=== PATIENT | male | born 1950 | race Caucasian/White ===

== ENCOUNTER 2020-09-10 14:19 | Inpatient (IN) | payer MEDICARE, MEDICAID ==
[~2020-09-10] VITALS: Ht 185.4 cm; Wt 67.1 kg
[2020-09-10] VITALS (7 sets, daily range): BP systolic 85–130; BP diastolic 51–66
[2020-09-10] MEDS ORDERED: RISPERDAL1 MG PO (14:44)
[2020-09-10] MEDS ORDERED: ZOFRAN4 M3 ORAL (14:44)
[2020-09-10] MEDS ORDERED: LIDODERM700 M1 TOPIC (14:44)
[2020-09-10] MEDS ORDERED: FUROSEMIDE40 MG ORAL (14:44)
[2020-09-10] MEDS ORDERED: ACETAMINOPHEN325 M1 ORAL (14:44)
[2020-09-10] MEDS ORDERED: ENOXAPARIN40 MG/0.4 SUBQ (14:44)
[2020-09-10] MEDS ORDERED: DEPAKOTE ER500 MG ORAL (14:44)
--- NOTE | 2020-09-10 15:07 | Emergency Room Report ---
History of Present Illness General Chief Complaint: Fever Source: Patient, Medical Record Present Illness HPI 70-year-old male sent in by nursing facility after increased fever. Was noted to have prior history of chronic dementia as well as debilitation. Patient is reportedly blind. Had been having increased temperature reportedly had been more weak than usual. Was seen by paramedics and noted to be hypotensive. 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 COVID-19 Screening: Negative COVID-19 COVID-19 Testing Source: 09/02/20 Patient History Reviewed Nursing Documentation: PMH: Agreed; PSxH: Agreed Nursing Documentation-PMH Past Medical History: No History, Except For Physical Exam Vital Signs Date Time Temp Pulse Resp B/P (MAP) Pulse Ox O2 Delivery O2 Flow Rate FiO2 09/10/20 14:15 100.0 92 24 91/55 (67) 98 Room Air General Appearance: Chronically Ill Eyes: bilateral eye other - Pupillary dilation ENT: dry mucus membranes Neck: limited range of motion Respiratory: normal inspection, lungs clear Cardiovascular #1: normal inspection, regular rate, rhythm Gastrointestinal: normal inspection, non tender Genitourinary: other - Nontender, Musculoskeletal: decreased range of motion, other - Fractures Neurologic: motor weakness, aphasia Psychiatric: depressed affect Skin: no rash, other - sAcral decubitus ulcer Procedures Critical Care Time Critical Care Time Patient had a critical medical condition of sepsis which untreated could potentially result in life or limb threatening injury. Total critical care time excluding procedures approximately 45 minutes. Medical Decision Making Diagnostic Impression: Primary Impression: Fever Additional Impression: Severe sepsis ER Course Patient presented for increased fever. Differential diagnosis include was not limited to pneumonia, bronchitis, coronavirus infection, urinary tract infection, infected decubitus ulcer among others. Because of complexity of patient's case laboratory tests and imaging studies were ordered. Patient was noted to have potential sources for fever which include UTI and pneumonia. He is noted to be markedly debilitated to baseline. Patient had been sent in from rehab center on . Was noted to have prior history of psychosis and is baseline nonverbal. Patient was given IV fluids as well as IV antibiotics. Patient had normal blood pressure after IV fluids but initial been hypotensive. Patient was started on IV fluids as well as IV antibiotics. Laboratory testing was noted for marked elevation of BUN and creatinine consistent with volume depletion. Patient had markedly elevated white blood count and presumably septic. Unclear source.Dr. Patel Villasenor was contacted for inpatient management. Patient be admitted to the hospital for further evaluation and treatment. This medical record is generated with [employer] user experience designer software. There may be some user experience designer discrepancies related to use of this software Labs Test 09/10/20 15:36 09/10/20 15:57 White Blood Count 20.8 K/UL (4.8-10.8) Red Blood Count 4.92 M/UL (4.70-6.10) Hemoglobin 14.1 G/DL (14.2-18.0) Hematocrit 42.3 % (42.0-52.0) Mean Corpuscular Volume 86 FL (80-99) Mean Corpuscular Hemoglobin 28.7 PG (27.0-31.0) Mean Corpuscular Hemoglobin Concent 33.4 G/DL (32.0-36.0) Red Cell Distribution Width 13.5 % (11.6-14.8) Platelet Count 215 K/UL (150-450) Mean Platelet Volume 8.2 FL (6.5-10.1) Neutrophils (%) (Auto) % (45.0-75.0) Lymphocytes (%) (Auto) % (20.0-45.0) Monocytes (%) (Auto) % (1.0-10.0) Eosinophils (%) (Auto) % (0.0-3.0) Basophils (%) (Auto) % (0.0-2.0) Prothrombin Time 12.1 SEC (9.30-11.50) Prothromb Time International Ratio 1.1 (0.9-1.1) Activated Partial Thromboplast Time 21 SEC (23-33) Sodium Level 148 MMOL/L (136-145) Potassium Level 4.7 MMOL/L (3.5-5.1) Chloride Level 112 MMOL/L (98-107) Carbon Dioxide Level 28 MMOL/L (21-32) Anion Gap 8 mmol/L (5-15) Blood Urea Nitrogen 93 mg/dL (7-18) Creatinine 1.9 MG/DL (0.55-1.30) Estimat Glomerular Filtration Rate 35.3 mL/min (>60) Glucose Level 119 MG/DL (74-106) Lactic Acid Level 2.10 mmol/L (0.4-2.0) Calcium Level 8.9 MG/DL (8.5-10.1) Troponin I 0.000 ng/mL (0.000-0.056) Arterial Blood pH 7.484 (7.350-7.450) Arterial Blood Partial Pressure CO2 30.5 mmHg (35.0-45.0) Arterial Blood Partial Pressure O2 61.8 mmHg (75.0-100.0) Arterial Blood HCO3 22.4 mmol/L (22.0-26.0) Arterial Blood Oxygen Saturation 92.0 % (95-100) Arterial Blood Base Excess 0 (-2-2) Freddy Test Positive EKG Diagnostic Results Rate: normal Rhythm: NSR ST Segments: no acute changes Last Vital Signs Date Time Temp Pulse Resp B/P (MAP) Pulse Ox O2 Delivery O2 Flow Rate FiO2 09/10/20 14:15 100.0 92 24 91/55 (67) 98 Room Air Status: unchanged Disposition: ADMITTED INPATIENT Condition: Serious Yon Jj MD Sep 10, 2020 15:07
[2020-09-10] MEDS ORDERED: Cefepime HCl 2 GM in NS 110 ML IV ONE (15:15)
[2020-09-10] MEDS ORDERED: Vancomycin 1 GM in NS 275 ML IV ONE (15:15)
--- NOTE | 2020-09-10 15:30 | NUR ---
ED Nurse Note: Pt brought in by ambulance from [facility] d/t hypotension and fever. EMS reports 80s/40s and 100.1 fever. Pt is diaphoretic and tahcy on the monitor @ 108. Rectal temp 100 upon arrival. BP 89/52. IV established by EMS and fluids running. Respirations even and unlabored on room air. All other vitals stable as documented. A+Ox0, reacts to painful stimuli, does not follow commands or open eyes. Pt placed on monitor.
[2020-09-10 16:35] LABS: CALCIUM 8.9 MG/DL (8.5-10.1); CREATININE 1.9 MG/DL (0.55-1.30); POTASSIUM 4.7 MMOL/L (3.5-5.1)
[2020-09-10 16:41] LABS: HEMATOCRIT 42.3 % (42.0-52.0); HEMOGLOBIN 14.1 G/DL (14.2-18.0); MEAN CORPUSCULAR VOLUME 86 FL (80-99); PLATELET COUNT 215 K/UL (150-450); RED BLOOD COUNT 4.92 M/UL (4.70-6.10); RED CELL DISTRIBUTION WIDTH 13.5 % (11.6-14.8); WHITE BLOOD COUNT 20.8 K/UL (4.8-10.8)
[2020-09-10 16:47] LABS: INR 1.1 (0.9-1.1)
[2020-09-10] MEDS ORDERED: Acetaminophen 650 MG SUPP RECTAL ONE (17:00)
--- NOTE | 2020-09-10 17:00 | NUR ---
ED Nurse Note: Pt has rectal temp 100.2. ED MD aware. Tylenol supp ordered.
[2020-09-10 17:06] LABS: ALBUMIN 2.8 G/DL (3.4-5.0); ALBUMIN/GLOBULIN RATIO 0.6 (1.0-2.7); BILIRUBIN,TOTAL 0.6 MG/DL (0.2-1.0); CKMB 3.8 NG/ML (0.0-3.6); PHOSPHORUS 5.4 MG/DL (2.5-4.9)
--- NOTE | 2020-09-10 17:16 | NUR ---
ED Nurse Note: reflex lactic sent to lab.
--- NOTE | 2020-09-10 17:16 | NUR ---
ED Nurse Note: unable to get urine specimen at this time. ED MD aware.
--- NOTE | 2020-09-10 17:56 | Diagnostic Imaging Report ---
Indication: Shortness of breath Technique: One view of the chest Comparison: none Findings: There is some atelectasis at the left lung base as well as some consolidation. The pleural spaces are clear. The right lung is clear. The heart size is normal. Impression: Left basilar atelectasis and possible infiltrate. Correlate with clinical findings
--- NOTE | 2020-09-10 19:08 | NUR ---
HAND-OFF: Report given to ARTEMIO Zarco. Pt in stable condition; plan of care endorsed.
--- NOTE | 2020-09-10 19:10 | NUR ---
ED Nurse Note: Report received from ARTEMIO Inman.
--- NOTE | 2020-09-10 19:15 | NUR ---
ED Nurse Note: Patient had BP readings of 73/51 at 1907 and 85/51 at 1912. ERMD notified. Patient connected to media monitor. NSR with stable HR.
--- NOTE | 2020-09-10 19:40 | NUR ---
ED Nurse Note: While ERMD attempting to place central line, patient oxygen saturation dropped to 91/92%. Patient placed on 2L oxygen via NC.
--- NOTE | 2020-09-10 20:10 | NUR ---
ED Nurse Note: JENNA Jj unsuccessful with central line placement at this time.
--- NOTE | 2020-09-10 20:11 | NUR ---
ED Nurse Note: JENNA Jj placed andrade cath without complication. Urine sample obtained and sent to lab.
--- NOTE | 2020-09-10 20:20 | NUR ---
ED Nurse Note: Current BP is 92/62. Will administer 1L NS bolus as verbal ordered by JENNA Jj.
[2020-09-10 20:47] LABS: APPEARANCE,URINE CLOUDY; BILIRUBIN, URINE NEGATIVE (NEGATIVE); GLUCOSE, URINE (UA) NEGATIVE (NEGATIVE); KETONES,URINE 1+ (NEGATIVE); LEUKOCYTE ESTERASE ,URINE 1+ (NEGATIVE); NITRITE,URINE NEGATIVE (NEGATIVE); PH,URINE 5 (4.5-8.0); PROTEIN,URINE 2+ (NEGATIVE); UROBILINOGEN,URINE NORMAL MG/DL (0.0-1.0)
--- NOTE | 2020-09-10 20:50 | NUR ---
ED Nurse Note: Report given to ARTEMIO Mcclain.
--- NOTE | 2020-09-10 20:55 | NUR ---
ED Nurse Note: Patient taken to ICU unit at this time. He is nonverbal, moving extremities. No change in mental status from reported baseline. Patient taken to unit via gurney while connected to laboratory monitor by RN and water pollution control technician. COVID-19 precuations taken. Patient has NS infusing approx 500cc left, transferred to receiving RN. He has no belongings. IVs are patent and intact. Patient is breathing normal and unlabored at this time with stable o2 saturation on 2L oxygen via NC. Vital signs are stable at time of transfer to ICU unit. JENNA Jj is aware of patient BP that remains in the 90's systolic as documented. Receiving RN made aware of patient BP fluctuation. No acute distress or signs of pain. Patient transferred to ICU bed without complication. Continunity of care transferred to ARTEMIO Mcclain.
--- NOTE | 2020-09-10 21:15 | NUR ---
NURSE NOTES: Patient admitted to ICU for Severe Sepsis and PNA. Patient hooked to media monitor and showed NSR, HR in the 70s with pulses present. SpO3 while on NC 3L ranging around 89-95%. Patient is non-verbal does not track, response with painful stimuli, speech pattern is garbled. Patient came in with Peripheral IV catheter right Ac 18g and left wrist 20g. Placed patient on TKO for now. skin alterations noted. Rae catheter noted draining yellow urine with slight sediment noted. Urine cx and blood cx collected in ER and pending, VRE, MRSA and CRE collected in ER and pending, PCR COVID swab collected in ER and pending. Patient placed in Isolation pending COVID swabs. Bed in lowest position, bed alarm engaged, and locked, safety measures checks performed, will continue to monitor
[2020-09-10 21:19] LABS: COLOR,URINE YELLOW
--- NOTE | 2020-09-10 21:45 | NUR ---
NURSE NOTES: patient desats into the 80s. placed patient on venturi mask at 10L/50% FiO2. SpO2 went up to 97-100%. Patients BP is 130/55, HR is 82, RR 14-16.
--- NOTE | 2020-09-10 22:00 | NUR ---
NURSE NOTES: Received admission order from Dr. Villasenor. Patient remains on venturi mask Spo2 above 92%. RR 14-20. Blood pressures have remained stable. Will continue to monitor
[2020-09-11] VITALS (27 sets, daily range): BP systolic 102–142; BP diastolic 48–88
--- NOTE | 2020-09-11 | NUR ---
NURSE NOTES: Repositioned and performed oral care. Vitals remains stable 99.1F rectal temp. NS at 100ml hung. Abx given.
[2020-09-11] MEDS: Piperacillin/Tazobactam 3.375 GM in NS 110 ML IVPB SCH ×3 (01:31→17:38)
--- NOTE | 2020-09-11 02:00 | NUR ---
NURSE NOTES: NGT inserted, verified placement by two RNS, LEXY ordered for further verification. Patient remains on venturi mask. Blood pressure within normal limits. NSR on the monitor. Pulses present. Patient remains venturi mask at 50% FiO2. Patient remains passive, non-verbal, garbled speech. AAOX0-1.
--- NOTE | 2020-09-11 02:00 | NUR ---
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
[2020-09-11] MEDS: Depakote 125mg Sprinkles NG SCH ×2 (03:00→21:00)
--- NOTE | 2020-09-11 04:00 | NUR ---
NURSE NOTES: Bed bath given, L FA 18g inserted, labs drawn, remains on venturi mask 50% FIo2. NAD at this time. Repositioned and given oral care. Vitals remains stable,. Will continue to monitor.
--- NOTE | 2020-09-11 04:45 | Consultation ---
DATE OF CONSULTATION: 09/10/2020 CARDIOLOGY CONSULTATION CONSULTING PHYSICIAN: Madi Rios MD. REQUESTING PHYSICIAN: Jason Layne MD. REASON FOR CONSULTATION: Shock. HISTORY OF PRESENT ILLNESS: This 70-year-old male was referred to the emergency room with fevers. He was noted to be hypotensive. Cardiology consultation has been requested. History is obtained from records. PAST MEDICAL HISTORY: Includes psychiatric disorder, dementia and blindness. ALLERGIES: None known. MEDICATIONS: Reviewed and reconciled. FAMILY HISTORY: None known. SOCIAL HISTORY: No record of smoking or alcohol. No substance abuse. Resides at a alf facility. PHYSICAL EXAMINATION: VITAL SIGNS: Blood pressure 91/55, heart rate 92, respiratory rate 24, temperature 100, oxygen saturation on room air 98%. HEENT: Conjunctivae pink. Oropharynx clear. Mucous membranes dry. NECK: Supple. No adenopathy. LUNGS: Rales on the right. CARDIAC: Regular rhythm and rate. Normal S1, S2 with no murmur. ABDOMEN: Soft and nontender. EXTREMITIES: No edema. There is report of a sacral decubitus from nursing staff. NEUROLOGIC: Reveals blunted affect. The patient is withdrawn. LABORATORY AND DIAGNOSTIC DATA: Chest x-ray reveals right-sided infiltrate. EKG with sinus rhythm and no acute pathology. Urinalysis with too numerous to count red cells. Troponin 0. Sodium 148, potassium 4.7, chloride 112, bicarb 28, BUN 93, creatinine 1.9, lactic acid 2.1. White count 20.8, hemoglobin 14.1. IMPRESSION: 1. Sepsis. 2. Shock. 3. Hypovolemia. 4. Dehydration. 5. Possible urinary tract infection. 6. Healthcare-associated pneumonia. 7. Hypernatremia. 8. Acute kidney injury. 9. Critical and guarded. PLAN: Cardiac monitoring. Volume resuscitation with saline. Once euvolemic, hypotonic, fluids will be given. Pancultured. Broad-spectrum antimicrobials. No diuretics for now. Hold psychiatric therapy to avoid over-sedation. DVT prophylaxis. Followup metabolic profile. Further recommendations will follow. Madi Rios M.D. : KILEY/NA JOB#: [id number] CC:
--- NOTE | 2020-09-11 04:45 | Diagnostic Imaging Report ---
EXAM: XR Abdomen, 2 Views CLINICAL HISTORY: NGT TECHNIQUE: Frontal view of the abdomen/pelvis with upright view of the abdomen. COMPARISON: No relevant prior studies available. FINDINGS/IMPRESSION: Enteric tube in place with the tip in the gastric lumen. .
[2020-09-11 05:47] LABS: HEMATOCRIT 37.1 % (42.0-52.0); MEAN CORPUSCULAR VOLUME 90 FL (80-99); PLATELET COUNT 171 K/UL (150-450); RED BLOOD COUNT 4.11 M/UL (4.70-6.10); RED CELL DISTRIBUTION WIDTH 13.6 % (11.6-14.8); WHITE BLOOD COUNT 20.1 K/UL (4.8-10.8)
--- NOTE | 2020-09-11 06:00 | NUR ---
NURSE NOTES: Patient repositioned and given oral care. Vitals remains stable and patient remains afebrile. SpO2 at 100% RR 16. PAtient slightly restless, non-labored breathing, normal breathing pattern
[2020-09-11 06:11] LABS: ALBUMIN 2.3 G/DL (3.4-5.0); ALBUMIN/GLOBULIN RATIO 0.6 (1.0-2.7); BILIRUBIN,TOTAL 0.5 MG/DL (0.2-1.0); CALCIUM 7.9 MG/DL (8.5-10.1); CREATININE 1.3 MG/DL (0.55-1.30); POTASSIUM 3.6 MMOL/L (3.5-5.1)
--- NOTE | 2020-09-11 07:25 | NUR ---
NURSE NOTES: Patient received from ARTEMIO Mcclain. Pt is awake, opening eyes spontaneously, speech is garbled and incomprehensible. SR on bus driver/monitor. Pt on a venturi mask 50% 10L. Pt has a Rt Nares NGT, currently NPO. Pt has a andrade catheter draining with gravity to urometer. PIV Rt FA #20g and Lt FA #18g running 1/2 NS @ 100mL/hr. 2point wrist restraints remain in place for safety. Side rails upx2, call light within reach, bed low and locked.
[2020-09-11] MEDS: Vancomycin 1gm in D5W 275ml IVPB SCH (08:25)
[2020-09-11] MEDS: Heparin 5000 units/ml inj SUBQ SCH ×2 (08:25→21:00)
[2020-09-11] MEDS: Pantoprazole Inj IVP SCH (08:25)
[2020-09-11] MEDS ORDERED: Varibar Honey 250ml MC PRN (08:30)
[2020-09-11] MEDS ORDERED: Varibar Pudding 230ml MC PRN (08:30)
[2020-09-11] MEDS ORDERED: Varibar Thin Liquid powder 148gm MC PRN (08:30)
[2020-09-11] MEDS ORDERED: Varibar Nectar 240ml MC PRN (08:30)
--- NOTE | 2020-09-11 09:00 | NUR ---
NURSE NOTES: Dr Villasenor at bedside assessing pt. Updated him on pt's current condition.
--- NOTE | 2020-09-11 09:01 | NUR ---
NURSE NOTES: Dr Villasenor made aware of high sodium level. No new orders given at this time.
--- NOTE | 2020-09-11 10:50 | NUR ---
NURSE NOTES: Dr Collins at bedside assessing pt. Updated her on pt's current condition.
--- NOTE | 2020-09-11 11:12 | NUR ---
NURSE NOTES:WOUND ASSESSMENT PATIENT RESPONSIVE WHEN REPOSITIONED BUT UNABLE TO ASSIST NOTED SCABS TO LEFT ARM. NO DRAINAGE. BILATERAL BRUISING NOTED ON ARMS AND HANDS. COCCYX-DTI MEASURES 4.3X2.5CM. DARK PURPLE IN COLOR. RECOMMEND-CLEAN WITH SALINE, PAT DRY AND APPLY CALAZINE. COVER WITH OPTIFOAM DRESSING. REPLACE EVERY 3 DAYS OR NEEDED LEFT ISCHIUM- STAGE I PRESSURE ULCER MEASURES 4.5X1.7CM. NON-BLANCHABLE ERYTHEMA. RECOMMEND- APPLY CALAZINE AND COVER WITH OPTIFOAM DRESSING. REPLACE EVERY 7 DAYS. ALSO RECOMMEND- REPOSITION AT LEAST EVERY 2 HOURS OR TOLERATED. ELEVATE HEELS WITH PILLOWS CONTINUE WOUND PREVENTION PROTOCOLS
--- NOTE | 2020-09-11 11:15 | NUR ---
NURSE NOTES: Pt seen by wound care nurse.
--- NOTE | 2020-09-11 12:28 | NUR ---
SALES REPRESENTATIVE SUPERVISOR NOTE This SW is unable to obtain psychosocial information from pt. PT is from [facility]. SW left a vm to pt's emergency contact, Lauren Gomez [phone] for call back.
--- NOTE | 2020-09-11 12:30 | NUR ---
NURSE NOTES: Pt turned and repositioned. No distress noted. Pt remains on a venturi mask 50%.
--- NOTE | 2020-09-11 14:15 | Consultation ---
DATE OF CONSULTATION: 09/11/2020 INFECTIOUS DISEASE CONSULTATION CONSULTING PHYSICIAN: Martha Collins MD. REFERRING PHYSICIAN: Patel Villasenor MD. REASON FOR CONSULTATION: Fever. HISTORY OF PRESENTING ILLNESS: This is a 70-year-old gentleman with history of dementia and blindness, who comes in with fevers and he was found to be hypotensive. An Infectious Diseases consultation has been obtained for possible sepsis and fever. PAST MEDICAL HISTORY: 1. Psychiatry disorder. 2. Dementia. 3. Blindness. SOCIAL HISTORY: No history of smoking, alcohol, or drug use. FAMILY HISTORY: Unknown. REVIEW OF SYSTEMS: Unable to obtain currently. MEDICATIONS: As an inpatient, he is on subcutaneous heparin, Protonix, IV vancomycin, Depakote, Zosyn, Mylanta, Zofran, and Tylenol. ALLERGIES: No known drug allergies. PHYSICAL EXAMINATION: VITAL SIGNS: Temperature 98.5, T-max of 100.1, pulse 64, respiratory rate 16, blood pressure 111/88. O2 saturation of 100% on a Venturi mask of 12 liters of oxygen. HEENT: Pupils are equally reactive to light and accommodation. Mouth appears clean without thrush. NECK: Supple. No adenopathy. No JVD. CARDIOVASCULAR: Regular rate and rhythm. No murmurs. LUNGS: Clear to auscultation bilaterally. No crackles. No wheezes. ABDOMEN: Soft, nontender. No organomegaly. EXTREMITIES: No cyanosis, no clubbing, no edema. LABORATORY DATA: White count 20.1, hemoglobin 12, hematocrit 37.1, MCV 90, platelet count of 171,000, with neutrophils of 83%. Sodium 152, potassium 3.6, chloride 119, bicarb 25, BUN 79, creatinine 1.3. Glucose 104. Calcium 7.9. Total bilirubin 0.5. AST 28, ALT 19, alkaline phosphatase 60. Beta-natriuretic peptide 211. Total protein 6.3, albumin 2.3. UA is showing 5 to 10 white cells. COVID-19 test is negative. Chest x-ray is showing left base atelectasis and possible infiltrate. ASSESSMENT: This is a 70-year-old gentleman with history of psychiatric disorder and dementia, who comes in and is found to have fevers and has, 1. Pneumonia. His COVID-19 test is negative. 2. Dementia. 3. Leukocytosis. 4. Urinary tract infection. PLAN: 1. Continue IV vancomycin and Zosyn for now. 2. We will follow up cultures and adjust antibiotics accordingly. I would like to thank Dr. Harris for this consultation. Martha Collins M.D. DR: WIN JOB#: [id number] CC:
--- NOTE | 2020-09-11 14:30 | NUR ---
NURSE NOTES: Left message for Dr Collins to inform her of blood culture results. 2 out of 4 bottles gram positive cocci.
--- NOTE | 2020-09-11 16:23 | Diagnostic Imaging Report ---
Indication: Shortness of breath Technique: One view of the chest Comparison: 4 hours earlier Findings: There is suggestion of some left infrahilar infiltrate. This may be slightly increased from the prior study. The lungs and pleural spaces are otherwise clear. Impression: Slightly increased left infrahilar infiltrate
--- NOTE | 2020-09-11 16:30 | NUR ---
NURSE NOTES: Pt turned and repositioned. No distress noted.
--- NOTE | 2020-09-11 16:45 | History and Physical Report ---
DATE OF ADMISSION: 09/10/2020 REASON FOR ADMISSION: Shock, hypotension, and possible sepsis. HISTORY OF PRESENT ILLNESS: The patient is a 70-year-old male brought into the emergency room with fever. The patient was noted to be initially hypotensive, but this has improved. The patient overnight had vital signs improved with IV hydration. The patient has dementia, poor ability to give any history at this time. The patient apparently is a intermediate patient and is now admitted, was seen by Cardiology. [facility] medications will be resumed. PAST MEDICAL HISTORY: Notable for possible congestive heart failure, psychiatric history, underlying dementia. MEDICATIONS: Reviewed. ALLERGIES: Reviewed. SOCIAL HISTORY: [facility] patient. Further history is difficult to obtain. PHYSICAL EXAMINATION: GENERAL: The patient is a well-developed male, somewhat confused, but appears to be stable and resting. VITAL SIGNS: Blood pressure 120/77, pulse 70, temperature 98.5, respirations 15, O2 sats 100%. HEENT: Negative. NECK: Supple. No adenopathy. LUNGS: Moderate breath sounds. No rhonchi or wheezes. CARDIAC: S1 and S2. Regular rate and rhythm without murmurs. ABDOMEN: Soft, nontender, nondistended. EXTREMITIES: No cyanosis, clubbing, or edema. NEUROLOGICAL: Confused. LABORATORY DATA: Reviewed. White count 20, hemoglobin 12, platelets normal. Chemistry noted sodium of 142, BUN 39, creatinine 1.3, albumin is 2.3. IMPRESSION: 1. Acute renal failure. 2. Hypernatremia. 3. Leukocytosis. 4. Possible sepsis. 5. Hypotension. 6. Dementia. 7. Acute on chronic encephalopathy. RECOMMENDATIONS: Supportive care. IV hydration, hypotonic fluids, IV antibiotics. ID evaluation. Cardiology evaluation. Renal evaluation. Monitor clinically for further change in interventions. Stabilize and discharge the patient back to the intermediate when improved. Patel Villasenor M.D. DR: Yusuf JOB#: [id number] CC:
--- NOTE | 2020-09-11 16:45 | Consultation ---
DATE OF CONSULTATION: 09/11/2020 NEPHROLOGY CONSULTATION CONSULTING PHYSICIAN: Tess Schrader MD ATTENDING PHYSICIAN: Patel Villasenor MD REASON FOR CONSULTATION: Elevated BUN and creatinine. HISTORY OF PRESENT ILLNESS: This is a 70-year-old man with dementia, [facility] and [facility]. The patient is in ICU. I am asked to see the patient for elevation of BUN and creatinine. PAST MEDICAL HISTORY: 1. Organic brain syndrome. 2. Blindness. MEDICATIONS: IV fluids half NS, cefepime, metronidazole IV, Zosyn IV, IV vancomycin, Tylenol p.r.n., Depakote, Lasix, subcutaneous heparin, Mylanta p.r.n., Zofran p.r.n., Protonix, Risperdal. ALLERGIES: No known drug allergies. FAMILY HISTORY: Unable to obtain due to mental status. SOCIAL HISTORY: Unable to obtain due to mental status. REVIEW OF SYSTEMS: Unable to obtain due to mental status. PHYSICAL EXAMINATION: GENERAL: This is an elderly cachectic male, who is in no acute distress. VITAL SIGNS: Blood pressure 136/84, pulse 72 regular, respirations 18, temperature 98. HEENT: The head is normocephalic and atraumatic. The patient is blind. NECK: Supple. Trachea midline. There was no lymphadenopathy or thyromegaly. LUNGS: Clear to auscultation and percussion. HEART: Regular rate and rhythm without rubs, murmurs, or gallops. ABDOMEN: Soft and nontender. Bowel sounds were active. EXTREMITIES: No clubbing, cyanosis, or edema. NEUROLOGICAL: He is confused. There were no gross focal findings. LABORATORY AND ANCILLARY DATA: CBC shows white count 20,100, otherwise within normal limits. Serum chemistry, sodium 152, potassium 3.6, BUN 79, creatinine 1.3. Urinalysis, many bacteria, too numerous to count red blood cells. Abdominal x-ray showing an NG tube in place. Chest x-ray, left basilar atelectasis, possible infiltrates. ASSESSMENT: 1. Hypernatremia. 2. Pneumonia. 3. Organic brain syndrome. 4. Blindness. PLAN: 1. Continue IV fluids, change to hypotonic fluids. 2. Continue current therapy. Thank you, Dr. Villasenor, for letting me to participate in the care of this patient. Tess Schrader M.D. DR: MAKSIM JOB#: [id number] CC:
--- NOTE | 2020-09-11 17:30 | NUR ---
NURSE NOTES: Bedside swallow eval attempted. Pt not able to follow commands. Pt to remain NPO
[2020-09-11] MEDS: D5W w/KCl 20mEq 1,000 ML IV SCH (17:36)
--- NOTE | 2020-09-11 17:51 | NUR ---
Speech Pathology Note (Bedside Dysphagia Evaluation) [facility] Original: 08/20/2020 Diet Pureed and thin liquid. Brief Note: Mr. Roman is a 70 year old male B[facility] to ED [facility] 09/10/2020 around 14:00 due to fever. He was found to be hypotensive 91/55 (67), Temp: 100.0, leukocytosis 20.8k and subsequently transferred to ICU for septic shock. The blood culture is reportedly positive for gram positive cocci. NG tube was placed, KUB confirmed the placement to day. Pt is clinically stable with leukocytosis 20.1, improved BUN and creatine, stable hemodynamic without vasopressor. Findings: Mr. Roman is disoriented. He does ot follow commands at this time. Oral cavity is noted to be dried blood concretion likely from NG trauma. No active bleeding site is seen. Due to his level f alertness, already NG tube is in placed, PO trial was not done at this time. Interpretation: 1. Aspiration risk due to low level of alertness with sepsis 2. Probable NG trauma Plan: 1. NPO for now 2. oral care SANDBLASTER STONE will follow routinely to return to PO readiness Romario Abraham
--- NOTE | 2020-09-11 18:00 | NUR ---
NURSE NOTES: Pt fully cleaned and linens changed. BM noted. Pt currently on 2L NC. O2sat 100%
--- NOTE | 2020-09-11 18:29 | Consultation ---
History of Present Illness General Date patient seen: Sep 11, 2020 Reason for Hospitalization: Fever Present Illness HPI 70M presented from care facility with fevers, leukocytosis, and hypotensive noted to have abnormal labs and multiple skin abrasions, scabs, and skin concerns. BMI 19, alb low. Patient presented from facility on admission with above and surgery called to evaluate and assist with care. patient currently in ICU on fluids, abx, and support. no n/v. fevers resolved Allergies: Coded Allergies: No Known Allergies (Unverified , 09/10/20) COVID-19 Screening Contact w/high risk pt: Yes Experienced COVID-19 symptoms?: Yes Coronavirus symptoms experienc: Fever (T>100.4F or >38C), Chills, Shortness of Breath, Muscle or Body Aches Medication History Scheduled Divalproex Sodium* (Depakote Er*), 1,000 MG ORAL BEDTIME, (Reported) Enoxaparin Sodium (Enoxaparin Sodium*), 40 MG SUBQ DAILY, (Reported) Furosemide* (Lasix*), 40 MG ORAL DAILY, (Reported) Lidocaine Patch* (Lidoderm Patch*), 1 PATCH TOPIC DAILY, (Reported) Risperidone* (Risperdal*), 1 MG PO DAILY, (Reported) Scheduled PRN Acetaminophen* (Acetaminophen 325MG Tablet*), 650 MG ORAL Q4H PRN for fever, (Reported) Ondansetron* (Zofran*), 4 MG ORAL Q6H PRN for Nausea & Vomiting, (Reported) Patient History Limited by: age, medical condition History Provided By: Medical Record, PMD Healthcare decision maker Resuscitation status Advanced Directive on File Past Medical/Surgical History Past Medical/Surgical History: (1) Decubitus skin ulcer (2) Malnutrition (3) Open upper arm wound (4) Fever (5) Severe sepsis Review of Systems Review of Symptoms General ROS: no weight loss or fever Psychological ROS: no depression or mood changes, no memory loss Ophthalmic ROS: no visual changes or eye irritation ENT ROS: no nasal congestion, hearing loss, dizziness Allergy and Immunology ROS: no allergic symptoms or urticaria Hematological and Lymphatic ROS: no swollen glands, unusual bleeding or bruising Endocrine ROS: no polyuria, polydipsia, weight changes, temperature intolerance Respiratory ROS: no cough, shortness of breath, or wheezing Cardiovascular ROS: no chest pain or dyspnea on exertion Gastrointestinal ROS: denies abdominal pain, bright red blood in stool. Musculoskeletal ROS: no myalgias or arthralgias Neurological ROS: no TIA or stroke symptoms Dermatological ROS: no new or changing skin lesions, rashes or pruritis Physical Exam Physical Exam General appearance: cooperative, no distress, appears stated age Head: Normocephalic, without obvious abnormality, atraumatic Eyes: conjunctivae/corneas clear. PERRL, EOM's intact. Fundi benign Throat: Lips, mucosa, and tongue normal. Teeth and gums normal Neck: supple, symmetrical, trachea midline, no adenopathy, thyroid: not enlarged, symmetric, no tenderness/mass/nodules, no carotid bruit and no JVD Lungs: clear to auscultation bilaterally Heart: regular rate and rhythm, S1, S2 normal, no murmur, click, rub or gallop Abdomen: soft, non-tender. Bowel sounds normal. No masses, no organomegaly Extremities: extremities see below Pulses: 2+ and symmetric Skin: Skin see below Neurologic: Grossly normal Last 24 Hour Vital Signs Date Time Temp Pulse Resp B/P (MAP) Pulse Ox O2 Delivery O2 Flow Rate FiO2 09/11/20 17:00 68 19 117/78 (91) 100 09/11/20 16:30 64 18 107/74 (85) 100 09/11/20 16:00 Venturi Mask 10.0 09/11/20 16:00 67 09/11/20 16:00 99.1 65 16 123/71 (88) 100 09/11/20 15:00 72 18 136/84 (101) 100 09/11/20 14:30 67 15 121/76 (91) 100 09/11/20 14:00 65 16 122/71 (88) 100 09/11/20 13:00 65 17 122/79 (93) 100 09/11/20 12:00 66 09/11/20 12:00 98.5 71 17 123/72 (89) 100 09/11/20 12:00 Venturi Mask 10.0 09/11/20 11:00 64 16 111/88 (96) 100 09/11/20 10:00 67 15 113/68 (83) 100 09/11/20 09:00 79 18 131/73 (92) 100 11/24/20 08:27 100 Venturi Mask 12.0 50 09/11/20 08:00 Venturi Mask 10.0 09/11/20 08:00 98.5 70 15 120/77 (91) 100 09/11/20 08:00 70 09/11/20 07:00 71 16 117/62 (80) 100 09/11/20 06:00 75 16 112/62 (79) 100 09/11/20 05:00 70 21 102/73 (83) 100 09/11/20 04:00 79 09/11/20 04:00 98.4 76 16 115/59 (77) 100 09/11/20 04:00 Venturi Mask 10.0 09/11/20 03:00 75 18 123/67 (85) 100 09/11/20 02:00 65 15 142/78 (99) 100 09/11/20 01:00 68 13 103/48 (66) 98 09/11/20 00:00 Venturi Mask 10.0 09/11/20 00:00 99.1 71 24 106/56 (73) 99 09/11/20 00:00 62 09/10/20 23:00 15 103/56 (72) 100 09/10/20 22:03 75 18 130/55 (80) 96 09/10/20 21:28 84 09/10/20 21:27 Venturi Mask 10.0 09/10/20 21:15 99.0 80 20 118/66 (83) 95 09/10/20 20:55 97.1 83 20 94/59 97 Nasal Cannula 2.0 09/10/20 20:20 97.2 80 17 92/62 98 Nasal Cannula 2.0 09/10/20 20:17 97 Nasal Cannula 2.0 28 09/10/20 19:15 85 20 85/51 97 Room Air Intake and Output 09/10/20 09/11/20 19:00 07:00 Intake Total 3060.0 ml Output Total 860 ml Balance 2200.0 ml Intake Oral 0 ml Free Water 50 ml IV Total 3010.0 ml Output Urine Total 860 ml Laboratory Tests Test 09/10/20 20:05 09/11/20 03:45 09/11/20 08:27 Urine Color Yellow Urine Appearance Cloudy Urine pH 5 (4.5-8.0) Urine Specific [place] 1.025 (1.005-1.035) Urine Protein 2+ (NEGATIVE) H Urine Glucose (UA) Negative (NEGATIVE) Urine Ketones 1+ (NEGATIVE) H Urine Blood 5+ (NEGATIVE) H Urine Nitrite Negative (NEGATIVE) Urine Bilirubin Negative (NEGATIVE) Urine Urobilinogen Normal MG/DL (0.0-1.0) Urine Leukocyte Esterase 1+ (NEGATIVE) H Urine RBC Tntc /HPF (0 - 0) H Urine WBC 5-10 /HPF (0 - 0) H Urine Squamous Epithelial Cells None /LPF (NONE/OCC) Urine Bacteria Many /HPF (NONE) H White Blood Count 20.1 K/UL (4.8-10.8) H Red Blood Count 4.11 M/UL (4.70-6.10) L Hemoglobin 12.0 G/DL (14.2-18.0) L Hematocrit 37.1 % (42.0-52.0) L Mean Corpuscular Volume 90 FL (80-99) Mean Corpuscular Hemoglobin 29.2 PG (27.0-31.0) Mean Corpuscular Hemoglobin Concent 32.4 G/DL (32.0-36.0) Red Cell Distribution Width 13.6 % (11.6-14.8) Platelet Count 171 K/UL (150-450) Mean Platelet Volume 9.2 FL (6.5-10.1) Neutrophils (%) (Auto) % (45.0-75.0) Lymphocytes (%) (Auto) % (20.0-45.0) Monocytes (%) (Auto) % (1.0-10.0) Eosinophils (%) (Auto) % (0.0-3.0) Basophils (%) (Auto) % (0.0-2.0) Differential Total Cells Counted 100 Neutrophils % (Manual) 83 % (45-75) H Lymphocytes % (Manual) 7 % (20-45) L Monocytes % (Manual) 6 % (1-10) Eosinophils % (Manual) 0 % (0-3) Basophils % (Manual) 0 % (0-2) Band Neutrophils 4 % (0-8) Platelet Estimate Adequate Platelet Morphology Normal Hypochromasia 1+ Sodium Level 152 MMOL/L (136-145) H Potassium Level 3.6 MMOL/L (3.5-5.1) Chloride Level 119 MMOL/L (98-107) H Carbon Dioxide Level 25 MMOL/L (21-32) Anion Gap 9 mmol/L (5-15) Blood Urea Nitrogen 79 mg/dL (7-18) H Creatinine 1.3 MG/DL (0.55-1.30) Estimat Glomerular Filtration Rate 54.7 mL/min (>60) Glucose Level 104 MG/DL (74-106) Lactic Acid Level 1.40 mmol/L (0.4-2.0) Calcium Level 7.9 MG/DL (8.5-10.1) L Total Bilirubin 0.5 MG/DL (0.2-1.0) Aspartate Amino Transf (AST/SGOT) 28 U/L (15-37) Alanine Aminotransferase (ALT/SGPT) 19 U/L (12-78) Alkaline Phosphatase 60 U/L (46-116) Troponin I 0.001 ng/mL (0.000-0.056) Pro-B-Type Natriuretic Peptide 211 pg/mL (0-125) H Total Protein 6.3 G/DL (6.4-8.2) L Albumin 2.3 G/DL (3.4-5.0) L Globulin 4.0 g/dL Albumin/Globulin Ratio 0.6 (1.0-2.7) L Thyroid Stimulating Hormone (TSH) 1.568 uiU/mL (0.358-3.740) Random Vancomycin Level 9.6 ug/mL Arterial Blood pH 7.482 (7.350-7.450) Arterial Blood Partial Pressure CO2 30.9 mmHg (35.0-45.0) L Arterial Blood Partial Pressure O2 123.5 mmHg (75.0-100.0) H Arterial Blood HCO3 22.6 mmol/L (22.0-26.0) Arterial Blood Oxygen Saturation 98.5 % (95-100) Arterial Blood Base Excess -0.1 (-2-2) Freddy Test Positive Height (Feet): 5 Height (Inches): 7.00 Weight (Pounds): 121 Medications Current Medications Medications (Trade) Dose Ordered Sig/Aleksander Route PRN Reason Start Time Stop Time Status Last Admin Dose Admin Acetaminophen (Tylenol) 650 mg Q4H PRN NG Temp >100.5 09/10/20 23:15 10/10/20 23:14 Al Hydroxide/Mg Hydroxide (Mylanta) 30 ml Q4H PRN NG Constipation 09/11/20 00:15 10/10/20 23:14 Barium Sulfate (Varibar Honey) 250 ml NOW PRN RAD 09/11/20 08:30 09/14/20 08:21 Barium Sulfate (Varibar [place]) 240 ml NOW PRN RAD 09/11/20 08:30 09/14/20 08:21 Barium Sulfate (Varibar Pudding) 230 ml NOW PRN RAD 09/11/20 08:30 09/14/20 08:21 Barium Sulfate (Varibar Thin Liquid powder) 148 gm NOW PRN RAD 09/11/20 08:30 09/14/20 08:21 Dextrose/ Electrolytes 1,000 ml @ 75 mls/hr [id number] IV 09/11/20 17:00 10/11/20 16:59 09/11/20 17:36 Divalproex Sodium (Depakote Sprinkles) 1,000 mg BEDTIME NG 09/11/20 03:00 10/11/20 02:59 09/11/20 03:00 Heparin Sodium (Porcine) (Heparin 5000 units/ml) 5,000 units EVERY 12 HOURS SUBQ 09/11/20 09:00 10/26/20 08:59 09/11/20 08:25 Ondansetron HCl (Zofran) 4 mg Q6H PRN IVP Nausea & Vomiting 09/10/20 23:15 10/10/20 23:14 Pantoprazole (Protonix) 40 mg DAILY IVP 09/11/20 09:00 10/11/20 08:59 09/11/20 08:25 Piperacillin Sod/ Tazobactam Sod 3.375 gm/Sodium Chloride 110 ml @ 27.5 mls/hr Q8H IVPB 09/11/20 02:00 09/18/20 01:59 09/11/20 17:38 Vancomycin HCl (Vanco pharmacy to dose) 1 ea DAILY PRN MISC Per rx protocol 09/10/20 23:15 10/10/20 23:14 Vancomycin HCl 1 gm/Dextrose 275 ml @ 183.708 mls/hr Q24H IVPB 09/11/20 08:00 09/16/20 07:59 09/11/20 08:25 Assessment/Plan Problem List: (1) Fever ICD Codes: R50.9 - Fever, unspecified SNOMED: 886654943 (2) Decubitus skin ulcer Assessment & Plan: Patient identified on admission to have multiple scabs on the left arm. mild open scabs with eschar. no drainage. no significant cellulitis. bruising no bilateral extremities noted. no signs of abuse. likely from agitation Sacral coccygeal noted to have a DTI 4.3X2.5CM. which is dark purple . RECOMMEND-CLEAN WITH SALINE, PAT DRY AND APPLY CALAZINE. COVER WITH OPTIFOAM DRESSING. REPLACE EVERY 3 DAYS OR NEEDED LEFT ISCHIUM- STAGE I PRESSURE ULCER MEASURES 4.5X1.7CM. NON-BLANCHABLE ERYTHEMA. RECOMMEND- APPLY CALAZINE AND COVER WITH OPTIFOAM DRESSING. REPLACE EVERY 7 DAYS. Turn q2h off load pressure with pillow off load heels nutritional optimization NEUROLOGY PROFESSOR eval will follow with recs thank you ICD Codes: L89.90 - Pressure ulcer of unspecified site, unspecified stage SNOMED: 605063315 (3) Malnutrition Assessment & Plan: Mr. Roman is a 70 year old male [place] [facility] [place] 14:00 due to fever. He was found to be hypotensive 91/55 (67), Temp: 100.0, leukocytosis 20.8k and subsequently transferred to ICU for septic shock. The blood culture is reportedly positive for gram positive cocci. NG tube was placed, KUB confirmed the placement to day. Pt is clinically stable with leukocytosis 20.1, improved BUN and creatine, stable hemodynamic without vasopressor. Findings: Mr. Roman is disoriented. He does ot follow commands at this time. Oral cavity is noted to be dried blood concretion likely from NG trauma. No active bleeding site is seen. Due to his level f alertness, already NG tube is in placed, PO trial was not done at this time. Interpretation: 1. Aspiration risk due to low level of alertness with sepsis 2. Probable NG trauma Plan: 1. NPO for now 2. oral care ICD Codes: E46 - Unspecified protein-calorie malnutrition SNOMED: 86580635 (4) Severe sepsis ICD Codes: A41.9 - Sepsis, unspecified organism; R65.20 - Severe sepsis without septic shock SNOMED: 22715404 (5) Open upper arm wound ICD Codes: S41.109A - Unspecified open wound of unspecified upper arm, initial encounter SNOMED: 194974685 Aubrey Gutierrez Sep 11, 2020 18:29
--- NOTE | 2020-09-11 19:00 | NUR ---
NURSE HAND-OFF REPORT: Latest Vital Signs: Temperature 99.1 , Pulse 59 , B/P 117 /61 , Respiratory Rate 20 , O2 SAT 100 , Nasal Cannula, O2 Flow Rate 2.0 . Vital Sign Comment: EKG Rhythm: Sinus Rhythm Rhythm change?: N MD Notified?: - MD Response: Latest Schultz Fall Score: 50 Fall Risk: High Risk Safety Measures: Call light Within Reach, Bed Alarm Zone 1, Side Rails Side Rails x3, Bed position Low and Locked. Fall Precautions: Yellow Socks Door Sign Patient Fall Education Report given to ARTEMIO Mcclain.
--- NOTE | 2020-09-11 22:00 | NUR ---
NURSE NOTES: Patient assessed and was provided with oral care. Patient was repositioned and remains NSR on hall monitor. With pulses present. Patient remains on nasal cannula and is saturating at 97%. No respiratory distress observed. Blood pressure is with in good ranges. Patient neuro status remains the same. Patient speech is garbled. Some is understandable and some is not. ROM offered. Safety measures in check and will continue to monitor.
--- NOTE | 2020-09-11 23:00 | NUR ---
NURSE NOTES: Patient glucoses noted to be 105, patient has not reached BS goal, will move up by one algorithm, patient now in Algorithm 4. Patient is at 1units/hr. Addendum: 09/11/20 at 2352 by CHUCK SANCHEZ RN disregard this note
--- NOTE | 2020-09-11 23:52 | NUR ---
TRANSFER TO FLOOR: Patient transferred to Telemetry room 203-1 per . Report given to Scarlet ULLOA Patient trnafered without an inicident, Vital signs stable before transfer.
--- NOTE | 2020-09-12 00:10 | Cardiology Progress Note ---
Subjective DATE OF SERVICE: Sep 11, 2020 Responded to fluid challenges last nite; did not require pressors. Labs remain grossly abnormal with elev WBC and Na+. No SOB. Objective Last 24 Hour Vital Signs Date Time Temp Pulse Resp B/P (MAP) Pulse Ox O2 Delivery O2 Flow Rate FiO2 09/11/20 23:00 66 15 105/67 (80) 99 09/11/20 22:00 78 16 118/73 (88) 99 09/11/20 21:00 68 20 117/67 (84) 100 09/11/20 20:00 61 09/11/20 20:00 98.7 62 19 112/69 (83) 100 09/11/20 20:00 Nasal Cannula 2.0 09/11/20 19:31 100 Nasal Cannula 2.0 28 09/11/20 19:00 59 16 106/67 (80) 100 09/11/20 19:00 59 16 106/67 (80) 100 09/11/20 18:30 59 20 117/61 (79) 100 09/11/20 18:00 66 18 124/85 (98) 100 09/11/20 17:00 68 19 117/78 (91) 100 09/11/20 16:30 64 18 107/74 (85) 100 09/11/20 16:00 Nasal Cannula 2.0 09/11/20 16:00 67 09/11/20 16:00 99.1 65 16 123/71 (88) 100 09/11/20 15:00 72 18 136/84 (101) 100 09/11/20 14:30 67 15 121/76 (91) 100 09/11/20 14:00 65 16 122/71 (88) 100 09/11/20 13:00 65 17 122/79 (93) 100 09/11/20 12:00 66 09/11/20 12:00 98.5 71 17 123/72 (89) 100 09/11/20 12:00 Venturi Mask 10.0 09/11/20 11:00 64 16 111/88 (96) 100 09/11/20 10:00 67 15 113/68 (83) 100 09/11/20 09:00 79 18 131/73 (92) 100 09/11/20 08:27 100 Venturi Mask 12.0 50 09/11/20 08:00 Venturi Mask 10.0 09/11/20 08:00 98.5 70 15 120/77 (91) 100 09/11/20 08:00 70 09/11/20 07:00 71 16 117/62 (80) 100 09/11/20 06:00 75 16 112/62 (79) 100 09/11/20 05:00 70 21 102/73 (83) 100 09/11/20 04:00 79 09/11/20 04:00 98.4 76 16 115/59 (77) 100 09/11/20 04:00 Venturi Mask 10.0 09/11/20 03:00 75 18 123/67 (85) 100 09/11/20 02:00 65 15 142/78 (99) 100 09/11/20 01:00 68 13 103/48 (66) 98 ROS: no change from my evaluation of 09/10/20. HEENT: normal ENT inspection RHYTHM: NSR, ST LUNGS: rales right CARDIAC: normal rate, regular rhythm, normal S1 and S2 ABDOMEN: normal bowel sounds, soft, other - sacral decub Laboratory Tests Test 09/11/20 03:45 09/11/20 08:27 White Blood Count 20.1 K/UL (4.8-10.8) H Red Blood Count 4.11 M/UL (4.70-6.10) L Hemoglobin 12.0 G/DL (14.2-18.0) L Hematocrit 37.1 % (42.0-52.0) L Mean Corpuscular Volume 90 FL (80-99) Mean Corpuscular Hemoglobin 29.2 PG (27.0-31.0) Mean Corpuscular Hemoglobin Concent 32.4 G/DL (32.0-36.0) Red Cell Distribution Width 13.6 % (11.6-14.8) Platelet Count 171 K/UL (150-450) Mean Platelet Volume 9.2 FL (6.5-10.1) Neutrophils (%) (Auto) % (45.0-75.0) Lymphocytes (%) (Auto) % (20.0-45.0) Monocytes (%) (Auto) % (1.0-10.0) Eosinophils (%) (Auto) % (0.0-3.0) Basophils (%) (Auto) % (0.0-2.0) Differential Total Cells Counted 100 Neutrophils % (Manual) 83 % (45-75) H Lymphocytes % (Manual) 7 % (20-45) L Monocytes % (Manual) 6 % (1-10) Eosinophils % (Manual) 0 % (0-3) Basophils % (Manual) 0 % (0-2) Band Neutrophils 4 % (0-8) Platelet Estimate Adequate Platelet Morphology Normal Hypochromasia 1+ Sodium Level 152 MMOL/L (136-145) H Potassium Level 3.6 MMOL/L (3.5-5.1) Chloride Level 119 MMOL/L (98-107) H Carbon Dioxide Level 25 MMOL/L (21-32) Anion Gap 9 mmol/L (5-15) Blood Urea Nitrogen 79 mg/dL (7-18) H Creatinine 1.3 MG/DL (0.55-1.30) Estimat Glomerular Filtration Rate 54.7 mL/min (>60) Glucose Level 104 MG/DL (74-106) Lactic Acid Level 1.40 mmol/L (0.4-2.0) Calcium Level 7.9 MG/DL (8.5-10.1) L Total Bilirubin 0.5 MG/DL (0.2-1.0) Aspartate Amino Transf (AST/SGOT) 28 U/L (15-37) Alanine Aminotransferase (ALT/SGPT) 19 U/L (12-78) Alkaline Phosphatase 60 U/L (46-116) Troponin I 0.001 ng/mL (0.000-0.056) Pro-B-Type Natriuretic Peptide 211 pg/mL (0-125) H Total Protein 6.3 G/DL (6.4-8.2) L Albumin 2.3 G/DL (3.4-5.0) L Globulin 4.0 g/dL Albumin/Globulin Ratio 0.6 (1.0-2.7) L Thyroid Stimulating Hormone (TSH) 1.568 uiU/mL (0.358-3.740) Random Vancomycin Level 9.6 ug/mL Arterial Blood pH 7.482 (7.350-7.450) Arterial Blood Partial Pressure CO2 30.9 mmHg (35.0-45.0) L Arterial Blood Partial Pressure O2 123.5 mmHg (75.0-100.0) H Arterial Blood HCO3 22.6 mmol/L (22.0-26.0) Arterial Blood Oxygen Saturation 98.5 % (95-100) Arterial Blood Base Excess -0.1 (-2-2) Freddy Test Positive Microbiology Date/Time Source Procedure Growth Status 09/10/20 17:15 Rectum Received 09/10/20 16:00 Nasopharynx Coronavirus COVID-19 PCR ([facility]) - Final Complete 09/10/20 15:51 Blood Blood Culture - Preliminary Resulted 09/10/20 15:41 Blood Blood Culture - Preliminary Resulted Assessment/Plan Assessment/Plan Sepsis Leukocytosis Recovering shock Hypovolemia Dehydration/hypernatremia Acute myocardial ischemia Acute renal failure HC assoc PNA UTI CVA/dementia Remains CRITICAL & GUARDED IVF Antimicrobials Replace lytes DVT prophyl Cardiac monitoring Hypotonic IVF hydration Follow up lab studies Madi Rios MD Sep 12, 2020 00:10
[2020-09-12] MEDS: Piperacillin/Tazobactam 3.375 GM in NS 110 ML IVPB SCH ×3 (02:00→18:27)
--- NOTE | 2020-09-12 03:19 | NUR ---
NURSE NOTES: Received transfer from Stanley ULLOA at ICU.The patient is alert to tactile stimuli but was verbally unresponsive and will at time garble when talk to him.The patient is on 2 liters of oxygen NC well tolerated. He does not seem to exhibits any sign or symptoms of pain. The patient came with a bilateral soft wrist restrain due to agitations and irritability. He has poor skin integrity with a capillary refills of >4 secs. The patient has an NGT in place and was also noted with dried blood on the nose due to irritation fron a small sore. The left arm has an open wounds and a sacral DTI was also noted. Cardiac vance the patient is Sinus Rhythms. He has a Left FA 18g and a RFA 20g IV line running D5 1/2 NS @ 75 ml/hr patent and asymptomatic. The bed in low level, call light within easy reach and bedside rails up x3, bed alarm is on. will continue to monitor as indicated
--- NOTE | 2020-09-12 03:45 | NUR ---
NURSE NOTES: The patient was transferred from ICU and was noted with Hematuria draining from his Rae catheter. He took a heparin shot from the ICU. The left arm was also noted with multiple open sores. will continue to monitor.
[2020-09-12] MEDS: D5W w/KCl 20mEq 1,000 ML IV SCH ×3 (03:49→21:01)
[2020-09-12 04:00] VITALS: BP 120/48
--- NOTE | 2020-09-12 06:36 | NUR ---
NURSE NOTES: Received a report from the laboratory the patient is positive for MRSA NARES. Blood culture is also positive for staphylococci x2. Will followup with MD as indicated
[2020-09-12 07:14] LABS: HEMATOCRIT 37.5 % (42.0-52.0); HEMOGLOBIN 12.4 G/DL (14.2-18.0); MEAN CORPUSCULAR VOLUME 88 FL (80-99); PLATELET COUNT 196 K/UL (150-450); RED BLOOD COUNT 4.25 M/UL (4.70-6.10); RED CELL DISTRIBUTION WIDTH 13.2 % (11.6-14.8); WHITE BLOOD COUNT 16.1 K/UL (4.8-10.8)
--- NOTE | 2020-09-12 07:20 | NUR ---
NURSE HAND-OFF REPORT: Important Events on Shift:Noted with Hematuria Patient Status: Diet: Pending Orders: Pending Results/Labs: Pending MD notification: Latest Vital Signs: Temperature 98.1 , Pulse 67 , B/P 120 /48 , Respiratory Rate 18 , O2 SAT 98 , Nasal Cannula, O2 Flow Rate 2.0 . Vital Sign Comment: EKG Rhythm: Sinus Rhythm Rhythm change?: N MD Notified?: - MD Response: Latest Schultz Fall Score: 50 Fall Risk: High Risk Safety Measures: Call light Within Reach, Bed Alarm Zone 1, Side Rails Side Rails x3, Bed position Low and Locked. Fall Precautions: Yellow Socks Door Sign Patient Fall Education Report given to .
--- NOTE | 2020-09-12 07:25 | NUR ---
NURSE NOTES: Received report from ARTEMIO Watson. Received pt in bed asleep. Pt is alert and responsive to tactile stimuli. Pt with NC @2L, tolerating well. No pain or discomfort noted at this time. Pt. on bilateral soft restrain due to agitations and previous episode of pulling out medical devices Pt with Left FA 18g and a RFA 20g IV line running D5 1/2 NS @ 75 ml/hr patent and intact. Bed in lowest position, locked with side rails x2 up. Call light within reach.
[2020-09-12 07:41] LABS: ALANINE AMINOTRANSFERASE 19 U/L (12-78); ALBUMIN 2.3 G/DL (3.4-5.0); ALBUMIN/GLOBULIN RATIO 0.5 (1.0-2.7); ALKALINE PHOSPHATASE 62 U/L (46-116); ANION GAP 7 mmol/L (5-15); ASPARTATE AMINO TRANSFERASE 37 U/L (15-37); BILIRUBIN,TOTAL 0.5 MG/DL (0.2-1.0); BLOOD UREA NITROGEN 54 mg/dL (7-18); CALCIUM 8.5 MG/DL (8.5-10.1); CARBON DIOXIDE 25 MMOL/L (21-32); CHLORIDE 118 MMOL/L (98-107); CREATININE 1.1 MG/DL (0.55-1.30); POTASSIUM 3.5 MMOL/L (3.5-5.1); SODIUM 150 MMOL/L (136-145)
[2020-09-12 08:00] VITALS: BP 122/78
[2020-09-12] MEDS: Heparin 5000 units/ml inj SUBQ SCH (09:00)
[2020-09-12] MEDS: Pantoprazole Inj IVP SCH (09:19)
--- NOTE | 2020-09-12 09:41 | NUR ---
Speech Note (Dysphagia service follow up from 09/11/2020) Transferred out ICU last night. He is non on tele. Issues: multiple wounds, s.p balaji/nasal/pharyngeal bleeding with blood culture Gram positive cocci leukocytosis trending down from 20k-20k-16k BUN/Creatine trending down from 93/1.9-79/1.3-54/1.1 Temp: 98.1~98.7, Pulse: 62~72, BP: 105/67~120/48, SPO2 98~100% on 2 liter S: Oral cavity is better condition comparison to yesterday. The mucosa is severely erythema without active bleeding. Limited level of alertness for direct therapy. NG in placed O: 1. Laryngeal palpation to trigger spontaneous cough and swallow: Pt triggered cough with laryngeal palpation. Approximately 5~10 seconds after coughing, he triggered swallow. based on this observation, he presents with copious secretion in pharynx and larynx. He continued to have poor secretion management at laryngeal level at this time. NO PO trial was given due to poor secretion at the level of air way with low level of alertness. A: 1. Probable aspiration of his own secretion with poor ability to cough and swallow 2. Dysphagia P: 1. NPO for now 2. Observe his secretion, and level of alertness for PO readiness. Romario Abraham
[2020-09-12] MEDS: Vancomycin 1gm in D5W 275ml IVPB SCH (09:45)
--- NOTE | 2020-09-12 11:15 | Infectious Diseases Prog Note ---
Assessment/Plan Assessment/Plan antibiotics : vancomycin iv, zosyn A 1. Pneumonia COVID-19 test is negative. 2. Dementia. 3. Leukocytosis improving 4. Urinary tract infection 5. + blood cultures with coag neg staph likely contaminated P 1. continue zosyn 2. d/c iv vancomycin 3. will follow up cultures Subjective ROS Limited/Unobtainable: Yes Allergies: Coded Allergies: No Known Allergies (Unverified , 09/10/20) Objective Last 24 Hour Vital Signs Date Time Temp Pulse Resp B/P (MAP) Pulse Ox O2 Delivery O2 Flow Rate FiO2 09/12/20 08:00 97.6 69 19 122/78 (93) 99 09/12/20 08:00 Nasal Cannula 2.0 09/12/20 04:00 98.1 72 18 120/48 (72) 98 09/12/20 04:00 Nasal Cannula 2.0 09/12/20 04:00 67 09/12/20 00:00 72 09/12/20 00:00 Nasal Cannula 2.0 09/11/20 23:00 66 15 105/67 (80) 99 09/11/20 22:00 78 16 118/73 (88) 99 09/11/20 21:00 68 20 117/67 (84) 100 09/11/20 20:00 61 09/11/20 20:00 98.7 62 19 112/69 (83) 100 09/11/20 20:00 Nasal Cannula 2.0 09/11/20 19:31 100 Nasal Cannula 2.0 28 09/11/20 19:00 59 16 106/67 (80) 100 09/11/20 19:00 59 16 106/67 (80) 100 09/11/20 18:30 59 20 117/61 (79) 100 09/11/20 18:00 66 18 124/85 (98) 100 09/11/20 17:00 68 19 117/78 (91) 100 09/11/20 16:30 64 18 107/74 (85) 100 09/11/20 16:00 Nasal Cannula 2.0 09/11/20 16:00 67 09/11/20 16:00 99.1 65 16 123/71 (88) 100 09/11/20 15:00 72 18 136/84 (101) 100 09/11/20 14:30 67 15 121/76 (91) 100 09/11/20 14:00 65 16 122/71 (88) 100 09/11/20 13:00 65 17 122/79 (93) 100 09/11/20 12:00 66 09/11/20 12:00 98.5 71 17 123/72 (89) 100 09/11/20 12:00 Venturi Mask 10.0 Height (Feet): 5 Height (Inches): 7.00 Weight (Pounds): 121 Respiratory/Chest: lungs clear Cardiovascular: normal rate, regular rhythm, no gallop/murmur Abdomen: soft, non tender Extremities: no edema Microbiology Date/Time Source Procedure Growth Status 09/10/20 20:05 Urine,Clean Catch Urine Culture - Preliminary NO GROWTH Resulted 09/10/20 17:15 Rectum - Final NO CARBAPENEM-RESISTANT ENTEROBACTERI... Complete 09/10/20 17:15 Nasal Nares MRSA Culture - Final Staphylococcus Aureus - Mrsa Complete 09/10/20 16:00 Nasopharynx Coronavirus COVID-19 PCR (CARLIE) - Final Complete 09/10/20 15:51 Blood Blood Culture - Preliminary Staphylococcus Sp Coag Neg Resulted 09/10/20 15:41 Blood Blood Culture - Preliminary Staphylococcus Sp Coag Neg Resulted Laboratory Tests Test 09/12/20 06:09 White Blood Count 16.1 K/UL (4.8-10.8) H Red Blood Count 4.25 M/UL (4.70-6.10) L Hemoglobin 12.4 G/DL (14.2-18.0) L Hematocrit 37.5 % (42.0-52.0) L Mean Corpuscular Volume 88 FL (80-99) Mean Corpuscular Hemoglobin 29.1 PG (27.0-31.0) Mean Corpuscular Hemoglobin Concent 33.0 G/DL (32.0-36.0) Red Cell Distribution Width 13.2 % (11.6-14.8) Platelet Count 196 K/UL (150-450) Mean Platelet Volume 8.8 FL (6.5-10.1) Neutrophils (%) (Auto) % (45.0-75.0) Lymphocytes (%) (Auto) % (20.0-45.0) Monocytes (%) (Auto) % (1.0-10.0) Eosinophils (%) (Auto) % (0.0-3.0) Basophils (%) (Auto) % (0.0-2.0) Differential Total Cells Counted 100 Neutrophils % (Manual) 83 % (45-75) H Lymphocytes % (Manual) 5 % (20-45) L Monocytes % (Manual) 8 % (1-10) Eosinophils % (Manual) 4 % (0-3) H Basophils % (Manual) 0 % (0-2) Band Neutrophils 0 % (0-8) Platelet Estimate Adequate Platelet Morphology Normal Hypochromasia 1+ Sodium Level 150 MMOL/L (136-145) H Potassium Level 3.5 MMOL/L (3.5-5.1) Chloride Level 118 MMOL/L (98-107) H Carbon Dioxide Level 25 MMOL/L (21-32) Anion Gap 7 mmol/L (5-15) Blood Urea Nitrogen 54 mg/dL (7-18) H Creatinine 1.1 MG/DL (0.55-1.30) Estimat Glomerular Filtration Rate > 60 mL/min (>60) Glucose Level 114 MG/DL (74-106) H Calcium Level 8.5 MG/DL (8.5-10.1) Magnesium Level 2.9 MG/DL (1.8-2.4) H Total Bilirubin 0.5 MG/DL (0.2-1.0) Aspartate Amino Transf (AST/SGOT) 37 U/L (15-37) Alanine Aminotransferase (ALT/SGPT) 19 U/L (12-78) Alkaline Phosphatase 62 U/L (46-116) Total Protein 6.5 G/DL (6.4-8.2) Albumin 2.3 G/DL (3.4-5.0) L Globulin 4.2 g/dL Albumin/Globulin Ratio 0.5 (1.0-2.7) L Current Medications Medications (Trade) Dose Ordered Sig/Aleksander Route PRN Reason Start Time Stop Time Status Last Admin Dose Admin Acetaminophen (Tylenol) 650 mg Q4H PRN NG Temp >100.5 09/10/20 23:15 10/10/20 23:14 Al Hydroxide/Mg Hydroxide (Mylanta) 30 ml Q4H PRN NG Constipation 09/11/20 00:15 10/10/20 23:14 Barium Sulfate (Varibar Honey) 250 ml NOW PRN MC RAD 11/24/20 08:30 09/14/20 08:21 Barium Sulfate (Varibar Harding) 240 ml NOW PRN RAD 09/11/20 08:30 09/14/20 08:21 Barium Sulfate (Varibar Pudding) 230 ml NOW PRN RAD 09/11/20 08:30 09/14/20 08:21 Barium Sulfate (Varibar Thin Liquid powder) 148 gm NOW PRN RAD 09/11/20 08:30 09/14/20 08:21 Dextrose/ Electrolytes 1,000 ml @ 125 mls/hr Q8H IV 09/11/20 17:00 10/11/20 16:59 09/12/20 09:19 Divalproex Sodium (Depakote Sprinkles) 1,000 mg BEDTIME NG 09/11/20 03:00 10/11/20 02:59 09/11/20 21:00 Heparin Sodium (Porcine) (Heparin 5000 units/ml) 5,000 units EVERY 12 HOURS SUBQ 09/11/20 09:00 10/26/20 08:59 09/11/20 21:00 Ondansetron HCl (Zofran) 4 mg Q6H PRN IVP Nausea & Vomiting 09/10/20 23:15 10/10/20 23:14 Pantoprazole (Protonix) 40 mg DAILY IVP 09/11/20 09:00 10/11/20 08:59 09/12/20 09:19 Piperacillin Sod/ Tazobactam Sod 3.375 gm/Sodium Chloride 110 ml @ 27.5 mls/hr Q8H IVPB 09/11/20 02:00 09/18/20 01:59 09/12/20 09:18 Vancomycin HCl (Vanco pharmacy to dose) 1 ea DAILY PRN MISC Per rx protocol 09/10/20 23:15 10/10/20 23:14 Vancomycin HCl 1 gm/Dextrose 275 ml @ 183.708 mls/hr Q24H IVPB 09/11/20 08:00 09/16/20 07:59 09/12/20 09:45 Martha Collins MD Sep 12, 2020 11:15
[2020-09-12 12:00] VITALS: BP 110/69
--- NOTE | 2020-09-12 12:05 | Nephrology Progress Note ---
Assessment/Plan Plan TYRELL + Hypernatremia - Hypotonic IVF. Na 150 Sepsis iv abx Subjective Subjective Confused Objective Objective Last 24 Hour Vital Signs Date Time Temp Pulse Resp B/P (MAP) Pulse Ox O2 Delivery O2 Flow Rate FiO2 09/12/20 08:00 97.6 69 19 122/78 (93) 99 09/12/20 08:00 Nasal Cannula 2.0 09/12/20 04:00 98.1 72 18 120/48 (72) 98 09/12/20 04:00 Nasal Cannula 2.0 09/12/20 04:00 67 09/12/20 00:00 72 09/12/20 00:00 Nasal Cannula 2.0 09/11/20 23:00 66 15 105/67 (80) 99 09/11/20 22:00 78 16 118/73 (88) 99 09/11/20 21:00 68 20 117/67 (84) 100 09/11/20 20:00 61 09/11/20 20:00 98.7 62 19 112/69 (83) 100 09/11/20 20:00 Nasal Cannula 2.0 09/11/20 19:31 100 Nasal Cannula 2.0 28 09/11/20 19:00 59 16 106/67 (80) 100 09/11/20 19:00 59 16 106/67 (80) 100 09/11/20 18:30 59 20 117/61 (79) 100 09/11/20 18:00 66 18 124/85 (98) 100 09/11/20 17:00 68 19 117/78 (91) 100 09/11/20 16:30 64 18 107/74 (85) 100 09/11/20 16:00 Nasal Cannula 2.0 09/11/20 16:00 67 09/11/20 16:00 99.1 65 16 123/71 (88) 100 09/11/20 15:00 72 18 136/84 (101) 100 09/11/20 14:30 67 15 121/76 (91) 100 09/11/20 14:00 65 16 122/71 (88) 100 09/11/20 13:00 65 17 122/79 (93) 100 Intake and Output 09/11/20 09/12/20 19:00 07:00 Intake Total 1432.58 ml 1072.45 ml Output Total 1110 ml 255 ml Balance 322.58 ml 817.45 ml Free Water 100 ml IV Total 1432.58 ml 972.45 ml Output Urine Total 1110 ml 255 ml Laboratory Tests 09/12/20 06:09: White Blood Count 16.1H, Red Blood Count 4.25L, Hemoglobin 12.4L, Hematocrit 37.5L, Mean Corpuscular Volume 88, Mean Corpuscular Hemoglobin 29.1, Mean Corpuscular Hemoglobin Concent 33.0, Red Cell Distribution Width 13.2, Platelet Count 196, Mean Platelet Volume 8.8, Neutrophils (%) (Auto) , Lymphocytes (%) (Auto) , Monocytes (%) (Auto) , Eosinophils (%) (Auto) , Basophils (%) (Auto) , Differential Total Cells Counted 100, Neutrophils % (Manual) 83H, Lymphocytes % (Manual) 5L, Monocytes % (Manual) 8, Eosinophils % (Manual) 4H, Basophils % (Manual) 0, Band Neutrophils 0, Platelet Estimate Adequate, Platelet Morphology Normal, Hypochromasia 1+, Sodium Level 150H, Potassium Level 3.5, Chloride Level 118H, Carbon Dioxide Level 25, Anion Gap 7, Blood Urea Nitrogen 54H, Creatinine 1.1, Estimat Glomerular Filtration Rate > 60, Glucose Level 114H, Calcium Level 8.5, Magnesium Level 2.9H, Total Bilirubin 0.5, Aspartate Amino Transf (AST/SGOT) 37, Alanine Aminotransferase (ALT/SGPT) 19, Alkaline Phosphatase 62, Total Protein 6.5, Albumin 2.3L, Globulin 4.2, Albumin/Globulin Ratio 0.5L Height (Feet): 5 Height (Inches): 7.00 Weight (Pounds): 121 Objective Bilnd CV RR Lungs B Ronchi Abd SNT. BS + E No CCE Tess Schrader MD Sep 12, 2020 12:05
--- NOTE | 2020-09-12 12:09 | NUR ---
CASE MANAGEMENT:REVIEW 09/12/20 SI:SEPSIS. PNA. TYRELL 97.6 69 19 122/78 99% ON 2L/NC WBC+16.1 NA+150 BUN+54 IS: IVF@125/HR IV VANCOMYCIN Q24 IV ZOSYN Q8HRS IV PROTONIX QD : TELEMETRY STATUS [facility]
--- NOTE | 2020-09-12 12:45 | General Progress Note ---
Subjective ROS Limited/Unobtainable: Yes Allergies: Coded Allergies: No Known Allergies (Unverified , 09/10/20) Objective Last 24 Hour Vital Signs Date Time Temp Pulse Resp B/P (MAP) Pulse Ox O2 Delivery O2 Flow Rate FiO2 09/12/20 08:00 68 09/12/20 08:00 97.6 69 19 122/78 (93) 99 09/12/20 08:00 Nasal Cannula 2.0 09/12/20 04:00 98.1 72 18 120/48 (72) 98 09/12/20 04:00 Nasal Cannula 2.0 09/12/20 04:00 67 09/12/20 00:00 72 09/12/20 00:00 Nasal Cannula 2.0 09/11/20 23:00 66 15 105/67 (80) 99 09/11/20 22:00 78 16 118/73 (88) 99 09/11/20 21:00 68 20 117/67 (84) 100 09/11/20 20:00 61 09/11/20 20:00 98.7 62 19 112/69 (83) 100 09/11/20 20:00 Nasal Cannula 2.0 09/11/20 19:31 100 Nasal Cannula 2.0 28 09/11/20 19:00 59 16 106/67 (80) 100 09/11/20 19:00 59 16 106/67 (80) 100 09/11/20 18:30 59 20 117/61 (79) 100 09/11/20 18:00 66 18 124/85 (98) 100 09/11/20 17:00 68 19 117/78 (91) 100 09/11/20 16:30 64 18 107/74 (85) 100 09/11/20 16:00 Nasal Cannula 2.0 09/11/20 16:00 67 09/11/20 16:00 99.1 65 16 123/71 (88) 100 09/11/20 15:00 72 18 136/84 (101) 100 09/11/20 14:30 67 15 121/76 (91) 100 09/11/20 14:00 65 16 122/71 (88) 100 09/11/20 13:00 65 17 122/79 (93) 100 Intake and Output 09/11/20 09/12/20 19:00 07:00 Intake Total 1432.58 ml 1072.45 ml Output Total 1110 ml 255 ml Balance 322.58 ml 817.45 ml Free Water 100 ml IV Total 1432.58 ml 972.45 ml Output Urine Total 1110 ml 255 ml Laboratory Tests 09/12/20 06:09: White Blood Count 16.1H, Red Blood Count 4.25L, Hemoglobin 12.4L, Hematocrit 37.5L, Mean Corpuscular Volume 88, Mean Corpuscular Hemoglobin 29.1, Mean Corpuscular Hemoglobin Concent 33.0, Red Cell Distribution Width 13.2, Platelet Count 196, Mean Platelet Volume 8.8, Neutrophils (%) (Auto) , Lymphocytes (%) (Auto) , Monocytes (%) (Auto) , Eosinophils (%) (Auto) , Basophils (%) (Auto) , Differential Total Cells Counted 100, Neutrophils % (Manual) 83H, Lymphocytes % (Manual) 5L, Monocytes % (Manual) 8, Eosinophils % (Manual) 4H, Basophils % (Manual) 0, Band Neutrophils 0, Platelet Estimate Adequate, Platelet Morphology Normal, Hypochromasia 1+, Sodium Level 150H, Potassium Level 3.5, Chloride Level 118H, Carbon Dioxide Level 25, Anion Gap 7, Blood Urea Nitrogen 54H, Creatinine 1.1, Estimat Glomerular Filtration Rate > 60, Glucose Level 114H, Calcium Level 8.5, Magnesium Level 2.9H, Total Bilirubin 0.5, Aspartate Amino Transf (AST/SGOT) 37, Alanine Aminotransferase (ALT/SGPT) 19, Alkaline Phosphatase 62, Total Protein 6.5, Albumin 2.3L, Globulin 4.2, Albumin/Globulin Ratio 0.5L Height (Feet): 5 Height (Inches): 7.00 Weight (Pounds): 121 Objective WDWN NAD reduced breath sounds bilaterally without rhonchi or wheeze [id number] without MRG NABS nontender no HSM no CCE nonfocal remains confused Assessment/Plan Assessment/Plan: IMPRESSION: 1. Acute renal failure. 2. Hypernatremia. 3. Leukocytosis. 4. Possible sepsis. 5. Hypotension. 6. Dementia. 7. Acute on chronic encephalopathy. PLAN hydrate PT ID follow up cultures renal to see impression, plan, and exam edited and reviewed in detail care discussed with Patel Tesfaye MD Sep 12, 2020 12:45
[2020-09-12 16:00] VITALS: BP 112/97
--- NOTE | 2020-09-12 17:43 | Surgery Progress Note ---
Surgery Progress Note Subjective Additional Comments downgraded labs noted Objective Last 24 Hour Vital Signs Date Time Temp Pulse Resp B/P (MAP) Pulse Ox O2 Delivery O2 Flow Rate FiO2 09/12/20 16:00 98.1 73 20 112/97 (102) 98 09/12/20 16:00 Nasal Cannula 2.0 09/12/20 12:00 56 09/12/20 12:00 96.8 63 21 110/69 (83) 99 09/12/20 12:00 Nasal Cannula 2.0 09/12/20 08:00 68 09/12/20 08:00 97.6 69 19 122/78 (93) 99 09/12/20 08:00 Nasal Cannula 2.0 09/12/20 04:00 98.1 72 18 120/48 (72) 98 09/12/20 04:00 Nasal Cannula 2.0 09/12/20 04:00 67 09/12/20 00:00 72 09/12/20 00:00 Nasal Cannula 2.0 09/11/20 23:00 66 15 105/67 (80) 99 09/11/20 22:00 78 16 118/73 (88) 99 09/11/20 21:00 68 20 117/67 (84) 100 09/11/20 20:00 61 09/11/20 20:00 98.7 62 19 112/69 (83) 100 09/11/20 20:00 Nasal Cannula 2.0 09/11/20 19:31 100 Nasal Cannula 2.0 28 09/11/20 19:00 59 16 106/67 (80) 100 09/11/20 19:00 59 16 106/67 (80) 100 09/11/20 18:30 59 20 117/61 (79) 100 09/11/20 18:00 66 18 124/85 (98) 100 I&O Intake and Output 09/11/20 09/12/20 19:00 07:00 Intake Total 1432.58 ml 1072.45 ml Output Total 1110 ml 255 ml Balance 322.58 ml 817.45 ml Free Water 100 ml IV Total 1432.58 ml 972.45 ml Output Urine Total 1110 ml 255 ml Dressing: dry Cardiovascular: RSR Respiratory: decreased breath sounds Abdomen: soft, non-tender, present bowel sounds, other Extremities: no tenderness, no cyanosis Laboratory Tests Test 09/12/20 06:09 White Blood Count 16.1 K/UL (4.8-10.8) H Red Blood Count 4.25 M/UL (4.70-6.10) L Hemoglobin 12.4 G/DL (14.2-18.0) L Hematocrit 37.5 % (42.0-52.0) L Mean Corpuscular Volume 88 FL (80-99) Mean Corpuscular Hemoglobin 29.1 PG (27.0-31.0) Mean Corpuscular Hemoglobin Concent 33.0 G/DL (32.0-36.0) Red Cell Distribution Width 13.2 % (11.6-14.8) Platelet Count 196 K/UL (150-450) Mean Platelet Volume 8.8 FL (6.5-10.1) Neutrophils (%) (Auto) % (45.0-75.0) Lymphocytes (%) (Auto) % (20.0-45.0) Monocytes (%) (Auto) % (1.0-10.0) Eosinophils (%) (Auto) % (0.0-3.0) Basophils (%) (Auto) % (0.0-2.0) Differential Total Cells Counted 100 Neutrophils % (Manual) 83 % (45-75) H Lymphocytes % (Manual) 5 % (20-45) L Monocytes % (Manual) 8 % (1-10) Eosinophils % (Manual) 4 % (0-3) H Basophils % (Manual) 0 % (0-2) Band Neutrophils 0 % (0-8) Platelet Estimate Adequate Platelet Morphology Normal Hypochromasia 1+ Sodium Level 150 MMOL/L (136-145) H Potassium Level 3.5 MMOL/L (3.5-5.1) Chloride Level 118 MMOL/L (98-107) H Carbon Dioxide Level 25 MMOL/L (21-32) Anion Gap 7 mmol/L (5-15) Blood Urea Nitrogen 54 mg/dL (7-18) H Creatinine 1.1 MG/DL (0.55-1.30) Estimat Glomerular Filtration Rate > 60 mL/min (>60) Glucose Level 114 MG/DL (74-106) H Calcium Level 8.5 MG/DL (8.5-10.1) Magnesium Level 2.9 MG/DL (1.8-2.4) H Total Bilirubin 0.5 MG/DL (0.2-1.0) Aspartate Amino Transf (AST/SGOT) 37 U/L (15-37) Alanine Aminotransferase (ALT/SGPT) 19 U/L (12-78) Alkaline Phosphatase 62 U/L (46-116) Total Protein 6.5 G/DL (6.4-8.2) Albumin 2.3 G/DL (3.4-5.0) L Globulin 4.2 g/dL Albumin/Globulin Ratio 0.5 (1.0-2.7) L Plan Problems: (1) Fever (2) Decubitus skin ulcer Assessment & Plan: Patient identified on admission to have multiple scabs on the left arm. mild open scabs with eschar. no drainage. no significant cellulitis. bruising no bilateral extremities noted. no signs of abuse. likely from agitation Sacral coccygeal noted to have a DTI 4.3X2.5CM. which is dark purple . RECOMMEND-CLEAN WITH SALINE, PAT DRY AND APPLY CALAZINE. COVER WITH OPTIFOAM DRESSING. REPLACE EVERY 3 DAYS OR NEEDED LEFT ISCHIUM- STAGE I PRESSURE ULCER MEASURES 4.5X1.7CM. NON-BLANCHABLE ERYTHEMA. RECOMMEND- APPLY CALAZINE AND COVER WITH OPTIFOAM DRESSING. REPLACE EVERY 7 DAYS. Turn q2h off load pressure with pillow off load heels nutritional optimization PAD TUFTER eval will follow with recs thank you (3) Malnutrition Assessment & Plan: Mr. Roman is a 70 year old male BIBA to ED of [facility] [place] on 11/10/2019 around 14:00 due to fever. He was found to be hypotensive 91/55 (67), Temp: 100.0, leukocytosis 20.8k and subsequently transferred to ICU for septic shock. The blood culture is reportedly positive for gram positive cocci. NG tube was placed, KUB confirmed the placement to day. Pt is clinically stable with leukocytosis 20.1, improved BUN and creatine, stable hemodynamic without vasopressor. Findings: Mr. Roman is disoriented. He does ot follow commands at this time. Oral cavity is noted to be dried blood concretion likely from NG trauma. No active bleeding site is seen. Due to his level f alertness, already NG tube is in placed, PO trial was not done at this time. Transferred out ICU last night. He is non on tele. Issues: multiple wounds, s.p balaji/nasal/pharyngeal bleeding with blood culture Gram positive cocci leukocytosis trending down from 20k-20k-16k BUN/Creatine trending down from 93/1.9-79/1.3-54/1.1 Temp: 98.1~98.7, Pulse: 62~72, BP: 105/67~120/48, SPO2 98~100% on 2 liter S: Oral cavity is better condition comparison to yesterday. The mucosa is severely erythema without active bleeding. Limited level of alertness for direct therapy. NG in placed O: 1. Laryngeal palpation to trigger spontaneous cough and swallow: Pt tr iggered cough with laryngeal palpation. Approximately 5~10 seconds after coughing, he triggered swallow. based on this observation, he presents with copious secretion in pharynx and larynx. He continued to have poor secretion management at laryngeal level at this time. NO PO trial was given due to poor secretion at the level of air way with low level of alertness. A: 1. Probable aspiration of his own secretion with poor ability to cough and swallow 2. Dysphagia P: 1. NPO for now 2. Observe his secretion, and level of alertness for PO readiness. (4) Severe sepsis (5) Open upper arm wound Aubrey Gutierrez Sep 12, 2020 17:43
--- NOTE | 2020-09-12 19:15 | NUR ---
NURSE HAND-OFF REPORT: Important Events on Shift:Pt has hematuria, irrigate as needed per Dr. Brunson Patient Status: stable Diet: NPO Pending Orders: NA Pending Results/Labs:NA Pending MD notification:NA Latest Vital Signs: Temperature 98.1 , Pulse 60 , B/P 112 /97 , Respiratory Rate 20 , O2 SAT 98 , Nasal Cannula, O2 Flow Rate 2.0 . Vital Sign Comment: Stable EKG Rhythm: Sinus Rhythm Rhythm change?: N MD Notified?: - MD Response: Latest Shcultz Fall Score: 50 Fall Risk: High Risk Safety Measures: Call light Within Reach, Bed Alarm Zone 1, Side Rails Side Rails x3, Bed position Low and Locked. Fall Precautions: Yellow Socks Door Sign Patient Fall Education Report given to ARTEMIO Disla.
--- NOTE | 2020-09-12 19:20 | NUR ---
NURSE NOTES: Received report from ARTEMIO Constantino/ ARTEMIO Malloy. Pt asleep in bed, afebrile, arousable with tactile stimuli nad has no respiratory distress noted. ON Nasal cannula at 2lpm saturating at 98-100%. With right nares NGT intact and patent. with right adn left Forearms 20g IV line intact, patent and asymptomatic. With FC to urine bag draining hematuria. is aware already. With both soft wrist restraints. Skin is intact,. pulses are palpable. no paresthesia noted. Needs were attended. Call light within reach. bed rails are up and wheels are locked.Continue plan of care. Addendum: 09/13/20 at 035 by ROBERT Fine RN Pt was noted with dried blood from right nares NGT. No active bleeding ntoed. Pt VS is within normal limits. HGB and hct are WNL. Continue to monitor the patient. Addendum: 09/13/20 at 0358 by ROBERT Fine RN 2029- Charge nurse was made aware. Continue to monitor the patient.
[2020-09-12 20:00] VITALS: BP 101/64
--- NOTE | 2020-09-12 20:14 | Consultation ---
DATE OF CONSULTATION: 09/12/2020 CONSULTING PHYSICIAN: Levi Brunson MD REFERRING PHYSICIAN: Patel Villasenor MD REASON FOR CONSULTATION: For evaluation of gross hematuria. HISTORY OF PRESENT ILLNESS: This is a 70-year-old male. He is a [facility] a [place]it[place]. He was brought in because of hypotension, shock, and possible sepsis. He has dementia. Most of the history was obtained from the chart. Apparently at the time of admission, the Rae catheter was placed and there was gross hematuria noted. Urology evaluation is requested. PAST MEDICAL HISTORY: Significant for above. Also history of CHF, psychiatric disorder, dementia. PAST SURGICAL HISTORY: Unknown. MEDICATIONS: Current medication list in the hospital was reviewed. Patient is on Protonix, vancomycin, Zosyn, and Tylenol. ALLERGIES: No known drug allergies. SOCIAL HISTORY: Resident of a penitentiary. Smoking history is unknown. REVIEW OF SYSTEMS: Unable to obtain. FAMILY HISTORY: Unable to obtain. PHYSICAL EXAMINATION: GENERAL: Elderly male. VITAL SIGNS: Temperature is 98.1, blood pressure 112/97, pulse 73, respirations 60. GENITOURINARY: Rae catheter is in place. Urine is grossly dark bloody with some clots. LABORATORY DATA: UA on admission showed 2+ protein, too numerous to count rbc's, 5 wbc's, many bacteria. White count is 16.1, hemoglobin 12.4, platelets of 196. BUN is 54, creatinine 1.1, potassium 3.5. INR is 1.1. DIAGNOSTIC IMAGING STUDIES: The patient had an abdominal x-ray, which showed enteric tube in place. There was no renal imaging. IMPRESSION: 1. Gross hematuria. 2. Pyuria and possible UTI. 3. Proteinuria. 4. BPH. 5. Urinary retention. 6. Probable neurogenic bladder. 7. Possible sepsis. PLAN AND DISCUSSION: Again, the patient has a Rae catheter in place. He has gross hematuria, which may be secondary to UTI and Rae trauma. Rae catheter was irrigated and will be irrigated on a p.r.n. basis. His renal function is stable and will be monitored as his hemoglobin and hematocrit. We will follow up on any culture results. The urine culture is negative so far and his blood does show some coag-negative staph. We will consider renal imaging study and cystoscopy can be done electively once other medical issues are resolved. Again, the Rae was irrigated p.r.n. I will also add Flomax and Proscar and possible voiding trial in the near future. Thank you for this consultation. Levi Brunson M.D. DR: DONYA JOB#: [id number] CC:
[2020-09-12] MEDS: Depakote 125mg Sprinkles NG SCH (21:01)
[2020-09-12] MEDS: Tamsulosin 0.4mg cap ORAL SCH (21:01)
--- NOTE | 2020-09-12 22:41 | Cardiology Progress Note ---
Subjective DATE OF SERVICE: Sep 12, 2020 BP responded to fluid challenges on admit; did not require pressors. Labs remain grossly abnormal with elev WBC and Na+; patient remains on hypotonic IVF. No SOB. Objective Last 24 Hour Vital Signs Date Time Temp Pulse Resp B/P (MAP) Pulse Ox O2 Delivery O2 Flow Rate FiO2 09/12/20 20:00 Nasal Cannula 2.0 09/12/20 20:00 65 09/12/20 20:00 99.0 55 20 101/64 (76) 98 09/12/20 16:00 60 09/12/20 16:00 98.1 73 20 112/97 (102) 98 09/12/20 16:00 Nasal Cannula 2.0 09/12/20 12:00 56 09/12/20 12:00 96.8 63 21 110/69 (83) 99 09/12/20 12:00 Nasal Cannula 2.0 09/12/20 08:00 68 09/12/20 08:00 97.6 69 19 122/78 (93) 99 09/12/20 08:00 Nasal Cannula 2.0 09/12/20 04:00 98.1 72 18 120/48 (72) 98 09/12/20 04:00 Nasal Cannula 2.0 09/12/20 04:00 67 09/12/20 00:00 72 09/12/20 00:00 Nasal Cannula 2.0 09/11/20 23:00 66 15 105/67 (80) 99 ROS: no change from my evaluation of 09/10/20. HEENT: normal ENT inspection RHYTHM: NSR, ST LUNGS: rales right CARDIAC: normal rate, regular rhythm, normal S1 and S2 ABDOMEN: normal bowel sounds, soft, other - sacral decub Laboratory Tests Test 09/12/20 06:09 White Blood Count 16.1 K/UL (4.8-10.8) H Red Blood Count 4.25 M/UL (4.70-6.10) L Hemoglobin 12.4 G/DL (14.2-18.0) L Hematocrit 37.5 % (42.0-52.0) L Mean Corpuscular Volume 88 FL (80-99) Mean Corpuscular Hemoglobin 29.1 PG (27.0-31.0) Mean Corpuscular Hemoglobin Concent 33.0 G/DL (32.0-36.0) Red Cell Distribution Width 13.2 % (11.6-14.8) Platelet Count 196 K/UL (150-450) Mean Platelet Volume 8.8 FL (6.5-10.1) Neutrophils (%) (Auto) % (45.0-75.0) Lymphocytes (%) (Auto) % (20.0-45.0) Monocytes (%) (Auto) % (1.0-10.0) Eosinophils (%) (Auto) % (0.0-3.0) Basophils (%) (Auto) % (0.0-2.0) Differential Total Cells Counted 100 Neutrophils % (Manual) 83 % (45-75) H Lymphocytes % (Manual) 5 % (20-45) L Monocytes % (Manual) 8 % (1-10) Eosinophils % (Manual) 4 % (0-3) H Basophils % (Manual) 0 % (0-2) Band Neutrophils 0 % (0-8) Platelet Estimate Adequate Platelet Morphology Normal Hypochromasia 1+ Sodium Level 150 MMOL/L (136-145) H Potassium Level 3.5 MMOL/L (3.5-5.1) Chloride Level 118 MMOL/L (98-107) H Carbon Dioxide Level 25 MMOL/L (21-32) Anion Gap 7 mmol/L (5-15) Blood Urea Nitrogen 54 mg/dL (7-18) H Creatinine 1.1 MG/DL (0.55-1.30) Estimat Glomerular Filtration Rate > 60 mL/min (>60) Glucose Level 114 MG/DL (74-106) H Calcium Level 8.5 MG/DL (8.5-10.1) Magnesium Level 2.9 MG/DL (1.8-2.4) H Total Bilirubin 0.5 MG/DL (0.2-1.0) Aspartate Amino Transf (AST/SGOT) 37 U/L (15-37) Alanine Aminotransferase (ALT/SGPT) 19 U/L (12-78) Alkaline Phosphatase 62 U/L (46-116) Total Protein 6.5 G/DL (6.4-8.2) Albumin 2.3 G/DL (3.4-5.0) L Globulin 4.2 g/dL Albumin/Globulin Ratio 0.5 (1.0-2.7) L Microbiology Date/Time Source Procedure Growth Status 09/10/20 20:05 Urine,Clean Catch Urine Culture - Preliminary NO GROWTH Resulted 09/10/20 17:15 Rectum - Final NO CARBAPENEM-RESISTANT ENTEROBACTERI... Complete 09/10/20 17:15 Nasal Nares MRSA Culture - Final Staphylococcus Aureus - Mrsa Complete 09/10/20 16:00 Nasopharynx Coronavirus COVID-19 PCR (CARLIE) - Final Complete 09/10/20 15:51 Blood Blood Culture - Preliminary Staphylococcus Sp Coag Neg Resulted 09/10/20 15:41 Blood Blood Culture - Preliminary Staphylococcus Sp Coag Neg Resulted Assessment/Plan Assessment/Plan Sepsis Leukocytosis Recovering shock Hypovolemia Dehydration/hypernatremia Acute myocardial ischemia Acute renal failure HC assoc PNA UTI CVA/dementia Remains CRITICAL & GUARDED Antimicrobials Replace lytes as needed DVT prophyl Cardiac monitoring Hypotonic IVF hydration Follow up lab studies Madi Rios MD Sep 12, 2020 22:41
[2020-09-13] VITALS: BP_SYST 101; BP_SYST 109; BP_DIAS 56; BP_DIAS 62
[2020-09-13] MEDS: Piperacillin/Tazobactam 3.375 GM in NS 110 ML IVPB SCH ×3 (01:05→17:34)
--- NOTE | 2020-09-13 01:30 | NUR ---
NURSE NOTES: Pt was given partial bed bath. gown and linen were changed. Pt tolerated well. Continue to monitor the patient
[2020-09-13] MEDS: D5W w/KCl 20mEq 1,000 ML IV SCH ×3 (03:39→17:34)
[2020-09-13 04:00] VITALS: BP 101/56
--- NOTE | 2020-09-13 05:50 | NUR ---
NURSE NOTES: Pt asleep in bed and no respiratory distress noted. Continue to monitor the patient.
[2020-09-13 07:23] LABS: BASOPHILS % (AUTO) 0.6 % (0.0-2.0); EOSINOPHILS % (AUTO) 1.4 % (0.0-3.0); HEMATOCRIT 30.7 % (42.0-52.0); HEMOGLOBIN 10.4 G/DL (14.2-18.0); LYMPHOCYTES % (AUTO) 11.1 % (20.0-45.0); MEAN CORPUSCULAR VOLUME 84 FL (80-99); NEUTROPHILS % (AUTO) 77.9 % (45.0-75.0); PLATELET COUNT 163 K/UL (150-450); RED BLOOD COUNT 3.64 M/UL (4.70-6.10); RED CELL DISTRIBUTION WIDTH 13.4 % (11.6-14.8); WHITE BLOOD COUNT 8.6 K/UL (4.8-10.8)
--- NOTE | 2020-09-13 07:30 | NUR ---
NURSE HAND-OFF REPORT: Important Events on Shift: dried blood on right nares Patient Status: stable Diet: npo Pending Orders: n Pending Results/Labs:n Pending MD notification:n Latest Vital Signs: Temperature 99.5 , Pulse 55 , B/P 101 /56 , Respiratory Rate 20 , O2 SAT 98 , Nasal Cannula, O2 Flow Rate 2.0 . Vital Sign Comment:n EKG Rhythm: Sinus Rhythm Rhythm change?: Y MD Notified?: N - MD Response: Latest Schultz Fall Score: 50 Fall Risk: High Risk Safety Measures: Call light Within Reach, Bed Alarm Zone 1, Side Rails Side Rails x3, Bed position Low and Locked. Fall Precautions: Yellow Socks Door Sign Patient Fall Education Report given to ARTEMIO Patino. Endorsed to ffup any feeding formula to start and right nares dried blood.
--- NOTE | 2020-09-13 07:31 | NUR ---
NURSE NOTES: Received patient in bed asleep. O2 via NC at 2LPM in place. Bialteral soft wrist restraints in place, peripheral pulses palpable, no skin issues noted on site. NG tube intact. FC intact, draining dark orange urine. HOB elevated. Bed locked in low position. Call light within reach. Will continue plan of care.
[2020-09-13 08:00] VITALS: BP 102/61
--- NOTE | 2020-09-13 08:31 | General Progress Note ---
Subjective Allergies: Coded Allergies: No Known Allergies (Unverified , 09/10/20) Subjective remains confused on oxygen Objective Last 24 Hour Vital Signs Date Time Temp Pulse Resp B/P (MAP) Pulse Ox O2 Delivery O2 Flow Rate FiO2 09/13/20 08:00 96.8 61 21 102/61 (75) 95 09/13/20 04:00 99.5 55 20 101/56 (71) 98 09/13/20 03:35 58 09/13/20 00:00 99.2 65 20 109/62 (78) 98 09/12/20 23:37 64 09/12/20 20:05 98 Nasal Cannula 2.0 28 09/12/20 20:00 Nasal Cannula 2.0 09/12/20 20:00 65 09/12/20 20:00 99.0 55 20 101/64 (76) 98 09/12/20 16:00 60 09/12/20 16:00 98.1 73 20 112/97 (102) 98 09/12/20 16:00 Nasal Cannula 2.0 09/12/20 12:00 56 09/12/20 12:00 96.8 63 21 110/69 (83) 99 09/12/20 12:00 Nasal Cannula 2.0 Intake and Output 09/12/20 09/13/20 19:00 07:00 Intake Total 1733.0 ml Output Total 50 ml 700 ml Balance -50 ml 1033.0 ml IV Total 1733.0 ml Output Urine Total 50 ml 700 ml Laboratory Tests 09/13/20 07:00: White Blood Count 8.6, Red Blood Count 3.64L, Hemoglobin 10.4L, Hematocrit 30.7L , Mean Corpuscular Volume 84, Mean Corpuscular Hemoglobin 28.7, Mean Corpuscular Hemoglobin Concent 34.0, Red Cell Distribution Width 13.4, Platelet Count 163, Mean Platelet Volume 9.5, Neutrophils (%) (Auto) 77.9H, Lymphocytes (%) (Auto) 11.1L, Monocytes (%) (Auto) 9.0, Eosinophils (%) (Auto) 1.4, Basophils (%) (Auto) 0.6, Sodium Level [Pending], Potassium Level [Pending], Chloride Level [Pending], Carbon Dioxide Level [Pending], Blood Urea Nitrogen [Pending], Creatinine [Pending], Estimat Glomerular Filtration Rate [Pending], Glucose Level [Pending], Calcium Level [Pending], Total Bilirubin [Pending], Aspartate Amino Transf (AST/SGOT) [Pending], Alanine Aminotransferase (ALT/SGPT) [Pending], Alkaline Phosphatase [Pending], Total Protein [Pending], Albumin [Pending], Globulin [Pending], Vancomycin Level Trough 8.0 Height (Feet): 5 Height (Inches): 7.00 Weight (Pounds): 121 Objective WDWN NAD reduced breath sounds bilaterally without rhonchi or wheeze [id number] without MRG NABS nontender no HSM no CCE nonfocal remains confused Assessment/Plan Assessment/Plan: IMPRESSION: 1. Acute renal failure. 2. Hypernatremia. 3. Leukocytosis. 4. Possible sepsis. 5. Hypotension. 6. Dementia. 7. Acute on chronic encephalopathy. 8. bcx staph Epi 9. MRSA colonized PLAN hydrate PT ID noted; on zosyn only follow up cultures renal follow up needs placement impression, plan, and exam edited and reviewed in detail care discussed with Patel Tesfaye MD Sep 13, 2020 08:31
[2020-09-13 08:35] LABS: ALANINE AMINOTRANSFERASE 25 U/L (12-78); ALBUMIN 2.1 G/DL (3.4-5.0); ALBUMIN/GLOBULIN RATIO 0.7 (1.0-2.7); ALKALINE PHOSPHATASE 48 U/L (46-116); ANION GAP 6 mmol/L (5-15); ASPARTATE AMINO TRANSFERASE 40 U/L (15-37); BILIRUBIN,TOTAL 0.4 MG/DL (0.2-1.0); BLOOD UREA NITROGEN 34 mg/dL (7-18); CALCIUM 7.8 MG/DL (8.5-10.1); CARBON DIOXIDE 25 MMOL/L (21-32); CHLORIDE 116 MMOL/L (98-107); SODIUM 147 MMOL/L (136-145)
[2020-09-13] MEDS: Vancomycin 1gm in D5W 275ml IVPB SCH (08:39)
[2020-09-13] MEDS: Pantoprazole Inj IVP SCH (08:39)
--- NOTE | 2020-09-13 09:18 | Urology Progress Note ---
Assessment/Plan Assessment/Plan: 1. Gross hematuria. 2. Pyuria and possible UTI. 3. Proteinuria. 4. BPH. 5. Urinary retention. 6. Probable neurogenic bladder. 7. Possible sepsis. monitor clinically maintain andrade hand irrigated and do PRN abx as ordered flomax and proscar added cysto electively voiding trial at some point? Subjective Allergies: Coded Allergies: No Known Allergies (Unverified , 09/10/20) Subjective non-verbal, nurses hand irrigated andrade Objective Last 24 Hour Vital Signs Date Time Temp Pulse Resp B/P (MAP) Pulse Ox O2 Delivery O2 Flow Rate FiO2 09/13/20 08:00 96.8 61 21 102/61 (75) 95 09/13/20 04:00 99.5 55 20 101/56 (71) 98 09/13/20 03:35 58 09/13/20 00:00 99.2 65 20 109/62 (78) 98 09/12/20 23:37 64 09/12/20 20:05 98 Nasal Cannula 2.0 28 09/12/20 20:00 Nasal Cannula 2.0 09/12/20 20:00 65 09/12/20 20:00 99.0 55 20 101/64 (76) 98 09/12/20 16:00 60 09/12/20 16:00 98.1 73 20 112/97 (102) 98 09/12/20 16:00 Nasal Cannula 2.0 09/12/20 12:00 56 09/12/20 12:00 96.8 63 21 110/69 (83) 99 09/12/20 12:00 Nasal Cannula 2.0 Intake and Output 09/12/20 09/13/20 19:00 07:00 Intake Total 1733.0 ml Output Total 50 ml 700 ml Balance -50 ml 1033.0 ml IV Total 1733.0 ml Output Urine Total 50 ml 700 ml Microbiology Date/Time Source Procedure Growth Status 09/10/20 20:05 Urine,Clean Catch Urine Culture - Final NO GROWTH AFTER 48 HOURS Complete 09/10/20 17:15 Rectum - Final NO CARBAPENEM-RESISTANT ENTEROBACTERI... Complete 09/10/20 17:15 Nasal Nares MRSA Culture - Final Staphylococcus Aureus - Mrsa Complete 09/10/20 15:51 Blood Blood Culture - Final Staphylococcus Epidermidis Complete Current Medications Medications (Trade) Dose Ordered Sig/Aleksander Route PRN Reason Start Time Stop Time Status Last Admin Dose Admin Acetaminophen (Tylenol) 650 mg Q4H PRN NG Temp >100.5 09/10/20 23:15 10/10/20 23:14 Al Hydroxide/Mg Hydroxide (Mylanta) 30 ml Q4H PRN NG Constipation 09/11/20 00:15 10/10/20 23:14 Barium Sulfate (Varibar Honey) 250 ml NOW PRN RAD 09/11/20 08:30 09/14/20 08:21 Barium Sulfate (Varibar [place]) 240 ml NOW PRN RAD 09/11/20 08:30 09/14/20 08:21 Barium Sulfate (Varibar Pudding) 230 ml NOW PRN RAD 09/11/20 08:30 09/14/20 08:21 Barium Sulfate (Varibar Thin Liquid powder) 148 gm NOW PRN RAD 09/11/20 08:30 09/14/20 08:21 Dextrose/ Electrolytes 1,000 ml @ 125 mls/hr Q8H IV 09/11/20 17:00 10/11/20 16:59 09/13/20 03:39 Divalproex Sodium (Depakote Sprinkles) 1,000 mg BEDTIME NG 09/11/20 03:00 10/11/20 02:59 09/12/20 21:01 Finasteride (Proscar) 5 mg DAILY ORAL 09/13/20 09:00 12/12/20 08:59 09/13/20 08:39 Ondansetron HCl (Zofran) 4 mg Q6H PRN IVP Nausea & Vomiting 09/10/20 23:15 10/10/20 23:14 Pantoprazole (Protonix) 40 mg DAILY IVP 09/11/20 09:00 10/11/20 08:59 09/13/20 08:39 Piperacillin Sod/ Tazobactam Sod 3.375 gm/Sodium Chloride 110 ml @ 27.5 mls/hr Q8H IVPB 09/11/20 02:00 09/18/20 01:59 09/13/20 01:05 Tamsulosin HCl (Flomax) 0.4 mg BEDTIME ORAL 09/12/20 21:00 10/12/20 20:59 09/12/20 21:01 Vancomycin HCl (Vanco pharmacy to dose) 1 ea DAILY PRN MISC Per rx protocol 09/10/20 23:15 10/10/20 23:14 Vancomycin HCl 1 gm/Dextrose 275 ml @ 183.708 mls/hr Q24H IVPB 09/11/20 08:00 09/16/20 07:59 09/13/20 08:39 Laboratory Tests 09/13/20 07:00: White Blood Count 8.6, Red Blood Count 3.64L, Hemoglobin 10.4L, Hematocrit 30.7L , Mean Corpuscular Volume 84, Mean Corpuscular Hemoglobin 28.7, Mean Corpuscular Hemoglobin Concent 34.0, Red Cell Distribution Width 13.4, Platelet Count 163, Mean Platelet Volume 9.5, Neutrophils (%) (Auto) 77.9H, Lymphocytes (%) (Auto) 11.1L, Monocytes (%) (Auto) 9.0, Eosinophils (%) (Auto) 1.4, Basophils (%) (Auto) 0.6, Sodium Level 147H, Potassium Level 4.0, Chloride Level 116H, Carbon Dioxide Level 25, Anion Gap 6, Blood Urea Nitrogen 34H, Creatinine 1.0, Estimat Glomerular Filtration Rate > 60, Glucose Level 121H, Calcium Level 7.8L, Total Bilirubin 0.4, Aspartate Amino Transf (AST/SGOT) 40H, Alanine Aminotransferase (ALT/SGPT) 25, Alkaline Phosphatase 48, Total Protein 5.3L, Albumin 2.1L, Globulin 3.2, Albumin/Globulin Ratio 0.7L, Vancomycin Level Trough 8.0 Height (Feet): 5 Height (Inches): 7.00 Weight (Pounds): 121 Objective exam stable urine clearing Levi Brunson MD Sep 13, 2020 09:18
--- NOTE | 2020-09-13 11:25 | Surgery Progress Note ---
Surgery Progress Note Subjective Additional Comments no acute events comfortable stable no n/v Objective Last 24 Hour Vital Signs Date Time Temp Pulse Resp B/P (MAP) Pulse Ox O2 Delivery O2 Flow Rate FiO2 09/13/20 09:00 Nasal Cannula 2.0 09/13/20 08:00 96.8 61 21 102/61 (75) 95 09/13/20 08:00 49 09/13/20 04:00 99.5 55 20 101/56 (71) 98 09/13/20 03:35 58 09/13/20 00:00 99.2 65 20 109/62 (78) 98 09/12/20 23:37 64 09/12/20 20:05 98 Nasal Cannula 2.0 28 09/12/20 20:00 Nasal Cannula 2.0 09/12/20 20:00 65 09/12/20 20:00 99.0 55 20 101/64 (76) 98 09/12/20 16:00 60 09/12/20 16:00 98.1 73 20 112/97 (102) 98 09/12/20 16:00 Nasal Cannula 2.0 09/12/20 12:00 56 09/12/20 12:00 96.8 63 21 110/69 (83) 99 09/12/20 12:00 Nasal Cannula 2.0 I&O Intake and Output 09/12/20 09/13/20 19:00 07:00 Intake Total 1733.0 ml Output Total 50 ml 700 ml Balance -50 ml 1033.0 ml IV Total 1733.0 ml Output Urine Total 50 ml 700 ml Dressing: other Wound: other Cardiovascular: RSR Respiratory: decreased breath sounds Abdomen: soft, non-tender, present bowel sounds Extremities: no cyanosis Laboratory Tests Test 09/13/20 07:00 White Blood Count 8.6 K/UL (4.8-10.8) Red Blood Count 3.64 M/UL (4.70-6.10) L Hemoglobin 10.4 G/DL (14.2-18.0) L Hematocrit 30.7 % (42.0-52.0) L Mean Corpuscular Volume 84 FL (80-99) Mean Corpuscular Hemoglobin 28.7 PG (27.0-31.0) Mean Corpuscular Hemoglobin Concent 34.0 G/DL (32.0-36.0) Red Cell Distribution Width 13.4 % (11.6-14.8) Platelet Count 163 K/UL (150-450) Mean Platelet Volume 9.5 FL (6.5-10.1) Neutrophils (%) (Auto) 77.9 % (45.0-75.0) H Lymphocytes (%) (Auto) 11.1 % (20.0-45.0) L Monocytes (%) (Auto) 9.0 % (1.0-10.0) Eosinophils (%) (Auto) 1.4 % (0.0-3.0) Basophils (%) (Auto) 0.6 % (0.0-2.0) Sodium Level 147 MMOL/L (136-145) H Potassium Level 4.0 MMOL/L (3.5-5.1) Chloride Level 116 MMOL/L (98-107) H Carbon Dioxide Level 25 MMOL/L (21-32) Anion Gap 6 mmol/L (5-15) Blood Urea Nitrogen 34 mg/dL (7-18) H Creatinine 1.0 MG/DL (0.55-1.30) Estimat Glomerular Filtration Rate > 60 mL/min (>60) Glucose Level 121 MG/DL (74-106) H Calcium Level 7.8 MG/DL (8.5-10.1) L Total Bilirubin 0.4 MG/DL (0.2-1.0) Aspartate Amino Transf (AST/SGOT) 40 U/L (15-37) H Alanine Aminotransferase (ALT/SGPT) 25 U/L (12-78) Alkaline Phosphatase 48 U/L (46-116) Total Protein 5.3 G/DL (6.4-8.2) L Albumin 2.1 G/DL (3.4-5.0) L Globulin 3.2 g/dL Albumin/Globulin Ratio 0.7 (1.0-2.7) L Vancomycin Level Trough 8.0 ug/mL (5.0-12.0) Plan Problems: (1) Fever (2) Decubitus skin ulcer Assessment & Plan: Patient identified on admission to have multiple scabs on the left arm. mild open scabs with eschar. no drainage. no significant cellulitis. bruising no bilateral extremities noted. no signs of abuse. likely from agitation Sacral coccygeal noted to have a DTI 4.3X2.5CM. which is dark purple . RECOMMEND-CLEAN WITH SALINE, PAT DRY AND APPLY CALAZINE. COVER WITH OPTIFOAM DRESSING. REPLACE EVERY 3 DAYS OR NEEDED LEFT ISCHIUM- STAGE I PRESSURE ULCER MEASURES 4.5X1.7CM. NON-BLANCHABLE ERYTHEMA. RECOMMEND- APPLY CALAZINE AND COVER WITH OPTIFOAM DRESSING. REPLACE EVERY 7 DAYS. 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 Roman is a 70 year old [place] [facility] [place]. He was found to be hypotensive 91/55 (67), Temp: 100.0, leukocytosis 20.8k and subsequently transferred to ICU for septic shock. The blood culture is reportedly positive for gram positive cocci. NG tube was placed, KUB confirmed the placement to day. Pt is clinically stable with leukocytosis 20.1, improved BUN and creatine, stable hemodynamic without vasopressor. Findings: Mr. Roman is disoriented. He does ot follow commands at this time. Oral cavity is noted to be dried blood concretion likely from NG trauma. No active bleeding site is seen. Due to his level f alertness, already NG tube is in placed, PO trial was not done at this time. Transferred out ICU last night. He is non on tele. Issues: multiple wounds, s.p balaji/nasal/pharyngeal bleeding with blood culture Gram positive cocci leukocytosis trending down from 20k-20k-16k BUN/Creatine trending down from 93/1.9-79/1.3-54/1.1 Temp: 98.1~98.7, Pulse: 62~72, BP: 105/67~120/48, SPO2 98~100% on 2 liter S: Oral cavity is better condition comparison to yesterday. The mucosa is severely erythema without active bleeding. Limited level of alertness for direct therapy. NG in placed O: 1. Laryngeal palpation to trigger spontaneous cough and swallow: Pt tri ggered cough with laryngeal palpation. Approximately 5~10 seconds after coughing, he triggered swallow. based on this observation, he presents with copious secretion in pharynx and larynx. He continued to have poor secretion management at laryngeal level at this time. NO PO trial was given due to poor secretion at the level of air way with low level of alertness. A: 1. Probable aspiration of his own secretion with poor ability to cough and swallow 2. Dysphagia P: 1. NPO for now 2. Observe his secretion, and level of alertness for PO readiness. (4) Severe sepsis (5) Open upper arm wound Aubrey Gutierrez Sep 13, 2020 11:25
--- NOTE | 2020-09-13 11:30 | NUR ---
NURSE NOTES: Seen by Dr Villasenor today, orders noted and carried out; made aware of dried blood in patient's right nare and oral cavity, no orders given. Feeding with Jevity 1.2 x 30cc/hr started via NG tube. Seen by Dr Brunson.
--- NOTE | 2020-09-13 11:35 | Nephrology Progress Note ---
Assessment/Plan Plan TYRELL + Hypernatremia - Hypotonic IVF. Na 150-->147 Sepsis iv abx Subjective Subjective Confused Objective Objective Last 24 Hour Vital Signs Date Time Temp Pulse Resp B/P (MAP) Pulse Ox O2 Delivery O2 Flow Rate FiO2 09/13/20 09:00 Nasal Cannula 2.0 09/13/20 08:00 96.8 61 21 102/61 (75) 95 09/13/20 08:00 49 09/13/20 04:00 99.5 55 20 101/56 (71) 98 09/13/20 03:35 58 09/13/20 00:00 99.2 65 20 109/62 (78) 98 09/12/20 23:37 64 09/12/20 20:05 98 Nasal Cannula 2.0 28 09/12/20 20:00 Nasal Cannula 2.0 09/12/20 20:00 65 09/12/20 20:00 99.0 55 20 101/64 (76) 98 09/12/20 16:00 60 09/12/20 16:00 98.1 73 20 112/97 (102) 98 09/12/20 16:00 Nasal Cannula 2.0 09/12/20 12:00 56 09/12/20 12:00 96.8 63 21 110/69 (83) 99 09/12/20 12:00 Nasal Cannula 2.0 Intake and Output 09/12/20 09/13/20 19:00 07:00 Intake Total 1733.0 ml Output Total 50 ml 700 ml Balance -50 ml 1033.0 ml IV Total 1733.0 ml Output Urine Total 50 ml 700 ml Laboratory Tests 09/13/20 07:00: White Blood Count 8.6, Red Blood Count 3.64L, Hemoglobin 10.4L, Hematocrit 30.7L , Mean Corpuscular Volume 84, Mean Corpuscular Hemoglobin 28.7, Mean Corpuscular Hemoglobin Concent 34.0, Red Cell Distribution Width 13.4, Platelet Count 163, Mean Platelet Volume 9.5, Neutrophils (%) (Auto) 77.9H, Lymphocytes (%) (Auto) 11.1L, Monocytes (%) (Auto) 9.0, Eosinophils (%) (Auto) 1.4, Basophils (%) (Auto) 0.6, Sodium Level 147H, Potassium Level 4.0, Chloride Level 116H, Carbon Dioxide Level 25, Anion Gap 6, Blood Urea Nitrogen 34H, Creatinine 1.0, Estimat Glomerular Filtration Rate > 60, Glucose Level 121H, Calcium Level 7.8L, Total Bilirubin 0.4, Aspartate Amino Transf (AST/SGOT) 40H, Alanine Aminotransferase (ALT/SGPT) 25, Alkaline Phosphatase 48, Total Protein 5.3L, Albumin 2.1L, Globulin 3.2, Albumin/Globulin Ratio 0.7L, Vancomycin Level Trough 8.0 Height (Feet): 5 Height (Inches): 7.00 Weight (Pounds): 121 Objective Bilnd CV RR Lungs B Millie Joseph SNT. BS + E No CCE Tess Schrader MD Sep 13, 2020 11:35
[2020-09-13 12:00] VITALS: BP 109/54
--- NOTE | 2020-09-13 13:14 | Infectious Diseases Prog Note ---
Assessment/Plan Assessment/Plan A 1. Pneumonia COVID19 test is negative. 2. Dementia. 3. Leukocytosis resolved 4. Urinary tract infection 5. 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 BPH P 1. continue Zosyn 2. will follow up cultures Subjective ROS Limited/Unobtainable: Yes Constitutional: Denies: fever Neurologic: Reports: confusion, other - on restraint Allergies: Coded Allergies: No Known Allergies (Unverified , 09/10/20) Objective Last 24 Hour Vital Signs Date Time Temp Pulse Resp B/P (MAP) Pulse Ox O2 Delivery O2 Flow Rate FiO2 09/13/20 12:00 97.2 87 22 109/54 (72) 96 09/13/20 09:00 Nasal Cannula 2.0 09/13/20 08:50 97 Nasal Cannula 2.0 28 09/13/20 08:00 96.8 61 21 102/61 (75) 95 09/13/20 08:00 49 09/13/20 04:00 99.5 55 20 101/56 (71) 98 09/13/20 03:35 58 09/13/20 00:00 99.2 65 20 109/62 (78) 98 09/12/20 23:37 64 09/12/20 20:05 98 Nasal Cannula 2.0 28 09/12/20 20:00 Nasal Cannula 2.0 09/12/20 20:00 65 09/12/20 20:00 99.0 55 20 101/64 (76) 98 09/12/20 16:00 60 09/12/20 16:00 98.1 73 20 112/97 (102) 98 09/12/20 16:00 Nasal Cannula 2.0 Height (Feet): 5 Height (Inches): 7.00 Weight (Pounds): 121 HEENT: mucous membranes moist Respiratory/Chest: normal breath sounds Cardiovascular: normal rate Abdomen: soft, non tender, other - NG tube Genitourinary: other - Rae catheter, hematuria Neurologic/Psychiatric: other - sleeping Microbiology Date/Time Source Procedure Growth Status 09/10/20 20:05 Urine,Clean Catch Urine Culture - Final NO GROWTH AFTER 48 HOURS Complete 09/10/20 17:15 Rectum VRE Culture - Final Enterococcus Faecalis - Vre Complete 09/10/20 17:15 Rectum - Final NO CARBAPENEM-RESISTANT ENTEROBACTERI... Complete 09/10/20 17:15 Nasal Nares MRSA Culture - Final Staphylococcus Aureus - Mrsa Complete 09/10/20 16:00 Nasopharynx Coronavirus COVID-19 PCR (CARLIE) - Final Complete 09/10/20 15:51 Blood Blood Culture - Final Staphylococcus Epidermidis Complete 09/10/20 15:41 Blood Blood Culture - Final Staphylococcus Epidermidis Complete Laboratory Tests Test 09/13/20 07:00 White Blood Count 8.6 K/UL (4.8-10.8) Red Blood Count 3.64 M/UL (4.70-6.10) L Hemoglobin 10.4 G/DL (14.2-18.0) L Hematocrit 30.7 % (42.0-52.0) L Mean Corpuscular Volume 84 FL (80-99) Mean Corpuscular Hemoglobin 28.7 PG (27.0-31.0) Mean Corpuscular Hemoglobin Concent 34.0 G/DL (32.0-36.0) Red Cell Distribution Width 13.4 % (11.6-14.8) Platelet Count 163 K/UL (150-450) Mean Platelet Volume 9.5 FL (6.5-10.1) Neutrophils (%) (Auto) 77.9 % (45.0-75.0) H Lymphocytes (%) (Auto) 11.1 % (20.0-45.0) L Monocytes (%) (Auto) 9.0 % (1.0-10.0) Eosinophils (%) (Auto) 1.4 % (0.0-3.0) Basophils (%) (Auto) 0.6 % (0.0-2.0) Sodium Level 147 MMOL/L (136-145) H Potassium Level 4.0 MMOL/L (3.5-5.1) Chloride Level 116 MMOL/L (98-107) H Carbon Dioxide Level 25 MMOL/L (21-32) Anion Gap 6 mmol/L (5-15) Blood Urea Nitrogen 34 mg/dL (7-18) H Creatinine 1.0 MG/DL (0.55-1.30) Estimat Glomerular Filtration Rate > 60 mL/min (>60) Glucose Level 121 MG/DL (74-106) H Calcium Level 7.8 MG/DL (8.5-10.1) L Total Bilirubin 0.4 MG/DL (0.2-1.0) Aspartate Amino Transf (AST/SGOT) 40 U/L (15-37) H Alanine Aminotransferase (ALT/SGPT) 25 U/L (12-78) Alkaline Phosphatase 48 U/L (46-116) Total Protein 5.3 G/DL (6.4-8.2) L Albumin 2.1 G/DL (3.4-5.0) L Globulin 3.2 g/dL Albumin/Globulin Ratio 0.7 (1.0-2.7) L Vancomycin Level Trough 8.0 ug/mL (5.0-12.0) Current Medications Medications (Trade) Dose Ordered Sig/Aleksander Route PRN Reason Start Time Stop Time Status Last Admin Dose Admin Acetaminophen (Tylenol) 650 mg Q4H PRN NG Temp >100.5 09/10/20 23:15 10/10/20 23:14 Al Hydroxide/Mg Hydroxide (Mylanta) 30 ml Q4H PRN NG Constipation 09/11/20 00:15 10/10/20 23:14 Barium Sulfate (Varibar Honey) 250 ml NOW PRN MC RAD 09/11/20 08:30 09/14/20 08:21 Barium Sulfate (Varibar [place]) 240 ml NOW PRN MC RAD 09/11/20 08:30 09/14/20 08:21 Barium Sulfate (Varibar Pudding) 230 ml NOW PRN RAD 09/11/20 08:30 09/14/20 08:21 Barium Sulfate (Varibar Thin Liquid powder) 148 gm NOW PRN RAD 09/11/20 08:30 09/14/20 08:21 Dextrose/ Electrolytes 1,000 ml @ 125 mls/hr Q8H IV 09/11/20 17:00 10/11/20 16:59 09/13/20 12:40 Divalproex Sodium (Depakote Sprinkles) 1,000 mg BEDTIME NG 09/11/20 03:00 10/11/20 02:59 09/12/20 21:01 Finasteride (Proscar) 5 mg DAILY ORAL 09/13/20 09:00 12/12/20 08:59 09/13/20 08:39 Ondansetron HCl (Zofran) 4 mg Q6H PRN IVP Nausea & Vomiting 09/10/20 23:15 10/10/20 23:14 Pantoprazole (Protonix) 40 mg DAILY IVP 09/11/20 09:00 10/11/20 08:59 09/13/20 08:39 Piperacillin Sod/ Tazobactam Sod 3.375 gm/Sodium Chloride 110 ml @ 27.5 mls/hr Q8H IVPB 09/11/20 02:00 09/18/20 01:59 09/13/20 10:38 Tamsulosin HCl (Flomax) 0.4 mg BEDTIME ORAL 09/12/20 21:00 10/12/20 20:59 09/12/20 21:01 Bradley Gil MD Sep 13, 2020 13:14
[2020-09-13] MEDS ORDERED: 1/2 NS 1000ml IV ONE (14:20)
[2020-09-13 16:00] VITALS: BP 118/81
--- NOTE | 2020-09-13 18:32 | NUR ---
NURSE HAND-OFF REPORT: Important Events on Shift:feeding started. urine dark orange, seen by dr lloyd Patient Status: lethargic, but turns around to the left side in bed. Diet: Jevity 1.2 x 30cc/hr via NGT Pending Orders: Pending Results/Labs: Pending MD notification: Latest Vital Signs: Temperature 98.7 , Pulse 65 , B/P 118 /81 , Respiratory Rate 21 , O2 SAT 96 , Nasal Cannula, O2 Flow Rate 2.0 . Vital Sign Comment: EKG Rhythm: Sinus Rhythm Rhythm change?: N MD Notified?: Y -dr charmaine BENITEZ Response: Latest Schultz Fall Score: 50 Fall Risk: High Risk Safety Measures: Call light Within Reach, Bed Alarm Zone 1, Side Rails Side Rails x3, Bed position Low and Locked. Fall Precautions: Yellow Socks Door Sign Patient Fall Education . Addendum: 09/13/20 at 1927 by Hillary Salmeron RN HAND-OFF: Report given to Malia LANCASTER
[2020-09-13 20:00] VITALS: BP 101/61
[2020-09-13] MEDS: Tamsulosin 0.4mg cap ORAL SCH (20:59)
[2020-09-13] MEDS: Depakote 125mg Sprinkles NG SCH (20:59)
--- NOTE | 2020-09-13 23:16 | Cardiology Progress Note ---
Subjective DATE OF SERVICE: Sep 13, 2020 BP responded to fluid challenges on admit; did not require pressors. Labs remain abnormal with elev WBC and Na+; patient remains on hypotonic IVF. No SOB. Monitor: sinus bradycardia during sleep (high 40's) Objective Last 24 Hour Vital Signs Date Time Temp Pulse Resp B/P (MAP) Pulse Ox O2 Delivery O2 Flow Rate FiO2 09/13/20 21:00 Nasal Cannula 2.0 09/13/20 20:00 59 09/13/20 20:00 99.0 62 24 101/61 (74) 100 09/13/20 16:00 65 09/13/20 16:00 98.7 79 21 118/81 (93) 96 09/13/20 12:00 97.2 87 22 109/54 (72) 96 09/13/20 12:00 62 09/13/20 09:00 Nasal Cannula 2.0 09/13/20 08:50 97 Nasal Cannula 2.0 28 09/13/20 08:00 96.8 61 21 102/61 (75) 95 09/13/20 08:00 49 09/13/20 04:00 99.5 55 20 101/56 (71) 98 09/13/20 03:35 58 09/13/20 00:00 99.2 65 20 109/62 (78) 98 09/12/20 23:37 64 ROS: no change from my evaluation of 09/10/20. HEENT: normal ENT inspection RHYTHM: NSR, ST LUNGS: rales right CARDIAC: normal rate, regular rhythm, normal S1 and S2 ABDOMEN: normal bowel sounds, soft, other - sacral decub Laboratory Tests Test 09/13/20 07:00 White Blood Count 8.6 K/UL (4.8-10.8) Red Blood Count 3.64 M/UL (4.70-6.10) L Hemoglobin 10.4 G/DL (14.2-18.0) L Hematocrit 30.7 % (42.0-52.0) L Mean Corpuscular Volume 84 FL (80-99) Mean Corpuscular Hemoglobin 28.7 PG (27.0-31.0) Mean Corpuscular Hemoglobin Concent 34.0 G/DL (32.0-36.0) Red Cell Distribution Width 13.4 % (11.6-14.8) Platelet Count 163 K/UL (150-450) Mean Platelet Volume 9.5 FL (6.5-10.1) Neutrophils (%) (Auto) 77.9 % (45.0-75.0) H Lymphocytes (%) (Auto) 11.1 % (20.0-45.0) L Monocytes (%) (Auto) 9.0 % (1.0-10.0) Eosinophils (%) (Auto) 1.4 % (0.0-3.0) Basophils (%) (Auto) 0.6 % (0.0-2.0) Sodium Level 147 MMOL/L (136-145) H Potassium Level 4.0 MMOL/L (3.5-5.1) Chloride Level 116 MMOL/L (98-107) H Carbon Dioxide Level 25 MMOL/L (21-32) Anion Gap 6 mmol/L (5-15) Blood Urea Nitrogen 34 mg/dL (7-18) H Creatinine 1.0 MG/DL (0.55-1.30) Estimat Glomerular Filtration Rate > 60 mL/min (>60) Glucose Level 121 MG/DL (74-106) H Calcium Level 7.8 MG/DL (8.5-10.1) L Total Bilirubin 0.4 MG/DL (0.2-1.0) Aspartate Amino Transf (AST/SGOT) 40 U/L (15-37) H Alanine Aminotransferase (ALT/SGPT) 25 U/L (12-78) Alkaline Phosphatase 48 U/L (46-116) Total Protein 5.3 G/DL (6.4-8.2) L Albumin 2.1 G/DL (3.4-5.0) L Globulin 3.2 g/dL Albumin/Globulin Ratio 0.7 (1.0-2.7) L Vancomycin Level Trough 8.0 ug/mL (5.0-12.0) Assessment/Plan Assessment/Plan Sepsis Leukocytosis Recovering shock Hypovolemia Dehydration/hypernatremia Acute myocardial ischemia Acute renal failure HC assoc PNA UTI CVA/dementia Sinus bradycardia Remains CRITICAL & GUARDED IVF Antimicrobials Replace lytes DVT prophyl Cardiac monitoring Hypotonic IVF hydration No indication for pacemaker at present. Madi Rios MD Sep 13, 2020 23:16
[2020-09-14] VITALS: BP 107/65
[2020-09-14] MEDS: Piperacillin/Tazobactam 3.375 GM in NS 110 ML IVPB SCH ×3 (01:54→17:44)
[2020-09-14] MEDS: D5W w/KCl 20mEq 1,000 ML IV SCH ×3 (02:10→21:20)
[2020-09-14 04:00] VITALS: BP 112/74
--- NOTE | 2020-09-14 07:21 | NUR ---
NURSE HAND-OFF REPORT: Important Events on Shift:[] Patient Status: [] Diet: [Jevity 1.2 @ 30cc/hr] Pending Orders: [] Pending Results/Labs:[] Pending MD notification:[] Latest Vital Signs: Temperature 97.5 , Pulse 64 , B/P 112 /74 , Respiratory Rate 24 , O2 SAT 100 , Nasal Cannula, O2 Flow Rate 2.0 . Vital Sign Comment: [] EKG Rhythm: Sinus Rhythm Rhythm change?: N MD Notified?: Y -dr charmaine BENITEZ Response: Latest Schultz Fall Score: 50 Fall Risk: High Risk Safety Measures: Call light Within Reach, Bed Alarm Zone 1, Side Rails Side Rails x3, Bed position Low and Locked. Fall Precautions: Yellow Socks Door Sign Patient Fall Education Report given to [Nichole RN].
--- NOTE | 2020-09-14 07:23 | NUR ---
NURSE NOTES: Patient was seen in bed with no signs of acute distress and receiving gevity 1.2 via NGT at 30 cc/hour. The bed was placed in the lowest position and locked, bed alarm was set to zone 1, call light within reach and bed rails were placed x3.
--- NOTE | 2020-09-14 07:51 | NUR ---
CASE MANAGEMENT:REVIEW 09/14/20 SI:SEPSIS. PNA. TYRELL SINUS KENROY DURING SLEEP 97.5 61 24 112/74 100% ON 2L/NC IS: IV ZOSYN Q8HRS IVF@125/HR : TELEMETRY STATUS [facility]
[2020-09-14 08:00] VITALS: BP 118/74
--- NOTE | 2020-09-14 09:37 | General Progress Note ---
Subjective Allergies: Coded Allergies: No Known Allergies (Unverified , 09/10/20) Subjective remains confused on oxygen Objective Last 24 Hour Vital Signs Date Time Temp Pulse Resp B/P (MAP) Pulse Ox O2 Delivery O2 Flow Rate FiO2 09/14/20 04:00 61 09/14/20 04:00 97.5 64 24 112/74 (87) 100 09/14/20 00:00 64 09/14/20 00:00 98.2 62 24 107/65 (79) 100 09/13/20 21:00 Nasal Cannula 2.0 09/13/20 20:00 59 09/13/20 20:00 99.0 62 24 101/61 (74) 100 09/13/20 16:00 65 09/13/20 16:00 98.7 79 21 118/81 (93) 96 09/13/20 12:00 97.2 87 22 109/54 (72) 96 09/13/20 12:00 62 Intake and Output 09/13/20 09/14/20 19:00 07:00 Intake Total 30 ml Output Total 900 ml Balance -870 ml Tube Feeding 30 ml Output Urine Total 900 ml Height (Feet): 5 Height (Inches): 7.00 Weight (Pounds): 121 Objective WDWN NAD reduced breath sounds bilaterally without rhonchi or wheeze [id number] without MRG NABS nontender no HSM no CCE nonfocal remains confused Assessment/Plan Assessment/Plan: IMPRESSION: 1. Acute renal failure. 2. Hypernatremia. 3. Leukocytosis. 4. Possible sepsis. 5. Hypotension. 6. Dementia. 7. Acute on chronic encephalopathy. 8. bcx staph Epi 9. MRSA colonized PLAN hydrate- hypotonic fluids PT ID noted; on zosyn only follow up cultures renal follow up needs placement impression, plan, and exam edited and reviewed in detail care discussed with Paetl Tesfaye MD Sep 14, 2020 09:37
[2020-09-14] MEDS: Pantoprazole Inj IVP SCH (09:38)
--- NOTE | 2020-09-14 09:56 | Urology Progress Note ---
Assessment/Plan Assessment/Plan: 1. Gross hematuria. 2. Pyuria and possible UTI. 3. Proteinuria. 4. BPH. 5. Urinary retention. 6. Probable neurogenic bladder. 7. Possible sepsis. monitor clinically maintain andrade hand irrigated and do PRN abx as ordered flomax and proscar added cysto electively voiding trial at some point? Subjective Allergies: Coded Allergies: No Known Allergies (Unverified , 09/10/20) Subjective non-verbal Objective Last 24 Hour Vital Signs Date Time Temp Pulse Resp B/P (MAP) Pulse Ox O2 Delivery O2 Flow Rate FiO2 09/14/20 04:00 61 09/14/20 04:00 97.5 64 24 112/74 (87) 100 09/14/20 00:00 64 09/14/20 00:00 98.2 62 24 107/65 (79) 100 09/13/20 21:00 Nasal Cannula 2.0 09/13/20 20:00 59 09/13/20 20:00 99.0 62 24 101/61 (74) 100 09/13/20 16:00 65 09/13/20 16:00 98.7 79 21 118/81 (93) 96 09/13/20 12:00 97.2 87 22 109/54 (72) 96 09/13/20 12:00 62 Intake and Output 09/13/20 09/14/20 19:00 07:00 Intake Total 30 ml Output Total 900 ml Balance -870 ml Tube Feeding 30 ml Output Urine Total 900 ml Microbiology Date/Time Source Procedure Growth Status 09/10/20 20:05 Urine,Clean Catch Urine Culture - Final NO GROWTH AFTER 48 HOURS Complete 09/10/20 17:15 Rectum VRE Culture - Final Enterococcus Faecalis - Vre Complete 09/10/20 17:15 Nasal Nares MRSA Culture - Final Staphylococcus Aureus - Mrsa Complete 09/10/20 15:51 Blood Blood Culture - Final Staphylococcus Epidermidis Complete Current Medications Medications (Trade) Dose Ordered Sig/Aleksander Route PRN Reason Start Time Stop Time Status Last Admin Dose Admin Acetaminophen (Tylenol) 650 mg Q4H PRN NG Temp >100.5 09/10/20 23:15 10/10/20 23:14 Al Hydroxide/Mg Hydroxide (Mylanta) 30 ml Q4H PRN NG Constipation 09/11/20 00:15 10/10/20 23:14 Dextrose/ Electrolytes 1,000 ml @ 125 mls/hr Q8H IV 09/11/20 17:00 10/11/20 16:59 09/14/20 02:10 Divalproex Sodium (Depakote Sprinkles) 1,000 mg BEDTIME NG 09/11/20 03:00 10/11/20 02:59 09/13/20 20:59 Finasteride (Proscar) 5 mg DAILY ORAL 09/13/20 09:00 12/12/20 08:59 09/14/20 09:38 Ondansetron HCl (Zofran) 4 mg Q6H PRN IVP Nausea & Vomiting 09/10/20 23:15 10/10/20 23:14 Pantoprazole (Protonix) 40 mg DAILY IVP 09/11/20 09:00 10/11/20 08:59 09/14/20 09:38 Piperacillin Sod/ Tazobactam Sod 3.375 gm/Sodium Chloride 110 ml @ 27.5 mls/hr Q8H IVPB 09/11/20 02:00 09/18/20 01:59 09/14/20 09:40 Tamsulosin HCl (Flomax) 0.4 mg BEDTIME ORAL 09/12/20 21:00 10/12/20 20:59 09/13/20 20:59 Height (Feet): 5 Height (Inches): 7.00 Weight (Pounds): 121 Objective exam stable urine clearing Levi Brunson MD Sep 14, 2020 09:55
--- NOTE | 2020-09-14 10:13 | NUR ---
*-*DISCHARGE PLANNING*-* PATIENT HAS BEEN REFERRED TO: MATTHEW VELARDE P: [phone] & LEE VALENTINE P: [phone]
--- NOTE | 2020-09-14 10:58 | Infectious Diseases Prog Note ---
Assessment/Plan Assessment/Plan antibiotics : zosyn A 1. Pneumonia COVID-19 test is negative. 2. Dementia. 3. Leukocytosis improving 4. Urinary tract infection 5. + blood cultures with coag neg staph likely contaminated P 1. continue zosyn 3 more days 2. will follow up cultures Subjective ROS Limited/Unobtainable: Yes Allergies: Coded Allergies: No Known Allergies (Unverified , 09/10/20) Objective Last 24 Hour Vital Signs Date Time Temp Pulse Resp B/P (MAP) Pulse Ox O2 Delivery O2 Flow Rate FiO2 09/14/20 04:00 61 09/14/20 04:00 97.5 64 24 112/74 (87) 100 09/14/20 00:00 64 09/14/20 00:00 98.2 62 24 107/65 (79) 100 09/13/20 21:00 Nasal Cannula 2.0 09/13/20 20:00 59 09/13/20 20:00 99.0 62 24 101/61 (74) 100 09/13/20 16:00 65 09/13/20 16:00 98.7 79 21 118/81 (93) 96 09/13/20 12:00 97.2 87 22 109/54 (72) 96 09/13/20 12:00 62 Height (Feet): 5 Height (Inches): 7.00 Weight (Pounds): 121 Respiratory/Chest: lungs clear Cardiovascular: normal rate, regular rhythm, no gallop/murmur Abdomen: soft, non tender Extremities: no edema Current Medications Medications (Trade) Dose Ordered Sig/Aleksander Route PRN Reason Start Time Stop Time Status Last Admin Dose Admin Acetaminophen (Tylenol) 650 mg Q4H PRN NG Temp >100.5 09/10/20 23:15 10/10/20 23:14 Al Hydroxide/Mg Hydroxide (Mylanta) 30 ml Q4H PRN NG Constipation 09/11/20 00:15 10/10/20 23:14 Dextrose/ Electrolytes 1,000 ml @ 125 mls/hr Q8H IV 09/11/20 17:00 10/11/20 16:59 09/14/20 02:10 Divalproex Sodium (Depakote Sprinkles) 1,000 mg BEDTIME NG 09/11/20 03:00 10/11/20 02:59 09/13/20 20:59 Finasteride (Proscar) 5 mg DAILY ORAL 09/13/20 09:00 12/12/20 08:59 09/14/20 09:38 Ondansetron HCl (Zofran) 4 mg Q6H PRN IVP Nausea & Vomiting 09/10/20 23:15 10/10/20 23:14 Pantoprazole (Protonix) 40 mg DAILY IVP 09/11/20 09:00 10/11/20 08:59 09/14/20 09:38 Piperacillin Sod/ Tazobactam Sod 3.375 gm/Sodium Chloride 110 ml @ 27.5 mls/hr Q8H IVPB 09/11/20 02:00 09/18/20 01:59 09/14/20 09:40 Tamsulosin HCl (Flomax) 0.4 mg BEDTIME ORAL 09/12/20 21:00 10/12/20 20:59 09/13/20 20:59 Martha Collins MD Sep 14, 2020 10:58
[2020-09-14 12:00] VITALS: BP 128/74
--- NOTE | 2020-09-14 12:14 | NUR ---
RD ASSESSMENT & RECOMMENDATIONS SEE CARE ACTIVITY FOR COMPLETE ASSESSMENT DAILY ESTIMATED NEEDS: Needs based on Wound, underweight/ 55kg 30-35 kcals/kg 8395-7820 total kcals 1.25-2 g protein/kg 69-110 g total protein 25-30 mL/kg 8226-1753 total fluid mLs NUTRITION DIAGNOSIS: Increased kcal/prot needs R/T wound healing and underweight status a sevidenced by pt admitted w/ wounds including DTI 2 coccyx and stage 1 @ lt ischium, pt @ 73% IBW w/ low BMI per guidelines, s/p NGT insertion, on NGT feeds. CURRENT TF:Jevity 1.2 @ 30ml/hr x 24 hrs ENTERAL NUTRITION RECOMMENDATIONS: Jevity 1.2 @ 60ml/hr x 24 hrs to provide 1440ml, 1728kcal, 80g prot, 1160ml free water * Increase goal rate to 60ml/hr x 24 hrs to meet 100% est kcal/prot needs * Advance 10ml q 4-6 hrs as tolerated to goal rate * HOB over 30 degrees/ without IVF, H2O flush of 120ml q 6hrs ADDITIONAL RECOMMENDATIONS: * Calibrated daily bedscale wt Per SNF: HT=70" * Wound healing: TF rec @ goal will provide 100% RDI add Vit C 250mg QD, ZnSO4 220mg QD x 10days, Davidson BID via NGT * Monitor BGs, need for NISS w/ TF * Monitor lytes, replete as needed- high risk for refeeding syndrome
--- NOTE | 2020-09-14 12:50 | Nephrology Progress Note ---
Assessment/Plan Plan TYRELL + Hypernatremia - Hypotonic IVF. Na 150-->147 Sepsis iv abx Subjective Subjective Confused Objective Objective Last 24 Hour Vital Signs Date Time Temp Pulse Resp B/P (MAP) Pulse Ox O2 Delivery O2 Flow Rate FiO2 09/14/20 12:00 97.8 66 18 128/74 (92) 96 09/14/20 09:00 Nasal Cannula 2.0 09/14/20 08:00 65 09/14/20 08:00 98.3 68 17 118/74 (89) 100 09/14/20 04:00 61 09/14/20 04:00 97.5 64 24 112/74 (87) 100 09/14/20 00:00 64 09/14/20 00:00 98.2 62 24 107/65 (79) 100 09/13/20 21:00 Nasal Cannula 2.0 09/13/20 20:00 59 09/13/20 20:00 99.0 62 24 101/61 (74) 100 09/13/20 16:00 65 09/13/20 16:00 98.7 79 21 118/81 (93) 96 Intake and Output 09/13/20 09/14/20 19:00 07:00 Intake Total 30 ml Output Total 900 ml Balance -870 ml Tube Feeding 30 ml Output Urine Total 900 ml Height (Feet): 5 Height (Inches): 7.00 Weight (Pounds): 121 Objective Bilnd CV RR Lungs B Ronchi Abd SNT. BS + E No CCE Tess Schrader MD Sep 14, 2020 12:50
--- NOTE | 2020-09-14 13:36 | Surgery Progress Note ---
Surgery Progress Note Subjective Symptoms: improved Additional Comments leukocytosis resolved labs improved no n/v/f/c comfortable appearing Objective Last 24 Hour Vital Signs Date Time Temp Pulse Resp B/P (MAP) Pulse Ox O2 Delivery O2 Flow Rate FiO2 09/14/20 12:00 97.8 66 18 128/74 (92) 96 09/14/20 12:00 59 09/14/20 09:00 Nasal Cannula 2.0 09/14/20 08:00 65 09/14/20 08:00 98.3 68 17 118/74 (89) 100 09/14/20 04:00 61 09/14/20 04:00 97.5 64 24 112/74 (87) 100 09/14/20 00:00 64 09/14/20 00:00 98.2 62 24 107/65 (79) 100 09/13/20 21:00 Nasal Cannula 2.0 09/13/20 20:00 59 09/13/20 20:00 99.0 62 24 101/61 (74) 100 09/13/20 16:00 65 09/13/20 16:00 98.7 79 21 118/81 (93) 96 I&O Intake and Output 09/13/20 09/14/20 19:00 07:00 Intake Total 30 ml Output Total 900 ml Balance -870 ml Tube Feeding 30 ml Output Urine Total 900 ml Dressing: saturated Cardiovascular: RSR Respiratory: decreased breath sounds Abdomen: soft, non-tender, present bowel sounds Extremities: no tenderness, no cyanosis Plan Problems: (1) Fever (2) Decubitus skin ulcer Assessment & Plan: Patient identified on admission to have multiple scabs on the left arm. mild open scabs with eschar. no drainage. no significant cell ulitis. bruising no bilateral extremities noted. no signs of abuse. likely from agitation Sacral coccygeal noted to have a DTI 4.3X2.5CM. which is dark purple . RECOMMEND-CLEAN WITH SALINE, PAT DRY AND APPLY CALAZINE. COVER WITH OPTIFOAM DRESSING. REPLACE EVERY 3 DAYS OR NEEDED LEFT ISCHIUM- STAGE I PRESSURE ULCER MEASURES 4.5X1.7CM. NON-BLANCHABLE ERYTHEMA. RECOMMEND- APPLY CALAZINE AND COVER WITH OPTIFOAM DRESSING. REPLACE EVERY 7 DAYS. Turn q2h off load pressure with pillow off load heels nutritional optimization SECURITY RISK ANALYST eval will follow with recs thank you (3) Malnutrition Assessment & Plan: Mr. Roman is a 70 year old male BIBA to ED of [facility] on 09/10/2020 around 14:00 due to fever. He was found to be hypotensive 91/55 (67), Temp: 100.0, leukocytosis 20.8k and subsequently transferred to ICU for septic shock. The blood culture is reportedly positive for gram positive cocci. NG tube was placed, KUB confirmed the placement to day. Pt is clinically stable with leukocytosis 20.1, improved BUN and creatine, stable hemodynamic without vasopressor. Findings: Mr. Roman is disoriented. He does ot follow commands at this time. Oral cavity is noted to be dried blood concretion likely from NG trauma. No active bleeding site is seen. Due to his level f alertness, already NG tube is in placed, PO trial was not done at this time. Transferred out ICU last night. He is non on tele. Issues: multiple wounds, s.p balaji/nasal/pharyngeal bleeding with blood culture Gram positive cocci leukocytosis trending down from 20k-20k-16k BUN/Creatine trending down from 93/1.9-79/1.3-54/1.1 Temp: 98.1~98.7, Pulse: 62~72, BP: 105/67~120/48, SPO2 98~100% on 2 liter S: Oral cavity is better condition comparison to yesterday. The mucosa is severely erythema without active bleeding. Limited level of alertness for direct therapy. NG in placed O: 1. Laryngeal palpation to trigger spontaneous cough and swallow: Pt triggered cough with laryngeal palpation. Approximately 5~10 seconds after coughing, he triggered swallow. based on this observation, he presents with copious secretion in pharynx and la rynx. He continued to have poor secretion management at laryngeal level at this time. NO PO trial was given due to poor secretion at the level of air way with low level of alertness. A: 1. Probable aspiration of his own secretion with poor ability to cough and swallow 2. Dysphagia P: 1. NPO for now 2. Observe his secretion, and level of alertness for PO readiness. (4) Severe sepsis (5) Open upper arm wound (6) Hematuria Assessment & Plan: as per urology Aubrey Gutierrez Sep 14, 2020 13:36
[2020-09-14 16:00] VITALS: BP 142/72
--- NOTE | 2020-09-14 16:48 | NUR ---
Speech Pathology Note (Dysphagia Rx) Leukocytosis resolved. S: Pt is more awake. Talking randomly. His speech is a bit clearer and voice is stronger comparison to 09/12/2020 PM O: 1. PO trial: 2cc 10/22 size teaspoonful sorbet was given x 2. Pt exhibited inetrmittent cough during and after PO trial with concerning for laryngeal penetration at bedside. Pt continue d Addendum: 09/14/20 at 1655 by TUSHAR CORRAL REELING AND TUBING MACHINE OPERATOR continued to be high risk of aspiration. A: 1. Aspiration risk P: 1. NPO continue with NG
--- NOTE | 2020-09-14 19:37 | NUR ---
NURSE HAND-OFF REPORT: Important Events on Shift:[] Patient Status: [FULL CODE, stable] Diet: [jevity 1.2 at 30 cc] Pending Orders: [] Pending Results/Labs:[] Pending MD notification:[] Latest Vital Signs: Temperature 98.0 , Pulse 55 , B/P 142 /72 , Respiratory Rate 16 , O2 SAT 96 , Nasal Cannula, O2 Flow Rate 2.0 . Vital Sign Comment: [] EKG Rhythm: Sinus Bradycardia Rhythm change?: N MD Notified?: Bienvenido Rios MD Response: Latest Schultz Fall Score: 50 Fall Risk: High Risk Safety Measures: Call light Within Reach, Bed Alarm Zone 1, Side Rails Side Rails x3, Bed position Low and Locked. Fall Precautions: Yellow Socks Door Sign Patient Fall Education Report given to [Rosa Maria ULLOA].
--- NOTE | 2020-09-14 19:40 | NUR ---
NURSE NOTES: Patient received from ARTEMIO Bashir under the care of Dr. Villasenor for the admitting dx of Sepsis and PNA. Noted NKA and Full code status. Patient is non-alert but responsive to touch. Tolerating 2lpm via NC with no sign of acute distress noted at this time. Will continue to monitor.
[2020-09-14 20:00] VITALS: BP 117/71
[2020-09-14] MEDS: Depakote 125mg Sprinkles NG SCH (21:23)
[2020-09-14] MEDS: Tamsulosin 0.4mg cap ORAL SCH (21:23)
[2020-09-15] VITALS: BP 130/75
--- NOTE | 2020-09-15 | NUR ---
NURSE NOTES: Patient noted with dried blood around nares. Cleansed as much as possible. No active bleeding noted. Noted FLACC score of 0/10 at this time. Tolerating O2 vi NC well. Will continue to monitor.
[2020-09-15] MEDS: Piperacillin/Tazobactam 3.375 GM in NS 110 ML IVPB SCH ×3 (01:13→17:15)
--- NOTE | 2020-09-15 01:43 | Cardiology Progress Note ---
Subjective DATE OF SERVICE: Sep 14, 2020 BP responded to fluid challenges on admit; did not require pressors. BP remains stable. No SOB. Monitor: sinus bradycardia during sleep (high 40's) Objective Last 24 Hour Vital Signs Date Time Temp Pulse Resp B/P (MAP) Pulse Ox O2 Delivery O2 Flow Rate FiO2 09/15/20 00:00 98.1 70 21 130/75 (93) 95 09/14/20 21:00 Nasal Cannula 2.0 09/14/20 20:17 95 Nasal Cannula 2.0 28 09/14/20 20:00 97.9 67 19 117/71 (86) 95 09/14/20 20:00 66 09/14/20 16:00 55 09/14/20 16:00 98.0 73 16 142/72 (95) 96 09/14/20 12:00 97.8 66 18 128/74 (92) 96 09/14/20 12:00 59 09/14/20 09:00 Nasal Cannula 2.0 09/14/20 08:00 65 09/14/20 08:00 98.3 68 17 118/74 (89) 100 09/14/20 04:00 61 09/14/20 04:00 97.5 64 24 112/74 (87) 100 ROS: no change from my evaluation of 09/10/20. HEENT: normal ENT inspection RHYTHM: NSR, ST LUNGS: rales right CARDIAC: normal rate, regular rhythm, normal S1 and S2 ABDOMEN: normal bowel sounds, soft, other - sacral decub Assessment/Plan Assessment/Plan Sepsis Leukocytosis Recovering shock Hypovolemia Dehydration/hypernatremia Acute myocardial ischemia Acute renal failure HC assoc PNA UTI CVA/dementia Sinus bradycardia Remains CRITICAL & GUARDED IVF Antimicrobials Replace lytes as needed DVT prophyl Cardiac monitoring Hypotonic IVF hydration No indication for pacemaker at present. Madi Rios MD Sep 15, 2020 01:43
[2020-09-15] MEDS: D5W w/KCl 20mEq 1,000 ML IV SCH ×2 (03:48→10:53)
[2020-09-15 04:00] VITALS: BP 126/72
--- NOTE | 2020-09-15 04:00 | NUR ---
NURSE NOTES: Patient asleep and no acute distress noted at this time. NGT continues to be patent, and flushing well. Gastric contents noted when aspirating NGT. Will continue to monitor.
[2020-09-15 06:24] LABS: ANION GAP 8 mmol/L (5-15); BLOOD UREA NITROGEN 28 mg/dL (7-18); CALCIUM 8.1 MG/DL (8.5-10.1); CARBON DIOXIDE 23 MMOL/L (21-32); CHLORIDE 111 MMOL/L (98-107); CREATININE 1.2 MG/DL (0.55-1.30); POTASSIUM 4.3 MMOL/L (3.5-5.1); SODIUM 142 MMOL/L (136-145)
--- NOTE | 2020-09-15 07:30 | NUR ---
NURSE HAND-OFF REPORT: Important Events on Shift: *- Patient Status: Stable Diet: NGT Pending Orders: Pending Results/Labs: Pending MD notification: Latest Vital Signs: Temperature 98.3 , Pulse 73 , B/P 126 /72 , Respiratory Rate 20 , O2 SAT 97 , Nasal Cannula, O2 Flow Rate 2.0 . Vital Sign Comment: EKG Rhythm: Sinus Rhythm Rhythm change?: N MD Notified?: Y -Dr. Gabriel BENITEZ Response: Latest Schultz Fall Score: 50 Fall Risk: High Risk Safety Measures: Call light Within Reach, Bed Alarm Zone 1, Side Rails Side Rails x3, Bed position Low and Locked. Fall Precautions: Yellow Socks Door Sign Patient Fall Education Report given to ARTEMIO Phillip.
--- NOTE | 2020-09-15 07:36 | NUR ---
NURSE NOTES: Pt received from Rosa Maria ULLOA. Pt in bed sleeping, NG tube in place and running at 30cc. d5 20 K running at 125cc in left forearm. no sign of pain or distress at this time. bed low and locked. call light within reach.
[2020-09-15 08:00] VITALS: BP 113/72
[2020-09-15] MEDS: Pantoprazole Inj IVP SCH (08:06)
--- NOTE | 2020-09-15 08:30 | NUR ---
NURSE NOTES: 100ml residual noted. feeding turned off.
--- NOTE | 2020-09-15 09:06 | Urology Progress Note ---
Assessment/Plan Assessment/Plan: 1. Gross hematuria. 2. Pyuria and possible UTI. 3. Proteinuria. 4. BPH. 5. Urinary retention. 6. Probable neurogenic bladder. 7. Possible sepsis. monitor clinically maintain andrade hand irrigated and do PRN abx as ordered flomax and proscar added cysto electively voiding trial at some point? Subjective Allergies: Coded Allergies: No Known Allergies (Unverified , 09/10/20) Subjective non-verbal NGT in place Objective Last 24 Hour Vital Signs Date Time Temp Pulse Resp B/P (MAP) Pulse Ox O2 Delivery O2 Flow Rate FiO2 09/15/20 08:00 98.3 73 22 113/72 (86) 93 09/15/20 04:00 73 09/15/20 04:00 98.3 74 20 126/72 (90) 97 09/15/20 00:00 98.1 70 21 130/75 (93) 95 09/14/20 21:00 Nasal Cannula 2.0 09/14/20 20:17 95 Nasal Cannula 2.0 28 09/14/20 20:00 97.9 67 19 117/71 (86) 95 09/14/20 20:00 66 09/14/20 16:00 55 09/14/20 16:00 98.0 73 16 142/72 (95) 96 09/14/20 12:00 97.8 66 18 128/74 (92) 96 09/14/20 12:00 59 Intake and Output 09/14/20 09/15/20 19:00 07:00 Intake Total 1685 ml 580 ml Output Total 1700 ml Balance 1685 ml -1120 ml Free Water 250 ml IV Total 1625 ml Tube Feeding 60 ml 330 ml Output Urine Total 1700 ml # Voids 2 # Bowel Movements 2 Laboratory Tests 09/15/20 04:40: Sodium Level 142, Potassium Level 4.3, Chloride Level 111H, Carbon Dioxide Level 23, Anion Gap 8, Blood Urea Nitrogen 28H, Creatinine 1.2, Estimat Glomerular Filtration Rate > 60, Glucose Level 97, Calcium Level 8.1L Microbiology Date/Time Source Procedure Growth Status 09/10/20 20:05 Urine,Clean Catch Urine Culture - Final NO GROWTH AFTER 48 HOURS Complete 09/10/20 17:15 Rectum VRE Culture - Final Enterococcus Faecalis - Vre Complete 09/10/20 17:15 Nasal Nares MRSA Culture - Final Staphylococcus Aureus - Mrsa Complete 09/10/20 15:51 Blood Blood Culture - Final Staphylococcus Epidermidis Complete Current Medications Medications (Trade) Dose Ordered Sig/Aleksander Route PRN Reason Start Time Stop Time Status Last Admin Dose Admin Acetaminophen (Tylenol) 650 mg Q4H PRN NG Temp >100.5 09/10/20 23:15 10/10/20 23:14 Al Hydroxide/Mg Hydroxide (Mylanta) 30 ml Q4H PRN NG Constipation 09/11/20 00:15 10/10/20 23:14 Dextrose/ Electrolytes 1,000 ml @ 125 mls/hr Q8H IV 09/11/20 17:00 10/11/20 16:59 09/15/20 03:48 Divalproex Sodium (Depakote Sprinkles) 1,000 mg BEDTIME NG 09/11/20 03:00 10/11/20 02:59 09/14/20 21:23 Finasteride (Proscar) 5 mg DAILY ORAL 09/13/20 09:00 12/12/20 08:59 09/15/20 08:06 Ondansetron HCl (Zofran) 4 mg Q6H PRN IVP Nausea & Vomiting 09/10/20 23:15 10/10/20 23:14 Pantoprazole (Protonix) 40 mg DAILY IVP 09/11/20 09:00 10/11/20 08:59 09/15/20 08:06 Piperacillin Sod/ Tazobactam Sod 3.375 gm/Sodium Chloride 110 ml @ 27.5 mls/hr Q8H IVPB 09/11/20 02:00 09/18/20 01:59 09/15/20 01:13 Tamsulosin HCl (Flomax) 0.4 mg BEDTIME ORAL 09/12/20 21:00 10/12/20 20:59 09/14/20 21:23 Height (Feet): 5 Height (Inches): 7.00 Weight (Pounds): 121 Objective exam stable urine clearing Levi Brunson MD Sep 15, 2020 09:06
--- NOTE | 2020-09-15 09:30 | NUR ---
NURSE NOTES: Called Dr Elliott to notify him of patient condition, desaturation, crackles, and decreased level of consciousness. no response yet
--- NOTE | 2020-09-15 10:00 | NUR ---
NURSE NOTES: Contacted RT and changed 02 source to simple mask, also did deep suction with bright red blood noted.
--- NOTE | 2020-09-15 11:00 | NUR ---
NURSE NOTES: Additional 80ml in gtube even though it has been off since morning. WIll tell Dr. Elliott when he calls back.
--- NOTE | 2020-09-15 11:15 | Diagnostic Imaging Report ---
EXAM: XR Chest, 1 View CLINICAL HISTORY: ABN LABS TECHNIQUE: Frontal view of the chest. COMPARISON: Chest radiograph on 09/10/2020 FINDINGS: Hardware: Enteric tube terminates in the region of the stomach. Lungs/pleura: Retrocardiac consolidation. Possible small left pleural effusion. Heart/mediastinum: Normal. No cardiomegaly. Soft tissues: Unremarkable. Bones: No acute fracture. Upper abdomen: Normal. IMPRESSION: 1. Increased retrocardiac consolidation may represent atelectasis versus pneumonia. Possible small left pleural effusion. 2. Enteric tube terminates in the region of the stomach.
--- NOTE | 2020-09-15 11:19 | Pulmonology Progress Note ---
Subjective ROS Limited/Unobtainable: Yes Constitutional: Denies: fever Allergies: Coded Allergies: No Known Allergies (Unverified , 09/10/20) Objective Last 24 Hour Vital Signs Date Time Temp Pulse Resp B/P (MAP) Pulse Ox O2 Delivery O2 Flow Rate FiO2 09/15/20 09:00 Nasal Cannula 6.0 09/15/20 08:00 98.3 73 22 113/72 (86) 93 09/15/20 04:00 73 09/15/20 04:00 98.3 74 20 126/72 (90) 97 09/15/20 00:00 98.1 70 21 130/75 (93) 95 09/14/20 21:00 Nasal Cannula 2.0 09/14/20 20:17 95 Nasal Cannula 2.0 28 09/14/20 20:00 97.9 67 19 117/71 (86) 95 09/14/20 20:00 66 09/14/20 16:00 55 09/14/20 16:00 98.0 73 16 142/72 (95) 96 09/14/20 12:00 97.8 66 18 128/74 (92) 96 09/14/20 12:00 59 Intake and Output 09/14/20 09/15/20 19:00 07:00 Intake Total 1685 ml 580 ml Output Total 1700 ml Balance 1685 ml -1120 ml Free Water 250 ml IV Total 1625 ml Tube Feeding 60 ml 330 ml Output Urine Total 1700 ml # Voids 2 # Bowel Movements 2 Laboratory Tests 09/15/20 04:40: Sodium Level 142, Potassium Level 4.3, Chloride Level 111H, Carbon Dioxide Level 23, Anion Gap 8, Blood Urea Nitrogen 28H, Creatinine 1.2, Estimat Glomerular Filtration Rate > 60, Glucose Level 97, Calcium Level 8.1L Current Medications Medications (Trade) Dose Ordered Sig/Aleksander Route PRN Reason Start Time Stop Time Status Last Admin Dose Admin Acetaminophen (Tylenol) 650 mg Q4H PRN NG Temp >100.5 09/10/20 23:15 10/10/20 23:14 Al Hydroxide/Mg Hydroxide (Mylanta) 30 ml Q4H PRN NG Constipation 09/11/20 00:15 10/10/20 23:14 Dextrose/ Electrolytes 1,000 ml @ 125 mls/hr Q8H IV 09/11/20 17:00 12/24/20 16:59 09/15/20 10:53 Divalproex Sodium (Depakote Sprinkles) 1,000 mg BEDTIME NG 09/11/20 03:00 10/11/20 02:59 09/14/20 21:23 Finasteride (Proscar) 5 mg DAILY ORAL 09/13/20 09:00 12/12/20 08:59 09/15/20 08:06 Ondansetron HCl (Zofran) 4 mg Q6H PRN IVP Nausea & Vomiting 09/10/20 23:15 10/10/20 23:14 Pantoprazole (Protonix) 40 mg DAILY IVP 09/11/20 09:00 10/11/20 08:59 09/15/20 08:06 Piperacillin Sod/ Tazobactam Sod 3.375 gm/Sodium Chloride 110 ml @ 27.5 mls/hr Q8H IVPB 09/11/20 02:00 09/18/20 01:59 09/15/20 09:38 Tamsulosin HCl (Flomax) 0.4 mg BEDTIME ORAL 09/12/20 21:00 10/12/20 20:59 09/14/20 21:23 Assessment/Plan Assessment/Plan Pulmonary Progress Note Subjective Allergies: Coded Allergies: No Known Allergies (Unverified , 09/10/20) Subjective remains confused on oxygen Objective Vital Signs noted Height (Feet): 5 Height (Inches): 7.00 Weight (Pounds): 121 Objective WDWN NAD reduced breath sounds bilaterally without rhonchi or wheeze [id number] without MRG NABS nontender no HSM no CCE nonfocal remains confused Assessment/Plan Assessment/Plan: IMPRESSION: 1. Acute renal failure. 2. Hypernatremia improving 3. Leukocytosis. 4. Possible sepsis. 5. Hypotension. 6. Dementia. 7. Acute on chronic encephalopathy. 8. bcx staph Epi 9. MRSA colonized PLAN hydrate PRN ID noted; on zosyn another 3 days follow up cultures renal follow up DC planning SNF impression, plan, and exam edited and reviewed in detail care discussed with Madi Richard MD Sep 15, 2020 11:19
[2020-09-15 12:00] VITALS: BP 117/64
--- NOTE | 2020-09-15 13:33 | NUR ---
NURSE NOTES: note proscar not given because pt has large amounts of residual, will inform Dr. sierra when he calls back.
--- NOTE | 2020-09-15 14:33 | Surgery Progress Note ---
Surgery Progress Note Subjective Additional Comments no acute events labs ordered exam stable no n/v desaturated cxr noted abg ordered Objective Last 24 Hour Vital Signs Date Time Temp Pulse Resp B/P (MAP) Pulse Ox O2 Delivery O2 Flow Rate FiO2 09/15/20 12:00 97.9 89 25 117/64 (81) 95 09/15/20 12:00 82 09/15/20 09:00 Simple Mask 10.0 09/15/20 08:00 98.3 73 22 113/72 (86) 93 09/15/20 08:00 75 09/15/20 04:00 73 09/15/20 04:00 98.3 74 20 126/72 (90) 97 09/15/20 00:00 98.1 70 21 130/75 (93) 95 09/14/20 21:00 Nasal Cannula 2.0 09/14/20 20:17 95 Nasal Cannula 2.0 28 09/14/20 20:00 97.9 67 19 117/71 (86) 95 09/14/20 20:00 66 09/14/20 16:00 55 09/14/20 16:00 98.0 73 16 142/72 (95) 96 I&O Intake and Output 09/14/20 09/15/20 19:00 07:00 Intake Total 1685 ml 580 ml Output Total 1700 ml Balance 1685 ml -1120 ml Free Water 250 ml IV Total 1625 ml Tube Feeding 60 ml 330 ml Output Urine Total 1700 ml # Voids 2 # Bowel Movements 2 Cardiovascular: RSR Respiratory: decreased breath sounds Abdomen: soft, non-tender, present bowel sounds Extremities: no tenderness, no cyanosis Laboratory Tests Test 09/15/20 04:40 09/15/20 11:39 Sodium Level 142 MMOL/L (136-145) Potassium Level 4.3 MMOL/L (3.5-5.1) Chloride Level 111 MMOL/L (98-107) H Carbon Dioxide Level 23 MMOL/L (21-32) Anion Gap 8 mmol/L (5-15) Blood Urea Nitrogen 28 mg/dL (7-18) H Creatinine 1.2 MG/DL (0.55-1.30) Estimat Glomerular Filtration Rate > 60 mL/min (>60) Glucose Level 97 MG/DL (74-106) Calcium Level 8.1 MG/DL (8.5-10.1) L Arterial Blood pH 7.455 (7.350-7.450) Arterial Blood Partial Pressure CO2 33.6 mmHg (35.0-45.0) L Arterial Blood Partial Pressure O2 60.2 mmHg (75.0-100.0) L Arterial Blood HCO3 23.1 mmol/L (22.0-26.0) Arterial Blood Oxygen Saturation 92.0 % (95-100) L Arterial Blood Base Excess -0.3 (-2-2) Freddy Test Positive Plan Problems: (1) Fever (2) Decubitus skin ulcer Assessment & Plan: Patient identified on admission to have multiple scabs on the left arm. mild open scabs with eschar. no drainage. no significant cellulitis. bruising no bilateral extremities noted. no signs of abuse. likely from agitation Sacral coccygeal noted to have a DTI 4.3X2.5CM. which is dark purple . RECOMMEND-CLEAN WITH SALINE, PAT DRY AND APPLY CALAZINE. COVER WITH OPTIFOAM DRESSING. REPLACE EVERY 3 DAYS OR NEEDED LEFT ISCHIUM- STAGE I PRESSURE ULCER MEASURES 4.5X1.7CM. NON-BLANCHABLE ERYTHEMA. RECOMMEND- APPLY CALAZINE AND COVER WITH OPTIFOAM DRESSING. REPLACE EVERY 7 DAYS. Turn q2h off load pressure with pillow off load heels nutritional optimization MEAT PUMPER eval will follow with recryan thank you (3) Malnutrition Assessment & Plan: Mr. Roman is a 70 year old male B[place] [facility] [place] around 14:00 due to fever. He was found to be hypotensive 91/55 (67), Temp: 100.0, leukocytosis 20.8k and subsequently transferred to ICU for septic shock. The blood culture is reportedly positive for gram positive cocci. NG tube was placed, KUB confirmed the placement to day. Pt is clinically stable with leukocytosis 20.1, improved BUN and creatine, stable hemodynamic without vasopressor. Findings: Mr. Roman is disoriented. He does ot follow commands at this time. Oral cavity is noted to be dried blood concretion likely from NG trauma. No active bleeding site is seen. Due to his level f alertness, already NG tube is in placed, PO trial was not done at this time. Transferred out ICU last night. He is non on tele. Issues: multiple wounds, s.p balaji/nasal/pharyngeal bleeding with blood culture Gram positive cocci leukocytosis trending down from 20k-20k-16k BUN/Creatine trending down from 93/1.9-79/1.3-54/1.1 Temp: 98.1~98.7, Pulse: 62~72, BP: 105/67~120/48, SPO2 98~100% on 2 liter S: Oral cavity is better condition comparison to yesterday. The mucosa is severely erythema without active bleeding. Limited level of alertness for direct therapy. NG in placed O: 1. Laryngeal palpation to trigger spontaneous cough and swallow: Pt triggered cough with laryngeal palpation. Approximately 5~10 seconds after coughing, he triggered swallow. based on this observation, he presents with copious secretion in pharynx and larynx. He continued to have poor secretion management at laryngeal level at this time. NO PO trial was given due to poor secretion at the level of air way with low level of alertness. A: 1. Probable aspiration of his own secretion with poor ability to cough and swallow 2. Dysphagia P: 1. NPO for now 2. Observe his secretion, and level of alertness for PO readiness. (4) Severe sepsis (5) Open upper arm wound (6) Hematuria Assessment & Plan: as per urology Aubrey Gutierrez Sep 15, 2020 14:33
--- NOTE | 2020-09-15 15:32 | NUR ---
*-*DISCHARGE PLANNING*-* [facility]: [phone] ROOM# 46.C S/W NURSE [place], STATED DISCHARGE IS HELD, DUE TO PATIENT IN UNSTABLE CONDITION.
[2020-09-15 16:00] VITALS: BP 107/64
[2020-09-15] MEDS: Albuterol/Ipratropium 3ml neb HHN PRN (16:28)
--- NOTE | 2020-09-15 17:08 | Infectious Diseases Prog Note ---
Assessment/Plan Assessment/Plan A 1. Pneumonia COVID19 test is negative. 2. Dementia. 3. Leukocytosis resolved 4. Urinary tract infection 5. 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 BPH P 1. continue Zosyn 2 days 2. Frequent suctioning Subjective ROS Limited/Unobtainable: Yes Constitutional: Denies: fever Respiratory: Reports: other - lots of respiratory secretions Neurologic: Reports: confusion, other - on restraint Allergies: Coded Allergies: No Known Allergies (Unverified , 09/10/20) Objective Last 24 Hour Vital Signs Date Time Temp Pulse Resp B/P (MAP) Pulse Ox O2 Delivery O2 Flow Rate FiO2 09/15/20 16:32 78 20 89 Venturi Mask 10.0 50 09/15/20 16:32 74 22 92 Venturi Mask 10.0 50 79 20 89 09/15/20 16:00 93 09/15/20 16:00 98.8 76 26 107/64 (78) 93 09/15/20 12:00 97.9 89 25 117/64 (81) 95 09/15/20 12:00 82 09/15/20 09:00 Simple Mask 10.0 09/15/20 08:00 98.3 73 22 113/72 (86) 93 09/15/20 08:00 75 09/15/20 04:00 73 09/15/20 04:00 98.3 74 20 126/72 (90) 97 09/15/20 00:00 98.1 70 21 130/75 (93) 95 09/14/20 21:00 Nasal Cannula 2.0 09/14/20 20:17 95 Nasal Cannula 2.0 28 09/14/20 20:00 97.9 67 19 117/71 (86) 95 09/14/20 20:00 66 Height (Feet): 5 Height (Inches): 7.00 Weight (Pounds): 121 HEENT: mucous membranes moist Respiratory/Chest: rhonchi - bilaterally, other - oxygen by mask Cardiovascular: normal rate Abdomen: soft, non tender, other - NGtube Genitourinary: other - Rae catheter Extremities: no edema Neurologic/Psychiatric: disoriented Laboratory Tests Test 09/15/20 04:40 09/15/20 11:39 Sodium Level 142 MMOL/L (136-145) Potassium Level 4.3 MMOL/L (3.5-5.1) Chloride Level 111 MMOL/L (98-107) H Carbon Dioxide Level 23 MMOL/L (21-32) Anion Gap 8 mmol/L (5-15) Blood Urea Nitrogen 28 mg/dL (7-18) H Creatinine 1.2 MG/DL (0.55-1.30) Estimat Glomerular Filtration Rate > 60 mL/min (>60) Glucose Level 97 MG/DL (74-106) Calcium Level 8.1 MG/DL (8.5-10.1) L Arterial Blood pH 7.455 (7.350-7.450) Arterial Blood Partial Pressure CO2 33.6 mmHg (35.0-45.0) L Arterial Blood Partial Pressure O2 60.2 mmHg (75.0-100.0) L Arterial Blood HCO3 23.1 mmol/L (22.0-26.0) Arterial Blood Oxygen Saturation 92.0 % (95-100) L Arterial Blood Base Excess -0.3 (-2-2) Freddy Test Positive Current Medications Medications (Trade) Dose Ordered Sig/Aleksander Route PRN Reason Start Time Stop Time Status Last Admin Dose Admin Acetaminophen (Tylenol) 650 mg Q4H PRN NG Temp >100.5 09/10/20 23:15 10/10/20 23:14 Al Hydroxide/Mg Hydroxide (Mylanta) 30 ml Q4H PRN NG Constipation 09/11/20 00:15 10/10/20 23:14 Albuterol/ Ipratropium (Albuterol/ Ipratropium) 3 ml Q4H PRN HHN Shortness of Breath 09/15/20 16:15 09/20/20 16:14 09/15/20 16:28 Dextrose/ Electrolytes 1,000 ml @ 40 mls/hr Q24H IV 09/11/20 17:00 10/11/20 16:59 09/15/20 10:53 Divalproex Sodium (Depakote Sprinkles) 1,000 mg BEDTIME NG 09/11/20 03:00 10/11/20 02:59 09/14/20 21:23 Finasteride (Proscar) 5 mg DAILY ORAL 09/13/20 09:00 12/12/20 08:59 09/14/20 09:38 Furosemide (Lasix) 20 mg ONCE IV 09/15/20 16:15 09/15/20 18:15 09/15/20 16:38 Ondansetron HCl (Zofran) 4 mg Q6H PRN IVP Nausea & Vomiting 09/10/20 23:15 10/10/20 23:14 Pantoprazole (Protonix) 40 mg DAILY IVP 09/11/20 09:00 10/11/20 08:59 09/15/20 08:06 Piperacillin Sod/ Tazobactam Sod 3.375 gm/Sodium Chloride 110 ml @ 27.5 mls/hr Q8H IVPB 09/11/20 02:00 09/18/20 01:59 09/15/20 09:38 Tamsulosin HCl (Flomax) 0.4 mg BEDTIME ORAL 09/12/20 21:00 10/12/20 20:59 09/14/20 21:23 Bradley Gil MD Sep 15, 2020 17:08
--- NOTE | 2020-09-15 17:30 | NUR ---
NURSE NOTES: Dr. Rios informed of BBB from this morning
--- NOTE | 2020-09-15 18:21 | NUR ---
NURSE HAND-OFF REPORT: Important Events on Shift:[pt was supposed to be d/cris today however breathing not stable, began to desat, deep suction done several times with bright red excretions. Now on venturi mask at 10 L 50 % fiO2. ] Patient Status: [In bed, eyes open but not tracking] Diet: [Per Dr. Elliott, NG tube kept off] Pending Orders: [] Pending Results/Labs:[] Pending MD notification:[] Latest Vital Signs: Temperature 98.8 , Pulse 78 , B/P 107 /64 , Respiratory Rate 20 , O2 SAT 89 , Simple Mask, O2 Flow Rate 10.0 . Vital Sign Comment: [] EKG Rhythm: Sinus Rhythm Rhythm change?: N MD Notified?: Bienvenido Rios MD Response: Latest Schultz Fall Score: 50 Fall Risk: High Risk Safety Measures: Call light Within Reach, Bed Alarm Zone 1, Side Rails Side Rails x3, Bed position Low and Locked. Fall Precautions: Yellow Socks Door Sign Patient Fall Education Report given to [Pending Rn assignment ]. Addendum: 09/15/20 at 1930 by Marjan Farnsworth RN Report given to ARTEMIO Martinez
--- NOTE | 2020-09-15 19:31 | NUR ---
NURSE NOTES: The patient is alert to tactile stimuli but was verbally unresponsive..The patient is on a venturi mask well tolerated. He does not seem to exhibits any sign or symptoms of pain. The patient has a bilateral soft wrist restrain due to agitations and irritability. He has poor skin integrity with a capillary refills of >4 secs. The patient has an NGT in place. The left arm has an open wounds and a sacral DTI was also noted. Cardiac vance the patient is Sinus Rhythms. He has a RFA 20g IV line which is patent and asymptomatic. The bed in low level, call light within easy reach and bedside rails up x3, bed alarm is on. will continue to monitor as indicated
--- NOTE | 2020-09-15 19:57 | Cardiology Progress Note ---
Subjective DATE OF SERVICE: Sep 15, 2020 Increasingly congested today, with SOB. Feedings held, and furosemide given x 1. Monitor: sinus bradycardia during sleep - asymptomatic. Objective Last 24 Hour Vital Signs Date Time Temp Pulse Resp B/P (MAP) Pulse Ox O2 Delivery O2 Flow Rate FiO2 09/15/20 19:09 92 Venturi Mask 10.0 50 09/15/20 16:32 78 20 89 Venturi Mask 10.0 50 09/15/20 16:32 74 22 92 Venturi Mask 10.0 50 79 20 89 09/15/20 16:00 93 09/15/20 16:00 98.8 76 26 107/64 (78) 93 09/15/20 12:00 97.9 89 25 117/64 (81) 95 09/15/20 12:00 82 09/15/20 09:00 Simple Mask 10.0 09/15/20 08:00 98.3 73 22 113/72 (86) 93 09/15/20 08:00 75 09/15/20 04:00 73 09/15/20 04:00 98.3 74 20 126/72 (90) 97 09/15/20 00:00 98.1 70 21 130/75 (93) 95 09/14/20 21:00 Nasal Cannula 2.0 09/14/20 20:17 95 Nasal Cannula 2.0 28 09/14/20 20:00 97.9 67 19 117/71 (86) 95 09/14/20 20:00 66 ROS: no change from my evaluation of 09/10/20. HEENT: normal ENT inspection RHYTHM: NSR, ST LUNGS: rales right CARDIAC: normal rate, regular rhythm, normal S1 and S2 ABDOMEN: normal bowel sounds, soft, other - sacral decub Laboratory Tests Test 09/15/20 04:40 09/15/20 11:39 Sodium Level 142 MMOL/L (136-145) Potassium Level 4.3 MMOL/L (3.5-5.1) Chloride Level 111 MMOL/L (98-107) H Carbon Dioxide Level 23 MMOL/L (21-32) Anion Gap 8 mmol/L (5-15) Blood Urea Nitrogen 28 mg/dL (7-18) H Creatinine 1.2 MG/DL (0.55-1.30) Estimat Glomerular Filtration Rate > 60 mL/min (>60) Glucose Level 97 MG/DL (74-106) Calcium Level 8.1 MG/DL (8.5-10.1) L Arterial Blood pH 7.455 (7.350-7.450) Arterial Blood Partial Pressure CO2 33.6 mmHg (35.0-45.0) L Arterial Blood Partial Pressure O2 60.2 mmHg (75.0-100.0) L Arterial Blood HCO3 23.1 mmol/L (22.0-26.0) Arterial Blood Oxygen Saturation 92.0 % (95-100) L Arterial Blood Base Excess -0.3 (-2-2) Freddy Test Positive Assessment/Plan Assessment/Plan Sepsis Leukocytosis Recovering shock Hypovolemia Dehydration/hypernatremia corrected. Likely congestion due to aspiration Acute myocardial ischemia Acute renal failure HC assoc PNA UTI CVA/dementia Sinus bradycardia Remains CRITICAL & GUARDED IVF until feeds restarted. Antimicrobials Replace lytes as needed DVT prophyl Cardiac monitoring Hypotonic IVF hydration No indication for pacemaker at present. Madi Rios MD Sep 15, 2020 19:57
[2020-09-15 20:00] VITALS: BP 114/64
[2020-09-15] MEDS: Depakote 125mg Sprinkles NG SCH (20:36)
[2020-09-15] MEDS: Tamsulosin 0.4mg cap ORAL SCH (20:36)
--- NOTE | 2020-09-15 21:00 | NUR ---
NURSE NOTES: The patient was noted with swelling in the BILATERAL arms and lower extremity. THE ARMS SUPPORTED WITH A PILLOW AND THE lEGS ALSO RAISED AND SUPPORTED WITH A PILLOW.
[2020-09-15] MEDS: Potassium Chloride 10 MEQ in D5 1/2NS 1,000 ML IV SCH (21:33)
--- NOTE | 2020-09-15 22:00 | NUR ---
NURSE NOTES: Resumed feeding of Jevity 1.2 continuos feeding via NGT @ 50 ml/hr, flush tube with 100ml of water Q4 hrs as indicated. .
[2020-09-15] MEDS ORDERED: NS 275ml ONE (22:23)
[2020-09-16] VITALS: BP 117/60
[2020-09-16] MEDS: Piperacillin/Tazobactam 3.375 GM in NS 110 ML IVPB SCH ×3 (02:44→21:15)
[2020-09-16 04:00] VITALS: BP 114/65
--- NOTE | 2020-09-16 06:41 | NUR ---
NURSE HAND-OFF REPORT: Important Events on Shift:Resumed feeding of Jevity 1.2 continuos feeding via NGT @ 50 ml/hr, flush tube with 100ml of water Q4 hrs as indicated. Patient Status: Diet: Pending Orders: Pending Results/Labs: Pending MD notification: Latest Vital Signs: Temperature 98.0 , Pulse 77 , B/P 114 /65 , Respiratory Rate 20 , O2 SAT 94 , Simple Mask, O2 Flow Rate 10.0 . Vital Sign Comment: EKG Rhythm: Sinus Rhythm Rhythm change?: N Notified?: Y -Dr. Gabriel BENITEZ Response: Latest Schultz Fall Score: 50 Fall Risk: High Risk Safety Measures: Call light Within Reach, Bed Alarm Zone 1, Side Rails Side Rails x3, Bed position Low and Locked. Fall Precautions: Yellow Socks Door Sign Patient Fall Education Report given to .
--- NOTE | 2020-09-16 07:10 | NUR ---
NURSE NOTES: Pt received from Walter RN. Pt in bed sleeping, Jevity 1.2 running at 50cc/hr, will check residual shortly. D5 1/2ns 10K running in left forearm at 50cc. bed low and locked bed light in reach, no distress noted. non rebreather mask in place at 10 liters 50% Fio2
[2020-09-16 08:00] VITALS: BP 117/63
[2020-09-16 08:09] LABS: HEMATOCRIT 31.2 % (42.0-52.0); HEMOGLOBIN 11.1 G/DL (14.2-18.0); MEAN CORPUSCULAR VOLUME 80 FL (80-99); PLATELET COUNT 203 K/UL (150-450); RED BLOOD COUNT 3.88 M/UL (4.70-6.10); RED CELL DISTRIBUTION WIDTH 14.8 % (11.6-14.8)
[2020-09-16 08:13] LABS: WHITE BLOOD COUNT 23.9 K/UL (4.8-10.8)
--- NOTE | 2020-09-16 08:20 | NUR ---
NURSE NOTES: Call from lab, WBC critical. Called Dr Collins emergency number. Left VM, awaiting orders.
[2020-09-16 08:23] LABS: ALANINE AMINOTRANSFERASE 33 U/L (12-78); ALBUMIN 1.9 G/DL (3.4-5.0); ALBUMIN/GLOBULIN RATIO 0.4 (1.0-2.7); ALKALINE PHOSPHATASE 55 U/L (46-116); ANION GAP 9 mmol/L (5-15); ASPARTATE AMINO TRANSFERASE 29 U/L (15-37); BILIRUBIN,TOTAL 0.6 MG/DL (0.2-1.0); BLOOD UREA NITROGEN 16 mg/dL (7-18); CALCIUM 7.8 MG/DL (8.5-10.1); CARBON DIOXIDE 24 MMOL/L (21-32); CHLORIDE 107 MMOL/L (98-107); CREATININE 1.1 MG/DL (0.55-1.30); POTASSIUM 3.8 MMOL/L (3.5-5.1); SODIUM 140 MMOL/L (136-145)
[2020-09-16] MEDS: Pantoprazole Inj IVP SCH (08:23)
--- NOTE | 2020-09-16 09:01 | Urology Progress Note ---
Assessment/Plan Assessment/Plan: 1. Gross hematuria. 2. Pyuria and possible UTI. 3. Proteinuria. 4. BPH. 5. Urinary retention. 6. Probable neurogenic bladder. 7. Possible sepsis. monitor clinically maintain andrade hand irrigated and do PRN abx as ordered flomax and proscar added cysto electively voiding trial at some point? Subjective Allergies: Coded Allergies: No Known Allergies (Unverified , 09/10/20) Subjective non-verbal NGT in place Objective Last 24 Hour Vital Signs Date Time Temp Pulse Resp B/P (MAP) Pulse Ox O2 Delivery O2 Flow Rate FiO2 09/16/20 08:46 98 Venturi Mask 10.0 50 09/16/20 08:00 98.1 92 28 117/63 (81) 98 09/16/20 04:00 98.0 77 20 114/65 (81) 94 09/16/20 04:00 91 09/16/20 00:00 98.6 76 25 117/60 (79) 94 09/16/20 00:00 96 09/15/20 21:00 Simple Mask 10.0 09/15/20 20:00 76 09/15/20 20:00 98.1 76 24 114/64 (81) 94 09/15/20 19:09 92 Venturi Mask 10.0 50 09/15/20 16:32 78 20 89 Venturi Mask 10.0 50 09/15/20 16:32 74 22 92 Venturi Mask 10.0 50 79 20 89 09/15/20 16:00 93 09/15/20 16:00 98.8 76 26 107/64 (78) 93 09/15/20 12:00 97.9 89 25 117/64 (81) 95 09/15/20 12:00 82 Intake and Output 09/15/20 09/16/20 19:00 07:00 Intake Total 650 ml Output Total 700 ml Balance -700 ml 650 ml Free Water 200 ml IV Total 150 ml Tube Feeding 300 ml Output Urine Total 700 ml Microbiology Date/Time Source Procedure Growth Status 09/10/20 20:05 Urine,Clean Catch Urine Culture - Final NO GROWTH AFTER 48 HOURS Complete 09/10/20 17:15 Rectum VRE Culture - Final Enterococcus Faecalis - Vre Complete 09/10/20 17:15 Nasal Nares MRSA Culture - Final Staphylococcus Aureus - Mrsa Complete 09/10/20 15:51 Blood Blood Culture - Final Staphylococcus Epidermidis Complete Current Medications Medications (Trade) Dose Ordered Sig/Aleksander Route PRN Reason Start Time Stop Time Status Last Admin Dose Admin Acetaminophen (Tylenol) 650 mg Q4H PRN NG Temp >100.5 09/10/20 23:15 10/10/20 23:14 Al Hydroxide/Mg Hydroxide (Mylanta) 30 ml Q4H PRN NG Constipation 09/11/20 00:15 10/10/20 23:14 Albuterol/ Ipratropium (Albuterol/ Ipratropium) 3 ml Q4H PRN HHN Shortness of Breath 09/15/20 16:15 09/20/20 16:14 09/15/20 16:28 Divalproex Sodium (Depakote Sprinkles) 1,000 mg BEDTIME NG 09/11/20 03:00 10/11/20 02:59 09/15/20 20:36 Finasteride (Proscar) 5 mg DAILY ORAL 09/13/20 09:00 12/12/20 08:59 09/16/20 08:24 Ondansetron HCl (Zofran) 4 mg Q6H PRN IVP Nausea & Vomiting 09/10/20 23:15 10/10/20 23:14 Pantoprazole (Protonix) 40 mg DAILY IVP 09/11/20 09:00 10/11/20 08:59 09/16/20 08:23 Piperacillin Sod/ Tazobactam Sod 3.375 gm/Sodium Chloride 110 ml @ 27.5 mls/hr Q8H IVPB 09/11/20 02:00 09/18/20 01:59 09/16/20 02:44 Potassium Chloride 10 meq/ Dextrose/Sodium Chloride 1,005 ml @ 50 mls/hr Q20H6M IV 09/15/20 21:00 10/15/20 20:59 09/15/20 21:33 Tamsulosin HCl (Flomax) 0.4 mg BEDTIME ORAL 09/12/20 21:00 10/12/20 20:59 09/15/20 20:36 Vancomycin HCl (Vanco pharmacy to dose) 1 ea DAILY PRN MISC Per rx protocol 09/16/20 08:45 10/16/20 08:44 UNV Laboratory Tests 09/15/20 11:39: Arterial Blood pH 7.455H, Arterial Blood Partial Pressure CO2 33.6L, Arterial Blood Partial Pressure O2 60.2L, Arterial Blood HCO3 23.1, Arterial Blood Oxygen Saturation 92.0L, Arterial Blood Base Excess -0.3, Freddy Test Positive 09/16/20 06:10: White Blood Count 23.9*H, Red Blood Count 3.88L, Hemoglobin 11.1L, Hematocrit 31.2L, Mean Corpuscular Volume 80, Mean Corpuscular Hemoglobin 28.7, Mean Corpuscular Hemoglobin Concent 35.6, Red Cell Distribution Width 14.8, Platelet Count 203, Mean Platelet Volume 9.7, Neutrophils (%) (Auto) , Lymphocytes (%) (Auto) , Monocytes (%) (Auto) , Eosinophils (%) (Auto) , Basophils (%) (Auto) , Neutrophils % (Manual) [Pending], Lymphocytes % (Manual) [Pending], Platelet Estimate [Pending], Platelet Morphology [Pending], Sodium Level 140, Potassium Level 3.8, Chloride Level 107, Carbon Dioxide Level 24, Anion Gap 9, Blood Urea Nitrogen 16, Creatinine 1.1, Estimat Glomerular Filtration Rate > 60, Glucose Level 114H, Calcium Level 7.8L, Total Bilirubin 0.6, Aspartate Amino Transf (AST/SGOT) 29, Alanine Aminotransferase (ALT/SGPT) 33, Alkaline Phosphatase 55, Total Protein 6.2L, Albumin 1.9L, Globulin 4.3, Albumin/Globulin Ratio 0.4L Height (Feet): 5 Height (Inches): 7.00 Weight (Pounds): 121 Objective exam stable urine clearing Levi Brunson MD Sep 16, 2020 09:01
--- NOTE | 2020-09-16 09:49 | NUR ---
RADIOLOGY NOTE: PORTABLE CHEST AND ABDOMEN X-RAY COMPLETED AT 0841 HRS.
--- NOTE | 2020-09-16 10:06 | Diagnostic Imaging Report ---
EXAM: XR Abdomen, 1 View CLINICAL HISTORY: F/U TECHNIQUE: Frontal supine view of the abdomen/pelvis. COMPARISON: September 11, 2020. FINDINGS: The distal tip of the enteric tube and a first side-port are within the stomach. Gaseous distention of bowel loops, similar to prior exam. Suboptimal evaluation for free air on this supine radiograph. Likely phleboliths in the right hemipelvis. Degenerative changes in lumbar spine. IMPRESSION: Distal tip of enteric tube within stomach. Gaseous distention of bowel loops, similar to prior exam. If there is increasing abdominal pain and distention, CT may further evaluate.
--- NOTE | 2020-09-16 10:08 | Diagnostic Imaging Report ---
EXAM: XR Chest, 1 View CLINICAL HISTORY: F/U TECHNIQUE: Frontal view of the chest. COMPARISON: September 15, 2020. FINDINGS: Interval worsening of left lower lobe infiltrate. Small left pleural effusion, slightly increased. Right lung is clear. Stable cardiomediastinal silhouette. No evidence of javi edema or failure. IMPRESSION: Interval worsening of left lower lobe infiltrate. Small left pleural effusion, slightly increased.
[2020-09-16] MEDS ORDERED: Vancomycin 1gm/D5W 275ml IVPB ONE ×2 (11:00)
[2020-09-16 12:00] VITALS: BP 101/56
[2020-09-16] MEDS: Albuterol/Ipratropium 3ml neb HHN PRN (13:16)
[2020-09-16] MEDS ORDERED: Tubing IV Secondary IV ONE (13:59)
--- NOTE | 2020-09-16 14:35 | Surgery Progress Note ---
Surgery Progress Note Subjective Additional Comments on facemask cxr noted leukocytosis awake, responsive Objective Last 24 Hour Vital Signs Date Time Temp Pulse Resp B/P (MAP) Pulse Ox O2 Delivery O2 Flow Rate FiO2 09/16/20 13:16 92 22 92 Non-Rebreather 15.0 100 89 20 93 09/16/20 12:00 98.2 91 25 101/56 (71) 95 09/16/20 12:00 84 09/16/20 09:00 Non-Rebreather 15.0 09/16/20 08:46 98 Venturi Mask 10.0 50 09/16/20 08:00 98.1 92 28 117/63 (81) 98 09/16/20 08:00 81 09/16/20 04:00 98.0 77 20 114/65 (81) 94 09/16/20 04:00 91 09/16/20 00:00 98.6 76 25 117/60 (79) 94 09/16/20 00:00 96 09/15/20 21:00 Simple Mask 10.0 09/15/20 20:00 76 09/15/20 20:00 98.1 76 24 114/64 (81) 94 09/15/20 19:09 92 Venturi Mask 10.0 50 09/15/20 16:32 78 20 89 Venturi Mask 10.0 50 09/15/20 16:32 74 22 92 Venturi Mask 10.0 50 79 20 89 09/15/20 16:00 93 09/15/20 16:00 98.8 76 26 107/64 (78) 93 I&O Intake and Output 09/15/20 09/16/20 19:00 07:00 Intake Total 650 ml Output Total 700 ml Balance -700 ml 650 ml Free Water 200 ml IV Total 150 ml Tube Feeding 300 ml Output Urine Total 700 ml Cardiovascular: RSR Respiratory: decreased breath sounds Abdomen: soft, non-tender, present bowel sounds Extremities: no tenderness, no cyanosis Laboratory Tests Test 09/16/20 06:10 White Blood Count 23.9 K/UL (4.8-10.8) *H Red Blood Count 3.88 M/UL (4.70-6.10) L Hemoglobin 11.1 G/DL (14.2-18.0) L Hematocrit 31.2 % (42.0-52.0) L Mean Corpuscular Volume 80 FL (80-99) Mean Corpuscular Hemoglobin 28.7 PG (27.0-31.0) Mean Corpuscular Hemoglobin Concent 35.6 G/DL (32.0-36.0) Red Cell Distribution Width 14.8 % (11.6-14.8) Platelet Count 203 K/UL (150-450) Mean Platelet Volume 9.7 FL (6.5-10.1) Neutrophils (%) (Auto) % (45.0-75.0) Lymphocytes (%) (Auto) % (20.0-45.0) Monocytes (%) (Auto) % (1.0-10.0) Eosinophils (%) (Auto) % (0.0-3.0) Basophils (%) (Auto) % (0.0-2.0) Differential Total Cells Counted 100 Neutrophils % (Manual) 81 % (45-75) H Lymphocytes % (Manual) 5 % (20-45) L Monocytes % (Manual) 4 % (1-10) Eosinophils % (Manual) 0 % (0-3) Basophils % (Manual) 0 % (0-2) Band Neutrophils 10 % (0-8) H Platelet Estimate Adequate Platelet Morphology Normal Hypochromasia 1+ Anisocytosis 1+ Microcytosis 1+ Sodium Level 140 MMOL/L (136-145) Potassium Level 3.8 MMOL/L (3.5-5.1) Chloride Level 107 MMOL/L (98-107) Carbon Dioxide Level 24 MMOL/L (21-32) Anion Gap 9 mmol/L (5-15) Blood Urea Nitrogen 16 mg/dL (7-18) Creatinine 1.1 MG/DL (0.55-1.30) Estimat Glomerular Filtration Rate > 60 mL/min (>60) Glucose Level 114 MG/DL (74-106) H Calcium Level 7.8 MG/DL (8.5-10.1) L Total Bilirubin 0.6 MG/DL (0.2-1.0) Aspartate Amino Transf (AST/SGOT) 29 U/L (15-37) Alanine Aminotransferase (ALT/SGPT) 33 U/L (12-78) Alkaline Phosphatase 55 U/L (46-116) Total Protein 6.2 G/DL (6.4-8.2) L Albumin 1.9 G/DL (3.4-5.0) L Globulin 4.3 g/dL Albumin/Globulin Ratio 0.4 (1.0-2.7) L Plan Problems: (1) Fever Assessment & Plan: maybe developing pneumonia cont abx pulm input thank you (2) Decubitus skin ulcer Assessment & Plan: Patient identified on admission to have multiple scabs on the left arm. mild open scabs with eschar. no drainage. no significant cellulitis. bruising no bilateral extremities noted. no signs of abuse. likely from agitation Sacral coccygeal noted to have a DTI 4.3X2.5CM. which is dark purple . RECOMMEND-CLEAN WITH SALINE, PAT DRY AND APPLY CALAZINE. COVER WITH OPTIFOAM DRESSING. REPLACE EVERY 3 DAYS OR NEEDED LEFT ISCHIUM- STAGE I PRESSURE ULCER MEASURES 4.5X1.7CM. NON-BLANCHABLE ERYTHEMA. RECOMMEND- APPLY CALAZINE AND COVER WITH OPTIFOAM DRESSING. REPLACE EVERY 7 DAYS. 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 Roman is a 70 year old male BIBA to ED of [facility] on 09/10/2020 around 14:00 due to fever. He was found to be hypotensive 91/55 (67), Temp: 100.0, leukocytosis 20.8k and subsequently transferred to ICU for septic shock. The blood culture is reportedly positive for gram positive cocci. NG tube was placed, KUB confirmed the placement to day. Pt is clinically stable with leukocytosis 20.1, improved BUN and creatine, stable hemodynamic without vasopressor. Findings: Mr. Roman is disoriented. He does ot follow commands at this time. Oral cavity is noted to be dried blood concretion likely from NG trauma. No active bleeding site is seen. Due to his level f alertness, already NG tube is in placed, PO trial was not done at this time. Transferred out ICU last night. He is non on tele. Issues: multiple wounds, s.p balaji/nasal/pharyngeal bleeding with blood culture Gram positive cocci leukocytosis trending down from 20k-20k-16k BUN/Creatine trending down from 93/1.9-79/1.3-54/1.1 Temp: 98.1~98.7, Pulse: 62~72, BP: 105/67~120/48, SPO2 98~100% on 2 liter S: Oral cavity is better condition comparison to yesterday. The mucosa is severely erythema without active bleeding. Limited level of alertness for direct therapy. NG in placed O: 1. Laryngeal palpation to trigger spontaneous cough and swallow: Pt triggered cough with laryngeal palpation. Approximately 5~10 seconds after coughing, he triggered swallow. based on this observation, he presents with copious secretion in pharynx and larynx. He continued to have poor secretion management at laryngeal level at this time. NO PO trial was given due to poor secretion at the level of air way with low level of alertness. A: 1. Probable aspiration of his own secretion with poor ability to cough and swallow 2. Dysphagia P: 1. NPO for now 2. Observe his secretion, and level of alertness for PO readiness. (4) Severe sepsis (5) Open upper arm wound (6) Hematuria Assessment & Plan: as per urology Aubrey Gutierrez Sep 16, 2020 14:35
--- NOTE | 2020-09-16 15:20 | Pulmonology Progress Note ---
Subjective ROS Limited/Unobtainable: Yes Constitutional: Denies: fever Allergies: Coded Allergies: No Known Allergies (Unverified , 09/10/20) Objective Last 24 Hour Vital Signs Date Time Temp Pulse Resp B/P (MAP) Pulse Ox O2 Delivery O2 Flow Rate FiO2 09/16/20 13:16 92 22 92 Non-Rebreather 15.0 100 89 20 93 09/16/20 12:00 98.2 91 25 101/56 (71) 95 09/16/20 12:00 84 09/16/20 09:00 Non-Rebreather 15.0 09/16/20 08:46 98 Venturi Mask 10.0 50 09/16/20 08:00 98.1 92 28 117/63 (81) 98 09/16/20 08:00 81 09/16/20 04:00 98.0 77 20 114/65 (81) 94 09/16/20 04:00 91 09/16/20 00:00 98.6 76 25 117/60 (79) 94 09/16/20 00:00 96 09/15/20 21:00 Simple Mask 10.0 09/15/20 20:00 76 09/15/20 20:00 98.1 76 24 114/64 (81) 94 09/15/20 19:09 92 Venturi Mask 10.0 50 09/15/20 16:32 78 20 89 Venturi Mask 10.0 50 09/15/20 16:32 74 22 92 Venturi Mask 10.0 50 79 20 89 09/15/20 16:00 93 09/15/20 16:00 98.8 76 26 107/64 (78) 93 Intake and Output 09/15/20 09/16/20 19:00 07:00 Intake Total 650 ml Output Total 700 ml Balance -700 ml 650 ml Free Water 200 ml IV Total 150 ml Tube Feeding 300 ml Output Urine Total 700 ml Laboratory Tests 09/16/20 06:10: White Blood Count 23.9*H, Red Blood Count 3.88L, Hemoglobin 11.1L, Hematocrit 31.2L, Mean Corpuscular Volume 80, Mean Corpuscular Hemoglobin 28.7, Mean Corpuscular Hemoglobin Concent 35.6, Red Cell Distribution Width 14.8, Platelet Count 203, Mean Platelet Volume 9.7, Neutrophils (%) (Auto) , Lymphocytes (%) (Auto) , Monocytes (%) (Auto) , Eosinophils (%) (Auto) , Basophils (%) (Auto) , Differential Total Cells Counted 100, Neutrophils % (Manual) 81H, Lymphocytes % (Manual) 5L, Monocytes % (Manual) 4, Eosinophils % (Manual) 0, Basophils % (Manual) 0, Band Neutrophils 10H, Platelet Estimate Adequate, Platelet Morphology Normal, Hypochromasia 1+, Anisocytosis 1+, Microcytosis 1+, Sodium Level 140, Potassium Level 3.8, Chloride Level 107, Carbon Dioxide Level 24, Anion Gap 9, Blood Urea Nitrogen 16, Creatinine 1.1, Estimat Glomerular Filtration Rate > 60, Glucose Level 114H, Calcium Level 7.8L, Total Bilirubin 0.6, Aspartate Amino Transf (AST/SGOT) 29, Alanine Aminotransferase (ALT/SGPT) 33, Alkaline Phosphatase 55, Total Protein 6.2L, Albumin 1.9L, Globulin 4.3, Albumin/Globulin Ratio 0.4L Current Medications Medications (Trade) Dose Ordered Sig/Aleksander Route PRN Reason Start Time Stop Time Status Last Admin Dose Admin Acetaminophen (Tylenol) 650 mg Q4H PRN NG Temp >100.5 09/10/20 23:15 10/10/20 23:14 Al Hydroxide/Mg Hydroxide (Mylanta) 30 ml Q4H PRN NG Constipation 09/11/20 00:15 10/10/20 23:14 Albuterol/ Ipratropium (Albuterol/ Ipratropium) 3 ml Q4H PRN HHN Shortness of Breath 09/15/20 16:15 09/20/20 16:14 09/16/20 13:16 Divalproex Sodium (Depakote Sprinkles) 1,000 mg BEDTIME NG 09/11/20 03:00 10/11/20 02:59 09/15/20 20:36 Finasteride (Proscar) 5 mg DAILY ORAL 09/13/20 09:00 12/12/20 08:59 09/16/20 08:24 Ondansetron HCl (Zofran) 4 mg Q6H PRN IVP Nausea & Vomiting 09/10/20 23:15 10/10/20 23:14 Pantoprazole (Protonix) 40 mg DAILY IVP 09/11/20 09:00 10/11/20 08:59 09/16/20 08:23 Piperacillin Sod/ Tazobactam Sod 3.375 gm/Sodium Chloride 110 ml @ 27.5 mls/hr Q8H IVPB 09/16/20 14:00 09/23/20 13:59 09/16/20 14:13 Potassium Chloride 10 meq/ Dextrose/Sodium Chloride 1,005 ml @ 50 mls/hr Q20H6M IV 09/15/20 21:00 10/15/20 20:59 09/15/20 21:33 Tamsulosin HCl (Flomax) 0.4 mg BEDTIME ORAL 09/12/20 21:00 10/12/20 20:59 09/15/20 20:36 Vancomycin HCl (Vanco pharmacy to dose) 1 ea DAILY PRN MISC Per rx protocol 09/16/20 08:45 10/16/20 08:44 Vancomycin HCl 750 mg/Sodium Chloride 275 ml @ 183.333 mls/hr Q12H IVPB 09/16/20 23:00 09/21/20 22:59 Assessment/Plan Assessment/Plan Pulmonary Progress Note Subjective Allergies: Coded Allergies: No Known Allergies (Unverified , 09/10/20) Subjective remains confused increased oxygen requirements Worsening infiltrates AB per ID TF to SNF held Objective Vital Signs noted Height (Feet): 5 Height (Inches): 7.00 Weight (Pounds): 121 Objective WDWN NAD reduced breath sounds bilaterally without rhonchi or wheeze [id number] without MRG NABS nontender no HSM no CCE nonfocal remains confused Assessment/Plan Assessment/Plan: IMPRESSION: 1. Acute renal failure. 2. Hypernatremia improving 3. Leukocytosis. 4. Pneumonia/ sepsis. 5. Hypotension. 6. Dementia. 7. Acute on chronic encephalopathy. 8. bcx staph Epi 9. MRSA colonized PLAN hydrate PRN ID noted; on zosyn another 2 days follow up cultures renal follow up DC planning SNF impression, plan, and exam edited and reviewed in detail care discussed with Madi Richard MD Sep 16, 2020 15:20
[2020-09-16 16:00] VITALS: BP 106/60
[2020-09-16] MEDS: Potassium Chloride 10 MEQ in D5 1/2NS 1,000 ML IV SCH (16:38)
--- NOTE | 2020-09-16 18:10 | Cardiology Progress Note ---
Subjective DATE OF SERVICE: Sep 16, 2020 Remains congested today, with SOB. Feedings held, and furosemide given yesterday; WBC up to 24K today. Monitor: sinus rhythm; no significant bradycardia. Objective Last 24 Hour Vital Signs Date Time Temp Pulse Resp B/P (MAP) Pulse Ox O2 Delivery O2 Flow Rate FiO2 09/16/20 16:00 83 09/16/20 16:00 98.4 91 25 106/60 (75) 93 09/16/20 13:16 92 22 92 Non-Rebreather 15.0 100 89 20 93 09/16/20 12:00 98.2 91 25 101/56 (71) 95 09/16/20 12:00 84 09/16/20 09:00 Non-Rebreather 15.0 09/16/20 08:46 98 Venturi Mask 10.0 50 09/16/20 08:00 98.1 92 28 117/63 (81) 98 09/16/20 08:00 81 09/16/20 04:00 98.0 77 20 114/65 (81) 94 09/16/20 04:00 91 09/16/20 00:00 98.6 76 25 117/60 (79) 94 09/16/20 00:00 96 09/15/20 21:00 Simple Mask 10.0 09/15/20 20:00 76 09/15/20 20:00 98.1 76 24 114/64 (81) 94 09/15/20 19:09 92 Venturi Mask 10.0 50 ROS: no change from my evaluation of 09/10/20. HEENT: normal ENT inspection RHYTHM: NSR, ST LUNGS: bilat. rhonchi and rales CARDIAC: normal rate, regular rhythm, normal S1 and S2 ABDOMEN: normal bowel sounds, soft, other - sacral decub EXTREMITIES: No edema Laboratory Tests Test 09/16/20 06:10 White Blood Count 23.9 K/UL (4.8-10.8) *H Red Blood Count 3.88 M/UL (4.70-6.10) L Hemoglobin 11.1 G/DL (14.2-18.0) L Hematocrit 31.2 % (42.0-52.0) L Mean Corpuscular Volume 80 FL (80-99) Mean Corpuscular Hemoglobin 28.7 PG (27.0-31.0) Mean Corpuscular Hemoglobin Concent 35.6 G/DL (32.0-36.0) Red Cell Distribution Width 14.8 % (11.6-14.8) Platelet Count 203 K/UL (150-450) Mean Platelet Volume 9.7 FL (6.5-10.1) Neutrophils (%) (Auto) % (45.0-75.0) Lymphocytes (%) (Auto) % (20.0-45.0) Monocytes (%) (Auto) % (1.0-10.0) Eosinophils (%) (Auto) % (0.0-3.0) Basophils (%) (Auto) % (0.0-2.0) Differential Total Cells Counted 100 Neutrophils % (Manual) 81 % (45-75) H Lymphocytes % (Manual) 5 % (20-45) L Monocytes % (Manual) 4 % (1-10) Eosinophils % (Manual) 0 % (0-3) Basophils % (Manual) 0 % (0-2) Band Neutrophils 10 % (0-8) H Platelet Estimate Adequate Platelet Morphology Normal Hypochromasia 1+ Anisocytosis 1+ Microcytosis 1+ Sodium Level 140 MMOL/L (136-145) Potassium Level 3.8 MMOL/L (3.5-5.1) Chloride Level 107 MMOL/L (98-107) Carbon Dioxide Level 24 MMOL/L (21-32) Anion Gap 9 mmol/L (5-15) Blood Urea Nitrogen 16 mg/dL (7-18) Creatinine 1.1 MG/DL (0.55-1.30) Estimat Glomerular Filtration Rate > 60 mL/min (>60) Glucose Level 114 MG/DL (74-106) H Calcium Level 7.8 MG/DL (8.5-10.1) L Total Bilirubin 0.6 MG/DL (0.2-1.0) Aspartate Amino Transf (AST/SGOT) 29 U/L (15-37) Alanine Aminotransferase (ALT/SGPT) 33 U/L (12-78) Alkaline Phosphatase 55 U/L (46-116) Total Protein 6.2 G/DL (6.4-8.2) L Albumin 1.9 G/DL (3.4-5.0) L Globulin 4.3 g/dL Albumin/Globulin Ratio 0.4 (1.0-2.7) L Assessment/Plan Assessment/Plan Sepsis Leukocytosis worse Recovering shock Hypovolemia Dehydration/hypernatremia corrected. Likely congestion due to aspiration Acute myocardial ischemia Acute renal failure HC assoc PNA UTI CVA/dementia Sinus bradycardia, asymptomatic Remains CRITICAL & GUARDED IVF until feeds restarted. Antimicrobials per ID; Vanco now added. Replace lytes as needed; follow up WBC. DVT prophyl Cardiac monitoring Hypotonic IVF hydration Madi Rios MD Sep 16, 2020 18:10
--- NOTE | 2020-09-16 18:46 | NUR ---
NURSE HAND-OFF REPORT: Important Events on Shift:[Pt WBC spiked this morning, now on vanco. Breathing also steadily declining, now requires non rebreather at 15 liters for 02 sat to be low to mid 90's. Tape on ng tube keeps becoming moist and needs to be reinforced, please monitor. Dr. sierra ordered ABG in am. ] Patient Status: [in bed stable, non rebreather in place] Diet: [jevity 1.2 at 50] Pending Orders: [] Pending Results/Labs:[] Pending MD notification:[] Latest Vital Signs: Temperature 98.4 , Pulse 83 , B/P 106 /60 , Respiratory Rate 25 , O2 SAT 93 , Non-Rebreather, O2 Flow Rate 15.0 . Vital Sign Comment: [] EKG Rhythm: Sinus Rhythm Rhythm change?: N MD Notified?: Y -Dr. Gabriel BENITEZ Response: Latest Schultz Fall Score: 50 Fall Risk: High Risk Safety Measures: Call light Within Reach, Bed Alarm Zone 1, Side Rails Side Rails x3, Bed position Low and Locked. Fall Precautions: Yellow Socks Door Sign Patient Fall Education Report given to [pending RN assignment]. Addendum: 09/16/20 at 1940 by Marjan Farnsworth RN Report given to Debo Main RN
--- NOTE | 2020-09-16 19:30 | NUR ---
NURSE NOTES: Report received from ARTEMIO Phillip. Patient is awake on bed, alert and oriented x 0. 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 On oxygen via non-rebreather @ 15 Lpm, sating 95 %. With NGT on right nares @ Jevity 1.2 @ 50 cc/hour, flushing of 100 cc every 4 hours. IV site is on left forearm g-22, running D5 1/2 NS + 20 meqs KCL @ 50 cc/hour that is patent and intact. On fall and aspiration precaution. With bilateral soft restraints, assessment will be done every 2 hours. Safety measures are in place, bed in lowest and locked position, side rails up x 2, call light button and bedside table within reach, instructed to call for any assistance needed. Will continue plan of care.
[2020-09-16 20:00] VITALS: BP 98/59
[2020-09-16] MEDS: Valproic Acid 250mg/5ml Liquid NG SCH (20:49)
[2020-09-16] MEDS: Tamsulosin 0.4mg cap ORAL SCH (20:49)
[2020-09-16] MEDS: Vancomycin 750mg/NS 275ml IVPB SCH ×2 (23:01)
[2020-09-17] VITALS (13 sets, daily range): BP systolic 93–133; BP diastolic 56–75
[2020-09-17] MEDS: Piperacillin/Tazobactam 3.375 GM in NS 110 ML IVPB SCH ×3 (05:21→22:22)
--- NOTE | 2020-09-17 07:01 | NUR ---
NURSE HAND-OFF REPORT: Important Events on Shift: Patient has been resting well the whole shift. No SOB nor desaturation noted the whole shift Patient Status: Patient is awake on bed, in stable condition. Plan of care endorsed. Diet: Jevity 1.2 @ 50 cc/hour, flushing of 100 cc every 4 hours. Pending Orders: none Pending Results/Labs: Result of AM labs Pending MD notification:none Latest Vital Signs: Temperature 98.6 , Pulse 86 , B/P 103 /56 , Respiratory Rate 26 , O2 SAT 98 , Non-Rebreather, O2 Flow Rate 15.0 . Vital Sign Comment: stable EKG Rhythm: Sinus Rhythm Rhythm change?: N MD Notified?: Bienvenido Rios MD Response: Latest Schultz Fall Score: 70 Fall Risk: High Risk Safety Measures: Call light Within Reach, Bed Alarm Zone 1, Side Rails Side Rails x3, Bed position Low and Locked. Fall Precautions: Yellow Socks Door Sign Patient Fall Education Report given to A.M Nurse.
--- NOTE | 2020-09-17 08:00 | NUR ---
NURSE NOTES: Received patient from ARTEMIO Mars. Patient is AO x0 but aroused when moved. He is on Non rebreather mask 15L and saturating at 96%. IV is intact and patent. Running D5 1/2 NS 10mEq @50 CC/hr. There are no signs of erythema, infiltration or bleeding. Patient has Rae Catheter draining and patent. NG Tube in place and patent and flushed. Running Jevety 1.2 @50cc, no residual noted. Bed is in the lowest position, call light is within reach, side rails up x3, soft wrist restraints on bilaterally. Will continue to monitor.
--- NOTE | 2020-09-17 08:01 | Urology Progress Note ---
Assessment/Plan Assessment/Plan: 1. Gross hematuria. 2. Pyuria and possible UTI. 3. Proteinuria. 4. BPH. 5. Urinary retention. 6. Probable neurogenic bladder. 7. Possible sepsis. monitor clinically maintain andrade hand irrigated and do PRN abx as ordered flomax and proscar added cysto electively voiding trial at some point? Subjective Allergies: Coded Allergies: No Known Allergies (Unverified , 09/10/20) Subjective non-verbal Objective Last 24 Hour Vital Signs Date Time Temp Pulse Resp B/P (MAP) Pulse Ox O2 Delivery O2 Flow Rate FiO2 09/17/20 04:00 98.6 78 26 103/56 (72) 98 09/17/20 04:00 86 09/17/20 00:00 98.5 79 32 98/60 (73) 98 09/16/20 21:00 Non-Rebreather 15.0 09/16/20 20:00 96 09/16/20 20:00 97.6 89 24 98/59 (72) 95 09/16/20 19:53 95 Non-Rebreather 15.0 100 09/16/20 16:00 83 09/16/20 16:00 98.4 91 25 106/60 (75) 93 09/16/20 13:16 92 22 92 Non-Rebreather 15.0 100 89 20 93 09/16/20 12:00 98.2 91 25 101/56 (71) 95 09/16/20 12:00 84 09/16/20 09:00 Non-Rebreather 15.0 09/16/20 08:46 98 Venturi Mask 10.0 50 Intake and Output 09/16/20 09/17/20 19:00 07:00 Output Total 300 ml Balance -300 ml Output Urine Total 300 ml # Bowel Movements 1 Microbiology Date/Time Source Procedure Growth Status 09/10/20 20:05 Urine,Clean Catch Urine Culture - Final NO GROWTH AFTER 48 HOURS Complete 09/10/20 17:15 Rectum VRE Culture - Final Enterococcus Faecalis - Vre Complete 09/10/20 17:15 Nasal Nares MRSA Culture - Final Staphylococcus Aureus - Mrsa Complete 09/10/20 15:51 Blood Blood Culture - Final Staphylococcus Epidermidis Complete Current Medications Medications (Trade) Dose Ordered Sig/Aleksander Route PRN Reason Start Time Stop Time Status Last Admin Dose Admin Acetaminophen (Tylenol) 650 mg Q4H PRN NG Temp >100.5 09/10/20 23:15 10/10/20 23:14 Al Hydroxide/Mg Hydroxide (Mylanta) 30 ml Q4H PRN NG Constipation 09/11/20 00:15 10/10/20 23:14 Albuterol/ Ipratropium (Albuterol/ Ipratropium) 3 ml Q4H PRN HHN Shortness of Breath 09/15/20 16:15 09/20/20 16:14 09/16/20 13:16 Finasteride (Proscar) 5 mg DAILY ORAL 09/13/20 09:00 12/12/20 08:59 09/16/20 08:24 Ondansetron HCl (Zofran) 4 mg Q6H PRN IVP Nausea & Vomiting 09/10/20 23:15 10/10/20 23:14 Pantoprazole (Protonix) 40 mg DAILY IVP 09/11/20 09:00 10/11/20 08:59 09/16/20 08:23 Piperacillin Sod/ Tazobactam Sod 3.375 gm/Sodium Chloride 110 ml @ 27.5 mls/hr Q8H IVPB 09/16/20 14:00 09/23/20 13:59 09/17/20 05:21 Potassium Chloride 10 meq/ Dextrose/Sodium Chloride 1,005 ml @ 50 mls/hr Q20H6M IV 09/15/20 21:00 10/15/20 20:59 09/16/20 16:38 Tamsulosin HCl (Flomax) 0.4 mg BEDTIME ORAL 09/12/20 21:00 10/12/20 20:59 09/16/20 20:49 Valproic Acid (Depakene) 1,000 mg BEDTIME NG 09/16/20 21:00 10/31/20 20:59 09/16/20 20:49 Vancomycin HCl (Vanco pharmacy to dose) 1 ea DAILY PRN MISC Per rx protocol 09/16/20 08:45 10/16/20 08:44 Vancomycin HCl 750 mg/Sodium Chloride 275 ml @ 183.333 mls/hr Q12H IVPB 09/16/20 23:00 09/21/20 22:59 09/16/20 23:01 Laboratory Tests 11/30/20 07:38: Arterial Blood pH 7.476H, Arterial Blood Partial Pressure CO2 30.6L, Arterial Blood Partial Pressure O2 65.8L, Arterial Blood HCO3 22.1, Arterial Blood Oxygen Saturation 93.0L, Arterial Blood Base Excess -0.8, Freddy Test Positive Height (Feet): 5 Height (Inches): 7.00 Weight (Pounds): 121 Objective exam stable urine clearing Levi Brunson MD Sep 17, 2020 08:01
--- NOTE | 2020-09-17 08:33 | General Progress Note ---
Subjective ROS Limited/Unobtainable: Yes Allergies: Coded Allergies: No Known Allergies (Unverified , 09/10/20) Subjective doing poorly on 100% lethargic and reduced LOC congested Objective Last 24 Hour Vital Signs Date Time Temp Pulse Resp B/P (MAP) Pulse Ox O2 Delivery O2 Flow Rate FiO2 09/17/20 04:00 98.6 78 26 103/56 (72) 98 09/17/20 04:00 86 09/17/20 00:00 98.5 79 32 98/60 (73) 98 09/16/20 21:00 Non-Rebreather 15.0 09/16/20 20:00 96 09/16/20 20:00 97.6 89 24 98/59 (72) 95 09/16/20 19:53 95 Non-Rebreather 15.0 100 09/16/20 16:00 83 09/16/20 16:00 98.4 91 25 106/60 (75) 93 09/16/20 13:16 92 22 92 Non-Rebreather 15.0 100 89 20 93 09/16/20 12:00 98.2 91 25 101/56 (71) 95 09/16/20 12:00 84 09/16/20 09:00 Non-Rebreather 15.0 09/16/20 08:46 98 Venturi Mask 10.0 50 Intake and Output 09/16/20 09/17/20 18:59 06:59 Output Total 300 ml Balance -300 ml Output Urine Total 300 ml # Bowel Movements 1 Laboratory Tests 09/17/20 07:38: Arterial Blood pH 7.476H, Arterial Blood Partial Pressure CO2 30.6L, Arterial Blood Partial Pressure O2 65.8L, Arterial Blood HCO3 22.1, Arterial Blood Oxygen Saturation 93.0L, Arterial Blood Base Excess -0.8, Freddy Test Positive Height (Feet): 5 Height (Inches): 7.00 Weight (Pounds): 121 Objective WDWN NAD reduced breath sounds bilaterally with diffuse rhonchi [id number] without MRG NABS nontender no HSM no CCE nonfocal obtunded Assessment/Plan Assessment/Plan: IMPRESSION: 1. Acute renal failure. 2. Hypernatremia. 3. Leukocytosis. 4. Possible sepsis. 5. Hypotension. 6. Dementia. 7. Acute on chronic encephalopathy. 8. bcx staph Epi 9. MRSA colonized 10. acute hypoxemic respiratory failure PLAN hydrate- hypotonic fluids noted PT ID noted; on zosyn only follow up cultures renal follow up significant worsening with severe hypoxemia transfer to ICU may need intubation obtain venous US ? aspiration even will discuss with consultants critical impression, plan, and exam edited and reviewed in detail care discussed with Patel Tesfaye MD Sep 17, 2020 08:33
--- NOTE | 2020-09-17 08:33 | NUR ---
CASE MANAGEMENT:REVIEW 09/17/20 SI: SEPSIS. PNA. ACUTE RENAL FAILURE *CHANGE IN CONDITION ON 09/15/20 98.5 79 32 98/60 98% ON NRB 15L/100% FIO2 WBC+23.9 P7.47 PCO2-30.6 PO2-65.8 IS: IV VANCOMYCIN Q12 IV ZOSYN Q8HRS IVF+KCL@50/HR IV PROTONIX QD : TELEMETRY STATUS DCP: BED HAS BEEN SECURED AT [facility]: TRANSFER TO ICU VENOUS DUPLEX CXR
[2020-09-17 08:46] LABS: HEMATOCRIT 29.6 % (42.0-52.0); HEMOGLOBIN 10.4 G/DL (14.2-18.0); MEAN CORPUSCULAR VOLUME 82 FL (80-99); PLATELET COUNT 177 K/UL (150-450); RED BLOOD COUNT 3.62 M/UL (4.70-6.10); RED CELL DISTRIBUTION WIDTH 14.7 % (11.6-14.8); WHITE BLOOD COUNT 20.6 K/UL (4.8-10.8)
[2020-09-17 09:26] LABS: ALANINE AMINOTRANSFERASE 30 U/L (12-78); ALBUMIN 1.8 G/DL (3.4-5.0); ALBUMIN/GLOBULIN RATIO 0.4 (1.0-2.7); ALKALINE PHOSPHATASE 57 U/L (46-116); ANION GAP 7 mmol/L (5-15); ASPARTATE AMINO TRANSFERASE 34 U/L (15-37); BILIRUBIN,TOTAL 0.5 MG/DL (0.2-1.0); BLOOD UREA NITROGEN 20 mg/dL (7-18); CARBON DIOXIDE 26 MMOL/L (21-32); CHLORIDE 109 MMOL/L (98-107); SODIUM 142 MMOL/L (136-145)
[2020-09-17] MEDS: Acetaminophen 650mg/20.3ml NG PRN (09:48)
[2020-09-17] MEDS: Pantoprazole Inj IVP SCH (09:48)
--- NOTE | 2020-09-17 11:11 | NUR ---
RD ASSESSMENT & RECOMMENDATIONS SEE CARE ACTIVITY FOR COMPLETE ASSESSMENT DAILY ESTIMATED NEEDS: Needs based on Wound, underweight/ 55kg 30-35 kcals/kg 6510-0322 total kcals 1.25-2 g protein/kg 69-110 g total protein 25-30 mL/kg 5089-5399 total fluid mLs NUTRITION DIAGNOSIS: Increased kcal/prot needs R/T wound healing and underweight status as evidenced by pt admitted w/ wounds including DTI 2 coccyx and stage 1 @ lt ischium, pt @ 73% IBW w/ low BMI per guidelines, s/p NGT insertion, on NGT feeds. CURRENT TF:Jevity 1.2 @ 50ml/hr x 24 hrs ENTERAL NUTRITION RECOMMENDATIONS: Jevity 1.2 @ 60ml/hr x 24 hrs to provide 1440ml, 1728kcal, 80g prot, 1160ml free water * As medically appropriate, increase goal rate to 60ml/hr x 24 hrs to meet 100% est kcal/prot needs * HOB over 30 degrees/ without IVF, H2O flush of 100ml q 8hrs ADDITIONAL RECOMMENDATIONS: * Calibrated daily bedscale wt Per SNF: HT=70" * Wound healing: TF rec @ goal will provide 100% RDI add Vit C 250mg QD, ZnSO4 220mg QD x 10days, Davidson BID via NGT * Monitor BGs, need for NISS w/ TF * Monitor lytes, replete as needed- high risk for refeeding syndrome -> check f/up phos and mag
--- NOTE | 2020-09-17 11:13 | Infectious Diseases Prog Note ---
Assessment/Plan Assessment/Plan antibiotics : zosyn A 1. Pneumonia COVID-19 test is negative. 2. Dementia. 3. Leukocytosis improving 4. Urinary tract infection 5. + blood cultures with coag neg staph likely contaminated P 1. continue zosyn 2. iv vancomycin started 3. sputum culture 4. will follow up cultures Subjective ROS Limited/Unobtainable: Yes Allergies: Coded Allergies: No Known Allergies (Unverified , 09/10/20) Objective Last 24 Hour Vital Signs Date Time Temp Pulse Resp B/P (MAP) Pulse Ox O2 Delivery O2 Flow Rate FiO2 09/17/20 10:18 99.3 09/17/20 04:00 98.6 78 26 103/56 (72) 98 09/17/20 04:00 86 09/17/20 00:00 98.5 79 32 98/60 (73) 98 09/16/20 21:00 Non-Rebreather 15.0 09/16/20 20:00 96 09/16/20 20:00 97.6 89 24 98/59 (72) 95 09/16/20 19:53 95 Non-Rebreather 15.0 100 09/16/20 16:00 83 09/16/20 16:00 98.4 91 25 106/60 (75) 93 09/16/20 13:16 92 22 92 Non-Rebreather 15.0 100 89 20 93 09/16/20 12:00 98.2 91 25 101/56 (71) 95 09/16/20 12:00 84 Height (Feet): 5 Height (Inches): 7.00 Weight (Pounds): 121 Respiratory/Chest: lungs clear Cardiovascular: normal rate, regular rhythm, no gallop/murmur Abdomen: soft, non tender Extremities: no edema Laboratory Tests Test 09/17/20 06:25 09/17/20 07:38 White Blood Count 20.6 K/UL (4.8-10.8) H Red Blood Count 3.62 M/UL (4.70-6.10) L Hemoglobin 10.4 G/DL (14.2-18.0) L Hematocrit 29.6 % (42.0-52.0) L Mean Corpuscular Volume 82 FL (80-99) Mean Corpuscular Hemoglobin 28.8 PG (27.0-31.0) Mean Corpuscular Hemoglobin Concent 35.2 G/DL (32.0-36.0) Red Cell Distribution Width 14.7 % (11.6-14.8) Platelet Count 177 K/UL (150-450) Mean Platelet Volume 8.5 FL (6.5-10.1) Neutrophils (%) (Auto) % (45.0-75.0) Lymphocytes (%) (Auto) % (20.0-45.0) Monocytes (%) (Auto) % (1.0-10.0) Eosinophils (%) (Auto) % (0.0-3.0) Basophils (%) (Auto) % (0.0-2.0) Neutrophils % (Manual) Pending Lymphocytes % (Manual) Pending Platelet Estimate Pending Platelet Morphology Pending Sodium Level 142 MMOL/L (136-145) Potassium Level 4.0 MMOL/L (3.5-5.1) Chloride Level 109 MMOL/L (98-107) H Carbon Dioxide Level 26 MMOL/L (21-32) Anion Gap 7 mmol/L (5-15) Blood Urea Nitrogen 20 mg/dL (7-18) H Creatinine 1.0 MG/DL (0.55-1.30) Estimat Glomerular Filtration Rate > 60 mL/min (>60) Glucose Level 88 MG/DL (74-106) Calcium Level 8.0 MG/DL (8.5-10.1) L Total Bilirubin 0.5 MG/DL (0.2-1.0) Aspartate Amino Transf (AST/SGOT) 34 U/L (15-37) Alanine Aminotransferase (ALT/SGPT) 30 U/L (12-78) Alkaline Phosphatase 57 U/L (46-116) Pro-B-Type Natriuretic Peptide 755 pg/mL (0-125) H Total Protein 6.0 G/DL (6.4-8.2) L Albumin 1.8 G/DL (3.4-5.0) L Globulin 4.2 g/dL Albumin/Globulin Ratio 0.4 (1.0-2.7) L Arterial Blood pH 7.476 (7.350-7.450) Arterial Blood Partial Pressure CO2 30.6 mmHg (35.0-45.0) L Arterial Blood Partial Pressure O2 65.8 mmHg (75.0-100.0) L Arterial Blood HCO3 22.1 mmol/L (22.0-26.0) Arterial Blood Oxygen Saturation 93.0 % (95-100) L Arterial Blood Base Excess -0.8 (-2-2) Freddy Test Positive Current Medications Medications (Trade) Dose Ordered Sig/Aleksander Route PRN Reason Start Time Stop Time Status Last Admin Dose Admin Acetaminophen (Tylenol) 650 mg Q4H PRN NG Temp >100.5 09/10/20 23:15 10/10/20 23:14 09/17/20 09:48 Al Hydroxide/Mg Hydroxide (Mylanta) 30 ml Q4H PRN NG Constipation 09/11/20 00:15 10/10/20 23:14 Albuterol/ Ipratropium (Albuterol/ Ipratropium) 3 ml Q4H PRN HHN Shortness of Breath 09/15/20 16:15 09/20/20 16:14 09/16/20 13:16 Finasteride (Proscar) 5 mg DAILY ORAL 09/13/20 09:00 12/12/20 08:59 09/17/20 09:48 Ondansetron HCl (Zofran) 4 mg Q6H PRN IVP Nausea & Vomiting 09/10/20 23:15 10/10/20 23:14 Pantoprazole (Protonix) 40 mg DAILY IVP 09/11/20 09:00 10/11/20 08:59 09/17/20 09:48 Piperacillin Sod/ Tazobactam Sod 3.375 gm/Sodium Chloride 110 ml @ 27.5 mls/hr Q8H IVPB 09/16/20 14:00 09/23/20 13:59 09/17/20 05:21 Potassium Chloride 10 meq/ Dextrose/Sodium Chloride 1,005 ml @ 50 mls/hr Q20H6M IV 09/15/20 21:00 10/15/20 20:59 09/16/20 16:38 Tamsulosin HCl (Flomax) 0.4 mg BEDTIME ORAL 09/12/20 21:00 10/12/20 20:59 09/16/20 20:49 Valproic Acid (Depakene) 1,000 mg BEDTIME NG 09/16/20 21:00 10/31/20 20:59 09/16/20 20:49 Vancomycin HCl (Vanco pharmacy to dose) 1 ea DAILY PRN MISC Per rx protocol 09/16/20 08:45 10/16/20 08:44 Vancomycin HCl 750 mg/Sodium Chloride 275 ml @ 183.333 mls/hr Q12H IVPB 09/16/20 23:00 09/21/20 22:59 09/16/20 23:01 Martha Collins MD Sep 17, 2020 11:13
[2020-09-17] MEDS: Vancomycin 750mg/NS 275ml IVPB SCH ×2 (11:18)
--- NOTE | 2020-09-17 12:41 | NUR ---
NURSE NOTES: Dr. Villasenor placed order for patient to be transferred to ICU. Nursing Environmental Protection Geologist informed and ICU charge nurse informed too. Awaiting for bed to be available.
--- NOTE | 2020-09-17 12:53 | Surgery Progress Note ---
Surgery Progress Note Subjective Additional Comments ill appearing on o2 lethargic declined wbc noted no n/v Objective Last 24 Hour Vital Signs Date Time Temp Pulse Resp B/P (MAP) Pulse Ox O2 Delivery O2 Flow Rate FiO2 09/17/20 10:18 99.3 09/17/20 04:00 98.6 78 26 103/56 (72) 98 09/17/20 04:00 86 09/17/20 00:00 98.5 79 32 98/60 (73) 98 09/16/20 21:00 Non-Rebreather 15.0 09/16/20 20:00 96 09/16/20 20:00 97.6 89 24 98/59 (72) 95 09/16/20 19:53 95 Non-Rebreather 15.0 100 09/16/20 16:00 83 09/16/20 16:00 98.4 91 25 106/60 (75) 93 09/16/20 13:16 92 22 92 Non-Rebreather 15.0 100 89 20 93 I&O Intake and Output 09/16/20 09/17/20 19:00 07:00 Output Total 300 ml Balance -300 ml Output Urine Total 300 ml # Bowel Movements 1 Dressing: other Wound: other Drains: other Cardiovascular: RSR Respiratory: decreased breath sounds, other Abdomen: soft, non-tender Extremities: no edema, no tenderness, no cyanosis Laboratory Tests Test 09/17/20 06:25 09/17/20 07:38 White Blood Count 20.6 K/UL (4.8-10.8) H Red Blood Count 3.62 M/UL (4.70-6.10) L Hemoglobin 10.4 G/DL (14.2-18.0) L Hematocrit 29.6 % (42.0-52.0) L Mean Corpuscular Volume 82 FL (80-99) Mean Corpuscular Hemoglobin 28.8 PG (27.0-31.0) Mean Corpuscular Hemoglobin Concent 35.2 G/DL (32.0-36.0) Red Cell Distribution Width 14.7 % (11.6-14.8) Platelet Count 177 K/UL (150-450) Mean Platelet Volume 8.5 FL (6.5-10.1) Neutrophils (%) (Auto) % (45.0-75.0) Lymphocytes (%) (Auto) % (20.0-45.0) Monocytes (%) (Auto) % (1.0-10.0) Eosinophils (%) (Auto) % (0.0-3.0) Basophils (%) (Auto) % (0.0-2.0) Differential Total Cells Counted 100 Neutrophils % (Manual) 84 % (45-75) H Lymphocytes % (Manual) 1 % (20-45) L Monocytes % (Manual) 5 % (1-10) Eosinophils % (Manual) 0 % (0-3) Basophils % (Manual) 0 % (0-2) Band Neutrophils 10 % (0-8) H Platelet Estimate Adequate Platelet Morphology Normal Anisocytosis 1+ Microcytosis 1+ Sodium Level 142 MMOL/L (136-145) Potassium Level 4.0 MMOL/L (3.5-5.1) Chloride Level 109 MMOL/L (98-107) H Carbon Dioxide Level 26 MMOL/L (21-32) Anion Gap 7 mmol/L (5-15) Blood Urea Nitrogen 20 mg/dL (7-18) H Creatinine 1.0 MG/DL (0.55-1.30) Estimat Glomerular Filtration Rate > 60 mL/min (>60) Glucose Level 88 MG/DL (74-106) Calcium Level 8.0 MG/DL (8.5-10.1) L Total Bilirubin 0.5 MG/DL (0.2-1.0) Aspartate Amino Transf (AST/SGOT) 34 U/L (15-37) Alanine Aminotransferase (ALT/SGPT) 30 U/L (12-78) Alkaline Phosphatase 57 U/L (46-116) Pro-B-Type Natriuretic Peptide 755 pg/mL (0-125) H Total Protein 6.0 G/DL (6.4-8.2) L Albumin 1.8 G/DL (3.4-5.0) L Globulin 4.2 g/dL Albumin/Globulin Ratio 0.4 (1.0-2.7) L Arterial Blood pH 7.476 (7.350-7.450) Arterial Blood Partial Pressure CO2 30.6 mmHg (35.0-45.0) L Arterial Blood Partial Pressure O2 65.8 mmHg (75.0-100.0) L Arterial Blood HCO3 22.1 mmol/L (22.0-26.0) Arterial Blood Oxygen Saturation 93.0 % (95-100) L Arterial Blood Base Excess -0.8 (-2-2) Freddy Test Positive Plan Problems: (1) Fever Assessment & Plan: maybe developing pneumonia cont abx pulm input thank you (2) Decubitus skin ulcer Assessment & Plan: Patient identified on admission to have multiple scabs on the left arm. mild open scabs with eschar. no drainage. no significant cellulitis. bruising no bilateral extremities noted. no signs of abuse. likely from agitation Sacral coccygeal noted to have a DTI 4.3X2.5CM. which is dark purple . RECOMMEND-CLEAN WITH SALINE, PAT DRY AND APPLY CALAZINE. COVER WITH OPTIFOAM DRESSING. REPLACE EVERY 3 DAYS OR NEEDED LEFT ISCHIUM- STAGE I PRESSURE ULCER MEASURES 4.5X1.7CM. NON-BLANCHABLE ERYTHEMA . RECOMMEND- APPLY CALAZINE AND COVER WITH OPTIFOAM DRESSING. REPLACE EVERY 7 DAYS. Turn q2h off load pressure with pillow off load heels nutritional optimization SKEIN SPOOLER eval will follow with recs thank you (3) Malnutrition Assessment & Plan: Mr. Roman is a 70 year old male BIBA to ED of [facility] on 09/10/2020 around 14:00 due to fever. He was found to be hypotensive 91/55 (67), Temp: 100.0, leukocytosis 20.8k and subsequently transferred to ICU for septic shock. The blood culture is reportedly positive for gram positive cocci. NG tube was placed, KUB confirmed the placement to day. Pt is clinically stable with leukocytosis 20.1, improved BUN and creatine, stable hemodynamic without vasopressor. Findings: Mr. Roman is disoriented. He does ot follow commands at this time. Oral cavity is noted to be dried blood concretion likely from NG trauma. No active bleeding site is seen. Due to his level f alertness, already NG tube is in placed, PO trial was not done at this time. Transferred out ICU last night. He is non on tele. Issues: multiple wounds, s.p balaji/nasal/pharyngeal bleeding with blood culture Gram positive cocci leukocytosis trending down from 20k-20k-16k BUN/Creatine trending down from 93/1.9-79/1.3-54/1.1 Temp: 98.1~98.7, Pulse: 62~72, BP: 105/67~120/48, SPO2 98~100% on 2 liter S: Oral cavity is better condition comparison to yesterday. The mucosa is severely erythema without active bleeding. Limited level of alertness for direct therapy. NG in placed O: 1. Laryngeal palpation to trigger spontaneous cough and swallow: Pt triggered cough with laryngeal palpation. Approximately 5~10 seconds after coughing, he triggered swallow. based on this observation, he presents with copious secretion in pharynx and larynx. He continued to have poor secretion management at laryngeal level at this time. NO PO trial was given due to poor secretion at the level of air way with low level of alertness. A: 1. Probable aspiration of his own secretion with poor ability to cough and swallow 2. Dysphagia P: 1. NPO for now 2. Observe his secretion, and level of alertness for PO readiness. DAILY ESTIMATED NEEDS: Needs based on Wound, underweight/ 55kg 30-35 kcals/kg 9687-8352 total kcals 1.25-2 g protein/kg 69-110 g total protein 25-30 mL/kg 0537-4622 total fluid mLs NUTRITION DIAGNOSIS: Increased kcal/prot needs R/T wound healing and underweight status as evidenced by pt admitted w/ wounds including DTI 2 coccyx and stage 1 @ lt ischium, pt @ 73% IBW w/ low BMI per guidelines, s/p NGT insertion, on NGT feeds. CURRENT TF:Jevity 1.2 @ 50ml/hr x 24 hrs ENTERAL NUTRITION RECOMMENDATIONS: Jevity 1.2 @ 60ml/hr x 24 hrs to provide 1440ml, 1728kcal, 80g prot, 1160ml free water * As medically appropriate, increase goal rate to 60ml/hr x 24 hrs to meet 100% est kcal/prot needs * HOB over 30 degrees/ without IVF, H2O flush of 100ml q 8hrs ADDITIONAL RECOMMENDATIONS: * Calibrated daily bedscale wt Per SNF: HT=70" * Wound healing: TF rec @ goal will provide 100% RDI add Vit C 250mg QD, ZnSO4 220mg QD x 10days, Davidson BID via NGT * Monitor BGs, need for NISS w/ TF * Monitor lytes, replete as needed- high risk for refeeding syndrome -> check f/up phos and mag (4) Severe sepsis (5) Open upper arm wound (6) Hematuria Assessment & Plan: as per urology Aubrey Gutierrez Sep 17, 2020 12:53
--- NOTE | 2020-09-17 13:41 | Diagnostic Imaging Report ---
Indication: Shortness of breath Technique: One view of the chest Comparison: 09/16/2020 Findings: Interim development of triangular right basilar opacity, likely atelectasis of the right lower lobe. There is subsegmental atelectasis at the left lung base. There may also be a significant component of retrocardiac infiltrate and atelectasis involving the left lower lobe. There is minimal interstitial congestion, probably unchanged allowing for differences in exposure technique and lower lung volumes. Nasogastric tube is again demonstrated Impression: interval development of probable right lower lobe atelectasis. Dr. Villasenor notified at the time of interpretation Unchanged retrocardiac consolidation/atelectasis and left basilar subsegmental atelectasis Persistent bilateral interstitial congestion
[2020-09-17] MEDS: Potassium Chloride 10 MEQ in D5 1/2NS 1,000 ML IV SCH (13:44)
--- NOTE | 2020-09-17 15:05 | Diagnostic Imaging Report ---
Indication: Shortness of breath, hypoxia Technique: Grayscale and duplex images of the bilateral lower extremity veins Comparison: None Findings: Bilaterally, grayscale and duplex images demonstrate no evidence of intraluminal thrombus. Normal phasic Doppler waveforms, demonstrating normal augmentation response and no evidence of valvular insufficiency. Greater saphenous vein(s) and tibial veins are patent. Normal compressibility. Impression: Negative for evidence of lower extremity deep venous thrombosis bilaterally
--- NOTE | 2020-09-17 16:34 | NUR ---
NURSE NOTES: Received bedside report from ARTEMIO Levin. Pt transfer from [facility]. On arrival, VSS, no signs of distress noted. Pt is awake, A&Ox0, opens eyes spontaneously but does not follow commands, non-verbal. Pt's HR 70-80s, NSR on the international logistics manager. Pt's respirations even and unlabored, on a non-rebreather at 15L/min, O2 sat 95-100%. Pt has NGT through right nare with Jevity 1.2 running at 50 mL/hr, no residual noted. Pt has andrade catheter, draining well, clear yellow urine noted. Skin alterations noted and covered with optifoam. Pt has Left FA 22g IV with D5 1/2 NS with 10 mEq KCL running at 50 mL/hr. Pt has soft restraints on bilateral wrists, no injuries noted from extremities. HOB at 30 degrees. Bed locked and in lowest position. Bed rails up. Safety precautions maintained. Will continue to monitor.
--- NOTE | 2020-09-17 17:14 | NUR ---
NURSE HAND-OFF REPORT: Important Events on Shift:[Dr. Villasenor put in transfer order to ICU.] Patient Status: [Full COde] Diet: [Jevety 1.2 at 50 cc/hr] Pending Orders: [] Pending Results/Labs:[] Pending MD notification:[] Latest Vital Signs: Temperature 97.7 , Pulse 74 , B/P 97 /58 , Respiratory Rate 20 , O2 SAT 98 , Non-Rebreather, O2 Flow Rate 15.0 . Vital Sign Comment: [Temp 100.8 at 0800, Dr. Villasenor informed] EKG Rhythm: Sinus Rhythm Rhythm change?: N MD Notified?: Y -Dr. Gabriel BENITEZ Response: Latest Schultz Fall Score: 70 Fall Risk: High Risk Safety Measures: Call light Within Reach, Bed Alarm Zone 1, Side Rails Side Rails x3, Bed position Low and Locked. Fall Precautions: Yellow Socks Door Sign Patient Fall Education Report given to [ARTEMIO Gagnon ICU].
--- NOTE | 2020-09-17 18:00 | NUR ---
NURSE NOTES: Wound pictures taken, documented, and uploaded in pt's chart. Pt's VSS, no signs of distress noted. Safety precautions maintained. Will continue to monitor.
--- NOTE | 2020-09-17 19:25 | NUR ---
NURSE HAND-OFF REPORT: Latest Vital Signs: Temperature 97.8 , Pulse 82 , B/P 112 /69 , Respiratory Rate 25 , O2 SAT 100 , Non-Rebreather, O2 Flow Rate 15.0 . Vital Sign Comment: EKG Rhythm: Sinus Rhythm Rhythm change?: N MD Notified?: MD Response: Latest Schultz Fall Score: 70 Fall Risk: High Risk Safety Measures: Call light Within Reach, Bed Alarm Zone 1, Side Rails Side Rails x3, Bed position Low and Locked. Fall Precautions: Yellow Socks Door Sign Patient Fall Education Report given to JOJO Nash for continuity of care. Pt stable.
--- NOTE | 2020-09-17 20:00 | NUR ---
NURSE NOTES: received in no acute distress, slightly tachpneic with rr 25-30/min with o2 sat 100% on non rebreather mask at 100%os, coughimg productively and unable to clear secretion, orally suctioned with thick white secretion, surveillance monitor shows nsr wit hr on the 80's/min bp 122/75,afebrile, ngt intact and patent with jevity 1.2 at 50 ml/hr, with minimal residual,incontinent of black stool, andrade cath intact and patent with dark sky urine, repositioned and skin care done, very restless at this time, soft wrist restraints on to right and left wrists to prevent from pulling out iv,ngt,f/c
[2020-09-17] MEDS: Tamsulosin 0.4mg cap ORAL SCH (20:29)
[2020-09-17] MEDS: Valproic Acid 250mg/5ml Liquid NG SCH (20:38)
--- NOTE | 2020-09-17 22:00 | NUR ---
NURSE NOTES: repositioned, had another black stool, mod amount, cleansed, o2 sat remains 100%, in no acute resp distress, no noted bleeding from the andrade cath
--- NOTE | 2020-09-17 23:00 | NUR ---
HAND-OFF: Report given to Tiffany moreno.
--- NOTE | 2020-09-17 23:15 | NUR ---
NURSE NOTES: Received patient and report from ARTEMIO Nash. Patient is observed resting in bed and noted to be alert and calm but remains disoriented and unable to follow commands at this time. Pt speech noted to be inappropriate and garbled but able to understand speech with some difficulty. No pain noted upon assessment. Pt is currently on nonrebreather at 15L/min with an O2 saturation of 100% noted. Pt noted to be SOB intermittently and have difficulty clearing secretions but remains free from s/sx of acute respiratory distress at this time. Bilateral lower lobe breath sounds noted to be diminished upon auscultation with rhonchi noted in bilateral upper lobes. Pt noted to be SR on tele monitor with a HR of 84. L FA 22g IV catheter noted which remains asymptomatic, intact and patent. D5 1/2 NS+10kcl currently infusing at 50mL/hr as ordered and Zosyn. Will attempt to place additional IV catheter for scheduled Vancomycin administration. VS obtained and noted to be stable. Hyperactive bowel sounds noted in all four quadrants; abdomen remains round and soft. L nare NG Tube noted which remains intact and secured. Jevity 1.2 continues to infuse at 50mL/hr with no residual noted. Rae catheter noted draining dark sky urine to gravity. Diagnostics reviewed at bedside. Skin alterations noted. Edema and ecchymosis noted on bilateral upper extremities. Fall, Aspiration and Skin precautions observed. Pt repositioned for comfort and safety. Pt remains resting in bed; Bed remains in the lowest position with the safety wheels engaged, call light within reach, side rails up x3 and bed alarm activated. Will continue plan of care. Will continue to monitor.
--- NOTE | 2020-09-17 23:40 | NUR ---
NURSE NOTES: Pt assessed for restraint removal criteria. Pt provided with education and diversional activities including television and noted to be calm. Bilateral soft wrist restraints discontinued per order. ROM exercises performed per pt tolerance and CMS remains intact. Will continue to monitor patient closely.
[2020-09-18] VITALS (24 sets, daily range): BP systolic 95–127; BP diastolic 53–85
[2020-09-18] MEDS: Vancomycin 1 GM in NS 275 ML IVPB SCH ×3 (00:01→22:09)
--- NOTE | 2020-09-18 01:00 | NUR ---
NURSE NOTES: Pt provided with a bed bath, oral care and linen change. Large, liquid, brown BM noted. Wound care performed per orders without incident, no change from most recent wound care photos. R FA 20g IV catheter placed on first attempt without incident. Scheduled Vancomycin administered as ordered. Pt remains free from s/sx of adverse effects from medication administration. Bedside assessment performed, assessed pt for pain with a FLACC score of 0 noted. Pt remains free from s/sx of acute cardiopulmonary distress at this time. Diversional activities in place and remain successful at this time. ROM exercises performed per pt tolerance. Pt repositioned for safety and comfort. Fall, Aspiration and Skin precautions observed. Pt remains resting in bed; Bed remains in the lowest position with the safety wheels engaged, call light within reach, side rails up x3 and bed alarm activated. Will continue plan of care. Will continue to monitor.
--- NOTE | 2020-09-18 01:14 | Cardiology Progress Note ---
Subjective DATE OF SERVICE: Sep 17, 2020 Remains congested today, with less SOB. WBC remains above 20K today. Monitor: sinus rhythm; no significant bradycardia. CXR (09/17) persisting left consolidation with new right atelectasis/infiltr Objective Last 24 Hour Vital Signs Date Time Temp Pulse Resp B/P (MAP) Pulse Ox O2 Delivery O2 Flow Rate FiO2 09/18/20 01:00 83 25 114/69 (84) 100 09/18/20 00:00 98.4 82 30 107/59 (75) 100 09/18/20 00:00 15.0 09/18/20 00:00 Non-Rebreather 15.0 Non-Rebreather 15.0 Non-Rebreather 15.0 09/17/20 23:00 82 29 124/67 (86) 100 09/17/20 22:00 88 28 108/63 (78) 100 09/17/20 21:59 100 Non-Rebreather 15.0 100 09/17/20 21:00 89 25 133/69 (90) 100 09/17/20 20:00 Non-Rebreather 15.0 09/17/20 20:00 85 09/17/20 20:00 98.2 85 27 122/75 (91) 100 09/17/20 19:00 82 25 112/69 (83) 100 09/17/20 18:00 74 24 106/61 (76) 100 09/17/20 17:00 Non-Rebreather 15.0 09/17/20 17:00 72 22 104/65 (78) 99 09/17/20 16:34 15.0 09/17/20 16:34 97.8 92 14 93/57 (69) 97 09/17/20 16:34 71 09/17/20 16:00 97.7 74 20 97/58 (71) 98 09/17/20 12:00 82 09/17/20 12:00 97.0 78 22 99/59 (72) 98 09/17/20 10:18 99.3 09/17/20 08:00 89 09/17/20 08:00 100.8 84 20 103/58 (73) 97 09/17/20 08:00 Non-Rebreather 15.0 09/17/20 04:00 98.6 78 26 103/56 (72) 98 09/17/20 04:00 86 ROS: no change from my evaluation of 09/10/20. HEENT: normal ENT inspection RHYTHM: NSR, ST LUNGS: bilat. rhonchi and rales CARDIAC: normal rate, regular rhythm, normal S1 and S2 ABDOMEN: normal bowel sounds, soft, other - sacral decub EXTREMITIES: No edema Laboratory Tests Test 09/17/20 06:25 09/17/20 07:38 09/17/20 21:30 White Blood Count 20.6 K/UL (4.8-10.8) H Red Blood Count 3.62 M/UL (4.70-6.10) L Hemoglobin 10.4 G/DL (14.2-18.0) L Hematocrit 29.6 % (42.0-52.0) L Mean Corpuscular Volume 82 FL (80-99) Mean Corpuscular Hemoglobin 28.8 PG (27.0-31.0) Mean Corpuscular Hemoglobin Concent 35.2 G/DL (32.0-36.0) Red Cell Distribution Width 14.7 % (11.6-14.8) Platelet Count 177 K/UL (150-450) Mean Platelet Volume 8.5 FL (6.5-10.1) Neutrophils (%) (Auto) % (45.0-75.0) Lymphocytes (%) (Auto) % (20.0-45.0) Monocytes (%) (Auto) % (1.0-10.0) Eosinophils (%) (Auto) % (0.0-3.0) Basophils (%) (Auto) % (0.0-2.0) Differential Total Cells Counted 100 Neutrophils % (Manual) 84 % (45-75) H Lymphocytes % (Manual) 1 % (20-45) L Monocytes % (Manual) 5 % (1-10) Eosinophils % (Manual) 0 % (0-3) Basophils % (Manual) 0 % (0-2) Band Neutrophils 10 % (0-8) H Platelet Estimate Adequate Platelet Morphology Normal Anisocytosis 1+ Microcytosis 1+ Sodium Level 142 MMOL/L (136-145) Potassium Level 4.0 MMOL/L (3.5-5.1) Chloride Level 109 MMOL/L (98-107) H Carbon Dioxide Level 26 MMOL/L (21-32) Anion Gap 7 mmol/L (5-15) Blood Urea Nitrogen 20 mg/dL (7-18) H Creatinine 1.0 MG/DL (0.55-1.30) Estimat Glomerular Filtration Rate > 60 mL/min (>60) Glucose Level 88 MG/DL (74-106) Calcium Level 8.0 MG/DL (8.5-10.1) L Total Bilirubin 0.5 MG/DL (0.2-1.0) Aspartate Amino Transf (AST/SGOT) 34 U/L (15-37) Alanine Aminotransferase (ALT/SGPT) 30 U/L (12-78) Alkaline Phosphatase 57 U/L (46-116) Pro-B-Type Natriuretic Peptide 755 pg/mL (0-125) H Total Protein 6.0 G/DL (6.4-8.2) L Albumin 1.8 G/DL (3.4-5.0) L Globulin 4.2 g/dL Albumin/Globulin Ratio 0.4 (1.0-2.7) L Arterial Blood pH 7.476 (7.350-7.450) Arterial Blood Partial Pressure CO2 30.6 mmHg (35.0-45.0) L Arterial Blood Partial Pressure O2 65.8 mmHg (75.0-100.0) L Arterial Blood HCO3 22.1 mmol/L (22.0-26.0) Arterial Blood Oxygen Saturation 93.0 % (95-100) L Arterial Blood Base Excess -0.8 (-2-2) Freddy Test Positive Vancomycin Level Trough 11.4 ug/mL (5.0-12.0) Assessment/Plan Assessment/Plan Sepsis Leukocytosis Probable new aspiration PNA Recovering shock Hypovolemia Dehydration/hypernatremia corrected. Likely congestion due to aspiration Acute myocardial ischemia Acute renal failure HC assoc PNA UTI CVA/dementia Sinus bradycardia, asymptomatic Remains CRITICAL & GUARDED IVF until feeds advanced. Antimicrobials per ID; Vanco was added. Replace lytes as needed; follow up WBC. DVT prophyl Cardiac monitoring Hypotonic IVF hydration Madi Rios MD Sep 18, 2020 01:14
--- NOTE | 2020-09-18 03:00 | NUR ---
NURSE NOTES: Large, liquid, brown BM noted; Pt provided with a bed bath, oral care and linen change. Wound care performed per orders due to soiling, no change from most recent wound care photos. Bedside assessment performed, assessed pt for pain with a FLACC score of 0 noted. Pt remains free from s/sx of acute cardiopulmonary distress at this time. Pt noted to attempt to pull andrade catheter and other medical devices, pt provided with education and diversional activities. Will continue to monitor patient and consult with physician if indicated. ROM exercises performed per pt tolerance. Pt repositioned for safety and comfort. Fall, Aspiration and Skin precautions observed. Pt remains resting in bed; Bed remains in the lowest position with the safety wheels engaged, call light within reach, side rails up x3 and bed alarm activated. Will continue plan of care. Will continue to monitor.
[2020-09-18 04:47] LABS: HEMATOCRIT 28.2 % (42.0-52.0); HEMOGLOBIN 9.9 G/DL (14.2-18.0); MEAN CORPUSCULAR VOLUME 82 FL (80-99); PLATELET COUNT 188 K/UL (150-450); RED BLOOD COUNT 3.46 M/UL (4.70-6.10); RED CELL DISTRIBUTION WIDTH 14.9 % (11.6-14.8); WHITE BLOOD COUNT 16.7 K/UL (4.8-10.8)
--- NOTE | 2020-09-18 05:00 | NUR ---
NURSE NOTES: Bedside assessment performed, assessed pt for pain with a FLACC score of 0 noted. Pt remains free from s/sx of acute cardiopulmonary distress at this time. Pt noted to be pulling at medical devices including Rae catheter posing safety risk to self; bilateral soft wrist restraints in place for pt safety. CMS remains intact and ROM exercises performed per pt tolerance. AM lab orders noted and sample collected for analysis; collected sputum for culture as ordered and sent to laboratory. Will await results. Pt repositioned for safety and comfort. Fall, Aspiration and Skin precautions observed. Pt remains resting in bed; Bed remains in the lowest position with the safety wheels engaged, call light within reach, side rails up x3 and bed alarm activated. Will continue plan of care. Will continue to monitor.
[2020-09-18 05:06] LABS: ALANINE AMINOTRANSFERASE 27 U/L (12-78); ALBUMIN 1.6 G/DL (3.4-5.0); ALBUMIN/GLOBULIN RATIO 0.4 (1.0-2.7); ALKALINE PHOSPHATASE 59 U/L (46-116); ASPARTATE AMINO TRANSFERASE 33 U/L (15-37); BILIRUBIN,TOTAL 0.4 MG/DL (0.2-1.0); BLOOD UREA NITROGEN 22 mg/dL (7-18); CALCIUM 7.7 MG/DL (8.5-10.1); CARBON DIOXIDE 25 MMOL/L (21-32); CHLORIDE 110 MMOL/L (98-107); POTASSIUM 3.7 MMOL/L (3.5-5.1); SODIUM 143 MMOL/L (136-145)
[2020-09-18] MEDS: Piperacillin/Tazobactam 3.375 GM in NS 110 ML IVPB SCH ×3 (05:58→21:32)
--- NOTE | 2020-09-18 06:11 | General Progress Note ---
Subjective ROS Limited/Unobtainable: No Constitutional: Reports: malaise, weakness HEENT: Reports: no symptoms Cardiovascular: Reports: no symptoms Respiratory: Reports: shortness of breath, sputum Gastrointestinal/Abdominal: Reports: diarrhea, difficulty swallowing Genitourinary: Reports: no symptoms Neurologic/Psychiatric: Reports: pre-existing deficit Endocrine: Reports: no symptoms Hematologic/Lymphatic: Reports: anemia Allergies: Coded Allergies: No Known Allergies (Unverified , 09/10/20) All Systems: reviewed and negative except above Subjective no events. remains on nrbm. tolerating feeds. +watery diarrhea. confused. on iv abx Objective Last 24 Hour Vital Signs Date Time Temp Pulse Resp B/P (MAP) Pulse Ox O2 Delivery O2 Flow Rate FiO2 09/18/20 04:00 15.0 09/18/20 04:00 98.4 85 23 111/66 (81) 99 09/18/20 04:00 Non-Rebreather 15.0 Non-Rebreather 15.0 Non-Rebreather 15.0 09/18/20 03:12 85 09/18/20 03:00 84 24 109/64 (79) 98 09/18/20 02:00 85 29 107/57 (74) 99 09/18/20 01:00 83 25 114/69 (84) 100 09/18/20 00:00 98.4 82 30 107/59 (75) 100 09/18/20 00:00 15.0 09/18/20 00:00 Non-Rebreather 15.0 Non-Rebreather 15.0 Non-Rebreather 15.0 09/17/20 23:00 82 29 124/67 (86) 100 09/17/20 22:00 88 28 108/63 (78) 100 09/17/20 21:59 100 Non-Rebreather 15.0 100 09/17/20 21:00 89 25 133/69 (90) 100 09/17/20 20:00 Non-Rebreather 15.0 09/17/20 20:00 85 09/17/20 20:00 98.2 85 27 122/75 (91) 100 09/17/20 19:00 82 25 112/69 (83) 100 09/17/20 18:00 74 24 106/61 (76) 100 11/30/20 17:00 Non-Rebreather 15.0 09/17/20 17:00 72 22 104/65 (78) 99 09/17/20 16:34 15.0 09/17/20 16:34 97.8 92 14 93/57 (69) 97 09/17/20 16:34 71 09/17/20 16:00 97.7 74 20 97/58 (71) 98 09/17/20 12:00 82 09/17/20 12:00 97.0 78 22 99/59 (72) 98 09/17/20 10:18 99.3 09/17/20 08:00 89 09/17/20 08:00 100.8 84 20 103/58 (73) 97 09/17/20 08:00 Non-Rebreather 15.0 Intake and Output 09/17/20 09/18/20 19:00 07:00 Intake Total 700 ml 1385.0 ml Output Total 575 ml 290 ml Balance 125 ml 1095.0 ml Free Water 100 ml IV Total 150 ml 835.0 ml Tube Feeding 550 ml 450 ml Output Urine Total 575 ml 290 ml # Bowel Movements 1 2 Laboratory Tests 09/17/20 06:25: White Blood Count 20.6H, Red Blood Count 3.62L, Hemoglobin 10.4L, Hematocrit 29.6L, Mean Corpuscular Volume 82, Mean Corpuscular Hemoglobin 28.8, Mean Corpuscular Hemoglobin Concent 35.2, Red Cell Distribution Width 14.7, Platelet Count 177, Mean Platelet Volume 8.5, Neutrophils (%) (Auto) , Lymphocytes (%) (Auto) , Monocytes (%) (Auto) , Eosinophils (%) (Auto) , Basophils (%) (Auto) , Differential Total Cells Counted 100, Neutrophils % (Manual) 84H, Lymphocytes % (Manual) 1L, Monocytes % (Manual) 5, Eosinophils % (Manual) 0, Basophils % (Manual) 0, Band Neutrophils 10H, Platelet Estimate Adequate, Platelet Morphology Normal, Anisocytosis 1+, Microcytosis 1+, Sodium Level 142, Potassium Level 4.0, Chloride Level 109H, Carbon Dioxide Level 26, Anion Gap 7, Blood Urea Nitrogen 20H, Creatinine 1.0, Estimat Glomerular Filtration Rate > 60, Glucose Level 88, Calcium Level 8.0L, Total Bilirubin 0.5, Aspartate Amino Transf (AST/SGOT) 34, Alanine Aminotransferase (ALT/SGPT) 30, Alkaline Phosphatase 57, Pro-B-Type Natriuretic Peptide 755H, Total Protein 6.0L, Albumin 1.8L, Globulin 4.2, Albumin/Globulin Ratio 0.4L 09/17/20 07:38: Arterial Blood pH 7.476H, Arterial Blood Partial Pressure CO2 30.6L, Arterial Blood Partial Pressure O2 65.8L, Arterial Blood HCO3 22.1, Arterial Blood Oxygen Saturation 93.0L, Arterial Blood Base Excess -0.8, Freddy Test Positive 09/17/20 21:30: Vancomycin Level Trough 11.4 09/18/20 03:45: White Blood Count 16.7H, Red Blood Count 3.46L, Hemoglobin 9.9L, Hematocrit 28.2L, Mean Corpuscular Volume 82, Mean Corpuscular Hemoglobin 28.6, Mean Corpuscular Hemoglobin Concent 35.1, Red Cell Distribution Width 14.9H, Platelet Count 188, Mean Platelet Volume 8.7, Neutrophils (%) (Auto) , Lymphocytes (%) (Auto) , Monocytes (%) (Auto) , Eosinophils (%) (Auto) , Basophils (%) (Auto) , Neutrophils % (Manual) [Pending], Lymphocytes % (Manual) [Pending], Platelet Estimate [Pending], Platelet Morphology [Pending], Sodium Level 143, Potassium Level 3.7, Chloride Level 110H, Carbon Dioxide Level 25, Blood Urea Nitrogen 22H , Creatinine 1.0, Estimat Glomerular Filtration Rate > 60, Glucose Level 89, Calcium Level 7.7L, Total Bilirubin 0.4, Aspartate Amino Transf (AST/SGOT) 33, Alanine Aminotransferase (ALT/SGPT) 27, Alkaline Phosphatase 59, Total Protein 5.6L, Albumin 1.6L, Globulin 4.0, Albumin/Globulin Ratio 0.4L Height (Feet): 5 Height (Inches): 7.00 Weight (Pounds): 121 General Appearance: WD/WN, cachetic, thin EENT: PERRL/EOMI Neck: non-tender, normal alignment, supple Cardiovascular: normal rate, regular rhythm Respiratory/Chest: rhonchi - bilaterally Abdomen: normal bowel sounds, non tender, soft, no organomegaly Extremities: normal range of motion Edema: no edema noted Arm (L), no edema noted Arm (R) Neurologic: armature winder 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 II-XII grossly normal, disoriented Skin: normal pigmentation Assessment/Plan Problem List: (1) PNA (pneumonia) ICD Codes: J18.9 - Pneumonia, unspecified organism SNOMED: 631358787 (2) UTI (urinary tract infection) ICD Codes: N39.0 - Urinary tract infection, site not specified SNOMED: 75926616 (3) Fever ICD Codes: R50.9 - Fever, unspecified SNOMED: 426906961 (4) Decubitus skin ulcer ICD Codes: L89.90 - Pressure ulcer of unspecified site, unspecified stage SNOMED: 187050824 (5) Malnutrition ICD Codes: E46 - Unspecified protein-calorie malnutrition SNOMED: 19090572 (6) Severe sepsis ICD Codes: A41.9 - Sepsis, unspecified organism; R65.20 - Severe sepsis without septic shock SNOMED: 56773513 (7) Hematuria ICD Codes: R31.9 - Hematuria, unspecified SNOMED: 21715719 Status: stable Assessment/Plan: iv abx per id follow up cultures scd check stool cdiff resp care wean nrb monitor labs swallow eval when more alert. remains serious and guarded Jason Layne MD Sep 18, 2020 06:11
--- NOTE | 2020-09-18 07:10 | NUR ---
NURSE HAND-OFF REPORT: Latest Vital Signs: Temperature 98.4 , Pulse 77 , B/P 110 /67 , Respiratory Rate 21 , O2 SAT 100 , Non-Rebreather, O2 Flow Rate 15.0 . Vital Sign Comment: VS remain stable at this time. EKG Rhythm: Sinus Rhythm Rhythm change?: N MD Notified?: N Response: N/A Latest Schultz Fall Score: 70 Fall Risk: High Risk Safety Measures: Call light Within Reach, Bed Alarm Zone 2, Side Rails Side Rails x3, Bed position Low and Locked. Fall Precautions: Yellow Socks Door Sign Patient Fall Education Report given to ARTEMIO Tsang. Endorsed plan of care.
--- NOTE | 2020-09-18 07:20 | NUR ---
NURSE NOTES: Patient received from Chrsi ULLOA. Patient stable AOx0-1. Occasionally responding to name. Pupils sluggish but still react to light. Speech garbled. SR on panel monitor with cardiac sounds benign. RR even and unlabored with NRB at 15L saturating 96%. Bowel sounds present with 5mL residual. Feeding infusing. Rae in place draining yellow urine well to gravity. Radial pulses bounding. Pedal pulses present. Fluids infusing through peripheral IVs. Restraints on due to pulling on medical devices. On with good ROM, sensation and circulation. Side rails upx2, call light within reach. bed low and locked.
--- NOTE | 2020-09-18 07:47 | General Progress Note ---
Subjective ROS Limited/Unobtainable: Yes Allergies: Coded Allergies: No Known Allergies (Unverified , 09/10/20) Subjective doing poorly on 100% lethargic and reduced LOC congested transferred to ICU Objective Last 24 Hour Vital Signs Date Time Temp Pulse Resp B/P (MAP) Pulse Ox O2 Delivery O2 Flow Rate FiO2 09/18/20 07:00 77 21 110/67 (81) 100 09/18/20 06:00 79 23 108/58 (75) 100 09/18/20 05:00 84 27 106/68 (81) 100 09/18/20 04:00 15.0 09/18/20 04:00 98.4 85 23 111/66 (81) 99 09/18/20 04:00 Non-Rebreather 15.0 Non-Rebreather 15.0 Non-Rebreather 15.0 09/18/20 03:12 85 09/18/20 03:00 84 24 109/64 (79) 98 09/18/20 02:00 85 29 107/57 (74) 99 09/18/20 01:00 83 25 114/69 (84) 100 09/18/20 00:00 98.4 82 30 107/59 (75) 100 09/18/20 00:00 15.0 09/18/20 00:00 Non-Rebreather 15.0 Non-Rebreather 15.0 Non-Rebreather 15.0 09/17/20 23:00 82 29 124/67 (86) 100 09/17/20 22:00 88 28 108/63 (78) 100 09/17/20 21:59 100 Non-Rebreather 15.0 100 09/17/20 21:00 89 25 133/69 (90) 100 09/17/20 20:00 Non-Rebreather 15.0 09/17/20 20:00 85 09/17/20 20:00 98.2 85 27 122/75 (91) 100 09/17/20 19:00 82 25 112/69 (83) 100 09/17/20 18:00 74 24 106/61 (76) 100 09/17/20 17:00 Non-Rebreather 15.0 09/17/20 17:00 72 22 104/65 (78) 99 09/17/20 16:34 15.0 09/17/20 16:34 97.8 92 14 93/57 (69) 97 09/17/20 16:34 71 09/17/20 16:00 97.7 74 20 97/58 (71) 98 09/17/20 12:00 82 09/17/20 12:00 97.0 78 22 99/59 (72) 98 09/17/20 10:18 99.3 09/17/20 08:00 89 09/17/20 08:00 100.8 84 20 103/58 (73) 97 09/17/20 08:00 Non-Rebreather 15.0 Intake and Output 09/17/20 09/18/20 19:00 07:00 Intake Total 700 ml 1742.5 ml Output Total 575 ml 425 ml Balance 125 ml 1317.5 ml Free Water 130 ml IV Total 150 ml 1012.5 ml Tube Feeding 550 ml 600 ml Output Urine Total 575 ml 425 ml # Bowel Movements 1 2 Laboratory Tests 09/17/20 21:30: Vancomycin Level Trough 11.4 09/18/20 03:45: White Blood Count 16.7H, Red Blood Count 3.46L, Hemoglobin 9.9L, Hematocrit 28.2L, Mean Corpuscular Volume 82, Mean Corpuscular Hemoglobin 28.6, Mean Corpuscular Hemoglobin Concent 35.1, Red Cell Distribution Width 14.9H, Platelet Count 188, Mean Platelet Volume 8.7, Neutrophils (%) (Auto) , Lymphocytes (%) (Auto) , Monocytes (%) (Auto) , Eosinophils (%) (Auto) , Basophils (%) (Auto) , Neutrophils % (Manual) [Pending], Lymphocytes % (Manual) [Pending], Platelet Estimate [Pending], Platelet Morphology [Pending], Sodium Level 143, Potassium Level 3.7, Chloride Level 110H, Carbon Dioxide Level 25, Blood Urea Nitrogen 22H , Creatinine 1.0, Estimat Glomerular Filtration Rate > 60, Glucose Level 89, Calcium Level 7.7L, Total Bilirubin 0.4, Aspartate Amino Transf (AST/SGOT) 33, Alanine Aminotransferase (ALT/SGPT) 27, Alkaline Phosphatase 59, Total Protein 5.6L, Albumin 1.6L, Globulin 4.0, Albumin/Globulin Ratio 0.4L Height (Feet): 5 Height (Inches): 7.00 Weight (Pounds): 121 Objective WDWN NAD reduced breath sounds bilaterally with noted rhonchi [id number] without MRG NABS nontender no HSM no CCE nonfocal reduced LOC Assessment/Plan Status: stable Assessment/Plan: IMPRESSION: 1. Acute renal failure. 2. Hypernatremia. 3. Leukocytosis. 4. Possible sepsis. 5. Hypotension. 6. Dementia. 7. Acute on chronic encephalopathy. 8. bcx staph Epi 9. MRSA colonized 10. acute hypoxemic respiratory failure 11. atelectasis/collapse PLAN hydrate- hypotonic fluids noted PT ID noted; on zosyn only follow up cultures renal follow up significant worsening with severe hypoxemia; try to taper continue with ICU may need intubation negative venous US will likely need GT may need airway medications/laboratory data/nursing notes/ICU care reviewed in detail note reviewed and edited care discussed with RN and RT ICU time spent >40 minutes Patel Villasenor MD Sep 18, 2020 07:47
--- NOTE | 2020-09-18 08:23 | Urology Progress Note ---
Assessment/Plan Status: stable Assessment/Plan: 1. Gross hematuria. 2. Pyuria and possible UTI. 3. Proteinuria. 4. BPH. 5. Urinary retention. 6. Probable neurogenic bladder. 7. Possible sepsis. monitor clinically maintain andrade hand irrigated and do PRN abx as ordered flomax and proscar added cysto electively voiding trial at some point? Subjective Allergies: Coded Allergies: No Known Allergies (Unverified , 09/10/20) Subjective non-verbal Objective Last 24 Hour Vital Signs Date Time Temp Pulse Resp B/P (MAP) Pulse Ox O2 Delivery O2 Flow Rate FiO2 09/18/20 07:00 77 21 110/67 (81) 100 09/18/20 06:00 79 23 108/58 (75) 100 09/18/20 05:00 84 27 106/68 (81) 100 09/18/20 04:00 15.0 09/18/20 04:00 98.4 85 23 111/66 (81) 99 09/18/20 04:00 Non-Rebreather 15.0 Non-Rebreather 15.0 Non-Rebreather 15.0 09/18/20 03:12 85 09/18/20 03:00 84 24 109/64 (79) 98 09/18/20 02:00 85 29 107/57 (74) 99 09/18/20 01:00 83 25 114/69 (84) 100 09/18/20 00:00 98.4 82 30 107/59 (75) 100 09/18/20 00:00 15.0 09/18/20 00:00 Non-Rebreather 15.0 Non-Rebreather 15.0 Non-Rebreather 15.0 09/17/20 23:00 82 29 124/67 (86) 100 09/17/20 22:00 88 28 108/63 (78) 100 09/17/20 21:59 100 Non-Rebreather 15.0 100 09/17/20 21:00 89 25 133/69 (90) 100 09/17/20 20:00 Non-Rebreather 15.0 09/17/20 20:00 85 09/17/20 20:00 98.2 85 27 122/75 (91) 100 09/17/20 19:00 82 25 112/69 (83) 100 09/17/20 18:00 74 24 106/61 (76) 100 09/17/20 17:00 Non-Rebreather 15.0 09/17/20 17:00 72 22 104/65 (78) 99 09/17/20 16:34 15.0 09/17/20 16:34 97.8 92 14 93/57 (69) 97 09/17/20 16:34 71 09/17/20 16:00 97.7 74 20 97/58 (71) 98 09/17/20 12:00 82 09/17/20 12:00 97.0 78 22 99/59 (72) 98 09/17/20 10:18 99.3 Intake and Output 09/17/20 09/18/20 19:00 07:00 Intake Total 700 ml 1742.5 ml Output Total 575 ml 425 ml Balance 125 ml 1317.5 ml Free Water 130 ml IV Total 150 ml 1012.5 ml Tube Feeding 550 ml 600 ml Output Urine Total 575 ml 425 ml # Bowel Movements 1 2 Microbiology Date/Time Source Procedure Growth Status 09/10/20 20:05 Urine,Clean Catch Urine Culture - Final NO GROWTH AFTER 48 HOURS Complete 09/10/20 17:15 Rectum VRE Culture - Final Enterococcus Faecalis - Vre Complete 09/10/20 17:15 Nasal Nares MRSA Culture - Final Staphylococcus Aureus - Mrsa Complete 09/10/20 15:51 Blood Blood Culture - Final Staphylococcus Epidermidis Complete Current Medications Medications (Trade) Dose Ordered Sig/Aleksander Route PRN Reason Start Time Stop Time Status Last Admin Dose Admin Acetaminophen (Tylenol) 650 mg Q4H PRN NG Temp >100.5 09/10/20 23:15 10/10/20 23:14 09/17/20 09:48 Al Hydroxide/Mg Hydroxide (Mylanta) 30 ml Q4H PRN NG Constipation 09/11/20 00:15 10/10/20 23:14 Albuterol/ Ipratropium (Albuterol/ Ipratropium) 3 ml Q4H PRN HHN Shortness of Breath 09/15/20 16:15 09/20/20 16:14 09/16/20 13:16 Ascorbic Acid (Vitamin C) 250 mg DAILY ORAL 09/18/20 09:00 10/18/20 08:59 Finasteride (Proscar) 5 mg DAILY ORAL 09/13/20 09:00 12/12/20 08:59 09/17/20 09:48 Multivitamins (Multivitamins) 1 tab DAILY ORAL 09/18/20 09:00 10/18/20 08:59 Ondansetron HCl (Zofran) 4 mg Q6H PRN IVP Nausea & Vomiting 09/10/20 23:15 10/10/20 23:14 Pantoprazole (Protonix) 40 mg DAILY IVP 09/11/20 09:00 10/11/20 08:59 09/17/20 09:48 Piperacillin Sod/ Tazobactam Sod 3.375 gm/Sodium Chloride 110 ml @ 27.5 mls/hr Q8H IVPB 09/16/20 14:00 09/23/20 13:59 09/18/20 05:58 Potassium Chloride 10 meq/ Dextrose/Sodium Chloride 1,005 ml @ 50 mls/hr Q20H6M IV 09/15/20 21:00 10/15/20 20:59 09/17/20 13:44 Tamsulosin HCl (Flomax) 0.4 mg BEDTIME ORAL 09/12/20 21:00 10/12/20 20:59 09/17/20 20:29 Valproic Acid (Depakene) 1,000 mg BEDTIME NG 09/16/20 21:00 10/31/20 20:59 09/17/20 20:38 Vancomycin HCl (Vanco pharmacy to dose) 1 ea DAILY PRN MISC Per rx protocol 09/16/20 08:45 10/16/20 08:44 Vancomycin HCl 1 gm/Sodium Chloride 275 ml @ 184 mls/hr Q12H IVPB 09/17/20 23:00 09/22/20 22:59 09/18/20 00:01 Zinc Sulfate (Zinc Sulfate) 220 mg DAILY ORAL 09/18/20 09:00 09/28/20 08:59 Laboratory Tests 09/17/20 21:30: Vancomycin Level Trough 11.4 09/18/20 03:45: White Blood Count 16.7H, Red Blood Count 3.46L, Hemoglobin 9.9L, Hematocrit 28.2L, Mean Corpuscular Volume 82, Mean Corpuscular Hemoglobin 28.6, Mean Cor puscular Hemoglobin Concent 35.1, Red Cell Distribution Width 14.9H, Platelet Count 188, Mean Platelet Volume 8.7, Neutrophils (%) (Auto) , Lymphocytes (%) (Auto) , Monocytes (%) (Auto) , Eosinophils (%) (Auto) , Basophils (%) (Auto) , Neutrophils % (Manual) [Pending], Lymphocytes % (Manual) [Pending], Platelet Estimate [Pending], Platelet Morphology [Pending], Sodium Level 143, Potassium Level 3.7, Chloride Level 110H, Carbon Dioxide Level 25, Blood Urea Nitrogen 22H , Creatinine 1.0, Estimat Glomerular Filtration Rate > 60, Glucose Level 89, Calcium Level 7.7L, Total Bilirubin 0.4, Aspartate Amino Transf (AST/SGOT) 33, Alanine Aminotransferase (ALT/SGPT) 27, Alkaline Phosphatase 59, Total Protein 5.6L, Albumin 1.6L, Globulin 4.0, Albumin/Globulin Ratio 0.4L Height (Feet): 5 Height (Inches): 7.00 Weight (Pounds): 121 Objective exam stable urine clearing Levi Brunson MD Sep 18, 2020 08:23
[2020-09-18] MEDS: Ascorbic Acid 500mg tab ORAL SCH (08:32)
[2020-09-18] MEDS: Pantoprazole Inj IVP SCH (08:32)
[2020-09-18] MEDS: Zinc Sulfate 220mg ORAL SCH (08:33)
[2020-09-18] MEDS: Potassium Chloride 10 MEQ in D5 1/2NS 1,000 ML IV SCH (08:36)
--- NOTE | 2020-09-18 10:04 | NUR ---
NURSE NOTES: VSS at this time. No change in neuro status. RR appear to be labored but saturating well.
--- NOTE | 2020-09-18 10:07 | NUR ---
RADIOLOGY: PCXR COMPLETED 1000 HRS. NF
--- NOTE | 2020-09-18 10:40 | NUR ---
MORNING NANNY NOTE This SW did not receive a return call from the emergency contact, Lauren Gomez [phone]. SW left another vm to [facility] for call back. Pt is disoriented, thus unable to obtain information from pt at this time.
--- NOTE | 2020-09-18 12:09 | Infectious Diseases Prog Note ---
Assessment/Plan Assessment/Plan antibiotics : vancomycin iv, zosyn A 1. Pneumonia COVID-19 test is negative. 2. Dementia. 3. Leukocytosis improving 4. Urinary tract infection 5. + blood cultures with coag neg staph likely contaminated P 1. continue vancomycin iv, zosyn 2. will follow up cultures Subjective ROS Limited/Unobtainable: Yes Allergies: Coded Allergies: No Known Allergies (Unverified , 09/10/20) Objective Last 24 Hour Vital Signs Date Time Temp Pulse Resp B/P (MAP) Pulse Ox O2 Delivery O2 Flow Rate FiO2 09/18/20 11:00 80 27 107/62 (77) 100 09/18/20 10:00 75 21 108/85 (93) 100 09/18/20 09:00 78 27 109/64 (79) 100 09/18/20 08:00 Non-Rebreather 15.0 Non-Rebreather 15.0 Non-Rebreather 15.0 09/18/20 08:00 79 09/18/20 08:00 73 21 105/58 (74) 100 09/18/20 08:00 15.0 09/18/20 07:00 77 21 110/67 (81) 100 09/18/20 06:55 100 Non-Rebreather 15.0 100 09/18/20 06:00 79 23 108/58 (75) 100 09/18/20 05:00 84 27 106/68 (81) 100 09/18/20 04:00 15.0 09/18/20 04:00 98.4 85 23 111/66 (81) 99 09/18/20 04:00 Non-Rebreather 15.0 Non-Rebreather 15.0 Non-Rebreather 15.0 09/18/20 03:12 85 09/18/20 03:00 84 24 109/64 (79) 98 09/18/20 02:00 85 29 107/57 (74) 99 09/18/20 01:00 83 25 114/69 (84) 100 09/18/20 00:00 98.4 82 30 107/59 (75) 100 09/18/20 00:00 15.0 09/18/20 00:00 Non-Rebreather 15.0 Non-Rebreather 15.0 Non-Rebreather 15.0 09/17/20 23:00 82 29 124/67 (86) 100 09/17/20 22:00 88 28 108/63 (78) 100 09/17/20 21:59 100 Non-Rebreather 15.0 100 09/17/20 21:00 89 25 133/69 (90) 100 09/17/20 20:00 Non-Rebreather 15.0 09/17/20 20:00 85 09/17/20 20:00 98.2 85 27 122/75 (91) 100 09/17/20 19:00 82 25 112/69 (83) 100 09/17/20 18:00 74 24 106/61 (76) 100 09/17/20 17:00 Non-Rebreather 15.0 09/17/20 17:00 72 22 104/65 (78) 99 09/17/20 16:34 15.0 09/17/20 16:34 97.8 92 14 93/57 (69) 97 09/17/20 16:34 71 09/17/20 16:00 97.7 74 20 97/58 (71) 98 Height (Feet): 5 Height (Inches): 7.00 Weight (Pounds): 121 Respiratory/Chest: lungs clear Cardiovascular: normal rate, regular rhythm, no gallop/murmur Abdomen: soft, non tender Extremities: no edema Laboratory Tests Test 09/17/20 21:30 09/18/20 03:45 09/18/20 08:25 Vancomycin Level Trough 11.4 ug/mL (5.0-12.0) White Blood Count 16.7 K/UL (4.8-10.8) H Red Blood Count 3.46 M/UL (4.70-6.10) L Hemoglobin 9.9 G/DL (14.2-18.0) L Hematocrit 28.2 % (42.0-52.0) L Mean Corpuscular Volume 82 FL (80-99) Mean Corpuscular Hemoglobin 28.6 PG (27.0-31.0) Mean Corpuscular Hemoglobin Concent 35.1 G/DL (32.0-36.0) Red Cell Distribution Width 14.9 % (11.6-14.8) H Platelet Count 188 K/UL (150-450) Mean Platelet Volume 8.7 FL (6.5-10.1) Neutrophils (%) (Auto) % (45.0-75.0) Lymphocytes (%) (Auto) % (20.0-45.0) Monocytes (%) (Auto) % (1.0-10.0) Eosinophils (%) (Auto) % (0.0-3.0) Basophils (%) (Auto) % (0.0-2.0) Differential Total Cells Counted 100 Neutrophils % (Manual) 86 % (45-75) H Lymphocytes % (Manual) 5 % (20-45) L Monocytes % (Manual) 8 % (1-10) Eosinophils % (Manual) 0 % (0-3) Basophils % (Manual) 0 % (0-2) Band Neutrophils 1 % (0-8) Platelet Estimate Adequate Platelet Morphology Normal Hypochromasia 1+ Anisocytosis 1+ Sodium Level 143 MMOL/L (136-145) Potassium Level 3.7 MMOL/L (3.5-5.1) Chloride Level 110 MMOL/L (98-107) H Carbon Dioxide Level 25 MMOL/L (21-32) Blood Urea Nitrogen 22 mg/dL (7-18) H Creatinine 1.0 MG/DL (0.55-1.30) Estimat Glomerular Filtration Rate > 60 mL/min (>60) Glucose Level 89 MG/DL (74-106) Calcium Level 7.7 MG/DL (8.5-10.1) L Total Bilirubin 0.4 MG/DL (0.2-1.0) Aspartate Amino Transf (AST/SGOT) 33 U/L (15-37) Alanine Aminotransferase (ALT/SGPT) 27 U/L (12-78) Alkaline Phosphatase 59 U/L (46-116) Total Protein 5.6 G/DL (6.4-8.2) L Albumin 1.6 G/DL (3.4-5.0) L Globulin 4.0 g/dL Albumin/Globulin Ratio 0.4 (1.0-2.7) L Arterial Blood pH 7.476 (7.350-7.450) Arterial Blood Partial Pressure CO2 31.7 mmHg (35.0-45.0) L Arterial Blood Partial Pressure O2 96.7 mmHg (75.0-100.0) Arterial Blood HCO3 22.9 mmol/L (22.0-26.0) Arterial Blood Oxygen Saturation 96.7 % (95-100) Arterial Blood Base Excess -0.2 (-2-2) Freddy Test Positive Current Medications Medications (Trade) Dose Ordered Sig/Aleksander Route PRN Reason Start Time Stop Time Status Last Admin Dose Admin Acetaminophen (Tylenol) 650 mg Q4H PRN NG Temp >100.5 09/10/20 23:15 10/10/20 23:14 09/17/20 09:48 Al Hydroxide/Mg Hydroxide (Mylanta) 30 ml Q4H PRN NG Constipation 09/11/20 00:15 10/10/20 23:14 Albuterol/ Ipratropium (Albuterol/ Ipratropium) 3 ml Q4H PRN HHN Shortness of Breath 09/15/20 16:15 09/20/20 16:14 09/16/20 13:16 Ascorbic Acid (Vitamin C) 250 mg DAILY ORAL 09/18/20 09:00 10/18/20 08:59 09/18/20 08:32 Finasteride (Proscar) 5 mg DAILY ORAL 09/13/20 09:00 12/12/20 08:59 09/18/20 08:32 Multivitamins (Multivitamins) 1 tab DAILY ORAL 09/18/20 09:00 10/18/20 08:59 09/18/20 08:32 Ondansetron HCl (Zofran) 4 mg Q6H PRN IVP Nausea & Vomiting 09/10/20 23:15 10/10/20 23:14 Pantoprazole (Protonix) 40 mg DAILY IVP 09/11/20 09:00 10/11/20 08:59 09/18/20 08:32 Piperacillin Sod/ Tazobactam Sod 3.375 gm/Sodium Chloride 110 ml @ 27.5 mls/hr Q8H IVPB 09/16/20 14:00 09/23/20 13:59 09/18/20 05:58 Potassium Chloride 10 meq/ Dextrose/Sodium Chloride 1,005 ml @ 50 mls/hr Q20H6M IV 09/15/20 21:00 10/15/20 20:59 09/18/20 08:36 Tamsulosin HCl (Flomax) 0.4 mg BEDTIME ORAL 09/12/20 21:00 10/12/20 20:59 09/17/20 20:29 Valproic Acid (Depakene) 1,000 mg BEDTIME NG 09/16/20 21:00 10/31/20 20:59 09/17/20 20:38 Vancomycin HCl (Vanco pharmacy to dose) 1 ea DAILY PRN MISC Per rx protocol 09/16/20 08:45 10/16/20 08:44 Vancomycin HCl 1 gm/Sodium Chloride 275 ml @ 184 mls/hr Q12H IVPB 09/17/20 23:00 09/22/20 22:59 09/18/20 00:01 Zinc Sulfate (Zinc Sulfate) 220 mg DAILY ORAL 09/18/20 09:00 09/28/20 08:59 09/18/20 08:33 Martha Collins MD Sep 18, 2020 12:09
--- NOTE | 2020-09-18 13:00 | NUR ---
NURSE NOTES: Patient stable at this time. No s/sx of pain or distress. BM at this time. Placed on mattress.
--- NOTE | 2020-09-18 14:25 | Diagnostic Imaging Report ---
Indication: Shortness of breath Technique: One view of the chest Comparison: 09/17/2020 Findings: There appears to been interval reexpansion of the right lower lobe. There is considerable infiltrate or edema within both lower lobes. There is more generalized interstitial congestion again noted. The heart is enlarged. There is a nasogastric tube. Impression: Interval improvement of previously demonstrated right lower lobe atelectasis Bilateral basilar infiltrates versus edema, generalized mild interstitial congestion again noted
--- NOTE | 2020-09-18 16:08 | NUR ---
CASE MANAGEMENT:REVIEW SI;SEPSIS. ENCEPHALOPATHY. AC RESPIRATORY FAILURE. 98.6 85 31 105/58 98% VENTURI MASK FIO2 100% WBC 16.7 H/H 9.9/28.2 BUN 22 CA 7.7 ALB 1.6 IS;VANCOMYCIN IV Q12 ZOSYN IV Q8 KCL/D5/NS @ 50 ML/HR PROTONIX IV QD DEPAKENE NG QD ICU STATUS [facility]
--- NOTE | 2020-09-18 16:25 | Surgery Progress Note ---
Surgery Progress Note Subjective Additional Comments no acute events comfortable lab noted urine clearing Objective Last 24 Hour Vital Signs Date Time Temp Pulse Resp B/P (MAP) Pulse Ox O2 Delivery O2 Flow Rate FiO2 09/18/20 16:00 Venturi Mask 15.0 Venturi Mask 15.0 Venturi Mask 15.0 09/18/20 16:00 15.0 09/18/20 15:00 73 25 108/68 (81) 99 09/18/20 14:00 71 25 110/66 (81) 99 09/18/20 13:00 98.6 78 31 107/59 (75) 98 09/18/20 12:00 15.0 09/18/20 12:00 Venturi Mask 15.0 Venturi Mask 15.0 Venturi Mask 15.0 09/18/20 12:00 68 31 107/59 (75) 100 09/18/20 12:00 76 09/18/20 11:00 80 27 107/62 (77) 100 09/18/20 10:00 75 21 108/85 (93) 100 09/18/20 09:00 78 27 109/64 (79) 100 09/18/20 08:00 Non-Rebreather 15.0 Non-Rebreather 15.0 Non-Rebreather 15.0 09/18/20 08:00 98.2 09/18/20 08:00 79 09/18/20 08:00 73 21 105/58 (74) 100 09/18/20 08:00 15.0 09/18/20 07:00 77 21 110/67 (81) 100 09/18/20 06:55 100 Non-Rebreather 15.0 100 09/18/20 06:00 79 23 108/58 (75) 100 09/18/20 05:00 84 27 106/68 (81) 100 09/18/20 04:00 15.0 09/18/20 04:00 98.4 85 23 111/66 (81) 99 09/18/20 04:00 Non-Rebreather 15.0 Non-Rebreather 15.0 Non-Rebreather 15.0 09/18/20 03:12 85 09/18/20 03:00 84 24 109/64 (79) 98 09/18/20 02:00 85 29 107/57 (74) 99 09/18/20 01:00 83 25 114/69 (84) 100 09/18/20 00:00 98.4 82 30 107/59 (75) 100 09/18/20 00:00 15.0 09/18/20 00:00 Non-Rebreather 15.0 Non-Rebreather 15.0 Non-Rebreather 15.0 09/17/20 23:00 82 29 124/67 (86) 100 09/17/20 22:00 88 28 108/63 (78) 100 09/17/20 21:59 100 Non-Rebreather 15.0 100 09/17/20 21:00 89 25 133/69 (90) 100 09/17/20 20:00 Non-Rebreather 15.0 09/17/20 20:00 85 09/17/20 20:00 98.2 85 27 122/75 (91) 100 09/17/20 19:00 82 25 112/69 (83) 100 09/17/20 18:00 74 24 106/61 (76) 100 09/17/20 17:00 Non-Rebreather 15.0 09/17/20 17:00 72 22 104/65 (78) 99 09/17/20 16:34 15.0 09/17/20 16:34 97.8 92 14 93/57 (69) 97 09/17/20 16:34 71 I&O Intake and Output 09/17/20 09/18/20 19:00 07:00 Intake Total 700 ml 1742.5 ml Output Total 575 ml 425 ml Balance 125 ml 1317.5 ml Free Water 130 ml IV Total 150 ml 1012.5 ml Tube Feeding 550 ml 600 ml Output Urine Total 575 ml 425 ml # Bowel Movements 1 2 Dressing: saturated Cardiovascular: RSR Respiratory: decreased breath sounds Abdomen: non-tender, present bowel sounds Extremities: edema, no cyanosis Laboratory Tests Test 09/17/20 21:30 09/18/20 03:45 09/18/20 08:25 Vancomycin Level Trough 11.4 ug/mL (5.0-12.0) White Blood Count 16.7 K/UL (4.8-10.8) H Red Blood Count 3.46 M/UL (4.70-6.10) L Hemoglobin 9.9 G/DL (14.2-18.0) L Hematocrit 28.2 % (42.0-52.0) L Mean Corpuscular Volume 82 FL (80-99) Mean Corpuscular Hemoglobin 28.6 PG (27.0-31.0) Mean Corpuscular Hemoglobin Concent 35.1 G/DL (32.0-36.0) Red Cell Distribution Width 14.9 % (11.6-14.8) H Platelet Count 188 K/UL (150-450) Mean Platelet Volume 8.7 FL (6.5-10.1) Neutrophils (%) (Auto) % (45.0-75.0) Lymphocytes (%) (Auto) % (20.0-45.0) Monocytes (%) (Auto) % (1.0-10.0) Eosinophils (%) (Auto) % (0.0-3.0) Basophils (%) (Auto) % (0.0-2.0) Differential Total Cells Counted 100 Neutrophils % (Manual) 86 % (45-75) H Lymphocytes % (Manual) 5 % (20-45) L Monocytes % (Manual) 8 % (1-10) Eosinophils % (Manual) 0 % (0-3) Basophils % (Manual) 0 % (0-2) Band Neutrophils 1 % (0-8) Platelet Estimate Adequate Platelet Morphology Normal Hypochromasia 1+ Anisocytosis 1+ Sodium Level 143 MMOL/L (136-145) Potassium Level 3.7 MMOL/L (3.5-5.1) Chloride Level 110 MMOL/L (98-107) H Carbon Dioxide Level 25 MMOL/L (21-32) Blood Urea Nitrogen 22 mg/dL (7-18) H Creatinine 1.0 MG/DL (0.55-1.30) Estimat Glomerular Filtration Rate > 60 mL/min (>60) Glucose Level 89 MG/DL (74-106) Calcium Level 7.7 MG/DL (8.5-10.1) L Total Bilirubin 0.4 MG/DL (0.2-1.0) Aspartate Amino Transf (AST/SGOT) 33 U/L (15-37) Alanine Aminotransferase (ALT/SGPT) 27 U/L (12-78) Alkaline Phosphatase 59 U/L (46-116) Total Protein 5.6 G/DL (6.4-8.2) L Albumin 1.6 G/DL (3.4-5.0) L Globulin 4.0 g/dL Albumin/Globulin Ratio 0.4 (1.0-2.7) L Arterial Blood pH 7.476 (7.350-7.450) Arterial Blood Partial Pressure CO2 31.7 mmHg (35.0-45.0) L Arterial Blood Partial Pressure O2 96.7 mmHg (75.0-100.0) Arterial Blood HCO3 22.9 mmol/L (22.0-26.0) Arterial Blood Oxygen Saturation 96.7 % (95-100) Arterial Blood Base Excess -0.2 (-2-2) Freddy Test Positive Plan Problems: (1) Fever Assessment & Plan: maybe developing pneumonia cont abx pulm input thank you (2) Decubitus skin ulcer Assessment & Plan: Patient identified on admission to have multiple scabs on the left arm. mild open scabs with eschar. no drainage. no significant cellulitis. bruising no bilateral extremities noted. no signs of abuse. likely from agitation Sacral coccygeal noted to have a DTI 4.3X2.5CM. which is dark purple . RECOMMEND-CLEAN WITH SALINE, PAT DRY AND APPLY CALAZINE. COVER WITH OPTIFOAM DRESSING. REPLACE EVERY 3 DAYS OR NEEDED LEFT ISCHIUM- STAGE I PRESSURE ULCER MEASURES 4.5X1.7CM. NON-BLANCHABLE ERYTHEMA. RECOMMEND- APPLY CALAZINE AND COVER WITH OPTIFOAM DRESSING. REPLACE EVERY 7 DAYS. Turn q2h off load pressure with pillow off load heels nutritional optimization [employer] eval will follow with recs thank you (3) Malnutrition Assessment & Plan: Mr. Roman is a 70 year old male BIBA to ED of [facility] on 09/10/2020 around 14:00 due to fever. He was found to be hypotensive 91/55 (67), Temp: 100.0, leukocytosis 20.8k and subsequently transferred to ICU for septic shock. The blood culture is reportedly positive for gram positive cocci. NG tube was placed, KUB confirmed the placement to day. Pt is clinically stable with leukocytosis 20.1, improved BUN and creatine, stable hemodynamic without vasopressor. Findings: Mr. Roman is disoriented. He does ot follow commands at this time. Oral cavity is noted to be dried blood concretion likely from NG trauma. No active bleeding site is seen. Due to his level f alertness, already NG tube is in placed, PO trial was not done at this time. Transferred out ICU last night. He is non on tele. Issues: multiple wounds, s.p balaji/nasal/pharyngeal bleeding with blood culture Gram positive cocci leukocytosis trending down from 20k-20k-16k BUN/Creatine trending down from 93/1.9-79/1.3-54/1.1 Temp: 98.1~98.7, Pulse: 62~72, BP: 105/67~120/48, SPO2 98~100% on 2 liter S: Oral cavity is better condition comparison to yesterday. The mucosa is severely erythema without active bleeding. Limited level of alertness for direct therapy. NG in placed O: 1. Laryngeal palpation to trigger spontaneous cough and swallow: Pt triggered cough with laryngeal palpation. Approximately 5~10 seconds after coughing, he triggered swallow. based on this observation, he presents with copious secretion in pharynx and larynx. He continued to have poor secretion management at laryngeal level at this time. NO PO trial was given due to poor secretion at the level of air way with low level of alertness. A: 1. Probable aspiration of his own secretion with poor ability to cough and swallow 2. Dysphagia P: 1. NPO for now 2. Observe his secretion, and level of alertness for PO readiness. DAILY ESTIMATED NEEDS: Needs based on Wound, underweight/ 55kg 30-35 kcals/kg 2911-8921 total kcals 1.25-2 g protein/kg 69-110 g total protein 25-30 mL/kg 8940-3717 total fluid mLs NUTRITION DIAGNOSIS: Increased kcal/prot needs R/T wound healing and underweight status as evidenced by pt admitted w/ wounds including DTI 2 coccyx and stage 1 @ lt ischium, pt @ 73% IBW w/ low BMI per guidelines, s/p NGT insertion, on NGT feeds. CURRENT TF:Jevity 1.2 @ 50ml/hr x 24 hrs ENTERAL NUTRITION RECOMMENDATIONS: Jevity 1.2 @ 60ml/hr x 24 hrs to provide 1440ml, 1728kcal, 80g prot, 1160ml free water * As medically appropriate, increase goal rate to 60ml/hr x 24 hrs to meet 100% est kcal/prot needs * HOB over 30 degrees/ without IVF, H2O flush of 100ml q 8hrs ADDITIONAL RECOMMENDATIONS: * Calibrated daily bedscale wt Per SNF: HT=70" * Wound healing: TF rec @ goal will provide 100% RDI add Vit C 250mg QD, ZnSO4 220mg QD x 10days, Davidson BID via NGT * Monitor BGs, need for NISS w/ TF * Monitor lytes, replete as needed- high risk for refeeding syndrome -> check f/up phos and mag (4) Severe sepsis (5) Open upper arm wound (6) Hematuria Assessment & Plan: as per urology Aubrey Gutierrez Sep 18, 2020 16:25
--- NOTE | 2020-09-18 17:00 | NUR ---
NURSE NOTES: Patient stable at this time. No s/sx of pain or distress. Patient very restless and moves around a lot. Pulled off blanket, pillows and gowns. Restraints still medically necessary at this time.
--- NOTE | 2020-09-18 19:00 | NUR ---
NURSE NOTES: Received patient and report from ARTEMIO Tsang. Patient is observed resting in bed and noted to be alert, disoriented and unable to follow commands at this time. Pt speech noted to be inappropriate and garbled but able to understand speech with some difficulty. No pain noted upon assessment. Pt is currently on Venturi [id number]% with an O2 saturation of 100% noted. Pt noted to be SOB intermittently and have difficulty clearing secretions but remains free from s/sx of acute respiratory distress at this time. Bilateral lower lobe breath sounds noted to be diminished upon auscultation with rhonchi noted in bilateral upper lobes. Pt noted to be SR on tele monitor with a HR of 67. L FA 22g, R FA 20g IV catheters noted which remains asymptomatic, intact and patent. D5 1/2 NS+10kcl currently infusing at 50mL/hr as ordered. VS obtained and noted to be stable. Hyperactive bowel sounds noted in all four quadrants; abdomen remains round and soft. L nare NG Tube noted which remains intact and secured. Jevity 1.2 continues to infuse at 50mL/hr with no residual noted. Rae catheter noted, draining dark sky urine to gravity. Diagnostics reviewed at bedside. Skin alterations noted. Pressure injuries noted under elastic band from oxygen mask at start of shift. Wound care provided and foam tape acquired from RT in order to prevent further breakdown. Edema and ecchymosis noted on bilateral upper extremities. Fall, Aspiration and Skin precautions observed. Pt repositioned for comfort and safety. Pt remains resting in bed; Bed remains in the lowest position with the safety wheels engaged, call light within reach, side rails up x3 and bed alarm activated. Will continue plan of care. Will continue to monitor.
--- NOTE | 2020-09-18 19:21 | NUR ---
NURSE HAND-OFF REPORT: Latest Vital Signs: Temperature 99.6 , Pulse 69 , B/P 97 /58 , Respiratory Rate 24 , O2 SAT 98 , Venturi Mask, O2 Flow Rate 15.0 . Vital Sign Comment: STABLE EKG Rhythm: Sinus Rhythm Rhythm change?: N MD Notified?: MD Response: Latest Schultz Fall Score: 70 Fall Risk: High Risk Safety Measures: Call light Within Reach, Bed Alarm Zone 1, Side Rails Side Rails x3, Bed position Low and Locked. Fall Precautions: Yellow Socks Door Sign Patient Fall Education Report given to Chris ULLOA. Plan of care endorsed.
[2020-09-18] MEDS: Tamsulosin 0.4mg cap ORAL SCH (20:27)
[2020-09-18] MEDS: Valproic Acid 250mg/5ml Liquid NG SCH (20:28)
--- NOTE | 2020-09-18 21:00 | NUR ---
NURSE NOTES: Pt provided with a bed bath, oral care and linen change. Bedside assessment performed, assessed pt for pain with a FLACC score of 0 noted. Pt remains free from s/sx of acute cardiopulmonary distress at this time. Assessed pt for restraint removal criteria, pt continue to attempt to pull medical devices and diversional activities remain unsuccessful. ROM exercises performed per pt tolerance and CMS remains intact. Pt repositioned for safety and comfort. Fall, Aspiration and Skin precautions observed. Pt remains resting in bed; Bed remains in the lowest position with the safety wheels engaged, call light within reach, side rails up x3 and bed alarm activated. Will continue plan of care. Will continue to monitor.
[2020-09-18] MEDS: Acetaminophen 650mg/20.3ml NG PRN (21:33)
--- NOTE | 2020-09-18 23:00 | NUR ---
NURSE NOTES: Pt provided with a partial bed bath, oral care and suctioning for excess secretions. Bedside assessment performed, assessed pt for pain with a FLACC score of 0 noted. Pt remains free from s/sx of acute cardiopulmonary distress at this time. Diversional activities remain unsuccessful and pt remains disoriented. Prior PRN Tylenol administered per order without incident for FLACC scale 2. No adverse effects noted from previous administration. Pt repositioned for safety and comfort. Fall, Aspiration and Skin precautions observed. Pt remains resting in bed; Bed remains in the lowest position with the safety wheels engaged, call light within reach, side rails up x3 and bed alarm activated. Will continue plan of care. Will continue to monitor.
[2020-09-19] VITALS (13 sets, daily range): BP systolic 91–117; BP diastolic 48–71
--- NOTE | 2020-09-19 00:53 | Cardiology Progress Note ---
Subjective DATE OF SERVICE: Sep 18, 2020 Remains congested today, with SOB on high flow mask. Monitor: sinus rhythm; no significant bradycardia. CXR (09/17) persisting left consolidation with new right atelectasis/infiltr ABG: (09/18/20) 7.48/32/97 Objective Last 24 Hour Vital Signs Date Time Temp Pulse Resp B/P (MAP) Pulse Ox O2 Delivery O2 Flow Rate FiO2 09/19/20 00:00 15.0 09/19/20 00:00 Venturi Mask 15.0 Venturi Mask 15.0 Venturi Mask 15.0 09/19/20 00:00 98.6 72 23 107/61 (76) 98 09/18/20 23:21 71 09/18/20 23:00 72 22 95/58 (70) 98 09/18/20 22:00 70 21 102/60 (74) 100 09/18/20 21:00 68 24 99/53 (68) 100 09/18/20 20:00 100.4 69 26 97/66 (76) 98 09/18/20 20:00 Venturi Mask 15.0 Venturi Mask 15.0 Venturi Mask 15.0 09/18/20 20:00 15.0 09/18/20 19:27 98 Venturi Mask 15.0 55 09/18/20 19:20 72 09/18/20 19:00 69 24 97/58 (71) 98 09/18/20 18:00 70 21 127/79 (95) 95 09/18/20 17:00 71 29 103/65 (78) 94 09/18/20 16:00 72 09/18/20 16:00 99.6 72 21 114/70 (85) 99 09/18/20 16:00 Venturi Mask 15.0 Venturi Mask 15.0 Venturi Mask 15.0 09/18/20 16:00 15.0 09/18/20 15:00 73 25 108/68 (81) 99 09/18/20 14:00 71 25 110/66 (81) 99 09/18/20 13:00 98.6 78 31 107/59 (75) 98 09/18/20 12:00 15.0 09/18/20 12:00 Venturi Mask 15.0 Venturi Mask 15.0 Venturi Mask 15.0 09/18/20 12:00 68 31 107/59 (75) 100 09/18/20 12:00 76 09/18/20 11:00 80 27 107/62 (77) 100 09/18/20 10:00 75 21 108/85 (93) 100 09/18/20 09:00 78 27 109/64 (79) 100 09/18/20 08:00 Non-Rebreather 15.0 Non-Rebreather 15.0 Non-Rebreather 15.0 09/18/20 08:00 98.2 09/18/20 08:00 79 09/18/20 08:00 73 21 105/58 (74) 100 09/18/20 08:00 15.0 09/18/20 07:00 77 21 110/67 (81) 100 09/18/20 06:55 100 Non-Rebreather 15.0 100 09/18/20 06:00 79 23 108/58 (75) 100 09/18/20 05:00 84 27 106/68 (81) 100 09/18/20 04:00 15.0 09/18/20 04:00 98.4 85 23 111/66 (81) 99 09/18/20 04:00 Non-Rebreather 15.0 Non-Rebreather 15.0 Non-Rebreather 15.0 09/18/20 03:12 85 09/18/20 03:00 84 24 109/64 (79) 98 09/18/20 02:00 85 29 107/57 (74) 99 09/18/20 01:00 83 25 114/69 (84) 100 ROS: no change from my evaluation of 09/10/20. HEENT: normal ENT inspection RHYTHM: NSR, ST LUNGS: bilat. rhonchi and rales CARDIAC: normal rate, regular rhythm, normal S1 and S2 ABDOMEN: normal bowel sounds, soft, other - sacral decub EXTREMITIES: No edema Laboratory Tests Test 09/18/20 03:45 09/18/20 08:25 White Blood Count 16.7 K/UL (4.8-10.8) H Red Blood Count 3.46 M/UL (4.70-6.10) L Hemoglobin 9.9 G/DL (14.2-18.0) L Hematocrit 28.2 % (42.0-52.0) L Mean Corpuscular Volume 82 FL (80-99) Mean Corpuscular Hemoglobin 28.6 PG (27.0-31.0) Mean Corpuscular Hemoglobin Concent 35.1 G/DL (32.0-36.0) Red Cell Distribution Width 14.9 % (11.6-14.8) H Platelet Count 188 K/UL (150-450) Mean Platelet Volume 8.7 FL (6.5-10.1) Neutrophils (%) (Auto) % (45.0-75.0) Lymphocytes (%) (Auto) % (20.0-45.0) Monocytes (%) (Auto) % (1.0-10.0) Eosinophils (%) (Auto) % (0.0-3.0) Basophils (%) (Auto) % (0.0-2.0) Differential Total Cells Counted 100 Neutrophils % (Manual) 86 % (45-75) H Lymphocytes % (Manual) 5 % (20-45) L Monocytes % (Manual) 8 % (1-10) Eosinophils % (Manual) 0 % (0-3) Basophils % (Manual) 0 % (0-2) Band Neutrophils 1 % (0-8) Platelet Estimate Adequate Platelet Morphology Normal Hypochromasia 1+ Anisocytosis 1+ Sodium Level 143 MMOL/L (136-145) Potassium Level 3.7 MMOL/L (3.5-5.1) Chloride Level 110 MMOL/L (98-107) H Carbon Dioxide Level 25 MMOL/L (21-32) Blood Urea Nitrogen 22 mg/dL (7-18) H Creatinine 1.0 MG/DL (0.55-1.30) Estimat Glomerular Filtration Rate > 60 mL/min (>60) Glucose Level 89 MG/DL (74-106) Calcium Level 7.7 MG/DL (8.5-10.1) L Total Bilirubin 0.4 MG/DL (0.2-1.0) Aspartate Amino Transf (AST/SGOT) 33 U/L (15-37) Alanine Aminotransferase (ALT/SGPT) 27 U/L (12-78) Alkaline Phosphatase 59 U/L (46-116) Total Protein 5.6 G/DL (6.4-8.2) L Albumin 1.6 G/DL (3.4-5.0) L Globulin 4.0 g/dL Albumin/Globulin Ratio 0.4 (1.0-2.7) L Arterial Blood pH 7.476 (7.350-7.450) Arterial Blood Partial Pressure CO2 31.7 mmHg (35.0-45.0) L Arterial Blood Partial Pressure O2 96.7 mmHg (75.0-100.0) Arterial Blood HCO3 22.9 mmol/L (22.0-26.0) Arterial Blood Oxygen Saturation 96.7 % (95-100) Arterial Blood Base Excess -0.2 (-2-2) Freddy Test Positive Assessment/Plan Assessment/Plan Sepsis Leukocytosis Probable new aspiration PNA Recovering shock Hypovolemia Dehydration/hypernatremia corrected. Likely congestion due to aspiration Acute myocardial ischemia Acute renal failure HC assoc PNA UTI CVA/dementia Sinus bradycardia, asymptomatic Acute diastolic CHF Remains CRITICAL & GUARDED DC IVF; diuresis trial. Antimicrobials per ID; Vanco was added. Replace lytes as needed; follow up WBC. DVT prophyl Cardiac monitoring Hypotonic IVF hydration Madi Rios MD Sep 19, 2020 00:53
--- NOTE | 2020-09-19 01:00 | NUR ---
NURSE NOTES: Bedside assessment performed, assessed pt for pain with a FLACC score of 0 noted. Pt remains free from s/sx of acute cardiopulmonary distress at this time. Respiratory status remains stable at this time and physical status remains consistent with previous physical assessment. Diversional activities remain unsuccessful and pt remains disoriented. Bilateral soft wrist restraints remain in place for pt safety. Pt repositioned for safety and comfort. Fall, Aspiration and Skin precautions observed. Pt remains resting in bed; Bed remains in the lowest position with the safety wheels engaged, call light within reach, side rails up x3 and bed alarm activated. Will continue plan of care. Will continue to monitor.
--- NOTE | 2020-09-19 03:00 | NUR ---
NURSE NOTES: Bedside assessment performed, assessed pt for pain with a FLACC score of 0 noted. Physicial status remains consistent with most recent physical assessment. Pt repositioned for safety and comfort. Fall, Aspiration and Skin precautions observed. Pt remains resting in bed; Bed remains in the lowest position with the safety wheels engaged, call light within reach, side rails up x3 and bed alarm activated. Will continue plan of care. Will continue to monitor.
--- NOTE | 2020-09-19 05:00 | NUR ---
NURSE NOTES: Pt provided with a bed bath, oral care and linen change. Profuse, brown, liquid diarrhea . CDIff remains pending, isolation precautions observed. Bedside assessment performed, assessed pt for pain with a FLACC score of 0 noted. Pt remains free from s/sx of acute cardiopulmonary distress at this time. ROM exercises performed per pt tolerance. Scheduled labs noted and drawn without incident, samples sent to laboratory for analysis. Will await results. Pt tolerated care well. Pt noted to be pulling at medical devices including Rae catheter posing safety risk to self; bilateral soft wrist restraints in place for pt safety. CMS remains intact and ROM exercises performed per pt tolerance. Pt repositioned for safety and comfort. Fall, Aspiration and Skin precautions observed. Pt remains resting in bed; Bed remains in the lowest position with the safety wheels engaged, call light within reach, side rails up x3 and bed alarm activated. Will continue plan of care. Will continue to monitor.
[2020-09-19] MEDS: Piperacillin/Tazobactam 3.375 GM in NS 110 ML IVPB SCH (05:37)
[2020-09-19 05:54] LABS: BASOPHILS % (AUTO) 0.3 % (0.0-2.0); EOSINOPHILS % (AUTO) 1.2 % (0.0-3.0); HEMATOCRIT 25.4 % (42.0-52.0); LYMPHOCYTES % (AUTO) 6.8 % (20.0-45.0); MEAN CORPUSCULAR VOLUME 82 FL (80-99); NEUTROPHILS % (AUTO) 84.7 % (45.0-75.0); PLATELET COUNT 180 K/UL (150-450); RED BLOOD COUNT 3.12 M/UL (4.70-6.10); RED CELL DISTRIBUTION WIDTH 15.6 % (11.6-14.8); WHITE BLOOD COUNT 11.3 K/UL (4.8-10.8)
[2020-09-19 06:59] LABS: ALANINE AMINOTRANSFERASE 38 U/L (12-78); ALBUMIN 1.6 G/DL (3.4-5.0); ALBUMIN/GLOBULIN RATIO 0.4 (1.0-2.7); ALKALINE PHOSPHATASE 59 U/L (46-116); ANION GAP 7 mmol/L (5-15); ASPARTATE AMINO TRANSFERASE 42 U/L (15-37); BILIRUBIN,TOTAL 0.4 MG/DL (0.2-1.0); BLOOD UREA NITROGEN 23 mg/dL (7-18); CALCIUM 7.4 MG/DL (8.5-10.1); CARBON DIOXIDE 27 MMOL/L (21-32); CHLORIDE 111 MMOL/L (98-107); CREATININE 1.1 MG/DL (0.55-1.30); POTASSIUM 3.6 MMOL/L (3.5-5.1); SODIUM 145 MMOL/L (136-145)
--- NOTE | 2020-09-19 07:10 | NUR ---
NURSE HAND-OFF REPORT: Latest Vital Signs: Temperature 98.8 , Pulse 69 , B/P 91 /48 , Respiratory Rate 25 , O2 SAT 97 , Venturi Mask, O2 Flow Rate 15.0 . Vital Sign Comment: VS remained stable for duration of shift EKG Rhythm: Sinus Rhythm Rhythm change?: N MD Notified?: N Response: N/A Latest Schultz Fall Score: 70 Fall Risk: High Risk Safety Measures: Call light Within Reach, Bed Alarm Zone 2, Side Rails Side Rails x3, Bed position Low and Locked. Fall Precautions: Yellow Socks Door Sign Patient Fall Education Report given to Ofe Leong RN. Endorsed plan of care.
--- NOTE | 2020-09-19 07:53 | General Progress Note ---
Subjective ROS Limited/Unobtainable: Yes Constitutional: Reports: malaise, weakness HEENT: Reports: no symptoms Cardiovascular: Reports: no symptoms Respiratory: Reports: cough, shortness of breath, sputum Gastrointestinal/Abdominal: Reports: difficulty swallowing Genitourinary: Reports: no symptoms Neurologic/Psychiatric: Reports: pre-existing deficit Endocrine: Reports: no symptoms Hematologic/Lymphatic: Reports: anemia Allergies: Coded Allergies: No Known Allergies (Unverified , 09/10/20) All Systems: reviewed and negative except above Subjective no events. of bipap/nrb. on venti mask. tolerating feeds. no fevers or chills. no sob. confused. pulling at andrade Objective Last 24 Hour Vital Signs Date Time Temp Pulse Resp B/P (MAP) Pulse Ox O2 Delivery O2 Flow Rate FiO2 09/19/20 07:00 69 25 91/48 (62) 97 09/19/20 06:00 70 23 98/57 (71) 95 09/19/20 05:00 69 23 110/51 (70) 98 09/19/20 04:00 Venturi Mask 15.0 Venturi Mask 15.0 Venturi Mask 15.0 09/19/20 04:00 98.8 66 25 103/62 (76) 98 09/19/20 04:00 15.0 09/19/20 03:44 67 09/19/20 03:00 78 29 100/58 (72) 97 09/19/20 02:00 67 21 95/71 (79) 97 09/19/20 01:00 75 24 96/57 (70) 97 09/19/20 00:00 15.0 09/19/20 00:00 Venturi Mask 15.0 Venturi Mask 15.0 Venturi Mask 15.0 09/19/20 00:00 98.6 72 23 107/61 (76) 98 09/18/20 23:21 71 09/18/20 23:00 72 22 95/58 (70) 98 09/18/20 22:00 70 21 102/60 (74) 100 09/18/20 21:00 68 24 99/53 (68) 100 09/18/20 20:00 100.4 69 26 97/66 (76) 98 09/18/20 20:00 Venturi Mask 15.0 Venturi Mask 15.0 Venturi Mask 15.0 09/18/20 20:00 15.0 09/18/20 19:27 98 Venturi Mask 15.0 55 09/18/20 19:20 72 09/18/20 19:00 69 24 97/58 (71) 98 09/18/20 18:00 70 21 127/79 (95) 95 09/18/20 17:00 71 29 103/65 (78) 94 09/18/20 16:00 72 09/18/20 16:00 99.6 72 21 114/70 (85) 99 09/18/20 16:00 Venturi Mask 15.0 Venturi Mask 15.0 Venturi Mask 15.0 09/18/20 16:00 15.0 09/18/20 15:00 73 25 108/68 (81) 99 09/18/20 14:00 71 25 110/66 (81) 99 09/18/20 13:00 98.6 78 31 107/59 (75) 98 09/18/20 12:00 15.0 09/18/20 12:00 Venturi Mask 15.0 Venturi Mask 15.0 Venturi Mask 15.0 09/18/20 12:00 68 31 107/59 (75) 100 09/18/20 12:00 76 09/18/20 11:00 80 27 107/62 (77) 100 09/18/20 10:00 75 21 108/85 (93) 100 09/18/20 09:00 78 27 109/64 (79) 100 09/18/20 08:00 Non-Rebreather 15.0 Non-Rebreather 15.0 Non-Rebreather 15.0 09/18/20 08:00 98.2 09/18/20 08:00 79 09/18/20 08:00 73 21 105/58 (74) 100 09/18/20 08:00 15.0 Intake and Output 09/18/20 09/19/20 19:00 07:00 Intake Total 1685.0 ml 1630.0 ml Output Total 570 ml 1025 ml Balance 1115.0 ml 605.0 ml Free Water 100 ml 330 ml IV Total 985.0 ml 700.0 ml Tube Feeding 600 ml 600 ml Output Urine Total 570 ml 1025 ml # Bowel Movements 1 3 Laboratory Tests 09/18/20 08:25: Arterial Blood pH 7.476H, Arterial Blood Partial Pressure CO2 31.7L, Arterial Blood Partial Pressure O2 96.7, Arterial Blood HCO3 22.9, Arterial Blood Oxygen Saturation 96.7, Arterial Blood Base Excess -0.2, Freddy Test Positive 09/19/20 04:00: White Blood Count 11.3H, Red Blood Count 3.12L, Hemoglobin 9.0L, Hematocrit 25.4L, Mean Corpuscular Volume 82, Mean Corpuscular Hemoglobin 28.8, Mean Corpuscular Hemoglobin Concent 35.3, Red Cell Distribution Width 15.6H, Platelet Count 180, Mean Platelet Volume 8.6, Neutrophils (%) (Auto) 84.7H, Lymphocytes (%) (Auto) 6.8L, Monocytes (%) (Auto) 7.0, Eosinophils (%) (Auto) 1.2, Basophils (%) (Auto) 0.3, Sodium Level 145, Potassium Level 3.6, Chloride Level 111H, Carbon Dioxide Level 27, Anion Gap 7, Blood Urea Nitrogen 23H, Creatinine 1.1, Estimat Glomerular Filtration Rate > 60, Glucose Level 90, Calcium Level 7.4L, Total Bilirubin 0.4, Aspartate Amino Transf (AST/SGOT) 42H, Alanine Aminot ransferase (ALT/SGPT) 38, Alkaline Phosphatase 59, Pro-B-Type Natriuretic Peptide 1526H, Total Protein 5.3L, Albumin 1.6L, Globulin 3.7, Albumin/Globulin Ratio 0.4L Height (Feet): 5 Height (Inches): 7.00 Weight (Pounds): 121 General Appearance: WD/WN, confused EENT: normal ENT inspection Neck: normal alignment, supple Cardiovascular: normal rate, regular rhythm Respiratory/Chest: rhonchi - bilaterally Abdomen: normal bowel sounds, non tender, soft, no organomegaly Edema: no edema noted Leg (L), no edema noted Leg (R) 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 grossly normal, responsive, disoriented Lymphatic: normal anterior cervical (L), normal anterior cervical (R), normal posterior cervical (L), normal posterior cervical (R) Assessment/Plan Problem List: (1) PNA (pneumonia) ICD Codes: J18.9 - Pneumonia, unspecified organism SNOMED: 680970583 (2) UTI (urinary tract infection) ICD Codes: N39.0 - Urinary tract infection, site not specified SNOMED: 56613901 (3) Fever ICD Codes: R50.9 - Fever, unspecified SNOMED: 644593391 (4) Decubitus skin ulcer ICD Codes: L89.90 - Pressure ulcer of unspecified site, unspecified stage SNOMED: 300870468 (5) Malnutrition ICD Codes: E46 - Unspecified protein-calorie malnutrition SNOMED: 50000227 (6) Severe sepsis ICD Codes: A41.9 - Sepsis, unspecified organism; R65.20 - Severe sepsis without septic shock SNOMED: 63944242 (7) Hematuria ICD Codes: R31.9 - Hematuria, unspecified SNOMED: 38938183 Status: stable Assessment/Plan: iv abx per id follow up cultures scd cdiff neg resp care wean o2 monitor labs swallow eval when more alert. improving Jason Layne MD Sep 19, 2020 07:53
--- NOTE | 2020-09-19 08:15 | NUR ---
AWAKE/DEOSE NOT FOLLOWING SIMPLE COMANDS ENCOURAGED TAKE DEEP BREATH/COUGH NOT FOLLOWING WELL ON 55% V/MASK HOB UP SAT 97-99% PT SEEN BY BOGDAN ESPINOZA TX,ORDERS 0845 CONDITION /VS STABLE TX,D 241-2 BEDSIDE REPORT GIVEN TO MINO KRAMER
--- NOTE | 2020-09-19 08:17 | Urology Progress Note ---
Assessment/Plan Status: stable Assessment/Plan: 1. Gross hematuria. 2. Pyuria and possible UTI. 3. Proteinuria. 4. BPH. 5. Urinary retention. 6. Probable neurogenic bladder. 7. Possible sepsis. monitor clinically maintain andrade hand irrigated and do PRN abx as ordered flomax and proscar added cysto electively voiding trial at some point? f/u on last blood cx Subjective Allergies: Coded Allergies: No Known Allergies (Unverified , 09/10/20) Subjective non-verbal Objective Last 24 Hour Vital Signs Date Time Temp Pulse Resp B/P (MAP) Pulse Ox O2 Delivery O2 Flow Rate FiO2 09/19/20 08:01 98 Venturi Mask 15.0 55 09/19/20 07:00 69 25 91/48 (62) 97 09/19/20 06:00 70 23 98/57 (71) 95 09/19/20 05:00 69 23 110/51 (70) 98 09/19/20 04:00 Venturi Mask 15.0 Venturi Mask 15.0 Venturi Mask 15.0 09/19/20 04:00 98.8 66 25 103/62 (76) 98 09/19/20 04:00 15.0 09/19/20 03:44 67 09/19/20 03:00 78 29 100/58 (72) 97 09/19/20 02:00 67 21 95/71 (79) 97 09/19/20 01:00 75 24 96/57 (70) 97 09/19/20 00:00 15.0 09/19/20 00:00 Venturi Mask 15.0 Venturi Mask 15.0 Venturi Mask 15.0 09/19/20 00:00 98.6 72 23 107/61 (76) 98 09/18/20 23:21 71 09/18/20 23:00 72 22 95/58 (70) 98 09/18/20 22:00 70 21 102/60 (74) 100 09/18/20 21:00 68 24 99/53 (68) 100 09/18/20 20:00 100.4 69 26 97/66 (76) 98 09/18/20 20:00 Venturi Mask 15.0 Venturi Mask 15.0 Venturi Mask 15.0 09/18/20 20:00 15.0 09/18/20 19:27 98 Venturi Mask 15.0 55 09/18/20 19:20 72 09/18/20 19:00 69 24 97/58 (71) 98 09/18/20 18:00 70 21 127/79 (95) 95 09/18/20 17:00 71 29 103/65 (78) 94 09/18/20 16:00 72 09/18/20 16:00 99.6 72 21 114/70 (85) 99 09/18/20 16:00 Venturi Mask 15.0 Venturi Mask 15.0 Venturi Mask 15.0 09/18/20 16:00 15.0 09/18/20 15:00 73 25 108/68 (81) 99 09/18/20 14:00 71 25 110/66 (81) 99 09/18/20 13:00 98.6 78 31 107/59 (75) 98 09/18/20 12:00 15.0 09/18/20 12:00 Venturi Mask 15.0 Venturi Mask 15.0 Venturi Mask 15.0 09/18/20 12:00 68 31 107/59 (75) 100 09/18/20 12:00 76 09/18/20 11:00 80 27 107/62 (77) 100 09/18/20 10:00 75 21 108/85 (93) 100 09/18/20 09:00 78 27 109/64 (79) 100 Intake and Output 09/18/20 09/19/20 19:00 07:00 Intake Total 1685.0 ml 1630.0 ml Output Total 570 ml 1025 ml Balance 1115.0 ml 605.0 ml Free Water 100 ml 330 ml IV Total 985.0 ml 700.0 ml Tube Feeding 600 ml 600 ml Output Urine Total 570 ml 1025 ml # Bowel Movements 1 3 Microbiology Date/Time Source Procedure Growth Status 09/18/20 18:30 Stool Clostridium difficile Toxin Assay - Final Complete 09/18/20 03:50 Sputum Gram Stain - Final Resulted 09/18/20 03:50 Sputum Sputum Culture Pending Resulted 09/17/20 12:58 Blood Blood Culture - Preliminary NO GROWTH AFTER 24 HOURS Resulted 09/10/20 20:05 Urine,Clean Catch Urine Culture - Final NO GROWTH AFTER 48 HOURS Complete 09/10/20 17:15 Rectum VRE Culture - Final Enterococcus Faecalis - Vre Complete Current Medications Medications (Trade) Dose Ordered Sig/Aleksander Route PRN Reason Start Time Stop Time Status Last Admin Dose Admin Acetaminophen (Tylenol) 650 mg Q4H PRN NG Temp >100.5 09/10/20 23:15 10/10/20 23:14 09/18/20 21:33 Al Hydroxide/Mg Hydroxide (Mylanta) 30 ml Q4H PRN NG Constipation 09/11/20 00:15 10/10/20 23:14 Albuterol/ Ipratropium (Albuterol/ Ipratropium) 3 ml Q4H PRN HHN Shortness of Breath 09/15/20 16:15 09/20/20 16:14 09/16/20 13:16 Ascorbic Acid (Vitamin C) 250 mg DAILY ORAL 09/18/20 09:00 10/18/20 08:59 09/18/20 08:32 Finasteride (Proscar) 5 mg DAILY ORAL 09/13/20 09:00 12/12/20 08:59 09/18/20 08:32 Multivitamins (Multivitamins) 1 tab DAILY ORAL 09/18/20 09:00 10/18/20 08:59 09/18/20 08:32 Ondansetron HCl (Zofran) 4 mg Q6H PRN IVP Nausea & Vomiting 09/10/20 23:15 10/10/20 23:14 Pantoprazole (Protonix) 40 mg DAILY IVP 09/11/20 09:00 10/11/20 08:59 09/18/20 08:32 Piperacillin Sod/ Tazobactam Sod 3.375 gm/Sodium Chloride 110 ml @ 27.5 mls/hr Q8H IVPB 09/16/20 14:00 09/23/20 13:59 09/19/20 05:37 Tamsulosin HCl (Flomax) 0.4 mg BEDTIME ORAL 09/12/20 21:00 10/12/20 20:59 09/18/20 20:27 Valproic Acid (Depakene) 1,000 mg BEDTIME NG 09/16/20 21:00 10/31/20 20:59 09/18/20 20:28 Vancomycin HCl (Vanco pharmacy to dose) 1 ea DAILY PRN MISC Per rx protocol 09/16/20 08:45 10/16/20 08:44 Vancomycin HCl 1 gm/Sodium Chloride 275 ml @ 184 mls/hr Q12H IVPB 09/17/20 23:00 09/22/20 22:59 09/18/20 22:09 Zinc Sulfate (Zinc Sulfate) 220 mg DAILY ORAL 09/18/20 09:00 09/28/20 08:59 09/18/20 08:33 Laboratory Tests 09/18/20 08:25: Arterial Blood pH 7.476H, Arterial Blood Partial Pressure CO2 31.7L, Arterial Blood Partial Pressure O2 96.7, Arterial Blood HCO3 22.9, Arterial Blood Oxygen Saturation 96.7, Arterial Blood Base Excess -0.2, Freddy Test Positive 09/19/20 04:00: White Blood Count 11.3H, Red Blood Count 3.12L, Hemoglobin 9.0L, Hematocrit 25.4L, Mean Corpuscular Volume 82, Mean Corpuscular Hemoglobin 28.8, Mean Corpuscular Hemoglobin Concent 35.3, Red Cell Distribution Width 15.6H, Platelet Count 180, Mean Platelet Volume 8.6, Neutrophils (%) (Auto) 84.7H, Lymphocytes (%) (Auto) 6.8L, Monocytes (%) (Auto) 7.0, Eosinophils (%) (Auto) 1.2, Basophils (%) (Auto) 0.3, Sodium Level 145, Potassium Level 3.6, Chloride Level 111H, Carbon Dioxide Level 27, Anion Gap 7, Blood Urea Nitrogen 23H, Creatinine 1.1, Estimat Glomerular Filtration Rate > 60, Glucose Level 90, Calcium Level 7.4L, Total Bilirubin 0.4, Aspartate Amino Transf (AST/SGOT) 42H, Alanine Aminotransferase (ALT/SGPT) 38, Alkaline Phosphatase 59, Pro-B-Type Natriuretic Peptide 1526H, Total Protein 5.3L, Albumin 1.6L, Globulin 3.7, Albumin/Globulin Ratio 0.4L 09/19/20 08:01: Arterial Blood pH 7.488H, Arterial Blood Partial Pressure CO2 31.0L, Arterial Blood Partial Pressure O2 73.6L, Arterial Blood HCO3 23.0, Arterial Blood Oxygen Saturation 94.6L, Arterial Blood Base Excess 0.1, Freddy Test Positive Height (Feet): 5 Height (Inches): 7.00 Weight (Pounds): 121 Objective exam stable urine clearing Bamshad,Levi Pantera MD Sep 19, 2020 08:17
--- NOTE | 2020-09-19 09:32 | General Progress Note ---
Subjective ROS Limited/Unobtainable: Yes Allergies: Coded Allergies: No Known Allergies (Unverified , 09/10/20) Subjective doing poorly back to [facility] lethargic and reduced LOC same congested transferred to ICU Objective Last 24 Hour Vital Signs Date Time Temp Pulse Resp B/P (MAP) Pulse Ox O2 Delivery O2 Flow Rate FiO2 09/19/20 08:01 98 Venturi Mask 15.0 55 09/19/20 08:00 Venturi Mask 15.0 Venturi Mask 15.0 Venturi Mask 15.0 09/19/20 08:00 68 09/19/20 08:00 15.0 09/19/20 08:00 69 25 95/52 (66) 97 09/19/20 07:00 69 25 91/48 (62) 97 09/19/20 06:00 70 23 98/57 (71) 95 09/19/20 05:00 69 23 110/51 (70) 98 09/19/20 04:00 Venturi Mask 15.0 Venturi Mask 15.0 Venturi Mask 15.0 09/19/20 04:00 98.8 66 25 103/62 (76) 98 09/19/20 04:00 15.0 09/19/20 03:44 67 09/19/20 03:00 78 29 100/58 (72) 97 09/19/20 02:00 67 21 95/71 (79) 97 09/19/20 01:00 75 24 96/57 (70) 97 09/19/20 00:08 68 09/19/20 00:00 15.0 09/19/20 00:00 Venturi Mask 15.0 Venturi Mask 15.0 Venturi Mask 15.0 09/19/20 00:00 98.6 72 23 107/61 (76) 98 09/18/20 23:21 71 09/18/20 23:00 72 22 95/58 (70) 98 09/18/20 22:00 70 21 102/60 (74) 100 09/18/20 21:00 68 24 99/53 (68) 100 09/18/20 20:00 100.4 69 26 97/66 (76) 98 09/18/20 20:00 Venturi Mask 15.0 Venturi Mask 15.0 Venturi Mask 15.0 09/18/20 20:00 15.0 09/18/20 19:27 98 Venturi Mask 15.0 55 09/18/20 19:20 72 09/18/20 19:00 69 24 97/58 (71) 98 09/18/20 18:00 70 21 127/79 (95) 95 09/18/20 17:00 71 29 103/65 (78) 94 09/18/20 16:00 72 09/18/20 16:00 99.6 72 21 114/70 (85) 99 09/18/20 16:00 Venturi Mask 15.0 Venturi Mask 15.0 Venturi Mask 15.0 09/18/20 16:00 15.0 09/18/20 15:00 73 25 108/68 (81) 99 09/18/20 14:00 71 25 110/66 (81) 99 09/18/20 13:00 98.6 78 31 107/59 (75) 98 09/18/20 12:00 15.0 09/18/20 12:00 Venturi Mask 15.0 Venturi Mask 15.0 Venturi Mask 15.0 09/18/20 12:00 68 31 107/59 (75) 100 09/18/20 12:00 76 09/18/20 11:00 80 27 107/62 (77) 100 09/18/20 10:00 75 21 108/85 (93) 100 Intake and Output 09/18/20 09/19/20 19:00 07:00 Intake Total 1685.0 ml 1630.0 ml Output Total 570 ml 1025 ml Balance 1115.0 ml 605.0 ml Free Water 100 ml 330 ml IV Total 985.0 ml 700.0 ml Tube Feeding 600 ml 600 ml Output Urine Total 570 ml 1025 ml # Bowel Movements 1 3 Laboratory Tests 09/19/20 04:00: White Blood Count 11.3H, Red Blood Count 3.12L, Hemoglobin 9.0L, Hematocrit 25.4L, Mean Corpuscular Volume 82, Mean Corpuscular Hemoglobin 28.8, Mean Corpuscular Hemoglobin Concent 35.3, Red Cell Distribution Width 15.6H, Platelet Count 180, Mean Platelet Volume 8.6, Neutrophils (%) (Auto) 84.7H, Lymphocytes (%) (Auto) 6.8L, Monocytes (%) (Auto) 7.0, Eosinophils (%) (Auto) 1.2, Basophils (%) (Auto) 0.3, Sodium Level 145, Potassium Level 3.6, Chloride Level 111H, Carbon Dioxide Level 27, Anion Gap 7, Blood Urea Nitrogen 23H, Creatinine 1.1, Estimat Glomerular Filtration Rate > 60, Glucose Level 90, Calcium Level 7.4L, Total Bilirubin 0.4, Aspartate Amino Transf (AST/SGOT) 42H, Alanine Aminotransferase (ALT/SGPT) 38, Alkaline Phosphatase 59, Pro-B-Type Natriuretic Peptide 1526H, Total Protein 5.3L, Albumin 1.6L, Globulin 3.7, Albumin/Globulin Ratio 0.4L 09/19/20 08:01: Arterial Blood pH 7.488H, Arterial Blood Partial Pressure CO2 31.0L, Arterial Blood Partial Pressure O2 73.6L, Arterial Blood HCO3 23.0, Arterial Blood Oxygen Saturation 94.6L, Arterial Blood Base Excess 0.1, Freddy Test Positive Height (Feet): 5 Height (Inches): 7.00 Weight (Pounds): 121 Objective WDWN NAD reduced breath sounds bilaterally with noted rhonchi [id number] without MRG NABS nontender no HSM no CCE nonfocal reduced LOC Assessment/Plan Status: stable Assessment/Plan: IMPRESSION: 1. Acute renal failure. 2. Hypernatremia. 3. Leukocytosis. 4. Possible sepsis. 5. Hypotension. 6. Dementia. 7. Acute on chronic encephalopathy. 8. bcx staph Epi 9. MRSA colonized 10. acute hypoxemic respiratory failure 11. atelectasis/collapse PLAN hydrate- hypotonic fluids noted PT ID noted; care noted follow up on antibiotics renal follow up significant worsening with severe hypoxemia; try to taper continue with ICU may need intubation if worsens negative venous US will likely need GT may need airway medications/laboratory data/nursing notes/ICU care reviewed in detail note reviewed and edited care discussed with RN and RT ICU time spent >40 minutes Patel Villasenor MD Sep 19, 2020 09:32
[2020-09-19] MEDS: Zinc Sulfate 220mg ORAL SCH (09:48)
[2020-09-19] MEDS: Pantoprazole Inj IVP SCH (09:49)
[2020-09-19] MEDS: Ascorbic Acid 500mg tab ORAL SCH (10:08)
[2020-09-19] MEDS: Vancomycin 1 GM in NS 275 ML IVPB SCH ×2 (10:32→23:03)
--- NOTE | 2020-09-19 11:54 | Infectious Diseases Prog Note ---
Assessment/Plan Assessment/Plan antibiotics : vancomycin iv, zosyn A 1. staph aureus Pneumonia COVID-19 test is negative. 2. Dementia. 3. Leukocytosis improving 4. Urinary tract infection 5. + blood cultures with coag neg staph likely contaminated P 1. continue vancomycin iv 2. d/c zosyn 3. will follow up cultures Subjective ROS Limited/Unobtainable: Yes Allergies: Coded Allergies: No Known Allergies (Unverified , 09/10/20) Objective Last 24 Hour Vital Signs Date Time Temp Pulse Resp B/P (MAP) Pulse Ox O2 Delivery O2 Flow Rate FiO2 09/19/20 09:00 98.2 69 24 110/71 (84) 97 09/19/20 09:00 Venturi Mask 15.0 Venturi Mask 15.0 Venturi Mask 15.0 09/19/20 08:01 98 Venturi Mask 15.0 55 09/19/20 08:00 Venturi Mask 15.0 Venturi Mask 15.0 Venturi Mask 15.0 09/19/20 08:00 68 09/19/20 08:00 15.0 09/19/20 08:00 69 25 95/52 (66) 97 09/19/20 07:00 69 25 91/48 (62) 97 09/19/20 06:00 70 23 98/57 (71) 95 09/19/20 05:00 69 23 110/51 (70) 98 09/19/20 04:00 Venturi Mask 15.0 Venturi Mask 15.0 Venturi Mask 15.0 09/19/20 04:00 98.8 66 25 103/62 (76) 98 09/19/20 04:00 15.0 09/19/20 03:44 67 09/19/20 03:00 78 29 100/58 (72) 97 09/19/20 02:00 67 21 95/71 (79) 97 09/19/20 01:00 75 24 96/57 (70) 97 09/19/20 00:08 68 09/19/20 00:00 15.0 09/19/20 00:00 Venturi Mask 15.0 Venturi Mask 15.0 Venturi Mask 15.0 09/19/20 00:00 98.6 72 23 107/61 (76) 98 09/18/20 23:21 71 09/18/20 23:00 72 22 95/58 (70) 98 09/18/20 22:00 70 21 102/60 (74) 100 09/18/20 21:00 68 24 99/53 (68) 100 09/18/20 20:00 100.4 69 26 97/66 (76) 98 09/18/20 20:00 Venturi Mask 15.0 Venturi Mask 15.0 Venturi Mask 15.0 09/18/20 20:00 15.0 09/18/20 19:27 98 Venturi Mask 15.0 55 09/18/20 19:20 72 09/18/20 19:00 69 24 97/58 (71) 98 09/18/20 18:00 70 21 127/79 (95) 95 09/18/20 17:00 71 29 103/65 (78) 94 09/18/20 16:00 72 09/18/20 16:00 99.6 72 21 114/70 (85) 99 09/18/20 16:00 Venturi Mask 15.0 Venturi Mask 15.0 Venturi Mask 15.0 09/18/20 16:00 15.0 09/18/20 15:00 73 25 108/68 (81) 99 09/18/20 14:00 71 25 110/66 (81) 99 09/18/20 13:00 98.6 78 31 107/59 (75) 98 09/18/20 12:00 15.0 09/18/20 12:00 Venturi Mask 15.0 Venturi Mask 15.0 Venturi Mask 15.0 09/18/20 12:00 68 31 107/59 (75) 100 09/18/20 12:00 76 Height (Feet): 5 Height (Inches): 7.00 Weight (Pounds): 121 Respiratory/Chest: lungs clear Cardiovascular: normal rate, regular rhythm, no gallop/murmur Abdomen: soft, non tender Extremities: no edema Microbiology Date/Time Source Procedure Growth Status 09/18/20 18:30 Stool Clostridium difficile Toxin Assay - Final Complete 09/18/20 03:50 Sputum Gram Stain - Final Resulted 09/18/20 03:50 Sputum Culture - Preliminary Staphylococcus Aureus Resulted 09/17/20 12:58 Blood Blood Culture - Preliminary NO GROWTH AFTER 24 HOURS Resulted 09/17/20 12:50 Blood Blood Culture - Preliminary NO GROWTH AFTER 24 HOURS Resulted Laboratory Tests Test 09/19/20 04:00 09/19/20 08:01 09/19/20 10:00 White Blood Count 11.3 K/UL (4.8-10.8) H Red Blood Count 3.12 M/UL (4.70-6.10) L Hemoglobin 9.0 G/DL (14.2-18.0) L Hematocrit 25.4 % (42.0-52.0) L Mean Corpuscular Volume 82 FL (80-99) Mean Corpuscular Hemoglobin 28.8 PG (27.0-31.0) Mean Corpuscular Hemoglobin Concent 35.3 G/DL (32.0-36.0) Red Cell Distribution Width 15.6 % (11.6-14.8) H Platelet Count 180 K/UL (150-450) Mean Platelet Volume 8.6 FL (6.5-10.1) Neutrophils (%) (Auto) 84.7 % (45.0-75.0) H Lymphocytes (%) (Auto) 6.8 % (20.0-45.0) L Monocytes (%) (Auto) 7.0 % (1.0-10.0) Eosinophils (%) (Auto) 1.2 % (0.0-3.0) Basophils (%) (Auto) 0.3 % (0.0-2.0) Sodium Level 145 MMOL/L (136-145) Potassium Level 3.6 MMOL/L (3.5-5.1) Chloride Level 111 MMOL/L (98-107) H Carbon Dioxide Level 27 MMOL/L (21-32) Anion Gap 7 mmol/L (5-15) Blood Urea Nitrogen 23 mg/dL (7-18) H Creatinine 1.1 MG/DL (0.55-1.30) Estimat Glomerular Filtration Rate > 60 mL/min (>60) Glucose Level 90 MG/DL (74-106) Calcium Level 7.4 MG/DL (8.5-10.1) L Total Bilirubin 0.4 MG/DL (0.2-1.0) Aspartate Amino Transf (AST/SGOT) 42 U/L (15-37) H Alanine Aminotransferase (ALT/SGPT) 38 U/L (12-78) Alkaline Phosphatase 59 U/L (46-116) Pro-B-Type Natriuretic Peptide 1526 pg/mL (0-125) H Total Protein 5.3 G/DL (6.4-8.2) L Albumin 1.6 G/DL (3.4-5.0) L Globulin 3.7 g/dL Albumin/Globulin Ratio 0.4 (1.0-2.7) L Arterial Blood pH 7.488 (7.350-7.450) Arterial Blood Partial Pressure CO2 31.0 mmHg (35.0-45.0) L Arterial Blood Partial Pressure O2 73.6 mmHg (75.0-100.0) L Arterial Blood HCO3 23.0 mmol/L (22.0-26.0) Arterial Blood Oxygen Saturation 94.6 % (95-100) L Arterial Blood Base Excess 0.1 (-2-2) Freddy Test Positive Vancomycin Level Trough 16.3 ug/mL (5.0-12.0) H Current Medications Medications (Trade) Dose Ordered Sig/Aleksander Route PRN Reason Start Time Stop Time Status Last Admin Dose Admin Acetaminophen (Tylenol) 650 mg Q4H PRN NG Temp >100.5 09/10/20 23:15 10/10/20 23:14 09/18/20 21:33 Al Hydroxide/Mg Hydroxide (Mylanta) 30 ml Q4H PRN NG Constipation 09/11/20 00:15 10/10/20 23:14 Albuterol/ Ipratropium (Albuterol/ Ipratropium) 3 ml Q4H PRN HHN Shortness of Breath 09/15/20 16:15 09/20/20 16:14 09/16/20 13:16 Ascorbic Acid (Vitamin C) 250 mg DAILY ORAL 09/18/20 09:00 10/18/20 08:59 09/19/20 10:08 Finasteride (Proscar) 5 mg DAILY ORAL 09/13/20 09:00 12/12/20 08:59 09/19/20 09:49 Multivitamins (Multivitamins) 1 tab DAILY ORAL 09/18/20 09:00 10/18/20 08:59 09/19/20 09:49 Ondansetron HCl (Zofran) 4 mg Q6H PRN IVP Nausea & Vomiting 09/10/20 23:15 10/10/20 23:14 Pantoprazole (Protonix) 40 mg DAILY IVP 09/11/20 09:00 10/11/20 08:59 09/19/20 09:49 Piperacillin Sod/ Tazobactam Sod 3.375 gm/Sodium Chloride 110 ml @ 27.5 mls/hr Q8H IVPB 09/16/20 14:00 09/23/20 13:59 09/19/20 05:37 Tamsulosin HCl (Flomax) 0.4 mg BEDTIME ORAL 09/12/20 21:00 10/12/20 20:59 09/18/20 20:27 Valproic Acid (Depakene) 1,000 mg BEDTIME NG 09/16/20 21:00 10/31/20 20:59 09/18/20 20:28 Vancomycin HCl (Vanco pharmacy to dose) 1 ea DAILY PRN MISC Per rx protocol 09/16/20 08:45 10/16/20 08:44 Vancomycin HCl 1 gm/Sodium Chloride 275 ml @ 184 mls/hr Q12H IVPB 09/17/20 23:00 09/22/20 22:59 09/19/20 10:32 Zinc Sulfate (Zinc Sulfate) 220 mg DAILY ORAL 09/18/20 09:00 09/28/20 08:59 09/19/20 09:48 Martha Collins MD Sep 19, 2020 11:54
--- NOTE | 2020-09-19 15:20 | Diagnostic Imaging Report ---
Indication: Shortness of breath Technique: One view of the chest Comparison: 09/18/2020 Findings: Bilateral infiltrates versus edema, borderline cardiomegaly, left pleural effusion are unchanged. Nasogastric tube is again demonstrated. Impression: Unchanged, over one day, findings as above.
--- NOTE | 2020-09-19 17:11 | NUR ---
CASE MANAGEMENT:REVIEW SI;SEVERE SEPSIS. PNEUMONIA. ENCEPHALOPATHY. 98.6 69 25 91/48 97% 15L VENTURI MASK FIO2 55% WBC 11.3 H/H 9.0/25.4 BUN 23 CA 7.4 AST 42 ALB 1.6 IS;K-DUR NG ONCE LASIX IV ONCE VANCOMYCIN IV Q12 ZOSYN IV Q8 DUO NEB HHN Q4 PRN TRANSFERRED FROM ICU TO [facility]
--- NOTE | 2020-09-19 18:54 | Surgery Progress Note ---
Surgery Progress Note Subjective Additional Comments leukocytosis improved labs improved no n/v/f/c comfortable cxr noted stable Objective Last 24 Hour Vital Signs Date Time Temp Pulse Resp B/P (MAP) Pulse Ox O2 Delivery O2 Flow Rate FiO2 09/19/20 16:00 98.1 65 24 99/62 (74) 99 09/19/20 16:00 15.0 55 09/19/20 15:14 57 09/19/20 12:00 68 09/19/20 12:00 98.2 63 23 117/67 (84) 99 09/19/20 12:00 15.0 55 09/19/20 09:00 98.2 69 24 110/71 (84) 97 09/19/20 09:00 Venturi Mask 15.0 Venturi Mask 15.0 Venturi Mask 15.0 09/19/20 08:01 98 Venturi Mask 15.0 55 09/19/20 08:00 Venturi Mask 15.0 Venturi Mask 15.0 Venturi Mask 15.0 09/19/20 08:00 68 09/19/20 08:00 15.0 09/19/20 08:00 69 25 95/52 (66) 97 09/19/20 07:00 69 25 91/48 (62) 97 09/19/20 06:00 70 23 98/57 (71) 95 09/19/20 05:00 69 23 110/51 (70) 98 09/19/20 04:00 Venturi Mask 15.0 Venturi Mask 15.0 Venturi Mask 15.0 09/19/20 04:00 98.8 66 25 103/62 (76) 98 09/19/20 04:00 15.0 09/19/20 03:44 67 09/19/20 03:00 78 29 100/58 (72) 97 09/19/20 02:00 67 21 95/71 (79) 97 09/19/20 01:00 75 24 96/57 (70) 97 09/19/20 00:08 68 09/19/20 00:00 15.0 09/19/20 00:00 Venturi Mask 15.0 Venturi Mask 15.0 Venturi Mask 15.0 09/19/20 00:00 98.6 72 23 107/61 (76) 98 09/18/20 23:21 71 09/18/20 23:00 72 22 95/58 (70) 98 09/18/20 22:00 70 21 102/60 (74) 100 09/18/20 21:00 68 24 99/53 (68) 100 09/18/20 20:00 100.4 69 26 97/66 (76) 98 09/18/20 20:00 Venturi Mask 15.0 Venturi Mask 15.0 Venturi Mask 15.0 09/18/20 20:00 15.0 09/18/20 19:27 98 Venturi Mask 15.0 55 09/18/20 19:20 72 09/18/20 19:00 69 24 97/58 (71) 98 I&O Intake and Output 09/18/20 09/19/20 19:00 07:00 Intake Total 1685.0 ml 1630.0 ml Output Total 570 ml 1025 ml Balance 1115.0 ml 605.0 ml Free Water 100 ml 330 ml IV Total 985.0 ml 700.0 ml Tube Feeding 600 ml 600 ml Output Urine Total 570 ml 1025 ml # Bowel Movements 1 3 Dressing: saturated Cardiovascular: RSR Respiratory: decreased breath sounds Abdomen: non-tender, present bowel sounds Extremities: no edema, no tenderness, no cyanosis Laboratory Tests Test 09/19/20 04:00 09/19/20 08:01 09/19/20 10:00 White Blood Count 11.3 K/UL (4.8-10.8) H Red Blood Count 3.12 M/UL (4.70-6.10) L Hemoglobin 9.0 G/DL (14.2-18.0) L Hematocrit 25.4 % (42.0-52.0) L Mean Corpuscular Volume 82 FL (80-99) Mean Corpuscular Hemoglobin 28.8 PG (27.0-31.0) Mean Corpuscular Hemoglobin Concent 35.3 G/DL (32.0-36.0) Red Cell Distribution Width 15.6 % (11.6-14.8) H Platelet Count 180 K/UL (150-450) Mean Platelet Volume 8.6 FL (6.5-10.1) Neutrophils (%) (Auto) 84.7 % (45.0-75.0) H Lymphocytes (%) (Auto) 6.8 % (20.0-45.0) L Monocytes (%) (Auto) 7.0 % (1.0-10.0) Eosinophils (%) (Auto) 1.2 % (0.0-3.0) Basophils (%) (Auto) 0.3 % (0.0-2.0) Sodium Level 145 MMOL/L (136-145) Potassium Level 3.6 MMOL/L (3.5-5.1) Chloride Level 111 MMOL/L (98-107) H Carbon Dioxide Level 27 MMOL/L (21-32) Anion Gap 7 mmol/L (5-15) Blood Urea Nitrogen 23 mg/dL (7-18) H Creatinine 1.1 MG/DL (0.55-1.30) Estimat Glomerular Filtration Rate > 60 mL/min (>60) Glucose Level 90 MG/DL (74-106) Calcium Level 7.4 MG/DL (8.5-10.1) L Total Bilirubin 0.4 MG/DL (0.2-1.0) Aspartate Amino Transf (AST/SGOT) 42 U/L (15-37) H Alanine Aminotransferase (ALT/SGPT) 38 U/L (12-78) Alkaline Phosphatase 59 U/L (46-116) Pro-B-Type Natriuretic Peptide 1526 pg/mL (0-125) H Total Protein 5.3 G/DL (6.4-8.2) L Albumin 1.6 G/DL (3.4-5.0) L Globulin 3.7 g/dL Albumin/Globulin Ratio 0.4 (1.0-2.7) L Arterial Blood pH 7.488 (7.350-7.450) Arterial Blood Partial Pressure CO2 31.0 mmHg (35.0-45.0) L Arterial Blood Partial Pressure O2 73.6 mmHg (75.0-100.0) L Arterial Blood HCO3 23.0 mmol/L (22.0-26.0) Arterial Blood Oxygen Saturation 94.6 % (95-100) L Arterial Blood Base Excess 0.1 (-2-2) Freddy Test Positive Vancomycin Level Trough 16.3 ug/mL (5.0-12.0) H Plan Problems: (1) Fever Assessment & Plan: maybe developing pneumonia cont abx pulm input thank you (2) Decubitus skin ulcer Assessment & Plan: Patient identified on admission to have multiple scabs on the left arm. mild open scabs with eschar. no drainage. no significant cellulitis. bruising no bilateral extremities noted. no signs of abuse. likely from agitation Sacral coccygeal noted to have a DTI 4.3X2.5CM. which is dark purple . RECOMMEND-CLEAN WITH SALINE, PAT DRY AND APPLY CALAZINE. COVER WITH OPTIFOAM DRESSING. REPLACE EVERY 3 DAYS OR NEEDED LEFT ISCHIUM- STAGE I PRESSURE ULCER MEASURES 4.5X1.7CM. NON-BLANCHABLE ERYTHEMA. RECOMMEND- APPLY CALAZINE AND COVER WITH OPTIFOAM DRESSING. REPLACE EVERY 7 DAYS. Turn q2h off load pressure with pillow off load heels nutritional optimization [employer] eval will follow with recs thank you (3) Malnutrition Assessment & Plan: Mr. Roman is a 70 year old male BIBA to ED of [facility] on 08/20 around 14:00 due to fever. He was found to be hypotensive 91/55 (67), Temp: 100.0, leukocytosis 20.8k and subsequently transferred to ICU for septic shock. The blood culture is reportedly positive for gram positive cocci. NG tube was placed, KUB confirmed the placement to day. Pt is clinically stable with leukocytosis 20.1, improved BUN and creatine, stable hemodynamic without vasopressor. Findings: Mr. Roman is disoriented. He does ot follow commands at this time. Oral cavity is noted to be dried blood concretion likely from NG trauma. No active bleeding site is seen. Due to his level f alertness, already NG tube is in placed, PO trial was not done at this time. Transferred out ICU last night. He is non on tele. Issues: multiple wounds, s.p balaji/nasal/pharyngeal bleeding with blood culture Gram positive cocci leukocytosis trending down from 20k-20k-16k BUN/Creatine trending down from 93/1.9-79/1.3-54/1.1 Temp: 98.1~98.7, Pulse: 62~72, BP: 105/67~120/48, SPO2 98~100% on 2 liter S: Oral cavity is better condition comparison to yesterday. The mucosa is severely erythema without active bleeding. Limited level of alertness for direct therapy. NG in placed O: 1. Laryngeal palpation to trigger spontaneous cough and swallow: Pt burt ered cough with laryngeal palpation. Approximately 5~10 seconds after coughing, he triggered swallow. based on this observation, he presents with copious secretion in pharynx and larynx. He continued to have poor secretion management at laryngeal level at this time. NO PO trial was given due to poor secretion at the level of air way with low level of alertness. A: 1. Probable aspiration of his own secretion with poor ability to cough and swallow 2. Dysphagia P: 1. NPO for now 2. Observe his secretion, and level of alertness for PO readiness. DAILY ESTIMATED NEEDS: Needs based on Wound, underweight/ 55kg 30-35 kcals/kg 9274-4935 total kcals 1.25-2 g protein/kg 69-110 g total protein 25-30 mL/kg 1741-6439 total fluid mLs NUTRITION DIAGNOSIS: Increased kcal/prot needs R/T wound healing and underweight status as evidenced by pt admitted w/ wounds including DTI 2 coccyx and stage 1 @ lt ischium, pt @ 73% IBW w/ low BMI per guidelines, s/p NGT insertion, on NGT feeds. CURRENT TF:Jevity 1.2 @ 50ml/hr x 24 hrs ENTERAL NUTRITION RECOMMENDATIONS: Jevity 1.2 @ 60ml/hr x 24 hrs to provide 1440ml, 1728kcal, 80g prot, 1160ml free water * As medically appropriate, increase goal rate to 60ml/hr x 24 hrs to meet 100% est kcal/prot needs * HOB over 30 degrees/ without IVF, H2O flush of 100ml q 8hrs ADDITIONAL RECOMMENDATIONS: * Calibrated daily bedscale wt Per SNF: HT=70" * Wound healing: TF rec @ goal will provide 100% RDI add Vit C 250mg QD, ZnSO4 220mg QD x 10days, Davidson BID via NGT * Monitor BGs, need for NISS w/ TF * Monitor lytes, replete as needed- high risk for refeeding syndrome -> check f/up phos and mag (4) Severe sepsis (5) Open upper arm wound (6) Hematuria Assessment & Plan: as per urology Aubrey Gutierrez Sep 19, 2020 18:54
--- NOTE | 2020-09-19 19:10 | NUR ---
NURSE HAND-OFF REPORT: Important Events on Shift: On NC 4L with cool mist Patient Status: FULL CODE Diet: Jevity 1.2 50ml/hr Pending Orders: Pending Results/Labs:[] Pending MD notification:[] Latest Vital Signs: Temperature 98.1 , Pulse 65 , B/P 99 /62 , Respiratory Rate 24 , O2 SAT 96 , Venturi Mask, O2 Flow Rate 4.0 . Vital Sign Comment: stable EKG Rhythm: Sinus Rhythm Rhythm change?: N MD Notified?: Bienvenido Rios MD Response: Latest Schultz Fall Score: 70 Fall Risk: High Risk Safety Measures: Call light Within Reach, Bed Alarm Zone 2, Side Rails Side Rails x3, Bed position Low and Locked. Fall Precautions: Yellow Socks Door Sign Patient Fall Education Report given to ARTEMIO Pfeiffer.
--- NOTE | 2020-09-19 19:10 | NUR ---
NURSE NOTES: Report received from ARTEMIO Fagan. Pt appears to be sleeping, disoriented, non-reactive to verbal stimuli. Reactive to tactile stimuli. PERRLA. Pt saturating 95% on 4L N/C cool-mist with no respiratory distress noted. Breathing appears to be symmetrical with a RR of 18. Ronchi heard upon auscultation of breath sounds. 5-lead EKG shows SR at 66 BPM. No cardiac distress noted. Peripheral pulses auscultated. Left edema on upper and lower extremities. <3 cap refill. BP WNL. Febrile at 100.4 at start of shift. Cooling measures initiated. NGT noted on the right nare running Jevity 1.2 at 50mL. Auscultated for placement with 0 residual noted. Rae catheter draining well to gravity. Urine appears to be light sky with no sediments noted. Bilateral soft wrist restraints noted for attempting to pull medical devices. Will determine if pt is able to discontinue restraints. SCD's noted on bilateral extremities. Bed kept in lowest and locked position. Bed alarm on. Will continue to monitor.
[2020-09-19] MEDS: Valproic Acid 250mg/5ml Liquid NG SCH (21:13)
[2020-09-19] MEDS: Tamsulosin 0.4mg cap ORAL SCH (21:13)
[2020-09-19] MEDS: Acetaminophen 650mg/20.3ml NG PRN (21:18)
--- NOTE | 2020-09-19 22:00 | NUR ---
NURSE NOTES: Temperature decreased from 100.4 to 98.1. No S/S of distress noted. will monitor
[2020-09-20] VITALS: BP 91/58
--- NOTE | 2020-09-20 | NUR ---
NURSE NOTES: Pt observed attempting to pull medical devices. Pt is non compliant and very confused despite all needs met. Will monitor.
--- NOTE | 2020-09-20 02:38 | Cardiology Progress Note ---
Subjective DATE OF SERVICE: Sep 19, 2020 Remains congested today, with SOB on high flow mask. Episodically pulls off mask Monitor: sinus rhythm; no significant bradycardia. CXR (09/17) persisting left consolidation with new right atelectasis/infiltr ABG: (09/19/20) 7.49//74 Objective Last 24 Hour Vital Signs Date Time Temp Pulse Resp B/P (MAP) Pulse Ox O2 Delivery O2 Flow Rate FiO2 09/20/20 00:00 62 09/20/20 00:00 98.6 68 22 91/58 (69) 94 09/20/20 00:00 4.0 09/19/20 22:00 98.1 09/19/20 21:00 Venturi Mask 15.0 Venturi Mask 15.0 Venturi Mask 15.0 09/19/20 20:00 56 09/19/20 20:00 99.3 66 22 104/61 (75) 95 09/19/20 20:00 4.0 09/19/20 19:03 96 Nasal Cannula 4.0 36 09/19/20 16:00 98.1 65 24 99/62 (74) 99 09/19/20 16:00 15.0 55 09/19/20 15:14 57 09/19/20 12:00 68 09/19/20 12:00 98.2 63 23 117/67 (84) 99 09/19/20 12:00 15.0 55 09/19/20 09:00 98.2 69 24 110/71 (84) 97 09/19/20 09:00 Venturi Mask 15.0 Venturi Mask 15.0 Venturi Mask 15.0 09/19/20 08:01 98 Venturi Mask 15.0 55 09/19/20 08:00 Venturi Mask 15.0 Venturi Mask 15.0 Venturi Mask 15.0 09/19/20 08:00 68 09/19/20 08:00 15.0 09/19/20 08:00 69 25 95/52 (66) 97 09/19/20 07:00 69 25 91/48 (62) 97 09/19/20 06:00 70 23 98/57 (71) 95 09/19/20 05:00 69 23 110/51 (70) 98 09/19/20 04:00 Venturi Mask 15.0 Venturi Mask 15.0 Venturi Mask 15.0 09/19/20 04:00 98.8 66 25 103/62 (76) 98 09/19/20 04:00 15.0 09/19/20 03:44 67 09/19/20 03:00 78 29 100/58 (72) 97 ROS: no change from my evaluation of 09/10/20. HEENT: normal ENT inspection RHYTHM: NSR, ST LUNGS: bilat. rhonchi and rales CARDIAC: normal rate, regular rhythm, normal S1 and S2 ABDOMEN: normal bowel sounds, soft, other - sacral decub EXTREMITIES: No edema Laboratory Tests Test 09/19/20 04:00 09/19/20 08:01 09/19/20 10:00 White Blood Count 11.3 K/UL (4.8-10.8) H Red Blood Count 3.12 M/UL (4.70-6.10) L Hemoglobin 9.0 G/DL (14.2-18.0) L Hematocrit 25.4 % (42.0-52.0) L Mean Corpuscular Volume 82 FL (80-99) Mean Corpuscular Hemoglobin 28.8 PG (27.0-31.0) Mean Corpuscular Hemoglobin Concent 35.3 G/DL (32.0-36.0) Red Cell Distribution Width 15.6 % (11.6-14.8) H Platelet Count 180 K/UL (150-450) Mean Platelet Volume 8.6 FL (6.5-10.1) Neutrophils (%) (Auto) 84.7 % (45.0-75.0) H Lymphocytes (%) (Auto) 6.8 % (20.0-45.0) L Monocytes (%) (Auto) 7.0 % (1.0-10.0) Eosinophils (%) (Auto) 1.2 % (0.0-3.0) Basophils (%) (Auto) 0.3 % (0.0-2.0) Sodium Level 145 MMOL/L (136-145) Potassium Level 3.6 MMOL/L (3.5-5.1) Chloride Level 111 MMOL/L (98-107) H Carbon Dioxide Level 27 MMOL/L (21-32) Anion Gap 7 mmol/L (5-15) Blood Urea Nitrogen 23 mg/dL (7-18) H Creatinine 1.1 MG/DL (0.55-1.30) Estimat Glomerular Filtration Rate > 60 mL/min (>60) Glucose Level 90 MG/DL (74-106) Calcium Level 7.4 MG/DL (8.5-10.1) L Total Bilirubin 0.4 MG/DL (0.2-1.0) Aspartate Amino Transf (AST/SGOT) 42 U/L (15-37) H Alanine Aminotransferase (ALT/SGPT) 38 U/L (12-78) Alkaline Phosphatase 59 U/L (46-116) Pro-B-Type Natriuretic Peptide 1526 pg/mL (0-125) H Total Protein 5.3 G/DL (6.4-8.2) L Albumin 1.6 G/DL (3.4-5.0) L Globulin 3.7 g/dL Albumin/Globulin Ratio 0.4 (1.0-2.7) L Arterial Blood pH 7.488 (7.350-7.450) Arterial Blood Partial Pressure CO2 31.0 mmHg (35.0-45.0) L Arterial Blood Partial Pressure O2 73.6 mmHg (75.0-100.0) L Arterial Blood HCO3 23.0 mmol/L (22.0-26.0) Arterial Blood Oxygen Saturation 94.6 % (95-100) L Arterial Blood Base Excess 0.1 (-2-2) Freddy Test Positive Vancomycin Level Trough 16.3 ug/mL (5.0-12.0) H Microbiology Date/Time Source Procedure Growth Status 09/18/20 18:30 Stool Clostridium difficile Toxin Assay - Final Complete 09/18/20 03:50 Sputum Gram Stain - Final Resulted 09/18/20 03:50 Sputum Culture - Preliminary Staphylococcus Aureus Resulted 09/17/20 12:58 Blood Blood Culture - Preliminary NO GROWTH AFTER 24 HOURS Resulted 09/17/20 12:50 Blood Blood Culture - Preliminary NO GROWTH AFTER 24 HOURS Resulted Assessment/Plan Assessment/Plan Sepsis Leukocytosis Probable new aspiration PNA Recovering shock Hypovolemia Dehydration/hypernatremia corrected. Likely congestion due to aspiration Acute myocardial ischemia Acute renal failure HC assoc PNA UTI CVA/dementia Sinus bradycardia, asymptomatic Acute diastolic CHF Remains CRITICAL & GUARDED Diuresisadded, based on clinical parameters. Antimicrobials per ID. Replace lytes as needed. DVT prophyl Cardiac monitoring Madi Rios MD Sep 20, 2020 02:38
[2020-09-20 04:00] VITALS: BP 130/89
[2020-09-20 05:51] LABS: ANION GAP 5 mmol/L (5-15); BLOOD UREA NITROGEN 24 mg/dL (7-18); CALCIUM 7.6 MG/DL (8.5-10.1); CARBON DIOXIDE 27 MMOL/L (21-32); CHLORIDE 113 MMOL/L (98-107); CREATININE 1.1 MG/DL (0.55-1.30); POTASSIUM 3.7 MMOL/L (3.5-5.1); SODIUM 145 MMOL/L (136-145)
[2020-09-20 05:58] LABS: BASOPHILS % (AUTO) 0.5 % (0.0-2.0); EOSINOPHILS % (AUTO) 1.7 % (0.0-3.0); HEMATOCRIT 26.1 % (42.0-52.0); HEMOGLOBIN 9.1 G/DL (14.2-18.0); LYMPHOCYTES % (AUTO) 7.3 % (20.0-45.0); MEAN CORPUSCULAR VOLUME 83 FL (80-99); MONOCYTES % (AUTO) 9.3 % (1.0-10.0); NEUTROPHILS % (AUTO) 81.2 % (45.0-75.0); PLATELET COUNT 190 K/UL (150-450); RED BLOOD COUNT 3.15 M/UL (4.70-6.10); RED CELL DISTRIBUTION WIDTH 14.3 % (11.6-14.8); WHITE BLOOD COUNT 10.8 K/UL (4.8-10.8)
--- NOTE | 2020-09-20 07:42 | NUR ---
NURSE HAND-OFF REPORT: Important Events on Shift: No changes Patient Status: Stable Diet: Jevity Pending Orders: Pending Results/Labs: Pending MD notification: YES - for labs, CT for AMS, and repeat ammonia level Latest Vital Signs: Temperature 98.6 , Pulse 71 , B/P 130 /89 , Respiratory Rate 18 , O2 SAT 94 , Venturi Mask, O2 Flow Rate 4.0 . Vital Sign Comment: WNL EKG Rhythm: Sinus Rhythm Rhythm change?: N MD Notified?: Y -Dr. Gabriel BENITEZ Response: Latest Schultz Fall Score: 70 Fall Risk: High Risk Safety Measures: Call light Within Reach, Bed Alarm Zone 1, Side Rails Side Rails x3, Bed position Low and Locked. Fall Precautions: Yellow Socks Door Sign Patient Fall Education Report given to .
[2020-09-20 08:00] VITALS: BP 91/53
--- NOTE | 2020-09-20 08:02 | NUR ---
NURSE NOTES: pt. was in bed asleep, on school bus monitor. No signs of cardiac or respiratory distress. right forearm IV is patent. pt. is on wrist restraints, skin is intact with no skin breakdown. rectal tube is place. notified that pt has diarrhea. andrade catheter is in place. bed is locked and in lowest position with call light within reach.
--- NOTE | 2020-09-20 08:06 | Urology Progress Note ---
Assessment/Plan Status: stable Assessment/Plan: 1. Gross hematuria. 2. Pyuria and possible UTI. 3. Proteinuria. 4. BPH. 5. Urinary retention. 6. Probable neurogenic bladder. 7. Possible sepsis. monitor clinically maintain andrade hand irrigated and do PRN abx as ordered flomax and proscar added cysto electively voiding trial at some point? f/u on last blood cx Subjective Allergies: Coded Allergies: No Known Allergies (Unverified , 09/10/20) Subjective non-verbal out of ICU Objective Last 24 Hour Vital Signs Date Time Temp Pulse Resp B/P (MAP) Pulse Ox O2 Delivery O2 Flow Rate FiO2 09/20/20 04:00 98.6 64 18 130/89 (103) 94 09/20/20 04:00 71 09/20/20 04:00 4.0 09/20/20 00:00 62 09/20/20 00:00 98.6 68 22 91/58 (69) 94 09/20/20 00:00 4.0 09/19/20 22:00 98.1 09/19/20 21:00 Venturi Mask 15.0 Venturi Mask 15.0 Venturi Mask 15.0 09/19/20 20:00 56 09/19/20 20:00 99.3 66 22 104/61 (75) 95 09/19/20 20:00 4.0 09/19/20 19:03 96 Nasal Cannula 4.0 36 09/19/20 16:00 98.1 65 24 99/62 (74) 99 09/19/20 16:00 15.0 55 09/19/20 15:14 57 09/19/20 12:00 68 09/19/20 12:00 98.2 63 23 117/67 (84) 99 09/19/20 12:00 15.0 55 09/19/20 09:00 98.2 69 24 110/71 (84) 97 09/19/20 09:00 Venturi Mask 15.0 Venturi Mask 15.0 Venturi Mask 15.0 Intake and Output 09/19/20 09/20/20 19:00 07:00 Intake Total 1098 ml 1108 ml Output Total 670 ml 600 ml Balance 428 ml 508 ml Free Water 130 ml 200 ml IV Total 368 ml 358 ml Tube Feeding 600 ml 550 ml Output Urine Total 670 ml 600 ml # Bowel Movements 1 1 Microbiology Date/Time Source Procedure Growth Status 09/18/20 18:30 Stool Clostridium difficile Toxin Assay - Final Complete 09/18/20 03:50 Sputum Gram Stain - Final Resulted 09/18/20 03:50 Sputum Culture - Preliminary Staphylococcus Aureus Resulted 09/17/20 12:58 Blood Blood Culture - Preliminary NO GROWTH AFTER 24 HOURS Resulted 09/10/20 20:05 Urine,Clean Catch Urine Culture - Final NO GROWTH AFTER 48 HOURS Complete 09/10/20 17:15 Rectum VRE Culture - Final Enterococcus Faecalis - Vre Complete Current Medications Medications (Trade) Dose Ordered Sig/Aleksander Route PRN Reason Start Time Stop Time Status Last Admin Dose Admin Acetaminophen (Tylenol) 650 mg Q4H PRN NG Temp >100.5 09/10/20 23:15 10/10/20 23:14 09/19/20 21:18 Al Hydroxide/Mg Hydroxide (Mylanta) 30 ml Q4H PRN NG Constipation 09/11/20 00:15 10/10/20 23:14 Albuterol/ Ipratropium (Albuterol/ Ipratropium) 3 ml Q4H PRN HHN Shortness of Breath 09/15/20 16:15 09/20/20 16:14 09/16/20 13:16 Ascorbic Acid (Vitamin C) 250 mg DAILY ORAL 09/18/20 09:00 10/18/20 08:59 09/19/20 10:08 Finasteride (Proscar) 5 mg DAILY ORAL 09/13/20 09:00 12/12/20 08:59 09/19/20 09:49 Furosemide (Lasix) 20 mg DAILY IV 09/20/20 09:00 10/20/20 08:59 Multivitamins (Multivitamins) 1 tab DAILY ORAL 09/18/20 09:00 10/18/20 08:59 09/19/20 09:49 Ondansetron HCl (Zofran) 4 mg Q6H PRN IVP Nausea & Vomiting 09/10/20 23:15 10/10/20 23:14 Pantoprazole (Protonix) 40 mg DAILY IVP 09/11/20 09:00 10/11/20 08:59 09/19/20 09:49 Potassium Chloride (K-Dur) 20 meq DAILY NG 09/20/20 09:00 12/19/20 08:59 Tamsulosin HCl (Flomax) 0.4 mg BEDTIME ORAL 09/12/20 21:00 10/12/20 20:59 09/19/20 21:13 Valproic Acid (Depakene) 1,000 mg BEDTIME NG 09/16/20 21:00 10/31/20 20:59 09/19/20 21:13 Vancomycin HCl (Vanco pharmacy to dose) 1 ea DAILY PRN MISC Per rx protocol 09/16/20 08:45 10/16/20 08:44 Vancomycin HCl 1 gm/Sodium Chloride 275 ml @ 184 mls/hr Q12H IVPB 09/17/20 23:00 09/22/20 22:59 09/19/20 23:03 Zinc Sulfate (Zinc Sulfate) 220 mg DAILY ORAL 09/18/20 09:00 09/28/20 08:59 09/19/20 09:48 Laboratory Tests 09/19/20 10:00: Vancomycin Level Trough 16.3H 09/20/20 02:50: White Blood Count 10.8, Red Blood Count 3.15L, Hemoglobin 9.1L, Hematocrit 26.1L , Mean Corpuscular Volume 83, Mean Corpuscular Hemoglobin 28.9, Mean Corpuscular Hemoglobin Concent 34.9, Red Cell Distribution Width 14.3, Platelet Count 190, Mean Platelet Volume 7.9, Neutrophils (%) (Auto) 81.2H, Lymphocytes (%) (Auto) 7.3L, Monocytes (%) (Auto) 9.3, Eosinophils (%) (Auto) 1.7, Basophils (%) (Auto) 0.5, Sodium Level 145, Potassium Level 3.7, Chloride Level 113H, Carbon Dioxide Level 27, Anion Gap 5, Blood Urea Nitrogen 24H, Creatinine 1.1, Estimat Glomerular Filtration Rate > 60, Glucose Level 97, Calcium Level 7.6L Height (Feet): 5 Height (Inches): 7.00 Weight (Pounds): 121 Objective exam stable urine clearing Levi Brunson MD Sep 20, 2020 08:06
[2020-09-20] MEDS ORDERED: Lomotil 2.5mg tab ORAL PRN (08:15)
--- NOTE | 2020-09-20 08:15 | General Progress Note ---
Subjective ROS Limited/Unobtainable: Yes Constitutional: Reports: malaise, weakness HEENT: Reports: no symptoms Cardiovascular: Reports: no symptoms Respiratory: Reports: cough Gastrointestinal/Abdominal: Reports: diarrhea, difficulty swallowing Genitourinary: Reports: no symptoms Neurologic/Psychiatric: Reports: anxiety, emotional problems, pre-existing deficit Endocrine: Reports: no symptoms Hematologic/Lymphatic: Reports: anemia Allergies: Coded Allergies: No Known Allergies (Unverified , 09/10/20) All Systems: reviewed and negative except above Subjective lethargic and confused. no venti mask. +diarrhea. on abx, no fever or chills. Objective Last 24 Hour Vital Signs Date Time Temp Pulse Resp B/P (MAP) Pulse Ox O2 Delivery O2 Flow Rate FiO2 09/20/20 04:00 98.6 64 18 130/89 (103) 94 09/20/20 04:00 71 09/20/20 04:00 4.0 09/20/20 00:00 62 09/20/20 00:00 98.6 68 22 91/58 (69) 94 09/20/20 00:00 4.0 09/19/20 22:00 98.1 09/19/20 21:00 Venturi Mask 15.0 Venturi Mask 15.0 Venturi Mask 15.0 09/19/20 20:00 56 09/19/20 20:00 99.3 66 22 104/61 (75) 95 09/19/20 20:00 4.0 09/19/20 19:03 96 Nasal Cannula 4.0 36 09/19/20 16:00 98.1 65 24 99/62 (74) 99 09/19/20 16:00 15.0 55 09/19/20 15:14 57 09/19/20 12:00 68 09/19/20 12:00 98.2 63 23 117/67 (84) 99 09/19/20 12:00 15.0 55 09/19/20 09:00 98.2 69 24 110/71 (84) 97 09/19/20 09:00 Venturi Mask 15.0 Venturi Mask 15.0 Venturi Mask 15.0 Intake and Output 09/19/20 09/20/20 18:59 06:59 Intake Total 998 ml 1258 ml Output Total 745 ml 600 ml Balance 253 ml 658 ml Free Water 30 ml 300 ml IV Total 368 ml 358 ml Tube Feeding 600 ml 600 ml Output Urine Total 745 ml 600 ml # Bowel Movements 1 1 Laboratory Tests 09/19/20 10:00: Vancomycin Level Trough 16.3H 09/20/20 02:50: White Blood Count 10.8, Red Blood Count 3.15L, Hemoglobin 9.1L, Hematocrit 26.1L , Mean Corpuscular Volume 83, Mean Corpuscular Hemoglobin 28.9, Mean Corpuscular Hemoglobin Concent 34.9, Red Cell Distribution Width 14.3, Platelet Count 190, Mean Platelet Volume 7.9, Neutrophils (%) (Auto) 81.2H, Lymphocytes (%) (Auto) 7.3L, Monocytes (%) (Auto) 9.3, Eosinophils (%) (Auto) 1.7, Basophils (%) (Auto) 0.5, Sodium Level 145, Potassium Level 3.7, Chloride Level 113H, Carbon Dioxide Level 27, Anion Gap 5, Blood Urea Nitrogen 24H, Creatinine 1.1, Estimat Glomerular Filtration Rate > 60, Glucose Level 97, Calcium Level 7.6L Height (Feet): 5 Height (Inches): 7.00 Weight (Pounds): 121 Objective General Appearance: WD/WN, confused EENT: normal ENT inspection Neck: normal alignment, supple Cardiovascular: normal rate, regular rhythm Respiratory/Chest: rhonchi - bilaterally Abdomen: normal bowel sounds, non tender, soft, no organomegaly Edema: no edema noted Leg (L), no edema noted Leg (R) Neurologic: fountain dispenser II-XII grossly normal, responsive, disoriented Lymphatic: normal anterior cervical (L), normal anterior cervical (R), normal posterior cervical (L), normal posterior cervical (R) Assessment/Plan Problem List: (1) PNA (pneumonia) ICD Codes: J18.9 - Pneumonia, unspecified organism SNOMED: 800752664 (2) UTI (urinary tract infection) ICD Codes: N39.0 - Urinary tract infection, site not specified SNOMED: 04435791 (3) Fever ICD Codes: R50.9 - Fever, unspecified SNOMED: 773888875 (4) Decubitus skin ulcer ICD Codes: L89.90 - Pressure ulcer of unspecified site, unspecified stage SNOMED: 754291085 (5) Malnutrition ICD Codes: E46 - Unspecified protein-calorie malnutrition SNOMED: 74731436 (6) Severe sepsis ICD Codes: A41.9 - Sepsis, unspecified organism; R65.20 - Severe sepsis without septic shock SNOMED: 93238042 (7) Hematuria ICD Codes: R31.9 - Hematuria, unspecified SNOMED: 32321298 Status: stable Assessment/Plan: iv abx per id follow up cultures scd cdiff neg lomotil for diarrhea resp care wean o2 monitor labs swallow eval when more alert. tube feeds stable Jason Layne MD Sep 20, 2020 08:15
[2020-09-20 09:30] VITALS: BP 111/62
[2020-09-20] MEDS: Zinc Sulfate 220mg ORAL SCH (09:35)
[2020-09-20] MEDS: Pantoprazole Inj IVP SCH (09:35)
[2020-09-20] MEDS: Ascorbic Acid 500mg tab ORAL SCH (09:35)
--- NOTE | 2020-09-20 09:38 | Infectious Diseases Prog Note ---
Assessment/Plan Assessment/Plan A 1. Pneumonia with MRSA COVID19 test is negative. 2. Dementia. 3. Leukocytosis resolved 4. Urinary tract infection 5. 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 BPH P 1. continue IV Vancomycin Subjective ROS Limited/Unobtainable: Yes Neurologic: Reports: confusion, other - on restraint Allergies: Coded Allergies: No Known Allergies (Unverified , 09/10/20) Objective Last 24 Hour Vital Signs Date Time Temp Pulse Resp B/P (MAP) Pulse Ox O2 Delivery O2 Flow Rate FiO2 09/20/20 09:30 111/62 (78) 09/20/20 08:00 99.3 58 24 91/53 (66) 93 09/20/20 07:25 95 Nasal Cannula 4.0 36 09/20/20 04:00 98.6 64 18 130/89 (103) 94 09/20/20 04:00 71 09/20/20 04:00 4.0 09/20/20 00:00 62 09/20/20 00:00 98.6 68 22 91/58 (69) 94 09/20/20 00:00 4.0 09/19/20 22:00 98.1 09/19/20 21:00 Venturi Mask 15.0 Venturi Mask 15.0 Venturi Mask 15.0 09/19/20 20:00 56 09/19/20 20:00 99.3 66 22 104/61 (75) 95 09/19/20 20:00 4.0 09/19/20 19:03 96 Nasal Cannula 4.0 36 09/19/20 16:00 98.1 65 24 99/62 (74) 99 09/19/20 16:00 15.0 55 09/19/20 15:14 57 09/19/20 12:00 68 09/19/20 12:00 98.2 63 23 117/67 (84) 99 09/19/20 12:00 15.0 55 Height (Feet): 5 Height (Inches): 7.00 Weight (Pounds): 121 General Appearance: no acute distress - dry mouth Respiratory/Chest: lungs clear Cardiovascular: normal rate Abdomen: soft, non tender, other - NG tube Extremities: no edema Neurologic/Psychiatric: other - sleeping Microbiology Date/Time Source Procedure Growth Status 09/18/20 18:30 Stool Clostridium difficile Toxin Assay - Final Complete 09/18/20 03:50 Sputum Gram Stain - Final Complete 09/18/20 03:50 Sputum Culture - Final Staphylococcus Aureus - Mrsa Complete 09/17/20 12:58 Blood Blood Culture - Preliminary NO GROWTH AFTER 48 HOURS Resulted 09/17/20 12:50 Blood Blood Culture - Preliminary NO GROWTH AFTER 48 HOURS Resulted Laboratory Tests Test 09/19/20 10:00 09/20/20 02:50 Vancomycin Level Trough 16.3 ug/mL (5.0-12.0) H White Blood Count 10.8 K/UL (4.8-10.8) Red Blood Count 3.15 M/UL (4.70-6.10) L Hemoglobin 9.1 G/DL (14.2-18.0) L Hematocrit 26.1 % (42.0-52.0) L Mean Corpuscular Volume 83 FL (80-99) Mean Corpuscular Hemoglobin 28.9 PG (27.0-31.0) Mean Corpuscular Hemoglobin Concent 34.9 G/DL (32.0-36.0) Red Cell Distribution Width 14.3 % (11.6-14.8) Platelet Count 190 K/UL (150-450) Mean Platelet Volume 7.9 FL (6.5-10.1) Neutrophils (%) (Auto) 81.2 % (45.0-75.0) H Lymphocytes (%) (Auto) 7.3 % (20.0-45.0) L Monocytes (%) (Auto) 9.3 % (1.0-10.0) Eosinophils (%) (Auto) 1.7 % (0.0-3.0) Basophils (%) (Auto) 0.5 % (0.0-2.0) Sodium Level 145 MMOL/L (136-145) Potassium Level 3.7 MMOL/L (3.5-5.1) Chloride Level 113 MMOL/L (98-107) H Carbon Dioxide Level 27 MMOL/L (21-32) Anion Gap 5 mmol/L (5-15) Blood Urea Nitrogen 24 mg/dL (7-18) H Creatinine 1.1 MG/DL (0.55-1.30) Estimat Glomerular Filtration Rate > 60 mL/min (>60) Glucose Level 97 MG/DL (74-106) Calcium Level 7.6 MG/DL (8.5-10.1) L Current Medications Medications (Trade) Dose Ordered Sig/Aleksander Route PRN Reason Start Time Stop Time Status Last Admin Dose Admin Acetaminophen (Tylenol) 650 mg Q4H PRN NG Temp >100.5 09/10/20 23:15 10/10/20 23:14 09/19/20 21:18 Al Hydroxide/Mg Hydroxide (Mylanta) 30 ml Q4H PRN NG Constipation 09/11/20 00:15 10/10/20 23:14 Albuterol/ Ipratropium (Albuterol/ Ipratropium) 3 ml Q4H PRN HHN Shortness of Breath 09/15/20 16:15 09/20/20 16:14 09/16/20 13:16 Ascorbic Acid (Vitamin C) 250 mg DAILY ORAL 09/18/20 09:00 10/18/20 08:59 09/19/20 10:08 Diphenoxylate HCl/ Atropine (Lomotil) 2.5 mg Q4H PRN ORAL Diarrhea 09/20/20 08:15 10/20/20 08:14 Finasteride (Proscar) 5 mg DAILY ORAL 09/13/20 09:00 12/12/20 08:59 09/19/20 09:49 Furosemide (Lasix) 20 mg DAILY IV 09/20/20 09:00 10/20/20 08:59 Multivitamins (Multivitamins) 1 tab DAILY ORAL 09/18/20 09:00 10/18/20 08:59 09/19/20 09:49 Ondansetron HCl (Zofran) 4 mg Q6H PRN IVP Nausea & Vomiting 09/10/20 23:15 10/10/20 23:14 Pantoprazole (Protonix) 40 mg DAILY IVP 09/11/20 09:00 10/11/20 08:59 09/19/20 09:49 Potassium Chloride (K-Dur) 20 meq DAILY NG 09/20/20 09:00 12/19/20 08:59 Tamsulosin HCl (Flomax) 0.4 mg BEDTIME ORAL 09/12/20 21:00 10/12/20 20:59 09/19/20 21:13 Valproic Acid (Depakene) 1,000 mg BEDTIME NG 09/16/20 21:00 10/31/20 20:59 09/19/20 21:13 Vancomycin HCl (Vanco pharmacy to dose) 1 ea DAILY PRN MISC Per rx protocol 09/16/20 08:45 10/16/20 08:44 Vancomycin HCl 1 gm/Sodium Chloride 275 ml @ 184 mls/hr Q12H IVPB 09/17/20 23:00 09/22/20 22:59 09/19/20 23:03 Zinc Sulfate (Zinc Sulfate) 220 mg DAILY ORAL 09/18/20 09:00 09/28/20 08:59 09/19/20 09:48 Bradley Gil MD Sep 20, 2020 09:38
--- NOTE | 2020-09-20 09:54 | General Progress Note ---
Subjective ROS Limited/Unobtainable: Yes Allergies: Coded Allergies: No Known Allergies (Unverified , 09/10/20) Subjective same back to [facility] lethargic and reduced LOC same congested transferred to ICU Objective Last 24 Hour Vital Signs Date Time Temp Pulse Resp B/P (MAP) Pulse Ox O2 Delivery O2 Flow Rate FiO2 09/20/20 09:30 111/62 (78) 09/20/20 08:00 99.3 58 24 91/53 (66) 93 09/20/20 07:25 95 Nasal Cannula 4.0 36 09/20/20 04:00 98.6 64 18 130/89 (103) 94 09/20/20 04:00 71 09/20/20 04:00 4.0 09/20/20 00:00 62 09/20/20 00:00 98.6 68 22 91/58 (69) 94 09/20/20 00:00 4.0 09/19/20 22:00 98.1 09/19/20 21:00 Venturi Mask 15.0 Venturi Mask 15.0 Venturi Mask 15.0 09/19/20 20:00 56 09/19/20 20:00 99.3 66 22 104/61 (75) 95 09/19/20 20:00 4.0 09/19/20 19:03 96 Nasal Cannula 4.0 36 09/19/20 16:00 98.1 65 24 99/62 (74) 99 09/19/20 16:00 15.0 55 09/19/20 15:14 57 09/19/20 12:00 68 09/19/20 12:00 98.2 63 23 117/67 (84) 99 09/19/20 12:00 15.0 55 Intake and Output 09/19/20 09/20/20 19:00 07:00 Intake Total 1098 ml 1108 ml Output Total 670 ml 600 ml Balance 428 ml 508 ml Free Water 130 ml 200 ml IV Total 368 ml 358 ml Tube Feeding 600 ml 550 ml Output Urine Total 670 ml 600 ml # Bowel Movements 1 1 Laboratory Tests 09/19/20 10:00: Vancomycin Level Trough 16.3H 09/20/20 02:50: White Blood Count 10.8, Red Blood Count 3.15L, Hemoglobin 9.1L, Hematocrit 26.1L , Mean Corpuscular Volume 83, Mean Corpuscular Hemoglobin 28.9, Mean Corpuscular Hemoglobin Concent 34.9, Red Cell Distribution Width 14.3, Platelet Count 190, Mean Platelet Volume 7.9, Neutrophils (%) (Auto) 81.2H, Lymphocytes (%) (Auto) 7.3L, Monocytes (%) (Auto) 9.3, Eosinophils (%) (Auto) 1.7, Basophils (%) (Auto) 0.5, Sodium Level 145, Potassium Level 3.7, Chloride Level 113H, Carbon Dioxide Level 27, Anion Gap 5, Blood Urea Nitrogen 24H, Creatinine 1.1, Estimat Glomerular Filtration Rate > 60, Glucose Level 97, Calcium Level 7.6L Height (Feet): 5 Height (Inches): 7.00 Weight (Pounds): 121 Objective WDWN NAD reduced breath sounds bilaterally with noted rhonchi [id number] without MRG NABS nontender no HSM no CCE nonfocal reduced LOC Assessment/Plan Status: stable Assessment/Plan: IMPRESSION: 1. Acute renal failure. 2. Hypernatremia. 3. Leukocytosis. 4. Possible sepsis. 5. Hypotension. 6. Dementia. 7. Acute on chronic encephalopathy. 8. bcx staph Epi 9. MRSA colonized 10. acute hypoxemic respiratory failure 11. atelectasis/collapse PLAN hydrate- as able PT ID noted; care noted follow up on antibiotics renal follow up monitor oxygen needs monitor need for intubation negative venous US will likely need GT- call gi CANNOT OPTIMIZE, NEEDS TRACH/AIRWAY/GT for chronic care management discussed with consultants and CM impression, plan, and exam edited and reviewed in detail care discussed with Patel Tesfaye MD Sep 20, 2020 09:54
--- NOTE | 2020-09-20 10:33 | NUR ---
FOOD AIDE NOTE SW attempted to call the emergency contact, Lauren Gomez, , not answered and left a vm. This SW left a vm to Lauren and did not receive a call back. TAYLOR spoke w/ Ricardo from [facility] [phone] that pt does not have any family member/next of kin. TAYLOR spoke w/ Detective Sommers from [facility] [phone] that pt is not reported as missing person. TAYLOR spoke w/ Nai from [facility] office [phone] that pt is not conserved.
--- NOTE | 2020-09-20 11:03 | Surgery Progress Note ---
Surgery Progress Note Subjective Symptoms: improved, tolerating diet, passing flatus, BM Objective Last 24 Hour Vital Signs Date Time Temp Pulse Resp B/P (MAP) Pulse Ox O2 Delivery O2 Flow Rate FiO2 09/20/20 09:30 111/62 (78) 09/20/20 08:00 99.3 58 24 91/53 (66) 93 09/20/20 07:25 95 Nasal Cannula 4.0 36 09/20/20 04:00 98.6 64 18 130/89 (103) 94 09/20/20 04:00 71 09/20/20 04:00 4.0 09/20/20 00:00 62 09/20/20 00:00 98.6 68 22 91/58 (69) 94 09/20/20 00:00 4.0 09/19/20 22:00 98.1 09/19/20 21:00 Venturi Mask 15.0 Venturi Mask 15.0 Venturi Mask 15.0 09/19/20 20:00 56 09/19/20 20:00 99.3 66 22 104/61 (75) 95 09/19/20 20:00 4.0 09/19/20 19:03 96 Nasal Cannula 4.0 36 09/19/20 16:00 98.1 65 24 99/62 (74) 99 09/19/20 16:00 15.0 55 09/19/20 15:14 57 09/19/20 12:00 68 09/19/20 12:00 98.2 63 23 117/67 (84) 99 09/19/20 12:00 15.0 55 I&O Intake and Output 09/19/20 09/20/20 19:00 07:00 Intake Total 1098 ml 1108 ml Output Total 670 ml 600 ml Balance 428 ml 508 ml Free Water 130 ml 200 ml IV Total 368 ml 358 ml Tube Feeding 600 ml 550 ml Output Urine Total 670 ml 600 ml # Bowel Movements 1 1 Dressing: dry Wound: clean Cardiovascular: RSR Respiratory: decreased breath sounds Abdomen: non-tender, present bowel sounds Extremities: no edema, no tenderness, no cyanosis Laboratory Tests Test 09/20/20 02:50 White Blood Count 10.8 K/UL (4.8-10.8) Red Blood Count 3.15 M/UL (4.70-6.10) L Hemoglobin 9.1 G/DL (14.2-18.0) L Hematocrit 26.1 % (42.0-52.0) L Mean Corpuscular Volume 83 FL (80-99) Mean Corpuscular Hemoglobin 28.9 PG (27.0-31.0) Mean Corpuscular Hemoglobin Concent 34.9 G/DL (32.0-36.0) Red Cell Distribution Width 14.3 % (11.6-14.8) Platelet Count 190 K/UL (150-450) Mean Platelet Volume 7.9 FL (6.5-10.1) Neutrophils (%) (Auto) 81.2 % (45.0-75.0) H Lymphocytes (%) (Auto) 7.3 % (20.0-45.0) L Monocytes (%) (Auto) 9.3 % (1.0-10.0) Eosinophils (%) (Auto) 1.7 % (0.0-3.0) Basophils (%) (Auto) 0.5 % (0.0-2.0) Sodium Level 145 MMOL/L (136-145) Potassium Level 3.7 MMOL/L (3.5-5.1) Chloride Level 113 MMOL/L (98-107) H Carbon Dioxide Level 27 MMOL/L (21-32) Anion Gap 5 mmol/L (5-15) Blood Urea Nitrogen 24 mg/dL (7-18) H Creatinine 1.1 MG/DL (0.55-1.30) Estimat Glomerular Filtration Rate > 60 mL/min (>60) Glucose Level 97 MG/DL (74-106) Calcium Level 7.6 MG/DL (8.5-10.1) L Plan Problems: (1) Fever Assessment & Plan: maybe developing pneumonia cont abx pulm input thank you (2) Decubitus skin ulcer Assessment & Plan: Patient identified on admission to have multiple scabs on the left arm. mild open scabs with eschar. no drainage. no significant cellulitis. bruising no bilateral extremities noted. no signs of abuse. likely from agitation Sacral coccygeal noted to have a DTI 4.3X2.5CM. which is dark purple . RECOMMEND-CLEAN WITH SALINE, PAT DRY AND APPLY CALAZINE. COVER WITH OPTIFOAM DRESSING. REPLACE EVERY 3 DAYS OR NEEDED LEFT ISCHIUM- STAGE I PRESSURE ULCER MEASURES 4.5X1.7CM. NON-BLANCHABLE ERYTHEMA. RECOMMEND- APPLY CALAZINE AND COVER WITH OPTIFOAM DRESSING. REPLACE EVERY 7 DAYS. 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 Roman is a 70 year old male BIBA to ED of [facility] on 09/10/2020 around 14:00 due to fever. He was found to be hypotensive 91/55 (67), Temp: 100.0, leukocytosis 20.8k and subsequently transferred to ICU for septic shock. The blood culture is reportedly positive for gram positive cocci. NG tube was placed, KUB confirmed the placement to day. Pt is clinically stable with leukocytosis 20.1, improved BUN and creatine, stable hemodynamic without vasopressor. Findings: Mr. Roman is disoriented. He does ot follow commands at this time. Oral cavity is noted to be dried blood concretion likely from NG trauma. No active bleeding site is seen. Due to his level f alertness, already NG tube is in placed, PO trial was not done at this time. Transferred out ICU last night. He is non on tele. Issues: multiple wounds, s.p balaji/nasal/pharyngeal bleeding with blood culture Gram positive cocci leukocytosis trending down from 20k-20k-16k BUN/Creatine trending down from 93/1.9-79/1.3-54/1.1 Temp: 98.1~98.7, Pulse: 62~72, BP: 105/67~120/48, SPO2 98~100% on 2 liter S: Oral cavity is better condition comparison to yesterday. The mucosa is severely erythema without active bleeding. Limited level of alertness for direct therapy. NG in placed O: 1. Laryngeal palpation to trigger spontaneous cough and swallow: Pt triggered cough with laryngeal palpation. Approximately 5~10 seconds after coughing, he triggered swallow. based on this observation, he presents with copious secretion in pharynx and larynx. He continued to have poor secretion management at laryngeal level at this time. NO PO trial was given due to poor secretion at the level of air way with low level of alertness. A: 1. Probable aspiration of his own secretion with poor ability to cough and swallow 2. Dysphagia P: 1. NPO for now 2. Observe his secretion, and level of alertness for PO readiness. DAILY ESTIMATED NEEDS: Needs based on Wound, underweight/ 55kg 30-35 kcals/kg 7718-2984 total kcals 1.25-2 g protein/kg 69-110 g total protein 25-30 mL/kg 0424-2129 total fluid mLs NUTRITION DIAGNOSIS: Increased kcal/prot needs R/T wound healing and underweight status as evidenced by pt admitted w/ wounds including DTI 2 coccyx and stage 1 @ lt ischium, pt @ 73% IBW w/ low BMI per guidelines, s/p NGT insertion, on NGT feeds. CURRENT TF:Jevity 1.2 @ 50ml/hr x 24 hrs ENTERAL NUTRITION RECOMMENDATIONS: Jevity 1.2 @ 60ml/hr x 24 hrs to provide 1440ml, 1728kcal, 80g prot, 1160ml f ree water * As medically appropriate, increase goal rate to 60ml/hr x 24 hrs to meet 100% est kcal/prot needs * HOB over 30 degrees/ without IVF, H2O flush of 100ml q 8hrs ADDITIONAL RECOMMENDATIONS: * Calibrated daily bedscale wt Per SNF: HT=70" * Wound healing: TF rec @ goal will provide 100% RDI add Vit C 250mg QD, ZnSO4 220mg QD x 10days, Davidson BID via NGT * Monitor BGs, need for NISS w/ TF * Monitor lytes, replete as needed- high risk for refeeding syndrome -> check f/up phos and mag (4) Severe sepsis (5) Open upper arm wound (6) Hematuria Assessment & Plan: as per urology Aubrey Gutierrez Sep 20, 2020 11:03
[2020-09-20] MEDS: Vancomycin 1 GM in NS 275 ML IVPB SCH ×2 (11:30→22:58)
[2020-09-20 12:00] VITALS: BP 120/76
--- NOTE | 2020-09-20 12:17 | NUR ---
*-*DISCHARGE PLANNED*-* PATIENT HAS BEEN ACCEPTED AND WILL BE DISCHARGED TO: [facility] P: [phone] FOR NURSE TO NURSE REPORT ROOM# 40.A [facility] TRANSP[facility]ATION SET FOR 1:30PM S/W RONALDO [id number]. Addendum: 09/20/20 at 1505 by MICHAELA SHERIDAN CM DISREGARD ABOVE NOTE
[2020-09-20] MEDS ORDERED: Tubing IV Secondary IV ONE (14:17)
[2020-09-20] MEDS ORDERED: NS Irrig 1000ml ONE (14:17)
[2020-09-20 16:00] VITALS: BP 90/58
--- NOTE | 2020-09-20 16:24 | NUR ---
*-*DISCHARGE PLANNED*-* PATIENT HAS BEEN ACCEPTED TO: [facility] P: [phone] ROOM# 40.A
[2020-09-20] MEDS: Acetaminophen 650mg/20.3ml NG PRN (18:53)
--- NOTE | 2020-09-20 19:18 | NUR ---
NURSE HAND-OFF REPORT: Important Events on Shift: pt. was desating with nasal cannula, changed to venturi mask 14L Fio2 55%. o2 saturation improved to 96%. notified nurse wounds on bilateral ears. pt had a fever see vital signs. controlled with acetaminophen, temperature reassessed improved to WNL. Patient Status: [full code] Diet: [gtube] Pending Orders: [] Pending Results/Labs:[] Pending MD notification:[] Latest Vital Signs: Temperature 101.5 , Pulse 75 , B/P 90 /58 , Respiratory Rate 33 , O2 SAT 93 , Venturi Mask, O2 Flow Rate 14.0 . Vital Sign Comment: [] EKG Rhythm: Sinus Rhythm Rhythm change?: N MD Notified?: Y Maria R Rios MD Response: Latest Schultz Fall Score: 70 Fall Risk: High Risk Safety Measures: Call light Within Reach, Bed Alarm Zone 1, Side Rails Side Rails x3, Bed position Low and Locked. Fall Precautions: Y Yellow Socks Y Door Sign Patient Fall Education Report given to [Jason/ RN].
--- NOTE | 2020-09-20 19:29 | NUR ---
NURSE NOTES: Report received from ARTEMIO Phillips. Observed pt lying in the bed, obtunded, no sings of pain noted. 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 On Venturi mask 14, 55%. Fever noted from previous shift, now 99 noted. NGT on R N, intact, running Jevity 1.2 at 50cc/hr. Rectal tube intact, brown liquid stool noted. F/C intact, yellow urine noted. IV on R FA 20G, SL, asymptomatic. L FA 20G, SL, asymptomatic. Bed in the lowest position. Side rails up x3, and padded. Will continue to monitor.
[2020-09-20] MEDS: Valproic Acid 250mg/5ml Liquid NG SCH (21:10)
[2020-09-20] MEDS: Tamsulosin 0.4mg cap ORAL SCH (21:10)
--- NOTE | 2020-09-20 22:10 | NUR ---
NURSE NOTES: Received report from ARTEMIO Chavez. Pt is seen lying in bed on venturi mask o2 sat- 92-94%. Pt not in respiratory distress. No pain noted at this time. Pt on NGT on Right nares intact flushing and patent. Bed in lowest position. Restraints on- with no skin breakdown. Continue to plan of care.
--- NOTE | 2020-09-20 22:25 | NUR ---
HAND-OFF: Report given to ARTEMIO Dougherty. No aucte distress at this time. VS WNL. On venturi 14L, no sob noted. SR on monitor. Endorsed plan of care.
--- NOTE | 2020-09-20 23:10 | NUR ---
NURSE NOTES: Suctioned Secretions per RT.
--- NOTE | 2020-09-20 23:56 | Cardiology Progress Note ---
Subjective DATE OF SERVICE: Sep 20, 1930 Remains congested, with SOB on high flow mask. Episodically pulls off mask. Diarrhea noted; CDiff negative. BP tenuous and low at times. Monitor: sinus rhythm; no significant bradycardia. CXR (09/17) persisting left consolidation with new right atelectasis/infiltr ABG: (09/19/20) 7.49/31/74 Objective Last 24 Hour Vital Signs Date Time Temp Pulse Resp B/P (MAP) Pulse Ox O2 Delivery O2 Flow Rate FiO2 09/20/20 20:00 Venturi Mask 14.0 Venturi Mask 14.0 Venturi Mask 14.0 09/20/20 19:36 94 Venturi Mask 14.0 55 09/20/20 19:25 76 09/20/20 19:23 98.1 09/20/20 19: 98.1 09/20/20 16:00 75 09/20/20 16:00 Venturi Mask 14.0 Venturi Mask 14.0 Venturi Mask 14.0 09/20/20 16:00 101.5 72 33 90/58 (69) 09/20/20 13:47 93 Venturi Mask 14.0 55 09/20/20 12:00 75 09/20/20 12:00 Venturi Mask 14.0 Venturi Mask 14.0 Venturi Mask 14.0 09/20/20 12:00 96.3 24 120/76 (91) 94 09/20/20 09:30 111/62 (78) 09/20/20 09:00 Venturi Mask 14.0 Venturi Mask 14.0 Venturi Mask 14.0 09/20/20 08:00 66 09/20/20 08:00 99.3 58 24 91/53 (66) 93 09/20/20 07:25 95 Nasal Cannula 4.0 36 09/20/20 04:00 98.6 64 18 130/89 (103) 94 09/20/20 04:00 71 09/20/20 04:00 4.0 09/20/20 00:00 62 09/20/20 00:00 98.6 68 22 91/58 (69) 94 09/20/20 00:00 4.0 ROS: no change from my evaluation of 09/10/20. HEENT: normal ENT inspection RHYTHM: NSR, ST LUNGS: bilat. rhonchi and rales CARDIAC: normal rate, regular rhythm, normal S1 and S2 ABDOMEN: normal bowel sounds, soft, other - sacral decub EXTREMITIES: No edema Laboratory Tests Test 09/20/20 02:50 White Blood Count 10.8 K/UL (4.8-10.8) Red Blood Count 3.15 M/UL (4.70-6.10) L Hemoglobin 9.1 G/DL (14.2-18.0) L Hematocrit 26.1 % (42.0-52.0) L Mean Corpuscular Volume 83 FL (80-99) Mean Corpuscular Hemoglobin 28.9 PG (27.0-31.0) Mean Corpuscular Hemoglobin Concent 34.9 G/DL (32.0-36.0) Red Cell Distribution Width 14.3 % (11.6-14.8) Platelet Count 190 K/UL (150-450) Mean Platelet Volume 7.9 FL (6.5-10.1) Neutrophils (%) (Auto) 81.2 % (45.0-75.0) H Lymphocytes (%) (Auto) 7.3 % (20.0-45.0) L Monocytes (%) (Auto) 9.3 % (1.0-10.0) Eosinophils (%) (Auto) 1.7 % (0.0-3.0) Basophils (%) (Auto) 0.5 % (0.0-2.0) Sodium Level 145 MMOL/L (136-145) Potassium Level 3.7 MMOL/L (3.5-5.1) Chloride Level 113 MMOL/L (98-107) H Carbon Dioxide Level 27 MMOL/L (21-32) Anion Gap 5 mmol/L (5-15) Blood Urea Nitrogen 24 mg/dL (7-18) H Creatinine 1.1 MG/DL (0.55-1.30) Estimat Glomerular Filtration Rate > 60 mL/min (>60) Glucose Level 97 MG/DL (74-106) Calcium Level 7.6 MG/DL (8.5-10.1) L Microbiology Date/Time Source Procedure Growth Status 09/18/20 18:30 Stool Clostridium difficile Toxin Assay - Final Complete 09/18/20 03:50 Sputum Gram Stain - Final Complete 09/18/20 03:50 Sputum Culture - Final Staphylococcus Aureus - Mrsa Complete Assessment/Plan Assessment/Plan Sepsis Leukocytosis Probable new aspiration PNA Recovering shock Diarrhea Dehydration/hypernatremia corrected. Likely congestion due to aspiration Acute myocardial ischemia Acute renal failure HC assoc PNA UTI CVA/dementia Sinus bradycardia, asymptomatic Acute diastolic CHF Remains CRITICAL & GUARDED Diuresis held, in view of diarrheal fluid losses and episodic low BP. Antimicrobials per ID. Replace lytes as needed. DVT prophyl Cardiac monitoring Madi Rios MD Sep 20, 2020 23:56
[2020-09-21] VITALS (17 sets, daily range): BP systolic 91–120; BP diastolic 58–86
--- NOTE | 2020-09-21 | NUR ---
NURSE NOTES: Sponge bath given, cleaned pt. Noted brown stool. No hematuria noted in urinary cath. No pain noted. O2 sat- 98%.
[2020-09-21] MEDS: Acetaminophen 650mg/20.3ml NG PRN ×2 (00:20→19:20)
--- NOTE | 2020-09-21 04:00 | NUR ---
NURSE NOTES: Pt is seen in lying in bed, repositioned pt. Pt is restless and keep dangling in bed on restraints on with no skin breakdown, o2 sat- 93-94%. Bed in lowest position. Call light within reach. Continue to plan of care.
[2020-09-21 05:24] LABS: HEMATOCRIT 28.8 % (42.0-52.0); MEAN CORPUSCULAR VOLUME 84 FL (80-99); PLATELET COUNT 203 K/UL (150-450); RED BLOOD COUNT 3.43 M/UL (4.70-6.10); RED CELL DISTRIBUTION WIDTH 14.2 % (11.6-14.8); WHITE BLOOD COUNT 18.5 K/UL (4.8-10.8)
[2020-09-21 06:04] LABS: ANION GAP 5 mmol/L (5-15); BLOOD UREA NITROGEN 27 mg/dL (7-18); CALCIUM 7.5 MG/DL (8.5-10.1); CARBON DIOXIDE 28 MMOL/L (21-32); CHLORIDE 112 MMOL/L (98-107); SODIUM 145 MMOL/L (136-145)
--- NOTE | 2020-09-21 06:30 | NUR ---
NURSE NOTES: Spoke to Dr. Layne that pt not tolerating venturi mask o2 sat low 90's to 89. Ordered Stat ABG and Applied Non rebreather at 15L. Continue to plan of care. repositioned pt.
--- NOTE | 2020-09-21 06:31 | NUR ---
NURSE NOTES: Dr. Layne made aware WBC is trending up to 18.5. NNO at this time.
--- NOTE | 2020-09-21 07:17 | NUR ---
NURSE HAND-OFF REPORT: Important Events on Shift: Venturi mask not tolerating well, upgraded to NRB UO -300ml But cant give diuretic per Dr. Espinosa episodic low BP - Dr. Layne aware. Patient Status: Guarding Diet: GTF Pending Orders: None Pending Results/Labs: ABG Pending MD notification: None Latest Vital Signs: Temperature 98.4 , Pulse 83 , B/P 106 /61 , Respiratory Rate 23 , O2 SAT 93 , Venturi Mask, O2 Flow Rate 14.0 . Vital Sign Comment: WNL EKG Rhythm: SR with PAC Rhythm change?: N MD Notified?: Y -Dr. Gabriel BENITEZ Response: Latest Schultz Fall Score: 70 Fall Risk: High Risk Safety Measures: Call light Within Reach, Bed Alarm Zone 1, Side Rails Side Rails x3, Bed position Low and Locked. Fall Precautions: Yellow Socks Door Sign Patient Fall Education Report given to [ARTEMIO Sotomayor].
--- NOTE | 2020-09-21 07:30 | NUR ---
NURSE NOTES: Received p from ARTEMIO Dougherty, pt is sleeping and confused, pt has nonrebreather mask with 15lit O2 RR 40, RT is aware and Dr Villasenor is aware with NNO. Pt is on continues heart monitoring. pt has intact ic access RFA 20G and LFA 22G SL. Pt has Rae cath in place is working well. pt has rectal tube in place is working well. pt has NGT in place is working well. all needs attended, bed is locked and is in the lowest position, call light within easy reach. will continue to monitor.
--- NOTE | 2020-09-21 07:36 | General Progress Note ---
Subjective ROS Limited/Unobtainable: No Constitutional: Reports: malaise, weakness HEENT: Reports: no symptoms Cardiovascular: Reports: edema Respiratory: Reports: shortness of breath, sputum Gastrointestinal/Abdominal: Reports: difficulty swallowing Genitourinary: Reports: no symptoms Neurologic/Psychiatric: Reports: pre-existing deficit Endocrine: Reports: no symptoms Hematologic/Lymphatic: Reports: anemia Allergies: Coded Allergies: No Known Allergies (Unverified , 09/10/20) All Systems: reviewed and negative except above Subjective increased sob and congestion. poor uop. +diarrhea. now on nrb. low grade temps. on iv abx. Bp on the low side Objective Last 24 Hour Vital Signs Date Time Temp Pulse Resp B/P (MAP) Pulse Ox O2 Delivery O2 Flow Rate FiO2 09/21/20 06:35 Venturi Mask 14.0 Non-Rebreather 15.0 Venturi Mask 14.0 09/21/20 06:29 15.0 09/21/20 04:00 98.4 71 23 106/61 (76) 93 71 09/21/20 04:00 83 09/21/20 04:00 Venturi Mask 14.0 Venturi Mask 14.0 Venturi Mask 14.0 09/21/20 00:00 86 09/21/20 00:00 100.0 90 24 119/86 (97) 98 97 09/21/20 00:00 Venturi Mask 14.0 Venturi Mask 14.0 Venturi Mask 14.0 09/20/20 20:00 Venturi Mask 14.0 Venturi Mask 14.0 Venturi Mask 14.0 09/20/20 19:36 94 Venturi Mask 14.0 55 09/20/20 19:25 76 09/20/20 19:23 98.1 09/20/20 19:23 98.1 09/20/20 16:00 75 09/20/20 16:00 Venturi Mask 14.0 Venturi Mask 14.0 Venturi Mask 14.0 09/20/20 16:00 101.5 72 33 90/58 (69) 09/20/20 13:47 93 Venturi Mask 14.0 55 09/20/20 12:00 75 09/20/20 12:00 Venturi Mask 14.0 Venturi Mask 14.0 Venturi Mask 14.0 09/20/20 12:00 96.3 24 120/76 (91) 94 09/20/20 09:30 111/62 (78) 09/20/20 09:00 Venturi Mask 14.0 Venturi Mask 14.0 Venturi Mask 14.0 09/20/20 08:00 66 09/20/20 08:00 99.3 58 24 91/53 (66) 93 Intake and Output 09/20/20 09/21/20 19:00 07:00 Intake Total 150 ml 1018 ml Output Total 825 ml 310 ml Balance -675 ml 708 ml Free Water 50 ml 100 ml IV Total 368 ml Tube Feeding 100 ml 550 ml Output Urine Total 825 ml 310 ml # Bowel Movements 3 4 Laboratory Tests 09/21/20 02:45: White Blood Count 18.5#H, Red Blood Count 3.43L, Hemoglobin 10.0L, Hematocrit 28.8L, Mean Corpuscular Volume 84, Mean Corpuscular Hemoglobin 29.1, Mean Corpuscular Hemoglobin Concent 34.7, Red Cell Distribution Width 14.2, Platelet Count 203, Mean Platelet Volume 7.4, Neutrophils (%) (Auto) , Lymphocytes (%) (Auto) , Monocytes (%) (Auto) , Eosinophils (%) (Auto) , Basophils (%) (Auto) , Neutrophils % (Manual) [Pending], Lymphocytes % (Manual) [Pending], Platelet Estimate [Pending], Platelet Morphology [Pending], Sodium Level 145, Potassium Level 4.0, Chloride Level 112H, Carbon Dioxide Level 28, Anion Gap 5, Blood Urea Nitrogen 27H, Creatinine 1.0, Estimat Glomerular Filtration Rate > 60, Glucose Level 99, Calcium Level 7.5L, Magnesium Level 2.2, Pro-B-Type Natriuretic Peptide 3092H Height (Feet): 5 Height (Inches): 7.00 Weight (Pounds): 121 Objective General Appearance: WD/WN, confused EENT: normal ENT inspection Neck: normal alignment, supple Cardiovascular: normal rate, regular rhythm Respiratory/Chest: rhonchi - bilaterally Abdomen: normal bowel sounds, non tender, soft, no organomegaly Edema: no edema noted Leg (L), no edema noted Leg (R) 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, responsive, disoriented Lymphatic: normal anterior cervical (L), normal anterior cervical (R), normal posterior cervical (L), normal posterior cervical (R) Assessment/Plan Problem List: (1) PNA (pneumonia) ICD Codes: J18.9 - Pneumonia, unspecified organism SNOMED: 480888302 (2) UTI (urinary tract infection) ICD Codes: N39.0 - Urinary tract infection, site not specified SNOMED: 00474943 (3) Fever ICD Codes: R50.9 - Fever, unspecified SNOMED: 443978818 (4) Decubitus skin ulcer ICD Codes: L89.90 - Pressure ulcer of unspecified site, unspecified stage SNOMED: 222790246 (5) Malnutrition ICD Codes: E46 - Unspecified protein-calorie malnutrition SNOMED: 31905281 (6) Severe sepsis ICD Codes: A41.9 - Sepsis, unspecified organism; R65.20 - Severe sepsis without septic shock SNOMED: 31412772 (7) Hematuria ICD Codes: R31.9 - Hematuria, unspecified SNOMED: 23641710 Status: stable Assessment/Plan: iv abx per id follow up cultures scd lomotil for diarrhea resp care wean o2 suctioning as needed lasix x 1 check abg monitor cxr guarded Jason Layne MD Sep 21, 2020 07:36
[2020-09-21] MEDS: Zinc Sulfate 220mg ORAL SCH (08:08)
[2020-09-21] MEDS: Ascorbic Acid 500mg tab ORAL SCH (08:09)
[2020-09-21] MEDS: Pantoprazole Inj IVP SCH (08:09)
--- NOTE | 2020-09-21 08:17 | Urology Progress Note ---
Assessment/Plan Status: stable Assessment/Plan: 1. Gross hematuria. 2. Pyuria and possible UTI. 3. Proteinuria. 4. BPH. 5. Urinary retention. 6. Probable neurogenic bladder. 7. Possible sepsis. monitor clinically maintain andrade hand irrigated and do PRN abx as ordered flomax and proscar added cysto electively voiding trial at some point? f/u on last blood cx Subjective Allergies: Coded Allergies: No Known Allergies (Unverified , 09/10/20) Subjective non-verbal Objective Last 24 Hour Vital Signs Date Time Temp Pulse Resp B/P (MAP) Pulse Ox O2 Delivery O2 Flow Rate FiO2 09/21/20 06:35 Venturi Mask 14.0 Non-Rebreather 15.0 Venturi Mask 14.0 09/21/20 06:29 15.0 09/21/20 04:00 98.4 71 23 106/61 (76) 93 71 09/21/20 04:00 83 09/21/20 04:00 Venturi Mask 14.0 Venturi Mask 14.0 Venturi Mask 14.0 09/21/20 00:00 86 09/21/20 00:00 100.0 90 24 119/86 (97) 98 97 09/21/20 00:00 Venturi Mask 14.0 Venturi Mask 14.0 Venturi Mask 14.0 09/20/20 20:00 Venturi Mask 14.0 Venturi Mask 14.0 Venturi Mask 14.0 09/20/20 19:36 94 Venturi Mask 14.0 55 09/20/20 19:25 76 09/20/20 19:23 98.1 09/20/20 19:23 98.1 09/20/20 16:00 75 09/20/20 16:00 Venturi Mask 14.0 Venturi Mask 14.0 Venturi Mask 14.0 09/20/20 16:00 101.5 72 33 90/58 (69) 09/20/20 13:47 93 Venturi Mask 14.0 55 09/20/20 12:00 75 09/20/20 12:00 Venturi Mask 14.0 Venturi Mask 14.0 Venturi Mask 14.0 09/20/20 12:00 96.3 24 120/76 (91) 94 09/20/20 09:30 111/62 (78) 09/20/20 09:00 Venturi Mask 14.0 Venturi Mask 14.0 Venturi Mask 14.0 Intake and Output 09/20/20 09/21/20 19:00 07:00 Intake Total 150 ml 1018 ml Output Total 825 ml 310 ml Balance -675 ml 708 ml Free Water 50 ml 100 ml IV Total 368 ml Tube Feeding 100 ml 550 ml Output Urine Total 825 ml 310 ml # Bowel Movements 3 4 Microbiology Date/Time Source Procedure Growth Status 09/18/20 18:30 Stool Clostridium difficile Toxin Assay - Final Complete 09/18/20 03:50 Sputum Gram Stain - Final Complete 09/18/20 03:50 Sputum Culture - Final Staphylococcus Aureus - Mrsa Complete 09/17/20 12:58 Blood Blood Culture - Preliminary NO GROWTH AFTER 72 HOURS Resulted 09/10/20 20:05 Urine,Clean Catch Urine Culture - Final NO GROWTH AFTER 48 HOURS Complete 09/10/20 17:15 Rectum VRE Culture - Final Enterococcus Faecalis - Vre Complete Current Medications Medications (Trade) Dose Ordered Sig/Aleksander Route PRN Reason Start Time Stop Time Status Last Admin Dose Admin Acetaminophen (Tylenol) 650 mg Q4H PRN NG Temp >100.5 09/10/20 23:15 10/10/20 23:14 09/21/20 00:20 Al Hydroxide/Mg Hydroxide (Mylanta) 30 ml Q4H PRN NG Constipation 09/11/20 00:15 10/10/20 23:14 Ascorbic Acid (Vitamin C) 250 mg DAILY ORAL 09/18/20 09:00 10/18/20 08:59 09/21/20 08:09 Diphenoxylate HCl/ Atropine (Lomotil) 2.5 mg Q4H PRN ORAL Diarrhea 09/20/20 08:15 10/20/20 08:14 Finasteride (Proscar) 5 mg DAILY ORAL 09/13/20 09:00 12/12/20 08:59 09/21/20 08:09 Furosemide (Lasix) 20 mg ONCE IV 09/21/20 07:45 09/21/20 08:45 09/21/20 08:08 Multivitamins (Multivitamins) 1 tab DAILY ORAL 09/18/20 09:00 10/18/20 08:59 09/21/20 08:08 Ondansetron HCl (Zofran) 4 mg Q6H PRN IVP Nausea & Vomiting 09/10/20 23:15 10/10/20 23:14 Pantoprazole (Protonix) 40 mg DAILY IVP 09/11/20 09:00 10/11/20 08:59 09/21/20 08:09 Tamsulosin HCl (Flomax) 0.4 mg BEDTIME ORAL 09/12/20 21:00 10/12/20 20:59 09/20/20 21:10 Valproic Acid (Depakene) 1,000 mg BEDTIME NG 09/16/20 21:00 10/31/20 20:59 09/20/20 21:10 Vancomycin HCl (Vanco pharmacy to dose) 1 ea DAILY PRN MISC Per rx protocol 09/16/20 08:45 10/16/20 08:44 Vancomycin HCl 1 gm/Sodium Chloride 275 ml @ 184 mls/hr Q12H IVPB 09/17/20 23:00 09/22/20 22:59 09/20/20 22:58 Zinc Sulfate (Zinc Sulfate) 220 mg DAILY ORAL 09/18/20 09:00 09/28/20 08:59 09/21/20 08:08 Laboratory Tests 09/21/20 02:45: White Blood Count 18.5#H, Red Blood Count 3.43L, Hemoglobin 10.0L, Hematocrit 28.8L, Mean Corpuscular Volume 84, Mean Corpuscular Hemoglobin 29.1, Mean Corpuscular Hemoglobin Concent 34.7, Red Cell Distribution Width 14.2, Platelet Count 203, Mean Platelet Volume 7.4, Neutrophils (%) (Auto) , Lymphocytes (%) (Auto) , Monocytes (%) (Auto) , Eosinophils (%) (Auto) , Basophils (%) (Auto) , Neutrophils % (Manual) [Pending], Lymphocytes % (Manual) [Pending], Platelet Estimate [Pending], Platelet Morphology [Pending], Sodium Level 145, Potassium Level 4.0, Chloride Level 112H, Carbon Dioxide Level 28, Anion Gap 5, Blood Urea Nitrogen 27H, Creatinine 1.0, Estimat Glomerular Filtration Rate > 60, Glucose Level 99, Calcium Level 7.5L, Magnesium Level 2.2, Pro-B-Type Natriuretic Peptide 3092H Height (Feet): 5 Height (Inches): 7.00 Weight (Pounds): 121 Objective exam stable urine clearing Levi Brunson MD Sep 21, 2020 08:17
--- NOTE | 2020-09-21 08:59 | NUR ---
NURSE NOTES: Dr Villasenor visited pt and saw pt condition is deteriorating, ordered stat ABG, noted and carried out, RT is aware. will continue to monitor.
--- NOTE | 2020-09-21 09:08 | NUR ---
NURSE NOTES: ABG done and the results sent to Dr Villasenor, ordered transfer pt to ICU, TAYLOR Brennan is aware. will continue to monitor.
--- NOTE | 2020-09-21 09:46 | NUR ---
RD ASSESSMENT & RECOMMENDATIONS SEE CARE ACTIVITY FOR COMPLETE ASSESSMENT DAILY ESTIMATED NEEDS: Needs based on Wound, underweight/ 55kg 30-35 kcals/kg 9521-9224 total kcals 1.25-2 g protein/kg 69-110 g total protein 25-30 mL/kg 1279-6088 total fluid mLs NUTRITION DIAGNOSIS: Increased kcal/prot needs R/T wound healing and underweight status a as evidenced by pt admitted w/ wounds including DTI 2 coccyx and stage 1 @ lt ischium, pt @ 73% IBW w/ low BMI per guidelines, s/p NGT insertion, on NGT feeds. CURRENT TF:Jevity 1.2 @ 50ml/hr x 24 hrs ENTERAL NUTRITION RECOMMENDATIONS: Jevity 1.2 @ 60ml/hr x 24 hrs to provide 1440ml, 1728kcal, 80g prot, 1160ml free water * As medically appropriate, increase goal rate to 60ml/hr x 24 hrs to meet 100% est kcal/prot needs * HOB over 30 degrees/ water flush per MD ADDITIONAL RECOMMENDATIONS: * Calibrated daily bedscale wt Per SNF: HT=70" * Wound healing: TF rec @ goal will provide 100% RDI Continue Vit C and ZnSO4, add Davidson BID via NGT * Monitor lytes, replete as needed (check f/up phos) * Monitor hydration status: BUN trending up, rec increasing H2O flushes .
--- NOTE | 2020-09-21 10:05 | NUR ---
RESPIRATORY NOTE: Pt intubated at 0949 with a 7.5 ETT secured with an anchor fast 23cm at the lip line. Ventilator settings AC 18, 500, +5, 100% fio2. Spo2 90% on current settings. Bilateral b/s are clear/diminished with equal chest rise. SXN small amounts of white/yellow secretions. No s/s of distress noted at this time. Vent is plugged into red outlet. Alarms are on and audible. Ambu bag at bedside. Will continue to monitor and follow plan of care.
--- NOTE | 2020-09-21 10:31 | NUR ---
NURSE NOTES: pt is intubated by Dr Zazueta, the first attempt the ETT wasn't is place and SPO2 dropped to 0, CODE BLUE called but pt had pulse, no resuscitation done, with second attempt SPO2 increased to 90% with BP 116/61 HR 112, pt transferred to ICU bed K.
--- NOTE | 2020-09-21 10:40 | NUR ---
NURSE NOTES: Report given to ARTEMIO Arnold, endorsed plan of care, SPO2 93 HR 100.
--- NOTE | 2020-09-21 10:41 | NUR ---
NURSE NOTES: Pt received from ARTEMIO Syed. Pt transferred from [facility] s/p intubation d/t respiratory failure (pt observed with labored breathing on non-rebreather prior to arrival to ICU - spO2 in the 70-80s - RR in the 40s). Pt received comtaose/ non-responsive - unable to follow commands - bilat pupils equal and round - 4mm with brisk rxn to light - gag reflex is intact. Pt take off restraints at this time. Pt placed on telemetry monitor - noted tachycardic with HR in the 120s - normotensive - axillary temp 99.5 F. Radial and dorsalis pedis pulses 2+ - 3+ pitting edema noted to left hand and 1+ pitting edema to right hand and feet. Cap refill is less than 2 sec. Pt is warm to touch. Pt is orally intubated with a 7.5 ETT noted 23cm at the lip with the following settings per Dr Villasenor: AC 18 TV 500 FiO2 100% Peep 10 - pt breathing over vent at a rate of 30s at this time - endotracheally suctioned per RT. Bilat upper lung sounds noted with rhonchi and lower lobes noted diminished upon auscultation. STAT CXR order obtained for ETT placement confirmation. Pt has a right naris NGT clamped at this time - feeding held pending clearance to resume from Dr Villasenor. Bowel sounds active to all quadrants. Abdomen is round and soft. Rectal tube ntoed draining dark brown, [id number] stool. F/C noted draining yellow, clear urine. Skin alterations noted. Pt has a RFA and LFA 20g IVs saline-locked. Pt has no belongings. Bed in lowest position, alarm on, side rails up x 2, call light within reach. Will continue to monitor.
--- NOTE | 2020-09-21 10:45 | NUR ---
NURSE NOTES: SCDs on BLE.
--- NOTE | 2020-09-21 11:45 | NUR ---
RESPIRATORY NOTE: PEEP increased to +10 per MD order. Catalina ULLOA Bedside. Will continue to monitor and follow plan of care.
[2020-09-21] MEDS: Vancomycin 1 GM in NS 275 ML IVPB SCH ×2 (11:52→23:01)
--- NOTE | 2020-09-21 11:54 | Infectious Diseases Prog Note ---
Assessment/Plan Assessment/Plan antibiotics : vancomycin iv A 1. MRSA Pneumonia COVID-19 test is negative. 2. Dementia. 3. Leukocytosis increased 4. Urinary tract infection 5. + blood cultures with coag neg staph likely contaminated 6. respiratory failure P 1. continue vancomycin iv 2. start zosyn 3. will follow up cultures Subjective ROS Limited/Unobtainable: Yes Allergies: Coded Allergies: No Known Allergies (Unverified , 09/10/20) Objective Last 24 Hour Vital Signs Date Time Temp Pulse Resp B/P (MAP) Pulse Ox O2 Delivery O2 Flow Rate FiO2 09/21/20 08:00 96.4 88 40 118/71 (87) 93 09/21/20 08:00 Non-Rebreather 15.0 Non-Rebreather 15.0 Non-Rebreather 15.0 09/21/20 07:59 80 09/21/20 07:58 94 Venturi Mask 14.0 55 09/21/20 06:35 Venturi Mask 14.0 Non-Rebreather 15.0 Venturi Mask 14.0 09/21/20 06:29 15.0 09/21/20 04:00 98.4 71 23 106/61 (76) 93 71 09/21/20 04:00 83 09/21/20 04:00 Venturi Mask 14.0 Venturi Mask 14.0 Venturi Mask 14.0 09/21/20 00:00 86 09/21/20 00:00 100.0 90 24 119/86 (97) 98 97 09/21/20 00:00 Venturi Mask 14.0 Venturi Mask 14.0 Venturi Mask 14.0 09/20/20 20:00 Venturi Mask 14.0 Venturi Mask 14.0 Venturi Mask 14.0 09/20/20 19:36 94 Venturi Mask 14.0 55 09/20/20 19:25 76 09/20/20 19:23 98.1 09/20/20 19:23 98.1 09/20/20 16:00 75 09/20/20 16:00 Venturi Mask 14.0 Venturi Mask 14.0 Venturi Mask 14.0 09/20/20 16:00 101.5 72 33 90/58 (69) 09/20/20 13:47 93 Venturi Mask 14.0 55 09/20/20 12:00 75 09/20/20 12:00 Venturi Mask 14.0 Venturi Mask 14.0 Venturi Mask 14.0 09/20/20 12:00 96.3 24 120/76 (91) 94 Height (Feet): 5 Height (Inches): 7.00 Weight (Pounds): 121 HEENT: other - intubated Respiratory/Chest: lungs clear Cardiovascular: normal rate, regular rhythm, no gallop/murmur Abdomen: soft, non tender Extremities: other - + edema bilaterally Microbiology Date/Time Source Procedure Growth Status 09/18/20 18:30 Stool Clostridium difficile Toxin Assay - Final Complete Laboratory Tests Test 09/21/20 02:45 09/21/20 08:48 White Blood Count 18.5 K/UL (4.8-10.8) #H Red Blood Count 3.43 M/UL (4.70-6.10) L Hemoglobin 10.0 G/DL (14.2-18.0) L Hematocrit 28.8 % (42.0-52.0) L Mean Corpuscular Volume 84 FL (80-99) Mean Corpuscular Hemoglobin 29.1 PG (27.0-31.0) Mean Corpuscular Hemoglobin Concent 34.7 G/DL (32.0-36.0) Red Cell Distribution Width 14.2 % (11.6-14.8) Platelet Count 203 K/UL (150-450) Mean Platelet Volume 7.4 FL (6.5-10.1) Neutrophils (%) (Auto) % (45.0-75.0) Lymphocytes (%) (Auto) % (20.0-45.0) Monocytes (%) (Auto) % (1.0-10.0) Eosinophils (%) (Auto) % (0.0-3.0) Basophils (%) (Auto) % (0.0-2.0) Differential Total Cells Counted 100 Neutrophils % (Manual) 90 % (45-75) H Lymphocytes % (Manual) 5 % (20-45) L Monocytes % (Manual) 5 % (1-10) Eosinophils % (Manual) 0 % (0-3) Basophils % (Manual) 0 % (0-2) Band Neutrophils 0 % (0-8) Platelet Estimate Adequate Platelet Morphology Normal Hypochromasia 1+ Sodium Level 145 MMOL/L (136-145) Potassium Level 4.0 MMOL/L (3.5-5.1) Chloride Level 112 MMOL/L (98-107) H Carbon Dioxide Level 28 MMOL/L (21-32) Anion Gap 5 mmol/L (5-15) Blood Urea Nitrogen 27 mg/dL (7-18) H Creatinine 1.0 MG/DL (0.55-1.30) Estimat Glomerular Filtration Rate > 60 mL/min (>60) Glucose Level 99 MG/DL (74-106) Calcium Level 7.5 MG/DL (8.5-10.1) L Magnesium Level 2.2 MG/DL (1.8-2.4) Pro-B-Type Natriuretic Peptide 3092 pg/mL (0-125) H Arterial Blood pH 7.489 (7.350-7.450) Arterial Blood Partial Pressure CO2 34.5 mmHg (35.0-45.0) L Arterial Blood Partial Pressure O2 52.0 mmHg (75.0-100.0) L Arterial Blood HCO3 25.6 mmol/L (22.0-26.0) Arterial Blood Oxygen Saturation 88.5 % (95-100) *L Arterial Blood Base Excess 2.5 (-2-2) H Freddy Test Positive Current Medications Medications (Trade) Dose Ordered Sig/Aleksander Route PRN Reason Start Time Stop Time Status Last Admin Dose Admin Acetaminophen (Tylenol) 650 mg Q4H PRN NG Temp >100.5 09/10/20 23:15 10/10/20 23:14 09/21/20 00:20 Al Hydroxide/Mg Hydroxide (Mylanta) 30 ml Q4H PRN NG Constipation 09/11/20 00:15 10/10/20 23:14 Ascorbic Acid (Vitamin C) 250 mg DAILY ORAL 09/18/20 09:00 10/18/20 08:59 09/21/20 08:09 Diphenoxylate HCl/ Atropine (Lomotil) 2.5 mg Q4H PRN ORAL Diarrhea 09/20/20 08:15 10/20/20 08:14 Finasteride (Proscar) 5 mg DAILY ORAL 09/13/20 09:00 12/12/20 08:59 09/21/20 08:09 Multivitamins (Multivitamins) 1 tab DAILY ORAL 09/18/20 09:00 10/18/20 08:59 09/21/20 08:08 Ondansetron HCl (Zofran) 4 mg Q6H PRN IVP Nausea & Vomiting 09/10/20 23:15 10/10/20 23:14 Pantoprazole (Protonix) 40 mg DAILY IVP 09/11/20 09:00 10/11/20 08:59 09/21/20 08:09 Tamsulosin HCl (Flomax) 0.4 mg BEDTIME ORAL 09/12/20 21:00 10/12/20 20:59 09/20/20 21:10 Valproic Acid (Depakene) 1,000 mg BEDTIME NG 09/16/20 21:00 10/31/20 20:59 09/20/20 21:10 Vancomycin HCl (Vanco pharmacy to dose) 1 ea DAILY PRN MISC Per rx protocol 09/16/20 08:45 10/16/20 08:44 Vancomycin HCl 1 gm/Sodium Chloride 275 ml @ 184 mls/hr Q12H IVPB 09/21/20 11:00 09/26/20 10:59 Zinc Sulfate (Zinc Sulfate) 220 mg DAILY ORAL 09/18/20 09:00 09/28/20 08:59 09/21/20 08:08 Martha Collins MD Sep 21, 2020 11:54
--- NOTE | 2020-09-21 12:00 | NUR ---
NURSE NOTES: Pt repositioned. Wound care photos taken. No pressure injuries noted to left trochanter or left ear (possible resolved since admission). Axillary Temp 99.1 F. Tube feeding resumed at 20 cc/hr per Dr Villasenor - will advance as tolerated. Still tachypneic with RR in the 30s-40s - will contact Dr Villasenor for further orders.
--- NOTE | 2020-09-21 12:30 | NUR ---
NURSE NOTES: Received telephone order for 1mg IV Ativan PRN agitation/anxiety (including pt-vent desynchrony) q 3hrs. Order read back and verified. Will administer shortly.
--- NOTE | 2020-09-21 12:35 | General Progress Note ---
Subjective ROS Limited/Unobtainable: Yes Allergies: Coded Allergies: No Known Allergies (Unverified , 09/10/20) Subjective tachypneic and hypoxemic in [facility] lethargic and reduced LOC same congested transferred to ICU for intubation Objective Last 24 Hour Vital Signs Date Time Temp Pulse Resp B/P (MAP) Pulse Ox O2 Delivery O2 Flow Rate FiO2 09/21/20 12:00 125 09/21/20 12:00 99.1 112 25 107/85 (92) 91 09/21/20 12:00 100 09/21/20 11:40 100 09/21/20 11:00 124 30 118/77 (91) 91 09/21/20 10:40 124 09/21/20 10:40 99.6 107 21 105/75 (85) 90 09/21/20 08:00 96.4 88 40 118/71 (87) 93 09/21/20 08:00 Non-Rebreather 15.0 Non-Rebreather 15.0 Non-Rebreather 15.0 09/21/20 07:59 80 09/21/20 07:58 94 Venturi Mask 14.0 55 09/21/20 06:35 Venturi Mask 14.0 Non-Rebreather 15.0 Venturi Mask 14.0 09/21/20 06:29 15.0 09/21/20 04:00 98.4 71 23 106/61 (76) 93 71 09/21/20 04:00 83 09/21/20 04:00 Venturi Mask 14.0 Venturi Mask 14.0 Venturi Mask 14.0 09/21/20 00:00 86 09/21/20 00:00 100.0 90 24 119/86 (97) 98 97 09/21/20 00:00 Venturi Mask 14.0 Venturi Mask 14.0 Venturi Mask 14.0 09/20/20 20:00 Venturi Mask 14.0 Venturi Mask 14.0 Venturi Mask 14.0 09/20/20 19:36 94 Venturi Mask 14.0 55 09/20/20 19:25 76 09/20/20 19:23 98.1 09/20/20 19:23 98.1 09/20/20 16:00 75 09/20/20 16:00 Venturi Mask 14.0 Venturi Mask 14.0 Venturi Mask 14.0 09/20/20 16:00 101.5 72 33 90/58 (69) 09/20/20 13:47 93 Venturi Mask 14.0 55 Intake and Output 09/20/20 09/21/20 19:00 07:00 Intake Total 150 ml 1018 ml Output Total 825 ml 310 ml Balance -675 ml 708 ml Free Water 50 ml 100 ml IV Total 368 ml Tube Feeding 100 ml 550 ml Output Urine Total 825 ml 310 ml # Bowel Movements 3 4 Laboratory Tests 09/21/20 02:45: White Blood Count 18.5#H, Red Blood Count 3.43L, Hemoglobin 10.0L, Hematocrit 28.8L, Mean Corpuscular Volume 84, Mean Corpuscular Hemoglobin 29.1, Mean Corpuscular Hemoglobin Concent 34.7, Red Cell Distribution Width 14.2, Platelet Count 203, Mean Platelet Volume 7.4, Neutrophils (%) (Auto) , Lymphocytes (%) (Auto) , Monocytes (%) (Auto) , Eosinophils (%) (Auto) , Basophils (%) (Auto) , Differential Total Cells Counted 100, Neutrophils % (Manual) 90H, Lymphocytes % (Manual) 5L, Monocytes % (Manual) 5, Eosinophils % (Manual) 0, Basophils % (Manual) 0, Band Neutrophils 0, Platelet Estimate Adequate, Platelet Morphology Normal, Hypochromasia 1+, Sodium Level 145, Potassium Level 4.0, Chloride Level 112H, Carbon Dioxide Level 28, Anion Gap 5, Blood Urea Nitrogen 27H, Creatinine 1.0, Estimat Glomerular Filtration Rate > 60, Glucose Level 99, Calcium Level 7.5L, Magnesium Level 2.2, Pro-B-Type Natriuretic Peptide 3092H 09/21/20 08:48: Arterial Blood pH 7.489H, Arterial Blood Partial Pressure CO2 34.5L, Arterial Blood Partial Pressure O2 52.0L, Arterial Blood HCO3 25.6, Arterial Blood Oxygen Saturation 88.5*L, Arterial Blood Base Excess 2.5H, Freddy Test Positive Height (Feet): 5 Height (Inches): 7.00 Weight (Pounds): 121 Objective WDWN chronically ill congested and tachypneic when seen reduced breath sounds bilaterally with noted rhonchi [id number] tachy without MRG NABS nontender feeding tube no CCE nonfocal poor LOC Assessment/Plan Status: stable Assessment/Plan: IMPRESSION: 1. Acute renal failure. 2. Hypernatremia. 3. Leukocytosis. 4. Possible sepsis. 5. Hypotension. 6. Dementia. 7. Acute on chronic encephalopathy. 8. bcx staph Epi 9. MRSA colonized 10. acute hypoxemic respiratory failure 11. atelectasis/collapse PLAN hydrate- as able PT ID noted; care noted follow up on antibiotics renal follow up monitor oxygen needs vent support negative venous US CANNOT OPTIMIZE, NEEDS TRACH/AIRWAY/GT for chronic care management discussed with consultants and CM medications/laboratory data/nursing notes/ICU care reviewed in detail note reviewed and edited care discussed with RN and RT ICU time spent >40 minutes Patel Villasenor MD Sep 21, 2020 12:35
[2020-09-21] MEDS: LORazepam Inj 2mg/ml 1ml IV PRN ×2 (12:37→17:53)
--- NOTE | 2020-09-21 13:00 | Cardiology Progress Note ---
Subjective DATE OF SERVICE: Sep 21, 2020 Condition has deteriorated further; now intubated and on mechanical ventilation. Diarrhea noted; CDiff negative. BP tenuous and low at times. Monitor: sinus rhythm; no significant bradycardia. ABG: (09/21/20) 7.49/34/52 Condition critical and prognosis guarded Objective Last 24 Hour Vital Signs Date Time Temp Pulse Resp B/P (MAP) Pulse Ox O2 Delivery O2 Flow Rate FiO2 09/21/20 12:37 126 43 107/65 92 09/21/20 12:00 125 09/21/20 12:00 99.1 112 25 107/85 (92) 91 09/21/20 12:00 100 09/21/20 11:40 100 09/21/20 11:00 124 30 118/77 (91) 91 09/21/20 10:40 124 09/21/20 10:40 99.6 107 21 105/75 (85) 90 09/21/20 08:00 96.4 88 40 118/71 (87) 93 09/21/20 08:00 Non-Rebreather 15.0 Non-Rebreather 15.0 Non-Rebreather 15.0 09/21/20 07:59 80 09/21/20 07:58 94 Venturi Mask 14.0 55 09/21/20 06:35 Venturi Mask 14.0 Non-Rebreather 15.0 Venturi Mask 14.0 09/21/20 06:29 15.0 09/21/20 04:00 98.4 71 23 106/61 (76) 93 71 09/21/20 04:00 83 09/21/20 04:00 Venturi Mask 14.0 Venturi Mask 14.0 Venturi Mask 14.0 09/21/20 00:00 86 09/21/20 00:00 100.0 90 24 119/86 (97) 98 97 09/21/20 00:00 Venturi Mask 14.0 Venturi Mask 14.0 Venturi Mask 14.0 09/20/20 20:00 Venturi Mask 14.0 Venturi Mask 14.0 Venturi Mask 14.0 09/20/20 19:36 94 Venturi Mask 14.0 55 09/20/20 19:25 76 09/20/20 19:23 98.1 09/20/20 19:23 98.1 09/20/20 16:00 75 09/20/20 16:00 Venturi Mask 14.0 Venturi Mask 14.0 Venturi Mask 14.0 09/20/20 16:00 101.5 72 33 90/58 (69) 09/20/20 13:47 93 Venturi Mask 14.0 55 ROS: no change from my evaluation of 09/10/20. HEENT: Orally intubated, Mechanically Ventilated, Thin secretions ET Tube RHYTHM: NSR, ST LUNGS: bilat. rhonchi and rales CARDIAC: normal rate, regular rhythm, normal S1 and S2 ABDOMEN: normal bowel sounds, soft, other - sacral decub EXTREMITIES: No edema Laboratory Tests Test 09/21/20 02:45 09/21/20 08:48 White Blood Count 18.5 K/UL (4.8-10.8) #H Red Blood Count 3.43 M/UL (4.70-6.10) L Hemoglobin 10.0 G/DL (14.2-18.0) L Hematocrit 28.8 % (42.0-52.0) L Mean Corpuscular Volume 84 FL (80-99) Mean Corpuscular Hemoglobin 29.1 PG (27.0-31.0) Mean Corpuscular Hemoglobin Concent 34.7 G/DL (32.0-36.0) Red Cell Distribution Width 14.2 % (11.6-14.8) Platelet Count 203 K/UL (150-450) Mean Platelet Volume 7.4 FL (6.5-10.1) Neutrophils (%) (Auto) % (45.0-75.0) Lymphocytes (%) (Auto) % (20.0-45.0) Monocytes (%) (Auto) % (1.0-10.0) Eosinophils (%) (Auto) % (0.0-3.0) Basophils (%) (Auto) % (0.0-2.0) Differential Total Cells Counted 100 Neutrophils % (Manual) 90 % (45-75) H Lymphocytes % (Manual) 5 % (20-45) L Monocytes % (Manual) 5 % (1-10) Eosinophils % (Manual) 0 % (0-3) Basophils % (Manual) 0 % (0-2) Band Neutrophils 0 % (0-8) Platelet Estimate Adequate Platelet Morphology Normal Hypochromasia 1+ Sodium Level 145 MMOL/L (136-145) Potassium Level 4.0 MMOL/L (3.5-5.1) Chloride Level 112 MMOL/L (98-107) H Carbon Dioxide Level 28 MMOL/L (21-32) Anion Gap 5 mmol/L (5-15) Blood Urea Nitrogen 27 mg/dL (7-18) H Creatinine 1.0 MG/DL (0.55-1.30) Estimat Glomerular Filtration Rate > 60 mL/min (>60) Glucose Level 99 MG/DL (74-106) Calcium Level 7.5 MG/DL (8.5-10.1) L Magnesium Level 2.2 MG/DL (1.8-2.4) Pro-B-Type Natriuretic Peptide 3092 pg/mL (0-125) H Arterial Blood pH 7.489 (7.350-7.450) Arterial Blood Partial Pressure CO2 34.5 mmHg (35.0-45.0) L Arterial Blood Partial Pressure O2 52.0 mmHg (75.0-100.0) L Arterial Blood HCO3 25.6 mmol/L (22.0-26.0) Arterial Blood Oxygen Saturation 88.5 % (95-100) *L Arterial Blood Base Excess 2.5 (-2-2) H Freddy Test Positive Microbiology Date/Time Source Procedure Growth Status 09/18/20 18:30 Stool Clostridium difficile Toxin Assay - Final Complete Assessment/Plan Assessment/Plan Respiratory failure with hypoxia Sepsis Leukocytosis Probable new aspiration PNA Recovering shock Diarrhea Dehydration/hypernatremia corrected. Likely congestion due to aspiration Acute myocardial ischemia Acute renal failure HC assoc PNA UTI CVA/dementia Sinus bradycardia, asymptomatic Acute diastolic CHF Remains CRITICAL & GUARDED Vent support; may need trach ultimately Diuresis based on daily clinical parameters Antimicrobials per ID. Replace lytes as needed. DVT prophyl Cardiac monitoring Maintenance hydration Madi Rios MD Sep 21, 2020 13:00
--- NOTE | 2020-09-21 13:13 | NUR ---
CASE MANAGEMENT:REVIEW SI;RESPIRATORY FAILURE~S/P INTUBATION. SEPSIS. ARF. 101.5 126 43 90/58 91% ETT/VENT AC 18 TV 500 PEEP 10 FIO2 100% WBC 18.5 H/H 10.0/28.8 BUN 27 BNP 3092 IS;ZOSYN IB Q8 ATIVAN IV Q3 VANCOMYCIN IV Q12 LASIX IV ONCE DEPAKENE NG QD PROTONIX IV QD TRANSFERRED FROM [facility] >>>>>>>>ICU ICU STATUS
--- NOTE | 2020-09-21 13:35 | Diagnostic Imaging Report ---
Indication: Post intubation Technique: One view of the chest Comparison: 09/19/2020 Findings: Interim endotracheal intubation, endotracheal tube tip in good position approximately 4 cm above the maverick. Interim marked worsening of bilateral dense consolidation. Pleural spaces are grossly clear. The heart size is normal. Impression: Satisfactory endotracheal intubation Marked worsening of bilateral infiltrates over 2 days
--- NOTE | 2020-09-21 13:36 | Cardiology Report ---
APPROVED REPORT EKG Measurement Heart [id number] <Conclusion> Normal sinus rhythm Nonspecific T wave abnormality Abnormal ECG
--- NOTE | 2020-09-21 14:00 | NUR ---
NURSE NOTES: Pt remains comatose; however, now synchronizing with the ventilator. No distress noted. Hemodynamically stable. Repositioned.
[2020-09-21] MEDS: Piperacillin/Tazobactam 4.5 GM in NS 110 ML IVPB SCH ×2 (14:04→21:44)
--- NOTE | 2020-09-21 14:43 | Emergency Room Report ---
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 I feel this is a highly complex case requiring extensive working including EKG/Rhythm strip, Xray/CT/US, Blood/urine lab work, repeat exams while in ED, and administration of strong opiates/narcotics for pain control, admission to hospital or close patient follow up. Total time: 30 min bedside evaluation and treatment excludes procedures (EKG). Reason for critical care: Respiratory distress, hypoxia. Possible complications: hypotension, hypertension, CT, shock, arrhythmias, metabolic acidosis, end organ damage, respiratory failure. Interventions: Intubation, ventilation, reassessment of vitals Course: Patient evaluated for hypoxia, multilobar pneumonia. Using RSI meds I intubated patient. Patient initially became hypoxic but then with continued ventilation regained O2 sats. Patient placed on ventilator Consultations: nursing staff, EMS, family Performed by: Dr Zazueta Tolerated well condition = critical j. because of unstable vital signs this patient had a condition that could potentially threaten life or limb. I feel this is a critical patient who required my full attention while patient was considered critical. Total Critical Care Time excluding procedures was greater than 35 minutes Intubation Intubation : Consent: Emergent Intubation Method: orotracheal Tube Size (cm): 7.5 Medications: Etomidate, Rocuronium Breath Sounds after Intubation: equal Intubation Complications: no complications Post Intubation Xray: Yes Attempts: One Patient Tolerated: Well Complications: None Medical Decision Making Diagnostic Impression: Primary Impression: Fever Qualified Codes: R50.9 - Fever, unspecified Additional Impression: Severe sepsis ER Course I was called to the SDU to evaluate this patient. Patient hypoxic on oxygen. Appears in distress. I evaluated patient and intubated. ET tube confirmed. Improved breath sounds. O2 saturation improved. Placed on ventilator. Care resumed by admitting team Last Vital Signs Date Time Temp Pulse Resp B/P (MAP) Pulse Ox O2 Delivery O2 Flow Rate FiO2 09/21/20 13:07 105 28 91/58 94 09/21/20 12:00 Mechanical Ventilator Mechanical Ventilator 09/21/20 12:00 99.1 09/21/20 12:00 100 09/21/20 08:00 15.0 15.0 15.0 Status: improved Disposition: ADMITTED INPATIENT Condition: Critical Referrals: NON PHYSICIAN (PCP) Tesfaye Zazueta MD Sep 21, 2020 14:43
--- NOTE | 2020-09-21 15:00 | NUR ---
NURSE NOTES: LFA 20g IV noted leaking and discontinued. An additional LFA 20g IV just inserted - intact and patent.
--- NOTE | 2020-09-21 16:00 | NUR ---
NURSE NOTES: Pt repositioned. Oral care provided. Axillary temp 100 F. No distress noted. Addendum: 09/21/20 at 1833 by Catalina Spangler RN Late entry: ice packs placed to axilla.
--- NOTE | 2020-09-21 16:27 | Surgery Progress Note ---
Surgery Progress Note Subjective Additional Comments will likely need trach and peg. patient needs protected airway and nutrition full code no family and unable to consent medically necessary. will plan soon Objective Last 24 Hour Vital Signs Date Time Temp Pulse Resp B/P (MAP) Pulse Ox O2 Delivery O2 Flow Rate FiO2 09/21/20 16:00 106 09/21/20 16:00 100.0 112 24 109/66 (80) 96 09/21/20 16:00 100 09/21/20 16:00 Mechanical Ventilator Mechanical Ventilator 09/21/20 15:00 105 20 97/61 (73) 96 09/21/20 14:48 103 18 100 09/21/20 14:00 101 32 101/62 (75) 95 09/21/20 13:07 105 28 91/58 94 09/21/20 13:00 105 28 91/58 (69) 94 09/21/20 12:37 126 43 107/65 92 09/21/20 12:00 Mechanical Ventilator Mechanical Ventilator 09/21/20 12:00 125 09/21/20 12:00 99.1 112 25 107/85 (92) 91 09/21/20 12:00 100 09/21/20 11:40 100 09/21/20 11:00 124 30 118/77 (91) 91 09/21/20 10:40 124 09/21/20 10:40 99.5 107 21 105/75 (85) 90 09/21/20 10:40 Mechanical Ventilator Mechanical Ventilator 09/21/20 10:00 100 18 100 09/21/20 08:00 96.4 88 40 118/71 (87) 93 09/21/20 08:00 Non-Rebreather 15.0 Non-Rebreather 15.0 Non-Rebreather 15.0 09/21/20 07:59 80 09/21/20 07:58 94 Venturi Mask 14.0 55 09/21/20 06:35 Venturi Mask 14.0 Non-Rebreather 15.0 Venturi Mask 14.0 09/21/20 06:29 15.0 09/21/20 04:00 98.4 71 23 106/61 (76) 93 71 09/21/20 04:00 83 09/21/20 04:00 Venturi Mask 14.0 Venturi Mask 14.0 Venturi Mask 14.0 09/21/20 00:00 86 09/21/20 00:00 100.0 90 24 119/86 (97) 98 97 09/21/20 00:00 Venturi Mask 14.0 Venturi Mask 14.0 Venturi Mask 14.0 09/20/20 20:00 Venturi Mask 14.0 Venturi Mask 14.0 Venturi Mask 14.0 09/20/20 19:36 94 Venturi Mask 14.0 55 09/20/20 19:25 76 09/20/20 19:23 98.1 09/20/20 19:23 98.1 I&O Intake and Output 09/20/20 09/21/20 19:00 07:00 Intake Total 150 ml 1018 ml Output Total 825 ml 310 ml Balance -675 ml 708 ml Free Water 50 ml 100 ml IV Total 368 ml Tube Feeding 100 ml 550 ml Output Urine Total 825 ml 310 ml # Bowel Movements 3 4 Cardiovascular: RSR Respiratory: decreased breath sounds Abdomen: non-tender, present bowel sounds Extremities: no cyanosis, other Laboratory Tests Test 09/21/20 02:45 09/21/20 08:48 White Blood Count 18.5 K/UL (4.8-10.8) #H Red Blood Count 3.43 M/UL (4.70-6.10) L Hemoglobin 10.0 G/DL (14.2-18.0) L Hematocrit 28.8 % (42.0-52.0) L Mean Corpuscular Volume 84 FL (80-99) Mean Corpuscular Hemoglobin 29.1 PG (27.0-31.0) Mean Corpuscular Hemoglobin Concent 34.7 G/DL (32.0-36.0) Red Cell Distribution Width 14.2 % (11.6-14.8) Platelet Count 203 K/UL (150-450) Mean Platelet Volume 7.4 FL (6.5-10.1) Neutrophils (%) (Auto) % (45.0-75.0) Lymphocytes (%) (Auto) % (20.0-45.0) Monocytes (%) (Auto) % (1.0-10.0) Eosinophils (%) (Auto) % (0.0-3.0) Basophils (%) (Auto) % (0.0-2.0) Differential Total Cells Counted 100 Neutrophils % (Manual) 90 % (45-75) H Lymphocytes % (Manual) 5 % (20-45) L Monocytes % (Manual) 5 % (1-10) Eosinophils % (Manual) 0 % (0-3) Basophils % (Manual) 0 % (0-2) Band Neutrophils 0 % (0-8) Platelet Estimate Adequate Platelet Morphology Normal Hypochromasia 1+ Sodium Level 145 MMOL/L (136-145) Potassium Level 4.0 MMOL/L (3.5-5.1) Chloride Level 112 MMOL/L (98-107) H Carbon Dioxide Level 28 MMOL/L (21-32) Anion Gap 5 mmol/L (5-15) Blood Urea Nitrogen 27 mg/dL (7-18) H Creatinine 1.0 MG/DL (0.55-1.30) Estimat Glomerular Filtration Rate > 60 mL/min (>60) Glucose Level 99 MG/DL (74-106) Calcium Level 7.5 MG/DL (8.5-10.1) L Magnesium Level 2.2 MG/DL (1.8-2.4) Pro-B-Type Natriuretic Peptide 3092 pg/mL (0-125) H Arterial Blood pH 7.489 (7.350-7.450) Arterial Blood Partial Pressure CO2 34.5 mmHg (35.0-45.0) L Arterial Blood Partial Pressure O2 52.0 mmHg (75.0-100.0) L Arterial Blood HCO3 25.6 mmol/L (22.0-26.0) Arterial Blood Oxygen Saturation 88.5 % (95-100) *L Arterial Blood Base Excess 2.5 (-2-2) H Freddy Test Positive Plan Problems: (1) Fever Assessment & Plan: maybe developing pneumonia cont abx pulm input thank you (2) Decubitus skin ulcer Assessment & Plan: Patient identified on admission to have multiple scabs on the left arm. mild open scabs with eschar. no drainage. no significant cellulitis. bruising no bilateral extremities noted. no signs of abuse. likely from agitation Sacral coccygeal noted to have a DTI 4.3X2.5CM. which is dark purple . RECOMMEND-CLEAN WITH SALINE, PAT DRY AND APPLY CALAZINE. COVER WITH OPTIFOAM DRESSING. REPLACE EVERY 3 DAYS OR NEEDED LEFT ISCHIUM- STAGE I PRESSURE ULCER MEASURES 4.5X1.7CM. NON-BLANCHABLE ERYTHEMA. RECOMMEND- APPLY CALAZINE AND COVER WITH OPTIFOAM DRESSING. REPLACE EVERY 7 DAYS. Turn q2h off load pressure with pillow off load heels nutritional optimization OTA eval will follow with recs thank you (3) Malnutrition Assessment & Plan: Mr. Roman is a 70 year old male BIBA to ED of [facility] – [place] on 09/10/2020 around 14:00 due to fever. He was found to be hypotensive 91/55 (67), Temp: 100.0, leukocytosis 20.8k and subsequently transferred to ICU for septic shock. The blood culture is reportedly positive for gram positive cocci. NG tube was placed, KUB confirmed the placement to day. Pt is clinically stable with leukocytosis 20.1, improved BUN and creatine, stable hemodynamic without vasopressor. Findings: Mr. Roman is disoriented. He does ot follow commands at this time. Oral cavity is noted to be dried blood concretion likely from NG trauma. No active bleeding site is seen. Due to his level f alertness, already NG tube is in placed, PO trial was not done at this time. Transferred out ICU last night. He is non on tele. Issues: multiple wounds, s.p balaji/nasal/pharyngeal bleeding with blood culture Gram positive cocci leukocytosis trending down from 20k-20k-16k BUN/Creatine trending down from 93/1.9-79/1.3-54/1.1 Temp: 98.1~98.7, Pulse: 62~72, BP: 105/67~120/48, SPO2 98~100% on 2 liter S: Oral cavity is better condition comparison to yesterday. The mucosa is severely erythema without active bleeding. Limited level of alertness for direct therapy. NG in placed O: 1. Laryngeal palpation to trigger spontaneous cough and swallow: Pt triggered cough with laryngeal palpation. Approximately 5~10 seconds after coughing, he triggered swallow. based on this observation, he presents with copious secretion in pharynx and larynx. He continued to have poor secretion management at laryngeal level at this time. NO PO trial was given due to poor secretion at the level of air way with low level of alertness. A: 1. Probable aspiration of his own secretion with poor ability to cough and swallow 2. Dysphagia P: 1. NPO for now 2. Observe his secretion, and level of alertness for PO readiness. DAILY ESTIMATED NEEDS: Needs based on Wound, underweight/ 55kg 30-35 kcals/kg 9620-3701 total kcals 1.25-2 g protein/kg 69-110 g total protein 25-30 mL/kg 2682-4680 total fluid mLs NUTRITION DIAGNOSIS: Increased kcal/prot needs R/T wound healing and underweight status as evidenced by pt admitted w/ wounds including DTI 2 coccyx and stage 1 @ lt ischium, pt @ 73% IBW w/ low BMI per guidelines, s/p NGT insertion, on NGT feeds. CURRENT TF:Jevity 1.2 @ 50ml/hr x 24 hrs ENTERAL NUTRITION RECOMMENDATIONS: Jevity 1.2 @ 60ml/hr x 24 hrs to provide 1440ml, 1728kcal, 80g prot, 1160ml free water * As medically appropriate, increase goal rate to 60ml/hr x 24 hrs to meet 100% est kcal/prot needs * HOB over 30 degrees/ without IVF, H2O flush of 100ml q 8hrs ADDITIONAL RECOMMENDATIONS: * Calibrated daily bedscale wt Per SNF: HT=70" * Wound healing: TF rec @ goal will provide 100% RDI add Vit C 250mg QD, ZnSO4 220mg QD x 10days, Davidson BID via NGT * Monitor BGs, need for NISS w/ TF * Monitor lytes, replete as needed- high risk for refeeding syndrome -> check f/up phos and mag (4) Severe sepsis Assessment & Plan: will likely need trach and peg. patient needs protected airway and nutrition full code no family and unable to consent medically necessary. will plan soon (5) Open upper arm wound (6) Hematuria Assessment & Plan: as per urology Aubrey Gutierrez Sep 21, 2020 16:27
--- NOTE | 2020-09-21 18:00 | NUR ---
NURSE NOTES: Axillary temp now 99 F. Pt is fighting the vent. Bite block placed and 1 mg ativan IVP given. Repositioned.
--- NOTE | 2020-09-21 19:30 | NUR ---
NURSE NOTES: received pt in bed, obtunded to comatose, on vent via ETT, not showing any signs of distress at present settings. NGT on the right patent with Jevity running at 40cc/hr. Lt and Rt HL intact. Flexiseal in place. FC intact draining yellow to orange urine. VSS and pt is sinus tach on the monitor.
--- NOTE | 2020-09-21 19:48 | NUR ---
NURSE HAND-OFF REPORT: Latest Vital Signs: Temperature 100.6 , Pulse 112 , B/P 104 /65 , Respiratory Rate 27 , O2 SAT 95 , Mechanical Ventilator, FiO2 100% . EKG Rhythm: Sinus Tachycardia Rhythm change?: Y Notified?: Y -Dr Villasenor and Dr Gabriel BENITEZ Response: No New Orders Received Latest Schultz Fall Score: 70 Fall Risk: High Risk Safety Measures: Call light Within Reach, Bed Alarm Zone 1, Side Rails Side Rails x3, Bed position Low and Locked. Fall Precautions: Yellow Socks Door Sign Patient Fall Education Report given to ARTEMIO Domingo. Endorsed that last temp 100.6 F tylenol given - need to reassess temp.
[2020-09-21] MEDS: Valproic Acid 250mg/5ml Liquid NG SCH (21:43)
[2020-09-21] MEDS: Tamsulosin 0.4mg cap ORAL SCH (21:43)
--- NOTE | 2020-09-21 23:51 | General Progress Note ---
Subjective Allergies: Coded Allergies: No Known Allergies (Unverified , 09/10/20) Objective Last 24 Hour Vital Signs Date Time Temp Pulse Resp B/P (MAP) Pulse Ox O2 Delivery O2 Flow Rate FiO2 09/21/20 23:02 108 28 100 09/21/20 20:00 100 09/21/20 20:00 112 09/21/20 20:00 Mechanical Ventilator Mechanical Ventilator 09/21/20 19:13 112 27 100 09/21/20 19:00 112 25 104/65 (78) 95 09/21/20 18:23 119 18 91/69 94 09/21/20 18:00 99.0 120 22 106/66 (79) 96 09/21/20 17:53 122 26 120/75 97 09/21/20 17:00 121 38 120/75 (90) 96 09/21/20 16:00 106 09/21/20 16:00 100.0 112 24 109/66 (80) 96 09/21/20 16:00 100 09/21/20 16:00 Mechanical Ventilator Mechanical Ventilator 09/21/20 15:00 105 20 97/61 (73) 96 09/21/20 14:48 103 18 100 09/21/20 14:00 101 32 101/62 (75) 95 09/21/20 13:07 105 28 91/58 94 09/21/20 13:00 105 28 91/58 (69) 94 09/21/20 12:37 126 43 107/65 92 09/21/20 12:00 Mechanical Ventilator Mechanical Ventilator 09/21/20 12:00 125 09/21/20 12:00 99.1 112 25 107/85 (92) 91 09/21/20 12:00 100 09/21/20 11:40 100 09/21/20 11:00 124 30 118/77 (91) 91 09/21/20 10:40 124 09/21/20 10:40 99.5 107 21 105/75 (85) 90 09/21/20 10:40 Mechanical Ventilator Mechanical Ventilator 09/21/20 10:00 100 18 100 09/21/20 10:00 94 19 90 Mechanical Ventilator 100 09/21/20 08:00 96.4 88 40 118/71 (87) 93 09/21/20 08:00 Non-Rebreather 15.0 Non-Rebreather 15.0 Non-Rebreather 15.0 09/21/20 07:59 80 09/21/20 07:58 94 Venturi Mask 14.0 55 09/21/20 06:35 Venturi Mask 14.0 Non-Rebreather 15.0 Venturi Mask 14.0 09/21/20 06:29 15.0 09/21/20 04:00 98.4 71 23 106/61 (76) 93 71 09/21/20 04:00 83 09/21/20 04:00 Venturi Mask 14.0 Venturi Mask 14.0 Venturi Mask 14.0 09/21/20 00:00 86 09/21/20 00:00 100.0 90 24 119/86 (97) 98 97 09/21/20 00:00 Venturi Mask 14.0 Venturi Mask 14.0 Venturi Mask 14.0 Intake and Output 09/20/20 09/21/20 19:00 07:00 Intake Total 150 ml 1018 ml Output Total 825 ml 310 ml Balance -675 ml 708 ml Free Water 50 ml 100 ml IV Total 368 ml Tube Feeding 100 ml 550 ml Output Urine Total 825 ml 310 ml # Bowel Movements 3 4 Laboratory Tests 09/21/20 02:45: White Blood Count 18.5#H, Red Blood Count 3.43L, Hemoglobin 10.0L, Hematocrit 28.8L, Mean Corpuscular Volume 84, Mean Corpuscular Hemoglobin 29.1, Mean Corpuscular Hemoglobin Concent 34.7, Red Cell Distribution Width 14.2, Platelet Count 203, Mean Platelet Volume 7.4, Neutrophils (%) (Auto) , Lymphocytes (%) (Auto) , Monocytes (%) (Auto) , Eosinophils (%) (Auto) , Basophils (%) (Auto) , Differential Total Cells Counted 100, Neutrophils % (Manual) 90H, Lymphocytes % (Manual) 5L, Monocytes % (Manual) 5, Eosinophils % (Manual) 0, Basophils % (Manual) 0, Band Neutrophils 0, Platelet Estimate Adequate, Platelet Morphology Normal, Hypochromasia 1+, Sodium Level 145, Potassium Level 4.0, Chloride Level 112H, Carbon Dioxide Level 28, Anion Gap 5, Blood Urea Nitrogen 27H, Creatinine 1.0, Estimat Glomerular Filtration Rate > 60, Glucose Level 99, Calcium Level 7.5L, Magnesium Level 2.2, Pro-B-Type Natriuretic Peptide 3092H 09/21/20 08:48: Arterial Blood pH 7.489H, Arterial Blood Partial Pressure CO2 34.5L, Arterial Blood Partial Pressure O2 52.0L, Arterial Blood HCO3 25.6, Arterial Blood Oxygen Saturation 88.5*L, Arterial Blood Base Excess 2.5H, Freddy Test Positive Height (Feet): 5 Height (Inches): 7.00 Weight (Pounds): 121 Assessment/Plan Status: stable Assessment/Plan: Assessment - resp failure - NGT dependent - OBS/Dementia - sepsis - diarrhea, C Diff (-) - Azotemia, resolved - CHF - malnutrition , low albumin Recommendations -Vent care / support - abx - supportive care - resume TF - will arrange for PEG placement next week Thank you MD Rick Lopez Payman MD Sep 21, 2020 23:51
[2020-09-22] VITALS (25 sets, daily range): BP systolic 89–131; BP diastolic 50–98
[2020-09-22 05:56] LABS: HEMATOCRIT 29.2 % (42.0-52.0); HEMOGLOBIN 10.2 G/DL (14.2-18.0); MEAN CORPUSCULAR VOLUME 82 FL (80-99); PLATELET COUNT 226 K/UL (150-450); RED BLOOD COUNT 3.54 M/UL (4.70-6.10); RED CELL DISTRIBUTION WIDTH 15.9 % (11.6-14.8); WHITE BLOOD COUNT 21.7 K/UL (4.8-10.8)
[2020-09-22] MEDS: Piperacillin/Tazobactam 4.5 GM in NS 110 ML IVPB SCH ×3 (06:00→21:03)
[2020-09-22 06:26] LABS: ALANINE AMINOTRANSFERASE 37 U/L (12-78); ALBUMIN 1.4 G/DL (3.4-5.0); ALBUMIN/GLOBULIN RATIO 0.3 (1.0-2.7); ALKALINE PHOSPHATASE 60 U/L (46-116); ASPARTATE AMINO TRANSFERASE 34 U/L (15-37); BILIRUBIN,TOTAL 0.4 MG/DL (0.2-1.0); BLOOD UREA NITROGEN 40 mg/dL (7-18); CALCIUM 7.9 MG/DL (8.5-10.1); CHLORIDE 110 MMOL/L (98-107); CREATININE 1.2 MG/DL (0.55-1.30); SODIUM 146 MMOL/L (136-145)
[2020-09-22 06:31] LABS: CARBON DIOXIDE 28 MMOL/L (21-32)
--- NOTE | 2020-09-22 07:05 | General Progress Note ---
Subjective ROS Limited/Unobtainable: No Allergies: Coded Allergies: No Known Allergies (Unverified , 09/10/20) Objective Last 24 Hour Vital Signs Date Time Temp Pulse Resp B/P (MAP) Pulse Ox O2 Delivery O2 Flow Rate FiO2 09/22/20 06:00 103 34 100/98 (99) 96 09/22/20 05:00 109 23 111/66 (81) 97 09/22/20 04:00 103 09/22/20 04:00 Mechanical Ventilator Mechanical Ventilator 09/22/20 04:00 98.5 103 25 107/67 (80) 100 09/22/20 04:00 100 09/22/20 03:41 102 27 100 09/22/20 03:00 102 16 93/61 (72) 100 09/22/20 02:02 103 24 90/60 (70) 100 09/22/20 02:00 103 25 89/61 (70) 100 09/22/20 01:00 105 26 109/55 (73) 100 09/22/20 00:00 Mechanical Ventilator Mechanical Ventilator 09/22/20 00:00 106 09/22/20 00:00 100 09/22/20 00:00 98.7 104 29 92/58 (69) 99 09/21/20 23:02 108 28 100 09/21/20 23:00 108 24 104/69 (81) 99 09/21/20 22:00 110 25 99/61 (74) 98 09/21/20 21:00 98.9 112 27 93/67 (76) 97 09/21/20 20:00 100 09/21/20 20:00 112 09/21/20 20:00 112 15 106/61 (76) 96 09/21/20 20:00 Mechanical Ventilator Mechanical Ventilator 09/21/20 19:13 112 27 100 09/21/20 19:00 112 25 104/65 (78) 95 09/21/20 18:23 119 18 91/69 94 09/21/20 18:00 99.0 120 22 106/66 (79) 96 09/21/20 17:53 122 26 120/75 97 09/21/20 17:00 121 38 120/75 (90) 96 09/21/20 16:00 106 09/21/20 16:00 100.0 112 24 109/66 (80) 96 09/21/20 16:00 100 09/21/20 16:00 Mechanical Ventilator Mechanical Ventilator 09/21/20 15:00 105 20 97/61 (73) 96 09/21/20 14:48 103 18 100 09/21/20 14:00 101 32 101/62 (75) 95 09/21/20 13:07 105 28 91/58 94 09/21/20 13:00 105 28 91/58 (69) 94 09/21/20 12:37 126 43 107/65 92 09/21/20 12:00 Mechanical Ventilator Mechanical Ventilator 09/21/20 12:00 125 09/21/20 12:00 99.1 112 25 107/85 (92) 91 09/21/20 12:00 100 09/21/20 11:40 100 09/21/20 11:00 124 30 118/77 (91) 91 09/21/20 10:40 124 09/21/20 10:40 99.5 107 21 105/75 (85) 90 09/21/20 10:40 Mechanical Ventilator Mechanical Ventilator 09/21/20 10:00 100 18 100 09/21/20 10:00 94 19 90 Mechanical Ventilator 100 09/21/20 08:00 96.4 88 40 118/71 (87) 93 09/21/20 08:00 Non-Rebreather 15.0 Non-Rebreather 15.0 Non-Rebreather 15.0 09/21/20 07:59 80 09/21/20 07:58 94 Venturi Mask 14.0 55 Intake and Output 09/21/20 09/22/20 19:00 07:00 Intake Total 635.0 ml 712.5 ml Output Total 555 ml 385 ml Balance 80.0 ml 327.5 ml Free Water 40 ml 100 ml IV Total 385.0 ml 82.5 ml Tube Feeding 210 ml 530 ml Output Urine Total 505 ml 385 ml Stool Total 50 ml # Bowel Movements 1 1 Laboratory Tests 09/21/20 08:48: Arterial Blood pH 7.489H, Arterial Blood Partial Pressure CO2 34.5L, Arterial Blood Partial Pressure O2 52.0L, Arterial Blood HCO3 25.6, Arterial Blood Oxygen Saturation 88.5*L, Arterial Blood Base Excess 2.5H, Freddy Test Positive 09/22/20 05:05: White Blood Count 21.7H, Red Blood Count 3.54L, Hemoglobin 10.2L, Hematocrit 29.2L, Mean Corpuscular Volume 82, Mean Corpuscular Hemoglobin 28.7, Mean Corpuscular Hemoglobin Concent 34.9, Red Cell Distribution Width 15.9H, Platelet Count 226, Mean Platelet Volume 7.6, Neutrophils (%) (Auto) , Lymphocytes (%) (Auto) , Monocytes (%) (Auto) , Eosinophils (%) (Auto) , Basophils (%) (Auto) , Neutrophils % (Manual) [Pending], Lymphocytes % (Manual) [Pending], Platelet Estimate [Pending], Platelet Morphology [Pending], Sodium Level 146H, Potassium Level 4.0, Chloride Level 110H, Carbon Dioxide Level 28, Blood Urea Nitrogen 40H , Creatinine 1.2, Estimat Glomerular Filtration Rate > 60, Glucose Level 128H, Calcium Level 7.9L, Total Bilirubin 0.4, Aspartate Amino Transf (AST/SGOT) 34, Alanine Aminotransferase (ALT/SGPT) 37, Alkaline Phosphatase 60, Total Protein 6.0L, Albumin 1.4L, Globulin 4.6, Albumin/Globulin Ratio 0.3L Height (Feet): 5 Height (Inches): 7.00 Weight (Pounds): 121 General Appearance: no apparent distress EENT: normal ENT inspection Neck: supple Cardiovascular: normal peripheral pulses Respiratory/Chest: decreased breath sounds Abdomen: hypoactive bowel sounds Extremities: non-tender Assessment/Plan Status: stable Assessment/Plan: Assessment/Plan Status: stable Assessment/Plan: Assessment - resp failure - NGT dependent - OBS/Dementia - sepsis - diarrhea, C Diff (-) - Azotemia, resolved - CHF - malnutrition , low albumin Recommendations -Vent care / support - abx - supportive care - NGTF - will arrange for PEG placement this week Hima Escalante MD Sep 22, 2020 07:05
--- NOTE | 2020-09-22 07:22 | NUR ---
HAND-OFF: Report given to ARTEMIO Garcia.
--- NOTE | 2020-09-22 07:28 | NUR ---
HAND-OFF: Report given to ARTEMIO Danielle.
--- NOTE | 2020-09-22 08:05 | NUR ---
RD ASSESSMENT & RECOMMENDATIONS SEE CARE ACTIVITY FOR COMPLETE ASSESSMENT DAILY ESTIMATED NEEDS: Needs based on Wound, underweight, critical care/ 55kg 25-33 kcals/kg 0211-8702 total kcals 1.25-2 g protein/kg 69-110 g total protein 25-30 mL/kg 1421-9912 total fluid mLs NUTRITION DIAGNOSIS: * Increased kcal/prot needs R/T wound healing and underweight status as evidenced by pt admitted w/ wounds including DTI 2 coccyx and stage 1 @ lt ischium, pt @ 73% IBW w/ low BMI per guidelines. * Swallowing difficulty R/T respiratory status as evidenced by s/p code blue (09/22), orally intubated, on NGT feeds. CURRENT TF:Jevity 1.2 @ 60ml/hr x 24 hrs ENTERAL NUTRITION RECOMMENDATIONS: Jevity 1.2 @ 60ml/hr x 24 hrs to provide 1440ml, 1728kcal, 80g prot, 1160ml free water * Maintain current TF: meets 100% est kcal/prot needs * HOB over 30 degrees/ water flush per MD ADDITIONAL RECOMMENDATIONS: * Calibrated daily bedscale wt Per SNF: HT=70" * Wound healing: TF rec @ goal will provide 100% RDI Continue Vit C and ZnSO4, add Davidson BID via NGT * Monitor lytes, replete as needed (check f/up phos) * Monitor hydration status: Na and BUN trending up consider increasing water flushes
[2020-09-22] MEDS: Zinc Sulfate 220mg ORAL SCH (09:00)
[2020-09-22] MEDS ORDERED: NS 275ml ONE ×2 (09:10→11:52)
--- NOTE | 2020-09-22 09:30 | NUR ---
NURSE NOTES: Received report from Lolis ULLOA. Patient is on bed sleeping, no signs of grimacing or distress noted. Patient is intubated ET size 7.5, Lip 23, with settings of AC 18, FiO2 60%, Vt 500, PEEP 10, patient is tolerating well. Patient is on NGT patent, intact, with feeding Jevity running 60 mL/hr, tolerating well. Patient has a andrade catheter intact, patent, and draining light sky urine. Patient has L FA 20 g and R FA 20 g, patent, intact, and saline locked. HOB is elevated at all times, bed at lowest position, locked, call light within reached, side rails up. Patient will continue to be monitored.
--- NOTE | 2020-09-22 09:39 | General Progress Note ---
Subjective ROS Limited/Unobtainable: Yes Allergies: Coded Allergies: No Known Allergies (Unverified , 09/10/20) Subjective on vent congested but better ICU care reviewed Objective Last 24 Hour Vital Signs Date Time Temp Pulse Resp B/P (MAP) Pulse Ox O2 Delivery O2 Flow Rate FiO2 09/22/20 07:00 103 34 98/60 (73) 99 09/22/20 06:00 103 34 100/98 (99) 96 09/22/20 05:00 109 23 111/66 (81) 97 09/22/20 04:00 103 09/22/20 04:00 Mechanical Ventilator Mechanical Ventilator 09/22/20 04:00 98.5 103 25 107/67 (80) 100 09/22/20 04:00 100 09/22/20 03:41 102 27 100 09/22/20 03:00 102 16 93/61 (72) 100 09/22/20 02:02 103 24 90/60 (70) 100 09/22/20 02:00 103 25 89/61 (70) 100 09/22/20 01:00 105 26 109/55 (73) 100 09/22/20 00:00 Mechanical Ventilator Mechanical Ventilator 09/22/20 00:00 106 09/22/20 00:00 100 09/22/20 00:00 98.7 104 29 92/58 (69) 99 09/21/20 23:02 108 28 100 09/21/20 23:00 108 24 104/69 (81) 99 09/21/20 22:00 110 25 99/61 (74) 98 09/21/20 21:00 98.9 112 27 93/67 (76) 97 09/21/20 20:00 100 09/21/20 20:00 112 09/21/20 20:00 112 15 106/61 (76) 96 09/21/20 20:00 Mechanical Ventilator Mechanical Ventilator 09/21/20 19:13 112 27 100 09/21/20 19:00 112 25 104/65 (78) 95 09/21/20 18:23 119 18 91/69 94 09/21/20 18:00 99.0 120 22 106/66 (79) 96 09/21/20 17:53 122 26 120/75 97 09/21/20 17:00 121 38 120/75 (90) 96 09/21/20 16:00 106 12/4/20 16:00 100.0 112 24 109/66 (80) 96 09/21/20 16:00 100 09/21/20 16:00 Mechanical Ventilator Mechanical Ventilator 09/21/20 15:00 105 20 97/61 (73) 96 09/21/20 14:48 103 18 100 09/21/20 14:00 101 32 101/62 (75) 95 09/21/20 13:07 105 28 91/58 94 09/21/20 13:00 105 28 91/58 (69) 94 09/21/20 12:37 126 43 107/65 92 09/21/20 12:00 Mechanical Ventilator Mechanical Ventilator 09/21/20 12:00 125 09/21/20 12:00 99.1 112 25 107/85 (92) 91 09/21/20 12:00 100 09/21/20 11:40 100 09/21/20 11:00 124 30 118/77 (91) 91 09/21/20 10:40 124 09/21/20 10:40 99.5 107 21 105/75 (85) 90 09/21/20 10:40 Mechanical Ventilator Mechanical Ventilator 09/21/20 10:00 100 18 100 09/21/20 10:00 94 19 90 Mechanical Ventilator 100 Intake and Output 09/21/20 09/22/20 19:00 07:00 Intake Total 635.0 ml 772.5 ml Output Total 555 ml 420 ml Balance 80.0 ml 352.5 ml Free Water 40 ml 100 ml IV Total 385.0 ml 82.5 ml Tube Feeding 210 ml 590 ml Output Urine Total 505 ml 420 ml Stool Total 50 ml # Bowel Movements 1 1 Laboratory Tests 09/22/20 05:05: White Blood Count 21.7H, Red Blood Count 3.54L, Hemoglobin 10.2L, Hematocrit 29.2L, Mean Corpuscular Volume 82, Mean Corpuscular Hemoglobin 28.7, Mean Corpuscular Hemoglobin Concent 34.9, Red Cell Distribution Width 15.9H, Platelet Count 226, Mean Platelet Volume 7.6, Neutrophils (%) (Auto) , Lymphocytes (%) (Auto) , Monocytes (%) (Auto) , Eosinophils (%) (Auto) , Basophils (%) (Auto) , Neutrophils % (Manual) [Pending], Lymphocytes % (Manual) [Pending], Platelet Estimate [Pending], Platelet Morphology [Pending], Sodium Level 146H, Potassium Level 4.0, Chloride Level 110H, Carbon Dioxide Level 28, Blood Urea Nitrogen 40H , Creatinine 1.2, Estimat Glomerular Filtration Rate > 60, Glucose Level 128H, Calcium Level 7.9L, Total Bilirubin 0.4, Aspartate Amino Transf (AST/SGOT) 34, Alanine Aminotransferase (ALT/SGPT) 37, Alkaline Phosphatase 60, Total Protein 6.0L, Albumin 1.4L, Globulin 4.6, Albumin/Globulin Ratio 0.3L 09/22/20 08:38: Arterial Blood pH 7.368, Arterial Blood Partial Pressure CO2 48.0H, Arterial Blood Partial Pressure O2 206.6H, Arterial Blood HCO3 27.0H, Arterial Blood Oxygen Saturation 99.1, Arterial Blood Base Excess 1.3, Freddy Test Positive Height (Feet): 5 Height (Inches): 7.00 Weight (Pounds): 121 Objective WDWN chronically ill ETT in place feeding tube in place reduced breath sounds bilaterally with some rhonchi [id number] tachy without MRG NABS nontender no CCE nonfocal poor LOC Assessment/Plan Status: stable Assessment/Plan: IMPRESSION: 1. Acute renal failure. 2. Hypernatremia. 3. Leukocytosis. 4. Possible sepsis. 5. Hypotension. 6. Dementia. 7. Acute on chronic encephalopathy. 8. bcx staph Epi 9. MRSA colonized 10. acute hypoxemic respiratory failure 11. atelectasis/collapse PLAN taper fio2 with improved oxygenation ID noted; care noted follow up on antibiotics renal follow up and monitor renal function monitor oxygen needs vent support as is off load position change monitor imaging d/w consultants CANNOT OPTIMIZE, NEEDS TRACH/AIRWAY/GT for chronic care management discussed with consultants and CM no family found medications/laboratory data/nursing notes/ICU care reviewed in detail note reviewed and edited care discussed with RN and RT ICU time spent >40 minutes Patel Villasenor MD Sep 22, 2020 09:39
[2020-09-22] MEDS: Ascorbic Acid 500mg tab ORAL SCH (09:40)
[2020-09-22] MEDS: Pantoprazole Inj IVP SCH (09:40)
--- NOTE | 2020-09-22 10:05 | Urology Progress Note ---
Assessment/Plan Status: stable Assessment/Plan: 1. Gross hematuria. 2. Pyuria and possible UTI. 3. Proteinuria. 4. BPH. 5. Urinary retention. 6. Probable neurogenic bladder. 7. Possible sepsis. monitor clinically maintain andrade hand irrigated and do PRN abx as ordered flomax and proscar added cysto electively voiding trial at some point? f/u on last blood cx Subjective Allergies: Coded Allergies: No Known Allergies (Unverified , 09/10/20) Subjective non-verbal Objective Last 24 Hour Vital Signs Date Time Temp Pulse Resp B/P (MAP) Pulse Ox O2 Delivery O2 Flow Rate FiO2 09/22/20 07:30 105 27 100 09/22/20 07:00 103 34 98/60 (73) 99 09/22/20 06:00 103 34 100/98 (99) 96 09/22/20 05:00 109 23 111/66 (81) 97 09/22/20 04:00 103 09/22/20 04:00 Mechanical Ventilator Mechanical Ventilator 09/22/20 04:00 98.5 103 25 107/67 (80) 100 09/22/20 04:00 100 09/22/20 03:41 102 27 100 09/22/20 03:00 102 16 93/61 (72) 100 09/22/20 02:02 103 24 90/60 (70) 100 09/22/20 02:00 103 25 89/61 (70) 100 09/22/20 01:00 105 26 109/55 (73) 100 09/22/20 00:00 Mechanical Ventilator Mechanical Ventilator 09/22/20 00:00 106 09/22/20 00:00 100 09/22/20 00:00 98.7 104 29 92/58 (69) 99 09/21/20 23:02 108 28 100 09/21/20 23:00 108 24 104/69 (81) 99 09/21/20 22:00 110 25 99/61 (74) 98 09/21/20 21:00 98.9 112 27 93/67 (76) 97 09/21/20 20:00 100 09/21/20 20:00 112 09/21/20 20:00 112 15 106/61 (76) 96 09/21/20 20:00 Mechanical Ventilator Mechanical Ventilator 09/21/20 19:13 112 27 100 09/21/20 19:00 112 25 104/65 (78) 95 09/21/20 18:23 119 18 91/69 94 09/21/20 18:00 99.0 120 22 106/66 (79) 96 09/21/20 17:53 122 26 120/75 97 09/21/20 17:00 121 38 120/75 (90) 96 09/21/20 16:00 106 09/21/20 16:00 100.0 112 24 109/66 (80) 96 09/21/20 16:00 100 09/21/20 16:00 Mechanical Ventilator Mechanical Ventilator 09/21/20 15:00 105 20 97/61 (73) 96 09/21/20 14:48 103 18 100 09/21/20 14:00 101 32 101/62 (75) 95 09/21/20 13:07 105 28 91/58 94 09/21/20 13:00 105 28 91/58 (69) 94 09/21/20 12:37 126 43 107/65 92 09/21/20 12:00 Mechanical Ventilator Mechanical Ventilator 09/21/20 12:00 125 09/21/20 12:00 99.1 112 25 107/85 (92) 91 09/21/20 12:00 100 09/21/20 11:40 100 09/21/20 11:00 124 30 118/77 (91) 91 09/21/20 10:40 124 09/21/20 10:40 99.5 107 21 105/75 (85) 90 09/21/20 10:40 Mechanical Ventilator Mechanical Ventilator Intake and Output 09/21/20 09/22/20 19:00 07:00 Intake Total 635.0 ml 772.5 ml Output Total 555 ml 420 ml Balance 80.0 ml 352.5 ml Free Water 40 ml 100 ml IV Total 385.0 ml 82.5 ml Tube Feeding 210 ml 590 ml Output Urine Total 505 ml 420 ml Stool Total 50 ml # Bowel Movements 1 1 Microbiology Date/Time Source Procedure Growth Status 09/18/20 18:30 Stool Clostridium difficile Toxin Assay - Final Complete 09/18/20 03:50 Sputum Gram Stain - Final Complete 09/18/20 03:50 Sputum Culture - Final Staphylococcus Aureus - Mrsa Complete 09/17/20 12:58 Blood Blood Culture - Preliminary NO GROWTH AFTER 4 DAYS Resulted 09/10/20 20:05 Urine,Clean Catch Urine Culture - Final NO GROWTH AFTER 48 HOURS Complete 09/10/20 17:15 Rectum VRE Culture - Final Enterococcus Faecalis - Vre Complete Current Medications Medications (Trade) Dose Ordered Sig/Aleksander Route PRN Reason Start Time Stop Time Status Last Admin Dose Admin Acetaminophen (Tylenol) 650 mg Q4H PRN NG Temp >100.5 09/10/20 23:15 10/10/20 23:14 09/21/20 19:20 Al Hydroxide/Mg Hydroxide (Mylanta) 30 ml Q4H PRN NG Constipation 09/11/20 00:15 10/10/20 23:14 Ascorbic Acid (Vitamin C) 250 mg DAILY ORAL 09/18/20 09:00 10/18/20 08:59 09/22/20 09:40 Diphenoxylate HCl/ Atropine (Lomotil) 2.5 mg Q4H PRN ORAL Diarrhea 09/20/20 08:15 10/20/20 08:14 Finasteride (Proscar) 5 mg DAILY ORAL 09/13/20 09:00 12/12/20 08:59 09/22/20 09:40 Lorazepam (Ativan 2mg/ml 1ml) 1 mg Q3H PRN IV For Anxiety/Agitation 09/21/20 12:30 09/28/20 12:29 09/21/20 17:53 Multivitamins (Multivitamins) 1 tab DAILY ORAL 09/18/20 09:00 10/18/20 08:59 09/22/20 09:40 Ondansetron HCl (Zofran) 4 mg Q6H PRN IVP Nausea & Vomiting 09/10/20 23:15 10/10/20 23:14 Pantoprazole (Protonix) 40 mg DAILY IVP 09/11/20 09:00 10/11/20 08:59 09/22/20 09:40 Piperacillin Sod/ Tazobactam Sod 4.5 gm/Sodium Chloride 110 ml @ 27.5 mls/hr EVERY 8 HOURS IVPB 09/21/20 14:00 09/26/20 13:59 09/22/20 06:00 Tamsulosin HCl (Flomax) 0.4 mg BEDTIME ORAL 09/12/20 21:00 10/12/20 20:59 09/21/20 21:43 Valproic Acid (Depakene) 1,000 mg BEDTIME NG 09/16/20 21:00 10/31/20 20:59 09/21/20 21:43 Vancomycin HCl (Vanco pharmacy to dose) 1 ea DAILY PRN MISC Per rx protocol 09/16/20 08:45 10/16/20 08:44 Vancomycin HCl 1 gm/Sodium Chloride 275 ml @ 184 mls/hr Q12H IVPB 09/21/20 11:00 09/26/20 10:59 09/21/20 23:01 Zinc Sulfate (Zinc Sulfate) 220 mg DAILY ORAL 09/18/20 09:00 09/28/20 08:59 09/22/20 09:00 Laboratory Tests 09/22/20 05:05: White Blood Count 21.7H, Red Blood Count 3.54L, Hemoglobin 10.2L, Hematocrit 29.2L, Mean Corpuscular Volume 82, Mean Corpuscular Hemoglobin 28.7, Mean Corpuscular Hemoglobin Concent 34.9, Red Cell Distribution Width 15.9H, Platelet Count 226, Mean Platelet Volume 7.6, Neutrophils (%) (Auto) , Lymphocytes (%) (Auto) , Monocytes (%) (Auto) , Eosinophils (%) (Auto) , Basophils (%) (Auto) , Differential Total Cells Counted 100, Neutrophils % (Manual) 86H, Lymphocytes % (Manual) 1L, Monocytes % (Manual) 3, Eosinophils % (Manual) 0, Basophils % (Manual) 0, Band Neutrophils 10H, Platelet Estimate Adequate, Platelet Morphology Normal, Hypochromasia 1+, Anisocytosis 1+, Sodium Level 146H, Potassium Level 4.0, Chloride Level 110H, Carbon Dioxide Level 28, Blood Urea Nitrogen 40H, Creatinine 1.2, Estimat Glomerular Filtration Rate > 60, Glucose Level 128H, Calcium Level 7.9L, Total Bilirubin 0.4, Aspartate Amino Transf (AST/SGOT) 34, Alanine Aminotransferase (ALT/SGPT) 37, Alkaline Phosphatase 60, Total Protein 6.0L, Albumin 1.4L, Globulin 4.6, Albumin/Globulin Ratio 0.3L 09/22/20 08:38: Arterial Blood pH 7.368, Arterial Blood Partial Pressure CO2 48.0H, Arterial Blood Partial Pressure O2 206.6H, Arterial Blood HCO3 27.0H, Arterial Blood Oxygen Saturation 99.1, Arterial Blood Base Excess 1.3, Freddy Test Positive Height (Feet): 5 Height (Inches): 7.00 Weight (Pounds): 121 Objective exam stable urine clearing Levi Brunson MD Sep 22, 2020 10:05
[2020-09-22] MEDS: Vancomycin 1 GM in NS 275 ML IVPB SCH ×2 (11:06→22:35)
--- NOTE | 2020-09-22 11:39 | Infectious Diseases Prog Note ---
Assessment/Plan Assessment/Plan antibiotics : vancomycin iv, zosyn A 1. MRSA Pneumonia COVID-19 test is negative. 2. Dementia. 3. Leukocytosis increased 4. Urinary tract infection 5. + blood cultures with coag neg staph likely contaminated 6. respiratory failure P 1. continue vancomycin iv 2. continue zosyn 3. will follow up cultures Subjective ROS Limited/Unobtainable: Yes Allergies: Coded Allergies: No Known Allergies (Unverified , 09/10/20) Objective Last 24 Hour Vital Signs Date Time Temp Pulse Resp B/P (MAP) Pulse Ox O2 Delivery O2 Flow Rate FiO2 09/22/20 10:00 104 33 96/63 (74) 97 09/22/20 09:00 101 28 98/63 (75) 97 09/22/20 08:00 98.6 103 34 95/50 (65) 98 09/22/20 08:00 104 09/22/20 07:30 105 27 100 09/22/20 07:00 103 34 98/60 (73) 99 09/22/20 06:00 103 34 100/98 (99) 96 09/22/20 05:00 109 23 111/66 (81) 97 09/22/20 04:00 103 09/22/20 04:00 Mechanical Ventilator Mechanical Ventilator 09/22/20 04:00 98.5 103 25 107/67 (80) 100 09/22/20 04:00 100 09/22/20 03:41 102 27 100 09/22/20 03:00 102 16 93/61 (72) 100 09/22/20 02:02 103 24 90/60 (70) 100 09/22/20 02:00 103 25 89/61 (70) 100 09/22/20 01:00 105 26 109/55 (73) 100 09/22/20 00:00 Mechanical Ventilator Mechanical Ventilator 09/22/20 00:00 106 09/22/20 00:00 100 09/22/20 00:00 98.7 104 29 92/58 (69) 99 09/21/20 23:02 108 28 100 09/21/20 23:00 108 24 104/69 (81) 99 09/21/20 22:00 110 25 99/61 (74) 98 09/21/20 21:00 98.9 112 27 93/67 (76) 97 09/21/20 20:00 100 09/21/20 20:00 112 09/21/20 20:00 112 15 106/61 (76) 96 09/21/20 20:00 Mechanical Ventilator Mechanical Ventilator 09/21/20 19:13 112 27 100 09/21/20 19:00 112 25 104/65 (78) 95 09/21/20 18:23 119 18 91/69 94 09/21/20 18:00 99.0 120 22 106/66 (79) 96 09/21/20 17:53 122 26 120/75 97 09/21/20 17:00 121 38 120/75 (90) 96 09/21/20 16:00 106 09/21/20 16:00 100.0 112 24 109/66 (80) 96 09/21/20 16:00 100 09/21/20 16:00 Mechanical Ventilator Mechanical Ventilator 09/21/20 15:00 105 20 97/61 (73) 96 09/21/20 14:48 103 18 100 09/21/20 14:00 101 32 101/62 (75) 95 09/21/20 13:07 105 28 91/58 94 09/21/20 13:00 105 28 91/58 (69) 94 09/21/20 12:37 126 43 107/65 92 09/21/20 12:00 Mechanical Ventilator Mechanical Ventilator 09/21/20 12:00 125 09/21/20 12:00 99.1 112 25 107/85 (92) 91 09/21/20 12:00 100 09/21/20 11:40 100 Height (Feet): 5 Height (Inches): 7.00 Weight (Pounds): 121 HEENT: other - intubated Respiratory/Chest: lungs clear Cardiovascular: normal rate, regular rhythm, no gallop/murmur Abdomen: soft, non tender Extremities: other - edema Laboratory Tests Test 09/22/20 05:05 09/22/20 08:38 White Blood Count 21.7 K/UL (4.8-10.8) H Red Blood Count 3.54 M/UL (4.70-6.10) L Hemoglobin 10.2 G/DL (14.2-18.0) L Hematocrit 29.2 % (42.0-52.0) L Mean Corpuscular Volume 82 FL (80-99) Mean Corpuscular Hemoglobin 28.7 PG (27.0-31.0) Mean Corpuscular Hemoglobin Concent 34.9 G/DL (32.0-36.0) Red Cell Distribution Width 15.9 % (11.6-14.8) H Platelet Count 226 K/UL (150-450) Mean Platelet Volume 7.6 FL (6.5-10.1) Neutrophils (%) (Auto) % (45.0-75.0) Lymphocytes (%) (Auto) % (20.0-45.0) Monocytes (%) (Auto) % (1.0-10.0) Eosinophils (%) (Auto) % (0.0-3.0) Basophils (%) (Auto) % (0.0-2.0) Differential Total Cells Counted 100 Neutrophils % (Manual) 86 % (45-75) H Lymphocytes % (Manual) 1 % (20-45) L Monocytes % (Manual) 3 % (1-10) Eosinophils % (Manual) 0 % (0-3) Basophils % (Manual) 0 % (0-2) Band Neutrophils 10 % (0-8) H Platelet Estimate Adequate Platelet Morphology Normal Hypochromasia 1+ Anisocytosis 1+ Sodium Level 146 MMOL/L (136-145) H Potassium Level 4.0 MMOL/L (3.5-5.1) Chloride Level 110 MMOL/L (98-107) H Carbon Dioxide Level 28 MMOL/L (21-32) Blood Urea Nitrogen 40 mg/dL (7-18) H Creatinine 1.2 MG/DL (0.55-1.30) Estimat Glomerular Filtration Rate > 60 mL/min (>60) Glucose Level 128 MG/DL (74-106) H Calcium Level 7.9 MG/DL (8.5-10.1) L Total Bilirubin 0.4 MG/DL (0.2-1.0) Aspartate Amino Transf (AST/SGOT) 34 U/L (15-37) Alanine Aminotransferase (ALT/SGPT) 37 U/L (12-78) Alkaline Phosphatase 60 U/L (46-116) Total Protein 6.0 G/DL (6.4-8.2) L Albumin 1.4 G/DL (3.4-5.0) L Globulin 4.6 g/dL Albumin/Globulin Ratio 0.3 (1.0-2.7) L Arterial Blood pH 7.368 (7.350-7.450) Arterial Blood Partial Pressure CO2 48.0 mmHg (35.0-45.0) H Arterial Blood Partial Pressure O2 206.6 mmHg (75.0-100.0) H Arterial Blood HCO3 27.0 mmol/L (22.0-26.0) H Arterial Blood Oxygen Saturation 99.1 % (95-100) Arterial Blood Base Excess 1.3 (-2-2) Freddy Test Positive Current Medications Medications (Trade) Dose Ordered Sig/Aleksander Route PRN Reason Start Time Stop Time Status Last Admin Dose Admin Acetaminophen (Tylenol) 650 mg Q4H PRN NG Temp >100.5 09/10/20 23:15 10/10/20 23:14 09/21/20 19:20 Al Hydroxide/Mg Hydroxide (Mylanta) 30 ml Q4H PRN NG Constipation 09/11/20 00:15 10/10/20 23:14 Ascorbic Acid (Vitamin C) 250 mg DAILY ORAL 09/18/20 09:00 10/18/20 08:59 09/22/20 09:40 Diphenoxylate HCl/ Atropine (Lomotil) 2.5 mg Q4H PRN ORAL Diarrhea 09/20/20 08:15 10/20/20 08:14 Finasteride (Proscar) 5 mg DAILY ORAL 09/13/20 09:00 12/12/20 08:59 09/22/20 09:40 Lorazepam (Ativan 2mg/ml 1ml) 1 mg Q3H PRN IV For Anxiety/Agitation 09/21/20 12:30 09/28/20 12:29 09/21/20 17:53 Multivitamins (Multivitamins) 1 tab DAILY ORAL 09/18/20 09:00 10/18/20 08:59 09/22/20 09:40 Ondansetron HCl (Zofran) 4 mg Q6H PRN IVP Nausea & Vomiting 09/10/20 23:15 10/10/20 23:14 Pantoprazole (Protonix) 40 mg DAILY IVP 09/11/20 09:00 10/11/20 08:59 09/22/20 09:40 Piperacillin Sod/ Tazobactam Sod 4.5 gm/Sodium Chloride 110 ml @ 27.5 mls/hr EVERY 8 HOURS IVPB 09/21/20 14:00 09/26/20 13:59 09/22/20 06:00 Tamsulosin HCl (Flomax) 0.4 mg BEDTIME ORAL 09/12/20 21:00 10/12/20 20:59 09/21/20 21:43 Valproic Acid (Depakene) 1,000 mg BEDTIME NG 09/16/20 21:00 10/31/20 20:59 09/21/20 21:43 Vancomycin HCl (Vanco pharmacy to dose) 1 ea DAILY PRN MISC Per rx protocol 09/16/20 08:45 10/16/20 08:44 Vancomycin HCl 1 gm/Sodium Chloride 275 ml @ 184 mls/hr Q12H IVPB 09/21/20 11:00 09/26/20 10:59 09/22/20 11:06 Zinc Sulfate (Zinc Sulfate) 220 mg DAILY ORAL 09/18/20 09:00 09/28/20 08:59 09/22/20 09:00 Martha Collins MD Sep 22, 2020 11:39
[2020-09-22] MEDS ORDERED: 1/2 NS 1000ml IV ONE (11:52)
[2020-09-22] MEDS ORDERED: Sterile Water Irrig 1000ml IRRIG ONE (11:52)
[2020-09-22] MEDS ORDERED: Tubing IV Secondary IV ONE (11:52)
--- NOTE | 2020-09-22 12:52 | General Progress Note ---
Subjective ROS Limited/Unobtainable: Yes Constitutional: Reports: malaise, weakness HEENT: Reports: no symptoms Cardiovascular: Reports: edema Respiratory: Reports: SOB with excertion, sputum Gastrointestinal/Abdominal: Reports: difficulty swallowing Genitourinary: Reports: no symptoms Neurologic/Psychiatric: Reports: anxiety, depressed, pre-existing deficit Endocrine: Reports: no symptoms Hematologic/Lymphatic: Reports: anemia Allergies: Coded Allergies: No Known Allergies (Unverified , 09/10/20) All Systems: reviewed and negative except above Subjective Reintubated for respiratory distress and hypoxemia. Stable on the ventilator. No fevers. Labs reviewed. On multiple IV antibiotics. Chest x-ray with worsening infiltrate. Objective Last 24 Hour Vital Signs Date Time Temp Pulse Resp B/P (MAP) Pulse Ox O2 Delivery O2 Flow Rate FiO2 09/22/20 10:00 104 33 96/63 (74) 97 09/22/20 09:00 101 28 98/63 (75) 97 09/22/20 08:00 98.6 103 34 95/50 (65) 98 09/22/20 08:00 104 09/22/20 08:00 Mechanical Ventilator Mechanical Ventilator 09/22/20 07:30 105 27 100 09/22/20 07:00 103 34 98/60 (73) 99 09/22/20 06:00 103 34 100/98 (99) 96 09/22/20 05:00 109 23 111/66 (81) 97 09/22/20 04:00 103 09/22/20 04:00 Mechanical Ventilator Mechanical Ventilator 09/22/20 04:00 98.5 103 25 107/67 (80) 100 09/22/20 04:00 100 09/22/20 03:41 102 27 100 09/22/20 03:00 102 16 93/61 (72) 100 09/22/20 02:02 103 24 90/60 (70) 100 09/22/20 02:00 103 25 89/61 (70) 100 09/22/20 01:00 105 26 109/55 (73) 100 09/22/20 00:00 Mechanical Ventilator Mechanical Ventilator 09/22/20 00:00 106 09/22/20 00:00 100 09/22/20 00:00 98.7 104 29 92/58 (69) 99 09/21/20 23:02 108 28 100 09/21/20 23:00 108 24 104/69 (81) 99 09/21/20 22:00 110 25 99/61 (74) 98 09/21/20 21:00 98.9 112 27 93/67 (76) 97 09/21/20 20:00 100 09/21/20 20:00 112 09/21/20 20:00 112 15 106/61 (76) 96 09/21/20 20:00 Mechanical Ventilator Mechanical Ventilator 09/21/20 19:13 112 27 100 09/21/20 19:00 112 25 104/65 (78) 95 09/21/20 18:23 119 18 91/69 94 09/21/20 18:00 99.0 120 22 106/66 (79) 96 09/21/20 17:53 122 26 120/75 97 09/21/20 17:00 121 38 120/75 (90) 96 09/21/20 16:00 106 09/21/20 16:00 100.0 112 24 109/66 (80) 96 09/21/20 16:00 100 09/21/20 16:00 Mechanical Ventilator Mechanical Ventilator 09/21/20 15:00 105 20 97/61 (73) 96 09/21/20 14:48 103 18 100 09/21/20 14:00 101 32 101/62 (75) 95 09/21/20 13:07 105 28 91/58 94 09/21/20 13:00 105 28 91/58 (69) 94 Intake and Output 09/21/20 09/22/20 19:00 07:00 Intake Total 635.0 ml 772.5 ml Output Total 555 ml 420 ml Balance 80.0 ml 352.5 ml Free Water 40 ml 100 ml IV Total 385.0 ml 82.5 ml Tube Feeding 210 ml 590 ml Output Urine Total 505 ml 420 ml Stool Total 50 ml # Bowel Movements 1 1 Laboratory Tests 09/22/20 05:05: White Blood Count 21.7H, Red Blood Count 3.54L, Hemoglobin 10.2L, Hematocrit 29.2L, Mean Corpuscular Volume 82, Mean Corpuscular Hemoglobin 28.7, Mean Corpuscular Hemoglobin Concent 34.9, Red Cell Distribution Width 15.9H, Platelet Count 226, Mean Platelet Volume 7.6, Neutrophils (%) (Auto) , Lymphocytes (%) (Auto) , Monocytes (%) (Auto) , Eosinophils (%) (Auto) , Basophils (%) (Auto) , Differential Total Cells Counted 100, Neutrophils % (Manual) 86H, Lymphocytes % (Manual) 1L, Monocytes % (Manual) 3, Eosinophils % (Manual) 0, Basophils % (Manual) 0, Band Neutrophils 10H, Platelet Estimate Adequate, Platelet Morphology Normal, Hypochromasia 1+, Anisocytosis 1+, Sodium Level 146H, Potassium Level 4.0, Chloride Level 110H, Carbon Dioxide Level 28, Blood Urea Nitrogen 40H, Creatinine 1.2, Estimat Glomerular Filtration Rate > 60, Glucose Level 128H, Calcium Level 7.9L, Total Bilirubin 0.4, Aspartate Amino Transf ( AST/SGOT) 34, Alanine Aminotransferase (ALT/SGPT) 37, Alkaline Phosphatase 60, Total Protein 6.0L, Albumin 1.4L, Globulin 4.6, Albumin/Globulin Ratio 0.3L 09/22/20 08:38: Arterial Blood pH 7.368, Arterial Blood Partial Pressure CO2 48.0H, Arterial Blood Partial Pressure O2 206.6H, Arterial Blood HCO3 27.0H, Arterial Blood Oxygen Saturation 99.1, Arterial Blood Base Excess 1.3, Freddy Test Positive Height (Feet): 5 Height (Inches): 7.00 Weight (Pounds): 121 Objective General Appearance: WD/WN, confused EENT: normal ENT inspection Neck: normal alignment, supple Cardiovascular: normal rate, regular rhythm Respiratory/Chest: rhonchi - bilaterally Abdomen: normal bowel sounds, non tender, soft, no organomegaly Edema: no edema noted Leg (L), no edema noted Leg (R) Neurologic: java lead II-XII grossly normal, responsive, disoriented Lymphatic: normal anterior cervical (L), normal anterior cervical (R), normal posterior cervical (L), normal posterior cervical (R) Assessment/Plan Problem List: (1) PNA (pneumonia) ICD Codes: J18.9 - Pneumonia, unspecified organism SNOMED: 562681883 (2) UTI (urinary tract infection) ICD Codes: N39.0 - Urinary tract infection, site not specified SNOMED: 41814810 (3) Fever ICD Codes: R50.9 - Fever, unspecified SNOMED: 375454983 Qualifiers: Qualified Codes: R50.9 - Fever, unspecified (4) Decubitus skin ulcer ICD Codes: L89.90 - Pressure ulcer of unspecified site, unspecified stage SNOMED: 359462723 (5) Malnutrition ICD Codes: E46 - Unspecified protein-calorie malnutrition SNOMED: 00946886 (6) Severe sepsis ICD Codes: A41.9 - Sepsis, unspecified organism; R65.20 - Severe sepsis without septic shock SNOMED: 05177501 (7) Hematuria ICD Codes: R31.9 - Hematuria, unspecified SNOMED: 96183306 Status: stable Assessment/Plan: iv abx per id follow up cultures scd lomotil for diarrhea vent support suctioning as needed suctioning monitor abg monitor cxr critical guarded Jason Layne MD Sep 22, 2020 12:52
--- NOTE | 2020-09-22 19:10 | NUR ---
NURSE HAND-OFF REPORT: Latest Vital Signs: Temperature 98.6 , Pulse 108 , B/P 122 /74 , Respiratory Rate 28 , O2 SAT 99 , Mechanical Ventilator, O2 Flow Rate 15.0 . Vital Sign Comment: N/A EKG Rhythm: Sinus Tachycardia Rhythm change?: N Notified?: Y -Dr Jacklyn BENITEZ Response: No New Orders Received Latest Schultz Fall Score: 70 Fall Risk: High Risk Safety Measures: Call light Within Reach, Bed Alarm Zone 1, Side Rails Side Rails x3, Bed position Low and Locked. Fall Precautions: Yellow Socks Door Sign Patient Fall Education Report given to ARTEMIO Ellis.
--- NOTE | 2020-09-22 19:30 | NUR ---
NURSE NOTES: Received pt in bed, obtunded, on vent via ETT, not showing any signs of distress at present settings. NGT on the right patent with Jevity running at 60cc/hr with no residuals noted. Lt and Rt HL intact. FC in place draining yellow to orange urine. VSS and pt is sinus tach on the monitor.
[2020-09-22] MEDS: Valproic Acid 250mg/5ml Liquid NG SCH (20:19)
[2020-09-22] MEDS: Tamsulosin 0.4mg cap ORAL SCH (20:19)
--- NOTE | 2020-09-22 23:12 | Surgery Progress Note ---
Surgery Progress Note Subjective Additional Comments weaning vent will plan trach when stable Objective Last 24 Hour Vital Signs Date Time Temp Pulse Resp B/P (MAP) Pulse Ox O2 Delivery O2 Flow Rate FiO2 09/22/20 22:00 116 31 119/73 (88) 100 09/22/20 21:00 109 30 125/71 (89) 99 09/22/20 20:00 108 09/22/20 20:00 80 09/22/20 20:00 97.4 109 28 127/78 (94) 99 09/22/20 20:00 Mechanical Ventilator Mechanical Ventilator 09/22/20 19:34 108 28 80 09/22/20 19:00 109 30 122/74 (90) 99 09/22/20 18:00 109 30 112/75 (87) 99 09/22/20 17:00 103 28 113/77 (89) 99 09/22/20 16:00 103 09/22/20 16:00 Mechanical Ventilator Mechanical Ventilator 09/22/20 16:00 60 09/22/20 16:00 102 19 117/65 (82) 99 09/22/20 15:23 102 25 80 09/22/20 15:00 108 31 129/73 (91) 98 09/22/20 14:00 105 31 131/76 (94) 98 09/22/20 13:00 97 22 102/60 (74) 99 09/22/20 12:00 60 09/22/20 12:00 102 09/22/20 12:00 102 30 107/62 (77) 98 09/22/20 12:00 Mechanical Ventilator Mechanical Ventilator 09/22/20 11:14 103 26 100 09/22/20 11:00 107 32 111/75 (87) 98 09/22/20 10:00 104 33 96/63 (74) 97 09/22/20 09:00 101 28 98/63 (75) 97 09/22/20 08:50 60 09/22/20 08:00 98.6 103 34 95/50 (65) 98 09/22/20 08:00 100 09/22/20 08:00 104 09/22/20 08:00 Mechanical Ventilator Mechanical Ventilator 09/22/20 07:30 105 27 100 09/22/20 07:00 103 34 98/60 (73) 99 09/22/20 06:00 103 34 100/98 (99) 96 09/22/20 05:00 109 23 111/66 (81) 97 09/22/20 04:00 103 09/22/20 04:00 Mechanical Ventilator Mechanical Ventilator 09/22/20 04:00 98.5 103 25 107/67 (80) 100 09/22/20 04:00 100 09/22/20 03:41 102 27 100 09/22/20 03:00 102 16 93/61 (72) 100 09/22/20 02:02 103 24 90/60 (70) 100 09/22/20 02:00 103 25 89/61 (70) 100 09/22/20 01:00 105 26 109/55 (73) 100 09/22/20 00:00 Mechanical Ventilator Mechanical Ventilator 09/22/20 00:00 106 09/22/20 00:00 100 09/22/20 00:00 98.7 104 29 92/58 (69) 99 I&O Intake and Output 09/21/20 09/22/20 19:00 07:00 Intake Total 635.0 ml 772.5 ml Output Total 555 ml 420 ml Balance 80.0 ml 352.5 ml Free Water 40 ml 100 ml IV Total 385.0 ml 82.5 ml Tube Feeding 210 ml 590 ml Output Urine Total 505 ml 420 ml Stool Total 50 ml # Bowel Movements 1 1 Dressing: saturated Cardiovascular: RSR Respiratory: decreased breath sounds Abdomen: non-tender, present bowel sounds Extremities: no tenderness, no cyanosis Laboratory Tests Test 09/22/20 05:05 09/22/20 08:38 White Blood Count 21.7 K/UL (4.8-10.8) H Red Blood Count 3.54 M/UL (4.70-6.10) L Hemoglobin 10.2 G/DL (14.2-18.0) L Hematocrit 29.2 % (42.0-52.0) L Mean Corpuscular Volume 82 FL (80-99) Mean Corpuscular Hemoglobin 28.7 PG (27.0-31.0) Mean Corpuscular Hemoglobin Concent 34.9 G/DL (32.0-36.0) Red Cell Distribution Width 15.9 % (11.6-14.8) H Platelet Count 226 K/UL (150-450) Mean Platelet Volume 7.6 FL (6.5-10.1) Neutrophils (%) (Auto) % (45.0-75.0) Lymphocytes (%) (Auto) % (20.0-45.0) Monocytes (%) (Auto) % (1.0-10.0) Eosinophils (%) (Auto) % (0.0-3.0) Basophils (%) (Auto) % (0.0-2.0) Differential Total Cells Counted 100 Neutrophils % (Manual) 86 % (45-75) H Lymphocytes % (Manual) 1 % (20-45) L Monocytes % (Manual) 3 % (1-10) Eosinophils % (Manual) 0 % (0-3) Basophils % (Manual) 0 % (0-2) Band Neutrophils 10 % (0-8) H Platelet Estimate Adequate Platelet Morphology Normal Hypochromasia 1+ Anisocytosis 1+ Sodium Level 146 MMOL/L (136-145) H Potassium Level 4.0 MMOL/L (3.5-5.1) Chloride Level 110 MMOL/L (98-107) H Carbon Dioxide Level 28 MMOL/L (21-32) Blood Urea Nitrogen 40 mg/dL (7-18) H Creatinine 1.2 MG/DL (0.55-1.30) Estimat Glomerular Filtration Rate > 60 mL/min (>60) Glucose Level 128 MG/DL (74-106) H Calcium Level 7.9 MG/DL (8.5-10.1) L Total Bilirubin 0.4 MG/DL (0.2-1.0) Aspartate Amino Transf (AST/SGOT) 34 U/L (15-37) Alanine Aminotransferase (ALT/SGPT) 37 U/L (12-78) Alkaline Phosphatase 60 U/L (46-116) Total Protein 6.0 G/DL (6.4-8.2) L Albumin 1.4 G/DL (3.4-5.0) L Globulin 4.6 g/dL Albumin/Globulin Ratio 0.3 (1.0-2.7) L Arterial Blood pH 7.368 (7.350-7.450) Arterial Blood Partial Pressure CO2 48.0 mmHg (35.0-45.0) H Arterial Blood Partial Pressure O2 206.6 mmHg (75.0-100.0) H Arterial Blood HCO3 27.0 mmol/L (22.0-26.0) H Arterial Blood Oxygen Saturation 99.1 % (95-100) Arterial Blood Base Excess 1.3 (-2-2) Freddy Test Positive Plan Problems: (1) Fever Assessment & Plan: maybe developing pneumonia cont abx pulm input thank you (2) Decubitus skin ulcer Assessment & Plan: Patient identified on admission to have multiple scabs on the left arm. mild open scabs with eschar. no drainage. no significant cellulitis. bruising no bilateral extremities noted. no signs of abuse. likely from agitation Sacral coccygeal noted to have a DTI 4.3X2.5CM. which is dark purple . RECOMMEND-CLEAN WITH SALINE, PAT DRY AND APPLY CALAZINE. COVER WITH OPTIFOAM DRESSING. REPLACE EVERY 3 DAYS OR NEEDED LEFT ISCHIUM- STAGE I PRESSURE ULCER MEASURES 4.5X1.7CM. NON-BLANCHABLE ERYTHEMA. RECOMMEND- APPLY CALAZINE AND COVER WITH OPTIFOAM DRESSING. REPLACE EVERY 7 DAYS. 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 Roman is a 70 year old male BIBA to ED of [facility] on 09/10/2020 around 14:00 due to fever. He was found to be hypotensive 91/55 (67), Temp: 100.0, leukocytosis 20.8k and subsequently transferred to ICU for septic shock. The blood culture is reportedly positive for gram positive cocci. NG tube was placed, KUB confirmed the placement to day. Pt is clinically stable with leukocytosis 20.1, improved BUN and creatine, stable hemodynamic without vasopressor. Findings: Mr. Roman is disoriented. He does ot follow commands at this time. Oral cavity is noted to be dried blood concretion likely from NG trauma. No active bleeding site is seen. Due to his level f alertness, already NG tube is in placed, PO trial was not done at this time. Transferred out ICU last night. He is non on tele. Issues: multiple wounds, s.p balaji/nasal/pharyngeal bleeding with blood culture Gram positive cocci leukocytosis trending down from 20k-20k-16k BUN/Creatine trending down from 93/1.9-79/1.3-54/1.1 Temp: 98.1~98.7, Pulse: 62~72, BP: 105/67~120/48, SPO2 98~100% on 2 liter S: Oral cavity is better condition comparison to yesterday. The mucosa is severely erythema without active bleeding. Limited level of alertness for direct therapy. NG in placed O: 1. Laryngeal palpation to trigger spontaneous cough and swallow: Pt triggered cough with laryngeal palpation. Approximately 5~10 seconds after coughing, he triggered swallow. based on this observation, he presents with copious secretion in pharynx and larynx. He continued to have poor secretion management at laryngeal level at this time. NO PO trial was given due to poor secretion at the level of air way with low level of alertness. A: 1. Probable aspiration of his own secretion with poor ability to cough and swallow 2. Dysphagia P: 1. NPO for now 2. Observe his secretion, and level of alertness for PO readiness. DAILY ESTIMATED NEEDS: Needs based on Wound, underweight/ 55kg 30-35 kcals/kg 7984-8913 total kcals 1.25-2 g protein/kg 69-110 g total protein 25-30 mL/kg 5853-4502 total fluid mLs NUTRITION DIAGNOSIS: Increased kcal/prot needs R/T wound healing and underweight status as evidenced by pt admitted w/ wounds including DTI 2 coccyx and stage 1 @ lt ischium, pt @ 73% IBW w/ low BMI per guidelines, s/p NGT insertion, on NGT feeds. CURRENT TF:Jevity 1.2 @ 50ml/hr x 24 hrs ENTERAL NUTRITION RECOMMENDATIONS: Jevity 1.2 @ 60ml/hr x 24 hrs to provide 1440ml, 1728kcal, 80g prot, 1160ml free water * As medically appropriate, increase goal rate to 60ml/hr x 24 hrs to meet 100% est kcal/prot needs * HOB over 30 degrees/ without IVF, H2O flush of 100ml q 8hrs ADDITIONAL RECOMMENDATIONS: * Calibrated daily bedscale wt Per SNF: HT=70" * Wound healing: TF rec @ goal will provide 100% RDI add Vit C 250mg QD, ZnSO4 220mg QD x 10days, Davidson BID via NGT * Monitor BGs, need for NISS w/ TF * Monitor lytes, replete as needed- high risk for refeeding syndrome -> check f/up phos and mag (4) Severe sepsis Assessment & Plan: will likely need trach and peg. patient needs protected airway and nutrition full code no family and unable to consent medically necessary. will plan soon (5) Open upper arm wound (6) Hematuria Assessment & Plan: as per urology Aubrey Gutierrez Sep 22, 2020 23:11
[2020-09-23] VITALS (24 sets, daily range): BP systolic 98–131; BP diastolic 59–77
--- NOTE | 2020-09-23 | NUR ---
NURSE NOTES: Pt remains stable with stable VS. Temp now is 99.4. Cooling measures will be initiated. Pt remains SR on the monitor.
--- NOTE | 2020-09-23 05:00 | NUR ---
NURSE NOTES: Pt remains stable with stable VS. AM care given. Pt remains sinus tach on the monitor.
[2020-09-23] MEDS: Piperacillin/Tazobactam 4.5 GM in NS 110 ML IVPB SCH ×3 (05:59→21:28)
--- NOTE | 2020-09-23 07:17 | NUR ---
NURSE NOTES: Received report from Caleb ULLOA.
--- NOTE | 2020-09-23 07:25 | NUR ---
NURSE HAND-OFF REPORT: Latest Vital Signs: Temperature 98.4 , Pulse 115 , B/P 112 /67 , Respiratory Rate 27 , O2 SAT 99 , Mechanical Ventilator, O2 Flow Rate 15.0 . Vital Sign Comment: EKG Rhythm: Sinus Tachycardia Rhythm change?: N Notified?: Y -Dr Jacklyn BENITEZ Response: No New Orders Received Latest Schultz Fall Score: 70 Fall Risk: High Risk Safety Measures: Call light Within Reach, Bed Alarm Zone 1, Side Rails Side Rails x3, Bed position Low and Locked. Fall Precautions: Yellow Socks Door Sign Patient Fall Education Report given to .
--- NOTE | 2020-09-23 07:46 | General Progress Note ---
Subjective ROS Limited/Unobtainable: Yes Constitutional: Reports: malaise, weakness HEENT: Reports: no symptoms Cardiovascular: Reports: no symptoms Respiratory: Reports: cough, shortness of breath Gastrointestinal/Abdominal: Reports: difficulty swallowing Genitourinary: Reports: no symptoms Neurologic/Psychiatric: Reports: pre-existing deficit Endocrine: Reports: no symptoms Hematologic/Lymphatic: Reports: anemia Allergies: Coded Allergies: No Known Allergies (Unverified , 09/10/20) All Systems: reviewed and negative except above Subjective doing poorly. intubated. labile sats. on 80%. on ngt feeds. poorly responsive. on iv abx. am labs pending Objective Last 24 Hour Vital Signs Date Time Temp Pulse Resp B/P (MAP) Pulse Ox O2 Delivery O2 Flow Rate FiO2 09/23/20 07:00 115 27 112/67 (82) 99 09/23/20 06:00 109 17 117/77 (90) 98 09/23/20 05:00 103 20 110/68 (82) 99 09/23/20 04:00 111 09/23/20 04:00 80 09/23/20 04:00 Mechanical Ventilator Mechanical Ventilator 09/23/20 04:00 98.4 111 29 131/70 (90) 99 09/23/20 03:30 117 31 80 09/23/20 03:00 105 25 100/64 (76) 99 09/23/20 02:00 115 26 116/75 (89) 99 09/23/20 01:00 118 28 122/66 (84) 99 09/23/20 00:00 99.4 114 29 112/67 (82) 99 09/23/20 00:00 80 09/23/20 00:00 Mechanical Ventilator Mechanical Ventilator 09/23/20 00:00 114 09/22/20 23:30 121 25 80 09/22/20 23:00 114 17 99/64 (76) 99 09/22/20 22:00 116 31 119/73 (88) 100 09/22/20 21:00 109 30 125/71 (89) 99 09/22/20 20:00 108 09/22/20 20:00 80 09/22/20 20:00 97.4 109 28 127/78 (94) 99 09/22/20 20:00 Mechanical Ventilator Mechanical Ventilator 09/22/20 19:34 108 28 80 09/22/20 19:00 109 30 122/74 (90) 99 09/22/20 18:00 109 30 112/75 (87) 99 09/22/20 17:00 103 28 113/77 (89) 99 09/22/20 16:00 103 09/22/20 16:00 Mechanical Ventilator Mechanical Ventilator 09/22/20 16:00 60 09/22/20 16:00 102 19 117/65 (82) 99 09/22/20 15:23 102 25 80 09/22/20 15:00 108 31 129/73 (91) 98 09/22/20 14:00 105 31 131/76 (94) 98 09/22/20 13:00 97 22 102/60 (74) 99 09/22/20 12:00 60 09/22/20 12:00 102 09/22/20 12:00 102 30 107/62 (77) 98 09/22/20 12:00 Mechanical Ventilator Mechanical Ventilator 09/22/20 11:14 103 26 100 09/22/20 11:00 107 32 111/75 (87) 98 09/22/20 10:00 104 33 96/63 (74) 97 09/22/20 09:00 101 28 98/63 (75) 97 09/22/20 08:50 60 09/22/20 08:00 98.6 103 34 95/50 (65) 98 09/22/20 08:00 100 09/22/20 08:00 104 09/22/20 08:00 Mechanical Ventilator Mechanical Ventilator Intake and Output 09/22/20 09/23/20 19:00 07:00 Intake Total 820 ml 780 ml Output Total 390 ml 351 ml Balance 430 ml 429 ml Free Water 100 ml 60 ml Tube Feeding 720 ml 720 ml Output Urine Total 390 ml 351 ml # Bowel Movements 1 5 Laboratory Tests 09/22/20 08:38: Arterial Blood pH 7.368, Arterial Blood Partial Pressure CO2 48.0H, Arterial Blood Partial Pressure O2 206.6H, Arterial Blood HCO3 27.0H, Arterial Blood Oxygen Saturation 99.1, Arterial Blood Base Excess 1.3, Freddy Test Positive Height (Feet): 5 Height (Inches): 7.00 Weight (Pounds): 121 Objective General Appearance: WD/WN, confused. orally intubated EENT: normal ENT inspection Neck: normal alignment, supple Cardiovascular: normal rate, regular rhythm Respiratory/Chest: rhonchi - bilaterally. diminished BS Abdomen: normal bowel sounds, non tender, soft, no organomegaly Edema: no edema noted Leg (L), no edema noted Leg (R) Neurologic: assembly associate II-XII grossly normal, responsive, disoriented Lymphatic: normal anterior cervical (L), normal anterior cervical (R), normal posterior cervical (L), normal posterior cervical (R) Assessment/Plan Problem List: (1) PNA (pneumonia) ICD Codes: J18.9 - Pneumonia, unspecified organism SNOMED: 712515876 (2) UTI (urinary tract infection) ICD Codes: N39.0 - Urinary tract infection, site not specified SNOMED: 06117709 (3) Fever ICD Codes: R50.9 - Fever, unspecified SNOMED: 423627617 Qualifiers: Qualified Codes: R50.9 - Fever, unspecified (4) Decubitus skin ulcer ICD Codes: L89.90 - Pressure ulcer of unspecified site, unspecified stage SNOMED: 887287124 (5) Malnutrition ICD Codes: E46 - Unspecified protein-calorie malnutrition SNOMED: 86059398 (6) Severe sepsis ICD Codes: A41.9 - Sepsis, unspecified organism; R65.20 - Severe sepsis without septic shock SNOMED: 29071197 (7) Hematuria ICD Codes: R31.9 - Hematuria, unspecified SNOMED: 68620255 Status: stable Assessment/Plan: iv abx per id follow up cultures scd lomotil for diarrhea vent support suctioning as needed wean as able monitor abg monitor cxr critical guarded Jason Layne MD Sep 23, 2020 07:46
--- NOTE | 2020-09-23 08:00 | NUR ---
NURSE NOTES: Pt. in bed, obtunded. No sign of distress. Pt. with EET with setting AC18/VT500/Fi O2 at 80%/P10. No grimacing noted. NGT in placed at right nares paten/intact running Jevity 1.2 at 60cc/hr. HOB elevated at all times. F/C in placed patent/intact draining yellow colored urine. IV site at right FA #20g and left FA #20g. TKO. Bed in low position, locked. Call light within reach. Will cont. to monitor.
--- NOTE | 2020-09-23 08:15 | NUR ---
NURSE NOTES: Seen by Dr. Layne with new orders for labs in A.M
[2020-09-23] MEDS: Zinc Sulfate 220mg ORAL SCH (08:56)
[2020-09-23] MEDS: Pantoprazole Inj IVP SCH (08:56)
[2020-09-23] MEDS: Ascorbic Acid 500mg tab ORAL SCH (08:56)
--- NOTE | 2020-09-23 09:08 | Urology Progress Note ---
Assessment/Plan Status: stable Assessment/Plan: 1. Gross hematuria. 2. Pyuria and possible UTI. 3. Proteinuria. 4. BPH. 5. Urinary retention. 6. Probable neurogenic bladder. 7. Possible sepsis. monitor clinically maintain andrade hand irrigated and do PRN abx as ordered flomax and proscar cysto electively voiding trial at some point? Subjective Allergies: Coded Allergies: No Known Allergies (Unverified , 09/10/20) Subjective on vent Objective Last 24 Hour Vital Signs Date Time Temp Pulse Resp B/P (MAP) Pulse Ox O2 Delivery O2 Flow Rate FiO2 09/23/20 08:00 99.6 117 30 122/70 (87) 99 09/23/20 07:00 115 27 112/67 (82) 99 09/23/20 06:00 109 17 117/77 (90) 98 09/23/20 05:00 103 20 110/68 (82) 99 09/23/20 04:00 111 09/23/20 04:00 80 09/23/20 04:00 Mechanical Ventilator Mechanical Ventilator 09/23/20 04:00 98.4 111 29 131/70 (90) 99 09/23/20 03:30 117 31 80 09/23/20 03:00 105 25 100/64 (76) 99 09/23/20 02:00 115 26 116/75 (89) 99 09/23/20 01:00 118 28 122/66 (84) 99 09/23/20 00:00 99.4 114 29 112/67 (82) 99 09/23/20 00:00 80 09/23/20 00:00 Mechanical Ventilator Mechanical Ventilator 09/23/20 00:00 114 09/22/20 23:30 121 25 80 09/22/20 23:00 114 17 99/64 (76) 99 09/22/20 22:00 116 31 119/73 (88) 100 09/22/20 21:00 109 30 125/71 (89) 99 09/22/20 20:00 108 09/22/20 20:00 80 09/22/20 20:00 97.4 109 28 127/78 (94) 99 09/22/20 20:00 Mechanical Ventilator Mechanical Ventilator 09/22/20 19:34 108 28 80 09/22/20 19:00 109 30 122/74 (90) 99 09/22/20 18:00 109 30 112/75 (87) 99 09/22/20 17:00 103 28 113/77 (89) 99 09/22/20 16:00 103 09/22/20 16:00 Mechanical Ventilator Mechanical Ventilator 09/22/20 16:00 60 09/22/20 16:00 102 19 117/65 (82) 99 09/22/20 15:23 102 25 80 09/22/20 15:00 108 31 129/73 (91) 98 09/22/20 14:00 105 31 131/76 (94) 98 09/22/20 13:00 97 22 102/60 (74) 99 09/22/20 12:00 60 09/22/20 12:00 102 09/22/20 12:00 102 30 107/62 (77) 98 09/22/20 12:00 Mechanical Ventilator Mechanical Ventilator 09/22/20 11:14 103 26 100 09/22/20 11:00 107 32 111/75 (87) 98 09/22/20 10:00 104 33 96/63 (74) 97 Intake and Output 09/22/20 09/23/20 19:00 07:00 Intake Total 820 ml 780 ml Output Total 390 ml 351 ml Balance 430 ml 429 ml Free Water 100 ml 60 ml Tube Feeding 720 ml 720 ml Output Urine Total 390 ml 351 ml # Bowel Movements 1 5 Microbiology Date/Time Source Procedure Growth Status 09/18/20 18:30 Stool Clostridium difficile Toxin Assay - Final Complete 09/18/20 03:50 Sputum Gram Stain - Final Complete 09/18/20 03:50 Sputum Culture - Final Staphylococcus Aureus - Mrsa Complete 09/17/20 12:58 Blood Blood Culture - Final NO GROWTH AFTER 5 DAYS Complete 09/10/20 20:05 Urine,Clean Catch Urine Culture - Final NO GROWTH AFTER 48 HOURS Complete 09/10/20 17:15 Rectum VRE Culture - Final Enterococcus Faecalis - Vre Complete Current Medications Medications (Trade) Dose Ordered Sig/Aleksander Route PRN Reason Start Time Stop Time Status Last Admin Dose Admin Acetaminophen (Tylenol) 650 mg Q4H PRN NG Temp >100.5 09/10/20 23:15 10/10/20 23:14 09/21/20 19:20 Al Hydroxide/Mg Hydroxide (Mylanta) 30 ml Q4H PRN NG Constipation 09/11/20 00:15 10/10/20 23:14 Ascorbic Acid (Vitamin C) 250 mg DAILY ORAL 09/18/20 09:00 10/18/20 08:59 09/23/20 08:56 Diphenoxylate HCl/ Atropine (Lomotil) 2.5 mg Q4H PRN ORAL Diarrhea 09/20/20 08:15 10/20/20 08:14 Finasteride (Proscar) 5 mg DAILY ORAL 09/13/20 09:00 12/12/20 08:59 09/23/20 08:56 Lorazepam (Ativan 2mg/ml 1ml) 1 mg Q3H PRN IV For Anxiety/Agitation 09/21/20 12:30 09/28/20 12:29 09/21/20 17:53 Multivitamins (Multivitamins) 1 tab DAILY ORAL 09/18/20 09:00 10/18/20 08:59 09/23/20 08:56 Ondansetron HCl (Zofran) 4 mg Q6H PRN IVP Nausea & Vomiting 09/10/20 23:15 10/10/20 23:14 Pantoprazole (Protonix) 40 mg DAILY IVP 09/11/20 09:00 10/11/20 08:59 09/23/20 08:56 Piperacillin Sod/ Tazobactam Sod 4.5 gm/Sodium Chloride 110 ml @ 27.5 mls/hr EVERY 8 HOURS IVPB 09/21/20 14:00 09/26/20 13:59 09/23/20 05:59 Tamsulosin HCl (Flomax) 0.4 mg BEDTIME ORAL 09/12/20 21:00 10/12/20 20:59 09/22/20 20:19 Valproic Acid (Depakene) 1,000 mg BEDTIME NG 09/16/20 21:00 10/31/20 20:59 09/22/20 20:19 Vancomycin HCl (Vanco pharmacy to dose) 1 ea DAILY PRN MISC Per rx protocol 09/16/20 08:45 10/16/20 08:44 Vancomycin HCl 1 gm/Sodium Chloride 275 ml @ 184 mls/hr Q12H IVPB 09/21/20 11:00 09/26/20 10:59 09/22/20 22:35 Zinc Sulfate (Zinc Sulfate) 220 mg DAILY ORAL 09/18/20 09:00 09/28/20 08:59 09/23/20 08:56 Height (Feet): 5 Height (Inches): 7.00 Weight (Pounds): 121 Objective exam stable urine clearing Levi Brunson MD Sep 23, 2020 09:08
--- NOTE | 2020-09-23 09:21 | General Progress Note ---
Subjective ROS Limited/Unobtainable: No Allergies: Coded Allergies: No Known Allergies (Unverified , 09/10/20) Objective Last 24 Hour Vital Signs Date Time Temp Pulse Resp B/P (MAP) Pulse Ox O2 Delivery O2 Flow Rate FiO2 09/23/20 08:00 99.6 117 30 122/70 (87) 99 09/23/20 07:42 124 29 80 09/23/20 07:00 115 27 112/67 (82) 99 09/23/20 06:00 109 17 117/77 (90) 98 09/23/20 05:00 103 20 110/68 (82) 99 09/23/20 04:00 111 09/23/20 04:00 80 09/23/20 04:00 Mechanical Ventilator Mechanical Ventilator 09/23/20 04:00 98.4 111 29 131/70 (90) 99 09/23/20 03:30 117 31 80 09/23/20 03:00 105 25 100/64 (76) 99 09/23/20 02:00 115 26 116/75 (89) 99 09/23/20 01:00 118 28 122/66 (84) 99 09/23/20 00:00 99.4 114 29 112/67 (82) 99 09/23/20 00:00 80 09/23/20 00:00 Mechanical Ventilator Mechanical Ventilator 09/23/20 00:00 114 09/22/20 23:30 121 25 80 09/22/20 23:00 114 17 99/64 (76) 99 09/22/20 22:00 116 31 119/73 (88) 100 09/22/20 21:00 109 30 125/71 (89) 99 09/22/20 20:00 108 09/22/20 20:00 80 09/22/20 20:00 97.4 109 28 127/78 (94) 99 09/22/20 20:00 Mechanical Ventilator Mechanical Ventilator 09/22/20 19:34 108 28 80 09/22/20 19:00 109 30 122/74 (90) 99 09/22/20 18:00 109 30 112/75 (87) 99 09/22/20 17:00 103 28 113/77 (89) 99 09/22/20 16:00 103 09/22/20 16:00 Mechanical Ventilator Mechanical Ventilator 09/22/20 16:00 60 09/22/20 16:00 102 19 117/65 (82) 99 09/22/20 15:23 102 25 80 09/22/20 15:00 108 31 129/73 (91) 98 09/22/20 14:00 105 31 131/76 (94) 98 09/22/20 13:00 97 22 102/60 (74) 99 09/22/20 12:00 60 09/22/20 12:00 102 09/22/20 12:00 102 30 107/62 (77) 98 09/22/20 12:00 Mechanical Ventilator Mechanical Ventilator 09/22/20 11:14 103 26 100 09/22/20 11:00 107 32 111/75 (87) 98 09/22/20 10:00 104 33 96/63 (74) 97 Intake and Output 09/22/20 09/23/20 19:00 07:00 Intake Total 820 ml 780 ml Output Total 390 ml 351 ml Balance 430 ml 429 ml Free Water 100 ml 60 ml Tube Feeding 720 ml 720 ml Output Urine Total 390 ml 351 ml # Bowel Movements 1 5 Height (Feet): 5 Height (Inches): 7.00 Weight (Pounds): 121 General Appearance: no apparent distress EENT: normal ENT inspection Neck: supple Cardiovascular: normal rate Respiratory/Chest: decreased breath sounds Abdomen: normal bowel sounds, non tender, soft Extremities: non-tender Assessment/Plan Status: stable Assessment/Plan: Assessment/Plan Status: stable Assessment/Plan: Assessment - resp failure - NGT dependent - OBS/Dementia - sepsis - diarrhea, C Diff (-) - Azotemia, resolved - CHF - malnutrition , low albumin Recommendations -Vent care / support - abx - supportive care - NGTF - will arrange for PEG placement this week Hima Escalante MD Sep 23, 2020 09:21
--- NOTE | 2020-09-23 09:45 | NUR ---
NURSE NOTES: Seen by Dr. Villasenor with NNO at present.
[2020-09-23 10:41] LABS: HEMATOCRIT 27.6 % (42.0-52.0); HEMOGLOBIN 9.4 G/DL (14.2-18.0); MEAN CORPUSCULAR VOLUME 84 FL (80-99); PLATELET COUNT 226 K/UL (150-450); RED BLOOD COUNT 3.28 M/UL (4.70-6.10); RED CELL DISTRIBUTION WIDTH 15.7 % (11.6-14.8); WHITE BLOOD COUNT 20.7 K/UL (4.8-10.8)
[2020-09-23 10:47] LABS: ANION GAP 4 mmol/L (5-15); BLOOD UREA NITROGEN 53 mg/dL (7-18); CALCIUM 7.9 MG/DL (8.5-10.1); CARBON DIOXIDE 33 MMOL/L (21-32); CHLORIDE 113 MMOL/L (98-107); CREATININE 1.1 MG/DL (0.55-1.30); POTASSIUM 4.2 MMOL/L (3.5-5.1); SODIUM 149 MMOL/L (136-145)
--- NOTE | 2020-09-23 11:14 | NUR ---
NURSE NOTES: Hand over report given to Lolis ULLOA.
--- NOTE | 2020-09-23 11:30 | NUR ---
NURSE NOTES: Patient received from ARTEMIO Alonzo. Patient is very fatigued. Borderline obtunded however, patient does respond to stimulus, has a gag but does not readily open his eyes. When suctioned patient is very responsive. Patient does not appear in any acute distress, is free from grimacing. Patient is being monitored on the cardiac cath technologist with VS HR 122 BP 146/86 SPO2 100% RR 14. Patient is orally intubated with 7.5 ETT with vent settings AC18/VT500/Fi O2 at 80%/P10. Upon auscultation, patient with BL rhonchi heard. Oral care was performed. Patient with NGT in R nares running Jevity 1.2 at 60cc/hr with no residual, a 50 ml flush was given. Patient is with a Rae catheter in place that is patent and draining YL urine to gravity. Patient is with PIV sites - RFA 20G and LFA 20G TKO. Safety measures are in place with bed locked, in the lowest position, HOB elevated to >30 degrees, call light within reach with side rails up x 3. Will continue to monitor and carry out MD order.
--- NOTE | 2020-09-23 12:05 | General Progress Note ---
Subjective ROS Limited/Unobtainable: Yes Allergies: Coded Allergies: No Known Allergies (Unverified , 09/10/20) Subjective on vent very labile still on high fio2 ICU care reviewed Objective Last 24 Hour Vital Signs Date Time Temp Pulse Resp B/P (MAP) Pulse Ox O2 Delivery O2 Flow Rate FiO2 09/23/20 11:28 109 23 80 09/23/20 10:00 116 29 128/72 (90) 99 09/23/20 09:00 106 27 98/59 (72) 99 09/23/20 08:00 Mechanical Ventilator Mechanical Ventilator 09/23/20 08:00 80 09/23/20 08:00 99.6 117 30 122/70 (87) 99 09/23/20 07:42 124 29 80 09/23/20 07:00 115 27 112/67 (82) 99 09/23/20 06:00 109 17 117/77 (90) 98 09/23/20 05:00 103 20 110/68 (82) 99 09/23/20 04:00 111 09/23/20 04:00 80 09/23/20 04:00 Mechanical Ventilator Mechanical Ventilator 09/23/20 04:00 98.4 111 29 131/70 (90) 99 09/23/20 03:30 117 31 80 09/23/20 03:00 105 25 100/64 (76) 99 09/23/20 02:00 115 26 116/75 (89) 99 09/23/20 01:00 118 28 122/66 (84) 99 09/23/20 00:00 99.4 114 29 112/67 (82) 99 09/23/20 00:00 80 09/23/20 00:00 Mechanical Ventilator Mechanical Ventilator 09/23/20 00:00 114 09/22/20 23:30 121 25 80 09/22/20 23:00 114 17 99/64 (76) 99 09/22/20 22:00 116 31 119/73 (88) 100 09/22/20 21:00 109 30 125/71 (89) 99 09/22/20 20:00 108 09/22/20 20:00 80 09/22/20 20:00 97.4 109 28 127/78 (94) 99 09/22/20 20:00 Mechanical Ventilator Mechanical Ventilator 09/22/20 19:34 108 28 80 09/22/20 19:00 109 30 122/74 (90) 99 09/22/20 18:00 109 30 112/75 (87) 99 09/22/20 17:00 103 28 113/77 (89) 99 09/22/20 16:00 103 09/22/20 16:00 Mechanical Ventilator Mechanical Ventilator 09/22/20 16:00 60 09/22/20 16:00 102 19 117/65 (82) 99 09/22/20 15:23 102 25 80 09/22/20 15:00 108 31 129/73 (91) 98 09/22/20 14:00 105 31 131/76 (94) 98 09/22/20 13:00 97 22 102/60 (74) 99 Intake and Output 09/22/20 09/23/20 19:00 07:00 Intake Total 820 ml 780 ml Output Total 390 ml 351 ml Balance 430 ml 429 ml Free Water 100 ml 60 ml Tube Feeding 720 ml 720 ml Output Urine Total 390 ml 351 ml # Bowel Movements 1 5 Laboratory Tests 09/23/20 09:15: White Blood Count 20.7H, Red Blood Count 3.28L, Hemoglobin 9.4L, Hematocrit 27.6L, Mean Corpuscular Volume 84, Mean Corpuscular Hemoglobin 28.5, Mean Corpuscular Hemoglobin Concent 34.0, Red Cell Distribution Width 15.7H, Platelet Count 226, Mean Platelet Volume 7.3, Neutrophils (%) (Auto) , Lymphocytes (%) (Auto) , Monocytes (%) (Auto) , Eosinophils (%) (Auto) , Basophils (%) (Auto) , Differential Total Cells Counted 100, Neutrophils % (Manual) 82H, Lymphocytes % (Manual) 4L, Monocytes % (Manual) 10, Eosinophils % (Manual) 1, Basophils % (Manual) 0, Band Neutrophils 3, Platelet Estimate Adequate, Platelet Morphology Normal, Hypochromasia 1+, Anisocytosis 1+, Sodium Level 149H, Potassium Level 4.2, Chloride Level 113H, Carbon Dioxide Level 33H, Anion Gap 4L, Blood Urea Nitrogen 53H, Creatinine 1.1, Estimat Glomerular Filtration Rate > 60, Glucose Level 155H, Calcium Level 7.9L, Vancomycin Level Trough 20.9H Height (Feet): 5 Height (Inches): 7.00 Weight (Pounds): 121 Objective WDWN chronically ill ETT in place feeding tube in place reduced breath sounds bilaterally with some rhonchi [id number] tachy without MRG NABS nontender no CCE nonfocal poor LOC Assessment/Plan Status: stable Assessment/Plan: IMPRESSION: 1. Acute renal failure. 2. Hypernatremia. 3. Leukocytosis. 4. Possible sepsis. 5. Hypotension. 6. Dementia. 7. Acute on chronic encephalopathy. 8. bcx staph Epi 9. MRSA colonized 10. acute hypoxemic respiratory failure 11. atelectasis/collapse 12. leukocytosis PLAN taper fio2 as able ID noted; monitor wbc follow up on antibiotics renal follow up and monitor renal function and electrolytes monitor oxygen needs vent support as is off load position change monitor imaging d/w consultants and nursing remains critical at present CANNOT OPTIMIZE, NEEDS TRACH/AIRWAY/GT for chronic care management discussed with consultants and CM no family found medications/laboratory data/nursing notes/ICU care reviewed in detail note reviewed and edited care discussed with RN and RT ICU time spent >40 minutes Patel Villasenor MD Sep 23, 2020 12:05
--- NOTE | 2020-09-23 12:15 | NUR ---
NURSE NOTES: Dr Villasenor assessed patient bedside. Wants patient titrated down on FIO2. Patient is saturating at 100%. Will work with RT to ensure that patient stable to titrate down since patient did not tolerate yesterday.
--- NOTE | 2020-09-23 12:41 | Infectious Diseases Prog Note ---
Assessment/Plan Assessment/Plan A 1. Pneumonia with MRSA COVID19 test is negative. 2. Dementia. 3. Leukocytosis 4. Urinary tract infection 5. 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 BPH P 1. continue IV Vancomycin & Zosyn 2. Will f/u cultures Subjective ROS Limited/Unobtainable: Yes Constitutional: Denies: fever Allergies: Coded Allergies: No Known Allergies (Unverified , 09/10/20) Objective Last 24 Hour Vital Signs Date Time Temp Pulse Resp B/P (MAP) Pulse Ox O2 Delivery O2 Flow Rate FiO2 09/23/20 11:28 109 23 80 09/23/20 10:00 116 29 128/72 (90) 99 09/23/20 09:00 106 27 98/59 (72) 99 09/23/20 08:00 Mechanical Ventilator Mechanical Ventilator 09/23/20 08:00 80 09/23/20 08:00 99.6 117 30 122/70 (87) 99 09/23/20 07:42 124 29 80 09/23/20 07:00 115 27 112/67 (82) 99 09/23/20 06:00 109 17 117/77 (90) 98 09/23/20 05:00 103 20 110/68 (82) 99 09/23/20 04:00 111 09/23/20 04:00 80 09/23/20 04:00 Mechanical Ventilator Mechanical Ventilator 09/23/20 04:00 98.4 111 29 131/70 (90) 99 09/23/20 03:30 117 31 80 09/23/20 03:00 105 25 100/64 (76) 99 09/23/20 02:00 115 26 116/75 (89) 99 09/23/20 01:00 118 28 122/66 (84) 99 09/23/20 00:00 99.4 114 29 112/67 (82) 99 09/23/20 00:00 80 09/23/20 00:00 Mechanical Ventilator Mechanical Ventilator 09/23/20 00:00 114 09/22/20 23:30 121 25 80 09/22/20 23:00 114 17 99/64 (76) 99 09/22/20 22:00 116 31 119/73 (88) 100 09/22/20 21:00 109 30 125/71 (89) 99 09/22/20 20:00 108 09/22/20 20:00 80 09/22/20 20:00 97.4 109 28 127/78 (94) 99 09/22/20 20:00 Mechanical Ventilator Mechanical Ventilator 09/22/20 19:34 108 28 80 09/22/20 19:00 109 30 122/74 (90) 99 09/22/20 18:00 109 30 112/75 (87) 99 09/22/20 17:00 103 28 113/77 (89) 99 09/22/20 16:00 103 09/22/20 16:00 Mechanical Ventilator Mechanical Ventilator 09/22/20 16:00 60 09/22/20 16:00 102 19 117/65 (82) 99 09/22/20 15:23 102 25 80 09/22/20 15:00 108 31 129/73 (91) 98 09/22/20 14:00 105 31 131/76 (94) 98 09/22/20 13:00 97 22 102/60 (74) 99 Height (Feet): 5 Height (Inches): 7.00 Weight (Pounds): 121 HEENT: other - orally intubated Respiratory/Chest: lungs clear, other - on ventilator, FIO2=55% Cardiovascular: tachycardia Abdomen: soft, non tender, other - NG tube feeding Extremities: other - edema Neurologic/Psychiatric: unresponsiveness Laboratory Tests Test 09/23/20 09:15 White Blood Count 20.7 K/UL (4.8-10.8) H Red Blood Count 3.28 M/UL (4.70-6.10) L Hemoglobin 9.4 G/DL (14.2-18.0) L Hematocrit 27.6 % (42.0-52.0) L Mean Corpuscular Volume 84 FL (80-99) Mean Corpuscular Hemoglobin 28.5 PG (27.0-31.0) Mean Corpuscular Hemoglobin Concent 34.0 G/DL (32.0-36.0) Red Cell Distribution Width 15.7 % (11.6-14.8) H Platelet Count 226 K/UL (150-450) Mean Platelet Volume 7.3 FL (6.5-10.1) Neutrophils (%) (Auto) % (45.0-75.0) Lymphocytes (%) (Auto) % (20.0-45.0) Monocytes (%) (Auto) % (1.0-10.0) Eosinophils (%) (Auto) % (0.0-3.0) Basophils (%) (Auto) % (0.0-2.0) Differential Total Cells Counted 100 Neutrophils % (Manual) 82 % (45-75) H Lymphocytes % (Manual) 4 % (20-45) L Monocytes % (Manual) 10 % (1-10) Eosinophils % (Manual) 1 % (0-3) Basophils % (Manual) 0 % (0-2) Band Neutrophils 3 % (0-8) Platelet Estimate Adequate Platelet Morphology Normal Hypochromasia 1+ Anisocytosis 1+ Sodium Level 149 MMOL/L (136-145) H Potassium Level 4.2 MMOL/L (3.5-5.1) Chloride Level 113 MMOL/L (98-107) H Carbon Dioxide Level 33 MMOL/L (21-32) H Anion Gap 4 mmol/L (5-15) L Blood Urea Nitrogen 53 mg/dL (7-18) H Creatinine 1.1 MG/DL (0.55-1.30) Estimat Glomerular Filtration Rate > 60 mL/min (>60) Glucose Level 155 MG/DL (74-106) H Calcium Level 7.9 MG/DL (8.5-10.1) L Vancomycin Level Trough 20.9 ug/mL (5.0-12.0) H Current Medications Medications (Trade) Dose Ordered Sig/Aleksander Route PRN Reason Start Time Stop Time Status Last Admin Dose Admin Acetaminophen (Tylenol) 650 mg Q4H PRN NG Temp >100.5 09/10/20 23:15 10/10/20 23:14 09/21/20 19:20 Al Hydroxide/Mg Hydroxide (Mylanta) 30 ml Q4H PRN NG Constipation 09/11/20 00:15 10/10/20 23:14 Ascorbic Acid (Vitamin C) 250 mg DAILY ORAL 09/18/20 09:00 10/18/20 08:59 09/23/20 08:56 Diphenoxylate HCl/ Atropine (Lomotil) 2.5 mg Q4H PRN ORAL Diarrhea 09/20/20 08:15 10/20/20 08:14 Finasteride (Proscar) 5 mg DAILY ORAL 09/13/20 09:00 2/24/21 08:59 09/23/20 08:56 Lorazepam (Ativan 2mg/ml 1ml) 1 mg Q3H PRN IV For Anxiety/Agitation 09/21/20 12:30 09/28/20 12:29 09/21/20 17:53 Multivitamins (Multivitamins) 1 tab DAILY ORAL 09/18/20 09:00 10/18/20 08:59 09/23/20 08:56 Ondansetron HCl (Zofran) 4 mg Q6H PRN IVP Nausea & Vomiting 09/10/20 23:15 10/10/20 23:14 Pantoprazole (Protonix) 40 mg DAILY IVP 09/11/20 09:00 10/11/20 08:59 09/23/20 08:56 Piperacillin Sod/ Tazobactam Sod 4.5 gm/Sodium Chloride 110 ml @ 27.5 mls/hr EVERY 8 HOURS IVPB 09/21/20 14:00 09/26/20 13:59 09/23/20 05:59 Tamsulosin HCl (Flomax) 0.4 mg BEDTIME ORAL 09/12/20 21:00 10/12/20 20:59 09/22/20 20:19 Valproic Acid (Depakene) 1,000 mg BEDTIME NG 09/16/20 21:00 10/31/20 20:59 09/22/20 20:19 Vancomycin HCl (Vanco pharmacy to dose) 1 ea DAILY PRN MISC Per rx protocol 09/16/20 08:45 10/16/20 08:44 Vancomycin HCl 750 mg/Sodium Chloride 275 ml @ 183.333 mls/hr Q12H IVPB 09/23/20 18:00 09/28/20 17:59 Zinc Sulfate (Zinc Sulfate) 220 mg DAILY ORAL 09/18/20 09:00 09/28/20 08:59 09/23/20 08:56 Bradley Gil MD Sep 23, 2020 12:41
--- NOTE | 2020-09-23 16:00 | NUR ---
NURSE NOTES: Patient con't to be very fatigued. Suctioned with copious thick sticky secretions. Patient responds to all stimuli. Patient does not appear in any acute distress, is free from grimacing. Patient is being monitored on the personnel monitor with VSS Patient is orally intubated with vent settings AC18/VT500/Fi O2 at 55% +10. Oral care was performed. Patient with NGT in R nares running Jevity 1.2 at 60cc/hr. Patient is with a Rae catheter in place that is patent and draining YL urine to gravity. Patient is with PIV sites - RFA 20G and LFA 20G TKO. Safety measures are in place with bed locked, in the lowest position, HOB elevated to >30 degrees, call light within reach with side rails up x 3. Will continue to monitor and carry out MD order.
--- NOTE | 2020-09-23 16:30 | NUR ---
NURSE NOTES: Per Dr Gutierrez, if patient can be weaned on PEEP from 10 to 7, patient can have tracheostomy.
--- NOTE | 2020-09-23 18:13 | Surgery Progress Note ---
Surgery Progress Note Subjective Additional Comments cont weaning vent [id number] no n/v labs noted Objective Last 24 Hour Vital Signs Date Time Temp Pulse Resp B/P (MAP) Pulse Ox O2 Delivery O2 Flow Rate FiO2 09/23/20 17:00 94 26 102/62 (75) 98 09/23/20 16:00 96 28 108/61 (77) 98 09/23/20 16:00 55 09/23/20 16:00 Mechanical Ventilator Mechanical Ventilator 09/23/20 15:47 103 31 55 09/23/20 15:00 98 27 102/63 (76) 98 09/23/20 14:00 105 28 116/68 (84) 98 09/23/20 14:00 Mechanical Ventilator Mechanical Ventilator 09/23/20 13:00 107 28 123/72 (89) 98 09/23/20 12:05 55 09/23/20 12:00 Mechanical Ventilator Mechanical Ventilator 09/23/20 12:00 55 09/23/20 12:00 99.9 105 27 128/72 (90) 98 09/23/20 11:28 109 23 65 09/23/20 11:00 112 28 102/62 (75) 99 09/23/20 10:55 65 09/23/20 10:00 116 29 128/72 (90) 99 09/23/20 09:00 106 27 98/59 (72) 99 09/23/20 08:00 Mechanical Ventilator Mechanical Ventilator 09/23/20 08:00 80 09/23/20 08:00 99.6 117 30 122/70 (87) 99 09/23/20 07:42 124 29 80 09/23/20 07:00 115 27 112/67 (82) 99 09/23/20 06:00 109 17 117/77 (90) 98 09/23/20 05:00 103 20 110/68 (82) 99 09/23/20 04:00 111 09/23/20 04:00 80 09/23/20 04:00 Mechanical Ventilator Mechanical Ventilator 09/23/20 04:00 98.4 111 29 131/70 (90) 99 09/23/20 03:30 117 31 80 09/23/20 03:00 105 25 100/64 (76) 99 09/23/20 02:00 115 26 116/75 (89) 99 09/23/20 01:00 118 28 122/66 (84) 99 09/23/20 00:00 99.4 114 29 112/67 (82) 99 09/23/20 00:00 80 09/23/20 00:00 Mechanical Ventilator Mechanical Ventilator 09/23/20 00:00 114 09/22/20 23:30 121 25 80 09/22/20 23:00 114 17 99/64 (76) 99 09/22/20 22:00 116 31 119/73 (88) 100 09/22/20 21:00 109 30 125/71 (89) 99 09/22/20 20:00 108 09/22/20 20:00 80 09/22/20 20:00 97.4 109 28 127/78 (94) 99 09/22/20 20:00 Mechanical Ventilator Mechanical Ventilator 09/22/20 19:34 108 28 80 09/22/20 19:00 109 30 122/74 (90) 99 I&O Intake and Output 09/22/20 09/23/20 18:59 06:59 Intake Total 820 ml 780 ml Output Total 395 ml 348 ml Balance 425 ml 432 ml Free Water 100 ml 60 ml Tube Feeding 720 ml 720 ml Output Urine Total 395 ml 348 ml # Bowel Movements 1 5 Dressing: saturated Cardiovascular: RSR Respiratory: decreased breath sounds Abdomen: non-tender, decreased bowel sounds Extremities: no tenderness, no cyanosis Laboratory Tests Test 09/23/20 09:15 White Blood Count 20.7 K/UL (4.8-10.8) H Red Blood Count 3.28 M/UL (4.70-6.10) L Hemoglobin 9.4 G/DL (14.2-18.0) L Hematocrit 27.6 % (42.0-52.0) L Mean Corpuscular Volume 84 FL (80-99) Mean Corpuscular Hemoglobin 28.5 PG (27.0-31.0) Mean Corpuscular Hemoglobin Concent 34.0 G/DL (32.0-36.0) Red Cell Distribution Width 15.7 % (11.6-14.8) H Platelet Count 226 K/UL (150-450) Mean Platelet Volume 7.3 FL (6.5-10.1) Neutrophils (%) (Auto) % (45.0-75.0) Lymphocytes (%) (Auto) % (20.0-45.0) Monocytes (%) (Auto) % (1.0-10.0) Eosinophils (%) (Auto) % (0.0-3.0) Basophils (%) (Auto) % (0.0-2.0) Differential Total Cells Counted 100 Neutrophils % (Manual) 82 % (45-75) H Lymphocytes % (Manual) 4 % (20-45) L Monocytes % (Manual) 10 % (1-10) Eosinophils % (Manual) 1 % (0-3) Basophils % (Manual) 0 % (0-2) Band Neutrophils 3 % (0-8) Platelet Estimate Adequate Platelet Morphology Normal Hypochromasia 1+ Anisocytosis 1+ Sodium Level 149 MMOL/L (136-145) H Potassium Level 4.2 MMOL/L (3.5-5.1) Chloride Level 113 MMOL/L (98-107) H Carbon Dioxide Level 33 MMOL/L (21-32) H Anion Gap 4 mmol/L (5-15) L Blood Urea Nitrogen 53 mg/dL (7-18) H Creatinine 1.1 MG/DL (0.55-1.30) Estimat Glomerular Filtration Rate > 60 mL/min (>60) Glucose Level 155 MG/DL (74-106) H Calcium Level 7.9 MG/DL (8.5-10.1) L Vancomycin Level Trough 20.9 ug/mL (5.0-12.0) H Plan Problems: (1) Fever Assessment & Plan: maybe developing pneumonia cont abx pulm input thank you (2) Decubitus skin ulcer Assessment & Plan: Patient identified on admission to have multiple scabs on the left arm. mild open scabs with eschar. no drainage. no significant cellulitis. bruising no bilateral extremities noted. no signs of abuse. likely from agitation Sacral coccygeal noted to have a DTI 4.3X2.5CM. which is dark purple . RECOMMEND-CLEAN WITH SALINE, PAT DRY AND APPLY CALAZINE. COVER WITH OPTIFOAM DRESSING. REPLACE EVERY 3 DAYS OR NEEDED LEFT ISCHIUM- STAGE I PRESSURE ULCER MEASURES 4.5X1.7CM. NON-BLANCHABLE ERYTHEMA. RECOMMEND- APPLY CALAZINE AND COVER WITH OPTIFOAM DRESSING. REPLACE EVERY 7 DAYS. Turn q2h off load pressure with pillow off load heels nutritional optimization [employer] eval will follow with recs thank you (3) Malnutrition Assessment & Plan: Mr. Roman is a 70 year old male BIBA to ED of [facility] [place] 09/10/2020 around 14:00 due to fever. He was found to be hypotensive 91/55 (67), Temp: 100.0, leukocytosis 20.8k and subsequently transferred to ICU for septic shock. The blood culture is reportedly positive for gram positive cocci. NG tube was placed, KUB confirmed the placement to day. Pt is clinically stable with leukocytosis 20.1, improved BUN and creatine, stable hemodynamic without vasopressor. Findings: Mr. Roman is disoriented. He does ot follow commands at this time. Oral cavity is noted to be dried blood concretion likely from NG trauma. No active bleeding site is seen. Due to his level f alertness, already NG tube is in placed, PO trial was not done at this time. Transferred out ICU last night. He is non on tele. Issues: multiple wounds, s.p balaji/nasal/pharyngeal bleeding with blood culture Gram positive cocci leukocytosis trending down from 20k-20k-16k BUN/Creatine trending down from 93/1.9-79/1.3-54/1.1 Temp: 98.1~98.7, Pulse: 62~72, BP: 105/67~120/48, SPO2 98~100% on 2 liter S: Oral cavity is better condition comparison to yesterday. The mucosa is severely erythema without active bleeding. Limited level of alertness for direct therapy. NG in placed O: 1. Laryngeal palpation to trigger spontaneous cough and swallow: Pt triggered cough with laryngeal palpation. Approximately 5~10 seconds after coughing, he triggered swallow. based on this observation, he presents with copious secretion in pharynx and larynx. He continued to have poor secretion management at laryngeal level at this time. NO PO trial was given due to poor secretion at the level of air way with low level of alertness. A: 1. Probable aspiration of his own secretion with poor ability to cough and swallow 2. Dysphagia P: 1. NPO for now 2. Observe his secretion, and level of alertness for PO readiness. DAILY ESTIMATED NEEDS: Needs based on Wound, underweight/ 55kg 30-35 kcals/kg 8006-8808 total kcals 1.25-2 g protein/kg 69-110 g total protein 25-30 mL/kg 8858-8181 total fluid mLs NUTRITION DIAGNOSIS: Increased kcal/prot needs R/T wound healing and underweight status as evidenced by pt admitted w/ wounds including DTI 2 coccyx and stage 1 @ lt ischium, pt @ 73% IBW w/ low BMI per guidelines, s/p NGT insertion, on NGT feeds. CURRENT TF:Jevity 1.2 @ 50ml/hr x 24 hrs ENTERAL NUTRITION RECOMMENDATIONS: Jevity 1.2 @ 60ml/hr x 24 hrs to provide 1440ml, 1728kcal, 80g prot, 1160ml free water * As medically appropriate, increase goal rate to 60ml/hr x 24 hrs to meet 100% est kcal/prot needs * HOB over 30 degrees/ without IVF, H2O flush of 100ml q 8hrs ADDITIONAL RECOMMENDATIONS: * Calibrated daily bedscale wt Per SNF: HT=70" * Wound healing: TF rec @ goal will provide 100% RDI add Vit C 250mg QD, ZnSO4 220mg QD x 10days, Davidson BID via NGT * Monitor BGs, need for NISS w/ TF * Monitor lytes, replete as needed- high risk for refeeding syndrome -> check f/up phos and mag (4) Severe sepsis Assessment & Plan: will likely need trach and peg. patient needs protected airway and nutrition full code no family and unable to consent medically necessary. will plan soon (5) Open upper arm wound (6) Hematuria Assessment & Plan: as per urology Aubrey Gutierrez Sep 23, 2020 18:13
[2020-09-23] MEDS: Vancomycin 750mg/NS 275ml IVPB SCH ×2 (18:43)
--- NOTE | 2020-09-23 21:00 | NUR ---
NURSE NOTES: received patient from juanito vivar. patient resting in bed with no acute distress. vitals stable to baseline. opens eyes spontaneously; ao0. ett 7.5 23 cm at the lip. ac 18 tv 500 peep 10 fio2 55%. right nare ngt flushed and patent; feeding running as prescribed; hob > 30 degrees. andrade intact and patent; draining well to gravity. iv noted left fa 20 g and right fa 20 g; flushed and patent.
--- NOTE | 2020-09-23 21:07 | NUR ---
HAND-OFF: Report given to ARTEMIO Chapa. VSS and patient not in any acute distress.
[2020-09-23] MEDS: Tamsulosin 0.4mg cap ORAL SCH (21:27)
[2020-09-23] MEDS: Valproic Acid 250mg/5ml Liquid NG SCH (21:27)
[2020-09-24] VITALS (24 sets, daily range): BP systolic 106–133; BP diastolic 64–83
--- NOTE | 2020-09-24 | NUR ---
NURSE NOTES: repositioned patient for comfort. patient tolerating vent settings.
--- NOTE | 2020-09-24 01:11 | Cardiology Progress Note ---
Subjective DATE OF SERVICE: Sep 22, 2020 Condition remains critical; prognosis guarded. Remains intubated and on mechanical ventilation. Diarrhea noted; CDiff negative. BP tenuous and low frequently. Monitor: sinus tachycardia. ABG: (09/22/20) 7.37/48/206 Objective Last 24 Hour Vital Signs 95/50 103 34 Afebrile ROS: no change from my evaluation of 09/10/20. HEENT: Orally intubated, Mechanically Ventilated, Thin secretions ET Tube RHYTHM: NSR, ST LUNGS: bilat. rhonchi and rales CARDIAC: normal rate, regular rhythm, normal S1 and S2 ABDOMEN: normal bowel sounds, soft, other - sacral decub EXTREMITIES: No edema Assessment/Plan Assessment/Plan Respiratory failure with hypoxia Sepsis Leukocytosis Probable new aspiration PNA Recurring shock Diarrhea Dehydration/hypernatremia corrected. Likely congestion due to aspiration Acute myocardial ischemia Acute renal failure HC assoc PNA UTI CVA/dementia Sinus bradycardia in past; now with sinus tachycardia. Acute diastolic CHF Remains CRITICAL & GUARDED Vent support; may need trach ultimately Volume support; may need pressors Antimicrobials per ID. Replace lytes as needed. DVT prophyl Cardiac monitoring Madi Rios MD Sep 24, 2020 01:11
--- NOTE | 2020-09-24 01:12 | Cardiology Progress Note ---
Subjective DATE OF SERVICE: Sep 23, 2020 Condition remains critical; prognosis guarded. Remains intubated and on mechanical ventilation. Diarrhea noted; CDiff negative. BP tenuous and low frequently. Monitor: sinus tachycardia. ABG: (09/22/20) 7.37/48/206 Objective Last 24 Hour Vital Signs Date Time Temp Pulse Resp B/P (MAP) Pulse Ox O2 Delivery O2 Flow Rate FiO2 09/24/20 00:00 98.9 80 20 117/66 (83) 97 09/24/20 00:00 55 09/24/20 00:00 Mechanical Ventilator Mechanical Ventilator 09/23/20 23:30 86 30 55 09/23/20 23:00 85 29 109/73 (85) 98 09/23/20 22:00 82 25 103/64 (77) 98 09/23/20 21:00 88 30 112/74 (87) 98 09/23/20 20:00 99.0 86 29 116/67 (83) 98 09/23/20 20:00 55 09/23/20 20:00 Mechanical Ventilator Mechanical Ventilator 09/23/20 19:14 92 24 55 09/23/20 19:00 92 22 115/64 (81) 96 09/23/20 18:00 93 26 111/70 (84) 98 09/23/20 17:00 94 26 102/62 (75) 98 09/23/20 16:00 96 09/23/20 16:00 96 28 108/61 (77) 98 09/23/20 16:00 55 09/23/20 16:00 Mechanical Ventilator Mechanical Ventilator 09/23/20 15:47 103 31 55 09/23/20 15:00 98 27 102/63 (76) 98 09/23/20 14:00 105 28 116/68 (84) 98 09/23/20 14:00 Mechanical Ventilator Mechanical Ventilator 09/23/20 13:00 107 28 123/72 (89) 98 09/23/20 12:05 55 09/23/20 12:00 Mechanical Ventilator Mechanical Ventilator 09/23/20 12:00 55 09/23/20 12:00 99.9 105 27 128/72 (90) 98 09/23/20 12:00 118 09/23/20 11:28 109 23 65 09/23/20 11:00 112 28 102/62 (75) 99 09/23/20 10:55 65 09/23/20 10:00 116 29 128/72 (90) 99 09/23/20 09:00 106 27 98/59 (72) 99 09/23/20 08:00 Mechanical Ventilator Mechanical Ventilator 09/23/20 08:00 80 09/23/20 08:00 118 09/23/20 08:00 99.6 117 30 122/70 (87) 99 09/23/20 07:42 124 29 80 09/23/20 07:00 115 27 112/67 (82) 99 09/23/20 06:00 109 17 117/77 (90) 98 09/23/20 05:00 103 20 110/68 (82) 99 09/23/20 04:00 111 09/23/20 04:00 80 09/23/20 04:00 Mechanical Ventilator Mechanical Ventilator 09/23/20 04:00 98.4 111 29 131/70 (90) 99 09/23/20 03:30 117 31 80 09/23/20 03:00 105 25 100/64 (76) 99 09/23/20 02:00 115 26 116/75 (89) 99 ROS: no change from my evaluation of 09/10/20. HEENT: Orally intubated, Mechanically Ventilated, Thin secretions ET Tube RHYTHM: NSR, ST LUNGS: bilat. rhonchi and rales CARDIAC: normal rate, regular rhythm, normal S1 and S2 ABDOMEN: normal bowel sounds, soft, other - sacral decub EXTREMITIES: No edema Laboratory Tests Test 09/23/20 09:15 White Blood Count 20.7 K/UL (4.8-10.8) H Red Blood Count 3.28 M/UL (4.70-6.10) L Hemoglobin 9.4 G/DL (14.2-18.0) L Hematocrit 27.6 % (42.0-52.0) L Mean Corpuscular Volume 84 FL (80-99) Mean Corpuscular Hemoglobin 28.5 PG (27.0-31.0) Mean Corpuscular Hemoglobin Concent 34.0 G/DL (32.0-36.0) Red Cell Distribution Width 15.7 % (11.6-14.8) H Platelet Count 226 K/UL (150-450) Mean Platelet Volume 7.3 FL (6.5-10.1) Neutrophils (%) (Auto) % (45.0-75.0) Lymphocytes (%) (Auto) % (20.0-45.0) Monocytes (%) (Auto) % (1.0-10.0) Eosinophils (%) (Auto) % (0.0-3.0) Basophils (%) (Auto) % (0.0-2.0) Differential Total Cells Counted 100 Neutrophils % (Manual) 82 % (45-75) H Lymphocytes % (Manual) 4 % (20-45) L Monocytes % (Manual) 10 % (1-10) Eosinophils % (Manual) 1 % (0-3) Basophils % (Manual) 0 % (0-2) Band Neutrophils 3 % (0-8) Platelet Estimate Adequate Platelet Morphology Normal Hypochromasia 1+ Anisocytosis 1+ Sodium Level 149 MMOL/L (136-145) H Potassium Level 4.2 MMOL/L (3.5-5.1) Chloride Level 113 MMOL/L (98-107) H Carbon Dioxide Level 33 MMOL/L (21-32) H Anion Gap 4 mmol/L (5-15) L Blood Urea Nitrogen 53 mg/dL (7-18) H Creatinine 1.1 MG/DL (0.55-1.30) Estimat Glomerular Filtration Rate > 60 mL/min (>60) Glucose Level 155 MG/DL (74-106) H Calcium Level 7.9 MG/DL (8.5-10.1) L Vancomycin Level Trough 20.9 ug/mL (5.0-12.0) H Assessment/Plan Assessment/Plan Respiratory failure with hypoxia Sepsis Leukocytosis Probable new aspiration PNA Recurring shock Diarrhea Dehydration/hypernatremia corrected. Likely congestion due to aspiration Acute myocardial ischemia Acute renal failure HC assoc PNA UTI CVA/dementia Sinus bradycardia in past; now with sinus tachycardia. Acute diastolic CHF Remains CRITICAL & GUARDED Vent support; may need trach ultimately Volume support; may need pressors Antimicrobials per ID. Replace lytes as needed. DVT prophyl Cardiac monitoring Madi Rios MD Sep 24, 2020 01:12
--- NOTE | 2020-09-24 04:00 | NUR ---
NURSE NOTES: complete bath provided. pt presents with soft brown bm. am labs drawn; sent down to lab.
[2020-09-24] MEDS: Vancomycin 750mg/NS 275ml IVPB SCH ×4 (04:54→17:49)
[2020-09-24] MEDS: Piperacillin/Tazobactam 4.5 GM in NS 110 ML IVPB SCH ×3 (04:54→21:01)
--- NOTE | 2020-09-24 06:56 | General Progress Note ---
Subjective ROS Limited/Unobtainable: No Constitutional: Reports: malaise, weakness HEENT: Reports: no symptoms Cardiovascular: Reports: no symptoms Respiratory: Reports: shortness of breath, sputum Gastrointestinal/Abdominal: Reports: difficulty swallowing Genitourinary: Reports: no symptoms Neurologic/Psychiatric: Reports: pre-existing deficit Endocrine: Reports: no symptoms Hematologic/Lymphatic: Reports: anemia Allergies: Coded Allergies: No Known Allergies (Unverified , 09/10/20) All Systems: reviewed and negative except above Subjective no events. stable on the vent. decreased o2 requirements. now on 55%. peep still 10. +congestion with oral secretions. no fevers. poorly responsive and confused. Objective Last 24 Hour Vital Signs Date Time Temp Pulse Resp B/P (MAP) Pulse Ox O2 Delivery O2 Flow Rate FiO2 09/24/20 06:00 100 23 111/67 (82) 98 09/24/20 05:00 104 18 119/69 (86) 97 09/24/20 04:00 99.1 104 22 121/71 (88) 95 09/24/20 04:00 103 09/24/20 04:00 Mechanical Ventilator Mechanical Ventilator 09/24/20 03:35 104 21 55 09/24/20 03:00 103 27 120/72 (88) 97 09/24/20 02:00 102 30 133/82 (99) 97 09/24/20 01:00 99 30 127/76 (93) 98 09/24/20 00:00 78 09/24/20 00:00 98.9 80 20 117/66 (83) 97 09/24/20 00:00 55 09/24/20 00:00 Mechanical Ventilator Mechanical Ventilator 09/23/20 23:30 86 30 55 09/23/20 23:00 85 29 109/73 (85) 98 09/23/20 22:00 82 25 103/64 (77) 98 09/23/20 21:00 88 30 112/74 (87) 98 09/23/20 20:00 99.0 86 29 116/67 (83) 98 09/23/20 20:00 55 09/23/20 20:00 89 09/23/20 20:00 Mechanical Ventilator Mechanical Ventilator 09/23/20 19:14 92 24 55 09/23/20 19:00 92 22 115/64 (81) 96 09/23/20 18:00 93 26 111/70 (84) 98 09/23/20 17:00 94 26 102/62 (75) 98 09/23/20 16:00 96 09/23/20 16:00 96 28 108/61 (77) 98 09/23/20 16:00 55 09/23/20 16:00 Mechanical Ventilator Mechanical Ventilator 09/23/20 15:47 103 31 55 09/23/20 15:00 98 27 102/63 (76) 98 09/23/20 14:00 105 28 116/68 (84) 98 09/23/20 14:00 Mechanical Ventilator Mechanical Ventilator 09/23/20 13:00 107 28 123/72 (89) 98 09/23/20 12:05 55 09/23/20 12:00 Mechanical Ventilator Mechanical Ventilator 09/23/20 12:00 55 09/23/20 12:00 99.9 105 27 128/72 (90) 98 09/23/20 12:00 118 09/23/20 11:28 109 23 65 09/23/20 11:00 112 28 102/62 (75) 99 09/23/20 10:55 65 09/23/20 10:00 116 29 128/72 (90) 99 09/23/20 09:00 106 27 98/59 (72) 99 09/23/20 08:00 Mechanical Ventilator Mechanical Ventilator 09/23/20 08:00 80 09/23/20 08:00 118 09/23/20 08:00 99.6 117 30 122/70 (87) 99 09/23/20 07:42 124 29 80 09/23/20 07:00 115 27 112/67 (82) 99 Intake and Output 09/23/20 09/24/20 19:00 07:00 Intake Total 1091.0 ml 1345.533 ml Output Total 395 ml 340 ml Balance 696.0 ml 1005.533 ml Free Water 100 ml 120 ml IV Total 271.0 ml 565.533 ml Tube Feeding 720 ml 660 ml Output Urine Total 395 ml 340 ml # Bowel Movements 1 Laboratory Tests 09/23/20 09:15: White Blood Count 20.7H, Red Blood Count 3.28L, Hemoglobin 9.4L, Hematocrit 27.6L, Mean Corpuscular Volume 84, Mean Corpuscular Hemoglobin 28.5, Mean Corpuscular Hemoglobin Concent 34.0, Red Cell Distribution Width 15.7H, Platelet Count 226, Mean Platelet Volume 7.3, Neutrophils (%) (Auto) , Lymphocytes (%) (Auto) , Monocytes (%) (Auto) , Eosinophils (%) (Auto) , Basophils (%) (Auto) , Differential Total Cells Counted 100, Neutrophils % (Manual) 82H, Lymphocytes % (Manual) 4L, Monocytes % (Manual) 10, Eosinophils % (Manual) 1, Basophils % (Ma nual) 0, Band Neutrophils 3, Platelet Estimate Adequate, Platelet Morphology Normal, Hypochromasia 1+, Anisocytosis 1+, Sodium Level 149H, Potassium Level 4.2, Chloride Level 113H, Carbon Dioxide Level 33H, Anion Gap 4L, Blood Urea Nitrogen 53H, Creatinine 1.1, Estimat Glomerular Filtration Rate > 60, Glucose Level 155H, Calcium Level 7.9L, Vancomycin Level Trough 20.9H 09/24/20 04:00: White Blood Count [Pending], Red Blood Count [Pending], Hemoglobin [Pending], Hematocrit [Pending], Mean Corpuscular Volume [Pending], Mean Corpuscular Hemoglobin [Pending], Mean Corpuscular Hemoglobin Concent [Pending], Red Cell Distribution Width [Pending], Platelet Count [Pending], Mean Platelet Volume [Pending], Neutrophils (%) (Auto) [Pending], Lymphocytes (%) (Auto) [Pending], Monocytes (%) (Auto) [Pending], Eosinophils (%) (Auto) [Pending], Basophils (%) (Auto) [Pending], Sodium Level [Pending], Potassium Level [Pending], Chloride Level [Pending], Carbon Dioxide Level [Pending], Blood Urea Nitrogen [Pending], Creatinine [Pending], Estimat Glomerular Filtration Rate [Pending], Glucose Level [Pending], Calcium Level [Pending], Total Bilirubin [Pending], Aspartate Amino Transf (AST/SGOT) [Pending], Alanine Aminotransferase (ALT/SGPT) [ Pending], Alkaline Phosphatase [Pending], Total Protein [Pending], Albumin [Pending], Globulin [Pending] Height (Feet): 5 Height (Inches): 7.00 Weight (Pounds): 121 Objective General Appearance: WD/WN, confused. orally intubated EENT: normal ENT inspection Neck: normal alignment, supple Cardiovascular: normal rate, regular rhythm Respiratory/Chest: rhonchi - bilaterally. 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 grossly normal, responsive, disoriented Lymphatic: normal anterior cervical (L), normal anterior cervical (R), normal posterior cervical (L), normal posterior cervical (R) Assessment/Plan Problem List: (1) PNA (pneumonia) ICD Codes: J18.9 - Pneumonia, unspecified organism SNOMED: 355344926 (2) UTI (urinary tract infection) ICD Codes: N39.0 - Urinary tract infection, site not specified SNOMED: 28537336 (3) Fever ICD Codes: R50.9 - Fever, unspecified SNOMED: 898010465 Qualifiers: Qualified Codes: R50.9 - Fever, unspecified (4) Decubitus skin ulcer ICD Codes: L89.90 - Pressure ulcer of unspecified site, unspecified stage SNOMED: 309259903 (5) Malnutrition ICD Codes: E46 - Unspecified protein-calorie malnutrition SNOMED: 10965252 (6) Severe sepsis ICD Codes: A41.9 - Sepsis, unspecified organism; R65.20 - Severe sepsis without septic shock SNOMED: 81706086 (7) Hematuria ICD Codes: R31.9 - Hematuria, unspecified SNOMED: 22089565 Status: stable Assessment/Plan: cont iv abx resp rx and suctioning wean vent as able monitor cxr tube feeds monitor residuals hypotonic ivf added await am labs- pending skin care turn q2 critical and guarded poor prognosis Jason Layne MD Sep 24, 2020 06:55
[2020-09-24 07:08] LABS: HEMATOCRIT 28.7 % (42.0-52.0); HEMOGLOBIN 9.7 G/DL (14.2-18.0); MEAN CORPUSCULAR VOLUME 86 FL (80-99); PLATELET COUNT 263 K/UL (150-450); RED BLOOD COUNT 3.34 M/UL (4.70-6.10); RED CELL DISTRIBUTION WIDTH 14.4 % (11.6-14.8)
--- NOTE | 2020-09-24 07:18 | NUR ---
HAND-OFF: Report given to Bernadine vivar. endorsed continuity of care.
[2020-09-24 07:31] LABS: ALANINE AMINOTRANSFERASE 100 U/L (12-78); ALBUMIN 1.4 G/DL (3.4-5.0); ALBUMIN/GLOBULIN RATIO 0.3 (1.0-2.7); ALKALINE PHOSPHATASE 93 U/L (46-116); ASPARTATE AMINO TRANSFERASE 146 U/L (15-37); BILIRUBIN,TOTAL 0.3 MG/DL (0.2-1.0); BLOOD UREA NITROGEN 52 mg/dL (7-18); CALCIUM 8.1 MG/DL (8.5-10.1); CHLORIDE 114 MMOL/L (98-107); POTASSIUM 4.2 MMOL/L (3.5-5.1); SODIUM 150 MMOL/L (136-145)
[2020-09-24 07:43] LABS: CARBON DIOXIDE 31 MMOL/L (21-32)
--- NOTE | 2020-09-24 07:45 | Consultation ---
DATE OF CONSULTATION: 09/21/2020 GASTROENTEROLOGY CONSULTATION CONSULTING PHYSICIAN: Deborah Cabrera MD. CHIEF COMPLAINT: I was asked to see this patient by Dr. Patel Villasenor for evaluation of possible gastrostomy tube placement. HISTORY OF PRESENT ILLNESS: The patient is a debilitated 70-year-old white man, who has dementia, from a long term and who was eventually admitted for shock and sepsis. We have seen him this morning in the step-down unit and subsequently he had respiratory failure and was transferred to ICU where he was intubated. The patient himself was unable to provide any history due to dementia. At the time of the visit, he was on 100% face mask and nonresponsive. The patient was felt to have poor airway control and at the time of this evaluation, request both for gastrostomy tube and a tracheostomy tube has been made. Surgical consultation has been reviewed and the plan for tracheostomy was noted. PAST MEDICAL HISTORY: History of congestive heart failure, psychiatric history, underlying dementia, respiratory failure, malnutrition with declining albumin. FAMILY HISTORY: Unavailable and noncontributory. SOCIAL HISTORY: Resides at a long term. Otherwise, no social history is available. REVIEW OF SYSTEMS: Unobtainable. MEDICATIONS: See the chart list for details. PHYSICAL EXAMINATION: GENERAL: Thin white man, seen in his room. HEENT: Normocephalic and atraumatic. There is temporal wasting. NECK: Supple. CHEST: Revealed bilateral rhonchi. CARDIOVASCULAR: Revealed regular rate. ABDOMEN: Soft and scaphoid. EXTREMITIES: Revealed no edema. LABORATORY DATA: Noted. ASSESSMENT: This patient has respiratory failure and poor airway control and therefore has been felt to be a good candidate for tracheostomy and gastrostomy for long-term management. There is no family available and therefore this procedure has to be done on an urgent basis. In addition, the patient has liquid stools, but he has been negative for C Difficile. This may be due to tube feeding and change of tube feeding. In addition, the patient has declining albumin level and will require more nutritional supplementation. We will increase his tube feeding rate and also we will add protein supplementation to his feeding regimen. RECOMMENDATIONS: Per above discussion and per orders written in the chart. Thank you for asking me to participate in the care of this patient. Deborah Cabrera M.D. DR: MARILYNN JOB#: [id number] CC: SYLVIA
--- NOTE | 2020-09-24 07:56 | Urology Progress Note ---
Assessment/Plan Status: stable Assessment/Plan: 1. Gross hematuria. 2. Pyuria and possible UTI. 3. Proteinuria. 4. BPH. 5. Urinary retention. 6. Probable neurogenic bladder. 7. Possible sepsis. monitor clinically maintain andrade hand irrigated and do PRN abx as ordered flomax and proscar cysto electively voiding trial at some point? Subjective Allergies: Coded Allergies: No Known Allergies (Unverified , 09/10/20) Subjective on vent Objective Last 24 Hour Vital Signs Date Time Temp Pulse Resp B/P (MAP) Pulse Ox O2 Delivery O2 Flow Rate FiO2 09/24/20 06:00 100 23 111/67 (82) 98 09/24/20 05:00 104 18 119/69 (86) 97 09/24/20 04:00 99.1 104 22 121/71 (88) 95 09/24/20 04:00 103 09/24/20 04:00 Mechanical Ventilator Mechanical Ventilator 09/24/20 03:35 104 21 55 09/24/20 03:00 103 27 120/72 (88) 97 09/24/20 02:00 102 30 133/82 (99) 97 09/24/20 01:00 99 30 127/76 (93) 98 09/24/20 00:00 78 09/24/20 00:00 98.9 80 20 117/66 (83) 97 09/24/20 00:00 55 09/24/20 00:00 Mechanical Ventilator Mechanical Ventilator 09/23/20 23:30 86 30 55 09/23/20 23:00 85 29 109/73 (85) 98 09/23/20 22:00 82 25 103/64 (77) 98 09/23/20 21:00 88 30 112/74 (87) 98 09/23/20 20:00 99.0 86 29 116/67 (83) 98 09/23/20 20:00 55 09/23/20 20:00 89 09/23/20 20:00 Mechanical Ventilator Mechanical Ventilator 09/23/20 19:14 92 24 55 09/23/20 19:00 92 22 115/64 (81) 96 09/23/20 18:00 93 26 111/70 (84) 98 09/23/20 17:00 94 26 102/62 (75) 98 09/23/20 16:00 96 09/23/20 16:00 96 28 108/61 (77) 98 09/23/20 16:00 55 09/23/20 16:00 Mechanical Ventilator Mechanical Ventilator 09/23/20 15:47 103 31 55 09/23/20 15:00 98 27 102/63 (76) 98 09/23/20 14:00 105 28 116/68 (84) 98 09/23/20 14:00 Mechanical Ventilator Mechanical Ventilator 09/23/20 13:00 107 28 123/72 (89) 98 09/23/20 12:05 55 09/23/20 12:00 Mechanical Ventilator Mechanical Ventilator 09/23/20 12:00 55 09/23/20 12:00 99.9 105 27 128/72 (90) 98 09/23/20 12:00 118 09/23/20 11:28 109 23 65 09/23/20 11:00 112 28 102/62 (75) 99 09/23/20 10:55 65 09/23/20 10:00 116 29 128/72 (90) 99 09/23/20 09:00 106 27 98/59 (72) 99 09/23/20 08:00 Mechanical Ventilator Mechanical Ventilator 09/23/20 08:00 80 09/23/20 08:00 118 09/23/20 08:00 99.6 117 30 122/70 (87) 99 Intake and Output 09/23/20 09/24/20 19:00 07:00 Intake Total 1091.0 ml 1345.533 ml Output Total 395 ml 340 ml Balance 696.0 ml 1005.533 ml Free Water 100 ml 120 ml IV Total 271.0 ml 565.533 ml Tube Feeding 720 ml 660 ml Output Urine Total 395 ml 340 ml # Bowel Movements 1 Microbiology Date/Time Source Procedure Growth Status 09/18/20 18:30 Stool Clostridium difficile Toxin Assay - Final Complete 09/18/20 03:50 Sputum Gram Stain - Final Complete 09/18/20 03:50 Sputum Culture - Final Staphylococcus Aureus - Mrsa Complete 09/17/20 12:58 Blood Blood Culture - Final NO GROWTH AFTER 5 DAYS Complete 09/10/20 20:05 Urine,Clean Catch Urine Culture - Final NO GROWTH AFTER 48 HOURS Complete 09/10/20 17:15 Rectum VRE Culture - Final Enterococcus Faecalis - Vre Complete Current Medications Medications (Trade) Dose Ordered Sig/Aleksander Route PRN Reason Start Time Stop Time Status Last Admin Dose Admin Acetaminophen (Tylenol) 650 mg Q4H PRN NG Temp >100.5 09/10/20 23:15 10/10/20 23:14 09/21/20 19:20 Al Hydroxide/Mg Hydroxide (Mylanta) 30 ml Q4H PRN NG Constipation 09/11/20 00:15 10/10/20 23:14 Ascorbic Acid (Vitamin C) 250 mg DAILY ORAL 09/18/20 09:00 10/18/20 08:59 09/23/20 08:56 Dextrose 1,000 ml @ 75 mls/hr [id number] IV 09/24/20 07:30 10/24/20 07:29 Diphenoxylate HCl/ Atropine (Lomotil) 2.5 mg Q4H PRN ORAL Diarrhea 09/20/20 08:15 10/20/20 08:14 Finasteride (Proscar) 5 mg DAILY ORAL 09/13/20 09:00 12/12/20 08:59 09/23/20 08:56 Lorazepam (Ativan 2mg/ml 1ml) 1 mg Q3H PRN IV For Anxiety/Agitation 09/21/20 12:30 09/28/20 12:29 09/21/20 17:53 Multivitamins (Multivitamins) 1 tab DAILY ORAL 09/18/20 09:00 10/18/20 08:59 09/23/20 08:56 Ondansetron HCl (Zofran) 4 mg Q6H PRN IVP Nausea & Vomiting 09/10/20 23:15 10/10/20 23:14 Pantoprazole (Protonix) 40 mg DAILY IVP 09/11/20 09:00 10/11/20 08:59 09/23/20 08:56 Piperacillin Sod/ Tazobactam Sod 4.5 gm/Sodium Chloride 110 ml @ 27.5 mls/hr EVERY 8 HOURS IVPB 09/21/20 14:00 09/26/20 13:59 09/24/20 04:54 Tamsulosin HCl (Flomax) 0.4 mg BEDTIME ORAL 09/12/20 21:00 10/12/20 20:59 09/23/20 21:27 Valproic Acid (Depakene) 1,000 mg BEDTIME NG 09/16/20 21:00 10/31/20 20:59 09/23/20 21:27 Vancomycin HCl (Vanco pharmacy to dose) 1 ea DAILY PRN MISC Per rx protocol 09/16/20 08:45 10/16/20 08:44 Vancomycin HCl 750 mg/Sodium Chloride 275 ml @ 183.333 mls/hr Q12H IVPB 09/23/20 18:00 09/28/20 17:59 09/24/20 04:54 Zinc Sulfate (Zinc Sulfate) 220 mg DAILY ORAL 09/18/20 09:00 09/28/20 08:59 09/23/20 08:56 Laboratory Tests 09/23/20 09:15: White Blood Count 20.7H, Red Blood Count 3.28L, Hemoglobin 9.4L, Hematocrit 27.6L, Mean Corpuscular Volume 84, Mean Corpuscular Hemoglobin 28.5, Mean Corpuscular Hemoglobin Concent 34.0, Red Cell Distribution Width 15.7H, Platelet Count 226, Mean Platelet Volume 7.3, Neutrophils (%) (Auto) , Lymphocytes (%) (Auto) , Monocytes (%) (Auto) , Eosinophils (%) (Auto) , Basophils (%) (Auto) , Differential Total Cells Counted 100, Neutrophils % (Manual) 82H, Lymphocytes % (Manual) 4L, Monocytes % (Manual) 10, Eosinophils % (Manual) 1, Basophils % (Manual) 0, Band Neutrophils 3, Platelet Estimate Adequate, Platelet Morphology Normal, Hypochromasia 1+, Anisocytosis 1+, Sodium Level 149H, Potassium Level 4.2, Chloride Level 113H, Carbon Dioxide Level 33H, Anion Gap 4L, Blood Urea Nitrogen 53H, Creatinine 1.1, Estimat Glomerular Filtration Rate > 60, Glucose Level 155H, Calcium Level 7.9L, Vancomycin Level Trough 20.9H 09/24/20 04:00: White Blood Count 19.0H, Red Blood Count 3.34L, Hemoglobin 9.7L, Hematocrit 28.7L, Mean Corpuscular Volume 86, Mean Corpuscular Hemoglobin 28.9, Mean Corpuscular Hemoglobin Concent 33.6, Red Cell Distribution Width 14.4, Platelet Count 263, Mean Platelet Volume 6.7, Neutrophils (%) (Auto) , Lymphocytes (%) (Auto) , Monocytes (%) (Auto) , Eosinophils (%) (Auto) , Basophils (%) (Auto) , Neutrophils % (Manual) [Pending], Lymphocytes % (Manual) [Pending], Platelet Estimate [Pending], Platelet Morphology [Pending], Sodium Level 150H, Potassium Level 4.2, Chloride Level 114H, Carbon Dioxide Level 31, Blood Urea Nitrogen 52H , Creatinine 1.0, Estimat Glomerular Filtration Rate > 60, Glucose Level 116H, Calcium Level 8.1L, Total Bilirubin 0.3, Aspartate Amino Transf (AST/SGOT) 146H, Alanine Aminotransferase (ALT/SGPT) 100H, Alkaline Phosphatase 93, Total Protein 6.3L, Albumin 1.4L, Globulin 4.9, Albumin/Globulin Ratio 0.3L Height (Feet): 5 Height (Inches): 7.00 Weight (Pounds): 121 Objective exam stable urine clearing Levi Brunson MD Sep 24, 2020 07:56
--- NOTE | 2020-09-24 08:15 | General Progress Note ---
Subjective ROS Limited/Unobtainable: Yes Allergies: Coded Allergies: No Known Allergies (Unverified , 09/10/20) Subjective on vent very labile still on high fio2 and PEEP ICU care reviewed all consultants noted Objective Last 24 Hour Vital Signs Date Time Temp Pulse Resp B/P (MAP) Pulse Ox O2 Delivery O2 Flow Rate FiO2 09/24/20 06:00 100 23 111/67 (82) 98 09/24/20 05:00 104 18 119/69 (86) 97 09/24/20 04:00 99.1 104 22 121/71 (88) 95 09/24/20 04:00 103 09/24/20 04:00 Mechanical Ventilator Mechanical Ventilator 09/24/20 03:35 104 21 55 09/24/20 03:00 103 27 120/72 (88) 97 09/24/20 02:00 102 30 133/82 (99) 97 09/24/20 01:00 99 30 127/76 (93) 98 09/24/20 00:00 78 09/24/20 00:00 98.9 80 20 117/66 (83) 97 09/24/20 00:00 55 09/24/20 00:00 Mechanical Ventilator Mechanical Ventilator 09/23/20 23:30 86 30 55 09/23/20 23:00 85 29 109/73 (85) 98 09/23/20 22:00 82 25 103/64 (77) 98 09/23/20 21:00 88 30 112/74 (87) 98 09/23/20 20:00 99.0 86 29 116/67 (83) 98 09/23/20 20:00 55 09/23/20 20:00 89 09/23/20 20:00 Mechanical Ventilator Mechanical Ventilator 09/23/20 19:14 92 24 55 09/23/20 19:00 92 22 115/64 (81) 96 09/23/20 18:00 93 26 111/70 (84) 98 09/23/20 17:00 94 26 102/62 (75) 98 09/23/20 16:00 96 09/23/20 16:00 96 28 108/61 (77) 98 09/23/20 16:00 55 09/23/20 16:00 Mechanical Ventilator Mechanical Ventilator 09/23/20 15:47 103 31 55 09/23/20 15:00 98 27 102/63 (76) 98 12/6/20 14:00 105 28 116/68 (84) 98 09/23/20 14:00 Mechanical Ventilator Mechanical Ventilator 09/23/20 13:00 107 28 123/72 (89) 98 09/23/20 12:05 55 09/23/20 12:00 Mechanical Ventilator Mechanical Ventilator 09/23/20 12:00 55 09/23/20 12:00 99.9 105 27 128/72 (90) 98 09/23/20 12:00 118 09/23/20 11:28 109 23 65 09/23/20 11:00 112 28 102/62 (75) 99 09/23/20 10:55 65 09/23/20 10:00 116 29 128/72 (90) 99 09/23/20 09:00 106 27 98/59 (72) 99 Intake and Output 09/23/20 09/24/20 19:00 07:00 Intake Total 1091.0 ml 1345.533 ml Output Total 395 ml 340 ml Balance 696.0 ml 1005.533 ml Free Water 100 ml 120 ml IV Total 271.0 ml 565.533 ml Tube Feeding 720 ml 660 ml Output Urine Total 395 ml 340 ml # Bowel Movements 1 Laboratory Tests 09/23/20 09:15: White Blood Count 20.7H, Red Blood Count 3.28L, Hemoglobin 9.4L, Hematocrit 27.6L, Mean Corpuscular Volume 84, Mean Corpuscular Hemoglobin 28.5, Mean Corpuscular Hemoglobin Concent 34.0, Red Cell Distribution Width 15.7H, Platelet Count 226, Mean Platelet Volume 7.3, Neutrophils (%) (Auto) , Lymphocytes (%) (Auto) , Monocytes (%) (Auto) , Eosinophils (%) (Auto) , Basophils (%) (Auto) , Differential Total Cells Counted 100, Neutrophils % (Manual) 82H, Lymphocytes % (Manual) 4L, Monocytes % (Manual) 10, Eosinophils % (Manual) 1, Basophils % (Manual) 0, Band Neutrophils 3, Platelet Estimate Adequate, Platelet Morphology Normal, Hypochromasia 1+, Anisocytosis 1+, Sodium Level 149H, Potassium Level 4.2, Chloride Level 113H, Carbon Dioxide Level 33H, Anion Gap 4L, Blood Urea Nitrogen 53H, Creatinine 1.1, Estimat Glomerular Filtration Rate > 60, Glucose Level 155H, Calcium Level 7.9L, Vancomycin Level Trough 20.9H 09/24/20 04:00: White Blood Count 19.0H, Red Blood Count 3.34L, Hemoglobin 9.7L, Hematocrit 28.7L, Mean Corpuscular Volume 86, Mean Corpuscular Hemoglobin 28.9, Mean Corpuscular Hemoglobin Concent 33.6, Red Cell Distribution Width 14.4, Platelet Count 263, Mean Platelet Volume 6.7, Neutrophils (%) (Auto) , Lymphocytes (%) (Auto) , Monocytes (%) (Auto) , Eosinophils (%) (Auto) , Basophils (%) (Auto) , Neutrophils % (Manual) [Pending], Lymphocytes % (Manual) [Pending], Platelet Estimate [Pending], Platelet Morphology [Pending], Sodium Level 150H, Potassium Level 4.2, Chloride Level 114H, Carbon Dioxide Level 31, Blood Urea Nitrogen 52H , Creatinine 1.0, Estimat Glomerular Filtration Rate > 60, Glucose Level 116H, Calcium Level 8.1L, Total Bilirubin 0.3, Aspartate Amino Transf (AST/SGOT) 146H, Alanine Aminotransferase (ALT/SGPT) 100H, Alkaline Phosphatase 93, Total Protein 6.3L, Albumin 1.4L, Globulin 4.9, Albumin/Globulin Ratio 0.3L Height (Feet): 5 Height (Inches): 7.00 Weight (Pounds): 121 Objective WDWN chronically ill ETT in place feeding tube in place reduced breath sounds bilaterally with scattered rhonchi [id number] tachy without MRG NABS nontender no CCE nonfocal poor LOC Assessment/Plan Status: stable Assessment/Plan: IMPRESSION: 1. Acute renal failure. 2. Hypernatremia. 3. Leukocytosis. 4. Possible sepsis. 5. Hypotension. 6. Dementia. 7. Acute on chronic encephalopathy. 8. bcx staph Epi 9. MRSA colonized 10. acute hypoxemic respiratory failure 11. atelectasis/collapse 12. leukocytosis PLAN taper fio2 as able taper PEEP as able ID noted; monitor wbc- still elevated follow up on antibiotics monitor renal parameters monitor oxygen needs vent support as is off load position change monitor imaging d/w consultants and nursing remains critical at present CANNOT OPTIMIZE, NEEDS TRACH/AIRWAY/GT for chronic care management discussed with consultants and CM no family found await trach/peg and placement medications/laboratory data/nursing notes/ICU care reviewed in detail note reviewed and edited care discussed with RN and RT ICU time spent >40 minutes Patel Villasenor MD Sep 24, 2020 08:15
[2020-09-24] MEDS ORDERED: NS 275ml ONE (08:32)
[2020-09-24] MEDS ORDERED: Sterile Water Irrig 1000ml IRRIG ONE (08:32)
[2020-09-24] MEDS: Ascorbic Acid 500mg tab ORAL SCH (09:08)
[2020-09-24] MEDS: Zinc Sulfate 220mg ORAL SCH (09:08)
[2020-09-24] MEDS: Acetaminophen 650mg/20.3ml NG PRN ×2 (09:09→12:22)
[2020-09-24] MEDS: Pantoprazole Inj IVP SCH (09:11)
[2020-09-24] MEDS ORDERED: Rocuronium Bromide 50mg/5ml Inj IV ONE (09:20)
[2020-09-24] MEDS ORDERED: Etomidate 40mg/20ml Inj IV ONE (09:20)
--- NOTE | 2020-09-24 10:45 | NUR ---
0920 PT,SEEN BY JUAN ESPINOZA ORDERS /PEEP TO [address] [place] [address]
--- NOTE | 2020-09-24 11:00 | NUR ---
@1150 covid rapid reswap done
--- NOTE | 2020-09-24 11:29 | Infectious Diseases Prog Note ---
Assessment/Plan Assessment/Plan antibiotics : vancomycin iv, zosyn A 1. MRSA Pneumonia COVID-19 test is negative. 2. Dementia. 3. Leukocytosis improving 4. Urinary tract infection 5. + blood cultures with coag neg staph likely contaminated 6. respiratory failure P 1. continue vancomycin iv 2. continue zosyn 3. will follow up cultures Subjective ROS Limited/Unobtainable: Yes Allergies: Coded Allergies: No Known Allergies (Unverified , 09/10/20) Objective Last 24 Hour Vital Signs Date Time Temp Pulse Resp B/P (MAP) Pulse Ox O2 Delivery O2 Flow Rate FiO2 09/24/20 10:00 102 26 125/71 (89) 97 09/24/20 09:00 92 20 114/69 (84) 98 09/24/20 08:00 Mechanical Ventilator Mechanical Ventilator 09/24/20 08:00 106 09/24/20 08:00 99.2 105 28 128/79 (95) 96 09/24/20 08:00 55 09/24/20 07:30 72 24 55 09/24/20 07:00 104 26 124/73 (90) 98 09/24/20 06:00 100 23 111/67 (82) 98 09/24/20 05:00 104 18 119/69 (86) 97 09/24/20 04:00 99.1 104 22 121/71 (88) 95 09/24/20 04:00 103 09/24/20 04:00 Mechanical Ventilator Mechanical Ventilator 09/24/20 03:35 104 21 55 09/24/20 03:00 103 27 120/72 (88) 97 09/24/20 02:00 102 30 133/82 (99) 97 09/24/20 01:00 99 30 127/76 (93) 98 09/24/20 00:00 78 09/24/20 00:00 98.9 80 20 117/66 (83) 97 09/24/20 00:00 55 09/24/20 00:00 Mechanical Ventilator Mechanical Ventilator 09/23/20 23:30 86 30 55 09/23/20 23:00 85 29 109/73 (85) 98 09/23/20 22:00 82 25 103/64 (77) 98 09/23/20 21:00 88 30 112/74 (87) 98 09/23/20 20:00 99.0 86 29 116/67 (83) 98 09/23/20 20:00 55 09/23/20 20:00 89 09/23/20 20:00 Mechanical Ventilator Mechanical Ventilator 09/23/20 19:14 92 24 55 09/23/20 19:00 92 22 115/64 (81) 96 09/23/20 18:00 93 26 111/70 (84) 98 09/23/20 17:00 94 26 102/62 (75) 98 09/23/20 16:00 96 09/23/20 16:00 96 28 108/61 (77) 98 09/23/20 16:00 55 09/23/20 16:00 Mechanical Ventilator Mechanical Ventilator 09/23/20 15:47 103 31 55 09/23/20 15:00 98 27 102/63 (76) 98 09/23/20 14:00 105 28 116/68 (84) 98 09/23/20 14:00 Mechanical Ventilator Mechanical Ventilator 09/23/20 13:00 107 28 123/72 (89) 98 09/23/20 12:05 55 09/23/20 12:00 Mechanical Ventilator Mechanical Ventilator 09/23/20 12:00 55 09/23/20 12:00 99.9 105 27 128/72 (90) 98 09/23/20 12:00 118 Height (Feet): 5 Height (Inches): 7.00 Weight (Pounds): 121 HEENT: other - intubated Respiratory/Chest: lungs clear Cardiovascular: normal rate, regular rhythm, no gallop/murmur Abdomen: soft, non tender Extremities: other - + edema Laboratory Tests Test 09/24/20 04:00 White Blood Count 19.0 K/UL (4.8-10.8) H Red Blood Count 3.34 M/UL (4.70-6.10) L Hemoglobin 9.7 G/DL (14.2-18.0) L Hematocrit 28.7 % (42.0-52.0) L Mean Corpuscular Volume 86 FL (80-99) Mean Corpuscular Hemoglobin 28.9 PG (27.0-31.0) Mean Corpuscular Hemoglobin Concent 33.6 G/DL (32.0-36.0) Red Cell Distribution Width 14.4 % (11.6-14.8) Platelet Count 263 K/UL (150-450) Mean Platelet Volume 6.7 FL (6.5-10.1) Neutrophils (%) (Auto) % (45.0-75.0) Lymphocytes (%) (Auto) % (20.0-45.0) Monocytes (%) (Auto) % (1.0-10.0) Eosinophils (%) (Auto) % (0.0-3.0) Basophils (%) (Auto) % (0.0-2.0) Differential Total Cells Counted 100 Neutrophils % (Manual) 91 % (45-75) H Lymphocytes % (Manual) 4 % (20-45) L Monocytes % (Manual) 5 % (1-10) Eosinophils % (Manual) 0 % (0-3) Basophils % (Manual) 0 % (0-2) Band Neutrophils 0 % (0-8) Platelet Estimate Adequate Platelet Morphology Normal Anisocytosis 1+ Sodium Level 150 MMOL/L (136-145) H Potassium Level 4.2 MMOL/L (3.5-5.1) Chloride Level 114 MMOL/L (98-107) H Carbon Dioxide Level 31 MMOL/L (21-32) Blood Urea Nitrogen 52 mg/dL (7-18) H Creatinine 1.0 MG/DL (0.55-1.30) Estimat Glomerular Filtration Rate > 60 mL/min (>60) Glucose Level 116 MG/DL (74-106) H Calcium Level 8.1 MG/DL (8.5-10.1) L Total Bilirubin 0.3 MG/DL (0.2-1.0) Aspartate Amino Transf (AST/SGOT) 146 U/L (15-37) H Alanine Aminotransferase (ALT/SGPT) 100 U/L (12-78) H Alkaline Phosphatase 93 U/L (46-116) Total Protein 6.3 G/DL (6.4-8.2) L Albumin 1.4 G/DL (3.4-5.0) L Globulin 4.9 g/dL Albumin/Globulin Ratio 0.3 (1.0-2.7) L Current Medications Medications (Trade) Dose Ordered Sig/Aleksander Route PRN Reason Start Time Stop Time Status Last Admin Dose Admin Acetaminophen (Tylenol) 650 mg Q4H PRN NG Temp >100.5 09/10/20 23:15 10/10/20 23:14 09/24/20 09:09 Al Hydroxide/Mg Hydroxide (Mylanta) 30 ml Q4H PRN NG Constipation 09/11/20 00:15 10/10/20 23:14 Ascorbic Acid (Vitamin C) 250 mg DAILY ORAL 09/18/20 09:00 10/18/20 08:59 09/24/20 09:08 Dextrose 1,000 ml @ 75 mls/hr [id number] IV 09/24/20 07:30 10/24/20 07:29 09/24/20 09:00 Diphenoxylate HCl/ Atropine (Lomotil) 2.5 mg Q4H PRN ORAL Diarrhea 09/20/20 08:15 10/20/20 08:14 Finasteride (Proscar) 5 mg DAILY ORAL 09/13/20 09:00 12/12/20 08:59 09/24/20 09:11 Lorazepam (Ativan 2mg/ml 1ml) 1 mg Q3H PRN IV For Anxiety/Agitation 09/21/20 12:30 09/28/20 12:29 09/21/20 17:53 Multivitamins (Multivitamins) 1 tab DAILY ORAL 09/18/20 09:00 10/18/20 08:59 09/24/20 09:11 Ondansetron HCl (Zofran) 4 mg Q6H PRN IVP Nausea & Vomiting 09/10/20 23:15 10/10/20 23:14 Pantoprazole (Protonix) 40 mg DAILY IVP 09/11/20 09:00 10/11/20 08:59 09/24/20 09:11 Piperacillin Sod/ Tazobactam Sod 4.5 gm/Sodium Chloride 110 ml @ 27.5 mls/hr EVERY 8 HOURS IVPB 09/21/20 14:00 09/26/20 13:59 09/24/20 04:54 Tamsulosin HCl (Flomax) 0.4 mg BEDTIME ORAL 09/12/20 21:00 10/12/20 20:59 09/23/20 21:27 Valproic Acid (Depakene) 1,000 mg BEDTIME NG 09/16/20 21:00 10/31/20 20:59 09/23/20 21:27 Vancomycin HCl (Vanco pharmacy to dose) 1 ea DAILY PRN MISC Per rx protocol 09/16/20 08:45 10/16/20 08:44 Vancomycin HCl 750 mg/Sodium Chloride 275 ml @ 183.333 mls/hr Q12H IVPB 09/23/20 18:00 09/28/20 17:59 09/24/20 04:54 Zinc Sulfate (Zinc Sulfate) 220 mg DAILY ORAL 09/18/20 09:00 09/28/20 08:59 09/24/20 09:08 Martha Collins MD Sep 24, 2020 11:29
--- NOTE | 2020-09-24 13:15 | NUR ---
PT,SEEN BY SARKIS ESPINOZA EGD/PEG [place] NO FAMILY LISTED S,W NOTIFEID TO LOCATE HR MANAGER WILLFOLLOW
--- NOTE | 2020-09-24 16:30 | NUR ---
PT SEEN BY JOSELINE ESPINOZA BEDSIDE REPORT GIVEN V/S CONDITION STABLE OPENS EYES WHEN CALLINGNAME WITH OBTUNDED RESPOSE
--- NOTE | 2020-09-24 17:12 | Surgery Progress Note ---
Surgery Progress Note Subjective Additional Comments weaning vent plan trach Objective Last 24 Hour Vital Signs Date Time Temp Pulse Resp B/P (MAP) Pulse Ox O2 Delivery O2 Flow Rate FiO2 09/24/20 16:00 98.6 96 19 126/81 (96) 96 09/24/20 16:00 96 09/24/20 16:00 Mechanical Ventilator Mechanical Ventilator 09/24/20 16:00 40 09/24/20 15:25 94 28 40 09/24/20 15:00 94 20 131/83 (99) 95 09/24/20 14:00 89 20 119/75 (90) 97 09/24/20 13:00 100 23 128/75 (92) 96 09/24/20 12:00 Mechanical Ventilator Mechanical Ventilator 09/24/20 12:00 96 09/24/20 12:00 40 09/24/20 12:00 99.0 93 28 119/73 (88) 97 09/24/20 11:00 97 23 126/71 (89) 98 09/24/20 10:55 100 26 40 09/24/20 10:00 102 26 125/71 (89) 97 09/24/20 10:00 40 09/24/20 09:39 99.0 09/24/20 09:00 92 20 114/69 (84) 98 09/24/20 08:00 Mechanical Ventilator Mechanical Ventilator 09/24/20 08:00 106 09/24/20 08:00 99.2 105 28 128/79 (95) 96 09/24/20 08:00 55 09/24/20 07:30 72 24 55 09/24/20 07:00 104 26 124/73 (90) 98 09/24/20 06:00 100 23 111/67 (82) 98 09/24/20 05:00 104 18 119/69 (86) 97 09/24/20 04:00 99.1 104 22 121/71 (88) 95 09/24/20 04:00 103 09/24/20 04:00 Mechanical Ventilator Mechanical Ventilator 09/24/20 03:35 104 21 55 09/24/20 03:00 103 27 120/72 (88) 97 09/24/20 02:00 102 30 133/82 (99) 97 09/24/20 01:00 99 30 127/76 (93) 98 09/24/20 00:00 78 09/24/20 00:00 98.9 80 20 117/66 (83) 97 09/24/20 00:00 55 09/24/20 00:00 Mechanical Ventilator Mechanical Ventilator 09/23/20 23:30 86 30 55 09/23/20 23:00 85 29 109/73 (85) 98 09/23/20 22:00 82 25 103/64 (77) 98 09/23/20 21:00 88 30 112/74 (87) 98 09/23/20 20:00 99.0 86 29 116/67 (83) 98 09/23/20 20:00 55 09/23/20 20:00 89 09/23/20 20:00 Mechanical Ventilator Mechanical Ventilator 09/23/20 19:14 92 24 55 09/23/20 19:00 92 22 115/64 (81) 96 09/23/20 18:00 93 26 111/70 (84) 98 I&O Intake and Output 09/23/20 09/24/20 19:00 07:00 Intake Total 1091.0 ml 1616.366 ml Output Total 395 ml 395 ml Balance 696.0 ml 1221.366 ml Free Water 100 ml 120 ml IV Total 271.0 ml 776.366 ml Tube Feeding 720 ml 720 ml Output Urine Total 395 ml 395 ml # Bowel Movements 1 Dressing: other Wound: other Cardiovascular: RSR Respiratory: decreased breath sounds Abdomen: non-tender, present bowel sounds Extremities: no edema, no tenderness, no cyanosis Laboratory Tests Test 09/24/20 04:00 White Blood Count 19.0 K/UL (4.8-10.8) H Red Blood Count 3.34 M/UL (4.70-6.10) L Hemoglobin 9.7 G/DL (14.2-18.0) L Hematocrit 28.7 % (42.0-52.0) L Mean Corpuscular Volume 86 FL (80-99) Mean Corpuscular Hemoglobin 28.9 PG (27.0-31.0) Mean Corpuscular Hemoglobin Concent 33.6 G/DL (32.0-36.0) Red Cell Distribution Width 14.4 % (11.6-14.8) Platelet Count 263 K/UL (150-450) Mean Platelet Volume 6.7 FL (6.5-10.1) Neutrophils (%) (Auto) % (45.0-75.0) Lymphocytes (%) (Auto) % (20.0-45.0) Monocytes (%) (Auto) % (1.0-10.0) Eosinophils (%) (Auto) % (0.0-3.0) Basophils (%) (Auto) % (0.0-2.0) Differential Total Cells Counted 100 Neutrophils % (Manual) 91 % (45-75) H Lymphocytes % (Manual) 4 % (20-45) L Monocytes % (Manual) 5 % (1-10) Eosinophils % (Manual) 0 % (0-3) Basophils % (Manual) 0 % (0-2) Band Neutrophils 0 % (0-8) Platelet Estimate Adequate Platelet Morphology Normal Anisocytosis 1+ Sodium Level 150 MMOL/L (136-145) H Potassium Level 4.2 MMOL/L (3.5-5.1) Chloride Level 114 MMOL/L (98-107) H Carbon Dioxide Level 31 MMOL/L (21-32) Blood Urea Nitrogen 52 mg/dL (7-18) H Creatinine 1.0 MG/DL (0.55-1.30) Estimat Glomerular Filtration Rate > 60 mL/min (>60) Glucose Level 116 MG/DL (74-106) H Calcium Level 8.1 MG/DL (8.5-10.1) L Total Bilirubin 0.3 MG/DL (0.2-1.0) Aspartate Amino Transf (AST/SGOT) 146 U/L (15-37) H Alanine Aminotransferase (ALT/SGPT) 100 U/L (12-78) H Alkaline Phosphatase 93 U/L (46-116) Total Protein 6.3 G/DL (6.4-8.2) L Albumin 1.4 G/DL (3.4-5.0) L Globulin 4.9 g/dL Albumin/Globulin Ratio 0.3 (1.0-2.7) L Plan Problems: (1) Fever Assessment & Plan: maybe developing pneumonia cont abx pulm input thank you (2) Decubitus skin ulcer Assessment & Plan: Patient identified on admission to have multiple scabs on the left arm. mild open scabs with eschar. no drainage. no significant cellulitis. bruising no bilateral extremities noted. no signs of abuse. likely from agitation Sacral coccygeal noted to have a DTI 4.3X2.5CM. which is dark purple . RECOMMEND-CLEAN WITH SALINE, PAT DRY AND APPLY CALAZINE. COVER WITH OPTIFOAM DRESSING. REPLACE EVERY 3 DAYS OR NEEDED LEFT ISCHIUM- STAGE I PRESSURE ULCER MEASURES 4.5X1.7CM. NON-BLANCHABLE ERYTHEMA. RECOMMEND- APPLY CALAZINE AND COVER WITH OPTIFOAM DRESSING. REPLACE EVERY 7 DAYS . Turn q2h off load pressure with pillow off load heels nutritional optimization MECHANIC'S ASSISTANT eval will follow with recs thank you (3) Malnutrition Assessment & Plan: Mr. Roman is a 70 year old male BIBA to ED of [facility] on 09/10/2020 around 14:00 due to fever. He was found to be hypotensive 91/55 (67), Temp: 100.0, leukocytosis 20.8k and subsequently transferred to ICU for septic shock. The blood culture is reportedly positive for gram positive cocci. NG tube was placed, KUB confirmed the placement to day. Pt is clinically stable with leukocytosis 20.1, improved BUN and creatine, stable hemodynamic without vasopressor. Findings: Mr. Roman is disoriented. He does ot follow commands at this time. Oral cavity is noted to be dried blood concretion likely from NG trauma. No active bleeding site is seen. Due to his level f alertness, already NG tube is in placed, PO trial was not done at this time. Transferred out ICU last night. He is non on tele. Issues: multiple wounds, s.p balaji/nasal/pharyngeal bleeding with blood culture Gram positive cocci leukocytosis trending down from 20k-20k-16k BUN/Creatine trending down from 93/1.9-79/1.3-54/1.1 Temp: 98.1~98.7, Pulse: 62~72, BP: 105/67~120/48, SPO2 98~100% on 2 liter S: Oral cavity is better condition comparison to yesterday. The mucosa is severely erythema without active bleeding. Limited level of alertness for direct therapy. NG in placed O: 1. Laryngeal palpation to trigger spontaneous cough and swallow: Pt triggered cough with laryngeal palpation. Approximately 5~10 seconds after coughing, he triggered swallow. based on this observation, he presents with copious secretion in pharynx and larynx. He continued to have poor secretion management at laryngeal level at this time. NO PO trial was given due to poor secretion at the level of air way with low level of alertness. A: 1. Probable aspiration of his own secretion with poor ability to cough and swallow 2. Dysphagia P: 1. NPO for now 2. Observe his secretion, and level of alertness for PO readiness. DAILY ESTIMATED NEEDS: Needs based on Wound, underweight/ 55kg 30-35 kcals/kg 3982-6505 total kcals 1.25-2 g protein/kg 69-110 g total protein 25-30 mL/kg 0712-2522 total fluid mLs NUTRITION DIAGNOSIS: Increased kcal/prot needs R/T wound healing and underweight status as evidenced by pt admitted w/ wounds including DTI 2 coccyx and stage 1 @ lt ischium, pt @ 73% IBW w/ low BMI per guidelines, s/p NGT insertion, on NGT feeds. CURRENT TF:Jevity 1.2 @ 50ml/hr x 24 hrs ENTERAL NUTRITION RECOMMENDATIONS: Jevity 1.2 @ 60ml/hr x 24 hrs to provide 1440ml, 1728kcal, 80g prot, 1160ml free water * As medically appropriate, increase goal rate to 60ml/hr x 24 hrs to meet 100% est kcal/prot needs * HOB over 30 degrees/ without IVF, H2O flush of 100ml q 8hrs ADDITIONAL RECOMMENDATIONS: * Calibrated daily bedscale wt Per SNF: HT=70" * Wound healing: TF rec @ goal will provide 100% RDI add Vit C 250mg QD, ZnSO4 220mg QD x 10days, Davidson BID via NGT * Monitor BGs, need for NISS w/ TF * Monitor lytes, replete as needed- high risk for refeeding syndrome -> check f/up phos and mag (4) Severe sepsis Assessment & Plan: will likely need trach and peg. patient needs protected airway and nutrition full code no family and unable to consent medically necessary. will plan soon (5) Open upper arm wound (6) Hematuria Assessment & Plan: as per urology Aubrey Gutierrez Sep 24, 2020 17:12
--- NOTE | 2020-09-24 17:36 | NUR ---
CASE MANAGEMENT:REVIEW SI;RESPIRATORY FAILURE 99.2 105 28 128 95% ETT/VENT AC 18 TV 500 PEEP 8 FIO2 40% WBC 19.0 H/H 9.7/28.7 NA 150 BUN 52 AST 146 ALT 100 ALB 1.4 IS;VANCOMYCIN IV Q12 ZOSYN IV Q8 DEPAKENE NG QD ZINC NG QD VIT C NG QD ICU STATUS DCP;TO [facility]
--- NOTE | 2020-09-24 18:40 | NUR ---
1830 AGITATED WITHPMCARE NOT FOLLOWING SIMPLE COMANDS V/S CONDITION UNCHANGED
--- NOTE | 2020-09-24 19:10 | NUR ---
NURSE NOTES: pt report received from arun garcia RN. pt is non verbal at the moment, opens eyes to tactile stimuli, then quickly falls back asleep. pt is showing sinus rhythm on the secured entrance monitor, no acute symptoms of cardiac distress. pt is oral tube vented, sating 99% O2, no symptoms of resp distress noted. pt bed is low, locked, armed, call light within reach, bed rails up times 3. will follow plan of care.
--- NOTE | 2020-09-24 19:27 | NUR ---
RESPIRATORY NOTE: Received pt on AC VC 18, 500VT, 40%, PEEP +8. Pt intubated w/ an ETT 7.5 @ 23cm lipline, secured by anchorfast. Pt obtunded/disoriented. B/S nguyen. diminished, sxn small to moderate amounts of thick, glover-yellow secretions. Bite block in place as pt tends to bite down ETT. Vent plugged into red outlet, ambubag at bedside. Pt in no apparent distress at this time. Will continue to monitor pt.
[2020-09-24] MEDS: Tamsulosin 0.4mg cap ORAL SCH (20:30)
[2020-09-24] MEDS: Valproic Acid 250mg/5ml Liquid NG SCH (20:31)
--- NOTE | 2020-09-24 21:14 | General Progress Note ---
Subjective Allergies: Coded Allergies: No Known Allergies (Unverified , 09/10/20) Subjective above noted d/w RN no family or next of kin to discuss PEG d/w surgery re trach timing WBC and Na both higher Objective Last 24 Hour Vital Signs Date Time Temp Pulse Resp B/P (MAP) Pulse Ox O2 Delivery O2 Flow Rate FiO2 09/24/20 20:00 Mechanical Ventilator Mechanical Ventilator 09/24/20 20:00 40 09/24/20 20:00 98.4 88 15 106/64 (78) 99 09/24/20 19:24 105 30 40 09/24/20 18:59 98 20 125/79 (94) 97 09/24/20 18:00 99 27 121/71 (88) 97 09/24/20 17:00 95 18 127/81 (96) 97 09/24/20 16:00 98.6 96 19 126/81 (96) 96 09/24/20 16:00 96 09/24/20 16:00 Mechanical Ventilator Mechanical Ventilator 09/24/20 16:00 40 09/24/20 15:25 94 28 40 09/24/20 15:00 94 20 131/83 (99) 95 09/24/20 14:00 89 20 119/75 (90) 97 09/24/20 13:00 100 23 128/75 (92) 96 09/24/20 12:00 Mechanical Ventilator Mechanical Ventilator 09/24/20 12:00 96 09/24/20 12:00 40 09/24/20 12:00 99.0 93 28 119/73 (88) 97 09/24/20 11:00 97 23 126/71 (89) 98 09/24/20 10:55 100 26 40 09/24/20 10:00 102 26 125/71 (89) 97 09/24/20 10:00 40 09/24/20 09:39 99.0 09/24/20 09:00 92 20 114/69 (84) 98 09/24/20 08:00 Mechanical Ventilator Mechanical Ventilator 09/24/20 08:00 106 09/24/20 08:00 99.2 105 28 128/79 (95) 96 09/24/20 08:00 55 09/24/20 07:30 72 24 55 09/24/20 07:00 104 26 124/73 (90) 98 09/24/20 06:00 100 23 111/67 (82) 98 09/24/20 05:00 104 18 119/69 (86) 97 09/24/20 04:00 99.1 104 22 121/71 (88) 95 09/24/20 04:00 103 09/24/20 04:00 Mechanical Ventilator Mechanical Ventilator 09/24/20 03:35 104 21 55 09/24/20 03:00 103 27 120/72 (88) 97 09/24/20 02:00 102 30 133/82 (99) 97 09/24/20 01:00 99 30 127/76 (93) 98 09/24/20 00:00 78 09/24/20 00:00 98.9 80 20 117/66 (83) 97 09/24/20 00:00 55 09/24/20 00:00 Mechanical Ventilator Mechanical Ventilator 09/23/20 23:30 86 30 55 09/23/20 23:00 85 29 109/73 (85) 98 09/23/20 22:00 82 25 103/64 (77) 98 Intake and Output 09/23/20 09/24/20 19:00 07:00 Intake Total 1091.0 ml 1616.366 ml Output Total 395 ml 395 ml Balance 696.0 ml 1221.366 ml Free Water 100 ml 120 ml IV Total 271.0 ml 776.366 ml Tube Feeding 720 ml 720 ml Output Urine Total 395 ml 395 ml # Bowel Movements 1 Laboratory Tests 09/24/20 04:00: White Blood Count 19.0H, Red Blood Count 3.34L, Hemoglobin 9.7L, Hematocrit 28.7L, Mean Corpuscular Volume 86, Mean Corpuscular Hemoglobin 28.9, Mean Corpuscular Hemoglobin Concent 33.6, Red Cell Distribution Width 14.4, Platelet Count 263, Mean Platelet Volume 6.7, Neutrophils (%) (Auto) , Lymphocytes (%) (Auto) , Monocytes (%) (Auto) , Eosinophils (%) (Auto) , Basophils (%) (Auto) , Differential Total Cells Counted 100, Neutrophils % (Manual) 91H, Lymphocytes % (Manual) 4L, Monocytes % (Manual) 5, Eosinophils % (Manual) 0, Basophils % (Manual) 0, Band Neutrophils 0, Platelet Estimate Adequate, Platelet Morphology Normal, Anisocytosis 1+, Sodium Level 150H, Potassium Level 4.2, Chloride Level 114H, Carbon Dioxide Level 31, Blood Urea Nitrogen 52H, Creatinine 1.0, Estimat Glomerular Filtration Rate > 60, Glucose Level 116H, Calcium Level 8.1L, Total Bilirubin 0.3, Aspartate Amino Transf (AST/SGOT) 146H, Alanine Aminotransferase (ALT/SGPT) 100H, Alkaline Phosphatase 93, Total Protein 6.3L, Albumin 1.4L, Globulin 4.9, Albumin/Globulin Ratio 0.3L Height (Feet): 5 Height (Inches): 7.00 Weight (Pounds): 121 Objective Thin WM on vent HEENT NCAT supple coarse ronchi RR, slightly tachy abd soft flat ND no edema Assessment/Plan Status: stable Assessment/Plan: Assessment - resp failure - NGT dependent - OBS/Dementia - sepsis - diarrhea, C Diff (-) - Azotemia, resolved - CHF - malnutrition , low albumin - leukocytosis - hypernatremia Recommendations -Vent care / support - abx - supportive care - continue TF - increase free water - abx - will arrange for PEG placement once medically stable Deborah Cabrera MD Sep 24, 2020 21:14
--- NOTE | 2020-09-24 21:40 | NUR ---
NURSE NOTES: changed pts IV tubing. pts IV tubing up to date.
--- NOTE | 2020-09-24 23:05 | NUR ---
NURSE NOTES: RT traylor in pts room preforming respiratory care.
[2020-09-25] VITALS (26 sets, daily range): BP systolic 92–141; BP diastolic 58–89
--- NOTE | 2020-09-25 01:20 | NUR ---
NURSE NOTES: pt is asleep. vital signs stable. pillows placed under pts lower legs.
--- NOTE | 2020-09-25 02:51 | Cardiology Progress Note ---
Subjective DATE OF SERVICE: Sep 24, 2020 Condition remains critical; prognosis guarded. Remains intubated and on mechanical ventilation. Diarrhea noted; CDiff negative. BP less tenuous; now mostly controlled. Monitor: sinus tachycardia. ABG: (09/22/20) 7.37/48/206 Objective Last 24 Hour Vital Signs Date Time Temp Pulse Resp B/P (MAP) Pulse Ox O2 Delivery O2 Flow Rate FiO2 09/25/20 02:00 98 29 132/80 (97) 98 09/25/20 01:00 96 26 123/79 (94) 100 09/25/20 00:00 100 09/25/20 00:00 Mechanical Ventilator Mechanical Ventilator 09/25/20 00:00 40 09/25/20 00:00 98.2 93 22 118/75 (89) 99 09/24/20 23:07 96 31 40 09/24/20 23:00 95 25 130/77 (94) 100 09/24/20 22:00 95 21 132/77 (95) 99 09/24/20 21:00 92 19 128/72 (90) 99 09/24/20 20:00 Mechanical Ventilator Mechanical Ventilator 09/24/20 20:00 40 09/24/20 20:00 96 09/24/20 20:00 98.4 88 15 106/64 (78) 99 09/24/20 19:24 105 30 40 09/24/20 18:59 98 20 125/79 (94) 97 09/24/20 18:00 99 27 121/71 (88) 97 09/24/20 17:00 95 18 127/81 (96) 97 09/24/20 16:00 98.6 96 19 126/81 (96) 96 09/24/20 16:00 96 09/24/20 16:00 Mechanical Ventilator Mechanical Ventilator 09/24/20 16:00 40 09/24/20 15:25 94 28 40 09/24/20 15:00 94 20 131/83 (99) 95 09/24/20 14:00 89 20 119/75 (90) 97 09/24/20 13:00 100 23 128/75 (92) 96 09/24/20 12:00 Mechanical Ventilator Mechanical Ventilator 09/24/20 12:00 96 09/24/20 12:00 40 09/24/20 12:00 99.0 93 28 119/73 (88) 97 09/24/20 11:00 97 23 126/71 (89) 98 09/24/20 10:55 100 26 40 09/24/20 10:00 102 26 125/71 (89) 97 09/24/20 10:00 40 09/24/20 09:39 99.0 09/24/20 09:00 92 20 114/69 (84) 98 09/24/20 08:00 Mechanical Ventilator Mechanical Ventilator 09/24/20 08:00 106 09/24/20 08:00 99.2 105 28 128/79 (95) 96 09/24/20 08:00 55 09/24/20 07:30 72 24 55 09/24/20 07:00 104 26 124/73 (90) 98 09/24/20 06:00 100 23 111/67 (82) 98 09/24/20 05:00 104 18 119/69 (86) 97 09/24/20 04:00 99.1 104 22 121/71 (88) 95 09/24/20 04:00 103 09/24/20 04:00 Mechanical Ventilator Mechanical Ventilator 09/24/20 03:35 104 21 55 09/24/20 03:00 103 27 120/72 (88) 97 ROS: no change from my evaluation of 09/10/20. HEENT: Orally intubated, Mechanically Ventilated, Thin secretions ET Tube RHYTHM: NSR, ST LUNGS: bilat. rhonchi and rales CARDIAC: normal rate, regular rhythm, normal S1 and S2 ABDOMEN: normal bowel sounds, soft, other - sacral decub EXTREMITIES: No edema Laboratory Tests Test 09/24/20 04:00 White Blood Count 19.0 K/UL (4.8-10.8) H Red Blood Count 3.34 M/UL (4.70-6.10) L Hemoglobin 9.7 G/DL (14.2-18.0) L Hematocrit 28.7 % (42.0-52.0) L Mean Corpuscular Volume 86 FL (80-99) Mean Corpuscular Hemoglobin 28.9 PG (27.0-31.0) Mean Corpuscular Hemoglobin Concent 33.6 G/DL (32.0-36.0) Red Cell Distribution Width 14.4 % (11.6-14.8) Platelet Count 263 K/UL (150-450) Mean Platelet Volume 6.7 FL (6.5-10.1) Neutrophils (%) (Auto) % (45.0-75.0) Lymphocytes (%) (Auto) % (20.0-45.0) Monocytes (%) (Auto) % (1.0-10.0) Eosinophils (%) (Auto) % (0.0-3.0) Basophils (%) (Auto) % (0.0-2.0) Differential Total Cells Counted 100 Neutrophils % (Manual) 91 % (45-75) H Lymphocytes % (Manual) 4 % (20-45) L Monocytes % (Manual) 5 % (1-10) Eosinophils % (Manual) 0 % (0-3) Basophils % (Manual) 0 % (0-2) Band Neutrophils 0 % (0-8) Platelet Estimate Adequate Platelet Morphology Normal Anisocytosis 1+ Sodium Level 150 MMOL/L (136-145) H Potassium Level 4.2 MMOL/L (3.5-5.1) Chloride Level 114 MMOL/L (98-107) H Carbon Dioxide Level 31 MMOL/L (21-32) Blood Urea Nitrogen 52 mg/dL (7-18) H Creatinine 1.0 MG/DL (0.55-1.30) Estimat Glomerular Filtration Rate > 60 mL/min (>60) Glucose Level 116 MG/DL (74-106) H Calcium Level 8.1 MG/DL (8.5-10.1) L Total Bilirubin 0.3 MG/DL (0.2-1.0) Aspartate Amino Transf (AST/SGOT) 146 U/L (15-37) H Alanine Aminotransferase (ALT/SGPT) 100 U/L (12-78) H Alkaline Phosphatase 93 U/L (46-116) Total Protein 6.3 G/DL (6.4-8.2) L Albumin 1.4 G/DL (3.4-5.0) L Globulin 4.9 g/dL Albumin/Globulin Ratio 0.3 (1.0-2.7) L Microbiology Date/Time Source Procedure Growth Status 09/24/20 10:50 Nasopharynx SARS-CoV-2 RdRp Gene Assay - Final Complete Assessment/Plan Assessment/Plan Respiratory failure with hypoxia Sepsis Leukocytosis Probable new aspiration PNA Recurring shock Diarrhea Dehydration/hypernatremia Likely congestion due to aspiration Acute myocardial ischemia Acute renal failure HC assoc PNA UTI Transaminitis, acute CVA/dementia Sinus bradycardia in past; now with sinus tachycardia. Acute diastolic CHF Remains CRITICAL & GUARDED Vent support; may need trach ultimately Volume support with hypotonic IVfluids Antimicrobials per ID. Replace lytes as needed. F/U liver fxn DVT prophyl Cardiac monitoring Madi Rios MD Sep 25, 2020 02:51
--- NOTE | 2020-09-25 03:07 | NUR ---
NURSE NOTES: RT Jyothi in pts room. respiratory care preformed. reposited pt with RT.
--- NOTE | 2020-09-25 05:30 | NUR ---
NURSE NOTES: hung pts AM Zosyn. IV lines able to flush. vital signs stable.
[2020-09-25] MEDS: Piperacillin/Tazobactam 4.5 GM in NS 110 ML IVPB SCH (05:32)
--- NOTE | 2020-09-25 05:54 | NUR ---
NURSE NOTES: Dr Layne by pt bed side.
--- NOTE | 2020-09-25 06:02 | General Progress Note ---
Subjective ROS Limited/Unobtainable: Yes Constitutional: Reports: malaise, weakness HEENT: Reports: no symptoms Cardiovascular: Reports: no symptoms Respiratory: Reports: shortness of breath, sputum Gastrointestinal/Abdominal: Reports: difficulty swallowing Genitourinary: Reports: no symptoms Neurologic/Psychiatric: Reports: pre-existing deficit Endocrine: Reports: no symptoms Hematologic/Lymphatic: Reports: anemia Allergies: Coded Allergies: No Known Allergies (Unverified , 09/10/20) All Systems: reviewed and negative except above Subjective improved o2 sats. remains orally intubated. no fevers. confused. on ngt feeds. on iv abx. Objective Last 24 Hour Vital Signs Date Time Temp Pulse Resp B/P (MAP) Pulse Ox O2 Delivery O2 Flow Rate FiO2 09/25/20 04:00 40 09/25/20 04:00 Mechanical Ventilator Mechanical Ventilator 09/25/20 04:00 98.7 96 25 133/81 (98) 98 09/25/20 03:06 96 30 40 09/25/20 03:00 95 24 123/82 (96) 98 09/25/20 02:00 98 29 132/80 (97) 98 09/25/20 01:00 96 26 123/79 (94) 100 09/25/20 00:00 100 09/25/20 00:00 Mechanical Ventilator Mechanical Ventilator 09/25/20 00:00 40 09/25/20 00:00 98.2 93 22 118/75 (89) 99 09/24/20 23:07 96 31 40 09/24/20 23:00 95 25 130/77 (94) 100 09/24/20 22:00 95 21 132/77 (95) 99 09/24/20 21:00 92 19 128/72 (90) 99 09/24/20 20:00 Mechanical Ventilator Mechanical Ventilator 09/24/20 20:00 40 09/24/20 20:00 96 09/24/20 20:00 98.4 88 15 106/64 (78) 99 09/24/20 19:24 105 30 40 09/24/20 18:59 98 20 125/79 (94) 97 09/24/20 18:00 99 27 121/71 (88) 97 09/24/20 17:00 95 18 127/81 (96) 97 09/24/20 16:00 98.6 96 19 126/81 (96) 96 09/24/20 16:00 96 09/24/20 16:00 Mechanical Ventilator Mechanical Ventilator 09/24/20 16:00 40 09/24/20 15:25 94 28 40 09/24/20 15:00 94 20 131/83 (99) 95 09/24/20 14:00 89 20 119/75 (90) 97 09/24/20 13:00 100 23 128/75 (92) 96 09/24/20 12:00 Mechanical Ventilator Mechanical Ventilator 09/24/20 12:00 96 09/24/20 12:00 40 09/24/20 12:00 99.0 93 28 119/73 (88) 97 09/24/20 11:00 97 23 126/71 (89) 98 09/24/20 10:55 100 26 40 09/24/20 10:00 102 26 125/71 (89) 97 09/24/20 10:00 40 09/24/20 09:39 99.0 09/24/20 09:00 92 20 114/69 (84) 98 09/24/20 08:00 Mechanical Ventilator Mechanical Ventilator 09/24/20 08:00 106 09/24/20 08:00 99.2 105 28 128/79 (95) 96 09/24/20 08:00 55 09/24/20 07:30 72 24 55 09/24/20 07:00 104 26 124/73 (90) 98 Intake and Output 09/24/20 09/25/20 19:00 07:00 Intake Total 1858.333 ml 972.5 ml Output Total 495 ml 300 ml Balance 1363.333 ml 672.5 ml Free Water 100 ml IV Total 1098.333 ml 672.5 ml Tube Feeding 660 ml 300 ml Output Urine Total 495 ml 300 ml # Bowel Movements 3 1 Laboratory Tests 09/25/20 05:15: Sodium Level [Pending], Potassium Level [Pending], Chloride Level [Pending], Carbon Dioxide Level [Pending], Blood Urea Nitrogen [Pending], Creatinine [Pending], Estimat Glomerular Filtration Rate [Pending], Glucose Level [Pending], Calcium Level [Pending], Total Bilirubin [Pending], Aspartate Amino Transf (AST/SGOT) [Pending], Alanine Aminotransferase (ALT/SGPT) [Pending], Alkaline Phosphatase [Pending], Total Protein [Pending], Albumin [Pending], Globulin [Pending], Vancomycin Level Trough [Pending] Height (Feet): 5 Height (Inches): 7.00 Weight (Pounds): 121 Objective General Appearance: WD/WN, confused. orally intubated EENT: normal ENT inspection Neck: normal alignment, supple Cardiovascular: normal rate, regular rhythm Respiratory/Chest: rhonchi - bilaterally. diminished BS Abdomen: normal bowel sounds, non tender, soft, no organomegaly Edema: no edema noted Leg (L), no edema noted Leg (R) Neurologic: director of state II-XII grossly normal, responsive, disoriented Lymphatic: normal anterior cervical (L), normal anterior cervical (R), normal posterior cervical (L), normal posterior cervical (R) Assessment/Plan Problem List: (1) PNA (pneumonia) ICD Codes: J18.9 - Pneumonia, unspecified organism SNOMED: 481818018 (2) UTI (urinary tract infection) ICD Codes: N39.0 - Urinary tract infection, site not specified SNOMED: 75569425 (3) Fever ICD Codes: R50.9 - Fever, unspecified SNOMED: 050536795 Qualifiers: Qualified Codes: R50.9 - Fever, unspecified (4) Decubitus skin ulcer ICD Codes: L89.90 - Pressure ulcer of unspecified site, unspecified stage SNOMED: 226711081 (5) Malnutrition ICD Codes: E46 - Unspecified protein-calorie malnutrition SNOMED: 55942475 (6) Severe sepsis ICD Codes: A41.9 - Sepsis, unspecified organism; R65.20 - Severe sepsis without septic shock SNOMED: 95646756 (7) Hematuria ICD Codes: R31.9 - Hematuria, unspecified SNOMED: 61750415 Status: stable Assessment/Plan: cont iv abx per id resp rx and suctioning wean vent as able monitor cxr tube feeds monitor residuals possible gt and trach later this week prn ivf as needed monitor labs skin care turn q2 critical and guarded poor prognosis Jason Layne MD Sep 25, 2020 06:02
[2020-09-25 06:12] LABS: ALANINE AMINOTRANSFERASE 88 U/L (12-78); ALBUMIN 1.4 G/DL (3.4-5.0); ALBUMIN/GLOBULIN RATIO 0.3 (1.0-2.7); ALKALINE PHOSPHATASE 69 U/L (46-116); ANION GAP 1 mmol/L (5-15); ASPARTATE AMINO TRANSFERASE 85 U/L (15-37); BILIRUBIN,TOTAL 0.5 MG/DL (0.2-1.0); BLOOD UREA NITROGEN 44 mg/dL (7-18); CARBON DIOXIDE 33 MMOL/L (21-32); CHLORIDE 113 MMOL/L (98-107); CREATININE 0.9 MG/DL (0.55-1.30); POTASSIUM 4.4 MMOL/L (3.5-5.1); SODIUM 147 MMOL/L (136-145)
--- NOTE | 2020-09-25 07:10 | NUR ---
RESPIRATORY NOTE: Received pt on AC VC 18, 500, 40% fio2, PEEP +8. Pt intubated w/ an ETT 7.5 @ 23cm lipline, secured by anchorfast. Pt obtunded/disoriented. B/S nguyen. diminished, sxn small to moderate amounts of thick, glover-yellow secretions. Bite block in place as pt tends to bite down ETT. Vent plugged into red outlet, ambubag at bedside. Pt in no apparent distress at this time. Will continue to monitor pt.
--- NOTE | 2020-09-25 07:33 | NUR ---
NURSE HAND-OFF REPORT: Latest Vital Signs: Temperature 98.7 , Pulse 106 , B/P 130 /78 , Respiratory Rate 19 , O2 SAT 96 , Mechanical Ventilator, O2 Flow Rate 15.0 . Vital Sign Comment: [Stable] EKG Rhythm: Sinus Rhythm Rhythm change?: N Notified?: Y -Dr Jacklyn BENITEZ Response: No New Orders Received Latest Schultz Fall Score: 70 Fall Risk: High Risk Safety Measures: Call light Within Reach, Bed Alarm Zone 1, Side Rails Side Rails x3, Bed position Low and Locked. Fall Precautions: Yellow Socks Door Sign Patient Fall Education Report given to [David Thakur RN].
--- NOTE | 2020-09-25 07:35 | NUR ---
NURSE NOTES: LATE ENTRY: RECEIVED REPORT FROM RUSLAN. ARTEMIO. PT IN BED, OBTUNDED. RESPONSIVE TO PAIN. PUPILS 3MM SLUGGISH. SR-ST. ON MONITOR. PT INTUBATED ETTUBE 7.5, 23CM AT LIP. SETTINGS AC 18, 500, 40%, PEEP 8. LUNG SOUNDS RALES. PRODUCTIVE COUGH, PEREYRA , THICK. DIET HELD PENDING SURGERY TODAY. ABDOMEN SOFT, NON TENDER. NO BM AT THIS TIME. HERNANDEZ DRAINING DARK YULISSA URINE. SKIN- SEE ASSESSMENT. RT/ LT FA 20G . D5W AT 75ML/HR. AX TEMP 100.5. NO C/O PAIN. CAP REFILL <3SEC, SKIN TURGOR LOOSE. BILATERAL RADIAL AND PEDAL PULSES STRONG. NO JVD. PITTING EDEMA OF EXTREMITIES. PT IN CONTACT ISOLATION. BED ALARM ON, BED LOCKED IN LOW POSITION. SIDE RAILS X 3. WILL CONTINUE TO MONITOR
--- NOTE | 2020-09-25 07:42 | NUR ---
NURSE NOTES: MD. GARY HERE TO ASSESS PT HERNANDEZ. LIGHT YULISSA DRAINGING. REPORTED NEW RASH/ HIVES. NO NEW ORDERS.
--- NOTE | 2020-09-25 08:00 | NUR ---
NURSE NOTES: LATE ENTRY: MD. AGUAYO HERE TO SEE PT. WILL NOT DO PEG TODAY. RECOMMENDED RESTARTING TUBE FEEDING, OK TO RESTART TUBE FEEDING.
--- NOTE | 2020-09-25 08:04 | Urology Progress Note ---
Assessment/Plan Status: stable Assessment/Plan: 1. Gross hematuria. 2. Pyuria and possible UTI. 3. Proteinuria. 4. BPH. 5. Urinary retention. 6. Probable neurogenic bladder. 7. Possible sepsis. monitor clinically maintain andrade hand irrigated and do PRN abx as ordered flomax and proscar cysto electively voiding trial at some point? Subjective Allergies: Coded Allergies: No Known Allergies (Unverified , 09/10/20) Subjective remains on vent Objective Last 24 Hour Vital Signs Date Time Temp Pulse Resp B/P (MAP) Pulse Ox O2 Delivery O2 Flow Rate FiO2 09/25/20 07:29 106 24 40 09/25/20 06:00 106 19 130/78 (95) 96 09/25/20 05:00 104 19 141/81 (101) 95 09/25/20 04:00 40 09/25/20 04:00 96 09/25/20 04:00 Mechanical Ventilator Mechanical Ventilator 09/25/20 04:00 98.7 96 25 133/81 (98) 98 09/25/20 03:06 96 30 40 09/25/20 03:00 95 24 123/82 (96) 98 09/25/20 02:00 98 29 132/80 (97) 98 09/25/20 01:00 96 26 123/79 (94) 100 09/25/20 00:00 100 09/25/20 00:00 Mechanical Ventilator Mechanical Ventilator 09/25/20 00:00 40 09/25/20 00:00 98.2 93 22 118/75 (89) 99 09/24/20 23:07 96 31 40 09/24/20 23:00 95 25 130/77 (94) 100 09/24/20 22:00 95 21 132/77 (95) 99 09/24/20 21:00 92 19 128/72 (90) 99 09/24/20 20:00 Mechanical Ventilator Mechanical Ventilator 09/24/20 20:00 40 09/24/20 20:00 96 09/24/20 20:00 98.4 88 15 106/64 (78) 99 09/24/20 19:24 105 30 40 09/24/20 18:59 98 20 125/79 (94) 97 09/24/20 18:00 99 27 121/71 (88) 97 09/24/20 17:00 95 18 127/81 (96) 97 09/24/20 16:00 98.6 96 19 126/81 (96) 96 09/24/20 16:00 96 09/24/20 16:00 Mechanical Ventilator Mechanical Ventilator 09/24/20 16:00 40 09/24/20 15:25 94 28 40 09/24/20 15:00 94 20 131/83 (99) 95 09/24/20 14:00 89 20 119/75 (90) 97 09/24/20 13:00 100 23 128/75 (92) 96 09/24/20 12:00 Mechanical Ventilator Mechanical Ventilator 09/24/20 12:00 96 09/24/20 12:00 40 09/24/20 12:00 99.0 93 28 119/73 (88) 97 09/24/20 11:00 97 23 126/71 (89) 98 09/24/20 10:55 100 26 40 09/24/20 10:00 102 26 125/71 (89) 97 09/24/20 10:00 40 09/24/20 09:39 99.0 09/24/20 09:00 92 20 114/69 (84) 98 Intake and Output 09/24/20 09/25/20 19:00 07:00 Intake Total 1858.333 ml 1252.5 ml Output Total 495 ml 390 ml Balance 1363.333 ml 862.5 ml Free Water 100 ml IV Total 1098.333 ml 952.5 ml Tube Feeding 660 ml 300 ml Output Urine Total 495 ml 390 ml # Bowel Movements 3 1 Microbiology Date/Time Source Procedure Growth Status 09/24/20 10:50 Nasopharynx SARS-CoV-2 RdRp Gene Assay - Final Complete 09/18/20 18:30 Stool Clostridium difficile Toxin Assay - Final Complete 09/17/20 12:58 Blood Blood Culture - Final NO GROWTH AFTER 5 DAYS Complete 09/10/20 20:05 Urine,Clean Catch Urine Culture - Final NO GROWTH AFTER 48 HOURS Complete 09/10/20 17:15 Rectum VRE Culture - Final Enterococcus Faecalis - Vre Complete Current Medications Medications (Trade) Dose Ordered Sig/Aleksander Route PRN Reason Start Time Stop Time Status Last Admin Dose Admin Acetaminophen (Tylenol) 650 mg Q4H PRN NG Temp >100.5 09/10/20 23:15 10/10/20 23:14 09/24/20 12:22 Al Hydroxide/Mg Hydroxide (Mylanta) 30 ml Q4H PRN NG Constipation 09/11/20 00:15 10/10/20 23:14 Ascorbic Acid (Vitamin C) 250 mg DAILY ORAL 09/18/20 09:00 10/18/20 08:59 09/24/20 09:08 Dextrose 1,000 ml @ 75 mls/hr [id number] IV 09/24/20 07:30 10/24/20 07:29 09/24/20 20:31 Diphenoxylate HCl/ Atropine (Lomotil) 2.5 mg Q4H PRN ORAL Diarrhea 09/20/20 08:15 10/20/20 08:14 Finasteride (Proscar) 5 mg DAILY ORAL 09/13/20 09:00 12/12/20 08:59 09/24/20 09:11 Lorazepam (Ativan 2mg/ml 1ml) 1 mg Q3H PRN IV For Anxiety/Agitation 09/21/20 12:30 09/28/20 12:29 09/21/20 17:53 Multivitamins (Multivitamins) 1 tab DAILY ORAL 09/18/20 09:00 10/18/20 08:59 09/24/20 09:11 Ondansetron HCl (Zofran) 4 mg Q6H PRN IVP Nausea & Vomiting 09/10/20 23:15 10/10/20 23:14 Pantoprazole (Protonix) 40 mg DAILY IVP 09/11/20 09:00 10/11/20 08:59 09/24/20 09:11 Piperacillin Sod/ Tazobactam Sod 4.5 gm/Sodium Chloride 110 ml @ 27.5 mls/hr EVERY 8 HOURS IVPB 09/21/20 14:00 09/26/20 13:59 09/25/20 05:32 Tamsulosin HCl (Flomax) 0.4 mg BEDTIME ORAL 09/12/20 21:00 10/12/20 20:59 09/24/20 20:30 Valproic Acid (Depakene) 1,000 mg BEDTIME NG 09/16/20 21:00 10/31/20 20:59 09/24/20 20:31 Vancomycin HCl (Vanco pharmacy to dose) 1 ea DAILY PRN MISC Per rx protocol 09/16/20 08:45 10/16/20 08:44 Vancomycin HCl 750 mg/Sodium Chloride 275 ml @ 183.333 mls/hr Q12H IVPB 09/25/20 08:00 09/30/20 07:59 Zinc Sulfate (Zinc Sulfate) 220 mg DAILY ORAL 09/18/20 09:00 09/28/20 08:59 09/24/20 09:08 Laboratory Tests 09/25/20 05:15: Sodium Level 147H, Potassium Level 4.4, Chloride Level 113H, Carbon Dioxide Level 33H, Anion Gap 1L, Blood Urea Nitrogen 44H, Creatinine 0.9, Estimat Glomerular Filtration Rate > 60, Glucose Level 119H, Calcium Level 8.0L, Total Bilirubin 0.5, Aspartate Amino Transf (AST/SGOT) 85H, Alanine Aminotransferase (ALT/SGPT) 88H, Alkaline Phosphatase 69, Total Protein 6.2L, Albumin 1.4L, Globulin 4.8, Albumin/Globulin Ratio 0.3L, Vancomycin Level Trough 14.5H Height (Feet): 5 Height (Inches): 7.00 Weight (Pounds): 121 Objective exam stable urine clearing Levi Brunson MD Sep 25, 2020 08:04
--- NOTE | 2020-09-25 08:20 | General Progress Note ---
Subjective ROS Limited/Unobtainable: Yes Allergies: Coded Allergies: No Known Allergies (Unverified , 09/10/20) Subjective on vent very labile oxygenation better ICU care reviewed all consultants noted Objective Last 24 Hour Vital Signs Date Time Temp Pulse Resp B/P (MAP) Pulse Ox O2 Delivery O2 Flow Rate FiO2 09/25/20 07:29 106 24 40 09/25/20 06:00 106 19 130/78 (95) 96 09/25/20 05:00 104 19 141/81 (101) 95 09/25/20 04:00 40 09/25/20 04:00 96 09/25/20 04:00 Mechanical Ventilator Mechanical Ventilator 09/25/20 04:00 98.7 96 25 133/81 (98) 98 09/25/20 03:06 96 30 40 09/25/20 03:00 95 24 123/82 (96) 98 09/25/20 02:00 98 29 132/80 (97) 98 09/25/20 01:00 96 26 123/79 (94) 100 09/25/20 00:00 100 09/25/20 00:00 Mechanical Ventilator Mechanical Ventilator 09/25/20 00:00 40 09/25/20 00:00 98.2 93 22 118/75 (89) 99 09/24/20 23:07 96 31 40 09/24/20 23:00 95 25 130/77 (94) 100 09/24/20 22:00 95 21 132/77 (95) 99 09/24/20 21:00 92 19 128/72 (90) 99 09/24/20 20:00 Mechanical Ventilator Mechanical Ventilator 09/24/20 20:00 40 09/24/20 20:00 96 09/24/20 20:00 98.4 88 15 106/64 (78) 99 09/24/20 19:24 105 30 40 09/24/20 18:59 98 20 125/79 (94) 97 09/24/20 18:00 99 27 121/71 (88) 97 09/24/20 17:00 95 18 127/81 (96) 97 09/24/20 16:00 98.6 96 19 126/81 (96) 96 09/24/20 16:00 96 09/24/20 16:00 Mechanical Ventilator Mechanical Ventilator 09/24/20 16:00 40 09/24/20 15:25 94 28 40 09/24/20 15:00 94 20 131/83 (99) 95 09/24/20 14:00 89 20 119/75 (90) 97 09/24/20 13:00 100 23 128/75 (92) 96 09/24/20 12:00 Mechanical Ventilator Mechanical Ventilator 09/24/20 12:00 96 09/24/20 12:00 40 09/24/20 12:00 99.0 93 28 119/73 (88) 97 09/24/20 11:00 97 23 126/71 (89) 98 09/24/20 10:55 100 26 40 09/24/20 10:00 102 26 125/71 (89) 97 09/24/20 10:00 40 09/24/20 09:39 99.0 09/24/20 09:00 92 20 114/69 (84) 98 Intake and Output 09/24/20 09/25/20 19:00 07:00 Intake Total 1858.333 ml 1252.5 ml Output Total 495 ml 390 ml Balance 1363.333 ml 862.5 ml Free Water 100 ml IV Total 1098.333 ml 952.5 ml Tube Feeding 660 ml 300 ml Output Urine Total 495 ml 390 ml # Bowel Movements 3 1 Laboratory Tests 09/25/20 05:15: Sodium Level 147H, Potassium Level 4.4, Chloride Level 113H, Carbon Dioxide Level 33H, Anion Gap 1L, Blood Urea Nitrogen 44H, Creatinine 0.9, Estimat Glomerular Filtration Rate > 60, Glucose Level 119H, Calcium Level 8.0L, Total Bilirubin 0.5, Aspartate Amino Transf (AST/SGOT) 85H, Alanine Aminotransferase (ALT/SGPT) 88H, Alkaline Phosphatase 69, Total Protein 6.2L, Albumin 1.4L, Globulin 4.8, Albumin/Globulin Ratio 0.3L, Vancomycin Level Trough 14.5H Height (Feet): 5 Height (Inches): 7.00 Weight (Pounds): 121 Objective WDWN chronically ill ETT in place feeding tube in place reduced breath sounds bilaterally with scattered rhonchi [id number] tachy without MRG NABS nontender no CCE nonfocal poor LOC Assessment/Plan Assessment/Plan: IMPRESSION: 1. Acute renal failure. 2. Hypernatremia. 3. Leukocytosis. 4. Possible sepsis. 5. Hypotension. 6. Dementia. 7. Acute on chronic encephalopathy. 8. bcx staph Epi 9. MRSA colonized 10. acute hypoxemic respiratory failure 11. atelectasis/collapse 12. leukocytosis PLAN taper fio2 as able taper PEEP as able ID noted; monitor wbc- monitor follow up on antibiotics monitor renal parameters monitor oxygen needs vent support as is off load correct sodium position change monitor imaging d/w consultants and nursing remains critical at present CANNOT OPTIMIZE, NEEDS TRACH/AIRWAY/GT for chronic care management discussed with consultants and CM no family found await trach/peg and placement medications/laboratory data/nursing notes/ICU care reviewed in detail note reviewed and edited care discussed with RN and RT ICU time spent >40 minutes Patel Villasenor MD Sep 25, 2020 08:20
[2020-09-25] MEDS: Vancomycin 750mg/NS 275ml IVPB SCH ×4 (09:34→20:12)
[2020-09-25] MEDS: Pantoprazole Inj IVP SCH (09:34)
[2020-09-25] MEDS: Ascorbic Acid 500mg tab ORAL SCH (09:34)
[2020-09-25] MEDS: Zinc Sulfate 220mg ORAL SCH (09:35)
[2020-09-25] MEDS: Acetaminophen 650mg/20.3ml NG PRN ×2 (09:44→16:26)
--- NOTE | 2020-09-25 10:09 | NUR ---
NURSE NOTES: tyneol given ax temp 100.5. via ngt.
--- NOTE | 2020-09-25 10:27 | NUR ---
NURSE NOTES: LATE ENTRY: MD TREVIZO HERE TO SEE PT. WAS INFORMED OF AX TEMP 100.5, NEW RASHES/HIVES ON SKIN, PT TORSO AND LOWER EXTREMITIES. MD WILL ADJUST PT ANTIBIOTICS.
--- NOTE | 2020-09-25 10:40 | NUR ---
NURSE NOTES: LATE ENTRY: MD. BREWER HERE TO SEE PT. INFORMED NO PEG TODAY. . PLANS TRACH THURSDAY. INFORMED OF NO FAMILY, REGARDING CONSENT. AWARE.
--- NOTE | 2020-09-25 11:11 | Infectious Diseases Prog Note ---
Assessment/Plan Assessment/Plan antibiotics : vancomycin iv, zosyn A 1. MRSA Pneumonia COVID-19 test is negative. 2. Dementia. 3. Leukocytosis improving 4. Urinary tract infection 5. + blood cultures with coag neg staph likely contaminated 6. respiratory failure 7 ? allergic reaction to zosyn P 1. continue vancomycin iv 2. d/c zosyn 3. will follow up cultures Subjective ROS Limited/Unobtainable: Yes Allergies: Coded Allergies: No Known Allergies (Unverified , 09/10/20) Objective Last 24 Hour Vital Signs Date Time Temp Pulse Resp B/P (MAP) Pulse Ox O2 Delivery O2 Flow Rate FiO2 09/25/20 10:14 99.9 09/25/20 10:00 96 14 104/67 (79) 99 09/25/20 09:00 Mechanical Ventilator Mechanical Ventilator 09/25/20 09:00 109 22 130/71 (90) 94 09/25/20 08:00 99 09/25/20 08:00 40 09/25/20 08:00 108 17 121/76 (91) 96 09/25/20 08:00 40 09/25/20 07:29 106 24 40 09/25/20 07:00 100.5 104 20 138/78 (98) 97 09/25/20 06:00 106 19 130/78 (95) 96 09/25/20 05:00 104 19 141/81 (101) 95 09/25/20 04:00 40 09/25/20 04:00 96 09/25/20 04:00 Mechanical Ventilator Mechanical Ventilator 09/25/20 04:00 98.7 96 25 133/81 (98) 98 09/25/20 03:06 96 30 40 09/25/20 03:00 95 24 123/82 (96) 98 09/25/20 02:00 98 29 132/80 (97) 98 09/25/20 01:00 96 26 123/79 (94) 100 09/25/20 00:00 100 09/25/20 00:00 Mechanical Ventilator Mechanical Ventilator 09/25/20 00:00 40 09/25/20 00:00 98.2 93 22 118/75 (89) 99 09/24/20 23:07 96 31 40 09/24/20 23:00 95 25 130/77 (94) 100 09/24/20 22:00 95 21 132/77 (95) 99 09/24/20 21:00 92 19 128/72 (90) 99 09/24/20 20:00 Mechanical Ventilator Mechanical Ventilator 09/24/20 20:00 40 09/24/20 20:00 96 09/24/20 20:00 98.4 88 15 106/64 (78) 99 09/24/20 19:24 105 30 40 09/24/20 18:59 98 20 125/79 (94) 97 09/24/20 18:00 99 27 121/71 (88) 97 09/24/20 17:00 95 18 127/81 (96) 97 09/24/20 16:00 98.6 96 19 126/81 (96) 96 09/24/20 16:00 96 09/24/20 16:00 Mechanical Ventilator Mechanical Ventilator 09/24/20 16:00 40 09/24/20 15:25 94 28 40 09/24/20 15:00 94 20 131/83 (99) 95 09/24/20 14:00 89 20 119/75 (90) 97 09/24/20 13:00 100 23 128/75 (92) 96 09/24/20 12:00 Mechanical Ventilator Mechanical Ventilator 09/24/20 12:00 96 09/24/20 12:00 40 09/24/20 12:00 99.0 93 28 119/73 (88) 97 Height (Feet): 5 Height (Inches): 7.00 Weight (Pounds): 121 HEENT: other - intubated Respiratory/Chest: lungs clear Cardiovascular: normal rate, regular rhythm, no gallop/murmur Abdomen: soft, non tender Extremities: no clubbing, other - + edema Skin: rash - erythematous on chest, legs Microbiology Date/Time Source Procedure Growth Status 09/24/20 10:50 Nasopharynx SARS-CoV-2 RdRp Gene Assay - Final Complete Laboratory Tests Test 09/25/20 05:15 Sodium Level 147 MMOL/L (136-145) H Potassium Level 4.4 MMOL/L (3.5-5.1) Chloride Level 113 MMOL/L (98-107) H Carbon Dioxide Level 33 MMOL/L (21-32) H Anion Gap 1 mmol/L (5-15) L Blood Urea Nitrogen 44 mg/dL (7-18) H Creatinine 0.9 MG/DL (0.55-1.30) Estimat Glomerular Filtration Rate > 60 mL/min (>60) Glucose Level 119 MG/DL (74-106) H Calcium Level 8.0 MG/DL (8.5-10.1) L Total Bilirubin 0.5 MG/DL (0.2-1.0) Aspartate Amino Transf (AST/SGOT) 85 U/L (15-37) H Alanine Aminotransferase (ALT/SGPT) 88 U/L (12-78) H Alkaline Phosphatase 69 U/L (46-116) Total Protein 6.2 G/DL (6.4-8.2) L Albumin 1.4 G/DL (3.4-5.0) L Globulin 4.8 g/dL Albumin/Globulin Ratio 0.3 (1.0-2.7) L Vancomycin Level Trough 14.5 ug/mL (5.0-12.0) H Current Medications Medications (Trade) Dose Ordered Sig/Aleksander Route PRN Reason Start Time Stop Time Status Last Admin Dose Admin Acetaminophen (Tylenol) 650 mg Q4H PRN NG Temp >100.5 09/10/20 23:15 10/10/20 23:14 09/25/20 09:44 Al Hydroxide/Mg Hydroxide (Mylanta) 30 ml Q4H PRN NG Constipation 09/11/20 00:15 10/10/20 23:14 Ascorbic Acid (Vitamin C) 250 mg DAILY ORAL 09/18/20 09:00 10/18/20 08:59 09/25/20 09:34 Dextrose 1,000 ml @ 75 mls/hr [id number] IV 09/24/20 07:30 10/24/20 07:29 09/25/20 10:10 Diphenoxylate HCl/ Atropine (Lomotil) 2.5 mg Q4H PRN ORAL Diarrhea 09/20/20 08:15 10/20/20 08:14 Finasteride (Proscar) 5 mg DAILY ORAL 09/13/20 09:00 12/12/20 08:59 09/25/20 09:35 Lorazepam (Ativan 2mg/ml 1ml) 1 mg Q3H PRN IV For Anxiety/Agitation 09/21/20 12:30 09/28/20 12:29 09/21/20 17:53 Multivitamins (Multivitamins) 1 tab DAILY ORAL 09/18/20 09:00 10/18/20 08:59 09/25/20 09:34 Ondansetron HCl (Zofran) 4 mg Q6H PRN IVP Nausea & Vomiting 09/10/20 23:15 10/10/20 23:14 Pantoprazole (Protonix) 40 mg DAILY IVP 09/11/20 09:00 10/11/20 08:59 09/25/20 09:34 Piperacillin Sod/ Tazobactam Sod 4.5 gm/Sodium Chloride 110 ml @ 27.5 mls/hr EVERY 8 HOURS IVPB 09/21/20 14:00 09/26/20 13:59 09/25/20 05:32 Tamsulosin HCl (Flomax) 0.4 mg BEDTIME ORAL 09/12/20 21:00 10/12/20 20:59 09/24/20 20:30 Valproic Acid (Depakene) 1,000 mg BEDTIME NG 09/16/20 21:00 10/31/20 20:59 09/24/20 20:31 Vancomycin HCl (Vanco pharmacy to dose) 1 ea DAILY PRN MISC Per rx protocol 09/16/20 08:45 10/16/20 08:44 Vancomycin HCl 750 mg/Sodium Chloride 275 ml @ 183.333 mls/hr Q12H IVPB 09/25/20 08:00 09/30/20 07:59 09/25/20 09:34 Zinc Sulfate (Zinc Sulfate) 220 mg DAILY ORAL 09/18/20 09:00 09/28/20 08:59 09/25/20 09:35 Martha Collins MD Sep 25, 2020 11:11
--- NOTE | 2020-09-25 12:10 | NUR ---
NURSE NOTES: LATE ENTRY: PT IN BED, OBTUNDED. PUPILS 3MM SLUGGISH. SR ON MONITOR. PT INTUBATED ETTUBE 7.5, 23CM AT LIP. SETTINGS AC 18, 500, 40%, PEEP 8. LUNG SOUNDS RALES. JEVITY 1.2 at 60ml/hr. ABDOMEN SOFT, NON TENDER. NO BM AT THIS TIME. HERNANDEZ DRAINING DARK YULISSA URINE. PLACED LEFT WRIST 22G. D5W AT 75ML/HR. AX TEMP 100.5. BILATERAL RADIAL AND PEDAL PULSES STRONG. PITTING EDEMA OF EXTREMITIES. PT IN CONTACT ISOLATION. BED ALARM ON, BED LOCKED IN LOW POSITION. WILL CONTINUE TO IMPLEMENT PLAN OF CARE.
--- NOTE | 2020-09-25 15:06 | Surgery Progress Note ---
Surgery Progress Note Subjective Additional Comments no acute events weaning vent well but not safe for extubation Objective Last 24 Hour Vital Signs Date Time Temp Pulse Resp B/P (MAP) Pulse Ox O2 Delivery O2 Flow Rate FiO2 09/25/20 14:00 94 21 107/66 (80) 96 09/25/20 13:30 88 23 114/75 (88) 99 09/25/20 13:00 93 22 114/84 (94) 99 09/25/20 12:30 103 34 119/75 (90) 97 09/25/20 12:00 99.0 98 25 128/77 (94) 98 09/25/20 12:00 Mechanical Ventilator Mechanical Ventilator 09/25/20 12:00 40 09/25/20 11:32 103 27 40 09/25/20 11:00 99 24 122/68 (86) 100 09/25/20 10:14 99.9 09/25/20 10:00 96 14 104/67 (79) 99 09/25/20 09:00 Mechanical Ventilator Mechanical Ventilator 09/25/20 09:00 109 22 130/71 (90) 94 09/25/20 08:00 99 09/25/20 08:00 40 09/25/20 08:00 108 17 121/76 (91) 96 09/25/20 08:00 40 09/25/20 07:29 106 24 40 09/25/20 07:00 100.5 104 20 138/78 (98) 97 09/25/20 06:00 106 19 130/78 (95) 96 09/25/20 05:00 104 19 141/81 (101) 95 09/25/20 04:00 40 09/25/20 04:00 96 09/25/20 04:00 Mechanical Ventilator Mechanical Ventilator 09/25/20 04:00 98.7 96 25 133/81 (98) 98 09/25/20 03:06 96 30 40 09/25/20 03:00 95 24 123/82 (96) 98 09/25/20 02:00 98 29 132/80 (97) 98 09/25/20 01:00 96 26 123/79 (94) 100 09/25/20 00:00 100 09/25/20 00:00 Mechanical Ventilator Mechanical Ventilator 09/25/20 00:00 40 09/25/20 00:00 98.2 93 22 118/75 (89) 99 09/24/20 23:07 96 31 40 09/24/20 23:00 95 25 130/77 (94) 100 09/24/20 22:00 95 21 132/77 (95) 99 09/24/20 21:00 92 19 128/72 (90) 99 09/24/20 20:00 Mechanical Ventilator Mechanical Ventilator 09/24/20 20:00 40 09/24/20 20:00 96 09/24/20 20:00 98.4 88 15 106/64 (78) 99 09/24/20 19:24 105 30 40 09/24/20 18:59 98 20 125/79 (94) 97 09/24/20 18:00 99 27 121/71 (88) 97 09/24/20 17:00 95 18 127/81 (96) 97 09/24/20 16:00 98.6 96 19 126/81 (96) 96 09/24/20 16:00 96 09/24/20 16:00 Mechanical Ventilator Mechanical Ventilator 09/24/20 16:00 40 09/24/20 15:25 94 28 40 I&O Intake and Output 09/24/20 09/25/20 19:00 07:00 Intake Total 1858.333 ml 1252.5 ml Output Total 495 ml 390 ml Balance 1363.333 ml 862.5 ml Free Water 100 ml IV Total 1098.333 ml 952.5 ml Tube Feeding 660 ml 300 ml Output Urine Total 495 ml 390 ml # Bowel Movements 3 1 Dressing: saturated Cardiovascular: RSR Respiratory: decreased breath sounds Abdomen: non-tender, present bowel sounds Extremities: no edema, no tenderness, no cyanosis Laboratory Tests Test 09/25/20 05:15 Sodium Level 147 MMOL/L (136-145) H Potassium Level 4.4 MMOL/L (3.5-5.1) Chloride Level 113 MMOL/L (98-107) H Carbon Dioxide Level 33 MMOL/L (21-32) H Anion Gap 1 mmol/L (5-15) L Blood Urea Nitrogen 44 mg/dL (7-18) H Creatinine 0.9 MG/DL (0.55-1.30) Estimat Glomerular Filtration Rate > 60 mL/min (>60) Glucose Level 119 MG/DL (74-106) H Calcium Level 8.0 MG/DL (8.5-10.1) L Total Bilirubin 0.5 MG/DL (0.2-1.0) Aspartate Amino Transf (AST/SGOT) 85 U/L (15-37) H Alanine Aminotransferase (ALT/SGPT) 88 U/L (12-78) H Alkaline Phosphatase 69 U/L (46-116) Total Protein 6.2 G/DL (6.4-8.2) L Albumin 1.4 G/DL (3.4-5.0) L Globulin 4.8 g/dL Albumin/Globulin Ratio 0.3 (1.0-2.7) L Vancomycin Level Trough 14.5 ug/mL (5.0-12.0) H Plan Problems: (1) Fever Assessment & Plan: maybe developing pneumonia cont abx pulm input thank you (2) Decubitus skin ulcer Assessment & Plan: Patient identified on admission to have multiple scabs on the left arm. mild open scabs with eschar. no drainage. no significant c ellulitis. bruising no bilateral extremities noted. no signs of abuse. likely from agitation Sacral coccygeal noted to have a DTI 4.3X2.5CM. which is dark purple . RECOMMEND-CLEAN WITH SALINE, PAT DRY AND APPLY CALAZINE. COVER WITH OPTIFOAM DRESSING. REPLACE EVERY 3 DAYS OR NEEDED LEFT ISCHIUM- STAGE I PRESSURE ULCER MEASURES 4.5X1.7CM. NON-BLANCHABLE ERYTHEMA. RECOMMEND- APPLY CALAZINE AND COVER WITH OPTIFOAM DRESSING. REPLACE EVERY 7 DAYS. 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 Roman is a 70 year old male BIBA to ED of [facility] [place] on 09/10/2020 around 14:00 due to fever. He was found to be hypotensive 91/55 (67), Temp: 100.0, leukocytosis 20.8k and subsequently transferred to ICU for septic shock. The blood culture is reportedly positive for gram positive cocci. NG tube was placed, KUB confirmed the placement to day. Pt is clinically stable with leukocytosis 20.1, improved BUN and creatine, stable hemodynamic without vasopressor. Findings: Mr. Roman is disoriented. He does ot follow commands at this time. Oral cavity is noted to be dried blood concretion likely from NG trauma. No a ctive bleeding site is seen. Due to his level f alertness, already NG tube is in placed, PO trial was not done at this time. Transferred out ICU last night. He is non on tele. Issues: multiple wounds, s.p balaji/nasal/pharyngeal bleeding with blood culture Gram positive cocci leukocytosis trending down from 20k-20k-16k BUN/Creatine trending down from 93/1.9-79/1.3-54/1.1 Temp: 98.1~98.7, Pulse: 62~72, BP: 105/67~120/48, SPO2 98~100% on 2 liter S: Oral cavity is better condition comparison to yesterday. The mucosa is severely erythema without active bleeding. Limited level of alertness for direct therapy. NG in placed O: 1. Laryngeal palpation to trigger spontaneous cough and swallow: Pt triggered cough with laryngeal palpation. Approximately 5~10 seconds after coughing, he triggered swallow. based on this observation, he presents with copious secretion in pharynx and larynx. He continued to have poor secretion management at laryngeal level at this time. NO PO trial was given due to poor secretion at the level of air way with low level of alertness. A: 1. Probable aspiration of his own secretion with poor ability to cough and swallow 2. Dysphagia P: 1. NPO for now 2. Observe his secretion, and level of alertness for PO readiness. DAILY ESTIMATED NEEDS: Needs based on Wound, underweight/ 55kg 30-35 kcals/kg 3542-8953 total kcals 1.25-2 g protein/kg 69-110 g total protein 25-30 mL/kg 3809-3264 total fluid mLs NUTRITION DIAGNOSIS: Increased kcal/prot needs R/T wound healing and underweight status as evidenced by pt admitted w/ wounds including DTI 2 coccyx and stage 1 @ lt ischium, pt @ 73% IBW w/ low BMI per guidelines, s/p NGT insertion, on NGT feeds. CURRENT TF:Jevity 1.2 @ 50ml/hr x 24 hrs ENTERAL NUTRITION RECOMMENDATIONS: Jevity 1.2 @ 60ml/hr x 24 hrs to provide 1440ml, 1728kcal, 80g prot, 1160ml free water * As medically appropriate, increase goal rate to 60ml/hr x 24 hrs to meet 100% est kcal/prot needs * HOB over 30 degrees/ without IVF, H2O flush of 100ml q 8hrs ADDITIONAL RECOMMENDATIONS: * Calibrated daily bedscale wt Per SNF: HT=70" * Wound healing: TF rec @ goal will provide 100% RDI add Vit C 250mg QD, ZnSO4 220mg QD x 10days, Davidson BID via NGT * Monitor BGs, need for NISS w/ TF * Monitor lytes, replete as needed- high risk for refeeding syndrome -> check f/up phos and mag (4) Severe sepsis Assessment & Plan: will likely need trach and peg. patient needs protected air way and nutrition full code no family and unable to consent medically necessary. will plan soon (5) Open upper arm wound (6) Hematuria Assessment & Plan: as per urology Aubrey Gutierrez Sep 25, 2020 15:06
--- NOTE | 2020-09-25 15:07 | Pre-Procedure Note/Attestation ---
Pre-Procedure Note/Attestation Complete Prior to Procedure Procedure Narrative: tracheostomy Indications for Procedure Pre-Operative Diagnosis: respiratory insufficiency requiring prolonged ventilatory support Attestation I attest that I discussed the nature of the procedure; its benefits; risks and complications; and alternatives (and the risks and benefits of such alternatives), prior to the procedure, with the patient (or the patient's legal petroleum products sales representative). I attest that, if there was a reasonable possibility of needing a blood tr ansfusion, the patient (or the patient's legal petroleum products sales representative) was given the [facility] standardized written summary, pursuant to the [place] Blood Safety Act ([place] Health and Safety Code # 1645, as amended). I attest that I re-evaluated the patient just prior to the surgery and that there has been no change in the patient's H&P, except as documented below: patient unable to consent. no next of kin. no power of civil rights attorney. not safe for extubation. weaning vent given care plan trach indicated and medically necessary. Aubrey Gutierrez Sep 25, 2020 15:07
[2020-09-25] MEDS: LORazepam Inj 2mg/ml 1ml IV PRN (16:27)
--- NOTE | 2020-09-25 16:27 | NUR ---
NURSE NOTES: LATE ENTRY: PT VERY AGITATED AND KICKING LEGS AND FIGHTING VENT. DIFFICULT TO COMFORT. ATIVAN 0.5ML IVP GIVEN. WILL MONITOR PT.
--- NOTE | 2020-09-25 19:12 | NUR ---
NURSE HAND-OFF REPORT: Latest Vital Signs: Temperature 99.0 , Pulse 82 , B/P 92 /61 , Respiratory Rate 13 , O2 SAT 95 , Mechanical Ventilator, O2 Flow Rate 15.0 . Vital Sign Comment: EKG Rhythm: Sinus Rhythm Rhythm change?: N Notified?: Y -Dr Jacklyn BENITEZ Response: No New Orders Received Latest Schultz Fall Score: 70 Fall Risk: High Risk Safety Measures: Call light Within Reach, Bed Alarm Zone 1, Side Rails Side Rails x3, Bed position Low and Locked. Fall Precautions: Yellow Socks Door Sign Patient Fall Education Report given to .Vladimir laureano
--- NOTE | 2020-09-25 19:30 | NUR ---
NURSE NOTES: pt report received from doan. RN. pt is non verbal at the moment, opens eyes to tactile stimuli, then quickly falls back asleep. pt is showing sinus rhythm on the pvc monitor, no acute symptoms of cardiac distress. pt is oral tube vented, sating 99% O2, no symptoms of resp distress noted. pt bed is low, locked, armed, call light within reach, bed rails up times 3. will follow plan of care.
[2020-09-25] MEDS: Valproic Acid 250mg/5ml Liquid NG SCH (20:12)
[2020-09-25] MEDS: Tamsulosin 0.4mg cap ORAL SCH (20:12)
--- NOTE | 2020-09-25 21:40 | NUR ---
NURSE NOTES: reposition pt in bed. pillows under pressure points.
--- NOTE | 2020-09-25 22:59 | General Progress Note ---
Subjective Allergies: Coded Allergies: No Known Allergies (Unverified , 09/10/20) Subjective above noted d/w RN no family or next of kin to discuss PEG WBC and Na both high Objective Last 24 Hour Vital Signs Date Time Temp Pulse Resp B/P (MAP) Pulse Ox O2 Delivery O2 Flow Rate FiO2 09/25/20 22:30 103 31 40 09/25/20 22:00 95 28 109/71 (84) 95 09/25/20 21:00 93 26 106/70 (82) 94 09/25/20 20:00 Mechanical Ventilator Mechanical Ventilator 09/25/20 20:00 40 09/25/20 20:00 98.2 94 26 105/67 (80) 94 09/25/20 19:06 86 25 40 09/25/20 19:00 86 20 106/58 (74) 96 09/25/20 18:00 82 13 92/61 (71) 95 09/25/20 17:00 88 13 98/64 (75) 94 09/25/20 16:27 93 22 127/41 100 09/25/20 16:07 95 26 40 09/25/20 16:00 90 09/25/20 16:00 94 31 130/89 (103) 96 09/25/20 16:00 40 09/25/20 16:00 Mechanical Ventilator Mechanical Ventilator 09/25/20 16:00 Mechanical Ventilator Mechanical Ventilator 09/25/20 15:20 104 26 40 09/25/20 15:00 93 25 123/82 (96) 97 09/25/20 14:00 94 21 107/66 (80) 96 09/25/20 13:30 88 23 114/75 (88) 99 09/25/20 13:00 93 22 114/84 (94) 99 09/25/20 12:30 103 34 119/75 (90) 97 09/25/20 12:00 99.0 98 25 128/77 (94) 98 09/25/20 12:00 Mechanical Ventilator Mechanical Ventilator 09/25/20 12:00 89 09/25/20 12:00 40 09/25/20 11:32 103 27 40 09/25/20 11:00 99 24 122/68 (86) 100 09/25/20 10:14 99.9 09/25/20 10:00 96 14 104/67 (79) 99 09/25/20 09:00 Mechanical Ventilator Mechanical Ventilator 09/25/20 09:00 109 22 130/71 (90) 94 09/25/20 08:00 99 09/25/20 08:00 40 09/25/20 08:00 108 17 121/76 (91) 96 09/25/20 08:00 40 09/25/20 07:29 106 24 40 09/25/20 07:00 100.5 104 20 138/78 (98) 97 09/25/20 06:00 106 19 130/78 (95) 96 09/25/20 05:00 104 19 141/81 (101) 95 09/25/20 04:00 40 09/25/20 04:00 96 09/25/20 04:00 Mechanical Ventilator Mechanical Ventilator 09/25/20 04:00 98.7 96 25 133/81 (98) 98 09/25/20 03:06 96 30 40 09/25/20 03:00 95 24 123/82 (96) 98 09/25/20 02:00 98 29 132/80 (97) 98 09/25/20 01:00 96 26 123/79 (94) 100 09/25/20 00:00 100 09/25/20 00:00 Mechanical Ventilator Mechanical Ventilator 09/25/20 00:00 40 09/25/20 00:00 98.2 93 22 118/75 (89) 99 09/24/20 23:07 96 31 40 09/24/20 23:00 95 25 130/77 (94) 100 Intake and Output 09/24/20 09/25/20 19:00 07:00 Intake Total 1858.333 ml 1252.5 ml Output Total 495 ml 390 ml Balance 1363.333 ml 862.5 ml Free Water 100 ml IV Total 1098.333 ml 952.5 ml Tube Feeding 660 ml 300 ml Output Urine Total 495 ml 390 ml # Bowel Movements 3 1 Laboratory Tests 09/25/20 05:15: Sodium Level 147H, Potassium Level 4.4, Chloride Level 113H, Carbon Dioxide Level 33H, Anion Gap 1L, Blood Urea Nitrogen 44H, Creatinine 0.9, Estimat Glomerular Filtration Rate > 60, Glucose Level 119H, Calcium Level 8.0L, Total Bilirubin 0.5, Aspartate Amino Transf (AST/SGOT) 85H, Alanine Aminotransferase (ALT/SGPT) 88H, Alkaline Phosphatase 69, Total Protein 6.2L, Albumin 1.4L, Globulin 4.8, Albumin/Globulin Ratio 0.3L, Vancomycin Level Trough 14.5H Height (Feet): 5 Height (Inches): 7.00 Weight (Pounds): 121 Objective Thin WM on vent HEENT NCAT supple coarse ronchi RR, slightly tachy abd soft flat ND no edema Assessment/Plan Assessment/Plan: Assessment - resp failure - NGT dependent - OBS/Dementia - sepsis - diarrhea, C Diff (-) - Azotemia, resolved - CHF - malnutrition , low albumin - leukocytosis - hypernatremia Recommendations -Vent care / support - abx - supportive care - continue TF - increase free water - abx - will arrange for PEG placement once medically stable Deborah Cabrera MD Sep 25, 2020 22:59
--- NOTE | 2020-09-25 23:27 | NUR ---
NURSE NOTES: assessed pt and pts IV pump. pt appears to be resting in bed. IV pump running medications as per doctor order.
[2020-09-26] VITALS (24 sets, daily range): BP systolic 96–136; BP diastolic 59–85
--- NOTE | 2020-09-26 01:30 | NUR ---
NURSE NOTES: pt turned, repositioned and cleaned with career developer.
--- NOTE | 2020-09-26 02:09 | Cardiology Progress Note ---
Subjective DATE OF SERVICE: Sep 25, 2020 Condition remains critical; prognosis guarded. Remains intubated and on mechanical ventilation. BP less tenuous; now mostly controlled. Monitor: sinus tachycardia. ABG: (09/22/20) 7.37/48/206 Objective Last 24 Hour Vital Signs Date Time Temp Pulse Resp B/P (MAP) Pulse Ox O2 Delivery O2 Flow Rate FiO2 09/26/20 02:00 98 27 106/65 (79) 96 09/26/20 01:00 102 28 99/84 (89) 96 09/26/20 00:00 40 09/26/20 00:00 98.9 100 31 119/75 (90) 96 09/26/20 00:00 Mechanical Ventilator Mechanical Ventilator 09/25/20 23:00 103 33 116/78 (91) 95 09/25/20 22:30 103 31 40 09/25/20 22:00 95 28 109/71 (84) 95 09/25/20 21:00 93 26 106/70 (82) 94 09/25/20 20:00 Mechanical Ventilator Mechanical Ventilator 09/25/20 20:00 40 09/25/20 20:00 98.2 94 26 105/67 (80) 94 09/25/20 19:06 86 25 40 09/25/20 19:00 86 20 106/58 (74) 96 09/25/20 18:00 82 13 92/61 (71) 95 09/25/20 17:00 88 13 98/64 (75) 94 09/25/20 16:27 93 22 127/41 100 09/25/20 16:07 95 26 40 09/25/20 16:00 90 09/25/20 16:00 94 31 130/89 (103) 96 09/25/20 16:00 40 09/25/20 16:00 Mechanical Ventilator Mechanical Ventilator 09/25/20 16:00 Mechanical Ventilator Mechanical Ventilator 09/25/20 15:20 104 26 40 09/25/20 15:00 93 25 123/82 (96) 97 09/25/20 14:00 94 21 107/66 (80) 96 09/25/20 13:30 88 23 114/75 (88) 99 09/25/20 13:00 93 22 114/84 (94) 99 09/25/20 12:30 103 34 119/75 (90) 97 09/25/20 12:00 99.0 98 25 128/77 (94) 98 09/25/20 12:00 Mechanical Ventilator Mechanical Ventilator 09/25/20 12:00 89 09/25/20 12:00 40 09/25/20 11:32 103 27 40 09/25/20 11:00 99 24 122/68 (86) 100 09/25/20 10:14 99.9 09/25/20 10:00 96 14 104/67 (79) 99 09/25/20 09:00 Mechanical Ventilator Mechanical Ventilator 09/25/20 09:00 109 22 130/71 (90) 94 09/25/20 08:00 99 09/25/20 08:00 40 09/25/20 08:00 108 17 121/76 (91) 96 09/25/20 08:00 40 09/25/20 07:29 106 24 40 09/25/20 07:00 100.5 104 20 138/78 (98) 97 09/25/20 06:00 106 19 130/78 (95) 96 09/25/20 05:00 104 19 141/81 (101) 95 09/25/20 04:00 40 09/25/20 04:00 96 09/25/20 04:00 Mechanical Ventilator Mechanical Ventilator 09/25/20 04:00 98.7 96 25 133/81 (98) 98 09/25/20 03:06 96 30 40 09/25/20 03:00 95 24 123/82 (96) 98 ROS: no change from my evaluation of 09/10/20. HEENT: Orally intubated, Mechanically Ventilated, Thin secretions ET Tube RHYTHM: NSR, ST LUNGS: bilat. rhonchi and rales CARDIAC: normal rate, regular rhythm, normal S1 and S2 ABDOMEN: normal bowel sounds, soft, other - sacral decub EXTREMITIES: No edema Laboratory Tests Test 09/25/20 05:15 Sodium Level 147 MMOL/L (136-145) H Potassium Level 4.4 MMOL/L (3.5-5.1) Chloride Level 113 MMOL/L (98-107) H Carbon Dioxide Level 33 MMOL/L (21-32) H Anion Gap 1 mmol/L (5-15) L Blood Urea Nitrogen 44 mg/dL (7-18) H Creatinine 0.9 MG/DL (0.55-1.30) Estimat Glomerular Filtration Rate > 60 mL/min (>60) Glucose Level 119 MG/DL (74-106) H Calcium Level 8.0 MG/DL (8.5-10.1) L Total Bilirubin 0.5 MG/DL (0.2-1.0) Aspartate Amino Transf (AST/SGOT) 85 U/L (15-37) H Alanine Aminotransferase (ALT/SGPT) 88 U/L (12-78) H Alkaline Phosphatase 69 U/L (46-116) Total Protein 6.2 G/DL (6.4-8.2) L Albumin 1.4 G/DL (3.4-5.0) L Globulin 4.8 g/dL Albumin/Globulin Ratio 0.3 (1.0-2.7) L Vancomycin Level Trough 14.5 ug/mL (5.0-12.0) H Microbiology Date/Time Source Procedure Growth Status 09/24/20 10:50 Nasopharynx SARS-CoV-2 RdRp Gene Assay - Final Complete Assessment/Plan Assessment/Plan Respiratory failure with hypoxia Sepsis Leukocytosis Probable new aspiration PNA Recurring shock Diarrhea Dehydration/hypernatremia Likely congestion due to aspiration Acute myocardial ischemia Acute renal failure HC assoc PNA UTI Transaminitis, acute CVA/dementia Sinus bradycardia in past; now with sinus tachycardia. Acute diastolic CHF Remains CRITICAL & GUARDED Vent support; may need trach ultimately Volume support with hypotonic IVfluids until free water deficit corrected Antimicrobials per ID. Replace lytes as needed. F/U liver fxn DVT prophyl Cardiac monitoring Madi Rios MD Sep 26, 2020 02:09
--- NOTE | 2020-09-26 03:30 | NUR ---
NURSE NOTES: replaced pts G tube feeding. G tube able to flush patently.
--- NOTE | 2020-09-26 05:10 | NUR ---
NURSE NOTES: pts vital signs stable. pt resting in bed comfortably.
[2020-09-26 06:26] LABS: ANION GAP 2 mmol/L (5-15); BLOOD UREA NITROGEN 42 mg/dL (7-18); CALCIUM 7.5 MG/DL (8.5-10.1); CARBON DIOXIDE 31 MMOL/L (21-32); CHLORIDE 114 MMOL/L (98-107); CREATININE 0.9 MG/DL (0.55-1.30); POTASSIUM 4.4 MMOL/L (3.5-5.1); SODIUM 147 MMOL/L (136-145)
--- NOTE | 2020-09-26 07:21 | NUR ---
NURSE HAND-OFF REPORT: Latest Vital Signs: Temperature 98.8 , Pulse 113 , B/P 131 /80 , Respiratory Rate 23 , O2 SAT 96 , Mechanical Ventilator, O2 Flow Rate 15.0 . Vital Sign Comment: Stable EKG Rhythm: Sinus Rhythm Rhythm change?: N Notified?: Y -Dr Jacklyn BENITEZ Response: No New Orders Received Latest Schultz Fall Score: 70 Fall Risk: High Risk Safety Measures: Call light Within Reach, Bed Alarm Zone 1, Side Rails Side Rails x3, Bed position Low and Locked. Fall Precautions: Yellow Socks Door Sign Patient Fall Education Report given to denny Medley RN
--- NOTE | 2020-09-26 07:22 | NUR ---
NURSE NOTES: Patient received from ARTEMIO York. Patient is very fatigued. Borderline obtunded however, patient does respond to stimulus, has a gag but does not readily open his eyes. When suctioned patient is very responsive. Patient does not appear in any acute distress, is free from grimacing. Patient is being monitored on the hall monitor with VS HR 102 Patient is orally intubated with 7.5 ETT with vent settings AC 18, VT500, Fi O2 at 40%, PEEP of 8. Upon auscultation, patient with BL rhonchi heard. Oral care was performed. Patient with NGT in R nares running Jevity 1.2 at 60cc/hr with no residual. Patient is with a Rae catheter in place that is patent and draining sky urine to gravity. Safety measures are in place with bed locked, in the lowest position, HOB elevated to >30 degrees, call light within reach with side rails up x 3. Contact isolation observed. Will continue plan of care.
--- NOTE | 2020-09-26 07:31 | General Progress Note ---
Subjective ROS Limited/Unobtainable: No Allergies: Coded Allergies: No Known Allergies (Unverified , 09/10/20) Objective Last 24 Hour Vital Signs Date Time Temp Pulse Resp B/P (MAP) Pulse Ox O2 Delivery O2 Flow Rate FiO2 09/26/20 07:00 113 23 131/80 (97) 96 09/26/20 06:00 110 22 133/75 (94) 96 09/26/20 05:00 106 24 118/81 (93) 95 09/26/20 04:00 106 09/26/20 04:00 Mechanical Ventilator Mechanical Ventilator 09/26/20 04:00 98.8 110 27 121/82 (95) 96 09/26/20 04:00 40 09/26/20 03:02 103 24 40 09/26/20 03:00 105 30 122/81 (95) 96 09/26/20 02:00 98 27 106/65 (79) 96 09/26/20 01:00 102 28 99/84 (89) 96 09/26/20 00:00 40 09/26/20 00:00 98.9 100 31 119/75 (90) 96 09/26/20 00:00 104 09/26/20 00:00 Mechanical Ventilator Mechanical Ventilator 09/25/20 23:00 103 33 116/78 (91) 95 09/25/20 22:30 103 31 40 09/25/20 22:00 95 28 109/71 (84) 95 09/25/20 21:00 93 26 106/70 (82) 94 09/25/20 20:00 Mechanical Ventilator Mechanical Ventilator 09/25/20 20:00 40 09/25/20 20:00 87 09/25/20 20:00 98.2 94 26 105/67 (80) 94 09/25/20 19:06 86 25 40 09/25/20 19:00 86 20 106/58 (74) 96 09/25/20 18:00 82 13 92/61 (71) 95 09/25/20 17:00 88 13 98/64 (75) 94 09/25/20 16:27 93 22 127/41 100 09/25/20 16:07 95 26 40 09/25/20 16:00 90 09/25/20 16:00 94 31 130/89 (103) 96 09/25/20 16:00 40 09/25/20 16:00 Mechanical Ventilator Mechanical Ventilator 09/25/20 16:00 Mechanical Ventilator Mechanical Ventilator 09/25/20 15:20 104 26 40 09/25/20 15:00 93 25 123/82 (96) 97 09/25/20 14:00 94 21 107/66 (80) 96 09/25/20 13:30 88 23 114/75 (88) 99 09/25/20 13:00 93 22 114/84 (94) 99 09/25/20 12:30 103 34 119/75 (90) 97 09/25/20 12:00 99.0 98 25 128/77 (94) 98 09/25/20 12:00 Mechanical Ventilator Mechanical Ventilator 09/25/20 12:00 89 09/25/20 12:00 40 09/25/20 11:32 103 27 40 09/25/20 11:00 99 24 122/68 (86) 100 09/25/20 10:14 99.9 09/25/20 10:00 96 14 104/67 (79) 99 09/25/20 09:00 Mechanical Ventilator Mechanical Ventilator 09/25/20 09:00 109 22 130/71 (90) 94 09/25/20 08:00 99 09/25/20 08:00 40 09/25/20 08:00 108 17 121/76 (91) 96 09/25/20 08:00 40 Intake and Output 09/25/20 09/26/20 19:00 07:00 Intake Total 1651.666 ml 1670.000 ml Output Total 360 ml 360 ml Balance 1291.666 ml 1310.000 ml IV Total 1171.666 ml 950.000 ml Tube Feeding 420 ml 720 ml Other 60 ml Output Urine Total 360 ml 360 ml Laboratory Tests 09/26/20 04:50: Sodium Level 147H, Potassium Level 4.4, Chloride Level 114H, Carbon Dioxide Level 31, Anion Gap 2L, Blood Urea Nitrogen 42H, Creatinine 0.9, Estimat Glomerular Filtration Rate > 60, Glucose Level 124H, Calcium Level 7.5L Height (Feet): 5 Height (Inches): 7.00 Weight (Pounds): 121 General Appearance: no apparent distress EENT: normal ENT inspection Neck: supple Cardiovascular: normal rate Respiratory/Chest: decreased breath sounds Abdomen: normal bowel sounds, non tender, soft Extremities: non-tender Assessment/Plan Assessment/Plan: Assessment - resp failure - NGT dependent - OBS/Dementia - sepsis - diarrhea, C Diff (-) - Azotemia, resolved - CHF - malnutrition , low albumin - leukocytosis - hypernatremia Recommendations -Vent care / support - abx - supportive care - continue TF - increase free water - abx - will arrange for PEG placement once medically stable Hima Escalante MD Sep 26, 2020 07:31
--- NOTE | 2020-09-26 08:03 | Urology Progress Note ---
Assessment/Plan Assessment/Plan: 1. Gross hematuria. 2. Pyuria and possible UTI. 3. Proteinuria. 4. BPH. 5. Urinary retention. 6. Probable neurogenic bladder. 7. Possible sepsis. monitor clinically maintain andrade hand irrigated and do PRN abx as ordered flomax and proscar cysto electively voiding trial at some point? Subjective Allergies: Coded Allergies: No Known Allergies (Unverified , 09/10/20) Subjective remains on vent Objective Last 24 Hour Vital Signs Date Time Temp Pulse Resp B/P (MAP) Pulse Ox O2 Delivery O2 Flow Rate FiO2 09/26/20 07:00 113 23 131/80 (97) 96 09/26/20 06:00 110 22 133/75 (94) 96 09/26/20 05:00 106 24 118/81 (93) 95 09/26/20 04:00 106 09/26/20 04:00 Mechanical Ventilator Mechanical Ventilator 09/26/20 04:00 98.8 110 27 121/82 (95) 96 09/26/20 04:00 40 09/26/20 03:02 103 24 40 09/26/20 03:00 105 30 122/81 (95) 96 09/26/20 02:00 98 27 106/65 (79) 96 09/26/20 01:00 102 28 99/84 (89) 96 09/26/20 00:00 40 09/26/20 00:00 98.9 100 31 119/75 (90) 96 09/26/20 00:00 104 09/26/20 00:00 Mechanical Ventilator Mechanical Ventilator 09/25/20 23:00 103 33 116/78 (91) 95 09/25/20 22:30 103 31 40 09/25/20 22:00 95 28 109/71 (84) 95 09/25/20 21:00 93 26 106/70 (82) 94 09/25/20 20:00 Mechanical Ventilator Mechanical Ventilator 09/25/20 20:00 40 09/25/20 20:00 87 09/25/20 20:00 98.2 94 26 105/67 (80) 94 09/25/20 19:06 86 25 40 09/25/20 19:00 86 20 106/58 (74) 96 09/25/20 18:00 82 13 92/61 (71) 95 09/25/20 17:00 88 13 98/64 (75) 94 09/25/20 16:27 93 22 127/41 100 09/25/20 16:07 95 26 40 09/25/20 16:00 90 09/25/20 16:00 94 31 130/89 (103) 96 09/25/20 16:00 40 09/25/20 16:00 Mechanical Ventilator Mechanical Ventilator 09/25/20 16:00 Mechanical Ventilator Mechanical Ventilator 09/25/20 15:20 104 26 40 09/25/20 15:00 93 25 123/82 (96) 97 09/25/20 14:00 94 21 107/66 (80) 96 09/25/20 13:30 88 23 114/75 (88) 99 09/25/20 13:00 93 22 114/84 (94) 99 09/25/20 12:30 103 34 119/75 (90) 97 09/25/20 12:00 99.0 98 25 128/77 (94) 98 09/25/20 12:00 Mechanical Ventilator Mechanical Ventilator 09/25/20 12:00 89 09/25/20 12:00 40 09/25/20 11:32 103 27 40 09/25/20 11:00 99 24 122/68 (86) 100 09/25/20 10:14 99.9 09/25/20 10:00 96 14 104/67 (79) 99 09/25/20 09:00 Mechanical Ventilator Mechanical Ventilator 09/25/20 09:00 109 22 130/71 (90) 94 Intake and Output 09/25/20 09/26/20 18:59 06:59 Intake Total 1619.166 ml 1670.000 ml Output Total 360 ml 360 ml Balance 1259.166 ml 1310.000 ml IV Total 1199.166 ml 950.000 ml Tube Feeding 360 ml 720 ml Other 60 ml Output Urine Total 360 ml 360 ml Microbiology Date/Time Source Procedure Growth Status 09/24/20 10:50 Nasopharynx SARS-CoV-2 RdRp Gene Assay - Final Complete 09/18/20 18:30 Stool Clostridium difficile Toxin Assay - Final Complete 09/17/20 12:58 Blood Blood Culture - Final NO GROWTH AFTER 5 DAYS Complete 09/10/20 20:05 Urine,Clean Catch Urine Culture - Final NO GROWTH AFTER 48 HOURS Complete 09/10/20 17:15 Rectum VRE Culture - Final Enterococcus Faecalis - Vre Complete Current Medications Medications (Trade) Dose Ordered Sig/Aleksander Route PRN Reason Start Time Stop Time Status Last Admin Dose Admin Acetaminophen (Tylenol) 650 mg Q4H PRN NG Temp >100.5 09/10/20 23:15 10/10/20 23:14 09/25/20 16:26 Al Hydroxide/Mg Hydroxide (Mylanta) 30 ml Q4H PRN NG Constipation 09/11/20 00:15 10/10/20 23:14 Ascorbic Acid (Vitamin C) 250 mg DAILY NG 09/26/20 09:00 10/18/20 08:59 Dextrose 1,000 ml @ 75 mls/hr [id number] IV 09/24/20 07:30 10/24/20 07:29 09/25/20 22:53 Diphenoxylate HCl/ Atropine (Lomotil) 2.5 mg Q4H PRN ORAL Diarrhea 09/20/20 08:15 10/20/20 08:14 Finasteride (Proscar) 5 mg DAILY ORAL 09/13/20 09:00 12/12/20 08:59 09/25/20 09:35 Lorazepam (Ativan 2mg/ml 1ml) 1 mg Q3H PRN IV For Anxiety/Agitation 09/21/20 12:30 09/28/20 12:29 09/25/20 16:27 Multivitamins (Multivitamins W/ Minerals 15ml Liquid) 15 ml DAILY NG 09/26/20 09:00 10/26/20 08:59 Ondansetron HCl (Zofran) 4 mg Q6H PRN IVP Nausea & Vomiting 09/10/20 23:15 10/10/20 23:14 Pantoprazole (Protonix) 40 mg DAILY IVP 09/11/20 09:00 10/11/20 08:59 09/25/20 09:34 Tamsulosin HCl (Flomax) 0.4 mg BEDTIME ORAL 09/12/20 21:00 10/12/20 20:59 09/25/20 20:12 Valproic Acid (Depakene) 1,000 mg BEDTIME NG 09/16/20 21:00 10/31/20 20:59 09/25/20 20:12 Vancomycin HCl (Vanco pharmacy to dose) 1 ea DAILY PRN MISC Per rx protocol 09/16/20 08:45 10/16/20 08:44 Vancomycin HCl 750 mg/Sodium Chloride 275 ml @ 183.333 mls/hr Q12H IVPB 09/25/20 08:00 09/30/20 07:59 09/25/20 20:12 Zinc Sulfate (Zinc Sulfate) 220 mg DAILY NG 09/26/20 09:00 10/06/20 08:59 Laboratory Tests 09/26/20 04:50: Sodium Level 147H, Potassium Level 4.4, Chloride Level 114H, Carbon Dioxide Level 31, Anion Gap 2L, Blood Urea Nitrogen 42H, Creatinine 0.9, Estimat Glomerular Filtration Rate > 60, Glucose Level 124H, Calcium Level 7.5L Height (Feet): 5 Height (Inches): 7.00 Weight (Pounds): 121 Objective exam stable urine clearing Levi Brunson MD Sep 26, 2020 08:03
[2020-09-26] MEDS: Multivitamins W/Minerals 15 ML UDC NG SCH (08:29)
[2020-09-26] MEDS: Ascorbic Acid 500mg tab NG SCH (08:29)
[2020-09-26] MEDS: Pantoprazole Inj IVP SCH (08:29)
[2020-09-26] MEDS: Vancomycin 750mg/NS 275ml IVPB SCH ×4 (08:29→20:17)
[2020-09-26] MEDS: Zinc Sulfate 220mg NG SCH (08:29)
--- NOTE | 2020-09-26 09:00 | NUR ---
NURSE NOTES: Oral care provided.
--- NOTE | 2020-09-26 09:03 | NUR ---
RD ASSESSMENT & RECOMMENDATIONS SEE CARE ACTIVITY FOR COMPLETE ASSESSMENT DAILY ESTIMATED NEEDS: Needs based on Wound, underweight, critical care/ 55kg 25-33 kcals/kg 7114-9978 total kcals 1.25-2 g protein/kg 69-110 g total protein 25-30 mL/kg 6720-7157 total fluid mLs NUTRITION DIAGNOSIS: * Increased kcal/prot needs R/T wound healing and underweight status as evidenced by pt admitted w/ wounds including DTI 2 coccyx and stage 1 @ lt ischium, pt @ 73% IBW w/ low BMI per guidelines. * Swallowing difficulty R/T respiratory status as evidenced by s/p code blue (09/22), orally intubated, on NGT feeds. CURRENT TF:Jevity 1.2 @ 60ml/hr x 24 hrs ENTERAL NUTRITION RECOMMENDATIONS: Jevity 1.2 @ 60ml/hr x 24 hrs to provide 1440ml, 1728kcal, 80g prot, 1160ml free water * Maintain current TF: meets 100% est kcal/prot needs * HOB over 30 degrees/ water flush per MD ADDITIONAL RECOMMENDATIONS: * Calibrated daily bedscale wt Per SNF: HT=70" * Wound healing: TF rec @ goal will provide 100% RDI Continue Vit C and ZnSO4, add Davidson BID via NGT * Monitor lytes, replete as needed (check f/up phos) * Monitor hydration status: Na and BUN elevated now on added D5 IVF
--- NOTE | 2020-09-26 10:42 | NUR ---
NURSE NOTES:WOUND CARE NOTES:Pt presented with multiple Pressure Injuries. DTPI L ear (L)1cm x (W)0.6cm. Base of wound is10% purpuric,90% surrounding non-blanchable erythema. Unstageable Pressure Injury R ear(L)1.2cm x (W)0.5cm. Stable dry eschar with surrounding non-blanchable erythema. Non-Blanchable erythema without induration Sacrum,R and L Gluteal cheeks. Tx.Plan: Swab R and L Ears with Betadine daily . Apply Moisture Barrier Paste to Sacrum. Cover with Optifoam drsg. Change every 3 days and prn. Apply Cavilon Skin Barrier to both heels. Cover each heel with Optifoam drsg. Change every 7 days and prn. Reposition at least every 2hours or as tolerated. Off-load heels with pillow
--- NOTE | 2020-09-26 11:00 | NUR ---
NURSE NOTES: Tolerating current vent setting. No respiratory distress.
--- NOTE | 2020-09-26 11:00 | NUR ---
NURSE NOTES: Dr. Collins at bedside.
[2020-09-26 11:02] LABS: INR 1.3 (0.9-1.1)
--- NOTE | 2020-09-26 11:43 | Anethesia Preoperative Eval ---
Anesthesia Pre-op PMH/ROS General Date of Evaluation: Sep 26, 2020 Time of Evaluation: 11:41 Anesthesiologist: Kaia ASA Score: ASA 4 Mallampati Score Class I : Soft palate, uvula, fauces, pillars visible Class II: Soft palate, uvula, fauces visible Class III: Soft palate, base of uvula visible Class IV: Only hard plate visible Mallampati Classification: Class III Surgeon: Brenda Diagnosis: Resp Failure; failure to wean Surgical Procedure: Tracheostomy Anesthesia History: none Family History: no anesthesia problems Allergies: Coded Allergies: No Known Allergies (Unverified , 09/10/20) Medications: see eMAR Patient NPO?: Yes NPO Date: Sep 26, 2020 NPO Time: 23:59 Past Medical History Cardiovascular: Reports: HTN, CAD, other - CHF Pulmonary: Reports: other - Resp Failure; Mech ventilated; ; Denies: asthma, COPD, DANA Gastrointestinal/Genitourinary: Reports: CRI; Denies: GERD, ESRD, other Neurologic/Psychiatric: Reports: dementia, CVA; Denies: depression/anxiety, TIA, other Endocrine: Denies: DM, hypothyroidism, steroids, other HEENT: Denies: cataract (L), cataract (R), glaucoma, RESIGHINI (L), RESIGHINI (R), other Hematology/Immune: Reports: anemia Musculoskeletal/Integumentary: Reports: other - Sepsis; Denies: OA, RA, DJD, DDD, edema Other: other - Sepsis PMH Narrative: Respiratory failure with hypoxia Sepsis Leukocytosis Probable new aspiration PNA Recurring shock Diarrhea Dehydration/hypernatremia Likely congestion due to aspiration Acute myocardial ischemia Acute renal failure HC assoc PNA UTI Transaminitis, acute CVA/dementia Sinus bradycardia in past; now with sinus tachycardia. Acute diastolic CHF Remains CRITICAL & GUARDED PSxH Narrative: unknown Anesthesia Pre-op Phys. Exam Physician Exam Last Vital Signs Date Time Temp Pulse Resp B/P (MAP) Pulse Ox O2 Delivery O2 Flow Rate FiO2 09/26/20 11:00 99 35 111/78 (89) 97 09/26/20 10:18 Mechanical Ventilator 40 09/26/20 08:00 99.1 09/21/20 08:00 15.0 15.0 15.0 Constitutional: other - Weakness; Neurologic: other - Obtunded Cardiovascular: RRR Respiratory: CTA, other - Mech Ventilated Airway Exam Mallampati Classification 3 Mallampati Score: Class III MO: limited ROM: limited Dentures: no upper, no lower Anesthesia Pre-op A/P Labs Coagulation Test 09/26/20 10:30 Prothrombin Time 13.8 SEC (9.30-11.50) H Prothromb Time International Ratio 1.3 (0.9-1.1) H Activated Partial Thromboplast Time 29 SEC (23-33) Chemistry Test 09/26/20 04:50 Sodium Level 147 MMOL/L (136-145) H Potassium Level 4.4 MMOL/L (3.5-5.1) Chloride Level 114 MMOL/L (98-107) H Carbon Dioxide Level 31 MMOL/L (21-32) Anion Gap 2 mmol/L (5-15) L Blood Urea Nitrogen 42 mg/dL (7-18) H Creatinine 0.9 MG/DL (0.55-1.30) Estimat Glomerular Filtration Rate > 60 mL/min (>60) Glucose Level 124 MG/DL (74-106) H Calcium Level 7.5 MG/DL (8.5-10.1) L Studies Pre-op Studies: EKG - ST Risk Assessment & Plan Assessment: Covid neg; reassess in AM Plan: Evy Mg CRNA Sep 26, 2020 11:43
[2020-09-26 11:45] LABS: HEMATOCRIT 30.3 % (42.0-52.0); HEMOGLOBIN 9.9 G/DL (14.2-18.0); MEAN CORPUSCULAR VOLUME 87 FL (80-99); PLATELET COUNT 234 K/UL (150-450); RED BLOOD COUNT 3.47 M/UL (4.70-6.10); RED CELL DISTRIBUTION WIDTH 14.1 % (11.6-14.8); WHITE BLOOD COUNT 21.2 K/UL (4.8-10.8)
--- NOTE | 2020-09-26 11:58 | Infectious Diseases Prog Note ---
Assessment/Plan Assessment/Plan antibiotics : vancomycin iv A 1. MRSA Pneumonia COVID-19 test is negative. 2. Dementia. 3. Leukocytosis improving 4. Urinary tract infection 5. + blood cultures with coag neg staph likely contaminated 6. respiratory failure 7 ? allergic reaction to zosyn P 1. continue vancomycin iv 2. will follow up cultures 3. tracheostomy planned Subjective ROS Limited/Unobtainable: Yes Allergies: Coded Allergies: No Known Allergies (Unverified , 09/10/20) Objective Last 24 Hour Vital Signs Date Time Temp Pulse Resp B/P (MAP) Pulse Ox O2 Delivery O2 Flow Rate FiO2 09/26/20 11:00 99 35 111/78 (89) 97 09/26/20 10:18 108 26 96 Mechanical Ventilator 40 09/26/20 10:00 110 34 131/79 (96) 96 09/26/20 09:00 115 30 125/75 (92) 96 09/26/20 08:00 40 09/26/20 08:00 Mechanical Ventilator Mechanical Ventilator 09/26/20 08:00 99.1 101 17 121/85 (97) 97 09/26/20 07:57 102 09/26/20 07:37 109 26 40 09/26/20 07:00 113 23 131/80 (97) 96 09/26/20 06:00 110 22 133/75 (94) 96 09/26/20 05:00 106 24 118/81 (93) 95 09/26/20 04:00 106 09/26/20 04:00 Mechanical Ventilator Mechanical Ventilator 09/26/20 04:00 98.8 110 27 121/82 (95) 96 09/26/20 04:00 40 09/26/20 03:02 103 24 40 09/26/20 03:00 105 30 122/81 (95) 96 09/26/20 02:00 98 27 106/65 (79) 96 09/26/20 01:00 102 28 99/84 (89) 96 09/26/20 00:00 40 09/26/20 00:00 98.9 100 31 119/75 (90) 96 09/26/20 00:00 104 09/26/20 00:00 Mechanical Ventilator Mechanical Ventilator 09/25/20 23:00 103 33 116/78 (91) 95 09/25/20 22:30 103 31 40 09/25/20 22:00 95 28 109/71 (84) 95 09/25/20 21:00 93 26 106/70 (82) 94 09/25/20 20:00 Mechanical Ventilator Mechanical Ventilator 09/25/20 20:00 40 09/25/20 20:00 87 09/25/20 20:00 98.2 94 26 105/67 (80) 94 09/25/20 19:06 86 25 40 09/25/20 19:00 86 20 106/58 (74) 96 09/25/20 18:00 82 13 92/61 (71) 95 09/25/20 17:00 88 13 98/64 (75) 94 09/25/20 16:27 93 22 127/41 100 09/25/20 16:07 95 26 40 09/25/20 16:00 90 09/25/20 16:00 94 31 130/89 (103) 96 09/25/20 16:00 40 09/25/20 16:00 Mechanical Ventilator Mechanical Ventilator 09/25/20 16:00 Mechanical Ventilator Mechanical Ventilator 09/25/20 15:20 104 26 40 09/25/20 15:00 93 25 123/82 (96) 97 09/25/20 14:00 94 21 107/66 (80) 96 09/25/20 13:30 88 23 114/75 (88) 99 09/25/20 13:00 93 22 114/84 (94) 99 09/25/20 12:30 103 34 119/75 (90) 97 09/25/20 12:00 99.0 98 25 128/77 (94) 98 09/25/20 12:00 Mechanical Ventilator Mechanical Ventilator 09/25/20 12:00 89 09/25/20 12:00 40 Height (Feet): 5 Height (Inches): 7.00 Weight (Pounds): 121 HEENT: other - intubated Respiratory/Chest: lungs clear Cardiovascular: normal rate, regular rhythm, no gallop/murmur Abdomen: soft, non tender Extremities: other - + edema Skin: rash - erythematous rash on legs, chest Microbiology Date/Time Source Procedure Growth Status 09/24/20 10:50 Nasopharynx SARS-CoV-2 RdRp Gene Assay - Final Complete Laboratory Tests Test 09/26/20 04:50 09/26/20 08:20 09/26/20 10:30 White Blood Count 21.2 K/UL (4.8-10.8) H Red Blood Count 3.47 M/UL (4.70-6.10) L Hemoglobin 9.9 G/DL (14.2-18.0) L Hematocrit 30.3 % (42.0-52.0) L Mean Corpuscular Volume 87 FL (80-99) Mean Corpuscular Hemoglobin 28.5 PG (27.0-31.0) Mean Corpuscular Hemoglobin Concent 32.6 G/DL (32.0-36.0) Red Cell Distribution Width 14.1 % (11.6-14.8) Platelet Count 234 K/UL (150-450) Mean Platelet Volume 6.5 FL (6.5-10.1) Neutrophils (%) (Auto) % (45.0-75.0) Lymphocytes (%) (Auto) % (20.0-45.0) Monocytes (%) (Auto) % (1.0-10.0) Eosinophils (%) (Auto) % (0.0-3.0) Basophils (%) (Auto) % (0.0-2.0) Neutrophils % (Manual) Pending Lymphocytes % (Manual) Pending Platelet Estimate Pending Platelet Morphology Pending Sodium Level 147 MMOL/L (136-145) H Potassium Level 4.4 MMOL/L (3.5-5.1) Chloride Level 114 MMOL/L (98-107) H Carbon Dioxide Level 31 MMOL/L (21-32) Anion Gap 2 mmol/L (5-15) L Blood Urea Nitrogen 42 mg/dL (7-18) H Creatinine 0.9 MG/DL (0.55-1.30) Estimat Glomerular Filtration Rate > 60 mL/min (>60) Glucose Level 124 MG/DL (74-106) H Calcium Level 7.5 MG/DL (8.5-10.1) L Arterial Blood pH 7.399 (7.350-7.450) Arterial Blood Partial Pressure CO2 51.8 mmHg (35.0-45.0) H Arterial Blood Partial Pressure O2 77.8 mmHg (75.0-100.0) Arterial Blood HCO3 31.3 mmol/L (22.0-26.0) H Arterial Blood Oxygen Saturation 96.0 % (95-100) Arterial Blood Base Excess 5.5 (-2-2) H Freddy Test Positive Prothrombin Time 13.8 SEC (9.30-11.50) H Prothromb Time International Ratio 1.3 (0.9-1.1) H Activated Partial Thromboplast Time 29 SEC (23-33) Current Medications Medications (Trade) Dose Ordered Sig/Aleksander Route PRN Reason Start Time Stop Time Status Last Admin Dose Admin Acetaminophen (Tylenol) 650 mg Q4H PRN NG Temp >100.5 09/10/20 23:15 10/10/20 23:14 09/25/20 16:26 Al Hydroxide/Mg Hydroxide (Mylanta) 30 ml Q4H PRN NG Constipation 09/11/20 00:15 10/10/20 23:14 Ascorbic Acid (Vitamin C) 250 mg DAILY NG 09/26/20 09:00 10/18/20 08:59 09/26/20 08:29 Dextrose 1,000 ml @ 75 mls/hr [id number] IV 09/24/20 07:30 10/24/20 07:29 09/25/20 22:53 Diphenoxylate HCl/ Atropine (Lomotil) 2.5 mg Q4H PRN ORAL Diarrhea 09/20/20 08:15 10/20/20 08:14 Finasteride (Proscar) 5 mg DAILY ORAL 09/13/20 09:00 12/12/20 08:59 09/26/20 08:29 Lorazepam (Ativan 2mg/ml 1ml) 1 mg Q3H PRN IV For Anxiety/Agitation 09/21/20 12:30 09/28/20 12:29 09/25/20 16:27 Multivitamins (Multivitamins W/ Minerals 15ml Liquid) 15 ml DAILY NG 09/26/20 09:00 10/26/20 08:59 09/26/20 08:29 Ondansetron HCl (Zofran) 4 mg Q6H PRN IVP Nausea & Vomiting 09/10/20 23:15 10/10/20 23:14 Pantoprazole (Protonix) 40 mg DAILY IVP 09/11/20 09:00 10/11/20 08:59 09/26/20 08:29 Tamsulosin HCl (Flomax) 0.4 mg BEDTIME ORAL 09/12/20 21:00 10/12/20 20:59 09/25/20 20:12 Valproic Acid (Depakene) 1,000 mg BEDTIME NG 09/16/20 21:00 10/31/20 20:59 09/25/20 20:12 Vancomycin HCl (Vanco pharmacy to dose) 1 ea DAILY PRN MISC Per rx protocol 09/16/20 08:45 10/16/20 08:44 Vancomycin HCl 750 mg/Sodium Chloride 275 ml @ 183.333 mls/hr Q12H IVPB 09/25/20 08:00 09/30/20 07:59 09/26/20 08:29 Zinc Sulfate (Zinc Sulfate) 220 mg DAILY NG 09/26/20 09:00 10/06/20 08:59 09/26/20 08:29 Martha Collins MD Sep 26, 2020 11:58
--- NOTE | 2020-09-26 12:59 | General Progress Note ---
Subjective ROS Limited/Unobtainable: Yes Allergies: Coded Allergies: No Known Allergies (Unverified , 09/10/20) Subjective on vent very labile and obtunded oxygenation noted ICU care reviewed all consultants noted Objective Last 24 Hour Vital Signs Date Time Temp Pulse Resp B/P (MAP) Pulse Ox O2 Delivery O2 Flow Rate FiO2 09/26/20 11:00 99 35 111/78 (89) 97 09/26/20 10:18 108 26 96 Mechanical Ventilator 40 09/26/20 10:00 110 34 131/79 (96) 96 09/26/20 09:00 115 30 125/75 (92) 96 09/26/20 08:00 40 09/26/20 08:00 Mechanical Ventilator Mechanical Ventilator 09/26/20 08:00 99.1 101 17 121/85 (97) 97 09/26/20 07:57 102 09/26/20 07:37 109 26 40 09/26/20 07:00 113 23 131/80 (97) 96 09/26/20 06:00 110 22 133/75 (94) 96 09/26/20 05:00 106 24 118/81 (93) 95 09/26/20 04:00 106 09/26/20 04:00 Mechanical Ventilator Mechanical Ventilator 09/26/20 04:00 98.8 110 27 121/82 (95) 96 09/26/20 04:00 40 09/26/20 03:02 103 24 40 09/26/20 03:00 105 30 122/81 (95) 96 09/26/20 02:00 98 27 106/65 (79) 96 09/26/20 01:00 102 28 99/84 (89) 96 09/26/20 00:00 40 09/26/20 00:00 98.9 100 31 119/75 (90) 96 09/26/20 00:00 104 09/26/20 00:00 Mechanical Ventilator Mechanical Ventilator 09/25/20 23:00 103 33 116/78 (91) 95 09/25/20 22:30 103 31 40 09/25/20 22:00 95 28 109/71 (84) 95 09/25/20 21:00 93 26 106/70 (82) 94 09/25/20 20:00 Mechanical Ventilator Mechanical Ventilator 09/25/20 20:00 40 09/25/20 20:00 87 09/25/20 20:00 98.2 94 26 105/67 (80) 94 09/25/20 19:06 86 25 40 09/25/20 19:00 86 20 106/58 (74) 96 09/25/20 18:00 82 13 92/61 (71) 95 09/25/20 17:00 88 13 98/64 (75) 94 09/25/20 16:27 93 22 127/41 100 09/25/20 16:07 95 26 40 09/25/20 16:00 90 09/25/20 16:00 94 31 130/89 (103) 96 09/25/20 16:00 40 09/25/20 16:00 Mechanical Ventilator Mechanical Ventilator 09/25/20 16:00 Mechanical Ventilator Mechanical Ventilator 09/25/20 15:20 104 26 40 09/25/20 15:00 93 25 123/82 (96) 97 09/25/20 14:00 94 21 107/66 (80) 96 09/25/20 13:30 88 23 114/75 (88) 99 09/25/20 13:00 93 22 114/84 (94) 99 Intake and Output 09/25/20 09/26/20 19:00 07:00 Intake Total 1651.666 ml 1670.000 ml Output Total 360 ml 360 ml Balance 1291.666 ml 1310.000 ml IV Total 1171.666 ml 950.000 ml Tube Feeding 420 ml 720 ml Other 60 ml Output Urine Total 360 ml 360 ml Laboratory Tests 09/26/20 04:50: White Blood Count 21.2H, Red Blood Count 3.47L, Hemoglobin 9.9L, Hematocrit 30.3L, Mean Corpuscular Volume 87, Mean Corpuscular Hemoglobin 28.5, Mean Corpuscular Hemoglobin Concent 32.6, Red Cell Distribution Width 14.1, Platelet Count 234, Mean Platelet Volume 6.5, Neutrophils (%) (Auto) , Lymphocytes (%) (Auto) , Monocytes (%) (Auto) , Eosinophils (%) (Auto) , Basophils (%) (Auto) , Differential Total Cells Counted 100, Neutrophils % (Manual) 86H, Lymphocytes % (Manual) 7L, Monocytes % (Manual) 5, Eosinophils % (Manual) 0, Basophils % (Manual) 0, Myelocytes % 2H, Band Neutrophils 0, Platelet Estimate Adequate, Platelet Morphology Normal, Anisocytosis 1+, Sodium Level 147H, Potassium Level 4.4, Chloride Level 114H, Carbon Dioxide Level 31, Anion Gap 2L, Blood Urea Nitrogen 42H, Creatinine 0.9, Estimat Glomerular Filtration Rate > 60, Glucose Level 124H, Calcium Level 7.5L 09/26/20 08:20: Arterial Blood pH 7.399, Arterial Blood Partial Pressure CO2 51.8H, Arterial Blood Partial Pressure O2 77.8, Arterial Blood HCO3 31.3H, Arterial Blood Oxygen Saturation 96.0, Arterial Blood Base Excess 5.5H, Freddy Test Positive 09/26/20 10:30: Prothrombin Time 13.8H, Prothromb Time International Ratio 1.3H, Activated Partial Thromboplast Time 29 Height (Feet): 5 Height (Inches): 7.00 Weight (Pounds): 121 Objective WDWN chronically ill ETT in place feeding tube in place reduced breath sounds bilaterally with scattered rhonchi [id number] tachy without MRG NABS nontender no CCE nonfocal poor LOC Assessment/Plan Assessment/Plan: IMPRESSION: 1. Acute renal failure. 2. Hypernatremia. 3. Leukocytosis. 4. Possible sepsis. 5. Hypotension. 6. Dementia. 7. Acute on chronic encephalopathy. 8. bcx staph Epi 9. MRSA colonized 10. acute hypoxemic respiratory failure 11. atelectasis/collapse 12. leukocytosis PLAN taper fio2 as able taper PEEP as able ID noted; monitor wbc- monitor follow up on antibiotics monitor renal parameters monitor oxygen needs vent support full for now off load correct sodium position change monitor imaging d/w consultants and nursing remains critical CANNOT OPTIMIZE, NEEDS TRACH/AIRWAY/GT for chronic care management discussed with consultants and CM no family found await trach/peg and placement medications/laboratory data/nursing notes/ICU care reviewed in detail note reviewed and edited care discussed with RN and RT ICU time spent >40 minutes Patel Villasenor MD Sep 26, 2020 12:59
--- NOTE | 2020-09-26 14:00 | NUR ---
NURSE NOTES: Bed bath provided.
--- NOTE | 2020-09-26 15:00 | NUR ---
NURSE NOTES: 1 Soft large bowel movement noted. Kept clean and dry.
--- NOTE | 2020-09-26 17:01 | General Progress Note ---
Subjective ROS Limited/Unobtainable: No Constitutional: Reports: malaise, weakness HEENT: Reports: no symptoms Cardiovascular: Reports: no symptoms Respiratory: Reports: cough Gastrointestinal/Abdominal: Reports: no symptoms Genitourinary: Reports: no symptoms Neurologic/Psychiatric: Reports: no symptoms Endocrine: Reports: no symptoms Hematologic/Lymphatic: Reports: no symptoms Allergies: Coded Allergies: No Known Allergies (Unverified , 09/10/20) All Systems: reviewed and negative except above Subjective improved o2 sats. remains orally intubated. +thick green/yellow secretions. no fevers. confused. on ngt feeds. on iv abx. d/w night rn. no new concerns Objective Last 24 Hour Vital Signs Date Time Temp Pulse Resp B/P (MAP) Pulse Ox O2 Delivery O2 Flow Rate FiO2 09/26/20 16:00 40 09/26/20 16:00 106 09/26/20 16:00 98.0 102 23 136/84 (101) 96 09/26/20 16:00 Mechanical Ventilator Mechanical Ventilator 09/26/20 15:00 100 27 119/75 (90) 97 09/26/20 14:00 105 29 127/77 (94) 97 09/26/20 13:00 100 28 123/78 (93) 96 09/26/20 12:00 40 09/26/20 12:00 Mechanical Ventilator Mechanical Ventilator 09/26/20 12:00 98.9 104 36 121/77 (92) 96 09/26/20 11:49 106 09/26/20 11:00 99 35 111/78 (89) 97 09/26/20 10:18 108 26 96 Mechanical Ventilator 40 09/26/20 10:00 110 34 131/79 (96) 96 09/26/20 09:00 115 30 125/75 (92) 96 09/26/20 08:00 40 09/26/20 08:00 Mechanical Ventilator Mechanical Ventilator 09/26/20 08:00 99.1 101 17 121/85 (97) 97 09/26/20 07:57 102 09/26/20 07:37 109 26 40 09/26/20 07:00 113 23 131/80 (97) 96 09/26/20 06:00 110 22 133/75 (94) 96 09/26/20 05:00 106 24 118/81 (93) 95 09/26/20 04:00 106 09/26/20 04:00 Mechanical Ventilator Mechanical Ventilator 09/26/20 04:00 98.8 110 27 121/82 (95) 96 09/26/20 04:00 40 09/26/20 03:02 103 24 40 09/26/20 03:00 105 30 122/81 (95) 96 09/26/20 02:00 98 27 106/65 (79) 96 09/26/20 01:00 102 28 99/84 (89) 96 09/26/20 00:00 40 09/26/20 00:00 98.9 100 31 119/75 (90) 96 09/26/20 00:00 104 09/26/20 00:00 Mechanical Ventilator Mechanical Ventilator 09/25/20 23:00 103 33 116/78 (91) 95 09/25/20 22:30 103 31 40 09/25/20 22:00 95 28 109/71 (84) 95 09/25/20 21:00 93 26 106/70 (82) 94 09/25/20 20:00 Mechanical Ventilator Mechanical Ventilator 09/25/20 20:00 40 09/25/20 20:00 87 09/25/20 20:00 98.2 94 26 105/67 (80) 94 09/25/20 19:06 86 25 40 09/25/20 19:00 86 20 106/58 (74) 96 09/25/20 18:00 82 13 92/61 (71) 95 Intake and Output 09/25/20 09/26/20 19:00 07:00 Intake Total 1651.666 ml 1670.000 ml Output Total 360 ml 360 ml Balance 1291.666 ml 1310.000 ml IV Total 1171.666 ml 950.000 ml Tube Feeding 420 ml 720 ml Other 60 ml Output Urine Total 360 ml 360 ml Laboratory Tests 09/26/20 04:50: White Blood Count 21.2H, Red Blood Count 3.47L, Hemoglobin 9.9L, Hematocrit 30.3L, Mean Corpuscular Volume 87, Mean Corpuscular Hemoglobin 28.5, Mean Corpuscular Hemoglobin Concent 32.6, Red Cell Distribution Width 14.1, Platelet Count 234, Mean Platelet Volume 6.5, Neutrophils (%) (Auto) , Lymphocytes (%) (Auto) , Monocytes (%) (Auto) , Eosinophils (%) (Auto) , Basophils (%) (Auto) , Differential Total Cells Counted 100, Neutrophils % (Manual) 86H, Lymphocytes % (Manual) 7L, Monocytes % (Manual) 5, Eosinophils % (Manual) 0, Basophils % (Ma nual) 0, Myelocytes % 2H, Band Neutrophils 0, Platelet Estimate Adequate, Platelet Morphology Normal, Anisocytosis 1+, Sodium Level 147H, Potassium Level 4.4, Chloride Level 114H, Carbon Dioxide Level 31, Anion Gap 2L, Blood Urea Nitrogen 42H, Creatinine 0.9, Estimat Glomerular Filtration Rate > 60, Glucose Level 124H, Calcium Level 7.5L 09/26/20 08:20: Arterial Blood pH 7.399, Arterial Blood Partial Pressure CO2 51.8H, Arterial Blood Partial Pressure O2 77.8, Arterial Blood HCO3 31.3H, Arterial Blood Oxygen Saturation 96.0, Arterial Blood Base Excess 5.5H, Freddy Test Positive 09/26/20 10:30: Prothrombin Time 13.8H, Prothromb Time International Ratio 1.3H, Activated Partial Thromboplast Time 29 Height (Feet): 5 Height (Inches): 7.00 Weight (Pounds): 121 Objective General Appearance: WD/WN, confused. orally intubated EENT: normal ENT inspection Neck: normal alignment, supple Cardiovascular: normal rate, regular rhythm Respiratory/Chest: rhonchi - bilaterally. diminished BS Abdomen: normal bowel sounds, non tender, soft, no organomegaly Edema: no edema noted Leg (L), no edema noted Leg (R) Neurologic: frame bender II-XII grossly normal, responsive, disoriented Lymphatic: normal anterior cervical (L), normal anterior cervical (R), normal posterior cervical (L), normal posterior cervical (R) Assessment/Plan Problem List: (1) PNA (pneumonia) ICD Codes: J18.9 - Pneumonia, unspecified organism SNOMED: 315146835 (2) UTI (urinary tract infection) ICD Codes: N39.0 - Urinary tract infection, site not specified SNOMED: 62956542 (3) Fever ICD Codes: R50.9 - Fever, unspecified SNOMED: 530968786 Qualifiers: Qualified Codes: R50.9 - Fever, unspecified (4) Decubitus skin ulcer ICD Codes: L89.90 - Pressure ulcer of unspecified site, unspecified stage SNOMED: 655972096 (5) Malnutrition ICD Codes: E46 - Unspecified protein-calorie malnutrition SNOMED: 65418444 (6) Severe sepsis ICD Codes: A41.9 - Sepsis, unspecified organism; R65.20 - Severe sepsis without septic shock SNOMED: 10033426 (7) Hematuria ICD Codes: R31.9 - Hematuria, unspecified SNOMED: 00900136 Assessment/Plan: cont iv abx per id resp rx and suctioning wean vent as able monitor cxr tube feeds monitor residuals possible gt and trach later this week prn ivf as needed monitor labs skin care turn q2 critical and guarded poor prognosis Jason Layne MD Sep 26, 2020 17:01
--- NOTE | 2020-09-26 18:08 | Surgery Progress Note ---
Surgery Progress Note Subjective Additional Comments plan trach tomorrow discussed with team Objective Last 24 Hour Vital Signs Date Time Temp Pulse Resp B/P (MAP) Pulse Ox O2 Delivery O2 Flow Rate FiO2 09/26/20 17:00 111 27 112/67 (82) 99 09/26/20 16:00 40 09/26/20 16:00 106 09/26/20 16:00 98.0 102 23 136/84 (101) 96 09/26/20 16:00 Mechanical Ventilator Mechanical Ventilator 09/26/20 15:38 112 23 40 09/26/20 15:00 100 27 119/75 (90) 97 09/26/20 14:00 105 29 127/77 (94) 97 09/26/20 13:00 100 28 123/78 (93) 96 09/26/20 12:00 40 09/26/20 12:00 Mechanical Ventilator Mechanical Ventilator 09/26/20 12:00 98.9 104 36 121/77 (92) 96 09/26/20 11:49 106 09/26/20 11:35 106 25 40 09/26/20 11:00 99 35 111/78 (89) 97 09/26/20 10:18 108 26 96 Mechanical Ventilator 40 09/26/20 10:00 110 34 131/79 (96) 96 09/26/20 09:00 115 30 125/75 (92) 96 09/26/20 08:00 40 09/26/20 08:00 Mechanical Ventilator Mechanical Ventilator 09/26/20 08:00 99.1 101 17 121/85 (97) 97 09/26/20 07:57 102 09/26/20 07:37 109 26 40 09/26/20 07:00 113 23 131/80 (97) 96 09/26/20 06:00 110 22 133/75 (94) 96 09/26/20 05:00 106 24 118/81 (93) 95 09/26/20 04:00 106 09/26/20 04:00 Mechanical Ventilator Mechanical Ventilator 09/26/20 04:00 98.8 110 27 121/82 (95) 96 09/26/20 04:00 40 09/26/20 03:02 103 24 40 09/26/20 03:00 105 30 122/81 (95) 96 09/26/20 02:00 98 27 106/65 (79) 96 09/26/20 01:00 102 28 99/84 (89) 96 09/26/20 00:00 40 09/26/20 00:00 98.9 100 31 119/75 (90) 96 09/26/20 00:00 104 09/26/20 00:00 Mechanical Ventilator Mechanical Ventilator 09/25/20 23:00 103 33 116/78 (91) 95 09/25/20 22:30 103 31 40 09/25/20 22:00 95 28 109/71 (84) 95 09/25/20 21:00 93 26 106/70 (82) 94 09/25/20 20:00 Mechanical Ventilator Mechanical Ventilator 09/25/20 20:00 40 09/25/20 20:00 87 09/25/20 20:00 98.2 94 26 105/67 (80) 94 09/25/20 19:06 86 25 40 09/25/20 19:00 86 20 106/58 (74) 96 I&O Intake and Output 09/25/20 09/26/20 18:59 06:59 Intake Total 1619.166 ml 1670.000 ml Output Total 360 ml 360 ml Balance 1259.166 ml 1310.000 ml IV Total 1199.166 ml 950.000 ml Tube Feeding 360 ml 720 ml Other 60 ml Output Urine Total 360 ml 360 ml Dressing: other Wound: other Cardiovascular: RSR Respiratory: decreased breath sounds Abdomen: soft, present bowel sounds Extremities: no cyanosis Laboratory Tests Test 09/26/20 04:50 09/26/20 08:20 09/26/20 10:30 White Blood Count 21.2 K/UL (4.8-10.8) H Red Blood Count 3.47 M/UL (4.70-6.10) L Hemoglobin 9.9 G/DL (14.2-18.0) L Hematocrit 30.3 % (42.0-52.0) L Mean Corpuscular Volume 87 FL (80-99) Mean Corpuscular Hemoglobin 28.5 PG (27.0-31.0) Mean Corpuscular Hemoglobin Concent 32.6 G/DL (32.0-36.0) Red Cell Distribution Width 14.1 % (11.6-14.8) Platelet Count 234 K/UL (150-450) Mean Platelet Volume 6.5 FL (6.5-10.1) Neutrophils (%) (Auto) % (45.0-75.0) Lymphocytes (%) (Auto) % (20.0-45.0) Monocytes (%) (Auto) % (1.0-10.0) Eosinophils (%) (Auto) % (0.0-3.0) Basophils (%) (Auto) % (0.0-2.0) Differential Total Cells Counted 100 Neutrophils % (Manual) 86 % (45-75) H Lymphocytes % (Manual) 7 % (20-45) L Monocytes % (Manual) 5 % (1-10) Eosinophils % (Manual) 0 % (0-3) Basophils % (Manual) 0 % (0-2) Myelocytes % 2 % (0-0) H Band Neutrophils 0 % (0-8) Platelet Estimate Adequate Platelet Morphology Normal Anisocytosis 1+ Sodium Level 147 MMOL/L (136-145) H Potassium Level 4.4 MMOL/L (3.5-5.1) Chloride Level 114 MMOL/L (98-107) H Carbon Dioxide Level 31 MMOL/L (21-32) Anion Gap 2 mmol/L (5-15) L Blood Urea Nitrogen 42 mg/dL (7-18) H Creatinine 0.9 MG/DL (0.55-1.30) Estimat Glomerular Filtration Rate > 60 mL/min (>60) Glucose Level 124 MG/DL (74-106) H Calcium Level 7.5 MG/DL (8.5-10.1) L Arterial Blood pH 7.399 (7.350-7.450) Arterial Blood Partial Pressure CO2 51.8 mmHg (35.0-45.0) H Arterial Blood Partial Pressure O2 77.8 mmHg (75.0-100.0) Arterial Blood HCO3 31.3 mmol/L (22.0-26.0) H Arterial Blood Oxygen Saturation 96.0 % (95-100) Arterial Blood Base Excess 5.5 (-2-2) H Freddy Test Positive Prothrombin Time 13.8 SEC (9.30-11.50) H Prothromb Time International Ratio 1.3 (0.9-1.1) H Activated Partial Thromboplast Time 29 SEC (23-33) Plan Problems: (1) Fever Assessment & Plan: maybe developing pneumonia cont abx pulm input thank you (2) Decubitus skin ulcer Assessment & Plan: Patient identified on admission to have multiple scabs on the left arm. mild open scabs with eschar. no drainage. no significant cellulitis. bruising no bilateral extremities noted. no signs of abuse. likely from agitation Sacral coccygeal noted to have a DTI 4.3X2.5CM. which is dark purple . RECOMMEND-CLEAN WITH SALINE, PAT DRY AND APPLY CALAZINE. COVER WITH OPTIFOAM DRESSING. REPLACE EVERY 3 DAYS OR NEEDED LEFT ISCHIUM- STAGE I PRESSURE ULCER MEASURES 4.5X1.7CM. NON-BLANCHABLE ERYTHEMA. RECOMMEND- APPLY CALAZINE AND COVER WITH OPTIFOAM DRESSING. REPLACE EVERY 7 DA YS. 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 Roman is a 70 year old male BIBA to ED of [facility] on 09/10/2020 around 14:00 due to fever. He was found to be hypotensive 91/55 (67), Temp: 100.0, leukocytosis 20.8k and subsequently transferred to ICU for septic shock. The blood culture is reportedly positive for gram positive cocci. NG tube was placed, KUB confirmed the placement to day. Pt is clinically stable with leukocytosis 20.1, improved BUN and creatine, stable hemodynamic without vasopressor. Findings: Mr. Roman is disoriented. He does ot follow commands at this time. Oral cavity is noted to be dried blood concretion likely from NG trauma. No active bleeding site is seen. Due to his level f alertness, already NG tube is in placed, PO trial was not done at this time. Transferred out ICU last night. He is non on tele. Issues: multiple wounds, s.p balaji/nasal/pharyngeal bleeding with blood culture Gram positive cocci leukocytosis trending down from 20k-20k-16k BUN/Creatine trending down from 93/1.9-79/1.3-54/1.1 Temp: 98.1~98.7, Pulse: 62~72, BP: 105/67~120/48, SPO2 98~100% on 2 liter S: Oral cavity is better condition comparison to yesterday. The mucosa is severely erythema without active bleeding. Limited level of alertness for direct therapy. NG in placed O: 1. Laryngeal palpation to trigger spontaneous cough and swallow: Pt triggered cough with laryngeal palpation. Approximately 5~10 seconds after coughing, he triggered swallow. based on this observation, he presents with copious secretion in pharynx and larynx. He continued to have poor secretion management at laryngeal level at this time. NO PO trial was given due to poor secretion at the level of air way with low level of alertness. A: 1. Probable aspiration of his own secretion with poor ability to cough and swallow 2. Dysphagia P: 1. NPO for now 2. Observe his secretion, and level of alertness for PO readiness. DAILY ESTIMATED NEEDS: Needs based on Wound, underweight/ 55kg 30-35 kcals/kg 0897-7173 total kcals 1.25-2 g protein/kg 69-110 g total protein 25-30 mL/kg 4744-6937 total fluid mLs NUTRITION DIAGNOSIS: Increased kcal/prot needs R/T wound healing and underweight status as evidenced by pt admitted w/ wounds including DTI 2 coccyx and stage 1 @ lt ischium, pt @ 73% IBW w/ low BMI per guidelines, s/p NGT insertion, on NGT feeds. CURRENT TF:Jevity 1.2 @ 50ml/hr x 24 hrs ENTERAL NUTRITION RECOMMENDATIONS: Jevity 1.2 @ 60ml/hr x 24 hrs to provide 1440ml, 1728kcal, 80g prot, 1160ml free water * As medically appropriate, increase goal rate to 60ml/hr x 24 hrs to meet 100% est kcal/prot needs * HOB over 30 degrees/ without IVF, H2O flush of 100ml q 8hrs ADDITIONAL RECOMMENDATIONS: * Calibrated daily bedscale wt Per SNF: HT=70" * Wound healing: TF rec @ goal will provide 100% RDI add Vit C 250mg QD, ZnSO4 220mg QD x 10days, Davidson BID via NGT * Monitor BGs, need for NISS w/ TF * Monitor lytes, replete as needed- high risk for refeeding syndrome -> check f/up phos and mag (4) Severe sepsis Assessment & Plan: will likely need trach and peg. patient needs protected airway and nutrition full code no family and unable to consent medically necessary. will plan soon (5) Open upper arm wound (6) Hematuria Assessment & Plan: as per urology Aubrey Gutierrez Sep 26, 2020 18:08
--- NOTE | 2020-09-26 19:26 | NUR ---
NURSE HAND-OFF REPORT: Latest Vital Signs: Temperature 98.0 , Pulse 101 , B/P 105 /68 , Respiratory Rate 21 , O2 SAT 97 , Mechanical Ventilator, O2 Flow Rate 15.0 . Vital Sign Comment: EKG Rhythm: Sinus Tachycardia Rhythm change?: N Latest Schultz Fall Score: 70 Fall Risk: High Risk Safety Measures: Call light Within Reach, Bed Alarm Zone 1, Side Rails Side Rails x3, Bed position Low and Locked. Fall Precautions: Yellow Socks Door Sign Patient Fall Education Report given to Jaylen Joshi RN.
--- NOTE | 2020-09-26 19:27 | NUR ---
NURSE NOTES: pt report received from Tricia. ULLOA. pt is non verbal at the moment, opens eyes to tactile stimuli, then quickly falls back asleep. pt is showing sinus rhythm on the rn cardiac, no acute symptoms of cardiac distress. pt is oral tube vented, sating 99% O2, no symptoms of resp distress noted. pt bed is low, locked, armed, call light within reach, bed rails up times 3. will follow plan of care.
[2020-09-26] MEDS: Tamsulosin 0.4mg cap ORAL SCH (20:17)
[2020-09-26] MEDS: Valproic Acid 250mg/5ml Liquid NG SCH (20:17)
--- NOTE | 2020-09-26 21:30 | NUR ---
NURSE NOTES: pt repositioned in bed. vital signs stable.
--- NOTE | 2020-09-26 23:20 | NUR ---
NURSE NOTES: assessed pt. vital signs stable. pt repositioned.
[2020-09-27] VITALS (23 sets, daily range): BP systolic 91–129; BP diastolic 54–82
--- NOTE | 2020-09-27 01:02 | Cardiology Progress Note ---
Subjective DATE OF SERVICE: Sep 26, 2020 Condition remains critical; prognosis guarded. Remains intubated and on mechanical ventilation. BP less tenuous; now mostly controlled. Monitor: sinus/ sinus tachycardia. ABG: (09/26/20) 7.40/52/78 Objective Last 24 Hour Vital Signs Date Time Temp Pulse Resp B/P (MAP) Pulse Ox O2 Delivery O2 Flow Rate FiO2 09/27/20 00:00 Mechanical Ventilator Mechanical Ventilator 09/26/20 23:00 104 32 109/69 (82) 97 09/26/20 22:32 104 33 40 09/26/20 22:00 104 33 116/69 (85) 97 09/26/20 21:00 100 29 96/59 (71) 97 09/26/20 20:00 Mechanical Ventilator Mechanical Ventilator 09/26/20 20:00 40 09/26/20 20:00 98.7 105 25 107/70 (82) 97 09/26/20 19:00 101 21 105/68 (80) 97 09/26/20 18:57 112 31 40 09/26/20 18:00 97 14 111/74 (86) 97 09/26/20 17:00 111 27 112/67 (82) 99 09/26/20 16:00 40 09/26/20 16:00 106 09/26/20 16:00 98.0 102 23 136/84 (101) 96 09/26/20 16:00 Mechanical Ventilator Mechanical Ventilator 09/26/20 15:38 112 23 40 09/26/20 15:00 100 27 119/75 (90) 97 09/26/20 14:00 105 29 127/77 (94) 97 09/26/20 13:00 100 28 123/78 (93) 96 09/26/20 12:00 40 09/26/20 12:00 Mechanical Ventilator Mechanical Ventilator 09/26/20 12:00 98.9 104 36 121/77 (92) 96 09/26/20 11:49 106 09/26/20 11:35 106 25 40 09/26/20 11:00 99 35 111/78 (89) 97 09/26/20 10:18 108 26 96 Mechanical Ventilator 40 09/26/20 10:00 110 34 131/79 (96) 96 09/26/20 09:00 115 30 125/75 (92) 96 09/26/20 08:00 40 09/26/20 08:00 Mechanical Ventilator Mechanical Ventilator 09/26/20 08:00 99.1 101 17 121/85 (97) 97 09/26/20 07:57 102 09/26/20 07:37 109 26 40 09/26/20 07:00 113 23 131/80 (97) 96 09/26/20 06:00 110 22 133/75 (94) 96 09/26/20 05:00 106 24 118/81 (93) 95 09/26/20 04:00 106 09/26/20 04:00 Mechanical Ventilator Mechanical Ventilator 09/26/20 04:00 98.8 110 27 121/82 (95) 96 09/26/20 04:00 40 09/26/20 03:02 103 24 40 09/26/20 03:00 105 30 122/81 (95) 96 09/26/20 02:00 98 27 106/65 (79) 96 09/26/20 01:00 102 28 99/84 (89) 96 ROS: no change from my evaluation of 09/10/20. HEENT: Orally intubated, Mechanically Ventilated, Thin secretions ET Tube RHYTHM: NSR, ST LUNGS: bilat. rhonchi and rales CARDIAC: normal rate, regular rhythm, normal S1 and S2 ABDOMEN: normal bowel sounds, soft, other - sacral decub EXTREMITIES: No edema Laboratory Tests Test 09/26/20 04:50 09/26/20 08:20 09/26/20 10:30 White Blood Count 21.2 K/UL (4.8-10.8) H Red Blood Count 3.47 M/UL (4.70-6.10) L Hemoglobin 9.9 G/DL (14.2-18.0) L Hematocrit 30.3 % (42.0-52.0) L Mean Corpuscular Volume 87 FL (80-99) Mean Corpuscular Hemoglobin 28.5 PG (27.0-31.0) Mean Corpuscular Hemoglobin Concent 32.6 G/DL (32.0-36.0) Red Cell Distribution Width 14.1 % (11.6-14.8) Platelet Count 234 K/UL (150-450) Mean Platelet Volume 6.5 FL (6.5-10.1) Neutrophils (%) (Auto) % (45.0-75.0) Lymphocytes (%) (Auto) % (20.0-45.0) Monocytes (%) (Auto) % (1.0-10.0) Eosinophils (%) (Auto) % (0.0-3.0) Basophils (%) (Auto) % (0.0-2.0) Differential Total Cells Counted 100 Neutrophils % (Manual) 86 % (45-75) H Lymphocytes % (Manual) 7 % (20-45) L Monocytes % (Manual) 5 % (1-10) Eosinophils % (Manual) 0 % (0-3) Basophils % (Manual) 0 % (0-2) Myelocytes % 2 % (0-0) H Band Neutrophils 0 % (0-8) Platelet Estimate Adequate Platelet Morphology Normal Anisocytosis 1+ Sodium Level 147 MMOL/L (136-145) H Potassium Level 4.4 MMOL/L (3.5-5.1) Chloride Level 114 MMOL/L (98-107) H Carbon Dioxide Level 31 MMOL/L (21-32) Anion Gap 2 mmol/L (5-15) L Blood Urea Nitrogen 42 mg/dL (7-18) H Creatinine 0.9 MG/DL (0.55-1.30) Estimat Glomerular Filtration Rate > 60 mL/min (>60) Glucose Level 124 MG/DL (74-106) H Calcium Level 7.5 MG/DL (8.5-10.1) L Arterial Blood pH 7.399 (7.350-7.450) Arterial Blood Partial Pressure CO2 51.8 mmHg (35.0-45.0) H Arterial Blood Partial Pressure O2 77.8 mmHg (75.0-100.0) Arterial Blood HCO3 31.3 mmol/L (22.0-26.0) H Arterial Blood Oxygen Saturation 96.0 % (95-100) Arterial Blood Base Excess 5.5 (-2-2) H Freddy Test Positive Prothrombin Time 13.8 SEC (9.30-11.50) H Prothromb Time International Ratio 1.3 (0.9-1.1) H Activated Partial Thromboplast Time 29 SEC (23-33) Microbiology Date/Time Source Procedure Growth Status 09/24/20 10:50 Nasopharynx SARS-CoV-2 RdRp Gene Assay - Final Complete Assessment/Plan Assessment/Plan Respiratory failure with hypoxia Sepsis Leukocytosis Probable new aspiration PNA Recurring shock Diarrhea Dehydration/hypernatremia Likely congestion due to aspiration Acute myocardial ischemia Acute renal failure HC assoc PNA UTI Transaminitis, acute CVA/dementia Sinus bradycardia in past; now with sinus tachycardia. Acute diastolic CHF Remains CRITICAL & GUARDED Vent support; may need trach/PEG Continue volume support with hypotonic IVfluids until free water deficit corrected Antimicrobials per ID. Replace lytes as needed. F/U liver fxn DVT prophyl Cardiac monitoring Madi Rios MD Sep 27, 2020 01:02
--- NOTE | 2020-09-27 02:10 | NUR ---
NURSE NOTES: assessed pts NG tube. NG tube in place/ has not changed positions.
--- NOTE | 2020-09-27 04:33 | NUR ---
NURSE NOTES: embedded software programmer at pts bed side preforming blood lab draw.
[2020-09-27 05:56] LABS: HEMATOCRIT 27.3 % (42.0-52.0); HEMOGLOBIN 9.1 G/DL (14.2-18.0); MEAN CORPUSCULAR VOLUME 87 FL (80-99); PLATELET COUNT 214 K/UL (150-450); RED BLOOD COUNT 3.14 M/UL (4.70-6.10); RED CELL DISTRIBUTION WIDTH 13.7 % (11.6-14.8)
[2020-09-27 06:36] LABS: INR 1.3 (0.9-1.1)
[2020-09-27 06:58] LABS: WHITE BLOOD COUNT 25.3 K/UL (4.8-10.8)
--- NOTE | 2020-09-27 07:10 | NUR ---
NURSE HAND-OFF REPORT: Latest Vital Signs: Temperature 98.4 , Pulse 105 , B/P 116 /73 , Respiratory Rate 31 , O2 SAT 96 , Mechanical Ventilator, O2 Flow Rate 15.0 . Vital Sign Comment: [Stable] EKG Rhythm: Sinus Tachycardia Rhythm change?: Kaleb BENITEZ Notified?: Bienvenido Villasenor MD Response: No New Orders Received Latest Schultz Fall Score: 70 Fall Risk: High Risk Safety Measures: Call light Within Reach, Bed Alarm Zone 1, Side Rails Side Rails x3, Bed position Low and Locked. Fall Precautions: Yellow Socks Door Sign Patient Fall Education Report given to [Trinh Mccoy RN]. Addendum: 09/27/20 at 0711 by MARC PHELPS RN NURSE HAND-OFF REPORT: Latest Vital Signs: Temperature 98.4 , Pulse 105 , B/P 116 /73 , Respiratory Rate 31 , O2 SAT 96 , Mechanical Ventilator, O2 Flow Rate 15.0 . Vital Sign Comment: [Stable] EKG Rhythm: Sinus Tachycardia Rhythm change?: Kaleb BENITEZ Notified?: Bienvenido Villasenor MD Response: No New Orders Received Latest Schultz Fall Score: 70 Fall Risk: High Risk Safety Measures: Call light Within Reach, Bed Alarm Zone 1, Side Rails Side Rails x3, Bed position Low and Locked. Fall Precautions: Yellow Socks Door Sign Patient Fall Education Report given to [ David Thakur RN].
--- NOTE | 2020-09-27 07:15 | NUR ---
NURSE NOTES: LAE ENTRY: MD MCFADDEN HERE TO SEE PT. WAS INFORMED OF WBC TRENDING UP, PLAN FOR TRACH TODAY.
[2020-09-27 07:16] LABS: ALANINE AMINOTRANSFERASE 59 U/L (12-78); ALBUMIN 1.3 G/DL (3.4-5.0); ALBUMIN/GLOBULIN RATIO 0.3 (1.0-2.7); ALKALINE PHOSPHATASE 54 U/L (46-116); ANION GAP 1 mmol/L (5-15); ASPARTATE AMINO TRANSFERASE 42 U/L (15-37); BILIRUBIN,TOTAL 0.4 MG/DL (0.2-1.0); BLOOD UREA NITROGEN 32 mg/dL (7-18); CALCIUM 7.4 MG/DL (8.5-10.1); CARBON DIOXIDE 32 MMOL/L (21-32); CHLORIDE 111 MMOL/L (98-107); CREATININE 0.8 MG/DL (0.55-1.30); POTASSIUM 4.3 MMOL/L (3.5-5.1); SODIUM 144 MMOL/L (136-145)
--- NOTE | 2020-09-27 07:33 | NUR ---
NURSE NOTES: LATE ENTRY: RECEIVED REPORT FROM ARTEMIO MERCER. PT IN BED, OBTUNDED. RESPONSIVE TO PAIN. PUPILS 4MM SLUGGISH .VSS ON MONITOR. PT INTUBATED ETTUBE 7.5, 23CM AT LIP. SETTINGS AC 18, 500, 40%, PEEP 8. LUNG SOUNDS RALES. PRODUCTIVE COUGH, PEREYRA , THICK. DIET HELD, NPO PAST SURGERY TODAY. ABDOMEN SOFT, NON TENDER. BOWEL SOUNDS HYPOACTIVE. NO BM AT THIS TIME. HERNANDEZ DRAINING LIGHT YULISSA, STRAW COLOR URINE. SKIN- SEE ASSESSMENT. RT FA 20G . D5W AT 75ML/HR. AX TEMP 100.8. NO S/S OF PAIN. CAP REFILL <3SEC, SKIN TURGOR TIGHT. BILATERAL RADIAL AND PEDAL PULSES STRONG. NO JVD. PITTING EDEMA OF EXTREMITIES. PT IN CONTACT ISOLATION. BED ALARM ON, BED LOCKED IN LOW POSITION. SIDE RAILS X 3. WILL CONTINUE TO MONITOR.
--- NOTE | 2020-09-27 07:45 | NUR ---
NURSE NOTES: LATE ENTRY: MD. GARY HERE TO SEE PT. PT REPOSITIONED. HERNANDEZ ASSESSED. SECURED AND DRAINING WELL. NO ORDERS.
--- NOTE | 2020-09-27 07:59 | Urology Progress Note ---
Assessment/Plan Assessment/Plan: 1. Gross hematuria. 2. Pyuria and possible UTI. 3. Proteinuria. 4. BPH. 5. Urinary retention. 6. Probable neurogenic bladder. 7. Possible sepsis. monitor clinically maintain andrade, secured to pt's leg hand irrigated and do PRN abx as ordered flomax and proscar cysto electively voiding trial at some point? Subjective Allergies: Coded Allergies: No Known Allergies (Unverified , 09/10/20) Subjective remains on vent Objective Last 24 Hour Vital Signs Date Time Temp Pulse Resp B/P (MAP) Pulse Ox O2 Delivery O2 Flow Rate FiO2 09/27/20 07:00 105 31 116/73 (87) 96 09/27/20 06:00 105 27 123/75 (91) 96 09/27/20 05:00 103 24 119/66 (83) 98 09/27/20 04:00 103 09/27/20 04:00 40 09/27/20 04:00 Mechanical Ventilator Mechanical Ventilator 09/27/20 04:00 98.4 105 21 108/68 (81) 95 09/27/20 03:00 101 28 129/82 (98) 93 09/27/20 02:30 106 28 40 09/27/20 02:00 105 21 118/76 (90) 96 09/27/20 01:00 77 19 120/67 (84) 96 09/27/20 00:00 40 09/27/20 00:00 99 09/27/20 00:00 Mechanical Ventilator Mechanical Ventilator 09/27/20 00:00 98.6 105 24 113/72 (86) 96 09/26/20 23:00 104 32 109/69 (82) 97 09/26/20 22:32 104 33 40 09/26/20 22:00 104 33 116/69 (85) 97 09/26/20 21:00 100 29 96/59 (71) 97 09/26/20 20:00 Mechanical Ventilator Mechanical Ventilator 09/26/20 20:00 107 09/26/20 20:00 40 09/26/20 20:00 98.7 105 25 107/70 (82) 97 09/26/20 19:00 101 21 105/68 (80) 97 09/26/20 18:57 112 31 40 09/26/20 18:00 97 14 111/74 (86) 97 09/26/20 17:00 111 27 112/67 (82) 99 09/26/20 16:00 40 09/26/20 16:00 106 09/26/20 16:00 98.0 102 23 136/84 (101) 96 09/26/20 16:00 Mechanical Ventilator Mechanical Ventilator 09/26/20 15:38 112 23 40 09/26/20 15:00 100 27 119/75 (90) 97 09/26/20 14:00 105 29 127/77 (94) 97 09/26/20 13:00 100 28 123/78 (93) 96 09/26/20 12:00 40 09/26/20 12:00 Mechanical Ventilator Mechanical Ventilator 09/26/20 12:00 98.9 104 36 121/77 (92) 96 09/26/20 11:49 106 09/26/20 11:35 106 25 40 09/26/20 11:00 99 35 111/78 (89) 97 09/26/20 10:18 108 26 96 Mechanical Ventilator 40 09/26/20 10:00 110 34 131/79 (96) 96 09/26/20 09:00 115 30 125/75 (92) 96 09/26/20 08:00 40 09/26/20 08:00 Mechanical Ventilator Mechanical Ventilator 09/26/20 08:00 99.1 101 17 121/85 (97) 97 Intake and Output 09/26/20 09/27/20 19:00 07:00 Intake Total 2126.250 ml 825 ml Output Total 350 ml 350 ml Balance 1776.250 ml 475 ml Free Water 200 ml IV Total 1146.250 ml 825 ml Tube Feeding 720 ml Other 60 ml Output Urine Total 350 ml 350 ml # Bowel Movements 3 Microbiology Date/Time Source Procedure Growth Status 09/24/20 10:50 Nasopharynx SARS-CoV-2 RdRp Gene Assay - Final Complete 09/18/20 18:30 Stool Clostridium difficile Toxin Assay - Final Complete 09/17/20 12:58 Blood Blood Culture - Final NO GROWTH AFTER 5 DAYS Complete 09/10/20 20:05 Urine,Clean Catch Urine Culture - Final NO GROWTH AFTER 48 HOURS Complete 09/10/20 17:15 Rectum VRE Culture - Final Enterococcus Faecalis - Vre Complete Current Medications Medications (Trade) Dose Ordered Sig/Aleksander Route PRN Reason Start Time Stop Time Status Last Admin Dose Admin Acetaminophen (Tylenol) 650 mg Q4H PRN NG Temp >100.5 09/10/20 23:15 10/10/20 23:14 09/25/20 16:26 Al Hydroxide/Mg Hydroxide (Mylanta) 30 ml Q4H PRN NG Constipation 09/11/20 00:15 10/10/20 23:14 Ascorbic Acid (Vitamin C) 250 mg DAILY NG 09/26/20 09:00 10/18/20 08:59 09/26/20 08:29 Dextrose 1,000 ml @ 75 mls/hr [id number] IV 09/24/20 07:30 10/24/20 07:29 09/27/20 02:33 Diphenoxylate HCl/ Atropine (Lomotil) 2.5 mg Q4H PRN ORAL Diarrhea 09/20/20 08:15 10/20/20 08:14 Finasteride (Proscar) 5 mg DAILY ORAL 09/13/20 09:00 12/12/20 08:59 09/26/20 08:29 Lorazepam (Ativan 2mg/ml 1ml) 1 mg Q3H PRN IV For Anxiety/Agitation 09/21/20 12:30 09/28/20 12:29 09/25/20 16:27 Multivitamins (Multivitamins W/ Minerals 15ml Liquid) 15 ml DAILY NG 09/26/20 09:00 10/26/20 08:59 09/26/20 08:29 Ondansetron HCl (Zofran) 4 mg Q6H PRN IVP Nausea & Vomiting 09/10/20 23:15 10/10/20 23:14 Pantoprazole (Protonix) 40 mg DAILY IVP 09/11/20 09:00 10/11/20 08:59 09/26/20 08:29 Tamsulosin HCl (Flomax) 0.4 mg BEDTIME ORAL 09/12/20 21:00 10/12/20 20:59 09/26/20 20:17 Valproic Acid (Depakene) 1,000 mg BEDTIME NG 09/16/20 21:00 10/31/20 20:59 09/26/20 20:17 Vancomycin HCl (Vanco pharmacy to dose) 1 ea DAILY PRN MISC Per rx protocol 09/16/20 08:45 10/16/20 08:44 Vancomycin HCl 750 mg/Sodium Chloride 275 ml @ 183.333 mls/hr Q12H IVPB 09/25/20 08:00 09/30/20 07:59 09/26/20 20:17 Zinc Sulfate (Zinc Sulfate) 220 mg DAILY NG 09/26/20 09:00 10/06/20 08:59 09/26/20 08:29 Laboratory Tests 09/26/20 08:20: Arterial Blood pH 7.399, Arterial Blood Partial Pressure CO2 51.8H, Arterial Blood Partial Pressure O2 77.8, Arterial Blood HCO3 31.3H, Arterial Blood Oxygen Saturation 96.0, Arterial Blood Base Excess 5.5H, Freddy Test Positive 09/26/20 10:30: Prothrombin Time 13.8H, Prothromb Time International Ratio 1.3H, Activated Partial Thromboplast Time 29 09/27/20 04:25: Prothrombin Time 13.6H, Prothromb Time International Ratio 1.3H, Activated Partial Thromboplast Time 31, White Blood Count 25.3*H, Red Blood Count 3.14L, Hemoglobin 9.1L, Hematocrit 27.3L, Mean Corpuscular Volume 87, Mean Corpuscular Hemoglobin 28.9, Mean Corpuscular Hemoglobin Concent 33.3, Red Cell Distribution Width 13.7, Platelet Count 214, Mean Platelet Volume 7.2, Neutrophils (%) (Auto) , Lymphocytes (%) (Auto) , Monocytes (%) (Auto) , Eosinophils (%) (Auto) , Basophils (%) (Auto) , Neutrophils % (Manual) [Pending], Lymphocytes % (Manual) [Pending], Platelet Estimate [Pending], Platelet Morphology [Pending], Sodium Level 144, Potassium Level 4.3, Chloride Level 111H, Carbon Dioxide Level 32, Anion Gap 1L, Blood Urea Nitrogen 32H, Creatinine 0.8, Estimat Glomerular Filtration Rate > 60, Glucose Level 89, Calcium Level 7.4L, Magnesium Level 2.1, Total Bilirubin 0.4, Aspartate Amino Transf (AST/SGOT) 42H, Alanine Aminotransferase (ALT/SGPT) 59, Alkaline Phosphatase 54, Pro-B-Type Natriuretic Peptide 712H, Total Protein 5.6L, Albumin 1.3L, Globulin 4.3, Albumin/Globulin Ratio 0.3L Height (Feet): 5 Height (Inches): 6.00 Weight (Pounds): 118 Objective exam stable urine clearing Levi Brunson MD Sep 27, 2020 07:59
--- NOTE | 2020-09-27 08:35 | General Progress Note ---
Subjective ROS Limited/Unobtainable: Yes Allergies: Coded Allergies: No Known Allergies (Unverified , 09/10/20) Subjective on vent very labile and obtunded oxygenation noted and improved ICU care reviewed all consultants reviewed and discussed Objective Last 24 Hour Vital Signs Date Time Temp Pulse Resp B/P (MAP) Pulse Ox O2 Delivery O2 Flow Rate FiO2 09/27/20 07:00 105 31 116/73 (87) 96 09/27/20 06:00 105 27 123/75 (91) 96 09/27/20 05:00 103 24 119/66 (83) 98 09/27/20 04:00 103 09/27/20 04:00 40 09/27/20 04:00 Mechanical Ventilator Mechanical Ventilator 09/27/20 04:00 98.4 105 21 108/68 (81) 95 09/27/20 03:00 101 28 129/82 (98) 93 09/27/20 02:30 106 28 40 09/27/20 02:00 105 21 118/76 (90) 96 09/27/20 01:00 77 19 120/67 (84) 96 09/27/20 00:00 40 09/27/20 00:00 99 09/27/20 00:00 Mechanical Ventilator Mechanical Ventilator 09/27/20 00:00 98.6 105 24 113/72 (86) 96 09/26/20 23:00 104 32 109/69 (82) 97 09/26/20 22:32 104 33 40 09/26/20 22:00 104 33 116/69 (85) 97 09/26/20 21:00 100 29 96/59 (71) 97 09/26/20 20:00 Mechanical Ventilator Mechanical Ventilator 09/26/20 20:00 107 09/26/20 20:00 40 09/26/20 20:00 98.7 105 25 107/70 (82) 97 09/26/20 19:00 101 21 105/68 (80) 97 09/26/20 18:57 112 31 40 09/26/20 18:00 97 14 111/74 (86) 97 09/26/20 17:00 111 27 112/67 (82) 99 09/26/20 16:00 40 09/26/20 16:00 106 09/26/20 16:00 98.0 102 23 136/84 (101) 96 09/26/20 16:00 Mechanical Ventilator Mechanical Ventilator 09/26/20 15:38 112 23 40 09/26/20 15:00 100 27 119/75 (90) 97 09/26/20 14:00 105 29 127/77 (94) 97 09/26/20 13:00 100 28 123/78 (93) 96 09/26/20 12:00 40 09/26/20 12:00 Mechanical Ventilator Mechanical Ventilator 09/26/20 12:00 98.9 104 36 121/77 (92) 96 09/26/20 11:49 106 09/26/20 11:35 106 25 40 09/26/20 11:00 99 35 111/78 (89) 97 09/26/20 10:18 108 26 96 Mechanical Ventilator 40 09/26/20 10:00 110 34 131/79 (96) 96 09/26/20 09:00 115 30 125/75 (92) 96 Intake and Output 09/26/20 09/27/20 19:00 07:00 Intake Total 2126.250 ml 825 ml Output Total 350 ml 350 ml Balance 1776.250 ml 475 ml Free Water 200 ml IV Total 1146.250 ml 825 ml Tube Feeding 720 ml Other 60 ml Output Urine Total 350 ml 350 ml # Bowel Movements 3 Laboratory Tests 09/26/20 10:30: Prothrombin Time 13.8H, Prothromb Time International Ratio 1.3H, Activated Partial Thromboplast Time 29 09/27/20 04:25: Prothrombin Time 13.6H, Prothromb Time International Ratio 1.3H, Activated Partial Thromboplast Time 31, White Blood Count 25.3*H, Red Blood Count 3.14L, Hemoglobin 9.1L, Hematocrit 27.3L, Mean Corpuscular Volume 87, Mean Corpuscular Hemoglobin 28.9, Mean Corpuscular Hemoglobin Concent 33.3, Red Cell Distribution Width 13.7, Platelet Count 214, Mean Platelet Volume 7.2, Neutrophils (%) (Auto) , Lymphocytes (%) (Auto) , Monocytes (%) (Auto) , Eosinophils (%) (Auto) , Basophils (%) (Auto) , Neutrophils % (Manual) [Pending], Lymphocytes % (Manual) [Pending], Platelet Estimate [Pending], Platelet Morphology [Pending], Sodium Level 144, Potassium Level 4.3, Chloride Level 111H, Carbon Dioxide Level 32, Anion Gap 1L, Blood Urea Nitrogen 32H, Creatinine 0.8, Estimat Glomerular Fi ltration Rate > 60, Glucose Level 89, Calcium Level 7.4L, Magnesium Level 2.1, Total Bilirubin 0.4, Aspartate Amino Transf (AST/SGOT) 42H, Alanine Aminotransferase (ALT/SGPT) 59, Alkaline Phosphatase 54, Pro-B-Type Natriuretic Peptide 712H, Total Protein 5.6L, Albumin 1.3L, Globulin 4.3, Albumin/Globulin Ratio 0.3L Height (Feet): 6 Height (Inches): 1.00 Weight (Pounds): 148 Objective WDWN chronically ill ETT in place feeding tube in place reduced breath sounds bilaterally with scattered rhonchi [id number] tachy without MRG NABS nontender no CCE nonfocal poor LOC Assessment/Plan Assessment/Plan: IMPRESSION: 1. Acute renal failure. 2. Hypernatremia. 3. Leukocytosis. 4. Possible sepsis. 5. Hypotension. 6. Dementia. 7. Acute on chronic encephalopathy. 8. bcx staph Epi 9. MRSA colonized 10. acute hypoxemic respiratory failure 11. atelectasis/collapse 12. leukocytosis PLAN taper fio2 as able taper PEEP as able ID noted; monitor follow up on antibiotics monitor renal parameters monitor oxygen needs vent support full for now off load correct sodium position change monitor imaging d/w consultants and nursing remains critical CANNOT OPTIMIZE, NEEDS TRACH/AIRWAY/GT for chronic care management discussed with consultants and CM no family found await trach/peg and placement hope today medications/laboratory data/nursing notes/ICU care reviewed in detail note reviewed and edited care discussed with RN and RT ICU time spent >40 minutes Patel Villasenor MD Sep 27, 2020 08:35
[2020-09-27] MEDS: Multivitamins W/Minerals 15 ML UDC NG SCH (08:36)
[2020-09-27] MEDS: Ascorbic Acid 500mg tab NG SCH (08:36)
[2020-09-27] MEDS: Pantoprazole Inj IVP SCH (08:36)
[2020-09-27] MEDS: Zinc Sulfate 220mg NG SCH (08:36)
[2020-09-27] MEDS: Acetaminophen 650mg/20.3ml NG PRN ×2 (08:36→21:09)
[2020-09-27] MEDS: Vancomycin 750mg/NS 275ml IVPB SCH ×2 (08:36)
--- NOTE | 2020-09-27 08:50 | Infectious Diseases Prog Note ---
Assessment/Plan Assessment/Plan A 1. Pneumonia with MRSA COVID19 test is negative. 2. Dementia. 3. Leukocytosis 4. Urinary tract infection 5. 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 BPH P 1. continue IV Vancomycin 2. Will f/u cultures Subjective ROS Limited/Unobtainable: Yes Respiratory: Reports: other - will have tracheostomy today Allergies: Coded Allergies: No Known Allergies (Unverified , 09/10/20) Objective Last 24 Hour Vital Signs Date Time Temp Pulse Resp B/P (MAP) Pulse Ox O2 Delivery O2 Flow Rate FiO2 09/27/20 07:00 105 31 116/73 (87) 96 09/27/20 06:00 105 27 123/75 (91) 96 09/27/20 05:00 103 24 119/66 (83) 98 09/27/20 04:00 103 09/27/20 04:00 40 09/27/20 04:00 Mechanical Ventilator Mechanical Ventilator 09/27/20 04:00 98.4 105 21 108/68 (81) 95 09/27/20 03:00 101 28 129/82 (98) 93 09/27/20 02:30 106 28 40 09/27/20 02:00 105 21 118/76 (90) 96 09/27/20 01:00 77 19 120/67 (84) 96 09/27/20 00:00 40 09/27/20 00:00 99 09/27/20 00:00 Mechanical Ventilator Mechanical Ventilator 09/27/20 00:00 98.6 105 24 113/72 (86) 96 09/26/20 23:00 104 32 109/69 (82) 97 09/26/20 22:32 104 33 40 09/26/20 22:00 104 33 116/69 (85) 97 09/26/20 21:00 100 29 96/59 (71) 97 09/26/20 20:00 Mechanical Ventilator Mechanical Ventilator 09/26/20 20:00 107 09/26/20 20:00 40 09/26/20 20:00 98.7 105 25 107/70 (82) 97 09/26/20 19:00 101 21 105/68 (80) 97 09/26/20 18:57 112 31 40 09/26/20 18:00 97 14 111/74 (86) 97 09/26/20 17:00 111 27 112/67 (82) 99 09/26/20 16:00 40 09/26/20 16:00 106 09/26/20 16:00 98.0 102 23 136/84 (101) 96 09/26/20 16:00 Mechanical Ventilator Mechanical Ventilator 09/26/20 15:38 112 23 40 09/26/20 15:00 100 27 119/75 (90) 97 09/26/20 14:00 105 29 127/77 (94) 97 09/26/20 13:00 100 28 123/78 (93) 96 09/26/20 12:00 40 09/26/20 12:00 Mechanical Ventilator Mechanical Ventilator 09/26/20 12:00 98.9 104 36 121/77 (92) 96 09/26/20 11:49 106 09/26/20 11:35 106 25 40 09/26/20 11:00 99 35 111/78 (89) 97 09/26/20 10:18 108 26 96 Mechanical Ventilator 40 09/26/20 10:00 110 34 131/79 (96) 96 09/26/20 09:00 115 30 125/75 (92) 96 Height (Feet): 6 Height (Inches): 1.00 Weight (Pounds): 148 HEENT: other - orally intubated Respiratory/Chest: decreased breath sounds, other - on ventilator Cardiovascular: tachycardia Abdomen: soft, non tender, other - NG tube Extremities: other - mild pedal edema Neurologic/Psychiatric: unresponsiveness Microbiology Date/Time Source Procedure Growth Status 09/24/20 10:50 Nasopharynx SARS-CoV-2 RdRp Gene Assay - Final Complete Laboratory Tests Test 09/26/20 10:30 09/27/20 04:25 Prothrombin Time 13.8 SEC (9.30-11.50) H 13.6 SEC (9.30-11.50) H Prothromb Time International Ratio 1.3 (0.9-1.1) H 1.3 (0.9-1.1) H Activated Partial Thromboplast Time 29 SEC (23-33) 31 SEC (23-33) White Blood Count 25.3 K/UL (4.8-10.8) *H Red Blood Count 3.14 M/UL (4.70-6.10) L Hemoglobin 9.1 G/DL (14.2-18.0) L Hematocrit 27.3 % (42.0-52.0) L Mean Corpuscular Volume 87 FL (80-99) Mean Corpuscular Hemoglobin 28.9 PG (27.0-31.0) Mean Corpuscular Hemoglobin Concent 33.3 G/DL (32.0-36.0) Red Cell Distribution Width 13.7 % (11.6-14.8) Platelet Count 214 K/UL (150-450) Mean Platelet Volume 7.2 FL (6.5-10.1) Neutrophils (%) (Auto) % (45.0-75.0) Lymphocytes (%) (Auto) % (20.0-45.0) Monocytes (%) (Auto) % (1.0-10.0) Eosinophils (%) (Auto) % (0.0-3.0) Basophils (%) (Auto) % (0.0-2.0) Neutrophils % (Manual) Pending Lymphocytes % (Manual) Pending Platelet Estimate Pending Platelet Morphology Pending Sodium Level 144 MMOL/L (136-145) Potassium Level 4.3 MMOL/L (3.5-5.1) Chloride Level 111 MMOL/L (98-107) H Carbon Dioxide Level 32 MMOL/L (21-32) Anion Gap 1 mmol/L (5-15) L Blood Urea Nitrogen 32 mg/dL (7-18) H Creatinine 0.8 MG/DL (0.55-1.30) Estimat Glomerular Filtration Rate > 60 mL/min (>60) Glucose Level 89 MG/DL (74-106) Calcium Level 7.4 MG/DL (8.5-10.1) L Magnesium Level 2.1 MG/DL (1.8-2.4) Total Bilirubin 0.4 MG/DL (0.2-1.0) Aspartate Amino Transf (AST/SGOT) 42 U/L (15-37) H Alanine Aminotransferase (ALT/SGPT) 59 U/L (12-78) Alkaline Phosphatase 54 U/L (46-116) Pro-B-Type Natriuretic Peptide 712 pg/mL (0-125) H Total Protein 5.6 G/DL (6.4-8.2) L Albumin 1.3 G/DL (3.4-5.0) L Globulin 4.3 g/dL Albumin/Globulin Ratio 0.3 (1.0-2.7) L Current Medications Medications (Trade) Dose Ordered Sig/Aleksander Route PRN Reason Start Time Stop Time Status Last Admin Dose Admin Acetaminophen (Tylenol) 650 mg Q4H PRN NG Temp >100.5 09/10/20 23:15 10/10/20 23:14 09/27/20 08:36 Al Hydroxide/Mg Hydroxide (Mylanta) 30 ml Q4H PRN NG Constipation 09/11/20 00:15 10/10/20 23:14 Ascorbic Acid (Vitamin C) 250 mg DAILY NG 09/26/20 09:00 10/18/20 08:59 09/27/20 08:36 Dextrose 1,000 ml @ 75 mls/hr [id number] IV 09/24/20 07:30 10/24/20 07:29 09/27/20 02:33 Diphenoxylate HCl/ Atropine (Lomotil) 2.5 mg Q4H PRN ORAL Diarrhea 09/20/20 08:15 10/20/20 08:14 Finasteride (Proscar) 5 mg DAILY ORAL 09/13/20 09:00 12/12/20 08:59 09/27/20 08:36 Lorazepam (Ativan 2mg/ml 1ml) 1 mg Q3H PRN IV For Anxiety/Agitation 09/21/20 12:30 09/28/20 12:29 09/25/20 16:27 Multivitamins (Multivitamins W/ Minerals 15ml Liquid) 15 ml DAILY NG 09/26/20 09:00 10/26/20 08:59 09/27/20 08:36 Ondansetron HCl (Zofran) 4 mg Q6H PRN IVP Nausea & Vomiting 09/10/20 23:15 10/10/20 23:14 Pantoprazole (Protonix) 40 mg DAILY IVP 09/11/20 09:00 10/11/20 08:59 09/27/20 08:36 Tamsulosin HCl (Flomax) 0.4 mg BEDTIME ORAL 09/12/20 21:00 10/12/20 20:59 09/26/20 20:17 Valproic Acid (Depakene) 1,000 mg BEDTIME NG 09/16/20 21:00 10/31/20 20:59 09/26/20 20:17 Vancomycin HCl (Vanco pharmacy to dose) 1 ea DAILY PRN MISC Per rx protocol 09/16/20 08:45 10/16/20 08:44 Vancomycin HCl 750 mg/Sodium Chloride 275 ml @ 183.333 mls/hr Q12H IVPB 09/25/20 08:00 09/30/20 07:59 09/27/20 08:36 Zinc Sulfate (Zinc Sulfate) 220 mg DAILY NG 09/26/20 09:00 10/06/20 08:59 09/27/20 08:36 Bradley Gil MD Sep 27, 2020 08:50
[2020-09-27] MEDS ORDERED: Lidocaine 1%/ 10mg/ml/EPI 0.01mg/ml 20ml INJ ONE (09:02)
--- NOTE | 2020-09-27 09:59 | General Progress Note ---
Subjective ROS Limited/Unobtainable: No Allergies: Coded Allergies: No Known Allergies (Unverified , 09/10/20) Objective Last 24 Hour Vital Signs Date Time Temp Pulse Resp B/P (MAP) Pulse Ox O2 Delivery O2 Flow Rate FiO2 09/27/20 07:00 105 31 116/73 (87) 96 09/27/20 06:00 105 27 123/75 (91) 96 09/27/20 05:00 103 24 119/66 (83) 98 09/27/20 04:00 103 09/27/20 04:00 40 09/27/20 04:00 Mechanical Ventilator Mechanical Ventilator 09/27/20 04:00 98.4 105 21 108/68 (81) 95 09/27/20 03:00 101 28 129/82 (98) 93 09/27/20 02:30 106 28 40 09/27/20 02:00 105 21 118/76 (90) 96 09/27/20 01:00 77 19 120/67 (84) 96 09/27/20 00:00 40 09/27/20 00:00 99 09/27/20 00:00 Mechanical Ventilator Mechanical Ventilator 09/27/20 00:00 98.6 105 24 113/72 (86) 96 09/26/20 23:00 104 32 109/69 (82) 97 09/26/20 22:32 104 33 40 09/26/20 22:00 104 33 116/69 (85) 97 09/26/20 21:00 100 29 96/59 (71) 97 09/26/20 20:00 Mechanical Ventilator Mechanical Ventilator 09/26/20 20:00 107 09/26/20 20:00 40 09/26/20 20:00 98.7 105 25 107/70 (82) 97 09/26/20 19:00 101 21 105/68 (80) 97 09/26/20 18:57 112 31 40 09/26/20 18:00 97 14 111/74 (86) 97 09/26/20 17:00 111 27 112/67 (82) 99 09/26/20 16:00 40 09/26/20 16:00 106 09/26/20 16:00 98.0 102 23 136/84 (101) 96 09/26/20 16:00 Mechanical Ventilator Mechanical Ventilator 09/26/20 15:38 112 23 40 09/26/20 15:00 100 27 119/75 (90) 97 09/26/20 14:00 105 29 127/77 (94) 97 09/26/20 13:00 100 28 123/78 (93) 96 09/26/20 12:00 40 09/26/20 12:00 Mechanical Ventilator Mechanical Ventilator 09/26/20 12:00 98.9 104 36 121/77 (92) 96 09/26/20 11:49 106 09/26/20 11:35 106 25 40 09/26/20 11:00 99 35 111/78 (89) 97 09/26/20 10:18 108 26 96 Mechanical Ventilator 40 09/26/20 10:00 110 34 131/79 (96) 96 Intake and Output 09/26/20 09/27/20 19:00 07:00 Intake Total 2126.250 ml 825 ml Output Total 350 ml 350 ml Balance 1776.250 ml 475 ml Free Water 200 ml IV Total 1146.250 ml 825 ml Tube Feeding 720 ml Other 60 ml Output Urine Total 350 ml 350 ml # Bowel Movements 3 Laboratory Tests 09/26/20 10:30: Prothrombin Time 13.8H, Prothromb Time International Ratio 1.3H, Activated Partial Thromboplast Time 29 09/27/20 04:25: Prothrombin Time 13.6H, Prothromb Time International Ratio 1.3H, Activated Partial Thromboplast Time 31, White Blood Count 25.3*H, Red Blood Count 3.14L, Hemoglobin 9.1L, Hematocrit 27.3L, Mean Corpuscular Volume 87, Mean Corpuscular Hemoglobin 28.9, Mean Corpuscular Hemoglobin Concent 33.3, Red Cell Distribution Width 13.7, Platelet Count 214, Mean Platelet Volume 7.2, Neutrophils (%) (Auto) , Lymphocytes (%) (Auto) , Monocytes (%) (Auto) , Eosinophils (%) (Auto) , Basophils (%) (Auto) , Neutrophils % (Manual) [Pending], Lymphocytes % (Manual) [Pending], Platelet Estimate [Pending], Platelet Morphology [Pending], Sodium Level 144, Potassium Level 4.3, Chloride Level 111H, Carbon Dioxide Level 32, Anion Gap 1L, Blood Urea Nitrogen 32H, Creatinine 0.8, Estimat Glomerular Filtration Rate > 60, Glucose Level 89, Calcium Level 7.4L, Magnesium Level 2.1, Total Bilirubin 0.4, Aspartate Amino Transf (AST/SGOT) 42H, Alanine Aminotr ansferase (ALT/SGPT) 59, Alkaline Phosphatase 54, Pro-B-Type Natriuretic Peptide 712H, Total Protein 5.6L, Albumin 1.3L, Globulin 4.3, Albumin/Globulin Ratio 0.3L Height (Feet): 6 Height (Inches): 1.00 Weight (Pounds): 148 General Appearance: lethargic EENT: normal ENT inspection Neck: supple Cardiovascular: normal rate Respiratory/Chest: decreased breath sounds Abdomen: normal bowel sounds, non tender, soft Extremities: non-tender Assessment/Plan Assessment/Plan: Assessment - resp failure - NGT dependent - OBS/Dementia - sepsis - diarrhea, C Diff (-) - Azotemia, resolved - CHF - malnutrition , low albumin - leukocytosis - hypernatremia Recommendations -Vent care / support - abx - supportive care - continue TF - increase free water - abx - will arrange for PEG placement once medically stable and WBC is better -pending trach for today Hima Escalante MD Sep 27, 2020 09:59
--- NOTE | 2020-09-27 11:35 | NUR ---
NURSE NOTES: LATE ENTRY: CALLED MD. TREVIZO REGARDING REAPPEARANCE OF HIVES POST IV ADMINISTRATION OF VANCOMYCIN. RECEIVED ORDER TO D/C VANCOMYCIN, ADD ZYVOX 600MG NGT Q12HR, BENADRYL 25MG IVP Q6HR PRN.
[2020-09-27] MEDS ORDERED: Rocuronium Bromide 50mg/5ml Inj IV ONE (12:37)
--- NOTE | 2020-09-27 12:44 | Immediate Post-Op Evaluation ---
Immediate Post-Op Evalulation Immediate Post-Op Evalulation Procedure: Tracheostomy Date of Evaluation: Sep 27, 2020 Time of Evaluation: 13:47 IV Fluids: 10 NS Blood Products: 0 Estimated Blood Loss: 7 Urinary Output: 0 Blood Pressure Systolic: 95 Blood Pressure Diastolic: 54 Pulse Rate: 111 Respiratory Rate: 20 - Mech Vent O2 Sat by Pulse Oximetry: 100 Temperature (Fahrenheit): 98.3 Pain Score (1-10): 0 Nausea: No Vomiting: No Complications 0 Patient Status: no response, patent, ventilated, none Hydration Status: adequate Drug: on Murail Comer MD Sep 27, 2020 12:44
--- NOTE | 2020-09-27 12:45 | 48 Hour Post Anesthesia Eval ---
Post Anesthesia Evaluation Procedure: Tracheostomy Date of Evaluation: Sep 27, 2020 Time of Evaluation: 15:56 Blood Pressure Systolic: 112 0: 67 Pulse Rate: 98 Respiratory Rate: 20 - Mech Vent Temperature (Fahrenheit): 98.3 O2 Sat by Pulse Oximetry: 100 Airway: patent Nausea: No Vomiting: No Pain Intensity: 0 Hydration Status: adequate Cardiopulmonary Status: Stable Mental Status/LOC: patient returned to baseline Follow-up Care/Observations: 0 Post-Anesthesia Complications: 0 Follow-up care needed: N/A Murali Comer MD Sep 27, 2020 12:45
--- NOTE | 2020-09-27 12:53 | NUR ---
NURSE NOTES: LATE ENTRY: PT OFF UNIT, GOING FOR TRACH. TRANSPORTED WITH R.N AND R.T. NO DISTRESS NOTED. REPORT GIVEN TO BRIDGET R.N USING SBAR. AWAITING PT RETURN.
[2020-09-27] MEDS ORDERED: Sterile Water Irrig 1000ml IRRIG ONE (13:00)
[2020-09-27] MEDS ORDERED: NS Irrig 1000ml ONE (13:00)
--- NOTE | 2020-09-27 13:26 | Surgery Progress Note ---
Surgery Progress Note Subjective Procedure Performed tracheostomy Additional Comments trach today Objective Last 24 Hour Vital Signs Date Time Temp Pulse Resp B/P (MAP) Pulse Ox O2 Delivery O2 Flow Rate FiO2 09/27/20 07:00 105 31 116/73 (87) 96 09/27/20 06:00 105 27 123/75 (91) 96 09/27/20 05:00 103 24 119/66 (83) 98 09/27/20 04:00 103 09/27/20 04:00 40 09/27/20 04:00 Mechanical Ventilator Mechanical Ventilator 09/27/20 04:00 98.4 105 21 108/68 (81) 95 09/27/20 03:00 101 28 129/82 (98) 93 09/27/20 02:30 106 28 40 09/27/20 02:00 105 21 118/76 (90) 96 09/27/20 01:00 77 19 120/67 (84) 96 09/27/20 00:00 40 09/27/20 00:00 99 09/27/20 00:00 Mechanical Ventilator Mechanical Ventilator 09/27/20 00:00 98.6 105 24 113/72 (86) 96 09/26/20 23:00 104 32 109/69 (82) 97 09/26/20 22:32 104 33 40 09/26/20 22:00 104 33 116/69 (85) 97 09/26/20 21:00 100 29 96/59 (71) 97 09/26/20 20:00 Mechanical Ventilator Mechanical Ventilator 09/26/20 20:00 107 09/26/20 20:00 40 09/26/20 20:00 98.7 105 25 107/70 (82) 97 09/26/20 19:00 101 21 105/68 (80) 97 09/26/20 18:57 112 31 40 09/26/20 18:00 97 14 111/74 (86) 97 09/26/20 17:00 111 27 112/67 (82) 99 09/26/20 16:00 40 09/26/20 16:00 106 09/26/20 16:00 98.0 102 23 136/84 (101) 96 09/26/20 16:00 Mechanical Ventilator Mechanical Ventilator 09/26/20 15:38 112 23 40 09/26/20 15:00 100 27 119/75 (90) 97 09/26/20 14:00 105 29 127/77 (94) 97 I&O Intake and Output 09/26/20 09/27/20 18:59 06:59 Intake Total 2126.250 ml 885 ml Output Total 360 ml 340 ml Balance 1766.250 ml 545 ml Free Water 200 ml IV Total 1146.250 ml 825 ml Tube Feeding 720 ml 60 ml Other 60 ml Output Urine Total 360 ml 340 ml # Bowel Movements 3 Dressing: other Wound: other Cardiovascular: other Respiratory: other Abdomen: other Extremities: other Laboratory Tests Test 09/27/20 04:25 White Blood Count 25.3 K/UL (4.8-10.8) *H Red Blood Count 3.14 M/UL (4.70-6.10) L Hemoglobin 9.1 G/DL (14.2-18.0) L Hematocrit 27.3 % (42.0-52.0) L Mean Corpuscular Volume 87 FL (80-99) Mean Corpuscular Hemoglobin 28.9 PG (27.0-31.0) Mean Corpuscular Hemoglobin Concent 33.3 G/DL (32.0-36.0) Red Cell Distribution Width 13.7 % (11.6-14.8) Platelet Count 214 K/UL (150-450) Mean Platelet Volume 7.2 FL (6.5-10.1) Neutrophils (%) (Auto) % (45.0-75.0) Lymphocytes (%) (Auto) % (20.0-45.0) Monocytes (%) (Auto) % (1.0-10.0) Eosinophils (%) (Auto) % (0.0-3.0) Basophils (%) (Auto) % (0.0-2.0) Differential Total Cells Counted 100 Neutrophils % (Manual) 87 % (45-75) H Lymphocytes % (Manual) 6 % (20-45) L Monocytes % (Manual) 4 % (1-10) Eosinophils % (Manual) 0 % (0-3) Basophils % (Manual) 0 % (0-2) Metamyelocytes % 1 % (0-0) H Myelocytes % 2 % (0-0) H Band Neutrophils 0 % (0-8) Platelet Estimate Adequate Platelet Morphology Normal Hypochromasia 1+ Prothrombin Time 13.6 SEC (9.30-11.50) H Prothromb Time International Ratio 1.3 (0.9-1.1) H Activated Partial Thromboplast Time 31 SEC (23-33) Sodium Level 144 MMOL/L (136-145) Potassium Level 4.3 MMOL/L (3.5-5.1) Chloride Level 111 MMOL/L (98-107) H Carbon Dioxide Level 32 MMOL/L (21-32) Anion Gap 1 mmol/L (5-15) L Blood Urea Nitrogen 32 mg/dL (7-18) H Creatinine 0.8 MG/DL (0.55-1.30) Estimat Glomerular Filtration Rate > 60 mL/min (>60) Glucose Level 89 MG/DL (74-106) Calcium Level 7.4 MG/DL (8.5-10.1) L Magnesium Level 2.1 MG/DL (1.8-2.4) Total Bilirubin 0.4 MG/DL (0.2-1.0) Aspartate Amino Transf (AST/SGOT) 42 U/L (15-37) H Alanine Aminotransferase (ALT/SGPT) 59 U/L (12-78) Alkaline Phosphatase 54 U/L (46-116) Pro-B-Type Natriuretic Peptide 712 pg/mL (0-125) H Total Protein 5.6 G/DL (6.4-8.2) L Albumin 1.3 G/DL (3.4-5.0) L Globulin 4.3 g/dL Albumin/Globulin Ratio 0.3 (1.0-2.7) L Plan Problems: (1) Fever Assessment & Plan: maybe developing pneumonia cont abx pulm input thank you (2) Decubitus skin ulcer Assessment & Plan: Patient identified on admission to have multiple scabs on t he left arm. mild open scabs with eschar. no drainage. no significant cellulitis. bruising no bilateral extremities noted. no signs of abuse. likely from agitation Sacral coccygeal noted to have a DTI 4.3X2.5CM. which is dark purple . RECOMMEND-CLEAN WITH SALINE, PAT DRY AND APPLY CALAZINE. COVER WITH OPTIFOAM DRESSING. REPLACE EVERY 3 DAYS OR NEEDED LEFT ISCHIUM- STAGE I PRESSURE ULCER MEASURES 4.5X1.7CM. NON-BLANCHABLE ERYTHEMA. RECOMMEND- APPLY CALAZINE AND COVER WITH OPTIFOAM DRESSING. REPLACE EVERY 7 DAYS. Turn q2h off load pressure with pillow off load heels nutritional optimization CLINICAL CODER eval will follow with recs thank you (3) Malnutrition Assessment & Plan: Mr. Roman is a 70 year old male BIBA to ED of [facility] on 09/10/2020 around 14:00 due to fever. He was found to be hypotensive 91/55 (67), Temp: 100.0, leukocytosis 20.8k and subsequently transferred to ICU for septic shock. The blood culture is reportedly positive for gram positive cocci. NG tube was placed, KUB confirmed the placement to day. Pt is clinically stable with leukocytosis 20.1, improved BUN and creatine, stable hemodynamic without vasopressor. Findings: Mr. Roman is disoriented. He does ot follow commands at this time. Oral cavity is noted to be dried blood concretion likely from NG trauma. No active bleeding site is seen. Due to his level f alertness, already NG tube is in placed, PO trial was not done at this time. Transferred out ICU last night. He is non on tele. Issues: multiple wounds, s.p balaji/nasal/pharyngeal bleeding with blood culture Gram positive cocci leukocytosis trending down from 20k-20k-16k BUN/Creatine trending down from 93/1.9-79/1.3-54/1.1 Temp: 98.1~98.7, Pulse: 62~72, BP: 105/67~120/48, SPO2 98~100% on 2 liter S: Oral cavity is better condition comparison to yesterday. The mucosa is severely erythema without active bleeding. Limited level of alertness for direct therapy. NG in placed O: 1. Laryngeal palpation to trigger spontaneous cough and swallow: Pt triggered cough with laryngeal palpation. Approximately 5~10 seconds after coughing, he triggered swallow. based on this observation, he presents with copious secretion in pharynx and larynx. He continued to have poor secretion management at laryngeal level at this time. NO PO trial was given due to poor secretion at the level of air way with low level of alertness. A: 1. Probable aspiration of his own secretion with poor ability to cough and swallow 2. Dysphagia P: 1. NPO for now 2. Observe his secretion, and level of alertness for PO readiness. DAILY ESTIMATED NEEDS: Needs based on Wound, underweight/ 55kg 30-35 kcals/kg 7791-3181 total kcals 1.25-2 g protein/kg 69-110 g total protein 25-30 mL/kg 8331-9873 total fluid mLs NUTRITION DIAGNOSIS: Increased kcal/prot needs R/T wound healing and underweight status as evidenced by pt admitted w/ wounds including DTI 2 coccyx and stage 1 @ lt ischium, pt @ 73% IBW w/ low BMI per guidelines, s/p NGT insertion, on NGT feeds. CURRENT TF:Jevity 1.2 @ 50ml/hr x 24 hrs ENTERAL NUTRITION RECOMMENDATIONS: Jevity 1.2 @ 60ml/hr x 24 hrs to provide 1440ml, 1728kcal, 80g prot, 1160ml free water * As medically appropriate, increase goal rate to 60ml/hr x 24 hrs to meet 100% est kcal/prot needs * HOB over 30 degrees/ without IVF, H2O flush of 100ml q 8hrs ADDITIONAL RECOMMENDATIONS: * Calibrated daily bedscale wt Per SNF: HT=70" * Wound healing: TF rec @ goal will provide 100% RDI add Vit C 250mg QD, ZnSO4 220mg QD x 10days, Davidson BID via NGT * Monitor BGs, need for NISS w/ TF * Monitor lytes, replete as needed- high risk for refeeding syndrome -> check f/up phos and mag (4) Severe sepsis Assessment & Plan: will likely need trach and peg. patient needs protected airway and nutrition full code no family and unable to consent medically necessary. will plan soon (5) Open upper arm wound (6) Hematuria Assessment & Plan: as per urology Aubrey Gutierrez Sep 27, 2020 13:26
--- NOTE | 2020-09-27 13:26 | Brief Operative Note ---
Immediate Post Operative Note Operative Note Pre-op Diagnosis: respiratory insufficiency requiring prolonged ventilatory support Procedure: tracheostomy Post-op Diagnosis: same as pre-op Surgeon: satya Anesthesiologist: roxana Anesthesia: general, local Specimen: none Complications: none Condition: stable Fluids: see Estimated Blood Loss: minimal Drains: none Implant(s) used?: No Aubrey Gutierrez Sep 27, 2020 13:26
--- NOTE | 2020-09-27 13:53 | NUR ---
NURSE NOTES: PT BACK ON UNIT. CONNECTED TO MONITOR. TRACH DRESSING INTACT. PT RESTING. VSS.
--- NOTE | 2020-09-27 15:00 | Operative Note - Dictated ---
DATE OF OPERATION: 09/27/2020 PREOPERATIVE DIAGNOSIS: Respiratory insufficiency requiring prolonged ventilatory support. POSTOPERATIVE DIAGNOSIS: Respiratory insufficiency requiring prolonged ventilatory support. OPERATION PERFORMED: Tracheostomy. ATTENDING SURGEON: Aubrey Gutierrez MD. TELETYPESETTER OPERATOR: None. ANESTHESIOLOGIST: Murali Comer MD. ANESTHESIA: General SCREW MACHINE OPERATOR plus local. ESTIMATED BLOOD LOSS: Minimal. IV FLUIDS: Please see anesthesia records. COMPLICATIONS: None. DRAINS: None. COUNTS: Sponge and needle count correct x2. WOUND CLASSIFICATION: Class 3. IMPLANTS: An 8-Dutch Shiley. INDICATIONS FOR PROCEDURE: This is a 70-year-old male in intensive care unit at [facility] for prolonged period of time intubated on ventilatory support, unable to wean safely and extubate. Tracheostomy is indicated and recommended. The patient does not have next of kin, family or power of banking attorney, and is unrepresented, and therefore requires multidisciplinary team, which evaluated the patient and agreed for continuation of care given the patient's code status, which was and plan for tracheostomy and following through PEG. OPERATIVE NOTE: The patient was taken to the operating room and placed on the operating table in supine position with bilateral arms down. All bony prominences were well padded. SCDs placed. Preoperative time-out was taken identifying the patient, procedure, operative site, and surgical staff. A shoulder roll was placed and neck was hyperextended. Neck was prepped and draped in standard surgical fashion. Anatomical landmarks identified. Local anesthetic infiltrated. Incision was made two fingerbreadths above the sternal notch, carried down through the subcutaneous tissue to the platysma and to the median raphe. Median raphe identified, split and mobilized laterally. Trachea was identified. First and third tracheal rings were clearly identified and dissected clear. Window was made between the first and second tracheal rings and ET tube was identified. ET tube was slowly withdrawn by the anesthesiologist. An 8-Dutch tracheostomy was inserted without complication. Balloon was insufflated and was identified. Trach sutured in place for the patient's safety. Trach tie placed. Dressings placed. Deep suctioning performed. The patient tolerated the procedure well and was taken directly to the intensive care unit postoperatively. Aubrey Gutierrez M.D. DR: MARIAMA JOB#: [id number] CC:
--- NOTE | 2020-09-27 15:19 | General Progress Note ---
Subjective ROS Limited/Unobtainable: No Constitutional: Reports: malaise, weakness HEENT: Reports: no symptoms Cardiovascular: Reports: no symptoms Respiratory: Reports: cough, shortness of breath, sputum Gastrointestinal/Abdominal: Reports: no symptoms Genitourinary: Reports: no symptoms Neurologic/Psychiatric: Reports: pre-existing deficit Endocrine: Reports: no symptoms Hematologic/Lymphatic: Reports: no symptoms Allergies: Coded Allergies: No Known Allergies (Unverified , 09/10/20) All Systems: reviewed and negative except above Subjective no events. stable on the vent. no fevers. +congestion. confused and poorly responsive. npo for trach. Objective Last 24 Hour Vital Signs Date Time Temp Pulse Resp B/P (MAP) Pulse Ox O2 Delivery O2 Flow Rate FiO2 09/27/20 14:00 90 18 100/63 (75) 97 09/27/20 13:27 93 12 96/61 (73) 87 09/27/20 13:27 98 20 100 09/27/20 13:26 111 20 100 09/27/20 12:53 65 09/27/20 12:00 Mechanical Ventilator Mechanical Ventilator 09/27/20 12:00 40 09/27/20 12:00 102 22 09/27/20 11:00 107 29 121/69 (86) 96 09/27/20 10:00 100 23 110/65 (80) 97 09/27/20 09:00 100 25 105/54 (71) 97 09/27/20 08:00 100.8 102 27 107/71 (83) 96 09/27/20 08:00 Mechanical Ventilator Mechanical Ventilator 09/27/20 08:00 40 09/27/20 07:00 105 31 116/73 (87) 96 09/27/20 06:00 105 27 123/75 (91) 96 09/27/20 05:00 103 24 119/66 (83) 98 09/27/20 04:00 103 09/27/20 04:00 40 09/27/20 04:00 Mechanical Ventilator Mechanical Ventilator 09/27/20 04:00 98.4 105 21 108/68 (81) 95 09/27/20 03:00 101 28 129/82 (98) 93 09/27/20 02:30 106 28 40 09/27/20 02:00 105 21 118/76 (90) 96 09/27/20 01:00 77 19 120/67 (84) 96 09/27/20 00:00 40 09/27/20 00:00 99 09/27/20 00:00 Mechanical Ventilator Mechanical Ventilator 09/27/20 00:00 98.6 105 24 113/72 (86) 96 09/26/20 23:00 104 32 109/69 (82) 97 09/26/20 22:32 104 33 40 09/26/20 22:00 104 33 116/69 (85) 97 09/26/20 21:00 100 29 96/59 (71) 97 09/26/20 20:00 Mechanical Ventilator Mechanical Ventilator 09/26/20 20:00 107 09/26/20 20:00 40 09/26/20 20:00 98.7 105 25 107/70 (82) 97 09/26/20 19:00 101 21 105/68 (80) 97 09/26/20 18:57 112 31 40 09/26/20 18:00 97 14 111/74 (86) 97 09/26/20 17:00 111 27 112/67 (82) 99 09/26/20 16:00 40 09/26/20 16:00 106 09/26/20 16:00 98.0 102 23 136/84 (101) 96 09/26/20 16:00 Mechanical Ventilator Mechanical Ventilator 09/26/20 15:38 112 23 40 Intake and Output 09/26/20 09/27/20 19:00 07:00 Intake Total 2126.250 ml 825 ml Output Total 350 ml 350 ml Balance 1776.250 ml 475 ml Free Water 200 ml IV Total 1146.250 ml 825 ml Tube Feeding 720 ml Other 60 ml Output Urine Total 350 ml 350 ml # Bowel Movements 3 Laboratory Tests 09/27/20 04:25: White Blood Count 25.3*H, Red Blood Count 3.14L, Hemoglobin 9.1L, Hematocrit 27.3L, Mean Corpuscular Volume 87, Mean Corpuscular Hemoglobin 28.9, Mean C orpuscular Hemoglobin Concent 33.3, Red Cell Distribution Width 13.7, Platelet Count 214, Mean Platelet Volume 7.2, Neutrophils (%) (Auto) , Lymphocytes (%) (Auto) , Monocytes (%) (Auto) , Eosinophils (%) (Auto) , Basophils (%) (Auto) , Differential Total Cells Counted 100, Neutrophils % (Manual) 87H, Lymphocytes % (Manual) 6L, Monocytes % (Manual) 4, Eosinophils % (Manual) 0, Basophils % (Manual) 0, Metamyelocytes % 1H, Myelocytes % 2H, Band Neutrophils 0, Platelet Estimate Adequate, Platelet Morphology Normal, Hypochromasia 1+, Prothrombin Time 13.6H, Prothromb Time International Ratio 1.3H, Activated Partial Thromboplast Time 31, Sodium Level 144, Potassium Level 4.3, Chloride Level 111H , Carbon Dioxide Level 32, Anion Gap 1L, Blood Urea Nitrogen 32H, Creatinine 0.8, Estimat Glomerular Filtration Rate > 60, Glucose Level 89, Calcium Level 7.4L, Magnesium Level 2.1, Total Bilirubin 0.4, Aspartate Amino Transf (AST/S GOT) 42H, Alanine Aminotransferase (ALT/SGPT) 59, Alkaline Phosphatase 54, Pro-B-Type Natriuretic Peptide 712H, Total Protein 5.6L, Albumin 1.3L, Globulin 4.3, Albumin/Globulin Ratio 0.3L Height (Feet): 6 Height (Inches): 1.00 Weight (Pounds): 148 Objective General Appearance: WD/WN, confused. orally intubated EENT: normal ENT inspection Neck: normal alignment, supple Cardiovascular: normal rate, regular rhythm Respiratory/Chest: rhonchi - bilaterally. diminished BS Abdomen: normal bowel sounds, non tender, soft, no organomegaly Edema: no edema noted Leg (L), no edema noted Leg (R) Neurologic: reeling operator II-XII grossly normal, responsive, disoriented Lymphatic: normal anterior cervical (L), normal anterior cervical (R), normal posterior cervical (L), normal posterior cervical (R) Assessment/Plan Problem List: (1) PNA (pneumonia) ICD Codes: J18.9 - Pneumonia, unspecified organism SNOMED: 606267254 (2) UTI (urinary tract infection) ICD Codes: N39.0 - Urinary tract infection, site not specified SNOMED: 97293114 (3) Fever ICD Codes: R50.9 - Fever, unspecified SNOMED: 589836823 Qualifiers: Qualified Codes: R50.9 - Fever, unspecified (4) Decubitus skin ulcer ICD Codes: L89.90 - Pressure ulcer of unspecified site, unspecified stage SNOMED: 578997901 (5) Malnutrition ICD Codes: E46 - Unspecified protein-calorie malnutrition SNOMED: 37781221 (6) Severe sepsis ICD Codes: A41.9 - Sepsis, unspecified organism; R65.20 - Severe sepsis without septic shock SNOMED: 33231416 (7) Hematuria ICD Codes: R31.9 - Hematuria, unspecified SNOMED: 26703067 Status: stable Assessment/Plan: cont iv abx per id resp rx and suctioning trach today gt TBD monitor cxr tube feeds monitor residuals prn ivf as needed monitor labs skin care turn q2 critical and guarded poor prognosis Jason Layne MD Sep 27, 2020 15:19
--- NOTE | 2020-09-27 16:16 | NUR ---
NURSE NOTES: LATE ENTRY: PT OBTUNDED. FATIGUED. VSS ON MONITOR. PT TRACH TO VENT SHILEY, STOMA MINIMAL DRAINAGE. ORAL SECRETION PINK TINGED. ORAL PROVIDED. NGT PATENT. TUBE FEEDING JEVITY 1.2 AT 60ML/HR. NO RESIDUALS. ABDOMEN SOFT, NON TENDER. BOWEL SOUNDS HYPOACTIVE. NO BM AT THIS TIME. HERNANDEZ DRAINING LIGHT YULISSA, STRAW COLOR URINE. RT WRIST 22G . D5W AT 75ML/HR. AX TEMP 99. NO S/S OF PAIN. BILATERAL RADIAL AND PEDAL PULSES STRONG. NO JVD. PITTING EDEMA OF EXTREMITIES. PT IN CONTACT ISOLATION. BED ALARM ON, BED LOCKED IN LOW POSITION. SIDE RAILS X 3. WILL CONTINUE TO MONITOR.
--- NOTE | 2020-09-27 17:55 | NUR ---
NURSE NOTES: pt rubbing abdomen, hives are decreasing but some remain on abdomen. Benadryl ivp 25mg, 0.5ml. will continue to monitor pt.
[2020-09-27] MEDS: DiphenhydrAMINE 50mg/ml Inj IVP PRN (17:56)
--- NOTE | 2020-09-27 19:50 | NUR ---
NURSE NOTES: received pt from Radha ULLOA., pt is awake and resting on the bed at this time. pt opens eye without tracking.AOx0. trach S 8 AC 18 TV 500 Fio2 65% P8 O2sat is at 97% without SOB at this time. right NGT noted, feeding (Jevity 1.2 is running at 60ml/hr. no residual noted. andrade cath noted, straw color of urine noted. previous shift informed pt has hematuria. andrade cath is draining well with gravity. skin alternation noted, dressing sites are dry and clean. right Sher 22G IV site intact, clean, and patent. call light within reach. will continue to monitor pt with plan of care. bed at the lowest position, alarmed, and locked.
--- NOTE | 2020-09-27 20:10 | NUR ---
NURSE HAND-OFF REPORT: Latest Vital Signs: Temperature 98.9 , Pulse 94 , B/P 93 /56 , Respiratory Rate 26 , O2 SAT 99 , Mechanical Ventilator, O2 Flow Rate 15.0 . Vital Sign Comment: EKG Rhythm: Sinus Rhythm Rhythm change?: N Notified?: Y -Dr Jacklyn BENITEZ Response: No New Orders Received Latest Schultz Fall Score: 70 Fall Risk: High Risk Safety Measures: Call light Within Reach, Bed Alarm Zone 1, Side Rails Side Rails x3, Bed position Low and Locked. Fall Precautions: Yellow Socks Door Sign Patient Fall Education Report given to CONOR ULLOA
[2020-09-27] MEDS: Tamsulosin 0.4mg cap ORAL SCH (20:41)
[2020-09-27] MEDS: Valproic Acid 250mg/5ml Liquid NG SCH (20:47)
--- NOTE | 2020-09-27 21:09 | NUR ---
NURSE NOTES: pt has high fever. applied ice packs and cooling measure with tyenol. call light within reach .will continue to monitor pt.
--- NOTE | 2020-09-27 23:00 | NUR ---
NURSE NOTES: repositioned pt Q 2hrs. pt is moving alot. call light within reach. no SoB noted at this time.
[2020-09-28] VITALS (24 sets, daily range): BP systolic 98–125; BP diastolic 59–86
--- NOTE | 2020-09-28 00:42 | Cardiology Progress Note ---
Subjective DATE OF SERVICE: Sep 27, 2020 Condition remains critical; prognosis guarded. Remains intubated and on mechanical ventilation; he is s/p uncomplicated trach today. BP less tenuous; now mostly controlled. Monitor: sinus/ sinus tachycardia. ABG: (09/26/20) 7.40/52/78 Objective Last 24 Hour Vital Signs Date Time Temp Pulse Resp B/P (MAP) Pulse Ox O2 Delivery O2 Flow Rate FiO2 09/27/20 23:28 93 26 65 09/27/20 23:00 96 24 106/63 (77) 100 09/27/20 22:00 99 28 95/63 (74) 100 09/27/20 21:39 100.2 09/27/20 21:00 98 29 99/60 (73) 98 09/27/20 20:00 Mechanical Ventilator Mechanical Ventilator 09/27/20 20:00 102.0 94 23 92/56 (68) 99 09/27/20 20:00 65 09/27/20 19:23 92 09/27/20 19:15 89 26 65 09/27/20 19:00 94 26 93/56 (68) 99 09/27/20 18:00 95 24 93/56 (68) 99 09/27/20 17:00 94 23 91/58 (69) 99 09/27/20 16:00 Mechanical Ventilator Mechanical Ventilator 09/27/20 16:00 98.9 93 0 102/63 (76) 100 09/27/20 16:00 90 09/27/20 15:37 90 20 65 09/27/20 15:00 92 18 106/63 (77) 99 09/27/20 14:00 90 18 100/63 (75) 97 09/27/20 13:27 93 12 96/61 (73) 87 09/27/20 13:27 98 20 100 09/27/20 13:26 111 20 100 09/27/20 12:53 65 09/27/20 12:00 Mechanical Ventilator Mechanical Ventilator 09/27/20 12:00 90 09/27/20 12:00 40 09/27/20 12:00 102 22 09/27/20 11:36 100 32 40 09/27/20 11:00 107 29 121/69 (86) 96 09/27/20 10:00 100 23 110/65 (80) 97 09/27/20 09:06 97.0 12/10/20 09:00 100 25 105/54 (71) 97 09/27/20 08:00 100.8 102 27 107/71 (83) 96 09/27/20 08:00 Mechanical Ventilator Mechanical Ventilator 09/27/20 08:00 40 09/27/20 08:00 104 09/27/20 07:56 100 29 40 09/27/20 07:00 105 31 116/73 (87) 96 09/27/20 06:00 105 27 123/75 (91) 96 09/27/20 05:00 103 24 119/66 (83) 98 09/27/20 04:00 103 09/27/20 04:00 40 09/27/20 04:00 Mechanical Ventilator Mechanical Ventilator 09/27/20 04:00 98.4 105 21 108/68 (81) 95 09/27/20 03:00 101 28 129/82 (98) 93 09/27/20 02:30 106 28 40 09/27/20 02:00 105 21 118/76 (90) 96 09/27/20 01:00 77 19 120/67 (84) 96 ROS: no change from my evaluation of 09/10/20. HEENT: Mechanically Ventilated, Thin Trach secretions RHYTHM: NSR, ST LUNGS: bilat. rhonchi and rales CARDIAC: normal rate, regular rhythm, normal S1 and S2 ABDOMEN: normal bowel sounds, soft, other - sacral decub EXTREMITIES: No edema Laboratory Tests Test 09/27/20 04:25 White Blood Count 25.3 K/UL (4.8-10.8) *H Red Blood Count 3.14 M/UL (4.70-6.10) L Hemoglobin 9.1 G/DL (14.2-18.0) L Hematocrit 27.3 % (42.0-52.0) L Mean Corpuscular Volume 87 FL (80-99) Mean Corpuscular Hemoglobin 28.9 PG (27.0-31.0) Mean Corpuscular Hemoglobin Concent 33.3 G/DL (32.0-36.0) Red Cell Distribution Width 13.7 % (11.6-14.8) Platelet Count 214 K/UL (150-450) Mean Platelet Volume 7.2 FL (6.5-10.1) Neutrophils (%) (Auto) % (45.0-75.0) Lymphocytes (%) (Auto) % (20.0-45.0) Monocytes (%) (Auto) % (1.0-10.0) Eosinophils (%) (Auto) % (0.0-3.0) Basophils (%) (Auto) % (0.0-2.0) Differential Total Cells Counted 100 Neutrophils % (Manual) 87 % (45-75) H Lymphocytes % (Manual) 6 % (20-45) L Monocytes % (Manual) 4 % (1-10) Eosinophils % (Manual) 0 % (0-3) Basophils % (Manual) 0 % (0-2) Metamyelocytes % 1 % (0-0) H Myelocytes % 2 % (0-0) H Band Neutrophils 0 % (0-8) Platelet Estimate Adequate Platelet Morphology Normal Hypochromasia 1+ Prothrombin Time 13.6 SEC (9.30-11.50) H Prothromb Time International Ratio 1.3 (0.9-1.1) H Activated Partial Thromboplast Time 31 SEC (23-33) Sodium Level 144 MMOL/L (136-145) Potassium Level 4.3 MMOL/L (3.5-5.1) Chloride Level 111 MMOL/L (98-107) H Carbon Dioxide Level 32 MMOL/L (21-32) Anion Gap 1 mmol/L (5-15) L Blood Urea Nitrogen 32 mg/dL (7-18) H Creatinine 0.8 MG/DL (0.55-1.30) Estimat Glomerular Filtration Rate > 60 mL/min (>60) Glucose Level 89 MG/DL (74-106) Calcium Level 7.4 MG/DL (8.5-10.1) L Magnesium Level 2.1 MG/DL (1.8-2.4) Total Bilirubin 0.4 MG/DL (0.2-1.0) Aspartate Amino Transf (AST/SGOT) 42 U/L (15-37) H Alanine Aminotransferase (ALT/SGPT) 59 U/L (12-78) Alkaline Phosphatase 54 U/L (46-116) Pro-B-Type Natriuretic Peptide 712 pg/mL (0-125) H Total Protein 5.6 G/DL (6.4-8.2) L Albumin 1.3 G/DL (3.4-5.0) L Globulin 4.3 g/dL Albumin/Globulin Ratio 0.3 (1.0-2.7) L Assessment/Plan Assessment/Plan Respiratory failure with hypoxia - s/p tracheostomy Sepsis Leukocytosis Aspiration PNA Recurring shock Diarrhea Dehydration/hypernatremia Acute myocardial ischemia Acute renal failure HC assoc PNA UTI Transaminitis, acute CVA/dementia Paroxysmal sinus bradycardia and tachycardia Acute diastolic CHF Remains CRITICAL & GUARDED Vent support; will need PEG Continue volume support with hypotonic IVfluids until free water deficit corrected Antimicrobials per ID. Replace lytes as needed. F/U liver fxn DVT prophyl Cardiac monitoring Diuresis based on clinical parameters. Madi Rios MD Sep 28, 2020 00:42
--- NOTE | 2020-09-28 01:00 | NUR ---
NURSE NOTES: no SOB noted. pt is sleeping at this time. call light within reach.
--- NOTE | 2020-09-28 02:00 | NUR ---
NURSE NOTES: repositioned pt Q 2hrs, no SOB noted. pt is resting comfortably. call light within reach. will continue to monitor pt
[2020-09-28] MEDS: DiphenhydrAMINE 50mg/ml Inj IVP PRN ×2 (03:58→16:09)
--- NOTE | 2020-09-28 04:00 | NUR ---
NURSE NOTES: cleaned pt , oral care given, clean sheets provided. inserted new IV on eft hand 22G, IV site intact, clean, and patent. will continue to monitor pt.
--- NOTE | 2020-09-28 06:00 | NUR ---
NURSE NOTES: RT at the bedside.
--- NOTE | 2020-09-28 06:44 | General Progress Note ---
Subjective ROS Limited/Unobtainable: Yes Constitutional: Reports: malaise, weakness HEENT: Reports: no symptoms Cardiovascular: Reports: no symptoms Respiratory: Reports: cough, shortness of breath, SOB at rest Gastrointestinal/Abdominal: Reports: difficulty swallowing Genitourinary: Reports: no symptoms Neurologic/Psychiatric: Reports: pre-existing deficit Endocrine: Reports: no symptoms Hematologic/Lymphatic: Reports: anemia Allergies: Coded Allergies: No Known Allergies (Unverified , 09/10/20) All Systems: reviewed and negative except above Subjective no events. s/p trach. having some bleeding from trach.poorly responsive. no distress. am labs pending. Objective Last 24 Hour Vital Signs Date Time Temp Pulse Resp B/P (MAP) Pulse Ox O2 Delivery O2 Flow Rate FiO2 09/28/20 06:00 91 33 108/64 (79) 100 09/28/20 05:00 87 34 106/65 (79) 09/28/20 04:00 65 09/28/20 04:00 Mechanical Ventilator Mechanical Ventilator 09/28/20 04:00 98.7 92 27 108/69 (82) 100 09/28/20 03:10 109 27 65 09/28/20 03:01 93 09/28/20 03:01 93 09/28/20 03:00 93 29 114/74 (87) 99 09/28/20 02:00 86 32 104/65 (78) 100 09/28/20 01:00 88 31 100/60 (73) 100 09/28/20 00:00 65 09/28/20 00:00 Mechanical Ventilator Mechanical Ventilator 09/28/20 00:00 98.5 88 34 100/70 (80) 98 09/27/20 23:28 93 26 65 09/27/20 23:00 96 24 106/63 (77) 100 09/27/20 22:59 95 09/27/20 22:00 99 28 95/63 (74) 100 09/27/20 21:39 100.2 09/27/20 21:00 98 29 99/60 (73) 98 09/27/20 20:00 Mechanical Ventilator Mechanical Ventilator 09/27/20 20:00 102.0 94 23 92/56 (68) 99 09/27/20 20:00 65 09/27/20 19:23 92 09/27/20 19:15 89 26 65 09/27/20 19:00 94 26 93/56 (68) 99 09/27/20 18:00 95 24 93/56 (68) 99 09/27/20 17:00 94 23 91/58 (69) 99 09/27/20 16:00 Mechanical Ventilator Mechanical Ventilator 09/27/20 16:00 98.9 93 0 102/63 (76) 100 09/27/20 16:00 90 09/27/20 15:37 90 20 65 09/27/20 15:00 92 18 106/63 (77) 99 09/27/20 14:00 90 18 100/63 (75) 97 09/27/20 13:27 93 12 96/61 (73) 87 09/27/20 13:27 98 20 100 09/27/20 13:26 111 20 100 09/27/20 12:53 65 09/27/20 12:00 Mechanical Ventilator Mechanical Ventilator 09/27/20 12:00 90 09/27/20 12:00 40 09/27/20 12:00 102 22 09/27/20 11:36 100 32 40 09/27/20 11:00 107 29 121/69 (86) 96 09/27/20 10:00 100 23 110/65 (80) 97 09/27/20 09:06 97.0 09/27/20 09:00 100 25 105/54 (71) 97 09/27/20 08:00 100.8 102 27 107/71 (83) 96 09/27/20 08:00 Mechanical Ventilator Mechanical Ventilator 09/27/20 08:00 40 09/27/20 08:00 104 09/27/20 07:56 100 29 40 09/27/20 07:00 105 31 116/73 (87) 96 Intake and Output 09/27/20 09/28/20 19:00 07:00 Intake Total 1536.666 ml 1410 ml Output Total 420 ml 675 ml Balance 1116.666 ml 735 ml Free Water 300 ml 300 ml IV Total 966.666 ml 450 ml Tube Feeding 240 ml 660 ml Other 30 ml Output Urine Total 420 ml 675 ml Laboratory Tests 09/28/20 06:15: White Blood Count [Pending], Red Blood Count [Pending], Hemoglobin [Pending], Hematocrit [Pending], Mean Corpuscular Volume [Pending], Mean Corpuscular Hemoglobin [Pending], Mean Corpuscular Hemoglobin Concent [Pending], Red Cell Distribution Width [Pending], Platelet Count [Pending], Mean Platelet Volume [Pending], Neutrophils (%) (Auto) [Pending], Lymphocytes (%) (Auto) [Pending], Monocytes (%) (Auto) [Pending], Eosinophils (%) (Auto) [Pending], Basophils (%) (Auto) [Pending], Sodium Level [Pending], Potassium Level [Pending], Chloride Level [Pending], Carbon Dioxide Level [Pending], Blood Urea Nitrogen [Pending], Creatinine [Pending], Estimat Glomerular Filtration Rate [Pending], Glucose Level [Pending], Calcium Level [Pending], Magnesium Level [Pending], Total Bilirubin [Pending], Aspartate Amino Transf (AST/SGOT) [Pending], Alanine Aminotransferase (ALT/SGPT) [Pending], Alkaline Phosphatase [Pending], Pro-B-Type Natriuretic Peptide [Pending], Total Protein [Pending], Albumin [Pending], Globulin [Pending] Height (Feet): 6 Height (Inches): 1.00 Weight (Pounds): 148 Objective General Appearance: WD/WN, confused. EENT: normal ENT inspection. +trach, dressing clean Neck: normal alignment, supple Cardiovascular: normal rate, regular rhythm Respiratory/Chest: rhonchi - bilaterally. diminished BS Abdomen: normal bowel sounds, non tender, soft, no organomegaly Edema: no edema noted Leg (L), no edema noted Leg (R) Neurologic: rn assessment II-XII grossly normal, responsive, disoriented Lymphatic: normal anterior cervical (L), normal anterior cervical (R), normal posterior cervical (L), normal posterior cervical (R) Assessment/Plan Problem List: (1) PNA (pneumonia) ICD Codes: J18.9 - Pneumonia, unspecified organism SNOMED: 185588915 (2) UTI (urinary tract infection) ICD Codes: N39.0 - Urinary tract infection, site not specified SNOMED: 04443522 (3) Fever ICD Codes: R50.9 - Fever, unspecified SNOMED: 462868255 Qualifiers: Qualified Codes: R50.9 - Fever, unspecified (4) Decubitus skin ulcer ICD Codes: L89.90 - Pressure ulcer of unspecified site, unspecified stage SNOMED: 170418556 (5) Malnutrition ICD Codes: E46 - Unspecified protein-calorie malnutrition SNOMED: 11118515 (6) Severe sepsis ICD Codes: A41.9 - Sepsis, unspecified organism; R65.20 - Severe sepsis without septic shock SNOMED: 70486674 (7) Hematuria ICD Codes: R31.9 - Hematuria, unspecified SNOMED: 08916744 Status: stable Assessment/Plan: cont iv abx per id resp rx and suctioning trach care monitor for bleeding follow up pending labs gt TBD monitor cxr tube feeds monitor residuals prn ivf as needed skin care turn q2 critical and guarded poor prognosis Jason Layne MD Sep 28, 2020 06:44
[2020-09-28 06:49] LABS: HEMATOCRIT 23.9 % (42.0-52.0); HEMOGLOBIN 8.4 G/DL (14.2-18.0); MEAN CORPUSCULAR VOLUME 82 FL (80-99); PLATELET COUNT 184 K/UL (150-450); RED BLOOD COUNT 2.93 M/UL (4.70-6.10); RED CELL DISTRIBUTION WIDTH 15.6 % (11.6-14.8); WHITE BLOOD COUNT 18.7 K/UL (4.8-10.8)
--- NOTE | 2020-09-28 06:59 | NUR ---
NURSE NOTES: will wait for call back from Dr. Gutierrez
--- NOTE | 2020-09-28 06:59 | NUR ---
NURSE NOTES: spoke with Desirae Paz from Dr. Gutierrez office, and left message pt had active bleeding in trach site on and off. VS are stable at this time. call light within reach. will continue to monitor pt.
--- NOTE | 2020-09-28 07:08 | NUR ---
NURSE HAND-OFF REPORT: Important event: high fever and bleeding at the trach site. Latest Vital Signs: Temperature 98.7 , Pulse 91 , B/P 108 /64 , Respiratory Rate 33 , O2 SAT 100 , Mechanical Ventilator, O2 Flow Rate 15.0 . Vital Sign Comment: [stable] EKG Rhythm: Sinus Rhythm Rhythm change?: N Notified?: N Response: Latest Schultz Fall Score: 70 Fall Risk: High Risk Safety Measures: Call light Within Reach, Bed Alarm Zone 1, Side Rails Side Rails x3, Bed position Low and Locked. Fall Precautions: Yellow Socks Door Sign Patient Fall Education Report given to [Radha ULLOA].
--- NOTE | 2020-09-28 07:10 | NUR ---
RESPIRATORY NOTE: Received pt on AC 18, 500, +8, 65% fio2. Pt is newly trached with a Shiley 8 tracheostomy tube. Pt obtunded/disoriented. B/S nguyen. diminished, sxn small to moderate amounts of thick, glover-yellow secretions. Vent plugged into red outlet. Alarms are on and audible. [place]ag at bedside. Pt in no apparent distress at this time. Will continue to monitor and follow plan of care.
[2020-09-28 07:14] LABS: ALANINE AMINOTRANSFERASE 60 U/L (12-78); ALBUMIN 1.1 G/DL (3.4-5.0); ALBUMIN/GLOBULIN RATIO 0.3 (1.0-2.7); ALKALINE PHOSPHATASE 54 U/L (46-116); ANION GAP 2 mmol/L (5-15); ASPARTATE AMINO TRANSFERASE 65 U/L (15-37); BILIRUBIN,TOTAL 0.3 MG/DL (0.2-1.0); BLOOD UREA NITROGEN 26 mg/dL (7-18); CARBON DIOXIDE 29 MMOL/L (21-32); CHLORIDE 109 MMOL/L (98-107); CREATININE 0.8 MG/DL (0.55-1.30); POTASSIUM 4.1 MMOL/L (3.5-5.1); SODIUM 140 MMOL/L (136-145)
--- NOTE | 2020-09-28 07:40 | NUR ---
NURSE NOTES: LATE ENTRY: RECEIVED REPORT FROM ARTEMIO MCGILL. PT IN BED, RESTING. RESPONSIVE TO PAIN. PUPILS 4MM SLUGGISH .VSS ON MONITOR. PT TRACHED SHILEY 8. VENT SETTINGS AC 18, 500, 65%, PEEP 8. LUNG SOUNDS RALES. COUGH PRODUCES DRAINAGE FROM TRACH STOMA. MD AWARE. TUBE FEEDING JEVITY 1.2 AT 60ML/HR. ABDOMEN SOFT, NON TENDER. BOWEL SOUNDS HYPOACTIVE. NO BM AT THIS TIME. HERNANDEZ DRAINING LIGHT YULISSA, STRAW COLOR URINE. SKIN- SEE ASSESSMENT. RT FA 20G . D5W AT 75ML/HR. AX TEMP 100.8. NO S/S OF PAIN. BILATERAL RADIAL AND PEDAL PULSES STRONG. NO JVD. PT IN CONTACT ISOLATION. BED ALARM ON, BED LOCKED IN LOW POSITION. SIDE RAILS X 3. WILL CONTINUE TO MONITOR.
--- NOTE | 2020-09-28 08:19 | Urology Progress Note ---
Assessment/Plan Status: stable Assessment/Plan: 1. Gross hematuria. 2. Pyuria and possible UTI. 3. Proteinuria. 4. BPH. 5. Urinary retention. 6. Probable neurogenic bladder. 7. Possible sepsis. monitor clinically maintain andrade, secured to pt's leg hand irrigated and do PRN abx as ordered flomax and proscar cysto electively voiding trial at some point? Subjective Allergies: Coded Allergies: No Known Allergies (Unverified , 09/10/20) Subjective remains on vent, trach 09/27 Objective Last 24 Hour Vital Signs Date Time Temp Pulse Resp B/P (MAP) Pulse Ox O2 Delivery O2 Flow Rate FiO2 09/28/20 07:00 89 30 65 09/28/20 07:00 90 30 105/67 (80) 100 09/28/20 06:00 91 33 108/64 (79) 100 09/28/20 05:00 87 34 106/65 (79) 09/28/20 04:00 65 09/28/20 04:00 Mechanical Ventilator Mechanical Ventilator 09/28/20 04:00 98.7 92 27 108/69 (82) 100 09/28/20 03:10 109 27 65 09/28/20 03:01 93 09/28/20 03:01 93 09/28/20 03:00 93 29 114/74 (87) 99 09/28/20 02:00 86 32 104/65 (78) 100 09/28/20 01:00 88 31 100/60 (73) 100 09/28/20 00:00 65 09/28/20 00:00 Mechanical Ventilator Mechanical Ventilator 09/28/20 00:00 98.5 88 34 100/70 (80) 98 09/27/20 23:28 93 26 65 09/27/20 23:00 96 24 106/63 (77) 100 09/27/20 22:59 95 09/27/20 22:00 99 28 95/63 (74) 100 09/27/20 21:39 100.2 09/27/20 21:00 98 29 99/60 (73) 98 09/27/20 20:00 Mechanical Ventilator Mechanical Ventilator 09/27/20 20:00 102.0 94 23 92/56 (68) 99 09/27/20 20:00 65 09/27/20 19:23 92 09/27/20 19:15 89 26 65 09/27/20 19:00 94 26 93/56 (68) 99 09/27/20 18:00 95 24 93/56 (68) 99 09/27/20 17:00 94 23 91/58 (69) 99 09/27/20 16:00 Mechanical Ventilator Mechanical Ventilator 09/27/20 16:00 98.9 93 0 102/63 (76) 100 09/27/20 16:00 90 09/27/20 15:37 90 20 65 09/27/20 15:00 92 18 106/63 (77) 99 09/27/20 14:00 90 18 100/63 (75) 97 09/27/20 13:27 93 12 96/61 (73) 87 09/27/20 13:27 98 20 100 09/27/20 13:26 111 20 100 09/27/20 12:53 65 09/27/20 12:00 Mechanical Ventilator Mechanical Ventilator 09/27/20 12:00 90 09/27/20 12:00 40 09/27/20 12:00 102 22 09/27/20 11:36 100 32 40 09/27/20 11:00 107 29 121/69 (86) 96 09/27/20 10:00 100 23 110/65 (80) 97 09/27/20 09:06 97.0 09/27/20 09:00 100 25 105/54 (71) 97 Intake and Output 09/27/20 09/28/20 19:00 07:00 Intake Total 1536.666 ml 1827.5 ml Output Total 420 ml 820 ml Balance 1116.666 ml 1007.5 ml Free Water 300 ml 300 ml IV Total 966.666 ml 747.5 ml Tube Feeding 240 ml 780 ml Other 30 ml Output Urine Total 420 ml 820 ml Microbiology Date/Time Source Procedure Growth Status 09/24/20 10:50 Nasopharynx SARS-CoV-2 RdRp Gene Assay - Final Complete 09/18/20 18:30 Stool Clostridium difficile Toxin Assay - Final Complete 09/17/20 12:58 Blood Blood Culture - Final NO GROWTH AFTER 5 DAYS Complete 09/10/20 20:05 Urine,Clean Catch Urine Culture - Final NO GROWTH AFTER 48 HOURS Complete 09/10/20 17:15 Rectum VRE Culture - Final Enterococcus Faecalis - Vre Complete Current Medications Medications (Trade) Dose Ordered Sig/Aleksander Route PRN Reason Start Time Stop Time Status Last Admin Dose Admin Acetaminophen (Tylenol) 650 mg Q4H PRN NG Temp >100.5 09/10/20 23:15 10/10/20 23:14 09/27/20 21:09 Al Hydroxide/Mg Hydroxide (Mylanta) 30 ml Q4H PRN NG Constipation 09/11/20 00:15 10/10/20 23:14 Ascorbic Acid (Vitamin C) 250 mg DAILY NG 09/26/20 09:00 10/18/20 08:59 09/27/20 08:36 Dextrose 1,000 ml @ 75 mls/hr [id number] IV 09/24/20 07:30 10/24/20 07:29 09/28/20 03:58 Diphenhydramine HCl (Benadryl) 25 mg Q6H PRN IVP Itching 09/27/20 12:15 10/27/20 12:14 09/28/20 03:58 Diphenoxylate HCl/ Atropine (Lomotil) 2.5 mg Q4H PRN ORAL Diarrhea 09/20/20 08:15 10/20/20 08:14 Finasteride (Proscar) 5 mg DAILY ORAL 09/13/20 09:00 12/12/20 08:59 09/27/20 08:36 Linezolid (Zyvox) 600 mg EVERY 12 HOURS NG 09/27/20 14:00 10/02/20 13:59 09/27/20 20:41 Lorazepam (Ativan 2mg/ml 1ml) 1 mg Q3H PRN IV For Anxiety/Agitation 09/21/20 12:30 09/28/20 12:29 09/25/20 16:27 Multivitamins (Multivitamins W/ Minerals 15ml Liquid) 15 ml DAILY NG 09/26/20 09:00 10/26/20 08:59 09/27/20 08:36 Ondansetron HCl (Zofran) 4 mg Q6H PRN IVP Nausea & Vomiting 09/10/20 23:15 10/10/20 23:14 Pantoprazole (Protonix) 40 mg DAILY IVP 09/11/20 09:00 10/11/20 08:59 09/27/20 08:36 Tamsulosin HCl (Flomax) 0.4 mg BEDTIME ORAL 09/12/20 21:00 10/12/20 20:59 09/27/20 20:41 Valproic Acid (Depakene) 1,000 mg BEDTIME NG 09/16/20 21:00 10/31/20 20:59 09/27/20 20:47 Vancomycin HCl (Vanco pharmacy to dose) 1 ea DAILY PRN MISC Per rx protocol 09/16/20 08:45 10/16/20 08:44 Zinc Sulfate (Zinc Sulfate) 220 mg DAILY NG 09/26/20 09:00 10/06/20 08:59 09/27/20 08:36 Laboratory Tests 09/28/20 06:15: White Blood Count 18.7H, Red Blood Count 2.93L, Hemoglobin 8.4L, Hematocrit 23.9L, Mean Corpuscular Volume 82, Mean Corpuscular Hemoglobin 28.8, Mean Corpuscular Hemoglobin Concent 35.3, Red Cell Distribution Width 15.6H, Platelet Count 184, Mean Platelet Volume 7.2, Neutrophils (%) (Auto) , Lymphocytes (%) (Auto) , Monocytes (%) (Auto) , Eosinophils (%) (Auto) , Basophils (%) (Auto) , Neutrophils % (Manual) [Pending], Lymphocytes % (Manual) [Pending], Platelet Estimate [Pending], Platelet Morphology [Pending], Sodium Level 140, Potassium Level 4.1, Chloride Level 109H, Carbon Dioxide Level 29, Anion Gap 2L, Blood Urea Nitrogen 26H, Creatinine 0.8, Estimat Glomerular Filtration Rate > 60, Glucose Level 126H, Calcium Level 7.0L, Magnesium Level 2.0, Total Bilirubin 0.3, Aspartate Amino Transf (AST/SGOT) 65H, Alanine Aminotransferase (ALT/SGPT) 60, Alkaline Phosphatase 54, Pro-B-Type Natriuretic Peptide 551H, Total Protein 5.3L, Albumin 1.1L, Globulin 4.2, Albumin/Globulin Ratio 0.3L Height (Feet): 6 Height (Inches): 1.00 Weight (Pounds): 148 Objective exam stable urine clearing Levi Brunson MD Sep 28, 2020 08:19
--- NOTE | 2020-09-28 09:00 | NUR ---
NURSE NOTES: MD. BALLARD HERE TO SEE PT. WAS INFORMED OF TRACH PLACEMENT. FIO2 AT 65%. ODER TO DECREASE TO 50%. WILL CONTINUE TO MONITOR.
[2020-09-28] MEDS: Multivitamins W/Minerals 15 ML UDC NG SCH (09:57)
[2020-09-28] MEDS: Pantoprazole Inj IVP SCH (09:57)
[2020-09-28] MEDS: Ascorbic Acid 500mg tab NG SCH (09:58)
[2020-09-28] MEDS: Zinc Sulfate 220mg NG SCH (09:58)
--- NOTE | 2020-09-28 11:14 | NUR ---
NURSE NOTES: RECEIVED CALL FROM MD. CID REGARDING PLANS FOR PEG THURSDAY.
--- NOTE | 2020-09-28 11:41 | General Progress Note ---
Subjective ROS Limited/Unobtainable: No Allergies: Coded Allergies: No Known Allergies (Unverified , 09/10/20) Objective Last 24 Hour Vital Signs Date Time Temp Pulse Resp B/P (MAP) Pulse Ox O2 Delivery O2 Flow Rate FiO2 09/28/20 11:27 93 31 50 09/28/20 07:00 89 30 65 09/28/20 07:00 90 30 105/67 (80) 100 09/28/20 06:00 91 33 108/64 (79) 100 09/28/20 05:00 87 34 106/65 (79) 09/28/20 04:00 65 09/28/20 04:00 Mechanical Ventilator Mechanical Ventilator 09/28/20 04:00 98.7 92 27 108/69 (82) 100 09/28/20 03:10 109 27 65 09/28/20 03:01 93 09/28/20 03:01 93 09/28/20 03:00 93 29 114/74 (87) 99 09/28/20 02:00 86 32 104/65 (78) 100 09/28/20 01:00 88 31 100/60 (73) 100 09/28/20 00:00 65 09/28/20 00:00 Mechanical Ventilator Mechanical Ventilator 09/28/20 00:00 98.5 88 34 100/70 (80) 98 09/27/20 23:28 93 26 65 09/27/20 23:00 96 24 106/63 (77) 100 09/27/20 22:59 95 09/27/20 22:00 99 28 95/63 (74) 100 09/27/20 21:39 100.2 09/27/20 21:00 98 29 99/60 (73) 98 09/27/20 20:00 Mechanical Ventilator Mechanical Ventilator 09/27/20 20:00 102.0 94 23 92/56 (68) 99 09/27/20 20:00 65 09/27/20 19:23 92 09/27/20 19:15 89 26 65 09/27/20 19:00 94 26 93/56 (68) 99 09/27/20 18:00 95 24 93/56 (68) 99 09/27/20 17:00 94 23 91/58 (69) 99 09/27/20 16:00 Mechanical Ventilator Mechanical Ventilator 09/27/20 16:00 98.9 93 0 102/63 (76) 100 09/27/20 16:00 90 09/27/20 15:37 90 20 65 09/27/20 15:00 92 18 106/63 (77) 99 09/27/20 14:00 90 18 100/63 (75) 97 09/27/20 13:27 93 12 96/61 (73) 87 09/27/20 13:27 98 20 100 09/27/20 13:26 111 20 100 09/27/20 12:53 65 09/27/20 12:00 Mechanical Ventilator Mechanical Ventilator 09/27/20 12:00 90 09/27/20 12:00 40 09/27/20 12:00 102 22 Intake and Output 09/27/20 09/28/20 19:00 07:00 Intake Total 1536.666 ml 1827.5 ml Output Total 420 ml 820 ml Balance 1116.666 ml 1007.5 ml Free Water 300 ml 300 ml IV Total 966.666 ml 747.5 ml Tube Feeding 240 ml 780 ml Other 30 ml Output Urine Total 420 ml 820 ml Laboratory Tests 09/28/20 06:15: White Blood Count 18.7H, Red Blood Count 2.93L, Hemoglobin 8.4L, Hematocrit 23.9L, Mean Corpuscular Volume 82, Mean Corpuscular Hemoglobin 28.8, Mean Corpuscular Hemoglobin Concent 35.3, Red Cell Distribution Width 15.6H, Platelet Count 184, Mean Platelet Volume 7.2, Neutrophils (%) (Auto) , Lymphocytes (%) (Auto) , Monocytes (%) (Auto) , Eosinophils (%) (Auto) , Basophils (%) (Auto) , Differential Total Cells Counted 100, Neutrophils % (Manual) 87H, Lymphocytes % (Manual) 5L, Monocytes % (Manual) 8, Eosinophils % (Manual) 0, Basophils % (Man ual) 0, Band Neutrophils 0, Platelet Estimate Adequate, Platelet Morphology Normal, Hypochromasia 1+, Anisocytosis 1+, Sodium Level 140, Potassium Level 4.1, Chloride Level 109H, Carbon Dioxide Level 29, Anion Gap 2L, Blood Urea Nitrogen 26H, Creatinine 0.8, Estimat Glomerular Filtration Rate > 60, Glucose Level 126H, Calcium Level 7.0L, Magnesium Level 2.0, Total Bilirubin 0.3, Aspartate Amino Transf (AST/SGOT) 65H, Alanine Aminotransferase (ALT/SGPT) 60, Alkaline Phosphatase 54, Pro-B-Type Natriuretic Peptide 551H, Total Protein 5.3L , Albumin 1.1L, Globulin 4.2, Albumin/Globulin Ratio 0.3L Height (Feet): 6 Height (Inches): 1.00 Weight (Pounds): 148 General Appearance: lethargic EENT: normal ENT inspection Neck: supple Cardiovascular: normal rate Respiratory/Chest: decreased breath sounds Abdomen: normal bowel sounds, non tender, soft Extremities: non-tender Assessment/Plan Status: stable Assessment/Plan: Assessment - resp failure - NGT dependent - OBS/Dementia - sepsis - diarrhea, C Diff (-) - Azotemia, resolved - CHF - malnutrition , low albumin - leukocytosis - hypernatremia Recommendations -Vent care / support - abx - supportive care - continue TF - increase free water - abx - will arrange for PEG placement once medically stable and WBC is better -s/p trach -plan PEG next week Hima Escalante MD Sep 28, 2020 11:41
--- NOTE | 2020-09-28 11:49 | Infectious Diseases Prog Note ---
Assessment/Plan Assessment/Plan antibiotics : linezolid A 1. MRSA Pneumonia COVID-19 test is negative. 2. Dementia. 3. Leukocytosis improving 4. Urinary tract infection 5. + blood cultures with coag neg staph likely contaminated 6. respiratory failure s/p tracheostomy 7. allergic reaction to vancomycin P 1. vancomycin iv d/c 2. linezolid started 3. will follow up cultures Subjective ROS Limited/Unobtainable: Yes Allergies: Coded Allergies: No Known Allergies (Unverified , 09/10/20) Objective Last 24 Hour Vital Signs Date Time Temp Pulse Resp B/P (MAP) Pulse Ox O2 Delivery O2 Flow Rate FiO2 09/28/20 11:27 93 31 50 09/28/20 07:00 89 30 65 09/28/20 07:00 90 30 105/67 (80) 100 09/28/20 06:00 91 33 108/64 (79) 100 09/28/20 05:00 87 34 106/65 (79) 09/28/20 04:00 65 09/28/20 04:00 Mechanical Ventilator Mechanical Ventilator 09/28/20 04:00 98.7 92 27 108/69 (82) 100 09/28/20 03:10 109 27 65 09/28/20 03:01 93 09/28/20 03:01 93 09/28/20 03:00 93 29 114/74 (87) 99 09/28/20 02:00 86 32 104/65 (78) 100 09/28/20 01:00 88 31 100/60 (73) 100 09/28/20 00:00 65 09/28/20 00:00 Mechanical Ventilator Mechanical Ventilator 09/28/20 00:00 98.5 88 34 100/70 (80) 98 09/27/20 23:28 93 26 65 09/27/20 23:00 96 24 106/63 (77) 100 09/27/20 22:59 95 09/27/20 22:00 99 28 95/63 (74) 100 09/27/20 21:39 100.2 09/27/20 21:00 98 29 99/60 (73) 98 09/27/20 20:00 Mechanical Ventilator Mechanical Ventilator 09/27/20 20:00 102.0 94 23 92/56 (68) 99 09/27/20 20:00 65 09/27/20 19:23 92 09/27/20 19:15 89 26 65 09/27/20 19:00 94 26 93/56 (68) 99 09/27/20 18:00 95 24 93/56 (68) 99 09/27/20 17:00 94 23 91/58 (69) 99 09/27/20 16:00 Mechanical Ventilator Mechanical Ventilator 09/27/20 16:00 98.9 93 0 102/63 (76) 100 09/27/20 16:00 90 09/27/20 15:37 90 20 65 09/27/20 15:00 92 18 106/63 (77) 99 09/27/20 14:00 90 18 100/63 (75) 97 09/27/20 13:27 93 12 96/61 (73) 87 09/27/20 13:27 98 20 100 09/27/20 13:26 111 20 100 09/27/20 12:53 65 09/27/20 12:00 Mechanical Ventilator Mechanical Ventilator 09/27/20 12:00 90 09/27/20 12:00 40 09/27/20 12:00 102 22 Height (Feet): 6 Height (Inches): 1.00 Weight (Pounds): 148 HEENT: status post trach Respiratory/Chest: lungs clear Cardiovascular: normal rate, regular rhythm, no gallop/murmur Abdomen: soft, non tender Extremities: other - + edema Skin: rash - erythematous decreased Laboratory Tests Test 09/28/20 06:15 White Blood Count 18.7 K/UL (4.8-10.8) H Red Blood Count 2.93 M/UL (4.70-6.10) L Hemoglobin 8.4 G/DL (14.2-18.0) L Hematocrit 23.9 % (42.0-52.0) L Mean Corpuscular Volume 82 FL (80-99) Mean Corpuscular Hemoglobin 28.8 PG (27.0-31.0) Mean Corpuscular Hemoglobin Concent 35.3 G/DL (32.0-36.0) Red Cell Distribution Width 15.6 % (11.6-14.8) H Platelet Count 184 K/UL (150-450) Mean Platelet Volume 7.2 FL (6.5-10.1) Neutrophils (%) (Auto) % (45.0-75.0) Lymphocytes (%) (Auto) % (20.0-45.0) Monocytes (%) (Auto) % (1.0-10.0) Eosinophils (%) (Auto) % (0.0-3.0) Basophils (%) (Auto) % (0.0-2.0) Differential Total Cells Counted 100 Neutrophils % (Manual) 87 % (45-75) H Lymphocytes % (Manual) 5 % (20-45) L Monocytes % (Manual) 8 % (1-10) Eosinophils % (Manual) 0 % (0-3) Basophils % (Manual) 0 % (0-2) Band Neutrophils 0 % (0-8) Platelet Estimate Adequate Platelet Morphology Normal Hypochromasia 1+ Anisocytosis 1+ Sodium Level 140 MMOL/L (136-145) Potassium Level 4.1 MMOL/L (3.5-5.1) Chloride Level 109 MMOL/L (98-107) H Carbon Dioxide Level 29 MMOL/L (21-32) Anion Gap 2 mmol/L (5-15) L Blood Urea Nitrogen 26 mg/dL (7-18) H Creatinine 0.8 MG/DL (0.55-1.30) Estimat Glomerular Filtration Rate > 60 mL/min (>60) Glucose Level 126 MG/DL (74-106) H Calcium Level 7.0 MG/DL (8.5-10.1) L Magnesium Level 2.0 MG/DL (1.8-2.4) Total Bilirubin 0.3 MG/DL (0.2-1.0) Aspartate Amino Transf (AST/SGOT) 65 U/L (15-37) H Alanine Aminotransferase (ALT/SGPT) 60 U/L (12-78) Alkaline Phosphatase 54 U/L (46-116) Pro-B-Type Natriuretic Peptide 551 pg/mL (0-125) H Total Protein 5.3 G/DL (6.4-8.2) L Albumin 1.1 G/DL (3.4-5.0) L Globulin 4.2 g/dL Albumin/Globulin Ratio 0.3 (1.0-2.7) L Current Medications Medications (Trade) Dose Ordered Sig/Aleksander Route PRN Reason Start Time Stop Time Status Last Admin Dose Admin Acetaminophen (Tylenol) 650 mg Q4H PRN NG Temp >100.5 09/10/20 23:15 10/10/20 23:14 09/27/20 21:09 Al Hydroxide/Mg Hydroxide (Mylanta) 30 ml Q4H PRN NG Constipation 09/11/20 00:15 10/10/20 23:14 Ascorbic Acid (Vitamin C) 250 mg DAILY NG 09/26/20 09:00 10/18/20 08:59 09/28/20 09:58 Dextrose 1,000 ml @ 75 mls/hr [id number] IV 09/24/20 07:30 10/24/20 07:29 09/28/20 03:58 Diphenhydramine HCl (Benadryl) 25 mg Q6H PRN IVP Itching 09/27/20 12:15 10/27/20 12:14 09/28/20 03:58 Diphenoxylate HCl/ Atropine (Lomotil) 2.5 mg Q4H PRN ORAL Diarrhea 09/20/20 08:15 10/20/20 08:14 Finasteride (Proscar) 5 mg DAILY ORAL 09/13/20 09:00 12/12/20 08:59 09/28/20 09:58 Linezolid (Zyvox) 600 mg EVERY 12 HOURS NG 09/27/20 14:00 10/02/20 13:59 09/28/20 09:58 Lorazepam (Ativan 2mg/ml 1ml) 1 mg Q3H PRN IV For Anxiety/Agitation 09/21/20 12:30 09/28/20 12:29 09/25/20 16:27 Multivitamins (Multivitamins W/ Minerals 15ml Liquid) 15 ml DAILY NG 09/26/20 09:00 10/26/20 08:59 09/28/20 09:57 Ondansetron HCl (Zofran) 4 mg Q6H PRN IVP Nausea & Vomiting 09/10/20 23:15 10/10/20 23:14 Pantoprazole (Protonix) 40 mg DAILY IVP 09/11/20 09:00 10/11/20 08:59 09/28/20 09:57 Tamsulosin HCl (Flomax) 0.4 mg BEDTIME ORAL 09/12/20 21:00 10/12/20 20:59 09/27/20 20:41 Valproic Acid (Depakene) 1,000 mg BEDTIME NG 09/16/20 21:00 10/31/20 20:59 09/27/20 20:47 Zinc Sulfate (Zinc Sulfate) 220 mg DAILY NG 09/26/20 09:00 10/06/20 08:59 09/28/20 09:58 Martha Collins MD Sep 28, 2020 11:49
--- NOTE | 2020-09-28 12:20 | General Progress Note ---
Subjective ROS Limited/Unobtainable: Yes Allergies: Coded Allergies: No Known Allergies (Unverified , 09/10/20) Subjective on vent contracted trach placed oxygenation noted ICU care reviewed all consultants reviewed and discussed Objective Last 24 Hour Vital Signs Date Time Temp Pulse Resp B/P (MAP) Pulse Ox O2 Delivery O2 Flow Rate FiO2 09/28/20 11:27 93 31 50 09/28/20 07:00 89 30 65 09/28/20 07:00 90 30 105/67 (80) 100 09/28/20 06:00 91 33 108/64 (79) 100 09/28/20 05:00 87 34 106/65 (79) 09/28/20 04:00 65 09/28/20 04:00 Mechanical Ventilator Mechanical Ventilator 09/28/20 04:00 98.7 92 27 108/69 (82) 100 09/28/20 03:10 109 27 65 09/28/20 03:01 93 09/28/20 03:01 93 09/28/20 03:00 93 29 114/74 (87) 99 09/28/20 02:00 86 32 104/65 (78) 100 09/28/20 01:00 88 31 100/60 (73) 100 09/28/20 00:00 65 09/28/20 00:00 Mechanical Ventilator Mechanical Ventilator 09/28/20 00:00 98.5 88 34 100/70 (80) 98 09/27/20 23:28 93 26 65 09/27/20 23:00 96 24 106/63 (77) 100 09/27/20 22:59 95 09/27/20 22:00 99 28 95/63 (74) 100 09/27/20 21:39 100.2 09/27/20 21:00 98 29 99/60 (73) 98 09/27/20 20:00 Mechanical Ventilator Mechanical Ventilator 09/27/20 20:00 102.0 94 23 92/56 (68) 99 09/27/20 20:00 65 09/27/20 19:23 92 09/27/20 19:15 89 26 65 09/27/20 19:00 94 26 93/56 (68) 99 09/27/20 18:00 95 24 93/56 (68) 99 09/27/20 17:00 94 23 91/58 (69) 99 09/27/20 16:00 Mechanical Ventilator Mechanical Ventilator 09/27/20 16:00 98.9 93 0 102/63 (76) 100 09/27/20 16:00 90 09/27/20 15:37 90 20 65 09/27/20 15:00 92 18 106/63 (77) 99 09/27/20 14:00 90 18 100/63 (75) 97 09/27/20 13:27 93 12 96/61 (73) 87 09/27/20 13:27 98 20 100 09/27/20 13:26 111 20 100 09/27/20 12:53 65 Intake and Output 09/27/20 09/28/20 19:00 07:00 Intake Total 1536.666 ml 1827.5 ml Output Total 420 ml 820 ml Balance 1116.666 ml 1007.5 ml Free Water 300 ml 300 ml IV Total 966.666 ml 747.5 ml Tube Feeding 240 ml 780 ml Other 30 ml Output Urine Total 420 ml 820 ml Laboratory Tests 09/28/20 06:15: White Blood Count 18.7H, Red Blood Count 2.93L, Hemoglobin 8.4L, Hematocrit 23.9L, Mean Corpuscular Volume 82, Mean Corpuscular Hemoglobin 28.8, Mean Corpuscular Hemoglobin Concent 35.3, Red Cell Distribution Width 15.6H, Platelet Count 184, Mean Platelet Volume 7.2, Neutrophils (%) (Auto) , Lymphocytes (%) (Auto) , Monocytes (%) (Auto) , Eosinophils (%) (Auto) , Basophils (%) (Auto) , Differential Total Cells Counted 100, Neutrophils % (Manual) 87H, Lymphocytes % (Manual) 5L, Monocytes % (Manual) 8, Eosinophils % (Manual) 0, Basophils % (Manual) 0, Band Neutrophils 0, Platelet Estimate Adequate, Platelet Morphology Normal, Hypochromasia 1+, Anisocytosis 1+, Sodium Level 140, Potassium Level 4.1, Chloride Level 109H, Carbon Dioxide Level 29, Anion Gap 2L, Blood Urea Nitrogen 26H, Creatinine 0.8, Estimat Glomerular Filtration Rate > 60, Glucose Level 126H, Calcium Level 7.0L, Magnesium Level 2.0, Total Bilirubin 0.3, Aspartate Amino Transf (AST/SGOT) 65H, Alanine Aminotransferase (ALT/SGPT) 60, Alkaline Phosphatase 54, Pro-B-Type Natriuretic Peptide 551H, Total Protein 5.3L , Albumin 1.1L, Globulin 4.2, Albumin/Globulin Ratio 0.3L Height (Feet): 6 Height (Inches): 1.00 Weight (Pounds): 148 Objective WDWN chronically ill trach in place feeding tube in place reduced breath sounds bilaterally with scattered rhonchi [id number] without MRG NABS nontender no CCE nonfocal poor LOC Assessment/Plan Status: stable Assessment/Plan: IMPRESSION: 1. Acute renal failure. 2. Hypernatremia. 3. Leukocytosis. 4. Possible sepsis. 5. Hypotension. 6. Dementia. 7. Acute on chronic encephalopathy. 8. bcx staph Epi 9. MRSA colonized 10. acute hypoxemic respiratory failure 11. atelectasis/collapse 12. leukocytosis 13. trach PLAN taper fio2 as able taper PEEP as able ID noted; monitor follow up on antibiotics monitor renal parameters monitor oxygen needs vent support full for now off load correct sodium position change monitor imaging d/w consultants and nursing remains critical trach care GT pending subacute placement medications/laboratory data/nursing notes/ICU care reviewed in detail note reviewed and edited care discussed with RN and RT ICU time spent >40 minutes Patel Villasenor MD Sep 28, 2020 12:20
--- NOTE | 2020-09-28 13:37 | NUR ---
RD ASSESSMENT & RECOMMENDATIONS SEE CARE ACTIVITY FOR COMPLETE ASSESSMENT DAILY ESTIMATED NEEDS: Needs based on Wound, underweight, critical care/ 55kg 25-33 kcals/kg 3498-2332 total kcals 1.25-2 g protein/kg 69-110 g total protein 25-30 mL/kg 6769-7322 total fluid mLs NUTRITION DIAGNOSIS: * Increased kcal/prot needs R/T wound healing and underweight status as evidenced by pt admitted w/ wounds including DTI 2 coccyx and stage 1 @ lt ischium, pt @ 73% IBW w/ low BMI per guidelines. * Swallowing difficulty R/T respiratory status as evidenced by s/p code blue (09/22), orally intubated, s/p trach placement (09/27), on NGT feeds. CURRENT TF:Jevity 1.2 @ 60ml/hr x 24 hrs ENTERAL NUTRITION RECOMMENDATIONS: Jevity 1.2 @ 60ml/hr x 24 hrs to provide 1440ml, 1728kcal, 80g prot, 1160ml free water * Maintain current TF: meets 100% est kcal/prot needs * HOB over 30 degrees/ water flush per MD ADDITIONAL RECOMMENDATIONS: * Calibrated daily bedscale wt Per SNF: HT=70" * Wound healing: TF rec @ goal will provide 100% RDI Continue Vit C and ZnSO4, add Davidson BID via NGT * Monitor lytes, replete as needed (check f/up phos) * Monitor hydration status: Na now wnl, BUN trending down .
--- NOTE | 2020-09-28 15:07 | NUR ---
CARD CLOTHIERMEDICAL SALES CONSULTANT SI: RESP FAILURE S/P TRACH TRACH/VENT DEPENDENT,SEPSIS T. 99.3 HR 89 RR 31 B/P 99/61 AC 16 TV 500 FIO2 50% PEEP 8 WBC 18.7 BUN 26 IS: IVF D5@75ML/HR ZYVOX PROTONIX IV ICU STATUS
--- NOTE | 2020-09-28 16:00 | NUR ---
NURSE NOTES: MD. BREWER HERE TO SEE PT TRACH, BLEEDING IS MINIMAL AND PINK WITH MORE MUCUS THEN BLOOD. NO CONCERN. TRACH CARE NECESSARY. PT CLEANED. LARGE LOOSE BM, BROWN. REPOSITIONED. BENADRYL IVP FOR ITCHING AND HIVES. WILL CONTINUE MONITOR PT.
--- NOTE | 2020-09-28 17:11 | Surgery Progress Note ---
Surgery Progress Note Subjective Procedure Performed tracheostomy Additional Comments oozing around trach site no active bleeding mucus noted lots of secretions Objective Last 24 Hour Vital Signs Date Time Temp Pulse Resp B/P (MAP) Pulse Ox O2 Delivery O2 Flow Rate FiO2 09/28/20 14:00 86 33 101/63 (76) 96 09/28/20 13:00 89 31 99/61 (74) 98 09/28/20 12:00 86 09/28/20 12:00 Mechanical Ventilator Mechanical Ventilator 09/28/20 12:00 99.3 87 30 104/59 (74) 99 09/28/20 12:00 50 09/28/20 11:27 93 31 50 09/28/20 11:00 84 26 113/65 (81) 98 09/28/20 10:00 85 27 98/59 (72) 98 09/28/20 09:00 89 31 107/65 (79) 100 09/28/20 09:00 50 09/28/20 08:00 100.3 90 31 108/64 (79) 100 09/28/20 08:00 65 09/28/20 08:00 Mechanical Ventilator Mechanical Ventilator 09/28/20 08:00 88 09/28/20 07:00 89 30 65 09/28/20 07:00 90 30 105/67 (80) 100 09/28/20 06:00 91 33 108/64 (79) 100 09/28/20 05:00 87 34 106/65 (79) 09/28/20 04:00 65 09/28/20 04:00 Mechanical Ventilator Mechanical Ventilator 09/28/20 04:00 98.7 92 27 108/69 (82) 100 09/28/20 03:10 109 27 65 09/28/20 03:01 93 09/28/20 03:01 93 09/28/20 03:00 93 29 114/74 (87) 99 09/28/20 02:00 86 32 104/65 (78) 100 09/28/20 01:00 88 31 100/60 (73) 100 09/28/20 00:00 65 09/28/20 00:00 Mechanical Ventilator Mechanical Ventilator 09/28/20 00:00 98.5 88 34 100/70 (80) 98 09/27/20 23:28 93 26 65 09/27/20 23:00 96 24 106/63 (77) 100 09/27/20 22:59 95 09/27/20 22:00 99 28 95/63 (74) 100 09/27/20 21:39 100.2 09/27/20 21:00 98 29 99/60 (73) 98 09/27/20 20:00 Mechanical Ventilator Mechanical Ventilator 09/27/20 20:00 102.0 94 23 92/56 (68) 99 09/27/20 20:00 65 09/27/20 19:23 92 09/27/20 19:15 89 26 65 09/27/20 19:00 94 26 93/56 (68) 99 09/27/20 18:00 95 24 93/56 (68) 99 I&O Intake and Output 09/27/20 09/28/20 19:00 07:00 Intake Total 1536.666 ml 1827.5 ml Output Total 420 ml 820 ml Balance 1116.666 ml 1007.5 ml Free Water 300 ml 300 ml IV Total 966.666 ml 747.5 ml Tube Feeding 240 ml 780 ml Other 30 ml Output Urine Total 420 ml 820 ml Dressing: saturated Cardiovascular: RSR Respiratory: decreased breath sounds Abdomen: non-tender, present bowel sounds Extremities: no tenderness, no cyanosis Laboratory Tests Test 09/28/20 06:15 White Blood Count 18.7 K/UL (4.8-10.8) H Red Blood Count 2.93 M/UL (4.70-6.10) L Hemoglobin 8.4 G/DL (14.2-18.0) L Hematocrit 23.9 % (42.0-52.0) L Mean Corpuscular Volume 82 FL (80-99) Mean Corpuscular Hemoglobin 28.8 PG (27.0-31.0) Mean Corpuscular Hemoglobin Concent 35.3 G/DL (32.0-36.0) Red Cell Distribution Width 15.6 % (11.6-14.8) H Platelet Count 184 K/UL (150-450) Mean Platelet Volume 7.2 FL (6.5-10.1) Neutrophils (%) (Auto) % (45.0-75.0) Lymphocytes (%) (Auto) % (20.0-45.0) Monocytes (%) (Auto) % (1.0-10.0) Eosinophils (%) (Auto) % (0.0-3.0) Basophils (%) (Auto) % (0.0-2.0) Differential Total Cells Counted 100 Neutrophils % (Manual) 87 % (45-75) H Lymphocytes % (Manual) 5 % (20-45) L Monocytes % (Manual) 8 % (1-10) Eosinophils % (Manual) 0 % (0-3) Basophils % (Manual) 0 % (0-2) Band Neutrophils 0 % (0-8) Platelet Estimate Adequate Platelet Morphology Normal Hypochromasia 1+ Anisocytosis 1+ Sodium Level 140 MMOL/L (136-145) Potassium Level 4.1 MMOL/L (3.5-5.1) Chloride Level 109 MMOL/L (98-107) H Carbon Dioxide Level 29 MMOL/L (21-32) Anion Gap 2 mmol/L (5-15) L Blood Urea Nitrogen 26 mg/dL (7-18) H Creatinine 0.8 MG/DL (0.55-1.30) Estimat Glomerular Filtration Rate > 60 mL/min (>60) Glucose Level 126 MG/DL (74-106) H Calcium Level 7.0 MG/DL (8.5-10.1) L Magnesium Level 2.0 MG/DL (1.8-2.4) Total Bilirubin 0.3 MG/DL (0.2-1.0) Aspartate Amino Transf (AST/SGOT) 65 U/L (15-37) H Alanine Aminotransferase (ALT/SGPT) 60 U/L (12-78) Alkaline Phosphatase 54 U/L (46-116) Pro-B-Type Natriuretic Peptide 551 pg/mL (0-125) H Total Protein 5.3 G/DL (6.4-8.2) L Albumin 1.1 G/DL (3.4-5.0) L Globulin 4.2 g/dL Albumin/Globulin Ratio 0.3 (1.0-2.7) L Plan Problems: (1) Fever Assessment & Plan: maybe developing pneumonia cont abx pulm input thank you (2) Decubitus skin ulcer Assessment & Plan: Patient identified on admission to have multiple scabs on the left arm. mild open scabs with eschar. no drainage. no significant cellulitis. bruising no bilateral extremities noted. no signs of abuse. likely from agitation Sacral coccygeal noted to have a DTI 4.3X2.5CM. which is dark purple . RECOMMEND-CLEAN WITH SALINE, PAT DRY AND APPLY CALAZINE. COVER WITH OPTIFOAM DRESSING. REPLACE EVERY 3 DAYS OR NEEDED LEFT ISCHIUM- STAGE I PRESSURE ULCER MEASURES 4.5X1.7CM. NON-BLANCHABLE ERYTHEMA. RECOMMEND- APPLY CALAZINE AND COVER WITH OPTIFOAM DRESSING. REPLACE EVERY 7 DAYS. 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 Roman is a 70 year old male BIBA to ED of [facility] [place] on 09/10/2020 around 14:00 due to fever. He was found to be hypotensive 91/55 (67), Temp: 100.0, leukocytosis 20.8k and subsequently transferred to ICU for septic shock. The blood culture is reportedly positive for gram positive cocci. NG tube was placed, KUB confirmed the placement to day. Pt is clinically stable with leukocytosis 20.1, improved BUN and creatine, stable hemodynamic without vasopressor. Findings: Mr. Roman is disoriented. He does ot follow commands at this time. Oral cavity is noted to be dried blood concretion likely from NG trauma. No active bleeding site is seen. Due to his level f alertness, already NG tube is in placed, PO trial was not done at this time. Transferred out ICU last night. He is non on tele. Issues: multiple wounds, s.p balaji/nasal/pharyngeal bleeding with blood culture Gram positive cocci leukocytosis trending down from 20k-20k-16k BUN/Creatine trending down from 93/1.9-79/1.3-54/1.1 Temp: 98.1~98.7, Pulse: 62~72, BP: 105/67~120/48, SPO2 98~100% on 2 liter S: Oral cavity is better condition comparison to yesterday. The mucosa is severely erythema without active bleeding. Limited level of alertness for direct therapy. NG in placed O: 1. Laryngeal palpation to trigger spontaneous cough and swallow: Pt triggered cough with laryngeal palpation. Approximately 5~10 seconds after coughing, he triggered swallow. based on this observation, he presents with copious secretion in pharynx and larynx. He continued to have poor secretion management at laryngeal level at this time. NO PO trial was given due to poor secretion at the level of air way with low level of alertness. A: 1. Probable aspiration of his own secretion with poor ability to cough and swallow 2. Dysphagia P: 1. NPO for now 2. Observe his secretion, and level of alertness for PO readiness. DAILY ESTIMATED NEEDS: Needs based on Wound, underweight/ 55kg 30-35 kcals/kg 4490-6178 total kcals 1.25-2 g protein/kg 69-110 g total protein 25-30 mL/kg 4583-9786 total fluid mLs NUTRITION DIAGNOSIS: Increased kcal/prot needs R/T wound healing and underweight status as evidenced by pt admitted w/ wounds including DTI 2 coccyx and stage 1 @ lt ischium, pt @ 73% IBW w/ low BMI per guidelines, s/p NGT insertion, on NGT feeds. CURRENT TF:Jevity 1.2 @ 50ml/hr x 24 hrs ENTERAL NUTRITION RECOMMENDATIONS: Jevity 1.2 @ 60ml/hr x 24 hrs to provide 1440ml, 1728kcal, 80g prot, 1160ml free water * As medically appropriate, increase goal rate to 60ml/hr x 24 hrs to meet 100% est kcal/prot needs * HOB over 30 degrees/ without IVF, H2O flush of 100ml q 8hrs ADDITIONAL RECOMMENDATIONS: * Calibrated daily bedscale wt Per SNF: HT=70" * Wound healing: TF rec @ goal will provide 100% RDI add Vit C 250mg QD, ZnSO4 220mg QD x 10days, Davidson BID via NGT * Monitor BGs, need for NISS w/ TF * Monitor lytes, replete as needed- high risk for refeeding syndrome -> check f/up phos and mag (4) Severe sepsis Assessment & Plan: will likely need trach and peg. patient needs protected airway and nutrition full code no family and unable to consent medically necessary. will plan soon (5) Open upper arm wound (6) Hematuria Assessment & Plan: as per urology Aubrey Gutierrez Sep 28, 2020 17:11
[2020-09-28] MEDS ORDERED: Dyna-Hex 2% Top Sol 2oz TOPIC SCH (20:00)
--- NOTE | 2020-09-28 20:00 | NUR ---
NURSE NOTES: received pt from Radha ULLOA., pt is awake and resting on the bed at this time. AOx0, pt opens eye and no tracking. trach S 8 AC 18 TV 500 Fio2 65% P8 O2sat is at 96% without SOB at this time. right NGT noted, feeding: Jevity 1.2 is running at 60ml/hr. no residual noted. andrade cath noted, straw color of urine noted. andrade cath is draining well with gravity without bleeding noted. skin alternation noted, dressing sites are dry and clean. left hand 22G and right Sher 22G IV site intact, clean, and patent. call light within reach. will continue to monitor pt with plan of care. bed at the lowest position, alarmed, and locked.
--- NOTE | 2020-09-28 20:22 | NUR ---
NURSE HAND-OFF REPORT: Latest Vital Signs: Temperature 98.8 , Pulse 97 , B/P 116 /67 , Respiratory Rate 38 , O2 SAT 99 , Mechanical Ventilator, O2 Flow Rate 15.0 . Vital Sign Comment: EKG Rhythm: Sinus Rhythm Rhythm change?: N Notified?: Y -Dr Jacklyn BENITEZ Response: No New Orders Received Latest Schultz Fall Score: 70 Fall Risk: High Risk Safety Measures: Call light Within Reach, Bed Alarm Zone 1, Side Rails Side Rails x3, Bed position Low and Locked. Fall Precautions: Yellow Socks Door Sign Patient Fall Education Report given to CONOR Terrazas
[2020-09-28] MEDS: Tamsulosin 0.4mg cap ORAL SCH (21:31)
[2020-09-28] MEDS: Valproic Acid 250mg/5ml Liquid NG SCH (21:31)
--- NOTE | 2020-09-28 22:00 | NUR ---
NURSE NOTES: changed pt Q 2hrs, oral suctioned. no SOB noted. call light within reach. will continue to monitor pt.
[2020-09-29] VITALS (20 sets, daily range): BP systolic 102–135; BP diastolic 67–99
--- NOTE | 2020-09-29 | NUR ---
NURSE NOTES: provided oral care, repositioned Q 2hrs. no BM noted at this time. trach site intact, clean, and patent. no residual noted. elevated temp noted, will apply cooling measures with medicine. call light within reach.
--- NOTE | 2020-09-29 01:13 | Cardiology Progress Note ---
Subjective DATE OF SERVICE: Sep 28, 2020 Condition remains critical; prognosis guarded. Remains on vent via trach. BP less tenuous; now mostly controlled. Monitor: sinus/ sinus tachycardia. ABG: (09/26/20) 7.40/52/78 Objective Last 24 Hour Vital Signs Date Time Temp Pulse Resp B/P (MAP) Pulse Ox O2 Delivery O2 Flow Rate FiO2 09/29/20 00:00 50 09/29/20 00:00 Mechanical Ventilator Mechanical Ventilator 09/28/20 23:12 107 36 40 09/28/20 23:00 108 34 124/73 (90) 93 09/28/20 22:00 108 32 124/74 (91) 93 09/28/20 21:00 103 34 125/76 (92) 96 09/28/20 20:00 50 09/28/20 20:00 Mechanical Ventilator Mechanical Ventilator 09/28/20 20:00 99.5 91 32 112/67 (82) 100 09/28/20 19:28 92 09/28/20 19:00 97 38 116/67 (83) 99 09/28/20 18:51 106 31 40 09/28/20 18:00 91 32 110/68 (82) 100 09/28/20 17:00 85 34 105/66 (79) 98 09/28/20 16:00 50 09/28/20 16:00 97 09/28/20 16:00 98.8 101 35 123/86 (98) 95 09/28/20 16:00 Mechanical Ventilator Mechanical Ventilator 09/28/20 15:25 107 32 50 09/28/20 15:00 99 32 115/75 (88) 93 09/28/20 14:00 86 33 101/63 (76) 96 09/28/20 13:00 89 31 99/61 (74) 98 09/28/20 12:00 86 09/28/20 12:00 Mechanical Ventilator Mechanical Ventilator 09/28/20 12:00 99.3 87 30 104/59 (74) 99 09/28/20 12:00 50 09/28/20 11:27 93 31 50 09/28/20 11:00 84 26 113/65 (81) 98 09/28/20 10:00 85 27 98/59 (72) 98 09/28/20 09:00 89 31 107/65 (79) 100 09/28/20 09:00 50 09/28/20 08:00 100.3 90 31 108/64 (79) 100 09/28/20 08:00 65 09/28/20 08:00 Mechanical Ventilator Mechanical Ventilator 09/28/20 08:00 88 09/28/20 07:00 89 30 65 09/28/20 07:00 90 30 105/67 (80) 100 09/28/20 06:00 91 33 108/64 (79) 100 09/28/20 05:00 87 34 106/65 (79) 09/28/20 04:00 65 09/28/20 04:00 Mechanical Ventilator Mechanical Ventilator 09/28/20 04:00 98.7 92 27 108/69 (82) 100 09/28/20 03:10 109 27 65 09/28/20 03:01 93 09/28/20 03:01 93 09/28/20 03:00 93 29 114/74 (87) 99 09/28/20 02:00 86 32 104/65 (78) 100 ROS: no change from my evaluation of 09/10/20. HEENT: Mechanically Ventilated, Thin Trach secretions RHYTHM: NSR, ST LUNGS: bilat. rhonchi and rales CARDIAC: normal rate, regular rhythm, normal S1 and S2 ABDOMEN: normal bowel sounds, soft, other - sacral decub EXTREMITIES: No edema Laboratory Tests Test 09/28/20 06:15 White Blood Count 18.7 K/UL (4.8-10.8) H Red Blood Count 2.93 M/UL (4.70-6.10) L Hemoglobin 8.4 G/DL (14.2-18.0) L Hematocrit 23.9 % (42.0-52.0) L Mean Corpuscular Volume 82 FL (80-99) Mean Corpuscular Hemoglobin 28.8 PG (27.0-31.0) Mean Corpuscular Hemoglobin Concent 35.3 G/DL (32.0-36.0) Red Cell Distribution Width 15.6 % (11.6-14.8) H Platelet Count 184 K/UL (150-450) Mean Platelet Volume 7.2 FL (6.5-10.1) Neutrophils (%) (Auto) % (45.0-75.0) Lymphocytes (%) (Auto) % (20.0-45.0) Monocytes (%) (Auto) % (1.0-10.0) Eosinophils (%) (Auto) % (0.0-3.0) Basophils (%) (Auto) % (0.0-2.0) Differential Total Cells Counted 100 Neutrophils % (Manual) 87 % (45-75) H Lymphocytes % (Manual) 5 % (20-45) L Monocytes % (Manual) 8 % (1-10) Eosinophils % (Manual) 0 % (0-3) Basophils % (Manual) 0 % (0-2) Band Neutrophils 0 % (0-8) Platelet Estimate Adequate Platelet Morphology Normal Hypochromasia 1+ Anisocytosis 1+ Sodium Level 140 MMOL/L (136-145) Potassium Level 4.1 MMOL/L (3.5-5.1) Chloride Level 109 MMOL/L (98-107) H Carbon Dioxide Level 29 MMOL/L (21-32) Anion Gap 2 mmol/L (5-15) L Blood Urea Nitrogen 26 mg/dL (7-18) H Creatinine 0.8 MG/DL (0.55-1.30) Estimat Glomerular Filtration Rate > 60 mL/min (>60) Glucose Level 126 MG/DL (74-106) H Calcium Level 7.0 MG/DL (8.5-10.1) L Magnesium Level 2.0 MG/DL (1.8-2.4) Total Bilirubin 0.3 MG/DL (0.2-1.0) Aspartate Amino Transf (AST/SGOT) 65 U/L (15-37) H Alanine Aminotransferase (ALT/SGPT) 60 U/L (12-78) Alkaline Phosphatase 54 U/L (46-116) Pro-B-Type Natriuretic Peptide 551 pg/mL (0-125) H Total Protein 5.3 G/DL (6.4-8.2) L Albumin 1.1 G/DL (3.4-5.0) L Globulin 4.2 g/dL Albumin/Globulin Ratio 0.3 (1.0-2.7) L Assessment/Plan Assessment/Plan Respiratory failure with hypoxia - s/p tracheostomy Sepsis Leukocytosis Aspiration PNA Recurring shock Diarrhea Dehydration/hypernatremia corrected Acute myocardial ischemia Acute renal failure HC assoc PNA UTI Transaminitis, acute CVA/dementia Paroxysmal sinus bradycardia and tachycardia Acute diastolic CHF Remains CRITICAL & GUARDED Vent support with trach care. Maintenance IVF hydration while NPO Antimicrobials per ID. Replace lytes as needed. PEG planned DVT prophyl Cardiac monitoring Diuresis based on clinical parameters. Madi Rios MD Sep 29, 2020 01:13
[2020-09-29] MEDS: DiphenhydrAMINE 50mg/ml Inj IVP PRN ×2 (01:22→21:18)
--- NOTE | 2020-09-29 01:22 | NUR ---
NURSE NOTES: pt is itching and temp is 100.5 so administrated Benadryl, tyenol, and ice pack applied.
[2020-09-29] MEDS: Acetaminophen 650mg/20.3ml NG PRN ×2 (01:23→15:54)
[2020-09-29] MEDS: D5 1/2NS w/KCL 10meq 1,000 ML IV SCH ×2 (02:08→14:35)
--- NOTE | 2020-09-29 02:20 | NUR ---
NURSE NOTES: repositioned pt. no SOB noted. O2 sat is 99% at this time. call light within reach,
--- NOTE | 2020-09-29 04:10 | NUR ---
NURSE NOTES: cleaned pt, oral care provided. large liquid Brown BM noted call light within reach. will continue to monitor pt.
--- NOTE | 2020-09-29 06:05 | NUR ---
NURSE NOTES: emptied urine bag, repositioned pt Q 2 hrs. call ligtht within reach.. will continue to monitor pt.
[2020-09-29 07:11] LABS: HEMATOCRIT 25.1 % (42.0-52.0); HEMOGLOBIN 8.5 G/DL (14.2-18.0); MEAN CORPUSCULAR VOLUME 83 FL (80-99); PLATELET COUNT 174 K/UL (150-450); RED BLOOD COUNT 3.01 M/UL (4.70-6.10); WHITE BLOOD COUNT 12.9 K/UL (4.8-10.8)
--- NOTE | 2020-09-29 07:16 | NUR ---
NURSE HAND-OFF REPORT: Latest Vital Signs: Temperature 99.5 , Pulse 83 , B/P 106 /70 , Respiratory Rate 32 , O2 SAT 98 , Mechanical Ventilator, O2 Flow Rate 15.0 . Vital Sign Comment: [stable] EKG Rhythm: Sinus Rhythm Rhythm change?: N Notified?: N Response: Latest Schultz Fall Score: 70 Fall Risk: High Risk Safety Measures: Call light Within Reach, Bed Alarm Zone 1, Side Rails Side Rails x3, Bed position Low and Locked. Fall Precautions: Yellow Socks Door Sign Patient Fall Education Report given to [Bernadine RN].
[2020-09-29 08:07] LABS: ALANINE AMINOTRANSFERASE 54 U/L (12-78); ALBUMIN/GLOBULIN RATIO 0.2 (1.0-2.7); ALKALINE PHOSPHATASE 60 U/L (46-116); ANION GAP 4 mmol/L (5-15); ASPARTATE AMINO TRANSFERASE 55 U/L (15-37); BILIRUBIN,TOTAL 0.3 MG/DL (0.2-1.0); BLOOD UREA NITROGEN 21 mg/dL (7-18); CALCIUM 7.1 MG/DL (8.5-10.1); CARBON DIOXIDE 30 MMOL/L (21-32); CHLORIDE 107 MMOL/L (98-107); CREATININE 0.9 MG/DL (0.55-1.30); POTASSIUM 3.8 MMOL/L (3.5-5.1); SODIUM 141 MMOL/L (136-145)
--- NOTE | 2020-09-29 08:26 | General Progress Note ---
Subjective ROS Limited/Unobtainable: No Allergies: Coded Allergies: VANCOMYCIN (Verified Allergy, Severe, hive, 09/28/20) Objective Last 24 Hour Vital Signs Date Time Temp Pulse Resp B/P (MAP) Pulse Ox O2 Delivery O2 Flow Rate FiO2 09/29/20 07:00 83 32 106/70 (82) 98 09/29/20 06:00 78 25 105/68 (80) 96 09/29/20 05:00 80 27 104/69 (81) 99 09/29/20 04:00 Mechanical Ventilator Mechanical Ventilator 09/29/20 04:00 99.5 92 23 104/68 (80) 98 09/29/20 04:00 50 09/29/20 03:00 107 35 115/73 (87) 97 09/29/20 02:59 106 09/29/20 02:59 106 09/29/20 02:58 106 33 40 09/29/20 02:00 103 34 115/70 (85) 97 09/29/20 01:53 99.5 09/29/20 01:00 98 34 107/68 (81) 95 09/29/20 00:00 50 09/29/20 00:00 100.5 100 35 102/67 (79) 96 09/29/20 00:00 Mechanical Ventilator Mechanical Ventilator 09/28/20 23:19 107 09/28/20 23:12 107 36 40 09/28/20 23:00 108 34 124/73 (90) 93 09/28/20 22:00 108 32 124/74 (91) 93 09/28/20 21:00 103 34 125/76 (92) 96 09/28/20 20:00 50 09/28/20 20:00 Mechanical Ventilator Mechanical Ventilator 09/28/20 20:00 99.5 91 32 112/67 (82) 100 09/28/20 19:28 92 09/28/20 19:00 97 38 116/67 (83) 99 09/28/20 18:51 106 31 40 09/28/20 18:00 91 32 110/68 (82) 100 09/28/20 17:00 85 34 105/66 (79) 98 09/28/20 16:00 50 09/28/20 16:00 97 09/28/20 16:00 98.8 101 35 123/86 (98) 95 09/28/20 16:00 Mechanical Ventilator Mechanical Ventilator 09/28/20 15:25 107 32 50 09/28/20 15:00 99 32 115/75 (88) 93 09/28/20 14:00 86 33 101/63 (76) 96 09/28/20 13:00 89 31 99/61 (74) 98 09/28/20 12:00 86 09/28/20 12:00 Mechanical Ventilator Mechanical Ventilator 09/28/20 12:00 99.3 87 30 104/59 (74) 99 09/28/20 12:00 50 09/28/20 11:27 93 31 50 09/28/20 11:00 84 26 113/65 (81) 98 09/28/20 10:00 85 27 98/59 (72) 98 09/28/20 09:00 89 31 107/65 (79) 100 09/28/20 09:00 50 Intake and Output 09/28/20 09/29/20 19:00 07:00 Intake Total 1710 ml 1845 ml Output Total 790 ml 790 ml Balance 920 ml 1055 ml Free Water 300 ml 300 ml IV Total 750 ml 825 ml Tube Feeding 660 ml 720 ml Output Urine Total 790 ml 790 ml # Bowel Movements 2 4 Laboratory Tests 09/29/20 06:40: White Blood Count 12.9H, Red Blood Count 3.01L, Hemoglobin 8.5L, Hematocrit 25.1L, Mean Corpuscular Volume 83, Mean Corpuscular Hemoglobin 28.3, Mean Corpuscular Hemoglobin Concent 34.0, Red Cell Distribution Width 14.0, Platelet Count 174, Mean Platelet Volume 7.5, Neutrophils (%) (Auto) , Lymphocytes (%) (Auto) , Monocytes (%) (Auto) , Eosinophils (%) (Auto) , Basophils (%) (Auto) , Neutrophils % (Manual) [Pending], Lymphocytes % (Manual) [Pending], Platelet Estimate [Pending], Platelet Morphology [Pending], Sodium Level 141, Potassium Level 3.8, Chloride Level 107, Carbon Dioxide Level 30, Anion Gap 4L, Blood Urea Nitrogen 21H, Creatinine 0.9, Estimat Glomerular Filtration Rate > 60, Glucose Level 146H, Calcium Level 7.1L, Total Bilirubin 0.3, Aspartate Amino Transf (AST/SGOT) 55H, Alanine Aminotransferase (ALT/SGPT) 54, Alkaline Phosphatase 60, Total Protein 5.3L, Albumin 1.0L, Globulin 4.3, Albumin/Globulin Ratio 0.2L Height (Feet): 6 Height (Inches): 1.00 Weight (Pounds): 148 General Appearance: no apparent distress EENT: normal ENT inspection Neck: supple Cardiovascular: normal rate Respiratory/Chest: decreased breath sounds Abdomen: hypoactive bowel sounds Extremities: non-tender Assessment/Plan Status: stable Assessment/Plan: Assessment - resp failure - NGT dependent - OBS/Dementia - sepsis - diarrhea, C Diff (-) - Azotemia, resolved - CHF - malnutrition , low albumin - leukocytosis - hypernatremia Recommendations -Vent care / support - abx - supportive care - continue TF - increase free water - abx - will arrange for PEG placement once medically stable and WBC is better -s/p trach -plan PEG this week Hima Escalante MD Sep 29, 2020 08:26
[2020-09-29] MEDS: Zinc Sulfate 220mg NG SCH (08:45)
[2020-09-29] MEDS: Multivitamins W/Minerals 15 ML UDC NG SCH (08:45)
[2020-09-29] MEDS: Ascorbic Acid 500mg tab NG SCH (08:45)
[2020-09-29] MEDS: Pantoprazole Inj IVP SCH (08:45)
--- NOTE | 2020-09-29 09:30 | NUR ---
NURSE NOTES: Received pt from ARTEMIO Colindres. Pt VS stable at this time. Low sinus tachycardia on the potline monitor. pt restless and fidgeting with right hand but not pulling on medical devices. Pt opens eyes to voice. pt does not track or follow commands. Pupils sluggish and 4-5 in size. Pt head turned to the left. Pt trach to vent. Tolerating setting. FiO2 40%.Right nares NGT noted. NGT appears to have been pulled out slightly. NGT re-inserted to 70 at the nares. Verified with auscultation. Jevity 1.2 running at 60mL/hr with no residual noted. Rae in place. yellow output noted. Bilateral arms ecchymosis noted. Generalized edema +1. Bilateral arm edema +2-3. Foot edema +2. Pt repositioned and oral care done. Pt warm to touch. Temp WNL. Will continue to monitor.
--- NOTE | 2020-09-29 09:35 | Urology Progress Note ---
Assessment/Plan Status: stable Assessment/Plan: 1. Gross hematuria. 2. Pyuria and possible UTI. 3. Proteinuria. 4. BPH. 5. Urinary retention. 6. Probable neurogenic bladder. 7. Possible sepsis. monitor clinically maintain andrade, secured to pt's leg hand irrigated and do PRN abx as ordered flomax and proscar cysto electively voiding trial at some point? Subjective Allergies: Coded Allergies: VANCOMYCIN (Verified Allergy, Severe, hive, 09/28/20) Subjective remains on vent, trach 09/27 Objective Last 24 Hour Vital Signs Date Time Temp Pulse Resp B/P (MAP) Pulse Ox O2 Delivery O2 Flow Rate FiO2 09/29/20 07:00 83 32 106/70 (82) 98 09/29/20 06:00 78 25 105/68 (80) 96 09/29/20 05:00 80 27 104/69 (81) 99 09/29/20 04:00 Mechanical Ventilator Mechanical Ventilator 09/29/20 04:00 99.5 92 23 104/68 (80) 98 09/29/20 04:00 50 09/29/20 03:00 107 35 115/73 (87) 97 09/29/20 02:59 106 09/29/20 02:59 106 09/29/20 02:58 106 33 40 09/29/20 02:00 103 34 115/70 (85) 97 09/29/20 01:53 99.5 09/29/20 01:00 98 34 107/68 (81) 95 09/29/20 00:00 50 09/29/20 00:00 100.5 100 35 102/67 (79) 96 09/29/20 00:00 Mechanical Ventilator Mechanical Ventilator 09/28/20 23:19 107 09/28/20 23:12 107 36 40 09/28/20 23:00 108 34 124/73 (90) 93 09/28/20 22:00 108 32 124/74 (91) 93 09/28/20 21:00 103 34 125/76 (92) 96 09/28/20 20:00 50 09/28/20 20:00 Mechanical Ventilator Mechanical Ventilator 09/28/20 20:00 99.5 91 32 112/67 (82) 100 09/28/20 19:28 92 09/28/20 19:00 97 38 116/67 (83) 99 09/28/20 18:51 106 31 40 09/28/20 18:00 91 32 110/68 (82) 100 09/28/20 17:00 85 34 105/66 (79) 98 09/28/20 16:00 50 09/28/20 16:00 97 09/28/20 16:00 98.8 101 35 123/86 (98) 95 09/28/20 16:00 Mechanical Ventilator Mechanical Ventilator 09/28/20 15:25 107 32 50 09/28/20 15:00 99 32 115/75 (88) 93 09/28/20 14:00 86 33 101/63 (76) 96 09/28/20 13:00 89 31 99/61 (74) 98 09/28/20 12:00 86 09/28/20 12:00 Mechanical Ventilator Mechanical Ventilator 09/28/20 12:00 99.3 87 30 104/59 (74) 99 09/28/20 12:00 50 09/28/20 11:27 93 31 50 09/28/20 11:00 84 26 113/65 (81) 98 09/28/20 10:00 85 27 98/59 (72) 98 Intake and Output 09/28/20 09/29/20 19:00 07:00 Intake Total 1710 ml 1845 ml Output Total 790 ml 790 ml Balance 920 ml 1055 ml Free Water 300 ml 300 ml IV Total 750 ml 825 ml Tube Feeding 660 ml 720 ml Output Urine Total 790 ml 790 ml # Bowel Movements 2 4 Microbiology Date/Time Source Procedure Growth Status 09/24/20 10:50 Nasopharynx SARS-CoV-2 RdRp Gene Assay - Final Complete 09/18/20 18:30 Stool Clostridium difficile Toxin Assay - Final Complete 09/17/20 12:58 Blood Blood Culture - Final NO GROWTH AFTER 5 DAYS Complete 09/10/20 20:05 Urine,Clean Catch Urine Culture - Final NO GROWTH AFTER 48 HOURS Complete 09/10/20 17:15 Rectum VRE Culture - Final Enterococcus Faecalis - Vre Complete Current Medications Medications (Trade) Dose Ordered Sig/Aleksander Route PRN Reason Start Time Stop Time Status Last Admin Dose Admin Acetaminophen (Tylenol) 650 mg Q4H PRN NG Temp >100.5 09/10/20 23:15 10/10/20 23:14 09/29/20 01:23 Al Hydroxide/Mg Hydroxide (Mylanta) 30 ml Q4H PRN NG Constipation 09/11/20 00:15 10/10/20 23:14 Ascorbic Acid (Vitamin C) 250 mg DAILY NG 09/26/20 09:00 10/18/20 08:59 09/29/20 08:45 Dextrose/ Electrolytes 1,000 ml @ 75 mls/hr [id number] IV 09/29/20 01:30 10/29/20 01:29 09/29/20 02:08 Diphenhydramine HCl (Benadryl) 25 mg Q6H PRN IVP Itching 09/27/20 12:15 10/27/20 12:14 09/29/20 01:22 Diphenoxylate HCl/ Atropine (Lomotil) 2.5 mg Q4H PRN ORAL Diarrhea 09/20/20 08:15 10/20/20 08:14 Finasteride (Proscar) 5 mg DAILY ORAL 09/13/20 09:00 12/12/20 08:59 09/29/20 08:45 Linezolid (Zyvox) 600 mg EVERY 12 HOURS NG 09/27/20 14:00 10/02/20 13:59 09/29/20 08:45 Multivitamins (Multivitamins W/ Minerals 15ml Liquid) 15 ml DAILY NG 09/26/20 09:00 10/26/20 08:59 09/29/20 08:45 Ondansetron HCl (Zofran) 4 mg Q6H PRN IVP Nausea & Vomiting 09/10/20 23:15 10/10/20 23:14 Pantoprazole (Protonix) 40 mg DAILY IVP 09/11/20 09:00 10/11/20 08:59 09/29/20 08:45 Tamsulosin HCl (Flomax) 0.4 mg BEDTIME ORAL 09/12/20 21:00 10/12/20 20:59 09/28/20 21:31 Valproic Acid (Depakene) 1,000 mg BEDTIME NG 09/16/20 21:00 10/31/20 20:59 09/28/20 21:31 Zinc Sulfate (Zinc Sulfate) 220 mg DAILY NG 09/26/20 09:00 10/06/20 08:59 09/29/20 08:45 Laboratory Tests 09/29/20 06:40: White Blood Count 12.9H, Red Blood Count 3.01L, Hemoglobin 8.5L, Hematocrit 25.1L, Mean Corpuscular Volume 83, Mean Corpuscular Hemoglobin 28.3, Mean Corpuscular Hemoglobin Concent 34.0, Red Cell Distribution Width 14.0, Platelet Count 174, Mean Platelet Volume 7.5, Neutrophils (%) (Auto) , Lymphocytes (%) (Auto) , Monocytes (%) (Auto) , Eosinophils (%) (Auto) , Basophils (%) (Auto) , Neutrophils % (Manual) [Pending], Lymphocytes % (Manual) [Pending], Platelet Estimate [Pending], Platelet Morphology [Pending], Sodium Level 141, Potassium Level 3.8, Chloride Level 107, Carbon Dioxide Level 30, Anion Gap 4L, Blood Urea Nitrogen 21H, Creatinine 0.9, Estimat Glomerular Filtration Rate > 60, Glucose Level 146H, Calcium Level 7.1L, Total Bilirubin 0.3, Aspartate Amino Transf (AST/SGOT) 55H, Alanine Aminotransferase (ALT/SGPT) 54, Alkaline Phosphatase 60, Total Protein 5.3L, Albumin 1.0L, Globulin 4.3, Albumin/Globulin Ratio 0.2L Height (Feet): 6 Height (Inches): 1.00 Weight (Pounds): 148 Objective exam stable urine clearing Levi Brunson MD Sep 29, 2020 09:35
--- NOTE | 2020-09-29 10:45 | Infectious Diseases Prog Note ---
Assessment/Plan Assessment/Plan A 1. Pneumonia with MRSA COVID19 test is negative. 2. Dementia. 3. Leukocytosis 4. Urinary tract infection 5. 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 BPH P 1. continue Zyvox 2. Will f/u cultures Subjective ROS Limited/Unobtainable: Yes Gastrointestinal/Abdominal: Reports: diarrhea Neurologic: Reports: confusion, other - on restraint Allergies: Coded Allergies: VANCOMYCIN (Verified Allergy, Severe, hive, 09/28/20) Objective Last 24 Hour Vital Signs Date Time Temp Pulse Resp B/P (MAP) Pulse Ox O2 Delivery O2 Flow Rate FiO2 09/29/20 10:34 98.6 09/29/20 10:00 99.2 100 29 129/99 (109) 99 09/29/20 09:00 90 29 108/72 (84) 99 09/29/20 08:00 80 09/29/20 08:00 80 28 109/70 (83) 98 09/29/20 08:00 50 09/29/20 08:00 Mechanical Ventilator Mechanical Ventilator 09/29/20 07:40 83 31 40 09/29/20 07:00 83 32 106/70 (82) 98 09/29/20 06:00 78 25 105/68 (80) 96 09/29/20 05:00 80 27 104/69 (81) 99 09/29/20 04:00 Mechanical Ventilator Mechanical Ventilator 09/29/20 04:00 99.5 92 23 104/68 (80) 98 09/29/20 04:00 50 09/29/20 03:00 107 35 115/73 (87) 97 09/29/20 02:59 106 09/29/20 02:59 106 09/29/20 02:58 106 33 40 09/29/20 02:00 103 34 115/70 (85) 97 09/29/20 01:53 99.5 09/29/20 01:00 98 34 107/68 (81) 95 09/29/20 00:00 50 09/29/20 00:00 100.5 100 35 102/67 (79) 96 09/29/20 00:00 Mechanical Ventilator Mechanical Ventilator 09/28/20 23:19 107 09/28/20 23:12 107 36 40 09/28/20 23:00 108 34 124/73 (90) 93 09/28/20 22:00 108 32 124/74 (91) 93 09/28/20 21:00 103 34 125/76 (92) 96 09/28/20 20:00 50 09/28/20 20:00 Mechanical Ventilator Mechanical Ventilator 09/28/20 20:00 99.5 91 32 112/67 (82) 100 09/28/20 19:28 92 09/28/20 19:00 97 38 116/67 (83) 99 09/28/20 18:51 106 31 40 09/28/20 18:00 91 32 110/68 (82) 100 09/28/20 17:00 85 34 105/66 (79) 98 09/28/20 16:00 50 09/28/20 16:00 97 09/28/20 16:00 98.8 101 35 123/86 (98) 95 09/28/20 16:00 Mechanical Ventilator Mechanical Ventilator 09/28/20 15:25 107 32 50 09/28/20 15:00 99 32 115/75 (88) 93 09/28/20 14:00 86 33 101/63 (76) 96 09/28/20 13:00 89 31 99/61 (74) 98 09/28/20 12:00 86 09/28/20 12:00 Mechanical Ventilator Mechanical Ventilator 09/28/20 12:00 99.3 87 30 104/59 (74) 99 09/28/20 12:00 50 09/28/20 11:27 93 31 50 09/28/20 11:00 84 26 113/65 (81) 98 Height (Feet): 6 Height (Inches): 1.00 Weight (Pounds): 148 HEENT: status post trach Respiratory/Chest: lungs clear, other - on ventilator Cardiovascular: tachycardia Abdomen: soft, non tender, other - NG tube Extremities: other - edema of arms Neurologic/Psychiatric: alert, aphasia Laboratory Tests Test 09/29/20 06:40 White Blood Count 12.9 K/UL (4.8-10.8) H Red Blood Count 3.01 M/UL (4.70-6.10) L Hemoglobin 8.5 G/DL (14.2-18.0) L Hematocrit 25.1 % (42.0-52.0) L Mean Corpuscular Volume 83 FL (80-99) Mean Corpuscular Hemoglobin 28.3 PG (27.0-31.0) Mean Corpuscular Hemoglobin Concent 34.0 G/DL (32.0-36.0) Red Cell Distribution Width 14.0 % (11.6-14.8) Platelet Count 174 K/UL (150-450) Mean Platelet Volume 7.5 FL (6.5-10.1) Neutrophils (%) (Auto) % (45.0-75.0) Lymphocytes (%) (Auto) % (20.0-45.0) Monocytes (%) (Auto) % (1.0-10.0) Eosinophils (%) (Auto) % (0.0-3.0) Basophils (%) (Auto) % (0.0-2.0) Differential Total Cells Counted 100 Neutrophils % (Manual) 88 % (45-75) H Lymphocytes % (Manual) 8 % (20-45) L Monocytes % (Manual) 4 % (1-10) Eosinophils % (Manual) 0 % (0-3) Basophils % (Manual) 0 % (0-2) Band Neutrophils 0 % (0-8) Platelet Estimate Adequate Platelet Morphology Normal Polychromasia 1+ Hypochromasia 1+ Anisocytosis 1+ Sodium Level 141 MMOL/L (136-145) Potassium Level 3.8 MMOL/L (3.5-5.1) Chloride Level 107 MMOL/L (98-107) Carbon Dioxide Level 30 MMOL/L (21-32) Anion Gap 4 mmol/L (5-15) L Blood Urea Nitrogen 21 mg/dL (7-18) H Creatinine 0.9 MG/DL (0.55-1.30) Estimat Glomerular Filtration Rate > 60 mL/min (>60) Glucose Level 146 MG/DL (74-106) H Calcium Level 7.1 MG/DL (8.5-10.1) L Total Bilirubin 0.3 MG/DL (0.2-1.0) Aspartate Amino Transf (AST/SGOT) 55 U/L (15-37) H Alanine Aminotransferase (ALT/SGPT) 54 U/L (12-78) Alkaline Phosphatase 60 U/L (46-116) Total Protein 5.3 G/DL (6.4-8.2) L Albumin 1.0 G/DL (3.4-5.0) L Globulin 4.3 g/dL Albumin/Globulin Ratio 0.2 (1.0-2.7) L Current Medications Medications (Trade) Dose Ordered Sig/Aleksander Route PRN Reason Start Time Stop Time Status Last Admin Dose Admin Acetaminophen (Tylenol) 650 mg Q4H PRN NG Temp >100.5 09/10/20 23:15 10/10/20 23:14 09/29/20 01:23 Al Hydroxide/Mg Hydroxide (Mylanta) 30 ml Q4H PRN NG Constipation 09/11/20 00:15 10/10/20 23:14 Ascorbic Acid (Vitamin C) 250 mg DAILY NG 09/26/20 09:00 10/18/20 08:59 09/29/20 08:45 Dextrose/ Electrolytes 1,000 ml @ 75 mls/hr [id number] IV 09/29/20 01:30 10/29/20 01:29 09/29/20 02:08 Diphenhydramine HCl (Benadryl) 25 mg Q6H PRN IVP Itching 09/27/20 12:15 10/27/20 12:14 09/29/20 01:22 Diphenoxylate HCl/ Atropine (Lomotil) 2.5 mg Q4H PRN ORAL Diarrhea 09/20/20 08:15 10/20/20 08:14 Finasteride (Proscar) 5 mg DAILY ORAL 09/13/20 09:00 12/12/20 08:59 09/29/20 08:45 Linezolid (Zyvox) 600 mg EVERY 12 HOURS NG 09/27/20 14:00 10/02/20 13:59 09/29/20 08:45 Multivitamins (Multivitamins W/ Minerals 15ml Liquid) 15 ml DAILY NG 09/26/20 09:00 10/26/20 08:59 09/29/20 08:45 Ondansetron HCl (Zofran) 4 mg Q6H PRN IVP Nausea & Vomiting 09/10/20 23:15 10/10/20 23:14 Pantoprazole (Protonix) 40 mg DAILY IVP 09/11/20 09:00 10/11/20 08:59 09/29/20 08:45 Tamsulosin HCl (Flomax) 0.4 mg BEDTIME ORAL 09/12/20 21:00 10/12/20 20:59 09/28/20 21:31 Valproic Acid (Depakene) 1,000 mg BEDTIME NG 09/16/20 21:00 10/31/20 20:59 09/28/20 21:31 Zinc Sulfate (Zinc Sulfate) 220 mg DAILY NG 09/26/20 09:00 10/06/20 08:59 09/29/20 08:45 Bradley Gil MD Sep 29, 2020 10:44
--- NOTE | 2020-09-29 12:00 | NUR ---
NURSE NOTES: pt had large soft BM, light brown. Pt calm now. no sign of distress. VS stable. SR on the monitor. Pt repositioned and oral care done. pt remains warm to touch. Temp WNL.
--- NOTE | 2020-09-29 15:39 | Pulmonolgy Critical Care Note ---
Critical Care - Asmt/Plan Assessment/Plan: Pulmonary CCM Progress Note Subjective ROS Limited/Unobtainable: Yes Allergies: Coded Allergies: No Known Allergies (Unverified , 09/10/20) Subjective on vent contracted sp trach oxygenation noted ICU care reviewed all consultants reviewed and discussed Objective Vital Signs Noted Height (Feet): 6 Height (Inches): 1.00 Weight (Pounds): 148 Objective WDWN chronically ill trach in place feeding tube in place reduced breath sounds bilaterally with scattered rhonchi [id number] without MRG NABS nontender no CCE nonfocal poor LOC Laboratory Tests noted Imaging noted Assessment/Plan Assessment/Plan: IMPRESSION: 1. Acute renal failure. 2. Hypernatremia. 3. Leukocytosis. 4. Possible sepsis. 5. Hypotension. 6. Dementia. 7. Acute on chronic encephalopathy. 8. bcx staph Epi 9. MRSA colonized 10. acute hypoxemic respiratory failure 11. atelectasis/collapse 12. leukocytosis 13. trach PLAN taper fio2 as able taper PEEP as able ID noted; monitor follow up on antibiotics monitor renal parameters monitor oxygen needs vent support full for now off load correct sodium position change monitor imaging d/w consultants and nursing remains critical trach care GT pending subacute placement medications/laboratory data/nursing notes/ICU care reviewed in detail note reviewed and edited care discussed with RN and RT ICU time spent >40 minutes Critical Care - Objective Last 24 Hour Vital Signs Date Time Temp Pulse Resp B/P (MAP) Pulse Ox O2 Delivery O2 Flow Rate FiO2 09/29/20 15:00 97 29 119/73 (88) 97 09/29/20 14:00 99 28 126/78 (94) 97 09/29/20 13:00 101 32 124/83 (97) 94 09/29/20 12:00 98.8 100 32 122/78 (93) 94 09/29/20 12:00 50 09/29/20 12:00 89 09/29/20 12:00 Mechanical Ventilator Mechanical Ventilator 09/29/20 11:05 88 30 40 09/29/20 11:00 95 30 118/72 (87) 94 09/29/20 10:34 98.6 09/29/20 10:00 99.2 100 29 129/99 (109) 99 09/29/20 09:30 Mechanical Ventilator Mechanical Ventilator 09/29/20 09:00 90 29 108/72 (84) 99 09/29/20 08:00 80 09/29/20 08:00 80 28 109/70 (83) 98 09/29/20 08:00 50 09/29/20 08:00 Mechanical Ventilator Mechanical Ventilator 09/29/20 07:40 83 31 40 09/29/20 07:00 83 32 106/70 (82) 98 09/29/20 06:00 78 25 105/68 (80) 96 09/29/20 05:00 80 27 104/69 (81) 99 09/29/20 04:00 Mechanical Ventilator Mechanical Ventilator 09/29/20 04:00 99.5 92 23 104/68 (80) 98 09/29/20 04:00 50 09/29/20 03:00 107 35 115/73 (87) 97 09/29/20 02:59 106 09/29/20 02:59 106 09/29/20 02:58 106 33 40 09/29/20 02:00 103 34 115/70 (85) 97 09/29/20 01:53 99.5 09/29/20 01:00 98 34 107/68 (81) 95 09/29/20 00:00 50 09/29/20 00:00 100.5 100 35 102/67 (79) 96 09/29/20 00:00 Mechanical Ventilator Mechanical Ventilator 09/28/20 23:19 107 09/28/20 23:12 107 36 40 09/28/20 23:00 108 34 124/73 (90) 93 09/28/20 22:00 108 32 124/74 (91) 93 09/28/20 21:00 103 34 125/76 (92) 96 09/28/20 20:00 50 09/28/20 20:00 Mechanical Ventilator Mechanical Ventilator 09/28/20 20:00 99.5 91 32 112/67 (82) 100 09/28/20 19:28 92 09/28/20 19:00 97 38 116/67 (83) 99 09/28/20 18:51 106 31 40 09/28/20 18:00 91 32 110/68 (82) 100 09/28/20 17:00 85 34 105/66 (79) 98 09/28/20 16:00 50 09/28/20 16:00 97 09/28/20 16:00 98.8 101 35 123/86 (98) 95 09/28/20 16:00 Mechanical Ventilator Mechanical Ventilator Critical Care - Subjective ROS Limited/Unobtainable: No FI02: 50 Vent Support Breath Rate: 18 Vent Support Mode: AC Vent Tidal Volume: 500 Sputum Amount: Small PEEP: 8.0 PIP: 25 Tube Feeding Amount: 60 I&O: Intake and Output 09/28/20 09/29/20 19:00 07:00 Intake Total 1710 ml 1845 ml Output Total 790 ml 790 ml Balance 920 ml 1055 ml Free Water 300 ml 300 ml IV Total 750 ml 825 ml Tube Feeding 660 ml 720 ml Output Urine Total 790 ml 790 ml # Bowel Movements 2 4 ET-Tube: 7.5 ET Position: 23 Madi Elliott MD Sep 29, 2020 15:39
--- NOTE | 2020-09-29 16:00 | NUR ---
NURSE NOTES: Pt warm to touch. Fever 101.1. Cooling measures applied. Tylenol given. cold bath given. Pt had another moderate sized, loose, light brown BM. Pt continues to have creamy, thick, tenacious, pink secretions around trach. Moderate tracheal secretions. Pt tolerating vent setting. Pt repositioned and oral care done. Will continue to monitor.
--- NOTE | 2020-09-29 17:30 | NUR ---
NURSE NOTES: pt transferred from ICU, wound dressing was changed and pictures were taken. Pt has multiple wounds, however no bilateral heel st 1 was noted, still optifoam was applied to prevent redness. Pt took off optifam a few min. later. Pt has a rash, all over body. V/s are stable. Pt is on Vent. sating 94-96. Bed locked and in lowest position. Call light within reach. Both Iv's are working. Pt has andrade draining well. Pt on NJ tube no residual, and NJ was secured with tape.
--- NOTE | 2020-09-29 17:45 | NUR ---
TRANSFER TO FLOOR: Patient transferred to [facility], per Dr Layne. Report given to ARTEMIO Warner. Belongings and medications given to -- no belongings. Family and or S/O informed of transfer.
--- NOTE | 2020-09-29 17:55 | Surgery Progress Note ---
Surgery Progress Note Subjective Procedure Performed tracheostomy Symptoms: improved Objective Last 24 Hour Vital Signs Date Time Temp Pulse Resp B/P (MAP) Pulse Ox O2 Delivery O2 Flow Rate FiO2 09/29/20 17:00 101.5 110 33 124/82 (96) 95 09/29/20 16:00 60 09/29/20 16:00 101.1 103 25 123/82 (96) 95 09/29/20 16:00 Mechanical Ventilator Mechanical Ventilator 09/29/20 15:50 114 31 40 09/29/20 15:00 97 29 119/73 (88) 97 09/29/20 14:00 99 28 126/78 (94) 97 09/29/20 13:00 101 32 124/83 (97) 94 09/29/20 12:00 98.8 100 32 122/78 (93) 94 09/29/20 12:00 50 09/29/20 12:00 89 09/29/20 12:00 Mechanical Ventilator Mechanical Ventilator 09/29/20 11:05 88 30 40 09/29/20 11:00 95 30 118/72 (87) 94 09/29/20 10:34 98.6 09/29/20 10:00 99.2 100 29 129/99 (109) 99 09/29/20 09:30 Mechanical Ventilator Mechanical Ventilator 09/29/20 09:00 90 29 108/72 (84) 99 09/29/20 08:00 80 09/29/20 08:00 80 28 109/70 (83) 98 09/29/20 08:00 50 09/29/20 08:00 Mechanical Ventilator Mechanical Ventilator 09/29/20 07:40 83 31 40 09/29/20 07:00 83 32 106/70 (82) 98 09/29/20 06:00 78 25 105/68 (80) 96 09/29/20 05:00 80 27 104/69 (81) 99 09/29/20 04:00 Mechanical Ventilator Mechanical Ventilator 09/29/20 04:00 99.5 92 23 104/68 (80) 98 09/29/20 04:00 50 09/29/20 03:00 107 35 115/73 (87) 97 09/29/20 02:59 106 09/29/20 02:59 106 09/29/20 02:58 106 33 40 09/29/20 02:00 103 34 115/70 (85) 97 09/29/20 01:53 99.5 09/29/20 01:00 98 34 107/68 (81) 95 09/29/20 00:00 50 09/29/20 00:00 100.5 100 35 102/67 (79) 96 09/29/20 00:00 Mechanical Ventilator Mechanical Ventilator 09/28/20 23:19 107 09/28/20 23:12 107 36 40 09/28/20 23:00 108 34 124/73 (90) 93 09/28/20 22:00 108 32 124/74 (91) 93 09/28/20 21:00 103 34 125/76 (92) 96 09/28/20 20:00 50 09/28/20 20:00 Mechanical Ventilator Mechanical Ventilator 09/28/20 20:00 99.5 91 32 112/67 (82) 100 09/28/20 19:28 92 09/28/20 19:00 97 38 116/67 (83) 99 09/28/20 18:51 106 31 40 09/28/20 18:00 91 32 110/68 (82) 100 I&O Intake and Output 09/28/20 09/29/20 19:00 07:00 Intake Total 1710 ml 1845 ml Output Total 790 ml 790 ml Balance 920 ml 1055 ml Free Water 300 ml 300 ml IV Total 750 ml 825 ml Tube Feeding 660 ml 720 ml Output Urine Total 790 ml 790 ml # Bowel Movements 2 4 Dressing: saturated Cardiovascular: RSR Respiratory: decreased breath sounds Abdomen: soft, non-tender, present bowel sounds Extremities: no tenderness, no cyanosis Laboratory Tests Test 09/29/20 06:40 White Blood Count 12.9 K/UL (4.8-10.8) H Red Blood Count 3.01 M/UL (4.70-6.10) L Hemoglobin 8.5 G/DL (14.2-18.0) L Hematocrit 25.1 % (42.0-52.0) L Mean Corpuscular Volume 83 FL (80-99) Mean Corpuscular Hemoglobin 28.3 PG (27.0-31.0) Mean Corpuscular Hemoglobin Concent 34.0 G/DL (32.0-36.0) Red Cell Distribution Width 14.0 % (11.6-14.8) Platelet Count 174 K/UL (150-450) Mean Platelet Volume 7.5 FL (6.5-10.1) Neutrophils (%) (Auto) % (45.0-75.0) Lymphocytes (%) (Auto) % (20.0-45.0) Monocytes (%) (Auto) % (1.0-10.0) Eosinophils (%) (Auto) % (0.0-3.0) Basophils (%) (Auto) % (0.0-2.0) Differential Total Cells Counted 100 Neutrophils % (Manual) 88 % (45-75) H Lymphocytes % (Manual) 8 % (20-45) L Monocytes % (Manual) 4 % (1-10) Eosinophils % (Manual) 0 % (0-3) Basophils % (Manual) 0 % (0-2) Band Neutrophils 0 % (0-8) Platelet Estimate Adequate Platelet Morphology Normal Polychromasia 1+ Hypochromasia 1+ Anisocytosis 1+ Sodium Level 141 MMOL/L (136-145) Potassium Level 3.8 MMOL/L (3.5-5.1) Chloride Level 107 MMOL/L (98-107) Carbon Dioxide Level 30 MMOL/L (21-32) Anion Gap 4 mmol/L (5-15) L Blood Urea Nitrogen 21 mg/dL (7-18) H Creatinine 0.9 MG/DL (0.55-1.30) Estimat Glomerular Filtration Rate > 60 mL/min (>60) Glucose Level 146 MG/DL (74-106) H Calcium Level 7.1 MG/DL (8.5-10.1) L Total Bilirubin 0.3 MG/DL (0.2-1.0) Aspartate Amino Transf (AST/SGOT) 55 U/L (15-37) H Alanine Aminotransferase (ALT/SGPT) 54 U/L (12-78) Alkaline Phosphatase 60 U/L (46-116) Total Protein 5.3 G/DL (6.4-8.2) L Albumin 1.0 G/DL (3.4-5.0) L Globulin 4.3 g/dL Albumin/Globulin Ratio 0.2 (1.0-2.7) L Plan Problems: (1) Fever Assessment & Plan: maybe developing pneumonia cont abx pulm input thank you (2) Decubitus skin ulcer Assessment & Plan: Patient identified on admission to have multiple scabs on the left arm. mild open scabs with eschar. no drainage. no significant cellulitis. bruising no bilateral extremities noted. no signs of abuse. likely from agitation Sacral coccygeal noted to have a DTI 4.3X2.5CM. which is dark purple . RECOMMEND-CLEAN WITH SALINE, PAT DRY AND APPLY CALAZINE. COVER WITH OPTIFOAM DRESSING. REPLACE EVERY 3 DAYS OR NEEDED LEFT ISCHIUM- STAGE I PRESSURE ULCER MEASURES 4.5X1.7CM. NON-BLANCHABLE ERYTHEMA. RECOMMEND- APPLY CALAZINE AND COVER WITH OPTIFOAM DRESSING. REPLACE EVERY 7 DAYS. Turn q2h off load pressure with pillow off load heels nutritional optimization JACQUARD FIXER eval will follow with recs thank you (3) Malnutrition Assessment & Plan: Mr. Roman is a 70 year old male BIBA to ED of [facility] [place] 09[place]10/2020 around 14:00 due to fever. He was found to be hypotensive 91/55 (67), Temp: 100.0, leukocytosis 20.8k and subsequently transferred to ICU for septic shock. The blood culture is reportedly positive for gram positive cocci. NG tube was placed, KUB confirmed the placement to day. Pt is clinically stable with leukocytosis 20.1, improved BUN and creatine, stable hemodynamic without vasopressor. Findings: Mr. Roman is disoriented. He does ot follow commands at this time. Oral cavity is noted to be dried blood concretion likely from NG trauma. No active bleeding site is seen. Due to his level f alertness, already NG tube is i n placed, PO trial was not done at this time. Transferred out ICU last night. He is non on tele. Issues: multiple wounds, s.p balaji/nasal/pharyngeal bleeding with blood culture Gram positive cocci leukocytosis trending down from 20k-20k-16k BUN/Creatine trending down from 93/1.9-79/1.3-54/1.1 Temp: 98.1~98.7, Pulse: 62~72, BP: 105/67~120/48, SPO2 98~100% on 2 liter S: Oral cavity is better condition comparison to yesterday. The mucosa is severely erythema without active bleeding. Limited level of alertness for direct therapy. NG in placed O: 1. Laryngeal palpation to trigger spontaneous cough and swallow: Pt triggered cough with laryngeal palpation. Approximately 5~10 seconds after coughing, he triggered swallow. based on this observation, he presents with copious secretion in pharynx and larynx. He continued to have poor secretion management at laryngeal level at t his time. NO PO trial was given due to poor secretion at the level of air way with low level of alertness. A: 1. Probable aspiration of his own secretion with poor ability to cough and swallow 2. Dysphagia P: 1. NPO for now 2. Observe his secretion, and level of alertness for PO readiness. DAILY ESTIMATED NEEDS: Needs based on Wound, underweight/ 55kg 30-35 kcals/kg 6967-3459 total kcals 1.25-2 g protein/kg 69-110 g total protein 25-30 mL/kg 8630-5294 total fluid mLs NUTRITION DIAGNOSIS: Increased kcal/prot needs R/T wound healing and underweight status as evidenced by pt admitted w/ wounds including DTI 2 coccyx and stage 1 @ lt ischium, pt @ 73% IBW w/ low BMI per guidelines, s/p NGT insertion, on NGT feeds. CURRENT TF:Jevity 1.2 @ 50ml/hr x 24 hrs ENTERAL NUTRITION RECOMMENDATIONS: Jevity 1.2 @ 60ml/hr x 24 hrs to provide 1440ml, 1728kcal, 80g prot, 1160ml free water * As medically appropriate, increase goal rate to 60ml/hr x 24 hrs to meet 100% est kcal/prot needs * HOB over 30 degrees/ without IVF, H2O flush of 100ml q 8hrs ADDITIONAL RECOMMENDATIONS: * Calibrated daily bedscale wt Per SNF: HT=70" * Wound healing: TF rec @ goal will provide 100% RDI add Vit C 250mg QD, ZnSO4 220mg QD x 10days, Davidson BID via NGT * Monitor BGs, need for NISS w/ TF * Monitor lytes, replete as needed- high risk for refeeding syndrome -> check f/up phos and mag (4) Severe sepsis Assessment & Plan: will likely need trach and peg. patient needs protected airway and nutrition full code no family and unable to consent medically necessary. will plan soon (5) Open upper arm wound (6) Hematuria Assessment & Plan: as per urology Aubrey Gutierrez Sep 29, 2020 17:55
--- NOTE | 2020-09-29 19:30 | NUR ---
NURSE NOTES: Received pt in bed, agitated, uncooperative and keeps on shifting position in bed, on vent via trach, not showing any signs of distress at present settings. Tube feeding running @ 75 via NGT on right but will be put on hold to prevent pt from aspirating . D% 1?2 with 10meq KCL running @ 75cc/hr via right wrist #22. Rae cath in place draining light sky colored urine. VSS and pt is SR-ST on the monitor.
[2020-09-29] MEDS: Tamsulosin 0.4mg cap ORAL SCH (21:16)
[2020-09-29] MEDS: Valproic Acid 250mg/5ml Liquid NG SCH (21:16)
[2020-09-30] VITALS: BP 119/74
--- NOTE | 2020-09-30 | NUR ---
NURSE NOTES: Pt remains stable with stable VS. Pt repositioned for comfort. Pt remains SR on the monitor.
--- NOTE | 2020-09-30 01:52 | Cardiology Progress Note ---
Subjective DATE OF SERVICE: Sep 29, 2020 Condition remains critical; prognosis guarded. Remains on vent via trach. BP less tenuous; now mostly controlled. Monitor: sinus/ sinus tachycardia. ABG: (09/26/20) 7.40/52/78 Objective Last 24 Hour Vital Signs Date Time Temp Pulse Resp B/P (MAP) Pulse Ox O2 Delivery O2 Flow Rate FiO2 09/30/20 00:00 85 09/30/20 00:00 Mechanical Ventilator Mechanical Ventilator 09/30/20 00:00 99.9 85 29 119/74 (89) 95 09/29/20 23:34 88 31 40 09/29/20 21:39 98.2 107 33 135/80 (98) 95 09/29/20 20:00 105 09/29/20 20:00 60 09/29/20 20:00 Mechanical Ventilator Mechanical Ventilator 09/29/20 20:00 98.2 95 33 135/80 (98) 95 09/29/20 19:11 101 34 40 09/29/20 17:00 101.5 110 33 124/82 (96) 95 09/29/20 16:24 101.5 09/29/20 16:00 60 09/29/20 16:00 105 09/29/20 16:00 101.1 103 25 123/82 (96) 95 09/29/20 16:00 Mechanical Ventilator Mechanical Ventilator 09/29/20 15:50 114 31 40 09/29/20 15:00 97 29 119/73 (88) 97 09/29/20 14:00 99 28 126/78 (94) 97 09/29/20 13:00 101 32 124/83 (97) 94 09/29/20 12:00 98.8 100 32 122/78 (93) 94 09/29/20 12:00 50 09/29/20 12:00 89 09/29/20 12:00 Mechanical Ventilator Mechanical Ventilator 09/29/20 11:05 88 30 40 09/29/20 11:00 95 30 118/72 (87) 94 09/29/20 10:34 98.6 09/29/20 10:00 99.2 100 29 129/99 (109) 99 09/29/20 09:30 Mechanical Ventilator Mechanical Ventilator 09/29/20 09:00 90 29 108/72 (84) 99 12/12/20 08:00 80 09/29/20 08:00 80 28 109/70 (83) 98 09/29/20 08:00 50 09/29/20 08:00 Mechanical Ventilator Mechanical Ventilator 09/29/20 07:40 83 31 40 09/29/20 07:00 83 32 106/70 (82) 98 09/29/20 06:00 78 25 105/68 (80) 96 09/29/20 05:00 80 27 104/69 (81) 99 09/29/20 04:00 Mechanical Ventilator Mechanical Ventilator 09/29/20 04:00 99.5 92 23 104/68 (80) 98 09/29/20 04:00 50 09/29/20 03:00 107 35 115/73 (87) 97 09/29/20 02:59 106 09/29/20 02:59 106 09/29/20 02:58 106 33 40 09/29/20 02:00 103 34 115/70 (85) 97 09/29/20 01:53 99.5 ROS: no change from my evaluation of 09/10/20. HEENT: Mechanically Ventilated, Thin Trach secretions RHYTHM: NSR, ST LUNGS: bilat. rhonchi and rales, trach site clean CARDIAC: normal rate, regular rhythm, normal S1 and S2 ABDOMEN: normal bowel sounds, soft, other - sacral decub EXTREMITIES: No edema Laboratory Tests Test 09/29/20 06:40 White Blood Count 12.9 K/UL (4.8-10.8) H Red Blood Count 3.01 M/UL (4.70-6.10) L Hemoglobin 8.5 G/DL (14.2-18.0) L Hematocrit 25.1 % (42.0-52.0) L Mean Corpuscular Volume 83 FL (80-99) Mean Corpuscular Hemoglobin 28.3 PG (27.0-31.0) Mean Corpuscular Hemoglobin Concent 34.0 G/DL (32.0-36.0) Red Cell Distribution Width 14.0 % (11.6-14.8) Platelet Count 174 K/UL (150-450) Mean Platelet Volume 7.5 FL (6.5-10.1) Neutrophils (%) (Auto) % (45.0-75.0) Lymphocytes (%) (Auto) % (20.0-45.0) Monocytes (%) (Auto) % (1.0-10.0) Eosinophils (%) (Auto) % (0.0-3.0) Basophils (%) (Auto) % (0.0-2.0) Differential Total Cells Counted 100 Neutrophils % (Manual) 88 % (45-75) H Lymphocytes % (Manual) 8 % (20-45) L Monocytes % (Manual) 4 % (1-10) Eosinophils % (Manual) 0 % (0-3) Basophils % (Manual) 0 % (0-2) Band Neutrophils 0 % (0-8) Platelet Estimate Adequate Platelet Morphology Normal Polychromasia 1+ Hypochromasia 1+ Anisocytosis 1+ Sodium Level 141 MMOL/L (136-145) Potassium Level 3.8 MMOL/L (3.5-5.1) Chloride Level 107 MMOL/L (98-107) Carbon Dioxide Level 30 MMOL/L (21-32) Anion Gap 4 mmol/L (5-15) L Blood Urea Nitrogen 21 mg/dL (7-18) H Creatinine 0.9 MG/DL (0.55-1.30) Estimat Glomerular Filtration Rate > 60 mL/min (>60) Glucose Level 146 MG/DL (74-106) H Calcium Level 7.1 MG/DL (8.5-10.1) L Total Bilirubin 0.3 MG/DL (0.2-1.0) Aspartate Amino Transf (AST/SGOT) 55 U/L (15-37) H Alanine Aminotransferase (ALT/SGPT) 54 U/L (12-78) Alkaline Phosphatase 60 U/L (46-116) Total Protein 5.3 G/DL (6.4-8.2) L Albumin 1.0 G/DL (3.4-5.0) L Globulin 4.3 g/dL Albumin/Globulin Ratio 0.2 (1.0-2.7) L Assessment/Plan Assessment/Plan Respiratory failure with hypoxia - s/p tracheostomy Sepsis Leukocytosis Aspiration PNA Recurring shock Diarrhea Dehydration/hypernatremia corrected Acute myocardial ischemia Acute renal failure HC assoc PNA UTI Transaminitis, acute CVA/dementia Paroxysmal sinus bradycardia and tachycardia Acute diastolic CHF Severe protein/calorie malnutrition Remains CRITICAL & GUARDED Vent support with trach care. Maintenance IVF hydration while NPO Antimicrobials per ID. Replace lytes as needed. PEG planned DVT prophyl Cardiac monitoring Diuresis based on clinical parameters. Madi Rios MD Sep 30, 2020 01:52
[2020-09-30 04:00] VITALS: BP 106/66
--- NOTE | 2020-09-30 04:00 | NUR ---
NURSE NOTES: PT remains stable. VSS. AM care given and pt repositioned. Pt remains SR on the monitor.
[2020-09-30] MEDS: D5 1/2NS w/KCL 10meq 1,000 ML IV SCH ×2 (04:52→17:30)
--- NOTE | 2020-09-30 07:20 | NUR ---
RESPIRATORY NOTE: PT RECEIVED STABLE ON CMV WITH CURRENT SETTINGS: AC/VC 18, 500, 40%, +5. AIRWAY IS MIDLINE SECURE AND PATENT. ALARMS ARE ON AND AUDIBLE. VENT CIRCUIT IS SECURE AND OUT OF THE WAY. NO S/S OF RESPIRATORY DISTRESS NOTED AT THIS TIME. WILL CONTINUE TO MONITOR.
--- NOTE | 2020-09-30 07:27 | NUR ---
HAND-OFF: Report given to ARTEMIO Phillips.
[2020-09-30 08:00] VITALS: BP 96/55
--- NOTE | 2020-09-30 08:59 | NUR ---
NURSE NOTES: reported ABG results to doc. Queen, he ordered redo ABG's. Increase FIO2 to 60.
--- NOTE | 2020-09-30 09:00 | NUR ---
RESPIRATORY NOTE: AT THIS TIME POST ABG RESULT AND PER MD. FIO2 WAS INCREASED TO 60%. VS WNL WILL CONTINUE TO CLOSELY MONITOR.
--- NOTE | 2020-09-30 09:18 | Urology Progress Note ---
Assessment/Plan Status: stable Assessment/Plan: 1. Gross hematuria. 2. Pyuria and possible UTI. 3. Proteinuria. 4. BPH. 5. Urinary retention. 6. Probable neurogenic bladder. 7. Possible sepsis. monitor clinically maintain andrade, secured to pt's leg hand irrigated and do PRN abx as ordered flomax and proscar cysto electively voiding trial at some point? Subjective Allergies: Coded Allergies: VANCOMYCIN (Verified Allergy, Severe, hive, 09/28/20) Subjective remains on vent, trach 09/27 transferred out of ICU Objective Last 24 Hour Vital Signs Date Time Temp Pulse Resp B/P (MAP) Pulse Ox O2 Delivery O2 Flow Rate FiO2 09/30/20 08:00 98.2 71 27 96/55 (69) 100 09/30/20 04:00 60 09/30/20 04:00 Mechanical Ventilator Mechanical Ventilator 09/30/20 04:00 98.4 79 24 106/66 (79) 100 09/30/20 03:42 77 22 40 09/30/20 03:41 78 09/30/20 00:00 85 09/30/20 00:00 Mechanical Ventilator Mechanical Ventilator 09/30/20 00:00 99.9 85 29 119/74 (89) 95 09/29/20 23:34 88 31 40 09/29/20 21:39 98.2 107 33 135/80 (98) 95 09/29/20 20:00 105 09/29/20 20:00 60 09/29/20 20:00 Mechanical Ventilator Mechanical Ventilator 09/29/20 20:00 98.2 95 33 135/80 (98) 95 09/29/20 19:11 101 34 40 09/29/20 17:00 101.5 110 33 124/82 (96) 95 09/29/20 16:24 101.5 09/29/20 16:00 60 09/29/20 16:00 105 09/29/20 16:00 101.1 103 25 123/82 (96) 95 09/29/20 16:00 Mechanical Ventilator Mechanical Ventilator 09/29/20 15:50 114 31 40 09/29/20 15:00 97 29 119/73 (88) 97 09/29/20 14:00 99 28 126/78 (94) 97 09/29/20 13:00 101 32 124/83 (97) 94 09/29/20 12:00 98.8 100 32 122/78 (93) 94 09/29/20 12:00 50 09/29/20 12:00 89 09/29/20 12:00 Mechanical Ventilator Mechanical Ventilator 09/29/20 11:05 88 30 40 09/29/20 11:00 95 30 118/72 (87) 94 09/29/20 10:34 98.6 09/29/20 10:00 99.2 100 29 129/99 (109) 99 09/29/20 09:30 Mechanical Ventilator Mechanical Ventilator Intake and Output 09/29/20 09/30/20 19:00 07:00 Intake Total 1610.0 ml 1170 ml Output Total 595 ml 700 ml Balance 1015.0 ml 470 ml Free Water 50 ml IV Total 900.0 ml 750 ml Tube Feeding 660 ml 420 ml Output Urine Total 595 ml 700 ml Stool Total 0 ml # Bowel Movements 4 3 Microbiology Date/Time Source Procedure Growth Status 09/24/20 10:50 Nasopharynx SARS-CoV-2 RdRp Gene Assay - Final Complete 09/18/20 18:30 Stool Clostridium difficile Toxin Assay - Final Complete 09/17/20 12:58 Blood Blood Culture - Final NO GROWTH AFTER 5 DAYS Complete 09/10/20 20:05 Urine,Clean Catch Urine Culture - Final NO GROWTH AFTER 48 HOURS Complete 09/10/20 17:15 Rectum VRE Culture - Final Enterococcus Faecalis - Vre Complete Current Medications Medications (Trade) Dose Ordered Sig/Aleksander Route PRN Reason Start Time Stop Time Status Last Admin Dose Admin Acetaminophen (Tylenol) 650 mg Q4H PRN NG Temp >100.5 09/10/20 23:15 10/10/20 23:14 09/29/20 15:54 Al Hydroxide/Mg Hydroxide (Mylanta) 30 ml Q4H PRN NG Constipation 09/11/20 00:15 10/10/20 23:14 Ascorbic Acid (Vitamin C) 250 mg DAILY NG 09/26/20 09:00 10/18/20 08:59 09/29/20 08:45 Dextrose/ Electrolytes 1,000 ml @ 75 mls/hr [id number] IV 09/29/20 01:30 10/29/20 01:29 09/30/20 04:52 Diphenhydramine HCl (Benadryl) 25 mg Q6H PRN IVP Itching 09/27/20 12:15 10/27/20 12:14 09/29/20 21:18 Diphenoxylate HCl/ Atropine (Lomotil) 2.5 mg Q4H PRN ORAL Diarrhea 09/20/20 08:15 10/20/20 08:14 Finasteride (Proscar) 5 mg DAILY ORAL 09/13/20 09:00 12/12/20 08:59 09/29/20 08:45 Linezolid (Zyvox) 600 mg EVERY 12 HOURS NG 09/27/20 14:00 10/02/20 13:59 09/29/20 21:15 Multivitamins (Multivitamins W/ Minerals 15ml Liquid) 15 ml DAILY NG 09/26/20 09:00 10/26/20 08:59 09/29/20 08:45 Ondansetron HCl (Zofran) 4 mg Q6H PRN IVP Nausea & Vomiting 09/10/20 23:15 10/10/20 23:14 Pantoprazole (Protonix) 40 mg DAILY IVP 09/11/20 09:00 10/11/20 08:59 09/29/20 08:45 Tamsulosin HCl (Flomax) 0.4 mg BEDTIME ORAL 09/12/20 21:00 10/12/20 20:59 09/29/20 21:16 Valproic Acid (Depakene) 1,000 mg BEDTIME NG 09/16/20 21:00 10/31/20 20:59 09/29/20 21:16 Zinc Sulfate (Zinc Sulfate) 220 mg DAILY NG 09/26/20 09:00 10/06/20 08:59 09/29/20 08:45 Laboratory Tests 09/30/20 08:33: Arterial Blood pH 7.552*H, Arterial Blood Partial Pressure CO2 34.7L, Arterial Blood Partial Pressure O2 51.8L, Arterial Blood HCO3 27.8H, Arterial Blood Oxygen Saturation 87.6*L, Arterial Blood Base Excess 4.8H, Freddy Test Positive Height (Feet): 6 Height (Inches): 1.00 Weight (Pounds): 148 Objective exam stable urine clearing Levi Brunson MD Sep 30, 2020 09:18
[2020-09-30] MEDS: Pantoprazole Inj IVP SCH (10:07)
[2020-09-30] MEDS: Multivitamins W/Minerals 15 ML UDC NG SCH (10:08)
[2020-09-30] MEDS: Zinc Sulfate 220mg NG SCH (10:08)
[2020-09-30] MEDS: Ascorbic Acid 500mg tab NG SCH (10:09)
--- NOTE | 2020-09-30 10:24 | General Progress Note ---
Subjective ROS Limited/Unobtainable: No Constitutional: Reports: malaise, weakness HEENT: Reports: no symptoms Cardiovascular: Reports: no symptoms Respiratory: Reports: shortness of breath, sputum Gastrointestinal/Abdominal: Reports: difficulty swallowing Genitourinary: Reports: no symptoms Neurologic/Psychiatric: Reports: no symptoms Endocrine: Reports: no symptoms Hematologic/Lymphatic: Reports: anemia Allergies: Coded Allergies: VANCOMYCIN (Verified Allergy, Severe, hive, 09/28/20) All Systems: reviewed and negative except above Subjective no events. poorly responsive. sats low 90%. mild congestion. +edema Objective Last 24 Hour Vital Signs Date Time Temp Pulse Resp B/P (MAP) Pulse Ox O2 Delivery O2 Flow Rate FiO2 09/30/20 08:00 98.2 71 27 96/55 (69) 100 09/30/20 04:00 60 09/30/20 04:00 Mechanical Ventilator Mechanical Ventilator 09/30/20 04:00 98.4 79 24 106/66 (79) 100 09/30/20 03:42 77 22 40 09/30/20 03:41 78 09/30/20 00:00 85 09/30/20 00:00 Mechanical Ventilator Mechanical Ventilator 09/30/20 00:00 99.9 85 29 119/74 (89) 95 09/29/20 23:34 88 31 40 09/29/20 21:39 98.2 107 33 135/80 (98) 95 09/29/20 20:00 105 09/29/20 20:00 60 09/29/20 20:00 Mechanical Ventilator Mechanical Ventilator 09/29/20 20:00 98.2 95 33 135/80 (98) 95 09/29/20 19:11 101 34 40 09/29/20 17:00 101.5 110 33 124/82 (96) 95 09/29/20 16:24 101.5 09/29/20 16:00 60 09/29/20 16:00 105 09/29/20 16:00 101.1 103 25 123/82 (96) 95 09/29/20 16:00 Mechanical Ventilator Mechanical Ventilator 09/29/20 15:50 114 31 40 09/29/20 15:00 97 29 119/73 (88) 97 09/29/20 14:00 99 28 126/78 (94) 97 09/29/20 13:00 101 32 124/83 (97) 94 09/29/20 12:00 98.8 100 32 122/78 (93) 94 09/29/20 12:00 50 09/29/20 12:00 89 09/29/20 12:00 Mechanical Ventilator Mechanical Ventilator 09/29/20 11:05 88 30 40 09/29/20 11:00 95 30 118/72 (87) 94 09/29/20 10:34 98.6 Intake and Output 09/29/20 09/30/20 19:00 07:00 Intake Total 1610.0 ml 1170 ml Output Total 595 ml 700 ml Balance 1015.0 ml 470 ml Free Water 50 ml IV Total 900.0 ml 750 ml Tube Feeding 660 ml 420 ml Output Urine Total 595 ml 700 ml Stool Total 0 ml # Bowel Movements 4 3 Laboratory Tests 09/30/20 08:33: Arterial Blood pH 7.552*H, Arterial Blood Partial Pressure CO2 34.7L, Arterial Blood Partial Pressure O2 51.8L, Arterial Blood HCO3 27.8H, Arterial Blood Oxygen Saturation 87.6*L, Arterial Blood Base Excess 4.8H, Freddy Test Positive Height (Feet): 6 Height (Inches): 1.00 Weight (Pounds): 148 Objective General Appearance: WD/WN, confused. EENT: normal ENT inspection. +trach, dressing clean Neck: normal alignment, supple Cardiovascular: normal rate, regular rhythm Respiratory/Chest: rhonchi - bilaterally. 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, responsive, disoriented Lymphatic: normal anterior cervical (L), normal anterior cervical (R), normal posterior cervical (L), normal posterior cervical (R) Assessment/Plan Problem List: (1) PNA (pneumonia) ICD Codes: J18.9 - Pneumonia, unspecified organism SNOMED: 833903947 (2) UTI (urinary tract infection) ICD Codes: N39.0 - Urinary tract infection, site not specified SNOMED: 14524002 (3) Fever ICD Codes: R50.9 - Fever, unspecified SNOMED: 935126836 Qualifiers: Qualified Codes: R50.9 - Fever, unspecified (4) Decubitus skin ulcer ICD Codes: L89.90 - Pressure ulcer of unspecified site, unspecified stage SNOMED: 940590525 (5) Malnutrition ICD Codes: E46 - Unspecified protein-calorie malnutrition SNOMED: 81332162 (6) Severe sepsis ICD Codes: A41.9 - Sepsis, unspecified organism; R65.20 - Severe sepsis without septic shock SNOMED: 34236656 (7) Hematuria ICD Codes: R31.9 - Hematuria, unspecified SNOMED: 49358132 Status: stable Assessment/Plan: cont iv abx per id resp rx and suctioning trach care titrate fio2 monitor abg skin care gt placement monitor labs poor prognosis Jason Layne MD Sep 30, 2020 10:23
--- NOTE | 2020-09-30 10:51 | General Progress Note ---
Subjective ROS Limited/Unobtainable: No Allergies: Coded Allergies: VANCOMYCIN (Verified Allergy, Severe, hive, 09/28/20) Objective Last 24 Hour Vital Signs Date Time Temp Pulse Resp B/P (MAP) Pulse Ox O2 Delivery O2 Flow Rate FiO2 09/30/20 08:00 98.2 71 27 96/55 (69) 100 09/30/20 04:00 60 09/30/20 04:00 Mechanical Ventilator Mechanical Ventilator 09/30/20 04:00 98.4 79 24 106/66 (79) 100 09/30/20 03:42 77 22 40 09/30/20 03:41 78 09/30/20 00:00 85 09/30/20 00:00 Mechanical Ventilator Mechanical Ventilator 09/30/20 00:00 99.9 85 29 119/74 (89) 95 09/29/20 23:34 88 31 40 09/29/20 21:39 98.2 107 33 135/80 (98) 95 09/29/20 20:00 105 09/29/20 20:00 60 09/29/20 20:00 Mechanical Ventilator Mechanical Ventilator 09/29/20 20:00 98.2 95 33 135/80 (98) 95 09/29/20 19:11 101 34 40 09/29/20 17:00 101.5 110 33 124/82 (96) 95 09/29/20 16:24 101.5 09/29/20 16:00 60 09/29/20 16:00 105 09/29/20 16:00 101.1 103 25 123/82 (96) 95 09/29/20 16:00 Mechanical Ventilator Mechanical Ventilator 09/29/20 15:50 114 31 40 09/29/20 15:00 97 29 119/73 (88) 97 09/29/20 14:00 99 28 126/78 (94) 97 09/29/20 13:00 101 32 124/83 (97) 94 09/29/20 12:00 98.8 100 32 122/78 (93) 94 09/29/20 12:00 50 09/29/20 12:00 89 09/29/20 12:00 Mechanical Ventilator Mechanical Ventilator 09/29/20 11:05 88 30 40 09/29/20 11:00 95 30 118/72 (87) 94 Intake and Output 09/29/20 09/30/20 19:00 07:00 Intake Total 1610.0 ml 1170 ml Output Total 595 ml 700 ml Balance 1015.0 ml 470 ml Free Water 50 ml IV Total 900.0 ml 750 ml Tube Feeding 660 ml 420 ml Output Urine Total 595 ml 700 ml Stool Total 0 ml # Bowel Movements 4 3 Laboratory Tests 09/30/20 08:33: Arterial Blood pH 7.552*H, Arterial Blood Partial Pressure CO2 34.7L, Arterial Blood Partial Pressure O2 51.8L, Arterial Blood HCO3 27.8H, Arterial Blood Oxygen Saturation 87.6*L, Arterial Blood Base Excess 4.8H, Freddy Test Positive Height (Feet): 6 Height (Inches): 1.00 Weight (Pounds): 148 General Appearance: no apparent distress EENT: normal ENT inspection Neck: supple Cardiovascular: normal rate Respiratory/Chest: decreased breath sounds Abdomen: normal bowel sounds, non tender, soft Extremities: non-tender Assessment/Plan Status: stable Assessment/Plan: Assessment - resp failure - NGT dependent - OBS/Dementia - sepsis - diarrhea, C Diff (-) - Azotemia, resolved - CHF - malnutrition , low albumin - leukocytosis - hypernatremia Recommendations -Vent care / support - abx - supportive care - continue TF - increase free water - abx - will arrange for PEG placement once medically stable and WBC is better -s/p trach -plan PEG this week Hima Escalante MD Sep 30, 2020 10:51
--- NOTE | 2020-09-30 11:08 | Surgery Progress Note ---
Surgery Progress Note Subjective Procedure Performed tracheostomy Additional Comments labs noted micro reviewed exam stable no n/v/f/c Objective Last 24 Hour Vital Signs Date Time Temp Pulse Resp B/P (MAP) Pulse Ox O2 Delivery O2 Flow Rate FiO2 09/30/20 08:00 98.2 71 27 96/55 (69) 100 09/30/20 04:00 60 09/30/20 04:00 Mechanical Ventilator Mechanical Ventilator 09/30/20 04:00 98.4 79 24 106/66 (79) 100 09/30/20 03:42 77 22 40 09/30/20 03:41 78 09/30/20 00:00 85 09/30/20 00:00 Mechanical Ventilator Mechanical Ventilator 09/30/20 00:00 99.9 85 29 119/74 (89) 95 09/29/20 23:34 88 31 40 09/29/20 21:39 98.2 107 33 135/80 (98) 95 09/29/20 20:00 105 09/29/20 20:00 60 09/29/20 20:00 Mechanical Ventilator Mechanical Ventilator 09/29/20 20:00 98.2 95 33 135/80 (98) 95 09/29/20 19:11 101 34 40 09/29/20 17:00 101.5 110 33 124/82 (96) 95 09/29/20 16:24 101.5 09/29/20 16:00 60 09/29/20 16:00 105 09/29/20 16:00 101.1 103 25 123/82 (96) 95 09/29/20 16:00 Mechanical Ventilator Mechanical Ventilator 09/29/20 15:50 114 31 40 09/29/20 15:00 97 29 119/73 (88) 97 09/29/20 14:00 99 28 126/78 (94) 97 09/29/20 13:00 101 32 124/83 (97) 94 09/29/20 12:00 98.8 100 32 122/78 (93) 94 09/29/20 12:00 50 09/29/20 12:00 89 09/29/20 12:00 Mechanical Ventilator Mechanical Ventilator I&O Intake and Output 09/29/20 09/30/20 19:00 07:00 Intake Total 1610.0 ml 1170 ml Output Total 595 ml 700 ml Balance 1015.0 ml 470 ml Free Water 50 ml IV Total 900.0 ml 750 ml Tube Feeding 660 ml 420 ml Output Urine Total 595 ml 700 ml Stool Total 0 ml # Bowel Movements 4 3 Dressing: saturated Cardiovascular: RSR Respiratory: decreased breath sounds Abdomen: non-tender, present bowel sounds Extremities: no edema, no tenderness Laboratory Tests Test 09/30/20 08:33 09/30/20 10:53 Arterial Blood pH 7.552 (7.350-7.450) Pending Arterial Blood Partial Pressure CO2 34.7 mmHg (35.0-45.0) L Pending Arterial Blood Partial Pressure O2 51.8 mmHg (75.0-100.0) L Pending Arterial Blood HCO3 27.8 mmol/L (22.0-26.0) H Pending Arterial Blood Oxygen Saturation 87.6 % (95-100) *L Pending Arterial Blood Base Excess 4.8 (-2-2) H Pending Freddy Test Positive Pending Plan Problems: (1) Fever Assessment & Plan: maybe developing pneumonia cont abx pulm input thank you (2) Decubitus skin ulcer Assessment & Plan: Patient identified on admission to have multiple scabs on the left arm. mild open scabs with eschar. no drainage. no significant cellulitis. bruising no bilateral extremities noted. no signs of abuse. likely from agitation Sacral coccygeal noted to have a DTI 4.3X2.5CM. which is dark purple . RECOMMEND-CLEAN WITH SALINE, PAT DRY AND APPLY CALAZINE. COVER WITH OPTIFOAM DRESSING. REPLACE EVERY 3 DAYS OR NEEDED LEFT ISCHIUM- STAGE I PRESSURE ULCER MEASURES 4.5X1.7CM. NON-BLANCHABLE ERYTHEMA. RECOMMEND- APPLY CALAZINE AND COVER WITH OPTIFOAM DRESSING. REPLACE EVERY 7 DAYS. 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 Roman is a 70 year old male BIBA to ED of [facility] on 09/10/2020 around 14:00 due to fever. He was found to be hypotensive 91/55 (67), Temp: 100.0, leukocytosis 20.8k and subsequently transferred to ICU for septic shock. The blood culture is reportedly positive for gram positive cocci. NG tube was placed, KUB confirmed the placement to day. Pt is clinically stable with leukocytosis 20.1, improved BUN and creatine, stable hemodynamic without vasopressor. Findings: Mr. Roman is disoriented. He does ot follow commands at this time. Oral cavity is noted to be dried blood concretion likely from NG trauma. No active bleeding site is seen. Due to his level f alertness, already NG tube is in placed, PO trial was not done at this time. Transferred out ICU last night. He is non on tele. Issues: multiple wounds, s.p balaji/nasal/pharyngeal bleeding with blood culture Gram positive cocci leukocytosis trending down from 20k-20k-16k BUN/Creatine trending down from 93/1.9-79/1.3-54/1.1 Temp: 98.1~98.7, Pulse: 62~72, BP: 105/67~120/48, SPO2 98~100% on 2 liter S: Oral cavity is better condition comparison to yesterday. The mucosa is severely erythema without active bleeding. Limited level of alertness for direct therapy. NG in placed O: 1. Laryngeal palpation to trigger spontaneous cough and swallow: Pt triggered cough with laryngeal palpation. Approximately 5~10 seconds after coughing, he triggered swallow. based on this observation, he presents with copious secretion in pharynx and larynx. He continued to have poor secretion management at laryngeal level at this time. NO PO trial was given due to poor secretion at the level of air way with low level of alertness. A: 1. Probable aspiration of his own secretion with poor ability to cough and swallow 2. Dysphagia P: 1. NPO for now 2. Observe his secretion, and level of alertness for PO readiness. DAILY ESTIMATED NEEDS: Needs based on Wound, underweight/ 55kg 30-35 kcals/kg 0216-2148 total kcals 1.25-2 g protein/kg 69-110 g total protein 25-30 mL/kg 0612-1533 total fluid mLs NUTRITION DIAGNOSIS: Increased kcal/prot needs R/T wound healing and underweight status as evidenced by pt admitted w/ wounds including DTI 2 coccyx and stage 1 @ lt ischium, pt @ 73% IBW w/ low BMI per guidelines, s/p NGT insertion, on NGT feeds. CURRENT TF:Jevity 1.2 @ 50ml/hr x 24 hrs ENTERAL NUTRITION RECOMMENDATIONS: Jevity 1.2 @ 60ml/hr x 24 hrs to provide 1440ml, 1728kcal, 80g prot, 1160ml free water * As medically appropriate, increase goal rate to 60ml/hr x 24 hrs to meet 100% est kcal/prot needs * HOB over 30 degrees/ without IVF, H2O flush of 100ml q 8hrs ADDITIONAL RECOMMENDATIONS: * Calibrated daily bedscale wt Per SNF: HT=70" * Wound healing: TF rec @ goal will provide 100% RDI add Vit C 250mg QD, ZnSO4 220mg QD x 10days, Davidson BID via NGT * Monitor BGs, need for NISS w/ TF * Monitor lytes, replete as needed- high risk for refeeding syndrome -> check f/up phos and mag (4) Severe sepsis Assessment & Plan: will likely need trach and peg. patient needs protected airway and nutrition full code no family and unable to consent medically necessary. will plan soon (5) Open upper arm wound (6) Hematuria Assessment & Plan: as per urology Aubrey Gutierrez Sep 30, 2020 11:08
--- NOTE | 2020-09-30 11:20 | NUR ---
RESPIRATORY NOTE: POST ABG RESULTS FIO2 WAS TITRATED FROM 60% TO 50%. WAITING ON ORDERS FROM MD. PT TOLERATING WELL. WILL CONTINUE TO MONITOR.
[2020-09-30 12:00] VITALS: BP 115/68
--- NOTE | 2020-09-30 12:47 | NUR ---
NURSE NOTES: notified doctor Bret of latest pt's ABG's. settings were changed by [employer] now FIO2 is 50%
[2020-09-30] MEDS ORDERED: Sterile Water Irrig 1000ml IRRIG ONE (14:18)
[2020-09-30] MEDS ORDERED: D5W 275ml ONE (14:18)
[2020-09-30 16:00] VITALS: BP 117/69
--- NOTE | 2020-09-30 16:00 | NUR ---
RESPIRATORY NOTE: PER MD RR WAS DECREASED FROM 18 TO 14 AND VT WAS DECREASED FROM 500 TO 450. ALL VS WNL. ABG TO BE DRAWN IN TWO HOURS. RN AWARE.
--- NOTE | 2020-09-30 16:01 | Pulmonolgy Critical Care Note ---
Critical Care - Asmt/Plan Assessment/Plan: Pulmonary CCM Progress Note Subjective ROS Limited/Unobtainable: Yes Allergies: Coded Allergies: No Known Allergies (Unverified , 09/10/20) Subjective on vent contracted sp trach oxygenation noted SDU care reviewed all consultants reviewed and discussed Objective Vital Signs Noted Height (Feet): 6 Height (Inches): 1.00 Weight (Pounds): 148 Objective WDWN chronically ill trach in place feeding tube in place reduced breath sounds bilaterally with scattered rhonchi [id number] without MRG NABS nontender no CCE nonfocal poor LOC Laboratory Tests noted Imaging noted Assessment/Plan Assessment/Plan: IMPRESSION: 1. Acute renal failure. 2. Hypernatremia. 3. Leukocytosis. 4. Possible sepsis. 5. Hypotension. 6. Dementia. 7. Acute on chronic encephalopathy. 8. bcx staph Epi 9. MRSA colonized 10. acute hypoxemic respiratory failure 11. atelectasis/collapse 12. leukocytosis 13. trach PLAN taper fio2 as able taper PEEP as able Adjust RR/Vt ID noted; monitor follow up on antibiotics monitor renal parameters monitor oxygen needs vent support full for now off load correct sodium position change monitor imaging d/w consultants and nursing remains critical trach care GT pending subacute placement medications/laboratory data/nursing notes/ICU care reviewed in detail note reviewed and edited care discussed with RN and RT ICU time spent >40 minutes Critical Care - Objective Last 24 Hour Vital Signs Date Time Temp Pulse Resp B/P (MAP) Pulse Ox O2 Delivery O2 Flow Rate FiO2 09/30/20 12:00 50 09/30/20 12:00 97.9 75 25 115/68 (84) 100 09/30/20 12:00 Mechanical Ventilator Mechanical Ventilator 09/30/20 11:20 75 25 50 09/30/20 10:35 86 29 60 09/30/20 09:00 75 28 60 09/30/20 08:00 50 09/30/20 08:00 Mechanical Ventilator Mechanical Ventilator 09/30/20 08:00 98.2 71 27 96/55 (69) 100 09/30/20 07:20 75 29 40 09/30/20 04:00 60 09/30/20 04:00 Mechanical Ventilator Mechanical Ventilator 09/30/20 04:00 98.4 79 24 106/66 (79) 100 09/30/20 03:42 77 22 40 09/30/20 03:41 78 09/30/20 00:00 85 09/30/20 00:00 Mechanical Ventilator Mechanical Ventilator 09/30/20 00:00 99.9 85 29 119/74 (89) 95 09/29/20 23:34 88 31 40 09/29/20 21:39 98.2 107 33 135/80 (98) 95 09/29/20 20:00 105 09/29/20 20:00 60 09/29/20 20:00 Mechanical Ventilator Mechanical Ventilator 09/29/20 20:00 98.2 95 33 135/80 (98) 09/29/20 19:11 101 34 40 09/29/20 17:00 101.5 110 33 124/82 (96) 09/29/20 16:24 101.5 Critical Care - Subjective ROS Limited/Unobtainable: Yes Condition: stable FI02: 50 Vent Support Breath Rate: 18 Vent Support Mode: AC Vent Tidal Volume: 500 Sputum Amount: Small PEEP: 5.0 PIP: 18 Tube Feeding Amount: 60 I&O: Intake and Output 09/29/20 09/30/20 19:00 07:00 Intake Total 1610.0 ml 1170 ml Output Total 595 ml 700 ml Balance 1015.0 ml 470 ml Free Water 50 ml IV Total 900.0 ml 750 ml Tube Feeding 660 ml 420 ml Output Urine Total 595 ml 700 ml Stool Total 0 ml # Bowel Movements 4 3 ET-Tube: 7.5 ET Position: 23 Madi Elliott MD Sep 30, 2020 16:01
--- NOTE | 2020-09-30 16:06 | NUR ---
NURSE NOTES: per docChase Elliott change vent setting for TV to 450 and reduce rate to 14. draw ABG's in 2hrs.
[2020-09-30] MEDS: DiphenhydrAMINE 50mg/ml Inj IVP PRN ×2 (16:16→22:11)
--- NOTE | 2020-09-30 19:18 | NUR ---
NURSE HAND-OFF REPORT: Important Events on Shift:[] endorsed plan of care pt to remain NPO for procedure tomorrow. Feeding has been on hold because pt. is moving too much in bed so to avoid aspiration feeding was stopped. Pt was itchy so benadryl was given. Notified doc. Ellison feeding was held. Endorsed to Jose L ULLOA, new ABG's results, he will notify doctor Lexi about new results. Doctor Cabrera is aware there is no consent signs because there is no Family to consent. Patient Status: []full Diet: []NPO tonight for peg placement 10/02 Pending Orders: [] Pending Results/Labs:[] Pending MD notification:[] Latest Vital Signs: Temperature 98.2 , Pulse 90 , B/P 117 /69 , Respiratory Rate 31 , O2 SAT 97 , Mechanical Ventilator, O2 Flow Rate 15.0 . Vital Sign Comment: [] EKG Rhythm: Sinus Rhythm Rhythm change?: N MD Notified?: Y -Dr Jacklyn BENITEZ Response: No New Orders Received Latest Schultz Fall Score: 70 Fall Risk: High Risk Safety Measures: Call light Within Reach, Bed Alarm Zone 1, Side Rails Side Rails x3, Bed position Low and Locked. Fall Precautions: y Yellow Socks Door Sign Patient Fall Education talked to pt about staying in bed Report given to []Jose L/ARTEMIO.
--- NOTE | 2020-09-30 19:21 | NUR ---
NURSE NOTES: Received pt in bed, on vent not showing any signs of distress at present settings. Latest ABG result received from RT Andrea. Left a message for Dr. Elliott. Awaiting call back.
--- NOTE | 2020-09-30 19:25 | NUR ---
NURSE NOTES: Dr Cabrera calls. Made aware that there is no family who can give consent for pt.
[2020-09-30 20:00] VITALS: BP 105/71
[2020-09-30] MEDS: Tamsulosin 0.4mg cap ORAL SCH (20:36)
[2020-09-30] MEDS: Valproic Acid 250mg/5ml Liquid NG SCH (20:37)
[2020-10-01] VITALS: BP 118/75
--- NOTE | 2020-10-01 | NUR ---
NURSE NOTES: NURSE NOTES: Pt remains stable with stable VS. Saturations between 96-98. FiO2 decreased to 50%. Pt remains SR on the monitor.
--- NOTE | 2020-10-01 02:11 | Cardiology Progress Note ---
Subjective DATE OF SERVICE: Sep 30, 2020 Condition remains critical; prognosis guarded. Remains on vent via trach. BP remains mostly controlled. Monitor: sinus/ sinus tachycardia. ABG: (09/30/20) 7.51/34/48 Objective Last 24 Hour Vital Signs Date Time Temp Pulse Resp B/P (MAP) Pulse Ox O2 Delivery O2 Flow Rate FiO2 10/01/20 00:00 Mechanical Ventilator Mechanical Ventilator 10/01/20 00:00 99.5 68 35 118/75 (89) 97 10/01/20 00:00 86 09/30/20 23:15 86 34 50 09/30/20 21:00 60 09/30/20 20:00 60 09/30/20 20:00 98.8 76 35 105/71 (82) 98 09/30/20 20:00 Mechanical Ventilator Mechanical Ventilator 09/30/20 20:00 82 09/30/20 19:30 92 35 60 09/30/20 16:00 82 09/30/20 16:00 Mechanical Ventilator Mechanical Ventilator 09/30/20 16:00 50 09/30/20 16:00 98.2 90 31 117/69 (85) 97 09/30/20 15:05 88 24 50 09/30/20 12:00 50 09/30/20 12:00 97.9 75 25 115/68 (84) 100 09/30/20 12:00 Mechanical Ventilator Mechanical Ventilator 09/30/20 12:00 75 09/30/20 11:20 75 25 50 09/30/20 10:35 86 29 60 09/30/20 09:00 75 28 60 09/30/20 08:00 50 09/30/20 08:00 72 09/30/20 08:00 Mechanical Ventilator Mechanical Ventilator 09/30/20 08:00 98.2 71 27 96/55 (69) 100 09/30/20 07:20 75 29 40 09/30/20 04:00 60 09/30/20 04:00 Mechanical Ventilator Mechanical Ventilator 09/30/20 04:00 98.4 79 24 106/66 (79) 100 09/30/20 03:42 77 22 40 09/30/20 03:41 78 ROS: no change from my evaluation of 09/10/20. HEENT: Mechanically Ventilated, Thin Trach secretions RHYTHM: NSR, ST LUNGS: bilat. rhonchi and rales, trach site clean CARDIAC: normal rate, regular rhythm, normal S1 and S2 ABDOMEN: normal bowel sounds, soft, other - sacral decub EXTREMITIES: No edema Laboratory Tests Test 09/30/20 08:33 09/30/20 10:53 09/30/20 18:30 Arterial Blood pH 7.552 (7.350-7.450) 7.517 (7.350-7.450) 7.514 (7.350-7.450) Arterial Blood Partial Pressure CO2 34.7 mmHg (35.0-45.0) L 35.4 mmHg (35.0-45.0) 34.4 mmHg (35.0-45.0) L Arterial Blood Partial Pressure O2 51.8 mmHg (75.0-100.0) L 129.7 mmHg (75.0-100.0) H 47.7 mmHg (75.0-100.0) Arterial Blood HCO3 27.8 mmol/L (22.0-26.0) H 28.1 mmol/L (22.0-26.0) H 27.1 mmol/L (22.0-26.0) H Arterial Blood Oxygen Saturation 87.6 % (95-100) *L 97.8 % (95-100) 86.9 % (95-100) *L Arterial Blood Base Excess 4.8 (-2-2) H 4.9 (-2-2) H 4.0 (-2-2) H Freddy Test Positive Positive Positive Assessment/Plan Assessment/Plan Respiratory failure with hypoxia - s/p tracheostomy Sepsis Leukocytosis Aspiration PNA Recurring shock Diarrhea Dehydration/hypernatremia corrected Acute myocardial ischemia Acute renal failure HC assoc PNA UTI Transaminitis, acute CVA/dementia Paroxysmal sinus bradycardia and tachycardia Acute diastolic CHF Severe protein/calorie malnutrition Remains CRITICAL & GUARDED Vent support with trach care. Maintenance IVF hydration while NPO Antimicrobials per ID. Replace lytes as needed. PEG planned DVT prophyl Cardiac monitoring Diuresis based on clinical parameters. Madi Rios MD Oct 01, 2020 02:11
[2020-10-01 04:00] VITALS: BP 100/63
--- NOTE | 2020-10-01 04:00 | NUR ---
NURSE NOTES: Pt remains stable with stable VS. Pt though remained awake and very alert almost the whole night but does not show any signs of distress and saturating >92% all the time at 50% FiO2. Pt remains SR on the monitor.
[2020-10-01] MEDS: DiphenhydrAMINE 50mg/ml Inj IVP PRN ×2 (04:28→10:45)
--- NOTE | 2020-10-01 06:30 | NUR ---
NURSE NOTES: Message sent to Pharmacy for pt's IVF due at 0643.
[2020-10-01] MEDS: D5 1/2NS w/KCL 10meq 1,000 ML IV SCH ×2 (06:50→20:09)
[2020-10-01 07:00] LABS: HEMATOCRIT 20.1 % (42.0-52.0); MEAN CORPUSCULAR VOLUME 85 FL (80-99); PLATELET COUNT 149 K/UL (150-450); RED BLOOD COUNT 2.35 M/UL (4.70-6.10); RED CELL DISTRIBUTION WIDTH 13.7 % (11.6-14.8); WHITE BLOOD COUNT 11.2 K/UL (4.8-10.8)
--- NOTE | 2020-10-01 07:10 | NUR ---
NURSE NOTES: pt in bed eyes open spontaneously. Pt NPO for procedure today. pt on night monitor no signs of cardiac distress. Pt is on ventilator, o2 99. CBc was will be redrawn again H/H result to be double checked. Pt is restless and moving in bed at times. Consent for today's procedure will be signed by doctors electronically, spoke to doctor Bret. bed locked and in lowest position. call light within reach. will continuer to monitor .
[2020-10-01 07:11] LABS: HEMOGLOBIN 6.7 G/DL (14.2-18.0)
--- NOTE | 2020-10-01 07:13 | NUR ---
NURSE NOTES: Lab calls with a hemoglobin of 6.7 which was endorsed to ARTEMIO Phillips. Repeat CBC ordered stat.
--- NOTE | 2020-10-01 07:59 | Anethesia Preoperative Eval ---
Anesthesia Pre-op PMH/ROS General Date of Evaluation: Oct 01, 2020 Time of Evaluation: 07:48 Anesthesiologist: frederick ASA Score: ASA 4 Mallampati Score Class I : Soft palate, uvula, fauces, pillars visible Class II: Soft palate, uvula, fauces visible Class III: Soft palate, base of uvula visible Class IV: Only hard plate visible Mallampati Classification: Class II Surgeon: radha Diagnosis: malnutrition Surgical Procedure: egd/peg placement Anesthesia History: none Social History: smoking - nonsmoker Family History: no anesthesia problems Allergies: Coded Allergies: VANCOMYCIN (Verified Allergy, Severe, hive, 09/28/20) Medications: see eMAR Patient NPO?: Yes NPO Date: Sep 26, 2020 NPO Time: 23:59 Past Medical History Pulmonary: Reports: other - respiratory failure, ventilator dependent, pneumonia Gastrointestinal/Genitourinary: Reports: other - hematuria, uti Neurologic/Psychiatric: Reports: dementia, other - difficulty with mobility, unsteady gait HEENT: Reports: cataract (L), other - blind od Hematology/Immune: Reports: other - severe sepsis, covid-19 negative Musculoskeletal/Integumentary: Reports: other - decubitus ulcer Anesthesia Pre-op Phys. Exam Physician Exam Last Vital Signs Date Time Temp Pulse Resp B/P (MAP) Pulse Ox O2 Delivery O2 Flow Rate FiO2 10/01/20 04:00 70 10/01/20 04:00 Mechanical Ventilator Mechanical Ventilator 10/01/20 04:00 97.9 30 100/63 (75) 95 10/01/20 04:00 50 Respiratory: other - tracheostomy Airway Exam Mallampati Score: Class II MO: limited Neck: tracheostomy TMD: 2fb ROM: limited Anesthesia Pre-op A/P Labs Microbiology Date/Time Source Procedure Growth Status 09/24/20 10:50 Nasopharynx SARS-CoV-2 RdRp Gene Assay - Final Complete 09/18/20 18:30 Stool Clostridium difficile Toxin Assay - Final Complete 09/17/20 12:58 Blood Blood Culture - Final NO GROWTH AFTER 5 DAYS Complete 09/10/20 20:05 Urine,Clean Catch Urine Culture - Final NO GROWTH AFTER 48 HOURS Complete 09/10/20 17:15 Rectum VRE Culture - Final Enterococcus Faecalis - Vre Complete Hematology Test 10/01/20 04:20 White Blood Count 11.2 K/UL (4.8-10.8) H Red Blood Count 2.35 M/UL (4.70-6.10) L Hemoglobin 6.7 G/DL (14.2-18.0) *L Hematocrit 20.1 % (42.0-52.0) L Mean Corpuscular Volume 85 FL (80-99) Mean Corpuscular Hemoglobin 28.3 PG (27.0-31.0) Mean Corpuscular Hemoglobin Concent 33.1 G/DL (32.0-36.0) Red Cell Distribution Width 13.7 % (11.6-14.8) Platelet Count 149 K/UL (150-450) L Mean Platelet Volume 7.0 FL (6.5-10.1) Neutrophils (%) (Auto) % (45.0-75.0) Lymphocytes (%) (Auto) % (20.0-45.0) Monocytes (%) (Auto) % (1.0-10.0) Eosinophils (%) (Auto) % (0.0-3.0) Basophils (%) (Auto) % (0.0-2.0) Neutrophils % (Manual) Pending Lymphocytes % (Manual) Pending Platelet Estimate Pending Platelet Morphology Pending Chemistry Test 10/01/20 04:20 Sodium Level Pending Potassium Level Pending Chloride Level Pending Carbon Dioxide Level Pending Blood Urea Nitrogen Pending Creatinine Pending Estimat Glomerular Filtration Rate Pending Glucose Level Pending Calcium Level Pending Magnesium Level Pending Pro-B-Type Natriuretic Peptide Pending Risk Assessment & Plan Assessment: asa4 Plan: mac Status Change Before Surgery: No Pre-Antibiotics Drug: Rafaela Gray MD Oct 01, 2020 07:59
[2020-10-01 08:00] VITALS: BP 118/65
[2020-10-01] MEDS ORDERED: Midazolam 2mg/2ml Inj IVP PRN (08:00)
[2020-10-01] MEDS ORDERED: Atropine Inj 1mg/10ml Syr IVP PRN (08:00)
[2020-10-01] MEDS ORDERED: DiphenhydrAMINE 50mg/ml Inj IVP PRN (08:00)
[2020-10-01 08:10] LABS: ANION GAP 5 mmol/L (5-15); BLOOD UREA NITROGEN 16 mg/dL (7-18); CALCIUM 7.1 MG/DL (8.5-10.1); CARBON DIOXIDE 27 MMOL/L (21-32); CHLORIDE 108 MMOL/L (98-107); CREATININE 0.8 MG/DL (0.55-1.30); POTASSIUM 3.9 MMOL/L (3.5-5.1); SODIUM 140 MMOL/L (136-145)
--- NOTE | 2020-10-01 08:57 | Urology Progress Note ---
Assessment/Plan Status: stable Assessment/Plan: 1. Gross hematuria. 2. Pyuria and possible UTI. 3. Proteinuria. 4. BPH. 5. Urinary retention. 6. Probable neurogenic bladder. 7. Possible sepsis. monitor clinically maintain andrade, secured to pt's leg hand irrigated and do PRN abx as ordered flomax and proscar cysto electively voiding trial at some point? Subjective Allergies: Coded Allergies: VANCOMYCIN (Verified Allergy, Severe, hive, 09/28/20) Subjective remains on vent, trach 09/27 Objective Last 24 Hour Vital Signs Date Time Temp Pulse Resp B/P (MAP) Pulse Ox O2 Delivery O2 Flow Rate FiO2 10/01/20 04:00 70 10/01/20 04:00 Mechanical Ventilator Mechanical Ventilator 10/01/20 04:00 97.9 74 30 100/63 (75) 95 10/01/20 04:00 50 10/01/20 03:27 64 27 50 10/01/20 00:00 50 10/01/20 00:00 Mechanical Ventilator Mechanical Ventilator 10/01/20 00:00 99.5 68 35 118/75 (89) 97 10/01/20 00:00 86 09/30/20 23:15 86 34 50 09/30/20 21:00 60 09/30/20 20:00 60 09/30/20 20:00 98.8 76 35 105/71 (82) 98 09/30/20 20:00 Mechanical Ventilator Mechanical Ventilator 09/30/20 20:00 82 09/30/20 19:30 92 35 60 09/30/20 16:00 82 09/30/20 16:00 Mechanical Ventilator Mechanical Ventilator 09/30/20 16:00 50 09/30/20 16:00 98.2 90 31 117/69 (85) 97 09/30/20 15:05 88 24 50 09/30/20 12:00 50 09/30/20 12:00 97.9 75 25 115/68 (84) 100 09/30/20 12:00 Mechanical Ventilator Mechanical Ventilator 09/30/20 12:00 75 09/30/20 11:20 75 25 50 09/30/20 10:35 86 29 60 09/30/20 09:00 75 28 60 Intake and Output 09/30/20 10/01/20 19:02 07:02 Intake Total 525 ml 863 ml Output Total 600 ml Balance 525 ml 263 ml IV Total 525 ml 863 ml Tube Feeding 0 ml 0 ml Output Urine Total 600 ml Stool Total 0 ml # Bowel Movements 2 Microbiology Date/Time Source Procedure Growth Status 09/24/20 10:50 Nasopharynx SARS-CoV-2 RdRp Gene Assay - Final Complete 09/18/20 18:30 Stool Clostridium difficile Toxin Assay - Final Complete 09/17/20 12:58 Blood Blood Culture - Final NO GROWTH AFTER 5 DAYS Complete 09/10/20 20:05 Urine,Clean Catch Urine Culture - Final NO GROWTH AFTER 48 HOURS Complete 09/10/20 17:15 Rectum VRE Culture - Final Enterococcus Faecalis - Vre Complete Current Medications Medications (Trade) Dose Ordered Sig/Aleksander Route PRN Reason Start Time Stop Time Status Last Admin Dose Admin Acetaminophen (Tylenol) 650 mg Q4H PRN NG Temp >100.5 09/10/20 23:15 10/10/20 23:14 09/29/20 15:54 Acetaminophen (Tylenol) 650 mg Q4H PRN ORAL Mild Pain (Pain Scale 1-3) 10/01/20 08:00 10/01/20 18:00 Al Hydroxide/Mg Hydroxide (Mylanta) 15 ml Q1H PRN ORAL gi upset 10/01/20 08:00 10/01/20 18:00 Al Hydroxide/Mg Hydroxide (Mylanta) 30 ml Q4H PRN NG Constipation 09/11/20 00:15 10/10/20 23:14 Ascorbic Acid (Vitamin C) 250 mg DAILY NG 09/26/20 09:00 10/18/20 08:59 09/30/20 10:09 Atropine Sulfate (Atropine) 0.5 mg Q5M PRN IVP bpm less than 45 10/01/20 08:00 10/01/20 18:00 Cefazolin Sodium 1 gm/Dextrose 55 ml @ 110 mls/hr ONCE ONCE IVPB 10/01/20 09:30 10/01/20 09:59 Dextrose/ Electrolytes 1,000 ml @ 75 mls/hr [id number] IV 09/29/20 01:30 10/29/20 01:29 10/01/20 06:50 Diphenhydramine HCl (Benadryl) 25 mg Q15M PRN IVP Itching 10/01/20 08:00 10/01/20 18:00 Diphenhydramine HCl (Benadryl) 25 mg Q6H PRN IVP Itching 09/27/20 12:15 10/27/20 12:14 10/01/20 04:28 Diphenoxylate HCl/ Atropine (Lomotil) 2.5 mg Q4H PRN ORAL Diarrhea 09/20/20 08:15 10/20/20 08:14 Finasteride (Proscar) 5 mg DAILY ORAL 09/13/20 09:00 12/12/20 08:59 09/30/20 10:09 Hydralazine HCl (Apresoline) 5 mg Q30M PRN IV SBP>160 OR___/DBP>90 OR___ 10/01/20 08:00 10/01/20 18:00 Linezolid (Zyvox) 600 mg EVERY 12 HOURS NG 09/27/20 14:00 10/02/20 13:59 09/30/20 20:36 Midazolam HCl (Versed 2mg/2ml vial) 1 mg Q15M PRN IVP For Anxiety 10/01/20 08:00 10/01/20 18:00 Multivitamins (Multivitamins W/ Minerals 15ml Liquid) 15 ml DAILY NG 09/26/20 09:00 10/26/20 08:59 09/30/20 10:08 Ondansetron HCl (Zofran) 4 mg Q1H PRN IVP Nausea & Vomiting 10/01/20 08:00 10/01/20 18:00 Ondansetron HCl (Zofran) 4 mg Q6H PRN IVP Nausea & Vomiting 09/10/20 23:15 10/10/20 23:14 Pantoprazole (Protonix) 40 mg DAILY IVP 09/11/20 09:00 10/11/20 08:59 09/30/20 10:07 Sodium Chloride 1,000 ml @ 10 mls/hr Q24H IVLG 10/01/20 08:00 10/01/20 09:59 Tamsulosin HCl (Flomax) 0.4 mg BEDTIME ORAL 09/12/20 21:00 10/12/20 20:59 09/30/20 20:36 Valproic Acid (Depakene) 1,000 mg BEDTIME NG 09/16/20 21:00 10/31/20 20:59 09/30/20 20:37 Zinc Sulfate (Zinc Sulfate) 220 mg DAILY NG 09/26/20 09:00 10/06/20 08:59 09/30/20 10:08 Laboratory Tests 09/30/20 10:53: Arterial Blood pH 7.517H, Arterial Blood Partial Pressure CO2 35.4, Arterial Blood Partial Pressure O2 129.7H, Arterial Blood HCO3 28.1H, Arterial Blood Oxygen Saturation 97.8, Arterial Blood Base Excess 4.9H, Freddy Test Positive 09/30/20 18:30: Arterial Blood pH 7.514H, Arterial Blood Partial Pressure CO2 34.4L, Arterial Blood Partial Pressure O2 47.7*L, Arterial Blood HCO3 27.1H, Arterial Blood Oxygen Saturation 86.9*L, Arterial Blood Base Excess 4.0H, Freddy Test Positive 10/01/20 04:20: White Blood Count 11.2H, Red Blood Count 2.35L, Hemoglobin 6.7*L, Hematocrit 20.1L, Mean Corpuscular Volume 85, Mean Corpuscular Hemoglobin 28.3, Mean Corpuscular Hemoglobin Concent 33.1, Red Cell Distribution Width 13.7, Platelet Count 149L, Mean Platelet Volume 7.0, Neutrophils (%) (Auto) , Lymphocytes (%) (Auto) , Monocytes (%) (Auto) , Eosinophils (%) (Auto) , Basophils (%) (Auto) , Neutrophils % (Manual) [Pending], Lymphocytes % (Manual) [Pending], Platelet Estimate [Pending], Platelet Morphology [Pending], Sodium Level 140, Potassium Level 3.9, Chloride Level 108H, Carbon Dioxide Level 27, Anion Gap 5, Blood Urea Nitrogen 16, Creatinine 0.8, Estimat Glomerular Filtration Rate > 60, Glucose Level 72L, Calcium Level 7.1L, Magnesium Level 2.1, Pro-B-Type Natriuretic Peptide [Pending] 10/01/20 08:03: Arterial Blood pH 7.537H, Arterial Blood Partial Pressure CO2 29.1L, Arterial Blood Partial Pressure O2 131.0H, Arterial Blood HCO3 24.2, Arterial Blood Oxygen Saturation 97.7, Arterial Blood Base Excess 1.6, Freddy Test Positive Height (Feet): 6 Height (Inches): 1.00 Weight (Pounds): 148 Objective exam stable urine clearing Levi Brunson MD Oct 01, 2020 08:57
--- NOTE | 2020-10-01 09:01 | General Progress Note ---
Subjective ROS Limited/Unobtainable: Yes Allergies: Coded Allergies: VANCOMYCIN (Verified Allergy, Severe, hive, 09/28/20) Subjective on vent contracted trach placed oxygenation noted now in ASTER anemic Objective Last 24 Hour Vital Signs Date Time Temp Pulse Resp B/P (MAP) Pulse Ox O2 Delivery O2 Flow Rate FiO2 10/01/20 04:00 70 10/01/20 04:00 Mechanical Ventilator Mechanical Ventilator 10/01/20 04:00 97.9 74 30 100/63 (75) 95 10/01/20 04:00 50 10/01/20 03:27 64 27 50 10/01/20 00:00 50 10/01/20 00:00 Mechanical Ventilator Mechanical Ventilator 10/01/20 00:00 99.5 68 35 118/75 (89) 97 10/01/20 00:00 86 09/30/20 23:15 86 34 50 09/30/20 21:00 60 09/30/20 20:00 60 09/30/20 20:00 98.8 76 35 105/71 (82) 98 09/30/20 20:00 Mechanical Ventilator Mechanical Ventilator 09/30/20 20:00 82 09/30/20 19:30 92 35 60 09/30/20 16:00 82 09/30/20 16:00 Mechanical Ventilator Mechanical Ventilator 09/30/20 16:00 50 09/30/20 16:00 98.2 90 31 117/69 (85) 97 09/30/20 15:05 88 24 50 09/30/20 12:00 50 09/30/20 12:00 97.9 75 25 115/68 (84) 100 09/30/20 12:00 Mechanical Ventilator Mechanical Ventilator 09/30/20 12:00 75 09/30/20 11:20 75 25 50 09/30/20 10:35 86 29 60 09/30/20 09:00 75 28 60 Intake and Output 09/30/20 10/01/20 19:02 07:02 Intake Total 525 ml 863 ml Output Total 600 ml Balance 525 ml 263 ml IV Total 525 ml 863 ml Tube Feeding 0 ml 0 ml Output Urine Total 600 ml Stool Total 0 ml # Bowel Movements 2 Laboratory Tests 09/30/20 10:53: Arterial Blood pH 7.517H, Arterial Blood Partial Pressure CO2 35.4, Arterial Blood Partial Pressure O2 129.7H, Arterial Blood HCO3 28.1H, Arterial Blood Oxygen Saturation 97.8, Arterial Blood Base Excess 4.9H, Freddy Test Positive 09/30/20 18:30: Arterial Blood pH 7.514H, Arterial Blood Partial Pressure CO2 34.4L, Arterial Blood Partial Pressure O2 47.7*L, Arterial Blood HCO3 27.1H, Arterial Blood Oxygen Saturation 86.9*L, Arterial Blood Base Excess 4.0H, Freddy Test Positive 10/01/20 04:20: White Blood Count 11.2H, Red Blood Count 2.35L, Hemoglobin 6.7*L, Hematocrit 20.1L, Mean Corpuscular Volume 85, Mean Corpuscular Hemoglobin 28.3, Mean Corpuscular Hemoglobin Concent 33.1, Red Cell Distribution Width 13.7, Platelet Count 149L, Mean Platelet Volume 7.0, Neutrophils (%) (Auto) , Lymphocytes (%) (Auto) , Monocytes (%) (Auto) , Eosinophils (%) (Auto) , Basophils (%) (Auto) , Neutrophils % (Manual) [Pending], Lymphocytes % (Manual) [Pending], Platelet Estimate [Pending], Platelet Morphology [Pending], Sodium Level 140, Potassium Level 3.9, Chloride Level 108H, Carbon Dioxide Level 27, Anion Gap 5, Blood Urea Nitrogen 16, Creatinine 0.8, Estimat Glomerular Filtration Rate > 60, Glucose Level 72L, Calcium Level 7.1L, Magnesium Level 2.1, Pro-B-Type Natriuretic Peptide [Pending] 10/01/20 08:03: Arterial Blood pH 7.537H, Arterial Blood Partial Pressure CO2 29.1L, Arterial Blood Partial Pressure O2 131.0H, Arterial Blood HCO3 24.2, Arterial Blood Oxygen Saturation 97.7, Arterial Blood Base Excess 1.6, Freddy Test Positive Height (Feet): 6 Height (Inches): 1.00 Weight (Pounds): 148 Objective WDWN chronically ill trach in place feeding tube in place reduced breath sounds bilaterally with scattered rhonchi [id number] without MRG NABS nontender no CCE nonfocal poor LOC Assessment/Plan Status: stable Assessment/Plan: IMPRESSION: 1. Acute renal failure. 2. Hypernatremia. 3. Leukocytosis. 4. Possible sepsis. 5. Hypotension. 6. Dementia. 7. Acute on chronic encephalopathy. 8. bcx staph Epi 9. MRSA colonized 10. acute hypoxemic respiratory failure 11. atelectasis/collapse 12. leukocytosis 13. trach PLAN transfuse taper fio2 as able taper PEEP as able ID noted; monitor follow up on antibiotics monitor renal parameters monitor oxygen needs vent support full for now off load monitor lytes position change monitor imaging d/w consultants and nursing remains critical trach care GT NEEDED FOR ONGOING MANAGEMENT AND NUTRITION; NO FAMILY AVAILABLE subacute placement impression, plan, and exam edited and reviewed in detail care discussed with Patel Tesfaye MD Oct 01, 2020 09:01
--- NOTE | 2020-10-01 09:27 | NUR ---
NURSE NOTES: notified doctor Lexi about latest ABG results, Jacklyn is covering now, waiting for new orders.
[2020-10-01] MEDS ORDERED: ceFAZolin sod 1 GM in D5W 55 ML IVPB ONE (09:30)
[2020-10-01 09:35] LABS: HEMATOCRIT 20.6 % (42.0-52.0); MEAN CORPUSCULAR VOLUME 83 FL (80-99); PLATELET COUNT 161 K/UL (150-450); RED CELL DISTRIBUTION WIDTH 15.2 % (11.6-14.8); WHITE BLOOD COUNT 10.9 K/UL (4.8-10.8)
[2020-10-01] MEDS: Multivitamins W/Minerals 15 ML UDC NG SCH (10:41)
[2020-10-01] MEDS: Ascorbic Acid 500mg tab NG SCH (10:42)
[2020-10-01] MEDS: Zinc Sulfate 220mg NG SCH (10:43)
[2020-10-01] MEDS: Pantoprazole Inj IVP SCH (10:43)
--- NOTE | 2020-10-01 11:02 | General Progress Note ---
Subjective Allergies: Coded Allergies: VANCOMYCIN (Verified Allergy, Severe, hive, 09/28/20) Subjective above noted d/w RN no family or next of kin to discuss PEG, scheduled for this am H&H lower today, confirmed at hg 7.0 No melena, hematuria, or ecchymosis transfusion order noted - to receive soon d/w cardiology and pulmonary this am - patient still cleared for PEG PEG is felt to be urgently needed to provide enteral nutrition and to prevent complications of tiller man NGT since no family available, will proceed based on physician decision Objective Last 24 Hour Vital Signs Date Time Temp Pulse Resp B/P (MAP) Pulse Ox O2 Delivery O2 Flow Rate FiO2 10/01/20 07:18 69 29 50 10/01/20 04:00 70 10/01/20 04:00 Mechanical Ventilator Mechanical Ventilator 10/01/20 04:00 97.9 74 30 100/63 (75) 95 10/01/20 04:00 50 10/01/20 03:27 64 27 50 10/01/20 00:00 50 10/01/20 00:00 Mechanical Ventilator Mechanical Ventilator 10/01/20 00:00 99.5 68 35 118/75 (89) 97 10/01/20 00:00 86 09/30/20 23:15 86 34 50 09/30/20 21:00 60 09/30/20 20:00 60 09/30/20 20:00 98.8 76 35 105/71 (82) 98 09/30/20 20:00 Mechanical Ventilator Mechanical Ventilator 09/30/20 20:00 82 09/30/20 19:30 92 35 60 09/30/20 16:00 82 09/30/20 16:00 Mechanical Ventilator Mechanical Ventilator 09/30/20 16:00 50 09/30/20 16:00 98.2 90 31 117/69 (85) 97 09/30/20 15:05 88 24 50 09/30/20 12:00 50 09/30/20 12:00 97.9 75 25 115/68 (84) 100 09/30/20 12:00 Mechanical Ventilator Mechanical Ventilator 09/30/20 12:00 75 09/30/20 11:20 75 25 50 Intake and Output 09/30/20 10/01/20 19:00 07:00 Intake Total 525 ml 863 ml Output Total 600 ml Balance 525 ml 263 ml IV Total 525 ml 863 ml Tube Feeding 0 ml 0 ml Output Urine Total 600 ml Stool Total 0 ml # Bowel Movements 2 Laboratory Tests 09/30/20 18:30: Arterial Blood pH 7.514H, Arterial Blood Partial Pressure CO2 34.4L, Arterial Blood Partial Pressure O2 47.7*L, Arterial Blood HCO3 27.1H, Arterial Blood Oxygen Saturation 86.9*L, Arterial Blood Base Excess 4.0H, Freddy Test Positive 10/01/20 04:20: White Blood Count 11.2H, Red Blood Count 2.35L, Hemoglobin 6.7*L, Hematocrit 20.1L, Mean Corpuscular Volume 85, Mean Corpuscular Hemoglobin 28.3, Mean Corpuscular Hemoglobin Concent 33.1, Red Cell Distribution Width 13.7, Platelet Count 149L, Mean Platelet Volume 7.0, Neutrophils (%) (Auto) , Lymphocytes (%) (Auto) , Monocytes (%) (Auto) , Eosinophils (%) (Auto) , Basophils (%) (Auto) , Differential Total Cells Counted 100, Neutrophils % (Manual) 88H, Lymphocytes % (Manual) 5L, Monocytes % (Manual) 7, Eosinophils % (Manual) 0, Basophils % (Manual) 0, Band Neutrophils 0, Platelet Estimate Adequate, Platelet Morphology Normal, Hypochromasia 1+, Sodium Level 140, Potassium Level 3.9, Chloride Level 108H, Carbon Dioxide Level 27, Anion Gap 5, Blood Urea Nitrogen 16, Creatinine 0.8, Estimat Glomerular Filtration Rate > 60, Glucose Level 72L, Calcium Level 7.1L, Magnesium Level 2.1, Pro-B-Type Natriuretic Peptide [Pending] 10/01/20 08:03: Arterial Blood pH 7.537H, Arterial Blood Partial Pressure CO2 29.1L, Arterial Blood Partial Pressure O2 131.0H, Arterial Blood HCO3 24.2, Arterial Blood Oxygen Saturation 97.7, Arterial Blood Base Excess 1.6, Freddy Test Positive 10/01/20 09:15: White Blood Count 10.9H, Red Blood Count 2.50L, Hemoglobin 7.0L, Hematocrit 20.6L, Mean Corpuscular Volume 83, Mean Corpuscular Hemoglobin 28.2, Mean Corpuscular Hemoglobin Concent 34.2, Red Cell Distribution Width 15.2H, Platelet Count 161, Mean Platelet Volume 7.2, Neutrophils (%) (Auto) , Lymphocytes (%) (Auto) , Monocytes (%) (Auto) , Eosinophils (%) (Auto) , Basophils (%) (Auto) , Neutrophils % (Manual) [Pending], Lymphocytes % (Manual) [Pending], Platelet Estimate [Pending], Platelet Morphology [Pending] Height (Feet): 6 Height (Inches): 1.00 Weight (Pounds): 148 Objective Thin WM on vent/trach restness, awake but confused Skin: no hematoma or ecchymossis HEENT NCAT supple, (+) trach coarse ronchi RR, slightly tachy abd soft flat ND no edema Assessment/Plan Status: stable Assessment/Plan: Assessment - Lower H&H, - no clinical source of acute blood loss - possibly due to volume shifting/ redistribution - vitals stable, no pressing indication to postpone PEG - will get transfused and followed - resp failure - NGT dependent - OBS/Dementia - sepsis - diarrhea, C Diff (-) - Azotemia, resolved - CHF - malnutrition , low albumin - leukocytosis - hypernatremia Recommendations -Vent care / support - cards and pulm follow up - supportive care - abx - PPI - EGD with PEG this am as planned Deborah Cabrera MD Oct 01, 2020 11:02
--- NOTE | 2020-10-01 11:04 | Pre-Procedure Note/Attestation ---
Pre-Procedure Note/Attestation Complete Prior to Procedure Planned Procedure: not applicable Procedure Narrative: EGD, PEG Indications for Procedure Pre-Operative Diagnosis: Dysphagia Attestation I attest that I am unable to discuss the nature of the procedure; its benefits; risks and complications; and alternatives (and the risks and benefits of such alternatives), prior to the procedure, with the patient (or the patient's legal shared services representative) since the patient unable to give consent based on confused mental status, and since no next of kin or DPOA known I attest that I re-evaluated the patient just prior to the surgery and that there has been no change in the patient's H&P, except as documented in my pre op progress note Deborah Cabrera MD Oct 01, 2020 11:04
[2020-10-01] MEDS ORDERED: Atropine Sulfate 0.4mg/ml inj ONE (11:23)
[2020-10-01 12:00] VITALS: BP 107/62
[2020-10-01] MEDS ORDERED: Lidocaine 1% MPF 10mg/ml 5ml ONE (12:00)
[2020-10-01] MEDS ORDERED: fentaNYL 100 mcg/2 mL IV ONE (12:00)
--- NOTE | 2020-10-01 12:03 | Infectious Diseases Prog Note ---
Assessment/Plan Assessment/Plan antibiotics : linezolid A 1. MRSA Pneumonia s/p rx COVID-19 test is negative. 2. Dementia. 3. Leukocytosis improving 4. Urinary tract infection 5. + blood cultures with coag neg staph likely contaminated 6. respiratory failure s/p tracheostomy 7. allergic reaction to vancomycin P 1. d/c linezolid 2. observe off antibiotics Subjective ROS Limited/Unobtainable: Yes Allergies: Coded Allergies: VANCOMYCIN (Verified Allergy, Severe, hive, 09/28/20) Objective Last 24 Hour Vital Signs Date Time Temp Pulse Resp B/P (MAP) Pulse Ox O2 Delivery O2 Flow Rate FiO2 10/01/20 07:18 69 29 50 10/01/20 04:00 70 10/01/20 04:00 Mechanical Ventilator Mechanical Ventilator 10/01/20 04:00 97.9 74 30 100/63 (75) 95 10/01/20 04:00 50 10/01/20 03:27 64 27 50 10/01/20 00:00 50 10/01/20 00:00 Mechanical Ventilator Mechanical Ventilator 10/01/20 00:00 99.5 68 35 118/75 (89) 97 10/01/20 00:00 86 09/30/20 23:15 86 34 50 09/30/20 21:00 60 09/30/20 20:00 60 09/30/20 20:00 98.8 76 35 105/71 (82) 98 09/30/20 20:00 Mechanical Ventilator Mechanical Ventilator 09/30/20 20:00 82 09/30/20 19:30 92 35 60 09/30/20 16:00 82 09/30/20 16:00 Mechanical Ventilator Mechanical Ventilator 09/30/20 16:00 50 09/30/20 16:00 98.2 90 31 117/69 (85) 97 09/30/20 15:05 88 24 50 Height (Feet): 6 Height (Inches): 1.00 Weight (Pounds): 148 HEENT: status post trach Respiratory/Chest: lungs clear Cardiovascular: normal rate, regular rhythm, no gallop/murmur Abdomen: soft, non tender Extremities: no edema Laboratory Tests Test 09/30/20 18:30 10/01/20 04:20 10/01/20 08:03 10/01/20 09:15 Arterial Blood pH 7.514 (7.350-7.450) 7.537 (7.350-7.450) Arterial Blood Partial Pressure CO2 34.4 mmHg (35.0-45.0) L 29.1 mmHg (35.0-45.0) L Arterial Blood Partial Pressure O2 47.7 mmHg (75.0-100.0) 131.0 mmHg (75.0-100.0) H Arterial Blood HCO3 27.1 mmol/L (22.0-26.0) H 24.2 mmol/L (22.0-26.0) Arterial Blood Oxygen Saturation 86.9 % (95-100) *L 97.7 % (95-100) Arterial Blood Base Excess 4.0 (-2-2) H 1.6 (-2-2) Freddy Test Positive Positive White Blood Count 11.2 K/UL (4.8-10.8) H 10.9 K/UL (4.8-10.8) H Red Blood Count 2.35 M/UL (4.70-6.10) L 2.50 M/UL (4.70-6.10) L Hemoglobin 6.7 G/DL (14.2-18.0) *L 7.0 G/DL (14.2-18.0) L Hematocrit 20.1 % (42.0-52.0) L 20.6 % (42.0-52.0) L Mean Corpuscular Volume 85 FL (80-99) 83 FL (80-99) Mean Corpuscular Hemoglobin 28.3 PG (27.0-31.0) 28.2 PG (27.0-31.0) Mean Corpuscular Hemoglobin Concent 33.1 G/DL (32.0-36.0) 34.2 G/DL (32.0-36.0) Red Cell Distribution Width 13.7 % (11.6-14.8) 15.2 % (11.6-14.8) H Platelet Count 149 K/UL (150-450) L 161 K/UL (150-450) Mean Platelet Volume 7.0 FL (6.5-10.1) 7.2 FL (6.5-10.1) Neutrophils (%) (Auto) % (45.0-75.0) % (45.0-75.0) Lymphocytes (%) (Auto) % (20.0-45.0) % (20.0-45.0) Monocytes (%) (Auto) % (1.0-10.0) % (1.0-10.0) Eosinophils (%) (Auto) % (0.0-3.0) % (0.0-3.0) Basophils (%) (Auto) % (0.0-2.0) % (0.0-2.0) Differential Total Cells Counted 100 100 Neutrophils % (Manual) 88 % (45-75) H 79 % (45-75) H Lymphocytes % (Manual) 5 % (20-45) L 8 % (20-45) L Monocytes % (Manual) 7 % (1-10) 10 % (1-10) Eosinophils % (Manual) 0 % (0-3) 3 % (0-3) Basophils % (Manual) 0 % (0-2) 0 % (0-2) Band Neutrophils 0 % (0-8) 0 % (0-8) Platelet Estimate Adequate Adequate Platelet Morphology Normal Normal Hypochromasia 1+ 1+ Sodium Level 140 MMOL/L (136-145) Potassium Level 3.9 MMOL/L (3.5-5.1) Chloride Level 108 MMOL/L (98-107) H Carbon Dioxide Level 27 MMOL/L (21-32) Anion Gap 5 mmol/L (5-15) Blood Urea Nitrogen 16 mg/dL (7-18) Creatinine 0.8 MG/DL (0.55-1.30) Estimat Glomerular Filtration Rate > 60 mL/min (>60) Glucose Level 72 MG/DL (74-106) L Calcium Level 7.1 MG/DL (8.5-10.1) L Magnesium Level 2.1 MG/DL (1.8-2.4) Pro-B-Type Natriuretic Peptide Pending Anisocytosis 1+ Current Medications Medications (Trade) Dose Ordered Sig/Aleksander Route PRN Reason Start Time Stop Time Status Last Admin Dose Admin Acetaminophen (Tylenol) 650 mg Q4H PRN NG Temp >100.5 09/10/20 23:15 10/10/20 23:14 09/29/20 15:54 Acetaminophen (Tylenol) 650 mg Q4H PRN ORAL Mild Pain (Pain Scale 1-3) 10/01/20 08:00 10/01/20 18:00 Al Hydroxide/Mg Hydroxide (Mylanta) 15 ml Q1H PRN ORAL gi upset 10/01/20 08:00 10/01/20 18:00 Al Hydroxide/Mg Hydroxide (Mylanta) 30 ml Q4H PRN NG Constipation 09/11/20 00:15 10/10/20 23:14 Ascorbic Acid (Vitamin C) 250 mg DAILY NG 09/26/20 09:00 10/18/20 08:59 10/01/20 10:42 Atropine Sulfate (Atropine) 0.5 mg Q5M PRN IVP bpm less than 45 10/01/20 08:00 10/01/20 18:00 Dextrose/ Electrolytes 1,000 ml @ 75 mls/hr [id number] IV 09/29/20 01:30 10/29/20 01:29 10/01/20 06:50 Diphenhydramine HCl (Benadryl) 25 mg Q15M PRN IVP Itching 10/01/20 08:00 10/01/20 18:00 Diphenhydramine HCl (Benadryl) 25 mg Q6H PRN IVP Itching 09/27/20 12:15 10/27/20 12:14 10/01/20 10:45 Diphenoxylate HCl/ Atropine (Lomotil) 2.5 mg Q4H PRN ORAL Diarrhea 09/20/20 08:15 10/20/20 08:14 Finasteride (Proscar) 5 mg DAILY ORAL 09/13/20 09:00 12/12/20 08:59 10/01/20 10:43 Hydralazine HCl (Apresoline) 5 mg Q30M PRN IV SBP>160 OR___/DBP>90 OR___ 10/01/20 08:00 10/01/20 18:00 Linezolid (Zyvox) 600 mg EVERY 12 HOURS NG 09/27/20 14:00 10/02/20 13:59 10/01/20 10:42 Midazolam HCl (Versed 2mg/2ml vial) 1 mg Q15M PRN IVP For Anxiety 10/01/20 08:00 10/01/20 18:00 Multivitamins (Multivitamins W/ Minerals 15ml Liquid) 15 ml DAILY NG 09/26/20 09:00 10/26/20 08:59 10/01/20 10:41 Ondansetron HCl (Zofran) 4 mg Q1H PRN IVP Nausea & Vomiting 10/01/20 08:00 10/01/20 18:00 Ondansetron HCl (Zofran) 4 mg Q6H PRN IVP Nausea & Vomiting 09/10/20 23:15 10/10/20 23:14 Pantoprazole (Protonix) 40 mg DAILY IVP 09/11/20 09:00 10/11/20 08:59 10/01/20 10:43 Tamsulosin HCl (Flomax) 0.4 mg BEDTIME ORAL 09/12/20 21:00 10/12/20 20:59 09/30/20 20:36 Valproic Acid (Depakene) 1,000 mg BEDTIME NG 09/16/20 21:00 10/31/20 20:59 09/30/20 20:37 Zinc Sulfate (Zinc Sulfate) 220 mg DAILY NG 09/26/20 09:00 10/06/20 08:59 10/01/20 10:43 Martha Collins MD Oct 01, 2020 12:03
--- NOTE | 2020-10-01 12:38 | Immediate Post-Op Evaluation ---
Immediate Post-Op Evalulation Immediate Post-Op Evalulation Procedure: EGD PEG placement Date of Evaluation: Oct 01, 2020 Time of Evaluation: 12:37 IV Fluids: 150 Blood Products: none Estimated Blood Loss: min Urinary Output: none Blood Pressure Systolic: 102 Blood Pressure Diastolic: 56 Pulse Rate: 78 Respiratory Rate: 20 O2 Sat by Pulse Oximetry: 99 Temperature (Fahrenheit): 97.6 Pain Score (1-10): 1 Nausea: No Vomiting: No Complications none Patient Status: no response, ventilated, none Hydration Status: adequate Dewayne Eden MD Oct 01, 2020 12:38
--- NOTE | 2020-10-01 12:39 | 48 Hour Post Anesthesia Eval ---
Post Anesthesia Evaluation Procedure: EGD PEG placement Date of Evaluation: Oct 01, 2020 Time of Evaluation: 13:02 Blood Pressure Systolic: 107 0: 54 Pulse Rate: 78 Respiratory Rate: 22 Temperature (Fahrenheit): 97.6 O2 Sat by Pulse Oximetry: 98 Airway: patent, other - tracheostomy in place Nausea: No Vomiting: No Pain Intensity: 1 Hydration Status: adequate Cardiopulmonary Status: stable Mental Status/LOC: patient returned to baseline Follow-up Care/Observations: n/a Post-Anesthesia Complications: none Follow-up care needed: N/A Dewayne Eden MD Oct 01, 2020 12:39
--- NOTE | 2020-10-01 12:53 | NUR ---
CASE MANAGEMENT:REVIEW SI;RESP FAILURE S/P TRACH TRACH/VENT DEPENDENT,SEPSIS 99.5 86 35 100/63 95% TRACH/VENT FIO2 50% WBC 10.9 H/H 6.7/20.1 BG 72 CA 7.1 IS;IVF D5W @ 75 ML/HR BENADRYL IV Q6 PRN ZINC SULFATE NG QD VIT C NG QD PROTONIX IV QD DEPAKENE NG HS ASTER STATUS DCP;TO [facility]; EGD TODAY TRANSFUSE PRBC
[2020-10-01 16:00] VITALS: BP_SYST 114; BP_SYST 117; BP_DIAS 61; BP_DIAS 69
--- NOTE | 2020-10-01 16:11 | Surgery Progress Note ---
Surgery Progress Note Subjective Procedure Performed tracheostomy Additional Comments agitated labs improved slowly stable no n/v Objective Last 24 Hour Vital Signs Date Time Temp Pulse Resp B/P (MAP) Pulse Ox O2 Delivery O2 Flow Rate FiO2 10/01/20 16:00 45 10/01/20 12:39 78 22 98 10/01/20 12:38 78 20 99 10/01/20 12:00 45 10/01/20 08:00 50 10/01/20 08:00 99.0 67 30 118/65 (82) 100 10/01/20 07:18 69 29 50 10/01/20 04:00 70 10/01/20 04:00 Mechanical Ventilator Mechanical Ventilator 10/01/20 04:00 97.9 74 30 100/63 (75) 95 10/01/20 04:00 50 10/01/20 03:27 64 27 50 10/01/20 00:00 50 10/01/20 00:00 Mechanical Ventilator Mechanical Ventilator 10/01/20 00:00 99.5 68 35 118/75 (89) 97 10/01/20 00:00 86 09/30/20 23:15 86 34 50 09/30/20 21:00 60 09/30/20 20:00 60 09/30/20 20:00 98.8 76 35 105/71 (82) 98 09/30/20 20:00 Mechanical Ventilator Mechanical Ventilator 09/30/20 20:00 82 09/30/20 19:30 92 35 60 I&O Intake and Output 09/30/20 10/01/20 19:00 07:00 Intake Total 525 ml 863 ml Output Total 600 ml Balance 525 ml 263 ml IV Total 525 ml 863 ml Tube Feeding 0 ml 0 ml Output Urine Total 600 ml Stool Total 0 ml # Bowel Movements 2 Dressing: saturated Cardiovascular: RSR Respiratory: decreased breath sounds Abdomen: tenderness, present bowel sounds Extremities: no tenderness, no cyanosis Laboratory Tests Test 09/30/20 18:30 10/01/20 04:20 10/01/20 08:03 10/01/20 09:15 Arterial Blood pH 7.514 (7.350-7.450) 7.537 (7.350-7.450) Arterial Blood Partial Pressure CO2 34.4 mmHg (35.0-45.0) L 29.1 mmHg (35.0-45.0) L Arterial Blood Partial Pressure O2 47.7 mmHg (75.0-100.0) 131.0 mmHg (75.0-100.0) H Arterial Blood HCO3 27.1 mmol/L (22.0-26.0) H 24.2 mmol/L (22.0-26.0) Arterial Blood Oxygen Saturation 86.9 % (95-100) *L 97.7 % (95-100) Arterial Blood Base Excess 4.0 (-2-2) H 1.6 (-2-2) Freddy Test Positive Positive White Blood Count 11.2 K/UL (4.8-10.8) H 10.9 K/UL (4.8-10.8) H Red Blood Count 2.35 M/UL (4.70-6.10) L 2.50 M/UL (4.70-6.10) L Hemoglobin 6.7 G/DL (14.2-18.0) *L 7.0 G/DL (14.2-18.0) L Hematocrit 20.1 % (42.0-52.0) L 20.6 % (42.0-52.0) L Mean Corpuscular Volume 85 FL (80-99) 83 FL (80-99) Mean Corpuscular Hemoglobin 28.3 PG (27.0-31.0) 28.2 PG (27.0-31.0) Mean Corpuscular Hemoglobin Concent 33.1 G/DL (32.0-36.0) 34.2 G/DL (32.0-36.0) Red Cell Distribution Width 13.7 % (11.6-14.8) 15.2 % (11.6-14.8) H Platelet Count 149 K/UL (150-450) L 161 K/UL (150-450) Mean Platelet Volume 7.0 FL (6.5-10.1) 7.2 FL (6.5-10.1) Neutrophils (%) (Auto) % (45.0-75.0) % (45.0-75.0) Lymphocytes (%) (Auto) % (20.0-45.0) % (20.0-45.0) Monocytes (%) (Auto) % (1.0-10.0) % (1.0-10.0) Eosinophils (%) (Auto) % (0.0-3.0) % (0.0-3.0) Basophils (%) (Auto) % (0.0-2.0) % (0.0-2.0) Differential Total Cells Counted 100 100 Neutrophils % (Manual) 88 % (45-75) H 79 % (45-75) H Lymphocytes % (Manual) 5 % (20-45) L 8 % (20-45) L Monocytes % (Manual) 7 % (1-10) 10 % (1-10) Eosinophils % (Manual) 0 % (0-3) 3 % (0-3) Basophils % (Manual) 0 % (0-2) 0 % (0-2) Band Neutrophils 0 % (0-8) 0 % (0-8) Platelet Estimate Adequate Adequate Platelet Morphology Normal Normal Hypochromasia 1+ 1+ Sodium Level 140 MMOL/L (136-145) Potassium Level 3.9 MMOL/L (3.5-5.1) Chloride Level 108 MMOL/L (98-107) H Carbon Dioxide Level 27 MMOL/L (21-32) Anion Gap 5 mmol/L (5-15) Blood Urea Nitrogen 16 mg/dL (7-18) Creatinine 0.8 MG/DL (0.55-1.30) Estimat Glomerular Filtration Rate > 60 mL/min (>60) Glucose Level 72 MG/DL (74-106) L Calcium Level 7.1 MG/DL (8.5-10.1) L Magnesium Level 2.1 MG/DL (1.8-2.4) Pro-B-Type Natriuretic Peptide Pending Anisocytosis 1+ Plan Problems: (1) Fever Assessment & Plan: maybe developing pneumonia cont abx pulm input thank you (2) Decubitus skin ulcer Assessment & Plan: Patient identified on admission to have multiple scabs on the left arm. mild open scabs with eschar. no drainage. no significant cellulitis. bruising no bilateral extremities noted. no signs of abuse. likely from agitation Sacral coccygeal noted to have a DTI 4.3X2.5CM. which is dark purple . RECOMMEND-CLEAN WITH SALINE, PAT DRY AND APPLY CALAZINE. COVER WITH OPTIFOAM DRESSING. REPLACE EVERY 3 DAYS OR NEEDED LEFT ISCHIUM- STAGE I PRESSURE ULCER MEASURES 4.5X1.7CM. NON-BLANCHABLE ERYTHEMA. RECOMMEND- APPLY CALAZINE AND COVER WITH OPTIFOAM DRESSING. REPLACE EVERY 7 DAYS. Turn q2h off load pressure with pillow off load heels nutritional optimization CAUSE ANALYST eval will follow with recs thank you (3) Malnutrition Assessment & Plan: Mr. Roman is a 70 year old male BIBA to ED of [facility] on 09/10/2020 around 14:00 due to fever. He was found to be hypotensive 91/55 (67), Temp: 100.0, leukocytosis 20.8k and subsequently transferred to ICU for septic shock. The blood culture is reportedly positive for gram positive cocci. NG tube was placed, KUB confirmed the placement to day. Pt is clinically stable with leukocytosis 20.1, improved BUN and creatine, stable hemodynamic without vasopressor. Findings: Mr. Roman is disoriented. He does ot follow commands at this time. Oral cavity is noted to be dried blood concretion likely from NG trauma. No active bleeding site is seen. Due to his level f alertness, already NG tube is in placed, PO trial was not done at this time. Transferred out ICU last night. He is non on tele. Issues: multiple wounds, s.p balaji/nasal/pharyngeal bleeding with blood culture Gram positive cocci leukocytosis trending down from 20k-20k-16k BUN/Creatine trending down from 93/1.9-79/1.3-54/1.1 Temp: 98.1~98.7, Pulse: 62~72, BP: 105/67~120/48, SPO2 98~100% on 2 liter S: Oral cavity is better condition comparison to yesterday. The mucosa is severely erythema without active bleeding. Limited level of alertness for direct therapy. NG in placed O: 1. Laryngeal palpation to trigger spontaneous cough and swallow: Pt triggered cough with laryngeal palpation. Approximately 5~10 seconds after coughing, he triggered swallow. based on this observation, he presents with copious secretion in pharynx and larynx. He continued to have poor secretion management at laryngeal level at this time. NO PO trial was given due to poor secretion at the level of air way with low level of alertness. A: 1. Probable aspiration of his own secretion with poor ability to cough and swallow 2. Dysphagia P: 1. NPO for now 2. Observe his secretion, and level of alertness for PO readiness. DAILY ESTIMATED NEEDS: Needs based on Wound, underweight/ 55kg 30-35 kcals/kg 2213-8329 total kcals 1.25-2 g protein/kg 69-110 g total protein 25-30 mL/kg 1831-1492 total fluid mLs NUTRITION DIAGNOSIS: Increased kcal/prot needs R/T wound healing and underweight status as evidenced by pt admitted w/ wounds including DTI 2 coccyx and stage 1 @ lt ischium, pt @ 73% IBW w/ low BMI per guidelines, s/p NGT insertion, on NGT feeds. CURRENT TF:Jevity 1.2 @ 50ml/hr x 24 hrs ENTERAL NUTRITION RECOMMENDATIONS: Jevity 1.2 @ 60ml/hr x 24 hrs to provide 1440ml, 1728kcal, 80g prot, 1160ml free water * As medically appropriate, increase goal rate to 60ml/hr x 24 hrs to meet 100% est kcal/prot needs * HOB over 30 degrees/ without IVF, H2O flush of 100ml q 8hrs ADDITIONAL RECOMMENDATIONS: * Calibrated daily bedscale wt Per SNF: HT=70" * Wound healing: TF rec @ goal will provide 100% RDI add Vit C 250mg QD, ZnSO4 220mg QD x 10days, Davidson BID via NGT * Monitor BGs, need for NISS w/ TF * Monitor lytes, replete as needed- high risk for refeeding syndrome -> check f/up phos and mag (4) Severe sepsis Assessment & Plan: will likely need trach and peg. patient needs protected airway and nutrition full code no family and unable to consent medically necessary. will plan soon (5) Open upper arm wound (6) Hematuria Assessment & Plan: as per urology Aubrey Gutierrez Oct 01, 2020 16:10
--- NOTE | 2020-10-01 17:53 | General Progress Note ---
Subjective ROS Limited/Unobtainable: No Constitutional: Reports: malaise, weakness HEENT: Reports: no symptoms Cardiovascular: Reports: no symptoms Respiratory: Reports: cough, shortness of breath, sputum Gastrointestinal/Abdominal: Reports: difficulty swallowing Genitourinary: Reports: no symptoms Neurologic/Psychiatric: Reports: pre-existing deficit Endocrine: Reports: no symptoms Hematologic/Lymphatic: Reports: anemia Allergies: Coded Allergies: VANCOMYCIN (Verified Allergy, Severe, hive, 09/28/20) All Systems: reviewed and negative except above Subjective no events. poorly responsive. sats low 90%. mild congestion. +edema. opens eyes. does not follow commands. npo for gt placement. decreased h/h noted. no reports of bleeding Objective Last 24 Hour Vital Signs Date Time Temp Pulse Resp B/P (MAP) Pulse Ox O2 Delivery O2 Flow Rate FiO2 10/01/20 16:00 Mechanical Ventilator Mechanical Ventilator 10/01/20 16:00 45 10/01/20 16:00 98.2 75 33 114/61 (78) 98 10/01/20 15:12 74 33 50 10/01/20 12:39 78 22 98 10/01/20 12:38 78 20 99 10/01/20 12:00 Mechanical Ventilator Mechanical Ventilator 10/01/20 12:00 45 10/01/20 12:00 99.5 67 27 107/62 (77) 99 10/01/20 12:00 67 10/01/20 11:08 76 29 50 10/01/20 10:05 76 28 100 Mechanical Ventilator 50 10/01/20 08:00 73 10/01/20 08:00 Mechanical Ventilator Mechanical Ventilator 10/01/20 08:00 50 10/01/20 08:00 99.0 67 30 118/65 (82) 100 10/01/20 07:18 69 29 50 10/01/20 04:00 70 10/01/20 04:00 Mechanical Ventilator Mechanical Ventilator 10/01/20 04:00 97.9 74 30 100/63 (75) 95 10/01/20 04:00 50 10/01/20 03:27 64 27 50 10/01/20 00:00 50 10/01/20 00:00 Mechanical Ventilator Mechanical Ventilator 10/01/20 00:00 99.5 68 35 118/75 (89) 97 10/01/20 00:00 86 09/30/20 23:15 86 34 50 09/30/20 21:00 60 09/30/20 20:00 60 09/30/20 20:00 98.8 76 35 105/71 (82) 98 09/30/20 20:00 Mechanical Ventilator Mechanical Ventilator 09/30/20 20:00 82 09/30/20 19:30 92 35 60 Intake and Output 09/30/20 10/01/20 19:00 07:00 Intake Total 525 ml 863 ml Output Total 600 ml Balance 525 ml 263 ml IV Total 525 ml 863 ml Tube Feeding 0 ml 0 ml Output Urine Total 600 ml Stool Total 0 ml # Bowel Movements 2 Laboratory Tests 09/30/20 18:30: Arterial Blood pH 7.514H, Arterial Blood Partial Pressure CO2 34.4L, Arterial Blood Partial Pressure O2 47.7*L, Arterial Blood HCO3 27.1H, Arterial Blood Oxygen Saturation 86.9*L, Arterial Blood Base Excess 4.0H, Freddy Test Positive 10/01/20 04:20: White Blood Count 11.2H, Red Blood Count 2.35L, Hemoglobin 6.7*L, Hematocrit 20.1L, Mean Corpuscular Volume 85, Mean Corpuscular Hemoglobin 28.3, Mean Corpuscular Hemoglobin Concent 33.1, Red Cell Distribution Width 13.7, Platelet Count 149L, Mean Platelet Volume 7.0, Neutrophils (%) (Auto) , Lymphocytes (%) (Auto) , Monocytes (%) (Auto) , Eosinophils (%) (Auto) , Basophils (%) (Auto) , Differential Total Cells Counted 100, Neutrophils % (Manual) 88H, Lymphocytes % (Manual) 5L, Monocytes % (Manual) 7, Eosinophils % (Manual) 0, Basophils % (Manual) 0, Band Neutrophils 0, Platelet Estimate Adequate, Platelet Morphology Normal, Hypochromasia 1+, Sodium Level 140, Potassium Level 3.9, Chloride Level 108H, Carbon Dioxide Level 27, Anion Gap 5, Blood Urea Nitrogen 16, Creatinine 0.8, Estimat Glomerular Filtration Rate > 60, Glucose Level 72L, Calcium Level 7.1L, Magnesium Level 2.1, Pro-B-Type Natriuretic Peptide [Pending] 10/01/20 08:03: Arterial Blood pH 7.537H, Arterial Blood Partial Pressure CO2 29.1L, Arterial Blood Partial Pressure O2 131.0H, Arterial Blood HCO3 24.2, Arterial Blood Oxygen Saturation 97.7, Arterial Blood Base Excess 1.6, Freddy Test Positive 10/01/20 09:15: White Blood Count 10.9H, Red Blood Count 2.50L, Hemoglobin 7.0L, Hematocrit 20.6L, Mean Corpuscular Volume 83, Mean Corpuscular Hemoglobin 28.2, Mean Corpuscular Hemoglobin Concent 34.2, Red Cell Distribution Width 15.2H, Platelet Count 161, Mean Platelet Volume 7.2, Neutrophils (%) (Auto) , Lymphocytes (%) (Auto) , Monocytes (%) (Auto) , Eosinophils (%) (Auto) , Basophils (%) (Auto) , Differential Total Cells Counted 100, Neutrophils % (Manual) 79H, Lymphocytes % (Manual) 8L, Monocytes % (Manual) 10, Eosinophils % (Manual) 3, Basophils % (Manual) 0, Band Neutrophils 0, Platelet Estimate Adequate, Platelet Morphology Normal, Hypochromasia 1+, Anisocytosis 1+ Height (Feet): 6 Height (Inches): 1.00 Weight (Pounds): 148 Objective General Appearance: WD/WN, confused. EENT: normal ENT inspection. +trach, dressing clean Neck: normal alignment, supple Cardiovascular: normal rate, regular rhythm Respiratory/Chest: rhonchi - bilaterally. diminished BS Abdomen: normal bowel sounds, non tender, soft, no organomegaly Edema: no edema noted Leg (L), no edema noted Leg (R) Neurologic: engine turner II-XII grossly normal, responsive, disoriented Lymphatic: normal anterior cervical (L), normal anterior cervical (R), normal posterior cervical (L), normal posterior cervical (R) Assessment/Plan Problem List: (1) PNA (pneumonia) ICD Codes: J18.9 - Pneumonia, unspecified organism SNOMED: 936787104 (2) UTI (urinary tract infection) ICD Codes: N39.0 - Urinary tract infection, site not specified SNOMED: 24880710 (3) Fever ICD Codes: R50.9 - Fever, unspecified SNOMED: 490180982 Qualifiers: Qualified Codes: R50.9 - Fever, unspecified (4) Decubitus skin ulcer ICD Codes: L89.90 - Pressure ulcer of unspecified site, unspecified stage SNOMED: 016640945 (5) Malnutrition ICD Codes: E46 - Unspecified protein-calorie malnutrition SNOMED: 80516761 (6) Severe sepsis ICD Codes: A41.9 - Sepsis, unspecified organism; R65.20 - Severe sepsis without septic shock SNOMED: 87505990 (7) Hematuria ICD Codes: R31.9 - Hematuria, unspecified SNOMED: 75650088 Status: stable Assessment/Plan: cont iv abx per id resp rx and suctioning trach care titrate fio2 monitor abg skin care gt placement. pt needs emergent gt. unable to consent. at risk for complications from assisted ngt. monitor labs poor prognosis Jason Layne MD Oct 01, 2020 17:53
--- NOTE | 2020-10-01 19:05 | NUR ---
NURSE NOTES: Received report from Jacqueline RN, pt. in bed awake w/ eyes open- non-verbal, no signs or symptoms of acute cardiac or respiratory distress noted, bed alarm on, side rails up x's 3 and safety brakes engaged, call light within easy reach, pt. appears to be tolerating current vent settings AC 12, TV 450, Fio2 at 45% and peep 7- no distress noted, Rae intact and draining to gravity, RFA 18G IV intact and patent running D5 1/2NS w/10KCL at 75cc/hr, aspiration precautions observed- HOB elevated, skin precautions observed, safety measures continued, will continue with plan of care.
[2020-10-01 19:16] LABS: HEMATOCRIT 24.3 % (42.0-52.0); HEMOGLOBIN 8.4 G/DL (14.2-18.0); MEAN CORPUSCULAR VOLUME 84 FL (80-99); PLATELET COUNT 189 K/UL (150-450); RED CELL DISTRIBUTION WIDTH 14.6 % (11.6-14.8); WHITE BLOOD COUNT 18.3 K/UL (4.8-10.8)
[2020-10-01 20:00] VITALS: BP 114/63
--- NOTE | 2020-10-01 20:01 | NUR ---
NURSE HAND-OFF REPORT: Important Events on Shift:[] transfused 1unit PRBC's was given and (Gtube placement, only give meds today, no feeding order yet) Patient Status: [] full code Diet: [] NPO Pending Orders: [] Pending Results/Labs:[] Pending MD notification:[] Latest Vital Signs: Temperature 98.2 , Pulse 89 , B/P 114 /61 , Respiratory Rate 31 , O2 SAT 98 , Mechanical Ventilator, O2 Flow Rate 15.0 . Vital Sign Comment: [] EKG Rhythm: Sinus Rhythm Rhythm change?: N Notified?: Y -Dr Jacklyn BENITEZ Response: No New Orders Received Latest Schultz Fall Score: 70 Fall Risk: High Risk Safety Measures: Call light Within Reach, Bed Alarm Zone 1, Side Rails Side Rails x3, Bed position Low and Locked. Fall Precautions: y Yellow Socks y Door Sign Patient Fall Education y Report given to [].Rniku/ARTEMIO
[2020-10-01] MEDS: Valproic Acid 250mg/5ml Liquid NG SCH (20:09)
[2020-10-01] MEDS: Acetaminophen 650mg/20.3ml NG PRN (20:09)
[2020-10-01] MEDS: Tamsulosin 0.4mg cap ORAL SCH (20:09)
--- NOTE | 2020-10-01 20:31 | Operative Note - Dictated ---
DATE OF OPERATION: 10/01/2020 GASTROENTEROLOGY PROCEDURE REPORT PROCEDURE: Upper gastrointestinal endoscopy with gastrostomy tube placement. SURGEON: Deborah Cabrera MD ANESTHESIA: Please see the separate anesthesiologist notes for details. PRE-ENDOSCOPIC DIAGNOSIS: Dysphagia. POST-ENDOSCOPIC DIAGNOSES: 1. Status post gastrostomy tube placement. 2. Linear lower laryngeal erosion consistent with nasogastric tube erosion without evidence of bleeding. DESCRIPTION OF PROCEDURE: The patient was sedated in the supine position and a diagnostic upper endoscope was introduced through oropharynx and advanced to the duodenum. The endoscope was then gradually withdrawn and the mucosa examined carefully. Examination of the upper gastrointestinal mucosa revealed only 2 linear erosions in the lower pharynx suggestive of nasogastric tube irritation. The location for placement of the gastrostomy tube was identified by palpation and transillumination techniques. The outside skin was sterilely prepared, anesthetized, incised, and the trocar needle was placed using the standard pull technique. Location and placement were verified endoscopically. The endoscope was removed. The patient was sent to recovery in good condition. RECOMMENDATIONS: 1. Observe overnight. 2. Restart tube feedings tomorrow. Deborah Cabrera M.D. DR: ESTER JOB#: [id number] CC:
--- NOTE | 2020-10-01 23:00 | NUR ---
NURSE NOTES: bed bath given and linens changed- oral care provided, pt. appears to be sating well on current vent settings at 100%- no distress noted- aspiration precautions continued, will continue to monitor pt. and with plan of care.
[2020-10-02] VITALS: BP 103/68
--- NOTE | 2020-10-02 01:29 | Cardiology Progress Note ---
Subjective DATE OF SERVICE: Oct 01, 2020 Condition remains critical; prognosis guarded. Remains on vent via trach, requiring 50-6% oxygen delivery. S/P uncomplicated PEG placement today BP remains mostly controlled. Monitor: sinus/ sinus tachycardia. ABG: (09/30/20) 7.54/29/191 Objective Last 24 Hour Vital Signs Date Time Temp Pulse Resp B/P (MAP) Pulse Ox O2 Delivery O2 Flow Rate FiO2 10/02/20 00:00 Mechanical Ventilator Mechanical Ventilator 10/02/20 00:00 98.2 65 24 103/68 (80) 100 10/02/20 00:00 45 10/01/20 23:29 59 10/01/20 23:14 64 25 45 10/01/20 20:39 99.1 10/01/20 20:00 100.6 104 26 114/63 (80) 98 10/01/20 20:00 Mechanical Ventilator Mechanical Ventilator 10/01/20 20:00 45 10/01/20 19:07 89 31 45 10/01/20 19:01 88 10/01/20 16:00 Mechanical Ventilator Mechanical Ventilator 10/01/20 16:00 45 10/01/20 16:00 70 10/01/20 16:00 98.2 75 33 114/61 (78) 98 10/01/20 15:12 74 33 50 10/01/20 12:39 78 22 98 10/01/20 12:38 78 20 99 10/01/20 12:00 Mechanical Ventilator Mechanical Ventilator 10/01/20 12:00 45 10/01/20 12:00 99.5 67 27 107/62 (77) 99 10/01/20 12:00 67 10/01/20 11:08 76 29 50 10/01/20 10:05 76 28 100 Mechanical Ventilator 50 10/01/20 08:00 73 10/01/20 08:00 Mechanical Ventilator Mechanical Ventilator 10/01/20 08:00 50 10/01/20 08:00 99.0 67 30 118/65 (82) 100 10/01/20 07:18 69 29 50 10/01/20 04:00 70 10/01/20 04:00 Mechanical Ventilator Mechanical Ventilator 10/01/20 04:00 97.9 74 30 100/63 (75) 95 10/01/20 04:00 50 10/01/20 03:27 64 27 50 ROS: no change from my evaluation of 09/10/20. HEENT: Mechanically Ventilated, Thin Trach secretions RHYTHM: NSR, ST LUNGS: bilat. rhonchi and rales, trach site clean CARDIAC: normal rate, regular rhythm, normal S1 and S2 ABDOMEN: normal bowel sounds, soft, other - sacral decub EXTREMITIES: No edema Laboratory Tests Test 10/01/20 04:20 10/01/20 08:03 10/01/20 09:15 10/01/20 19:04 White Blood Count 11.2 K/UL (4.8-10.8) H 10.9 K/UL (4.8-10.8) H 18.3 K/UL (4.8-10.8) #H Red Blood Count 2.35 M/UL (4.70-6.10) L 2.50 M/UL (4.70-6.10) L 2.90 M/UL (4.70-6.10) L Hemoglobin 6.7 G/DL (14.2-18.0) *L 7.0 G/DL (14.2-18.0) L 8.4 G/DL (14.2-18.0) L Hematocrit 20.1 % (42.0-52.0) L 20.6 % (42.0-52.0) L 24.3 % (42.0-52.0) L Mean Corpuscular Volume 85 FL (80-99) 83 FL (80-99) 84 FL (80-99) Mean Corpuscular Hemoglobin 28.3 PG (27.0-31.0) 28.2 PG (27.0-31.0) 29.1 PG (27.0-31.0) Mean Corpuscular Hemoglobin Concent 33.1 G/DL (32.0-36.0) 34.2 G/DL (32.0-36.0) 34.6 G/DL (32.0-36.0) Red Cell Distribution Width 13.7 % (11.6-14.8) 15.2 % (11.6-14.8) H 14.6 % (11.6-14.8) Platelet Count 149 K/UL (150-450) L 161 K/UL (150-450) 189 K/UL (150-450) Mean Platelet Volume 7.0 FL (6.5-10.1) 7.2 FL (6.5-10.1) 6.6 FL (6.5-10.1) Neutrophils (%) (Auto) % (45.0-75.0) % (45.0-75.0) % (45.0-75.0) Lymphocytes (%) (Auto) % (20.0-45.0) % (20.0-45.0) % (20.0-45.0) Monocytes (%) (Auto) % (1.0-10.0) % (1.0-10.0) % (1.0-10.0) Eosinophils (%) (Auto) % (0.0-3.0) % (0.0-3.0) % (0.0-3.0) Basophils (%) (Auto) % (0.0-2.0) % (0.0-2.0) % (0.0-2.0) Differential Total Cells Counted 100 100 100 Neutrophils % (Manual) 88 % (45-75) H 79 % (45-75) H 89 % (45-75) H Lymphocytes % (Manual) 5 % (20-45) L 8 % (20-45) L 6 % (20-45) L Monocytes % (Manual) 7 % (1-10) 10 % (1-10) 2 % (1-10) Eosinophils % (Manual) 0 % (0-3) 3 % (0-3) 0 % (0-3) Basophils % (Manual) 0 % (0-2) 0 % (0-2) 0 % (0-2) Band Neutrophils 0 % (0-8) 0 % (0-8) 3 % (0-8) Platelet Estimate Adequate Adequate Adequate Platelet Morphology Normal Normal Normal Hypochromasia 1+ 1+ 1+ Sodium Level 140 MMOL/L (136-145) Potassium Level 3.9 MMOL/L (3.5-5.1) Chloride Level 108 MMOL/L (98-107) H Carbon Dioxide Level 27 MMOL/L (21-32) Anion Gap 5 mmol/L (5-15) Blood Urea Nitrogen 16 mg/dL (7-18) Creatinine 0.8 MG/DL (0.55-1.30) Estimat Glomerular Filtration Rate > 60 mL/min (>60) Glucose Level 72 MG/DL (74-106) L Calcium Level 7.1 MG/DL (8.5-10.1) L Magnesium Level 2.1 MG/DL (1.8-2.4) Pro-B-Type Natriuretic Peptide Pending Arterial Blood pH 7.537 (7.350-7.450) Arterial Blood Partial Pressure CO2 29.1 mmHg (35.0-45.0) L Arterial Blood Partial Pressure O2 131.0 mmHg (75.0-100.0) H Arterial Blood HCO3 24.2 mmol/L (22.0-26.0) Arterial Blood Oxygen Saturation 97.7 % (95-100) Arterial Blood Base Excess 1.6 (-2-2) Freddy Test Positive Anisocytosis 1+ 1+ Assessment/Plan Assessment/Plan Respiratory failure with hypoxia - s/p tracheostomy Sepsis Leukocytosis Aspiration PNA Recurring shock Diarrhea Dehydration/hypernatremia corrected Acute myocardial ischemia Acute renal failure HC assoc PNA UTI Transaminitis, acute CVA/dementia Paroxysmal sinus bradycardia and tachycardia Acute diastolic CHF Severe protein/calorie malnutrition with dysphagia; now s/p PEG Remains CRITICAL & GUARDED Vent support with trach care. Maintenance IVF hydration while NPO Antimicrobials per ID. Replace lytes as needed. DVT prophyl Cardiac monitoring Diuresis based on clinical parameters. Madi Rios MD Oct 02, 2020 01:29
[2020-10-02 04:00] VITALS: BP 108/69
[2020-10-02 04:58] LABS: HEMATOCRIT 23.3 % (42.0-52.0); HEMOGLOBIN 7.9 G/DL (14.2-18.0); MEAN CORPUSCULAR VOLUME 86 FL (80-99); PLATELET COUNT 164 K/UL (150-450); RED BLOOD COUNT 2.72 M/UL (4.70-6.10); RED CELL DISTRIBUTION WIDTH 14.2 % (11.6-14.8)
--- NOTE | 2020-10-02 06:54 | NUR ---
NURSE HAND-OFF REPORT: Important Events on Shift:fever- resolved Patient Status: fair Diet: NPO Pending Orders: Pending Results/Labs: Pending MD notification: Latest Vital Signs: Temperature 98.1 , Pulse 68 , B/P 108 /69 , Respiratory Rate 23 , O2 SAT 100 , Mechanical Ventilator, O2 Flow Rate 15.0 . Vital Sign Comment: EKG Rhythm: Sinus Rhythm Rhythm change?: Y MD Notified?: MD Response: Latest Schultz Fall Score: 70 Fall Risk: High Risk Safety Measures: Call light Within Reach, Bed Alarm Zone 1, Side Rails Side Rails x3, Bed position Low and Locked. Fall Precautions: Yellow Socks Door Sign Patient Fall Education Report given to ARTEMIO Jenkins, aware to f/u on any abnormal am labs- HGB trending down.
--- NOTE | 2020-10-02 07:40 | NUR ---
NURSE NOTES:Handoff received from ARTEMIO Wells. patient received awake and alert but non-verbal due to trach to vent with following settings: AC12, TV450, FI02 45% and PEEP 7 tolerating well with 02 sat of 100%, no acute signs of distress noted, playground monitor is on showing HR of 72 SR. Andrade is patent and draining to gravity. patient is placed on seizure precautions with side rails padded, aspiration and fall precautions with bed in the low and locked position and call light on the bed, next to the patient. patient has R FA 18G IV clean dry and intact running D51/2NS@75ML/HR, patient has mittens on as PM shift stated he pulls at andrade. Sacral skin issues noted, dressing is clean dry and intact. Will follow plan of care.
[2020-10-02 08:00] VITALS: BP 110/64
--- NOTE | 2020-10-02 09:04 | Urology Progress Note ---
Assessment/Plan Status: stable Assessment/Plan: 1. Gross hematuria. 2. Pyuria and possible UTI. 3. Proteinuria. 4. BPH. 5. Urinary retention. 6. Probable neurogenic bladder. 7. Possible sepsis. monitor clinically maintain andrade, secured to pt's leg hand irrigated and do PRN s/p abx flomax and proscar cysto electively voiding trial at some point? Subjective Allergies: Coded Allergies: VANCOMYCIN (Verified Allergy, Severe, hive, 09/28/20) Subjective remains on vent, trach 09/27 Objective Last 24 Hour Vital Signs Date Time Temp Pulse Resp B/P (MAP) Pulse Ox O2 Delivery O2 Flow Rate FiO2 10/02/20 07:20 81 35 45 10/02/20 04:00 98.1 68 23 108/69 (82) 100 10/02/20 04:00 Mechanical Ventilator Mechanical Ventilator 10/02/20 04:00 45 10/02/20 03:37 71 10/02/20 02:33 63 25 45 10/02/20 00:00 Mechanical Ventilator Mechanical Ventilator 10/02/20 00:00 98.2 65 24 103/68 (80) 100 10/02/20 00:00 45 10/01/20 23:29 59 10/01/20 23:14 64 25 45 10/01/20 20:39 99.1 10/01/20 20:00 100.6 104 26 114/63 (80) 98 10/01/20 20:00 Mechanical Ventilator Mechanical Ventilator 10/01/20 20:00 45 10/01/20 19:07 89 31 45 10/01/20 19:01 88 10/01/20 16:00 Mechanical Ventilator Mechanical Ventilator 10/01/20 16:00 45 10/01/20 16:00 70 10/01/20 16:00 98.2 75 33 114/61 (78) 98 10/01/20 15:12 74 33 50 10/01/20 12:39 78 22 98 10/01/20 12:38 78 20 99 10/01/20 12:00 Mechanical Ventilator Mechanical Ventilator 10/01/20 12:00 45 10/01/20 12:00 99.5 67 27 107/62 (77) 99 10/01/20 12:00 67 10/01/20 11:08 76 29 50 10/01/20 10:05 76 28 100 Mechanical Ventilator 50 Intake and Output 12/14/20 12/15/20 19:00 07:00 Intake Total 525 ml 922 ml Output Total 700 ml 250 ml Balance -175 ml 672 ml Free Water 30 ml IV Total 525 ml 892 ml Output Urine Total 700 ml 250 ml Microbiology Date/Time Source Procedure Growth Status 09/24/20 10:50 Nasopharynx SARS-CoV-2 RdRp Gene Assay - Final Complete 09/18/20 18:30 Stool Clostridium difficile Toxin Assay - Final Complete 09/17/20 12:58 Blood Blood Culture - Final NO GROWTH AFTER 5 DAYS Complete 09/10/20 20:05 Urine,Clean Catch Urine Culture - Final NO GROWTH AFTER 48 HOURS Complete 09/10/20 17:15 Rectum VRE Culture - Final Enterococcus Faecalis - Vre Complete Current Medications Medications (Trade) Dose Ordered Sig/Aleksander Route PRN Reason Start Time Stop Time Status Last Admin Dose Admin Acetaminophen (Tylenol) 650 mg Q4H PRN NG Temp >100.5 09/10/20 23:15 10/10/20 23:14 10/01/20 20:09 Al Hydroxide/Mg Hydroxide (Mylanta) 30 ml Q4H PRN NG Constipation 09/11/20 00:15 10/10/20 23:14 Ascorbic Acid (Vitamin C) 250 mg DAILY NG 09/26/20 09:00 10/18/20 08:59 10/01/20 10:42 Dextrose/ Electrolytes 1,000 ml @ 75 mls/hr [id number] IV 09/29/20 01:30 10/29/20 01:29 10/01/20 20:09 Diphenhydramine HCl (Benadryl) 25 mg Q6H PRN IVP Itching 09/27/20 12:15 10/27/20 12:14 10/01/20 10:45 Diphenoxylate HCl/ Atropine (Lomotil) 2.5 mg Q4H PRN ORAL Diarrhea 09/20/20 08:15 10/20/20 08:14 Finasteride (Proscar) 5 mg DAILY ORAL 09/13/20 09:00 12/12/20 08:59 10/01/20 10:43 Multivitamins (Multivitamins W/ Minerals 15ml Liquid) 15 ml DAILY NG 09/26/20 09:00 10/26/20 08:59 10/01/20 10:41 Ondansetron HCl (Zofran) 4 mg Q6H PRN IVP Nausea & Vomiting 09/10/20 23:15 10/10/20 23:14 Pantoprazole (Protonix) 40 mg DAILY IVP 09/11/20 09:00 10/11/20 08:59 10/01/20 10:43 Tamsulosin HCl (Flomax) 0.4 mg BEDTIME ORAL 09/12/20 21:00 10/12/20 20:59 10/01/20 20:09 Valproic Acid (Depakene) 1,000 mg BEDTIME NG 09/16/20 21:00 10/31/20 20:59 10/01/20 20:09 Zinc Sulfate (Zinc Sulfate) 220 mg DAILY NG 09/26/20 09:00 10/06/20 08:59 10/01/20 10:43 Laboratory Tests 10/01/20 09:15: White Blood Count 10.9H, Red Blood Count 2.50L, Hemoglobin 7.0L, Hematocrit 20.6L, Mean Corpuscular Volume 83, Mean Corpuscular Hemoglobin 28.2, Mean Corpuscular Hemoglobin Concent 34.2, Red Cell Distribution Width 15.2H, Platelet Count 161, Mean Platelet Volume 7.2, Neutrophils (%) (Auto) , Lymphocytes (%) (Auto) , Monocytes (%) (Auto) , Eosinophils (%) (Auto) , Basophils (%) (Auto) , Differential Total Cells Counted 100, Neutrophils % (Manual) 79H, Lymphocytes % (Manual) 8L, Monocytes % (Manual) 10, Eosinophils % (Manual) 3, Basophils % (Manual) 0, Band Neutrophils 0, Platelet Estimate Adequate, Platelet Morphology Normal, Hypochromasia 1+, Anisocytosis 1+ 10/01/20 19:04: White Blood Count 18.3#H, Red Blood Count 2.90L, Hemoglobin 8.4L, Hematocrit 24.3L, Mean Corpuscular Volume 84, Mean Corpuscular Hemoglobin 29.1, Mean Corpuscular Hemoglobin Concent 34.6, Red Cell Distribution Width 14.6, Platelet Count 189, Mean Platelet Volume 6.6, Neutrophils (%) (Auto) , Lymphocytes (%) (Auto) , Monocytes (%) (Auto) , Eosinophils (%) (Auto) , Basophils (%) (Auto) , Differential Total Cells Counted 100, Neutrophils % (Manual) 89H, Lymphocytes % (Manual) 6L, Monocytes % (Manual) 2, Eosinophils % (Manual) 0, Basophils % (Manual) 0, Band Neutrophils 3, Platelet Estimate Adequate, Platelet Morphology Normal, Hypochromasia 1+, Anisocytosis 1+ 10/02/20 03:57: White Blood Count 14.0H, Red Blood Count 2.72L, Hemoglobin 7.9L, Hematocrit 23.3L, Mean Corpuscular Volume 86, Mean Corpuscular Hemoglobin 28.9, Mean Corpuscular Hemoglobin Concent 33.7, Red Cell Distribution Width 14.2, Platelet Count 164, Mean Platelet Volume 7.4, Neutrophils (%) (Auto) , Lymphocytes (%) (Auto) , Monocytes (%) (Auto) , Eosinophils (%) (Auto) , Basophils (%) (Auto) Height (Feet): 6 Height (Inches): 1.00 Weight (Pounds): 148 Objective exam stable urine clearing Levi Brunson MD Oct 02, 2020 09:04
[2020-10-02] MEDS: Zinc Sulfate 220mg NG SCH (09:18)
[2020-10-02] MEDS: Multivitamins W/Minerals 15 ML UDC NG SCH (09:18)
[2020-10-02] MEDS: Ascorbic Acid 500mg tab NG SCH (09:18)
[2020-10-02] MEDS: Pantoprazole Inj IVP SCH (09:19)
[2020-10-02] MEDS: D5 1/2NS w/KCL 10meq 1,000 ML IV SCH (09:30)
--- NOTE | 2020-10-02 09:39 | Infectious Diseases Prog Note ---
Assessment/Plan Assessment/Plan A 1. Pneumonia with MRSA treated COVID19 test is negative. 2. Dementia. 3. Leukocytosis 4. Urinary tract infection treated 5. 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 BPH P 1. Observe off antibiotic Subjective ROS Limited/Unobtainable: Yes Neurologic: Reports: confusion, other - restraint by mittens Allergies: Coded Allergies: VANCOMYCIN (Verified Allergy, Severe, hive, 09/28/20) Objective Last 24 Hour Vital Signs Date Time Temp Pulse Resp B/P (MAP) Pulse Ox O2 Delivery O2 Flow Rate FiO2 10/02/20 08:00 45 10/02/20 08:00 98.2 77 33 110/64 (79) 100 10/02/20 08:00 Mechanical Ventilator Mechanical Ventilator 10/02/20 07:56 72 10/02/20 07:20 81 35 45 10/02/20 04:00 98.1 68 23 108/69 (82) 100 10/02/20 04:00 Mechanical Ventilator Mechanical Ventilator 10/02/20 04:00 45 10/02/20 03:37 71 10/02/20 02:33 63 25 45 10/02/20 00:00 Mechanical Ventilator Mechanical Ventilator 10/02/20 00:00 98.2 65 24 103/68 (80) 100 10/02/20 00:00 45 10/01/20 23:29 59 10/01/20 23:14 64 25 45 10/01/20 20:39 99.1 10/01/20 20:00 100.6 104 26 114/63 (80) 98 10/01/20 20:00 Mechanical Ventilator Mechanical Ventilator 10/01/20 20:00 45 10/01/20 19:07 89 31 45 10/01/20 19:01 88 10/01/20 16:00 Mechanical Ventilator Mechanical Ventilator 10/01/20 16:00 45 10/01/20 16:00 70 10/01/20 16:00 98.2 75 33 114/61 (78) 98 10/01/20 15:12 74 33 50 10/01/20 12:39 78 22 98 10/01/20 12:38 78 20 99 10/01/20 12:00 Mechanical Ventilator Mechanical Ventilator 10/01/20 12:00 45 10/01/20 12:00 99.5 67 27 107/62 (77) 99 12/14/20 12:00 67 10/01/20 11:08 76 29 50 10/01/20 10:05 76 28 100 Mechanical Ventilator 50 Height (Feet): 6 Height (Inches): 1.00 Weight (Pounds): 148 HEENT: status post trach Respiratory/Chest: lungs clear, other - on ventilator Cardiovascular: normal rate Abdomen: soft, non tender Extremities: no edema Neurologic/Psychiatric: aphasia, other - opens eyes Laboratory Tests Test 10/01/20 19:04 10/02/20 03:57 White Blood Count 18.3 K/UL (4.8-10.8) #H 14.0 K/UL (4.8-10.8) H Red Blood Count 2.90 M/UL (4.70-6.10) L 2.72 M/UL (4.70-6.10) L Hemoglobin 8.4 G/DL (14.2-18.0) L 7.9 G/DL (14.2-18.0) L Hematocrit 24.3 % (42.0-52.0) L 23.3 % (42.0-52.0) L Mean Corpuscular Volume 84 FL (80-99) 86 FL (80-99) Mean Corpuscular Hemoglobin 29.1 PG (27.0-31.0) 28.9 PG (27.0-31.0) Mean Corpuscular Hemoglobin Concent 34.6 G/DL (32.0-36.0) 33.7 G/DL (32.0-36.0) Red Cell Distribution Width 14.6 % (11.6-14.8) 14.2 % (11.6-14.8) Platelet Count 189 K/UL (150-450) 164 K/UL (150-450) Mean Platelet Volume 6.6 FL (6.5-10.1) 7.4 FL (6.5-10.1) Neutrophils (%) (Auto) % (45.0-75.0) % (45.0-75.0) Lymphocytes (%) (Auto) % (20.0-45.0) % (20.0-45.0) Monocytes (%) (Auto) % (1.0-10.0) % (1.0-10.0) Eosinophils (%) (Auto) % (0.0-3.0) % (0.0-3.0) Basophils (%) (Auto) % (0.0-2.0) % (0.0-2.0) Differential Total Cells Counted 100 Neutrophils % (Manual) 89 % (45-75) H Lymphocytes % (Manual) 6 % (20-45) L Monocytes % (Manual) 2 % (1-10) Eosinophils % (Manual) 0 % (0-3) Basophils % (Manual) 0 % (0-2) Band Neutrophils 3 % (0-8) Platelet Estimate Adequate Platelet Morphology Normal Hypochromasia 1+ Anisocytosis 1+ Current Medications Medications (Trade) Dose Ordered Sig/Aleksander Route PRN Reason Start Time Stop Time Status Last Admin Dose Admin Acetaminophen (Tylenol) 650 mg Q4H PRN NG Temp >100.5 09/10/20 23:15 10/10/20 23:14 10/01/20 20:09 Al Hydroxide/Mg Hydroxide (Mylanta) 30 ml Q4H PRN NG Constipation 09/11/20 00:15 10/10/20 23:14 Ascorbic Acid (Vitamin C) 250 mg DAILY NG 09/26/20 09:00 10/18/20 08:59 10/02/20 09:18 Dextrose/ Electrolytes 1,000 ml @ 75 mls/hr [id number] IV 09/29/20 01:30 10/29/20 01:29 10/01/20 20:09 Diphenhydramine HCl (Benadryl) 25 mg Q6H PRN IVP Itching 09/27/20 12:15 10/27/20 12:14 10/01/20 10:45 Diphenoxylate HCl/ Atropine (Lomotil) 2.5 mg Q4H PRN ORAL Diarrhea 09/20/20 08:15 10/20/20 08:14 Finasteride (Proscar) 5 mg DAILY ORAL 09/13/20 09:00 12/12/20 08:59 10/02/20 09:18 Multivitamins (Multivitamins W/ Minerals 15ml Liquid) 15 ml DAILY NG 09/26/20 09:00 10/26/20 08:59 10/02/20 09:18 Ondansetron HCl (Zofran) 4 mg Q6H PRN IVP Nausea & Vomiting 09/10/20 23:15 10/10/20 23:14 Pantoprazole (Protonix) 40 mg DAILY IVP 09/11/20 09:00 10/11/20 08:59 10/02/20 09:19 Tamsulosin HCl (Flomax) 0.4 mg BEDTIME ORAL 09/12/20 21:00 10/12/20 20:59 10/01/20 20:09 Valproic Acid (Depakene) 1,000 mg BEDTIME NG 09/16/20 21:00 10/31/20 20:59 10/01/20 20:09 Zinc Sulfate (Zinc Sulfate) 220 mg DAILY NG 09/26/20 09:00 10/06/20 08:59 10/02/20 09:18 Bradley Gil MD Oct 02, 2020 09:39
--- NOTE | 2020-10-02 11:50 | General Progress Note ---
Subjective ROS Limited/Unobtainable: Yes Allergies: Coded Allergies: VANCOMYCIN (Verified Allergy, Severe, hive, 09/28/20) Subjective on vent contracted trach placed oxygenation noted now in ASTER anemic Objective Last 24 Hour Vital Signs Date Time Temp Pulse Resp B/P (MAP) Pulse Ox O2 Delivery O2 Flow Rate FiO2 10/02/20 11:15 83 30 45 10/02/20 08:00 45 10/02/20 08:00 98.2 77 33 110/64 (79) 100 10/02/20 08:00 Mechanical Ventilator Mechanical Ventilator 10/02/20 07:56 72 10/02/20 07:20 81 35 45 10/02/20 04:00 98.1 68 23 108/69 (82) 100 10/02/20 04:00 Mechanical Ventilator Mechanical Ventilator 10/02/20 04:00 45 10/02/20 03:37 71 10/02/20 02:33 63 25 45 10/02/20 00:00 Mechanical Ventilator Mechanical Ventilator 10/02/20 00:00 98.2 65 24 103/68 (80) 100 10/02/20 00:00 45 10/01/20 23:29 59 10/01/20 23:14 64 25 45 10/01/20 20:39 99.1 10/01/20 20:00 100.6 104 26 114/63 (80) 98 10/01/20 20:00 Mechanical Ventilator Mechanical Ventilator 10/01/20 20:00 45 10/01/20 19:07 89 31 45 10/01/20 19:01 88 10/01/20 16:00 Mechanical Ventilator Mechanical Ventilator 10/01/20 16:00 45 10/01/20 16:00 70 10/01/20 16:00 98.2 75 33 114/61 (78) 98 10/01/20 15:12 74 33 50 10/01/20 12:39 78 22 98 10/01/20 12:38 78 20 99 10/01/20 12:00 Mechanical Ventilator Mechanical Ventilator 10/01/20 12:00 45 10/01/20 12:00 99.5 67 27 107/62 (77) 99 10/01/20 12:00 67 Intake and Output 10/01/20 10/02/20 19:00 07:00 Intake Total 525 ml 922 ml Output Total 700 ml 250 ml Balance -175 ml 672 ml Free Water 30 ml IV Total 525 ml 892 ml Output Urine Total 700 ml 250 ml Laboratory Tests 10/01/20 19:04: White Blood Count 18.3#H, Red Blood Count 2.90L, Hemoglobin 8.4L, Hematocrit 24.3L, Mean Corpuscular Volume 84, Mean Corpuscular Hemoglobin 29.1, Mean Corpuscular Hemoglobin Concent 34.6, Red Cell Distribution Width 14.6, Platelet Count 189, Mean Platelet Volume 6.6, Neutrophils (%) (Auto) , Lymphocytes (%) (Auto) , Monocytes (%) (Auto) , Eosinophils (%) (Auto) , Basophils (%) (Auto) , Differential Total Cells Counted 100, Neutrophils % (Manual) 89H, Lymphocytes % (Manual) 6L, Monocytes % (Manual) 2, Eosinophils % (Manual) 0, Basophils % (Manual) 0, Band Neutrophils 3, Platelet Estimate Adequate, Platelet Morphology Normal, Hypochromasia 1+, Anisocytosis 1+ 10/02/20 03:57: White Blood Count 14.0H, Red Blood Count 2.72L, Hemoglobin 7.9L, Hematocrit 23.3L, Mean Corpuscular Volume 86, Mean Corpuscular Hemoglobin 28.9, Mean Corpuscular Hemoglobin Concent 33.7, Red Cell Distribution Width 14.2, Platelet Count 164, Mean Platelet Volume 7.4, Neutrophils (%) (Auto) , Lymphocytes (%) (Auto) , Monocytes (%) (Auto) , Eosinophils (%) (Auto) , Basophils (%) (Auto) Height (Feet): 6 Height (Inches): 1.00 Weight (Pounds): 148 Objective WDWN chronically ill trach in place feeding tube in place reduced breath sounds bilaterally with scattered rhonchi [id number] without MRG NABS nontender no CCE nonfocal poor LOC Assessment/Plan Status: stable Assessment/Plan: IMPRESSION: 1. Acute renal failure. 2. Hypernatremia. 3. Leukocytosis. 4. Possible sepsis. 5. Hypotension. 6. Dementia. 7. Acute on chronic encephalopathy. 8. bcx staph Epi 9. MRSA colonized 10. acute hypoxemic respiratory failure 11. atelectasis/collapse 12. leukocytosis 13. trach PLAN follow up HH taper fio2 as able taper PEEP as able ID noted; monitor follow up on antibiotics monitor renal parameters monitor oxygen needs vent support full for now off load monitor lytes position change monitor imaging d/w consultants and nursing remains critical trach care dc plan to subacute impression, plan, and exam edited and reviewed in detail care discussed with Patel Tesfaye MD Oct 02, 2020 11:50
[2020-10-02 12:00] VITALS: BP 120/71
--- NOTE | 2020-10-02 12:03 | NUR ---
NURSE NOTES:IV D51/2NS stopped per MD order to discontinue fluids.
--- NOTE | 2020-10-02 13:36 | Surgery Progress Note ---
Surgery Progress Note Subjective Procedure Performed tracheostomy Additional Comments wbc trending down h/h stable no n/v Objective Last 24 Hour Vital Signs Date Time Temp Pulse Resp B/P (MAP) Pulse Ox O2 Delivery O2 Flow Rate FiO2 10/02/20 12:00 63 10/02/20 12:00 45 10/02/20 12:00 Mechanical Ventilator Mechanical Ventilator 10/02/20 12:00 98.2 67 24 120/71 (87) 97 10/02/20 11:15 83 30 45 10/02/20 08:00 45 10/02/20 08:00 98.2 77 33 110/64 (79) 100 10/02/20 08:00 Mechanical Ventilator Mechanical Ventilator 10/02/20 07:56 72 10/02/20 07:20 81 35 45 10/02/20 04:00 98.1 68 23 108/69 (82) 100 10/02/20 04:00 Mechanical Ventilator Mechanical Ventilator 10/02/20 04:00 45 10/02/20 03:37 71 10/02/20 02:33 63 25 45 10/02/20 00:00 Mechanical Ventilator Mechanical Ventilator 10/02/20 00:00 98.2 65 24 103/68 (80) 100 10/02/20 00:00 45 10/01/20 23:29 59 10/01/20 23:14 64 25 45 10/01/20 20:39 99.1 10/01/20 20:00 100.6 104 26 114/63 (80) 98 10/01/20 20:00 Mechanical Ventilator Mechanical Ventilator 10/01/20 20:00 45 10/01/20 19:07 89 31 45 10/01/20 19:01 88 10/01/20 16:00 Mechanical Ventilator Mechanical Ventilator 10/01/20 16:00 45 10/01/20 16:00 70 10/01/20 16:00 98.2 75 33 114/61 (78) 98 10/01/20 15:12 74 33 50 I&O Intake and Output 10/01/20 10/02/20 19:00 07:00 Intake Total 525 ml 922 ml Output Total 700 ml 250 ml Balance -175 ml 672 ml Free Water 30 ml IV Total 525 ml 892 ml Output Urine Total 700 ml 250 ml Dressing: saturated Cardiovascular: RSR Respiratory: decreased breath sounds Abdomen: non-tender, present bowel sounds, non-distended Extremities: no tenderness, no cyanosis Laboratory Tests Test 10/01/20 19:04 10/02/20 03:57 White Blood Count 18.3 K/UL (4.8-10.8) #H 14.0 K/UL (4.8-10.8) H Red Blood Count 2.90 M/UL (4.70-6.10) L 2.72 M/UL (4.70-6.10) L Hemoglobin 8.4 G/DL (14.2-18.0) L 7.9 G/DL (14.2-18.0) L Hematocrit 24.3 % (42.0-52.0) L 23.3 % (42.0-52.0) L Mean Corpuscular Volume 84 FL (80-99) 86 FL (80-99) Mean Corpuscular Hemoglobin 29.1 PG (27.0-31.0) 28.9 PG (27.0-31.0) Mean Corpuscular Hemoglobin Concent 34.6 G/DL (32.0-36.0) 33.7 G/DL (32.0-36.0) Red Cell Distribution Width 14.6 % (11.6-14.8) 14.2 % (11.6-14.8) Platelet Count 189 K/UL (150-450) 164 K/UL (150-450) Mean Platelet Volume 6.6 FL (6.5-10.1) 7.4 FL (6.5-10.1) Neutrophils (%) (Auto) % (45.0-75.0) % (45.0-75.0) Lymphocytes (%) (Auto) % (20.0-45.0) % (20.0-45.0) Monocytes (%) (Auto) % (1.0-10.0) % (1.0-10.0) Eosinophils (%) (Auto) % (0.0-3.0) % (0.0-3.0) Basophils (%) (Auto) % (0.0-2.0) % (0.0-2.0) Differential Total Cells Counted 100 Neutrophils % (Manual) 89 % (45-75) H Lymphocytes % (Manual) 6 % (20-45) L Monocytes % (Manual) 2 % (1-10) Eosinophils % (Manual) 0 % (0-3) Basophils % (Manual) 0 % (0-2) Band Neutrophils 3 % (0-8) Platelet Estimate Adequate Platelet Morphology Normal Hypochromasia 1+ Anisocytosis 1+ Plan Problems: (1) Fever Assessment & Plan: maybe developing pneumonia cont abx pulm input thank you (2) Decubitus skin ulcer Assessment & Plan: Patient identified on admission to have multiple scabs on the left arm. mild open scabs with eschar. no drainage. no significant cellul itis. bruising no bilateral extremities noted. no signs of abuse. likely from agitation Sacral coccygeal noted to have a DTI 4.3X2.5CM. which is dark purple . RECOMMEND-CLEAN WITH SALINE, PAT DRY AND APPLY CALAZINE. COVER WITH OPTIFOAM DRESSING. REPLACE EVERY 3 DAYS OR NEEDED LEFT ISCHIUM- STAGE I PRESSURE ULCER MEASURES 4.5X1.7CM. NON-BLANCHABLE ERYTHEMA. RECOMMEND- APPLY CALAZINE AND COVER WITH OPTIFOAM DRESSING. REPLACE EVERY 7 DAYS. 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 Roman is a 70 year old male BIBA to ED of [facility] [place] on 09/10/2020 around 14:00 due to fever. He was found to be hypotensive 91/55 (67), Temp: 100.0, leukocytosis 20.8k and subsequently transferred to ICU for septic shock. The blood culture is reportedly positive for gram positive cocci. NG tube was placed, KUB confirmed the placement to day. Pt is clinically stable with leukocytosis 20.1, improved BUN and creatine, stable hemodynamic without vasopressor. Findings: Mr. Roman is disoriented. He does ot follow commands at this time. Oral cavity is noted to be dried blood concretion likely from NG trauma. No active bleeding site is seen. Due to his level f alertness, already NG tube is in placed, PO trial was not done at this time. Transferred out ICU last night. He is non on tele. Issues: multiple wounds, s.p balaji/nasal/pharyngeal bleeding with blood culture Gram positive cocci leukocytosis trending down from 20k-20k-16k BUN/Creatine trending down from 93/1.9-79/1.3-54/1.1 Temp: 98.1~98.7, Pulse: 62~72, BP: 105/67~120/48, SPO2 98~100% on 2 liter S: Oral cavity is better condition comparison to yesterday. The mucosa is severely erythema without active bleeding. Limited level of alertness for direct therapy. NG in placed O: 1. Laryngeal palpation to trigger spontaneous cough and swallow: Pt triggered cough with laryngeal palpation. Approximately 5~10 seconds after coughing, he triggered swallow. based on this observation, he presents with copious secretion in pharynx and larynx. He continued to have poor secretion management at laryngeal level at this time. NO PO trial was given due to poor secretion at the level of air way with low level of alertness. A: 1. Probable aspiration of his own secretion with poor ability to cough and swallow 2. Dysphagia P: 1. NPO for now 2. Observe his secretion, and level of alertness for PO readiness. DAILY ESTIMATED NEEDS: Needs based on Wound, underweight/ 55kg 30-35 kcals/kg 4767-4083 total kcals 1.25-2 g protein/kg 69-110 g total protein 25-30 mL/kg 0789-7502 total fluid mLs NUTRITION DIAGNOSIS: Increased kcal/prot needs R/T wound healing and underweight status as evidenced by pt admitted w/ wounds including DTI 2 coccyx and stage 1 @ lt ischium, pt @ 73% IBW w/ low BMI per guidelines, s/p NGT insertion, on NGT feeds. CURRENT TF:Jevity 1.2 @ 50ml/hr x 24 hrs ENTERAL NUTRITION RECOMMENDATIONS: Jevity 1.2 @ 60ml/hr x 24 hrs to provide 1440ml, 1728kcal, 80g prot, 1160ml free water * As medically appropriate, increase goal rate to 60ml/hr x 24 hrs to meet 100% est kcal/prot needs * HOB over 30 degrees/ without IVF, H2O flush of 100ml q 8hrs ADDITIONAL RECOMMENDATIONS: * Calibrated daily bedscale wt Per SNF: HT=70" * Wound healing: TF rec @ goal will provide 100% RDI add Vit C 250mg QD, ZnSO4 220mg QD x 10days, Davidson BID via NGT * Monitor BGs, need for NISS w/ TF * Monitor lytes, replete as needed- high risk for refeeding syndrome -> check f/up phos and mag (4) Severe sepsis Assessment & Plan: will likely need trach and peg. patient needs protected airway and nutrition full code no family and unable to consent medically necessary. will plan soon (5) Open upper arm wound (6) Hematuria Assessment & Plan: as per urology Aubrey Gutierrez Oct 02, 2020 13:36
--- NOTE | 2020-10-02 13:37 | NUR ---
RD ASSESSMENT & RECOMMENDATIONS SEE CARE ACTIVITY FOR COMPLETE ASSESSMENT DAILY ESTIMATED NEEDS: Needs based on Wound, underweight, critical care/ 55kg 25-33 kcals/kg 5786-3592 total kcals 1.25-2 g protein/kg 69-110 g total protein 25-30 mL/kg 7630-9754 total fluid mLs NUTRITION DIAGNOSIS: * Increased kcal/prot needs R/T wound healing and underweight status as evidenced by pt admitted w/ wounds including DTI 2 coccyx and stage 1 @ lt ischium, pt @ 73% IBW w/ low BMI per guidelines. * Swallowing difficulty R/T respiratory status as evidenced by s/p code blue (09/22), orally intubated, s/p trach placement (09/27), s/p PEG placement (10/01), NPO. CURRENT TF:NPO ENTERAL NUTRITION RECOMMENDATIONS: Jevity 1.2 @ 60ml/hr x 24 hrs to provide 1440ml, 1728kcal, 80g prot, 1160ml free water * As medically appropriate, initiate Jevity 1.2 @ 20ml/hr x 6hrs * Advance 10ml q 4-6 hrs as tolerated to goal * HOB over 30 degrees/ water flush per MD ADDITIONAL RECOMMENDATIONS: * Calibrated daily bedscale wt Per SNF: HT=70" * Wound healing: TF rec @ goal will provide 100% RDI Continue Vit C and ZnSO4, add Davidson BID via TF * Monitor lytes, replete as needed * Monitor hydration status: Na and BUn now wnl * Monitor BGs for hypoglycemia: Rec added D5 while NPO
[2020-10-02 16:00] VITALS: BP 140/85
--- NOTE | 2020-10-02 16:13 | General Progress Note ---
Subjective ROS Limited/Unobtainable: Yes Constitutional: Reports: malaise, weakness HEENT: Reports: no symptoms Cardiovascular: Reports: edema Respiratory: Reports: shortness of breath, sputum Gastrointestinal/Abdominal: Reports: difficulty swallowing Genitourinary: Reports: no symptoms Neurologic/Psychiatric: Reports: anxiety, pre-existing deficit Endocrine: Reports: no symptoms Hematologic/Lymphatic: Reports: anemia Allergies: Coded Allergies: VANCOMYCIN (Verified Allergy, Severe, hive, 09/28/20) All Systems: reviewed and negative except above Subjective no events. o2 sats improving. more alert and anxious. mild congestion. +edema. opens eyes. does not follow commands. cxr worse. Objective Last 24 Hour Vital Signs Date Time Temp Pulse Resp B/P (MAP) Pulse Ox O2 Delivery O2 Flow Rate FiO2 10/02/20 15:19 87 31 45 10/02/20 12:00 63 10/02/20 12:00 45 10/02/20 12:00 Mechanical Ventilator Mechanical Ventilator 10/02/20 12:00 98.2 67 24 120/71 (87) 97 10/02/20 11:15 83 30 45 10/02/20 08:00 45 10/02/20 08:00 98.2 77 33 110/64 (79) 100 10/02/20 08:00 Mechanical Ventilator Mechanical Ventilator 10/02/20 07:56 72 10/02/20 07:20 81 35 45 10/02/20 04:00 98.1 68 23 108/69 (82) 100 10/02/20 04:00 Mechanical Ventilator Mechanical Ventilator 10/02/20 04:00 45 10/02/20 03:37 71 10/02/20 02:33 63 25 45 10/02/20 00:00 Mechanical Ventilator Mechanical Ventilator 10/02/20 00:00 98.2 65 24 103/68 (80) 100 10/02/20 00:00 45 10/01/20 23:29 59 10/01/20 23:14 64 25 45 10/01/20 20:39 99.1 10/01/20 20:00 100.6 104 26 114/63 (80) 98 10/01/20 20:00 Mechanical Ventilator Mechanical Ventilator 10/01/20 20:00 45 10/01/20 19:07 89 31 45 10/01/20 19:01 88 Intake and Output 10/01/20 10/02/20 19:00 07:00 Intake Total 525 ml 922 ml Output Total 700 ml 250 ml Balance -175 ml 672 ml Free Water 30 ml IV Total 525 ml 892 ml Output Urine Total 700 ml 250 ml Laboratory Tests 10/01/20 19:04: White Blood Count 18.3#H, Red Blood Count 2.90L, Hemoglobin 8.4L, Hematocrit 24.3L, Mean Corpuscular Volume 84, Mean Corpuscular Hemoglobin 29.1, Mean Corpuscular Hemoglobin Concent 34.6, Red Cell Distribution Width 14.6, Platelet Count 189, Mean Platelet Volume 6.6, Neutrophils (%) (Auto) , Lymphocytes (%) (Auto) , Monocytes (%) (Auto) , Eosinophils (%) (Auto) , Basophils (%) (Auto) , Differential Total Cells Counted 100, Neutrophils % (Manual) 89H, Lymphocytes % (Manual) 6L, Monocytes % (Manual) 2, Eosinophils % (Manual) 0, Basophils % (Manual) 0, Band Neutrophils 3, Platelet Estimate Adequate, Platelet Morphology Normal, Hypochromasia 1+, Anisocytosis 1+ 10/02/20 03:57: White Blood Count 14.0H, Red Blood Count 2.72L, Hemoglobin 7.9L, Hematocrit 23.3L, Mean Corpuscular Volume 86, Mean Corpuscular Hemoglobin 28.9, Mean Corpuscular Hemoglobin Concent 33.7, Red Cell Distribution Width 14.2, Platelet Count 164, Mean Platelet Volume 7.4, Neutrophils (%) (Auto) , Lymphocytes (%) (Auto) , Monocytes (%) (Auto) , Eosinophils (%) (Auto) , Basophils (%) (Auto) Height (Feet): 6 Height (Inches): 1.00 Weight (Pounds): 148 Objective General Appearance: WD/WN, confused. EENT: normal ENT inspection. +trach, dressing clean Neck: normal alignment, supple Cardiovascular: normal rate, regular rhythm Respiratory/Chest: rhonchi - bilaterally. 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 grossly normal, responsive, disoriented Lymphatic: normal anterior cervical (L), normal anterior cervical (R), normal posterior cervical (L), normal posterior cervical (R) Assessment/Plan Problem List: (1) PNA (pneumonia) ICD Codes: J18.9 - Pneumonia, unspecified organism SNOMED: 967166224 (2) UTI (urinary tract infection) ICD Codes: N39.0 - Urinary tract infection, site not specified SNOMED: 89620535 (3) Fever ICD Codes: R50.9 - Fever, unspecified SNOMED: 465466725 Qualifiers: Qualified Codes: R50.9 - Fever, unspecified (4) Decubitus skin ulcer ICD Codes: L89.90 - Pressure ulcer of unspecified site, unspecified stage SNOMED: 199104416 (5) Malnutrition ICD Codes: E46 - Unspecified protein-calorie malnutrition SNOMED: 19659540 (6) Severe sepsis ICD Codes: A41.9 - Sepsis, unspecified organism; R65.20 - Severe sepsis without septic shock SNOMED: 74313476 (7) Hematuria ICD Codes: R31.9 - Hematuria, unspecified SNOMED: 93588404 Status: stable Assessment/Plan: cont iv abx per id resp rx and suctioning trach care titrate fio2 monitor abg skin care tube feeds monitor labs poor prognosis Jason Layne MD Oct 02, 2020 16:13
--- NOTE | 2020-10-02 17:35 | NUR ---
*-*DISCHARGE PLANNING*-* PATIENT HAS BEEN REFERRED TO: ROBERTA ELLISON P: [phone] S/W YAW, WILL CALL INSURANCE TOMORROW
--- NOTE | 2020-10-02 17:49 | General Progress Note ---
Subjective Allergies: Coded Allergies: VANCOMYCIN (Verified Allergy, Severe, hive, 09/28/20) Subjective NAD more calm today s/p PEG yesterday TF orders given Objective Last 24 Hour Vital Signs Date Time Temp Pulse Resp B/P (MAP) Pulse Ox O2 Delivery O2 Flow Rate FiO2 10/02/20 16:00 81 10/02/20 16:00 45 10/02/20 16:00 98.1 89 34 140/85 (103) 99 10/02/20 16:00 Mechanical Ventilator Mechanical Ventilator 10/02/20 15:19 87 31 45 10/02/20 12:00 63 10/02/20 12:00 45 10/02/20 12:00 Mechanical Ventilator Mechanical Ventilator 10/02/20 12:00 98.2 67 24 120/71 (87) 97 10/02/20 11:15 83 30 45 10/02/20 08:00 45 10/02/20 08:00 98.2 77 33 110/64 (79) 100 10/02/20 08:00 Mechanical Ventilator Mechanical Ventilator 10/02/20 07:56 72 10/02/20 07:20 81 35 45 10/02/20 04:00 98.1 68 23 108/69 (82) 100 10/02/20 04:00 Mechanical Ventilator Mechanical Ventilator 10/02/20 04:00 45 10/02/20 03:37 71 10/02/20 02:33 63 25 45 10/02/20 00:00 Mechanical Ventilator Mechanical Ventilator 10/02/20 00:00 98.2 65 24 103/68 (80) 100 10/02/20 00:00 45 10/01/20 23:29 59 10/01/20 23:14 64 25 45 10/01/20 20:39 99.1 10/01/20 20:00 100.6 104 26 114/63 (80) 98 10/01/20 20:00 Mechanical Ventilator Mechanical Ventilator 10/01/20 20:00 45 10/01/20 19:07 89 31 45 10/01/20 19:01 88 Intake and Output 10/01/20 10/02/20 19:00 07:00 Intake Total 525 ml 922 ml Output Total 700 ml 250 ml Balance -175 ml 672 ml Free Water 30 ml IV Total 525 ml 892 ml Output Urine Total 700 ml 250 ml Laboratory Tests 10/01/20 19:04: White Blood Count 18.3#H, Red Blood Count 2.90L, Hemoglobin 8.4L, Hematocrit 24.3L, Mean Corpuscular Volume 84, Mean Corpuscular Hemoglobin 29.1, Mean Corpuscular Hemoglobin Concent 34.6, Red Cell Distribution Width 14.6, Platelet Count 189, Mean Platelet Volume 6.6, Neutrophils (%) (Auto) , Lymphocytes (%) (Auto) , Monocytes (%) (Auto) , Eosinophils (%) (Auto) , Basophils (%) (Auto) , Differential Total Cells Counted 100, Neutrophils % (Manual) 89H, Lymphocytes % (Manual) 6L, Monocytes % (Manual) 2, Eosinophils % (Manual) 0, Basophils % (Manual) 0, Band Neutrophils 3, Platelet Estimate Adequate, Platelet Morphology Normal, Hypochromasia 1+, Anisocytosis 1+ 10/02/20 03:57: White Blood Count 14.0H, Red Blood Count 2.72L, Hemoglobin 7.9L, Hematocrit 23.3L, Mean Corpuscular Volume 86, Mean Corpuscular Hemoglobin 28.9, Mean Corpuscular Hemoglobin Concent 33.7, Red Cell Distribution Width 14.2, Platelet Count 164, Mean Platelet Volume 7.4, Neutrophils (%) (Auto) , Lymphocytes (%) (Auto) , Monocytes (%) (Auto) , Eosinophils (%) (Auto) , Basophils (%) (Auto) Height (Feet): 6 Height (Inches): 1.00 Weight (Pounds): 148 Objective Thin WM on vent/trach calm, awake Skin: no hematoma or ecchymosis HEENT NCAT supple, (+) trach coarse ronchi RR, slightly tachy abd soft flat ND no edema Assessment/Plan Status: stable Assessment/Plan: Assessment - Lower H&H, - no clinical source of acute blood loss - possibly due to volume shifting/ redistribution - resp failure - s/p PEG - OBS/Dementia - sepsis - diarrhea, C Diff (-) - Azotemia, resolved - CHF - malnutrition , low albumin - leukocytosis - hypernatremia Recommendations -Vent care / support - cards and pulm follow up - supportive care - abx - PPI - Begin TF Deborah Cabrera MD Oct 02, 2020 17:49
--- NOTE | 2020-10-02 19:30 | NUR ---
NURSE NOTES: received pt from Joby ULLOA., pt is wake and opens eyes, AOx0. pt is kicking and keep moving in the bed. new Peg site noted, JEvity 1.2 is running at 30ml/hr, no residual noted. no active bleeding noted at this time. no SOB noted,. trach to vent Shiely 8 AC 12 TV 450 Fio2 45% P7. andrade cath noted, intact, and draining well with gravity, no bleeding noted. skin alternations noted, dressing sites are dry, clean, and intact. right FA 18G IV site intact, clean, and patent. seizure precaution applied, side rails are padded. call light within reach. will continue to monitor pt. bed at the lowest position, alarmed, and locked.
--- NOTE | 2020-10-02 19:49 | NUR ---
NURSE HAND-OFF REPORT: Important Events on Shift: Patient Status: stable on trach to vent Diet: Jevity 1.2 continuous at goal of 60ML/HR. Pending Orders: Pending Results/Labs: Pending MD notification: Latest Vital Signs: Temperature 98.1 , Pulse 69 , B/P 140 /85 , Respiratory Rate 31 , O2 SAT 99 , Mechanical Ventilator, O2 Flow Rate 15.0 . Vital Sign Comment: EKG Rhythm: Sinus Rhythm Rhythm change?: N Notified?: N -Dr Jacklyn BENITEZ Response: No New Orders Received Latest Schultz Fall Score: 70 Fall Risk: High Risk Safety Measures: Call light Within Reach, Bed Alarm Zone 1, Side Rails Side Rails x3, Bed position Low and Locked. Fall Precautions: Yellow Socks Door Sign Patient Fall Education Report given to ARTEMIO Miller.
[2020-10-02 20:00] VITALS: BP 119/77
[2020-10-02] MEDS: Tamsulosin 0.4mg cap ORAL SCH (21:28)
[2020-10-02] MEDS: Valproic Acid 250mg/5ml Liquid NG SCH (21:28)
--- NOTE | 2020-10-02 22:00 | NUR ---
NURSE NOTES: O2sat is at 98%. call light within reach.
[2020-10-02] MEDS ORDERED: NS 275ml ONE (22:49)
--- NOTE | 2020-10-02 23:29 | Cardiology Progress Note ---
Subjective DATE OF SERVICE: Oct 02, 2020 Condition remains critical; prognosis guarded. Remains on vent via trach, requiring 50-60% oxygen delivery. S/P uncomplicated PEG placement today BP remains mostly controlled. Monitor: sinus/ sinus tachycardia. ABG: (09/30/20) 7.54/29/191 Objective Last 24 Hour Vital Signs Date Time Temp Pulse Resp B/P (MAP) Pulse Ox O2 Delivery O2 Flow Rate FiO2 10/02/20 20:00 Mechanical Ventilator Mechanical Ventilator 10/02/20 20:00 45 10/02/20 20:00 98.1 68 25 119/77 (91) 100 10/02/20 19:21 70 10/02/20 18:30 69 31 45 10/02/20 16:00 81 10/02/20 16:00 45 10/02/20 16:00 98.1 89 34 140/85 (103) 99 10/02/20 16:00 Mechanical Ventilator Mechanical Ventilator 10/02/20 15:19 87 31 45 10/02/20 12:00 63 10/02/20 12:00 45 10/02/20 12:00 Mechanical Ventilator Mechanical Ventilator 10/02/20 12:00 98.2 67 24 120/71 (87) 97 10/02/20 11:15 83 30 45 10/02/20 08:00 45 10/02/20 08:00 98.2 77 33 110/64 (79) 100 10/02/20 08:00 Mechanical Ventilator Mechanical Ventilator 10/02/20 07:56 72 10/02/20 07:20 81 35 45 10/02/20 04:00 98.1 68 23 108/69 (82) 100 10/02/20 04:00 Mechanical Ventilator Mechanical Ventilator 10/02/20 04:00 45 10/02/20 03:37 71 10/02/20 02:33 63 25 45 10/02/20 00:00 Mechanical Ventilator Mechanical Ventilator 10/02/20 00:00 98.2 65 24 103/68 (80) 100 10/02/20 00:00 45 10/01/20 23:29 59 ROS: no change from my evaluation of 09/10/20. HEENT: Mechanically Ventilated, Thin Trach secretions RHYTHM: NSR, ST LUNGS: bilat. rhonchi and rales, trach site clean CARDIAC: normal rate, regular rhythm, normal S1 and S2 ABDOMEN: normal bowel sounds, soft, other - sacral decub EXTREMITIES: +1 edema Laboratory Tests Test 10/02/20 03:57 White Blood Count 14.0 K/UL (4.8-10.8) H Red Blood Count 2.72 M/UL (4.70-6.10) L Hemoglobin 7.9 G/DL (14.2-18.0) L Hematocrit 23.3 % (42.0-52.0) L Mean Corpuscular Volume 86 FL (80-99) Mean Corpuscular Hemoglobin 28.9 PG (27.0-31.0) Mean Corpuscular Hemoglobin Concent 33.7 G/DL (32.0-36.0) Red Cell Distribution Width 14.2 % (11.6-14.8) Platelet Count 164 K/UL (150-450) Mean Platelet Volume 7.4 FL (6.5-10.1) Neutrophils (%) (Auto) % (45.0-75.0) Lymphocytes (%) (Auto) % (20.0-45.0) Monocytes (%) (Auto) % (1.0-10.0) Eosinophils (%) (Auto) % (0.0-3.0) Basophils (%) (Auto) % (0.0-2.0) Assessment/Plan Assessment/Plan Respiratory failure with hypoxia - s/p tracheostomy Sepsis Leukocytosis Aspiration PNA Recurring shock Diarrhea Dehydration/hypernatremia corrected Acute myocardial ischemia Acute renal failure HC assoc PNA UTI Transaminitis, acute CVA/dementia Paroxysmal sinus bradycardia and tachycardia Acute diastolic CHF Severe protein/calorie malnutrition with dysphagia; now s/p PEG Remains CRITICAL & GUARDED Vent support with trach care. Maintenance IVF hydration while NPO Antimicrobials per ID. Replace lytes as needed. DVT prophyl Cardiac monitoring Diuresis trial based on clinical parameters. Madi Rios MD Oct 02, 2020 23:29
--- NOTE | 2020-10-02 23:45 | NUR ---
NURSE NOTES: pt is resting on the bed, stable. no active bleeding noted. call light within reach.
[2020-10-03] VITALS: BP 117/82
--- NOTE | 2020-10-03 02:00 | NUR ---
NURSE NOTES: cleaned pt, repositioned pt. no active bleeding noted. call light within reach. will continue to monitor pt. oral care given.
[2020-10-03 04:00] VITALS: BP 115/76
--- NOTE | 2020-10-03 07:21 | NUR ---
NURSE NOTES: Received report from ARTEMIO Harkins. Patient is on bed, sleeping, no signs of grimacing and distress noted. Patient is on trache-vent S8 with settings of AC 16, Vt 450, FiO2 45%, PEEP of 7, tolerating well. Patient has a GT, patent, intact, running Jevity 1.2 at 45 cc/hr, tolerating well. 2 IV sites R AC 20 g and R H 20 g, patent, intact, saline locked. HOB elevated, bed is on lowest position, locked, side rails up. Patient will continue to be monitored.
--- NOTE | 2020-10-03 07:21 | NUR ---
NURSE HAND-OFF REPORT: Important Events on Shift:[pt is keep moving to side to side] Patient Status: [stable] Diet: [jevity 1.2 @ 60ml/hr] Pending Orders: [n/a] Pending Results/Labs:[n/a] Pending MD notification:[n/a] Latest Vital Signs: Temperature 98.2 , Pulse 75 , B/P 115 /76 , Respiratory Rate 22 , O2 SAT 100 , Mechanical Ventilator, O2 Flow Rate 15.0 . Vital Sign Comment: [stable] EKG Rhythm: Sinus Rhythm Rhythm change?: N MD Notified?: N - MD Response: Latest Schultz Fall Score: 70 Fall Risk: High Risk Safety Measures: Call light Within Reach, Bed Alarm Zone 1, Side Rails Side Rails x3, Bed position Low and Locked. Fall Precautions: Yellow Socks Door Sign Patient Fall Education Report given to Saran ULLOA
[2020-10-03 08:00] VITALS: BP 115/69
--- NOTE | 2020-10-03 08:55 | Urology Progress Note ---
Assessment/Plan Status: stable Assessment/Plan: 1. Gross hematuria. 2. Pyuria and possible UTI. 3. Proteinuria. 4. BPH. 5. Urinary retention. 6. Probable neurogenic bladder. 7. Possible sepsis. monitor clinically maintain andrade, secured to pt's leg hand irrigated and do PRN s/p abx flomax and proscar cysto electively voiding trial at some point? Subjective Allergies: Coded Allergies: VANCOMYCIN (Verified Allergy, Severe, hive, 09/28/20) Subjective remains on vent, trach 09/27 Objective Last 24 Hour Vital Signs Date Time Temp Pulse Resp B/P (MAP) Pulse Ox O2 Delivery O2 Flow Rate FiO2 10/03/20 07:26 61 18 45 10/03/20 04:00 Mechanical Ventilator Mechanical Ventilator 10/03/20 04:00 98.2 75 22 115/76 (89) 100 10/03/20 04:00 45 10/03/20 03:07 74 39 45 10/03/20 03:02 72 10/03/20 00:00 98.1 85 30 117/82 (94) 100 10/03/20 00:00 Mechanical Ventilator Mechanical Ventilator 10/02/20 23:24 72 39 45 10/02/20 23:12 76 10/02/20 20:00 Mechanical Ventilator Mechanical Ventilator 10/02/20 20:00 45 10/02/20 20:00 98.1 68 25 119/77 (91) 100 10/02/20 19:21 70 10/02/20 18:30 69 31 45 10/02/20 16:00 81 10/02/20 16:00 45 10/02/20 16:00 98.1 89 34 140/85 (103) 99 10/02/20 16:00 Mechanical Ventilator Mechanical Ventilator 10/02/20 15:19 87 31 45 10/02/20 12:00 63 10/02/20 12:00 45 10/02/20 12:00 Mechanical Ventilator Mechanical Ventilator 10/02/20 12:00 98.2 67 24 120/71 (87) 97 10/02/20 11:15 83 30 45 Intake and Output 10/02/20 10/03/20 19:00 07:00 Intake Total 170 ml 375 ml Output Total 650 ml 450 ml Balance -480 ml -75 ml Free Water 120 ml 60 ml Tube Feeding 50 ml 315 ml Output Urine Total 650 ml 450 ml Microbiology Date/Time Source Procedure Growth Status 09/24/20 10:50 Nasopharynx SARS-CoV-2 RdRp Gene Assay - Final Complete 09/18/20 18:30 Stool Clostridium difficile Toxin Assay - Final Complete 09/17/20 12:58 Blood Blood Culture - Final NO GROWTH AFTER 5 DAYS Complete 09/10/20 20:05 Urine,Clean Catch Urine Culture - Final NO GROWTH AFTER 48 HOURS Complete 09/10/20 17:15 Rectum VRE Culture - Final Enterococcus Faecalis - Vre Complete Current Medications Medications (Trade) Dose Ordered Sig/Aleksander Route PRN Reason Start Time Stop Time Status Last Admin Dose Admin Acetaminophen (Tylenol) 650 mg Q4H PRN NG Temp >100.5 09/10/20 23:15 10/10/20 23:14 10/01/20 20:09 Al Hydroxide/Mg Hydroxide (Mylanta) 30 ml Q4H PRN NG Constipation 09/11/20 00:15 10/10/20 23:14 Ascorbic Acid (Vitamin C) 250 mg DAILY NG 09/26/20 09:00 10/18/20 08:59 10/02/20 09:18 Diphenhydramine HCl (Benadryl) 25 mg Q6H PRN IVP Itching 09/27/20 12:15 10/27/20 12:14 10/01/20 10:45 Diphenoxylate HCl/ Atropine (Lomotil) 2.5 mg Q4H PRN ORAL Diarrhea 09/20/20 08:15 10/20/20 08:14 Finasteride (Proscar) 5 mg DAILY ORAL 09/13/20 09:00 12/12/20 08:59 10/02/20 09:18 Furosemide (Lasix) 40 mg DAILY IV 10/03/20 09:00 11/02/20 08:59 Multivitamins (Multivitamins W/ Minerals 15ml Liquid) 15 ml DAILY NG 09/26/20 09:00 10/26/20 08:59 10/02/20 09:18 Ondansetron HCl (Zofran) 4 mg Q6H PRN IVP Nausea & Vomiting 09/10/20 23:15 10/10/20 23:14 Pantoprazole (Protonix) 40 mg DAILY IVP 09/11/20 09:00 10/11/20 08:59 10/02/20 09:19 Tamsulosin HCl (Flomax) 0.4 mg BEDTIME ORAL 09/12/20 21:00 10/12/20 20:59 10/02/20 21:28 Valproic Acid (Depakene) 1,000 mg BEDTIME NG 09/16/20 21:00 10/31/20 20:59 10/02/20 21:28 Zinc Sulfate (Zinc Sulfate) 220 mg DAILY NG 09/26/20 09:00 10/06/20 08:59 10/02/20 09:18 Height (Feet): 6 Height (Inches): 1.00 Weight (Pounds): 148 Objective exam stable urine clearing Levi Brunson MD Oct 03, 2020 08:54
[2020-10-03] MEDS: Multivitamins W/Minerals 15 ML UDC NG SCH (09:44)
[2020-10-03] MEDS: Pantoprazole Inj IVP SCH (09:44)
[2020-10-03] MEDS: Zinc Sulfate 220mg NG SCH (09:45)
[2020-10-03] MEDS: Ascorbic Acid 500mg tab NG SCH (09:45)
--- NOTE | 2020-10-03 11:19 | Infectious Diseases Prog Note ---
Assessment/Plan Assessment/Plan antibiotics : none A 1. MRSA Pneumonia s/p rx COVID-19 test is negative. 2. Dementia. 3. Leukocytosis improving 4. respiratory failure s/p tracheostomy 5. allergic reaction to vancomycin resolved P 1. observe off antibiotics Subjective ROS Limited/Unobtainable: Yes Allergies: Coded Allergies: VANCOMYCIN (Verified Allergy, Severe, hive, 09/28/20) Objective Last 24 Hour Vital Signs Date Time Temp Pulse Resp B/P (MAP) Pulse Ox O2 Delivery O2 Flow Rate FiO2 10/03/20 08:00 Mechanical Ventilator Mechanical Ventilator 10/03/20 08:00 98.1 85 30 115/69 (84) 97 10/03/20 08:00 68 10/03/20 08:00 45 10/03/20 07:26 61 18 45 10/03/20 04:00 Mechanical Ventilator Mechanical Ventilator 10/03/20 04:00 98.2 75 22 115/76 (89) 100 10/03/20 04:00 45 10/03/20 03:07 74 39 45 10/03/20 03:02 72 10/03/20 00:00 98.1 85 30 117/82 (94) 100 10/03/20 00:00 Mechanical Ventilator Mechanical Ventilator 10/02/20 23:24 72 39 45 10/02/20 23:12 76 10/02/20 20:00 Mechanical Ventilator Mechanical Ventilator 10/02/20 20:00 45 10/02/20 20:00 98.1 68 25 119/77 (91) 100 10/02/20 19:21 70 10/02/20 18:30 69 31 45 10/02/20 16:00 81 10/02/20 16:00 45 10/02/20 16:00 98.1 89 34 140/85 (103) 99 10/02/20 16:00 Mechanical Ventilator Mechanical Ventilator 10/02/20 15:19 87 31 45 10/02/20 12:00 63 10/02/20 12:00 45 10/02/20 12:00 Mechanical Ventilator Mechanical Ventilator 10/02/20 12:00 98.2 67 24 120/71 (87) 97 Height (Feet): 6 Height (Inches): 1.00 Weight (Pounds): 148 HEENT: status post trach Respiratory/Chest: lungs clear Cardiovascular: normal rate, regular rhythm, no gallop/murmur Abdomen: soft, non tender, other - GT Extremities: other - + edema Current Medications Medications (Trade) Dose Ordered Sig/Aleksander Route PRN Reason Start Time Stop Time Status Last Admin Dose Admin Acetaminophen (Tylenol) 650 mg Q4H PRN NG Temp >100.5 09/10/20 23:15 10/10/20 23:14 10/01/20 20:09 Al Hydroxide/Mg Hydroxide (Mylanta) 30 ml Q4H PRN NG Constipation 09/11/20 00:15 10/10/20 23:14 Ascorbic Acid (Vitamin C) 250 mg DAILY NG 09/26/20 09:00 10/18/20 08:59 10/03/20 09:45 Diphenhydramine HCl (Benadryl) 25 mg Q6H PRN IVP Itching 09/27/20 12:15 10/27/20 12:14 10/01/20 10:45 Diphenoxylate HCl/ Atropine (Lomotil) 2.5 mg Q4H PRN ORAL Diarrhea 09/20/20 08:15 10/20/20 08:14 Finasteride (Proscar) 5 mg DAILY ORAL 09/13/20 09:00 12/12/20 08:59 10/03/20 09:44 Furosemide (Lasix) 40 mg DAILY IV 10/03/20 09:00 11/02/20 08:59 10/03/20 09:44 Multivitamins (Multivitamins W/ Minerals 15ml Liquid) 15 ml DAILY NG 09/26/20 09:00 10/26/20 08:59 10/03/20 09:44 Ondansetron HCl (Zofran) 4 mg Q6H PRN IVP Nausea & Vomiting 09/10/20 23:15 10/10/20 23:14 Pantoprazole (Protonix) 40 mg DAILY IVP 09/11/20 09:00 10/11/20 08:59 10/03/20 09:44 Tamsulosin HCl (Flomax) 0.4 mg BEDTIME ORAL 09/12/20 21:00 10/12/20 20:59 10/02/20 21:28 Valproic Acid (Depakene) 1,000 mg BEDTIME NG 09/16/20 21:00 10/31/20 20:59 10/02/20 21:28 Zinc Sulfate (Zinc Sulfate) 220 mg DAILY NG 09/26/20 09:00 10/06/20 08:59 10/03/20 09:45 Martha Collins MD Oct 03, 2020 11:19
[2020-10-03 12:00] VITALS: BP 146/89
--- NOTE | 2020-10-03 12:33 | NUR ---
CASE MANAGEMENT:REVIEW SI;RESP FAILURE S/P TRACH TRACH/VENT DEPENDENT,SEPSIS. 98.2 85 39 117/82 97% TRACH/VENT AC 16 TV 450 PEEP 7 FIO2 45% IS;LASIX IV QD K-DUR GT ONCE PROTONIX IV QD FLOMAX GT HS PROSCAR GT QD DEPAKENE GT HS ASTER STATUS DCP;TO ROBERTA ELLISON
--- NOTE | 2020-10-03 13:30 | General Progress Note ---
Subjective Allergies: Coded Allergies: VANCOMYCIN (Verified Allergy, Severe, hive, 09/28/20) Subjective on vent contracted trach placed oxygenation noted in ASTER anemic Objective Last 24 Hour Vital Signs Date Time Temp Pulse Resp B/P (MAP) Pulse Ox O2 Delivery O2 Flow Rate FiO2 10/03/20 11:13 113 23 45 10/03/20 08:00 Mechanical Ventilator Mechanical Ventilator 10/03/20 08:00 98.1 85 30 115/69 (84) 97 10/03/20 08:00 68 10/03/20 08:00 45 10/03/20 07:26 61 18 45 10/03/20 04:00 Mechanical Ventilator Mechanical Ventilator 10/03/20 04:00 98.2 75 22 115/76 (89) 100 10/03/20 04:00 45 10/03/20 03:07 74 39 45 10/03/20 03:02 72 10/03/20 00:00 98.1 85 30 117/82 (94) 100 10/03/20 00:00 Mechanical Ventilator Mechanical Ventilator 10/02/20 23:24 72 39 45 10/02/20 23:12 76 10/02/20 20:00 Mechanical Ventilator Mechanical Ventilator 10/02/20 20:00 45 10/02/20 20:00 98.1 68 25 119/77 (91) 100 10/02/20 19:21 70 10/02/20 18:30 69 31 45 10/02/20 16:00 81 10/02/20 16:00 45 10/02/20 16:00 98.1 89 34 140/85 (103) 99 10/02/20 16:00 Mechanical Ventilator Mechanical Ventilator 10/02/20 15:19 87 31 45 Intake and Output 10/02/20 10/03/20 19:00 07:00 Intake Total 170 ml 375 ml Output Total 650 ml 450 ml Balance -480 ml -75 ml Free Water 120 ml 60 ml Tube Feeding 50 ml 315 ml Output Urine Total 650 ml 450 ml Height (Feet): 6 Height (Inches): 1.00 Weight (Pounds): 148 Objective WDWN chronically ill trach in place feeding tube in place reduced breath sounds bilaterally with scattered rhonchi [id number] without MRG NABS nontender no CCE nonfocal poor LOC Assessment/Plan Status: stable Assessment/Plan: IMPRESSION: 1. Acute renal failure. 2. Hypernatremia. 3. Leukocytosis. 4. Possible sepsis. 5. Hypotension. 6. Dementia. 7. Acute on chronic encephalopathy. 8. bcx staph Epi 9. MRSA colonized 10. acute hypoxemic respiratory failure 11. atelectasis/collapse 12. leukocytosis 13. trach PLAN follow up HH taper fio2 as able ID noted; monitor follow up on antibiotics monitor oxygen needs vent support full for now off load as able monitor lytes position change monitor imaging d/w consultants and nursing remains critical trach care dc plan to subacute if accepted impression, plan, and exam edited and reviewed in detail care discussed with Patel Tesfaye MD Oct 03, 2020 13:30
--- NOTE | 2020-10-03 15:17 | Surgery Progress Note ---
Surgery Progress Note Subjective Procedure Performed tracheostomy Symptoms: improved, tolerating diet, passing flatus Objective Last 24 Hour Vital Signs Date Time Temp Pulse Resp B/P (MAP) Pulse Ox O2 Delivery O2 Flow Rate FiO2 10/03/20 12:00 Mechanical Ventilator Mechanical Ventilator 10/03/20 12:00 98.1 114 27 146/89 (108) 96 10/03/20 11:41 121 10/03/20 11:13 113 23 45 10/03/20 08:00 Mechanical Ventilator Mechanical Ventilator 10/03/20 08:00 98.1 85 30 115/69 (84) 97 10/03/20 08:00 68 10/03/20 08:00 45 10/03/20 07:26 61 18 45 10/03/20 04:00 Mechanical Ventilator Mechanical Ventilator 10/03/20 04:00 98.2 75 22 115/76 (89) 100 10/03/20 04:00 45 10/03/20 03:07 74 39 45 10/03/20 03:02 72 10/03/20 00:00 98.1 85 30 117/82 (94) 100 10/03/20 00:00 Mechanical Ventilator Mechanical Ventilator 10/02/20 23:24 72 39 45 10/02/20 23:12 76 10/02/20 20:00 Mechanical Ventilator Mechanical Ventilator 10/02/20 20:00 45 10/02/20 20:00 98.1 68 25 119/77 (91) 100 10/02/20 19:21 70 10/02/20 18:30 69 31 45 10/02/20 16:00 81 10/02/20 16:00 45 10/02/20 16:00 98.1 89 34 140/85 (103) 99 10/02/20 16:00 Mechanical Ventilator Mechanical Ventilator 10/02/20 15:19 87 31 45 I&O Intake and Output 10/02/20 10/03/20 19:00 07:00 Intake Total 170 ml 375 ml Output Total 650 ml 450 ml Balance -480 ml -75 ml Free Water 120 ml 60 ml Tube Feeding 50 ml 315 ml Output Urine Total 650 ml 450 ml Dressing: saturated Cardiovascular: RSR Respiratory: decreased breath sounds Abdomen: non-tender, present bowel sounds Extremities: no edema, no tenderness, no cyanosis Plan Problems: (1) Fever Assessment & Plan: maybe developing pneumonia cont abx pulm input thank you (2) Decubitus skin ulcer Assessment & Plan: Patient identified on admission to have multiple scabs on the left arm. mild open scabs with eschar. no drainage. no significant cellulitis. bruising no bilateral extremities noted. no signs of abuse. likely from agitation Sacral coccygeal noted to have a DTI 4.3X2.5CM. which is dark purple . RECOMMEND-CLEAN WITH SALINE, PAT DRY AND APPLY CALAZINE. COVER WITH OPTIFOAM DRESSING. REPLACE EVERY 3 DAYS OR NEEDED LEFT ISCHIUM- STAGE I PRESSURE ULCER MEASURES 4.5X1.7CM. NON-BLANCHABLE ERYTHEMA. RECOMMEND- APPLY CALAZINE AND COVER WITH OPTIFOAM DRESSING. REPLACE EVERY 7 DAYS. 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 Roman is a 70 year old male BIBA to ED [place] [facility] [place]10/2020 around 14:00 due to fever. He was found to be hypotensive 91/55 (67), Temp: 100.0, leukocytosis 20.8k and subsequently transferred to ICU for septic shock. The blood culture is reportedly positive for gram positive cocci. NG tube was placed, KUB confirmed the placement to day. Pt is clinically stable with leukocytosis 20.1, improved BUN and creatine, stable hemodynamic without vasopressor. Findings: Mr. Roman is disoriented. He does ot follow commands at this time. Oral cavity is noted to be dried blood concretion likely from NG trauma. No active bleeding site is seen. Due to his level f alertness, already NG tube is in placed, PO trial was not done at this time. Transferred out ICU last night. He is non on tele. Issues: multiple wounds, s.p balaji/nasal/pharyngeal bleeding with blood culture Gram positive cocci leukocytosis trending down from 20k-20k-16k BUN/Creatine trending down from 93/1.9-79/1.3-54/1.1 Temp: 98.1~98.7, Pulse: 62~72, BP: 105/67~120/48, SPO2 98~100% on 2 liter S: Oral cavity is better condition comparison to yesterday. The mucosa is severely erythema without active bleeding. Limited level of alertness for direct therapy. NG in placed O: 1. Laryngeal palpation to trigger spontaneous cough and swallow: Pt triggered cough with laryngeal palpation. Approximately 5~10 seconds after coughing, he triggered swallow. based on this observation, he presents with copious secretion in pharynx and larynx. He continued to have poor secretion management at laryngeal level at this time. NO PO trial was given due to poor secretion at the level of air way with low level of alertness. A: 1. Probable aspiration of his own secretion with poor ability to cough and swallow 2. Dysphagia P: 1. NPO for now 2. Observe his secretion, and level of alertness for PO readiness. DAILY ESTIMATED NEEDS: Needs based on Wound, underweight/ 55kg 30-35 kcals/kg 6415-9938 total kcals 1.25-2 g protein/kg 69-110 g total protein 25-30 mL/kg 6089-7393 total fluid mLs NUTRITION DIAGNOSIS: Increased kcal/prot needs R/T wound healing and underweight status as evidenced by pt admitted w/ wounds including DTI 2 coccyx and stage 1 @ lt ischium, pt @ 73% IBW w/ low BMI per guidelines, s/p NGT insertion, on NGT feeds. CURRENT TF:Jevity 1.2 @ 50ml/hr x 24 hrs ENTERAL NUTRITION RECOMMENDATIONS: Jevity 1.2 @ 60ml/hr x 24 hrs to provide 1440ml, 1728kcal, 80g prot, 1160ml free water * As medically appropriate, increase goal rate to 60ml/hr x 24 hrs to meet 100% est kcal/prot needs * HOB over 30 degrees/ without IVF, H2O flush of 100ml q 8hrs ADDITIONAL RECOMMENDATIONS: * Calibrated daily bedscale wt Per SNF: HT=70" * Wound healing: TF rec @ goal will provide 100% RDI add Vit C 250mg QD, ZnSO4 220mg QD x 10days, Davidson BID via NGT * Monitor BGs, need for NISS w/ TF * Monitor lytes, replete as needed- high risk for refeeding syndrome -> check f/up phos and mag (4) Severe sepsis Assessment & Plan: will likely need trach and peg. patient needs protected airway and nutrition full code no family and unable to consent medically necessary. will plan soon (5) Open upper arm wound (6) Hematuria Assessment & Plan: as per urology Aubrey Gutierrez Oct 03, 2020 15:17
[2020-10-03 16:00] VITALS: BP 105/72
--- NOTE | 2020-10-03 17:13 | General Progress Note ---
Subjective ROS Limited/Unobtainable: No Constitutional: Reports: malaise, weakness HEENT: Reports: no symptoms Cardiovascular: Reports: no symptoms Respiratory: Reports: cough, shortness of breath, sputum Gastrointestinal/Abdominal: Reports: difficulty swallowing Genitourinary: Reports: no symptoms Neurologic/Psychiatric: Reports: pre-existing deficit Endocrine: Reports: no symptoms Hematologic/Lymphatic: Reports: no symptoms Allergies: Coded Allergies: VANCOMYCIN (Verified Allergy, Severe, hive, 09/28/20) All Systems: reviewed and negative except above Subjective no events. o2 sats improving. more alert and anxious. mild congestion. +edema. opens eyes. does not follow commands. cxr worse. Objective Last 24 Hour Vital Signs Date Time Temp Pulse Resp B/P (MAP) Pulse Ox O2 Delivery O2 Flow Rate FiO2 10/03/20 15:18 69 18 45 10/03/20 12:00 Mechanical Ventilator Mechanical Ventilator 10/03/20 12:00 45 10/03/20 12:00 98.1 114 27 146/89 (108) 96 10/03/20 11:41 121 10/03/20 11:13 113 23 45 10/03/20 08:00 Mechanical Ventilator Mechanical Ventilator 10/03/20 08:00 98.1 85 30 115/69 (84) 97 10/03/20 08:00 68 10/03/20 08:00 45 10/03/20 07:26 61 18 45 10/03/20 04:00 Mechanical Ventilator Mechanical Ventilator 10/03/20 04:00 98.2 75 22 115/76 (89) 100 10/03/20 04:00 45 10/03/20 03:07 74 39 45 10/03/20 03:02 72 10/03/20 00:00 98.1 85 30 117/82 (94) 100 10/03/20 00:00 Mechanical Ventilator Mechanical Ventilator 10/02/20 23:24 72 39 45 10/02/20 23:12 76 10/02/20 20:00 Mechanical Ventilator Mechanical Ventilator 10/02/20 20:00 45 10/02/20 20:00 98.1 68 25 119/77 (91) 100 10/02/20 19:21 70 10/02/20 18:30 69 31 45 Intake and Output 10/02/20 10/03/20 19:00 07:00 Intake Total 170 ml 375 ml Output Total 650 ml 450 ml Balance -480 ml -75 ml Free Water 120 ml 60 ml Tube Feeding 50 ml 315 ml Output Urine Total 650 ml 450 ml Height (Feet): 6 Height (Inches): 1.00 Weight (Pounds): 148 Objective General Appearance: WD/WN, confused. EENT: normal ENT inspection. +trach, dressing clean Neck: normal alignment, supple Cardiovascular: normal rate, regular rhythm Respiratory/Chest: rhonchi - bilaterally. 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, responsive, disoriented Lymphatic: normal anterior cervical (L), normal anterior cervical (R), normal posterior cervical (L), normal posterior cervical (R) Assessment/Plan Problem List: (1) PNA (pneumonia) ICD Codes: J18.9 - Pneumonia, unspecified organism SNOMED: 541509756 (2) UTI (urinary tract infection) ICD Codes: N39.0 - Urinary tract infection, site not specified SNOMED: 89095597 (3) Fever ICD Codes: R50.9 - Fever, unspecified SNOMED: 406861269 Qualifiers: Qualified Codes: R50.9 - Fever, unspecified (4) Decubitus skin ulcer ICD Codes: L89.90 - Pressure ulcer of unspecified site, unspecified stage SNOMED: 527836130 (5) Malnutrition ICD Codes: E46 - Unspecified protein-calorie malnutrition SNOMED: 57360429 (6) Severe sepsis ICD Codes: A41.9 - Sepsis, unspecified organism; R65.20 - Severe sepsis without septic shock SNOMED: 62796469 (7) Hematuria ICD Codes: R31.9 - Hematuria, unspecified SNOMED: 93182793 Status: stable Assessment/Plan: cont iv abx per id resp rx and suctioning trach care titrate fio2 monitor abg skin care tube feeds monitor labs poor prognosis Jason Layne MD Oct 03, 2020 17:12
--- NOTE | 2020-10-03 17:32 | NUR ---
*-*DISCHARGE PLANNING*-* PATIENT HAS BEEN REFERRED TO: [facility] P: [phone] S/W YAW, CANNOT ACCEPT DUE TO INSURANCE.
--- NOTE | 2020-10-03 17:33 | NUR ---
*-*DISCHARGE PLANNING*-* PATIENT HAS BEEN REFERRED TO: [facility] P: [phone] S/W JAVIER, WILL TRY TO FIGURE OUT THIS PATIENTS INSURANCE ISSUE, PT HAS NO FAMILY OR NO SOCIAL SECURITY. FOLLOW UP TOMORROW
--- NOTE | 2020-10-03 19:15 | NUR ---
NURSE HAND-OFF REPORT: Important Events on Shift: patient is stable Patient Status: Diet: Pending Orders: Pending Results/Labs: Pending MD notification: Latest Vital Signs: Temperature 97.2 , Pulse 73 , B/P 105 /72 , Respiratory Rate 23 , O2 SAT 100 , Mechanical Ventilator, O2 Flow Rate 15.0 . Vital Sign Comment: EKG Rhythm: Sinus Rhythm Rhythm change?: N MD Notified?: N -Dr Jacklyn BENITEZ Response: No New Orders Received Latest Schultz Fall Score: 70 Fall Risk: High Risk Safety Measures: Call light Within Reach, Bed Alarm Zone 1, Side Rails Side Rails x3, Bed position Low and Locked. Fall Precautions: Yellow Socks Door Sign Patient Fall Education Report given to ARTEMIO Harkins.
--- NOTE | 2020-10-03 19:16 | NUR ---
NURSE NOTES: received pt from Saran ULLOA., pt is wake and opens eyes, AOx0. pt is trying to around by kicking. Peg site noted,intact, clean, and patent. JEvity 1.2 is running at 60ml/hr, no residual noted. no active bleeding noted at this time. no SOB noted,. trach to vent Shiely 8 AC 12 TV 450 Fio2 45% P7. andrade cath noted, intact, and draining well with gravity, no bleeding noted. skin alternations noted, dressing sites are dry, clean, and intact. right right AC 20G IV site intact, clean, and patent. seizure precaution applied, side rails are padded. call light within reach. will continue to monitor pt. bed at the lowest position, alarmed, and locked.
[2020-10-03] MEDS ORDERED: NS 275ml ONE (19:31)
[2020-10-03 20:00] VITALS: BP 134/87
[2020-10-03] MEDS: Tamsulosin 0.4mg cap ORAL SCH (21:17)
[2020-10-03] MEDS: Valproic Acid 250mg/5ml Liquid NG SCH (21:17)
--- NOTE | 2020-10-03 21:30 | NUR ---
NURSE NOTES: Dr. Cabrera at the bedside.
--- NOTE | 2020-10-03 23:01 | Cardiology Progress Note ---
Subjective DATE OF SERVICE: Oct 03, 2020 Condition remains critical; prognosis guarded. Remains on vent via trach, requiring 50-60% oxygen delivery. Increasingly congested and edematous. BP remains mostly controlled. Monitor: sinus/ sinus tachycardia. Objective Last 24 Hour Vital Signs Date Time Temp Pulse Resp B/P (MAP) Pulse Ox O2 Delivery O2 Flow Rate FiO2 10/03/20 20:00 Mechanical Ventilator Mechanical Ventilator 10/03/20 20:00 98.0 75 23 134/87 (103) 100 10/03/20 20:00 45 10/03/20 19:30 84 28 45 10/03/20 16:00 45 10/03/20 16:00 97.2 86 23 105/72 (83) 100 10/03/20 16:00 Mechanical Ventilator Mechanical Ventilator 10/03/20 16:00 73 10/03/20 15:18 69 18 45 10/03/20 12:00 Mechanical Ventilator Mechanical Ventilator 10/03/20 12:00 45 10/03/20 12:00 98.1 114 27 146/89 (108) 96 10/03/20 11:41 121 10/03/20 11:13 113 23 45 10/03/20 08:00 Mechanical Ventilator Mechanical Ventilator 10/03/20 08:00 98.1 85 30 115/69 (84) 97 10/03/20 08:00 68 10/03/20 08:00 45 10/03/20 07:26 61 18 45 10/03/20 04:00 Mechanical Ventilator Mechanical Ventilator 10/03/20 04:00 98.2 75 22 115/76 (89) 100 10/03/20 04:00 45 10/03/20 03:07 74 39 45 10/03/20 03:02 72 10/03/20 00:00 98.1 85 30 117/82 (94) 100 10/03/20 00:00 Mechanical Ventilator Mechanical Ventilator 10/02/20 23:24 72 39 45 10/02/20 23:12 76 ROS: no change from my evaluation of 09/10/20. HEENT: Mechanically Ventilated, Thin Trach secretions RHYTHM: NSR, ST LUNGS: bilat. rhonchi and rales, trach site clean CARDIAC: normal rate, regular rhythm, normal S1 and S2 ABDOMEN: normal bowel sounds, soft, other - sacral decub EXTREMITIES: +1 edema Assessment/Plan Assessment/Plan Respiratory failure with hypoxia - s/p tracheostomy Sepsis Leukocytosis Aspiration PNA Recurring shock Diarrhea Dehydration/hypernatremia corrected Acute myocardial ischemia Acute renal failure HC assoc PNA UTI Transaminitis, acute CVA/dementia Paroxysmal sinus bradycardia and tachycardia Acute diastolic CHF Severe protein/calorie malnutrition with dysphagia; now s/p PEG Remains CRITICAL & GUARDED Vent support with trach care. Antimicrobials per ID. Replace lytes as needed. DVT prophyl Cardiac monitoring Diuresis added, based on clinical parameters. Madi Rios MD Oct 03, 2020 23:00
--- NOTE | 2020-10-03 23:18 | General Progress Note ---
Subjective Allergies: Coded Allergies: VANCOMYCIN (Verified Allergy, Severe, hive, 09/28/20) Subjective NAD d/w RN tolerated TF w/o residuals TF held later due to concerns re ? TF via trach Objective Last 24 Hour Vital Signs Date Time Temp Pulse Resp B/P (MAP) Pulse Ox O2 Delivery O2 Flow Rate FiO2 10/03/20 20:00 Mechanical Ventilator Mechanical Ventilator 10/03/20 20:00 98.0 75 23 134/87 (103) 100 10/03/20 20:00 45 10/03/20 19:30 84 28 45 10/03/20 19:11 98 10/03/20 16:00 45 10/03/20 16:00 97.2 86 23 105/72 (83) 100 10/03/20 16:00 Mechanical Ventilator Mechanical Ventilator 10/03/20 16:00 73 10/03/20 15:18 69 18 45 10/03/20 12:00 Mechanical Ventilator Mechanical Ventilator 10/03/20 12:00 45 10/03/20 12:00 98.1 114 27 146/89 (108) 96 10/03/20 11:41 121 10/03/20 11:13 113 23 45 10/03/20 08:00 Mechanical Ventilator Mechanical Ventilator 10/03/20 08:00 98.1 85 30 115/69 (84) 97 10/03/20 08:00 68 10/03/20 08:00 45 10/03/20 07:26 61 18 45 10/03/20 04:00 Mechanical Ventilator Mechanical Ventilator 10/03/20 04:00 98.2 75 22 115/76 (89) 100 10/03/20 04:00 45 10/03/20 03:07 74 39 45 10/03/20 03:02 72 10/03/20 00:00 98.1 85 30 117/82 (94) 100 10/03/20 00:00 Mechanical Ventilator Mechanical Ventilator 10/02/20 23:24 72 39 45 Intake and Output 10/02/20 10/03/20 19:00 07:00 Intake Total 170 ml 375 ml Output Total 650 ml 450 ml Balance -480 ml -75 ml Free Water 120 ml 60 ml Tube Feeding 50 ml 315 ml Output Urine Total 650 ml 450 ml Height (Feet): 6 Height (Inches): 1.00 Weight (Pounds): 148 Objective Thin WM on vent/trach calm, awake Skin: no hematoma or ecchymosis HEENT NCAT supple, (+) trach coarse ronchi RR, slightly tachy abd soft flat ND, (+) GT no edema Assessment/Plan Status: stable Assessment/Plan: Assessment - Lower H&H, - no clinical source of acute blood loss - possibly due to volume shifting/ redistribution - resp failure - s/p PEG - doubt TF via trach (may have been purulent secretions) - OBS/Dementia - sepsis - diarrhea, C Diff (-) - Azotemia, resolved - CHF - malnutrition , low albumin - leukocytosis - hypernatremia Recommendations -Vent care / support - cards and pulm follow up - supportive care - abx - PPI - Restart TF and observe trach suction Deborah Cabrera MD Oct 03, 2020 23:18
--- NOTE | 2020-10-03 23:20 | NUR ---
NURSE NOTES: repositioned pt, oral care given. no active bleeding noted. O2sat is at 98%. call light within reach. will continue to monitor pt
[2020-10-04] VITALS: BP 116/76
--- NOTE | 2020-10-04 03:00 | NUR ---
NURSE NOTES: cleaned pt, oral care given. repositioned pt Q 2hrs. call light within reach.
[2020-10-04 04:00] VITALS: BP 114/72
[2020-10-04 05:32] LABS: HEMATOCRIT 28.4 % (42.0-52.0); HEMOGLOBIN 9.5 G/DL (14.2-18.0); MEAN CORPUSCULAR VOLUME 87 FL (80-99); PLATELET COUNT 267 K/UL (150-450); RED BLOOD COUNT 3.25 M/UL (4.70-6.10); RED CELL DISTRIBUTION WIDTH 14.4 % (11.6-14.8); WHITE BLOOD COUNT 10.8 K/UL (4.8-10.8)
[2020-10-04 05:40] LABS: ANION GAP 3 mmol/L (5-15); BLOOD UREA NITROGEN 15 mg/dL (7-18); CALCIUM 7.2 MG/DL (8.5-10.1); CARBON DIOXIDE 29 MMOL/L (21-32); CHLORIDE 106 MMOL/L (98-107); CREATININE 0.8 MG/DL (0.55-1.30); POTASSIUM 3.4 MMOL/L (3.5-5.1); SODIUM 138 MMOL/L (136-145)
--- NOTE | 2020-10-04 07:34 | NUR ---
NURSE HAND-OFF REPORT: Important Events on Shift:[potassium 3.4 need to follow up] Patient Status: [stable] Diet: [jevity 1.2 @ 60ml/hr] Pending Orders: [n/a] Pending Results/Labs:[n/a] Pending MD notification:[need to follow up potassium 3.4] Latest Vital Signs: Temperature 98.8 , Pulse 70 , B/P 114 /72 , Respiratory Rate 26 , O2 SAT 98 , Mechanical Ventilator, O2 Flow Rate 15.0 . Vital Sign Comment: [stable] EKG Rhythm: Sinus Rhythm Rhythm change?: N MD Notified?: N -Dr Jacklyn BENITEZ Response: No New Orders Received Latest Schultz Fall Score: 70 Fall Risk: High Risk Safety Measures: Call light Within Reach, Bed Alarm Zone 1, Side Rails Side Rails x3, Bed position Low and Locked. Fall Precautions: Yellow Socks Door Sign Patient Fall Education Report given to [Aretha Joshi RN].
--- NOTE | 2020-10-04 07:35 | NUR ---
NURSE NOTES:: Report received from Zay Harkins RN.Pt lying in bed with eyes closed appears asleep but restless,moving all over the bed, no resp distress presented,with trach tube to vent ,ordered vent settings tolerated,no signs of pain or discomfort,SR on the monitor,GTF Jevity 1.2 at 60 ml/hr,no residual noted,Rae cath draining yellow urine,no signs of pain or discomfort S-R on the monitor,skin warm and dry,IV site to RAC intact,SR up x2 HOB elevated bed lock in lowest position,will continue with plans of care.
[2020-10-04 08:00] VITALS: BP 116/69
--- NOTE | 2020-10-04 08:51 | Infectious Diseases Prog Note ---
Assessment/Plan Assessment/Plan A 1. Pneumonia with MRSA treated COVID19 test is negative. 2. Dementia. 3. Leukocytosis 4. Urinary tract infection treated 5. 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 BPH P 1. Observe off antibiotic Subjective ROS Limited/Unobtainable: Yes Constitutional: Denies: fever Neurologic: Reports: confusion, other - on restraint by mittens Allergies: Coded Allergies: VANCOMYCIN (Verified Allergy, Severe, hive, 09/28/20) Objective Last 24 Hour Vital Signs Date Time Temp Pulse Resp B/P (MAP) Pulse Ox O2 Delivery O2 Flow Rate FiO2 10/04/20 07:50 87 28 45 10/04/20 04:00 98.8 70 26 114/72 (86) 98 10/04/20 04:00 45 10/04/20 04:00 Mechanical Ventilator Mechanical Ventilator 10/04/20 03:31 101 10/04/20 03:25 105 29 45 10/04/20 00:00 98.2 74 26 116/76 (89) 100 10/04/20 00:00 Mechanical Ventilator Mechanical Ventilator 10/04/20 00:00 45 10/03/20 23:30 92 25 45 10/03/20 23:02 103 10/03/20 20:00 Mechanical Ventilator Mechanical Ventilator 10/03/20 20:00 98.0 75 23 134/87 (103) 100 10/03/20 20:00 45 10/03/20 19:30 84 28 45 10/03/20 19:11 98 10/03/20 16:00 45 10/03/20 16:00 97.2 86 23 105/72 (83) 100 10/03/20 16:00 Mechanical Ventilator Mechanical Ventilator 10/03/20 16:00 73 10/03/20 15:18 69 18 45 10/03/20 12:00 Mechanical Ventilator Mechanical Ventilator 10/03/20 12:00 45 10/03/20 12:00 98.1 114 27 146/89 (108) 96 10/03/20 11:41 121 10/03/20 11:13 113 23 45 Height (Feet): 6 Height (Inches): 1.00 Weight (Pounds): 148 HEENT: status post trach Respiratory/Chest: lungs clear, other - on ventilator Cardiovascular: normal rate Abdomen: soft, non tender, other - GT feeding Genitourinary: other - Rae catheter Extremities: no edema Neurologic/Psychiatric: aphasia, other - opens eyes Laboratory Tests Test 10/04/20 03:20 White Blood Count 10.8 K/UL (4.8-10.8) Red Blood Count 3.25 M/UL (4.70-6.10) L Hemoglobin 9.5 G/DL (14.2-18.0) L Hematocrit 28.4 % (42.0-52.0) L Mean Corpuscular Volume 87 FL (80-99) Mean Corpuscular Hemoglobin 29.3 PG (27.0-31.0) Mean Corpuscular Hemoglobin Concent 33.6 G/DL (32.0-36.0) Red Cell Distribution Width 14.4 % (11.6-14.8) Platelet Count 267 K/UL (150-450) Mean Platelet Volume 6.0 FL (6.5-10.1) L Neutrophils (%) (Auto) % (45.0-75.0) Lymphocytes (%) (Auto) % (20.0-45.0) Monocytes (%) (Auto) % (1.0-10.0) Eosinophils (%) (Auto) % (0.0-3.0) Basophils (%) (Auto) % (0.0-2.0) Sodium Level 138 MMOL/L (136-145) Potassium Level 3.4 MMOL/L (3.5-5.1) L Chloride Level 106 MMOL/L (98-107) Carbon Dioxide Level 29 MMOL/L (21-32) Anion Gap 3 mmol/L (5-15) L Blood Urea Nitrogen 15 mg/dL (7-18) Creatinine 0.8 MG/DL (0.55-1.30) Estimat Glomerular Filtration Rate > 60 mL/min (>60) Glucose Level 118 MG/DL (74-106) H Calcium Level 7.2 MG/DL (8.5-10.1) L Magnesium Level 2.0 MG/DL (1.8-2.4) Pro-B-Type Natriuretic Peptide Pending Current Medications Medications (Trade) Dose Ordered Sig/Aleksander Route PRN Reason Start Time Stop Time Status Last Admin Dose Admin Acetaminophen (Tylenol) 650 mg Q4H PRN NG Temp >100.5 09/10/20 23:15 10/10/20 23:14 10/01/20 20:09 Al Hydroxide/Mg Hydroxide (Mylanta) 30 ml Q4H PRN NG Constipation 09/11/20 00:15 10/10/20 23:14 Ascorbic Acid (Vitamin C) 250 mg DAILY NG 09/26/20 09:00 10/18/20 08:59 10/03/20 09:45 Diphenhydramine HCl (Benadryl) 25 mg Q6H PRN IVP Itching 09/27/20 12:15 10/27/20 12:14 10/01/20 10:45 Diphenoxylate HCl/ Atropine (Lomotil) 2.5 mg Q4H PRN ORAL Diarrhea 09/20/20 08:15 10/20/20 08:14 Famotidine (Pepcid) 20 mg BID GT 10/04/20 09:00 01/02/21 08:59 Finasteride (Proscar) 5 mg DAILY ORAL 09/13/20 09:00 12/12/20 08:59 10/03/20 09:44 Furosemide (Lasix) 40 mg DAILY IV 10/03/20 09:00 11/02/20 08:59 10/03/20 09:44 Multivitamins (Multivitamins W/ Minerals 15ml Liquid) 15 ml DAILY NG 09/26/20 09:00 10/26/20 08:59 10/03/20 09:44 Ondansetron HCl (Zofran) 4 mg Q6H PRN IVP Nausea & Vomiting 09/10/20 23:15 10/10/20 23:14 Tamsulosin HCl (Flomax) 0.4 mg BEDTIME ORAL 09/12/20 21:00 10/12/20 20:59 10/03/20 21:17 Valproic Acid (Depakene) 1,000 mg BEDTIME NG 09/16/20 21:00 10/31/20 20:59 10/03/20 21:17 Zinc Sulfate (Zinc Sulfate) 220 mg DAILY NG 09/26/20 09:00 10/06/20 08:59 10/03/20 09:45 Bradley Gil MD Oct 04, 2020 08:51
--- NOTE | 2020-10-04 09:00 | NUR ---
NURSE NOTES: Pt very restless,lower legs dangling outside the rails,pulled up and repositioned ,SR up x3.
--- NOTE | 2020-10-04 09:01 | Urology Progress Note ---
Assessment/Plan Status: stable Assessment/Plan: 1. Gross hematuria. 2. Pyuria and possible UTI. 3. Proteinuria. 4. BPH. 5. Urinary retention. 6. Probable neurogenic bladder. 7. Possible sepsis. monitor clinically maintain andrade, secured to pt's leg hand irrigated and do PRN s/p abx flomax and proscar cysto electively voiding trial at some point? Subjective Allergies: Coded Allergies: VANCOMYCIN (Verified Allergy, Severe, hive, 09/28/20) Subjective remains on vent, trach 09/27 Objective Last 24 Hour Vital Signs Date Time Temp Pulse Resp B/P (MAP) Pulse Ox O2 Delivery O2 Flow Rate FiO2 10/04/20 07:50 87 28 45 10/04/20 04:00 98.8 70 26 114/72 (86) 98 10/04/20 04:00 45 10/04/20 04:00 Mechanical Ventilator Mechanical Ventilator 10/04/20 03:31 101 10/04/20 03:25 105 29 45 10/04/20 00:00 98.2 74 26 116/76 (89) 100 10/04/20 00:00 Mechanical Ventilator Mechanical Ventilator 10/04/20 00:00 45 10/03/20 23:30 92 25 45 10/03/20 23:02 103 10/03/20 20:00 Mechanical Ventilator Mechanical Ventilator 10/03/20 20:00 98.0 75 23 134/87 (103) 100 10/03/20 20:00 45 10/03/20 19:30 84 28 45 10/03/20 19:11 98 10/03/20 16:00 45 10/03/20 16:00 97.2 86 23 105/72 (83) 100 10/03/20 16:00 Mechanical Ventilator Mechanical Ventilator 10/03/20 16:00 73 10/03/20 15:18 69 18 45 10/03/20 12:00 Mechanical Ventilator Mechanical Ventilator 10/03/20 12:00 45 10/03/20 12:00 98.1 114 27 146/89 (108) 96 10/03/20 11:41 121 10/03/20 11:13 113 23 45 Intake and Output 10/03/20 10/04/20 19:00 07:00 Intake Total 920 ml 660 ml Output Total 300 ml 700 ml Balance 620 ml -40 ml Free Water 200 ml 60 ml Tube Feeding 720 ml 600 ml Output Urine Total 300 ml 700 ml # Bowel Movements 1 1 Microbiology Date/Time Source Procedure Growth Status 09/24/20 10:50 Nasopharynx SARS-CoV-2 RdRp Gene Assay - Final Complete 09/18/20 18:30 Stool Clostridium difficile Toxin Assay - Final Complete 09/17/20 12:58 Blood Blood Culture - Final NO GROWTH AFTER 5 DAYS Complete 09/10/20 20:05 Urine,Clean Catch Urine Culture - Final NO GROWTH AFTER 48 HOURS Complete 09/10/20 17:15 Rectum VRE Culture - Final Enterococcus Faecalis - Vre Complete Current Medications Medications (Trade) Dose Ordered Sig/Aleksander Route PRN Reason Start Time Stop Time Status Last Admin Dose Admin Acetaminophen (Tylenol) 650 mg Q4H PRN NG Temp >100.5 09/10/20 23:15 10/10/20 23:14 10/01/20 20:09 Al Hydroxide/Mg Hydroxide (Mylanta) 30 ml Q4H PRN NG Constipation 09/11/20 00:15 10/10/20 23:14 Ascorbic Acid (Vitamin C) 250 mg DAILY NG 09/26/20 09:00 10/18/20 08:59 10/03/20 09:45 Diphenhydramine HCl (Benadryl) 25 mg Q6H PRN IVP Itching 09/27/20 12:15 10/27/20 12:14 10/01/20 10:45 Diphenoxylate HCl/ Atropine (Lomotil) 2.5 mg Q4H PRN ORAL Diarrhea 09/20/20 08:15 10/20/20 08:14 Famotidine (Pepcid) 20 mg BID GT 10/04/20 09:00 01/02/21 08:59 Finasteride (Proscar) 5 mg DAILY ORAL 09/13/20 09:00 12/12/20 08:59 10/03/20 09:44 Furosemide (Lasix) 40 mg DAILY IV 10/03/20 09:00 11/02/20 08:59 10/03/20 09:44 Multivitamins (Multivitamins W/ Minerals 15ml Liquid) 15 ml DAILY NG 09/26/20 09:00 10/26/20 08:59 10/03/20 09:44 Ondansetron HCl (Zofran) 4 mg Q6H PRN IVP Nausea & Vomiting 09/10/20 23:15 10/10/20 23:14 Tamsulosin HCl (Flomax) 0.4 mg BEDTIME ORAL 09/12/20 21:00 10/12/20 20:59 10/03/20 21:17 Valproic Acid (Depakene) 1,000 mg BEDTIME NG 09/16/20 21:00 10/31/20 20:59 10/03/20 21:17 Zinc Sulfate (Zinc Sulfate) 220 mg DAILY NG 09/26/20 09:00 10/06/20 08:59 10/03/20 09:45 Laboratory Tests 10/04/20 03:20: White Blood Count 10.8, Red Blood Count 3.25L, Hemoglobin 9.5L, Hematocrit 28.4L , Mean Corpuscular Volume 87, Mean Corpuscular Hemoglobin 29.3, Mean Corpuscular Hemoglobin Concent 33.6, Red Cell Distribution Width 14.4, Platelet Count 267, Mean Platelet Volume 6.0L, Neutrophils (%) (Auto) , Lymphocytes (%) (Auto) , Monocytes (%) (Auto) , Eosinophils (%) (Auto) , Basophils (%) (Auto) , Sodium Level 138, Potassium Level 3.4L, Chloride Level 106, Carbon Dioxide Level 29, Anion Gap 3L, Blood Urea Nitrogen 15, Creatinine 0.8, Estimat Glomerular Filtration Rate > 60, Glucose Level 118H, Calcium Level 7.2L, Magnesium Level 2.0, Pro-B-Type Natriuretic Peptide [Pending] Height (Feet): 6 Height (Inches): 1.00 Weight (Pounds): 148 Objective exam stable urine clearing Levi Brunson MD Oct 04, 2020 09:01
[2020-10-04] MEDS: Multivitamins W/Minerals 15 ML UDC NG SCH (09:17)
[2020-10-04] MEDS: Ascorbic Acid 500mg tab NG SCH (09:17)
[2020-10-04] MEDS: Zinc Sulfate 220mg NG SCH (09:17)
--- NOTE | 2020-10-04 09:24 | General Progress Note ---
Subjective ROS Limited/Unobtainable: No Constitutional: Reports: malaise, weakness HEENT: Reports: no symptoms Cardiovascular: Reports: no symptoms Respiratory: Reports: cough Gastrointestinal/Abdominal: Reports: difficulty swallowing Genitourinary: Reports: no symptoms Neurologic/Psychiatric: Reports: pre-existing deficit Endocrine: Reports: no symptoms Hematologic/Lymphatic: Reports: anemia Allergies: Coded Allergies: VANCOMYCIN (Verified Allergy, Severe, hive, 09/28/20) All Systems: reviewed and negative except above Subjective no events. o2 sats improving. alert but confused. no fevers. labs reviewed. low k. Objective Last 24 Hour Vital Signs Date Time Temp Pulse Resp B/P (MAP) Pulse Ox O2 Delivery O2 Flow Rate FiO2 10/04/20 09:10 86 30 45 10/04/20 08:00 98.2 86 17 116/69 (85) 100 10/04/20 07:50 87 28 45 10/04/20 04:00 98.8 70 26 114/72 (86) 98 10/04/20 04:00 45 10/04/20 04:00 Mechanical Ventilator Mechanical Ventilator 10/04/20 03:31 101 10/04/20 03:25 105 29 45 10/04/20 00:00 98.2 74 26 116/76 (89) 100 10/04/20 00:00 Mechanical Ventilator Mechanical Ventilator 10/04/20 00:00 45 10/03/20 23:30 92 25 45 10/03/20 23:02 103 10/03/20 20:00 Mechanical Ventilator Mechanical Ventilator 10/03/20 20:00 98.0 75 23 134/87 (103) 100 10/03/20 20:00 45 10/03/20 19:30 84 28 45 10/03/20 19:11 98 10/03/20 16:00 45 10/03/20 16:00 97.2 86 23 105/72 (83) 100 10/03/20 16:00 Mechanical Ventilator Mechanical Ventilator 10/03/20 16:00 73 10/03/20 15:18 69 18 45 10/03/20 12:00 Mechanical Ventilator Mechanical Ventilator 10/03/20 12:00 45 10/03/20 12:00 98.1 114 27 146/89 (108) 96 10/03/20 11:41 121 10/03/20 11:13 113 23 45 Intake and Output 10/03/20 10/04/20 19:00 07:00 Intake Total 920 ml 660 ml Output Total 300 ml 700 ml Balance 620 ml -40 ml Free Water 200 ml 60 ml Tube Feeding 720 ml 600 ml Output Urine Total 300 ml 700 ml # Bowel Movements 1 1 Laboratory Tests 10/04/20 03:20: White Blood Count 10.8, Red Blood Count 3.25L, Hemoglobin 9.5L, Hematocrit 28.4L , Mean Corpuscular Volume 87, Mean Corpuscular Hemoglobin 29.3, Mean Corpuscular Hemoglobin Concent 33.6, Red Cell Distribution Width 14.4, Platelet Count 267, Mean Platelet Volume 6.0L, Neutrophils (%) (Auto) , Lymphocytes (%) (Auto) , Monocytes (%) (Auto) , Eosinophils (%) (Auto) , Basophils (%) (Auto) , Sodium Level 138, Potassium Level 3.4L, Chloride Level 106, Carbon Dioxide Level 29, Anion Gap 3L, Blood Urea Nitrogen 15, Creatinine 0.8, Estimat Glomerular Filtration Rate > 60, Glucose Level 118H, Calcium Level 7.2L, Magnesium Level 2.0, Pro-B-Type Natriuretic Peptide [Pending] Height (Feet): 6 Height (Inches): 1.00 Weight (Pounds): 148 Objective General Appearance: WD/WN, confused. EENT: normal ENT inspection. +trach, dressing clean Neck: normal alignment, supple Cardiovascular: normal rate, regular rhythm Respiratory/Chest: rhonchi - bilaterally. diminished BS Abdomen: normal bowel sounds, non tender, soft, no organomegaly Edema: no edema noted Leg (L), no edema noted Leg (R) Neurologic: bilingual interpreter II-XII grossly normal, responsive, disoriented Lymphatic: normal anterior cervical (L), normal anterior cervical (R), normal posterior cervical (L), normal posterior cervical (R) Assessment/Plan Problem List: (1) PNA (pneumonia) ICD Codes: J18.9 - Pneumonia, unspecified organism SNOMED: 545137219 (2) UTI (urinary tract infection) ICD Codes: N39.0 - Urinary tract infection, site not specified SNOMED: 67387664 (3) Fever ICD Codes: R50.9 - Fever, unspecified SNOMED: 684850133 Qualifiers: Qualified Codes: R50.9 - Fever, unspecified (4) Decubitus skin ulcer ICD Codes: L89.90 - Pressure ulcer of unspecified site, unspecified stage SNOMED: 192062109 (5) Malnutrition ICD Codes: E46 - Unspecified protein-calorie malnutrition SNOMED: 57937238 (6) Severe sepsis ICD Codes: A41.9 - Sepsis, unspecified organism; R65.20 - Severe sepsis without septic shock SNOMED: 51156969 (7) Hematuria ICD Codes: R31.9 - Hematuria, unspecified SNOMED: 37492419 Status: stable Assessment/Plan: monitor off abx resp rx and suctioning trach care titrate fio2 monitor abg skin care tube feeds- tolerating monitor labs- replace k poor prognosis dc planning Jason Layne MD Oct 04, 2020 09:24
[2020-10-04 12:00] VITALS: BP 122/76
--- NOTE | 2020-10-04 13:48 | General Progress Note ---
Subjective ROS Limited/Unobtainable: Yes Allergies: Coded Allergies: VANCOMYCIN (Verified Allergy, Severe, hive, 09/28/20) Subjective on vent contracted trach placed oxygenation noted in ASTER anemic Objective Last 24 Hour Vital Signs Date Time Temp Pulse Resp B/P (MAP) Pulse Ox O2 Delivery O2 Flow Rate FiO2 10/04/20 12:00 Mechanical Ventilator 15.0 Mechanical Ventilator 15.0 10/04/20 12:00 45 10/04/20 12:00 98.2 61 17 122/76 (91) 100 10/04/20 11:23 87 30 45 10/04/20 09:10 86 30 45 10/04/20 08:00 45 10/04/20 08:00 Mechanical Ventilator 15.0 Mechanical Ventilator 15.0 10/04/20 08:00 98.2 86 17 116/69 (85) 100 10/04/20 08:00 84 10/04/20 07:50 87 28 45 10/04/20 04:00 98.8 70 26 114/72 (86) 98 10/04/20 04:00 45 10/04/20 04:00 Mechanical Ventilator Mechanical Ventilator 10/04/20 03:31 101 10/04/20 03:25 105 29 45 10/04/20 00:00 98.2 74 26 116/76 (89) 100 10/04/20 00:00 Mechanical Ventilator Mechanical Ventilator 10/04/20 00:00 45 10/03/20 23:30 92 25 45 10/03/20 23:02 103 10/03/20 20:00 Mechanical Ventilator Mechanical Ventilator 10/03/20 20:00 98.0 75 23 134/87 (103) 100 10/03/20 20:00 45 10/03/20 19:30 84 28 45 10/03/20 19:11 98 10/03/20 16:00 45 10/03/20 16:00 97.2 86 23 105/72 (83) 100 10/03/20 16:00 Mechanical Ventilator Mechanical Ventilator 10/03/20 16:00 73 10/03/20 15:18 69 18 45 Intake and Output 10/03/20 10/04/20 19:00 07:00 Intake Total 920 ml 660 ml Output Total 300 ml 700 ml Balance 620 ml -40 ml Free Water 200 ml 60 ml Tube Feeding 720 ml 600 ml Output Urine Total 300 ml 700 ml # Bowel Movements 1 1 Laboratory Tests 10/04/20 03:20: White Blood Count 10.8, Red Blood Count 3.25L, Hemoglobin 9.5L, Hematocrit 28.4L , Mean Corpuscular Volume 87, Mean Corpuscular Hemoglobin 29.3, Mean Corpuscular Hemoglobin Concent 33.6, Red Cell Distribution Width 14.4, Platelet Count 267, Mean Platelet Volume 6.0L, Neutrophils (%) (Auto) , Lymphocytes (%) (Auto) , Monocytes (%) (Auto) , Eosinophils (%) (Auto) , Basophils (%) (Auto) , Sodium Level 138, Potassium Level 3.4L, Chloride Level 106, Carbon Dioxide Level 29, Anion Gap 3L, Blood Urea Nitrogen 15, Creatinine 0.8, Estimat Glomerular Filtration Rate > 60, Glucose Level 118H, Calcium Level 7.2L, Magnesium Level 2.0, Pro-B-Type Natriuretic Peptide [Pending] Height (Feet): 6 Height (Inches): 1.00 Weight (Pounds): 148 Objective WDWN chronically ill trach in place feeding tube in place reduced breath sounds bilaterally with scattered rhonchi [id number] without MRG NABS nontender no CCE nonfocal poor LOC Assessment/Plan Status: stable Assessment/Plan: IMPRESSION: 1. Acute renal failure. 2. Hypernatremia. 3. Leukocytosis. 4. Possible sepsis. 5. Hypotension. 6. Dementia. 7. Acute on chronic encephalopathy. 8. bcx staph Epi 9. MRSA colonized 10. acute hypoxemic respiratory failure 11. atelectasis/collapse 12. leukocytosis 13. trach PLAN follow up HH taper fio2 as able ID noted; monitor follow up on antibiotics monitor oxygen needs vent support full for now off load as able monitor lytes position change monitor imaging d/w consultants and nursing remains critical trach care dc plan to subacute if accepted impression, plan, and exam edited and reviewed in detail care discussed with Patel Tesfaye MD Oct 04, 2020 13:48
--- NOTE | 2020-10-04 14:57 | Surgery Progress Note ---
Surgery Progress Note Subjective Procedure Performed tracheostomy Symptoms: tolerating diet, passing flatus, BM Objective Last 24 Hour Vital Signs Date Time Temp Pulse Resp B/P (MAP) Pulse Ox O2 Delivery O2 Flow Rate FiO2 10/04/20 13:20 81 21 45 10/04/20 12:00 Mechanical Ventilator 15.0 Mechanical Ventilator 15.0 10/04/20 12:00 66 10/04/20 12:00 45 10/04/20 12:00 98.2 61 17 122/76 (91) 100 10/04/20 11:23 87 30 45 10/04/20 09:10 86 30 45 10/04/20 08:00 45 10/04/20 08:00 Mechanical Ventilator 15.0 Mechanical Ventilator 15.0 10/04/20 08:00 98.2 86 17 116/69 (85) 100 10/04/20 08:00 84 10/04/20 07:50 87 28 45 10/04/20 04:00 98.8 70 26 114/72 (86) 98 10/04/20 04:00 45 10/04/20 04:00 Mechanical Ventilator Mechanical Ventilator 10/04/20 03:31 101 10/04/20 03:25 105 29 45 10/04/20 00:00 98.2 74 26 116/76 (89) 100 10/04/20 00:00 Mechanical Ventilator Mechanical Ventilator 10/04/20 00:00 45 10/03/20 23:30 92 25 45 10/03/20 23:02 103 10/03/20 20:00 Mechanical Ventilator Mechanical Ventilator 10/03/20 20:00 98.0 75 23 134/87 (103) 100 10/03/20 20:00 45 10/03/20 19:30 84 28 45 10/03/20 19:11 98 10/03/20 16:00 45 10/03/20 16:00 97.2 86 23 105/72 (83) 100 10/03/20 16:00 Mechanical Ventilator Mechanical Ventilator 10/03/20 16:00 73 10/03/20 15:18 69 18 45 I&O Intake and Output 10/03/20 10/04/20 19:00 07:00 Intake Total 920 ml 660 ml Output Total 300 ml 700 ml Balance 620 ml -40 ml Free Water 200 ml 60 ml Tube Feeding 720 ml 600 ml Output Urine Total 300 ml 700 ml # Bowel Movements 1 1 Dressing: saturated Cardiovascular: RSR Respiratory: decreased breath sounds Abdomen: non-tender, present bowel sounds Extremities: no tenderness, no cyanosis Laboratory Tests Test 10/04/20 03:20 White Blood Count 10.8 K/UL (4.8-10.8) Red Blood Count 3.25 M/UL (4.70-6.10) L Hemoglobin 9.5 G/DL (14.2-18.0) L Hematocrit 28.4 % (42.0-52.0) L Mean Corpuscular Volume 87 FL (80-99) Mean Corpuscular Hemoglobin 29.3 PG (27.0-31.0) Mean Corpuscular Hemoglobin Concent 33.6 G/DL (32.0-36.0) Red Cell Distribution Width 14.4 % (11.6-14.8) Platelet Count 267 K/UL (150-450) Mean Platelet Volume 6.0 FL (6.5-10.1) L Neutrophils (%) (Auto) % (45.0-75.0) Lymphocytes (%) (Auto) % (20.0-45.0) Monocytes (%) (Auto) % (1.0-10.0) Eosinophils (%) (Auto) % (0.0-3.0) Basophils (%) (Auto) % (0.0-2.0) Sodium Level 138 MMOL/L (136-145) Potassium Level 3.4 MMOL/L (3.5-5.1) L Chloride Level 106 MMOL/L (98-107) Carbon Dioxide Level 29 MMOL/L (21-32) Anion Gap 3 mmol/L (5-15) L Blood Urea Nitrogen 15 mg/dL (7-18) Creatinine 0.8 MG/DL (0.55-1.30) Estimat Glomerular Filtration Rate > 60 mL/min (>60) Glucose Level 118 MG/DL (74-106) H Calcium Level 7.2 MG/DL (8.5-10.1) L Magnesium Level 2.0 MG/DL (1.8-2.4) Pro-B-Type Natriuretic Peptide Pending Plan Problems: (1) Fever Assessment & Plan: maybe developing pneumonia cont abx pulm input thank you (2) Decubitus skin ulcer Assessment & Plan: Patient identified on admission to have multiple scabs on the left arm. mild open scabs with eschar. no drainage. no significant cellulitis. bruising no bilateral extremities noted. no signs of abuse. likely from agitation Sacral coccygeal noted to have a DTI 4.3X2.5CM. which is dark purple . RECOMMEND-CLEAN WITH SALINE, PAT DRY AND APPLY CALAZINE. COVER WITH OPTIFOAM DRESSING. REPLACE EVERY 3 DAYS OR NEEDED LEFT ISCHIUM- STAGE I PRESSURE ULCER MEASURES 4.5X1.7CM. NON-BLANCHABLE ERYTHEMA. RECOMMEND- APPLY CALAZINE AND COVER WITH OPTIFOAM DRESSING. REPLACE EVERY 7 DAYS. Turn q2h off load pressure with pillow off load heels nutritional optimization ALL ROUND LOGGER eval will follow with recs thank you (3) Malnutrition Assessment & Plan: Mr. Roman is a 70 year old male [place] [facility] [place] around 14:00 due to fever. He was found to be hypotensive 91/55 (67), Temp: 100.0, leukocytosis 20.8k and subsequently transferred to ICU for septic shock. The blood culture is reportedly positive for gram positive cocci. NG tube was placed, KUB confirmed the placement to day. Pt is clinically stable with leukocytosis 20.1, improved BUN and creatine, stable hemodynamic without vasopressor. Findings: Mr. Roman is disoriented. He does ot follow commands at this time. Oral cavity is noted to be dried blood concretion likely from NG trauma. No active bleeding site is seen. Due to his level f alertness, already NG tube is in placed, PO trial was not done at this time. Transferred out ICU last night. He is non on tele. Issues: multiple wounds, s.p balaji/nasal/pharyngeal bleeding with blood culture Gram positive cocci leukocytosis trending down from 20k-20k-16k BUN/Creatine trending down from 93/1.9-79/1.3-54/1.1 Temp: 98.1~98.7, Pulse: 62~72, BP: 105/67~120/48, SPO2 98~100% on 2 liter S: Oral cavity is better condition comparison to yesterday. The mucosa is severely erythema without active bleeding. Limited level of alertness for direct therapy. NG in placed O: 1. Laryngeal palpation to trigger spontaneous cough and swallow: Pt triggered cough with laryngeal palpation. Approximately 5~10 seconds after coughing, he triggered swallow. based on this observation, he presents with copious secretion in pharynx and larynx. He continued to have poor secretion management at laryngeal level at this time. NO PO trial was given due to poor secretion at the level of air way with low level of alertness. A: 1. Probable aspiration of his own secretion with poor ability to cough and swallow 2. Dysphagia P: 1. NPO for now 2. Observe his secretion, and level of alertness for PO readiness. DAILY ESTIMATED NEEDS: Needs based on Wound, underweight/ 55kg 30-35 kcals/kg 5639-6852 total kcals 1.25-2 g protein/kg 69-110 g total protein 25-30 mL/kg 3280-4740 total fluid mLs NUTRITION DIAGNOSIS: Increased kcal/prot needs R/T wound healing and underweight status as evidenced by pt admitted w/ wounds including DTI 2 coccyx and stage 1 @ lt ischium, pt @ 73% IBW w/ low BMI per guidelines, s/p NGT insertion, on NGT feeds. CURRENT TF:Jevity 1.2 @ 50ml/hr x 24 hrs ENTERAL NUTRITION RECOMMENDATIONS: Jevity 1.2 @ 60ml/hr x 24 hrs to provide 1440ml, 1728kcal, 80g prot, 1160ml free water * As medically appropriate, increase goal rate to 60ml/hr x 24 hrs to meet 100% est kcal/prot needs * HOB over 30 degrees/ without IVF, H2O flush of 100ml q 8hrs ADDITIONAL RECOMMENDATIONS: * Calibrated daily bedscale wt Per SNF: HT=70" * Wound healing: TF rec @ goal will provide 100% RDI add Vit C 250mg QD, ZnSO4 220mg QD x 10days, Davidson BID via NGT * Monitor BGs, need for NISS w/ TF * Monitor lytes, replete as needed- high risk for refeeding syndrome -> check f/up phos and mag (4) Severe sepsis Assessment & Plan: will likely need trach and peg. patient needs protected airway and nutrition full code no family and unable to consent medically necessary. will plan soon (5) Open upper arm wound (6) Hematuria Assessment & Plan: as per urology Aubrey Gutierrez Oct 04, 2020 14:57
[2020-10-04 16:00] VITALS: BP 110/69
--- NOTE | 2020-10-04 18:00 | NUR ---
NURSE NOTES: Pt awake, remains restless no resp distress presented,stable.
--- NOTE | 2020-10-04 19:00 | NUR ---
NURSE HAND-OFF REPORT: Important Events on Shift:N/A Patient Status: stable Diet: Jevity 1.2 at 60 ml/hr GT Pending Orders: N/A Pending Results/Labs:N/A Pending MD notification:N/A Latest Vital Signs: Temperature 97.2 , Pulse 79 , B/P 110 /69 , Respiratory Rate 31 , O2 SAT 97 , Mechanical Ventilator, O2 Flow Rate 15.0 . Vital Sign Comment: stable EKG Rhythm: Sinus Rhythm Rhythm change?: N Notified?: N -Dr Jacklyn BENITEZ Response: No New Orders Received Latest Schultz Fall Score: 70 Fall Risk: High Risk Safety Measures: Call light Within Reach, Bed Alarm Zone 1, Side Rails Side Rails x3, Bed position Low and Locked. Fall Precautions: Yellow Socks Door Sign Patient Fall Education Report given to Zay Harkins RN..
--- NOTE | 2020-10-04 19:05 | NUR ---
NURSE NOTES: received pt from Aretha ULLOA., pt is awake and opens eyes without tracking. AOx 0 at this time. Gtube site noted,intact, clean, and patent. Jevity 1.2 is running at 60ml/hr, no residual noted. no active bleeding noted at this time. no SOB noted,. trach to vent Shiely 8 AC 12 TV 450 Fio2 45% P7. andrade cath noted, intact, and draining well with gravity, no bleeding noted. skin alternations noted, dressing sites are dry, clean, and intact. right right AC 20G IV site intact, clean, and patent. seizure precaution applied, side rails are padded. call light within reach. will continue to monitor pt. bed at the lowest position, alarmed, and locked.
[2020-10-04 20:00] VITALS: BP 123/72
[2020-10-04] MEDS: Tamsulosin 0.4mg cap ORAL SCH (20:45)
[2020-10-04] MEDS: Valproic Acid 250mg/5ml Liquid NG SCH (20:46)
--- NOTE | 2020-10-04 22:45 | Cardiology Progress Note ---
Subjective DATE OF SERVICE: Oct 04, 2020 Condition remains critical; prognosis guarded. Remains on vent via trach, requiring 40-50% oxygen delivery. Remains congested and edematous. BP remains mostly controlled. Monitor: sinus/ sinus tachycardia. Objective Last 24 Hour Vital Signs Date Time Temp Pulse Resp B/P (MAP) Pulse Ox O2 Delivery O2 Flow Rate FiO2 10/04/20 21:30 78 30 45 10/04/20 20:00 99.0 70 18 123/72 (89) 97 10/04/20 20:00 Mechanical Ventilator 15.0 Mechanical Ventilator 15.0 10/04/20 20:00 45 10/04/20 19:26 79 31 45 10/04/20 16:45 71 23 45 10/04/20 16:00 97.2 61 18 110/69 (83) 97 10/04/20 16:00 Mechanical Ventilator 15.0 Mechanical Ventilator 15.0 10/04/20 16:00 45 10/04/20 16:00 73 10/04/20 15:34 84 27 45 10/04/20 13:20 81 21 45 10/04/20 12:00 Mechanical Ventilator 15.0 Mechanical Ventilator 15.0 10/04/20 12:00 66 10/04/20 12:00 45 10/04/20 12:00 98.2 61 17 122/76 (91) 100 10/04/20 11:23 87 30 45 10/04/20 09:10 86 30 45 10/04/20 08:00 45 10/04/20 08:00 Mechanical Ventilator 15.0 Mechanical Ventilator 15.0 10/04/20 08:00 98.2 86 17 116/69 (85) 100 10/04/20 08:00 84 10/04/20 07:50 87 28 45 10/04/20 04:00 98.8 70 26 114/72 (86) 98 10/04/20 04:00 45 10/04/20 04:00 Mechanical Ventilator Mechanical Ventilator 10/04/20 03:31 101 10/04/20 03:25 105 29 45 10/04/20 00:00 98.2 74 26 116/76 (89) 100 10/04/20 00:00 Mechanical Ventilator Mechanical Ventilator 10/04/20 00:00 45 10/03/20 23:30 92 25 45 10/03/20 23:02 103 ROS: no change from my evaluation of 09/10/20. HEENT: Mechanically Ventilated, Thin Trach secretions RHYTHM: NSR, ST LUNGS: bilat. rhonchi and rales, trach site clean CARDIAC: normal rate, regular rhythm, normal S1 and S2 ABDOMEN: normal bowel sounds, soft, other - sacral decub EXTREMITIES: +1 edema Laboratory Tests Test 10/04/20 03:20 White Blood Count 10.8 K/UL (4.8-10.8) Red Blood Count 3.25 M/UL (4.70-6.10) L Hemoglobin 9.5 G/DL (14.2-18.0) L Hematocrit 28.4 % (42.0-52.0) L Mean Corpuscular Volume 87 FL (80-99) Mean Corpuscular Hemoglobin 29.3 PG (27.0-31.0) Mean Corpuscular Hemoglobin Concent 33.6 G/DL (32.0-36.0) Red Cell Distribution Width 14.4 % (11.6-14.8) Platelet Count 267 K/UL (150-450) Mean Platelet Volume 6.0 FL (6.5-10.1) L Neutrophils (%) (Auto) % (45.0-75.0) Lymphocytes (%) (Auto) % (20.0-45.0) Monocytes (%) (Auto) % (1.0-10.0) Eosinophils (%) (Auto) % (0.0-3.0) Basophils (%) (Auto) % (0.0-2.0) Sodium Level 138 MMOL/L (136-145) Potassium Level 3.4 MMOL/L (3.5-5.1) L Chloride Level 106 MMOL/L (98-107) Carbon Dioxide Level 29 MMOL/L (21-32) Anion Gap 3 mmol/L (5-15) L Blood Urea Nitrogen 15 mg/dL (7-18) Creatinine 0.8 MG/DL (0.55-1.30) Estimat Glomerular Filtration Rate > 60 mL/min (>60) Glucose Level 118 MG/DL (74-106) H Calcium Level 7.2 MG/DL (8.5-10.1) L Magnesium Level 2.0 MG/DL (1.8-2.4) Pro-B-Type Natriuretic Peptide Pending Assessment/Plan Assessment/Plan Respiratory failure with hypoxia - s/p tracheostomy Sepsis Leukocytosis Aspiration PNA Recurring shock Diarrhea Dehydration/hypernatremia corrected Acute myocardial ischemia Acute renal failure HC assoc PNA UTI Transaminitis, acute CVA/dementia Paroxysmal sinus bradycardia and tachycardia Acute diastolic CHF Severe protein/calorie malnutrition with dysphagia; now s/p PEG Hypokalemia Remains CRITICAL & GUARDED Vent support with trach care. Antimicrobials per ID. Replace lytes as needed. DVT prophyl Cardiac monitoring Diuresis based on clinical parameters; aldactone added to spare potassium loss. Madi Rios MD Oct 04, 2020 22:45
[2020-10-05] VITALS: BP 112/60
--- NOTE | 2020-10-05 | NUR ---
NURSE NOTES: repositioned pt Q 2hrs, Oral care given, pt cleaned, no BM noted. will continue to monitor pt. call light within reach. no SOB noted.
[2020-10-05 04:00] VITALS: BP 105/65
--- NOTE | 2020-10-05 04:00 | NUR ---
NURSE NOTES: oral care given, repositioned Q 2hrs. call light within reach. O2sat is at 100.
--- NOTE | 2020-10-05 07:20 | NUR ---
NURSE NOTES:Handoff received from ARTEMIO Miller. patient received awake and alert but non-verbal due to trach to vent with following settings: Shiley 8, AC12, TV450, FI02 45% and PEEP 7 tolerating well with 02 sat of 100%, no acute signs of distress noted, property accountant is on showing HR of 74 SR. Rae is patent and draining to gravity. patient is placed on seizure precautions with side rails padded, aspiration and fall precautions with bed in the low and locked position and call light on the bed, next to the patient. patient has R AC 20G IV clean dry and intact, saline locked. patient has mittens on as he pulls devices. Sacral skin issues noted, dressing is clean dry and intact. Will follow plan of care.
--- NOTE | 2020-10-05 07:30 | NUR ---
NURSE HAND-OFF REPORT: Important Events on Shift:[stable] Patient Status: [stable] Diet: [jevity 1.2 @ 60ml/hr] Pending Orders: [n/a] Pending Results/Labs:[none] Pending MD notification:[n/a] Latest Vital Signs: Temperature 98.5 , Pulse 73 , B/P 105 /65 , Respiratory Rate 18 , O2 SAT 100 , Mechanical Ventilator, O2 Flow Rate 45.0 . Vital Sign Comment: [stable] EKG Rhythm: Sinus Rhythm Rhythm change?: N MD Notified?: N MD Response: Latest Schultz Fall Score: 70 Fall Risk: High Risk Safety Measures: Call light Within Reach, Bed Alarm Zone 1, Side Rails Side Rails x3, Bed position Low and Locked. Fall Precautions: Yellow Socks Door Sign Patient Fall Education Report given to [Joby ULLOA].
--- NOTE | 2020-10-05 07:30 | NUR ---
NURSE NOTES:Handoff received from ARTEMIO Miller. Patient received resting in bed, eyes open but patient does not follow commands. Patient is on trach to vent with the following settings:Portex 7 AC16, TV400, FI02 50% and peep of 5 tolerating well with 02 sat of 100% no signs of acute distress noted, patient is resting calmly in bed. Patient is on contact, airborne and droplet precautions for PUI covid as well as histroy of VRE and ESBL. Patient has purewick external catheter in place, currently NPO per Dr Serna. Dr Escoto ordered 1 unit PRBC for patient. Skin issues noted on sacrum and buttocks. Right hand 22g IV clean dry and intact, saline locked. will follow plan of care. Addendum: 10/06/20 at 0757 by Joby Beck RN charted on wrong patient
--- NOTE | 2020-10-05 07:32 | NUR ---
RESPIRATORY NOTE: PT RECEIVED STABLE ON CMV WITH CURRENT SETTINGS: AC/VC 12, 450, 45%, +7. AIRWAY IS MIDLINE SECURE AND PATENT. ALARMS ARE ON AND AUDIBLE. VENT CIRCUIT IS SECURE AND OUT OF THE WAY. NO S/S OF RESPIRATORY DISTRESS NOTED AT THIS TIME. WILL CONTINUE TO MONITOR.
[2020-10-05 08:00] VITALS: BP 112/66
[2020-10-05] MEDS ORDERED: NS 275ml ONE (08:29)
--- NOTE | 2020-10-05 08:53 | Urology Progress Note ---
Assessment/Plan Status: stable Assessment/Plan: 1. Gross hematuria. 2. Pyuria and possible UTI. 3. Proteinuria. 4. BPH. 5. Urinary retention. 6. Probable neurogenic bladder. 7. Possible sepsis. monitor clinically maintain andrade, secured to pt's leg hand irrigated and do PRN s/p abx flomax and proscar cysto electively voiding trial at some point? Subjective Allergies: Coded Allergies: VANCOMYCIN (Verified Allergy, Severe, hive, 09/28/20) Subjective remains on vent, trach 09/27 Objective Last 24 Hour Vital Signs Date Time Temp Pulse Resp B/P (MAP) Pulse Ox O2 Delivery O2 Flow Rate FiO2 10/05/20 04:00 98.5 73 18 105/65 (78) 100 10/05/20 04:00 Mechanical Ventilator 45.0 Mechanical Ventilator 45.0 10/05/20 04:00 45 10/05/20 03:30 70 25 45 10/05/20 03:19 76 10/05/20 00:00 98.8 81 20 112/60 (77) 100 10/05/20 00:00 Mechanical Ventilator 45.0 Mechanical Ventilator 45.0 10/05/20 00:00 45 10/04/20 23:31 80 10/04/20 23:07 93 33 45 10/04/20 21:30 78 30 45 10/04/20 20:00 99.0 70 18 123/72 (89) 97 10/04/20 20:00 80 10/04/20 20:00 Mechanical Ventilator 45.0 Mechanical Ventilator 45.0 10/04/20 20:00 45 10/04/20 19:43 76 10/04/20 19:26 79 31 45 10/04/20 16:45 71 23 45 10/04/20 16:00 97.2 61 18 110/69 (83) 97 10/04/20 16:00 Mechanical Ventilator 15.0 Mechanical Ventilator 15.0 10/04/20 16:00 45 10/04/20 16:00 73 10/04/20 15:34 84 27 45 10/04/20 13:20 81 21 45 10/04/20 12:00 Mechanical Ventilator 15.0 Mechanical Ventilator 15.0 10/04/20 12:00 66 10/04/20 12:00 45 10/04/20 12:00 98.2 61 17 122/76 (91) 100 10/04/20 11:23 87 30 45 10/04/20 09:10 86 30 45 Intake and Output 10/04/20 10/05/20 19:00 07:00 Intake Total 1040 ml 870 ml Output Total 1300 ml 800 ml Balance -260 ml 70 ml Free Water 200 ml 90 ml Tube Feeding 660 ml 780 ml Other 180 ml Output Urine Total 1300 ml 800 ml Microbiology Date/Time Source Procedure Growth Status 09/24/20 10:50 Nasopharynx SARS-CoV-2 RdRp Gene Assay - Final Complete 09/18/20 18:30 Stool Clostridium difficile Toxin Assay - Final Complete 09/17/20 12:58 Blood Blood Culture - Final NO GROWTH AFTER 5 DAYS Complete 09/10/20 20:05 Urine,Clean Catch Urine Culture - Final NO GROWTH AFTER 48 HOURS Complete 09/10/20 17:15 Rectum VRE Culture - Final Enterococcus Faecalis - Vre Complete Current Medications Medications (Trade) Dose Ordered Sig/Aleksander Route PRN Reason Start Time Stop Time Status Last Admin Dose Admin Acetaminophen (Tylenol) 650 mg Q4H PRN NG Temp >100.5 09/10/20 23:15 10/10/20 23:14 10/01/20 20:09 Al Hydroxide/Mg Hydroxide (Mylanta) 30 ml Q4H PRN NG Constipation 09/11/20 00:15 10/10/20 23:14 Ascorbic Acid (Vitamin C) 250 mg DAILY NG 09/26/20 09:00 10/18/20 08:59 10/04/20 09:17 Diphenhydramine HCl (Benadryl) 25 mg Q6H PRN IVP Itching 09/27/20 12:15 10/27/20 12:14 10/01/20 10:45 Diphenoxylate HCl/ Atropine (Lomotil) 2.5 mg Q4H PRN ORAL Diarrhea 09/20/20 08:15 10/20/20 08:14 Famotidine (Pepcid) 20 mg BID GT 10/04/20 09:00 01/02/21 08:59 10/04/20 18:40 Finasteride (Proscar) 5 mg DAILY ORAL 09/13/20 09:00 12/12/20 08:59 10/04/20 09:17 Furosemide (Lasix) 40 mg DAILY IV 10/03/20 09:00 11/02/20 08:59 10/04/20 09:17 Multivitamins (Multivitamins W/ Minerals 15ml Liquid) 15 ml DAILY NG 09/26/20 09:00 10/26/20 08:59 10/04/20 09:17 Ondansetron HCl (Zofran) 4 mg Q6H PRN IVP Nausea & Vomiting 09/10/20 23:15 10/10/20 23:14 Spironolactone (Aldactone) 25 mg DAILY GT 10/05/20 09:00 11/04/20 08:59 Tamsulosin HCl (Flomax) 0.4 mg BEDTIME ORAL 09/12/20 21:00 10/12/20 20:59 10/04/20 20:45 Valproic Acid (Depakene) 1,000 mg BEDTIME NG 09/16/20 21:00 10/31/20 20:59 10/04/20 20:46 Zinc Sulfate (Zinc Sulfate) 220 mg DAILY NG 09/26/20 09:00 10/06/20 08:59 10/04/20 09:17 Height (Feet): 6 Height (Inches): 1.00 Weight (Pounds): 148 Objective exam stable urine clearing Levi Brunson MD Oct 05, 2020 08:53
--- NOTE | 2020-10-05 09:00 | NUR ---
RD ASSESSMENT & RECOMMENDATIONS SEE CARE ACTIVITY FOR COMPLETE ASSESSMENT DAILY ESTIMATED NEEDS: Needs based on Wound, underweight, critical care/ 55kg 25-33 kcals/kg 3576-2970 total kcals 1.25-2 g protein/kg 69-110 g total protein 25-30 mL/kg 1894-2186 total fluid mLs NUTRITION DIAGNOSIS: * Increased kcal/prot needs R/T wound healing and underweight status as evidenced by pt admitted w/ wounds including DTI 2 coccyx and stage 1 @ lt ischium, pt @ 73% IBW w/ low BMI per guidelines. * Swallowing difficulty R/T respiratory status as evidenced by s/p code blue (09/22), orally intubated, s/p trach placement (09/27), s/p PEG placement (10/01), NPO. ENTERAL NUTRITION RECOMMENDATIONS: Jevity 1.2 @ 60ml/hr x 24 hrs to provide 1440ml, 1728kcal, 80g prot, 1160ml free water * Maintain @goal as tolerated * HOB over 30 degrees/ water flush per MD ADDITIONAL RECOMMENDATIONS: * Calibrated daily bedscale wt Per SNF: HT=70" * Wound healing: TF rec @ goal will provide 100% RDI Continue Vit C and ZnSO4, add Davidson BID via TF * Monitor lytes, replete as needed (K 3.4) * Monitor hydration status: Na and BUn now wnl * Monitor BGs for hypoglycemia: Rec added D5 while NPO
[2020-10-05] MEDS: Multivitamins W/Minerals 15 ML UDC NG SCH (09:29)
[2020-10-05] MEDS: Ascorbic Acid 500mg tab NG SCH (09:29)
[2020-10-05] MEDS: Spironolactone 25mg tab GT SCH (09:29)
[2020-10-05] MEDS: Zinc Sulfate 220mg NG SCH (09:29)
--- NOTE | 2020-10-05 10:57 | Infectious Diseases Prog Note ---
Assessment/Plan Assessment/Plan antibiotics : none A 1. MRSA Pneumonia s/p rx COVID-19 test is negative. 2. Dementia. 3. Leukocytosis improving 4. respiratory failure s/p tracheostomy 5. allergic reaction to vancomycin resolved P 1. observe off antibiotics Subjective ROS Limited/Unobtainable: Yes Allergies: Coded Allergies: VANCOMYCIN (Verified Allergy, Severe, hive, 09/28/20) Objective Last 24 Hour Vital Signs Date Time Temp Pulse Resp B/P (MAP) Pulse Ox O2 Delivery O2 Flow Rate FiO2 10/05/20 08:00 97.5 76 12 112/66 (81) 100 10/05/20 08:00 45 10/05/20 08:00 74 10/05/20 08:00 Mechanical Ventilator Mechanical Ventilator 10/05/20 04:00 98.5 73 18 105/65 (78) 100 10/05/20 04:00 Mechanical Ventilator 45.0 Mechanical Ventilator 45.0 10/05/20 04:00 45 10/05/20 03:30 70 25 45 10/05/20 03:19 76 10/05/20 00:00 98.8 81 20 112/60 (77) 100 10/05/20 00:00 Mechanical Ventilator 45.0 Mechanical Ventilator 45.0 10/05/20 00:00 45 10/04/20 23:31 80 10/04/20 23:07 93 33 45 10/04/20 21:30 78 30 45 10/04/20 20:00 99.0 70 18 123/72 (89) 97 10/04/20 20:00 80 10/04/20 20:00 Mechanical Ventilator 45.0 Mechanical Ventilator 45.0 10/04/20 20:00 45 10/04/20 19:43 76 10/04/20 19:26 79 31 45 10/04/20 16:45 71 23 45 10/04/20 16:00 97.2 61 18 110/69 (83) 97 10/04/20 16:00 Mechanical Ventilator 15.0 Mechanical Ventilator 15.0 10/04/20 16:00 45 10/04/20 16:00 73 10/04/20 15:34 84 27 45 10/04/20 13:20 81 21 45 10/04/20 12:00 Mechanical Ventilator 15.0 Mechanical Ventilator 15.0 10/04/20 12:00 66 10/04/20 12:00 45 10/04/20 12:00 98.2 61 17 122/76 (91) 100 10/04/20 11:23 87 30 45 Height (Feet): 6 Height (Inches): 1.00 Weight (Pounds): 148 HEENT: status post trach Respiratory/Chest: lungs clear Cardiovascular: normal rate, regular rhythm, no gallop/murmur Abdomen: soft, non tender, other - GT Extremities: no edema Current Medications Medications (Trade) Dose Ordered Sig/Aleksander Route PRN Reason Start Time Stop Time Status Last Admin Dose Admin Acetaminophen (Tylenol) 650 mg Q4H PRN NG Temp >100.5 09/10/20 23:15 10/10/20 23:14 10/01/20 20:09 Al Hydroxide/Mg Hydroxide (Mylanta) 30 ml Q4H PRN NG Constipation 09/11/20 00:15 10/10/20 23:14 Ascorbic Acid (Vitamin C) 250 mg DAILY NG 09/26/20 09:00 10/18/20 08:59 10/05/20 09:29 Diphenhydramine HCl (Benadryl) 25 mg Q6H PRN IVP Itching 09/27/20 12:15 10/27/20 12:14 10/01/20 10:45 Diphenoxylate HCl/ Atropine (Lomotil) 2.5 mg Q4H PRN ORAL Diarrhea 09/20/20 08:15 10/20/20 08:14 Famotidine (Pepcid) 20 mg BID GT 10/04/20 09:00 01/02/21 08:59 10/05/20 09:29 Finasteride (Proscar) 5 mg DAILY ORAL 09/13/20 09:00 12/12/20 08:59 10/05/20 09:29 Furosemide (Lasix) 40 mg DAILY IV 10/03/20 09:00 11/02/20 08:59 10/05/20 09:30 Multivitamins (Multivitamins W/ Minerals 15ml Liquid) 15 ml DAILY NG 09/26/20 09:00 10/26/20 08:59 10/05/20 09:29 Ondansetron HCl (Zofran) 4 mg Q6H PRN IVP Nausea & Vomiting 09/10/20 23:15 10/10/20 23:14 Spironolactone (Aldactone) 25 mg DAILY GT 10/05/20 09:00 11/04/20 08:59 10/05/20 09:29 Tamsulosin HCl (Flomax) 0.4 mg BEDTIME ORAL 09/12/20 21:00 10/12/20 20:59 10/04/20 20:45 Valproic Acid (Depakene) 1,000 mg BEDTIME NG 09/16/20 21:00 10/31/20 20:59 10/04/20 20:46 Zinc Sulfate (Zinc Sulfate) 220 mg DAILY NG 09/26/20 09:00 10/06/20 08:59 10/05/20 09:29 Martha Collins MD Oct 05, 2020 10:57
--- NOTE | 2020-10-05 11:46 | NUR ---
CASE MANAGEMENT:REVIEW SI;RESP FAILURE S/P TRACH TRACH/VENT DEPENDENT,SEPSIS. 98.8 81 25 112/66 100% TRACH VENT AC 12 TV 450 PEEP 7 FIO2 45% IS;ALDACTONE GT QD PEPCID BG BID DEPAKENE GT HS FLOMAX GT HS ASTER STATUS DCP;PLACEMENT PENDING
[2020-10-05 12:00] VITALS: BP 102/61
--- NOTE | 2020-10-05 12:26 | General Progress Note ---
Subjective ROS Limited/Unobtainable: Yes Allergies: Coded Allergies: VANCOMYCIN (Verified Allergy, Severe, hive, 09/28/20) Subjective on vent contracted trach placed oxygenation noted in ASTER anemic Objective Last 24 Hour Vital Signs Date Time Temp Pulse Resp B/P (MAP) Pulse Ox O2 Delivery O2 Flow Rate FiO2 10/05/20 12:00 97.2 61 34 102/61 (75) 100 10/05/20 12:00 45 10/05/20 12:00 Mechanical Ventilator Mechanical Ventilator 10/05/20 08:00 97.5 76 12 112/66 (81) 100 10/05/20 08:00 45 10/05/20 08:00 74 10/05/20 08:00 Mechanical Ventilator Mechanical Ventilator 10/05/20 04:00 98.5 73 18 105/65 (78) 100 10/05/20 04:00 Mechanical Ventilator 45.0 Mechanical Ventilator 45.0 10/05/20 04:00 45 10/05/20 03:30 70 25 45 10/05/20 03:19 76 10/05/20 00:00 98.8 81 20 112/60 (77) 100 10/05/20 00:00 Mechanical Ventilator 45.0 Mechanical Ventilator 45.0 10/05/20 00:00 45 10/04/20 23:31 80 10/04/20 23:07 93 33 45 10/04/20 21:30 78 30 45 10/04/20 20:00 99.0 70 18 123/72 (89) 97 10/04/20 20:00 80 10/04/20 20:00 Mechanical Ventilator 45.0 Mechanical Ventilator 45.0 10/04/20 20:00 45 10/04/20 19:43 76 10/04/20 19:26 79 31 45 10/04/20 16:45 71 23 45 10/04/20 16:00 97.2 61 18 110/69 (83) 97 10/04/20 16:00 Mechanical Ventilator 15.0 Mechanical Ventilator 15.0 10/04/20 16:00 45 10/04/20 16:00 73 10/04/20 15:34 84 27 45 10/04/20 13:20 81 21 45 Intake and Output 10/04/20 10/05/20 19:00 07:00 Intake Total 1040 ml 870 ml Output Total 1300 ml 800 ml Balance -260 ml 70 ml Free Water 200 ml 90 ml Tube Feeding 660 ml 780 ml Other 180 ml Output Urine Total 1300 ml 800 ml Height (Feet): 6 Height (Inches): 1.00 Weight (Pounds): 148 Objective WDWN chronically ill trach in place feeding tube in place reduced breath sounds bilaterally with scattered rhonchi [id number] without MRG NABS nontender no CCE nonfocal poor LOC Assessment/Plan Status: stable Assessment/Plan: IMPRESSION: 1. Acute renal failure. 2. Hypernatremia. 3. Leukocytosis. 4. Possible sepsis. 5. Hypotension. 6. Dementia. 7. Acute on chronic encephalopathy. 8. bcx staph Epi 9. MRSA colonized 10. acute hypoxemic respiratory failure 11. atelectasis/collapse 12. leukocytosis 13. trach PLAN follow up HH taper fio2 as able ID noted; monitor follow up on antibiotics monitor oxygen needs vent support full for now off load as able monitor lytes position change monitor imaging d/w consultants and nursing remains critical trach care dc plan to subacute if accepted impression, plan, and exam edited and reviewed in detail care discussed with Patel Tesfaye MD Oct 05, 2020 12:26
--- NOTE | 2020-10-05 12:46 | Surgery Progress Note ---
Surgery Progress Note Subjective Procedure Performed tracheostomy Symptoms: improved, tolerating diet, passing flatus Objective Last 24 Hour Vital Signs Date Time Temp Pulse Resp B/P (MAP) Pulse Ox O2 Delivery O2 Flow Rate FiO2 10/05/20 12:00 97.2 61 34 102/61 (75) 100 10/05/20 12:00 74 10/05/20 12:00 45 10/05/20 12:00 Mechanical Ventilator Mechanical Ventilator 10/05/20 08:00 97.5 76 12 112/66 (81) 100 10/05/20 08:00 45 10/05/20 08:00 74 10/05/20 08:00 Mechanical Ventilator Mechanical Ventilator 10/05/20 04:00 98.5 73 18 105/65 (78) 100 10/05/20 04:00 Mechanical Ventilator 45.0 Mechanical Ventilator 45.0 10/05/20 04:00 45 10/05/20 03:30 70 25 45 10/05/20 03:19 76 10/05/20 00:00 98.8 81 20 112/60 (77) 100 10/05/20 00:00 Mechanical Ventilator 45.0 Mechanical Ventilator 45.0 10/05/20 00:00 45 10/04/20 23:31 80 10/04/20 23:07 93 33 45 10/04/20 21:30 78 30 45 10/04/20 20:00 99.0 70 18 123/72 (89) 97 10/04/20 20:00 80 10/04/20 20:00 Mechanical Ventilator 45.0 Mechanical Ventilator 45.0 10/04/20 20:00 45 10/04/20 19:43 76 10/04/20 19:26 79 31 45 10/04/20 16:45 71 23 45 10/04/20 16:00 97.2 61 18 110/69 (83) 97 10/04/20 16:00 Mechanical Ventilator 15.0 Mechanical Ventilator 15.0 10/04/20 16:00 45 10/04/20 16:00 73 10/04/20 15:34 84 27 45 10/04/20 13:20 81 21 45 I&O Intake and Output 10/04/20 10/05/20 19:00 07:00 Intake Total 1040 ml 870 ml Output Total 1300 ml 800 ml Balance -260 ml 70 ml Free Water 200 ml 90 ml Tube Feeding 660 ml 780 ml Other 180 ml Output Urine Total 1300 ml 800 ml Dressing: saturated Cardiovascular: RSR Respiratory: decreased breath sounds Abdomen: non-tender, present bowel sounds, non-distended Extremities: no tenderness, no cyanosis Plan Problems: (1) Fever Assessment & Plan: maybe developing pneumonia cont abx pulm input thank you (2) Decubitus skin ulcer Assessment & Plan: Patient identified on admission to have multiple scabs on the left arm. mild open scabs with eschar. no drainage. no significant cellulitis. bruising no bilateral extremities noted. no signs of abuse. likely from agitation Sacral coccygeal noted to have a DTI 4.3X2.5CM. which is dark purple . RECOMMEND-CLEAN WITH SALINE, PAT DRY AND APPLY CALAZINE. COVER WITH OPTIFOAM DRESSING. REPLACE EVERY 3 DAYS OR NEEDED LEFT ISCHIUM- STAGE I PRESSURE ULCER MEASURES 4.5X1.7CM. NON-BLANCHABLE ERYTHEMA. RECOMMEND- APPLY CALAZINE AND COVER WITH OPTIFOAM DRESSING. REPLACE EVERY 7 DAYS. Turn q2h off load pressure with pillow off load heels nutritional optimization ELECTION CLERK eval will follow with recs thank you (3) Malnutrition Assessment & Plan: Mr. Roman is a 70 year old male BIBA to ED of [facility] on 09/10/2020 around 14:00 due to fever. He was found to be hypotensive 91/55 (67), Temp: 100.0, leukocytosis 20.8k and subsequently transferred to ICU for septic shock. The blood culture is reportedly positive for gram positive cocci. NG tube was placed, KUB confirmed the placement to day. Pt is clinically stable with leukocytosis 20.1, improved BUN and creatine, stable hemodynamic without vasopressor. Findings: Mr. Roman is disoriented. He does ot follow commands at this time. Oral cavity is noted to be dried blood concretion likely from NG trauma. No active bleeding site is seen. Due to his level f alertness, already NG tube is in placed, PO trial was not done at this time. Transferred out ICU last night. He is non on tele. Issues: multiple wounds, s.p balaji/nasal/pharyngeal bleeding with blood culture Gram positive cocci leukocytosis trending down from 20k-20k-16k BUN/Creatine trending down from 93/1.9-79/1.3-54/1.1 Temp: 98.1~98.7, Pulse: 62~72, BP: 105/67~120/48, SPO2 98~100% on 2 liter S: Oral cavity is better condition comparison to yesterday. The mucosa is severely erythema without active bleeding. Limited level of alertness for direct therapy. NG in placed O: 1. Laryngeal palpation to trigger spontaneous cough and swallow: Pt triggered cough with laryngeal palpation. Approximately 5~10 seconds after coughing, he triggered swallow. based on this observation, he presents with copious secretion in pharynx and larynx. He continued to have poor secretion management at laryngeal level at this time. NO PO trial was given due to poor secretion at the level of air way with low level of alertness. A: 1. Probable aspiration of his own secretion with poor ability to cough and swallow 2. Dysphagia P: 1. NPO for now 2. Observe his secretion, and level of alertness for PO readiness. DAILY ESTIMATED NEEDS: Needs based on Wound, underweight/ 55kg 30-35 kcals/kg 3817-3670 total kcals 1.25-2 g protein/kg 69-110 g total protein 25-30 mL/kg 4479-2681 total fluid mLs NUTRITION DIAGNOSIS: Increased kcal/prot needs R/T wound healing and underweight status as evidenced by pt admitted w/ wounds including DTI 2 coccyx and stage 1 @ lt ischium, pt @ 73% IBW w/ low BMI per guidelines, s/p NGT insertion, on NGT feeds. CURRENT TF:Jevity 1.2 @ 50ml/hr x 24 hrs ENTERAL NUTRITION RECOMMENDATIONS: Jevity 1.2 @ 60ml/hr x 24 hrs to provide 1440ml, 1728kcal, 80g prot, 1160ml free water * As medically appropriate, increase goal rate to 60ml/hr x 24 hrs to meet 100% est kcal/prot needs * HOB over 30 degrees/ without IVF, H2O flush of 100ml q 8hrs ADDITIONAL RECOMMENDATIONS: * Calibrated daily bedscale wt Per SNF: HT=70" * Wound healing: TF rec @ goal will provide 100% RDI add Vit C 250mg QD, ZnSO4 220mg QD x 10days, Davidson BID via NGT * Monitor BGs, need for NISS w/ TF * Monitor lytes, replete as needed- high risk for refeeding syndrome -> check f/up phos and mag (4) Severe sepsis Assessment & Plan: will likely need trach and peg. patient needs protected airway and nutrition full code no family and unable to consent medically necessary. will plan soon (5) Open upper arm wound (6) Hematuria Assessment & Plan: as per urology Aubrey Gutierrez Oct 05, 2020 12:46
--- NOTE | 2020-10-05 14:13 | General Progress Note ---
Subjective ROS Limited/Unobtainable: No Constitutional: Reports: malaise, weakness HEENT: Reports: no symptoms Cardiovascular: Reports: no symptoms Respiratory: Reports: cough, shortness of breath, sputum Gastrointestinal/Abdominal: Reports: difficulty swallowing Genitourinary: Reports: no symptoms Neurologic/Psychiatric: Reports: anxiety, pre-existing deficit Endocrine: Reports: no symptoms Hematologic/Lymphatic: Reports: no symptoms Allergies: Coded Allergies: VANCOMYCIN (Verified Allergy, Severe, hive, 09/28/20) All Systems: reviewed and negative except above Subjective no events. o2 sats improving. alert but confused. no fevers. labs reviewed. Objective Last 24 Hour Vital Signs Date Time Temp Pulse Resp B/P (MAP) Pulse Ox O2 Delivery O2 Flow Rate FiO2 10/05/20 12:00 97.2 61 34 102/61 (75) 100 10/05/20 12:00 74 10/05/20 12:00 45 10/05/20 12:00 Mechanical Ventilator Mechanical Ventilator 10/05/20 08:00 97.5 76 12 112/66 (81) 100 10/05/20 08:00 45 10/05/20 08:00 74 10/05/20 08:00 Mechanical Ventilator Mechanical Ventilator 10/05/20 04:00 98.5 73 18 105/65 (78) 100 10/05/20 04:00 Mechanical Ventilator 45.0 Mechanical Ventilator 45.0 10/05/20 04:00 45 10/05/20 03:30 70 25 45 10/05/20 03:19 76 10/05/20 00:00 98.8 81 20 112/60 (77) 100 10/05/20 00:00 Mechanical Ventilator 45.0 Mechanical Ventilator 45.0 10/05/20 00:00 45 10/04/20 23:31 80 10/04/20 23:07 93 33 45 10/04/20 21:30 78 30 45 10/04/20 20:00 99.0 70 18 123/72 (89) 97 10/04/20 20:00 80 10/04/20 20:00 Mechanical Ventilator 45.0 Mechanical Ventilator 45.0 10/04/20 20:00 45 10/04/20 19:43 76 10/04/20 19:26 79 31 45 10/04/20 16:45 71 23 45 10/04/20 16:00 97.2 61 18 110/69 (83) 97 10/04/20 16:00 Mechanical Ventilator 15.0 Mechanical Ventilator 15.0 10/04/20 16:00 45 10/04/20 16:00 73 10/04/20 15:34 84 27 45 Intake and Output 10/04/20 10/05/20 19:00 07:00 Intake Total 1040 ml 930 ml Output Total 1300 ml 800 ml Balance -260 ml 130 ml Free Water 200 ml 90 ml Tube Feeding 660 ml 840 ml Other 180 ml Output Urine Total 1300 ml 800 ml Height (Feet): 6 Height (Inches): 1.00 Weight (Pounds): 148 Objective General Appearance: WD/WN, confused. EENT: normal ENT inspection. +trach, dressing clean Neck: normal alignment, supple Cardiovascular: normal rate, regular rhythm Respiratory/Chest: rhonchi - bilaterally. diminished BS Abdomen: normal bowel sounds, non tender, soft, no organomegaly Edema: no edema noted Leg (L), no edema noted Leg (R) Neurologic: diet kitchen cook II-XII grossly normal, responsive, disoriented Lymphatic: normal anterior cervical (L), normal anterior cervical (R), normal posterior cervical (L), normal posterior cervical (R) Assessment/Plan Problem List: (1) PNA (pneumonia) ICD Codes: J18.9 - Pneumonia, unspecified organism SNOMED: 462669648 (2) UTI (urinary tract infection) ICD Codes: N39.0 - Urinary tract infection, site not specified SNOMED: 08157340 (3) Fever ICD Codes: R50.9 - Fever, unspecified SNOMED: 088452121 Qualifiers: Qualified Codes: R50.9 - Fever, unspecified (4) Decubitus skin ulcer ICD Codes: L89.90 - Pressure ulcer of unspecified site, unspecified stage SNOMED: 935747302 (5) Malnutrition ICD Codes: E46 - Unspecified protein-calorie malnutrition SNOMED: 99567666 (6) Severe sepsis ICD Codes: A41.9 - Sepsis, unspecified organism; R65.20 - Severe sepsis without septic shock SNOMED: 41109965 (7) Hematuria ICD Codes: R31.9 - Hematuria, unspecified SNOMED: 58416059 Status: stable Assessment/Plan: monitor off abx resp rx and suctioning trach care titrate fio2 monitor abg skin care tube feeds- tolerating monitor labs poor prognosis dc planning Jason Layne MD Oct 05, 2020 14:13
[2020-10-05 16:00] VITALS: BP 119/65
--- NOTE | 2020-10-05 19:17 | NUR ---
NURSE NOTES: Received report from ARTEMIO Hemphill, pt. in bed awake w/ eyes open- non-verbal, no signs or symptoms of acute cardiac or respiratory distress noted, bed alarm on, side rails up x's 3 and safety brakes engaged, call light within easy reach, side rails padded for seizure precautions- no seizure activity noted upon assessment, pt. is SB on monitor at 57- remains stable- asymptomatic, pt. appears to be tolerating current vent settings AC 12, TV 450, Fio2 at 45% and peep 7- no distress noted, Rae intact and draining to gravity, RAC 20G IV intact and patent- SL, aspiration precautions observed- HOB elevated, skin precautions observed, safety measures continued, will continue with plan of care.
--- NOTE | 2020-10-05 19:21 | NUR ---
NURSE HAND-OFF REPORT: Important Events on Shift: Patient Status: Stable Diet: jevity 1.2@70ML/HR Pending Orders: Pending Results/Labs: Pending MD notification: Latest Vital Signs: Temperature 98.4 , Pulse 56 , B/P 119 /65 , Respiratory Rate 29 , O2 SAT 100 , Mechanical Ventilator, O2 Flow Rate 45.0 . Vital Sign Comment: EKG Rhythm: Sinus Bradycardia Rhythm change?: N MD Notified?: N -Dr Jacklyn BENITEZ Response: No New Orders Received Latest Schultz Fall Score: 70 Fall Risk: High Risk Safety Measures: Call light Within Reach, Bed Alarm Zone 1, Side Rails Side Rails x3, Bed position Low and Locked. Fall Precautions: Yellow Socks Door Sign Patient Fall Education Report given to ARTEMIO Wells.
[2020-10-05 20:00] VITALS: BP 125/70
[2020-10-05] MEDS: Valproic Acid 250mg/5ml Liquid NG SCH (20:12)
[2020-10-05] MEDS: Tamsulosin 0.4mg cap ORAL SCH (20:12)
[2020-10-05] MEDS: Acetaminophen 650mg/20.3ml NG PRN (20:34)
--- NOTE | 2020-10-05 21:55 | General Progress Note ---
Subjective Allergies: Coded Allergies: VANCOMYCIN (Verified Allergy, Severe, hive, 09/28/20) Subjective NAD awake, calm tolerated TF Objective Last 24 Hour Vital Signs Date Time Temp Pulse Resp B/P (MAP) Pulse Ox O2 Delivery O2 Flow Rate FiO2 10/05/20 21:04 98.8 10/05/20 20:00 99.7 72 26 125/70 (88) 100 10/05/20 20:00 Mechanical Ventilator Mechanical Ventilator 10/05/20 20:00 45 10/05/20 19:37 61 28 45 10/05/20 19:34 71 10/05/20 16:00 Mechanical Ventilator Mechanical Ventilator 10/05/20 16:00 56 10/05/20 16:00 98.4 65 29 119/65 (83) 100 10/05/20 16:00 45 10/05/20 14:57 78 25 45 10/05/20 12:00 97.2 61 34 102/61 (75) 100 10/05/20 12:00 74 10/05/20 12:00 45 10/05/20 12:00 Mechanical Ventilator Mechanical Ventilator 10/05/20 11:05 70 30 45 10/05/20 08:00 97.5 76 12 112/66 (81) 100 10/05/20 08:00 45 10/05/20 08:00 74 10/05/20 08:00 Mechanical Ventilator Mechanical Ventilator 10/05/20 07:32 67 26 45 10/05/20 04:00 98.5 73 18 105/65 (78) 100 10/05/20 04:00 Mechanical Ventilator 45.0 Mechanical Ventilator 45.0 10/05/20 04:00 45 10/05/20 03:30 70 25 45 10/05/20 03:19 76 10/05/20 00:00 98.8 81 20 112/60 (77) 100 10/05/20 00:00 Mechanical Ventilator 45.0 Mechanical Ventilator 45.0 10/05/20 00:00 45 10/04/20 23:31 80 10/04/20 23:07 93 33 45 Intake and Output 10/04/20 10/05/20 19:00 07:00 Intake Total 1040 ml 930 ml Output Total 1300 ml 800 ml Balance -260 ml 130 ml Free Water 200 ml 90 ml Tube Feeding 660 ml 840 ml Other 180 ml Output Urine Total 1300 ml 800 ml Height (Feet): 6 Height (Inches): 1.00 Weight (Pounds): 148 Objective Thin WM on vent/trach calm, awake Skin: no hematoma or ecchymosis HEENT NCAT supple, (+) trach coarse ronchi RR, slightly tachy abd soft flat ND, (+) GT no edema Assessment/Plan Status: stable Assessment/Plan: Assessment - resp failure - s/p PEG - anemia - OBS/Dementia - sepsis - diarrhea, C Diff (-) - Azotemia, resolved - CHF - malnutrition , low albumin - leukocytosis - hypernatremia Recommendations -Vent care / support - cards and pulm follow up - supportive care - abx - PPI - TF Deborah Cabrera MD Oct 05, 2020 21:55
[2020-10-06] VITALS: BP 131/77
--- NOTE | 2020-10-06 00:09 | Cardiology Progress Note ---
Subjective DATE OF SERVICE: Oct 05, 2020 Condition remains critical; prognosis guarded. Remains on vent via trach, requiring 40-50% oxygen delivery. Remains congested and edematous. BP remains mostly controlled. Monitor: sinus/ sinus tachycardia. Objective Last 24 Hour Vital Signs Date Time Temp Pulse Resp B/P (MAP) Pulse Ox O2 Delivery O2 Flow Rate FiO2 10/05/20 23:28 66 26 45 10/05/20 21:04 98.8 10/05/20 20:00 99.7 72 26 125/70 (88) 100 10/05/20 20:00 Mechanical Ventilator Mechanical Ventilator 10/05/20 20:00 45 10/05/20 19:37 61 28 45 10/05/20 19:34 71 10/05/20 16:00 Mechanical Ventilator Mechanical Ventilator 10/05/20 16:00 56 10/05/20 16:00 98.4 65 29 119/65 (83) 100 10/05/20 16:00 45 10/05/20 14:57 78 25 45 10/05/20 12:00 97.2 61 34 102/61 (75) 100 10/05/20 12:00 74 10/05/20 12:00 45 10/05/20 12:00 Mechanical Ventilator Mechanical Ventilator 10/05/20 11:05 70 30 45 10/05/20 08:00 97.5 76 12 112/66 (81) 100 10/05/20 08:00 45 10/05/20 08:00 74 10/05/20 08:00 Mechanical Ventilator Mechanical Ventilator 10/05/20 07:32 67 26 45 10/05/20 04:00 98.5 73 18 105/65 (78) 100 10/05/20 04:00 Mechanical Ventilator 45.0 Mechanical Ventilator 45.0 10/05/20 04:00 45 10/05/20 03:30 70 25 45 10/05/20 03:19 76 ROS: no change from my evaluation of 09/10/20. HEENT: Mechanically Ventilated, Thin Trach secretions RHYTHM: NSR, ST LUNGS: bilat. rhonchi and rales, trach site clean CARDIAC: normal rate, regular rhythm, normal S1 and S2 ABDOMEN: normal bowel sounds, soft, other - sacral decub EXTREMITIES: +1 edema Assessment/Plan Assessment/Plan Respiratory failure with hypoxia - s/p tracheostomy Sepsis Leukocytosis Aspiration PNA Recurring shock Diarrhea Dehydration/hypernatremia corrected Acute myocardial ischemia Acute renal failure HC assoc PNA UTI Transaminitis, acute CVA/dementia Paroxysmal sinus bradycardia and tachycardia Acute diastolic CHF Severe protein/calorie malnutrition with dysphagia; now s/p PEG Hypokalemia Remains CRITICAL & GUARDED Vent support with trach care. Antimicrobials per ID. Replace lytes as needed. DVT prophyl Cardiac monitoring Diuresis based on clinical parameters; aldactone added to spare potassium loss. Will check lytes. Madi Rios MD Oct 06, 2020 00:09
--- NOTE | 2020-10-06 00:30 | NUR ---
NURSE NOTES: bed bath given and linens changed- oral care provided, pt. appears to be sating well on current vent settings at 99%- no distress noted- aspiration precautions continued, will continue to monitor pt. and with plan of care.
[2020-10-06] MEDS: DiphenhydrAMINE 50mg/ml Inj IVP PRN ×2 (01:33→21:00)
--- NOTE | 2020-10-06 01:34 | NUR ---
NURSE NOTES: noted pt. to be scratching his legs- repositioned and turned pt., but unsuccessful- Will administer Benadryl per eMAR order- will continue to monitor pt. and with plan of care.
--- NOTE | 2020-10-06 02:40 | NUR ---
NURSE NOTES: pt. noted in bed to be comfortably- asleep- no signs of itching noted- will continue to monitor pt. and with plan of care.
[2020-10-06 04:00] VITALS: BP 123/77
[2020-10-06 04:40] LABS: HEMATOCRIT 22.1 % (42.0-52.0); HEMOGLOBIN 7.4 G/DL (14.2-18.0); MEAN CORPUSCULAR VOLUME 85 FL (80-99); PLATELET COUNT 226 K/UL (150-450); RED BLOOD COUNT 2.59 M/UL (4.70-6.10); RED CELL DISTRIBUTION WIDTH 14.9 % (11.6-14.8)
[2020-10-06 05:06] LABS: ALANINE AMINOTRANSFERASE 31 U/L (12-78); ALBUMIN 1.1 G/DL (3.4-5.0); ALBUMIN/GLOBULIN RATIO 0.2 (1.0-2.7); ALKALINE PHOSPHATASE 58 U/L (46-116); ANION GAP 2 mmol/L (5-15); ASPARTATE AMINO TRANSFERASE 33 U/L (15-37); BILIRUBIN,TOTAL 0.2 MG/DL (0.2-1.0); BLOOD UREA NITROGEN 16 mg/dL (7-18); CALCIUM 6.9 MG/DL (8.5-10.1); CARBON DIOXIDE 31 MMOL/L (21-32); CHLORIDE 107 MMOL/L (98-107); CREATININE 0.8 MG/DL (0.55-1.30); POTASSIUM 3.7 MMOL/L (3.5-5.1); SODIUM 139 MMOL/L (136-145)
--- NOTE | 2020-10-06 07:02 | NUR ---
NURSE HAND-OFF REPORT: Important Events on Shift:fever - resolved Patient Status: fair Diet: Jevity 1.2 Pending Orders: Pending Results/Labs: Pending MD notification: Latest Vital Signs: Temperature 97.9 , Pulse 70 , B/P 123 /77 , Respiratory Rate 24 , O2 SAT 98 , Mechanical Ventilator, O2 Flow Rate 45.0 . Vital Sign Comment: EKG Rhythm: Sinus Rhythm Rhythm change?: N MD Notified?: MD Response: Latest Schultz Fall Score: 70 Fall Risk: High Risk Safety Measures: Call light Within Reach, Bed Alarm Zone 1, Side Rails Side Rails x3, Bed position Low and Locked. Fall Precautions: Yellow Socks Door Sign Patient Fall Education Report given to Marquise Hemphill, aware to f/u on any abnormal am labs.
--- NOTE | 2020-10-06 07:30 | NUR ---
NURSE NOTES:Handoff received from ARTEMIO Wells. Patient received resting in bed, eyes open but patient does not follow commands. Patient is on trach to vent with the following settings:Portex 7 AC12, TV450, FI02 45% and peep of 7 tolerating well with 02 sat of 100% no signs of acute distress noted. 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 Patient has Rae patent and draining to gravity. G tube feeding is running Jevity 1.2 @60ML/HR. Iv site is clean dry and intact, saline locked. SCD's are on as is campus monitor showing rate of 78. will follow plan of care.
[2020-10-06 08:00] VITALS: BP 129/79
--- NOTE | 2020-10-06 08:19 | NUR ---
NURSE NOTES:Dr Villasenor rounded on patient, informed him of patient drop in hemoglobin and hematocrit. gave verbal order for 1 unit PRBC's.
[2020-10-06] MEDS: Ascorbic Acid 500mg tab NG SCH (08:54)
[2020-10-06] MEDS: Zinc Sulfate 220mg GT SCH (08:54)
[2020-10-06] MEDS: Multivitamins W/Minerals 15 ML UDC NG SCH (08:54)
[2020-10-06] MEDS: Spironolactone 25mg tab GT SCH (08:54)
[2020-10-06 12:00] VITALS: BP 124/71
--- NOTE | 2020-10-06 12:29 | General Progress Note ---
Subjective ROS Limited/Unobtainable: No Constitutional: Reports: malaise, weakness HEENT: Reports: no symptoms Cardiovascular: Reports: no symptoms Respiratory: Reports: cough Gastrointestinal/Abdominal: Reports: difficulty swallowing Genitourinary: Reports: no symptoms Neurologic/Psychiatric: Reports: pre-existing deficit Endocrine: Reports: no symptoms Hematologic/Lymphatic: Reports: anemia Allergies: Coded Allergies: VANCOMYCIN (Verified Allergy, Severe, hive, 09/28/20) All Systems: reviewed and negative except above Subjective no events. o2 sats improving. alert but confused. no fevers. labs reviewed. decreased h/h. no bleeding Objective Last 24 Hour Vital Signs Date Time Temp Pulse Resp B/P (MAP) Pulse Ox O2 Delivery O2 Flow Rate FiO2 10/06/20 12:00 66 10/06/20 12:00 Mechanical Ventilator Mechanical Ventilator 10/06/20 12:00 99.1 75 24 124/71 (88) 100 10/06/20 11:55 45 10/06/20 08:00 98.4 83 28 129/79 (96) 99 10/06/20 08:00 Mechanical Ventilator Mechanical Ventilator 10/06/20 08:00 45 10/06/20 08:00 71 10/06/20 07:20 71 26 45 10/06/20 04:00 97.9 70 24 123/77 (92) 98 10/06/20 04:00 Mechanical Ventilator Mechanical Ventilator 10/06/20 04:00 45 10/06/20 03:29 67 23 45 10/06/20 03:28 72 10/06/20 00:00 Mechanical Ventilator Mechanical Ventilator 10/06/20 00:00 98.4 76 28 131/77 (95) 100 10/05/20 23:59 74 10/05/20 23:28 66 26 45 10/05/20 21:04 98.8 10/05/20 20:00 99.7 72 26 125/70 (88) 100 10/05/20 20:00 Mechanical Ventilator Mechanical Ventilator 10/05/20 20:00 45 10/05/20 19:37 61 28 45 10/05/20 19:34 71 10/05/20 16:00 Mechanical Ventilator Mechanical Ventilator 10/05/20 16:00 56 10/05/20 16:00 98.4 65 29 119/65 (83) 100 10/05/20 16:00 45 10/05/20 14:57 78 25 45 Intake and Output 10/05/20 10/06/20 19:00 07:00 Intake Total 960 ml 770 ml Output Total 1550 ml 350 ml Balance -590 ml 420 ml Free Water 240 ml 50 ml Tube Feeding 720 ml 720 ml Output Urine Total 1550 ml 350 ml # Bowel Movements 1 Laboratory Tests 10/06/20 03:30: White Blood Count 7.0, Red Blood Count 2.59L, Hemoglobin 7.4L, Hematocrit 22.1L, Mean Corpuscular Volume 85, Mean Corpuscular Hemoglobin 28.5, Mean Corpuscular Hemoglobin Concent 33.5, Red Cell Distribution Width 14.9H, Platelet Count 226, Mean Platelet Volume 6.4L, Neutrophils (%) (Auto) , Lymphocytes (%) (Auto) , Monocytes (%) (Auto) , Eosinophils (%) (Auto) , Basophils (%) (Auto) , Differential Total Cells Counted 100, Neutrophils % (Manual) 79H, Lymphocytes % (Manual) 12L, Monocytes % (Manual) 7, Eosinophils % (Manual) 2, Basophils % (Manual) 0, Band Neutrophils 0, Platelet Estimate Adequate, Platelet Morphology Normal, Hypochromasia 1+, Anisocytosis 1+, Sodium Level 139, Potassium Level 3.7, Chloride Level 107, Carbon Dioxide Level 31, Anion Gap 2L, Blood Urea Nitrogen 16, Creatinine 0.8, Estimat Glomerular Filtration Rate > 60, Glucose Level 129H, Calcium Level 6.9L, Magnesium Level 2.1, Total Bilirubin 0.2, Aspar mota Amino Transf (AST/SGOT) 33, Alanine Aminotransferase (ALT/SGPT) 31, Alkaline Phosphatase 58, Pro-B-Type Natriuretic Peptide [Pending], Total Protein 5.5L, Albumin 1.1L, Globulin 4.4, Albumin/Globulin Ratio 0.2L Height (Feet): 6 Height (Inches): 1.00 Weight (Pounds): 148 Objective General Appearance: WD/WN, confused. EENT: normal ENT inspection. +trach, dressing clean Neck: normal alignment, supple Cardiovascular: normal rate, regular rhythm Respiratory/Chest: rhonchi - bilaterally. diminished BS Abdomen: normal bowel sounds, non tender, soft, no organomegaly Edema: no edema noted Leg (L), no edema noted Leg (R) Neurologic: clipper automatic II-XII grossly normal, responsive, disoriented Lymphatic: normal anterior cervical (L), normal anterior cervical (R), normal posterior cervical (L), normal posterior cervical (R) Assessment/Plan Problem List: (1) PNA (pneumonia) ICD Codes: J18.9 - Pneumonia, unspecified organism SNOMED: 539593714 (2) UTI (urinary tract infection) ICD Codes: N39.0 - Urinary tract infection, site not specified SNOMED: 57247860 (3) Fever ICD Codes: R50.9 - Fever, unspecified SNOMED: 803403015 Qualifiers: Qualified Codes: R50.9 - Fever, unspecified (4) Decubitus skin ulcer ICD Codes: L89.90 - Pressure ulcer of unspecified site, unspecified stage SNOMED: 421857379 (5) Malnutrition ICD Codes: E46 - Unspecified protein-calorie malnutrition SNOMED: 12932484 (6) Severe sepsis ICD Codes: A41.9 - Sepsis, unspecified organism; R65.20 - Severe sepsis without septic shock SNOMED: 41318253 (7) Hematuria ICD Codes: R31.9 - Hematuria, unspecified SNOMED: 75869408 Status: stable Assessment/Plan: monitor off abx resp rx and suctioning trach care titrate fio2 monitor abg skin care tube feeds- tolerating monitor labs transfuse monitor for bleeding poor prognosis dc planning Jason Layne MD Oct 06, 2020 12:29
--- NOTE | 2020-10-06 14:26 | NUR ---
NURSE NOTES:Blood transfusion started. Pre transfusion vitals are: HR 77, BP117/71, Temp 99.3.
--- NOTE | 2020-10-06 14:37 | NUR ---
NURSE NOTES:new G tube feeding hung with new line.
--- NOTE | 2020-10-06 14:39 | General Progress Note ---
Subjective Allergies: Coded Allergies: VANCOMYCIN (Verified Allergy, Severe, hive, 09/28/20) Subjective NAD awake, calm tolerated TF Objective Last 24 Hour Vital Signs Date Time Temp Pulse Resp B/P (MAP) Pulse Ox O2 Delivery O2 Flow Rate FiO2 10/06/20 12:00 66 10/06/20 12:00 Mechanical Ventilator Mechanical Ventilator 10/06/20 12:00 99.1 75 24 124/71 (88) 100 10/06/20 11:55 45 10/06/20 08:00 98.4 83 28 129/79 (96) 99 10/06/20 08:00 Mechanical Ventilator Mechanical Ventilator 10/06/20 08:00 45 10/06/20 08:00 71 10/06/20 07:20 71 26 45 10/06/20 04:00 97.9 70 24 123/77 (92) 98 10/06/20 04:00 Mechanical Ventilator Mechanical Ventilator 10/06/20 04:00 45 10/06/20 03:29 67 23 45 10/06/20 03:28 72 10/06/20 00:00 Mechanical Ventilator Mechanical Ventilator 10/06/20 00:00 98.4 76 28 131/77 (95) 100 10/05/20 23:59 74 10/05/20 23:28 66 26 45 10/05/20 21:04 98.8 10/05/20 20:00 99.7 72 26 125/70 (88) 100 10/05/20 20:00 Mechanical Ventilator Mechanical Ventilator 10/05/20 20:00 45 10/05/20 19:37 61 28 45 10/05/20 19:34 71 10/05/20 16:00 Mechanical Ventilator Mechanical Ventilator 10/05/20 16:00 56 10/05/20 16:00 98.4 65 29 119/65 (83) 100 10/05/20 16:00 45 10/05/20 14:57 78 25 45 Intake and Output 10/05/20 10/06/20 19:00 07:00 Intake Total 960 ml 770 ml Output Total 1550 ml 350 ml Balance -590 ml 420 ml Free Water 240 ml 50 ml Tube Feeding 720 ml 720 ml Output Urine Total 1550 ml 350 ml # Bowel Movements 1 Laboratory Tests 10/06/20 03:30: White Blood Count 7.0, Red Blood Count 2.59L, Hemoglobin 7.4L, Hematocrit 22.1L, Mean Corpuscular Volume 85, Mean Corpuscular Hemoglobin 28.5, Mean Corpuscular Hemoglobin Concent 33.5, Red Cell Distribution Width 14.9H, Platelet Count 226, Mean Platelet Volume 6.4L, Neutrophils (%) (Auto) , Lymphocytes (%) (Auto) , Monocytes (%) (Auto) , Eosinophils (%) (Auto) , Basophils (%) (Auto) , Differential Total Cells Counted 100, Neutrophils % (Manual) 79H, Lymphocytes % (Manual) 12L, Monocytes % (Manual) 7, Eosinophils % (Manual) 2, Basophils % (Manual) 0, Band Neutrophils 0, Platelet Estimate Adequate, Platelet Morphology Normal, Hypochromasia 1+, Anisocytosis 1+, Sodium Level 139, Potassium Level 3.7, Chloride Level 107, Carbon Dioxide Level 31, Anion Gap 2L, Blood Urea Nitrogen 16, Creatinine 0.8, Estimat Glomerular Filtration Rate > 60, Glucose Level 129H, Calcium Level 6.9L, Magnesium Level 2.1, Total Bilirubin 0.2, Aspartate Amino Transf (AST/SGOT) 33, Alanine Aminotransferase (ALT/SGPT) 31, Alkaline Phosphatase 58, Pro-B-Type Natriuretic Peptide [Pending], Total Protein 5.5L, Albumin 1.1L, Globulin 4.4, Albumin/Globulin Ratio 0.2L Height (Feet): 6 Height (Inches): 1.00 Weight (Pounds): 148 Objective Thin WM on vent/trach calm, awake Skin: no hematoma or ecchymosis HEENT NCAT supple, (+) trach coarse ronchi RR, slightly tachy abd soft flat ND, (+) GT no edema Assessment/Plan Status: stable Assessment/Plan: Assessment - resp failure - s/p PEG - anemia - OBS/Dementia - sepsis - diarrhea, C Diff (-) - Azotemia, resolved - CHF - malnutrition , low albumin - leukocytosis - hypernatremia Recommendations -Vent care / support - cards and pulm follow up - supportive care - abx - PPI - TF Deborah Cabrera MD Oct 06, 2020 14:39
--- NOTE | 2020-10-06 14:45 | NUR ---
NURSE NOTES:Patient tolerating transfusion, vitals stable after 15 minutes vitals are HR 77, BP 141/76 and temperature of 99.5. transfusion increased to 125ML/HR.
--- NOTE | 2020-10-06 14:57 | Urology Progress Note ---
Assessment/Plan Status: stable Assessment/Plan: 1. Gross hematuria. 2. Pyuria and possible UTI. 3. Proteinuria. 4. BPH. 5. Urinary retention. 6. Probable neurogenic bladder. 7. Possible sepsis. monitor clinically maintain andrade, secured to pt's leg hand irrigated and do PRN s/p abx flomax and proscar cysto electively voiding trial at some point? Subjective Allergies: Coded Allergies: VANCOMYCIN (Verified Allergy, Severe, hive, 09/28/20) Subjective remains on vent, trach 09/27 Objective Last 24 Hour Vital Signs Date Time Temp Pulse Resp B/P (MAP) Pulse Ox O2 Delivery O2 Flow Rate FiO2 10/06/20 12:00 66 10/06/20 12:00 Mechanical Ventilator Mechanical Ventilator 10/06/20 12:00 99.1 75 24 124/71 (88) 100 10/06/20 11:55 45 10/06/20 08:00 98.4 83 28 129/79 (96) 99 10/06/20 08:00 Mechanical Ventilator Mechanical Ventilator 10/06/20 08:00 45 10/06/20 08:00 71 10/06/20 07:20 71 26 45 10/06/20 04:00 97.9 70 24 123/77 (92) 98 10/06/20 04:00 Mechanical Ventilator Mechanical Ventilator 10/06/20 04:00 45 10/06/20 03:29 67 23 45 10/06/20 03:28 72 10/06/20 00:00 Mechanical Ventilator Mechanical Ventilator 10/06/20 00:00 98.4 76 28 131/77 (95) 100 10/05/20 23:59 74 10/05/20 23:28 66 26 45 10/05/20 21:04 98.8 10/05/20 20:00 99.7 72 26 125/70 (88) 100 10/05/20 20:00 Mechanical Ventilator Mechanical Ventilator 10/05/20 20:00 45 10/05/20 19:37 61 28 45 10/05/20 19:34 71 10/05/20 16:00 Mechanical Ventilator Mechanical Ventilator 10/05/20 16:00 56 10/05/20 16:00 98.4 65 29 119/65 (83) 100 10/05/20 16:00 45 10/05/20 14:57 78 25 45 Intake and Output 10/05/20 10/06/20 19:00 07:00 Intake Total 960 ml 770 ml Output Total 1550 ml 350 ml Balance -590 ml 420 ml Free Water 240 ml 50 ml Tube Feeding 720 ml 720 ml Output Urine Total 1550 ml 350 ml # Bowel Movements 1 Microbiology Date/Time Source Procedure Growth Status 09/24/20 10:50 Nasopharynx SARS-CoV-2 RdRp Gene Assay - Final Complete 09/18/20 18:30 Stool Clostridium difficile Toxin Assay - Final Complete 09/17/20 12:58 Blood Blood Culture - Final NO GROWTH AFTER 5 DAYS Complete 09/10/20 20:05 Urine,Clean Catch Urine Culture - Final NO GROWTH AFTER 48 HOURS Complete 09/10/20 17:15 Rectum VRE Culture - Final Enterococcus Faecalis - Vre Complete Current Medications Medications (Trade) Dose Ordered Sig/Aleksander Route PRN Reason Start Time Stop Time Status Last Admin Dose Admin Acetaminophen (Tylenol) 650 mg Q4H PRN NG Temp >100.5 09/10/20 23:15 10/10/20 23:14 10/05/20 20:34 Al Hydroxide/Mg Hydroxide (Mylanta) 30 ml Q4H PRN NG Constipation 09/11/20 00:15 10/10/20 23:14 Ascorbic Acid (Vitamin C) 250 mg DAILY NG 09/26/20 09:00 10/18/20 08:59 10/06/20 08:54 Diphenhydramine HCl (Benadryl) 25 mg Q6H PRN IVP Itching 09/27/20 12:15 10/27/20 12:14 10/06/20 01:33 Diphenoxylate HCl/ Atropine (Lomotil) 2.5 mg Q4H PRN ORAL Diarrhea 09/20/20 08:15 10/20/20 08:14 Famotidine (Pepcid) 20 mg BID GT 10/04/20 09:00 01/02/21 08:59 10/06/20 08:54 Finasteride (Proscar) 5 mg DAILY ORAL 09/13/20 09:00 12/12/20 08:59 10/06/20 08:54 Furosemide (Lasix) 40 mg DAILY IV 10/03/20 09:00 11/02/20 08:59 10/06/20 08:55 Multivitamins (Multivitamins W/ Minerals 15ml Liquid) 15 ml DAILY NG 09/26/20 09:00 10/26/20 08:59 10/06/20 08:54 Ondansetron HCl (Zofran) 4 mg Q6H PRN IVP Nausea & Vomiting 09/10/20 23:15 10/10/20 23:14 Spironolactone (Aldactone) 25 mg DAILY GT 10/05/20 09:00 11/04/20 08:59 10/06/20 08:54 Tamsulosin HCl (Flomax) 0.4 mg BEDTIME ORAL 09/12/20 21:00 10/12/20 20:59 10/05/20 20:12 Valproic Acid (Depakene) 1,000 mg BEDTIME NG 09/16/20 21:00 10/31/20 20:59 10/05/20 20:12 Zinc Sulfate (Zinc Sulfate) 220 mg DAILY GT 10/06/20 09:00 01/04/21 08:59 10/06/20 08:54 Laboratory Tests 10/06/20 03:30: White Blood Count 7.0, Red Blood Count 2.59L, Hemoglobin 7.4L, Hematocrit 22.1L, Mean Corpuscular Volume 85, Mean Corpuscular Hemoglobin 28.5, Mean Corpuscular Hemoglobin Concent 33.5, Red Cell Distribution Width 14.9H, Platelet Count 226, Mean Platelet Volume 6.4L, Neutrophils (%) (Auto) , Lymphocytes (%) (Auto) , Monocytes (%) (Auto) , Eosinophils (%) (Auto) , Basophils (%) (Auto) , Differential Total Cells Counted 100, Neutrophils % (Manual) 79H, Lymphocytes % (Manual) 12L, Monocytes % (Manual) 7, Eosinophils % (Manual) 2, Basophils % (Manual) 0, Band Neutrophils 0, Platelet Estimate Adequate, Platelet Morphology Normal, Hypochromasia 1+, Anisocytosis 1+, Sodium Level 139, Potassium Level 3.7, Chloride Level 107, Carbon Dioxide Level 31, Anion Gap 2L, Blood Urea Nitrogen 16, Creatinine 0.8, Estimat Glomerular Filtration Rate > 60, Glucose Level 129H, Calcium Level 6.9L, Magnesium Level 2.1, Total Bilirubin 0.2, Aspartate Amino Transf (AST/SGOT) 33, Alanine Aminotransferase (ALT/SGPT) 31, Alkaline Phosphatase 58, Pro-B-Type Natriuretic Peptide [Pending], Total Protein 5.5L, Albumin 1.1L, Globulin 4.4, Albumin/Globulin Ratio 0.2L Height (Feet): 6 Height (Inches): 1.00 Weight (Pounds): 148 Objective exam stable urine clearing Levi Brunson MD Oct 06, 2020 14:57
[2020-10-06 16:00] VITALS: BP 117/77
--- NOTE | 2020-10-06 17:33 | NUR ---
NURSE NOTES:attempted to upload pictures more than 5 times, unable to upload pictures. when assigning form ID patient is not showing up in the system.
--- NOTE | 2020-10-06 18:13 | Surgery Progress Note ---
Surgery Progress Note Subjective Procedure Performed tracheostomy Symptoms: improved, tolerating diet, passing flatus Objective Last 24 Hour Vital Signs Date Time Temp Pulse Resp B/P (MAP) Pulse Ox O2 Delivery O2 Flow Rate FiO2 10/06/20 16:00 69 10/06/20 16:00 98.8 87 24 117/77 (90) 100 10/06/20 16:00 45 10/06/20 16:00 Mechanical Ventilator Mechanical Ventilator 10/06/20 15:10 78 34 45 10/06/20 12:00 66 10/06/20 12:00 Mechanical Ventilator Mechanical Ventilator 10/06/20 12:00 99.1 75 24 124/71 (88) 100 10/06/20 11:55 45 10/06/20 11:05 66 24 96 Mechanical Ventilator 45 10/06/20 11:05 66 24 45 10/06/20 08:00 98.4 83 28 129/79 (96) 99 10/06/20 08:00 Mechanical Ventilator Mechanical Ventilator 10/06/20 08:00 45 10/06/20 08:00 71 10/06/20 07:20 71 26 45 10/06/20 04:00 97.9 70 24 123/77 (92) 98 10/06/20 04:00 Mechanical Ventilator Mechanical Ventilator 10/06/20 04:00 45 10/06/20 03:29 67 23 45 10/06/20 03:28 72 10/06/20 00:00 Mechanical Ventilator Mechanical Ventilator 10/06/20 00:00 98.4 76 28 131/77 (95) 100 10/05/20 23:59 74 10/05/20 23:28 66 26 45 10/05/20 21:04 98.8 10/05/20 20:00 99.7 72 26 125/70 (88) 100 10/05/20 20:00 Mechanical Ventilator Mechanical Ventilator 10/05/20 20:00 45 10/05/20 19:37 61 28 45 10/05/20 19:34 71 I&O Intake and Output 10/05/20 10/06/20 19:00 07:00 Intake Total 960 ml 770 ml Output Total 1550 ml 350 ml Balance -590 ml 420 ml Free Water 240 ml 50 ml Tube Feeding 720 ml 720 ml Output Urine Total 1550 ml 350 ml # Bowel Movements 1 Dressing: saturated Cardiovascular: RSR Respiratory: decreased breath sounds Abdomen: non-tender, present bowel sounds Extremities: no tenderness, no cyanosis Laboratory Tests Test 10/06/20 03:30 White Blood Count 7.0 K/UL (4.8-10.8) Red Blood Count 2.59 M/UL (4.70-6.10) L Hemoglobin 7.4 G/DL (14.2-18.0) L Hematocrit 22.1 % (42.0-52.0) L Mean Corpuscular Volume 85 FL (80-99) Mean Corpuscular Hemoglobin 28.5 PG (27.0-31.0) Mean Corpuscular Hemoglobin Concent 33.5 G/DL (32.0-36.0) Red Cell Distribution Width 14.9 % (11.6-14.8) H Platelet Count 226 K/UL (150-450) Mean Platelet Volume 6.4 FL (6.5-10.1) L Neutrophils (%) (Auto) % (45.0-75.0) Lymphocytes (%) (Auto) % (20.0-45.0) Monocytes (%) (Auto) % (1.0-10.0) Eosinophils (%) (Auto) % (0.0-3.0) Basophils (%) (Auto) % (0.0-2.0) Differential Total Cells Counted 100 Neutrophils % (Manual) 79 % (45-75) H Lymphocytes % (Manual) 12 % (20-45) L Monocytes % (Manual) 7 % (1-10) Eosinophils % (Manual) 2 % (0-3) Basophils % (Manual) 0 % (0-2) Band Neutrophils 0 % (0-8) Platelet Estimate Adequate Platelet Morphology Normal Hypochromasia 1+ Anisocytosis 1+ Sodium Level 139 MMOL/L (136-145) Potassium Level 3.7 MMOL/L (3.5-5.1) Chloride Level 107 MMOL/L (98-107) Carbon Dioxide Level 31 MMOL/L (21-32) Anion Gap 2 mmol/L (5-15) L Blood Urea Nitrogen 16 mg/dL (7-18) Creatinine 0.8 MG/DL (0.55-1.30) Estimat Glomerular Filtration Rate > 60 mL/min (>60) Glucose Level 129 MG/DL (74-106) H Calcium Level 6.9 MG/DL (8.5-10.1) L Magnesium Level 2.1 MG/DL (1.8-2.4) Total Bilirubin 0.2 MG/DL (0.2-1.0) Aspartate Amino Transf (AST/SGOT) 33 U/L (15-37) Alanine Aminotransferase (ALT/SGPT) 31 U/L (12-78) Alkaline Phosphatase 58 U/L (46-116) Pro-B-Type Natriuretic Peptide Pending Total Protein 5.5 G/DL (6.4-8.2) L Albumin 1.1 G/DL (3.4-5.0) L Globulin 4.4 g/dL Albumin/Globulin Ratio 0.2 (1.0-2.7) L Plan Problems: (1) Fever Assessment & Plan: maybe developing pneumonia cont abx pulm input thank you (2) Decubitus skin ulcer Assessment & Plan: Patient identified on admission to have multiple scabs on the left arm. mild open scabs with eschar. no drainage. no significant cellulitis. bruising no bilateral extremities noted. no signs of abuse. likely from agitation Sacral coccygeal noted to have a DTI 4.3X2.5CM. which is dark purple . RECOMMEND-CLEAN WITH SALINE, PAT DRY AND APPLY CALAZINE. COVER WITH OPTIFOAM DRESSING. REPLACE EVERY 3 DAYS OR NEEDED LEFT ISCHIUM- STAGE I PRESSURE ULCER MEASURES 4.5X1.7CM. NON-BLANCHABLE ERYT ANGEL. RECOMMEND- APPLY CALAZINE AND COVER WITH OPTIFOAM DRESSING. REPLACE EVERY 7 DAYS. 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 Roman is a 70 year old [place] [facility] [place] 14:00 due to fever. He was found to be hypotensive 91/55 (67), Temp: 100.0, leukocytosis 20.8k and subsequently transferred to ICU for septic shock. The blood culture is reportedly positive for gram positive cocci. NG tube was placed, KUB confirmed the placement to day. Pt is clinically stable with leukocytosis 20.1, improved BUN and creatine, stable hemodynamic without vasopressor. Findings: Mr. Roman is disoriented. He does ot follow commands at this time. Oral cavity is noted to be dried blood concretion likely from NG trauma. No active bleeding site is seen. Due to his level f alertness, already NG tube is in placed, PO trial was not done at this time. Transferred out ICU last night. He is non on tele. Issues: multiple wounds, s.p balaji/nasal/pharyngeal bleeding with blood culture Gram positive cocci leukocytosis trending down from 20k-20k-16k BUN/Creatine trending down from 93/1.9-79/1.3-54/1.1 Temp: 98.1~98.7, Pulse: 62~72, BP: 105/67~120/48, SPO2 98~100% on 2 liter S: Oral cavity is better condition comparison to yesterday. The mucosa is severely erythema without active bleeding. Limited level of alertness for direct therapy. NG in placed O: 1. Laryngeal palpation to trigger spontaneous cough and swallow: Pt triggered cough with laryngeal palpation. Approximately 5~10 seconds after coughing, he triggered swallow. based on this observation, he presents with copious secretion in pharynx and larynx. He continued to have poor secretion management at laryngeal level at this time. NO PO trial was given due to poor secretion at the level of air way with low level of alertness. A: 1. Probable aspiration of his own secretion with poor ability to cough and swallow 2. Dysphagia P: 1. NPO for now 2. Observe his secretion, and level of alertness for PO readiness. DAILY ESTIMATED NEEDS: Needs based on Wound, underweight/ 55kg 30-35 kcals/kg 5113-6467 total kcals 1.25-2 g protein/kg 69-110 g total protein 25-30 mL/kg 5304-1717 total fluid mLs NUTRITION DIAGNOSIS: Increased kcal/prot needs R/T wound healing and underweight status as evidenced by pt admitted w/ wounds including DTI 2 coccyx and stage 1 @ lt ischium, pt @ 73% IBW w/ low BMI per guidelines, s/p NGT insertion, on NGT feeds. CURRENT TF:Jevity 1.2 @ 50ml/hr x 24 hrs ENTERAL NUTRITION RECOMMENDATIONS: Jevity 1.2 @ 60ml/hr x 24 hrs to provide 1440ml, 1728kcal, 80g prot, 1160ml free water * As medically appropriate, increase goal rate to 60ml/hr x 24 hrs to meet 100% est kcal/prot needs * HOB over 30 degrees/ without IVF, H2O flush of 100ml q 8hrs ADDITIONAL RECOMMENDATIONS: * Calibrated daily bedscale wt Per SNF: HT=70" * Wound healing: TF rec @ goal will provide 100% RDI add Vit C 250mg QD, ZnSO4 220mg QD x 10days, Davidson BID via NGT * Monitor BGs, need for NISS w/ TF * Monitor lytes, replete as needed- high risk for refeeding syndrome -> check f/up phos and mag (4) Severe sepsis Assessment & Plan: will likely need trach and peg. patient needs protected airway and nutrition full code no family and unable to consent medically necessary. will plan soon (5) Open upper arm wound (6) Hematuria Assessment & Plan: as per urology Aubrey Gutierrez Oct 06, 2020 18:13
--- NOTE | 2020-10-06 18:52 | General Progress Note ---
Subjective ROS Limited/Unobtainable: Yes Allergies: Coded Allergies: VANCOMYCIN (Verified Allergy, Severe, hive, 09/28/20) Subjective on vent contracted trach placed oxygenation noted in ASTER anemic and ordered transfusion Objective Last 24 Hour Vital Signs Date Time Temp Pulse Resp B/P (MAP) Pulse Ox O2 Delivery O2 Flow Rate FiO2 10/06/20 18:45 79 32 45 10/06/20 16:00 69 10/06/20 16:00 98.8 87 24 117/77 (90) 100 10/06/20 16:00 45 10/06/20 16:00 Mechanical Ventilator Mechanical Ventilator 10/06/20 15:10 78 34 45 10/06/20 12:00 66 10/06/20 12:00 Mechanical Ventilator Mechanical Ventilator 10/06/20 12:00 99.1 75 24 124/71 (88) 100 10/06/20 11:55 45 10/06/20 11:05 66 24 96 Mechanical Ventilator 45 10/06/20 11:05 66 24 45 10/06/20 08:00 98.4 83 28 129/79 (96) 99 10/06/20 08:00 Mechanical Ventilator Mechanical Ventilator 10/06/20 08:00 45 10/06/20 08:00 71 10/06/20 07:20 71 26 45 10/06/20 04:00 97.9 70 24 123/77 (92) 98 10/06/20 04:00 Mechanical Ventilator Mechanical Ventilator 10/06/20 04:00 45 10/06/20 03:29 67 23 45 10/06/20 03:28 72 10/06/20 00:00 Mechanical Ventilator Mechanical Ventilator 10/06/20 00:00 98.4 76 28 131/77 (95) 100 10/05/20 23:59 74 10/05/20 23:28 66 26 45 10/05/20 21:04 98.8 10/05/20 20:00 99.7 72 26 125/70 (88) 100 10/05/20 20:00 Mechanical Ventilator Mechanical Ventilator 10/05/20 20:00 45 10/05/20 19:37 61 28 45 10/05/20 19:34 71 Intake and Output 10/05/20 10/06/20 19:00 07:00 Intake Total 960 ml 770 ml Output Total 1550 ml 350 ml Balance -590 ml 420 ml Free Water 240 ml 50 ml Tube Feeding 720 ml 720 ml Output Urine Total 1550 ml 350 ml # Bowel Movements 1 Laboratory Tests 10/06/20 03:30: White Blood Count 7.0, Red Blood Count 2.59L, Hemoglobin 7.4L, Hematocrit 22.1L, Mean Corpuscular Volume 85, Mean Corpuscular Hemoglobin 28.5, Mean Corpuscular Hemoglobin Concent 33.5, Red Cell Distribution Width 14.9H, Platelet Count 226, Mean Platelet Volume 6.4L, Neutrophils (%) (Auto) , Lymphocytes (%) (Auto) , Monocytes (%) (Auto) , Eosinophils (%) (Auto) , Basophils (%) (Auto) , Differential Total Cells Counted 100, Neutrophils % (Manual) 79H, Lymphocytes % (Manual) 12L, Monocytes % (Manual) 7, Eosinophils % (Manual) 2, Basophils % (Manual) 0, Band Neutrophils 0, Platelet Estimate Adequate, Platelet Morphology Normal, Hypochromasia 1+, Anisocytosis 1+, Sodium Level 139, Potassium Level 3.7, Chloride Level 107, Carbon Dioxide Level 31, Anion Gap 2L, Blood Urea Nitrogen 16, Creatinine 0.8, Estimat Glomerular Filtration Rate > 60, Glucose Level 129H, Calcium Level 6.9L, Magnesium Level 2.1, Total Bilirubin 0.2, Aspartate Amino Transf (AST/SGOT) 33, Alanine Aminotransferase (ALT/SGPT) 31, Alkaline Phosphatase 58, Pro-B-Type Natriuretic Peptide [Pending], Total Protein 5.5L, Albumin 1.1L, Globulin 4.4, Albumin/Globulin Ratio 0.2L Height (Feet): 6 Height (Inches): 1.00 Weight (Pounds): 148 Objective WDWN chronically ill trach in place feeding tube in place reduced breath sounds bilaterally with scattered rhonchi [id number] without MRG NABS nontender no CCE nonfocal poor LOC Assessment/Plan Status: stable Assessment/Plan: IMPRESSION: 1. Acute renal failure. 2. Hypernatremia. 3. Leukocytosis. 4. Possible sepsis. 5. Hypotension. 6. Dementia. 7. Acute on chronic encephalopathy. 8. bcx staph Epi 9. MRSA colonized 10. acute hypoxemic respiratory failure 11. atelectasis/collapse 12. leukocytosis 13. trach PLAN follow up HH post transfusion taper fio2 ID noted; monitor follow up on antibiotics monitor oxygen needs vent support full for now off load as able monitor lytes position change monitor imaging d/w consultants and nursing remains critical trach care dc plan to subacute in am if stable impression, plan, and exam edited and reviewed in detail care discussed with Patel Tesfaye MD Oct 06, 2020 18:52
--- NOTE | 2020-10-06 19:15 | NUR ---
NURSE NOTES: Received report from ARTEMIO Hemphill. Patient asleep in bed, afebrile, responds to tactile stimulation and no respiratory distress noted.SR on 5 personnel monitor. trache to vent shiley 8, AC 12 TV 450, FiO2 45 % and PEEP 7 saturating at 98-99%.on jevity at 60cc/hr goal infusing well, no residual and sediment noted. With Right AC 20 G and right hand 20g IV lines intact, patent and asymptomatic. with FC to urine bag draining sky yellow urine Needs were attended. Bed rails are up,padded and wheels are locked. Continue to monitor the patient.
--- NOTE | 2020-10-06 19:31 | NUR ---
NURSE HAND-OFF REPORT: Important Events on Shift:Patient received 1 unit of PRBC's Patient Status: Diet: Jevity 1.2@60ML/HR Pending Orders: Pending Results/Labs: Pending MD notification: Latest Vital Signs: Temperature 98.8 , Pulse 79 , B/P 117 /77 , Respiratory Rate 32 , O2 SAT 100 , Mechanical Ventilator, O2 Flow Rate 45.0 . Vital Sign Comment: EKG Rhythm: Sinus Rhythm Rhythm change?: N Notified?: N -Dr Jacklyn BENITEZ Response: No New Orders Received Latest Schultz Fall Score: 70 Fall Risk: High Risk Safety Measures: Call light Within Reach, Bed Alarm Zone 1, Side Rails Side Rails x3, Bed position Low and Locked. Fall Precautions: Yellow Socks Door Sign Patient Fall Education Report given to ROBERTRN
[2020-10-06 20:00] VITALS: BP 120/66
[2020-10-06] MEDS: Tamsulosin 0.4mg cap ORAL SCH (20:59)
[2020-10-06] MEDS: Valproic Acid 250mg/5ml Liquid GT SCH (21:00)
[2020-10-07] VITALS: BP 116/68
[2020-10-07] MEDS: Acetaminophen 650mg/20.3ml NG PRN (00:23)
--- NOTE | 2020-10-07 00:23 | NUR ---
NURSE NOTES: Received report from ARTEMIO Zaman. 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 trache to vent shiley 8, AC 12 TV 450, FiO2 45 % and PEEP 7 saturating at 98-99%.on jevity at 60cc/hr goal infusing well, no residual and sediment noted. With Right AC 20 G and right hand 20g IV lines intact, patent and asymptomatic. with FC to urine bag draining sky yellow urine Needs were attended. Bed rails are up,padded and wheels are locked. Continue to monitor the patient.
--- NOTE | 2020-10-07 01:52 | Cardiology Progress Note ---
Subjective DATE OF SERVICE: Oct 06, 2020 Remains on vent via trach, requiring 40-50% oxygen delivery. Remains congested; less edematous. BP remains mostly controlled. Monitor: sinus/ sinus tachycardia. Objective Last 24 Hour Vital Signs Date Time Temp Pulse Resp B/P (MAP) Pulse Ox O2 Delivery O2 Flow Rate FiO2 10/07/20 00:23 75 10/07/20 00:00 45 10/07/20 00:00 Mechanical Ventilator Mechanical Ventilator 10/07/20 00:00 100.6 78 24 116/68 (84) 100 10/06/20 22:41 79 31 45 10/06/20 20:00 Mechanical Ventilator Mechanical Ventilator 10/06/20 20:00 45 10/06/20 20:00 98.3 70 24 120/66 (84) 100 10/06/20 19:36 88 10/06/20 18:45 79 32 45 10/06/20 16:00 69 10/06/20 16:00 98.8 87 24 117/77 (90) 100 10/06/20 16:00 45 10/06/20 16:00 Mechanical Ventilator Mechanical Ventilator 10/06/20 15:10 78 34 45 10/06/20 12:00 66 10/06/20 12:00 Mechanical Ventilator Mechanical Ventilator 10/06/20 12:00 99.1 75 24 124/71 (88) 100 10/06/20 11:55 45 10/06/20 11:05 66 24 96 Mechanical Ventilator 45 10/06/20 11:05 66 24 45 10/06/20 08:00 98.4 83 28 129/79 (96) 99 10/06/20 08:00 Mechanical Ventilator Mechanical Ventilator 10/06/20 08:00 45 10/06/20 08:00 71 10/06/20 07:20 71 26 45 10/06/20 04:00 97.9 70 24 123/77 (92) 98 10/06/20 04:00 Mechanical Ventilator Mechanical Ventilator 10/06/20 04:00 45 10/06/20 03:29 67 23 45 10/06/20 03:28 72 ROS: no change from my evaluation of 09/10/20. HEENT: Mechanically Ventilated, Thin Trach secretions RHYTHM: NSR, ST LUNGS: bilat. rhonchi and rales, trach site clean CARDIAC: normal rate, regular rhythm, normal S1 and S2 ABDOMEN: normal bowel sounds, soft, other - sacral decub EXTREMITIES: +1 edema Laboratory Tests Test 10/06/20 03:30 White Blood Count 7.0 K/UL (4.8-10.8) Red Blood Count 2.59 M/UL (4.70-6.10) L Hemoglobin 7.4 G/DL (14.2-18.0) L Hematocrit 22.1 % (42.0-52.0) L Mean Corpuscular Volume 85 FL (80-99) Mean Corpuscular Hemoglobin 28.5 PG (27.0-31.0) Mean Corpuscular Hemoglobin Concent 33.5 G/DL (32.0-36.0) Red Cell Distribution Width 14.9 % (11.6-14.8) H Platelet Count 226 K/UL (150-450) Mean Platelet Volume 6.4 FL (6.5-10.1) L Neutrophils (%) (Auto) % (45.0-75.0) Lymphocytes (%) (Auto) % (20.0-45.0) Monocytes (%) (Auto) % (1.0-10.0) Eosinophils (%) (Auto) % (0.0-3.0) Basophils (%) (Auto) % (0.0-2.0) Differential Total Cells Counted 100 Neutrophils % (Manual) 79 % (45-75) H Lymphocytes % (Manual) 12 % (20-45) L Monocytes % (Manual) 7 % (1-10) Eosinophils % (Manual) 2 % (0-3) Basophils % (Manual) 0 % (0-2) Band Neutrophils 0 % (0-8) Platelet Estimate Adequate Platelet Morphology Normal Hypochromasia 1+ Anisocytosis 1+ Sodium Level 139 MMOL/L (136-145) Potassium Level 3.7 MMOL/L (3.5-5.1) Chloride Level 107 MMOL/L (98-107) Carbon Dioxide Level 31 MMOL/L (21-32) Anion Gap 2 mmol/L (5-15) L Blood Urea Nitrogen 16 mg/dL (7-18) Creatinine 0.8 MG/DL (0.55-1.30) Estimat Glomerular Filtration Rate > 60 mL/min (>60) Glucose Level 129 MG/DL (74-106) H Calcium Level 6.9 MG/DL (8.5-10.1) L Magnesium Level 2.1 MG/DL (1.8-2.4) Total Bilirubin 0.2 MG/DL (0.2-1.0) Aspartate Amino Transf (AST/SGOT) 33 U/L (15-37) Alanine Aminotransferase (ALT/SGPT) 31 U/L (12-78) Alkaline Phosphatase 58 U/L (46-116) Pro-B-Type Natriuretic Peptide Pending Total Protein 5.5 G/DL (6.4-8.2) L Albumin 1.1 G/DL (3.4-5.0) L Globulin 4.4 g/dL Albumin/Globulin Ratio 0.2 (1.0-2.7) L Assessment/Plan Assessment/Plan Respiratory failure with hypoxia - s/p tracheostomy Sepsis Leukocytosis Aspiration PNA Recurring shock Diarrhea Dehydration/hypernatremia corrected Acute myocardial ischemia Acute renal failure HC assoc PNA UTI Transaminitis, acute CVA/dementia Paroxysmal sinus bradycardia and tachycardia Acute diastolic CHF Severe protein/calorie malnutrition with dysphagia; now s/p PEG Hypokalemia Remains CRITICAL & GUARDED Vent support with trach care. Antimicrobials per ID. Replace lytes as needed. DVT prophyl Cardiac monitoring Diuresis based on clinical parameters; aldactone to spare potassium loss. Will monitor lytes, and trend BNP. Madi Rios MD Oct 07, 2020 01:52
[2020-10-07 04:00] VITALS: BP 127/78
--- NOTE | 2020-10-07 06:32 | General Progress Note ---
Subjective ROS Limited/Unobtainable: Yes Allergies: Coded Allergies: VANCOMYCIN (Verified Allergy, Severe, hive, 09/28/20) Subjective on vent contracted trach placed oxygenation noted in ASTER Objective Last 24 Hour Vital Signs Date Time Temp Pulse Resp B/P (MAP) Pulse Ox O2 Delivery O2 Flow Rate FiO2 10/07/20 04:00 98.4 65 24 127/78 (94) 100 10/07/20 04:00 45 10/07/20 04:00 Mechanical Ventilator Mechanical Ventilator 10/07/20 03:23 67 10/07/20 02:41 74 29 45 10/07/20 00:53 99.1 10/07/20 00:23 75 10/07/20 00:00 45 10/07/20 00:00 Mechanical Ventilator Mechanical Ventilator 10/07/20 00:00 100.6 78 24 116/68 (84) 100 10/06/20 22:41 79 31 45 10/06/20 20:00 Mechanical Ventilator Mechanical Ventilator 10/06/20 20:00 45 10/06/20 20:00 98.3 70 24 120/66 (84) 100 10/06/20 19:36 88 10/06/20 18:45 79 32 45 10/06/20 16:00 69 10/06/20 16:00 98.8 87 24 117/77 (90) 100 10/06/20 16:00 45 10/06/20 16:00 Mechanical Ventilator Mechanical Ventilator 10/06/20 15:10 78 34 45 10/06/20 12:00 66 10/06/20 12:00 Mechanical Ventilator Mechanical Ventilator 10/06/20 12:00 99.1 75 24 124/71 (88) 100 10/06/20 11:55 45 10/06/20 11:05 66 24 96 Mechanical Ventilator 45 10/06/20 11:05 66 24 45 10/06/20 08:00 98.4 83 28 129/79 (96) 99 10/06/20 08:00 Mechanical Ventilator Mechanical Ventilator 10/06/20 08:00 45 10/06/20 08:00 71 10/06/20 07:20 71 26 45 Intake and Output 10/06/20 10/07/20 19:00 07:00 Intake Total 1020 ml 640 ml Output Total 2000 ml Balance -980 ml 640 ml Free Water 300 ml 100 ml Tube Feeding 720 ml 540 ml Output Urine Total 2000 ml Height (Feet): 6 Height (Inches): 1.00 Weight (Pounds): 148 Objective WDWN chronically ill trach in place feeding tube in place reduced breath sounds bilaterally with scattered rhonchi [id number] without MRG NABS nontender no CCE nonfocal poor LOC Assessment/Plan Status: stable Assessment/Plan: IMPRESSION: 1. Acute renal failure. 2. Hypernatremia. 3. Leukocytosis. 4. Possible sepsis. 5. Hypotension. 6. Dementia. 7. Acute on chronic encephalopathy. 8. bcx staph Epi 9. MRSA colonized 10. acute hypoxemic respiratory failure 11. atelectasis/collapse 12. leukocytosis 13. trach PLAN follow up HH post transfusion taper fio2 ID noted; monitor follow up on antibiotics monitor oxygen needs vent support full for now off load as able monitor lytes position change monitor imaging d/w consultants and nursing remains critical trach care dc plan to subacute impression, plan, and exam edited and reviewed in detail care discussed with Patel Tesfaye MD Oct 07, 2020 06:32
--- NOTE | 2020-10-07 07:15 | NUR ---
NURSE HAND-OFF REPORT: Important Events on Shift: none Patient Status: stable Diet: jevity at 60cc/hr Pending Orders: n Pending Results/Labs:n Pending MD notification:n Latest Vital Signs: Temperature 98.4 , Pulse 65 , B/P 127 /78 , Respiratory Rate 24 , O2 SAT 100 , Mechanical Ventilator, O2 Flow Rate 45.0 . Vital Sign Comment: n EKG Rhythm: Sinus Rhythm Rhythm change?: N MD Notified?: N -Dr Jacklyn BENITEZ Response: No New Orders Received Latest Schultz Fall Score: 70 Fall Risk: High Risk Safety Measures: Call light Within Reach, Bed Alarm Zone 1, Side Rails Side Rails x3, Bed position Low and Locked. Fall Precautions: Yellow Socks Door Sign Patient Fall Education Report given to ARTEMIO oliver.
[2020-10-07 07:56] VITALS: BP 125/74
--- NOTE | 2020-10-07 08:39 | NUR ---
NURSE NOTES: Oral Care provided. Oral Suction Provided and White Sputum Removed. No SOB.
[2020-10-07] MEDS: Spironolactone 25mg tab GT SCH (08:49)
[2020-10-07] MEDS: Multivitamins W/Minerals 15 ML UDC NG SCH (08:49)
[2020-10-07] MEDS: Zinc Sulfate 220mg GT SCH (08:50)
[2020-10-07] MEDS: Ascorbic Acid 500mg tab NG SCH (08:50)
[2020-10-07] MEDS: DiphenhydrAMINE 50mg/ml Inj IVP PRN ×2 (09:14→20:47)
--- NOTE | 2020-10-07 10:54 | Urology Progress Note ---
Assessment/Plan Status: stable Assessment/Plan: 1. Gross hematuria. 2. Pyuria and possible UTI. 3. Proteinuria. 4. BPH. 5. Urinary retention. 6. Probable neurogenic bladder. 7. Possible sepsis. monitor clinically maintain andrade, secured to pt's leg hand irrigated and do PRN s/p abx flomax and proscar cysto electively voiding trial at some point? Subjective Allergies: Coded Allergies: VANCOMYCIN (Verified Allergy, Severe, hive, 09/28/20) Subjective remains on vent, trach 09/27 Objective Last 24 Hour Vital Signs Date Time Temp Pulse Resp B/P (MAP) Pulse Ox O2 Delivery O2 Flow Rate FiO2 10/07/20 08:00 67 10/07/20 07:56 45 10/07/20 07:56 98.1 70 24 125/74 (91) 100 10/07/20 07:56 Mechanical Ventilator Mechanical Ventilator 10/07/20 07:15 60 20 45 10/07/20 04:00 98.4 65 24 127/78 (94) 100 10/07/20 04:00 45 10/07/20 04:00 Mechanical Ventilator Mechanical Ventilator 10/07/20 03:23 67 10/07/20 02:41 74 29 45 10/07/20 00:53 99.1 10/07/20 00:23 75 10/07/20 00:00 45 10/07/20 00:00 Mechanical Ventilator Mechanical Ventilator 10/07/20 00:00 100.6 78 24 116/68 (84) 100 10/06/20 22:41 79 31 45 10/06/20 20:00 Mechanical Ventilator Mechanical Ventilator 10/06/20 20:00 45 10/06/20 20:00 98.3 70 24 120/66 (84) 100 10/06/20 19:36 88 10/06/20 18:45 79 32 45 10/06/20 16:00 69 10/06/20 16:00 98.8 87 24 117/77 (90) 100 10/06/20 16:00 45 10/06/20 16:00 Mechanical Ventilator Mechanical Ventilator 10/06/20 15:10 78 34 45 10/06/20 12:00 66 10/06/20 12:00 Mechanical Ventilator Mechanical Ventilator 10/06/20 12:00 99.1 75 24 124/71 (88) 100 10/06/20 11:55 45 12/19/20 11:05 66 24 96 Mechanical Ventilator 45 10/06/20 11:05 66 24 45 Intake and Output 10/06/20 10/07/20 19:00 07:00 Intake Total 1020 ml 820 ml Output Total 2000 ml 950 ml Balance -980 ml -130 ml Free Water 300 ml 100 ml Tube Feeding 720 ml 720 ml Output Urine Total 2000 ml 950 ml Microbiology Date/Time Source Procedure Growth Status 09/24/20 10:50 Nasopharynx SARS-CoV-2 RdRp Gene Assay - Final Complete 09/18/20 18:30 Stool Clostridium difficile Toxin Assay - Final Complete 09/17/20 12:58 Blood Blood Culture - Final NO GROWTH AFTER 5 DAYS Complete 09/10/20 20:05 Urine,Clean Catch Urine Culture - Final NO GROWTH AFTER 48 HOURS Complete 09/10/20 17:15 Rectum VRE Culture - Final Enterococcus Faecalis - Vre Complete Current Medications Medications (Trade) Dose Ordered Sig/Aleksander Route PRN Reason Start Time Stop Time Status Last Admin Dose Admin Acetaminophen (Tylenol) 650 mg Q4H PRN NG Temp >100.5 09/10/20 23:15 10/10/20 23:14 10/07/20 00:23 Al Hydroxide/Mg Hydroxide (Mylanta) 30 ml Q4H PRN NG Constipation 09/11/20 00:15 10/10/20 23:14 Ascorbic Acid (Vitamin C) 250 mg DAILY NG 09/26/20 09:00 10/18/20 08:59 10/07/20 08:50 Diphenhydramine HCl (Benadryl) 25 mg Q6H PRN IVP Itching 09/27/20 12:15 10/27/20 12:14 10/07/20 09:14 Diphenoxylate HCl/ Atropine (Lomotil) 2.5 mg Q4H PRN ORAL Diarrhea 09/20/20 08:15 10/20/20 08:14 Famotidine (Pepcid) 20 mg BID GT 10/04/20 09:00 01/02/21 08:59 10/07/20 08:49 Finasteride (Proscar) 5 mg DAILY ORAL 09/13/20 09:00 12/12/20 08:59 10/07/20 08:49 Furosemide (Lasix) 40 mg DAILY IV 10/03/20 09:00 11/02/20 08:59 10/07/20 08:49 Multivitamins (Multivitamins W/ Minerals 15ml Liquid) 15 ml DAILY NG 09/26/20 09:00 10/26/20 08:59 10/07/20 08:49 Ondansetron HCl (Zofran) 4 mg Q6H PRN IVP Nausea & Vomiting 09/10/20 23:15 10/10/20 23:14 Spironolactone (Aldactone) 25 mg DAILY GT 10/05/20 09:00 11/04/20 08:59 10/07/20 08:49 Tamsulosin HCl (Flomax) 0.4 mg BEDTIME ORAL 09/12/20 21:00 10/12/20 20:59 10/06/20 20:59 Valproic Acid (Depakene) 1,000 mg BEDTIME GT 10/06/20 21:00 10/31/20 20:59 10/06/20 21:00 Zinc Sulfate (Zinc Sulfate) 220 mg DAILY GT 10/06/20 09:00 01/04/21 08:59 10/07/20 08:50 Height (Feet): 6 Height (Inches): 1.00 Weight (Pounds): 148 Objective exam stable urine clearing Levi Brunson MD Oct 07, 2020 10:54
--- NOTE | 2020-10-07 10:55 | NUR ---
NURSE NOTES: Received report from ARTEMIO JONES. Pt is A/O x0 and cannot follow. Pt does respond to tactile stimulation. Corporate Safety Manager shows SR at 72. Trach to vent is Shiley 8, AC 12 TV 450, FiO2 45 % and PEEP 7 saturating well. No pain noted. Pt is on Jevity at 60cc/hr and infusing well. Flushed after no residual noted. Pt has RAC 20G and RH 20G IV site which is intact, patent and asymptomatic. Pt has FC which is draining dark sky yellow urine. Bed side rails x 3 and in up position, and side rails which are padded for precautions and locked. Will continue plan of care.
[2020-10-07 12:00] VITALS: BP 110/68
--- NOTE | 2020-10-07 12:07 | Surgery Progress Note ---
Surgery Progress Note Subjective Procedure Performed tracheostomy Symptoms: improved, tolerating diet, passing flatus Objective Last 24 Hour Vital Signs Date Time Temp Pulse Resp B/P (MAP) Pulse Ox O2 Delivery O2 Flow Rate FiO2 10/07/20 08:00 67 10/07/20 07:56 45 10/07/20 07:56 98.1 70 24 125/74 (91) 100 10/07/20 07:56 Mechanical Ventilator Mechanical Ventilator 10/07/20 07:15 60 20 45 10/07/20 04:00 98.4 65 24 127/78 (94) 100 10/07/20 04:00 45 10/07/20 04:00 Mechanical Ventilator Mechanical Ventilator 10/07/20 03:23 67 10/07/20 02:41 74 29 45 10/07/20 00:53 99.1 10/07/20 00:23 75 10/07/20 00:00 45 10/07/20 00:00 Mechanical Ventilator Mechanical Ventilator 10/07/20 00:00 100.6 78 24 116/68 (84) 100 10/06/20 22:41 79 31 45 10/06/20 20:00 Mechanical Ventilator Mechanical Ventilator 10/06/20 20:00 45 10/06/20 20:00 98.3 70 24 120/66 (84) 100 10/06/20 19:36 88 10/06/20 18:45 79 32 45 10/06/20 16:00 69 10/06/20 16:00 98.8 87 24 117/77 (90) 100 10/06/20 16:00 45 10/06/20 16:00 Mechanical Ventilator Mechanical Ventilator 10/06/20 15:10 78 34 45 I&O Intake and Output 10/06/20 10/07/20 19:00 07:00 Intake Total 1020 ml 820 ml Output Total 2000 ml 950 ml Balance -980 ml -130 ml Free Water 300 ml 100 ml Tube Feeding 720 ml 720 ml Output Urine Total 2000 ml 950 ml Dressing: saturated Cardiovascular: RSR Respiratory: decreased breath sounds Abdomen: non-tender, present bowel sounds, non-distended Extremities: no edema, no tenderness, no cyanosis Plan Problems: (1) Fever Assessment & Plan: maybe developing pneumonia cont abx pulm input thank you (2) Decubitus skin ulcer Assessment & Plan: Patient identified on admission to have multiple scabs on the left arm. mild open scabs with eschar. no drainage. no significant cellulitis. bruising no bilateral extremities noted. no signs of abuse. likely from agitation Sacral coccygeal noted to have a DTI 4.3X2.5CM. which is dark purple . RECOMMEND-CLEAN WITH SALINE, PAT DRY AND APPLY CALAZINE. COVER WITH OPTIFOAM DRESSING. REPLACE EVERY 3 DAYS OR NEEDED LEFT ISCHIUM- STAGE I PRESSURE ULCER MEASURES 4.5X1.7CM. NON-BLANCHABLE ERYTHEMA. RECOMMEND- APPLY CALAZINE AND COVER WITH OPTIFOAM DRESSING. REPLACE EVERY 7 DAYS. Turn q2h off load pressure with pillow off load heels nutritional optimization [employer] eval will follow with recs thank you (3) Malnutrition Assessment & Plan: Mr. Roman is a 70 year old male BIBA to ED of [facility] on 09/10/2020 around 14:00 due to fever. He was found to be hypotensive 91/55 (67), Temp: 100.0, leukocytosis 20.8k and subsequently transferred to ICU for septic shock. The blood culture is reportedly positive for gram positive cocci. NG tube was placed, KUB confirmed the placement to day. Pt is clinically stable with leukocytosis 20.1, improved BUN and creatine, stable hemodynamic without vasopressor. Findings: Mr. Roman is disoriented. He does ot follow commands at this time. Oral cavity is noted to be dried blood concretion likely from NG trauma. No active bleeding site is seen. Due to his level f alertness, already NG tube is in placed, PO trial was not done at this time. Transferred out ICU last night. He is non on tele. Issues: multiple wounds, s.p balaji/nasal/pharyngeal bleeding with blood culture Gram positive cocci leukocytosis trending down from 20k-20k-16k BUN/Creatine trending down from 93/1.9-79/1.3-54/1.1 Temp: 98.1~98.7, Pulse: 62~72, BP: 105/67~120/48, SPO2 98~100% on 2 liter S: Oral cavity is better condition comparison to yesterday. The mucosa is severely erythema without active bleeding. Limited level of alertness for direct therapy. NG in placed O: 1. Laryngeal palpation to trigger spontaneous cough and swallow: Pt triggered cough with laryngeal palpation. Approximately 5~10 seconds after coughing, he triggered swallow. based on this observation, he presents with copious secretion in pharynx and larynx. He continued to have poor secretion management at laryngeal level at this time. NO PO trial was given due to poor secretion at the level of air way with low level of alertness. A: 1. Probable aspiration of his own secretion with poor ability to cough and swallow 2. Dysphagia P: 1. NPO for now 2. Observe his secretion, and level of alertness for PO readiness. DAILY ESTIMATED NEEDS: Needs based on Wound, underweight/ 55kg 30-35 kcals/kg 4933-0741 total kcals 1.25-2 g protein/kg 69-110 g total protein 25-30 mL/kg 6024-5047 total fluid mLs NUTRITION DIAGNOSIS: Increased kcal/prot needs R/T wound healing and underweight status as evidenced by pt admitted w/ wounds including DTI 2 coccyx and stage 1 @ lt ischium, pt @ 73% IBW w/ low BMI per guidelines, s/p NGT insertion, on NGT feeds. CURRENT TF:Jevity 1.2 @ 50ml/hr x 24 hrs ENTERAL NUTRITION RECOMMENDATIONS: Jevity 1.2 @ 60ml/hr x 24 hrs to provide 1440ml, 1728kcal, 80g prot, 1160ml free water * As medically appropriate, increase goal rate to 60ml/hr x 24 hrs to meet 100% est kcal/prot needs * HOB over 30 degrees/ without IVF, H2O flush of 100ml q 8hrs ADDITIONAL RECOMMENDATIONS: * Calibrated daily bedscale wt Per SNF: HT=70" * Wound healing: TF rec @ goal will provide 100% RDI add Vit C 250mg QD, ZnSO4 220mg QD x 10days, Davidson BID via NGT * Monitor BGs, need for NISS w/ TF * Monitor lytes, replete as needed- high risk for refeeding syndrome -> check f/up phos and mag (4) Severe sepsis Assessment & Plan: will likely need trach and peg. patient needs protected airway and nutrition full code no family and unable to consent medically necessary. will plan soon (5) Open upper arm wound (6) Hematuria Assessment & Plan: as per urology Aubrey Gutierrez Oct 07, 2020 12:07
--- NOTE | 2020-10-07 12:50 | Infectious Diseases Prog Note ---
Assessment/Plan Assessment/Plan A 1. Pneumonia with MRSA treated COVID19 test is negative. 2. Dementia. 3. Leukocytosis 4. Urinary tract infection treated 5. 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 BPH P 1. Observe off antibiotic Subjective ROS Limited/Unobtainable: Yes Constitutional: Reports: other - low grade fever last night Neurologic: Reports: confusion, other - restrained by mittens Allergies: Coded Allergies: VANCOMYCIN (Verified Allergy, Severe, hive, 09/28/20) Objective Last 24 Hour Vital Signs Date Time Temp Pulse Resp B/P (MAP) Pulse Ox O2 Delivery O2 Flow Rate FiO2 10/07/20 08:00 67 10/07/20 07:56 45 10/07/20 07:56 98.1 70 24 125/74 (91) 100 10/07/20 07:56 Mechanical Ventilator Mechanical Ventilator 10/07/20 07:15 60 20 45 10/07/20 04:00 98.4 65 24 127/78 (94) 100 10/07/20 04:00 45 10/07/20 04:00 Mechanical Ventilator Mechanical Ventilator 10/07/20 03:23 67 10/07/20 02:41 74 29 45 10/07/20 00:53 99.1 10/07/20 00:23 75 10/07/20 00:00 45 10/07/20 00:00 Mechanical Ventilator Mechanical Ventilator 10/07/20 00:00 100.6 78 24 116/68 (84) 100 10/06/20 22:41 79 31 45 10/06/20 20:00 Mechanical Ventilator Mechanical Ventilator 10/06/20 20:00 45 10/06/20 20:00 98.3 70 24 120/66 (84) 100 10/06/20 19:36 88 10/06/20 18:45 79 32 45 10/06/20 16:00 69 10/06/20 16:00 98.8 87 24 117/77 (90) 100 10/06/20 16:00 45 10/06/20 16:00 Mechanical Ventilator Mechanical Ventilator 10/06/20 15:10 78 34 45 Height (Feet): 6 Height (Inches): 1.00 Weight (Pounds): 148 HEENT: status post trach Respiratory/Chest: lungs clear Cardiovascular: normal rate Abdomen: soft, non tender, other - GT feeding Genitourinary: other - Rae catheter Extremities: no edema Neurologic/Psychiatric: aphasia Current Medications Medications (Trade) Dose Ordered Sig/Aleksander Route PRN Reason Start Time Stop Time Status Last Admin Dose Admin Acetaminophen (Tylenol) 650 mg Q4H PRN NG Temp >100.5 09/10/20 23:15 10/10/20 23:14 10/07/20 00:23 Al Hydroxide/Mg Hydroxide (Mylanta) 30 ml Q4H PRN NG Constipation 09/11/20 00:15 10/10/20 23:14 Ascorbic Acid (Vitamin C) 250 mg DAILY NG 09/26/20 09:00 10/18/20 08:59 10/07/20 08:50 Diphenhydramine HCl (Benadryl) 25 mg Q6H PRN IVP Itching 09/27/20 12:15 10/27/20 12:14 10/07/20 09:14 Diphenoxylate HCl/ Atropine (Lomotil) 2.5 mg Q4H PRN ORAL Diarrhea 09/20/20 08:15 10/20/20 08:14 Famotidine (Pepcid) 20 mg BID GT 10/04/20 09:00 01/02/21 08:59 10/07/20 08:49 Finasteride (Proscar) 5 mg DAILY ORAL 09/13/20 09:00 12/12/20 08:59 10/07/20 08:49 Furosemide (Lasix) 40 mg DAILY IV 10/03/20 09:00 11/02/20 08:59 10/07/20 08:49 Multivitamins (Multivitamins W/ Minerals 15ml Liquid) 15 ml DAILY NG 09/26/20 09:00 10/26/20 08:59 10/07/20 08:49 Ondansetron HCl (Zofran) 4 mg Q6H PRN IVP Nausea & Vomiting 09/10/20 23:15 10/10/20 23:14 Spironolactone (Aldactone) 25 mg DAILY GT 10/05/20 09:00 11/04/20 08:59 10/07/20 08:49 Tamsulosin HCl (Flomax) 0.4 mg BEDTIME ORAL 09/12/20 21:00 10/12/20 20:59 10/06/20 20:59 Valproic Acid (Depakene) 1,000 mg BEDTIME GT 10/06/20 21:00 10/31/20 20:59 10/06/20 21:00 Zinc Sulfate (Zinc Sulfate) 220 mg DAILY GT 10/06/20 09:00 01/04/21 08:59 10/07/20 08:50 Bradley Gil MD Oct 07, 2020 12:50
--- NOTE | 2020-10-07 12:55 | General Progress Note ---
Subjective ROS Limited/Unobtainable: Yes Constitutional: Reports: malaise, weakness HEENT: Reports: no symptoms Cardiovascular: Reports: no symptoms Respiratory: Reports: cough, shortness of breath, sputum Gastrointestinal/Abdominal: Reports: difficulty swallowing Genitourinary: Reports: no symptoms Neurologic/Psychiatric: Reports: pre-existing deficit Endocrine: Reports: no symptoms Hematologic/Lymphatic: Reports: anemia Allergies: Coded Allergies: VANCOMYCIN (Verified Allergy, Severe, hive, 09/28/20) All Systems: reviewed and negative except above Subjective no events. o2 sats improving. alert but confused. anxious. contracted, no fevers. labs reviewed. decreased h/h. no bleeding Objective Last 24 Hour Vital Signs Date Time Temp Pulse Resp B/P (MAP) Pulse Ox O2 Delivery O2 Flow Rate FiO2 10/07/20 12:00 45 10/07/20 12:00 97.9 68 24 110/68 (82) 100 10/07/20 12:00 Mechanical Ventilator Mechanical Ventilator 10/07/20 08:00 67 10/07/20 07:56 45 10/07/20 07:56 98.1 70 24 125/74 (91) 100 10/07/20 07:56 Mechanical Ventilator Mechanical Ventilator 10/07/20 07:15 60 20 45 10/07/20 04:00 98.4 65 24 127/78 (94) 100 10/07/20 04:00 45 10/07/20 04:00 Mechanical Ventilator Mechanical Ventilator 10/07/20 03:23 67 10/07/20 02:41 74 29 45 10/07/20 00:53 99.1 10/07/20 00:23 75 10/07/20 00:00 45 10/07/20 00:00 Mechanical Ventilator Mechanical Ventilator 10/07/20 00:00 100.6 78 24 116/68 (84) 100 10/06/20 22:41 79 31 45 10/06/20 20:00 Mechanical Ventilator Mechanical Ventilator 10/06/20 20:00 45 10/06/20 20:00 98.3 70 24 120/66 (84) 100 10/06/20 19:36 88 10/06/20 18:45 79 32 45 10/06/20 16:00 69 10/06/20 16:00 98.8 87 24 117/77 (90) 100 12/19/20 16:00 45 10/06/20 16:00 Mechanical Ventilator Mechanical Ventilator 10/06/20 15:10 78 34 45 Intake and Output 10/06/20 10/07/20 19:00 07:00 Intake Total 1020 ml 820 ml Output Total 2000 ml 950 ml Balance -980 ml -130 ml Free Water 300 ml 100 ml Tube Feeding 720 ml 720 ml Output Urine Total 2000 ml 950 ml Height (Feet): 6 Height (Inches): 1.00 Weight (Pounds): 148 Objective General Appearance: WD/WN, confused. EENT: normal ENT inspection. +trach, dressing clean Neck: normal alignment, supple Cardiovascular: normal rate, regular rhythm Respiratory/Chest: rhonchi - bilaterally. diminished BS Abdomen: normal bowel sounds, non tender, soft, no organomegaly Edema: no edema noted Leg (L), no edema noted Leg (R) Neurologic: general medical practitioner II-XII grossly normal, responsive, disoriented Lymphatic: normal anterior cervical (L), normal anterior cervical (R), normal posterior cervical (L), normal posterior cervical (R) Assessment/Plan Problem List: (1) PNA (pneumonia) ICD Codes: J18.9 - Pneumonia, unspecified organism SNOMED: 149639202 (2) UTI (urinary tract infection) ICD Codes: N39.0 - Urinary tract infection, site not specified SNOMED: 29684158 (3) Fever ICD Codes: R50.9 - Fever, unspecified SNOMED: 561683699 Qualifiers: Qualified Codes: R50.9 - Fever, unspecified (4) Decubitus skin ulcer ICD Codes: L89.90 - Pressure ulcer of unspecified site, unspecified stage SNOMED: 600142163 (5) Malnutrition ICD Codes: E46 - Unspecified protein-calorie malnutrition SNOMED: 53738506 (6) Severe sepsis ICD Codes: A41.9 - Sepsis, unspecified organism; R65.20 - Severe sepsis without septic shock SNOMED: 40945312 (7) Hematuria ICD Codes: R31.9 - Hematuria, unspecified SNOMED: 46355282 Status: stable Assessment/Plan: monitor off abx resp rx and suctioning trach care titrate fio2 monitor abg skin care tube feeds- tolerating monitor labs transfuse prn monitor for bleeding poor prognosis dc planning Jason Layne MD Oct 07, 2020 12:55
--- NOTE | 2020-10-07 15:47 | General Progress Note ---
Subjective Allergies: Coded Allergies: VANCOMYCIN (Verified Allergy, Severe, hive, 09/28/20) Subjective NAD awake, calm tolerated TF Objective Last 24 Hour Vital Signs Date Time Temp Pulse Resp B/P (MAP) Pulse Ox O2 Delivery O2 Flow Rate FiO2 10/07/20 15:29 65 27 45 10/07/20 12:00 68 10/07/20 12:00 45 10/07/20 12:00 97.9 68 24 110/68 (82) 100 10/07/20 12:00 Mechanical Ventilator Mechanical Ventilator 10/07/20 10:52 66 22 45 10/07/20 08:00 67 10/07/20 07:56 45 10/07/20 07:56 98.1 70 24 125/74 (91) 100 10/07/20 07:56 Mechanical Ventilator Mechanical Ventilator 10/07/20 07:15 60 20 45 10/07/20 04:00 98.4 65 24 127/78 (94) 100 10/07/20 04:00 45 10/07/20 04:00 Mechanical Ventilator Mechanical Ventilator 10/07/20 03:23 67 10/07/20 02:41 74 29 45 10/07/20 00:53 99.1 10/07/20 00:23 75 10/07/20 00:00 45 10/07/20 00:00 Mechanical Ventilator Mechanical Ventilator 10/07/20 00:00 100.6 78 24 116/68 (84) 100 10/06/20 22:41 79 31 45 10/06/20 20:00 Mechanical Ventilator Mechanical Ventilator 10/06/20 20:00 45 10/06/20 20:00 98.3 70 24 120/66 (84) 100 10/06/20 19:36 88 10/06/20 18:45 79 32 45 10/06/20 16:00 69 10/06/20 16:00 98.8 87 24 117/77 (90) 100 10/06/20 16:00 45 10/06/20 16:00 Mechanical Ventilator Mechanical Ventilator Intake and Output 10/06/20 10/07/20 19:00 07:00 Intake Total 1020 ml 820 ml Output Total 2000 ml 950 ml Balance -980 ml -130 ml Free Water 300 ml 100 ml Tube Feeding 720 ml 720 ml Output Urine Total 2000 ml 950 ml Height (Feet): 6 Height (Inches): 1.00 Weight (Pounds): 148 Objective Thin WM on vent/trach calm, awake Skin: no hematoma or ecchymosis HEENT NCAT supple, (+) trach coarse ronchi RR, slightly tachy abd soft flat ND, (+) GT no edema Assessment/Plan Status: stable Assessment/Plan: Assessment - resp failure - s/p PEG - anemia - OBS/Dementia - sepsis - diarrhea, C Diff (-) - Azotemia, resolved - CHF - malnutrition , low albumin - leukocytosis - hypernatremia Recommendations -Vent care / support - cards and pulm follow up - supportive care - abx - PPI - TF Deborah Cabrera MD Oct 07, 2020 15:46
[2020-10-07 16:00] VITALS: BP 110/68
--- NOTE | 2020-10-07 19:30 | NUR ---
NURSE NOTES: Cleaned pt, sponge bath given, pt is restless. Repositioned pt per protocol. Bed in lowest position, call light within reach,Continue to plan of care.
--- NOTE | 2020-10-07 19:39 | NUR ---
NURSE HAND-OFF REPORT: Important Events on Shift: Discharge ordered awaitng placement Patient Status: Stable Diet: Jevity Pending Orders: Pending Results/Labs: Pending MD notification: Latest Vital Signs: Temperature 97.9 , Pulse 72 , B/P 110 /68 , Respiratory Rate 24 , O2 SAT 100 , Mechanical Ventilator, O2 Flow Rate 45.0 . Vital Sign Comment: EKG Rhythm: Sinus Rhythm Rhythm change?: N MD Notified?: N -Dr Jacklyn BENITEZ Response: No New Orders Received Latest Schultz Fall Score: 70 Fall Risk: High Risk Safety Measures: Call light Within Reach, Bed Alarm Zone 1, Side Rails Side Rails x3, Bed position Low and Locked. Fall Precautions: Yellow Socks Door Sign Patient Fall Education Report given to .
[2020-10-07 20:00] VITALS: BP 136/99
[2020-10-07] MEDS: Tamsulosin 0.4mg cap ORAL SCH (20:53)
[2020-10-07] MEDS: Valproic Acid 250mg/5ml Liquid GT SCH (20:53)
--- NOTE | 2020-10-07 21:31 | Cardiology Progress Note ---
Subjective DATE OF SERVICE: Oct 07, 2020 Remains on vent via trach, requiring 40-50% oxygen delivery. Remains congested; less edematous. BP remains mostly controlled. Monitor: sinus/ sinus tachycardia. Objective Last 24 Hour Vital Signs Date Time Temp Pulse Resp B/P (MAP) Pulse Ox O2 Delivery O2 Flow Rate FiO2 10/07/20 20:21 Mechanical Ventilator 10/07/20 20:00 101 10/07/20 20:00 45 10/07/20 20:00 97.0 77 20 136/99 (111) 100 10/07/20 19:30 58 20 45 10/07/20 16:00 45 10/07/20 16:00 97.9 68 24 110/68 (82) 100 10/07/20 16:00 72 10/07/20 16:00 Mechanical Ventilator Mechanical Ventilator 10/07/20 15:29 65 27 45 10/07/20 12:00 68 10/07/20 12:00 45 10/07/20 12:00 97.9 68 24 110/68 (82) 100 10/07/20 12:00 Mechanical Ventilator Mechanical Ventilator 10/07/20 10:52 66 22 45 10/07/20 08:00 67 10/07/20 07:56 45 10/07/20 07:56 98.1 70 24 125/74 (91) 100 10/07/20 07:56 Mechanical Ventilator Mechanical Ventilator 10/07/20 07:15 60 20 45 10/07/20 04:00 98.4 65 24 127/78 (94) 100 10/07/20 04:00 45 10/07/20 04:00 Mechanical Ventilator Mechanical Ventilator 10/07/20 03:23 67 10/07/20 02:41 74 29 45 10/07/20 00:53 99.1 10/07/20 00:23 75 10/07/20 00:00 45 10/07/20 00:00 Mechanical Ventilator Mechanical Ventilator 10/07/20 00:00 100.6 78 24 116/68 (84) 100 10/06/20 22:41 79 31 45 ROS: no change from my evaluation of 09/10/20. HEENT: Mechanically Ventilated, Thin Trach secretions RHYTHM: NSR, ST LUNGS: bilat. rhonchi and rales, trach site clean CARDIAC: normal rate, regular rhythm, normal S1 and S2 ABDOMEN: normal bowel sounds, soft, other - sacral decub EXTREMITIES: +1 edema Assessment/Plan Assessment/Plan Respiratory failure with hypoxia - s/p tracheostomy Sepsis Leukocytosis Aspiration PNA Recurring shock - recovered Diarrhea Dehydration/hypernatremia corrected Acute myocardial ischemia Acute renal failure HC assoc PNA UTI Transaminitis, acute CVA/dementia Paroxysmal sinus bradycardia and tachycardia Acute diastolic CHF Severe protein/calorie malnutrition with dysphagia; now s/p PEG Hypokalemia Remains CRITICAL & GUARDED Vent support with trach care. Antimicrobials per ID. Replace lytes as needed. DVT prophyl Cardiac monitoring Diuresis based on clinical parameters; aldactone to spare potassium loss. Will monitor lytes, and trend BNP. Madi Rios MD Oct 07, 2020 21:31
--- NOTE | 2020-10-07 22:03 | NUR ---
NURSE NOTES: Spoke to Dr. bautista that pt is restless and increase anxiety, no pain noted. VS WNL and no facial grimacing. New ordered given and carried out.
[2020-10-07] MEDS: LORazepam 1mg tab GT PRN (23:15)
[2020-10-08] VITALS: BP 111/63
--- NOTE | 2020-10-08 00:21 | NUR ---
NURSE NOTES: No isgns of respiratory distress- o2 sat-100%. bed in lowest position, bed locked. Continue to current management.
[2020-10-08 04:00] VITALS: BP 123/69
--- NOTE | 2020-10-08 05:30 | NUR ---
NURSE NOTES: Changed 1x BM noted, smear only. Changed pt. pt is not restless now. No any pain noted. Continue current management.
[2020-10-08 05:45] LABS: BASOPHILS % (AUTO) 1.2 % (0.0-2.0); EOSINOPHILS % (AUTO) 1.4 % (0.0-3.0); HEMATOCRIT 25.7 % (42.0-52.0); HEMOGLOBIN 8.8 G/DL (14.2-18.0); LYMPHOCYTES % (AUTO) 33.9 % (20.0-45.0); MEAN CORPUSCULAR VOLUME 85 FL (80-99); NEUTROPHILS % (AUTO) 54.5 % (45.0-75.0); PLATELET COUNT 201 K/UL (150-450); RED BLOOD COUNT 3.04 M/UL (4.70-6.10); RED CELL DISTRIBUTION WIDTH 15.1 % (11.6-14.8); WHITE BLOOD COUNT 5.7 K/UL (4.8-10.8)
[2020-10-08] MEDS: LORazepam 1mg tab GT PRN ×2 (05:57→14:19)
[2020-10-08 06:45] LABS: ALANINE AMINOTRANSFERASE 29 U/L (12-78); ALBUMIN 1.2 G/DL (3.4-5.0); ALBUMIN/GLOBULIN RATIO 0.3 (1.0-2.7); ALKALINE PHOSPHATASE 68 U/L (46-116); ANION GAP 0 mmol/L (5-15); ASPARTATE AMINO TRANSFERASE 26 U/L (15-37); BILIRUBIN,TOTAL 0.2 MG/DL (0.2-1.0); BLOOD UREA NITROGEN 18 mg/dL (7-18); CALCIUM 7.4 MG/DL (8.5-10.1); CARBON DIOXIDE 33 MMOL/L (21-32); CHLORIDE 107 MMOL/L (98-107); SODIUM 140 MMOL/L (136-145)
--- NOTE | 2020-10-08 07:25 | NUR ---
NURSE NOTES: Received patient from [facility]. Patient is sleeping in bed without any acute distress. sinus rhythm on the monitor. trach to vent at prescribed settings, tolerating well. gtube and tube feeding running at prescribed rate, tolerating well. seizure precaution with side rails padded. bed to lowest position and locked, call light within easy reach. will continue plan of care.
--- NOTE | 2020-10-08 07:43 | NUR ---
NURSE HAND-OFF REPORT: Important Events on Shift: Stable, pending discharged Patient Status: Stable Diet: GTF Pending Orders: NONe Pending Results/Labs: None Pending MD notification: None Latest Vital Signs: Temperature 99.1 , Pulse 65 , B/P 99 /67 , Respiratory Rate 18 , O2 SAT 99 , Mechanical Ventilator, O2 Flow Rate 45.0 . Vital Sign Comment: WNL EKG Rhythm: SR with BBB Rhythm change?: Y MD Notified?: N -Dr Jacklyn BENITEZ Response: No New Orders Received Latest Schultz Fall Score: 70 Fall Risk: High Risk Safety Measures: Call light Within Reach, Bed Alarm Zone 1, Side Rails Side Rails x3, Bed position Low and Locked. Fall Precautions: Yellow Socks Door Sign Patient Fall Education Report given to [ARTEMIO Love].
[2020-10-08 08:00] VITALS: BP 98/57
--- NOTE | 2020-10-08 08:00 | Pulmonology Progress Note ---
Subjective ROS Limited/Unobtainable: No Constitutional: Reports: other - low grade fever last night Gastrointestinal/Abdominal: Reports: diarrhea Allergies: Coded Allergies: VANCOMYCIN (Verified Allergy, Severe, hive, 09/28/20) All Systems: reviewed and negative except above Objective Last 24 Hour Vital Signs Date Time Temp Pulse Resp B/P (MAP) Pulse Ox O2 Delivery O2 Flow Rate FiO2 10/08/20 06:27 65 18 99/67 99 10/08/20 05:57 61 17 116/72 100 10/08/20 04:00 45 10/08/20 04:00 99.1 79 20 123/69 (87) 100 77 10/08/20 04:00 64 10/08/20 03:10 71 25 40 10/08/20 00:00 98.6 77 19 111/63 (79) 100 68 10/08/20 00:00 45 10/08/20 00:00 85 10/07/20 23:45 78 18 111/63 100 10/07/20 23:15 67 19 112/69 100 10/07/20 23:10 72 30 40 10/07/20 20:21 Mechanical Ventilator 10/07/20 20:00 101 10/07/20 20:00 45 10/07/20 20:00 97.0 77 20 136/99 (111) 100 10/07/20 19:30 58 20 45 10/07/20 16:00 45 10/07/20 16:00 97.9 68 24 110/68 (82) 100 10/07/20 16:00 72 10/07/20 16:00 Mechanical Ventilator Mechanical Ventilator 10/07/20 15:29 65 27 45 10/07/20 12:00 68 10/07/20 12:00 45 10/07/20 12:00 97.9 68 24 110/68 (82) 100 10/07/20 12:00 Mechanical Ventilator Mechanical Ventilator 10/07/20 10:52 66 22 45 10/07/20 08:00 67 Intake and Output 10/07/20 10/08/20 19:00 07:00 Intake Total 1020 ml 760 ml Output Total 1150 ml Balance -130 ml 760 ml Free Water 150 ml 100 ml Tube Feeding 720 ml 660 ml Blood Product 150 ml Output Urine Total 1150 ml # Bowel Movements 2 Laboratory Tests 10/08/20 05:15: White Blood Count 5.7, Red Blood Count 3.04L, Hemoglobin 8.8L, Hematocrit 25.7L, Mean Corpuscular Volume 85, Mean Corpuscular Hemoglobin 29.0, Mean Corpuscular Hemoglobin Concent 34.3, Red Cell Distribution Width 15.1H, Platelet Count 201, Mean Platelet Volume 6.5, Neutrophils (%) (Auto) 54.5, Lymphocytes (%) (Auto) 33.9, Monocytes (%) (Auto) 9.0, Eosinophils (%) (Auto) 1.4, Basophils (%) (Auto) 1.2, Sodium Level 140, Potassium Level 4.0, Chloride Level 107, Carbon Dioxide Level 33H, Anion Gap 0L, Blood Urea Nitrogen 18, Creatinine 1.0, Estimat Glomerular Filtration Rate > 60, Glucose Level 120H, Calcium Level 7.4L, Total Bilirubin 0.2, Aspartate Amino Transf (AST/SGOT) 26, Alanine Aminotransferase (ALT/SGPT) 29, Alkaline Phosphatase 68, Pro-B-Type Natriuretic Peptide [Pending], Total Protein 5.8L, Albumin 1.2L, Globulin 4.6, Albumin/Globulin Ratio 0.3L Current Medications Medications (Trade) Dose Ordered Sig/Aleksander Route PRN Reason Start Time Stop Time Status Last Admin Dose Admin Acetaminophen (Tylenol) 650 mg Q4H PRN NG Temp >100.5 09/10/20 23:15 10/10/20 23:14 10/07/20 00:23 Al Hydroxide/Mg Hydroxide (Mylanta) 30 ml Q4H PRN NG Constipation 09/11/20 00:15 10/10/20 23:14 Ascorbic Acid (Vitamin C) 250 mg DAILY NG 09/26/20 09:00 10/18/20 08:59 10/07/20 08:50 Diphenhydramine HCl (Benadryl) 25 mg Q6H PRN IVP Itching 09/27/20 12:15 10/27/20 12:14 10/07/20 20:47 Diphenoxylate HCl/ Atropine (Lomotil) 2.5 mg Q4H PRN ORAL Diarrhea 09/20/20 08:15 10/20/20 08:14 Famotidine (Pepcid) 20 mg BID GT 10/04/20 09:00 01/02/21 08:59 10/07/20 17:13 Finasteride (Proscar) 5 mg DAILY ORAL 09/13/20 09:00 12/12/20 08:59 10/07/20 08:49 Furosemide (Lasix) 40 mg DAILY IV 10/03/20 09:00 11/02/20 08:59 10/07/20 08:49 Lorazepam (Ativan) 1 mg Q4H PRN GT For Anxiety 10/07/20 22:00 10/14/20 21:59 10/08/20 05:57 Multivitamins (Multivitamins W/ Minerals 15ml Liquid) 15 ml DAILY NG 09/26/20 09:00 10/26/20 08:59 10/07/20 08:49 Ondansetron HCl (Zofran) 4 mg Q6H PRN IVP Nausea & Vomiting 09/10/20 23:15 10/10/20 23:14 Spironolactone (Aldactone) 25 mg DAILY GT 10/05/20 09:00 11/04/20 08:59 10/07/20 08:49 Tamsulosin HCl (Flomax) 0.4 mg BEDTIME ORAL 09/12/20 21:00 10/12/20 20:59 10/07/20 20:53 Valproic Acid (Depakene) 1,000 mg BEDTIME GT 10/06/20 21:00 10/31/20 20:59 10/07/20 20:53 Zinc Sulfate (Zinc Sulfate) 220 mg DAILY GT 10/06/20 09:00 01/04/21 08:59 10/07/20 08:50 Assessment/Plan Assessment/Plan Pulmonary Progress Note Subjective Allergies: Coded Allergies: No Known Allergies (Unverified , 09/10/20) Subjective remains confused stable oxygen requirements Persistant infiltrates AB per ID TF to SNF once stable Objective Vital Signs noted Height (Feet): 5 Height (Inches): 7.00 Weight (Pounds): 121 Objective WDWN NAD reduced breath sounds bilaterally without rhonchi or wheeze [id number] without MRG NABS nontender no HSM no CCE nonfocal remains confused Assessment/Plan Assessment/Plan: IMPRESSION: 1. Acute renal failure. 2. Hypernatremia improving 3. Leukocytosis. 4. Pneumonia/ sepsis. 5. Hypotension. 6. Dementia. 7. Acute on chronic encephalopathy. 8. bcx staph Epi 9. MRSA colonized PLAN IMPRESSION: 1. Acute renal failure. 2. Hypernatremia. 3. Leukocytosis. 4. Possible sepsis. 5. Hypotension. 6. Dementia. 7. Acute on chronic encephalopathy. 8. bcx staph Epi 9. MRSA colonized 10. acute hypoxemic respiratory failure 11. atelectasis/collapse 12. leukocytosis 13. trach PLAN follow up HH post transfusion taper fio2 ID noted; monitor follow up on antibiotics monitor oxygen needs vent support full for now off load as able monitor lytes position change monitor imaging d/w consultants and nursing remains critical trach care dc plan to subacute impression, plan, and exam edited and reviewed in detail care discussed with RN Madi Elliott MD Oct 08, 2020 08:00
--- NOTE | 2020-10-08 08:03 | Urology Progress Note ---
Assessment/Plan Status: stable Assessment/Plan: 1. Gross hematuria. 2. Pyuria and possible UTI. 3. Proteinuria. 4. BPH. 5. Urinary retention. 6. Probable neurogenic bladder. 7. Possible sepsis. monitor clinically maintain andrade, secured to pt's leg hand irrigated and do PRN s/p abx flomax and proscar cysto electively voiding trial at some point? Subjective Allergies: Coded Allergies: VANCOMYCIN (Verified Allergy, Severe, hive, 09/28/20) Subjective remains on vent, trach 09/27 Objective Last 24 Hour Vital Signs Date Time Temp Pulse Resp B/P (MAP) Pulse Ox O2 Delivery O2 Flow Rate FiO2 10/08/20 06:27 65 18 99/67 99 10/08/20 05:57 61 17 116/72 100 10/08/20 04:00 45 10/08/20 04:00 99.1 79 20 123/69 (87) 100 77 10/08/20 04:00 64 10/08/20 03:10 71 25 40 10/08/20 00:00 98.6 77 19 111/63 (79) 100 68 10/08/20 00:00 45 10/08/20 00:00 85 10/07/20 23:45 78 18 111/63 100 10/07/20 23:15 67 19 112/69 100 10/07/20 23:10 72 30 40 10/07/20 20:21 Mechanical Ventilator 10/07/20 20:00 101 10/07/20 20:00 45 10/07/20 20:00 97.0 77 20 136/99 (111) 100 10/07/20 19:30 58 20 45 10/07/20 16:00 45 10/07/20 16:00 97.9 68 24 110/68 (82) 100 10/07/20 16:00 72 10/07/20 16:00 Mechanical Ventilator Mechanical Ventilator 10/07/20 15:29 65 27 45 10/07/20 12:00 68 10/07/20 12:00 45 10/07/20 12:00 97.9 68 24 110/68 (82) 100 10/07/20 12:00 Mechanical Ventilator Mechanical Ventilator 10/07/20 10:52 66 22 45 Intake and Output 10/07/20 10/08/20 19:00 07:00 Intake Total 1020 ml 760 ml Output Total 1150 ml Balance -130 ml 760 ml Free Water 150 ml 100 ml Tube Feeding 720 ml 660 ml Blood Product 150 ml Output Urine Total 1150 ml # Bowel Movements 2 Microbiology Date/Time Source Procedure Growth Status 09/24/20 10:50 Nasopharynx SARS-CoV-2 RdRp Gene Assay - Final Complete 09/18/20 18:30 Stool Clostridium difficile Toxin Assay - Final Complete 09/17/20 12:58 Blood Blood Culture - Final NO GROWTH AFTER 5 DAYS Complete 09/10/20 20:05 Urine,Clean Catch Urine Culture - Final NO GROWTH AFTER 48 HOURS Complete 09/10/20 17:15 Rectum VRE Culture - Final Enterococcus Faecalis - Vre Complete Current Medications Medications (Trade) Dose Ordered Sig/Aleksander Route PRN Reason Start Time Stop Time Status Last Admin Dose Admin Acetaminophen (Tylenol) 650 mg Q4H PRN NG Temp >100.5 09/10/20 23:15 10/10/20 23:14 10/07/20 00:23 Al Hydroxide/Mg Hydroxide (Mylanta) 30 ml Q4H PRN NG Constipation 09/11/20 00:15 10/10/20 23:14 Ascorbic Acid (Vitamin C) 250 mg DAILY NG 09/26/20 09:00 10/18/20 08:59 10/07/20 08:50 Diphenhydramine HCl (Benadryl) 25 mg Q6H PRN IVP Itching 09/27/20 12:15 10/27/20 12:14 10/07/20 20:47 Diphenoxylate HCl/ Atropine (Lomotil) 2.5 mg Q4H PRN ORAL Diarrhea 09/20/20 08:15 10/20/20 08:14 Famotidine (Pepcid) 20 mg BID GT 10/04/20 09:00 01/02/21 08:59 10/07/20 17:13 Finasteride (Proscar) 5 mg DAILY ORAL 09/13/20 09:00 12/12/20 08:59 10/07/20 08:49 Furosemide (Lasix) 40 mg DAILY IV 10/03/20 09:00 11/02/20 08:59 10/07/20 08:49 Lorazepam (Ativan) 1 mg Q4H PRN GT For Anxiety 10/07/20 22:00 10/14/20 21:59 10/08/20 05:57 Multivitamins (Multivitamins W/ Minerals 15ml Liquid) 15 ml DAILY NG 09/26/20 09:00 10/26/20 08:59 10/07/20 08:49 Ondansetron HCl (Zofran) 4 mg Q6H PRN IVP Nausea & Vomiting 09/10/20 23:15 10/10/20 23:14 Spironolactone (Aldactone) 25 mg DAILY GT 10/05/20 09:00 11/04/20 08:59 10/07/20 08:49 Tamsulosin HCl (Flomax) 0.4 mg BEDTIME ORAL 09/12/20 21:00 10/12/20 20:59 10/07/20 20:53 Valproic Acid (Depakene) 1,000 mg BEDTIME GT 10/06/20 21:00 10/31/20 20:59 10/07/20 20:53 Zinc Sulfate (Zinc Sulfate) 220 mg DAILY GT 10/06/20 09:00 01/04/21 08:59 10/07/20 08:50 Laboratory Tests 10/08/20 05:15: White Blood Count 5.7, Red Blood Count 3.04L, Hemoglobin 8.8L, Hematocrit 25.7L, Mean Corpuscular Volume 85, Mean Corpuscular Hemoglobin 29.0, Mean Corpuscular Hemoglobin Concent 34.3, Red Cell Distribution Width 15.1H, Platelet Count 201, Mean Platelet Volume 6.5, Neutrophils (%) (Auto) 54.5, Lymphocytes (%) (Auto) 33.9, Monocytes (%) (Auto) 9.0, Eosinophils (%) (Auto) 1.4, Basophils (%) (Auto) 1.2, Sodium Level 140, Potassium Level 4.0, Chloride Level 107, Carbon Dioxide Level 33H, Anion Gap 0L, Blood Urea Nitrogen 18, Creatinine 1.0, Estimat Glomerular Filtration Rate > 60, Glucose Level 120H, Calcium Level 7.4L, Total Bilirubin 0.2, Aspartate Amino Transf (AST/SGOT) 26, Alanine Aminotransferase (ALT/SGPT) 29, Alkaline Phosphatase 68, Pro-B-Type Natriuretic Peptide [Pending], Total Protein 5.8L, Albumin 1.2L, Globulin 4.6, Albumin/Globulin Ratio 0.3L Height (Feet): 6 Height (Inches): 1.00 Weight (Pounds): 148 Objective exam stable urine clearing Levi Brunson MD Oct 08, 2020 08:03
[2020-10-08] MEDS: Multivitamins W/Minerals 15 ML UDC NG SCH (09:14)
[2020-10-08] MEDS: Zinc Sulfate 220mg GT SCH (09:15)
[2020-10-08] MEDS: Ascorbic Acid 500mg tab NG SCH (09:16)
[2020-10-08] MEDS: Spironolactone 25mg tab GT SCH (09:16)
--- NOTE | 2020-10-08 10:12 | NUR ---
NURSE NOTES: patient is asleep in bed without any acute distress at this time.
--- NOTE | 2020-10-08 11:58 | Infectious Diseases Prog Note ---
Assessment/Plan Assessment/Plan antibiotics : none A 1. MRSA Pneumonia s/p rx COVID-19 test is negative. 2. Dementia. 3. Leukocytosis improving 4. respiratory failure s/p tracheostomy 5. allergic reaction to vancomycin resolved P 1. observe off antibiotics Subjective ROS Limited/Unobtainable: Yes Allergies: Coded Allergies: VANCOMYCIN (Verified Allergy, Severe, hive, 09/28/20) Objective Last 24 Hour Vital Signs Date Time Temp Pulse Resp B/P (MAP) Pulse Ox O2 Delivery O2 Flow Rate FiO2 10/08/20 08:00 98.2 79 27 98/57 (71) 99 68 10/08/20 08:00 69 10/08/20 07:10 71 24 40 10/08/20 06:27 65 18 99/67 99 10/08/20 05:57 61 17 116/72 100 10/08/20 04:00 45 10/08/20 04:00 99.1 79 20 123/69 (87) 100 77 10/08/20 04:00 64 10/08/20 03:10 71 25 40 10/08/20 00:00 98.6 77 19 111/63 (79) 100 68 10/08/20 00:00 45 10/08/20 00:00 85 10/07/20 23:45 78 18 111/63 100 10/07/20 23:15 67 19 112/69 100 10/07/20 23:10 72 30 40 10/07/20 20:21 Mechanical Ventilator 10/07/20 20:00 101 10/07/20 20:00 45 10/07/20 20:00 97.0 77 20 136/99 (111) 100 10/07/20 19:30 58 20 45 10/07/20 16:00 45 10/07/20 16:00 97.9 68 24 110/68 (82) 100 10/07/20 16:00 72 10/07/20 16:00 Mechanical Ventilator Mechanical Ventilator 10/07/20 15:29 65 27 45 10/07/20 12:00 68 10/07/20 12:00 45 10/07/20 12:00 97.9 68 24 110/68 (82) 100 10/07/20 12:00 Mechanical Ventilator Mechanical Ventilator Height (Feet): 6 Height (Inches): 1.00 Weight (Pounds): 148 HEENT: status post trach Respiratory/Chest: lungs clear Cardiovascular: normal rate, regular rhythm, no gallop/murmur Abdomen: soft, non tender, other - GT Extremities: no edema Laboratory Tests Test 10/08/20 05:15 White Blood Count 5.7 K/UL (4.8-10.8) Red Blood Count 3.04 M/UL (4.70-6.10) L Hemoglobin 8.8 G/DL (14.2-18.0) L Hematocrit 25.7 % (42.0-52.0) L Mean Corpuscular Volume 85 FL (80-99) Mean Corpuscular Hemoglobin 29.0 PG (27.0-31.0) Mean Corpuscular Hemoglobin Concent 34.3 G/DL (32.0-36.0) Red Cell Distribution Width 15.1 % (11.6-14.8) H Platelet Count 201 K/UL (150-450) Mean Platelet Volume 6.5 FL (6.5-10.1) Neutrophils (%) (Auto) 54.5 % (45.0-75.0) Lymphocytes (%) (Auto) 33.9 % (20.0-45.0) Monocytes (%) (Auto) 9.0 % (1.0-10.0) Eosinophils (%) (Auto) 1.4 % (0.0-3.0) Basophils (%) (Auto) 1.2 % (0.0-2.0) Sodium Level 140 MMOL/L (136-145) Potassium Level 4.0 MMOL/L (3.5-5.1) Chloride Level 107 MMOL/L (98-107) Carbon Dioxide Level 33 MMOL/L (21-32) H Anion Gap 0 mmol/L (5-15) L Blood Urea Nitrogen 18 mg/dL (7-18) Creatinine 1.0 MG/DL (0.55-1.30) Estimat Glomerular Filtration Rate > 60 mL/min (>60) Glucose Level 120 MG/DL (74-106) H Calcium Level 7.4 MG/DL (8.5-10.1) L Total Bilirubin 0.2 MG/DL (0.2-1.0) Aspartate Amino Transf (AST/SGOT) 26 U/L (15-37) Alanine Aminotransferase (ALT/SGPT) 29 U/L (12-78) Alkaline Phosphatase 68 U/L (46-116) Pro-B-Type Natriuretic Peptide Pending Total Protein 5.8 G/DL (6.4-8.2) L Albumin 1.2 G/DL (3.4-5.0) L Globulin 4.6 g/dL Albumin/Globulin Ratio 0.3 (1.0-2.7) L Current Medications Medications (Trade) Dose Ordered Sig/Aleksander Route PRN Reason Start Time Stop Time Status Last Admin Dose Admin Acetaminophen (Tylenol) 650 mg Q4H PRN NG Temp >100.5 09/10/20 23:15 10/10/20 23:14 10/07/20 00:23 Al Hydroxide/Mg Hydroxide (Mylanta) 30 ml Q4H PRN NG Constipation 09/11/20 00:15 10/10/20 23:14 Ascorbic Acid (Vitamin C) 250 mg DAILY NG 09/26/20 09:00 10/18/20 08:59 10/08/20 09:16 Diphenhydramine HCl (Benadryl) 25 mg Q6H PRN IVP Itching 09/27/20 12:15 10/27/20 12:14 10/07/20 20:47 Diphenoxylate HCl/ Atropine (Lomotil) 2.5 mg Q4H PRN ORAL Diarrhea 09/20/20 08:15 10/20/20 08:14 Famotidine (Pepcid) 20 mg BID GT 10/04/20 09:00 01/02/21 08:59 10/08/20 09:15 Finasteride (Proscar) 5 mg DAILY ORAL 09/13/20 09:00 12/12/20 08:59 10/08/20 09:16 Furosemide (Lasix) 40 mg DAILY IV 10/03/20 09:00 11/02/20 08:59 10/08/20 09:16 Lorazepam (Ativan) 1 mg Q4H PRN GT For Anxiety 10/07/20 22:00 10/14/20 21:59 10/08/20 05:57 Multivitamins (Multivitamins W/ Minerals 15ml Liquid) 15 ml DAILY NG 09/26/20 09:00 10/26/20 08:59 10/08/20 09:14 Ondansetron HCl (Zofran) 4 mg Q6H PRN IVP Nausea & Vomiting 09/10/20 23:15 10/10/20 23:14 Spironolactone (Aldactone) 25 mg DAILY GT 10/05/20 09:00 11/04/20 08:59 10/08/20 09:16 Tamsulosin HCl (Flomax) 0.4 mg BEDTIME ORAL 09/12/20 21:00 10/12/20 20:59 10/07/20 20:53 Valproic Acid (Depakene) 1,000 mg BEDTIME GT 10/06/20 21:00 10/31/20 20:59 10/07/20 20:53 Zinc Sulfate (Zinc Sulfate) 220 mg DAILY GT 10/06/20 09:00 01/04/21 08:59 10/08/20 09:15 Martha Collins MD Oct 08, 2020 11:58
[2020-10-08 12:00] VITALS: BP 114/76
--- NOTE | 2020-10-08 12:23 | NUR ---
CASE MANAGEMENT:REVIEW SI;RESP FAILURE. S/P TRACH. TRACH/VENT DEPENDENT. SEPSIS. 99.1 94 30 98/57 97% TRACH/VENT AC 12 TV 450 PEEP 7 FIO2 45% H/H 8.8/25.7 ALB 1.2 IS;ATIVAN GT Q4 PRN DEPAKENE GT HS ALDACTONE GT QD LASIX IV QD PROSCAR GT HS ASTER STATUS DCP;PLACEMENT
[2020-10-08] MEDS ORDERED: Acetaminophen 650mg/20.3ml GT PRN (15:15)
[2020-10-08] MEDS ORDERED: Hydromorphone 0.5mg/0.5ml inj IVP PRN (15:18)
[2020-10-08 16:00] VITALS: BP 120/77
--- NOTE | 2020-10-08 16:02 | NUR ---
NURSE NOTES: Noted patient HR sustained 120. Dr. Rios notified and acknowledge. ordered EKG and stat ABG. orders carried out. Notified Dr. Rios of results, no new orders at this time.
--- NOTE | 2020-10-08 17:32 | Surgery Progress Note ---
Surgery Progress Note Subjective Procedure Performed tracheostomy Additional Comments no acute events exam stable no n/v Objective Last 24 Hour Vital Signs Date Time Temp Pulse Resp B/P (MAP) Pulse Ox O2 Delivery O2 Flow Rate FiO2 10/08/20 16:00 45 10/08/20 15:40 102 28 40 10/08/20 14:49 117 27 114/76 97 10/08/20 14:19 120 27 114/76 97 10/08/20 12:00 45 10/08/20 12:00 99.3 94 27 114/76 (89) 97 94 10/08/20 12:00 98 10/08/20 11:30 117 30 40 10/08/20 08:00 98.2 79 27 98/57 (71) 99 68 10/08/20 08:00 45 10/08/20 08:00 69 10/08/20 07:10 71 24 40 10/08/20 06:27 65 18 99/67 99 10/08/20 05:57 61 17 116/72 100 10/08/20 04:00 45 10/08/20 04:00 99.1 79 20 123/69 (87) 100 77 10/08/20 04:00 64 10/08/20 03:10 71 25 40 10/08/20 00:00 98.6 77 19 111/63 (79) 100 68 10/08/20 00:00 45 10/08/20 00:00 85 10/07/20 23:45 78 18 111/63 100 10/07/20 23:15 67 19 112/69 100 10/07/20 23:10 72 30 40 10/07/20 20:21 Mechanical Ventilator 10/07/20 20:00 101 10/07/20 20:00 45 10/07/20 20:00 97.0 77 20 136/99 (111) 100 10/07/20 19:30 58 20 45 I&O Intake and Output 10/07/20 10/08/20 19:00 07:00 Intake Total 1020 ml 760 ml Output Total 1150 ml Balance -130 ml 760 ml Free Water 150 ml 100 ml Tube Feeding 720 ml 660 ml Blood Product 150 ml Output Urine Total 1150 ml # Bowel Movements 2 Dressing: saturated Cardiovascular: RSR Respiratory: decreased breath sounds Abdomen: non-tender, present bowel sounds Extremities: no tenderness, no cyanosis Laboratory Tests Test 10/08/20 05:15 10/08/20 15:45 White Blood Count 5.7 K/UL (4.8-10.8) Red Blood Count 3.04 M/UL (4.70-6.10) L Hemoglobin 8.8 G/DL (14.2-18.0) L Hematocrit 25.7 % (42.0-52.0) L Mean Corpuscular Volume 85 FL (80-99) Mean Corpuscular Hemoglobin 29.0 PG (27.0-31.0) Mean Corpuscular Hemoglobin Concent 34.3 G/DL (32.0-36.0) Red Cell Distribution Width 15.1 % (11.6-14.8) H Platelet Count 201 K/UL (150-450) Mean Platelet Volume 6.5 FL (6.5-10.1) Neutrophils (%) (Auto) 54.5 % (45.0-75.0) Lymphocytes (%) (Auto) 33.9 % (20.0-45.0) Monocytes (%) (Auto) 9.0 % (1.0-10.0) Eosinophils (%) (Auto) 1.4 % (0.0-3.0) Basophils (%) (Auto) 1.2 % (0.0-2.0) Sodium Level 140 MMOL/L (136-145) Potassium Level 4.0 MMOL/L (3.5-5.1) Chloride Level 107 MMOL/L (98-107) Carbon Dioxide Level 33 MMOL/L (21-32) H Anion Gap 0 mmol/L (5-15) L Blood Urea Nitrogen 18 mg/dL (7-18) Creatinine 1.0 MG/DL (0.55-1.30) Estimat Glomerular Filtration Rate > 60 mL/min (>60) Glucose Level 120 MG/DL (74-106) H Calcium Level 7.4 MG/DL (8.5-10.1) L Total Bilirubin 0.2 MG/DL (0.2-1.0) Aspartate Amino Transf (AST/SGOT) 26 U/L (15-37) Alanine Aminotransferase (ALT/SGPT) 29 U/L (12-78) Alkaline Phosphatase 68 U/L (46-116) Pro-B-Type Natriuretic Peptide Pending Total Protein 5.8 G/DL (6.4-8.2) L Albumin 1.2 G/DL (3.4-5.0) L Globulin 4.6 g/dL Albumin/Globulin Ratio 0.3 (1.0-2.7) L Arterial Blood pH 7.482 (7.350-7.450) Arterial Blood Partial Pressure CO2 44.4 mmHg (35.0-45.0) Arterial Blood Partial Pressure O2 75.1 mmHg (75.0-100.0) Arterial Blood HCO3 32.5 mmol/L (22.0-26.0) H Arterial Blood Oxygen Saturation 96.0 % (95-100) Arterial Blood Base Excess 8.1 (-2-2) H Freddy Test Positive Plan Problems: (1) Fever Assessment & Plan: maybe developing pneumonia cont abx pulm input thank you (2) Decubitus skin ulcer Assessment & Plan: Patient identified on admission to have multiple scabs on the left arm. mild open scabs with eschar. no drainage. no significant cellulitis. bruising no bilateral extremities noted. no signs of abuse. likely from agitation Sacral coccygeal noted to have a DTI 4.3X2.5CM. which is dark purple . RECOMMEND-CLEAN WITH SALINE, PAT DRY AND APPLY CALAZINE. COVER WITH OPTIFOAM DRESSING. REPLACE EVERY 3 DAYS OR NEEDED LEFT ISCHIUM- STAGE I PRESSURE ULCER MEASURES 4.5X1.7CM. NON-BLANCHABLE ERYTHEMA. RECOMMEND- APPLY CALAZINE AND COVER WITH OPTIFOAM DRESSING. REPLACE EVERY 7 DAYS. Turn q2h off load pressure with pillow off load heels nutritional optimization BIG 6 DEALER eval will follow with recs thank you (3) Malnutrition Assessment & Plan: Mr. Roman is a 70 year old male BIBA to ED of [facility] on 2019 around 14:00 due to fever. He was found to be hypotensive 91/55 (67), Temp: 100.0, leukocytosis 20.8k and subsequently transferred to ICU for septic shock. The blood culture is reportedly positive for gram positive cocci. NG tube was placed, KUB confirmed the placement to day. Pt is clinically stable with leukocytosis 20.1, improved BUN and creatine, stable hemodynamic without vasopressor. Findings: Mr. Roman is disoriented. He does ot follow commands at this time. Oral cavity is noted to be dried blood concretion likely from NG trauma. No active bleeding site is seen. Due to his level f alertness, already NG tube is in placed, PO trial was not done at this time. Transferred out ICU last night. He is non on tele. Issues: multiple wounds, s.p balaji/nasal/pharyngeal bleeding with blood culture Gram positive cocci leukocytosis trending down from 20k-20k-16k BUN/Creatine trending down from 93/1.9-79/1.3-54/1.1 Temp: 98.1~98.7, Pulse: 62~72, BP: 105/67~120/48, SPO2 98~100% on 2 liter S: Oral cavity is better condition comparison to yesterday. The mucosa is severely erythema without active bleeding. Limited level of alertness for direct therapy. NG in placed O: 1. Laryngeal palpation to trigger spontaneous cough and swallow: Pt triggered cough with laryngeal palpation. Approximately 5~10 seconds after coughing, he triggered swallow. based on this observation, he presents with copious secretion in pharynx and larynx. He continued to have poor secretion management at laryngeal level at this time. NO PO trial was given due to poor secretion at the level of air way with low level of alertness. A: 1. Probable aspiration of his own secretion with poor ability to cough and swallow 2. Dysphagia P: 1. NPO for now 2. Observe his secretion, and level of alertness for PO readiness. DAILY ESTIMATED NEEDS: Needs based on Wound, underweight/ 55kg 30-35 kcals/kg 4159-6707 total kcals 1.25-2 g protein/kg 69-110 g total protein 25-30 mL/kg 2083-8649 total fluid mLs NUTRITION DIAGNOSIS: Increased kcal/prot needs R/T wound healing and underweight status as evidenced by pt admitted w/ wounds including DTI 2 coccyx and stage 1 @ lt ischium, pt @ 73% IBW w/ low BMI per guidelines, s/p NGT insertion, on NGT feeds. CURRENT TF:Jevity 1.2 @ 50ml/hr x 24 hrs ENTERAL NUTRITION RECOMMENDATIONS: Jevity 1.2 @ 60ml/hr x 24 hrs to provide 1440ml, 1728kcal, 80g prot, 1160ml free water * As medically appropriate, increase goal rate to 60ml/hr x 24 hrs to meet 100% est kcal/prot needs * HOB over 30 degrees/ without IVF, H2O flush of 100ml q 8hrs ADDITIONAL RECOMMENDATIONS: * Calibrated daily bedscale wt Per SNF: HT=70" * Wound healing: TF rec @ goal will provide 100% RDI add Vit C 250mg QD, ZnSO4 220mg QD x 10days, Davidson BID via NGT * Monitor BGs, need for NISS w/ TF * Monitor lytes, replete as needed- high risk for refeeding syndrome -> check f/up phos and mag (4) Severe sepsis Assessment & Plan: will likely need trach and peg. patient needs protected airway and nutrition full code no family and unable to consent medically necessary. will plan soon (5) Open upper arm wound (6) Hematuria Assessment & Plan: as per urology Aubrey Gutierrez Oct 08, 2020 17:32
--- NOTE | 2020-10-08 17:41 | General Progress Note ---
Subjective Allergies: Coded Allergies: VANCOMYCIN (Verified Allergy, Severe, hive, 09/28/20) Subjective NAD awake, calm tolerated TF Objective Last 24 Hour Vital Signs Date Time Temp Pulse Resp B/P (MAP) Pulse Ox O2 Delivery O2 Flow Rate FiO2 10/08/20 16:00 45 10/08/20 15:40 102 28 40 10/08/20 14:49 117 27 114/76 97 10/08/20 14:19 120 27 114/76 97 10/08/20 12:00 45 10/08/20 12:00 99.3 94 27 114/76 (89) 97 94 10/08/20 12:00 98 10/08/20 11:30 117 30 40 10/08/20 08:00 98.2 79 27 98/57 (71) 99 68 10/08/20 08:00 45 10/08/20 08:00 69 10/08/20 07:10 71 24 40 10/08/20 06:27 65 18 99/67 99 10/08/20 05:57 61 17 116/72 100 10/08/20 04:00 45 10/08/20 04:00 99.1 79 20 123/69 (87) 100 77 10/08/20 04:00 64 10/08/20 03:10 71 25 40 10/08/20 00:00 98.6 77 19 111/63 (79) 100 68 10/08/20 00:00 45 10/08/20 00:00 85 10/07/20 23:45 78 18 111/63 100 10/07/20 23:15 67 19 112/69 100 10/07/20 23:10 72 30 40 10/07/20 20:21 Mechanical Ventilator 10/07/20 20:00 101 10/07/20 20:00 45 10/07/20 20:00 97.0 77 20 136/99 (111) 100 10/07/20 19:30 58 20 45 Intake and Output 10/07/20 10/08/20 19:00 07:00 Intake Total 1020 ml 760 ml Output Total 1150 ml Balance -130 ml 760 ml Free Water 150 ml 100 ml Tube Feeding 720 ml 660 ml Blood Product 150 ml Output Urine Total 1150 ml # Bowel Movements 2 Laboratory Tests 10/08/20 05:15: White Blood Count 5.7, Red Blood Count 3.04L, Hemoglobin 8.8L, Hematocrit 25.7L, Mean Corpuscular Volume 85, Mean Corpuscular Hemoglobin 29.0, Mean Corpuscular Hemoglobin Concent 34.3, Red Cell Distribution Width 15.1H, Platelet Count 201, Mean Platelet Volume 6.5, Neutrophils (%) (Auto) 54.5, Lymphocytes (%) (Auto) 33.9, Monocytes (%) (Auto) 9.0, Eosinophils (%) (Auto) 1.4, Basophils (%) (Auto) 1.2, Sodium Level 140, Potassium Level 4.0, Chloride Level 107, Carbon Dioxide Level 33H, Anion Gap 0L, Blood Urea Nitrogen 18, Creatinine 1.0, Estimat Glomerular Filtration Rate > 60, Glucose Level 120H, Calcium Level 7.4L, Total Bilirubin 0.2, Aspartate Amino Transf (AST/SGOT) 26, Alanine Aminotransferase (ALT/SGPT) 29, Alkaline Phosphatase 68, Pro-B-Type Natriuretic Peptide [Pending], Total Protein 5.8L, Albumin 1.2L, Globulin 4.6, Albumin/Globulin Ratio 0.3L 10/08/20 15:45: Arterial Blood pH 7.482H, Arterial Blood Partial Pressure CO2 44.4, Arterial Blood Partial Pressure O2 75.1, Arterial Blood HCO3 32.5H, Arterial Blood Oxygen Saturation 96.0, Arterial Blood Base Excess 8.1H, Freddy Test Positive Height (Feet): 6 Height (Inches): 1.00 Weight (Pounds): 148 Objective Thin WM on vent/trach calm, awake Skin: no hematoma or ecchymosis HEENT NCAT supple, (+) trach coarse ronchi RR, slightly tachy abd soft flat ND, (+) GT no edema Assessment/Plan Status: stable Assessment/Plan: Assessment - resp failure - s/p PEG - anemia - OBS/Dementia - sepsis - diarrhea, C Diff (-) - Azotemia, resolved - CHF - malnutrition , low albumin - leukocytosis - hypernatremia Recommendations -Vent care / support - cards and pulm follow up - supportive care - abx - PPI - TF Deborah Cabrera MD Oct 08, 2020 17:41
--- NOTE | 2020-10-08 18:57 | NUR ---
RESPIRATORY NOTE: Received pt on AC VC 12, 450VT, 40%, PEEP +7. Pt is trach-dependent w/ a cuffed, Shiley 8 tube. Pt obtunded. B/S nguyen. rhonchi, sxn small to moderate amounts of thick, glover-yellow secretions. Vent plugged into red outlet, ambubag at bedside. Pt in no apparent distress at this time. Will continue plan of care.
--- NOTE | 2020-10-08 19:00 | NUR ---
NURSE HAND-OFF REPORT: Important Events on Shift: HR [address] Rios aware Patient Status: full code Diet: Pending Orders: [] Pending Results/Labs:[] Pending MD notification:[] Latest Vital Signs: Temperature 99.0 , Pulse 92 , B/P 120 /77 , Respiratory Rate 18 , O2 SAT 96 , Mechanical Ventilator, O2 Flow Rate 45.0 . Vital Sign Comment: stable EKG Rhythm: Sinus Tachycardia Rhythm change?: N MD Notified?: Y -Dr. Gabriel BENITEZ Response: No New Orders Received Latest Schultz Fall Score: 70 Fall Risk: High Risk Safety Measures: Call light Within Reach, Bed Alarm Zone 1, Side Rails Side Rails x3, Bed position Low and Locked. Fall Precautions: Yellow Socks Door Sign Patient Fall Education Report given to ARTEMIO Dougherty.
--- NOTE | 2020-10-08 19:15 | NUR ---
NURSE NOTES: Received report from ARTEMIO Love. Pt is seen lying in bed in semi- herman's position, pt is sleeping. Not restless. Pt is alert oriented x 1. Alert to name. Pt has Gtube intact and patent and flushing. pt has andrade draining dark sky urine. IV site patent and intact. Trac hto vent with settings as ordered-, tolerating well. Bed in lowest position, bed locked, continue to plan of care. Waiting for discharge, placement to [facility] awaiting.
--- NOTE | 2020-10-08 19:30 | NUR ---
NURSE NOTES: Noted Sinus tachy in cardiac catheterization technician, pt is flushing, warm to touch. Check temp -100.8, Sponge bath given. Meds given as ordered. Pt is drowsy but still restless extrimities keep moving and moving. VS WNL. except for temperature , O2 sat- 100%. Pt is tachypneic and tachycardic. DR. Rios previously aware of Sinus tachy in AM shift, NNO orders at this time,EKG done- Noted Sinus tachy per AM shift. Will continjue to monitor pt closely.
[2020-10-08 20:00] VITALS: BP 131/84
[2020-10-08] MEDS: Tamsulosin 0.4mg cap ORAL SCH (20:21)
[2020-10-08] MEDS: Acetaminophen 650mg/20.3ml NG PRN (20:21)
[2020-10-08] MEDS: Valproic Acid 250mg/5ml Liquid GT SCH (20:21)
--- NOTE | 2020-10-08 20:50 | NUR ---
NURSE NOTES: Rechecked Temp- 101.5. Ice bath given. Will continue to monitor pt closely.
--- NOTE | 2020-10-08 22:02 | Cardiology Progress Note ---
Subjective DATE OF SERVICE: Oct 08, 2020 Febrile to 101.1 S/P PRBC tx yesterday; hb now 8.8gm/dl. Remains on vent via trach, requiring 40-50% oxygen delivery. Remains congested; less edematous. BP remains mostly controlled. Monitor: sinus/ sinus tachycardia. 2/) 7.48/44/75 Objective Last 24 Hour Vital Signs Date Time Temp Pulse Resp B/P (MAP) Pulse Ox O2 Delivery O2 Flow Rate FiO2 10/08/20 20:51 101.8 10/08/20 20:00 100.8 118 28 131/84 (100) 99 118 10/08/20 20:00 45 10/08/20 20:00 92 10/08/20 18:54 92 18 40 10/08/20 16:00 45 10/08/20 16:00 99.0 104 31 120/77 (91) 96 104 10/08/20 16:00 117 10/08/20 15:40 102 28 40 10/08/20 14:49 117 27 114/76 97 10/08/20 14:19 120 27 114/76 97 10/08/20 12:00 45 10/08/20 12:00 99.3 94 27 114/76 (89) 97 94 10/08/20 12:00 98 10/08/20 11:30 117 30 40 10/08/20 08:00 98.2 79 27 98/57 (71) 99 68 10/08/20 08:00 45 10/08/20 08:00 69 10/08/20 07:10 71 24 40 10/08/20 06:27 65 18 99/67 99 10/08/20 05:57 61 17 116/72 100 10/08/20 04:00 45 10/08/20 04:00 99.1 79 20 123/69 (87) 100 77 10/08/20 04:00 64 10/08/20 03:10 71 25 40 10/08/20 00:00 98.6 77 19 111/63 (79) 100 68 10/08/20 00:00 45 10/08/20 00:00 85 10/07/20 23:45 78 18 111/63 100 10/07/20 23:15 67 19 112/69 100 10/07/20 23:10 72 30 40 ROS: no change from my evaluation of 09/10/20. HEENT: Mechanically Ventilated, Thin Trach secretions RHYTHM: NSR, ST LUNGS: bilat. rhonchi and rales, trach site clean CARDIAC: normal rate, regular rhythm, normal S1 and S2 ABDOMEN: normal bowel sounds, soft, other - sacral decub EXTREMITIES: +1 edema Laboratory Tests Test 10/08/20 05:15 10/08/20 15:45 White Blood Count 5.7 K/UL (4.8-10.8) Red Blood Count 3.04 M/UL (4.70-6.10) L Hemoglobin 8.8 G/DL (14.2-18.0) L Hematocrit 25.7 % (42.0-52.0) L Mean Corpuscular Volume 85 FL (80-99) Mean Corpuscular Hemoglobin 29.0 PG (27.0-31.0) Mean Corpuscular Hemoglobin Concent 34.3 G/DL (32.0-36.0) Red Cell Distribution Width 15.1 % (11.6-14.8) H Platelet Count 201 K/UL (150-450) Mean Platelet Volume 6.5 FL (6.5-10.1) Neutrophils (%) (Auto) 54.5 % (45.0-75.0) Lymphocytes (%) (Auto) 33.9 % (20.0-45.0) Monocytes (%) (Auto) 9.0 % (1.0-10.0) Eosinophils (%) (Auto) 1.4 % (0.0-3.0) Basophils (%) (Auto) 1.2 % (0.0-2.0) Sodium Level 140 MMOL/L (136-145) Potassium Level 4.0 MMOL/L (3.5-5.1) Chloride Level 107 MMOL/L (98-107) Carbon Dioxide Level 33 MMOL/L (21-32) H Anion Gap 0 mmol/L (5-15) L Blood Urea Nitrogen 18 mg/dL (7-18) Creatinine 1.0 MG/DL (0.55-1.30) Estimat Glomerular Filtration Rate > 60 mL/min (>60) Glucose Level 120 MG/DL (74-106) H Calcium Level 7.4 MG/DL (8.5-10.1) L Total Bilirubin 0.2 MG/DL (0.2-1.0) Aspartate Amino Transf (AST/SGOT) 26 U/L (15-37) Alanine Aminotransferase (ALT/SGPT) 29 U/L (12-78) Alkaline Phosphatase 68 U/L (46-116) Pro-B-Type Natriuretic Peptide Pending Total Protein 5.8 G/DL (6.4-8.2) L Albumin 1.2 G/DL (3.4-5.0) L Globulin 4.6 g/dL Albumin/Globulin Ratio 0.3 (1.0-2.7) L Arterial Blood pH 7.482 (7.350-7.450) Arterial Blood Partial Pressure CO2 44.4 mmHg (35.0-45.0) Arterial Blood Partial Pressure O2 75.1 mmHg (75.0-100.0) Arterial Blood HCO3 32.5 mmol/L (22.0-26.0) H Arterial Blood Oxygen Saturation 96.0 % (95-100) Arterial Blood Base Excess 8.1 (-2-2) H Freddy Test Positive Assessment/Plan Assessment/Plan Respiratory failure with hypoxia - s/p tracheostomy Sepsis Aspiration PNA Recurring shock - recovered Diarrhea Dehydration/hypernatremia corrected Acute myocardial ischemia Acute renal failure HC assoc PNA UTI Transaminitis, acute CVA/dementia Paroxysmal sinus bradycardia and tachycardia Acute diastolic CHF Severe protein/calorie malnutrition with dysphagia; now s/p PEG Hypokalemia Remains CRITICAL & GUARDED Vent support with trach care. Antimicrobials per ID. ?reculture for fever Replace lytes as needed. DVT prophyl Cardiac monitoring Diuresis based on clinical parameters; aldactone to spare potassium loss. Will monitor lytes, and trend BNP. Madi Rios MD Oct 08, 2020 22:02
[2020-10-09] VITALS: BP 105/72
--- NOTE | 2020-10-09 00:56 | NUR ---
NURSE NOTES: FF up Xray to do the CXR bedside.
--- NOTE | 2020-10-09 01:32 | Diagnostic Imaging Report ---
Chest one view History: Abnormal chest x-ray Comparison: 09/21/2020 Findings: Interval placement of tracheostomy tube with tip in mid trachea. NG tube has been removed Left perihilar, right lower lung infiltrates. Trace left pleural effusion. Bones are unremarkable. Mediastinum, heart are unremarkable. Impression: 1. Improving lung infiltrate with moderate residual changes around the left perihilar, left lower lung and right lower lung. 2. Satisfactory position of tracheostomy tube with tip in mid trachea
--- NOTE | 2020-10-09 02:05 | NUR ---
NURSE NOTES: Cleaned pt, sponge bath given, pt is drowsy but awaken by light pain. Pt has large bowel movement soft in large amount. CXR done, awaiting for results. Bed in lowest position, call light within reach. No fever noted. Continue to plan of care.
[2020-10-09 04:00] VITALS: BP 110/71
--- NOTE | 2020-10-09 05:43 | NUR ---
NURSE NOTES: pt is sleeping in bed, awaken by light pain and name. Bed in lowest position, call light within reach.
--- NOTE | 2020-10-09 07:15 | NUR ---
RESPIRATORY NOTE: PT RECEIVED STABLE ON CMV WITH CURRENT SETTINGS: AC/VC 12, 450, 40%, +7. AIRWAY IS MIDLINE SECURE AND PATENT. ALARMS ARE ON AND AUDIBLE. VENT CIRCUIT IS SECURE AND OUT OF THE WAY. NO S/S OF RESPIRATORY DISTRESS NOTED AT THIS TIME. WILL CONTINUE TO MONITOR.
--- NOTE | 2020-10-09 07:20 | NUR ---
NURSE HAND-OFF REPORT: Important Events on Shift: Fever- 100.8. Dark sky urine, STAC- 118 Patient Status: Guarded Diet: GTF Pending Orders: None Pending Results/Labs: None Pending MD notification: None Latest Vital Signs: Temperature 98.1 , Pulse 76 , B/P 110 /71 , Respiratory Rate 22 , O2 SAT 99 , Mechanical Ventilator, O2 Flow Rate 45.0 . Vital Sign Comment: Fever EKG Rhythm: Sinus Rhythm Rhythm change?: N MD Notified?: N -Dr. Gabriel linares MD Response: No New Orders Received Latest Schultz Fall Score: 70 Fall Risk: High Risk Safety Measures: Call light Within Reach, Bed Alarm Zone 2, Side Rails Side Rails x3, Bed position Low and Locked. Fall Precautions: Yellow Socks Door Sign Patient Fall Education Report given to [Daryl, RN].
--- NOTE | 2020-10-09 07:20 | NUR ---
NURSE NOTES: Received report from Princess ULLOA.
[2020-10-09 08:00] VITALS: BP 108/69
--- NOTE | 2020-10-09 08:45 | NUR ---
NURSE NOTES: Pt. in bed, sleeping but response to tactile stimuli. No sign of distress. Mech. vent. dependent with setting of AC12/VT500/Fi O2 at 40%/P8. No grimacing noted. HOB elevated at all times. On GTF Jevity 1.2 at 60cc/hr. Tolerating well. No n/v noted. F/C in placed patent/intact draining sky colored urine. IV line at left AC #20g. and left FA #20g. in placed patent/intact TKO. Bed in low position, locked. Call light within reach. Will cont. to monitor.
[2020-10-09] MEDS: Spironolactone 25mg tab GT SCH (08:46)
[2020-10-09] MEDS: Multivitamins W/Minerals 15 ML UDC NG SCH (08:46)
[2020-10-09] MEDS: Zinc Sulfate 220mg GT SCH (08:46)
[2020-10-09] MEDS: Ascorbic Acid 500mg tab NG SCH (08:46)
--- NOTE | 2020-10-09 09:08 | Urology Progress Note ---
Assessment/Plan Status: stable Assessment/Plan: 1. Gross hematuria. 2. Pyuria and possible UTI. 3. Proteinuria. 4. BPH. 5. Urinary retention. 6. Probable neurogenic bladder. 7. Possible sepsis. monitor clinically maintain andrade, secured to pt's leg hand irrigated and do PRN s/p abx flomax and proscar cysto electively voiding trial at some point? or change andrade Subjective Allergies: Coded Allergies: VANCOMYCIN (Verified Allergy, Severe, hive, 09/28/20) Subjective remains on vent, trach 09/27 Objective Last 24 Hour Vital Signs Date Time Temp Pulse Resp B/P (MAP) Pulse Ox O2 Delivery O2 Flow Rate FiO2 10/09/20 04:00 45 10/09/20 04:00 Mechanical Ventilator 10/09/20 04:00 76 10/09/20 04:00 98.1 72 22 110/71 (84) 99 66 10/09/20 03:04 75 24 40 10/09/20 00:00 86 10/09/20 00:00 Mechanical Ventilator 10/09/20 00:00 98.2 66 30 105/72 (83) 99 66 10/08/20 22:50 102 27 40 10/08/20 20:51 101.8 10/08/20 20:00 100.8 118 28 131/84 (100) 99 118 10/08/20 20:00 45 10/08/20 20:00 92 10/08/20 18:54 92 18 40 10/08/20 16:00 45 10/08/20 16:00 99.0 104 31 120/77 (91) 96 104 10/08/20 16:00 117 10/08/20 15:40 102 28 40 10/08/20 14:49 117 27 114/76 97 10/08/20 14:19 120 27 114/76 97 10/08/20 12:00 45 10/08/20 12:00 99.3 94 27 114/76 (89) 97 94 10/08/20 12:00 98 10/08/20 11:30 117 30 40 Intake and Output 10/08/20 10/09/20 19:00 07:00 Intake Total 810 ml 710 ml Output Total 2600 ml 370 ml Balance -1790 ml 340 ml Free Water 90 ml 50 ml Tube Feeding 720 ml 660 ml Output Urine Total 2600 ml 370 ml # Bowel Movements 3 Microbiology Date/Time Source Procedure Growth Status 09/24/20 10:50 Nasopharynx SARS-CoV-2 RdRp Gene Assay - Final Complete 09/18/20 18:30 Stool Clostridium difficile Toxin Assay - Final Complete 09/17/20 12:58 Blood Blood Culture - Final NO GROWTH AFTER 5 DAYS Complete 09/10/20 20:05 Urine,Clean Catch Urine Culture - Final NO GROWTH AFTER 48 HOURS Complete 09/10/20 17:15 Rectum VRE Culture - Final Enterococcus Faecalis - Vre Complete Current Medications Medications (Trade) Dose Ordered Sig/Aleksander Route PRN Reason Start Time Stop Time Status Last Admin Dose Admin Acetaminophen (Tylenol) 650 mg Q4H PRN NG Temp >100.5 09/10/20 23:15 10/10/20 23:14 10/08/20 20:21 Acetaminophen (Tylenol) 650 mg Q6H PRN NG pain 1-6 10/08/20 15:30 11/07/20 15:14 Al Hydroxide/Mg Hydroxide (Mylanta) 30 ml Q4H PRN NG Constipation 09/11/20 00:15 10/10/20 23:14 Ascorbic Acid (Vitamin C) 250 mg DAILY NG 09/26/20 09:00 10/18/20 08:59 10/09/20 08:46 Diphenhydramine HCl (Benadryl) 25 mg Q6H PRN IVP Itching 09/27/20 12:15 10/27/20 12:14 10/07/20 20:47 Diphenoxylate HCl/ Atropine (Lomotil) 2.5 mg Q4H PRN ORAL Diarrhea 09/20/20 08:15 10/20/20 08:14 Famotidine (Pepcid) 20 mg BID GT 10/04/20 09:00 01/02/21 08:59 10/09/20 08:46 Finasteride (Proscar) 5 mg DAILY ORAL 09/13/20 09:00 12/12/20 08:59 10/09/20 08:46 Furosemide (Lasix) 40 mg DAILY IV 10/03/20 09:00 11/02/20 08:59 10/09/20 08:46 Hydromorphone HCl (Dilaudid) 0.5 mg Q4H PRN IVP SEVERE PAIN 10/08/20 15:18 10/15/20 15:17 Lorazepam (Ativan) 1 mg Q4H PRN GT For Anxiety 10/07/20 22:00 10/14/20 21:59 10/08/20 14:19 Multivitamins (Multivitamins W/ Minerals 15ml Liquid) 15 ml DAILY NG 09/26/20 09:00 10/26/20 08:59 10/09/20 08:46 Ondansetron HCl (Zofran) 4 mg Q6H PRN IVP Nausea & Vomiting 09/10/20 23:15 10/10/20 23:14 Spironolactone (Aldactone) 25 mg DAILY GT 10/05/20 09:00 11/04/20 08:59 10/09/20 08:46 Tamsulosin HCl (Flomax) 0.4 mg BEDTIME ORAL 09/12/20 21:00 10/12/20 20:59 10/08/20 20:21 Valproic Acid (Depakene) 1,000 mg BEDTIME GT 10/06/20 21:00 10/31/20 20:59 10/08/20 20:21 Zinc Sulfate (Zinc Sulfate) 220 mg DAILY GT 10/06/20 09:00 01/04/21 08:59 10/09/20 08:46 Laboratory Tests 10/08/20 15:45: Arterial Blood pH 7.482H, Arterial Blood Partial Pressure CO2 44.4, Arterial Blood Partial Pressure O2 75.1, Arterial Blood HCO3 32.5H, Arterial Blood Oxygen Saturation 96.0, Arterial Blood Base Excess 8.1H, Freddy Test Positive Height (Feet): 6 Height (Inches): 1.00 Weight (Pounds): 148 Objective exam stable urine clearing Levi Brunson MD Oct 09, 2020 09:08
--- NOTE | 2020-10-09 09:20 | NUR ---
FERMENTATION OPERATOR NOTE CALL MADE TO [facility] [phone] IN RE TO REFERRAL FRO PLACEMENT. S/W HORTENSIA WHO STATED THAT JAIDEN YANCY, WILL BE IN AT 11 AM. WILL FOLLOW UP. Addendum: 10/09/20 at 1221 by JO SCRUGGS LVN INCORRECT PATIENT. PLEASE DISREGARD.
--- NOTE | 2020-10-09 09:33 | General Progress Note ---
Subjective ROS Limited/Unobtainable: Yes Constitutional: Reports: fever, malaise, weakness HEENT: Reports: no symptoms Cardiovascular: Reports: edema Respiratory: Reports: cough, shortness of breath, sputum Gastrointestinal/Abdominal: Reports: difficulty swallowing Genitourinary: Reports: no symptoms Neurologic/Psychiatric: Reports: pre-existing deficit Endocrine: Reports: no symptoms Hematologic/Lymphatic: Reports: anemia Allergies: Coded Allergies: VANCOMYCIN (Verified Allergy, Severe, hive, 09/28/20) All Systems: reviewed and negative except above Subjective no events. o2 sats improving. alert but confused. anxious. contracted, intermittent fevers. labs reviewed. decreased h/h. no bleeding Objective Last 24 Hour Vital Signs Date Time Temp Pulse Resp B/P (MAP) Pulse Ox O2 Delivery O2 Flow Rate FiO2 10/09/20 07:15 88 28 40 10/09/20 04:00 45 10/09/20 04:00 Mechanical Ventilator 10/09/20 04:00 76 10/09/20 04:00 98.1 72 22 110/71 (84) 99 66 10/09/20 03:04 75 24 40 10/09/20 00:00 86 10/09/20 00:00 Mechanical Ventilator 10/09/20 00:00 98.2 66 30 105/72 (83) 99 66 10/08/20 22:50 102 27 40 10/08/20 20:51 101.8 10/08/20 20:00 100.8 118 28 131/84 (100) 99 118 10/08/20 20:00 45 10/08/20 20:00 92 10/08/20 18:54 92 18 40 10/08/20 16:00 45 10/08/20 16:00 99.0 104 31 120/77 (91) 96 104 10/08/20 16:00 117 10/08/20 15:40 102 28 40 10/08/20 14:49 117 27 114/76 97 10/08/20 14:19 120 27 114/76 97 10/08/20 12:00 45 10/08/20 12:00 99.3 94 27 114/76 (89) 97 94 10/08/20 12:00 98 10/08/20 11:30 117 30 40 Intake and Output 10/08/20 10/09/20 19:00 07:00 Intake Total 810 ml 710 ml Output Total 2600 ml 370 ml Balance -1790 ml 340 ml Free Water 90 ml 50 ml Tube Feeding 720 ml 660 ml Output Urine Total 2600 ml 370 ml # Bowel Movements 3 Laboratory Tests 10/08/20 15:45: Arterial Blood pH 7.482H, Arterial Blood Partial Pressure CO2 44.4, Arterial Blood Partial Pressure O2 75.1, Arterial Blood HCO3 32.5H, Arterial Blood Oxygen Saturation 96.0, Arterial Blood Base Excess 8.1H, Freddy Test Positive Height (Feet): 6 Height (Inches): 1.00 Weight (Pounds): 148 Objective General Appearance: WD/WN, confused. EENT: normal ENT inspection. +trach, dressing clean Neck: normal alignment, supple Cardiovascular: normal rate, regular rhythm Respiratory/Chest: rhonchi - bilaterally. diminished BS Abdomen: normal bowel sounds, non tender, soft, no organomegaly Edema: no edema noted Leg (L), no edema noted Leg (R) Neurologic: manager nuclear II-XII grossly normal, responsive, disoriented Lymphatic: normal anterior cervical (L), normal anterior cervical (R), normal posterior cervical (L), normal posterior cervical (R) Assessment/Plan Problem List: (1) PNA (pneumonia) ICD Codes: J18.9 - Pneumonia, unspecified organism SNOMED: 973130140 (2) UTI (urinary tract infection) ICD Codes: N39.0 - Urinary tract infection, site not specified SNOMED: 38206741 (3) Fever ICD Codes: R50.9 - Fever, unspecified SNOMED: 683605219 Qualifiers: Qualified Codes: R50.9 - Fever, unspecified (4) Decubitus skin ulcer ICD Codes: L89.90 - Pressure ulcer of unspecified site, unspecified stage SNOMED: 055904101 (5) Malnutrition ICD Codes: E46 - Unspecified protein-calorie malnutrition SNOMED: 35926162 (6) Severe sepsis ICD Codes: A41.9 - Sepsis, unspecified organism; R65.20 - Severe sepsis without septic shock SNOMED: 29361816 (7) Hematuria ICD Codes: R31.9 - Hematuria, unspecified SNOMED: 02566436 Status: stable Assessment/Plan: monitor off abx resp rx and suctioning trach care titrate fio2 monitor abg skin care tube feeds- tolerating monitor labs transfuse prn monitor for bleeding poor prognosis dc planning Jason Layne MD Oct 09, 2020 09:33
--- NOTE | 2020-10-09 09:58 | Infectious Diseases Prog Note ---
Assessment/Plan Assessment/Plan A 1. Pneumonia with MRSA treated COVID19 test is negative. 2. Dementia. 3. Leukocytosis 4. Urinary tract infection treated 5. 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 BPH 8. New fever P 1. Sputum culture, UA, Urine culture 2. Start on Zosyn Subjective ROS Limited/Unobtainable: Yes Constitutional: Reports: fever, other - Hd=476.8 Respiratory: Reports: productive cough Allergies: Coded Allergies: VANCOMYCIN (Verified Allergy, Severe, hive, 09/28/20) Objective Last 24 Hour Vital Signs Date Time Temp Pulse Resp B/P (MAP) Pulse Ox O2 Delivery O2 Flow Rate FiO2 10/09/20 07:15 88 28 40 10/09/20 04:00 45 10/09/20 04:00 Mechanical Ventilator 10/09/20 04:00 76 10/09/20 04:00 98.1 72 22 110/71 (84) 99 66 10/09/20 03:04 75 24 40 10/09/20 00:00 86 10/09/20 00:00 Mechanical Ventilator 10/09/20 00:00 98.2 66 30 105/72 (83) 99 66 10/08/20 22:50 102 27 40 10/08/20 20:51 101.8 10/08/20 20:00 100.8 118 28 131/84 (100) 99 118 10/08/20 20:00 45 10/08/20 20:00 92 10/08/20 18:54 92 18 40 10/08/20 16:00 45 10/08/20 16:00 99.0 104 31 120/77 (91) 96 104 10/08/20 16:00 117 10/08/20 15:40 102 28 40 10/08/20 14:49 117 27 114/76 97 10/08/20 14:19 120 27 114/76 97 10/08/20 12:00 45 10/08/20 12:00 99.3 94 27 114/76 (89) 97 94 10/08/20 12:00 98 10/08/20 11:30 117 30 40 Height (Feet): 6 Height (Inches): 1.00 Weight (Pounds): 148 HEENT: status post trach Respiratory/Chest: lungs clear, other - on ventilator Cardiovascular: normal rate Abdomen: soft, non tender, other - GT feeding Extremities: no edema Neurologic/Psychiatric: aphasia Musculoskeletal: atrophy Laboratory Tests Test 10/08/20 15:45 Arterial Blood pH 7.482 (7.350-7.450) Arterial Blood Partial Pressure CO2 44.4 mmHg (35.0-45.0) Arterial Blood Partial Pressure O2 75.1 mmHg (75.0-100.0) Arterial Blood HCO3 32.5 mmol/L (22.0-26.0) H Arterial Blood Oxygen Saturation 96.0 % (95-100) Arterial Blood Base Excess 8.1 (-2-2) H Freddy Test Positive Current Medications Medications (Trade) Dose Ordered Sig/Aleksander Route PRN Reason Start Time Stop Time Status Last Admin Dose Admin Acetaminophen (Tylenol) 650 mg Q4H PRN NG Temp >100.5 09/10/20 23:15 10/10/20 23:14 10/08/20 20:21 Acetaminophen (Tylenol) 650 mg Q6H PRN NG pain 1-6 10/08/20 15:30 11/07/20 15:14 Al Hydroxide/Mg Hydroxide (Mylanta) 30 ml Q4H PRN NG Constipation 09/11/20 00:15 10/10/20 23:14 Ascorbic Acid (Vitamin C) 250 mg DAILY NG 09/26/20 09:00 10/18/20 08:59 10/09/20 08:46 Diphenhydramine HCl (Benadryl) 25 mg Q6H PRN IVP Itching 09/27/20 12:15 10/27/20 12:14 10/07/20 20:47 Diphenoxylate HCl/ Atropine (Lomotil) 2.5 mg Q4H PRN ORAL Diarrhea 09/20/20 08:15 10/20/20 08:14 Famotidine (Pepcid) 20 mg BID GT 10/04/20 09:00 01/02/21 08:59 10/09/20 08:46 Finasteride (Proscar) 5 mg DAILY ORAL 09/13/20 09:00 12/12/20 08:59 10/09/20 08:46 Furosemide (Lasix) 40 mg DAILY IV 10/03/20 09:00 11/02/20 08:59 10/09/20 08:46 Hydromorphone HCl (Dilaudid) 0.5 mg Q4H PRN IVP SEVERE PAIN 10/08/20 15:18 10/15/20 15:17 Lorazepam (Ativan) 1 mg Q4H PRN GT For Anxiety 10/07/20 22:00 10/14/20 21:59 10/08/20 14:19 Multivitamins (Multivitamins W/ Minerals 15ml Liquid) 15 ml DAILY NG 09/26/20 09:00 10/26/20 08:59 10/09/20 08:46 Ondansetron HCl (Zofran) 4 mg Q6H PRN IVP Nausea & Vomiting 09/10/20 23:15 10/10/20 23:14 Spironolactone (Aldactone) 25 mg DAILY GT 10/05/20 09:00 11/04/20 08:59 10/09/20 08:46 Tamsulosin HCl (Flomax) 0.4 mg BEDTIME ORAL 09/12/20 21:00 10/12/20 20:59 10/08/20 20:21 Valproic Acid (Depakene) 1,000 mg BEDTIME GT 10/06/20 21:00 10/31/20 20:59 10/08/20 20:21 Zinc Sulfate (Zinc Sulfate) 220 mg DAILY GT 10/06/20 09:00 01/04/21 08:59 10/09/20 08:46 Bradley Gil MD Oct 09, 2020 09:58
[2020-10-09] MEDS: DiphenhydrAMINE 50mg/ml Inj IVP PRN ×2 (10:48→23:30)
[2020-10-09 12:00] VITALS: BP 109/79
[2020-10-09] MEDS: Piperacillin/Tazobactam 3.375 GM in NS 110 ML IVPB SCH ×2 (12:17→21:11)
--- NOTE | 2020-10-09 12:22 | Surgery Progress Note ---
Surgery Progress Note Subjective Procedure Performed tracheostomy Symptoms: improved, tolerating diet, passing flatus Objective Last 24 Hour Vital Signs Date Time Temp Pulse Resp B/P (MAP) Pulse Ox O2 Delivery O2 Flow Rate FiO2 10/09/20 08:00 98.4 70 22 108/69 (82) 99 70 10/09/20 08:00 45 10/09/20 08:00 Mechanical Ventilator 10/09/20 07:50 77 10/09/20 07:15 88 28 40 10/09/20 04:00 45 10/09/20 04:00 Mechanical Ventilator 10/09/20 04:00 76 10/09/20 04:00 98.1 72 22 110/71 (84) 99 66 10/09/20 03:04 75 24 40 10/09/20 00:00 86 10/09/20 00:00 Mechanical Ventilator 10/09/20 00:00 98.2 66 30 105/72 (83) 99 66 10/08/20 22:50 102 27 40 10/08/20 20:51 101.8 10/08/20 20:00 100.8 118 28 131/84 (100) 99 118 10/08/20 20:00 45 10/08/20 20:00 92 10/08/20 18:54 92 18 40 10/08/20 16:00 45 10/08/20 16:00 99.0 104 31 120/77 (91) 96 104 10/08/20 16:00 117 10/08/20 15:40 102 28 40 10/08/20 14:49 117 27 114/76 97 10/08/20 14:19 120 27 114/76 97 I&O Intake and Output 10/08/20 10/09/20 19:00 07:00 Intake Total 810 ml 710 ml Output Total 2600 ml 370 ml Balance -1790 ml 340 ml Free Water 90 ml 50 ml Tube Feeding 720 ml 660 ml Output Urine Total 2600 ml 370 ml # Bowel Movements 3 Dressing: saturated Wound: other Cardiovascular: RSR Respiratory: decreased breath sounds Abdomen: soft, flat, non-tender, present bowel sounds, non-distended Extremities: no edema, no tenderness, no cyanosis Laboratory Tests Test 10/08/20 15:45 10/09/20 12:00 Arterial Blood pH 7.482 (7.350-7.450) Arterial Blood Partial Pressure CO2 44.4 mmHg (35.0-45.0) Arterial Blood Partial Pressure O2 75.1 mmHg (75.0-100.0) Arterial Blood HCO3 32.5 mmol/L (22.0-26.0) H Arterial Blood Oxygen Saturation 96.0 % (95-100) Arterial Blood Base Excess 8.1 (-2-2) H Freddy Test Positive White Blood Count Pending Red Blood Count Pending Hemoglobin Pending Hematocrit Pending Mean Corpuscular Volume Pending Mean Corpuscular Hemoglobin Pending Mean Corpuscular Hemoglobin Concent Pending Red Cell Distribution Width Pending Platelet Count Pending Mean Platelet Volume Pending Neutrophils (%) (Auto) Pending Lymphocytes (%) (Auto) Pending Monocytes (%) (Auto) Pending Eosinophils (%) (Auto) Pending Basophils (%) (Auto) Pending Sodium Level Pending Potassium Level Pending Chloride Level Pending Carbon Dioxide Level Pending Blood Urea Nitrogen Pending Creatinine Pending Estimat Glomerular Filtration Rate Pending Glucose Level Pending Calcium Level Pending Plan Problems: (1) Fever Assessment & Plan: maybe developing pneumonia cont abx pulm input thank you (2) Decubitus skin ulcer Assessment & Plan: Patient identified on admission to have multiple scabs on the left arm. mild open scabs with eschar. no drainage. no significant cellulitis. bruising no bilateral extremities noted. no signs of abuse. likely from agitation Sacral coccygeal noted to have a DTI 4.3X2.5CM. which is dark purple . RECOMMEND-CLEAN WITH SALINE, PAT DRY AND APPLY CALAZINE. COVER WITH OPTIFOAM DRESSING. REPLACE EVERY 3 DAYS OR NEEDED LEFT ISCHIUM- STAGE I PRESSURE ULCER MEASURES 4.5X1.7CM. NON-BLANCHABLE ERYTHEMA. RECOMMEND- APPLY CALAZINE AND COVER WITH OPTIFOAM DRESSING. REPLACE EVERY 7 DAYS. 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 Roman is a 70 year old male BIBA to ED of [facility] on 09/10/2020 around 14:00 due to fever. He was found to be hypotensive 91/55 (67), Temp: 100.0, leukocytosis 20.8k and subsequently transferred to ICU for septic shock. The blood culture is reportedly positive for gram positive cocci. NG tube was placed, KUB confirmed the placement to day. Pt is clinically stable with leukocytosis 20.1, improved BUN and creatine, stable hemodynamic without vasopressor. Findings: Mr. Roman is disoriented. He does ot follow commands at this time. Oral cavity is noted to be dried blood concretion likely from NG trauma. No active bleeding site is seen. Due to his level f alertness, already NG tube is in placed, PO trial was not done at this time. Transferred out ICU last night. He is non on tele. Issues: multiple wounds, s.p balaji/nasal/pharyngeal bleeding with blood culture Gram positive cocci leukocytosis trending down from 20k-20k-16k BUN/Creatine trending down from 93/1.9-79/1.3-54/1.1 Temp: 98.1~98.7, Pulse: 62~72, BP: 105/67~120/48, SPO2 98~100% on 2 liter S: Oral cavity is better condition comparison to yesterday. The mucosa is severely erythema without active bleeding. Limited level of alertness for direct therapy. NG in placed O: 1. Laryngeal palpation to trigger spontaneous cough and swallow: Pt triggered cough with laryngeal palpation. Approximately 5~10 seconds after coughing, he triggered swallow. based on this observation, he presents with copious secretion in pharynx and larynx. He continued to have poor secretion management at laryngeal level at this time. NO PO trial was given due to poor secretion at the level of air way with low level of alertness. A: 1. Probable aspiration of his own secretion with poor ability to cough and swallow 2. Dysphagia P: 1. NPO for now 2. Observe his secretion, and level of alertness for PO readiness. DAILY ESTIMATED NEEDS: Needs based on Wound, underweight/ 55kg 30-35 kcals/kg 6729-4536 total kcals 1.25-2 g protein/kg 69-110 g total protein 25-30 mL/kg 6500-0581 total fluid mLs NUTRITION DIAGNOSIS: Increased kcal/prot needs R/T wound healing and underweight status as evidenced by pt admitted w/ wounds including DTI 2 coccyx and stage 1 @ lt ischium, pt @ 73% IBW w/ low BMI per guidelines, s/p NGT insertion, on NGT feeds. CURRENT TF:Jevity 1.2 @ 50ml/hr x 24 hrs ENTERAL NUTRITION RECOMMENDATIONS: Jevity 1.2 @ 60ml/hr x 24 hrs to provide 1440ml, 1728kcal, 80g prot, 1160ml free water * As medically appropriate, increase goal rate to 60ml/hr x 24 hrs to meet 100% est kcal/prot needs * HOB over 30 degrees/ without IVF, H2O flush of 100ml q 8hrs ADDITIONAL RECOMMENDATIONS: * Calibrated daily bedscale wt Per SNF: HT=70" * Wound healing: TF rec @ goal will provide 100% RDI add Vit C 250mg QD, ZnSO4 220mg QD x 10days, Davidson BID via NGT * Monitor BGs, need for NISS w/ TF * Monitor lytes, replete as needed- high risk for refeeding syndrome -> check f/up phos and mag (4) Severe sepsis Assessment & Plan: will likely need trach and peg. patient needs protected airway and nutrition full code no family and unable to consent medically necessary. will plan soon (5) Open upper arm wound (6) Hematuria Assessment & Plan: as per urology Aubrey Gutierrez Oct 09, 2020 12:22
[2020-10-09 12:27] LABS: BASOPHILS % (AUTO) 1.2 % (0.0-2.0); EOSINOPHILS % (AUTO) 1.2 % (0.0-3.0); HEMATOCRIT 27.8 % (42.0-52.0); HEMOGLOBIN 9.1 G/DL (14.2-18.0); LYMPHOCYTES % (AUTO) 28.3 % (20.0-45.0); MEAN CORPUSCULAR VOLUME 87 FL (80-99); MONOCYTES % (AUTO) 8.2 % (1.0-10.0); NEUTROPHILS % (AUTO) 61.1 % (45.0-75.0); PLATELET COUNT 177 K/UL (150-450); RED BLOOD COUNT 3.18 M/UL (4.70-6.10); WHITE BLOOD COUNT 6.8 K/UL (4.8-10.8)
--- NOTE | 2020-10-09 12:31 | General Progress Note ---
Subjective ROS Limited/Unobtainable: No Allergies: Coded Allergies: VANCOMYCIN (Verified Allergy, Severe, hive, 09/28/20) Objective Last 24 Hour Vital Signs Date Time Temp Pulse Resp B/P (MAP) Pulse Ox O2 Delivery O2 Flow Rate FiO2 10/09/20 08:00 98.4 70 22 108/69 (82) 99 70 10/09/20 08:00 45 10/09/20 08:00 Mechanical Ventilator 10/09/20 07:50 77 10/09/20 07:15 88 28 40 10/09/20 04:00 45 10/09/20 04:00 Mechanical Ventilator 10/09/20 04:00 76 10/09/20 04:00 98.1 72 22 110/71 (84) 99 66 10/09/20 03:04 75 24 40 10/09/20 00:00 86 10/09/20 00:00 Mechanical Ventilator 10/09/20 00:00 98.2 66 30 105/72 (83) 99 66 10/08/20 22:50 102 27 40 10/08/20 20:51 101.8 10/08/20 20:00 100.8 118 28 131/84 (100) 99 118 10/08/20 20:00 45 10/08/20 20:00 92 10/08/20 18:54 92 18 40 10/08/20 16:00 45 10/08/20 16:00 99.0 104 31 120/77 (91) 96 104 10/08/20 16:00 117 10/08/20 15:40 102 28 40 10/08/20 14:49 117 27 114/76 97 10/08/20 14:19 120 27 114/76 97 Intake and Output 10/08/20 10/09/20 19:00 07:00 Intake Total 810 ml 710 ml Output Total 2600 ml 370 ml Balance -1790 ml 340 ml Free Water 90 ml 50 ml Tube Feeding 720 ml 660 ml Output Urine Total 2600 ml 370 ml # Bowel Movements 3 Laboratory Tests 10/08/20 15:45: Arterial Blood pH 7.482H, Arterial Blood Partial Pressure CO2 44.4, Arterial Blood Partial Pressure O2 75.1, Arterial Blood HCO3 32.5H, Arterial Blood Oxygen Saturation 96.0, Arterial Blood Base Excess 8.1H, Freddy Test Positive 10/09/20 12:00: White Blood Count [Pending], Red Blood Count [Pending], Hemoglobin [Pending], Hematocrit [Pending], Mean Corpuscular Volume [Pending], Mean Corpuscular Hemoglobin [Pending], Mean Corpuscular Hemoglobin Concent [Pending], Red Cell Distribution Width [Pending], Platelet Count [Pending], Mean Platelet Volume [Pending], Neutrophils (%) (Auto) [Pending], Lymphocytes (%) (Auto) [Pending], Monocytes (%) (Auto) [Pending], Eosinophils (%) (Auto) [Pending], Basophils (%) (Auto) [Pending], Sodium Level [Pending], Potassium Level [Pending], Chloride Level [Pending], Carbon Dioxide Level [Pending], Blood Urea Nitrogen [Pending], Creatinine [Pending], Estimat Glomerular Filtration Rate [Pending], Glucose Level [Pending], Calcium Level [Pending] Height (Feet): 6 Height (Inches): 1.00 Weight (Pounds): 148 General Appearance: no apparent distress EENT: normal ENT inspection Neck: supple Cardiovascular: normal rate Respiratory/Chest: decreased breath sounds Abdomen: normal bowel sounds, non tender, soft Extremities: non-tender Assessment/Plan Status: stable Assessment/Plan: Assessment/Plan Status: stable Assessment/Plan: Assessment - resp failure - s/p PEG - anemia - OBS/Dementia - sepsis - diarrhea, C Diff (-) - Azotemia, resolved - CHF - malnutrition , low albumin - leukocytosis - hypernatremia Recommendations -Vent care / support - cards and pulm follow up - supportive care - abx - PPI - TF Hima Escalante MD Oct 09, 2020 12:31
[2020-10-09 12:40] LABS: ANION GAP 0 mmol/L (5-15); BLOOD UREA NITROGEN 22 mg/dL (7-18); CALCIUM 7.5 MG/DL (8.5-10.1); CARBON DIOXIDE 36 MMOL/L (21-32); CHLORIDE 106 MMOL/L (98-107); CREATININE 0.9 MG/DL (0.55-1.30); SODIUM 142 MMOL/L (136-145)
--- NOTE | 2020-10-09 13:09 | NUR ---
RD ASSESSMENT & RECOMMENDATIONS SEE CARE ACTIVITY FOR COMPLETE ASSESSMENT DAILY ESTIMATED NEEDS: Needs based on Wound, underweight, critical care/ 55kg 25-33 kcals/kg 2615-7151 total kcals 1.25-2 g protein/kg 69-110 g total protein 25-30 mL/kg 6917-3729 total fluid mLs NUTRITION DIAGNOSIS: * Increased kcal/prot needs R/T wound healing and underweight status as evidenced by pt admitted w/ wounds including DTI 2 coccyx and stage 1 @ lt ischium, pt @ 73% IBW w/ low BMI per guidelines. * Swallowing difficulty R/T respiratory status as evidenced by s/p code blue (09/22), orally intubated, s/p trach placement (09/27), s/p PEG placement (10/01), NPO. CURRENT TF: Jevity 1.2 @60 ml/hr ENTERAL NUTRITION RECOMMENDATIONS-->>> Jevity 1.2 goal of 65ml/hr x 24 hrs to provide 1560ml, 1872kcal, 87g prot, 1259ml free water * Increase goal rate as tolerated by 5ml/hr to better meet est needs * HOB over 30 degrees/ water flush per MD ADDITIONAL RECOMMENDATIONS: * Calibrated daily bedscale wt Per SNF: HT=70" * Wound healing: TF rec @ goal will provide 100% RDI Continue Vit C and ZnSO4, add Davidson BID via TF * Monitor lytes, replete as needed * Monitor hydration status: Na and BUN now wnl * Monitor BGs for hypoglycemia: Rec added D5 while NPO
[2020-10-09] MEDS ORDERED: NS 275ml ONE ×2 (14:22→16:34)
[2020-10-09] MEDS: LORazepam 1mg tab GT PRN (15:12)
[2020-10-09 16:00] VITALS: BP 103/65
--- NOTE | 2020-10-09 19:20 | NUR ---
NURSE NOTES: Received patient from Cheri ULLOA. patient is asleep in bed without any acute distress. sinus rhythm on the monitor. gtube and tube feeding running at prescribed rate. trach to vent at prescribed settings, tolerating well. andrade in place and draining well to gravity. bed to lowest position and locked, call light within easy reach. will continue plan of care.
--- NOTE | 2020-10-09 19:39 | NUR ---
NURSE HAND-OFF REPORT: Pt. remain stable Important Events on Shift: collected sputum Patient Status: stable Diet: Jevity 1.2 at 60cc/hr Pending Orders: urine collection Pending Results/Labs:sputum cx Pending MD notification:n Latest Vital Signs: Temperature 98.8 , Pulse 80 , B/P 103 /65 , Respiratory Rate 20 , O2 SAT 100 , Mechanical Ventilator, O2 Flow Rate 45.0 . Vital Sign Comment: wnl EKG Rhythm: Possible atrial rhythm Rhythm change?: N MD Notified?: N -Dr. Gabriel linares MD Response: No New Orders Received Latest Schultz Fall Score: 70 Fall Risk: High Risk Safety Measures: Call light Within Reach, Bed Alarm Zone 2, Side Rails Side Rails x3, Bed position Low and Locked. Fall Precautions: Yellow Socks Door Sign Patient Fall Education Report given to Ivan ULLOA.
--- NOTE | 2020-10-09 19:46 | Pulmonology Progress Note ---
Subjective ROS Limited/Unobtainable: No Constitutional: Reports: fever, other - Mh=082.8 Gastrointestinal/Abdominal: Reports: diarrhea Allergies: Coded Allergies: VANCOMYCIN (Verified Allergy, Severe, hive, 09/28/20) All Systems: reviewed and negative except above Objective Last 24 Hour Vital Signs Date Time Temp Pulse Resp B/P (MAP) Pulse Ox O2 Delivery O2 Flow Rate FiO2 10/09/20 19:00 80 20 40 10/09/20 16:07 78 10/09/20 16:00 Mechanical Ventilator 10/09/20 16:00 98.8 90 20 103/65 (78) 100 90 10/09/20 16:00 45 10/09/20 15:45 74 25 40 10/09/20 15:42 74 25 118/70 99 10/09/20 15:12 75 21 118/70 99 10/09/20 12:00 Mechanical Ventilator 10/09/20 12:00 98.1 62 20 109/79 (89) 100 62 10/09/20 12:00 45 10/09/20 11:48 75 10/09/20 11:00 74 23 40 10/09/20 08:00 98.4 70 22 108/69 (82) 99 70 10/09/20 08:00 45 10/09/20 08:00 Mechanical Ventilator 10/09/20 07:50 77 10/09/20 07:15 88 28 40 10/09/20 04:00 45 10/09/20 04:00 Mechanical Ventilator 10/09/20 04:00 76 10/09/20 04:00 98.1 72 22 110/71 (84) 99 66 10/09/20 03:04 75 24 40 10/09/20 00:00 86 10/09/20 00:00 Mechanical Ventilator 10/09/20 00:00 98.2 66 30 105/72 (83) 99 66 10/08/20 22:50 102 27 40 10/08/20 20:51 101.8 10/08/20 20:00 100.8 118 28 131/84 (100) 99 118 10/08/20 20:00 45 10/08/20 20:00 92 Intake and Output 10/08/20 10/09/20 19:00 07:00 Intake Total 810 ml 770 ml Output Total 2600 ml 370 ml Balance -1790 ml 400 ml Free Water 90 ml 50 ml Tube Feeding 720 ml 720 ml Output Urine Total 2600 ml 370 ml # Bowel Movements 3 Laboratory Tests 10/09/20 12:00: White Blood Count 6.8, Red Blood Count 3.18L, Hemoglobin 9.1L, Hematocrit 27.8L, Mean Corpuscular Volume 87, Mean Corpuscular Hemoglobin 28.5, Mean Corpuscular Hemoglobin Concent 32.6, Red Cell Distribution Width 15.0H, Platelet Count 177, Mean Platelet Volume 6.3L, Neutrophils (%) (Auto) 61.1, Lymphocytes (%) (Auto) 28.3, Monocytes (%) (Auto) 8.2, Eosinophils (%) (Auto) 1.2, Basophils (%) (Auto) 1.2, Sodium Level 142, Potassium Level 4.0, Chloride Level 106, Carbon Dioxide Level 36H, Anion Gap 0L, Blood Urea Nitrogen 22H, Creatinine 0.9, Estimat Glomerular Filtration Rate > 60, Glucose Level 104, Calcium Level 7.5L Current Medications Medications (Trade) Dose Ordered Sig/Aleksander Route PRN Reason Start Time Stop Time Status Last Admin Dose Admin Acetaminophen (Tylenol) 650 mg Q4H PRN NG Temp >100.5 09/10/20 23:15 10/10/20 23:14 10/08/20 20:21 Acetaminophen (Tylenol) 650 mg Q6H PRN NG pain 1-6 10/08/20 15:30 11/07/20 15:14 Al Hydroxide/Mg Hydroxide (Mylanta) 30 ml Q4H PRN NG Constipation 09/11/20 00:15 10/10/20 23:14 Ascorbic Acid (Vitamin C) 250 mg DAILY NG 09/26/20 09:00 10/18/20 08:59 10/09/20 08:46 Diphenhydramine HCl (Benadryl) 25 mg Q6H PRN IVP Itching 09/27/20 12:15 10/27/20 12:14 10/09/20 10:48 Diphenoxylate HCl/ Atropine (Lomotil) 2.5 mg Q4H PRN ORAL Diarrhea 09/20/20 08:15 10/20/20 08:14 Famotidine (Pepcid) 20 mg BID GT 10/04/20 09:00 01/02/21 08:59 10/09/20 18:02 Finasteride (Proscar) 5 mg DAILY ORAL 09/13/20 09:00 12/12/20 08:59 10/09/20 08:46 Furosemide (Lasix) 40 mg DAILY IV 10/03/20 09:00 11/02/20 08:59 10/09/20 08:46 Hydromorphone HCl (Dilaudid) 0.5 mg Q4H PRN IVP SEVERE PAIN 10/08/20 15:18 10/15/20 15:17 Lorazepam (Ativan) 1 mg Q4H PRN GT For Anxiety 10/07/20 22:00 10/14/20 21:59 10/09/20 15:12 Multivitamins (Multivitamins W/ Minerals 15ml Liquid) 15 ml DAILY NG 09/26/20 09:00 10/26/20 08:59 10/09/20 08:46 Ondansetron HCl (Zofran) 4 mg Q6H PRN IVP Nausea & Vomiting 09/10/20 23:15 10/10/20 23:14 Piperacillin Sod/ Tazobactam Sod 3.375 gm/Sodium Chloride 110 ml @ 27.5 mls/hr EVERY 8 HOURS IVPB 10/09/20 11:00 10/14/20 10:59 10/09/20 12:17 Spironolactone (Aldactone) 25 mg DAILY GT 10/05/20 09:00 11/04/20 08:59 10/09/20 08:46 Tamsulosin HCl (Flomax) 0.4 mg BEDTIME ORAL 09/12/20 21:00 10/12/20 20:59 10/08/20 20:21 Valproic Acid (Depakene) 1,000 mg BEDTIME GT 10/06/20 21:00 10/31/20 20:59 10/08/20 20:21 Zinc Sulfate (Zinc Sulfate) 220 mg DAILY GT 10/06/20 09:00 01/04/21 08:59 10/09/20 08:46 Assessment/Plan Assessment/Plan Pulmonary Progress Note Subjective Allergies: Coded Allergies: No Known Allergies (Unverified , 09/10/20) Subjective remains confused stable oxygen requirements Persistant infiltrates AB per ID TF to SNF once stable CXR improving infiltrates Objective Vital Signs noted Height (Feet): 5 Height (Inches): 7.00 Weight (Pounds): 121 Objective WDWN NAD reduced breath sounds bilaterally without rhonchi or wheeze [id number] without MRG NABS nontender no HSM no CCE nonfocal remains confused Assessment/Plan Assessment/Plan: IMPRESSION: 1. Acute renal failure. 2. Hypernatremia improving 3. Leukocytosis. 4. Pneumonia/ sepsis. 5. Hypotension. 6. Dementia. 7. Acute on chronic encephalopathy. 8. bcx staph Epi 9. MRSA colonized PLAN IMPRESSION: 1. Acute renal failure. 2. Hypernatremia. 3. Leukocytosis. 4. Possible sepsis. 5. Hypotension. 6. Dementia. 7. Acute on chronic encephalopathy. 8. bcx staph Epi 9. MRSA colonized 10. acute hypoxemic respiratory failure 11. atelectasis/collapse 12. leukocytosis 13. trach PLAN follow up HH post transfusion taper fio2 ID noted; monitor follow up on antibiotics monitor oxygen needs vent support full for now off load as able monitor lytes position change monitor imaging d/w consultants and nursing remains critical trach care dc plan to subacute impression, plan, and exam edited and reviewed in detail care discussed with Madi Richard MD Oct 09, 2020 19:46
[2020-10-09 20:00] VITALS: BP 110/74
[2020-10-09] MEDS: Tamsulosin 0.4mg cap ORAL SCH (21:04)
[2020-10-09] MEDS: Valproic Acid 250mg/5ml Liquid GT SCH (21:05)
[2020-10-09 21:53] LABS: APPEARANCE,URINE CLOUDY; BILIRUBIN, URINE NEGATIVE (NEGATIVE); COLOR,URINE PALE YELLOW; GLUCOSE, URINE (UA) NEGATIVE (NEGATIVE); KETONES,URINE NEGATIVE (NEGATIVE); LEUKOCYTE ESTERASE ,URINE 2+ (NEGATIVE); NITRITE,URINE NEGATIVE (NEGATIVE); PH,URINE 9 (4.5-8.0); PROTEIN,URINE 3+ (NEGATIVE); UROBILINOGEN,URINE NORMAL MG/DL (0.0-1.0)
--- NOTE | 2020-10-09 22:06 | NUR ---
NURSE NOTES: oral care performed
[2020-10-10] VITALS: BP 123/85
--- NOTE | 2020-10-10 01:51 | Cardiology Progress Note ---
Subjective DATE OF SERVICE: Oct 09, 2020 Remains on vent via trach, requiring 40-45% oxygen delivery. Remains congested; less edematous. BP remains mostly controlled. Monitor: sinus/ sinus tachycardia. 912/21) 7.48/44/75 Objective Last 24 Hour Vital Signs Date Time Temp Pulse Resp B/P (MAP) Pulse Ox O2 Delivery O2 Flow Rate FiO2 10/10/20 00:00 99.6 88 27 123/85 (98) 98 88 10/10/20 00:00 45 10/10/20 00:00 Mechanical Ventilator 10/09/20 23:28 89 24 40 10/09/20 20:00 Mechanical Ventilator 10/09/20 20:00 45 10/09/20 20:00 98.4 83 32 110/74 (86) 98 83 10/09/20 19:50 79 10/09/20 19:00 80 20 40 10/09/20 16:07 78 10/09/20 16:00 Mechanical Ventilator 10/09/20 16:00 98.8 90 20 103/65 (78) 100 90 10/09/20 16:00 45 10/09/20 15:45 74 25 40 10/09/20 15:42 74 25 118/70 99 10/09/20 15:12 75 21 118/70 99 10/09/20 12:00 Mechanical Ventilator 10/09/20 12:00 98.1 62 20 109/79 (89) 100 62 10/09/20 12:00 45 10/09/20 11:48 75 10/09/20 11:00 74 23 40 10/09/20 08:00 98.4 70 22 108/69 (82) 99 70 10/09/20 08:00 45 10/09/20 08:00 Mechanical Ventilator 10/09/20 07:50 77 10/09/20 07:15 88 28 40 10/09/20 04:00 45 10/09/20 04:00 Mechanical Ventilator 10/09/20 04:00 76 10/09/20 04:00 98.1 72 22 110/71 (84) 99 66 10/09/20 03:04 75 24 40 ROS: no change from my evaluation of 09/10/20. HEENT: Mechanically Ventilated, Thin Trach secretions RHYTHM: NSR, ST LUNGS: bilat. rhonchi and rales, trach site clean CARDIAC: normal rate, regular rhythm, normal S1 and S2 ABDOMEN: normal bowel sounds, soft, other - sacral decub EXTREMITIES: +1 edema Laboratory Tests Test 10/09/20 12:00 10/09/20 21:17 White Blood Count 6.8 K/UL (4.8-10.8) Red Blood Count 3.18 M/UL (4.70-6.10) L Hemoglobin 9.1 G/DL (14.2-18.0) L Hematocrit 27.8 % (42.0-52.0) L Mean Corpuscular Volume 87 FL (80-99) Mean Corpuscular Hemoglobin 28.5 PG (27.0-31.0) Mean Corpuscular Hemoglobin Concent 32.6 G/DL (32.0-36.0) Red Cell Distribution Width 15.0 % (11.6-14.8) H Platelet Count 177 K/UL (150-450) Mean Platelet Volume 6.3 FL (6.5-10.1) L Neutrophils (%) (Auto) 61.1 % (45.0-75.0) Lymphocytes (%) (Auto) 28.3 % (20.0-45.0) Monocytes (%) (Auto) 8.2 % (1.0-10.0) Eosinophils (%) (Auto) 1.2 % (0.0-3.0) Basophils (%) (Auto) 1.2 % (0.0-2.0) Sodium Level 142 MMOL/L (136-145) Potassium Level 4.0 MMOL/L (3.5-5.1) Chloride Level 106 MMOL/L (98-107) Carbon Dioxide Level 36 MMOL/L (21-32) H Anion Gap 0 mmol/L (5-15) L Blood Urea Nitrogen 22 mg/dL (7-18) H Creatinine 0.9 MG/DL (0.55-1.30) Estimat Glomerular Filtration Rate > 60 mL/min (>60) Glucose Level 104 MG/DL (74-106) Calcium Level 7.5 MG/DL (8.5-10.1) L Urine Color Pale yellow Urine Appearance Cloudy Urine pH 9 (4.5-8.0) Urine Specific [place] 1.015 (1.005-1.035) Urine Protein 3+ (NEGATIVE) H Urine Glucose (UA) Negative (NEGATIVE) Urine Ketones Negative (NEGATIVE) Urine Blood 5+ (NEGATIVE) H Urine Nitrite Negative (NEGATIVE) Urine Bilirubin Negative (NEGATIVE) Urine Urobilinogen Normal MG/DL (0.0-1.0) Urine Leukocyte Esterase 2+ (NEGATIVE) H Urine RBC Tntc /HPF (0 - 0) H Urine WBC 10-15 /HPF (0 - 0) H Urine Squamous Epithelial Cells Occasional /LPF Urine Bacteria Moderate /HPF (NONE) H Urine Yeast Few /HPF (NONE) H Assessment/Plan Assessment/Plan Respiratory failure with hypoxia - s/p tracheostomy Sepsis Aspiration PNA Recurring shock - recovered Diarrhea Dehydration/hypernatremia corrected Acute myocardial ischemia Acute renal failure HC assoc PNA UTI Transaminitis, acute CVA/dementia Paroxysmal sinus bradycardia and tachycardia Acute diastolic CHF Severe protein/calorie malnutrition with dysphagia; now s/p PEG Hypokalemia Remains CRITICAL & GUARDED Vent support with trach care; wean down O2. Antimicrobials per ID. ?reculture for fever Replace lytes as needed. DVT prophyl Cardiac monitoring Diuresis today, based on clinical parameters; aldactone to spare potassium loss. Will replace K+, and trend BNP. Madi Rios MD Oct 10, 2020 01:51
[2020-10-10] MEDS: LORazepam 1mg tab GT PRN ×3 (02:46→13:41)
[2020-10-10 04:00] VITALS: BP 113/67
--- NOTE | 2020-10-10 04:00 | NUR ---
NURSE NOTES: Bed bath performed. vital signs stable
[2020-10-10 05:04] LABS: BASOPHILS % (AUTO) 0.8 % (0.0-2.0); EOSINOPHILS % (AUTO) 0.8 % (0.0-3.0); HEMATOCRIT 25.9 % (42.0-52.0); HEMOGLOBIN 8.8 G/DL (14.2-18.0); LYMPHOCYTES % (AUTO) 37.9 % (20.0-45.0); MEAN CORPUSCULAR VOLUME 85 FL (80-99); MONOCYTES % (AUTO) 7.5 % (1.0-10.0); PLATELET COUNT 171 K/UL (150-450); RED BLOOD COUNT 3.03 M/UL (4.70-6.10); WHITE BLOOD COUNT 8.6 K/UL (4.8-10.8)
[2020-10-10] MEDS: Piperacillin/Tazobactam 3.375 GM in NS 110 ML IVPB SCH ×3 (05:06→23:06)
[2020-10-10 05:37] LABS: ALANINE AMINOTRANSFERASE 21 U/L (12-78); ALBUMIN 1.3 G/DL (3.4-5.0); ALBUMIN/GLOBULIN RATIO 0.3 (1.0-2.7); ALKALINE PHOSPHATASE 68 U/L (46-116); ANION GAP 2 mmol/L (5-15); ASPARTATE AMINO TRANSFERASE 25 U/L (15-37); BILIRUBIN,TOTAL 0.3 MG/DL (0.2-1.0); BLOOD UREA NITROGEN 24 mg/dL (7-18); CALCIUM 7.4 MG/DL (8.5-10.1); CARBON DIOXIDE 33 MMOL/L (21-32); CHLORIDE 103 MMOL/L (98-107); CREATININE 1.1 MG/DL (0.55-1.30); POTASSIUM 4.3 MMOL/L (3.5-5.1); SODIUM 138 MMOL/L (136-145)
--- NOTE | 2020-10-10 07:00 | General Progress Note ---
Subjective ROS Limited/Unobtainable: No Allergies: Coded Allergies: VANCOMYCIN (Verified Allergy, Severe, hive, 09/28/20) Objective Last 24 Hour Vital Signs Date Time Temp Pulse Resp B/P (MAP) Pulse Ox O2 Delivery O2 Flow Rate FiO2 10/10/20 04:00 73 10/10/20 04:00 98.4 72 27 113/67 (82) 99 72 10/10/20 04:00 Mechanical Ventilator 10/10/20 04:00 45 10/10/20 03:16 78 30 116/76 100 10/10/20 03:10 78 30 40 10/10/20 02:46 77 36 116/76 100 10/10/20 00:00 99.6 88 27 123/85 (98) 98 88 10/10/20 00:00 45 10/10/20 00:00 93 10/10/20 00:00 Mechanical Ventilator 10/09/20 23:28 89 24 40 10/09/20 20:00 Mechanical Ventilator 10/09/20 20:00 45 10/09/20 20:00 98.4 83 32 110/74 (86) 98 83 10/09/20 19:50 79 10/09/20 19:00 80 20 40 10/09/20 16:07 78 10/09/20 16:00 Mechanical Ventilator 10/09/20 16:00 98.8 90 20 103/65 (78) 100 90 10/09/20 16:00 45 10/09/20 15:45 74 25 40 10/09/20 15:42 74 25 118/70 99 10/09/20 15:12 75 21 118/70 99 10/09/20 12:00 Mechanical Ventilator 10/09/20 12:00 98.1 62 20 109/79 (89) 100 62 10/09/20 12:00 45 10/09/20 11:48 75 10/09/20 11:00 74 23 40 10/09/20 08:00 98.4 70 22 108/69 (82) 99 70 10/09/20 08:00 45 10/09/20 08:00 Mechanical Ventilator 10/09/20 07:50 77 10/09/20 07:15 88 28 40 Intake and Output 10/09/20 10/10/20 19:00 07:00 Intake Total 1020 ml 810 ml Output Total 2250 ml 750 ml Balance -1230 ml 60 ml Free Water 300 ml 40 ml IV Total 110 ml Tube Feeding 720 ml 660 ml Output Urine Total 2250 ml 750 ml Laboratory Tests 10/09/20 12:00: White Blood Count 6.8, Red Blood Count 3.18L, Hemoglobin 9.1L, Hematocrit 27.8L, Mean Corpuscular Volume 87, Mean Corpuscular Hemoglobin 28.5, Mean Corpuscular Hemoglobin Concent 32.6, Red Cell Distribution Width 15.0H, Platelet Count 177, Mean Platelet Volume 6.3L, Neutrophils (%) (Auto) 61.1, Lymphocytes (%) (Auto) 28.3, Monocytes (%) (Auto) 8.2, Eosinophils (%) (Auto) 1.2, Basophils (%) (Auto) 1.2, Sodium Level 142, Potassium Level 4.0, Chloride Level 106, Carbon Dioxide Level 36H, Anion Gap 0L, Blood Urea Nitrogen 22H, Creatinine 0.9, Estimat Glomerular Filtration Rate > 60, Glucose Level 104, Calcium Level 7.5L 10/09/20 21:17: Urine Color Pale yellow, Urine Appearance Cloudy, Urine pH 9, Urine Specific [place] 1.015, Urine Protein 3+H, Urine Glucose (UA) Negative, Urine Ketones Negative, Urine Blood 5+H, Urine Nitrite Negative, Urine Bilirubin Negative, Urine Urobilinogen Normal, Urine Leukocyte Esterase 2+H, Urine RBC TntcH, Urine WBC 10-15H, Urine Squamous Epithelial Cells Occasional, Urine Bacteria ModerateH , Urine Yeast FewH 10/10/20 03:10: White Blood Count 8.6, Red Blood Count 3.03L, Hemoglobin 8.8L, Hematocrit 25.9L, Mean Corpuscular Volume 85, Mean Corpuscular Hemoglobin 28.9, Mean Corpuscular Hemoglobin Concent 33.9, Red Cell Distribution Width 15.0H, Platelet Count 171, Mean Platelet Volume 6.5, Neutrophils (%) (Auto) 53.0, Lymphocytes (%) (Auto) 37.9, Monocytes (%) (Auto) 7.5, Eosinophils (%) (Auto) 0.8, Basophils (%) (Auto) 0.8, Sodium Level 138, Potassium Level 4.3, Chloride Level 103, Carbon Dioxide Level 33H, Anion Gap 2L, Blood Urea Nitrogen 24H, Creatinine 1.1, Estimat Glomerular Filtration Rate > 60, Glucose Level 103, Calcium Level 7.4L, Total Bilirubin 0.3, Aspartate Amino Transf (AST/SGOT) 25, Alanine Aminotransferase (ALT/SGPT) 21, Alkaline Phosphatase 68, Total Protein 6.3L, Albumin 1.3L, Globulin 5.0, Albumin/Globulin Ratio 0.3L Height (Feet): 6 Height (Inches): 1.00 Weight (Pounds): 148 General Appearance: no apparent distress EENT: normal ENT inspection Neck: supple Cardiovascular: normal rate Respiratory/Chest: decreased breath sounds Abdomen: hypoactive bowel sounds Extremities: non-tender Assessment/Plan Status: stable Assessment/Plan: Assessment/Plan Status: stable Assessment/Plan: Assessment - resp failure - s/p PEG - anemia - OBS/Dementia - sepsis - diarrhea, C Diff (-) - Azotemia, resolved - CHF - malnutrition , low albumin - leukocytosis - hypernatremia Recommendations -Vent care / support - cards and pulm follow up - supportive care - abx - PPI - TF Hima Escalante MD Oct 10, 2020 07:00
--- NOTE | 2020-10-10 07:30 | NUR ---
NURSE HAND-OFF REPORT: Important Events on Shift: patient remains stable Patient Status: FULL CODE Diet: jevity 1.2 @60ml/hr Pending Orders: [] Pending Results/Labs:[] Pending MD notification:[] Latest Vital Signs: Temperature 98.4 , Pulse 77 , B/P 113 /67 , Respiratory Rate 28 , O2 SAT 99 , Mechanical Ventilator, O2 Flow Rate 45.0 . Vital Sign Comment: stable EKG Rhythm: Sinus Rhythm Rhythm change?: N MD Notified?: N -Dr. Gabriel linares MD Response: No New Orders Received Latest Schultz Fall Score: 70 Fall Risk: High Risk Safety Measures: Call light Within Reach, Bed Alarm Zone 2, Side Rails Side Rails x3, Bed position Low and Locked. Fall Precautions: Yellow Socks Door Sign Patient Fall Education Report given to ARTEMIO Syed.
--- NOTE | 2020-10-10 07:30 | NUR ---
NURSE NOTES: Received pt from RN Ivan, pt is awake and confused and restless, pt has trach to ventilator AC 12 TV 450 FIO2 40% PEEP 7, Pt has intact iv access RAC 20G and LFA 20G SL. Pt has g tube in place is running well. Pt has Rae cath in place is working well. no complain of pain noted at this moment. all needs attended, bed is locked and is in the lowest position, call light within easy reach. will continue to monitor.
[2020-10-10 08:00] VITALS: BP 114/72
--- NOTE | 2020-10-10 08:09 | Urology Progress Note ---
Assessment/Plan Status: stable Assessment/Plan: 1. Gross hematuria. 2. Pyuria and possible UTI. 3. Proteinuria. 4. BPH. 5. Urinary retention. 6. Probable neurogenic bladder. 7. Possible sepsis. monitor clinically maintain andrade, secured to pt's leg hand irrigated and do PRN restarted on abx flomax and proscar cysto electively voiding trial at some point? or change andrade Subjective Allergies: Coded Allergies: VANCOMYCIN (Verified Allergy, Severe, hive, 09/28/20) Subjective remains on vent, trach 09/27 Objective Last 24 Hour Vital Signs Date Time Temp Pulse Resp B/P (MAP) Pulse Ox O2 Delivery O2 Flow Rate FiO2 10/10/20 07:28 77 28 40 10/10/20 04:00 73 10/10/20 04:00 98.4 72 27 113/67 (82) 99 72 10/10/20 04:00 Mechanical Ventilator 10/10/20 04:00 45 10/10/20 03:16 78 30 116/76 100 10/10/20 03:10 78 30 40 10/10/20 02:46 77 36 116/76 100 10/10/20 00:00 99.6 88 27 123/85 (98) 98 88 10/10/20 00:00 45 10/10/20 00:00 93 10/10/20 00:00 Mechanical Ventilator 10/09/20 23:28 89 24 40 10/09/20 20:00 Mechanical Ventilator 10/09/20 20:00 45 10/09/20 20:00 98.4 83 32 110/74 (86) 98 83 10/09/20 19:50 79 10/09/20 19:00 80 20 40 10/09/20 16:07 78 10/09/20 16:00 Mechanical Ventilator 10/09/20 16:00 98.8 90 20 103/65 (78) 100 90 10/09/20 16:00 45 10/09/20 15:45 74 25 40 10/09/20 15:42 74 25 118/70 99 10/09/20 15:12 75 21 118/70 99 10/09/20 12:00 Mechanical Ventilator 10/09/20 12:00 98.1 62 20 109/79 (89) 100 62 10/09/20 12:00 45 10/09/20 11:48 75 10/09/20 11:00 74 23 40 Intake and Output 10/09/20 10/10/20 19:00 07:00 Intake Total 1020 ml 810 ml Output Total 2250 ml 750 ml Balance -1230 ml 60 ml Free Water 300 ml 40 ml IV Total 110 ml Tube Feeding 720 ml 660 ml Output Urine Total 2250 ml 750 ml Microbiology Date/Time Source Procedure Growth Status 09/24/20 10:50 Nasopharynx SARS-CoV-2 RdRp Gene Assay - Final Complete 09/18/20 18:30 Stool Clostridium difficile Toxin Assay - Final Complete 09/17/20 12:58 Blood Blood Culture - Final NO GROWTH AFTER 5 DAYS Complete 09/10/20 20:05 Urine,Clean Catch Urine Culture - Final NO GROWTH AFTER 48 HOURS Complete 09/10/20 17:15 Rectum VRE Culture - Final Enterococcus Faecalis - Vre Complete Current Medications Medications (Trade) Dose Ordered Sig/Aleksander Route PRN Reason Start Time Stop Time Status Last Admin Dose Admin Acetaminophen (Tylenol) 650 mg Q4H PRN NG Temp >100.5 09/10/20 23:15 10/10/20 23:14 10/08/20 20:21 Acetaminophen (Tylenol) 650 mg Q6H PRN NG pain 1-6 10/08/20 15:30 11/07/20 15:14 Al Hydroxide/Mg Hydroxide (Mylanta) 30 ml Q4H PRN NG Constipation 09/11/20 00:15 10/10/20 23:14 Ascorbic Acid (Vitamin C) 250 mg DAILY NG 09/26/20 09:00 10/18/20 08:59 10/09/20 08:46 Diphenhydramine HCl (Benadryl) 25 mg Q6H PRN IVP Itching 09/27/20 12:15 10/27/20 12:14 10/09/20 23:30 Diphenoxylate HCl/ Atropine (Lomotil) 2.5 mg Q4H PRN ORAL Diarrhea 09/20/20 08:15 10/20/20 08:14 Famotidine (Pepcid) 20 mg BID GT 10/04/20 09:00 01/02/21 08:59 10/09/20 18:02 Finasteride (Proscar) 5 mg DAILY ORAL 09/13/20 09:00 12/12/20 08:59 10/09/20 08:46 Furosemide (Lasix) 40 mg DAILY IV 10/03/20 09:00 11/02/20 08:59 10/09/20 08:46 Hydromorphone HCl (Dilaudid) 0.5 mg Q4H PRN IVP SEVERE PAIN 10/08/20 15:18 10/15/20 15:17 Lorazepam (Ativan) 1 mg Q4H PRN GT For Anxiety 10/07/20 22:00 10/14/20 21:59 10/10/20 02:46 Multivitamins (Multivitamins W/ Minerals 15ml Liquid) 15 ml DAILY NG 09/26/20 09:00 10/26/20 08:59 10/09/20 08:46 Ondansetron HCl (Zofran) 4 mg Q6H PRN IVP Nausea & Vomiting 09/10/20 23:15 10/10/20 23:14 Piperacillin Sod/ Tazobactam Sod 3.375 gm/Sodium Chloride 110 ml @ 27.5 mls/hr EVERY 8 HOURS IVPB 10/09/20 11:00 10/14/20 10:59 10/10/20 05:06 Spironolactone (Aldactone) 25 mg DAILY GT 10/05/20 09:00 11/04/20 08:59 10/09/20 08:46 Tamsulosin HCl (Flomax) 0.4 mg BEDTIME ORAL 09/12/20 21:00 10/12/20 20:59 10/09/20 21:04 Valproic Acid (Depakene) 1,000 mg BEDTIME GT 10/06/20 21:00 10/31/20 20:59 10/09/20 21:05 Zinc Sulfate (Zinc Sulfate) 220 mg DAILY GT 10/06/20 09:00 01/04/21 08:59 10/09/20 08:46 Laboratory Tests 10/09/20 12:00: White Blood Count 6.8, Red Blood Count 3.18L, Hemoglobin 9.1L, Hematocrit 27.8L, Mean Corpuscular Volume 87, Mean Corpuscular Hemoglobin 28.5, Mean Corpuscular Hemoglobin Concent 32.6, Red Cell Distribution Width 15.0H, Platelet Count 177, Mean Platelet Volume 6.3L, Neutrophils (%) (Auto) 61.1, Lymphocytes (%) (Auto) 28.3, Monocytes (%) (Auto) 8.2, Eosinophils (%) (Auto) 1.2, Basophils (%) (Auto) 1.2, Sodium Level 142, Potassium Level 4.0, Chloride Level 106, Carbon Dioxide Level 36H, Anion Gap 0L, Blood Urea Nitrogen 22H, Creatinine 0.9, Estimat Glomerular Filtration Rate > 60, Glucose Level 104, Calcium Level 7.5L 10/09/20 21:17: Urine Color Pale yellow, Urine Appearance Cloudy, Urine pH 9, Urine Specific [place] 1.015, Urine Protein 3+H, Urine Glucose (UA) Negative, Urine Ketones Negative, Urine Blood 5+H, Urine Nitrite Negative, Urine Bilirubin Negative, Urine Urobilinogen Normal, Urine Leukocyte Esterase 2+H, Urine RBC TntcH, Urine WBC 10-15H, Urine Squamous Epithelial Cells Occasional, Urine Bacteria ModerateH , Urine Yeast FewH 10/10/20 03:10: White Blood Count 8.6, Red Blood Count 3.03L, Hemoglobin 8.8L, Hematocrit 25.9L, Mean Corpuscular Volume 85, Mean Corpuscular Hemoglobin 28.9, Mean Corpuscular Hemoglobin Concent 33.9, Red Cell Distribution Width 15.0H, Platelet Count 171, Mean Platelet Volume 6.5, Neutrophils (%) (Auto) 53.0, Lymphocytes (%) (Auto) 37.9, Monocytes (%) (Auto) 7.5, Eosinophils (%) (Auto) 0.8, Basophils (%) (Auto) 0.8, Sodium Level 138, Potassium Level 4.3, Chloride Level 103, Carbon Dioxide Level 33H, Anion Gap 2L, Blood Urea Nitrogen 24H, Creatinine 1.1, Estimat Glomerular Filtration Rate > 60, Glucose Level 103, Calcium Level 7.4L, Total Bilirubin 0.3, Aspartate Amino Transf (AST/SGOT) 25, Alanine Aminotransferase (ALT/SGPT) 21, Alkaline Phosphatase 68, Total Protein 6.3L, Albumin 1.3L, Globulin 5.0, Albumin/Globulin Ratio 0.3L Height (Feet): 6 Height (Inches): 1.00 Weight (Pounds): 148 Objective exam stable urine clearing Levi Brunson MD Oct 10, 2020 08:09
[2020-10-10] MEDS: Multivitamins W/Minerals 15 ML UDC NG SCH (09:09)
[2020-10-10] MEDS: Spironolactone 25mg tab GT SCH (09:09)
[2020-10-10] MEDS: Ascorbic Acid 500mg tab NG SCH (09:09)
[2020-10-10] MEDS: Zinc Sulfate 220mg GT SCH (09:12)
--- NOTE | 2020-10-10 11:42 | NUR ---
CASE MANAGEMENT:REVIEW SI;RESP FAILURE. S/P TRACH. TRACH/VENT DEPENDENT. SEPSIS. 99.6 88 36 123/85 98% TRACH/VENT FIO2 45% H.H 8.8/25.9 BUN 24 CA 7.4 ALB 1.3 IS;ZOSYN IV Q8 ATIVAN GT Q4 PRN DEPAKENE GT ALDACTONE GT QD PEPCID GT BID ASTER STATUS [facility]CP;[facility]
--- NOTE | 2020-10-10 11:51 | Infectious Diseases Prog Note ---
Assessment/Plan Assessment/Plan antibiotics : zosyn A 1. MRSA Pneumonia s/p rx COVID-19 test is negative. 2. Dementia. 3. Leukocytosis improving 4. respiratory failure s/p tracheostomy 5. allergic reaction to vancomycin resolved P 1. continue zosyn 2. will follow up cultures Subjective ROS Limited/Unobtainable: Yes Allergies: Coded Allergies: VANCOMYCIN (Verified Allergy, Severe, hive, 09/28/20) Objective Last 24 Hour Vital Signs Date Time Temp Pulse Resp B/P (MAP) Pulse Ox O2 Delivery O2 Flow Rate FiO2 10/10/20 09:42 67 22 114/72 100 10/10/20 09:12 67 22 114/72 100 10/10/20 08:17 73 10/10/20 08:00 45 10/10/20 08:00 98.1 64 20 114/72 (86) 100 64 10/10/20 08:00 Mechanical Ventilator 10/10/20 07:28 77 28 40 10/10/20 04:00 73 10/10/20 04:00 98.4 72 27 113/67 (82) 99 72 10/10/20 04:00 Mechanical Ventilator 10/10/20 04:00 45 10/10/20 03:16 78 30 116/76 100 10/10/20 03:10 78 30 40 10/10/20 02:46 77 36 116/76 100 10/10/20 00:00 99.6 88 27 123/85 (98) 98 88 10/10/20 00:00 45 10/10/20 00:00 93 10/10/20 00:00 Mechanical Ventilator 10/09/20 23:28 89 24 40 10/09/20 20:00 Mechanical Ventilator 10/09/20 20:00 45 10/09/20 20:00 98.4 83 32 110/74 (86) 98 83 10/09/20 19:50 79 10/09/20 19:00 80 20 40 10/09/20 16:07 78 10/09/20 16:00 Mechanical Ventilator 10/09/20 16:00 98.8 90 20 103/65 (78) 100 90 10/09/20 16:00 45 10/09/20 15:45 74 25 40 10/09/20 15:42 74 25 118/70 99 10/09/20 15:12 75 21 118/70 99 10/09/20 12:00 Mechanical Ventilator 10/09/20 12:00 98.1 62 20 109/79 (89) 100 62 10/09/20 12:00 45 Height (Feet): 6 Height (Inches): 1.00 Weight (Pounds): 148 HEENT: status post trach Respiratory/Chest: lungs clear Cardiovascular: normal rate, regular rhythm, no gallop/murmur Abdomen: soft, non tender, other - GT Extremities: no edema Laboratory Tests Test 10/09/20 12:00 10/09/20 21:17 10/10/20 03:10 White Blood Count 6.8 K/UL (4.8-10.8) 8.6 K/UL (4.8-10.8) Red Blood Count 3.18 M/UL (4.70-6.10) L 3.03 M/UL (4.70-6.10) L Hemoglobin 9.1 G/DL (14.2-18.0) L 8.8 G/DL (14.2-18.0) L Hematocrit 27.8 % (42.0-52.0) L 25.9 % (42.0-52.0) L Mean Corpuscular Volume 87 FL (80-99) 85 FL (80-99) Mean Corpuscular Hemoglobin 28.5 PG (27.0-31.0) 28.9 PG (27.0-31.0) Mean Corpuscular Hemoglobin Concent 32.6 G/DL (32.0-36.0) 33.9 G/DL (32.0-36.0) Red Cell Distribution Width 15.0 % (11.6-14.8) H 15.0 % (11.6-14.8) H Platelet Count 177 K/UL (150-450) 171 K/UL (150-450) Mean Platelet Volume 6.3 FL (6.5-10.1) L 6.5 FL (6.5-10.1) Neutrophils (%) (Auto) 61.1 % (45.0-75.0) 53.0 % (45.0-75.0) Lymphocytes (%) (Auto) 28.3 % (20.0-45.0) 37.9 % (20.0-45.0) Monocytes (%) (Auto) 8.2 % (1.0-10.0) 7.5 % (1.0-10.0) Eosinophils (%) (Auto) 1.2 % (0.0-3.0) 0.8 % (0.0-3.0) Basophils (%) (Auto) 1.2 % (0.0-2.0) 0.8 % (0.0-2.0) Sodium Level 142 MMOL/L (136-145) 138 MMOL/L (136-145) Potassium Level 4.0 MMOL/L (3.5-5.1) 4.3 MMOL/L (3.5-5.1) Chloride Level 106 MMOL/L (98-107) 103 MMOL/L (98-107) Carbon Dioxide Level 36 MMOL/L (21-32) H 33 MMOL/L (21-32) H Anion Gap 0 mmol/L (5-15) L 2 mmol/L (5-15) L Blood Urea Nitrogen 22 mg/dL (7-18) H 24 mg/dL (7-18) H Creatinine 0.9 MG/DL (0.55-1.30) 1.1 MG/DL (0.55-1.30) Estimat Glomerular Filtration Rate > 60 mL/min (>60) > 60 mL/min (>60) Glucose Level 104 MG/DL (74-106) 103 MG/DL (74-106) Calcium Level 7.5 MG/DL (8.5-10.1) L 7.4 MG/DL (8.5-10.1) L Urine Color Pale yellow Urine Appearance Cloudy Urine pH 9 (4.5-8.0) Urine Specific [place] 1.015 (1.005-1.035) Urine Protein 3+ (NEGATIVE) H Urine Glucose (UA) Negative (NEGATIVE) Urine Ketones Negative (NEGATIVE) Urine Blood 5+ (NEGATIVE) H Urine Nitrite Negative (NEGATIVE) Urine Bilirubin Negative (NEGATIVE) Urine Urobilinogen Normal MG/DL (0.0-1.0) Urine Leukocyte Esterase 2+ (NEGATIVE) H Urine RBC Tntc /HPF (0 - 0) H Urine WBC 10-15 /HPF (0 - 0) H Urine Squamous Epithelial Cells Occasional /LPF Urine Bacteria Moderate /HPF (NONE) H Urine Yeast Few /HPF (NONE) H Total Bilirubin 0.3 MG/DL (0.2-1.0) Aspartate Amino Transf (AST/SGOT) 25 U/L (15-37) Alanine Aminotransferase (ALT/SGPT) 21 U/L (12-78) Alkaline Phosphatase 68 U/L (46-116) Total Protein 6.3 G/DL (6.4-8.2) L Albumin 1.3 G/DL (3.4-5.0) L Globulin 5.0 g/dL Albumin/Globulin Ratio 0.3 (1.0-2.7) L Current Medications Medications (Trade) Dose Ordered Sig/Aleksander Route PRN Reason Start Time Stop Time Status Last Admin Dose Admin Acetaminophen (Tylenol) 650 mg Q4H PRN NG Temp >100.5 09/10/20 23:15 10/10/20 23:14 10/08/20 20:21 Acetaminophen (Tylenol) 650 mg Q6H PRN NG pain 1-6 10/08/20 15:30 11/07/20 15:14 Al Hydroxide/Mg Hydroxide (Mylanta) 30 ml Q4H PRN NG Constipation 09/11/20 00:15 10/10/20 23:14 Ascorbic Acid (Vitamin C) 250 mg DAILY NG 09/26/20 09:00 10/18/20 08:59 10/10/20 09:09 Diphenhydramine HCl (Benadryl) 25 mg Q6H PRN IVP Itching 09/27/20 12:15 10/27/20 12:14 10/09/20 23:30 Diphenoxylate HCl/ Atropine (Lomotil) 2.5 mg Q4H PRN ORAL Diarrhea 09/20/20 08:15 10/20/20 08:14 Famotidine (Pepcid) 20 mg BID GT 10/04/20 09:00 01/02/21 08:59 10/10/20 09:09 Finasteride (Proscar) 5 mg DAILY ORAL 09/13/20 09:00 12/12/20 08:59 10/10/20 09:12 Furosemide (Lasix) 40 mg DAILY IV 10/03/20 09:00 11/02/20 08:59 10/10/20 09:12 Hydromorphone HCl (Dilaudid) 0.5 mg Q4H PRN IVP SEVERE PAIN 10/08/20 15:18 10/15/20 15:17 Lorazepam (Ativan) 1 mg Q4H PRN GT For Anxiety 10/07/20 22:00 10/14/20 21:59 10/10/20 09:12 Multivitamins (Multivitamins W/ Minerals 15ml Liquid) 15 ml DAILY NG 09/26/20 09:00 10/26/20 08:59 10/10/20 09:09 Ondansetron HCl (Zofran) 4 mg Q6H PRN IVP Nausea & Vomiting 09/10/20 23:15 10/10/20 23:14 Piperacillin Sod/ Tazobactam Sod 3.375 gm/Sodium Chloride 110 ml @ 27.5 mls/hr EVERY 8 HOURS IVPB 10/09/20 11:00 10/14/20 10:59 10/10/20 05:06 Spironolactone (Aldactone) 25 mg DAILY GT 10/05/20 09:00 11/04/20 08:59 10/10/20 09:09 Tamsulosin HCl (Flomax) 0.4 mg BEDTIME ORAL 09/12/20 21:00 10/12/20 20:59 10/09/20 21:04 Valproic Acid (Depakene) 1,000 mg BEDTIME GT 10/06/20 21:00 10/31/20 20:59 10/09/20 21:05 Zinc Sulfate (Zinc Sulfate) 220 mg DAILY GT 10/06/20 09:00 01/04/21 08:59 10/10/20 09:12 Martha Collins MD Oct 10, 2020 11:51
[2020-10-10 11:53] VITALS: BP 116/74
[2020-10-10 16:00] VITALS: BP 102/65
--- NOTE | 2020-10-10 16:57 | General Progress Note ---
Subjective ROS Limited/Unobtainable: No Constitutional: Reports: malaise, weakness HEENT: Reports: no symptoms Cardiovascular: Reports: no symptoms Respiratory: Reports: cough, shortness of breath, sputum Gastrointestinal/Abdominal: Reports: difficulty swallowing Genitourinary: Reports: no symptoms Neurologic/Psychiatric: Reports: pre-existing deficit Endocrine: Reports: no symptoms Hematologic/Lymphatic: Reports: anemia Allergies: Coded Allergies: VANCOMYCIN (Verified Allergy, Severe, hive, 09/28/20) All Systems: reviewed and negative except above Subjective no change. awake but confused. does not follow commands. tolerating feeds. fio2 40-45%. waiting for bed at subacute Objective Last 24 Hour Vital Signs Date Time Temp Pulse Resp B/P (MAP) Pulse Ox O2 Delivery O2 Flow Rate FiO2 10/10/20 16:00 45 10/10/20 16:00 98.8 82 28 102/65 (77) 98 10/10/20 16:00 Mechanical Ventilator 10/10/20 15:16 80 27 40 10/10/20 14:11 90 16 116/74 100 10/10/20 13:41 90 16 116/74 100 10/10/20 12:18 90 16 40 10/10/20 12:00 45 10/10/20 12:00 Mechanical Ventilator 10/10/20 11:53 97.2 75 26 116/74 (88) 100 10/10/20 11:43 87 10/10/20 09:42 67 22 114/72 100 10/10/20 09:12 67 22 114/72 100 10/10/20 08:17 73 10/10/20 08:00 45 10/10/20 08:00 98.1 64 20 114/72 (86) 100 64 10/10/20 08:00 Mechanical Ventilator 10/10/20 07:28 77 28 40 10/10/20 04:00 73 10/10/20 04:00 98.4 72 27 113/67 (82) 99 72 10/10/20 04:00 Mechanical Ventilator 10/10/20 04:00 45 10/10/20 03:16 78 30 116/76 100 10/10/20 03:10 78 30 40 10/10/20 02:46 77 36 116/76 100 10/10/20 00:00 99.6 88 27 123/85 (98) 98 88 10/10/20 00:00 45 10/10/20 00:00 93 10/10/20 00:00 Mechanical Ventilator 10/09/20 23:28 89 24 40 10/09/20 20:00 Mechanical Ventilator 10/09/20 20:00 45 10/09/20 20:00 98.4 83 32 110/74 (86) 98 83 10/09/20 19:50 79 10/09/20 19:00 80 20 40 Intake and Output0 10/09/20 10/10/20 19:00 07:00 Intake Total 1020 ml 870 ml Output Total 2250 ml 750 ml Balance -1230 ml 120 ml Free Water 300 ml 40 ml IV Total 110 ml Tube Feeding 720 ml 720 ml Output Urine Total 2250 ml 750 ml Laboratory Tests 10/09/20 21:17: Urine Color Pale yellow, Urine Appearance Cloudy, Urine pH 9, Urine Specific [place] 1.015, Urine Protein 3+H, Urine Glucose (UA) Negative, Urine Ketones Negative, Urine Blood 5+H, Urine Nitrite Negative, Urine Bilirubin Negative, Urine Urobilinogen Normal, Urine Leukocyte Esterase 2+H, Urine RBC TntcH, Urine WBC 10-15H, Urine Squamous Epithelial Cells Occasional, Urine Bacteria ModerateH , Urine Yeast FewH 10/10/20 03:10: White Blood Count 8.6, Red Blood Count 3.03L, Hemoglobin 8.8L, Hematocrit 25.9L, Mean Corpuscular Volume 85, Mean Corpuscular Hemoglobin 28.9, Mean Corpuscular Hemoglobin Concent 33.9, Red Cell Distribution Width 15.0H, Platelet Count 171, Mean Platelet Volume 6.5, Neutrophils (%) (Auto) 53.0, Lymphocytes (%) (Auto) 37.9, Monocytes (%) (Auto) 7.5, Eosinophils (%) (Auto) 0.8, Basophils (%) (Auto) 0.8, Sodium Level 138, Potassium Level 4.3, Chloride Level 103, Carbon Dioxide Level 33H, Anion Gap 2L, Blood Urea Nitrogen 24H, Creatinine 1.1, Estimat Glomerular Filtration Rate > 60, Glucose Level 103, Calcium Level 7.4L, Total Bilirubin 0.3, Aspartate Amino Transf (AST/SGOT) 25, Alanine Aminotransferase (ALT/SGPT) 21, Alkaline Phosphatase 68, Total Protein 6.3L, Albumin 1.3L, Globulin 5.0, Albumin/Globulin Ratio 0.3L Height (Feet): 6 Height (Inches): 1.00 Weight (Pounds): 148 Objective General Appearance: WD/WN, confused. EENT: normal ENT inspection. +trach, dressing clean Neck: normal alignment, supple Cardiovascular: normal rate, regular rhythm Respiratory/Chest: rhonchi - bilaterally. diminished BS Abdomen: normal bowel sounds, non tender, soft, no organomegaly Edema: no edema noted Leg (L), no edema noted Leg (R) Neurologic: front end web developer II-XII grossly normal, responsive, disoriented Lymphatic: normal anterior cervical (L), normal anterior cervical (R), normal posterior cervical (L), normal posterior cervical (R) Assessment/Plan Problem List: (1) PNA (pneumonia) ICD Codes: J18.9 - Pneumonia, unspecified organism SNOMED: 953327891 (2) UTI (urinary tract infection) ICD Codes: N39.0 - Urinary tract infection, site not specified SNOMED: 55295799 (3) Fever ICD Codes: R50.9 - Fever, unspecified SNOMED: 188069337 Qualifiers: Qualified Codes: R50.9 - Fever, unspecified (4) Decubitus skin ulcer ICD Codes: L89.90 - Pressure ulcer of unspecified site, unspecified stage SNOMED: 496754766 (5) Malnutrition ICD Codes: E46 - Unspecified protein-calorie malnutrition SNOMED: 70756778 (6) Severe sepsis ICD Codes: A41.9 - Sepsis, unspecified organism; R65.20 - Severe sepsis without septic shock SNOMED: 24050859 (7) Hematuria ICD Codes: R31.9 - Hematuria, unspecified SNOMED: 80856406 Status: stable Assessment/Plan: iv zosyn per ID resp rx and suctioning trach care titrate fio2 monitor abg skin care tube feeds- tolerating monitor labs transfuse prn monitor for bleeding poor prognosis dc planning Jason Layne MD Oct 10, 2020 16:57
--- NOTE | 2020-10-10 17:45 | Surgery Progress Note ---
Surgery Progress Note Subjective Procedure Performed tracheostomy Additional Comments improving pending placement no n/ labs oky Objective Last 24 Hour Vital Signs Date Time Temp Pulse Resp B/P (MAP) Pulse Ox O2 Delivery O2 Flow Rate FiO2 10/10/20 16:00 45 10/10/20 16:00 98.8 82 28 102/65 (77) 98 10/10/20 16:00 Mechanical Ventilator 10/10/20 15:19 81 10/10/20 15:16 80 27 40 10/10/20 14:11 90 16 116/74 100 10/10/20 13:41 90 16 116/74 100 10/10/20 12:18 90 16 40 10/10/20 12:00 45 10/10/20 12:00 Mechanical Ventilator 10/10/20 11:53 97.2 75 26 116/74 (88) 100 10/10/20 11:43 87 10/10/20 09:42 67 22 114/72 100 10/10/20 09:12 67 22 114/72 100 10/10/20 08:17 73 10/10/20 08:00 45 10/10/20 08:00 98.1 64 20 114/72 (86) 100 64 10/10/20 08:00 Mechanical Ventilator 10/10/20 07:28 77 28 40 10/10/20 04:00 73 10/10/20 04:00 98.4 72 27 113/67 (82) 99 72 10/10/20 04:00 Mechanical Ventilator 10/10/20 04:00 45 10/10/20 03:16 78 30 116/76 100 10/10/20 03:10 78 30 40 10/10/20 02:46 77 36 116/76 100 10/10/20 00:00 99.6 88 27 123/85 (98) 98 88 10/10/20 00:00 45 10/10/20 00:00 93 10/10/20 00:00 Mechanical Ventilator 10/09/20 23:28 89 24 40 10/09/20 20:00 Mechanical Ventilator 10/09/20 20:00 45 10/09/20 20:00 98.4 83 32 110/74 (86) 98 83 10/09/20 19:50 79 10/09/20 19:00 80 20 40 I&O Intake and Output 10/09/20 10/10/20 19:00 07:00 Intake Total 1020 ml 870 ml Output Total 2250 ml 750 ml Balance -1230 ml 120 ml Free Water 300 ml 40 ml IV Total 110 ml Tube Feeding 720 ml 720 ml Output Urine Total 2250 ml 750 ml Dressing: saturated Cardiovascular: RSR Respiratory: decreased breath sounds Abdomen: soft, flat, non-tender, present bowel sounds, non-distended Extremities: no edema, no tenderness, no cyanosis Laboratory Tests Test 10/09/20 21:17 10/10/20 03:10 Urine Color Pale yellow Urine Appearance Cloudy Urine pH 9 (4.5-8.0) Urine Specific [place] 1.015 (1.005-1.035) Urine Protein 3+ (NEGATIVE) H Urine Glucose (UA) Negative (NEGATIVE) Urine Ketones Negative (NEGATIVE) Urine Blood 5+ (NEGATIVE) H Urine Nitrite Negative (NEGATIVE) Urine Bilirubin Negative (NEGATIVE) Urine Urobilinogen Normal MG/DL (0.0-1.0) Urine Leukocyte Esterase 2+ (NEGATIVE) H Urine RBC Tntc /HPF (0 - 0) H Urine WBC 10-15 /HPF (0 - 0) H Urine Squamous Epithelial Cells Occasional /LPF Urine Bacteria Moderate /HPF (NONE) H Urine Yeast Few /HPF (NONE) H White Blood Count 8.6 K/UL (4.8-10.8) Red Blood Count 3.03 M/UL (4.70-6.10) L Hemoglobin 8.8 G/DL (14.2-18.0) L Hematocrit 25.9 % (42.0-52.0) L Mean Corpuscular Volume 85 FL (80-99) Mean Corpuscular Hemoglobin 28.9 PG (27.0-31.0) Mean Corpuscular Hemoglobin Concent 33.9 G/DL (32.0-36.0) Red Cell Distribution Width 15.0 % (11.6-14.8) H Platelet Count 171 K/UL (150-450) Mean Platelet Volume 6.5 FL (6.5-10.1) Neutrophils (%) (Auto) 53.0 % (45.0-75.0) Lymphocytes (%) (Auto) 37.9 % (20.0-45.0) Monocytes (%) (Auto) 7.5 % (1.0-10.0) Eosinophils (%) (Auto) 0.8 % (0.0-3.0) Basophils (%) (Auto) 0.8 % (0.0-2.0) Sodium Level 138 MMOL/L (136-145) Potassium Level 4.3 MMOL/L (3.5-5.1) Chloride Level 103 MMOL/L (98-107) Carbon Dioxide Level 33 MMOL/L (21-32) H Anion Gap 2 mmol/L (5-15) L Blood Urea Nitrogen 24 mg/dL (7-18) H Creatinine 1.1 MG/DL (0.55-1.30) Estimat Glomerular Filtration Rate > 60 mL/min (>60) Glucose Level 103 MG/DL (74-106) Calcium Level 7.4 MG/DL (8.5-10.1) L Total Bilirubin 0.3 MG/DL (0.2-1.0) Aspartate Amino Transf (AST/SGOT) 25 U/L (15-37) Alanine Aminotransferase (ALT/SGPT) 21 U/L (12-78) Alkaline Phosphatase 68 U/L (46-116) Total Protein 6.3 G/DL (6.4-8.2) L Albumin 1.3 G/DL (3.4-5.0) L Globulin 5.0 g/dL Albumin/Globulin Ratio 0.3 (1.0-2.7) L Plan Problems: (1) Fever Assessment & Plan: maybe developing pneumonia cont abx pulm input thank you (2) Decubitus skin ulcer Assessment & Plan: Patient identified on admission to have multiple scabs on the left arm. mild open scabs with eschar. no drainage. no significant cellulitis. bruising no bilateral extremities noted. no signs of abuse. likely from agitation Sacral coccygeal noted to have a DTI 4.3X2.5CM. which is dark purple . RECOMMEND-CLEAN WITH SALINE, PAT DRY AND APPLY CALAZINE. COVER WITH OPTIFOAM DRESSING. REPLACE EVERY 3 DAYS OR NEEDED LEFT ISCHIUM- STAGE I PRESSURE ULCER MEASURES 4.5X1.7CM. NON-BLANCHABLE ERYTH PABLO. RECOMMEND- APPLY CALAZINE AND COVER WITH OPTIFOAM DRESSING. REPLACE EVERY 7 DAYS. Turn q2h off load pressure with pillow off load heels nutritional optimization PRODUCT SAFETY EXPERT eval will follow with recs thank you (3) Malnutrition Assessment & Plan: Mr. Roman is a 70 year old male [place] [facility] [place] 14:00 due to fever. He was found to be hypotensive 91/55 (67), Temp: 100.0, leukocytosis 20.8k and subsequently transferred to ICU for septic shock. The blood culture is reportedly positive for gram positive cocci. NG tube was placed, KUB confirmed the placement to day. Pt is clinically stable with leukocytosis 20.1, improved BUN and creatine, stable hemodynamic without vasopressor. Findings: Mr. Roman is disoriented. He does ot follow commands at this time. Oral cavity is noted to be dried blood concretion likely from NG trauma. No active bleeding site is seen. Due to his level f alertness, already NG tube is in placed, PO trial was not done at this time. Transferred out ICU last night. He is non on tele. Issues: multiple wounds, s.p balaji/nasal/pharyngeal bleeding with blood culture Gram positive cocci leukocytosis trending down from 20k-20k-16k BUN/Creatine trending down from 93/1.9-79/1.3-54/1.1 Temp: 98.1~98.7, Pulse: 62~72, BP: 105/67~120/48, SPO2 98~100% on 2 liter S: Oral cavity is better condition comparison to yesterday. The mucosa is severely erythema without active bleeding. Limited level of alertness for direct therapy. NG in placed O: 1. Laryngeal palpation to trigger spontaneous cough and swallow: Pt triggered cough with laryngeal palpation. Approximately 5~10 seconds after coughing, he triggered swallow. based on this observation, he presents with copious secretion in pharynx and larynx. He continued to have poor secretion management at laryngeal level at this time. NO PO trial was given due to poor secretion at the level of air way with low level of alertness. A: 1. Probable aspiration of his own secretion with poor ability to cough and swallow 2. Dysphagia P: 1. NPO for now 2. Observe his secretion, and level of alertness for PO readiness. DAILY ESTIMATED NEEDS: Needs based on Wound, underweight/ 55kg 30-35 kcals/kg 1260-5637 total kcals 1.25-2 g protein/kg 69-110 g total protein 25-30 mL/kg 1551-2030 total fluid mLs NUTRITION DIAGNOSIS: Increased kcal/prot needs R/T wound healing and underweight status as evidenced by pt admitted w/ wounds including DTI 2 coccyx and stage 1 @ lt ischium, pt @ 73% IBW w/ low BMI per guidelines, s/p NGT insertion, on NGT feeds. CURRENT TF:Jevity 1.2 @ 50ml/hr x 24 hrs ENTERAL NUTRITION RECOMMENDATIONS: Jevity 1.2 @ 60ml/hr x 24 hrs to provide 1440ml, 1728kcal, 80g prot, 1160ml free water * As medically appropriate, increase goal rate to 60ml/hr x 24 hrs to meet 100% est kcal/prot needs * HOB over 30 degrees/ without IVF, H2O flush of 100ml q 8hrs ADDITIONAL RECOMMENDATIONS: * Calibrated daily bedscale wt Per SNF: HT=70" * Wound healing: TF rec @ goal will provide 100% RDI add Vit C 250mg QD, ZnSO4 220mg QD x 10days, Davidson BID via NGT * Monitor BGs, need for NISS w/ TF * Monitor lytes, replete as needed- high risk for refeeding syndrome -> check f/up phos and mag (4) Severe sepsis Assessment & Plan: will likely need trach and peg. patient needs protected airway and nutrition full code no family and unable to consent medically necessary. will plan soon (5) Open upper arm wound (6) Hematuria Assessment & Plan: as per urology Aubrey Gutierrez Oct 10, 2020 17:45
--- NOTE | 2020-10-10 19:13 | NUR ---
NURSE HAND-OFF REPORT: Important Events on Shift: Patient Status: Diet: Pending Orders: Pending Results/Labs: Pending MD notification: Latest Vital Signs: Temperature 98.8 , Pulse 82 , B/P 102 /65 , Respiratory Rate 28 , O2 SAT 98 , Mechanical Ventilator, O2 Flow Rate 45.0 . Vital Sign Comment: EKG Rhythm: Sinus Rhythm Rhythm change?: N MD Notified?: N -Dr. Gabriel linares MD Response: No New Orders Received Latest Schultz Fall Score: 70 Fall Risk: High Risk Safety Measures: Call light Within Reach, Bed Alarm Zone 2, Side Rails Side Rails x3, Bed position Low and Locked. Fall Precautions: Yellow Socks Door Sign Patient Fall Education Report given to . Pt is sleeping and stable, no stress noted, Endorsed plan of care.
--- NOTE | 2020-10-10 19:15 | NUR ---
NURSE NOTES: Received pt in bed w/no sign of distress. Pt confuse and restless. Bilateral mittens in place. Trach to mech vent. Saturating 100% Respiration even and unlabored. IV to rt AC and lt FA both #20 intact w/o signs of infiltration. SR on cardiac nurse practitioner. Bed in low position, locked. Bed alarm engaged. Call light within reach. Will continue POC.
[2020-10-10 20:00] VITALS: BP 98/64
--- NOTE | 2020-10-10 21:18 | Pulmonology Progress Note ---
Subjective ROS Limited/Unobtainable: Yes Constitutional: Reports: fever, other - Pw=280.8 Gastrointestinal/Abdominal: Reports: diarrhea Allergies: Coded Allergies: VANCOMYCIN (Verified Allergy, Severe, hive, 09/28/20) All Systems: reviewed and negative except above Objective Last 24 Hour Vital Signs Date Time Temp Pulse Resp B/P (MAP) Pulse Ox O2 Delivery O2 Flow Rate FiO2 10/10/20 20:00 98.1 69 27 98/64 (75) 97 10/10/20 20:00 Mechanical Ventilator 10/10/20 20:00 91 10/10/20 20:00 45 10/10/20 19:26 85 29 40 10/10/20 16:00 45 10/10/20 16:00 98.8 82 28 102/65 (77) 98 10/10/20 16:00 Mechanical Ventilator 10/10/20 15:19 81 10/10/20 15:16 80 27 40 10/10/20 14:11 90 16 116/74 100 10/10/20 13:41 90 16 116/74 100 10/10/20 12:18 90 16 40 10/10/20 12:00 45 10/10/20 12:00 Mechanical Ventilator 10/10/20 11:53 97.2 75 26 116/74 (88) 100 10/10/20 11:43 87 10/10/20 09:42 67 22 114/72 100 10/10/20 09:12 67 22 114/72 100 10/10/20 08:17 73 10/10/20 08:00 45 10/10/20 08:00 98.1 64 20 114/72 (86) 100 64 10/10/20 08:00 Mechanical Ventilator 10/10/20 07:28 77 28 40 10/10/20 04:00 73 10/10/20 04:00 98.4 72 27 113/67 (82) 99 72 10/10/20 04:00 Mechanical Ventilator 10/10/20 04:00 45 10/10/20 03:16 78 30 116/76 100 10/10/20 03:10 78 30 40 10/10/20 02:46 77 36 116/76 100 10/10/20 00:00 99.6 88 27 123/85 (98) 98 88 10/10/20 00:00 45 10/10/20 00:00 93 10/10/20 00:00 Mechanical Ventilator 10/09/20 23:28 89 24 40 Intake and Output 10/09/20 10/10/20 19:00 07:00 Intake Total 1020 ml 870 ml Output Total 2250 ml 750 ml Balance -1230 ml 120 ml Free Water 300 ml 40 ml IV Total 110 ml Tube Feeding 720 ml 720 ml Output Urine Total 2250 ml 750 ml Microbiology Date/Time Source Procedure Growth Status 10/09/20 18:00 Sputum Gram Stain - Final Resulted 10/09/20 18:00 Sputum Sputum Culture Pending Resulted Laboratory Tests 10/10/20 03:10: White Blood Count 8.6, Red Blood Count 3.03L, Hemoglobin 8.8L, Hematocrit 25.9L, Mean Corpuscular Volume 85, Mean Corpuscular Hemoglobin 28.9, Mean Corpuscular Hemoglobin Concent 33.9, Red Cell Distribution Width 15.0H, Platelet Count 171, Mean Platelet Volume 6.5, Neutrophils (%) (Auto) 53.0, Lymphocytes (%) (Auto) 37.9, Monocytes (%) (Auto) 7.5, Eosinophils (%) (Auto) 0.8, Basophils (%) (Auto) 0.8, Sodium Level 138, Potassium Level 4.3, Chloride Level 103, Carbon Dioxide Level 33H, Anion Gap 2L, Blood Urea Nitrogen 24H, Creatinine 1.1, Estimat Glomerular Filtration Rate > 60, Glucose Level 103, Calcium Level 7.4L, Total Bilirubin 0.3, Aspartate Amino Transf (AST/SGOT) 25, Alanine Aminotransferase (ALT/SGPT) 21, Alkaline Phosphatase 68, Total Protein 6.3L, Albumin 1.3L, G lobulin 5.0, Albumin/Globulin Ratio 0.3L Current Medications Medications (Trade) Dose Ordered Sig/Aleksander Route PRN Reason Start Time Stop Time Status Last Admin Dose Admin Acetaminophen (Tylenol) 650 mg Q4H PRN NG Temp >100.5 09/10/20 23:15 10/10/20 23:14 10/08/20 20:21 Acetaminophen (Tylenol) 650 mg Q6H PRN NG pain 1-6 10/08/20 15:30 11/07/20 15:14 Al Hydroxide/Mg Hydroxide (Mylanta) 30 ml Q4H PRN NG Constipation 09/11/20 00:15 10/10/20 23:14 Ascorbic Acid (Vitamin C) 250 mg DAILY NG 09/26/20 09:00 10/18/20 08:59 10/10/20 09:09 Diphenhydramine HCl (Benadryl) 25 mg Q6H PRN IVP Itching 09/27/20 12:15 10/27/20 12:14 10/09/20 23:30 Diphenoxylate HCl/ Atropine (Lomotil) 2.5 mg Q4H PRN ORAL Diarrhea 09/20/20 08:15 10/20/20 08:14 Famotidine (Pepcid) 20 mg BID GT 10/04/20 09:00 01/02/21 08:59 10/10/20 17:29 Finasteride (Proscar) 5 mg DAILY ORAL 09/13/20 09:00 12/12/20 08:59 10/10/20 09:12 Furosemide (Lasix) 40 mg DAILY IV 10/03/20 09:00 11/02/20 08:59 10/10/20 09:12 Hydromorphone HCl (Dilaudid) 0.5 mg Q4H PRN IVP SEVERE PAIN 10/08/20 15:18 10/15/20 15:17 Lorazepam (Ativan) 1 mg Q4H PRN GT For Anxiety 10/07/20 22:00 10/14/20 21:59 10/10/20 13:41 Multivitamins (Multivitamins W/ Minerals 15ml Liquid) 15 ml DAILY NG 09/26/20 09:00 10/26/20 08:59 10/10/20 09:09 Ondansetron HCl (Zofran) 4 mg Q6H PRN IVP Nausea & Vomiting 09/10/20 23:15 10/10/20 23:14 Piperacillin Sod/ Tazobactam Sod 3.375 gm/Sodium Chloride 110 ml @ 27.5 mls/hr EVERY 8 HOURS IVPB 10/09/20 11:00 10/14/20 10:59 10/10/20 13:42 Spironolactone (Aldactone) 25 mg DAILY GT 10/05/20 09:00 11/04/20 08:59 10/10/20 09:09 Tamsulosin HCl (Flomax) 0.4 mg BEDTIME ORAL 09/12/20 21:00 10/12/20 20:59 10/09/20 21:04 Valproic Acid (Depakene) 1,000 mg BEDTIME GT 10/06/20 21:00 10/31/20 20:59 10/09/20 21:05 Zinc Sulfate (Zinc Sulfate) 220 mg DAILY GT 10/06/20 09:00 01/04/21 08:59 10/10/20 09:12 Assessment/Plan Assessment/Plan Pulmonary Progress Note Subjective Allergies: Coded Allergies: No Known Allergies (Unverified , 09/10/20) Subjective remains confused stable oxygen requirements Persistant infiltrates AB per ID TF to SNF once stable CXR improving infiltrates Objective Vital Signs noted Height (Feet): 5 Height (Inches): 7.00 Weight (Pounds): 121 Objective WDWN NAD reduced breath sounds bilaterally without rhonchi or wheeze [id number] without MRG NABS nontender no HSM no CCE nonfocal remains confused Assessment/Plan Assessment/Plan: IMPRESSION: 1. Acute renal failure. 2. Hypernatremia improving 3. Leukocytosis. 4. Pneumonia/ sepsis. 5. Hypotension. 6. Dementia. 7. Acute on chronic encephalopathy. 8. bcx staph Epi 9. MRSA colonized PLAN continue current ventilator settings taper fio2 ID noted; monitor follow up on antibiotics monitor oxygen needs off load as able monitor lytes position change monitor imaging d/w consultants and nursing remains critical trach care dc plan to subacute impression, plan, and exam edited and reviewed in detail care discussed with Madi Richard MD Oct 10, 2020 21:18
[2020-10-10] MEDS: Tamsulosin 0.4mg cap ORAL SCH (22:12)
[2020-10-10] MEDS: Valproic Acid 250mg/5ml Liquid GT SCH (22:12)
[2020-10-10] MEDS: DiphenhydrAMINE 50mg/ml Inj IVP PRN (22:15)
[2020-10-11] VITALS: BP 122/75
--- NOTE | 2020-10-11 00:11 | NUR ---
NURSE NOTES: Remain restless. Respiration even and unlabored. SB at 57 on api developer. VSS afebrile. In no apparent distress.
[2020-10-11] MEDS: LORazepam 1mg tab GT PRN ×3 (01:54→13:45)
--- NOTE | 2020-10-11 02:00 | NUR ---
NURSE NOTES: Eyes close. Medicated effectively with ativan. No distress noted. Respirations even and unlabored. SR on ent physician. No significant changes noted. VSS afebrile.
--- NOTE | 2020-10-11 02:15 | Cardiology Progress Note ---
Subjective DATE OF SERVICE: Oct 10, 2020 Remains on vent via trach, requiring 40-45% oxygen delivery. Remains congested; less edematous. Fluid balance negative on current diuretic dose. BP remains mostly controlled. Monitor: sinus/ sinus tachycardia. 912/21) 7.48/44/75 Objective Last 24 Hour Vital Signs Date Time Temp Pulse Resp B/P (MAP) Pulse Ox O2 Delivery O2 Flow Rate FiO2 10/11/20 01:54 57 23 122/75 100 10/11/20 00:00 57 10/11/20 00:00 45 10/11/20 00:00 98.6 57 23 122/75 (91) 100 10/11/20 00:00 Mechanical Ventilator 10/10/20 23:34 82 31 40 10/10/20 20:00 98.1 69 27 98/64 (75) 97 10/10/20 20:00 Mechanical Ventilator 10/10/20 20:00 91 10/10/20 20:00 45 10/10/20 19:26 85 29 40 10/10/20 16:00 45 10/10/20 16:00 98.8 82 28 102/65 (77) 98 10/10/20 16:00 Mechanical Ventilator 10/10/20 15:19 81 10/10/20 15:16 80 27 40 10/10/20 14:11 90 16 116/74 100 10/10/20 13:41 90 16 116/74 100 10/10/20 12:18 90 16 40 10/10/20 12:00 45 10/10/20 12:00 Mechanical Ventilator 10/10/20 11:53 97.2 75 26 116/74 (88) 100 10/10/20 11:43 87 10/10/20 09:42 67 22 114/72 100 10/10/20 09:12 67 22 114/72 100 10/10/20 08:17 73 10/10/20 08:00 45 10/10/20 08:00 98.1 64 20 114/72 (86) 100 64 10/10/20 08:00 Mechanical Ventilator 10/10/20 07:28 77 28 40 10/10/20 04:00 73 10/10/20 04:00 98.4 72 27 113/67 (82) 99 72 10/10/20 04:00 Mechanical Ventilator 10/10/20 04:00 45 10/10/20 03:16 78 30 116/76 100 10/10/20 03:10 78 30 40 10/10/20 02:46 77 36 116/76 100 ROS: no change from my evaluation of 09/10/20. HEENT: Mechanically Ventilated, Thin Trach secretions RHYTHM: NSR, ST LUNGS: bilat. rhonchi and rales, trach site clean CARDIAC: normal rate, regular rhythm, normal S1 and S2 ABDOMEN: normal bowel sounds, soft, other - sacral decub EXTREMITIES: +1 edema Laboratory Tests Test 10/10/20 03:10 White Blood Count 8.6 K/UL (4.8-10.8) Red Blood Count 3.03 M/UL (4.70-6.10) L Hemoglobin 8.8 G/DL (14.2-18.0) L Hematocrit 25.9 % (42.0-52.0) L Mean Corpuscular Volume 85 FL (80-99) Mean Corpuscular Hemoglobin 28.9 PG (27.0-31.0) Mean Corpuscular Hemoglobin Concent 33.9 G/DL (32.0-36.0) Red Cell Distribution Width 15.0 % (11.6-14.8) H Platelet Count 171 K/UL (150-450) Mean Platelet Volume 6.5 FL (6.5-10.1) Neutrophils (%) (Auto) 53.0 % (45.0-75.0) Lymphocytes (%) (Auto) 37.9 % (20.0-45.0) Monocytes (%) (Auto) 7.5 % (1.0-10.0) Eosinophils (%) (Auto) 0.8 % (0.0-3.0) Basophils (%) (Auto) 0.8 % (0.0-2.0) Sodium Level 138 MMOL/L (136-145) Potassium Level 4.3 MMOL/L (3.5-5.1) Chloride Level 103 MMOL/L (98-107) Carbon Dioxide Level 33 MMOL/L (21-32) H Anion Gap 2 mmol/L (5-15) L Blood Urea Nitrogen 24 mg/dL (7-18) H Creatinine 1.1 MG/DL (0.55-1.30) Estimat Glomerular Filtration Rate > 60 mL/min (>60) Glucose Level 103 MG/DL (74-106) Calcium Level 7.4 MG/DL (8.5-10.1) L Total Bilirubin 0.3 MG/DL (0.2-1.0) Aspartate Amino Transf (AST/SGOT) 25 U/L (15-37) Alanine Aminotransferase (ALT/SGPT) 21 U/L (12-78) Alkaline Phosphatase 68 U/L (46-116) Total Protein 6.3 G/DL (6.4-8.2) L Albumin 1.3 G/DL (3.4-5.0) L Globulin 5.0 g/dL Albumin/Globulin Ratio 0.3 (1.0-2.7) L Microbiology Date/Time Source Procedure Growth Status 10/09/20 18:00 Sputum Gram Stain - Final Resulted 10/09/20 18:00 Sputum Sputum Culture Pending Resulted Assessment/Plan Assessment/Plan Respiratory failure with hypoxia - s/p tracheostomy Sepsis Aspiration PNA Recurring shock - recovered Diarrhea Dehydration/hypernatremia corrected Acute myocardial ischemia Acute renal failure HC assoc PNA UTI Transaminitis, acute CVA/dementia Paroxysmal sinus bradycardia and tachycardia Acute/chronic diastolic CHF Severe protein/calorie malnutrition with dysphagia; now s/p PEG Hypokalemia Remains CRITICAL & GUARDED Vent support with trach care; wean down O2. Antimicrobials per ID. ?reculture for fever Replace lytes as needed. DVT prophyl Cardiac monitoring Diurese with oral maint dose of furosemide and aldactone now Madi Rios MD Oct 11, 2020 02:15
[2020-10-11 04:00] VITALS: BP 123/82
--- NOTE | 2020-10-11 06:00 | NUR ---
NURSE NOTES: Pt. in bed w/no sign of distress. Medicated effectively for agitation and restlessness. Respiration even and unlabored. SR on quality assurance monitor final. Bed in low position, locked. VSS Afebrile Bed alarm engaged. Call light within reach. Will continue POC.
[2020-10-11] MEDS: Piperacillin/Tazobactam 3.375 GM in NS 110 ML IVPB SCH ×3 (06:24→22:34)
--- NOTE | 2020-10-11 07:15 | NUR ---
HAND-OFF: Report given to ARTEMIO Haro.
--- NOTE | 2020-10-11 07:28 | NUR ---
NURSE NOTES: Received pt from ARTEMIO Gilbert, pt is sleeping, pt has trach to ventilator AC 12 TV 450 FIO2 45% PEEP 7, Pt has intact iv access RAC 20G and LFA 20G SL. Pt has g tube in place is running well. Pt has Rae cath in place is working well. no complain of pain noted at this moment. all needs attended, bed is locked and is in the lowest position, call light within easy reach. will continue to monitor.
--- NOTE | 2020-10-11 07:52 | NUR ---
RD ASSESSMENT & RECOMMENDATIONS SEE CARE ACTIVITY FOR COMPLETE ASSESSMENT DAILY ESTIMATED NEEDS: Needs based on Wound, underweight, critical care/ 55kg 25-33 kcals/kg 1598-2259 total kcals 1.25-2 g protein/kg 69-110 g total protein 25-30 mL/kg 4965-0210 total fluid mLs NUTRITION DIAGNOSIS: * Increased kcal/prot needs R/T wound healing and underweight status as evidenced by pt admitted w/ wounds including DTI 2 coccyx and stage 1 @ lt ischium, pt @ 73% IBW w/ low BMI per guidelines. * Swallowing difficulty R/T respiratory status as evidenced by s/p code blue (09/22), orally intubated, s/p trach placement (09/27), s/p PEG placement (10/01). CURRENT TF: Jevity 1.2 @60 ml/hr ENTERAL NUTRITION RECOMMENDATIONS: Jevity 1.2 @ 65ml/hr x 24 hrs to provide 1560ml, 1872kcal, 87g prot, 1259ml free water * Increase goal rate as tolerated by 5ml/hr to better meet est needs * HOB over 30 degrees/ water flush per MD ADDITIONAL RECOMMENDATIONS: * Calibrated daily bedscale wt Per SNF: HT=70" * Wound healing: TF rec @ goal will provide 100% RDI Continue Vit C and ZnSO4, add Davidson BID via TF * Monitor lytes, replete as needed * Monitor hydration status: BUN now elevated (24) * Monitor BGs for hypoglycemia: Rec added D5 while NPO
[2020-10-11 08:00] VITALS: BP 118/76
[2020-10-11] MEDS: Zinc Sulfate 220mg GT SCH (08:31)
[2020-10-11] MEDS: Spironolactone 25mg tab GT SCH (08:31)
[2020-10-11] MEDS: Ascorbic Acid 500mg tab NG SCH (08:31)
[2020-10-11] MEDS: Furosemide 40mg tab GT SCH (08:32)
[2020-10-11] MEDS: Multivitamins W/Minerals 15 ML UDC NG SCH (08:32)
--- NOTE | 2020-10-11 09:10 | Urology Progress Note ---
Assessment/Plan Status: stable Assessment/Plan: 1. Gross hematuria. 2. Pyuria and possible UTI. 3. Proteinuria. 4. BPH. 5. Urinary retention. 6. Probable neurogenic bladder. 7. Possible sepsis. monitor clinically maintain andrade, secured to pt's leg hand irrigated and do PRN restarted on abx flomax and proscar cysto electively voiding trial at some point? or change andrade Subjective Allergies: Coded Allergies: VANCOMYCIN (Verified Allergy, Severe, hive, 09/28/20) Subjective remains on vent, trach 09/27 Objective Last 24 Hour Vital Signs Date Time Temp Pulse Resp B/P (MAP) Pulse Ox O2 Delivery O2 Flow Rate FiO2 10/11/20 08:00 45 10/11/20 07:56 Mechanical Ventilator 10/11/20 06:52 65 27 123/82 99 10/11/20 06:24 71 28 122/75 100 10/11/20 04:00 97.9 65 27 123/82 (96) 99 10/11/20 03:59 71 10/11/20 03:53 Mechanical Ventilator 10/11/20 03:50 45 10/11/20 02:50 86 28 40 10/11/20 02:20 71 28 122/75 100 10/11/20 01:54 57 23 122/75 100 10/11/20 00:00 57 10/11/20 00:00 45 10/11/20 00:00 98.6 57 23 122/75 (91) 100 10/11/20 00:00 Mechanical Ventilator 10/10/20 23:34 82 31 40 10/10/20 20:00 98.1 69 27 98/64 (75) 97 10/10/20 20:00 Mechanical Ventilator 10/10/20 20:00 91 10/10/20 20:00 45 10/10/20 19:26 85 29 40 10/10/20 16:00 45 10/10/20 16:00 98.8 82 28 102/65 (77) 98 10/10/20 16:00 Mechanical Ventilator 10/10/20 15:19 81 10/10/20 15:16 80 27 40 10/10/20 14:11 90 16 116/74 100 10/10/20 13:41 90 16 116/74 100 10/10/20 12:18 90 16 40 10/10/20 12:00 45 10/10/20 12:00 Mechanical Ventilator 10/10/20 11:53 97.2 75 26 116/74 (88) 100 10/10/20 11:43 87 10/10/20 09:42 67 22 114/72 100 10/10/20 09:12 67 22 114/72 100 Intake and Output 10/10/20 10/11/20 19:00 07:00 Intake Total 862.5 ml 930.0 ml Output Total 1800 ml 1050 ml Balance -937.5 ml -120.0 ml Free Water 60 ml 100 ml IV Total 82.5 ml 110.0 ml Tube Feeding 720 ml 720 ml Output Urine Total 1800 ml 1050 ml Microbiology Date/Time Source Procedure Growth Status 10/09/20 18:00 Sputum Gram Stain - Final Resulted 10/09/20 18:00 Sputum Culture - Preliminary Gram Negative Scotty Resulted 09/18/20 18:30 Stool Clostridium difficile Toxin Assay - Final Complete 09/17/20 12:58 Blood Blood Culture - Final NO GROWTH AFTER 5 DAYS Complete 09/10/20 20:05 Urine,Clean Catch Urine Culture - Final NO GROWTH AFTER 48 HOURS Complete 09/10/20 17:15 Rectum VRE Culture - Final Enterococcus Faecalis - Vre Complete Current Medications Medications (Trade) Dose Ordered Sig/Aleksander Route PRN Reason Start Time Stop Time Status Last Admin Dose Admin Acetaminophen (Tylenol) 650 mg Q6H PRN NG pain 1-6 10/08/20 15:30 11/07/20 15:14 Ascorbic Acid (Vitamin C) 250 mg DAILY NG 09/26/20 09:00 10/18/20 08:59 10/11/20 08:31 Diphenhydramine HCl (Benadryl) 25 mg Q6H PRN IVP Itching 09/27/20 12:15 10/27/20 12:14 10/10/20 22:15 Diphenoxylate HCl/ Atropine (Lomotil) 2.5 mg Q4H PRN ORAL Diarrhea 09/20/20 08:15 10/20/20 08:14 Famotidine (Pepcid) 20 mg BID GT 10/04/20 09:00 01/02/21 08:59 10/11/20 08:30 Finasteride (Proscar) 5 mg DAILY ORAL 09/13/20 09:00 12/12/20 08:59 10/11/20 08:31 Furosemide (Lasix) 40 mg DAILY GT 10/11/20 09:00 11/10/20 08:59 10/11/20 08:32 Hydromorphone HCl (Dilaudid) 0.5 mg Q4H PRN IVP SEVERE PAIN 10/08/20 15:18 10/15/20 15:17 Lorazepam (Ativan) 1 mg Q4H PRN GT For Anxiety 10/07/20 22:00 10/14/20 21:59 10/11/20 06:24 Multivitamins (Multivitamins W/ Minerals 15ml Liquid) 15 ml DAILY NG 09/26/20 09:00 10/26/20 08:59 10/11/20 08:32 Piperacillin Sod/ Tazobactam Sod 3.375 gm/Sodium Chloride 110 ml @ 27.5 mls/hr EVERY 8 HOURS IVPB 10/09/20 11:00 10/14/20 10:59 10/11/20 06:24 Spironolactone (Aldactone) 25 mg DAILY GT 10/05/20 09:00 11/04/20 08:59 10/11/20 08:31 Tamsulosin HCl (Flomax) 0.4 mg BEDTIME ORAL 09/12/20 21:00 10/12/20 20:59 10/10/20 22:12 Valproic Acid (Depakene) 1,000 mg BEDTIME GT 10/06/20 21:00 10/31/20 20:59 10/10/20 22:12 Zinc Sulfate (Zinc Sulfate) 220 mg DAILY GT 10/06/20 09:00 01/04/21 08:59 10/11/20 08:31 Height (Feet): 6 Height (Inches): 1.00 Weight (Pounds): 148 Objective exam stable urine clearing Levi Brunson MD Oct 11, 2020 09:10
[2020-10-11 12:00] VITALS: BP 120/74
--- NOTE | 2020-10-11 13:16 | General Progress Note ---
Subjective ROS Limited/Unobtainable: No Constitutional: Reports: malaise, weakness HEENT: Reports: no symptoms Cardiovascular: Reports: no symptoms Respiratory: Reports: cough, shortness of breath, sputum Gastrointestinal/Abdominal: Reports: difficulty swallowing Genitourinary: Reports: no symptoms Neurologic/Psychiatric: Reports: pre-existing deficit Endocrine: Reports: no symptoms Hematologic/Lymphatic: Reports: anemia Allergies: Coded Allergies: VANCOMYCIN (Verified Allergy, Severe, hive, 09/28/20) All Systems: reviewed and negative except above Subjective no change. stable on the vent. awake but confused. does not follow commands. tolerating feeds. fio2 40-45%. waiting for bed at subacute Objective Last 24 Hour Vital Signs Date Time Temp Pulse Resp B/P (MAP) Pulse Ox O2 Delivery O2 Flow Rate FiO2 10/11/20 12:00 Mechanical Ventilator 10/11/20 12:00 97.9 83 22 120/74 (89) 99 10/11/20 12:00 45 10/11/20 11:41 73 10/11/20 08:14 68 10/11/20 08:00 45 10/11/20 08:00 97.9 77 31 118/76 (90) 98 10/11/20 07:56 Mechanical Ventilator 10/11/20 06:52 65 27 123/82 99 10/11/20 06:24 71 28 122/75 100 10/11/20 04:00 97.9 65 27 123/82 (96) 99 10/11/20 03:59 71 10/11/20 03:53 Mechanical Ventilator 10/11/20 03:50 45 10/11/20 02:50 86 28 40 10/11/20 02:20 71 28 122/75 100 10/11/20 01:54 57 23 122/75 100 10/11/20 00:00 57 10/11/20 00:00 45 10/11/20 00:00 98.6 57 23 122/75 (91) 100 10/11/20 00:00 Mechanical Ventilator 10/10/20 23:34 82 31 40 10/10/20 20:00 98.1 69 27 98/64 (75) 97 10/10/20 20:00 Mechanical Ventilator 10/10/20 20:00 91 10/10/20 20:00 45 10/10/20 19:26 85 29 40 10/10/20 16:00 45 10/10/20 16:00 98.8 82 28 102/65 (77) 98 10/10/20 16:00 Mechanical Ventilator 10/10/20 15:19 81 10/10/20 15:16 80 27 40 10/10/20 14:11 90 16 116/74 100 10/10/20 13:41 90 16 116/74 100 Intake and Output 10/10/20 10/11/20 19:00 07:00 Intake Total 862.5 ml 930.0 ml Output Total 1800 ml 1050 ml Balance -937.5 ml -120.0 ml Free Water 60 ml 100 ml IV Total 82.5 ml 110.0 ml Tube Feeding 720 ml 720 ml Output Urine Total 1800 ml 1050 ml Height (Feet): 6 Height (Inches): 1.00 Weight (Pounds): 148 Objective General Appearance: WD/WN, confused. EENT: normal ENT inspection. +trach, dressing clean Neck: normal alignment, supple Cardiovascular: normal rate, regular rhythm Respiratory/Chest: rhonchi - bilaterally. diminished BS Abdomen: normal bowel sounds, non tender, soft, no organomegaly Edema: no edema noted Leg (L), no edema noted Leg (R) Neurologic: certified pediatric nurse practitioner II-XII grossly normal, responsive, disoriented Lymphatic: normal anterior cervical (L), normal anterior cervical (R), normal posterior cervical (L), normal posterior cervical (R) Assessment/Plan Problem List: (1) PNA (pneumonia) ICD Codes: J18.9 - Pneumonia, unspecified organism SNOMED: 482758412 (2) UTI (urinary tract infection) ICD Codes: N39.0 - Urinary tract infection, site not specified SNOMED: 47386132 (3) Fever ICD Codes: R50.9 - Fever, unspecified SNOMED: 176433449 Qualifiers: Qualified Codes: R50.9 - Fever, unspecified (4) Decubitus skin ulcer ICD Codes: L89.90 - Pressure ulcer of unspecified site, unspecified stage SNOMED: 985763551 (5) Malnutrition ICD Codes: E46 - Unspecified protein-calorie malnutrition SNOMED: 26731337 (6) Severe sepsis ICD Codes: A41.9 - Sepsis, unspecified organism; R65.20 - Severe sepsis without septic shock SNOMED: 16354634 (7) Hematuria ICD Codes: R31.9 - Hematuria, unspecified SNOMED: 79224128 Status: stable Assessment/Plan: iv zosyn per ID resp rx and suctioning trach care titrate fio2 monitor abg skin care tube feeds- tolerating monitor labs transfuse prn monitor for bleeding poor prognosis dc planning Jason Layne MD Oct 11, 2020 13:16
--- NOTE | 2020-10-11 13:58 | Infectious Diseases Prog Note ---
Assessment/Plan Assessment/Plan A 1. Pneumonia gram negatives 2. Dementia. 3. Leukocytosis 4. Urinary tract infection treated 5. 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 BPH 8. New fever P 1. Will f/u Sputum culture 2. Continue Zosyn Subjective ROS Limited/Unobtainable: Yes Constitutional: Denies: fever Neurologic: Reports: confusion, other - restraint by mittens Allergies: Coded Allergies: VANCOMYCIN (Verified Allergy, Severe, hive, 09/28/20) Objective Last 24 Hour Vital Signs Date Time Temp Pulse Resp B/P (MAP) Pulse Ox O2 Delivery O2 Flow Rate FiO2 10/11/20 13:45 83 22 120/74 99 10/11/20 12:00 Mechanical Ventilator 10/11/20 12:00 97.9 83 22 120/74 (89) 99 10/11/20 12:00 45 10/11/20 11:41 73 10/11/20 08:14 68 10/11/20 08:00 45 10/11/20 08:00 97.9 77 31 118/76 (90) 98 10/11/20 07:56 Mechanical Ventilator 10/11/20 06:52 65 27 123/82 99 10/11/20 06:24 71 28 122/75 100 10/11/20 04:00 97.9 65 27 123/82 (96) 99 10/11/20 03:59 71 10/11/20 03:53 Mechanical Ventilator 10/11/20 03:50 45 10/11/20 02:50 86 28 40 10/11/20 02:20 71 28 122/75 100 10/11/20 01:54 57 23 122/75 100 10/11/20 00:00 57 10/11/20 00:00 45 10/11/20 00:00 98.6 57 23 122/75 (91) 100 10/11/20 00:00 Mechanical Ventilator 10/10/20 23:34 82 31 40 10/10/20 20:00 98.1 69 27 98/64 (75) 97 10/10/20 20:00 Mechanical Ventilator 10/10/20 20:00 91 10/10/20 20:00 45 10/10/20 19:26 85 29 40 10/10/20 16:00 45 10/10/20 16:00 98.8 82 28 102/65 (77) 98 10/10/20 16:00 Mechanical Ventilator 10/10/20 15:19 81 10/10/20 15:16 80 27 40 10/10/20 14:11 90 16 116/74 100 Height (Feet): 6 Height (Inches): 1.00 Weight (Pounds): 148 HEENT: mucous membranes moist, status post trach Respiratory/Chest: other - on ventilator Cardiovascular: normal rate Abdomen: soft, non tender, other - GT feeding Neurologic/Psychiatric: aphasia Microbiology Date/Time Source Procedure Growth Status 10/09/20 18:00 Sputum Gram Stain - Final Resulted 10/09/20 18:00 Sputum Culture - Preliminary Gram Negative Scotty Resulted Current Medications Medications (Trade) Dose Ordered Sig/Aleksander Route PRN Reason Start Time Stop Time Status Last Admin Dose Admin Acetaminophen (Tylenol) 650 mg Q6H PRN NG pain 1-6 10/08/20 15:30 11/07/20 15:14 Ascorbic Acid (Vitamin C) 250 mg DAILY NG 09/26/20 09:00 10/18/20 08:59 10/11/20 08:31 Bisacodyl (Dulcolax) 10 mg DAILYPRN PRN RECTAL Constipation 10/11/20 12:00 01/09/21 11:59 Diphenhydramine HCl (Benadryl) 25 mg Q6H PRN IVP Itching 09/27/20 12:15 10/27/20 12:14 10/10/20 22:15 Diphenoxylate HCl/ Atropine (Lomotil) 2.5 mg Q4H PRN ORAL Diarrhea 09/20/20 08:15 10/20/20 08:14 Docusate Sodium (Colace) 100 mg TWICE A DAY NG 10/11/20 18:00 11/10/20 17:59 Famotidine (Pepcid) 20 mg BID GT 10/04/20 09:00 01/02/21 08:59 10/11/20 08:30 Finasteride (Proscar) 5 mg DAILY ORAL 09/13/20 09:00 12/12/20 08:59 10/11/20 08:31 Furosemide (Lasix) 40 mg DAILY GT 10/11/20 09:00 11/10/20 08:59 10/11/20 08:32 Hydromorphone HCl (Dilaudid) 0.5 mg Q4H PRN IVP SEVERE PAIN 10/08/20 15:18 10/15/20 15:17 Lorazepam (Ativan) 1 mg Q4H PRN GT For Anxiety 10/07/20 22:00 10/14/20 21:59 10/11/20 13:45 Multivitamins (Multivitamins W/ Minerals 15ml Liquid) 15 ml DAILY NG 09/26/20 09:00 10/26/20 08:59 10/11/20 08:32 Piperacillin Sod/ Tazobactam Sod 3.375 gm/Sodium Chloride 110 ml @ 27.5 mls/hr EVERY 8 HOURS IVPB 10/09/20 11:00 10/14/20 10:59 10/11/20 13:45 Spironolactone (Aldactone) 25 mg DAILY GT 10/05/20 09:00 11/04/20 08:59 10/11/20 08:31 Tamsulosin HCl (Flomax) 0.4 mg BEDTIME ORAL 10/11/20 21:00 11/10/20 20:59 Valproic Acid (Depakene) 1,000 mg BEDTIME GT 10/06/20 21:00 10/31/20 20:59 10/10/20 22:12 Zinc Sulfate (Zinc Sulfate) 220 mg DAILY GT 10/06/20 09:00 01/04/21 08:59 10/11/20 08:31 Bradley Gil MD Oct 11, 2020 13:58
--- NOTE | 2020-10-11 14:06 | Surgery Progress Note ---
Surgery Progress Note Subjective Procedure Performed tracheostomy Additional Comments no acute events Objective Last 24 Hour Vital Signs Date Time Temp Pulse Resp B/P (MAP) Pulse Ox O2 Delivery O2 Flow Rate FiO2 10/11/20 13:45 83 22 120/74 99 10/11/20 12:00 Mechanical Ventilator 10/11/20 12:00 97.9 83 22 120/74 (89) 99 10/11/20 12:00 45 10/11/20 11:41 73 10/11/20 08:14 68 10/11/20 08:00 45 10/11/20 08:00 97.9 77 31 118/76 (90) 98 10/11/20 07:56 Mechanical Ventilator 10/11/20 06:52 65 27 123/82 99 10/11/20 06:24 71 28 122/75 100 10/11/20 04:00 97.9 65 27 123/82 (96) 99 10/11/20 03:59 71 10/11/20 03:53 Mechanical Ventilator 10/11/20 03:50 45 10/11/20 02:50 86 28 40 10/11/20 02:20 71 28 122/75 100 10/11/20 01:54 57 23 122/75 100 10/11/20 00:00 57 10/11/20 00:00 45 10/11/20 00:00 98.6 57 23 122/75 (91) 100 10/11/20 00:00 Mechanical Ventilator 10/10/20 23:34 82 31 40 10/10/20 20:00 98.1 69 27 98/64 (75) 97 10/10/20 20:00 Mechanical Ventilator 10/10/20 20:00 91 10/10/20 20:00 45 10/10/20 19:26 85 29 40 10/10/20 16:00 45 10/10/20 16:00 98.8 82 28 102/65 (77) 98 10/10/20 16:00 Mechanical Ventilator 10/10/20 15:19 81 10/10/20 15:16 80 27 40 10/10/20 14:11 90 16 116/74 100 I&O Intake and Output 10/10/20 10/11/20 19:00 07:00 Intake Total 862.5 ml 930.0 ml Output Total 1800 ml 1050 ml Balance -937.5 ml -120.0 ml Free Water 60 ml 100 ml IV Total 82.5 ml 110.0 ml Tube Feeding 720 ml 720 ml Output Urine Total 1800 ml 1050 ml Dressing: saturated Cardiovascular: RSR Respiratory: decreased breath sounds Abdomen: non-tender, present bowel sounds Extremities: no tenderness, no cyanosis Plan Problems: (1) Fever Assessment & Plan: maybe developing pneumonia cont abx pulm input thank you (2) Decubitus skin ulcer Assessment & Plan: Patient identified on admission to have multiple scabs on the left arm. mild open scabs with eschar. no drainage. no significant cellulitis. bruising no bilateral extremities noted. no signs of abuse. likely from agitation Sacral coccygeal noted to have a DTI 4.3X2.5CM. which is dark purple . RECOMMEND-CLEAN WITH SALINE, PAT DRY AND APPLY CALAZINE. COVER WITH OPTIFOAM DRESSING. REPLACE EVERY 3 DAYS OR NEEDED LEFT ISCHIUM- STAGE I PRESSURE ULCER MEASURES 4.5X1.7CM. NON-BLANCHABLE ERYTHEMA. RECOMMEND- APPLY CALAZINE AND COVER WITH OPTIFOAM DRESSING. REPLACE EVERY 7 DAYS. 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 Roman is a 70 year old male [place] [facility] [place] around 14:00 due to fever. He was found to be hypotensive 91/55 (67) , Temp: 100.0, leukocytosis 20.8k and subsequently transferred to ICU for septic shock. The blood culture is reportedly positive for gram positive cocci. NG tube was placed, KUB confirmed the placement to day. Pt is clinically stable with leukocytosis 20.1, improved BUN and creatine, stable hemodynamic without vasopressor. Findings: Mr. Roman is disoriented. He does ot follow commands at this time. Oral cavity is noted to be dried blood concretion likely from NG trauma. No active bleeding site is seen. Due to his level f alertness, already NG tube is in placed, PO trial was not done at this time. Transferred out ICU last night. He is non on tele. Issues: multiple wounds, s.p balaji/nasal/pharyngeal bleeding with blood culture Gram positive cocci leukocytosis trending down from 20k-20k-16k BUN/Creatine trending down from 93/1.9-79/1.3-54/1.1 Temp: 98.1~98.7, Pulse: 62~72, BP: 105/67~120/48, SPO2 98~100% on 2 liter S: Oral cavity is better condition comparison to yesterday. The mucosa is severely erythema without active bleeding. Limited level of alertness for direct therapy. NG in placed O: 1. Laryngeal palpation to trigger spontaneous cough and swallow: Pt triggered cough with laryngeal palpation. Approximately 5~10 seconds after coughing, he triggered swallow. based on this observation, he presents with copious secretion in pharynx and larynx. He continued to have poor secretion management at laryngeal level at this time. NO PO trial was given due to poor secretion at the level of air way with low level of alertness. A: 1. Probable aspiration of his own secretion with poor ability to cough and swallow 2. Dysphagia P: 1. NPO for now 2. Observe his secretion, and level of alertness for PO readiness. DAILY ESTIMATED NEEDS: Needs based on Wound, underweight/ 55kg 30-35 kcals/kg 3871-4844 total kcals 1.25-2 g protein/kg 69-110 g total protein 25-30 mL/kg 8890-8749 total fluid mLs NUTRITION DIAGNOSIS: Increased kcal/prot needs R/T wound healing and underweight status as evidenced by pt admitted w/ wounds including DTI 2 coccyx and stage 1 @ lt ischium, pt @ 73% IBW w/ low BMI per guidelines, s/p NGT insertion, on NGT feeds. CURRENT TF:Jevity 1.2 @ 50ml/hr x 24 hrs ENTERAL NUTRITION RECOMMENDATIONS: Jevity 1.2 @ 60ml/hr x 24 hrs to provide 1440ml, 1728kcal, 80g prot, 1160ml free water * As medically appropriate, increase goal rate to 60ml/hr x 24 hrs to meet 100% est kcal/prot needs * HOB over 30 degrees/ without IVF, H2O flush of 100ml q 8hrs ADDITIONAL RECOMMENDATIONS: * Calibrated daily bedscale wt Per SNF: HT=70" * Wound healing: TF rec @ goal will provide 100% RDI add Vit C 250mg QD, ZnSO4 220mg QD x 10days, Davidson BID via NGT * Monitor BGs, need for NISS w/ TF * Monitor lytes, replete as needed- high risk for refeeding syndrome -> check f/up phos and mag (4) Severe sepsis Assessment & Plan: will likely need trach and peg. patient needs protected airway and nutrition full code no family and unable to consent medically necessary. will plan soon (5) Open upper arm wound (6) Hematuria Assessment & Plan: as per urology Aubrey Gutierrez Oct 11, 2020 14:06
[2020-10-11 16:00] VITALS: BP 100/68
--- NOTE | 2020-10-11 17:13 | Cardiology Progress Note ---
Subjective DATE OF SERVICE: Oct 11, 2020 Remains on vent via trach, requiring 40-45% oxygen delivery. Remains congested; less edematous. Fluid balance negative on current diuretic dose. BP remains mostly controlled. Monitor: sinus/ sinus tachycardia. 912/21) 7.48/44/75 Objective Last 24 Hour Vital Signs Date Time Temp Pulse Resp B/P (MAP) Pulse Ox O2 Delivery O2 Flow Rate FiO2 10/11/20 16:00 Mechanical Ventilator 10/11/20 16:00 45 10/11/20 16:00 97.9 79 27 100/68 (79) 100 10/11/20 15:27 75 10/11/20 14:15 73 23 100/68 99 10/11/20 13:45 83 22 120/74 99 10/11/20 12:00 Mechanical Ventilator 10/11/20 12:00 97.9 83 22 120/74 (89) 99 10/11/20 12:00 45 10/11/20 11:41 73 10/11/20 08:14 68 10/11/20 08:00 45 10/11/20 08:00 97.9 77 31 118/76 (90) 98 10/11/20 07:56 Mechanical Ventilator 10/11/20 06:52 65 27 123/82 99 10/11/20 06:24 71 28 122/75 100 10/11/20 04:00 97.9 65 27 123/82 (96) 99 10/11/20 03:59 71 10/11/20 03:53 Mechanical Ventilator 10/11/20 03:50 45 10/11/20 02:50 86 28 40 10/11/20 02:20 71 28 122/75 100 10/11/20 01:54 57 23 122/75 100 10/11/20 00:00 57 10/11/20 00:00 45 10/11/20 00:00 98.6 57 23 122/75 (91) 100 10/11/20 00:00 Mechanical Ventilator 10/10/20 23:34 82 31 40 10/10/20 20:00 98.1 69 27 98/64 (75) 97 10/10/20 20:00 Mechanical Ventilator 10/10/20 20:00 91 10/10/20 20:00 45 10/10/20 19:26 85 29 40 ROS: no change from my evaluation of 09/10/20. HEENT: Mechanically Ventilated, Thin Trach secretions RHYTHM: NSR, ST LUNGS: bilat. rhonchi and rales, trach site clean CARDIAC: normal rate, regular rhythm, normal S1 and S2 ABDOMEN: normal bowel sounds, soft, other - sacral decub EXTREMITIES: trace edema Microbiology Date/Time Source Procedure Growth Status 10/09/20 18:00 Sputum Gram Stain - Final Resulted 10/09/20 18:00 Sputum Culture - Preliminary Gram Negative Scotty Resulted Assessment/Plan Assessment/Plan Respiratory failure with hypoxia - s/p tracheostomy Sepsis Aspiration PNA Recurring shock - recovered Diarrhea Dehydration/hypernatremia corrected Acute myocardial ischemia Acute renal failure HC assoc PNA UTI Transaminitis, acute CVA/dementia Paroxysmal sinus bradycardia and tachycardia Acute/chronic diastolic CHF Severe protein/calorie malnutrition with dysphagia; now s/p PEG Hypokalemia Remains CRITICAL & GUARDED Vent support with trach care; wean down O2. Antimicrobials per ID. ?reculture for fever Replace lytes as needed. DVT prophyl Cardiac monitoring Diurese with oral maint dose of furosemide and aldactone now; trend BNP. Madi Rios MD Oct 11, 2020 17:13
[2020-10-11] MEDS: Docusate 100mg/10ml Liq NG SCH (17:19)
--- NOTE | 2020-10-11 19:15 | NUR ---
NURSE NOTES: Received report from ARTEMIO Syed. Patient asleep in bed, afebrile, responds to tactile stimulation and no respiratory distress noted.SR on 5 cardiac/vascular sonographer. trache to vent shiley 8, AC 12 TV 450, FiO2 45 % and PEEP 7 saturating at 98-99%.on jevity at 60cc/hr goal infusing well, no residual and sediment noted. With Right AC 20 G and left FA 20g IV lines intact, patent and asymptomatic. with FC to urine bag draining sky yellow urine Needs were attended. Bed rails are up,padded and wheels are locked. Continue to monitor the patient.
--- NOTE | 2020-10-11 19:19 | NUR ---
NURSE HAND-OFF REPORT: Important Events on Shift: Patient Status: Diet: Pending Orders: Pending Results/Labs: Pending MD notification: Latest Vital Signs: Temperature 97.9 , Pulse 76 , B/P 100 /68 , Respiratory Rate 30 , O2 SAT 100 , Mechanical Ventilator, O2 Flow Rate 45.0 . Vital Sign Comment: EKG Rhythm: Sinus Rhythm Rhythm change?: N MD Notified?: N -Dr. Gabriel linares MD Response: No New Orders Received Latest Schultz Fall Score: 70 Fall Risk: High Risk Safety Measures: Call light Within Reach, Bed Alarm Zone 2, Side Rails Side Rails x3, Bed position Low and Locked. Fall Precautions: Yellow Socks Door Sign Patient Fall Education Report given to . Pt is sleeping and stable, no stress noted, endorsed plan of care.
--- NOTE | 2020-10-11 19:20 | General Progress Note ---
Subjective Allergies: Coded Allergies: VANCOMYCIN (Verified Allergy, Severe, hive, 09/28/20) Subjective NAD calm tolerated TF Objective Last 24 Hour Vital Signs Date Time Temp Pulse Resp B/P (MAP) Pulse Ox O2 Delivery O2 Flow Rate FiO2 10/11/20 19:15 76 30 40 10/11/20 16:00 Mechanical Ventilator 10/11/20 16:00 45 10/11/20 16:00 97.9 79 27 100/68 (79) 100 10/11/20 15:27 75 10/11/20 15:25 80 27 40 10/11/20 14:15 73 23 100/68 99 10/11/20 13:45 83 22 120/74 99 10/11/20 12:00 Mechanical Ventilator 10/11/20 12:00 97.9 83 22 120/74 (89) 99 10/11/20 12:00 45 10/11/20 11:41 73 10/11/20 11:25 85 31 40 10/11/20 11:25 85 31 99 Mechanical Ventilator 40 10/11/20 08:14 68 10/11/20 08:00 45 10/11/20 08:00 97.9 77 31 118/76 (90) 98 10/11/20 07:56 Mechanical Ventilator 10/11/20 07:25 75 32 40 10/11/20 06:52 65 27 123/82 99 10/11/20 06:24 71 28 122/75 100 10/11/20 04:00 97.9 65 27 123/82 (96) 99 10/11/20 03:59 71 10/11/20 03:53 Mechanical Ventilator 10/11/20 03:50 45 10/11/20 02:50 86 28 40 10/11/20 02:20 71 28 122/75 100 10/11/20 01:54 57 23 122/75 100 10/11/20 00:00 57 10/11/20 00:00 45 10/11/20 00:00 98.6 57 23 122/75 (91) 100 10/11/20 00:00 Mechanical Ventilator 10/10/20 23:34 82 31 40 10/10/20 20:00 98.1 69 27 98/64 (75) 97 10/10/20 20:00 Mechanical Ventilator 10/10/20 20:00 91 12/23/20 20:00 45 10/10/20 19:26 85 29 40 Intake and Output 10/10/20 10/11/20 19:00 07:00 Intake Total 862.5 ml 930.0 ml Output Total 1800 ml 1050 ml Balance -937.5 ml -120.0 ml Free Water 60 ml 100 ml IV Total 82.5 ml 110.0 ml Tube Feeding 720 ml 720 ml Output Urine Total 1800 ml 1050 ml Height (Feet): 6 Height (Inches): 1.00 Weight (Pounds): 148 Objective Thin WM on vent/trach calm, awake Skin: no hematoma or ecchymosis HEENT NCAT supple, (+) trach coarse ronchi RR, slightly tachy abd soft flat ND, (+) GT no edema Assessment/Plan Status: stable Assessment/Plan: Assessment - resp failure - s/p PEG - anemia - OBS/Dementia - sepsis - diarrhea, C Diff (-) - Azotemia, resolved - CHF - malnutrition , low albumin - leukocytosis - hypernatremia Recommendations -Vent care / support - cards and pulm follow up - supportive care - abx - PPI - TF Deborah Cabrera MD Oct 11, 2020 19:20
[2020-10-11 20:00] VITALS: BP 110/71
[2020-10-11] MEDS: Valproic Acid 250mg/5ml Liquid GT SCH (20:07)
[2020-10-11] MEDS: Tamsulosin 0.4mg cap ORAL SCH (20:08)
--- NOTE | 2020-10-11 21:52 | Pulmonology Progress Note ---
Subjective ROS Limited/Unobtainable: Yes Constitutional: Denies: fever Gastrointestinal/Abdominal: Reports: diarrhea Allergies: Coded Allergies: VANCOMYCIN (Verified Allergy, Severe, hive, 09/28/20) All Systems: reviewed and negative except above Objective Last 24 Hour Vital Signs Date Time Temp Pulse Resp B/P (MAP) Pulse Ox O2 Delivery O2 Flow Rate FiO2 10/11/20 20:00 45 10/11/20 20:00 Mechanical Ventilator 10/11/20 20:00 98.1 76 27 110/71 (84) 98 10/11/20 19:15 76 30 40 10/11/20 16:00 Mechanical Ventilator 10/11/20 16:00 45 10/11/20 16:00 97.9 79 27 100/68 (79) 100 10/11/20 15:27 75 10/11/20 15:25 80 27 40 10/11/20 14:15 73 23 100/68 99 10/11/20 13:45 83 22 120/74 99 10/11/20 12:00 Mechanical Ventilator 10/11/20 12:00 97.9 83 22 120/74 (89) 99 10/11/20 12:00 45 10/11/20 11:41 73 10/11/20 11:25 85 31 40 10/11/20 11:25 85 31 99 Mechanical Ventilator 40 10/11/20 08:14 68 10/11/20 08:00 45 10/11/20 08:00 97.9 77 31 118/76 (90) 98 10/11/20 07:56 Mechanical Ventilator 10/11/20 07:25 75 32 40 10/11/20 06:52 65 27 123/82 99 10/11/20 06:24 71 28 122/75 100 10/11/20 04:00 97.9 65 27 123/82 (96) 99 10/11/20 03:59 71 10/11/20 03:53 Mechanical Ventilator 10/11/20 03:50 45 10/11/20 02:50 86 28 40 10/11/20 02:20 71 28 122/75 100 10/11/20 01:54 57 23 122/75 100 10/11/20 00:00 57 10/11/20 00:00 45 10/11/20 00:00 98.6 57 23 122/75 (91) 100 10/11/20 00:00 Mechanical Ventilator 10/10/20 23:34 82 31 40 Intake and Output 10/10/20 10/11/20 19:00 07:00 Intake Total 862.5 ml 930.0 ml Output Total 1800 ml 1050 ml Balance -937.5 ml -120.0 ml Free Water 60 ml 100 ml IV Total 82.5 ml 110.0 ml Tube Feeding 720 ml 720 ml Output Urine Total 1800 ml 1050 ml Microbiology Date/Time Source Procedure Growth Status 10/09/20 21:17 Urine,Clean Catch Urine Culture - Preliminary YEAST Resulted 10/09/20 18:00 Sputum Gram Stain - Final Resulted 10/09/20 18:00 Sputum Culture - Preliminary Gram Negative Scotty Resulted Current Medications Medications (Trade) Dose Ordered Sig/Aleksander Route PRN Reason Start Time Stop Time Status Last Admin Dose Admin Acetaminophen (Tylenol) 650 mg Q6H PRN NG pain 1-6 10/08/20 15:30 11/07/20 15:14 Ascorbic Acid (Vitamin C) 250 mg DAILY NG 09/26/20 09:00 10/18/20 08:59 10/11/20 08:31 Bisacodyl (Dulcolax) 10 mg DAILYPRN PRN RECTAL Constipation 10/11/20 12:00 01/09/21 11:59 Diphenhydramine HCl (Benadryl) 25 mg Q6H PRN IVP Itching 09/27/20 12:15 10/27/20 12:14 10/10/20 22:15 Diphenoxylate HCl/ Atropine (Lomotil) 2.5 mg Q4H PRN ORAL Diarrhea 09/20/20 08:15 10/20/20 08:14 Docusate Sodium (Colace) 100 mg TWICE A DAY NG 10/11/20 18:00 11/10/20 17:59 10/11/20 17:19 Famotidine (Pepcid) 20 mg BID GT 10/04/20 09:00 01/02/21 08:59 10/11/20 17:19 Finasteride (Proscar) 5 mg DAILY ORAL 09/13/20 09:00 12/12/20 08:59 10/11/20 08:31 Furosemide (Lasix) 40 mg DAILY GT 10/11/20 09:00 11/10/20 08:59 10/11/20 08:32 Hydromorphone HCl (Dilaudid) 0.5 mg Q4H PRN IVP SEVERE PAIN 10/08/20 15:18 10/15/20 15:17 Lorazepam (Ativan) 1 mg Q4H PRN GT For Anxiety 10/07/20 22:00 10/14/20 21:59 10/11/20 13:45 Multivitamins (Multivitamins W/ Minerals 15ml Liquid) 15 ml DAILY NG 09/26/20 09:00 10/26/20 08:59 10/11/20 08:32 Piperacillin Sod/ Tazobactam Sod 3.375 gm/Sodium Chloride 110 ml @ 27.5 mls/hr EVERY 8 HOURS IVPB 10/09/20 11:00 10/14/20 10:59 10/11/20 13:45 Spironolactone (Aldactone) 25 mg DAILY GT 10/05/20 09:00 11/04/20 08:59 10/11/20 08:31 Tamsulosin HCl (Flomax) 0.4 mg BEDTIME ORAL 10/11/20 21:00 11/10/20 20:59 10/11/20 20:08 Valproic Acid (Depakene) 1,000 mg BEDTIME GT 10/06/20 21:00 10/31/20 20:59 10/11/20 20:07 Zinc Sulfate (Zinc Sulfate) 220 mg DAILY GT 10/06/20 09:00 01/04/21 08:59 10/11/20 08:31 Assessment/Plan Assessment/Plan Pulmonary Progress Note Subjective Allergies: Coded Allergies: No Known Allergies (Unverified , 09/10/20) Subjective remains confused stable oxygen requirements Persistant infiltrates AB per ID TF to SNF once stable CXR improving infiltrates Objective Vital Signs noted Height (Feet): 5 Height (Inches): 7.00 Weight (Pounds): 121 Objective WDWN NAD reduced breath sounds bilaterally without rhonchi or wheeze [id number] without MRG NABS nontender no HSM no CCE nonfocal remains confused Assessment/Plan Assessment/Plan: IMPRESSION: 1. Acute renal failure. 2. Hypernatremia improving 3. Leukocytosis. 4. Pneumonia/ sepsis. 5. Hypotension. 6. Dementia. 7. Acute on chronic encephalopathy. 8. bcx staph Epi 9. MRSA colonized PLAN continue current ventilator settings taper fio2 ID noted; monitor follow up on antibiotics monitor oxygen needs off load as able monitor lytes position change monitor imaging d/w consultants and nursing remains critical trach care dc plan to subacute impression, plan, and exam edited and reviewed in detail care discussed with RN Madi Elliott MD Oct 11, 2020 21:51
[2020-10-12] VITALS: BP 122/88
--- NOTE | 2020-10-12 01:00 | NUR ---
NURSE NOTES: Pt was given partial bed bath and gown changed. PT tolerated well, no respiratory distress noted. Saturating at 99-100% on vent settings Continue to monitor
[2020-10-12 04:00] VITALS: BP 121/81
[2020-10-12] MEDS: Piperacillin/Tazobactam 3.375 GM in NS 110 ML IVPB SCH ×3 (05:18→21:00)
[2020-10-12 06:02] LABS: BASOPHILS % (AUTO) 0.7 % (0.0-2.0); EOSINOPHILS % (AUTO) 1.3 % (0.0-3.0); HEMATOCRIT 25.6 % (42.0-52.0); HEMOGLOBIN 8.4 G/DL (14.2-18.0); LYMPHOCYTES % (AUTO) 33.3 % (20.0-45.0); MEAN CORPUSCULAR VOLUME 88 FL (80-99); MONOCYTES % (AUTO) 7.5 % (1.0-10.0); NEUTROPHILS % (AUTO) 57.1 % (45.0-75.0); PLATELET COUNT 150 K/UL (150-450); RED BLOOD COUNT 2.92 M/UL (4.70-6.10); RED CELL DISTRIBUTION WIDTH 14.3 % (11.6-14.8); WHITE BLOOD COUNT 8.3 K/UL (4.8-10.8)
--- NOTE | 2020-10-12 07:10 | NUR ---
NURSE HAND-OFF REPORT: Important Events on Shift: none Patient Status:stable Diet: jev 1.2 Pending Orders: n Pending Results/Labs:n Pending MD notification:[n Latest Vital Signs: Temperature 97.9 , Pulse 69 , B/P 121 /81 , Respiratory Rate 28 , O2 SAT 98 , Mechanical Ventilator, O2 Flow Rate 45.0 . Vital Sign Comment: n EKG Rhythm: Sinus Rhythm Rhythm change?: N MD Notified?: N -Dr. Gabriel linares MD Response: No New Orders Received Latest Schultz Fall Score: 70 Fall Risk: High Risk Safety Measures: Call light Within Reach, Bed Alarm Zone 2, Side Rails Side Rails x3, Bed position Low and Locked. Fall Precautions: Yellow Socks Door Sign Patient Fall Education Report given to ARTEMIO Hemphill.
[2020-10-12 07:25] LABS: ANION GAP 2 mmol/L (5-15); BLOOD UREA NITROGEN 27 mg/dL (7-18); CALCIUM 7.3 MG/DL (8.5-10.1); CARBON DIOXIDE 31 MMOL/L (21-32); CHLORIDE 105 MMOL/L (98-107); CREATININE 1.1 MG/DL (0.55-1.30); POTASSIUM 3.9 MMOL/L (3.5-5.1); SODIUM 138 MMOL/L (136-145)
--- NOTE | 2020-10-12 07:34 | NUR ---
NURSE NOTES:handoff received from ARTEMIO JONES. Patient received awake, eyes opening spontaneously but patient does not follow commands, patient is in mittens as he pulls at lines and andrade. Patient has trach to vent with settings: S8, AC 12, TV 450, FI02 45% and PEEP of 7 tolerating well with 100% oxygen saturation. No acute signs of distress noted. patient has Andrade patent and draining to gravity, cardiac montiro is on, Patient also has G tube running Jevity 1.2@60ML/HR. Patient placed on contact isolation, fall, seizure and aspiration precautions with side rails padded, call light is on the bed, next to patient. L FA Mackenzie clean dry and intact running prescribed antibiotic, R AC IV is saline locked. Sacral issue noted, optifoam is clean dry and intact, will follow plan of care.
[2020-10-12 08:00] VITALS: BP 117/77
[2020-10-12] MEDS: Zinc Sulfate 220mg GT SCH (08:51)
[2020-10-12] MEDS: Furosemide 40mg tab GT SCH (08:51)
[2020-10-12] MEDS: Docusate 100mg/10ml Liq NG SCH ×2 (08:51→17:35)
[2020-10-12] MEDS: Spironolactone 25mg tab GT SCH (08:51)
[2020-10-12] MEDS: Multivitamins W/Minerals 15 ML UDC NG SCH (08:51)
[2020-10-12] MEDS: Ascorbic Acid 500mg tab NG SCH (08:52)
--- NOTE | 2020-10-12 11:25 | Surgery Progress Note ---
Surgery Progress Note Subjective Procedure Performed tracheostomy Additional Comments no acute events Objective Last 24 Hour Vital Signs Date Time Temp Pulse Resp B/P (MAP) Pulse Ox O2 Delivery O2 Flow Rate FiO2 10/12/20 08:00 79 10/12/20 08:00 97.7 73 14 117/77 (90) 100 10/12/20 08:00 45 10/12/20 08:00 Mechanical Ventilator 10/12/20 07:18 69 28 40 10/12/20 04:00 Mechanical Ventilator 10/12/20 04:00 45 10/12/20 04:00 97.9 64 27 121/81 (94) 98 10/12/20 03:50 79 10/12/20 02:51 83 29 40 10/12/20 00:00 98.2 90 27 122/88 (99) 98 10/12/20 00:00 Mechanical Ventilator 10/11/20 23:50 87 10/11/20 23:01 86 30 40 10/11/20 20:00 45 10/11/20 20:00 Mechanical Ventilator 10/11/20 20:00 98.1 76 27 110/71 (84) 98 10/11/20 19:33 74 10/11/20 19:15 76 30 40 10/11/20 16:00 Mechanical Ventilator 10/11/20 16:00 45 10/11/20 16:00 97.9 79 27 100/68 (79) 100 10/11/20 15:27 75 10/11/20 15:25 80 27 40 10/11/20 14:15 73 23 100/68 99 10/11/20 13:45 83 22 120/74 99 10/11/20 12:00 Mechanical Ventilator 10/11/20 12:00 97.9 83 22 120/74 (89) 99 10/11/20 12:00 45 10/11/20 11:41 73 I&O Intake and Output 10/11/20 10/12/20 19:00 07:00 Intake Total 917.5 ml 917.5 ml Output Total 1650 ml 1200 ml Balance -732.5 ml -282.5 ml Free Water 120 ml 60 ml IV Total 137.5 ml 137.5 ml Tube Feeding 660 ml 720 ml Output Urine Total 1650 ml 1200 ml # Bowel Movements 1 Dressing: saturated Cardiovascular: RSR Respiratory: decreased breath sounds Abdomen: soft, flat, non-tender, present bowel sounds Extremities: no edema, no tenderness, no cyanosis Laboratory Tests Test 10/12/20 02:45 White Blood Count 8.3 K/UL (4.8-10.8) Red Blood Count 2.92 M/UL (4.70-6.10) L Hemoglobin 8.4 G/DL (14.2-18.0) L Hematocrit 25.6 % (42.0-52.0) L Mean Corpuscular Volume 88 FL (80-99) Mean Corpuscular Hemoglobin 28.6 PG (27.0-31.0) Mean Corpuscular Hemoglobin Concent 32.7 G/DL (32.0-36.0) Red Cell Distribution Width 14.3 % (11.6-14.8) Platelet Count 150 K/UL (150-450) Mean Platelet Volume 7.2 FL (6.5-10.1) Neutrophils (%) (Auto) 57.1 % (45.0-75.0) Lymphocytes (%) (Auto) 33.3 % (20.0-45.0) Monocytes (%) (Auto) 7.5 % (1.0-10.0) Eosinophils (%) (Auto) 1.3 % (0.0-3.0) Basophils (%) (Auto) 0.7 % (0.0-2.0) Sodium Level 138 MMOL/L (136-145) Potassium Level 3.9 MMOL/L (3.5-5.1) Chloride Level 105 MMOL/L (98-107) Carbon Dioxide Level 31 MMOL/L (21-32) Anion Gap 2 mmol/L (5-15) L Blood Urea Nitrogen 27 mg/dL (7-18) H Creatinine 1.1 MG/DL (0.55-1.30) Estimat Glomerular Filtration Rate > 60 mL/min (>60) Glucose Level 75 MG/DL (74-106) Calcium Level 7.3 MG/DL (8.5-10.1) L Magnesium Level 2.3 MG/DL (1.8-2.4) Pro-B-Type Natriuretic Peptide 377 pg/mL (0-125) H Plan Problems: (1) Fever Assessment & Plan: maybe developing pneumonia cont abx pulm input thank you (2) Decubitus skin ulcer Assessment & Plan: Patient identified on admission to have multiple scabs on the left arm. mild open scabs with eschar. no drainage. no significant cellulitis. bruising no bilateral extremities noted. no signs of abuse. likely from agitation Sacral coccygeal noted to have a DTI 4.3X2.5CM. which is dark purple . RECOMMEND-CLEAN WITH SALINE, PAT DRY AND APPLY CALAZINE. COVER WITH OPTIFOAM DRESSING. REPLACE EVERY 3 DAYS OR NEEDED LEFT ISCHIUM- STAGE I PRESSURE ULCER MEASURES 4.5X1.7CM. NON-BLANCHABLE ERYTHEMA. RECOMMEND- APPLY CALAZINE AND COVER WITH OPTIFOAM DRESSING. REPLACE EVERY 7 DAYS. Turn q2h off load pressure with pillow off load heels nutritional optimization [employer] eval will follow with recs thank you (3) Malnutrition Assessment & Plan: Mr. Roman is a 70 year old male BIBA to ED of [facility] on 09/10/2020 around 14:00 due to fever. He was found to be hypotensive 91/55 (67), Temp: 100.0, leukocytosis 20.8k and subsequently transferred to ICU for septic shock. The blood culture is reportedly positive for gram positive cocci. NG tube was placed, KUB confirmed the placement to day. Pt is clinically stable with leukocytosis 20.1, improved BUN and creatine, stable hemodynamic without vasopressor. Findings: Mr. Roman is disoriented. He does ot follow commands at this time. Oral cavity is noted to be dried blood concretion likely from NG trauma. No active bleeding site is seen. Due to his level f alertness, already NG tube is in placed, PO trial was not done at this time. Transferred out ICU last night. He is non on tele. Issues: multiple wounds, s.p balaji/nasal/pharyngeal bleeding with blood culture Gram positive cocci leukocytosis trending down from 20k-20k-16k BUN/Creatine trending down from 93/1.9-79/1.3-54/1.1 Temp: 98.1~98.7, Pulse: 62~72, BP: 105/67~120/48, SPO2 98~100% on 2 liter S: Oral cavity is better condition comparison to yesterday. The mucosa is severely erythema without active bleeding. Limited level of alertness for direct therapy. NG in placed O: 1. Laryngeal palpation to trigger spontaneous cough and swallow: Pt triggered cough with laryngeal palpation. Approximately 5~10 seconds after coughing, he triggered swallow. based on this observation, he presents with copious secretion in pharynx and larynx. He continued to have poor secretion management at laryngeal level at this time. NO PO trial was given due to poor secretion at the level of air way with low level of alertness. A: 1. Probable aspiration of his own secretion with poor ability to cough and swallow 2. Dysphagia P: 1. NPO for now 2. Observe his secretion, and level of alertness for PO readiness. DAILY ESTIMATED NEEDS: Needs based on Wound, underweight/ 55kg 30-35 kcals/kg 7256-6367 total kcals 1.25-2 g protein/kg 69-110 g total protein 25-30 mL/kg 9026-4678 total fluid mLs NUTRITION DIAGNOSIS: Increased kcal/prot needs R/T wound healing and underweight status as evidenced by pt admitted w/ wounds including DTI 2 coccyx and stage 1 @ lt ischium, pt @ 73% IBW w/ low BMI per guidelines, s/p NGT insertion, on NGT feeds. CURRENT TF:Jevity 1.2 @ 50ml/hr x 24 hrs ENTERAL NUTRITION RECOMMENDATIONS: Jevity 1.2 @ 60ml/hr x 24 hrs to provide 1440ml, 1728kcal, 80g prot, 1160ml free water * As medically appropriate, increase goal rate to 60ml/hr x 24 hrs to meet 100% est kcal/prot needs * HOB over 30 degrees/ without IVF, H2O flush of 100ml q 8hrs ADDITIONAL RECOMMENDATIONS: * Calibrated daily bedscale wt Per SNF: HT=70" * Wound healing: TF rec @ goal will provide 100% RDI add Vit C 250mg QD, ZnSO4 220mg QD x 10days, Davidson BID via NGT * Monitor BGs, need for NISS w/ TF * Monitor lytes, replete as needed- high risk for refeeding syndrome -> check f/up phos and mag (4) Severe sepsis Assessment & Plan: will likely need trach and peg. patient needs protected airway and nutrition full code no family and unable to consent medically necessary. will plan soon (5) Open upper arm wound (6) Hematuria Assessment & Plan: as per urology Aubrey Gutierrez Oct 12, 2020 11:25
[2020-10-12 12:00] VITALS: BP 117/78
--- NOTE | 2020-10-12 15:16 | Infectious Diseases Prog Note ---
Assessment/Plan Assessment/Plan A 1. Pneumonia with Klebsiella 2. Dementia. 3. Leukocytosis 4. Urinary tract infection treated 5. 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 BPH 8. New fever P 1. Will f/u Sputum culture 2. Continue Zosyn Subjective ROS Limited/Unobtainable: Yes Neurologic: Reports: confusion, other - restraint by mitten Allergies: Coded Allergies: VANCOMYCIN (Verified Allergy, Severe, hive, 09/28/20) Objective Last 24 Hour Vital Signs Date Time Temp Pulse Resp B/P (MAP) Pulse Ox O2 Delivery O2 Flow Rate FiO2 10/12/20 12:00 Mechanical Ventilator 10/12/20 12:00 92 10/12/20 12:00 45 10/12/20 12:00 97.7 72 24 117/78 (91) 100 10/12/20 08:00 79 10/12/20 08:00 97.7 73 14 117/77 (90) 100 10/12/20 08:00 45 10/12/20 08:00 Mechanical Ventilator 10/12/20 07:18 69 28 40 10/12/20 04:00 Mechanical Ventilator 10/12/20 04:00 45 10/12/20 04:00 97.9 64 27 121/81 (94) 98 10/12/20 03:50 79 10/12/20 02:51 83 29 40 10/12/20 00:00 98.2 90 27 122/88 (99) 98 10/12/20 00:00 Mechanical Ventilator 10/11/20 23:50 87 10/11/20 23:01 86 30 40 10/11/20 20:00 45 10/11/20 20:00 Mechanical Ventilator 10/11/20 20:00 98.1 76 27 110/71 (84) 98 10/11/20 19:33 74 10/11/20 19:15 76 30 40 10/11/20 16:00 Mechanical Ventilator 10/11/20 16:00 45 10/11/20 16:00 97.9 79 27 100/68 (79) 100 10/11/20 15:27 75 10/11/20 15:25 80 27 40 Height (Feet): 6 Height (Inches): 1.00 Weight (Pounds): 148 HEENT: mucous membranes moist, status post trach Respiratory/Chest: decreased breath sounds, other - on ventilator Cardiovascular: normal rate Abdomen: soft, non tender, other - GT feeding Extremities: no edema Neurologic/Psychiatric: disoriented Microbiology Date/Time Source Procedure Growth Status 10/09/20 21:17 Urine,Clean Catch Urine Culture - Preliminary YEAST Resulted 10/09/20 18:00 Sputum Gram Stain - Final Complete 10/09/20 18:00 Sputum Culture - Final Klebsiella Pneumoniae Usual Respiratory Louisa Complete Laboratory Tests Test 10/12/20 02:45 White Blood Count 8.3 K/UL (4.8-10.8) Red Blood Count 2.92 M/UL (4.70-6.10) L Hemoglobin 8.4 G/DL (14.2-18.0) L Hematocrit 25.6 % (42.0-52.0) L Mean Corpuscular Volume 88 FL (80-99) Mean Corpuscular Hemoglobin 28.6 PG (27.0-31.0) Mean Corpuscular Hemoglobin Concent 32.7 G/DL (32.0-36.0) Red Cell Distribution Width 14.3 % (11.6-14.8) Platelet Count 150 K/UL (150-450) Mean Platelet Volume 7.2 FL (6.5-10.1) Neutrophils (%) (Auto) 57.1 % (45.0-75.0) Lymphocytes (%) (Auto) 33.3 % (20.0-45.0) Monocytes (%) (Auto) 7.5 % (1.0-10.0) Eosinophils (%) (Auto) 1.3 % (0.0-3.0) Basophils (%) (Auto) 0.7 % (0.0-2.0) Sodium Level 138 MMOL/L (136-145) Potassium Level 3.9 MMOL/L (3.5-5.1) Chloride Level 105 MMOL/L (98-107) Carbon Dioxide Level 31 MMOL/L (21-32) Anion Gap 2 mmol/L (5-15) L Blood Urea Nitrogen 27 mg/dL (7-18) H Creatinine 1.1 MG/DL (0.55-1.30) Estimat Glomerular Filtration Rate > 60 mL/min (>60) Glucose Level 75 MG/DL (74-106) Calcium Level 7.3 MG/DL (8.5-10.1) L Magnesium Level 2.3 MG/DL (1.8-2.4) Pro-B-Type Natriuretic Peptide 377 pg/mL (0-125) H Current Medications Medications (Trade) Dose Ordered Sig/Aleksander Route PRN Reason Start Time Stop Time Status Last Admin Dose Admin Acetaminophen (Tylenol) 650 mg Q6H PRN NG pain 1-6 10/08/20 15:30 11/07/20 15:14 Ascorbic Acid (Vitamin C) 250 mg DAILY NG 09/26/20 09:00 10/18/20 08:59 10/12/20 08:52 Bisacodyl (Dulcolax) 10 mg DAILYPRN PRN RECTAL Constipation 10/11/20 12:00 01/09/21 11:59 Diphenhydramine HCl (Benadryl) 25 mg Q6H PRN IVP Itching 09/27/20 12:15 10/27/20 12:14 10/10/20 22:15 Diphenoxylate HCl/ Atropine (Lomotil) 2.5 mg Q4H PRN ORAL Diarrhea 09/20/20 08:15 10/20/20 08:14 Docusate Sodium (Colace) 100 mg TWICE A DAY NG 10/11/20 18:00 11/10/20 17:59 10/12/20 08:51 Famotidine (Pepcid) 20 mg BID GT 10/04/20 09:00 01/02/21 08:59 10/12/20 08:52 Finasteride (Proscar) 5 mg DAILY ORAL 09/13/20 09:00 12/12/20 08:59 10/12/20 08:52 Furosemide (Lasix) 40 mg DAILY GT 10/11/20 09:00 11/10/20 08:59 10/12/20 08:51 Hydromorphone HCl (Dilaudid) 0.5 mg Q4H PRN IVP SEVERE PAIN 10/08/20 15:18 10/15/20 15:17 Lorazepam (Ativan) 1 mg Q4H PRN GT For Anxiety 10/07/20 22:00 10/14/20 21:59 10/11/20 13:45 Multivitamins (Multivitamins W/ Minerals 15ml Liquid) 15 ml DAILY NG 09/26/20 09:00 10/26/20 08:59 10/12/20 08:51 Piperacillin Sod/ Tazobactam Sod 3.375 gm/Sodium Chloride 110 ml @ 27.5 mls/hr EVERY 8 HOURS IVPB 10/09/20 11:00 10/14/20 10:59 10/12/20 14:28 Spironolactone (Aldactone) 25 mg DAILY GT 10/05/20 09:00 11/04/20 08:59 10/12/20 08:51 Tamsulosin HCl (Flomax) 0.4 mg BEDTIME ORAL 10/11/20 21:00 11/10/20 20:59 10/11/20 20:08 Valproic Acid (Depakene) 1,000 mg BEDTIME GT 10/06/20 21:00 10/31/20 20:59 10/11/20 20:07 Zinc Sulfate (Zinc Sulfate) 220 mg DAILY GT 10/06/20 09:00 01/04/21 08:59 10/12/20 08:51 Bradley Gil MD Oct 12, 2020 15:16
[2020-10-12 16:00] VITALS: BP 127/83
--- NOTE | 2020-10-12 16:16 | Pulmonology Progress Note ---
Subjective ROS Limited/Unobtainable: Yes Constitutional: Denies: fever Gastrointestinal/Abdominal: Reports: diarrhea Allergies: Coded Allergies: VANCOMYCIN (Verified Allergy, Severe, hive, 09/28/20) All Systems: reviewed and negative except above Objective Last 24 Hour Vital Signs Date Time Temp Pulse Resp B/P (MAP) Pulse Ox O2 Delivery O2 Flow Rate FiO2 10/12/20 16:00 83 10/12/20 15:55 45 10/12/20 15:54 Mechanical Ventilator 10/12/20 15:25 83 26 40 10/12/20 12:00 Mechanical Ventilator 10/12/20 12:00 92 10/12/20 12:00 45 10/12/20 12:00 97.7 72 24 117/78 (91) 100 10/12/20 10:30 84 31 40 10/12/20 08:00 79 10/12/20 08:00 97.7 73 14 117/77 (90) 100 10/12/20 08:00 45 10/12/20 08:00 Mechanical Ventilator 10/12/20 07:18 69 28 40 10/12/20 04:00 Mechanical Ventilator 10/12/20 04:00 45 10/12/20 04:00 97.9 64 27 121/81 (94) 98 10/12/20 03:50 79 10/12/20 02:51 83 29 40 10/12/20 00:00 98.2 90 27 122/88 (99) 98 10/12/20 00:00 Mechanical Ventilator 10/11/20 23:50 87 10/11/20 23:01 86 30 40 10/11/20 20:00 45 10/11/20 20:00 Mechanical Ventilator 10/11/20 20:00 98.1 76 27 110/71 (84) 98 10/11/20 19:33 74 10/11/20 19:15 76 30 40 Intake and Output 10/11/20 10/12/20 19:00 07:00 Intake Total 917.5 ml 917.5 ml Output Total 1650 ml 1200 ml Balance -732.5 ml -282.5 ml Free Water 120 ml 60 ml IV Total 137.5 ml 137.5 ml Tube Feeding 660 ml 720 ml Output Urine Total 1650 ml 1200 ml # Bowel Movements 1 Microbiology Date/Time Source Procedure Growth Status 10/09/20 21:17 Urine,Clean Catch Urine Culture - Preliminary YEAST Resulted 10/09/20 18:00 Sputum Gram Stain - Final Complete 10/09/20 18:00 Sputum Culture - Final Klebsiella Pneumoniae Usual Respiratory Louisa Complete Laboratory Tests 10/12/20 02:45: White Blood Count 8.3, Red Blood Count 2.92L, Hemoglobin 8.4L, Hematocrit 25.6L, Mean Corpuscular Volume 88, Mean Corpuscular Hemoglobin 28.6, Mean Corpuscular Hemoglobin Concent 32.7, Red Cell Distribution Width 14.3, Platelet Count 150, Mean Platelet Volume 7.2, Neutrophils (%) (Auto) 57.1, Lymphocytes (%) (Auto) 33.3, Monocytes (%) (Auto) 7.5, Eosinophils (%) (Auto) 1.3, Basophils (%) (Auto) 0.7, Sodium Level 138, Potassium Level 3.9, Chloride Level 105, Carbon Dioxide Level 31, Anion Gap 2L, Blood Urea Nitrogen 27H, Creatinine 1.1, Estimat Glomerular Filtration Rate > 60, Glucose Level 75, Calcium Level 7.3L, Magnesium Level 2.3, Pro-B-Type Natriuretic Peptide 377H Current Medications Medications (Trade) Dose Ordered Sig/Aleksander Route PRN Reason Start Time Stop Time Status Last Admin Dose Admin Acetaminophen (Tylenol) 650 mg Q6H PRN NG pain 1-6 10/08/20 15:30 11/07/20 15:14 Ascorbic Acid (Vitamin C) 250 mg DAILY NG 09/26/20 09:00 10/18/20 08:59 10/12/20 08:52 Bisacodyl (Dulcolax) 10 mg DAILYPRN PRN RECTAL Constipation 10/11/20 12:00 01/09/21 11:59 Diphenhydramine HCl (Benadryl) 25 mg Q6H PRN IVP Itching 09/27/20 12:15 10/27/20 12:14 10/10/20 22:15 Diphenoxylate HCl/ Atropine (Lomotil) 2.5 mg Q4H PRN ORAL Diarrhea 09/20/20 08:15 10/20/20 08:14 Docusate Sodium (Colace) 100 mg TWICE A DAY NG 10/11/20 18:00 11/10/20 17:59 10/12/20 08:51 Famotidine (Pepcid) 20 mg BID GT 10/04/20 09:00 01/02/21 08:59 10/12/20 08:52 Finasteride (Proscar) 5 mg DAILY ORAL 09/13/20 09:00 12/12/20 08:59 10/12/20 08:52 Furosemide (Lasix) 40 mg DAILY GT 10/11/20 09:00 11/10/20 08:59 10/12/20 08:51 Hydromorphone HCl (Dilaudid) 0.5 mg Q4H PRN IVP SEVERE PAIN 10/08/20 15:18 10/15/20 15:17 Lorazepam (Ativan) 1 mg Q4H PRN GT For Anxiety 10/07/20 22:00 10/14/20 21:59 10/11/20 13:45 Multivitamins (Multivitamins W/ Minerals 15ml Liquid) 15 ml DAILY NG 09/26/20 09:00 10/26/20 08:59 10/12/20 08:51 Piperacillin Sod/ Tazobactam Sod 3.375 gm/Sodium Chloride 110 ml @ 27.5 mls/hr EVERY 8 HOURS IVPB 10/09/20 11:00 10/14/20 10:59 10/12/20 14:28 Spironolactone (Aldactone) 25 mg DAILY GT 10/05/20 09:00 11/04/20 08:59 10/12/20 08:51 Tamsulosin HCl (Flomax) 0.4 mg BEDTIME ORAL 10/11/20 21:00 11/10/20 20:59 10/11/20 20:08 Valproic Acid (Depakene) 1,000 mg BEDTIME GT 10/06/20 21:00 10/31/20 20:59 10/11/20 20:07 Zinc Sulfate (Zinc Sulfate) 220 mg DAILY GT 10/06/20 09:00 01/04/21 08:59 10/12/20 08:51 Assessment/Plan Assessment/Plan Pulmonary Progress Note Subjective Allergies: Coded Allergies: No Known Allergies (Unverified , 09/10/20) Subjective remains confused stable oxygen requirements Persistant infiltrates AB per ID TF to SNF once stable CXR improving infiltrates Objective Vital Signs noted Height (Feet): 5 Height (Inches): 7.00 Weight (Pounds): 121 Objective WDWN NAD reduced breath sounds bilaterally without rhonchi or wheeze [id number] without MRG NABS nontender no HSM no CCE nonfocal remains confused Assessment/Plan Assessment/Plan: IMPRESSION: 1. Acute renal failure. 2. Hypernatremia improving 3. Leukocytosis. 4. Pneumonia/ sepsis. 5. Hypotension. 6. Dementia. 7. Acute on chronic encephalopathy. 8. bcx staph Epi 9. MRSA colonized PLAN continue current ventilator settings taper fio2 ID noted; monitor follow up on antibiotics monitor oxygen needs off load as able monitor lytes position change monitor imaging d/w consultants and nursing remains critical trach care dc plan to subacute impression, plan, and exam edited and reviewed in detail care discussed with Madi Richrad MD Oct 12, 2020 16:15
--- NOTE | 2020-10-12 16:30 | Urology Progress Note ---
Assessment/Plan Status: stable Assessment/Plan: 1. Gross hematuria. 2. Pyuria and possible UTI. 3. Proteinuria. 4. BPH. 5. Urinary retention. 6. Probable neurogenic bladder. 7. Possible sepsis. monitor clinically maintain andrade, secured to pt's leg hand irrigated and do PRN restarted on abx flomax and proscar cysto electively voiding trial at some point? or change andrade f/u on urine cx Subjective Allergies: Coded Allergies: VANCOMYCIN (Verified Allergy, Severe, hive, 09/28/20) Subjective remains on vent, trach 09/27 Objective Last 24 Hour Vital Signs Date Time Temp Pulse Resp B/P (MAP) Pulse Ox O2 Delivery O2 Flow Rate FiO2 10/12/20 16:00 98.1 88 24 127/83 (98) 100 10/12/20 16:00 83 10/12/20 15:55 45 10/12/20 15:54 Mechanical Ventilator 10/12/20 15:25 83 26 40 10/12/20 12:00 Mechanical Ventilator 10/12/20 12:00 92 10/12/20 12:00 45 10/12/20 12:00 97.7 72 24 117/78 (91) 100 10/12/20 10:30 84 31 40 10/12/20 08:00 79 10/12/20 08:00 97.7 73 14 117/77 (90) 100 10/12/20 08:00 45 10/12/20 08:00 Mechanical Ventilator 10/12/20 07:18 69 28 40 10/12/20 04:00 Mechanical Ventilator 10/12/20 04:00 45 10/12/20 04:00 97.9 64 27 121/81 (94) 98 10/12/20 03:50 79 10/12/20 02:51 83 29 40 10/12/20 00:00 98.2 90 27 122/88 (99) 98 10/12/20 00:00 Mechanical Ventilator 10/11/20 23:50 87 10/11/20 23:01 86 30 40 10/11/20 20:00 45 10/11/20 20:00 Mechanical Ventilator 10/11/20 20:00 98.1 76 27 110/71 (84) 98 10/11/20 19:33 74 10/11/20 19:15 76 30 40 Intake and Output 10/11/20 10/12/20 19:00 07:00 Intake Total 917.5 ml 917.5 ml Output Total 1650 ml 1200 ml Balance -732.5 ml -282.5 ml Free Water 120 ml 60 ml IV Total 137.5 ml 137.5 ml Tube Feeding 660 ml 720 ml Output Urine Total 1650 ml 1200 ml # Bowel Movements 1 Microbiology Date/Time Source Procedure Growth Status 10/09/20 21:17 Urine,Clean Catch Urine Culture - Preliminary YEAST Resulted 10/09/20 18:00 Sputum Gram Stain - Final Complete 10/09/20 18:00 Sputum Culture - Final Klebsiella Pneumoniae Usual Respiratory Louisa Complete 09/18/20 18:30 Stool Clostridium difficile Toxin Assay - Final Complete 09/17/20 12:58 Blood Blood Culture - Final NO GROWTH AFTER 5 DAYS Complete 09/10/20 17:15 Rectum VRE Culture - Final Enterococcus Faecalis - Vre Complete Current Medications Medications (Trade) Dose Ordered Sig/Aleksander Route PRN Reason Start Time Stop Time Status Last Admin Dose Admin Acetaminophen (Tylenol) 650 mg Q6H PRN NG pain 1-6 10/08/20 15:30 11/07/20 15:14 Ascorbic Acid (Vitamin C) 250 mg DAILY NG 09/26/20 09:00 10/18/20 08:59 10/12/20 08:52 Bisacodyl (Dulcolax) 10 mg DAILYPRN PRN RECTAL Constipation 10/11/20 12:00 01/09/21 11:59 Diphenhydramine HCl (Benadryl) 25 mg Q6H PRN IVP Itching 09/27/20 12:15 10/27/20 12:14 10/10/20 22:15 Diphenoxylate HCl/ Atropine (Lomotil) 2.5 mg Q4H PRN ORAL Diarrhea 09/20/20 08:15 10/20/20 08:14 Docusate Sodium (Colace) 100 mg TWICE A DAY NG 10/11/20 18:00 11/10/20 17:59 10/12/20 08:51 Famotidine (Pepcid) 20 mg BID GT 10/04/20 09:00 01/02/21 08:59 10/12/20 08:52 Finasteride (Proscar) 5 mg DAILY ORAL 09/13/20 09:00 12/12/20 08:59 10/12/20 08:52 Furosemide (Lasix) 40 mg DAILY GT 10/11/20 09:00 11/10/20 08:59 10/12/20 08:51 Hydromorphone HCl (Dilaudid) 0.5 mg Q4H PRN IVP SEVERE PAIN 10/08/20 15:18 10/15/20 15:17 Lorazepam (Ativan) 1 mg Q4H PRN GT For Anxiety 10/07/20 22:00 10/14/20 21:59 10/11/20 13:45 Multivitamins (Multivitamins W/ Minerals 15ml Liquid) 15 ml DAILY NG 09/26/20 09:00 10/26/20 08:59 10/12/20 08:51 Piperacillin Sod/ Tazobactam Sod 3.375 gm/Sodium Chloride 110 ml @ 27.5 mls/hr EVERY 8 HOURS IVPB 10/09/20 11:00 10/14/20 10:59 10/12/20 14:28 Spironolactone (Aldactone) 25 mg DAILY GT 10/05/20 09:00 11/04/20 08:59 10/12/20 08:51 Tamsulosin HCl (Flomax) 0.4 mg BEDTIME ORAL 10/11/20 21:00 11/10/20 20:59 10/11/20 20:08 Valproic Acid (Depakene) 1,000 mg BEDTIME GT 10/06/20 21:00 10/31/20 20:59 10/11/20 20:07 Zinc Sulfate (Zinc Sulfate) 220 mg DAILY GT 10/06/20 09:00 01/04/21 08:59 10/12/20 08:51 Laboratory Tests 10/12/20 02:45: White Blood Count 8.3, Red Blood Count 2.92L, Hemoglobin 8.4L, Hematocrit 25.6L, Mean Corpuscular Volume 88, Mean Corpuscular Hemoglobin 28.6, Mean Corpuscular Hemoglobin Concent 32.7, Red Cell Distribution Width 14.3, Platelet Count 150, Mean Platelet Volume 7.2, Neutrophils (%) (Auto) 57.1, Lymphocytes (%) (Auto) 33.3, Monocytes (%) (Auto) 7.5, Eosinophils (%) (Auto) 1.3, Basophils (%) (Auto) 0.7, Sodium Level 138, Potassium Level 3.9, Chloride Level 105, Carbon Dioxide Level 31, Anion Gap 2L, Blood Urea Nitrogen 27H, Creatinine 1.1, Estimat Glomerular Filtration Rate > 60, Glucose Level 75, Calcium Level 7.3L, Magnesium Level 2.3, Pro-B-Type Natriuretic Peptide 377H Height (Feet): 6 Height (Inches): 1.00 Weight (Pounds): 148 Objective exam stable urine clearing Levi Brunson MD Oct 12, 2020 16:30
--- NOTE | 2020-10-12 16:34 | General Progress Note ---
Subjective Allergies: Coded Allergies: VANCOMYCIN (Verified Allergy, Severe, hive, 09/28/20) Subjective NAD calm tolerated TF Objective Last 24 Hour Vital Signs Date Time Temp Pulse Resp B/P (MAP) Pulse Ox O2 Delivery O2 Flow Rate FiO2 10/12/20 16:00 98.1 88 24 127/83 (98) 100 10/12/20 16:00 83 10/12/20 15:55 45 10/12/20 15:54 Mechanical Ventilator 10/12/20 15:25 83 26 40 10/12/20 12:00 Mechanical Ventilator 10/12/20 12:00 92 10/12/20 12:00 45 10/12/20 12:00 97.7 72 24 117/78 (91) 100 10/12/20 10:30 84 31 40 10/12/20 08:00 79 10/12/20 08:00 97.7 73 14 117/77 (90) 100 10/12/20 08:00 45 10/12/20 08:00 Mechanical Ventilator 10/12/20 07:18 69 28 40 10/12/20 04:00 Mechanical Ventilator 10/12/20 04:00 45 10/12/20 04:00 97.9 64 27 121/81 (94) 98 10/12/20 03:50 79 10/12/20 02:51 83 29 40 10/12/20 00:00 98.2 90 27 122/88 (99) 98 10/12/20 00:00 Mechanical Ventilator 10/11/20 23:50 87 10/11/20 23:01 86 30 40 10/11/20 20:00 45 10/11/20 20:00 Mechanical Ventilator 10/11/20 20:00 98.1 76 27 110/71 (84) 98 10/11/20 19:33 74 10/11/20 19:15 76 30 40 Intake and Output 10/11/20 10/12/20 19:00 07:00 Intake Total 917.5 ml 917.5 ml Output Total 1650 ml 1200 ml Balance -732.5 ml -282.5 ml Free Water 120 ml 60 ml IV Total 137.5 ml 137.5 ml Tube Feeding 660 ml 720 ml Output Urine Total 1650 ml 1200 ml # Bowel Movements 1 Laboratory Tests 10/12/20 02:45: White Blood Count 8.3, Red Blood Count 2.92L, Hemoglobin 8.4L, Hematocrit 25.6L, Mean Corpuscular Volume 88, Mean Corpuscular Hemoglobin 28.6, Mean Corpuscular Hemoglobin Concent 32.7, Red Cell Distribution Width 14.3, Platelet Count 150, Mean Platelet Volume 7.2, Neutrophils (%) (Auto) 57.1, Lymphocytes (%) (Auto) 33.3, Monocytes (%) (Auto) 7.5, Eosinophils (%) (Auto) 1.3, Basophils (%) (Auto) 0.7, Sodium Level 138, Potassium Level 3.9, Chloride Level 105, Carbon Dioxide Level 31, Anion Gap 2L, Blood Urea Nitrogen 27H, Creatinine 1.1, Estimat Gl omerular Filtration Rate > 60, Glucose Level 75, Calcium Level 7.3L, Magnesium Level 2.3, Pro-B-Type Natriuretic Peptide 377H Height (Feet): 6 Height (Inches): 1.00 Weight (Pounds): 148 Objective Thin WM on vent/trach calm, awake Skin: no hematoma or ecchymosis HEENT NCAT supple, (+) trach coarse ronchi RR, slightly tachy abd soft flat ND, (+) GT no edema Assessment/Plan Status: stable Assessment/Plan: Assessment - resp failure - s/p PEG - anemia - OBS/Dementia - sepsis - diarrhea, C Diff (-) - Azotemia, resolved - CHF - malnutrition , low albumin - leukocytosis - hypernatremia Recommendations -Vent care / support - cards and pulm follow up - supportive care - abx - PPI - TF Deborah Cabrera MD Oct 12, 2020 16:34
--- NOTE | 2020-10-12 16:40 | NUR ---
NURSE NOTES:G tube feeding finished, replaced and rehung feeding.
--- NOTE | 2020-10-12 19:35 | NUR ---
NURSE NOTES: Received report from ARTEMIO Hemphill. Pt is awake, opens eyes and tracks, non-verbal, restless and moving around in bed. Pt does not appear to be in respiratory/cardiac distress. site monitor show SR. O2 saturation is 100% on S8, AC 12, TV 450, PEEP 7, FiO2 45%. GT is dry and intact, running Jevity 1.2 at 60ml/hr, no residuals noted. Rae is intact and draining well to gravity. L hand 22g is intact and flushes well. Skin issues noted. Allergy status, code status, fall/aspiration precautions noted and reinforced. HOB elevated, side rails x3 and padded, call light within reach, bed alarmed, locked, and in lowest position. Will continue plan of care, will continue to monitor.
--- NOTE | 2020-10-12 19:48 | NUR ---
NURSE HAND-OFF REPORT: Important Events on Shift: Patient Status: stable Diet: Jevity 1.2@60ML/HR Pending Orders: Pending Results/Labs: Pending MD notification: Latest Vital Signs: Temperature 98.1 , Pulse 77 , B/P 127 /83 , Respiratory Rate 27 , O2 SAT 100 , Mechanical Ventilator, O2 Flow Rate 45.0 . Vital Sign Comment: EKG Rhythm: Sinus Rhythm Rhythm change?: N MD Notified?: N -Dr. Gabriel linares MD Response: No New Orders Received Latest Schultz Fall Score: 70 Fall Risk: High Risk Safety Measures: Call light Within Reach, Bed Alarm Zone 2, Side Rails Side Rails x3, Bed position Low and Locked. Fall Precautions: Yellow Socks Door Sign Patient Fall Education Report given to ARTEMIO Xavier.
[2020-10-12 20:00] VITALS: BP 142/91
[2020-10-12] MEDS: Valproic Acid 250mg/5ml Liquid GT SCH (20:59)
[2020-10-12] MEDS: Tamsulosin 0.4mg cap ORAL SCH (20:59)
[2020-10-12] MEDS: LORazepam 1mg tab GT PRN (21:00)
--- NOTE | 2020-10-12 21:05 | NUR ---
NURSE NOTES: Pt is very restless and agitated, moving around in bed and increasing chances of falling. Ativan given. Will reassess in 30 minutes.
--- NOTE | 2020-10-12 21:35 | NUR ---
NURSE NOTES: Pt is calmer, vital signs stable. Will continue to monitor.
[2020-10-13] VITALS: BP 127/84
--- NOTE | 2020-10-13 00:23 | NUR ---
NURSE NOTES: Pt is calmer. Turned pt. Vital signs stable at this time. Will continue to monitor.
--- NOTE | 2020-10-13 02:43 | Cardiology Progress Note ---
Subjective DATE OF SERVICE: Oct 12, 2020 Remains on vent via trach, requiring 40-45% oxygen delivery. Remains congested; less edematous. Fluid balance negative on current diuretic dose. BP remains mostly controlled. Monitor: sinus/ sinus tachycardia. (10/08) 7.48/44/75 Objective Last 24 Hour Vital Signs Date Time Temp Pulse Resp B/P (MAP) Pulse Ox O2 Delivery O2 Flow Rate FiO2 10/13/20 01:23 71 38 40 10/13/20 00:00 45 10/13/20 00:00 Mechanical Ventilator 10/13/20 00:00 97.7 72 27 127/84 (98) 100 10/12/20 23:58 76 10/12/20 21:30 77 24 134/84 100 10/12/20 21:00 88 24 142/91 100 10/12/20 20:00 98.1 88 24 142/91 (108) 100 10/12/20 20:00 45 10/12/20 20:00 Mechanical Ventilator 10/12/20 19:27 77 10/12/20 18:52 77 27 40 10/12/20 16:00 98.1 88 24 127/83 (98) 100 10/12/20 16:00 83 10/12/20 15:55 45 10/12/20 15:54 Mechanical Ventilator 10/12/20 15:25 83 26 40 10/12/20 12:00 Mechanical Ventilator 10/12/20 12:00 92 10/12/20 12:00 45 10/12/20 12:00 97.7 72 24 117/78 (91) 100 10/12/20 10:30 84 31 40 10/12/20 08:00 79 10/12/20 08:00 97.7 73 14 117/77 (90) 100 10/12/20 08:00 45 10/12/20 08:00 Mechanical Ventilator 10/12/20 07:18 69 28 40 10/12/20 04:00 Mechanical Ventilator 10/12/20 04:00 45 10/12/20 04:00 97.9 64 27 121/81 (94) 98 10/12/20 03:50 79 10/12/20 02:51 83 29 40 ROS: no change from my evaluation of 09/10/20. HEENT: Mechanically Ventilated, Thin Trach secretions RHYTHM: NSR, ST LUNGS: bilat. rhonchi and rales, trach site clean CARDIAC: normal rate, regular rhythm, normal S1 and S2 ABDOMEN: normal bowel sounds, soft, G-Tube intact EXTREMITIES: trace edema Laboratory Tests Test 10/12/20 02:45 White Blood Count 8.3 K/UL (4.8-10.8) Red Blood Count 2.92 M/UL (4.70-6.10) L Hemoglobin 8.4 G/DL (14.2-18.0) L Hematocrit 25.6 % (42.0-52.0) L Mean Corpuscular Volume 88 FL (80-99) Mean Corpuscular Hemoglobin 28.6 PG (27.0-31.0) Mean Corpuscular Hemoglobin Concent 32.7 G/DL (32.0-36.0) Red Cell Distribution Width 14.3 % (11.6-14.8) Platelet Count 150 K/UL (150-450) Mean Platelet Volume 7.2 FL (6.5-10.1) Neutrophils (%) (Auto) 57.1 % (45.0-75.0) Lymphocytes (%) (Auto) 33.3 % (20.0-45.0) Monocytes (%) (Auto) 7.5 % (1.0-10.0) Eosinophils (%) (Auto) 1.3 % (0.0-3.0) Basophils (%) (Auto) 0.7 % (0.0-2.0) Sodium Level 138 MMOL/L (136-145) Potassium Level 3.9 MMOL/L (3.5-5.1) Chloride Level 105 MMOL/L (98-107) Carbon Dioxide Level 31 MMOL/L (21-32) Anion Gap 2 mmol/L (5-15) L Blood Urea Nitrogen 27 mg/dL (7-18) H Creatinine 1.1 MG/DL (0.55-1.30) Estimat Glomerular Filtration Rate > 60 mL/min (>60) Glucose Level 75 MG/DL (74-106) Calcium Level 7.3 MG/DL (8.5-10.1) L Magnesium Level 2.3 MG/DL (1.8-2.4) Pro-B-Type Natriuretic Peptide 377 pg/mL (0-125) H Assessment/Plan Assessment/Plan Respiratory failure with hypoxia - s/p tracheostomy Sepsis Aspiration PNA Recurring shock - recovered Diarrhea Dehydration/hypernatremia corrected Acute myocardial ischemia Acute renal failure HC assoc PNA UTI Transaminitis, acute CVA/dementia Paroxysmal sinus bradycardia and tachycardia Acute/chronic diastolic CHF now compensated with decreased BNP to 377 Severe protein/calorie malnutrition with dysphagia; now s/p PEG Hypokalemia Remains CRITICAL & GUARDED Vent support with trach care; wean down O2. Antimicrobials per ID. ?reculture for fever Replace lytes as needed. DVT prophyl Cardiac monitoring Diuresis with oral maint dose of furosemide and aldactone now; trend BNP. Madi Rios MD Oct 13, 2020 02:42
[2020-10-13 04:00] VITALS: BP 120/82
--- NOTE | 2020-10-13 04:50 | NUR ---
NURSE NOTES: Pt had one moderate brown soft BM. Cleaned pt and changed linens and gown. Turned pt. No signs of distress noted. Tolerated procedure well. Will continue to monitor. Will continue plan of care.
[2020-10-13] MEDS: Piperacillin/Tazobactam 3.375 GM in NS 110 ML IVPB SCH ×3 (05:29→21:14)
--- NOTE | 2020-10-13 07:14 | NUR ---
NURSE HAND-OFF REPORT: Important Events on Shift:[Stable during shift] Patient Status: [Stable] Diet: [Jevity 1.2 60cc/hr] Pending Orders: [NA] Pending Results/Labs:[NA] Pending MD notification:[NA] Latest Vital Signs: Temperature 98.2 , Pulse 73 , B/P 120 /82 , Respiratory Rate 28 , O2 SAT 100 , Mechanical Ventilator, O2 Flow Rate 45.0 . Vital Sign Comment: [Stable] EKG Rhythm: Sinus Rhythm Rhythm change?: N MD Notified?: N -Dr. Gabriel linares MD Response: No New Orders Received Latest Schultz Fall Score: 70 Fall Risk: High Risk Safety Measures: Call light Within Reach, Bed Alarm Zone 2, Side Rails Side Rails x3, Bed position Low and Locked. Fall Precautions: Yellow Socks Door Sign Patient Fall Education Report given to [ARTEMIO Love].
--- NOTE | 2020-10-13 07:25 | NUR ---
NURSE NOTES: Received patient from ARTEMIO Xavier. patient is awake in bed, restless. sinus rhythm on the monitor. trach to vent at prescribed settings, tolerating well. gtube and tube feeding running at prescribed rate. andrade is in place and draining well to gravity. call light within easy reach. bed to lowest position, side rails up x2. will continue plan of care.
[2020-10-13 08:00] VITALS: BP 127/87
[2020-10-13] MEDS: Docusate 100mg/10ml Liq NG SCH ×2 (09:27→17:33)
[2020-10-13] MEDS: Ascorbic Acid 500mg tab NG SCH (09:27)
[2020-10-13] MEDS: Multivitamins W/Minerals 15 ML UDC NG SCH (09:27)
[2020-10-13] MEDS: Furosemide 40mg tab GT SCH (09:28)
[2020-10-13] MEDS: Zinc Sulfate 220mg GT SCH (09:28)
[2020-10-13] MEDS: Spironolactone 25mg tab GT SCH (09:28)
--- NOTE | 2020-10-13 09:31 | Urology Progress Note ---
Assessment/Plan Status: stable Assessment/Plan: 1. Gross hematuria. 2. Pyuria and possible UTI. 3. Proteinuria. 4. BPH. 5. Urinary retention. 6. Probable neurogenic bladder. 7. Possible sepsis. monitor clinically maintain andrade, secured to pt's leg hand irrigated and do PRN restarted on abx, add antifungal? per ID flomax and proscar cysto electively voiding trial at some point? or change andrade Subjective Allergies: Coded Allergies: VANCOMYCIN (Verified Allergy, Severe, hive, 09/28/20) Subjective remains on vent, trach 09/27 Objective Last 24 Hour Vital Signs Date Time Temp Pulse Resp B/P (MAP) Pulse Ox O2 Delivery O2 Flow Rate FiO2 10/13/20 08:00 98.1 76 18 127/87 (100) 100 10/13/20 04:00 45 10/13/20 04:00 Mechanical Ventilator 10/13/20 04:00 98.2 73 28 120/82 (95) 100 10/13/20 03:54 73 10/13/20 01:23 71 38 40 10/13/20 00:00 45 10/13/20 00:00 Mechanical Ventilator 10/13/20 00:00 97.7 72 27 127/84 (98) 100 10/12/20 23:58 76 10/12/20 21:30 77 24 134/84 100 10/12/20 21:00 88 24 142/91 100 10/12/20 20:00 98.1 88 24 142/91 (108) 100 10/12/20 20:00 45 10/12/20 20:00 Mechanical Ventilator 10/12/20 19:50 77 26 40 10/12/20 19:27 77 10/12/20 18:52 77 27 40 10/12/20 16:00 98.1 88 24 127/83 (98) 100 10/12/20 16:00 83 10/12/20 15:55 45 10/12/20 15:54 Mechanical Ventilator 10/12/20 15:25 83 26 40 10/12/20 12:00 Mechanical Ventilator 10/12/20 12:00 92 10/12/20 12:00 45 10/12/20 12:00 97.7 72 24 117/78 (91) 100 10/12/20 10:30 84 31 40 Intake and Output 10/12/20 10/13/20 19:00 07:00 Intake Total 820 ml 820 ml Output Total 1100 ml Balance -280 ml 820 ml Free Water 220 ml 100 ml Tube Feeding 600 ml 720 ml Output Urine Total 1100 ml # Bowel Movements 2 2 Microbiology Date/Time Source Procedure Growth Status 10/09/20 21:17 Urine,Clean Catch Urine Culture - Final Reena Tropicalis Complete 10/09/20 18:00 Sputum Gram Stain - Final Complete 10/09/20 18:00 Sputum Culture - Final Klebsiella Pneumoniae Usual Respiratory Louisa Complete 09/18/20 18:30 Stool Clostridium difficile Toxin Assay - Final Complete 09/17/20 12:58 Blood Blood Culture - Final NO GROWTH AFTER 5 DAYS Complete 09/10/20 17:15 Rectum VRE Culture - Final Enterococcus Faecalis - Vre Complete Current Medications Medications (Trade) Dose Ordered Sig/Aleksander Route PRN Reason Start Time Stop Time Status Last Admin Dose Admin Acetaminophen (Tylenol) 650 mg Q6H PRN NG pain 1-6 10/08/20 15:30 11/07/20 15:14 Ascorbic Acid (Vitamin C) 250 mg DAILY NG 09/26/20 09:00 10/18/20 08:59 10/13/20 09:27 Bisacodyl (Dulcolax) 10 mg DAILYPRN PRN RECTAL Constipation 10/11/20 12:00 01/09/21 11:59 Diphenhydramine HCl (Benadryl) 25 mg Q6H PRN IVP Itching 09/27/20 12:15 10/27/20 12:14 10/10/20 22:15 Diphenoxylate HCl/ Atropine (Lomotil) 2.5 mg Q4H PRN ORAL Diarrhea 09/20/20 08:15 10/20/20 08:14 Docusate Sodium (Colace) 100 mg TWICE A DAY NG 10/11/20 18:00 11/10/20 17:59 10/13/20 09:27 Famotidine (Pepcid) 20 mg BID GT 10/04/20 09:00 01/02/21 08:59 10/13/20 09:28 Finasteride (Proscar) 5 mg DAILY ORAL 09/13/20 09:00 12/12/20 08:59 10/13/20 09:28 Furosemide (Lasix) 40 mg DAILY GT 10/11/20 09:00 11/10/20 08:59 10/13/20 09:28 Hydromorphone HCl (Dilaudid) 0.5 mg Q4H PRN IVP SEVERE PAIN 10/08/20 15:18 10/15/20 15:17 Lorazepam (Ativan) 1 mg Q4H PRN GT For Anxiety 10/07/20 22:00 10/14/20 21:59 10/12/20 21:00 Multivitamins (Multivitamins W/ Minerals 15ml Liquid) 15 ml DAILY NG 09/26/20 09:00 10/26/20 08:59 10/13/20 09:27 Piperacillin Sod/ Tazobactam Sod 3.375 gm/Sodium Chloride 110 ml @ 27.5 mls/hr EVERY 8 HOURS IVPB 10/09/20 11:00 10/14/20 10:59 10/13/20 05:29 Spironolactone (Aldactone) 25 mg DAILY GT 10/05/20 09:00 11/04/20 08:59 10/13/20 09:28 Tamsulosin HCl (Flomax) 0.4 mg BEDTIME ORAL 10/11/20 21:00 11/10/20 20:59 10/12/20 20:59 Valproic Acid (Depakene) 1,000 mg BEDTIME GT 10/06/20 21:00 10/31/20 20:59 10/12/20 20:59 Zinc Sulfate (Zinc Sulfate) 220 mg DAILY GT 10/06/20 09:00 01/04/21 08:59 10/13/20 09:28 Height (Feet): 6 Height (Inches): 1.00 Weight (Pounds): 148 Objective exam stable urine clearing Levi Brunson MD Oct 13, 2020 09:31
[2020-10-13] MEDS: LORazepam 1mg tab GT PRN ×2 (09:39→21:14)
--- NOTE | 2020-10-13 10:07 | General Progress Note ---
Subjective ROS Limited/Unobtainable: No Allergies: Coded Allergies: VANCOMYCIN (Verified Allergy, Severe, hive, 09/28/20) Objective Last 24 Hour Vital Signs Date Time Temp Pulse Resp B/P (MAP) Pulse Ox O2 Delivery O2 Flow Rate FiO2 10/13/20 09:39 76 18 127/87 100 10/13/20 08:00 98.1 76 18 127/87 (100) 100 10/13/20 04:00 45 10/13/20 04:00 Mechanical Ventilator 10/13/20 04:00 98.2 73 28 120/82 (95) 100 10/13/20 03:54 73 10/13/20 01:23 71 38 40 10/13/20 00:00 45 10/13/20 00:00 Mechanical Ventilator 10/13/20 00:00 97.7 72 27 127/84 (98) 100 10/12/20 23:58 76 10/12/20 21:30 77 24 134/84 100 10/12/20 21:00 88 24 142/91 100 10/12/20 20:00 98.1 88 24 142/91 (108) 100 10/12/20 20:00 45 10/12/20 20:00 Mechanical Ventilator 10/12/20 19:50 77 26 40 10/12/20 19:27 77 10/12/20 18:52 77 27 40 10/12/20 16:00 98.1 88 24 127/83 (98) 100 10/12/20 16:00 83 10/12/20 15:55 45 10/12/20 15:54 Mechanical Ventilator 10/12/20 15:25 83 26 40 10/12/20 12:00 Mechanical Ventilator 10/12/20 12:00 92 10/12/20 12:00 45 10/12/20 12:00 97.7 72 24 117/78 (91) 100 10/12/20 10:30 84 31 40 Intake and Output 10/12/20 10/13/20 19:00 07:00 Intake Total 820 ml 820 ml Output Total 1100 ml Balance -280 ml 820 ml Free Water 220 ml 100 ml Tube Feeding 600 ml 720 ml Output Urine Total 1100 ml # Bowel Movements 2 2 Height (Feet): 6 Height (Inches): 1.00 Weight (Pounds): 148 General Appearance: no apparent distress EENT: normal ENT inspection Neck: supple Cardiovascular: normal rate Respiratory/Chest: decreased breath sounds Abdomen: normal bowel sounds, non tender, soft Extremities: non-tender Assessment/Plan Status: stable Assessment/Plan: Assessment/Plan Status: stable Assessment/Plan: Assessment - resp failure - s/p PEG - anemia - OBS/Dementia - sepsis - diarrhea, C Diff (-) - Azotemia, resolved - CHF - malnutrition , low albumin - leukocytosis - hypernatremia Recommendations -Vent care / support - cards and pulm follow up - supportive care - abx - PPI - TF Hima Escalante MD Oct 13, 2020 10:07
--- NOTE | 2020-10-13 10:09 | Infectious Diseases Prog Note ---
Assessment/Plan Assessment/Plan A 1. Pneumonia with Klebsiella 2. Dementia. 3. Leukocytosis 4. Urinary tract infection treated 5. 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 BPH 8. New fever P 1. Continue Zosyn X 1 day Subjective ROS Limited/Unobtainable: Yes Constitutional: Denies: fever Gastrointestinal/Abdominal: Reports: diarrhea Neurologic: Reports: confusion, other - restrained with mittens Allergies: Coded Allergies: VANCOMYCIN (Verified Allergy, Severe, hive, 09/28/20) Objective Last 24 Hour Vital Signs Date Time Temp Pulse Resp B/P (MAP) Pulse Ox O2 Delivery O2 Flow Rate FiO2 10/13/20 09:39 76 18 127/87 100 10/13/20 08:00 98.1 76 18 127/87 (100) 100 10/13/20 04:00 45 10/13/20 04:00 Mechanical Ventilator 10/13/20 04:00 98.2 73 28 120/82 (95) 100 10/13/20 03:54 73 10/13/20 01:23 71 38 40 10/13/20 00:00 45 10/13/20 00:00 Mechanical Ventilator 10/13/20 00:00 97.7 72 27 127/84 (98) 100 10/12/20 23:58 76 10/12/20 21:30 77 24 134/84 100 10/12/20 21:00 88 24 142/91 100 10/12/20 20:00 98.1 88 24 142/91 (108) 100 10/12/20 20:00 45 10/12/20 20:00 Mechanical Ventilator 10/12/20 19:50 77 26 40 10/12/20 19:27 77 10/12/20 18:52 77 27 40 10/12/20 16:00 98.1 88 24 127/83 (98) 100 10/12/20 16:00 83 10/12/20 15:55 45 10/12/20 15:54 Mechanical Ventilator 10/12/20 15:25 83 26 40 10/12/20 12:00 Mechanical Ventilator 10/12/20 12:00 92 10/12/20 12:00 45 10/12/20 12:00 97.7 72 24 117/78 (91) 100 10/12/20 10:30 84 31 40 Height (Feet): 6 Height (Inches): 1.00 Weight (Pounds): 148 HEENT: status post trach Respiratory/Chest: other - on ventilator Cardiovascular: normal rate Abdomen: soft, non tender, other - GT feeding Extremities: no edema Neurologic/Psychiatric: disoriented, other - opens eyes Current Medications Medications (Trade) Dose Ordered Sig/Aleksander Route PRN Reason Start Time Stop Time Status Last Admin Dose Admin Acetaminophen (Tylenol) 650 mg Q6H PRN NG pain 1-6 10/08/20 15:30 11/07/20 15:14 Ascorbic Acid (Vitamin C) 250 mg DAILY NG 09/26/20 09:00 10/18/20 08:59 10/13/20 09:27 Bisacodyl (Dulcolax) 10 mg DAILYPRN PRN RECTAL Constipation 10/11/20 12:00 01/09/21 11:59 Diphenhydramine HCl (Benadryl) 25 mg Q6H PRN IVP Itching 09/27/20 12:15 10/27/20 12:14 10/10/20 22:15 Diphenoxylate HCl/ Atropine (Lomotil) 2.5 mg Q4H PRN ORAL Diarrhea 09/20/20 08:15 10/20/20 08:14 Docusate Sodium (Colace) 100 mg TWICE A DAY NG 10/11/20 18:00 11/10/20 17:59 10/13/20 09:27 Famotidine (Pepcid) 20 mg BID GT 10/04/20 09:00 01/02/21 08:59 10/13/20 09:28 Finasteride (Proscar) 5 mg DAILY ORAL 09/13/20 09:00 12/12/20 08:59 10/13/20 09:28 Furosemide (Lasix) 40 mg DAILY GT 10/11/20 09:00 11/10/20 08:59 10/13/20 09:28 Hydromorphone HCl (Dilaudid) 0.5 mg Q4H PRN IVP SEVERE PAIN 10/08/20 15:18 10/15/20 15:17 Lorazepam (Ativan) 1 mg Q4H PRN GT For Anxiety 10/07/20 22:00 10/14/20 21:59 12/26/20 09:39 Multivitamins (Multivitamins W/ Minerals 15ml Liquid) 15 ml DAILY NG 09/26/20 09:00 10/26/20 08:59 10/13/20 09:27 Piperacillin Sod/ Tazobactam Sod 3.375 gm/Sodium Chloride 110 ml @ 27.5 mls/hr EVERY 8 HOURS IVPB 10/09/20 11:00 10/14/20 10:59 10/13/20 05:29 Spironolactone (Aldactone) 25 mg DAILY GT 10/05/20 09:00 11/04/20 08:59 10/13/20 09:28 Tamsulosin HCl (Flomax) 0.4 mg BEDTIME ORAL 10/11/20 21:00 11/10/20 20:59 10/12/20 20:59 Valproic Acid (Depakene) 1,000 mg BEDTIME GT 10/06/20 21:00 10/31/20 20:59 10/12/20 20:59 Zinc Sulfate (Zinc Sulfate) 220 mg DAILY GT 10/06/20 09:00 01/04/21 08:59 10/13/20 09:28 Bradley Gil MD Oct 13, 2020 10:09
[2020-10-13 12:00] VITALS: BP 108/78
--- NOTE | 2020-10-13 12:50 | NUR ---
NURSE NOTES: bed bath performed. oral care done.
--- NOTE | 2020-10-13 13:59 | Surgery Progress Note ---
Surgery Progress Note Subjective Procedure Performed tracheostomy Additional Comments no acute events Objective Last 24 Hour Vital Signs Date Time Temp Pulse Resp B/P (MAP) Pulse Ox O2 Delivery O2 Flow Rate FiO2 10/13/20 12:00 62 10/13/20 12:00 Mechanical Ventilator 10/13/20 12:00 45 10/13/20 12:00 97.0 82 19 108/78 (88) 100 10/13/20 10:09 76 18 127/87 100 10/13/20 09:39 76 18 127/87 100 10/13/20 08:00 98.1 76 18 127/87 (100) 100 10/13/20 08:00 Mechanical Ventilator 10/13/20 08:00 75 10/13/20 08:00 45 10/13/20 04:00 45 10/13/20 04:00 Mechanical Ventilator 10/13/20 04:00 98.2 73 28 120/82 (95) 100 10/13/20 03:54 73 10/13/20 01:23 71 38 40 10/13/20 00:00 45 10/13/20 00:00 Mechanical Ventilator 10/13/20 00:00 97.7 72 27 127/84 (98) 100 10/12/20 23:58 76 10/12/20 21:30 77 24 134/84 100 10/12/20 21:00 88 24 142/91 100 10/12/20 20:00 98.1 88 24 142/91 (108) 100 10/12/20 20:00 45 10/12/20 20:00 Mechanical Ventilator 10/12/20 19:50 77 26 40 10/12/20 19:27 77 10/12/20 18:52 77 27 40 10/12/20 16:00 98.1 88 24 127/83 (98) 100 10/12/20 16:00 83 10/12/20 15:55 45 10/12/20 15:54 Mechanical Ventilator 10/12/20 15:25 83 26 40 I&O Intake and Output 10/12/20 10/13/20 19:00 07:00 Intake Total 820 ml 820 ml Output Total 1100 ml Balance -280 ml 820 ml Free Water 220 ml 100 ml Tube Feeding 600 ml 720 ml Output Urine Total 1100 ml # Bowel Movements 2 2 Dressing: saturated Cardiovascular: RSR Respiratory: decreased breath sounds Abdomen: soft, non-tender, present bowel sounds Extremities: no edema, no tenderness, no cyanosis Plan Problems: (1) Fever Assessment & Plan: maybe developing pneumonia cont abx pulm input thank you (2) Decubitus skin ulcer Assessment & Plan: Patient identified on admission to have multiple scabs on the left arm. mild open scabs with eschar. no drainage. no significant cellulitis. bruising no bilateral extremities noted. no signs of abuse. likely from agitation Sacral coccygeal noted to have a DTI 4.3X2.5CM. which is dark purple . RECOMMEND-CLEAN WITH SALINE, PAT DRY AND APPLY CALAZINE. COVER WITH OPTIFOAM DRESSING. REPLACE EVERY 3 DAYS OR NEEDED LEFT ISCHIUM- STAGE I PRESSURE ULCER MEASURES 4.5X1.7CM. NON-BLANCHABLE ERYTHEMA. RECOMMEND- APPLY CALAZINE AND COVER WITH OPTIFOAM DRESSING. REPLACE EVERY 7 DAYS. 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 Roman is a 70 year old male [place] [facility] [place] 14:00 due to fever. He was found to be hypotensive 91/55 (67), Temp: 100.0, leukocytosis 20.8k and subsequently transferred to ICU for se ptic shock. The blood culture is reportedly positive for gram positive cocci. NG tube was placed, KUB confirmed the placement to day. Pt is clinically stable with leukocytosis 20.1, improved BUN and creatine, stable hemodynamic without vasopressor. Findings: Mr. Roman is disoriented. He does ot follow commands at this time. Oral cavity is noted to be dried blood concretion likely from NG trauma. No active bleeding site is seen. Due to his level f alertness, already NG tube is in placed, PO trial was not done at this time. Transferred out ICU last night. He is non on tele. Issues: multiple wounds, s.p balaji/nasal/pharyngeal bleeding with blood culture Gram positive cocci leukocytosis trending down from 20k-20k-16k BUN/Creatine trending down from 93/1.9-79/1.3-54/1.1 Temp: 98.1~98.7, Pulse: 62~72, BP: 105/67~120/48, SPO2 98~100% on 2 liter S: Oral cavity is better condition comparison to yesterday. The mucosa is severely erythema without active bleeding. Limited level of alertness for direct therapy. NG in placed O: 1. Laryngeal palpation to trigger spontaneous cough and swallow: Pt triggered cough with laryngeal palpation. Approximately 5~10 seconds after coughing, he triggered swallow. based on this observation, he presents with copious secretion in pharynx and larynx. He continued to have poor secretion management at laryngeal level at this time. NO PO trial was given due to poor secretion at the level of air way with low level of alertness. A: 1. Probable aspiration of his own secretion with poor ability to cough and swallow 2. Dysphagia P: 1. NPO for now 2. Observe his secretion, and level of alertness for PO readiness. DAILY ESTIMATED NEEDS: Needs based on Wound, underweight/ 55kg 30-35 kcals/kg 1743-3831 total kcals 1.25-2 g protein/kg 69-110 g total protein 25-30 mL/kg 4868-7229 total fluid mLs NUTRITION DIAGNOSIS: Increased kcal/prot needs R/T wound healing and underweight status as evidenced by pt admitted w/ wounds including DTI 2 coccyx and stage 1 @ lt ischium, pt @ 73% IBW w/ low BMI per guidelines, s/p NGT insertion, on NGT feeds. CURRENT TF:Jevity 1.2 @ 50ml/hr x 24 hrs ENTERAL NUTRITION RECOMMENDATIONS: Jevity 1.2 @ 60ml/hr x 24 hrs to provide 1440ml, 1728kcal, 80g prot, 1160ml free water * As medically appropriate, increase goal rate to 60ml/hr x 24 hrs to meet 100% est kcal/prot needs * HOB over 30 degrees/ without IVF, H2O flush of 100ml q 8hrs ADDITIONAL RECOMMENDATIONS: * Calibrated daily bedscale wt Per SNF: HT=70" * Wound healing: TF rec @ goal will provide 100% RDI add Vit C 250mg QD, ZnSO4 220mg QD x 10days, Davidson BID via NGT * Monitor BGs, need for NISS w/ TF * Monitor lytes, replete as needed- high risk for refeeding syndrome -> check f/up phos and mag (4) Severe sepsis Assessment & Plan: will likely need trach and peg. patient needs protected airway and nutrition full code no family and unable to consent medically necessary. will plan soon (5) Open upper arm wound (6) Hematuria Assessment & Plan: as per urology Aubrey Guteirrez Oct 13, 2020 13:59
[2020-10-13 16:00] VITALS: BP 103/70
--- NOTE | 2020-10-13 18:58 | NUR ---
NURSE HAND-OFF REPORT: Important Events on Shift: remains stable Patient Status: FULL CODE Diet: Jevity 1.2 @60ml Pending Orders: [] Pending Results/Labs:[] Pending MD notification:[] Latest Vital Signs: Temperature 97.9 , Pulse 74 , B/P 103 /70 , Respiratory Rate 29 , O2 SAT 100 , Mechanical Ventilator, O2 Flow Rate 45.0 . Vital Sign Comment: stable EKG Rhythm: Sinus Rhythm Rhythm change?: N MD Notified?: N -Dr. Gabriel linares MD Response: No New Orders Received Latest Schultz Fall Score: 70 Fall Risk: High Risk Safety Measures: Call light Within Reach, Bed Alarm Zone 2, Side Rails Side Rails x3, Bed position Low and Locked. Fall Precautions: Yellow Socks Door Sign Patient Fall Education Report given to ARTEMIO Xavier.
--- NOTE | 2020-10-13 19:20 | NUR ---
NURSE NOTES: Received report from ARTEMIO Love. Pt is awake, restless, opens eyes, non-verbal. No signs of distress noted. date night sitter shows SR and pt's O2 saturation is 100% on S8, AC 12, TV 450, PEEP 7, FiO2 70%. No signs of pain noted. GT is intact with no residuals, running Jevity 1.2 at 60cc/hr. Rae is intact and draiing well to gravity. L hand 22g asymptomatic and flushing well. Skin issues noted. Allergy, code, and fall/aspiration precautions noted and reinforced. HOB elevated, side rails x3, call light within reach, bed alarmed, locked, and in lowest position. Will continue plan of care, will continue to monitor.
--- NOTE | 2020-10-13 19:55 | NUR ---
NURSE NOTES: Ativan given for restlessness. Vital signs are stable. Will continue to monitor. Will continue plan of care.
[2020-10-13 20:00] VITALS: BP 135/82
--- NOTE | 2020-10-13 20:09 | Pulmonology Progress Note ---
Subjective ROS Limited/Unobtainable: Yes Constitutional: Denies: fever Gastrointestinal/Abdominal: Reports: diarrhea Allergies: Coded Allergies: VANCOMYCIN (Verified Allergy, Severe, hive, 09/28/20) All Systems: reviewed and negative except above Objective Last 24 Hour Vital Signs Date Time Temp Pulse Resp B/P (MAP) Pulse Ox O2 Delivery O2 Flow Rate FiO2 10/13/20 16:00 45 10/13/20 16:00 97.9 70 29 103/70 (81) 100 10/13/20 16:00 Mechanical Ventilator 10/13/20 16:00 74 10/13/20 13:20 63 21 40 10/13/20 12:00 62 10/13/20 12:00 Mechanical Ventilator 10/13/20 12:00 45 10/13/20 12:00 97.0 82 19 108/78 (88) 100 10/13/20 10:09 76 18 127/87 100 10/13/20 09:39 76 18 127/87 100 10/13/20 08:00 98.1 76 18 127/87 (100) 100 10/13/20 08:00 Mechanical Ventilator 10/13/20 08:00 75 10/13/20 08:00 45 10/13/20 04:00 45 10/13/20 04:00 Mechanical Ventilator 10/13/20 04:00 98.2 73 28 120/82 (95) 100 10/13/20 03:54 73 10/13/20 01:23 71 38 40 10/13/20 00:00 45 10/13/20 00:00 Mechanical Ventilator 10/13/20 00:00 97.7 72 27 127/84 (98) 100 10/12/20 23:58 76 10/12/20 21:30 77 24 134/84 100 10/12/20 21:00 88 24 142/91 100 Intake and Output 10/12/20 10/13/20 19:00 07:00 Intake Total 820 ml 820 ml Output Total 1100 ml Balance -280 ml 820 ml Free Water 220 ml 100 ml Tube Feeding 600 ml 720 ml Output Urine Total 1100 ml # Bowel Movements 2 2 Current Medications Medications (Trade) Dose Ordered Sig/Aleksander Route PRN Reason Start Time Stop Time Status Last Admin Dose Admin Acetaminophen (Tylenol) 650 mg Q6H PRN NG pain 1-6 10/08/20 15:30 11/07/20 15:14 Ascorbic Acid (Vitamin C) 250 mg DAILY NG 09/26/20 09:00 10/18/20 08:59 10/13/20 09:27 Bisacodyl (Dulcolax) 10 mg DAILYPRN PRN RECTAL Constipation 10/11/20 12:00 01/09/21 11:59 Diphenhydramine HCl (Benadryl) 25 mg Q6H PRN IVP Itching 09/27/20 12:15 10/27/20 12:14 10/10/20 22:15 Diphenoxylate HCl/ Atropine (Lomotil) 2.5 mg Q4H PRN ORAL Diarrhea 09/20/20 08:15 10/20/20 08:14 Docusate Sodium (Colace) 100 mg TWICE A DAY NG 10/11/20 18:00 11/10/20 17:59 10/13/20 17:33 Famotidine (Pepcid) 20 mg BID GT 10/04/20 09:00 01/02/21 08:59 10/13/20 17:33 Finasteride (Proscar) 5 mg DAILY ORAL 09/13/20 09:00 12/12/20 08:59 10/13/20 09:28 Furosemide (Lasix) 40 mg DAILY GT 10/11/20 09:00 11/10/20 08:59 10/13/20 09:28 Hydromorphone HCl (Dilaudid) 0.5 mg Q4H PRN IVP SEVERE PAIN 10/08/20 15:18 10/15/20 15:17 Lorazepam (Ativan) 1 mg Q4H PRN GT For Anxiety 10/07/20 22:00 10/14/20 21:59 10/13/20 09:39 Multivitamins (Multivitamins W/ Minerals 15ml Liquid) 15 ml DAILY NG 09/26/20 09:00 10/26/20 08:59 10/13/20 09:27 Piperacillin Sod/ Tazobactam Sod 3.375 gm/Sodium Chloride 110 ml @ 27.5 mls/hr EVERY 8 HOURS IVPB 10/09/20 11:00 10/14/20 10:59 10/13/20 13:19 Spironolactone (Aldactone) 25 mg DAILY GT 10/05/20 09:00 11/04/20 08:59 10/13/20 09:28 Tamsulosin HCl (Flomax) 0.4 mg BEDTIME ORAL 10/11/20 21:00 11/10/20 20:59 10/12/20 20:59 Valproic Acid (Depakene) 1,000 mg BEDTIME GT 10/06/20 21:00 10/31/20 20:59 10/12/20 20:59 Zinc Sulfate (Zinc Sulfate) 220 mg DAILY GT 10/06/20 09:00 01/04/21 08:59 10/13/20 09:28 Assessment/Plan Assessment/Plan Pulmonary Progress Note Subjective Allergies: Coded Allergies: No Known Allergies (Unverified , 09/10/20) Subjective remains confused stable oxygen requirements Persistant infiltrates AB per ID TF to SNF once stable CXR improving infiltrates Objective Vital Signs noted Height (Feet): 5 Height (Inches): 7.00 Weight (Pounds): 121 Objective WDWN NAD reduced breath sounds bilaterally without rhonchi or wheeze [id number] without MRG NABS nontender no HSM no CCE nonfocal remains confused Assessment/Plan Assessment/Plan: IMPRESSION: 1. Acute renal failure. 2. Hypernatremia improving 3. Leukocytosis. 4. Pneumonia/ sepsis. 5. Hypotension. 6. Dementia. 7. Acute on chronic encephalopathy. 8. bcx staph Epi 9. MRSA colonized PLAN continue current ventilator settings taper fio2 ID noted; monitor follow up on antibiotics monitor oxygen needs off load as able monitor lytes position change monitor imaging d/w consultants and nursing remains critical trach care dc plan to subacute impression, plan, and exam edited and reviewed in detail care discussed with Madi Richard MD Oct 13, 2020 20:08
[2020-10-13] MEDS: Valproic Acid 250mg/5ml Liquid GT SCH (21:13)
[2020-10-13] MEDS: Tamsulosin 0.4mg cap ORAL SCH (21:14)
[2020-10-14] VITALS: BP 120/75
--- NOTE | 2020-10-14 00:45 | NUR ---
NURSE NOTES: Turned pt, performed oral care. No distress or pain noted at this time. Will continue to monitor.
--- NOTE | 2020-10-14 03:56 | Cardiology Progress Note ---
Subjective DATE OF SERVICE: Oct 13, 2020 Remains on vent via trach, requiring 40-60% oxygen delivery now. Remains congested; less edematous. Fluid balance negative on current diuretic dose. BP remains controlled. Monitor: sinus/ sinus tachycardia. (10/08) 7.48/44/75 Objective Last 24 Hour Vital Signs Date Time Temp Pulse Resp B/P (MAP) Pulse Ox O2 Delivery O2 Flow Rate FiO2 10/14/20 02:30 79 28 60 10/14/20 00:00 83 10/14/20 00:00 60 10/14/20 00:00 98.4 87 20 120/75 (90) 100 10/14/20 00:00 Mechanical Ventilator 10/13/20 23:50 83 10/13/20 21:44 89 29 135/82 100 10/13/20 21:14 89 29 135/82 100 10/13/20 20:00 97.9 96 18 135/82 (99) 100 10/13/20 20:00 60 10/13/20 20:00 76 14 60 10/13/20 20:00 Mechanical Ventilator 10/13/20 19:54 77 10/13/20 16:00 45 10/13/20 16:00 97.9 70 29 103/70 (81) 100 10/13/20 16:00 Mechanical Ventilator 10/13/20 16:00 74 10/13/20 13:20 63 21 40 10/13/20 12:00 62 10/13/20 12:00 Mechanical Ventilator 10/13/20 12:00 45 10/13/20 12:00 97.0 82 19 108/78 (88) 100 10/13/20 10:09 76 18 127/87 100 10/13/20 09:39 76 18 127/87 100 10/13/20 08:00 98.1 76 18 127/87 (100) 100 10/13/20 08:00 Mechanical Ventilator 10/13/20 08:00 75 10/13/20 08:00 45 10/13/20 04:00 45 10/13/20 04:00 Mechanical Ventilator 10/13/20 04:00 98.2 73 28 120/82 (95) 100 10/13/20 03:54 73 ROS: no change from my evaluation of 09/10/20. HEENT: Mechanically Ventilated, Thin Trach secretions RHYTHM: NSR, ST LUNGS: bilat. rhonchi and rales, trach site clean CARDIAC: normal rate, regular rhythm, normal S1 and S2 ABDOMEN: normal bowel sounds, soft, G-Tube intact EXTREMITIES: trace edema Assessment/Plan Assessment/Plan Respiratory failure with hypoxia - s/p tracheostomy Sepsis Aspiration PNA Recurring shock - recovered Diarrhea Dehydration/hypernatremia corrected Acute myocardial ischemia Acute renal failure HC assoc PNA UTI Transaminitis, acute CVA/dementia Paroxysmal sinus bradycardia and tachycardia Acute/chronic diastolic CHF now compensated with decreased BNP to 377 Severe protein/calorie malnutrition with dysphagia; now s/p PEG Hypokalemia Remains CRITICAL & GUARDED Vent support with trach care; wean down O2. Antimicrobials per ID. ?reculture for fever Replace lytes as needed. DVT prophyl Cardiac monitoring Diuresis with oral maint dose of furosemide and aldactone now; trend BNP. Madi Rios MD Oct 14, 2020 03:56
[2020-10-14 04:00] VITALS: BP 119/77
[2020-10-14] MEDS: Piperacillin/Tazobactam 3.375 GM in NS 110 ML IVPB SCH (05:16)
--- NOTE | 2020-10-14 07:22 | NUR ---
NURSE NOTES: Received report from ARTEMIO Xavier. Patient is in bed, awake. No pain or discomfort at this time. Patient is on vent AC 12, TV 450, PEEP 7, FiO2 70%. GT is intact with no residuals, running Jevity 1.2 at 60cc/hr. Bed in lowest position, locked with side rails x2 up. HOB elevated. Call light within reach.
--- NOTE | 2020-10-14 07:23 | NUR ---
NURSE HAND-OFF REPORT: Important Events on Shift:[Stable at this time] Patient Status: [Stable] Diet: [Jevity 1.2 60cc/hr] Pending Orders: [NA] Pending Results/Labs:[NA] Pending MD notification:[NA] Latest Vital Signs: Temperature 98.6 , Pulse 95 , B/P 119 /77 , Respiratory Rate 20 , O2 SAT 98 , Mechanical Ventilator, O2 Flow Rate 45.0 . Vital Sign Comment: [Stable] EKG Rhythm: Sinus Rhythm Rhythm change?: N MD Notified?: N -Dr. Gabriel linares MD Response: No New Orders Received Latest Schultz Fall Score: 70 Fall Risk: High Risk Safety Measures: Call light Within Reach, Bed Alarm Zone 2, Side Rails Side Rails x3, Bed position Low and Locked. Fall Precautions: Yellow Socks Door Sign Patient Fall Education Report given to [Vira].
[2020-10-14 08:00] VITALS: BP 99/72
[2020-10-14] MEDS: Docusate 100mg/10ml Liq NG SCH ×2 (08:07→17:26)
[2020-10-14] MEDS: Spironolactone 25mg tab GT SCH (08:08)
[2020-10-14] MEDS: Furosemide 40mg tab GT SCH (08:08)
[2020-10-14] MEDS: Multivitamins W/Minerals 15 ML UDC NG SCH (08:08)
[2020-10-14] MEDS: Zinc Sulfate 220mg GT SCH (08:08)
[2020-10-14] MEDS: LORazepam 1mg tab GT PRN (08:09)
[2020-10-14] MEDS: Ascorbic Acid 500mg tab NG SCH (08:09)
--- NOTE | 2020-10-14 10:45 | General Progress Note ---
Subjective ROS Limited/Unobtainable: No Allergies: Coded Allergies: VANCOMYCIN (Verified Allergy, Severe, hive, 09/28/20) Objective Last 24 Hour Vital Signs Date Time Temp Pulse Resp B/P (MAP) Pulse Ox O2 Delivery O2 Flow Rate FiO2 10/14/20 08:39 64 20 116/70 98 10/14/20 08:09 70 25 118/68 98 10/14/20 08:00 67 10/14/20 08:00 97.2 74 16 99/72 (81) 100 10/14/20 08:00 Mechanical Ventilator 10/14/20 08:00 60 10/14/20 07:11 67 22 60 10/14/20 04:00 60 10/14/20 04:00 98.6 95 20 119/77 (91) 98 10/14/20 04:00 Mechanical Ventilator 10/14/20 03:50 77 10/14/20 02:30 79 28 60 10/14/20 00:00 83 10/14/20 00:00 60 10/14/20 00:00 98.4 87 20 120/75 (90) 100 10/14/20 00:00 Mechanical Ventilator 10/13/20 23:50 83 10/13/20 21:44 89 29 135/82 100 10/13/20 21:14 89 29 135/82 100 10/13/20 20:00 97.9 96 18 135/82 (99) 100 10/13/20 20:00 60 10/13/20 20:00 76 14 60 10/13/20 20:00 Mechanical Ventilator 10/13/20 19:54 77 10/13/20 16:00 45 10/13/20 16:00 97.9 70 29 103/70 (81) 100 10/13/20 16:00 Mechanical Ventilator 10/13/20 16:00 74 10/13/20 13:20 63 21 40 10/13/20 12:00 62 10/13/20 12:00 Mechanical Ventilator 10/13/20 12:00 45 10/13/20 12:00 97.0 82 19 108/78 (88) 100 Intake and Output 10/13/20 10/14/20 19:00 07:00 Intake Total 920 ml 810 ml Output Total 1000 ml 1050 ml Balance -80 ml -240 ml Free Water 200 ml 150 ml Tube Feeding 720 ml 660 ml Output Urine Total 1000 ml 1050 ml # Bowel Movements 1 Height (Feet): 6 Height (Inches): 1.00 Weight (Pounds): 148 General Appearance: no apparent distress EENT: PERRL/EOMI Neck: normal alignment Cardiovascular: normal rate, regular rhythm Respiratory/Chest: decreased breath sounds Abdomen: hypoactive bowel sounds Extremities: non-tender Assessment/Plan Status: stable Assessment/Plan: Assessment/Plan Status: stable Assessment/Plan: Assessment - resp failure - s/p PEG - anemia - OBS/Dementia - sepsis - diarrhea, C Diff (-) - Azotemia, resolved - CHF - malnutrition , low albumin - leukocytosis - hypernatremia Recommendations -Vent care / support - cards and pulm follow up - supportive care - abx - PPI - TF Hima Escalante MD Oct 14, 2020 10:45
[2020-10-14 12:00] VITALS: BP 141/70
--- NOTE | 2020-10-14 15:51 | Pulmonology Progress Note ---
Subjective ROS Limited/Unobtainable: No Constitutional: Denies: fever Gastrointestinal/Abdominal: Reports: diarrhea Allergies: Coded Allergies: VANCOMYCIN (Verified Allergy, Severe, hive, 09/28/20) All Systems: reviewed and negative except above Objective Last 24 Hour Vital Signs Date Time Temp Pulse Resp B/P (MAP) Pulse Ox O2 Delivery O2 Flow Rate FiO2 10/14/20 15:13 68 22 60 10/14/20 12:00 98.0 83 21 141/70 (93) 100 10/14/20 12:00 60 10/14/20 12:00 82 10/14/20 12:00 Mechanical Ventilator 10/14/20 11:14 80 20 60 10/14/20 08:39 64 20 116/70 98 10/14/20 08:09 70 25 118/68 98 10/14/20 08:00 67 10/14/20 08:00 97.2 74 16 99/72 (81) 100 10/14/20 08:00 Mechanical Ventilator 10/14/20 08:00 60 10/14/20 07:11 67 22 60 10/14/20 04:00 60 10/14/20 04:00 98.6 95 20 119/77 (91) 98 10/14/20 04:00 Mechanical Ventilator 10/14/20 03:50 77 10/14/20 02:30 79 28 60 10/14/20 00:00 83 10/14/20 00:00 60 10/14/20 00:00 98.4 87 20 120/75 (90) 100 10/14/20 00:00 Mechanical Ventilator 10/13/20 23:50 83 10/13/20 21:44 89 29 135/82 100 10/13/20 21:14 89 29 135/82 100 10/13/20 20:00 97.9 96 18 135/82 (99) 100 10/13/20 20:00 60 10/13/20 20:00 76 14 60 10/13/20 20:00 Mechanical Ventilator 10/13/20 19:54 77 10/13/20 16:00 45 10/13/20 16:00 97.9 70 29 103/70 (81) 100 10/13/20 16:00 Mechanical Ventilator 10/13/20 16:00 74 Intake and Output 10/13/20 10/14/20 19:00 07:00 Intake Total 920 ml 810 ml Output Total 1000 ml 1050 ml Balance -80 ml -240 ml Free Water 200 ml 150 ml Tube Feeding 720 ml 660 ml Output Urine Total 1000 ml 1050 ml # Bowel Movements 1 Current Medications Medications (Trade) Dose Ordered Sig/Aleksander Route PRN Reason Start Time Stop Time Status Last Admin Dose Admin Acetaminophen (Tylenol) 650 mg Q6H PRN NG pain 1-6 10/08/20 15:30 11/07/20 15:14 Ascorbic Acid (Vitamin C) 250 mg DAILY NG 09/26/20 09:00 10/18/20 08:59 10/14/20 08:09 Bisacodyl (Dulcolax) 10 mg DAILYPRN PRN RECTAL Constipation 10/11/20 12:00 01/09/21 11:59 Diphenhydramine HCl (Benadryl) 25 mg Q6H PRN IVP Itching 09/27/20 12:15 10/27/20 12:14 10/10/20 22:15 Diphenoxylate HCl/ Atropine (Lomotil) 2.5 mg Q4H PRN ORAL Diarrhea 09/20/20 08:15 10/20/20 08:14 Docusate Sodium (Colace) 100 mg TWICE A DAY NG 10/11/20 18:00 11/10/20 17:59 10/14/20 08:07 Famotidine (Pepcid) 20 mg BID GT 10/04/20 09:00 01/02/21 08:59 10/14/20 08:08 Finasteride (Proscar) 5 mg DAILY ORAL 09/13/20 09:00 12/12/20 08:59 10/14/20 08:08 Furosemide (Lasix) 40 mg DAILY GT 10/11/20 09:00 11/10/20 08:59 10/14/20 08:08 Hydromorphone HCl (Dilaudid) 0.5 mg Q4H PRN IVP SEVERE PAIN 10/08/20 15:18 10/15/20 15:17 Lorazepam (Ativan) 1 mg Q4H PRN GT For Anxiety 10/07/20 22:00 10/14/20 21:59 10/14/20 08:09 Multivitamins (Multivitamins W/ Minerals 15ml Liquid) 15 ml DAILY NG 09/26/20 09:00 10/26/20 08:59 10/14/20 08:08 Spironolactone (Aldactone) 25 mg DAILY GT 10/05/20 09:00 11/04/20 08:59 10/14/20 08:08 Tamsulosin HCl (Flomax) 0.4 mg BEDTIME ORAL 10/11/20 21:00 11/10/20 20:59 10/13/20 21:14 Valproic Acid (Depakene) 1,000 mg BEDTIME GT 10/06/20 21:00 10/31/20 20:59 10/13/20 21:13 Zinc Sulfate (Zinc Sulfate) 220 mg DAILY GT 10/06/20 09:00 01/04/21 08:59 10/14/20 08:08 Assessment/Plan Assessment/Plan Pulmonary Progress Note Subjective Allergies: Coded Allergies: No Known Allergies (Unverified , 09/10/20) Subjective remains confused stable oxygen requirements Persistant infiltrates AB per ID TF to SNF once stable CXR improving infiltrates Objective Vital Signs noted Height (Feet): 5 Height (Inches): 7.00 Weight (Pounds): 121 Objective WDWN NAD reduced breath sounds bilaterally without rhonchi or wheeze [id number] without MRG NABS nontender no HSM no CCE nonfocal remains confused Assessment/Plan Assessment/Plan: IMPRESSION: 1. Acute renal failure. 2. Hypernatremia improving 3. Leukocytosis. 4. Pneumonia/ sepsis. 5. Hypotension. 6. Dementia. 7. Acute on chronic encephalopathy. 8. bcx staph Epi 9. MRSA colonized PLAN continue current ventilator settings taper fio2 ID noted; monitor follow up on antibiotics monitor oxygen needs off load as able monitor lytes position change monitor imaging d/w consultants and nursing remains critical trach care dc plan to subacute impression, plan, and exam edited and reviewed in detail care discussed with Madi Richard MD Oct 14, 2020 15:51
[2020-10-14 16:00] VITALS: BP 102/71
--- NOTE | 2020-10-14 17:05 | Urology Progress Note ---
Assessment/Plan Status: stable Assessment/Plan: 1. Gross hematuria. 2. Pyuria and possible UTI. 3. Proteinuria. 4. BPH. 5. Urinary retention. 6. Probable neurogenic bladder. 7. Possible sepsis. monitor clinically maintain andrade, secured to pt's leg hand irrigated and do PRN restarted on abx, add antifungal? per ID flomax and proscar cysto electively andrade indwelling x 4 weeks remove andrade in AM see if able to void and exchange if needed Subjective Allergies: Coded Allergies: VANCOMYCIN (Verified Allergy, Severe, hive, 09/28/20) Subjective remains on vent, trach 09/27 Objective Last 24 Hour Vital Signs Date Time Temp Pulse Resp B/P (MAP) Pulse Ox O2 Delivery O2 Flow Rate FiO2 10/14/20 16:00 60 10/14/20 16:00 97.7 69 22 102/71 (81) 100 10/14/20 16:00 Mechanical Ventilator 10/14/20 16:00 69 10/14/20 15:13 68 22 60 10/14/20 12:00 98.0 83 21 141/70 (93) 100 10/14/20 12:00 60 10/14/20 12:00 82 10/14/20 12:00 Mechanical Ventilator 10/14/20 11:14 80 20 60 10/14/20 08:39 64 20 116/70 98 10/14/20 08:09 70 25 118/68 98 10/14/20 08:00 67 10/14/20 08:00 97.2 74 16 99/72 (81) 100 10/14/20 08:00 Mechanical Ventilator 10/14/20 08:00 60 10/14/20 07:11 67 22 60 10/14/20 04:00 60 10/14/20 04:00 98.6 95 20 119/77 (91) 98 10/14/20 04:00 Mechanical Ventilator 10/14/20 03:50 77 10/14/20 02:30 79 28 60 10/14/20 00:00 83 10/14/20 00:00 60 10/14/20 00:00 98.4 87 20 120/75 (90) 100 10/14/20 00:00 Mechanical Ventilator 10/13/20 23:50 83 10/13/20 21:44 89 29 135/82 100 10/13/20 21:14 89 29 135/82 100 10/13/20 20:00 97.9 96 18 135/82 (99) 100 10/13/20 20:00 60 10/13/20 20:00 76 14 60 10/13/20 20:00 Mechanical Ventilator 10/13/20 19:54 77 Intake and Output 10/13/20 10/14/20 19:00 07:00 Intake Total 920 ml 810 ml Output Total 1000 ml 1050 ml Balance -80 ml -240 ml Free Water 200 ml 150 ml Tube Feeding 720 ml 660 ml Output Urine Total 1000 ml 1050 ml # Bowel Movements 1 Microbiology Date/Time Source Procedure Growth Status 10/09/20 21:17 Urine,Clean Catch Urine Culture - Final Reena Tropicalis Complete 10/09/20 18:00 Sputum Gram Stain - Final Complete 10/09/20 18:00 Sputum Culture - Final Klebsiella Pneumoniae Usual Respiratory Louisa Complete 09/18/20 18:30 Stool Clostridium difficile Toxin Assay - Final Complete 09/17/20 12:58 Blood Blood Culture - Final NO GROWTH AFTER 5 DAYS Complete 09/10/20 17:15 Rectum VRE Culture - Final Enterococcus Faecalis - Vre Complete Current Medications Medications (Trade) Dose Ordered Sig/Aleksander Route PRN Reason Start Time Stop Time Status Last Admin Dose Admin Acetaminophen (Tylenol) 650 mg Q6H PRN NG pain 1-6 10/08/20 15:30 11/07/20 15:14 Ascorbic Acid (Vitamin C) 250 mg DAILY NG 09/26/20 09:00 10/18/20 08:59 10/14/20 08:09 Bisacodyl (Dulcolax) 10 mg DAILYPRN PRN RECTAL Constipation 10/11/20 12:00 01/09/21 11:59 Diphenhydramine HCl (Benadryl) 25 mg Q6H PRN IVP Itching 09/27/20 12:15 10/27/20 12:14 10/10/20 22:15 Diphenoxylate HCl/ Atropine (Lomotil) 2.5 mg Q4H PRN ORAL Diarrhea 09/20/20 08:15 10/20/20 08:14 Docusate Sodium (Colace) 100 mg TWICE A DAY NG 10/11/20 18:00 11/10/20 17:59 10/14/20 08:07 Famotidine (Pepcid) 20 mg BID GT 10/04/20 09:00 01/02/21 08:59 10/14/20 08:08 Finasteride (Proscar) 5 mg DAILY ORAL 09/13/20 09:00 12/12/20 08:59 10/14/20 08:08 Furosemide (Lasix) 40 mg DAILY GT 10/11/20 09:00 11/10/20 08:59 10/14/20 08:08 Hydromorphone HCl (Dilaudid) 0.5 mg Q4H PRN IVP SEVERE PAIN 10/08/20 15:18 10/15/20 15:17 Lorazepam (Ativan) 1 mg Q4H PRN GT For Anxiety 10/07/20 22:00 10/14/20 21:59 10/14/20 08:09 Multivitamins (Multivitamins W/ Minerals 15ml Liquid) 15 ml DAILY NG 09/26/20 09:00 10/26/20 08:59 10/14/20 08:08 Spironolactone (Aldactone) 25 mg DAILY GT 10/05/20 09:00 11/04/20 08:59 10/14/20 08:08 Tamsulosin HCl (Flomax) 0.4 mg BEDTIME ORAL 10/11/20 21:00 11/10/20 20:59 10/13/20 21:14 Valproic Acid (Depakene) 1,000 mg BEDTIME GT 10/06/20 21:00 10/31/20 20:59 10/13/20 21:13 Zinc Sulfate (Zinc Sulfate) 220 mg DAILY GT 10/06/20 09:00 01/04/21 08:59 10/14/20 08:08 Height (Feet): 6 Height (Inches): 1.00 Weight (Pounds): 148 Objective exam stable urine clearing Levi Brunson MD Oct 14, 2020 17:05
--- NOTE | 2020-10-14 18:11 | Surgery Progress Note ---
Surgery Progress Note Subjective Procedure Performed tracheostomy Additional Comments leyla cute events Objective Last 24 Hour Vital Signs Date Time Temp Pulse Resp B/P (MAP) Pulse Ox O2 Delivery O2 Flow Rate FiO2 10/14/20 16:00 60 10/14/20 16:00 97.7 69 22 102/71 (81) 100 10/14/20 16:00 Mechanical Ventilator 10/14/20 16:00 69 10/14/20 15:13 68 22 60 10/14/20 12:00 98.0 83 21 141/70 (93) 100 10/14/20 12:00 60 10/14/20 12:00 82 10/14/20 12:00 Mechanical Ventilator 10/14/20 11:14 80 20 60 10/14/20 08:39 64 20 116/70 98 10/14/20 08:09 70 25 118/68 98 10/14/20 08:00 67 10/14/20 08:00 97.2 74 16 99/72 (81) 100 10/14/20 08:00 Mechanical Ventilator 10/14/20 08:00 60 10/14/20 07:11 67 22 60 10/14/20 04:00 60 10/14/20 04:00 98.6 95 20 119/77 (91) 98 10/14/20 04:00 Mechanical Ventilator 10/14/20 03:50 77 10/14/20 02:30 79 28 60 10/14/20 00:00 83 10/14/20 00:00 60 10/14/20 00:00 98.4 87 20 120/75 (90) 100 10/14/20 00:00 Mechanical Ventilator 10/13/20 23:50 83 10/13/20 21:44 89 29 135/82 100 10/13/20 21:14 89 29 135/82 100 10/13/20 20:00 97.9 96 18 135/82 (99) 100 10/13/20 20:00 60 10/13/20 20:00 76 14 60 10/13/20 20:00 Mechanical Ventilator 10/13/20 19:54 77 I&O Intake and Output 10/13/20 10/14/20 19:00 07:00 Intake Total 920 ml 810 ml Output Total 1000 ml 1050 ml Balance -80 ml -240 ml Free Water 200 ml 150 ml Tube Feeding 720 ml 660 ml Output Urine Total 1000 ml 1050 ml # Bowel Movements 1 Dressing: saturated Cardiovascular: RSR Respiratory: decreased breath sounds Abdomen: soft, non-tender, present bowel sounds Extremities: no edema, no tenderness, no cyanosis Plan Problems: (1) Fever Assessment & Plan: maybe developing pneumonia cont abx pulm input thank you (2) Decubitus skin ulcer Assessment & Plan: Patient identified on admission to have multiple scabs on the left arm. mild open scabs with eschar. no drainage. no significant cellulitis. bruising no bilateral extremities noted. no signs of abuse. likely from agitation Sacral coccygeal noted to have a DTI 4.3X2.5CM. which is dark purple . RECOMMEND-CLEAN WITH SALINE, PAT DRY AND APPLY CALAZINE. COVER WITH OPTIFOAM DRESSING. REPLACE EVERY 3 DAYS OR NEEDED LEFT ISCHIUM- STAGE I PRESSURE ULCER MEASURES 4.5X1.7CM. NON-BLANCHABLE ERYTHEMA. RECOMMEND- APPLY CALAZINE AND COVER WITH OPTIFOAM DRESSING. REPLACE EVERY 7 DAYS. Turn q2h off load pressure with pillow off load heels nutritional optimization SEED TECHNICIAN eval will follow with recs thank you (3) Malnutrition Assessment & Plan: Mr. Roman is a 70 year old male BIBA to ED of [facility] on 09/10/2020 around 14:00 due to fever. He was found to be hypotensive 91/55 (67), Temp: 100.0, leukocytosis 20.8k and subsequently transferred to ICU for septic shock. The blood culture is reportedly positive for gram positive cocci. NG tube was placed, KUB confirmed the placement to day. Pt is clinically stable with leukocytosis 20.1, improved BUN and creatine, stable hemodynamic without vasopressor. Findings: Mr. Roman is disoriented. He does ot follow commands at this time. Oral cavity is noted to be dried blood concretion likely from NG trauma. No active bleeding site is seen. Due to his level f alertness, already NG tube is in placed, PO trial was not done at this time. Transferred out ICU last night. He is non on tele. Issues: multiple wounds, s.p balaji/nasal/pharyngeal bleeding with blood culture Gram positive cocci leukocytosis trending down from 20k-20k-16k BUN/Creatine trending down from 93/1.9-79/1.3-54/1.1 Temp: 98.1~98.7, Pulse: 62~72, BP: 105/67~120/48, SPO2 98~100% on 2 liter S: Oral cavity is better condition comparison to yesterday. The mucosa is severely erythema without active bleeding. Limited level of alertness for direct therapy. NG in placed O: 1. Laryngeal palpation to trigger spontaneous cough and swallow: Pt triggered cough with laryngeal palpation. Approximately 5~10 seconds after coughing, he triggered swallow. based on this observation, he presents with copious secretion in pharynx and larynx. He continued to have poor secretion management at laryngeal level at this time. NO PO trial was given due to poor secretion at the level of air way with low level of alertness. A: 1. Probable aspiration of his own secretion with poor ability to cough and swallow 2. Dysphagia P: 1. NPO for now 2. Observe his secretion, and level of alertness for PO readiness. DAILY ESTIMATED NEEDS: Needs based on Wound, underweight/ 55kg 30-35 kcals/kg 6317-5621 total kcals 1.25-2 g protein/kg 69-110 g total protein 25-30 mL/kg 7192-9930 total fluid mLs NUTRITION DIAGNOSIS: Increased kcal/prot needs R/T wound healing and underweight status as evidenced by pt admitted w/ wounds including DTI 2 coccyx and stage 1 @ lt ischium, pt @ 73% IBW w/ low BMI per guidelines, s/p NGT insertion, on NGT feeds. CURRENT TF:Jevity 1.2 @ 50ml/hr x 24 hrs ENTERAL NUTRITION RECOMMENDATIONS: Jevity 1.2 @ 60ml/hr x 24 hrs to provide 1440ml, 1728kcal, 80g prot, 1160ml free water * As medically appropriate, increase goal rate to 60ml/hr x 24 hrs to meet 100% est kcal/prot needs * HOB over 30 degrees/ without IVF, H2O flush of 100ml q 8hrs ADDITIONAL RECOMMENDATIONS: * Calibrated daily bedscale wt Per SNF: HT=70" * Wound healing: TF rec @ goal will provide 100% RDI add Vit C 250mg QD, ZnSO4 220mg QD x 10days, Davidson BID via NGT * Monitor BGs, need for NISS w/ TF * Monitor lytes, replete as needed- high risk for refeeding syndrome -> check f/up phos and mag (4) Severe sepsis Assessment & Plan: will likely need trach and peg. patient needs protected airway and nutrition full code no family and unable to consent medically necessary. will plan soon (5) Open upper arm wound (6) Hematuria Assessment & Plan: as per urology Aubrey Gutierrez Oct 14, 2020 18:11
--- NOTE | 2020-10-14 19:12 | NUR ---
NURSE HAND-OFF REPORT: Important Events on Shift:NA Patient Status: Stable Diet: Gtrube Jevity 1.2 @60ml/hr Pending Orders:NA Pending Results/Labs:NA Pending MD notification:NA Latest Vital Signs: Temperature 97.7 , Pulse 69 , B/P 102 /71 , Respiratory Rate 22 , O2 SAT 100 , Mechanical Ventilator, O2 Flow Rate 45.0 . Vital Sign Comment: Stable EKG Rhythm: Sinus Rhythm Rhythm change?: N MD Notified?: N -Dr. Gabriel linares MD Response: No New Orders Received Latest Schultz Fall Score: 70 Fall Risk: High Risk Safety Measures: Call light Within Reach, Bed Alarm Zone 2, Side Rails Side Rails x3, Bed position Low and Locked. Fall Precautions: Yellow Socks Door Sign Patient Fall Education Report given to ARTEMIO Brennan.
--- NOTE | 2020-10-14 19:21 | NUR ---
NURSE NOTES: Pt received from ARTEMIO Constantino alert and oriented x1 to name only, nonverbal with no acute s/s of distress noted. IV site asymptomatic and patent on L hand 22g, saline lock. Trach to vent Shiley 8 AC 12 TV 450 60% FiO2 saturating at 99%. Gtube feed tolerated at Jevity 1.2 at 60. Rae catheter draining to yellow urine. monitoring and evaluation advisor on - Sinus Rhythm. Bed in lowest position, bed alarm on. Call light and belongings within reach.
[2020-10-14 20:00] VITALS: BP 133/91
[2020-10-14] MEDS: Tamsulosin 0.4mg cap ORAL SCH (20:19)
[2020-10-14] MEDS: Valproic Acid 250mg/5ml Liquid GT SCH (20:19)
[2020-10-14] MEDS ORDERED: LORazepam Inj 2mg/ml 1ml IV PRN (22:30)
[2020-10-15] VITALS: BP 128/89
[2020-10-15] MEDS: LORazepam 1mg tab ORAL PRN ×2 (00:31→11:14)
[2020-10-15 04:00] VITALS: BP 116/79
--- NOTE | 2020-10-15 04:13 | Cardiology Progress Note ---
Subjective DATE OF SERVICE: Oct 14, 2020 Remains on vent via trach, requiring 40-60% oxygen delivery now. Remains congested; less edematous. Fluid balance negative on current diuretic dose. BP remains controlled. Monitor: sinus/ sinus tachycardia. (10/08) 7.48/44/75 Objective Last 24 Hour Vital Signs Date Time Temp Pulse Resp B/P (MAP) Pulse Ox O2 Delivery O2 Flow Rate FiO2 10/15/20 03:12 100 28 60 10/15/20 01:01 106 31 133/91 99 10/15/20 00:31 106 31 133/91 99 10/15/20 00:00 Mechanical Ventilator 10/15/20 00:00 105 10/15/20 00:00 98.4 97 21 128/89 (102) 98 10/14/20 22:50 106 31 60 10/14/20 20:00 Mechanical Ventilator 10/14/20 20:00 98.4 99 24 133/91 (105) 99 10/14/20 20:00 60 10/14/20 19:21 92 10/14/20 19:03 95 27 60 10/14/20 16:00 60 10/14/20 16:00 97.7 69 22 102/71 (81) 100 10/14/20 16:00 Mechanical Ventilator 10/14/20 16:00 69 10/14/20 15:13 68 22 60 10/14/20 12:00 98.0 83 21 141/70 (93) 100 10/14/20 12:00 60 10/14/20 12:00 82 10/14/20 12:00 Mechanical Ventilator 10/14/20 11:14 80 20 60 10/14/20 08:39 64 20 116/70 98 10/14/20 08:09 70 25 118/68 98 10/14/20 08:00 67 10/14/20 08:00 97.2 74 16 99/72 (81) 100 10/14/20 08:00 Mechanical Ventilator 10/14/20 08:00 60 10/14/20 07:11 67 22 60 ROS: no change from my evaluation of 09/10/20. HEENT: Mechanically Ventilated, Thin Trach secretions RHYTHM: NSR, ST LUNGS: bilat. rhonchi and rales, trach site clean CARDIAC: normal rate, regular rhythm, normal S1 and S2 ABDOMEN: normal bowel sounds, soft, G-Tube intact EXTREMITIES: trace edema Assessment/Plan Assessment/Plan Respiratory failure with hypoxia - s/p tracheostomy Sepsis Aspiration PNA Recurring shock - recovered Diarrhea Dehydration/hypernatremia corrected Acute myocardial ischemia Acute renal failure HC assoc PNA UTI Transaminitis, acute CVA/dementia Paroxysmal sinus bradycardia and tachycardia Acute/chronic diastolic CHF now compensated with decreased BNP to 377 Severe protein/calorie malnutrition with dysphagia; now s/p PEG Hypokalemia Remains CRITICAL & GUARDED Vent support with trach care; wean down O2. Antimicrobials per ID. ?reculture for fever Replace lytes as needed. DVT prophyl Cardiac monitoring Diuresis with oral maint dose of furosemide and aldactone now; trend BNP. Madi Rios MD Oct 15, 2020 04:13
[2020-10-15 06:51] LABS: BASOPHILS % (AUTO) 0.4 % (0.0-2.0); EOSINOPHILS % (AUTO) 0.7 % (0.0-3.0); HEMATOCRIT 31.8 % (42.0-52.0); HEMOGLOBIN 10.7 G/DL (14.2-18.0); LYMPHOCYTES % (AUTO) 17.1 % (20.0-45.0); MEAN CORPUSCULAR VOLUME 87 FL (80-99); MONOCYTES % (AUTO) 8.2 % (1.0-10.0); NEUTROPHILS % (AUTO) 73.6 % (45.0-75.0); PLATELET COUNT 163 K/UL (150-450); RED BLOOD COUNT 3.64 M/UL (4.70-6.10); RED CELL DISTRIBUTION WIDTH 14.4 % (11.6-14.8); WHITE BLOOD COUNT 13.9 K/UL (4.8-10.8)
--- NOTE | 2020-10-15 07:20 | NUR ---
NURSE HAND-OFF REPORT: Important Events on Shift: Pt tolerated trach settings during shift. G tube feed tolerated. VS WNL, Pt afebrile Patient Status: Ongoing Diet: Gtube feed Pending Orders: n/a Pending Results/Labs: n/a Pending MD notification: n/a Latest Vital Signs: Temperature 97.5 , Pulse 100 , B/P 116 /79 , Respiratory Rate 22 , O2 SAT 98 , Mechanical Ventilator, O2 Flow Rate 45.0 . Vital Sign Comment: WNL EKG Rhythm: Sinus Tachycardia Rhythm change?: N MD Notified?: N -Dr. Gabriel linares MD Response: No New Orders Received Latest Schultz Fall Score: 70 Fall Risk: High Risk Safety Measures: Call light Within Reach, Bed Alarm Zone 2, Side Rails Side Rails x3, Bed position Low and Locked. Fall Precautions: Yellow Socks Door Sign Patient Fall Education Report given to ARTEMIO Constantino.
--- NOTE | 2020-10-15 07:25 | NUR ---
NURSE NOTES: Received patient report from ARTEMIO Brennan. RN alert and oriented x1 to name only, nonverbal with no acute s/s of distress noted. IV site asymptomatic and patent on L hand 22g, saline lock. Trach to vent Shiley 8 AC 12 VT 450 60% FiO2 saturating at 99%. hall monitor in place. Bed in lowest position, locked with side rails x2 up. Call light within reach.
[2020-10-15 07:35] LABS: ALANINE AMINOTRANSFERASE 27 U/L (12-78); ALBUMIN 1.8 G/DL (3.4-5.0); ALBUMIN/GLOBULIN RATIO 0.3 (1.0-2.7); ALKALINE PHOSPHATASE 77 U/L (46-116); ANION GAP 1 mmol/L (5-15); ASPARTATE AMINO TRANSFERASE 31 U/L (15-37); BILIRUBIN,TOTAL 0.4 MG/DL (0.2-1.0); BLOOD UREA NITROGEN 28 mg/dL (7-18); CARBON DIOXIDE 32 MMOL/L (21-32); CHLORIDE 104 MMOL/L (98-107); CREATININE 1.1 MG/DL (0.55-1.30); POTASSIUM 4.2 MMOL/L (3.5-5.1); SODIUM 137 MMOL/L (136-145)
[2020-10-15 08:00] VITALS: BP 136/86
[2020-10-15] MEDS: Ascorbic Acid 500mg tab NG SCH (08:36)
[2020-10-15] MEDS: Docusate 100mg/10ml Liq NG SCH ×2 (08:36→17:24)
[2020-10-15] MEDS: Zinc Sulfate 220mg GT SCH (08:36)
[2020-10-15] MEDS: Furosemide 40mg tab GT SCH (08:36)
[2020-10-15] MEDS: Multivitamins W/Minerals 15 ML UDC NG SCH (08:36)
[2020-10-15] MEDS: Spironolactone 25mg tab GT SCH (08:36)
--- NOTE | 2020-10-15 08:58 | Urology Progress Note ---
Assessment/Plan Status: stable Assessment/Plan: 1. Gross hematuria. 2. Pyuria and possible UTI. 3. Proteinuria. 4. BPH. 5. Urinary retention. 6. Probable neurogenic bladder. 7. Possible sepsis. monitor clinically off abx, per ID flomax and proscar cysto electively andrade removed monitor for voiding and reinsert PRN Subjective Allergies: Coded Allergies: VANCOMYCIN (Verified Allergy, Severe, hive, 09/28/20) Subjective remains on vent, trach 09/27 andrade removed this morning Objective Last 24 Hour Vital Signs Date Time Temp Pulse Resp B/P (MAP) Pulse Ox O2 Delivery O2 Flow Rate FiO2 10/15/20 08:00 98.1 92 24 136/86 (103) 98 10/15/20 04:00 100 10/15/20 04:00 Mechanical Ventilator 10/15/20 04:00 97.5 97 22 116/79 (91) 98 10/15/20 04:00 60 10/15/20 03:12 100 28 60 10/15/20 01:01 106 31 133/91 99 10/15/20 00:31 106 31 133/91 99 10/15/20 00:00 Mechanical Ventilator 10/15/20 00:00 105 10/15/20 00:00 98.4 97 21 128/89 (102) 98 10/14/20 22:50 106 31 60 10/14/20 20:00 Mechanical Ventilator 10/14/20 20:00 98.4 99 24 133/91 (105) 99 10/14/20 20:00 60 10/14/20 19:21 92 10/14/20 19:03 95 27 60 10/14/20 16:00 60 10/14/20 16:00 97.7 69 22 102/71 (81) 100 10/14/20 16:00 Mechanical Ventilator 10/14/20 16:00 69 10/14/20 15:13 68 22 60 10/14/20 12:00 98.0 83 21 141/70 (93) 100 10/14/20 12:00 60 10/14/20 12:00 82 10/14/20 12:00 Mechanical Ventilator 10/14/20 11:14 80 20 60 Intake and Output 10/14/20 10/15/20 19:00 07:00 Intake Total 1020 ml 780 ml Output Total 900 ml 650 ml Balance 120 ml 130 ml Free Water 300 ml 120 ml Tube Feeding 720 ml 660 ml Output Urine Total 900 ml 650 ml # Bowel Movements 1 Microbiology Date/Time Source Procedure Growth Status 10/09/20 21:17 Urine,Clean Catch Urine Culture - Final Reena Tropicalis Complete 10/09/20 18:00 Sputum Gram Stain - Final Complete 10/09/20 18:00 Sputum Culture - Final Klebsiella Pneumoniae Usual Respiratory Louisa Complete 09/18/20 18:30 Stool Clostridium difficile Toxin Assay - Final Complete 09/17/20 12:58 Blood Blood Culture - Final NO GROWTH AFTER 5 DAYS Complete 09/10/20 17:15 Rectum VRE Culture - Final Enterococcus Faecalis - Vre Complete Current Medications Medications (Trade) Dose Ordered Sig/Aleksander Route PRN Reason Start Time Stop Time Status Last Admin Dose Admin Acetaminophen (Tylenol) 650 mg Q6H PRN NG pain 1-6 10/08/20 15:30 11/07/20 15:14 Ascorbic Acid (Vitamin C) 250 mg DAILY NG 09/26/20 09:00 10/18/20 08:59 10/15/20 08:36 Bisacodyl (Dulcolax) 10 mg DAILYPRN PRN RECTAL Constipation 10/11/20 12:00 01/09/21 11:59 Diphenhydramine HCl (Benadryl) 25 mg Q6H PRN IVP Itching 09/27/20 12:15 10/27/20 12:14 10/10/20 22:15 Diphenoxylate HCl/ Atropine (Lomotil) 2.5 mg Q4H PRN ORAL Diarrhea 09/20/20 08:15 10/20/20 08:14 Docusate Sodium (Colace) 100 mg TWICE A DAY NG 10/11/20 18:00 11/10/20 17:59 10/15/20 08:36 Famotidine (Pepcid) 20 mg BID GT 10/04/20 09:00 01/02/21 08:59 10/15/20 08:36 Finasteride (Proscar) 5 mg DAILY ORAL 09/13/20 09:00 12/12/20 08:59 10/15/20 08:36 Furosemide (Lasix) 40 mg DAILY GT 10/11/20 09:00 11/10/20 08:59 10/15/20 08:36 Hydromorphone HCl (Dilaudid) 0.5 mg Q4H PRN IVP SEVERE PAIN 10/08/20 15:18 10/15/20 15:17 Lorazepam (Ativan) 1 mg Q4H PRN ORAL Agitation 10/14/20 22:30 10/21/20 22:29 10/15/20 00:31 Multivitamins (Multivitamins W/ Minerals 15ml Liquid) 15 ml DAILY NG 09/26/20 09:00 10/26/20 08:59 10/15/20 08:36 Spironolactone (Aldactone) 25 mg DAILY GT 10/05/20 09:00 11/04/20 08:59 10/15/20 08:36 Tamsulosin HCl (Flomax) 0.4 mg BEDTIME ORAL 10/11/20 21:00 11/10/20 20:59 10/14/20 20:19 Valproic Acid (Depakene) 1,000 mg BEDTIME GT 10/06/20 21:00 10/31/20 20:59 10/14/20 20:19 Zinc Sulfate (Zinc Sulfate) 220 mg DAILY GT 10/06/20 09:00 01/04/21 08:59 10/15/20 08:36 Laboratory Tests 10/15/20 04:00: White Blood Count 13.9H, Red Blood Count 3.64L, Hemoglobin 10.7L, Hematocrit 31.8L, Mean Corpuscular Volume 87, Mean Corpuscular Hemoglobin 29.4, Mean Corpuscular Hemoglobin Concent 33.7, Red Cell Distribution Width 14.4, Platelet Count 163, Mean Platelet Volume 6.7, Neutrophils (%) (Auto) 73.6, Lymphocytes (%) (Auto) 17.1L, Monocytes (%) (Auto) 8.2, Eosinophils (%) (Auto) 0.7, Basophils (%) (Auto) 0.4, Sodium Level 137, Potassium Level 4.2, Chloride Level 104, Carbon Dioxide Level 32, Anion Gap 1L, Blood Urea Nitrogen 28H, Creatinine 1.1, Estimat Glomerular Filtration Rate > 60, Glucose Level 89, Calcium Level 8.0L, Magnesium Level 2.2, Total Bilirubin 0.4, Aspartate Amino Transf (AST/SGOT) 31, Alanine Aminotransferase (ALT/SGPT) 27, Alkaline Phosphatase 77, Pro-B-Type Natriuretic Peptide 904H, Total Protein 7.6, Albumin 1.8L, Globulin 5.8, Albumin/Globulin Ratio 0.3L Height (Feet): 6 Height (Inches): 1.00 Weight (Pounds): 148 Objective exam stable Levi Brunson MD Oct 15, 2020 08:58
--- NOTE | 2020-10-15 11:44 | Infectious Diseases Prog Note ---
Assessment/Plan Assessment/Plan antibiotics : none A 1. MRSA Pneumonia s/p rx COVID-19 test is negative. 2. Dementia. 3. Leukocytosis improving 4. respiratory failure s/p tracheostomy 5. allergic reaction to vancomycin resolved P 1. continue off antibiotics 2. will follow up cultures Subjective ROS Limited/Unobtainable: Yes Allergies: Coded Allergies: VANCOMYCIN (Verified Allergy, Severe, hive, 09/28/20) Objective Last 24 Hour Vital Signs Date Time Temp Pulse Resp B/P (MAP) Pulse Ox O2 Delivery O2 Flow Rate FiO2 10/15/20 11:14 91 26 136/80 100 10/15/20 08:00 60 10/15/20 08:00 92 10/15/20 08:00 Mechanical Ventilator 10/15/20 08:00 98.1 92 24 136/86 (103) 98 10/15/20 04:00 100 10/15/20 04:00 Mechanical Ventilator 10/15/20 04:00 97.5 97 22 116/79 (91) 98 10/15/20 04:00 60 10/15/20 03:12 100 28 60 10/15/20 01:01 106 31 133/91 99 10/15/20 00:31 106 31 133/91 99 10/15/20 00:00 Mechanical Ventilator 10/15/20 00:00 105 10/15/20 00:00 98.4 97 21 128/89 (102) 98 10/14/20 22:50 106 31 60 10/14/20 20:00 Mechanical Ventilator 10/14/20 20:00 98.4 99 24 133/91 (105) 99 10/14/20 20:00 60 10/14/20 19:21 92 10/14/20 19:03 95 27 60 10/14/20 16:00 60 10/14/20 16:00 97.7 69 22 102/71 (81) 100 10/14/20 16:00 Mechanical Ventilator 10/14/20 16:00 69 10/14/20 15:13 68 22 60 10/14/20 12:00 98.0 83 21 141/70 (93) 100 10/14/20 12:00 60 10/14/20 12:00 82 10/14/20 12:00 Mechanical Ventilator Height (Feet): 6 Height (Inches): 1.00 Weight (Pounds): 148 HEENT: status post trach Respiratory/Chest: lungs clear Cardiovascular: normal rate, regular rhythm, no gallop/murmur Abdomen: soft, non tender, other - GT Extremities: no edema Laboratory Tests Test 10/15/20 04:00 White Blood Count 13.9 K/UL (4.8-10.8) H Red Blood Count 3.64 M/UL (4.70-6.10) L Hemoglobin 10.7 G/DL (14.2-18.0) L Hematocrit 31.8 % (42.0-52.0) L Mean Corpuscular Volume 87 FL (80-99) Mean Corpuscular Hemoglobin 29.4 PG (27.0-31.0) Mean Corpuscular Hemoglobin Concent 33.7 G/DL (32.0-36.0) Red Cell Distribution Width 14.4 % (11.6-14.8) Platelet Count 163 K/UL (150-450) Mean Platelet Volume 6.7 FL (6.5-10.1) Neutrophils (%) (Auto) 73.6 % (45.0-75.0) Lymphocytes (%) (Auto) 17.1 % (20.0-45.0) L Monocytes (%) (Auto) 8.2 % (1.0-10.0) Eosinophils (%) (Auto) 0.7 % (0.0-3.0) Basophils (%) (Auto) 0.4 % (0.0-2.0) Sodium Level 137 MMOL/L (136-145) Potassium Level 4.2 MMOL/L (3.5-5.1) Chloride Level 104 MMOL/L (98-107) Carbon Dioxide Level 32 MMOL/L (21-32) Anion Gap 1 mmol/L (5-15) L Blood Urea Nitrogen 28 mg/dL (7-18) H Creatinine 1.1 MG/DL (0.55-1.30) Estimat Glomerular Filtration Rate > 60 mL/min (>60) Glucose Level 89 MG/DL (74-106) Calcium Level 8.0 MG/DL (8.5-10.1) L Magnesium Level 2.2 MG/DL (1.8-2.4) Total Bilirubin 0.4 MG/DL (0.2-1.0) Aspartate Amino Transf (AST/SGOT) 31 U/L (15-37) Alanine Aminotransferase (ALT/SGPT) 27 U/L (12-78) Alkaline Phosphatase 77 U/L (46-116) Pro-B-Type Natriuretic Peptide 904 pg/mL (0-125) H Total Protein 7.6 G/DL (6.4-8.2) Albumin 1.8 G/DL (3.4-5.0) L Globulin 5.8 g/dL Albumin/Globulin Ratio 0.3 (1.0-2.7) L Current Medications Medications (Trade) Dose Ordered Sig/Aleksander Route PRN Reason Start Time Stop Time Status Last Admin Dose Admin Acetaminophen (Tylenol) 650 mg Q6H PRN NG pain 1-6 10/08/20 15:30 11/07/20 15:14 Ascorbic Acid (Vitamin C) 250 mg DAILY NG 09/26/20 09:00 10/18/20 08:59 10/15/20 08:36 Bisacodyl (Dulcolax) 10 mg DAILYPRN PRN RECTAL Constipation 10/11/20 12:00 01/09/21 11:59 Diphenhydramine HCl (Benadryl) 25 mg Q6H PRN IVP Itching 09/27/20 12:15 10/27/20 12:14 10/10/20 22:15 Diphenoxylate HCl/ Atropine (Lomotil) 2.5 mg Q4H PRN ORAL Diarrhea 09/20/20 08:15 10/20/20 08:14 Docusate Sodium (Colace) 100 mg TWICE A DAY NG 10/11/20 18:00 11/10/20 17:59 10/15/20 08:36 Famotidine (Pepcid) 20 mg BID GT 10/04/20 09:00 01/02/21 08:59 10/15/20 08:36 Finasteride (Proscar) 5 mg DAILY ORAL 09/13/20 09:00 12/12/20 08:59 10/15/20 08:36 Furosemide (Lasix) 40 mg DAILY GT 10/11/20 09:00 11/10/20 08:59 10/15/20 08:36 Hydromorphone HCl (Dilaudid) 0.5 mg Q4H PRN IVP SEVERE PAIN 10/08/20 15:18 10/15/20 15:17 Lorazepam (Ativan) 1 mg Q4H PRN ORAL Agitation 10/14/20 22:30 10/21/20 22:29 10/15/20 11:14 Multivitamins (Multivitamins W/ Minerals 15ml Liquid) 15 ml DAILY NG 09/26/20 09:00 10/26/20 08:59 10/15/20 08:36 Spironolactone (Aldactone) 25 mg DAILY GT 10/05/20 09:00 11/04/20 08:59 10/15/20 08:36 Tamsulosin HCl (Flomax) 0.4 mg BEDTIME ORAL 10/11/20 21:00 11/10/20 20:59 10/14/20 20:19 Valproic Acid (Depakene) 1,000 mg BEDTIME GT 10/06/20 21:00 10/31/20 20:59 10/14/20 20:19 Zinc Sulfate (Zinc Sulfate) 220 mg DAILY GT 10/06/20 09:00 01/04/21 08:59 10/15/20 08:36 Martha Collins MD Oct 15, 2020 11:44
[2020-10-15 12:00] VITALS: BP 136/80
--- NOTE | 2020-10-15 12:40 | NUR ---
NURSE NOTES: Per Dr Brunson. F/C taken out at 0800. Urinary retention checked via bladder scan with only 97mL max residual. F/C discontinued. Will continue to monitor.
--- NOTE | 2020-10-15 13:58 | NUR ---
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 97.8 HR 88 RR 26 B/P136/80 AC 12 TV 400 FIO2 60% PEEP 7 BUN 28 WBC 13.9 IS: LASIX GT COLACE GT FLOMAX GT STEP DOWN STATUS
[2020-10-15 16:00] VITALS: BP 122/80
--- NOTE | 2020-10-15 17:23 | Surgery Progress Note ---
Surgery Progress Note Subjective Procedure Performed tracheostomy Additional Comments no n/v labs stable exam unchanged trach okay weaning Objective Last 24 Hour Vital Signs Date Time Temp Pulse Resp B/P (MAP) Pulse Ox O2 Delivery O2 Flow Rate FiO2 10/15/20 16:00 Mechanical Ventilator 10/15/20 16:00 97.5 89 26 122/80 (94) 98 10/15/20 16:00 60 10/15/20 16:00 80 10/15/20 15:10 82 26 60 10/15/20 12:00 97.8 88 26 136/80 (98) 98 10/15/20 12:00 76 10/15/20 12:00 Mechanical Ventilator 10/15/20 12:00 60 10/15/20 11:44 84 24 126/82 100 10/15/20 11:14 91 26 136/80 100 10/15/20 11:10 77 24 60 10/15/20 08:00 60 10/15/20 08:00 92 10/15/20 08:00 Mechanical Ventilator 10/15/20 08:00 98.1 92 24 136/86 (103) 98 10/15/20 07:20 91 28 60 10/15/20 04:00 100 10/15/20 04:00 Mechanical Ventilator 10/15/20 04:00 97.5 97 22 116/79 (91) 98 10/15/20 04:00 60 10/15/20 03:12 100 28 60 10/15/20 01:01 106 31 133/91 99 10/15/20 00:31 106 31 133/91 99 10/15/20 00:00 Mechanical Ventilator 10/15/20 00:00 105 10/15/20 00:00 98.4 97 21 128/89 (102) 98 10/14/20 22:50 106 31 60 10/14/20 20:00 Mechanical Ventilator 10/14/20 20:00 98.4 99 24 133/91 (105) 99 10/14/20 20:00 60 10/14/20 19:21 92 10/14/20 19:03 95 27 60 I&O Intake and Output 10/14/20 10/15/20 19:00 07:00 Intake Total 1020 ml 780 ml Output Total 900 ml 650 ml Balance 120 ml 130 ml Free Water 300 ml 120 ml Tube Feeding 720 ml 660 ml Output Urine Total 900 ml 650 ml # Bowel Movements 1 Dressing: saturated Cardiovascular: RSR Respiratory: decreased breath sounds Abdomen: soft, non-tender, present bowel sounds Extremities: no tenderness, no cyanosis Laboratory Tests Test 10/15/20 04:00 White Blood Count 13.9 K/UL (4.8-10.8) H Red Blood Count 3.64 M/UL (4.70-6.10) L Hemoglobin 10.7 G/DL (14.2-18.0) L Hematocrit 31.8 % (42.0-52.0) L Mean Corpuscular Volume 87 FL (80-99) Mean Corpuscular Hemoglobin 29.4 PG (27.0-31.0) Mean Corpuscular Hemoglobin Concent 33.7 G/DL (32.0-36.0) Red Cell Distribution Width 14.4 % (11.6-14.8) Platelet Count 163 K/UL (150-450) Mean Platelet Volume 6.7 FL (6.5-10.1) Neutrophils (%) (Auto) 73.6 % (45.0-75.0) Lymphocytes (%) (Auto) 17.1 % (20.0-45.0) L Monocytes (%) (Auto) 8.2 % (1.0-10.0) Eosinophils (%) (Auto) 0.7 % (0.0-3.0) Basophils (%) (Auto) 0.4 % (0.0-2.0) Sodium Level 137 MMOL/L (136-145) Potassium Level 4.2 MMOL/L (3.5-5.1) Chloride Level 104 MMOL/L (98-107) Carbon Dioxide Level 32 MMOL/L (21-32) Anion Gap 1 mmol/L (5-15) L Blood Urea Nitrogen 28 mg/dL (7-18) H Creatinine 1.1 MG/DL (0.55-1.30) Estimat Glomerular Filtration Rate > 60 mL/min (>60) Glucose Level 89 MG/DL (74-106) Calcium Level 8.0 MG/DL (8.5-10.1) L Magnesium Level 2.2 MG/DL (1.8-2.4) Total Bilirubin 0.4 MG/DL (0.2-1.0) Aspartate Amino Transf (AST/SGOT) 31 U/L (15-37) Alanine Aminotransferase (ALT/SGPT) 27 U/L (12-78) Alkaline Phosphatase 77 U/L (46-116) Pro-B-Type Natriuretic Peptide 904 pg/mL (0-125) H Total Protein 7.6 G/DL (6.4-8.2) Albumin 1.8 G/DL (3.4-5.0) L Globulin 5.8 g/dL Albumin/Globulin Ratio 0.3 (1.0-2.7) L Plan Problems: (1) Fever Assessment & Plan: maybe developing pneumonia cont abx pulm input thank you (2) Decubitus skin ulcer Assessment & Plan: Patient identified on admission to have multiple scabs on the left arm. mild open scabs with eschar. no drainage. no significant cellulitis. bruising no bilateral extremities noted. no signs of abuse. likely from agitation Sacral coccygeal noted to have a DTI 4.3X2.5CM. which is dark purple . RECOMMEND-CLEAN WITH SALINE, PAT DRY AND APPLY CALAZINE. COVER WITH OPTIFOAM DRESSING. REPLACE EVERY 3 DAYS OR NEEDED LEFT ISCHIUM- STAGE I PRESSURE ULCER MEASURES 4.5X1.7CM. NON-BLANCHABLE ERYTHEMA. RECOMMEND- APPLY CALAZINE AND COVER WITH OPTIFOAM DRESSING. REPLACE EVERY 7 DAYS. 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 Roman is a 70 year old male [place] [facility] [place] around 14:00 due to fever. He was found to be hypotensive 91/55 (67), Temp: 100.0, leukocytosis 20.8k and subsequently transferred to ICU for septic shock. The blood culture is reportedly positive for gram positive cocci. NG tube was placed, KUB confirmed the placement to day. Pt is clinically stable with leukocytosis 20.1, improved BUN and creatine, stable hemodynamic without vasopressor. Findings: Mr. Roman is disoriented. He does ot follow commands at this time. Oral cavity is noted to be dried blood concretion likely from NG trauma. No active bleeding site is seen. Due to his level f alertness, already NG tube is in placed, PO trial was not done at this time. Transferred out ICU last night. He is non on tele. Issues: multiple wounds, s.p balaji/nasal/pharyngeal bleeding with blood culture Gram positive cocci leukocytosis trending down from 20k-20k-16k BUN/Creatine trending down from 93/1.9-79/1.3-54/1.1 Temp: 98.1~98.7, Pulse: 62~72, BP: 105/67~120/48, SPO2 98~100% on 2 liter S: Oral cavity is better condition comparison to yesterday. The mucosa is severely erythema without active bleeding. Limited level of alertness for direct therapy. NG in placed O: 1. Laryngeal palpation to trigger spontaneous cough and swallow: Pt triggered cough with laryngeal palpation. Approximately 5~10 seconds after coughing, he triggered swallow. based on this observation, he presents with copious secretion in pharynx and larynx. He continued to have poor secretion management at laryngeal level at this time. NO PO trial was given due to poor secretion at the level of air way with low level of alertness. A: 1. Probable aspiration of his own secretion with poor ability to cough and swallow 2. Dysphagia P: 1. NPO for now 2. Observe his secretion, and level of alertness for PO readiness. DAILY ESTIMATED NEEDS: Needs based on Wound, underweight/ 55kg 30-35 kcals/kg 1204-7403 total kcals 1.25-2 g protein/kg 69-110 g total protein 25-30 mL/kg 6963-9353 total fluid mLs NUTRITION DIAGNOSIS: Increased kcal/prot needs R/T wound healing and underweight status as evidenced by pt admitted w/ wounds including DTI 2 coccyx and stage 1 @ lt ischium, pt @ 73% IBW w/ low BMI per guidelines, s/p NGT insertion, on NGT feeds. CURRENT TF:Jevity 1.2 @ 50ml/hr x 24 hrs ENTERAL NUTRITION RECOMMENDATIONS: Jevity 1.2 @ 60ml/hr x 24 hrs to provide 1440ml, 1728kcal, 80g prot, 1160ml free water * As medically appropriate, increase goal rate to 60ml/hr x 24 hrs to meet 100% est kcal/prot needs * HOB over 30 degrees/ without IVF, H2O flush of 100ml q 8hrs ADDITIONAL RECOMMENDATIONS: * Calibrated daily bedscale wt Per SNF: HT=70" * Wound healing: TF rec @ goal will provide 100% RDI add Vit C 250mg QD, ZnSO4 220mg QD x 10days, Davdison BID via NGT * Monitor BGs, need for NISS w/ TF * Monitor lytes, replete as needed- high risk for refeeding syndrome -> check f/up phos and mag (4) Severe sepsis Assessment & Plan: will likely need trach and peg. patient needs protected airway and nutrition full code no family and unable to consent medically necessary. will plan soon (5) Open upper arm wound (6) Hematuria Assessment & Plan: as per urology Aubrey Gutierrez Oct 15, 2020 17:23
--- NOTE | 2020-10-15 18:44 | Pulmonology Progress Note ---
Subjective ROS Limited/Unobtainable: Yes Constitutional: Denies: fever Gastrointestinal/Abdominal: Reports: diarrhea Allergies: Coded Allergies: VANCOMYCIN (Verified Allergy, Severe, hive, 09/28/20) All Systems: reviewed and negative except above Objective Last 24 Hour Vital Signs Date Time Temp Pulse Resp B/P (MAP) Pulse Ox O2 Delivery O2 Flow Rate FiO2 10/15/20 16:00 Mechanical Ventilator 10/15/20 16:00 97.5 89 26 122/80 (94) 98 10/15/20 16:00 60 10/15/20 16:00 80 10/15/20 15:10 82 26 60 10/15/20 12:00 97.8 88 26 136/80 (98) 98 10/15/20 12:00 76 10/15/20 12:00 Mechanical Ventilator 10/15/20 12:00 60 10/15/20 11:44 84 24 126/82 100 10/15/20 11:14 91 26 136/80 100 10/15/20 11:10 77 24 60 10/15/20 08:00 60 10/15/20 08:00 92 10/15/20 08:00 Mechanical Ventilator 10/15/20 08:00 98.1 92 24 136/86 (103) 98 10/15/20 07:20 91 28 60 10/15/20 04:00 100 10/15/20 04:00 Mechanical Ventilator 10/15/20 04:00 97.5 97 22 116/79 (91) 98 10/15/20 04:00 60 10/15/20 03:12 100 28 60 10/15/20 01:01 106 31 133/91 99 10/15/20 00:31 106 31 133/91 99 10/15/20 00:00 Mechanical Ventilator 10/15/20 00:00 105 10/15/20 00:00 98.4 97 21 128/89 (102) 98 10/14/20 22:50 106 31 60 10/14/20 20:00 Mechanical Ventilator 10/14/20 20:00 98.4 99 24 133/91 (105) 99 10/14/20 20:00 60 10/14/20 19:21 92 10/14/20 19:03 95 27 60 Intake and Output 10/14/20 10/15/20 19:00 07:00 Intake Total 1020 ml 840 ml Output Total 900 ml 650 ml Balance 120 ml 190 ml Free Water 300 ml 120 ml Tube Feeding 720 ml 720 ml Output Urine Total 900 ml 650 ml # Bowel Movements 1 Laboratory Tests 10/15/20 04:00: White Blood Count 13.9H, Red Blood Count 3.64L, Hemoglobin 10.7L, Hematocrit 31.8L, Mean Corpuscular Volume 87, Mean Corpuscular Hemoglobin 29.4, Mean Corpuscular Hemoglobin Concent 33.7, Red Cell Distribution Width 14.4, Platelet Count 163, Mean Platelet Volume 6.7, Neutrophils (%) (Auto) 73.6, Lymphocytes (%) (Auto) 17.1L, Monocytes (%) (Auto) 8.2, Eosinophils (%) (Auto) 0.7, Basophils (%) (Auto) 0.4, Sodium Level 137, Potassium Level 4.2, Chloride Level 104, Carbon Dioxide Level 32, Anion Gap 1L, Blood Urea Nitrogen 28H, Creatinine 1.1, Estimat Glomerular Filtration Rate > 60, Glucose Level 89, Calcium Level 8.0L, Magnesium Level 2.2, Total Bilirubin 0.4, Aspartate Amino Transf (AST/SGOT) 31, Alanine Aminotransferase (ALT/SGPT) 27, Alkaline Phosphatase 77, Pro-B-Type Natriuretic Peptide 904H, Total Protein 7.6, Albumin 1.8L, Globulin 5.8, Albumin/Globulin Ratio 0.3L Current Medications Medications (Trade) Dose Ordered Sig/Aleksander Route PRN Reason Start Time Stop Time Status Last Admin Dose Admin Acetaminophen (Tylenol) 650 mg Q6H PRN NG pain 1-6 10/08/20 15:30 11/07/20 15:14 Ascorbic Acid (Vitamin C) 250 mg DAILY NG 09/26/20 09:00 10/18/20 08:59 10/15/20 08:36 Bisacodyl (Dulcolax) 10 mg DAILYPRN PRN RECTAL Constipation 10/11/20 12:00 01/09/21 11:59 Diphenhydramine HCl (Benadryl) 25 mg Q6H PRN IVP Itching 09/27/20 12:15 10/27/20 12:14 10/10/20 22:15 Diphenoxylate HCl/ Atropine (Lomotil) 2.5 mg Q4H PRN ORAL Diarrhea 09/20/20 08:15 10/20/20 08:14 Docusate Sodium (Colace) 100 mg TWICE A DAY NG 10/11/20 18:00 11/10/20 17:59 10/15/20 17:24 Famotidine (Pepcid) 20 mg BID GT 10/04/20 09:00 01/02/21 08:59 10/15/20 17:23 Finasteride (Proscar) 5 mg DAILY ORAL 09/13/20 09:00 12/12/20 08:59 10/15/20 08:36 Furosemide (Lasix) 40 mg DAILY GT 10/11/20 09:00 11/10/20 08:59 10/15/20 08:36 Lorazepam (Ativan) 1 mg Q4H PRN ORAL Agitation 10/14/20 22:30 10/21/20 22:29 10/15/20 11:14 Multivitamins (Multivitamins W/ Minerals 15ml Liquid) 15 ml DAILY NG 09/26/20 09:00 10/26/20 08:59 10/15/20 08:36 Spironolactone (Aldactone) 25 mg DAILY GT 10/05/20 09:00 11/04/20 08:59 10/15/20 08:36 Tamsulosin HCl (Flomax) 0.4 mg BEDTIME ORAL 10/11/20 21:00 11/10/20 20:59 10/14/20 20:19 Valproic Acid (Depakene) 1,000 mg BEDTIME GT 10/06/20 21:00 10/31/20 20:59 10/14/20 20:19 Zinc Sulfate (Zinc Sulfate) 220 mg DAILY GT 10/06/20 09:00 01/04/21 08:59 10/15/20 08:36 Assessment/Plan Assessment/Plan Pulmonary Progress Note Subjective Allergies: Coded Allergies: No Known Allergies (Unverified , 09/10/20) Subjective remains confused stable oxygen requirements Persistant infiltrates AB per ID TF to SNF once stable CXR improving infiltrates Wean PEEP/FIO2 Objective Vital Signs noted Height (Feet): 5 Height (Inches): 7.00 Weight (Pounds): 121 Objective WDWN NAD reduced breath sounds bilaterally without rhonchi or wheeze [id number] without MRG NABS nontender no HSM no CCE nonfocal remains confused Assessment/Plan Assessment/Plan: IMPRESSION: 1. Acute renal failure. 2. Hypernatremia improving 3. Leukocytosis. 4. Pneumonia/ sepsis. 5. Hypotension. 6. Dementia. 7. Acute on chronic encephalopathy. 8. bcx staph Epi 9. MRSA colonized PLAN continue current ventilator settings taper fio2 ID noted; monitor follow up on antibiotics monitor oxygen needs off load as able monitor lytes position change monitor imaging d/w consultants and nursing remains critical trach care dc plan to subacute impression, plan, and exam edited and reviewed in detail care discussed with RN Madi Elliott MD Oct 15, 2020 18:44
--- NOTE | 2020-10-15 19:10 | NUR ---
NURSE HAND-OFF REPORT: Important Events on Shift:D/C F/C Patient Status: Stable Diet: Gtube Pending Orders: NA Pending Results/Labs:NA Pending MD notification:NA Latest Vital Signs: Temperature 97.5 , Pulse 80 , B/P 122 /80 , Respiratory Rate 26 , O2 SAT 98 , Mechanical Ventilator, O2 Flow Rate 45.0 . Vital Sign Comment: Stable EKG Rhythm: Sinus Rhythm Rhythm change?: N MD Notified?: N -Dr. Gabriel linares MD Response: No New Orders Received Latest Schultz Fall Score: 70 Fall Risk: High Risk Safety Measures: Call light Within Reach, Bed Alarm Zone 2, Side Rails Side Rails x3, Bed position Low and Locked. Fall Precautions: Yellow Socks Door Sign Patient Fall Education Report given to ARTEMIO Dougherty.
--- NOTE | 2020-10-15 19:15 | NUR ---
NURSE NOTES: Received report from ARTEMIO Dodson. Pt is seen lying in bed in semi- herman' s position. Alert x 1. Alert to name. Trach to vent with settings as ordered. No signs of respiratory distress, o2 sat- 94%. Pt is sinus tachy at monitor- 110bpm but patient is agitated and restless, provide comfortable environment. Pt has no signs of pain. Pt is voiding, as per Nurse previous PVR is 97ml with urine output noted. Bed in lowest position, call light within reach. Continue to plan of care.
--- NOTE | 2020-10-15 19:30 | NUR ---
NURSE NOTES: Spoked to Dr. jay per since pt is urinating without problem after discontinuation of andrade no need to do PVR unless there is change of condition.
[2020-10-15 20:00] VITALS: BP 137/91
[2020-10-15] MEDS: Tamsulosin 0.4mg cap ORAL SCH (20:41)
[2020-10-15] MEDS: Valproic Acid 250mg/5ml Liquid GT SCH (20:41)
--- NOTE | 2020-10-15 22:02 | General Progress Note ---
Subjective Allergies: Coded Allergies: VANCOMYCIN (Verified Allergy, Severe, hive, 09/28/20) Subjective NAD calm tolerated TF Objective Last 24 Hour Vital Signs Date Time Temp Pulse Resp B/P (MAP) Pulse Ox O2 Delivery O2 Flow Rate FiO2 10/15/20 20:00 60 10/15/20 20:00 98 10/15/20 20:00 99.0 84 24 137/91 (106) 100 10/15/20 20:00 Mechanical Ventilator 10/15/20 19:02 94 29 50 10/15/20 16:00 Mechanical Ventilator 10/15/20 16:00 97.5 89 26 122/80 (94) 98 10/15/20 16:00 60 10/15/20 16:00 80 10/15/20 15:10 82 26 60 10/15/20 12:00 97.8 88 26 136/80 (98) 98 10/15/20 12:00 76 10/15/20 12:00 Mechanical Ventilator 10/15/20 12:00 60 10/15/20 11:44 84 24 126/82 100 10/15/20 11:14 91 26 136/80 100 10/15/20 11:10 77 24 60 10/15/20 08:00 60 10/15/20 08:00 92 10/15/20 08:00 Mechanical Ventilator 10/15/20 08:00 98.1 92 24 136/86 (103) 98 10/15/20 07:20 91 28 60 10/15/20 04:00 100 10/15/20 04:00 Mechanical Ventilator 10/15/20 04:00 97.5 97 22 116/79 (91) 98 10/15/20 04:00 60 10/15/20 03:12 100 28 60 10/15/20 01:01 106 31 133/91 99 10/15/20 00:31 106 31 133/91 99 10/15/20 00:00 Mechanical Ventilator 10/15/20 00:00 105 10/15/20 00:00 98.4 97 21 128/89 (102) 98 10/14/20 22:50 106 31 60 Intake and Output 10/14/20 10/15/20 19:00 07:00 Intake Total 1020 ml 840 ml Output Total 900 ml 650 ml Balance 120 ml 190 ml Free Water 300 ml 120 ml Tube Feeding 720 ml 720 ml Output Urine Total 900 ml 650 ml # Bowel Movements 1 Laboratory Tests 10/15/20 04:00: White Blood Count 13.9H, Red Blood Count 3.64L, Hemoglobin 10.7L, Hematocrit 31.8L, Mean Corpuscular Volume 87, Mean Corpuscular Hemoglobin 29.4, Mean Corpuscular Hemoglobin Concent 33.7, Red Cell Distribution Width 14.4, Platelet Count 163, Mean Platelet Volume 6.7, Neutrophils (%) (Auto) 73.6, Lymphocytes (%) (Auto) 17.1L, Monocytes (%) (Auto) 8.2, Eosinophils (%) (Auto) 0.7, Basophils (%) (Auto) 0.4, Sodium Level 137, Potassium Level 4.2, Chloride Level 104, Carbon Dioxide Level 32, Anion Gap 1L, Blood Urea Nitrogen 28H, Creatinine 1.1, Estimat Glomerular Filtration Rate > 60, Glucose Level 89, Calcium Level 8.0L, Magnesium Level 2.2, Total Bilirubin 0.4, Aspartate Amino Transf (AST/SGOT) 31, Alanine Aminotransferase (ALT/SGPT) 27, Alkaline Phosphatase 77, Pro-B-Type Natriuretic Peptide 904H, Total Protein 7.6, Albumin 1.8L, Globulin 5.8, Albumin/Globulin Ratio 0.3L Height (Feet): 6 Height (Inches): 1.00 Weight (Pounds): 148 Objective Thin WM on vent/trach calm, awake Skin: no hematoma or ecchymosis HEENT NCAT supple, (+) trach coarse ronchi RR, slightly tachy abd soft flat ND, (+) GT no edema Assessment/Plan Status: stable Assessment/Plan: Assessment - resp failure - s/p PEG - anemia - OBS/Dementia - sepsis - diarrhea, C Diff (-) - Azotemia, resolved - CHF - malnutrition , low albumin - leukocytosis - hypernatremia Recommendations -Vent care / support - cards and pulm follow up - supportive care - abx - PPI - TF Deborah Cabrera MD Oct 15, 2020 22:02
--- NOTE | 2020-10-15 23:47 | Cardiology Progress Note ---
Subjective DATE OF SERVICE: Oct 15, 2020 Remains on vent via trach, still requiring 40-60% oxygen delivery. Remains congested; less edematous. Fluid balance negative on current diuretic dose. BP remains controlled. Monitor: sinus/ sinus tachycardia. (10/08) 7.48/44/75 Objective Last 24 Hour Vital Signs Date Time Temp Pulse Resp B/P (MAP) Pulse Ox O2 Delivery O2 Flow Rate FiO2 10/15/20 22:12 96 28 50 10/15/20 20:00 60 10/15/20 20:00 98 10/15/20 20:00 99.0 84 24 137/91 (106) 100 10/15/20 20:00 Mechanical Ventilator 10/15/20 19:02 94 29 50 10/15/20 16:00 Mechanical Ventilator 10/15/20 16:00 97.5 89 26 122/80 (94) 98 10/15/20 16:00 60 10/15/20 16:00 80 10/15/20 15:10 82 26 60 10/15/20 12:00 97.8 88 26 136/80 (98) 98 10/15/20 12:00 76 10/15/20 12:00 Mechanical Ventilator 10/15/20 12:00 60 10/15/20 11:44 84 24 126/82 100 10/15/20 11:14 91 26 136/80 100 10/15/20 11:10 77 24 60 10/15/20 08:00 60 10/15/20 08:00 92 10/15/20 08:00 Mechanical Ventilator 10/15/20 08:00 98.1 92 24 136/86 (103) 98 10/15/20 07:20 91 28 60 10/15/20 04:00 100 10/15/20 04:00 Mechanical Ventilator 10/15/20 04:00 97.5 97 22 116/79 (91) 98 10/15/20 04:00 60 10/15/20 03:12 100 28 60 10/15/20 01:01 106 31 133/91 99 10/15/20 00:31 106 31 133/91 99 10/15/20 00:00 Mechanical Ventilator 10/15/20 00:00 105 10/15/20 00:00 98.4 97 21 128/89 (102) 98 ROS: no change from my evaluation of 09/10/20. HEENT: Mechanically Ventilated, Thin Trach secretions RHYTHM: NSR, ST LUNGS: bilat. rhonchi and rales, trach site clean CARDIAC: normal rate, regular rhythm, normal S1 and S2 ABDOMEN: normal bowel sounds, soft, G-Tube intact EXTREMITIES: trace edema Laboratory Tests Test 10/15/20 04:00 White Blood Count 13.9 K/UL (4.8-10.8) H Red Blood Count 3.64 M/UL (4.70-6.10) L Hemoglobin 10.7 G/DL (14.2-18.0) L Hematocrit 31.8 % (42.0-52.0) L Mean Corpuscular Volume 87 FL (80-99) Mean Corpuscular Hemoglobin 29.4 PG (27.0-31.0) Mean Corpuscular Hemoglobin Concent 33.7 G/DL (32.0-36.0) Red Cell Distribution Width 14.4 % (11.6-14.8) Platelet Count 163 K/UL (150-450) Mean Platelet Volume 6.7 FL (6.5-10.1) Neutrophils (%) (Auto) 73.6 % (45.0-75.0) Lymphocytes (%) (Auto) 17.1 % (20.0-45.0) L Monocytes (%) (Auto) 8.2 % (1.0-10.0) Eosinophils (%) (Auto) 0.7 % (0.0-3.0) Basophils (%) (Auto) 0.4 % (0.0-2.0) Sodium Level 137 MMOL/L (136-145) Potassium Level 4.2 MMOL/L (3.5-5.1) Chloride Level 104 MMOL/L (98-107) Carbon Dioxide Level 32 MMOL/L (21-32) Anion Gap 1 mmol/L (5-15) L Blood Urea Nitrogen 28 mg/dL (7-18) H Creatinine 1.1 MG/DL (0.55-1.30) Estimat Glomerular Filtration Rate > 60 mL/min (>60) Glucose Level 89 MG/DL (74-106) Calcium Level 8.0 MG/DL (8.5-10.1) L Magnesium Level 2.2 MG/DL (1.8-2.4) Total Bilirubin 0.4 MG/DL (0.2-1.0) Aspartate Amino Transf (AST/SGOT) 31 U/L (15-37) Alanine Aminotransferase (ALT/SGPT) 27 U/L (12-78) Alkaline Phosphatase 77 U/L (46-116) Pro-B-Type Natriuretic Peptide 904 pg/mL (0-125) H Total Protein 7.6 G/DL (6.4-8.2) Albumin 1.8 G/DL (3.4-5.0) L Globulin 5.8 g/dL Albumin/Globulin Ratio 0.3 (1.0-2.7) L Assessment/Plan Assessment/Plan Respiratory failure with hypoxia - s/p tracheostomy Sepsis Aspiration PNA Recurring shock - recovered Diarrhea Dehydration/hypernatremia corrected Acute myocardial ischemia Acute renal failure HC assoc PNA UTI Transaminitis, acute CVA/dementia Paroxysmal sinus bradycardia and tachycardia Acute/chronic diastolic CHF now compensated; recent increase in BNP noted. Severe protein/calorie malnutrition with dysphagia; now s/p PEG Hypokalemia Remains CRITICAL & GUARDED Vent support with trach care; wean down O2. Antimicrobials per ID. ?reculture for fever Replace lytes as needed. DVT prophyl Cardiac monitoring Diuresis with oral maint dose of furosemide and aldactone now; trend BNP. Check CXR. O2 taper Madi Rios MD Oct 15, 2020 23:47
--- NOTE | 2020-10-15 23:56 | NUR ---
NURSE NOTES: Pt is sleeping in bed, with no signs of respiratory distress. O2 sat- 100%. No agitation/ restless noted at this time. Bed in lowest position, call light within reach. Bedlocked. Continue current management.
[2020-10-16] VITALS: BP 127/87
--- NOTE | 2020-10-16 00:30 | Diagnostic Imaging Report ---
EXAM: XR Chest, 1 View CLINICAL HISTORY: ABN CHST TECHNIQUE: Frontal view of the chest. COMPARISON: 10/09/2020 FINDINGS: Lungs: Bilateral left midlung and right medial base consolidative opacities mildly improved since prior. Retrocardiac atelectasis without or with consolidation. Pleural space: Small left pleural effusion. No pneumothorax. Heart: Unremarkable. No cardiomegaly. Mediastinum: Unremarkable. Bones/joints: No acute abnormality Tubes, lines and devices: Unchanged tracheostomy. Possible percutaneous gastrostomy tube. IMPRESSION: 1. Unchanged tracheostomy. 2. Bilateral left midlung and right medial base consolidative opacities mildly improved since prior. 3. Retrocardiac atelectasis without or with consolidation. 4. Small left pleural effusion. 5. Possible percutaneous gastrostomy tube.
[2020-10-16] MEDS: LORazepam 1mg tab ORAL PRN ×2 (01:38→19:16)
[2020-10-16 04:00] VITALS: BP 110/78
--- NOTE | 2020-10-16 05:34 | NUR ---
NURSE NOTES: Pt is sleeping, not in respiratory distress. o2 sat-99%. Continue to plan of care.
--- NOTE | 2020-10-16 06:59 | NUR ---
NURSE HAND-OFF REPORT: Important Events on Shift: Pt is stable, for discharge planning- pending placement, CXR done- improving Patient Status: Stable Diet: GTF Pending Orders: None Pending Results/Labs: None Pending MD notification: None Latest Vital Signs: Temperature 98.6 , Pulse 99 , B/P 110 /78 , Respiratory Rate 29 , O2 SAT 100 , Mechanical Ventilator, O2 Flow Rate 45.0 . Vital Sign Comment: WNL EKG Rhythm: Sinus Rhythm Rhythm change?: N MD Notified?: N -Dr. Gabriel linares MD Response: No New Orders Received Latest Schultz Fall Score: 70 Fall Risk: High Risk Safety Measures: Call light Within Reach, Bed Alarm Zone 2, Side Rails Side Rails x3, Bed position Low and Locked. Fall Precautions: Yellow Socks Door Sign Patient Fall Education Report given to [ARTEMIO Victor].
[2020-10-16 08:00] VITALS: BP 117/75
--- NOTE | 2020-10-16 08:02 | Urology Progress Note ---
Assessment/Plan Status: stable Assessment/Plan: 1. Gross hematuria. 2. Pyuria and possible UTI. 3. Proteinuria. 4. BPH. 5. Urinary retention. 6. Probable neurogenic bladder. 7. Possible sepsis. monitor clinically off abx, per ID flomax and proscar cysto electively andrade removed monitor for voiding and reinsert PRN Subjective Allergies: Coded Allergies: VANCOMYCIN (Verified Allergy, Severe, hive, 09/28/20) Subjective remains on vent, trach 09/27 andrade out, voiding/incontinent, condom cath PVR 97 cc Objective Last 24 Hour Vital Signs Date Time Temp Pulse Resp B/P (MAP) Pulse Ox O2 Delivery O2 Flow Rate FiO2 10/16/20 06:54 99 29 40 10/16/20 04:05 60 10/16/20 04:00 91 10/16/20 04:00 98.6 91 23 110/78 (89) 100 10/16/20 04:00 Mechanical Ventilator 10/16/20 03:05 88 28 40 10/16/20 02:08 74 24 115/75 99 10/16/20 01:38 105 22 122/72 96 10/16/20 00:00 Mechanical Ventilator 10/16/20 00:00 96 10/16/20 00:00 60 10/16/20 00:00 99.1 99 22 127/87 (100) 99 10/15/20 22:12 96 28 50 10/15/20 20:00 60 10/15/20 20:00 98 10/15/20 20:00 99.0 84 24 137/91 (106) 100 10/15/20 20:00 Mechanical Ventilator 10/15/20 19:02 94 29 50 10/15/20 16:00 Mechanical Ventilator 10/15/20 16:00 97.5 89 26 122/80 (94) 98 10/15/20 16:00 60 10/15/20 16:00 80 10/15/20 15:10 82 26 60 10/15/20 12:00 97.8 88 26 136/80 (98) 98 10/15/20 12:00 76 10/15/20 12:00 Mechanical Ventilator 10/15/20 12:00 60 10/15/20 11:44 84 24 126/82 100 10/15/20 11:14 91 26 136/80 100 10/15/20 11:10 77 24 60 Intake and Output 10/15/20 10/16/20 19:00 07:00 Intake Total 870 ml 920 ml Output Total 700 ml 500 ml Balance 170 ml 420 ml Free Water 150 ml 200 ml Tube Feeding 720 ml 720 ml Output Urine Total 700 ml 500 ml # Bowel Movements 2 Microbiology Date/Time Source Procedure Growth Status 10/09/20 21:17 Urine,Clean Catch Urine Culture - Final Reena Tropicalis Complete 10/09/20 18:00 Sputum Gram Stain - Final Complete 10/09/20 18:00 Sputum Culture - Final Klebsiella Pneumoniae Usual Respiratory Louisa Complete 09/18/20 18:30 Stool Clostridium difficile Toxin Assay - Final Complete 09/17/20 12:58 Blood Blood Culture - Final NO GROWTH AFTER 5 DAYS Complete 09/10/20 17:15 Rectum VRE Culture - Final Enterococcus Faecalis - Vre Complete Current Medications Medications (Trade) Dose Ordered Sig/Aleksander Route PRN Reason Start Time Stop Time Status Last Admin Dose Admin Acetaminophen (Tylenol) 650 mg Q6H PRN NG pain 1-6 10/08/20 15:30 11/07/20 15:14 Ascorbic Acid (Vitamin C) 250 mg DAILY NG 09/26/20 09:00 10/18/20 08:59 10/15/20 08:36 Bisacodyl (Dulcolax) 10 mg DAILYPRN PRN RECTAL Constipation 10/11/20 12:00 01/09/21 11:59 Diphenhydramine HCl (Benadryl) 25 mg Q6H PRN IVP Itching 09/27/20 12:15 10/27/20 12:14 10/10/20 22:15 Diphenoxylate HCl/ Atropine (Lomotil) 2.5 mg Q4H PRN ORAL Diarrhea 09/20/20 08:15 10/20/20 08:14 Docusate Sodium (Colace) 100 mg TWICE A DAY NG 10/11/20 18:00 11/10/20 17:59 10/15/20 17:24 Famotidine (Pepcid) 20 mg BID GT 10/04/20 09:00 01/02/21 08:59 10/15/20 17:23 Finasteride (Proscar) 5 mg DAILY ORAL 09/13/20 09:00 12/12/20 08:59 10/15/20 08:36 Furosemide (Lasix) 40 mg DAILY GT 10/11/20 09:00 11/10/20 08:59 10/15/20 08:36 Lorazepam (Ativan) 1 mg Q4H PRN ORAL Agitation 10/14/20 22:30 10/21/20 22:29 10/16/20 01:38 Multivitamins (Multivitamins W/ Minerals 15ml Liquid) 15 ml DAILY NG 09/26/20 09:00 10/26/20 08:59 10/15/20 08:36 Spironolactone (Aldactone) 25 mg DAILY GT 10/05/20 09:00 11/04/20 08:59 10/15/20 08:36 Tamsulosin HCl (Flomax) 0.4 mg BEDTIME ORAL 10/11/20 21:00 11/10/20 20:59 10/15/20 20:41 Valproic Acid (Depakene) 1,000 mg BEDTIME GT 10/06/20 21:00 10/31/20 20:59 10/15/20 20:41 Zinc Sulfate (Zinc Sulfate) 220 mg DAILY GT 10/06/20 09:00 01/04/21 08:59 10/15/20 08:36 Height (Feet): 6 Height (Inches): 1.00 Weight (Pounds): 148 Objective exam stable Levi Brunson MD Oct 16, 2020 08:02
--- NOTE | 2020-10-16 08:10 | NUR ---
NURSE NOTES: Received report from ARTEMIO Dougherty. Patient in bed resting, no active s/s cardiac, respiratory distress noticed at this time. Patient open eyes on verbal stimuli, SR with HR 91. Trach to vent Shiley 8 AC 14 TV 450 Fio2 60% PEEP 5. Gt feeding on Jevity 1.2 @ 60ml/h. Endorsed Rae Catheter removed yesterday 10/15/20, producing 700ml urine output last night, dark sky. IV on right FA 22G, asymptomatic, patent, intact. Bed in lowest position, side rails upx3, call light within reach, bed alarm on, Will continue to monitor.
[2020-10-16] MEDS: Ascorbic Acid 500mg tab NG SCH (08:42)
[2020-10-16] MEDS: Multivitamins W/Minerals 15 ML UDC NG SCH (08:42)
[2020-10-16] MEDS: Furosemide 40mg tab GT SCH (08:42)
[2020-10-16] MEDS: Zinc Sulfate 220mg GT SCH (08:42)
[2020-10-16] MEDS: Spironolactone 25mg tab GT SCH (08:42)
[2020-10-16] MEDS ORDERED: Tubing IV Secondary IV ONE (09:02)
[2020-10-16] MEDS: Docusate 100mg/10ml Liq NG SCH ×2 (09:12→17:26)
--- NOTE | 2020-10-16 09:53 | Infectious Diseases Prog Note ---
Assessment/Plan Assessment/Plan A 1. Pneumonia with Klebsiella 2. Dementia. 3. Leukocytosis 4. Urinary tract infection treated 5. 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 BPH P 1. Observe off antibiotic Subjective ROS Limited/Unobtainable: Yes Constitutional: Denies: fever Neurologic: Reports: confusion, other - restrained by mittens Allergies: Coded Allergies: VANCOMYCIN (Verified Allergy, Severe, hive, 09/28/20) Objective Last 24 Hour Vital Signs Date Time Temp Pulse Resp B/P (MAP) Pulse Ox O2 Delivery O2 Flow Rate FiO2 10/16/20 08:00 98.4 118 22 117/75 (89) 93 10/16/20 06:54 99 29 40 10/16/20 04:05 60 10/16/20 04:00 91 10/16/20 04:00 98.6 91 23 110/78 (89) 100 10/16/20 04:00 Mechanical Ventilator 10/16/20 03:05 88 28 40 10/16/20 02:08 74 24 115/75 99 10/16/20 01:38 105 22 122/72 96 10/16/20 00:00 Mechanical Ventilator 10/16/20 00:00 96 10/16/20 00:00 60 10/16/20 00:00 99.1 99 22 127/87 (100) 99 10/15/20 22:12 96 28 50 10/15/20 20:00 60 10/15/20 20:00 98 10/15/20 20:00 99.0 84 24 137/91 (106) 100 10/15/20 20:00 Mechanical Ventilator 10/15/20 19:02 94 29 50 10/15/20 16:00 Mechanical Ventilator 10/15/20 16:00 97.5 89 26 122/80 (94) 98 10/15/20 16:00 60 10/15/20 16:00 80 10/15/20 15:10 82 26 60 10/15/20 12:00 97.8 88 26 136/80 (98) 98 10/15/20 12:00 76 10/15/20 12:00 Mechanical Ventilator 10/15/20 12:00 60 10/15/20 11:44 84 24 126/82 100 10/15/20 11:14 91 26 136/80 100 10/15/20 11:10 77 24 60 Height (Feet): 6 Height (Inches): 1.00 Weight (Pounds): 148 HEENT: status post trach Respiratory/Chest: lungs clear, other - on ventilator Cardiovascular: tachycardia Abdomen: soft, non tender, other - GT feeding Extremities: no edema Neurologic/Psychiatric: disoriented, aphasia Laboratory Tests Test 10/16/20 09:15 Arterial Blood pH 7.472 (7.350-7.450) Arterial Blood Partial Pressure CO2 41.8 mmHg (35.0-45.0) Arterial Blood Partial Pressure O2 75.8 mmHg (75.0-100.0) Arterial Blood HCO3 29.9 mmol/L (22.0-26.0) H Arterial Blood Oxygen Saturation 95.6 % (95-100) Arterial Blood Base Excess 5.7 (-2-2) H Freddy Test Positive Current Medications Medications (Trade) Dose Ordered Sig/Aleksander Route PRN Reason Start Time Stop Time Status Last Admin Dose Admin Acetaminophen (Tylenol) 650 mg Q6H PRN NG pain 1-6 10/08/20 15:30 11/07/20 15:14 Ascorbic Acid (Vitamin C) 250 mg DAILY NG 09/26/20 09:00 10/18/20 08:59 10/16/20 08:42 Bisacodyl (Dulcolax) 10 mg DAILYPRN PRN RECTAL Constipation 10/11/20 12:00 01/09/21 11:59 Diphenhydramine HCl (Benadryl) 25 mg Q6H PRN IVP Itching 09/27/20 12:15 10/27/20 12:14 10/10/20 22:15 Diphenoxylate HCl/ Atropine (Lomotil) 2.5 mg Q4H PRN ORAL Diarrhea 09/20/20 08:15 10/20/20 08:14 Docusate Sodium (Colace) 100 mg TWICE A DAY NG 10/11/20 18:00 11/10/20 17:59 10/16/20 09:12 Famotidine (Pepcid) 20 mg BID GT 10/04/20 09:00 01/02/21 08:59 10/16/20 08:42 Finasteride (Proscar) 5 mg DAILY ORAL 09/13/20 09:00 12/12/20 08:59 10/16/20 08:42 Furosemide (Lasix) 40 mg DAILY GT 10/11/20 09:00 11/10/20 08:59 10/16/20 08:42 Lorazepam (Ativan) 1 mg Q4H PRN ORAL Agitation 10/14/20 22:30 10/21/20 22:29 10/16/20 01:38 Multivitamins (Multivitamins W/ Minerals 15ml Liquid) 15 ml DAILY NG 09/26/20 09:00 10/26/20 08:59 10/16/20 08:42 Spironolactone (Aldactone) 25 mg DAILY GT 10/05/20 09:00 11/04/20 08:59 10/16/20 08:42 Tamsulosin HCl (Flomax) 0.4 mg BEDTIME ORAL 10/11/20 21:00 11/10/20 20:59 10/15/20 20:41 Valproic Acid (Depakene) 1,000 mg BEDTIME GT 10/06/20 21:00 10/31/20 20:59 10/15/20 20:41 Zinc Sulfate (Zinc Sulfate) 220 mg DAILY GT 10/06/20 09:00 01/04/21 08:59 10/16/20 08:42 Bradley Gil MD Oct 16, 2020 09:53
[2020-10-16 12:00] VITALS: BP 126/73
--- NOTE | 2020-10-16 14:26 | NUR ---
Telephone Betting ClerkBlanket Inspector SI: Respiratory Failure, Trach/Vent Dependent, Sepsis T 98.4, HR 118, RR 22, Bp 117/75 WBC 13.9, BUN 27 AC 12, TV 400 FiO2 60% O2 sat 93% Attempted ween to 40%. Cxray Left Pleural Effucsion, Retrocardiac Atelectasis IS: Lasix GT Colace GT Flomax Gt
--- NOTE | 2020-10-16 14:34 | Surgery Progress Note ---
Surgery Progress Note Subjective Procedure Performed tracheostomy Additional Comments ill appearing labs noted micro reviewed exam stable trach okay Objective Last 24 Hour Vital Signs Date Time Temp Pulse Resp B/P (MAP) Pulse Ox O2 Delivery O2 Flow Rate FiO2 10/16/20 11:37 108 10/16/20 11:02 105 35 40 10/16/20 11:02 99 29 100 Mechanical Ventilator 60 10/16/20 08:00 108 10/16/20 08:00 Mechanical Ventilator 10/16/20 08:00 98.4 118 22 117/75 (89) 93 10/16/20 08:00 60 10/16/20 06:54 99 29 40 10/16/20 04:05 60 10/16/20 04:00 91 10/16/20 04:00 98.6 91 23 110/78 (89) 100 10/16/20 04:00 Mechanical Ventilator 10/16/20 03:05 88 28 40 10/16/20 02:08 74 24 115/75 99 10/16/20 01:38 105 22 122/72 96 10/16/20 00:00 Mechanical Ventilator 10/16/20 00:00 96 10/16/20 00:00 60 10/16/20 00:00 99.1 99 22 127/87 (100) 99 10/15/20 22:12 96 28 50 10/15/20 20:00 60 10/15/20 20:00 98 10/15/20 20:00 99.0 84 24 137/91 (106) 100 10/15/20 20:00 Mechanical Ventilator 10/15/20 19:02 94 29 50 10/15/20 16:00 Mechanical Ventilator 10/15/20 16:00 97.5 89 26 122/80 (94) 98 10/15/20 16:00 60 10/15/20 16:00 80 10/15/20 15:10 82 26 60 I&O Intake and Output 10/15/20 10/16/20 18:59 06:59 Intake Total 870 ml 980 ml Output Total 700 ml 500 ml Balance 170 ml 480 ml Free Water 150 ml 200 ml Tube Feeding 720 ml 780 ml Output Urine Total 700 ml 500 ml # Bowel Movements 2 Dressing: saturated Cardiovascular: RSR Respiratory: decreased breath sounds Abdomen: soft, non-tender, present bowel sounds, other Extremities: no tenderness, no cyanosis Laboratory Tests Test 10/16/20 09:15 Arterial Blood pH 7.472 (7.350-7.450) Arterial Blood Partial Pressure CO2 41.8 mmHg (35.0-45.0) Arterial Blood Partial Pressure O2 75.8 mmHg (75.0-100.0) Arterial Blood HCO3 29.9 mmol/L (22.0-26.0) H Arterial Blood Oxygen Saturation 95.6 % (95-100) Arterial Blood Base Excess 5.7 (-2-2) H Freddy Test Positive Plan Problems: (1) Fever Assessment & Plan: maybe developing pneumonia cont abx pulm input thank you (2) Decubitus skin ulcer Assessment & Plan: Patient identified on admission to have multiple scabs on the left arm. mild open scabs with eschar. no drainage. no significant cellulitis. bruising no bilateral extremities noted. no signs of abuse. likely from agitation Sacral coccygeal noted to have a DTI 4.3X2.5CM. which is dark purple . RECOMMEND-CLEAN WITH SALINE, PAT DRY AND APPLY CALAZINE. COVER WITH OPTIFOAM DRESSING. REPLACE EVERY 3 DAYS OR NEEDED LEFT ISCHIUM- STAGE I PRESSURE ULCER MEASURES 4.5X1.7CM. NON-BLANCHABLE ERYTHEMA. RECOMMEND- APPLY CALAZINE AND COVER WITH OPTIFOAM DRESSING. REPLACE EVERY 7 DAYS. Turn q2h off load pressure with pillow off load heels nutritional optimization REJOINER eval will follow with recryan thank you (3) Malnutrition Assessment & Plan: Mr. Roman is a 70 year old male BIBA to ED of [facility] on 09/10/2020 around 14:00 due to fever. He was found to be hypotensive 91/55 (67), Temp: 100.0, leukocytosis 20.8k and subsequently transferred to ICU for septic shock. The blood culture is reportedly positive for gram positive cocci. NG tube was placed, KUB confirmed the placement to day. Pt is clinically stable with leukocytosis 20.1, improved BUN and creatine, stable hemodynamic without vasopressor. Findings: Mr. Roman is disoriented. He does ot follow commands at this time. Oral cavity is noted to be dried blood concretion likely from NG trauma. No active bleeding site is seen. Due to his level f alertness, already NG tube is in placed, PO trial was not done at this time. Transferred out ICU last night. He is non on tele. Issues: multiple wounds, s.p balaji/nasal/pharyngeal bleeding with blood culture Gram positive cocci leukocytosis trending down from 20k-20k-16k BUN/Creatine trending down from 93/1.9-79/1.3-54/1.1 Temp: 98.1~98.7, Pulse: 62~72, BP: 105/67~120/48, SPO2 98~100% on 2 liter S: Oral cavity is better condition comparison to yesterday. The mucosa is severely erythema without active bleeding. Limited level of alertness for direct therapy. NG in placed O: 1. Laryngeal palpation to trigger spontaneous cough and swallow: Pt triggered cough with laryngeal palpation. Approximately 5~10 seconds after coughing, he triggered swallow. based on this observation, he presents with copious secretion in pharynx and larynx. He continued to have poor secretion management at laryngeal level at this time. NO PO trial was given due to poor secretion at the level of air way with low level of alertness. A: 1. Probable aspiration of his own secretion with poor ability to cough and swallow 2. Dysphagia P: 1. NPO for now 2. Observe his secretion, and level of alertness for PO readiness. DAILY ESTIMATED NEEDS: Needs based on Wound, underweight/ 55kg 30-35 kcals/kg 5257-8830 total kcals 1.25-2 g protein/kg 69-110 g total protein 25-30 mL/kg 2255-0541 total fluid mLs NUTRITION DIAGNOSIS: Increased kcal/prot needs R/T wound healing and underweight status as evidenced by pt admitted w/ wounds including DTI 2 coccyx and stage 1 @ lt ischium, pt @ 73% IBW w/ low BMI per guidelines, s/p NGT insertion, on NGT feeds. CURRENT TF:Jevity 1.2 @ 50ml/hr x 24 hrs ENTERAL NUTRITION RECOMMENDATIONS: Jevity 1.2 @ 60ml/hr x 24 hrs to provide 1440ml, 1728kcal, 80g prot, 1160ml free water * As medically appropriate, increase goal rate to 60ml/hr x 24 hrs to meet 100% est kcal/prot needs * HOB over 30 degrees/ without IVF, H2O flush of 100ml q 8hrs ADDITIONAL RECOMMENDATIONS: * Calibrated daily bedscale wt Per SNF: HT=70" * Wound healing: TF rec @ goal will provide 100% RDI add Vit C 250mg QD, ZnSO4 220mg QD x 10days, Davidson BID via NGT * Monitor BGs, need for NISS w/ TF * Monitor lytes, replete as needed- high risk for refeeding syndrome -> check f/up phos and mag (4) Severe sepsis Assessment & Plan: will likely need trach and peg. patient needs protected airway and nutrition full code no family and unable to consent medically necessary. will plan soon (5) Open upper arm wound (6) Hematuria Assessment & Plan: as per urology Aubrey Gutierrez Oct 16, 2020 14:34
[2020-10-16 16:00] VITALS: BP 132/88
--- NOTE | 2020-10-16 18:38 | Pulmonology Progress Note ---
Subjective ROS Limited/Unobtainable: Yes Constitutional: Denies: fever Gastrointestinal/Abdominal: Reports: diarrhea Allergies: Coded Allergies: VANCOMYCIN (Verified Allergy, Severe, hive, 09/28/20) All Systems: reviewed and negative except above Objective Last 24 Hour Vital Signs Date Time Temp Pulse Resp B/P (MAP) Pulse Ox O2 Delivery O2 Flow Rate FiO2 10/16/20 16:00 40 10/16/20 16:00 91 10/16/20 16:00 Mechanical Ventilator 10/16/20 16:00 98.2 96 28 132/88 (103) 99 10/16/20 14:30 105 35 40 10/16/20 12:00 98.4 88 22 126/73 (90) 94 10/16/20 12:00 Mechanical Ventilator 10/16/20 12:00 60 10/16/20 11:37 108 10/16/20 11:02 105 35 40 10/16/20 11:02 99 29 100 Mechanical Ventilator 60 10/16/20 08:00 108 10/16/20 08:00 Mechanical Ventilator 10/16/20 08:00 98.4 118 22 117/75 (89) 93 10/16/20 08:00 60 10/16/20 06:54 99 29 40 10/16/20 04:05 60 10/16/20 04:00 91 10/16/20 04:00 98.6 91 23 110/78 (89) 100 10/16/20 04:00 Mechanical Ventilator 10/16/20 03:05 88 28 40 10/16/20 02:08 74 24 115/75 99 10/16/20 01:38 105 22 122/72 96 10/16/20 00:00 Mechanical Ventilator 10/16/20 00:00 96 10/16/20 00:00 60 10/16/20 00:00 99.1 99 22 127/87 (100) 99 10/15/20 22:12 96 28 50 10/15/20 20:00 60 10/15/20 20:00 98 10/15/20 20:00 99.0 84 24 137/91 (106) 100 10/15/20 20:00 Mechanical Ventilator 10/15/20 19:02 94 29 50 Intake and Output 10/15/20 10/16/20 19:00 07:00 Intake Total 870 ml 980 ml Output Total 700 ml 500 ml Balance 170 ml 480 ml Free Water 150 ml 200 ml Tube Feeding 720 ml 780 ml Output Urine Total 700 ml 500 ml # Bowel Movements 2 Laboratory Tests 10/16/20 09:15: Arterial Blood pH 7.472H, Arterial Blood Partial Pressure CO2 41.8, Arterial Blood Partial Pressure O2 75.8, Arterial Blood HCO3 29.9H, Arterial Blood Oxygen Saturation 95.6, Arterial Blood Base Excess 5.7H, Freddy Test Positive Current Medications Medications (Trade) Dose Ordered Sig/Aleksander Route PRN Reason Start Time Stop Time Status Last Admin Dose Admin Acetaminophen (Tylenol) 650 mg Q6H PRN NG pain 1-6 10/08/20 15:30 11/07/20 15:14 Ascorbic Acid (Vitamin C) 250 mg DAILY NG 09/26/20 09:00 10/18/20 08:59 10/16/20 08:42 Bisacodyl (Dulcolax) 10 mg DAILYPRN PRN RECTAL Constipation 10/11/20 12:00 01/09/21 11:59 Diphenhydramine HCl (Benadryl) 25 mg Q6H PRN IVP Itching 09/27/20 12:15 10/27/20 12:14 10/10/20 22:15 Diphenoxylate HCl/ Atropine (Lomotil) 2.5 mg Q4H PRN ORAL Diarrhea 09/20/20 08:15 10/20/20 08:14 Docusate Sodium (Colace) 100 mg TWICE A DAY NG 10/11/20 18:00 11/10/20 17:59 10/16/20 09:12 Famotidine (Pepcid) 20 mg BID GT 10/04/20 09:00 01/02/21 08:59 10/16/20 17:26 Finasteride (Proscar) 5 mg DAILY ORAL 09/13/20 09:00 12/12/20 08:59 10/16/20 08:42 Furosemide (Lasix) 40 mg DAILY GT 10/11/20 09:00 11/10/20 08:59 10/16/20 08:42 Lorazepam (Ativan) 1 mg Q4H PRN ORAL Agitation 10/14/20 22:30 10/21/20 22:29 10/16/20 01:38 Multivitamins (Multivitamins W/ Minerals 15ml Liquid) 15 ml DAILY NG 09/26/20 09:00 10/26/20 08:59 10/16/20 08:42 Spironolactone (Aldactone) 25 mg DAILY GT 10/05/20 09:00 11/04/20 08:59 10/16/20 08:42 Tamsulosin HCl (Flomax) 0.4 mg BEDTIME ORAL 10/11/20 21:00 11/10/20 20:59 10/15/20 20:41 Valproic Acid (Depakene) 1,000 mg BEDTIME GT 10/06/20 21:00 10/31/20 20:59 10/15/20 20:41 Zinc Sulfate (Zinc Sulfate) 220 mg DAILY GT 10/06/20 09:00 01/04/21 08:59 10/16/20 08:42 Assessment/Plan Assessment/Plan Pulmonary Progress Note Subjective Allergies: Coded Allergies: No Known Allergies (Unverified , 09/10/20) Subjective remains confused stable oxygen requirements Persistant infiltrates AB per ID TF to SNF once stable CXR improving infiltrates Wean PEEP/FIO2 Objective Vital Signs noted Height (Feet): 5 Height (Inches): 7.00 Weight (Pounds): 121 Objective WDWN NAD reduced breath sounds bilaterally without rhonchi or wheeze [id number] without MRG NABS nontender no HSM no CCE nonfocal remains confused Assessment/Plan Assessment/Plan: IMPRESSION: 1. Acute renal failure. 2. Hypernatremia improving 3. Leukocytosis. 4. Pneumonia/ sepsis. 5. Hypotension. 6. Dementia. 7. Acute on chronic encephalopathy. 8. bcx staph Epi 9. MRSA colonized PLAN continue current ventilator settings taper fio2 ID noted; monitor follow up on antibiotics monitor oxygen needs off load as able monitor lytes position change monitor imaging d/w consultants and nursing remains critical trach care dc plan to subacute impression, plan, and exam edited and reviewed in detail care discussed with Madi Richard MD Oct 16, 2020 18:38
--- NOTE | 2020-10-16 18:54 | NUR ---
NURSE HAND-OFF REPORT: Important Events on Shift: Fio2 Titrated from Fio2 60% to 40% Patient Status: stable Diet: Nephro @ 40ml/h Pending Orders: na Pending Results/Labs:na Pending MD notification:na Latest Vital Signs: Temperature 98.2 , Pulse 89 , B/P 132 /88 , Respiratory Rate 30 , O2 SAT 99 , Mechanical Ventilator, O2 Flow Rate 45.0 . Vital Sign Comment: stable EKG Rhythm: Sinus Rhythm Rhythm change?: N MD Notified?: N -Dr. Gabriel linares MD Response: No New Orders Received Latest Schultz Fall Score: 70 Fall Risk: High Risk Safety Measures: Call light Within Reach, Bed Alarm Zone 2, Side Rails Side Rails x3, Bed position Low and Locked. Fall Precautions: Yellow Socks Door Sign Patient Fall Education Report given to ARTEMIO Dougherty.
--- NOTE | 2020-10-16 19:10 | NUR ---
NURSE NOTES: Received report from ARTEMIO Victor. Pt is seen lying in bed in semi- herman' s position. Alert x 1. Alert to name, pt is agitated/ restless. Reposition patient. Trach to vent with settings as ordered. No signs of respiratory distress, o2 sat- 94%. Pt is SR at monitor,provide comfortable environment. Pt has no signs of pain. Pt is voiding good. Bed in lowest position, call light within reach. Continue to plan of care.
[2020-10-16 20:00] VITALS: BP 143/85
[2020-10-16] MEDS: Valproic Acid 250mg/5ml Liquid GT SCH (20:18)
[2020-10-16] MEDS: Tamsulosin 0.4mg cap ORAL SCH (20:18)
--- NOTE | 2020-10-16 20:35 | General Progress Note ---
Subjective Allergies: Coded Allergies: VANCOMYCIN (Verified Allergy, Severe, hive, 09/28/20) Subjective NAD but confused calm tolerated TF Objective Last 24 Hour Vital Signs Date Time Temp Pulse Resp B/P (MAP) Pulse Ox O2 Delivery O2 Flow Rate FiO2 10/16/20 19:46 74 21 118/70 95 10/16/20 19:16 89 22 122/83 100 10/16/20 18:49 89 30 40 10/16/20 16:00 40 10/16/20 16:00 91 10/16/20 16:00 Mechanical Ventilator 10/16/20 16:00 98.2 96 28 132/88 (103) 99 10/16/20 14:30 105 35 40 10/16/20 12:00 98.4 88 22 126/73 (90) 94 10/16/20 12:00 Mechanical Ventilator 10/16/20 12:00 60 10/16/20 11:37 108 10/16/20 11:02 105 35 40 10/16/20 11:02 99 29 100 Mechanical Ventilator 60 10/16/20 08:00 108 10/16/20 08:00 Mechanical Ventilator 10/16/20 08:00 98.4 118 22 117/75 (89) 93 10/16/20 08:00 60 10/16/20 06:54 99 29 40 10/16/20 04:05 60 10/16/20 04:00 91 10/16/20 04:00 98.6 91 23 110/78 (89) 100 10/16/20 04:00 Mechanical Ventilator 10/16/20 03:05 88 28 40 10/16/20 02:08 74 24 115/75 99 10/16/20 01:38 105 22 122/72 96 10/16/20 00:00 Mechanical Ventilator 10/16/20 00:00 96 10/16/20 00:00 60 10/16/20 00:00 99.1 99 22 127/87 (100) 99 10/15/20 22:12 96 28 50 Intake and Output 10/15/20 10/16/20 19:00 07:00 Intake Total 870 ml 980 ml Output Total 700 ml 500 ml Balance 170 ml 480 ml Free Water 150 ml 200 ml Tube Feeding 720 ml 780 ml Output Urine Total 700 ml 500 ml # Bowel Movements 2 Laboratory Tests 10/16/20 09:15: Arterial Blood pH 7.472H, Arterial Blood Partial Pressure CO2 41.8, Arterial Blood Partial Pressure O2 75.8, Arterial Blood HCO3 29.9H, Arterial Blood Oxygen Saturation 95.6, Arterial Blood Base Excess 5.7H, Freddy Test Positive Height (Feet): 6 Height (Inches): 1.00 Weight (Pounds): 148 Objective Thin WM on vent/trach calm, awake Skin: no hematoma or ecchymosis HEENT NCAT supple, (+) trach coarse ronchi RR, slightly tachy abd soft flat ND, (+) GT no edema Assessment/Plan Status: stable Assessment/Plan: Assessment - resp failure - s/p PEG - anemia - OBS/Dementia - sepsis - diarrhea, C Diff (-) - Azotemia, resolved - CHF - malnutrition , low albumin - leukocytosis - hypernatremia Recommendations -Vent care / support - cards and pulm follow up - supportive care - abx - PPI - TF Deborah Cabrera MD Oct 16, 2020 20:35
--- NOTE | 2020-10-16 23:23 | Cardiology Progress Note ---
Subjective DATE OF SERVICE: Oct 16, 2020 Remains on vent via trach, now requiring 40% oxygen delivery. Remains congested; less edematous. Fluid balance negative on current diuretic dose. BP remains controlled. Monitor: sinus with rare ectopy. (10/15) 7.47/42/75 CXR (10/15) improved infiltrates with small left eff'n Objective Last 24 Hour Vital Signs Date Time Temp Pulse Resp B/P (MAP) Pulse Ox O2 Delivery O2 Flow Rate FiO2 10/16/20 23:09 91 32 40 10/16/20 20:00 98.2 93 24 143/85 (104) 100 10/16/20 20:00 91 10/16/20 20:00 40 10/16/20 20:00 Mechanical Ventilator 10/16/20 19:46 74 21 118/70 95 10/16/20 19:16 89 22 122/83 100 10/16/20 18:49 89 30 40 10/16/20 16:00 40 10/16/20 16:00 91 10/16/20 16:00 Mechanical Ventilator 10/16/20 16:00 98.2 96 28 132/88 (103) 99 10/16/20 14:30 105 35 40 10/16/20 12:00 98.4 88 22 126/73 (90) 94 10/16/20 12:00 Mechanical Ventilator 10/16/20 12:00 60 10/16/20 11:37 108 10/16/20 11:02 105 35 40 10/16/20 11:02 99 29 100 Mechanical Ventilator 60 10/16/20 08:00 108 10/16/20 08:00 Mechanical Ventilator 10/16/20 08:00 98.4 118 22 117/75 (89) 93 10/16/20 08:00 60 10/16/20 06:54 99 29 40 10/16/20 04:05 60 10/16/20 04:00 91 10/16/20 04:00 98.6 91 23 110/78 (89) 100 10/16/20 04:00 Mechanical Ventilator 10/16/20 03:05 88 28 40 10/16/20 02:08 74 24 115/75 99 10/16/20 01:38 105 22 122/72 96 10/16/20 00:00 Mechanical Ventilator 10/16/20 00:00 96 10/16/20 00:00 60 10/16/20 00:00 99.1 99 22 127/87 (100) 99 ROS: no change from my evaluation of 09/10/20. HEENT: Mechanically Ventilated, Thin Trach secretions RHYTHM: NSR, ST LUNGS: bilat. rhonchi and rales, trach site clean CARDIAC: normal rate, regular rhythm, normal S1 and S2 ABDOMEN: normal bowel sounds, soft, G-Tube intact EXTREMITIES: trace edema Laboratory Tests Test 10/16/20 09:15 Arterial Blood pH 7.472 (7.350-7.450) Arterial Blood Partial Pressure CO2 41.8 mmHg (35.0-45.0) Arterial Blood Partial Pressure O2 75.8 mmHg (75.0-100.0) Arterial Blood HCO3 29.9 mmol/L (22.0-26.0) H Arterial Blood Oxygen Saturation 95.6 % (95-100) Arterial Blood Base Excess 5.7 (-2-2) H Freddy Test Positive Assessment/Plan Assessment/Plan Respiratory failure with hypoxia - s/p tracheostomy Sepsis Aspiration PNA Recurring shock - recovered Diarrhea Dehydration/hypernatremia corrected Acute myocardial ischemia Acute renal failure HC assoc PNA UTI Transaminitis, acute CVA/dementia Paroxysmal sinus bradycardia and tachycardia Acute/chronic diastolic CHF now compensated; recent increase in BNP noted. Severe protein/calorie malnutrition with dysphagia; now s/p PEG Hypokalemia Vent support with trach care; wean down O2 as able. Antimicrobials per ID. ?reculture for fever Replace lytes as needed. DVT prophyl Cardiac monitoring Diuresis with oral maint dose of furosemide and aldactone now; trend BNP. O2 taper Madi Rios MD Oct 16, 2020 23:22
[2020-10-17] VITALS: BP 117/83
--- NOTE | 2020-10-17 01:41 | NUR ---
NURSE NOTES: Sponge bath given, cleaned pt, noted Large bowel movement with soft stool. Voiding freely. Continue to monitor pt,. Bed in lowest position, Call light within reach.
[2020-10-17] MEDS: DiphenhydrAMINE 50mg/ml Inj IVP PRN (02:35)
--- NOTE | 2020-10-17 03:53 | Cardiology Progress Note ---
Subjective DATE OF SERVICE: Oct 17, 2020 Remains on vent via trach, now requiring 40% oxygen delivery. Remains congested; less edematous. Fluid balance negative on current diuretic dose. BP remains controlled. Monitor: sinus with rare ectopy. (10/15) 7.47/42/75 CXR (10/15) improved infiltrates with small left eff'n Objective Last 24 Hour Vital Signs Date Time Temp Pulse Resp B/P (MAP) Pulse Ox O2 Delivery O2 Flow Rate FiO2 10/17/20 02:43 92 27 40 10/17/20 00:00 Mechanical Ventilator 10/17/20 00:00 40 10/17/20 00:00 93 10/17/20 00:00 97.0 89 23 117/83 (94) 100 10/16/20 23:09 91 32 40 10/16/20 20:00 98.2 93 24 143/85 (104) 100 10/16/20 20:00 91 10/16/20 20:00 40 10/16/20 20:00 Mechanical Ventilator 10/16/20 19:46 74 21 118/70 95 10/16/20 19:16 89 22 122/83 100 10/16/20 18:49 89 30 40 10/16/20 16:00 40 10/16/20 16:00 91 10/16/20 16:00 Mechanical Ventilator 10/16/20 16:00 98.2 96 28 132/88 (103) 99 10/16/20 14:30 105 35 40 10/16/20 12:00 98.4 88 22 126/73 (90) 94 10/16/20 12:00 Mechanical Ventilator 10/16/20 12:00 60 10/16/20 11:37 108 10/16/20 11:02 105 35 40 10/16/20 11:02 99 29 100 Mechanical Ventilator 60 10/16/20 08:00 108 10/16/20 08:00 Mechanical Ventilator 10/16/20 08:00 98.4 118 22 117/75 (89) 93 10/16/20 08:00 60 10/16/20 06:54 99 29 40 10/16/20 04:05 60 10/16/20 04:00 91 10/16/20 04:00 98.6 91 23 110/78 (89) 100 10/16/20 04:00 Mechanical Ventilator ROS: no change from my evaluation of 09/10/20. HEENT: Mechanically Ventilated, Thin Trach secretions RHYTHM: NSR, ST LUNGS: bilat. rhonchi and rales, trach site clean CARDIAC: normal rate, regular rhythm, normal S1 and S2 ABDOMEN: normal bowel sounds, soft, G-Tube intact EXTREMITIES: trace edema Laboratory Tests Test 10/16/20 09:15 Arterial Blood pH 7.472 (7.350-7.450) Arterial Blood Partial Pressure CO2 41.8 mmHg (35.0-45.0) Arterial Blood Partial Pressure O2 75.8 mmHg (75.0-100.0) Arterial Blood HCO3 29.9 mmol/L (22.0-26.0) H Arterial Blood Oxygen Saturation 95.6 % (95-100) Arterial Blood Base Excess 5.7 (-2-2) H Freddy Test Positive Assessment/Plan Assessment/Plan Respiratory failure with hypoxia - s/p tracheostomy Sepsis Aspiration PNA Recurring shock - recovered Diarrhea Dehydration/hypernatremia corrected Acute myocardial ischemia Acute renal failure HC assoc PNA UTI Transaminitis, acute CVA/dementia Paroxysmal sinus bradycardia and tachycardia Acute/chronic diastolic CHF now compensated; recent increase in BNP noted. Severe protein/calorie malnutrition with dysphagia; now s/p PEG Hypokalemia Vent support with trach care; wean down O2 as able. Antimicrobials per ID. ?reculture for fever Replace lytes as needed. DVT prophyl Cardiac monitoring Diuresis with oral maint dose of furosemide and aldactone now; trend BNP. O2 taper Follow up labs and adjust rx accordingly. Madi Rios MD Oct 17, 2020 03:53
[2020-10-17 04:00] VITALS: BP 119/86
[2020-10-17 06:14] LABS: BASOPHILS % (AUTO) 0.7 % (0.0-2.0); EOSINOPHILS % (AUTO) 3.2 % (0.0-3.0); HEMOGLOBIN 8.9 G/DL (14.2-18.0); LYMPHOCYTES % (AUTO) 30.8 % (20.0-45.0); MEAN CORPUSCULAR VOLUME 88 FL (80-99); MONOCYTES % (AUTO) 9.4 % (1.0-10.0); NEUTROPHILS % (AUTO) 55.9 % (45.0-75.0); PLATELET COUNT 141 K/UL (150-450); RED BLOOD COUNT 3.07 M/UL (4.70-6.10); RED CELL DISTRIBUTION WIDTH 14.8 % (11.6-14.8); WHITE BLOOD COUNT 9.8 K/UL (4.8-10.8)
--- NOTE | 2020-10-17 06:33 | NUR ---
NURSE NOTES: Pt is seen lying in bed, in comfortable position, o2 sat- 100%. Bed in lowest position, call light within reach. Continue to plan of care.
[2020-10-17 06:49] LABS: ALBUMIN 1.8 G/DL (3.4-5.0); ALBUMIN/GLOBULIN RATIO 0.3 (1.0-2.7); BILIRUBIN,TOTAL 0.4 MG/DL (0.2-1.0); CALCIUM 8.5 MG/DL (8.5-10.1); CREATININE 1.3 MG/DL (0.55-1.30); POTASSIUM 4.5 MMOL/L (3.5-5.1)
--- NOTE | 2020-10-17 07:10 | NUR ---
NURSE HAND-OFF REPORT: Important Events on Shift: Pt is anxious, o2 sat -stable, VS WNL, D/c- waiting for placement Patient Status: Stable Diet: GTF Pending Orders: None Pending Results/Labs: None Pending MD notification: None Latest Vital Signs: Temperature 98.1 , Pulse 90 , B/P 119 /86 , Respiratory Rate 25 , O2 SAT 98 , Mechanical Ventilator, O2 Flow Rate 45.0 . Vital Sign Comment: WNL EKG Rhythm: Sinus Rhythm Rhythm change?: N MD Notified?: N -Dr. Gabriel linares MD Response: No New Orders Received Latest Schultz Fall Score: 70 Fall Risk: High Risk Safety Measures: Call light Within Reach, Bed Alarm Zone 2, Side Rails Side Rails x3, Bed position Low and Locked. Fall Precautions: Yellow Socks Door Sign Patient Fall Education Report given to [Chris Dodson, RN].
--- NOTE | 2020-10-17 07:15 | NUR ---
NURSE NOTES: Received patient report from. Patient is AO x1, in bed asleep. Patient on vent AC14 VT 450 FiO2 50% PEEP 5, breathing is even and unlabored with no signs of respiratory distress. No pain or discomfort noted at this time. Bed in lowest position, locked with side rails x2 up. Patient with no s/s of urine retention at this time. Call light within reach at all times.
[2020-10-17 08:00] VITALS: BP 122/70
[2020-10-17] MEDS: Docusate 100mg/10ml Liq NG SCH ×2 (08:22→17:25)
[2020-10-17] MEDS: Multivitamins W/Minerals 15 ML UDC NG SCH (08:22)
[2020-10-17] MEDS: Furosemide 40mg tab GT SCH (08:23)
[2020-10-17] MEDS: Ascorbic Acid 500mg tab NG SCH (08:23)
[2020-10-17] MEDS: LORazepam 1mg tab ORAL PRN ×3 (08:23→21:54)
[2020-10-17] MEDS: Zinc Sulfate 220mg GT SCH (08:23)
[2020-10-17] MEDS: Spironolactone 25mg tab GT SCH (08:23)
--- NOTE | 2020-10-17 10:32 | Urology Progress Note ---
Assessment/Plan Status: stable Assessment/Plan: 1. Gross hematuria. 2. Pyuria and possible UTI. 3. Proteinuria. 4. BPH. 5. Urinary retention. 6. Probable neurogenic bladder. 7. Possible sepsis. monitor clinically off abx, per ID flomax and proscar cysto electively andrade removed monitor for voiding and reinsert PRN Subjective Allergies: Coded Allergies: VANCOMYCIN (Verified Allergy, Severe, hive, 09/28/20) Subjective remains on vent, trach 09/27 andrade out, voiding/incontinent, condom cath Objective Last 24 Hour Vital Signs Date Time Temp Pulse Resp B/P (MAP) Pulse Ox O2 Delivery O2 Flow Rate FiO2 10/17/20 08:53 84 24 118/68 97 10/17/20 08:23 90 24 122/70 98 10/17/20 08:00 97.5 90 24 122/70 (87) 98 10/17/20 08:00 40 10/17/20 08:00 Mechanical Ventilator 10/17/20 07:50 82 10/17/20 07:17 79 25 40 10/17/20 04:00 Mechanical Ventilator 10/17/20 04:00 40 10/17/20 04:00 90 10/17/20 04:00 98.1 86 25 119/86 (97) 98 10/17/20 02:43 92 27 40 10/17/20 00:00 Mechanical Ventilator 10/17/20 00:00 40 10/17/20 00:00 93 10/17/20 00:00 97.0 89 23 117/83 (94) 100 10/16/20 23:09 91 32 40 10/16/20 20:00 98.2 93 24 143/85 (104) 100 10/16/20 20:00 91 10/16/20 20:00 40 10/16/20 20:00 Mechanical Ventilator 10/16/20 19:46 74 21 118/70 95 10/16/20 19:16 89 22 122/83 100 10/16/20 18:49 89 30 40 10/16/20 16:00 40 10/16/20 16:00 91 10/16/20 16:00 Mechanical Ventilator 10/16/20 16:00 98.2 96 28 132/88 (103) 99 10/16/20 14:30 105 35 40 10/16/20 12:00 98.4 88 22 126/73 (90) 94 10/16/20 12:00 Mechanical Ventilator 10/16/20 12:00 60 10/16/20 11:37 108 10/16/20 11:02 105 35 40 10/16/20 11:02 99 29 100 Mechanical Ventilator 60 Intake and Output 10/16/20 10/17/20 19:00 07:00 Intake Total 810 ml 760 ml Output Total 550 ml 600 ml Balance 260 ml 160 ml Free Water 90 ml 100 ml Tube Feeding 720 ml 660 ml Output Urine Total 550 ml 600 ml # Bowel Movements 2 2 Microbiology Date/Time Source Procedure Growth Status 10/09/20 21:17 Urine,Clean Catch Urine Culture - Final Reena Tropicalis Complete 10/09/20 18:00 Sputum Gram Stain - Final Complete 10/09/20 18:00 Sputum Culture - Final Klebsiella Pneumoniae Usual Respiratory Louisa Complete 09/18/20 18:30 Stool Clostridium difficile Toxin Assay - Final Complete 09/17/20 12:58 Blood Blood Culture - Final NO GROWTH AFTER 5 DAYS Complete 09/10/20 17:15 Rectum VRE Culture - Final Enterococcus Faecalis - Vre Complete Current Medications Medications (Trade) Dose Ordered Sig/Aleksander Route PRN Reason Start Time Stop Time Status Last Admin Dose Admin Acetaminophen (Tylenol) 650 mg Q6H PRN NG pain 1-6 10/08/20 15:30 11/07/20 15:14 Ascorbic Acid (Vitamin C) 250 mg DAILY NG 09/26/20 09:00 10/18/20 08:59 10/17/20 08:23 Bisacodyl (Dulcolax) 10 mg DAILYPRN PRN RECTAL Constipation 10/11/20 12:00 01/09/21 11:59 Diphenhydramine HCl (Benadryl) 25 mg Q6H PRN IVP Itching 09/27/20 12:15 10/27/20 12:14 10/17/20 02:35 Diphenoxylate HCl/ Atropine (Lomotil) 2.5 mg Q4H PRN ORAL Diarrhea 09/20/20 08:15 10/20/20 08:14 Docusate Sodium (Colace) 100 mg TWICE A DAY NG 10/11/20 18:00 11/10/20 17:59 10/17/20 08:22 Famotidine (Pepcid) 20 mg BID GT 10/04/20 09:00 01/02/21 08:59 10/17/20 08:22 Finasteride (Proscar) 5 mg DAILY ORAL 09/13/20 09:00 12/12/20 08:59 10/17/20 08:23 Furosemide (Lasix) 40 mg DAILY GT 10/11/20 09:00 11/10/20 08:59 10/17/20 08:23 Lorazepam (Ativan) 1 mg Q4H PRN ORAL Agitation 10/14/20 22:30 10/21/20 22:29 10/17/20 08:23 Multivitamins (Multivitamins W/ Minerals 15ml Liquid) 15 ml DAILY NG 09/26/20 09:00 10/26/20 08:59 10/17/20 08:22 Spironolactone (Aldactone) 25 mg DAILY GT 10/05/20 09:00 11/04/20 08:59 10/17/20 08:23 Tamsulosin HCl (Flomax) 0.4 mg BEDTIME ORAL 10/11/20 21:00 11/10/20 20:59 10/16/20 20:18 Valproic Acid (Depakene) 1,000 mg BEDTIME GT 10/06/20 21:00 10/31/20 20:59 10/16/20 20:18 Zinc Sulfate (Zinc Sulfate) 220 mg DAILY GT 10/06/20 09:00 01/04/21 08:59 10/17/20 08:23 Laboratory Tests 10/17/20 04:40: White Blood Count 9.8, Red Blood Count 3.07L, Hemoglobin 8.9L, Hematocrit 27.0L, Mean Corpuscular Volume 88, Mean Corpuscular Hemoglobin 29.1, Mean Corpuscular Hemoglobin Concent 33.1, Red Cell Distribution Width 14.8, Platelet Count 141L, Mean Platelet Volume 7.4, Neutrophils (%) (Auto) 55.9, Lymphocytes (%) (Auto) 30.8, Monocytes (%) (Auto) 9.4, Eosinophils (%) (Auto) 3.2H, Basophils (%) (Auto) 0.7, Sodium Level 139, Potassium Level 4.5, Chloride Level 103, Carbon Dioxide Level 34H, Anion Gap 2L, Blood Urea Nitrogen 34H, Creatinine 1.3, Estimat Glomerular Filtration Rate 54.7, Glucose Level 102, Calcium Level 8.5, Total Bilirubin 0.4, Aspartate Amino Transf (AST/SGOT) 26, Alanine Aminotransferase (ALT/SGPT) 24, Alkaline Phosphatase 81, Pro-B-Type Natriuretic Peptide 968H, Total Protein 8.0, Albumin 1.8L, Globulin 6.2, Albumin/Globulin Ratio 0.3L Height (Feet): 6 Height (Inches): 1.00 Weight (Pounds): 148 Objective exam stable Levi Brunson MD Oct 17, 2020 10:32
--- NOTE | 2020-10-17 11:45 | Infectious Diseases Prog Note ---
Assessment/Plan Assessment/Plan antibiotics : none A 1. MRSA Pneumonia s/p rx COVID-19 test is negative. 2. Dementia. 3. Leukocytosis improving 4. respiratory failure s/p tracheostomy 5. allergic reaction to vancomycin resolved P 1. continue off antibiotics 2. will follow up cultures Subjective ROS Limited/Unobtainable: Yes Allergies: Coded Allergies: VANCOMYCIN (Verified Allergy, Severe, hive, 09/28/20) Objective Last 24 Hour Vital Signs Date Time Temp Pulse Resp B/P (MAP) Pulse Ox O2 Delivery O2 Flow Rate FiO2 10/17/20 08:53 84 24 118/68 97 10/17/20 08:23 90 24 122/70 98 10/17/20 08:00 97.5 90 24 122/70 (87) 98 10/17/20 08:00 40 10/17/20 08:00 Mechanical Ventilator 10/17/20 07:50 82 10/17/20 07:17 79 25 40 10/17/20 04:00 Mechanical Ventilator 10/17/20 04:00 40 10/17/20 04:00 90 10/17/20 04:00 98.1 86 25 119/86 (97) 98 10/17/20 02:43 92 27 40 10/17/20 00:00 Mechanical Ventilator 10/17/20 00:00 40 10/17/20 00:00 93 10/17/20 00:00 97.0 89 23 117/83 (94) 100 10/16/20 23:09 91 32 40 10/16/20 20:00 98.2 93 24 143/85 (104) 100 10/16/20 20:00 91 10/16/20 20:00 40 10/16/20 20:00 Mechanical Ventilator 10/16/20 19:46 74 21 118/70 95 10/16/20 19:16 89 22 122/83 100 10/16/20 18:49 89 30 40 10/16/20 16:00 40 10/16/20 16:00 91 10/16/20 16:00 Mechanical Ventilator 10/16/20 16:00 98.2 96 28 132/88 (103) 99 10/16/20 14:30 105 35 40 10/16/20 12:00 98.4 88 22 126/73 (90) 94 10/16/20 12:00 Mechanical Ventilator 10/16/20 12:00 60 Height (Feet): 6 Height (Inches): 1.00 Weight (Pounds): 148 HEENT: status post trach Respiratory/Chest: lungs clear Cardiovascular: normal rate, regular rhythm, no gallop/murmur Abdomen: soft, non tender, other - GT Extremities: no edema Laboratory Tests Test 10/17/20 04:40 White Blood Count 9.8 K/UL (4.8-10.8) Red Blood Count 3.07 M/UL (4.70-6.10) L Hemoglobin 8.9 G/DL (14.2-18.0) L Hematocrit 27.0 % (42.0-52.0) L Mean Corpuscular Volume 88 FL (80-99) Mean Corpuscular Hemoglobin 29.1 PG (27.0-31.0) Mean Corpuscular Hemoglobin Concent 33.1 G/DL (32.0-36.0) Red Cell Distribution Width 14.8 % (11.6-14.8) Platelet Count 141 K/UL (150-450) L Mean Platelet Volume 7.4 FL (6.5-10.1) Neutrophils (%) (Auto) 55.9 % (45.0-75.0) Lymphocytes (%) (Auto) 30.8 % (20.0-45.0) Monocytes (%) (Auto) 9.4 % (1.0-10.0) Eosinophils (%) (Auto) 3.2 % (0.0-3.0) H Basophils (%) (Auto) 0.7 % (0.0-2.0) Sodium Level 139 MMOL/L (136-145) Potassium Level 4.5 MMOL/L (3.5-5.1) Chloride Level 103 MMOL/L (98-107) Carbon Dioxide Level 34 MMOL/L (21-32) H Anion Gap 2 mmol/L (5-15) L Blood Urea Nitrogen 34 mg/dL (7-18) H Creatinine 1.3 MG/DL (0.55-1.30) Estimat Glomerular Filtration Rate 54.7 mL/min (>60) Glucose Level 102 MG/DL (74-106) Calcium Level 8.5 MG/DL (8.5-10.1) Total Bilirubin 0.4 MG/DL (0.2-1.0) Aspartate Amino Transf (AST/SGOT) 26 U/L (15-37) Alanine Aminotransferase (ALT/SGPT) 24 U/L (12-78) Alkaline Phosphatase 81 U/L (46-116) Pro-B-Type Natriuretic Peptide 968 pg/mL (0-125) H Total Protein 8.0 G/DL (6.4-8.2) Albumin 1.8 G/DL (3.4-5.0) L Globulin 6.2 g/dL Albumin/Globulin Ratio 0.3 (1.0-2.7) L Current Medications Medications (Trade) Dose Ordered Sig/Aleksander Route PRN Reason Start Time Stop Time Status Last Admin Dose Admin Acetaminophen (Tylenol) 650 mg Q6H PRN NG pain 1-6 10/08/20 15:30 11/07/20 15:14 Ascorbic Acid (Vitamin C) 250 mg DAILY NG 09/26/20 09:00 10/18/20 08:59 10/17/20 08:23 Bisacodyl (Dulcolax) 10 mg DAILYPRN PRN RECTAL Constipation 10/11/20 12:00 01/09/21 11:59 Diphenhydramine HCl (Benadryl) 25 mg Q6H PRN IVP Itching 09/27/20 12:15 10/27/20 12:14 10/17/20 02:35 Diphenoxylate HCl/ Atropine (Lomotil) 2.5 mg Q4H PRN ORAL Diarrhea 09/20/20 08:15 10/20/20 08:14 Docusate Sodium (Colace) 100 mg TWICE A DAY NG 10/11/20 18:00 11/10/20 17:59 10/17/20 08:22 Famotidine (Pepcid) 20 mg BID GT 10/04/20 09:00 01/02/21 08:59 10/17/20 08:22 Finasteride (Proscar) 5 mg DAILY ORAL 09/13/20 09:00 12/12/20 08:59 10/17/20 08:23 Furosemide (Lasix) 40 mg DAILY GT 10/11/20 09:00 11/10/20 08:59 10/17/20 08:23 Lorazepam (Ativan) 1 mg Q4H PRN ORAL Agitation 10/14/20 22:30 10/21/20 22:29 10/17/20 08:23 Multivitamins (Multivitamins W/ Minerals 15ml Liquid) 15 ml DAILY NG 09/26/20 09:00 10/26/20 08:59 10/17/20 08:22 Spironolactone (Aldactone) 25 mg DAILY GT 10/05/20 09:00 11/04/20 08:59 10/17/20 08:23 Tamsulosin HCl (Flomax) 0.4 mg BEDTIME ORAL 10/11/20 21:00 11/10/20 20:59 10/16/20 20:18 Valproic Acid (Depakene) 1,000 mg BEDTIME GT 10/06/20 21:00 10/31/20 20:59 10/16/20 20:18 Zinc Sulfate (Zinc Sulfate) 220 mg DAILY GT 10/06/20 09:00 01/04/21 08:59 10/17/20 08:23 Martha Collins MD Oct 17, 2020 11:45
[2020-10-17 12:00] VITALS: BP 126/84
--- NOTE | 2020-10-17 12:38 | NUR ---
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
--- NOTE | 2020-10-17 14:07 | NUR ---
*-*DISCHARGE PLANING*-* PATIENT HAS BEEN REFERRED TO: ROBERTA ELLISON P: [phone] S/W [facility], WILL CALL BACK AFTER REVIEW.
[2020-10-17 16:00] VITALS: BP 130/86
--- NOTE | 2020-10-17 17:24 | NUR ---
*-*DISCHARGE PLANING*-* PATIENT HAS BEEN REFERRED TO: ROBERTA ELLISON P: [phone] S/W Y[facility], UNABLE TO ACCEPT ANY NEW ADMISSION, DUE TO STAFFING.
--- NOTE | 2020-10-17 17:41 | Surgery Progress Note ---
Surgery Progress Note Subjective Procedure Performed tracheostomy Additional Comments ill appearing no acute events labs noted micro reviewed Objective Last 24 Hour Vital Signs Date Time Temp Pulse Resp B/P (MAP) Pulse Ox O2 Delivery O2 Flow Rate FiO2 10/17/20 16:25 82 24 120/78 97 10/17/20 16:00 40 10/17/20 16:00 Mechanical Ventilator 10/17/20 16:00 98.4 88 26 130/86 (101) 97 10/17/20 16:00 86 10/17/20 15:55 98 28 134/86 100 10/17/20 15:19 93 33 40 10/17/20 12:00 81 10/17/20 12:00 Mechanical Ventilator 10/17/20 12:00 40 10/17/20 12:00 98.1 84 25 126/84 (98) 100 10/17/20 11:17 88 32 40 10/17/20 08:53 84 24 118/68 97 10/17/20 08:23 90 24 122/70 98 10/17/20 08:00 97.5 90 24 122/70 (87) 98 10/17/20 08:00 40 10/17/20 08:00 Mechanical Ventilator 10/17/20 07:50 82 10/17/20 07:17 79 25 40 10/17/20 04:00 Mechanical Ventilator 10/17/20 04:00 40 10/17/20 04:00 90 10/17/20 04:00 98.1 86 25 119/86 (97) 98 10/17/20 02:43 92 27 40 10/17/20 00:00 Mechanical Ventilator 10/17/20 00:00 40 10/17/20 00:00 93 10/17/20 00:00 97.0 89 23 117/83 (94) 100 10/16/20 23:09 91 32 40 10/16/20 20:00 98.2 93 24 143/85 (104) 100 10/16/20 20:00 91 10/16/20 20:00 40 10/16/20 20:00 Mechanical Ventilator 10/16/20 19:46 74 21 118/70 95 10/16/20 19:16 89 22 122/83 100 10/16/20 18:49 89 30 40 I&O Intake and Output 10/16/20 10/17/20 19:00 07:00 Intake Total 810 ml 760 ml Output Total 550 ml 600 ml Balance 260 ml 160 ml Free Water 90 ml 100 ml Tube Feeding 720 ml 660 ml Output Urine Total 550 ml 600 ml # Bowel Movements 2 2 Dressing: saturated Cardiovascular: RSR Respiratory: decreased breath sounds Abdomen: soft, non-tender, present bowel sounds Extremities: no tenderness, no cyanosis Laboratory Tests Test 10/17/20 04:40 White Blood Count 9.8 K/UL (4.8-10.8) Red Blood Count 3.07 M/UL (4.70-6.10) L Hemoglobin 8.9 G/DL (14.2-18.0) L Hematocrit 27.0 % (42.0-52.0) L Mean Corpuscular Volume 88 FL (80-99) Mean Corpuscular Hemoglobin 29.1 PG (27.0-31.0) Mean Corpuscular Hemoglobin Concent 33.1 G/DL (32.0-36.0) Red Cell Distribution Width 14.8 % (11.6-14.8) Platelet Count 141 K/UL (150-450) L Mean Platelet Volume 7.4 FL (6.5-10.1) Neutrophils (%) (Auto) 55.9 % (45.0-75.0) Lymphocytes (%) (Auto) 30.8 % (20.0-45.0) Monocytes (%) (Auto) 9.4 % (1.0-10.0) Eosinophils (%) (Auto) 3.2 % (0.0-3.0) H Basophils (%) (Auto) 0.7 % (0.0-2.0) Sodium Level 139 MMOL/L (136-145) Potassium Level 4.5 MMOL/L (3.5-5.1) Chloride Level 103 MMOL/L (98-107) Carbon Dioxide Level 34 MMOL/L (21-32) H Anion Gap 2 mmol/L (5-15) L Blood Urea Nitrogen 34 mg/dL (7-18) H Creatinine 1.3 MG/DL (0.55-1.30) Estimat Glomerular Filtration Rate 54.7 mL/min (>60) Glucose Level 102 MG/DL (74-106) Calcium Level 8.5 MG/DL (8.5-10.1) Total Bilirubin 0.4 MG/DL (0.2-1.0) Aspartate Amino Transf (AST/SGOT) 26 U/L (15-37) Alanine Aminotransferase (ALT/SGPT) 24 U/L (12-78) Alkaline Phosphatase 81 U/L (46-116) Pro-B-Type Natriuretic Peptide 968 pg/mL (0-125) H Total Protein 8.0 G/DL (6.4-8.2) Albumin 1.8 G/DL (3.4-5.0) L Globulin 6.2 g/dL Albumin/Globulin Ratio 0.3 (1.0-2.7) L Plan Problems: (1) Fever Assessment & Plan: maybe developing pneumonia cont abx pulm input thank you (2) Decubitus skin ulcer Assessment & Plan: Patient identified on admission to have multiple scabs on the left arm. mild open scabs with eschar. no drainage. no significant cellulitis. bruising no bilateral extremities noted. no signs of abuse. likely from agitation Sacral coccygeal noted to have a DTI 4.3X2.5CM. which is dark purple . RECOMMEND-CLEAN WITH SALINE, PAT DRY AND APPLY CALAZINE. COVER WITH OPTIFOAM DRESSING. REPLACE EVERY 3 DAYS OR NEEDED LEFT ISCHIUM- STAGE I PRESSURE ULCER MEASURES 4.5X1.7CM. NON-BLANCHABLE ERYTHEMA. RECOMMEND- APPLY CALAZINE AND COVER WITH OPTIFOAM DRESSING. REPLACE EVERY 7 DAYS. Turn q2h off load pressure with pillow off load heels nutritional optimization [employer] eval will follow with recs thank you (3) Malnutrition Assessment & Plan: Mr. Roman is a 70 year old male BIBA to ED of [facility] on 09/10/2020 around 14:00 due to fever. He was found to be hypotensive 91/55 (67), Temp: 100.0, leukocytosis 20.8k and subsequently transferred to ICU for s eptic shock. The blood culture is reportedly positive for gram positive cocci. NG tube was placed, KUB confirmed the placement to day. Pt is clinically stable with leukocytosis 20.1, improved BUN and creatine, stable hemodynamic without vasopressor. Findings: Mr. Roman is disoriented. He does ot follow commands at this time. Oral cavity is noted to be dried blood concretion likely from NG trauma. No active bleeding site is seen. Due to his level f alertness, already NG tube is in placed, PO trial was not done at this time. Transferred out ICU last night. He is non on tele. Issues: multiple wounds, s.p balaji/nasal/pharyngeal bleeding with blood culture Gram positive cocci leukocytosis trending down from 20k-20k-16k BUN/Creatine trending down from 93/1.9-79/1.3-54/1.1 Temp: 98.1~98.7, Pulse: 62~72, BP: 105/67~120/48, SPO2 98~100% on 2 liter S: Oral cavity is better condition comparison to yesterday. The mucosa is severely erythema without active bleeding. Limited level of alertness for direct therapy. NG in placed O: 1. Laryngeal palpation to trigger spontaneous cough and swallow: Pt triggered cough with laryngeal palpation. Approximately 5~10 seconds after coughing, he triggered swallow. based on this observation, he presents with copious secretion in pharynx and larynx. He continued to have poor secretion management at laryngeal level at this time. NO PO trial was given due to poor secretion at the level of air way with low level of alertness. A: 1. Probable aspiration of his own secretion with poor ability to cough and swallow 2. Dysphagia P: 1. NPO for now 2. Observe his secretion, and level of alertness for PO readiness. DAILY ESTIMATED NEEDS: Needs based on Wound, underweight/ 55kg 30-35 kcals/kg 6672-0686 total kcals 1.25-2 g protein/kg 69-110 g total protein 25-30 mL/kg 6612-9063 total fluid mLs NUTRITION DIAGNOSIS: Increased kcal/prot needs R/T wound healing and underweight status as evidenced by pt admitted w/ wounds including DTI 2 coccyx and stage 1 @ lt ischium, pt @ 73% IBW w/ low BMI per guidelines, s/p NGT insertion, on NGT feeds. CURRENT TF:Jevity 1.2 @ 50ml/hr x 24 hrs ENTERAL NUTRITION RECOMMENDATIONS: Jevity 1.2 @ 60ml/hr x 24 hrs to provide 1440ml, 1728kcal, 80g prot, 1160ml free water * As medically appropriate, increase goal rate to 60ml/hr x 24 hrs to meet 100% est kcal/prot needs * HOB over 30 degrees/ without IVF, H2O flush of 100ml q 8hrs ADDITIONAL RECOMMENDATIONS: * Calibrated daily bedscale wt Per SNF: HT=70" * Wound healing: TF rec @ goal will provide 100% RDI add Vit C 250mg QD, ZnSO4 220mg QD x 10days, Davidson BID via NGT * Monitor BGs, need for NISS w/ TF * Monitor lytes, replete as needed- high risk for refeeding syndrome -> check f/up phos and mag (4) Severe sepsis Assessment & Plan: will likely need trach and peg. patient needs protected airway and nutrition full code no family and unable to consent medically necessary. will plan soon (5) Open upper arm wound (6) Hematuria Assessment & Plan: as per urology Aubrey Gutierrez Oct 17, 2020 17:41
--- NOTE | 2020-10-17 18:33 | Pulmonology Progress Note ---
Subjective ROS Limited/Unobtainable: Yes Constitutional: Denies: fever Gastrointestinal/Abdominal: Reports: diarrhea Allergies: Coded Allergies: VANCOMYCIN (Verified Allergy, Severe, hive, 09/28/20) All Systems: reviewed and negative except above Objective Last 24 Hour Vital Signs Date Time Temp Pulse Resp B/P (MAP) Pulse Ox O2 Delivery O2 Flow Rate FiO2 10/17/20 16:25 82 24 120/78 97 10/17/20 16:00 40 10/17/20 16:00 Mechanical Ventilator 10/17/20 16:00 98.4 88 26 130/86 (101) 97 10/17/20 16:00 86 10/17/20 15:55 98 28 134/86 100 10/17/20 15:19 93 33 40 10/17/20 12:00 81 10/17/20 12:00 Mechanical Ventilator 10/17/20 12:00 40 10/17/20 12:00 98.1 84 25 126/84 (98) 100 10/17/20 11:17 88 32 40 10/17/20 08:53 84 24 118/68 97 10/17/20 08:23 90 24 122/70 98 10/17/20 08:00 97.5 90 24 122/70 (87) 98 10/17/20 08:00 40 10/17/20 08:00 Mechanical Ventilator 10/17/20 07:50 82 10/17/20 07:17 79 25 40 10/17/20 04:00 Mechanical Ventilator 10/17/20 04:00 40 10/17/20 04:00 90 10/17/20 04:00 98.1 86 25 119/86 (97) 98 10/17/20 02:43 92 27 40 10/17/20 00:00 Mechanical Ventilator 10/17/20 00:00 40 10/17/20 00:00 93 10/17/20 00:00 97.0 89 23 117/83 (94) 100 10/16/20 23:09 91 32 40 10/16/20 20:00 98.2 93 24 143/85 (104) 100 10/16/20 20:00 91 10/16/20 20:00 40 10/16/20 20:00 Mechanical Ventilator 10/16/20 19:46 74 21 118/70 95 10/16/20 19:16 89 22 122/83 100 10/16/20 18:49 89 30 40 Intake and Output 10/16/20 10/17/20 19:00 07:00 Intake Total 810 ml 820 ml Output Total 550 ml 600 ml Balance 260 ml 220 ml Free Water 90 ml 100 ml Tube Feeding 720 ml 720 ml Output Urine Total 550 ml 600 ml # Bowel Movements 2 2 Laboratory Tests 10/17/20 04:40: White Blood Count 9.8, Red Blood Count 3.07L, Hemoglobin 8.9L, Hematocrit 27.0L, Mean Corpuscular Volume 88, Mean Corpuscular Hemoglobin 29.1, Mean Corpuscular Hemoglobin Concent 33.1, Red Cell Distribution Width 14.8, Platelet Count 141L, Mean Platelet Volume 7.4, Neutrophils (%) (Auto) 55.9, Lymphocytes (%) (Auto) 30.8, Monocytes (%) (Auto) 9.4, Eosinophils (%) (Auto) 3.2H, Basophils (%) (Auto) 0.7, Sodium Level 139, Potassium Level 4.5, Chloride Level 103, Carbon Dioxide Level 34H, Anion Gap 2L, Blood Urea Nitrogen 34H, Creatinine 1.3, Estimat Glomerular Filtration Rate 54.7, Glucose Level 102, Calcium Level 8.5, Total Bilirubin 0.4, Aspartate Amino Transf (AST/SGOT) 26, Alanine Aminotransferase (ALT/SGPT) 24, Alkaline Phosphatase 81, Pro-B-Type Natriuretic Peptide 968H, Total Protein 8.0, Albumin 1.8L, Globulin 6.2, Albumin/Globulin Ratio 0.3L Current Medications Medications (Trade) Dose Ordered Sig/Aleksander Route PRN Reason Start Time Stop Time Status Last Admin Dose Admin Acetaminophen (Tylenol) 650 mg Q6H PRN NG pain 1-6 10/08/20 15:30 11/07/20 15:14 Ascorbic Acid (Vitamin C) 250 mg DAILY NG 09/26/20 09:00 10/18/20 08:59 10/17/20 08:23 Bisacodyl (Dulcolax) 10 mg DAILYPRN PRN RECTAL Constipation 10/11/20 12:00 01/09/21 11:59 Diphenhydramine HCl (Benadryl) 25 mg Q6H PRN IVP Itching 09/27/20 12:15 10/27/20 12:14 10/17/20 02:35 Diphenoxylate HCl/ Atropine (Lomotil) 2.5 mg Q4H PRN ORAL Diarrhea 09/20/20 08:15 10/20/20 08:14 Docusate Sodium (Colace) 100 mg TWICE A DAY NG 10/11/20 18:00 11/10/20 17:59 10/17/20 17:25 Famotidine (Pepcid) 20 mg BID GT 10/04/20 09:00 01/02/21 08:59 10/17/20 17:25 Finasteride (Proscar) 5 mg DAILY ORAL 09/13/20 09:00 12/12/20 08:59 10/17/20 08:23 Furosemide (Lasix) 40 mg DAILY GT 10/11/20 09:00 11/10/20 08:59 10/17/20 08:23 Lorazepam (Ativan) 1 mg Q4H PRN ORAL Agitation 10/14/20 22:30 10/21/20 22:29 10/17/20 15:55 Multivitamins (Multivitamins W/ Minerals 15ml Liquid) 15 ml DAILY NG 09/26/20 09:00 10/26/20 08:59 10/17/20 08:22 Spironolactone (Aldactone) 25 mg DAILY GT 10/05/20 09:00 11/04/20 08:59 10/17/20 08:23 Tamsulosin HCl (Flomax) 0.4 mg BEDTIME ORAL 10/11/20 21:00 11/10/20 20:59 10/16/20 20:18 Valproic Acid (Depakene) 1,000 mg BEDTIME GT 10/06/20 21:00 10/31/20 20:59 10/16/20 20:18 Zinc Sulfate (Zinc Sulfate) 220 mg DAILY GT 10/06/20 09:00 01/04/21 08:59 10/17/20 08:23 Assessment/Plan Assessment/Plan Pulmonary Progress Note Subjective Allergies: Coded Allergies: No Known Allergies (Unverified , 09/10/20) Subjective remains confused stable oxygen requirements Persistant infiltrates AB per ID TF to SNF once stable CXR improving infiltrates Wean PEEP/FIO2 as tolerated Objective Vital Signs noted Height (Feet): 5 Height (Inches): 7.00 Weight (Pounds): 121 Objective WDWN NAD reduced breath sounds bilaterally without rhonchi or wheeze [id number] without MRG NABS nontender no HSM no CCE nonfocal remains confused Assessment/Plan Assessment/Plan: IMPRESSION: 1. Acute renal failure. 2. Hypernatremia improving 3. Leukocytosis. 4. Pneumonia/ sepsis. 5. Hypotension. 6. Dementia. 7. Acute on chronic encephalopathy. 8. bcx staph Epi 9. MRSA colonized PLAN continue current ventilator settings taper fio2 PRN DC planning to subacute ID noted; monitor follow up on antibiotics monitor oxygen needs off load as able monitor lytes position change monitor imaging d/w consultants and nursing trach care impression, plan, and exam edited and reviewed in detail care discussed with RN Madi Elliott MD Oct 17, 2020 18:33
--- NOTE | 2020-10-17 18:51 | General Progress Note ---
Subjective Allergies: Coded Allergies: VANCOMYCIN (Verified Allergy, Severe, hive, 09/28/20) Subjective confused calm tolerated TF Objective Last 24 Hour Vital Signs Date Time Temp Pulse Resp B/P (MAP) Pulse Ox O2 Delivery O2 Flow Rate FiO2 10/17/20 16:25 82 24 120/78 97 10/17/20 16:00 40 10/17/20 16:00 Mechanical Ventilator 10/17/20 16:00 98.4 88 26 130/86 (101) 97 10/17/20 16:00 86 10/17/20 15:55 98 28 134/86 100 10/17/20 15:19 93 33 40 10/17/20 12:00 81 10/17/20 12:00 Mechanical Ventilator 10/17/20 12:00 40 10/17/20 12:00 98.1 84 25 126/84 (98) 100 10/17/20 11:17 88 32 40 10/17/20 08:53 84 24 118/68 97 10/17/20 08:23 90 24 122/70 98 10/17/20 08:00 97.5 90 24 122/70 (87) 98 10/17/20 08:00 40 10/17/20 08:00 Mechanical Ventilator 10/17/20 07:50 82 10/17/20 07:17 79 25 40 10/17/20 04:00 Mechanical Ventilator 10/17/20 04:00 40 10/17/20 04:00 90 10/17/20 04:00 98.1 86 25 119/86 (97) 98 10/17/20 02:43 92 27 40 10/17/20 00:00 Mechanical Ventilator 10/17/20 00:00 40 10/17/20 00:00 93 10/17/20 00:00 97.0 89 23 117/83 (94) 100 10/16/20 23:09 91 32 40 10/16/20 20:00 98.2 93 24 143/85 (104) 100 10/16/20 20:00 91 10/16/20 20:00 40 10/16/20 20:00 Mechanical Ventilator 10/16/20 19:46 74 21 118/70 95 10/16/20 19:16 89 22 122/83 100 Intake and Output 10/16/20 10/17/20 19:00 07:00 Intake Total 810 ml 820 ml Output Total 550 ml 600 ml Balance 260 ml 220 ml Free Water 90 ml 100 ml Tube Feeding 720 ml 720 ml Output Urine Total 550 ml 600 ml # Bowel Movements 2 2 Laboratory Tests 10/17/20 04:40: White Blood Count 9.8, Red Blood Count 3.07L, Hemoglobin 8.9L, Hematocrit 27.0L, Mean Corpuscular Volume 88, Mean Corpuscular Hemoglobin 29.1, Mean Corpuscular Hemoglobin Concent 33.1, Red Cell Distribution Width 14.8, Platelet Count 141L, Mean Platelet Volume 7.4, Neutrophils (%) (Auto) 55.9, Lymphocytes (%) (Auto) 30.8, Monocytes (%) (Auto) 9.4, Eosinophils (%) (Auto) 3.2H, Basophils (%) (Auto) 0.7, Sodium Level 139, Potassium Level 4.5, Chloride Level 103, Carbon Dioxide Level 34H, Anion Gap 2L, Blood Urea Nitrogen 34H, Creatinine 1.3, Estimat Glomerular Filtration Rate 54.7, Glucose Level 102, Calcium Level 8.5, Total Bilirubin 0.4, Aspartate Amino Transf (AST/SGOT) 26, Alanine Aminotransferase (ALT/SGPT) 24, Alkaline Phosphatase 81, Pro-B-Type Natriuretic Peptide 968H, Total Protein 8.0, Albumin 1.8L, Globulin 6.2, Albumin/Globulin Ratio 0.3L Height (Feet): 6 Height (Inches): 1.00 Weight (Pounds): 148 Objective Thin WM on vent/trach calm, awake Skin: no hematoma or ecchymosis HEENT NCAT supple, (+) trach coarse ronchi RR, slightly tachy abd soft flat ND, (+) GT no edema Assessment/Plan Status: stable Assessment/Plan: Assessment - resp failure - s/p PEG - anemia - OBS/Dementia - sepsis - diarrhea, C Diff (-) - Azotemia, resolved - CHF - malnutrition , low albumin - leukocytosis - hypernatremia Recommendations -Vent care / support - cards and pulm follow up - supportive care - abx - PPI - TF Deborah Cabrera MD Oct 17, 2020 18:51
--- NOTE | 2020-10-17 19:10 | NUR ---
NURSE HAND-OFF REPORT: Important Events on Shift:NA Patient Status: Stable Diet: Gtube Pending Orders: NA Pending Results/Labs:NA Pending MD notification:NA Latest Vital Signs: Temperature 98.4 , Pulse 82 , B/P 120 /78 , Respiratory Rate 24 , O2 SAT 97 , Mechanical Ventilator, O2 Flow Rate 45.0 . Vital Sign Comment: Stable EKG Rhythm: Sinus Rhythm Rhythm change?: N MD Notified?: N -Dr. Gabriel linares MD Response: No New Orders Received Latest Schultz Fall Score: 70 Fall Risk: High Risk Safety Measures: Call light Within Reach, Bed Alarm Zone 2, Side Rails Side Rails x3, Bed position Low and Locked. Fall Precautions: Yellow Socks Door Sign Patient Fall Education Report given to ARTEMIO Xavier.
--- NOTE | 2020-10-17 19:22 | NUR ---
NURSE NOTES: Received report from ARTEMIO Constantino. Pt is asleep, non-verbal, opens eyes but non-tracking. Does not appear to be in distress. SpO2 95% on AC 14, TV 450, FiO2 50, PEEP 5. pvc monitor shows SR. GT intact, 0ml residual running Jevity 1.2 60cc/hr. Condom cath intact and draining well to gravity. L AC 22g flushing well, TKO. Skin issues noted. HOB elevated, side rails x3, call light within reach, bed alarmed, locked, and in lowest position. WIll continue to monitor. Will continue plan of care.
[2020-10-17 20:00] VITALS: BP 112/74
[2020-10-17] MEDS: Tamsulosin 0.4mg cap ORAL SCH (20:18)
[2020-10-17] MEDS: Valproic Acid 250mg/5ml Liquid GT SCH (20:18)
--- NOTE | 2020-10-17 20:30 | General Progress Note ---
Subjective Allergies: Coded Allergies: VANCOMYCIN (Verified Allergy, Severe, hive, 09/28/20) Subjective no change. stable on the vent. awake but confused. does not follow commands. tolerating feeds. fio2 40-45%. waiting for bed at subacute Objective Last 24 Hour Vital Signs Date Time Temp Pulse Resp B/P (MAP) Pulse Ox O2 Delivery O2 Flow Rate FiO2 10/17/20 20:00 40 10/17/20 20:00 Mechanical Ventilator 10/17/20 16:25 82 24 120/78 97 10/17/20 16:00 40 10/17/20 16:00 Mechanical Ventilator 10/17/20 16:00 98.4 88 26 130/86 (101) 97 10/17/20 16:00 86 10/17/20 15:55 98 28 134/86 100 10/17/20 15:19 93 33 40 10/17/20 12:00 81 10/17/20 12:00 Mechanical Ventilator 10/17/20 12:00 40 10/17/20 12:00 98.1 84 25 126/84 (98) 100 10/17/20 11:17 88 32 40 10/17/20 08:53 84 24 118/68 97 10/17/20 08:23 90 24 122/70 98 10/17/20 08:00 97.5 90 24 122/70 (87) 98 10/17/20 08:00 40 10/17/20 08:00 Mechanical Ventilator 10/17/20 07:50 82 10/17/20 07:17 79 25 40 10/17/20 04:00 Mechanical Ventilator 10/17/20 04:00 40 10/17/20 04:00 90 10/17/20 04:00 98.1 86 25 119/86 (97) 98 10/17/20 02:43 92 27 40 10/17/20 00:00 Mechanical Ventilator 10/17/20 00:00 40 10/17/20 00:00 93 10/17/20 00:00 97.0 89 23 117/83 (94) 100 10/16/20 23:09 91 32 40 Intake and Output 10/16/20 10/17/20 19:00 07:00 Intake Total 810 ml 820 ml Output Total 550 ml 600 ml Balance 260 ml 220 ml Free Water 90 ml 100 ml Tube Feeding 720 ml 720 ml Output Urine Total 550 ml 600 ml # Bowel Movements 2 2 Laboratory Tests 10/17/20 04:40: White Blood Count 9.8, Red Blood Count 3.07L, Hemoglobin 8.9L, Hematocrit 27.0L, Mean Corpuscular Volume 88, Mean Corpuscular Hemoglobin 29.1, Mean Corpuscular Hemoglobin Concent 33.1, Red Cell Distribution Width 14.8, Platelet Count 141L, Mean Platelet Volume 7.4, Neutrophils (%) (Auto) 55.9, Lymphocytes (%) (Auto) 30.8, Monocytes (%) (Auto) 9.4, Eosinophils (%) (Auto) 3.2H, Basophils (%) (Auto) 0.7, Sodium Level 139, Potassium Level 4.5, Chloride Level 103, Carbon Dioxide Level 34H, Anion Gap 2L, Blood Urea Nitrogen 34H, Creatinine 1.3, Estimat Glomerular Filtration Rate 54.7, Glucose Level 102, Calcium Level 8.5, Total Bilirubin 0.4, Aspartate Amino Transf (AST/SGOT) 26, Alanine Aminotransferase (ALT/SGPT) 24, Alkaline Phosphatase 81, Pro-B-Type Natriuretic Peptide 968H, Total Protein 8.0, Albumin 1.8L, Globulin 6.2, Albumin/Globulin Ratio 0.3L Height (Feet): 6 Height (Inches): 1.00 Weight (Pounds): 148 Objective General Appearance: WD/WN, confused. EENT: normal ENT inspection. +trach, dressing clean Neck: normal alignment, supple Cardiovascular: normal rate, regular rhythm Respiratory/Chest: rhonchi - bilaterally. diminished BS Abdomen: normal bowel sounds, non tender, soft, no organomegaly Edema: no edema noted Leg (L), no edema noted Leg (R) Neurologic: program planner II-XII grossly normal, responsive, disoriented Lymphatic: normal anterior cervical (L), normal anterior cervical (R), normal posterior cervical (L), normal posterior cervical (R) Assessment/Plan Problem List: (1) PNA (pneumonia) ICD Codes: J18.9 - Pneumonia, unspecified organism SNOMED: 782003314 (2) UTI (urinary tract infection) ICD Codes: N39.0 - Urinary tract infection, site not specified SNOMED: 26010265 (3) Fever ICD Codes: R50.9 - Fever, unspecified SNOMED: 407670661 Qualifiers: Qualified Codes: R50.9 - Fever, unspecified (4) Decubitus skin ulcer ICD Codes: L89.90 - Pressure ulcer of unspecified site, unspecified stage SNOMED: 156312148 (5) Malnutrition ICD Codes: E46 - Unspecified protein-calorie malnutrition SNOMED: 24255845 (6) Severe sepsis ICD Codes: A41.9 - Sepsis, unspecified organism; R65.20 - Severe sepsis without septic shock SNOMED: 16699163 (7) Hematuria ICD Codes: R31.9 - Hematuria, unspecified SNOMED: 86215437 Status: stable Assessment/Plan: cont vent support resp care tube feeds monitor residuals off abx skin care turn q2 cont bp rx anxiolytics sz rx await subacute bed Jason Layne MD Oct 17, 2020 20:30
--- NOTE | 2020-10-17 21:54 | NUR ---
NURSE NOTES: Passed PM meds. Pt tolerated well. Pt is getting restless and agitated. No signs of cardiac or respiratory distress noted. No pain noted.
--- NOTE | 2020-10-17 22:10 | NUR ---
NURSE NOTES: Gave pt ativan 1mg GT for increasing agitation and restlessness. Will continue to monitor.
[2020-10-18] VITALS: BP 105/70
--- NOTE | 2020-10-18 02:00 | NUR ---
NURSE NOTES: Received report from Morentia Jaimes RN. Pt is sleeping. In no apparent distress. Opens eyes but non-tracking. Trach to vent 95% SR on vehicle monitor technician. GT feeding running Jevity 1.2 60cc/hr. HOB elevated. Condom cath draining well to gravity. Lt AC #22g w/o signs of infiltration and flushing well. Side rails up x3, call light within reach, bed alarm engaged, locked, and in lowest position. Will continue POC.
--- NOTE | 2020-10-18 02:00 | NUR ---
NURSE HAND-OFF REPORT: Important Events on Shift:[Non-eventful] Patient Status: [Stable] Diet: [Jevity 1.2 60cc/hr] Pending Orders: [NA] Pending Results/Labs:[NA] Pending MD notification:[NA] Latest Vital Signs: Temperature 98.4 , Pulse 84 , B/P 105 /70 , Respiratory Rate 28 , O2 SAT 96 , Mechanical Ventilator, O2 Flow Rate 45.0 . Vital Sign Comment: [Stable] EKG Rhythm: Sinus Rhythm Rhythm change?: N MD Notified?: N -Dr. Gabriel linares MD Response: No New Orders Received Latest Schultz Fall Score: 70 Fall Risk: High Risk Safety Measures: Call light Within Reach, Bed Alarm Zone 2, Side Rails Side Rails x3, Bed position Low and Locked. Fall Precautions: Yellow Socks Door Sign Patient Fall Education Report given to [ARTEMIO Gilbert].
[2020-10-18] MEDS: LORazepam 1mg tab ORAL PRN ×4 (02:38→22:37)
[2020-10-18 04:00] VITALS: BP 103/72
--- NOTE | 2020-10-18 04:00 | NUR ---
NURSE NOTES: In no apparent. Respirations even and unlabored. Continue to tolerate GT feeding well. HOB elevated. Bed in lowest position, locked, side rails X2 up, Bed alarm engaged. call light within reach. Sr on monitoring engineer. Patient will continue POC.
--- NOTE | 2020-10-18 07:00 | NUR ---
NURSE NOTES: Received patient report from ARTEMIO Gilbert. Patient is AO x1, responsive to verbal stimuli. Patient with vent AC AC 14, TV 450, FiO2 50, PEEP 5.GT intact, 0ml residual running Jevity 1.2 60cc/hr. Condom cath intact and draining well to gravity. L AC 22g flushing well, TKO. call light within reach, bed alarmed, locked, and in lowest position.
--- NOTE | 2020-10-18 07:08 | NUR ---
RESPIRATORY NOTE: PT RECEIVED STABLE ON CMV WITH CURRENT SETTINGS: 12, 450, 40%, +7. ALARMS ARE ON AND AUDIBLE. VENT CIRCUIT IS SECURE AND OUT OF THE WAY. AIRWAY IS MIDLINE, SECURE AND PATENT. NO S/S OF RESPIRATORY DISTRESS NOTED AT THIS TIME WILL CONTINUE TO CLOSELY MONITOR.
[2020-10-18 08:00] VITALS: BP 120/68
[2020-10-18] MEDS: Zinc Sulfate 220mg GT SCH (08:19)
[2020-10-18] MEDS: Docusate 100mg/10ml Liq NG SCH ×2 (08:19→17:37)
[2020-10-18] MEDS: Multivitamins W/Minerals 15 ML UDC NG SCH (08:19)
[2020-10-18] MEDS: Ascorbic Acid 500mg tab NG SCH (08:19)
[2020-10-18] MEDS: Spironolactone 25mg tab GT SCH (08:19)
[2020-10-18] MEDS: Furosemide 40mg tab GT SCH (08:20)
--- NOTE | 2020-10-18 08:57 | Urology Progress Note ---
Assessment/Plan Status: stable Assessment/Plan: 1. Gross hematuria. 2. Pyuria and possible UTI. 3. Proteinuria. 4. BPH. 5. Urinary retention. 6. Probable neurogenic bladder. 7. Possible sepsis. monitor clinically off abx, per ID flomax and proscar cysto electively andrade removed monitor for voiding and reinsert PRN Subjective Allergies: Coded Allergies: VANCOMYCIN (Verified Allergy, Severe, hive, 09/28/20) Subjective remains on vent, trach 09/27 andrade out, voiding/incontinent, condom cath Objective Last 24 Hour Vital Signs Date Time Temp Pulse Resp B/P (MAP) Pulse Ox O2 Delivery O2 Flow Rate FiO2 10/18/20 08:19 84 24 120/68 90 10/18/20 08:00 97.8 84 24 120/68 (85) 90 10/18/20 04:00 Mechanical Ventilator 10/18/20 04:00 40 10/18/20 04:00 98.1 88 28 103/72 (82) 90 10/18/20 04:00 83 10/18/20 03:08 84 28 105/70 96 10/18/20 02:38 84 28 105/70 96 10/18/20 01:30 87 35 40 10/18/20 00:00 98.4 84 28 105/70 (82) 96 10/18/20 00:00 40 10/18/20 00:00 Mechanical Ventilator 10/17/20 22:24 76 24 110/71 99 10/17/20 21:54 86 29 112/74 96 10/17/20 20:00 40 10/17/20 20:00 86 10/17/20 20:00 98.1 84 29 112/74 (87) 96 10/17/20 20:00 Mechanical Ventilator 10/17/20 19:30 87 30 40 10/17/20 16:25 82 24 120/78 97 10/17/20 16:00 40 10/17/20 16:00 Mechanical Ventilator 10/17/20 16:00 98.4 88 26 130/86 (101) 97 10/17/20 16:00 86 10/17/20 15:55 98 28 134/86 100 10/17/20 15:19 93 33 40 10/17/20 12:00 81 10/17/20 12:00 Mechanical Ventilator 10/17/20 12:00 40 10/17/20 12:00 98.1 84 25 126/84 (98) 100 10/17/20 11:17 88 32 40 Intake and Output 10/17/20 10/18/20 19:00 07:00 Intake Total 1120 ml 660 ml Output Total 700 ml Balance 1120 ml -40 ml Free Water 400 ml Tube Feeding 720 ml 660 ml Output Urine Total 700 ml # Bowel Movements 1 Microbiology Date/Time Source Procedure Growth Status 10/09/20 21:17 Urine,Clean Catch Urine Culture - Final Reena Tropicalis Complete 10/09/20 18:00 Sputum Gram Stain - Final Complete 10/09/20 18:00 Sputum Culture - Final Klebsiella Pneumoniae Usual Respiratory Louisa Complete 09/18/20 18:30 Stool Clostridium difficile Toxin Assay - Final Complete 09/17/20 12:58 Blood Blood Culture - Final NO GROWTH AFTER 5 DAYS Complete 09/10/20 17:15 Rectum VRE Culture - Final Enterococcus Faecalis - Vre Complete Current Medications Medications (Trade) Dose Ordered Sig/Aleksander Route PRN Reason Start Time Stop Time Status Last Admin Dose Admin Acetaminophen (Tylenol) 650 mg Q6H PRN NG pain 1-6 10/08/20 15:30 11/07/20 15:14 Ascorbic Acid (Vitamin C) 250 mg DAILY NG 10/18/20 09:00 11/09/20 08:59 10/18/20 08:19 Bisacodyl (Dulcolax) 10 mg DAILYPRN PRN RECTAL Constipation 10/11/20 12:00 01/09/21 11:59 Diphenhydramine HCl (Benadryl) 25 mg Q6H PRN IVP Itching 09/27/20 12:15 10/27/20 12:14 10/17/20 02:35 Diphenoxylate HCl/ Atropine (Lomotil) 2.5 mg Q4H PRN ORAL Diarrhea 09/20/20 08:15 10/20/20 08:14 Docusate Sodium (Colace) 100 mg TWICE A DAY NG 10/11/20 18:00 11/10/20 17:59 10/18/20 08:19 Famotidine (Pepcid) 20 mg BID GT 10/04/20 09:00 01/02/21 08:59 10/18/20 08:19 Finasteride (Proscar) 5 mg DAILY ORAL 09/13/20 09:00 12/12/20 08:59 10/18/20 08:20 Furosemide (Lasix) 40 mg DAILY GT 10/11/20 09:00 11/10/20 08:59 10/18/20 08:20 Lorazepam (Ativan) 1 mg Q4H PRN ORAL Agitation 10/14/20 22:30 10/21/20 22:29 10/18/20 08:19 Multivitamins (Multivitamins W/ Minerals 15ml Liquid) 15 ml DAILY NG 09/26/20 09:00 10/26/20 08:59 10/18/20 08:19 Spironolactone (Aldactone) 25 mg DAILY GT 10/05/20 09:00 11/04/20 08:59 10/18/20 08:19 Tamsulosin HCl (Flomax) 0.4 mg BEDTIME ORAL 10/11/20 21:00 11/10/20 20:59 10/17/20 20:18 Valproic Acid (Depakene) 1,000 mg BEDTIME GT 10/06/20 21:00 10/31/20 20:59 10/17/20 20:18 Zinc Sulfate (Zinc Sulfate) 220 mg DAILY GT 10/06/20 09:00 01/04/21 08:59 10/18/20 08:19 Height (Feet): 6 Height (Inches): 1.00 Weight (Pounds): 148 Objective exam stable Levi Brunson MD Oct 18, 2020 08:57
[2020-10-18 12:00] VITALS: BP 130/86
--- NOTE | 2020-10-18 12:25 | NUR ---
Sewing Room SupervisorFunnel Coater SI: Respiratory Failure, Trach/Vent Dependent, Sepsis T-97.5, HR 90, RR 24 BP 122/70 WBC 9.8, BUN 34 AC 12, TV 450, FiO2 40%, PEEP 7.0, O2 sat 97% IS: Lasix GT Flomax GT Colace GT Step Down Status
--- NOTE | 2020-10-18 12:38 | NUR ---
RD ASSESSMENT & RECOMMENDATIONS SEE CARE ACTIVITY FOR COMPLETE ASSESSMENT DAILY ESTIMATED NEEDS: Needs based on Wound, underweight, critical care/ 55kg 25-33 kcals/kg 1511-8552 total kcals 1.25-2 g protein/kg 69-110 g total protein 25-30 mL/kg 2188-3271 total fluid mLs NUTRITION DIAGNOSIS: * Increased kcal/prot needs R/T wound healing and underweight status aa evidenced by pt admitted w/ wounds including DTI 2 coccyx and stage 1 @ lt ischium, pt @ 73% IBW w/ low BMI per guidelines. * Swallowing difficulty R/T respiratory status as evidenced by s/p code blue (09/22), orally intubated, s/p trach placement (09/27), s/p PEG placement (10/01), on GT feeds. CURRENT TF: Jevity 1.2 @60 ml/hr ENTERAL NUTRITION RECOMMENDATIONS: Jevity 1.2 @ 60ml/hr x 24 hrs to provide 1440ml, 1728kcal, 80g prot, 1162ml free water * Maintain current TF as tolerated * HOB over 30 degrees/ water flush per MD ADDITIONAL RECOMMENDATIONS: * Calibrated daily bedscale wt Per SNF: HT=70" * Wound healing: TF rec @ goal will provide 100% RDI Continue Vit C and ZnSO4, add Davidson BID via TF * Monitor lytes, replete as needed * Monitor hydration status: BUN trend up (34), on diuretics Increase water flushes as medically able
--- NOTE | 2020-10-18 14:12 | Surgery Progress Note ---
Surgery Progress Note Subjective Procedure Performed tracheostomy Additional Comments no acute events Objective Last 24 Hour Vital Signs Date Time Temp Pulse Resp B/P (MAP) Pulse Ox O2 Delivery O2 Flow Rate FiO2 10/18/20 12:52 89 31 40 10/18/20 12:00 98.2 86 26 130/86 (101) 95 10/18/20 12:00 40 10/18/20 12:00 Mechanical Ventilator 10/18/20 12:00 92 10/18/20 08:49 78 24 118/70 97 10/18/20 08:19 84 24 120/68 90 10/18/20 08:00 40 10/18/20 08:00 84 10/18/20 08:00 Mechanical Ventilator 10/18/20 08:00 97.8 84 24 120/68 (85) 90 10/18/20 07:08 84 26 40 10/18/20 04:00 Mechanical Ventilator 10/18/20 04:00 40 10/18/20 04:00 98.1 88 28 103/72 (82) 90 10/18/20 04:00 83 10/18/20 03:08 84 28 105/70 96 10/18/20 02:38 84 28 105/70 96 10/18/20 01:30 87 35 40 10/18/20 00:00 98.4 84 28 105/70 (82) 96 10/18/20 00:00 40 10/18/20 00:00 Mechanical Ventilator 10/17/20 22:24 76 24 110/71 99 10/17/20 21:54 86 29 112/74 96 10/17/20 20:00 40 10/17/20 20:00 86 10/17/20 20:00 98.1 84 29 112/74 (87) 96 10/17/20 20:00 Mechanical Ventilator 10/17/20 19:30 87 30 40 10/17/20 16:25 82 24 120/78 97 10/17/20 16:00 40 10/17/20 16:00 Mechanical Ventilator 10/17/20 16:00 98.4 88 26 130/86 (101) 97 10/17/20 16:00 86 10/17/20 15:55 98 28 134/86 100 10/17/20 15:19 93 33 40 I&O Intake and Output 12/30/20 12/31/20 19:00 07:00 Intake Total 1120 ml 660 ml Output Total 700 ml Balance 1120 ml -40 ml Free Water 400 ml Tube Feeding 720 ml 660 ml Output Urine Total 700 ml # Bowel Movements 1 Dressing: dry Cardiovascular: RSR Respiratory: decreased breath sounds Abdomen: soft, non-tender, present bowel sounds, non-distended Extremities: no tenderness, no cyanosis Plan Problems: (1) Fever Assessment & Plan: maybe developing pneumonia cont abx pulm input thank you (2) Decubitus skin ulcer Assessment & Plan: Patient identified on admission to have multiple scabs on the left arm. mild open scabs with eschar. no drainage. no significant cellulitis. bruising no bilateral extremities noted. no signs of abuse. likely from agitation Sacral coccygeal noted to have a DTI 4.3X2.5CM. which is dark purple . RECOMMEND-CLEAN WITH SALINE, PAT DRY AND APPLY CALAZINE. COVER WITH OPTIFOAM DRESSING. REPLACE EVERY 3 DAYS OR NEEDED LEFT ISCHIUM- STAGE I PRESSURE ULCER MEASURES 4.5X1.7CM. NON-BLANCHABLE ERYTHEMA. RECOMMEND- APPLY CALAZINE AND COVER WITH OPTIFOAM DRESSING. REPLACE EVERY 7 DAYS. Turn q2h off load pressure with pillow off load heels nutritional optimization DIRECTOR ONLINE MARKETING eval will follow with recs thank you (3) Malnutrition Assessment & Plan: Mr. Roman is a 70 year old male [facility] [facility] [place] 09[place]10[place]2020 around 14:00 due to fever. He was found to be hypotensive 91/55 (67), Temp: 100.0, leukocytosis 20.8k and subsequently transferred to ICU for septic shock. The blood culture is reportedly positive for gram positive cocci. NG tube was placed, KUB confirmed the placement to day. Pt is clinically stable with leukocytosis 20.1, improved BUN and creatine, stable hemodynamic without vasopressor. Findings: Mr. Roman is disoriented. He does ot follow commands at this time. Oral cavity is noted to be dried blood concretion likely from NG trauma. No active bleeding site is seen. Due to his level f alertness, already NG tube is in placed, PO trial was not done at this time. Transferred out ICU last night. He is non on tele. Issues: multiple wounds, s.p balaji/nasal/pharyngeal bleeding with blood culture Gram positive cocci leukocytosis trending down from 20k-20k-16k BUN/Creatine trending down from 93/1.9-79/1.3-54/1.1 Temp: 98.1~98.7, Pulse: 62~72, BP: 105/67~120/48, SPO2 98~100% on 2 liter S: Oral cavity is better condition comparison to yesterday. The mucosa is severely erythema without active bleeding. Limited level of alertness for direct therapy. NG in placed O: 1. Laryngeal palpation to trigger spontaneous cough and swallow: Pt triggered cough with laryngeal palpation. Approximately 5~10 seconds after coughing, he triggered swallow. based on this observation, he presents with copious secretion in pharynx and larynx. He continued to have poor secretion management at laryngeal level at this time. NO PO trial was given due to poor secretion at the level of air way with low level of alertness. A: 1. Probable aspiration of his own secretion with poor ability to cough and swallow 2. Dysphagia P: 1. NPO for now 2. Observe his secretion, and level of alertness for PO readiness. DAILY ESTIMATED NEEDS: Needs based on Wound, underweight/ 55kg 30-35 kcals/kg 6616-9026 total kcals 1.25-2 g protein/kg 69-110 g total protein 25-30 mL/kg 0133-2665 total fluid mLs NUTRITION DIAGNOSIS: Increased kcal/prot needs R/T wound healing and underweight status as evidenced by pt admitted w/ wounds including DTI 2 coccyx and stage 1 @ lt ischium, pt @ 73% IBW w/ low BMI per guidelines, s/p NGT insertion, on NGT feeds. CURRENT TF:Jevity 1.2 @ 50ml/hr x 24 hrs ENTERAL NUTRITION RECOMMENDATIONS: Jevity 1.2 @ 60ml/hr x 24 hrs to provide 1440ml, 1728kcal, 80g prot, 1160ml free water * As medically appropriate, increase goal rate to 60ml/hr x 24 hrs to meet 100% est kcal/prot needs * HOB over 30 degrees/ without IVF, H2O flush of 100ml q 8hrs ADDITIONAL RECOMMENDATIONS: * Calibrated daily bedscale wt Per SNF: HT=70" * Wound healing: TF rec @ goal will provide 100% RDI add Vit C 250mg QD, ZnSO4 220mg QD x 10days, Davidson BID via NGT * Monitor BGs, need for NISS w/ TF * Monitor lytes, replete as needed- high risk for refeeding syndrome -> check f/up phos and mag (4) Severe sepsis Assessment & Plan: will likely need trach and peg. patient needs protected airway and nutrition full code no family and unable to consent medically necessary. will plan soon (5) Open upper arm wound (6) Hematuria Assessment & Plan: as per urology Aubrey Gutierrez Oct 18, 2020 14:12
--- NOTE | 2020-10-18 14:59 | Infectious Diseases Prog Note ---
Assessment/Plan Assessment/Plan A 1. Pneumonia with Klebsiella 2. Dementia. 3. Leukocytosis 4. Urinary tract infection treated 5. 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 BPH P 1. Observe off antibiotic Subjective ROS Limited/Unobtainable: Yes Constitutional: Denies: fever Allergies: Coded Allergies: VANCOMYCIN (Verified Allergy, Severe, hive, 09/28/20) Objective Last 24 Hour Vital Signs Date Time Temp Pulse Resp B/P (MAP) Pulse Ox O2 Delivery O2 Flow Rate FiO2 10/18/20 12:52 89 31 40 10/18/20 12:00 98.2 86 26 130/86 (101) 95 10/18/20 12:00 40 10/18/20 12:00 Mechanical Ventilator 10/18/20 12:00 92 10/18/20 08:49 78 24 118/70 97 10/18/20 08:19 84 24 120/68 90 10/18/20 08:00 40 10/18/20 08:00 84 10/18/20 08:00 Mechanical Ventilator 10/18/20 08:00 97.8 84 24 120/68 (85) 90 10/18/20 07:08 84 26 40 10/18/20 04:00 Mechanical Ventilator 10/18/20 04:00 40 10/18/20 04:00 98.1 88 28 103/72 (82) 90 10/18/20 04:00 83 10/18/20 03:08 84 28 105/70 96 10/18/20 02:38 84 28 105/70 96 10/18/20 01:30 87 35 40 10/18/20 00:00 98.4 84 28 105/70 (82) 96 10/18/20 00:00 40 10/18/20 00:00 Mechanical Ventilator 10/17/20 22:24 76 24 110/71 99 10/17/20 21:54 86 29 112/74 96 10/17/20 20:00 40 10/17/20 20:00 86 10/17/20 20:00 98.1 84 29 112/74 (87) 96 10/17/20 20:00 Mechanical Ventilator 10/17/20 19:30 87 30 40 10/17/20 16:25 82 24 120/78 97 10/17/20 16:00 40 10/17/20 16:00 Mechanical Ventilator 10/17/20 16:00 98.4 88 26 130/86 (101) 97 10/17/20 16:00 86 10/17/20 15:55 98 28 134/86 100 10/17/20 15:19 93 33 40 Height (Feet): 6 Height (Inches): 1.00 Weight (Pounds): 148 HEENT: status post trach Respiratory/Chest: other - on ventilator Cardiovascular: normal rate Abdomen: soft, non tender, other - GT feeding Neurologic/Psychiatric: disoriented Musculoskeletal: atrophy Current Medications Medications (Trade) Dose Ordered Sig/Aleksander Route PRN Reason Start Time Stop Time Status Last Admin Dose Admin Acetaminophen (Tylenol) 650 mg Q6H PRN NG pain 1-6 10/08/20 15:30 11/07/20 15:14 Ascorbic Acid (Vitamin C) 250 mg DAILY NG 10/18/20 09:00 11/09/20 08:59 10/18/20 08:19 Bisacodyl (Dulcolax) 10 mg DAILYPRN PRN RECTAL Constipation 10/11/20 12:00 01/09/21 11:59 Diphenhydramine HCl (Benadryl) 25 mg Q6H PRN IVP Itching 09/27/20 12:15 10/27/20 12:14 10/17/20 02:35 Diphenoxylate HCl/ Atropine (Lomotil) 2.5 mg Q4H PRN ORAL Diarrhea 09/20/20 08:15 10/20/20 08:14 Docusate Sodium (Colace) 100 mg TWICE A DAY NG 10/11/20 18:00 11/10/20 17:59 10/18/20 08:19 Famotidine (Pepcid) 20 mg BID GT 10/04/20 09:00 01/02/21 08:59 10/18/20 08:19 Finasteride (Proscar) 5 mg DAILY ORAL 09/13/20 09:00 12/12/20 08:59 10/18/20 08:20 Furosemide (Lasix) 40 mg DAILY GT 10/11/20 09:00 11/10/20 08:59 10/18/20 08:20 Lorazepam (Ativan) 1 mg Q4H PRN ORAL Agitation 10/14/20 22:30 10/21/20 22:29 10/18/20 08:19 Multivitamins (Multivitamins W/ Minerals 15ml Liquid) 15 ml DAILY NG 09/26/20 09:00 10/26/20 08:59 10/18/20 08:19 Spironolactone (Aldactone) 25 mg DAILY GT 10/05/20 09:00 11/04/20 08:59 10/18/20 08:19 Tamsulosin HCl (Flomax) 0.4 mg BEDTIME ORAL 10/11/20 21:00 11/10/20 20:59 10/17/20 20:18 Valproic Acid (Depakene) 1,000 mg BEDTIME GT 10/06/20 21:00 10/31/20 20:59 10/17/20 20:18 Zinc Sulfate (Zinc Sulfate) 220 mg DAILY GT 10/06/20 09:00 01/04/21 08:59 10/18/20 08:19 Bradley Gil MD Oct 18, 2020 14:59
--- NOTE | 2020-10-18 15:13 | General Progress Note ---
Subjective ROS Limited/Unobtainable: Yes Allergies: Coded Allergies: VANCOMYCIN (Verified Allergy, Severe, hive, 09/28/20) Subjective on vent contracted trach placed oxygenation noted in ASTER Objective Last 24 Hour Vital Signs Date Time Temp Pulse Resp B/P (MAP) Pulse Ox O2 Delivery O2 Flow Rate FiO2 10/18/20 15:08 89 31 130/86 95 10/18/20 12:52 89 31 40 10/18/20 12:00 98.2 86 26 130/86 (101) 95 10/18/20 12:00 40 10/18/20 12:00 Mechanical Ventilator 10/18/20 12:00 92 10/18/20 08:49 78 24 118/70 97 10/18/20 08:19 84 24 120/68 90 10/18/20 08:00 40 10/18/20 08:00 84 10/18/20 08:00 Mechanical Ventilator 10/18/20 08:00 97.8 84 24 120/68 (85) 90 10/18/20 07:08 84 26 40 10/18/20 04:00 Mechanical Ventilator 10/18/20 04:00 40 10/18/20 04:00 98.1 88 28 103/72 (82) 90 10/18/20 04:00 83 10/18/20 03:08 84 28 105/70 96 10/18/20 02:38 84 28 105/70 96 10/18/20 01:30 87 35 40 10/18/20 00:00 98.4 84 28 105/70 (82) 96 10/18/20 00:00 40 10/18/20 00:00 Mechanical Ventilator 10/17/20 22:24 76 24 110/71 99 10/17/20 21:54 86 29 112/74 96 10/17/20 20:00 40 10/17/20 20:00 86 10/17/20 20:00 98.1 84 29 112/74 (87) 96 10/17/20 20:00 Mechanical Ventilator 10/17/20 19:30 87 30 40 10/17/20 16:25 82 24 120/78 97 10/17/20 16:00 40 10/17/20 16:00 Mechanical Ventilator 10/17/20 16:00 98.4 88 26 130/86 (101) 97 10/17/20 16:00 86 10/17/20 15:55 98 28 134/86 100 10/17/20 15:19 93 33 40 Intake and Output 10/17/20 10/18/20 19:00 07:00 Intake Total 1120 ml 660 ml Output Total 700 ml Balance 1120 ml -40 ml Free Water 400 ml Tube Feeding 720 ml 660 ml Output Urine Total 700 ml # Bowel Movements 1 Height (Feet): 6 Height (Inches): 1.00 Weight (Pounds): 148 Objective WDWN chronically ill trach in place feeding tube in place reduced breath sounds bilaterally with scattered rhonchi [id number] without MRG NABS nontender no CCE nonfocal poor LOC Assessment/Plan Status: stable Assessment/Plan: IMPRESSION: 1. Acute renal failure. 2. Hypernatremia. 3. Leukocytosis. 4. Possible sepsis. 5. Hypotension. 6. Dementia. 7. Acute on chronic encephalopathy. 8. bcx staph Epi 9. MRSA colonized 10. acute hypoxemic respiratory failure 11. atelectasis/collapse 12. leukocytosis 13. trach PLAN monitor labs taper fio2 as able ID noted; monitor follow up on antibiotics monitor oxygen needs vent support full for now off load as able monitor lytes position change monitor imaging for change d/w consultants and nursing remains critical trach care dc plan to subacute when able impression, plan, and exam edited and reviewed in detail care discussed with Patel Tesfaye MD Oct 18, 2020 15:13
[2020-10-18 15:15] VITALS: BP 106/73
--- NOTE | 2020-10-18 16:35 | General Progress Note ---
Subjective ROS Limited/Unobtainable: Yes Constitutional: Reports: no symptoms HEENT: Reports: no symptoms Cardiovascular: Reports: edema Respiratory: Reports: shortness of breath Gastrointestinal/Abdominal: Reports: difficulty swallowing Genitourinary: Reports: no symptoms Neurologic/Psychiatric: Reports: pre-existing deficit Endocrine: Reports: no symptoms Hematologic/Lymphatic: Reports: no symptoms Allergies: Coded Allergies: VANCOMYCIN (Verified Allergy, Severe, hive, 09/28/20) All Systems: reviewed and negative except above Subjective no events. stable on the vent. no fever or chills. no sob. confused. awake. tolerating feeds. Objective Last 24 Hour Vital Signs Date Time Temp Pulse Resp B/P (MAP) Pulse Ox O2 Delivery O2 Flow Rate FiO2 10/18/20 15:38 86 26 106/73 99 10/18/20 15:15 97.7 86 26 106/73 (84) 99 10/18/20 15:08 89 31 130/86 95 10/18/20 12:52 89 31 40 10/18/20 12:00 98.2 86 26 130/86 (101) 95 10/18/20 12:00 40 10/18/20 12:00 Mechanical Ventilator 10/18/20 12:00 92 10/18/20 08:49 78 24 118/70 97 10/18/20 08:19 84 24 120/68 90 10/18/20 08:00 40 10/18/20 08:00 84 10/18/20 08:00 Mechanical Ventilator 10/18/20 08:00 97.8 84 24 120/68 (85) 90 10/18/20 07:08 84 26 40 10/18/20 04:00 Mechanical Ventilator 10/18/20 04:00 40 10/18/20 04:00 98.1 88 28 103/72 (82) 90 10/18/20 04:00 83 10/18/20 03:08 84 28 105/70 96 10/18/20 02:38 84 28 105/70 96 10/18/20 01:30 87 35 40 10/18/20 00:00 98.4 84 28 105/70 (82) 96 10/18/20 00:00 40 10/18/20 00:00 Mechanical Ventilator 10/17/20 22:24 76 24 110/71 99 10/17/20 21:54 86 29 112/74 96 10/17/20 20:00 40 10/17/20 20:00 86 10/17/20 20:00 98.1 84 29 112/74 (87) 96 10/17/20 20:00 Mechanical Ventilator 10/17/20 19:30 87 30 40 Intake and Output 10/17/20 10/18/20 19:00 07:00 Intake Total 1120 ml 660 ml Output Total 700 ml Balance 1120 ml -40 ml Free Water 400 ml Tube Feeding 720 ml 660 ml Output Urine Total 700 ml # Bowel Movements 1 Height (Feet): 6 Height (Inches): 1.00 Weight (Pounds): 148 Objective General Appearance: WD/WN, confused. EENT: normal ENT inspection. +trach, dressing clean Neck: normal alignment, supple Cardiovascular: normal rate, regular rhythm Respiratory/Chest: rhonchi - bilaterally. 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, responsive, disoriented Lymphatic: normal anterior cervical (L), normal anterior cervical (R), normal posterior cervical (L), normal posterior cervical (R) Assessment/Plan Problem List: (1) PNA (pneumonia) ICD Codes: J18.9 - Pneumonia, unspecified organism SNOMED: 208049734 (2) UTI (urinary tract infection) ICD Codes: N39.0 - Urinary tract infection, site not specified SNOMED: 66918592 (3) Fever ICD Codes: R50.9 - Fever, unspecified SNOMED: 610641181 Qualifiers: Qualified Codes: R50.9 - Fever, unspecified (4) Decubitus skin ulcer ICD Codes: L89.90 - Pressure ulcer of unspecified site, unspecified stage SNOMED: 315760134 (5) Malnutrition ICD Codes: E46 - Unspecified protein-calorie malnutrition SNOMED: 96785259 (6) Severe sepsis ICD Codes: A41.9 - Sepsis, unspecified organism; R65.20 - Severe sepsis without septic shock SNOMED: 26104948 (7) Hematuria ICD Codes: R31.9 - Hematuria, unspecified SNOMED: 87912862 Status: stable Assessment/Plan: cont vent support resp care tube feeds monitor residuals off abx skin care turn q2 cont bp rx anxiolytics sz rx await subacute bed Jason Layne MD Oct 18, 2020 16:35
--- NOTE | 2020-10-18 19:15 | NUR ---
NURSE NOTES: Received report from Jaydon Garcia RN. Patient asleep in bed, afebrile, responds to tactile stimulation and in no apparent cardiac and respiratory distress noted. SR on 5 monitor worker. Trache to vent shiley 8, AC 12 TV 450, FiO2 40 % and PEEP 7 tolerating well and saturating at 98-99%.On jevity 1.2 at 60cc/hr goal intact, patent and infusing well, no residual noted. Soft mittens in bilateral hand. Iv access on L AC 22 G intact, patent and asymptomatic.With andrade catheter to urine bag draining sky yellow urine via gravity. Safety measures in place. Bed in lowest position and locked. Call light within reach. Bed rails are up,padded . Will continue to monitor the patient and plan of care.
--- NOTE | 2020-10-18 19:33 | NUR ---
NURSE HAND-OFF REPORT: Important Events on Shift:none Patient Status: full code Diet: Pending Orders:none Pending Results/Labs:none Pending MD notification:none Latest Vital Signs: Temperature 97.7 , Pulse 81 , B/P 106 /73 , Respiratory Rate 26 , O2 SAT 99 , Mechanical Ventilator, O2 Flow Rate 45.0 . Vital Sign Comment: EKG Rhythm: Sinus Rhythm Rhythm change?: N MD Notified?: N -Dr. Gabriel linares MD Response: No New Orders Received Latest Schultz Fall Score: 70 Fall Risk: High Risk Safety Measures: Call light Within Reach, Bed Alarm Zone 2, Side Rails Side Rails x3, Bed position Low and Locked. Fall Precautions: Yellow Socks Door Sign Patient Fall Education Report given to Gideon.
[2020-10-18 20:00] VITALS: BP 117/82
[2020-10-18] MEDS: Tamsulosin 0.4mg cap ORAL SCH (20:35)
[2020-10-18] MEDS: Valproic Acid 250mg/5ml Liquid GT SCH (20:35)
--- NOTE | 2020-10-18 21:06 | General Progress Note ---
Subjective Allergies: Coded Allergies: VANCOMYCIN (Verified Allergy, Severe, hive, 09/28/20) Subjective calm tolerated TF Objective Last 24 Hour Vital Signs Date Time Temp Pulse Resp B/P (MAP) Pulse Ox O2 Delivery O2 Flow Rate FiO2 10/18/20 19:20 87 28 40 10/18/20 16:47 Mechanical Ventilator 10/18/20 16:38 81 10/18/20 16:00 40 10/18/20 15:38 86 26 106/73 99 10/18/20 15:15 97.7 86 26 106/73 (84) 99 10/18/20 15:08 89 31 130/86 95 10/18/20 12:52 89 31 40 10/18/20 12:00 98.2 86 26 130/86 (101) 95 10/18/20 12:00 40 10/18/20 12:00 Mechanical Ventilator 10/18/20 12:00 92 10/18/20 08:49 78 24 118/70 97 10/18/20 08:19 84 24 120/68 90 10/18/20 08:00 40 10/18/20 08:00 84 10/18/20 08:00 Mechanical Ventilator 10/18/20 08:00 97.8 84 24 120/68 (85) 90 10/18/20 07:08 84 26 40 10/18/20 04:00 Mechanical Ventilator 10/18/20 04:00 40 10/18/20 04:00 98.1 88 28 103/72 (82) 90 10/18/20 04:00 83 10/18/20 03:08 84 28 105/70 96 10/18/20 02:38 84 28 105/70 96 10/18/20 01:30 87 35 40 10/18/20 00:00 98.4 84 28 105/70 (82) 96 10/18/20 00:00 40 10/18/20 00:00 Mechanical Ventilator 10/17/20 22:24 76 24 110/71 99 10/17/20 21:54 86 29 112/74 96 Intake and Output 10/17/20 10/18/20 19:00 07:00 Intake Total 1120 ml 660 ml Output Total 700 ml Balance 1120 ml -40 ml Free Water 400 ml Tube Feeding 720 ml 660 ml Output Urine Total 700 ml # Bowel Movements 1 Height (Feet): 6 Height (Inches): 1.00 Weight (Pounds): 148 Objective Thin WM on vent/trach calm, awake Skin: no hematoma or ecchymosis HEENT NCAT supple, (+) trach coarse ronchi RR, slightly tachy abd soft flat ND, (+) GT no edema Assessment/Plan Status: stable Assessment/Plan: Assessment - resp failure - s/p PEG - anemia - OBS/Dementia - sepsis - diarrhea, C Diff (-) - Azotemia, resolved - CHF - malnutrition , low albumin - leukocytosis - hypernatremia Recommendations -Vent care / support - cards and pulm follow up - supportive care - abx - PPI - TF Deborah Cabrera MD Oct 18, 2020 21:06
[2020-10-19] VITALS: BP 118/81
--- NOTE | 2020-10-19 03:55 | NUR ---
NURSE NOTES: Pt in bed, awake. Sponge bath given, oral care provided. Wound dressing change. Had 1 BM. Gown and linens change. Will continue to monitor pt.
[2020-10-19 04:00] VITALS: BP 115/98
[2020-10-19 05:55] LABS: BASOPHILS % (AUTO) 0.7 % (0.0-2.0); HEMATOCRIT 27.9 % (42.0-52.0); HEMOGLOBIN 8.9 G/DL (14.2-18.0); LYMPHOCYTES % (AUTO) 32.3 % (20.0-45.0); MEAN CORPUSCULAR VOLUME 93 FL (80-99); PLATELET COUNT 167 K/UL (150-450); RED BLOOD COUNT 3.01 M/UL (4.70-6.10); RED CELL DISTRIBUTION WIDTH 14.4 % (11.6-14.8); WHITE BLOOD COUNT 9.6 K/UL (4.8-10.8)
[2020-10-19 06:18] LABS: ALBUMIN 1.7 G/DL (3.4-5.0); ALBUMIN/GLOBULIN RATIO 0.3 (1.0-2.7); BILIRUBIN,TOTAL 0.4 MG/DL (0.2-1.0); CALCIUM 7.9 MG/DL (8.5-10.1); CREATININE 1.3 MG/DL (0.55-1.30); POTASSIUM 4.8 MMOL/L (3.5-5.1)
--- NOTE | 2020-10-19 07:07 | NUR ---
NURSE HAND-OFF REPORT: Important Events on Shift: Stable Patient Status: Stable Diet: Jevity 1.2 Pending Orders: Pending Results/Labs: Pending MD notification: Latest Vital Signs: Temperature 98.4 , Pulse 81 , B/P 115 /98 , Respiratory Rate 30 , O2 SAT 99 , Mechanical Ventilator, O2 Flow Rate 45.0 . Vital Sign Comment: EKG Rhythm: Sinus Tachycardia Rhythm change?: N MD Notified?: MD Response: Latest Schultz Fall Score: 70 Fall Risk: High Risk Safety Measures: Call light Within Reach, Bed Alarm Zone 2, Side Rails Side Rails x3, Bed position Low and Locked. Fall Precautions: Yellow Socks Door Sign Patient Fall Education Report given to ARTEMIO Thornton.
--- NOTE | 2020-10-19 07:08 | NUR ---
NURSE NOTES: Received patient in bed awake, restless. Trache to mech vent in place, no acute distress. IV line intact. Gtube intact, feeding ongoing. SCD in place. Condom catheter in place. Bilateral mittens on. HOB elevated. Bed locked in low position. Call light within reach. Will continue plan of care.
[2020-10-19 08:00] VITALS: BP 123/84
[2020-10-19] MEDS: Docusate 100mg/10ml Liq NG SCH ×2 (09:09→17:26)
[2020-10-19] MEDS: Ascorbic Acid 500mg tab NG SCH (09:09)
[2020-10-19] MEDS: Spironolactone 25mg tab GT SCH (09:09)
[2020-10-19] MEDS: Multivitamins W/Minerals 15 ML UDC NG SCH (09:09)
[2020-10-19] MEDS: Furosemide 40mg tab GT SCH (09:10)
[2020-10-19] MEDS: LORazepam 1mg tab ORAL PRN ×2 (09:12→18:52)
[2020-10-19] MEDS: Zinc Sulfate 220mg GT SCH (09:13)
--- NOTE | 2020-10-19 11:07 | General Progress Note ---
Subjective ROS Limited/Unobtainable: Yes Allergies: Coded Allergies: VANCOMYCIN (Verified Allergy, Severe, hive, 09/28/20) Subjective on vent contracted trach placed oxygenation noted in [facility]ER Objective Last 24 Hour Vital Signs Date Time Temp Pulse Resp B/P (MAP) Pulse Ox O2 Delivery O2 Flow Rate FiO2 10/19/20 09:42 91 19 115/72 100 10/19/20 09:12 98 19 123/84 100 10/19/20 08:00 97.9 98 19 123/84 (97) 100 10/19/20 08:00 99 10/19/20 07:25 102 33 40 10/19/20 04:00 40 10/19/20 04:00 98.4 81 30 115/98 (104) 99 10/19/20 04:00 Mechanical Ventilator 10/19/20 03:43 103 10/19/20 03:15 105 31 40 10/19/20 00:00 Mechanical Ventilator 10/19/20 00:00 98.6 81 35 118/81 (93) 100 10/19/20 00:00 40 10/18/20 23:41 102 10/18/20 23:15 89 34 40 10/18/20 23:07 102 23 121/85 100 10/18/20 22:37 99 23 110/82 100 10/18/20 20:00 Mechanical Ventilator 10/18/20 20:00 40 10/18/20 20:00 98.2 85 34 117/82 (94) 100 10/18/20 19:30 95 10/18/20 19:20 87 28 40 10/18/20 16:47 Mechanical Ventilator 10/18/20 16:38 81 10/18/20 16:00 40 10/18/20 15:38 86 26 106/73 99 10/18/20 15:15 97.7 86 26 106/73 (84) 99 10/18/20 15:08 89 31 130/86 95 10/18/20 12:52 89 31 40 10/18/20 12:00 98.2 86 26 130/86 (101) 95 10/18/20 12:00 40 10/18/20 12:00 Mechanical Ventilator 10/18/20 12:00 92 Intake and Output 10/18/20 10/19/20 19:00 07:00 Intake Total 320 ml 910 ml Output Total 650 ml 700 ml Balance -330 ml 210 ml Free Water 80 ml 250 ml Tube Feeding 240 ml 660 ml Output Urine Total 650 ml 700 ml # Bowel Movements 2 Laboratory Tests 10/19/20 02:50: White Blood Count 9.6, Red Blood Count 3.01L, Hemoglobin 8.9L, Hematocrit 27.9L, Mean Corpuscular Volume 93, Mean Corpuscular Hemoglobin 29.4, Mean Corpuscular Hemoglobin Concent 31.8L, Red Cell Distribution Width 14.4, Platelet Count 167, Mean Platelet Volume 7.4, Neutrophils (%) (Auto) 55.0, Lymphocytes (%) (Auto) 32.3, Monocytes (%) (Auto) 9.0, Eosinophils (%) (Auto) 3.0, Basophils (%) (Auto) 0.7, Sodium Level 137, Potassium Level 4.8, Chloride Level 102, Carbon Dioxide Level 32, Anion Gap 3L, Blood Urea Nitrogen 42H, Creatinine 1.3, Estimat Glomerular Filtration Rate 54.7, Glucose Level 95, Calcium Level 7.9L, Total Bilirubin 0.4, Aspartate Amino Transf (AST/SGOT) 23, Alanine Aminotransferase (ALT/SGPT) 21, Alkaline Phosphatase 77, Total Protein 7.4, Albumin 1.7L, Globulin 5.7, Albumin/Globulin Ratio 0.3L Height (Feet): 6 Height (Inches): 1.00 Weight (Pounds): 148 Objective WDWN chronically ill trach in place feeding tube in place reduced breath sounds bilaterally with scattered rhonchi [id number] without MRG NABS nontender no CCE nonfocal poor LOC Assessment/Plan Status: stable Assessment/Plan: IMPRESSION: 1. Azotemia 2. Hypernatremia. 3. Leukocytosis. 4. Possible sepsis. 5. Hypotension. resolved 6. Dementia. 7. Acute on chronic encephalopathy. 8. Chronic respiratory failure 10. trach PLAN monitor labs taper fio2 as able ID noted; monitor follow up on antibiotics monitor oxygen needs vent support full for now off load as able monitor lytes position change monitor imaging for change d/w consultants and nursing doing poorly dc plan to subacute when able impression, plan, and exam edited and reviewed in detail care discussed with Patel Tesfaye MD Oct 19, 2020 11:07
--- NOTE | 2020-10-19 11:58 | General Progress Note ---
Subjective ROS Limited/Unobtainable: Yes Constitutional: Reports: malaise, weakness HEENT: Reports: no symptoms Cardiovascular: Reports: no symptoms Respiratory: Reports: cough, sputum Gastrointestinal/Abdominal: Reports: difficulty swallowing Genitourinary: Reports: no symptoms Neurologic/Psychiatric: Reports: pre-existing deficit Endocrine: Reports: no symptoms Hematologic/Lymphatic: Reports: no symptoms Allergies: Coded Allergies: VANCOMYCIN (Verified Allergy, Severe, hive, 09/28/20) All Systems: reviewed and negative except above Subjective no events. stable on the vent. no fever or chills. no sob. confused. awake. tolerating feeds. Objective Last 24 Hour Vital Signs Date Time Temp Pulse Resp B/P (MAP) Pulse Ox O2 Delivery O2 Flow Rate FiO2 10/19/20 09:42 91 19 115/72 100 10/19/20 09:12 98 19 123/84 100 10/19/20 08:00 97.9 98 19 123/84 (97) 100 10/19/20 08:00 99 10/19/20 08:00 Mechanical Ventilator 10/19/20 08:00 40 10/19/20 07:25 102 33 40 10/19/20 04:00 40 10/19/20 04:00 98.4 81 30 115/98 (104) 99 10/19/20 04:00 Mechanical Ventilator 10/19/20 03:43 103 10/19/20 03:15 105 31 40 10/19/20 00:00 Mechanical Ventilator 10/19/20 00:00 98.6 81 35 118/81 (93) 100 10/19/20 00:00 40 10/18/20 23:41 102 10/18/20 23:15 89 34 40 10/18/20 23:07 102 23 121/85 100 10/18/20 22:37 99 23 110/82 100 10/18/20 20:00 Mechanical Ventilator 10/18/20 20:00 40 10/18/20 20:00 98.2 85 34 117/82 (94) 100 10/18/20 19:30 95 10/18/20 19:20 87 28 40 10/18/20 16:47 Mechanical Ventilator 10/18/20 16:38 81 10/18/20 16:00 40 10/18/20 15:38 86 26 106/73 99 10/18/20 15:15 97.7 86 26 106/73 (84) 99 10/18/20 15:08 89 31 130/86 95 10/18/20 12:52 89 31 40 10/18/20 12:00 98.2 86 26 130/86 (101) 95 10/18/20 12:00 40 10/18/20 12:00 Mechanical Ventilator 10/18/20 12:00 92 Intake and Output 10/18/20 10/19/20 19:00 07:00 Intake Total 320 ml 910 ml Output Total 650 ml 700 ml Balance -330 ml 210 ml Free Water 80 ml 250 ml Tube Feeding 240 ml 660 ml Output Urine Total 650 ml 700 ml # Bowel Movements 2 Laboratory Tests 10/19/20 02:50: White Blood Count 9.6, Red Blood Count 3.01L, Hemoglobin 8.9L, Hematocrit 27.9L, Mean Corpuscular Volume 93, Mean Corpuscular Hemoglobin 29.4, Mean Corpuscular Hemoglobin Concent 31.8L, Red Cell Distribution Width 14.4, Platelet Count 167, Mean Platelet Volume 7.4, Neutrophils (%) (Auto) 55.0, Lymphocytes (%) (Auto) 32.3, Monocytes (%) (Auto) 9.0, Eosinophils (%) (Auto) 3.0, Basophils (%) (Auto) 0.7, Sodium Level 137, Potassium Level 4.8, Chloride Level 102, Carbon Dioxide Level 32, Anion Gap 3L, Blood Urea Nitrogen 42H, Creatinine 1.3, Estimat Glomerular Filtration Rate 54.7, Glucose Level 95, Calcium Level 7.9L, Total Bilirubin 0.4, Aspartate Amino Transf (AST/SGOT) 23, Alanine Aminotransferase (ALT/SGPT) 21, Alkaline Phosphatase 77, Total Protein 7.4, Albumin 1.7L, Globulin 5.7, Albumin/Globulin Ratio 0.3L Height (Feet): 6 Height (Inches): 1.00 Weight (Pounds): 148 Objective General Appearance: WD/WN, confused. EENT: normal ENT inspection. +trach, dressing clean Neck: normal alignment, supple Cardiovascular: normal rate, regular rhythm Respiratory/Chest: rhonchi - bilaterally. 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 Lymphatic: normal anterior cervical (L), normal anterior cervical (R), normal posterior cervical (L), normal posterior cervical (R) Assessment/Plan Problem List: (1) PNA (pneumonia) ICD Codes: J18.9 - Pneumonia, unspecified organism SNOMED: 060649078 (2) UTI (urinary tract infection) ICD Codes: N39.0 - Urinary tract infection, site not specified SNOMED: 78266663 (3) Fever ICD Codes: R50.9 - Fever, unspecified SNOMED: 311993162 Qualifiers: Qualified Codes: R50.9 - Fever, unspecified (4) Decubitus skin ulcer ICD Codes: L89.90 - Pressure ulcer of unspecified site, unspecified stage SNOMED: 082241329 (5) Malnutrition ICD Codes: E46 - Unspecified protein-calorie malnutrition SNOMED: 65726689 (6) Severe sepsis ICD Codes: A41.9 - Sepsis, unspecified organism; R65.20 - Severe sepsis without septic shock SNOMED: 46013385 (7) Hematuria ICD Codes: R31.9 - Hematuria, unspecified SNOMED: 49279034 Status: stable Assessment/Plan: cont vent support resp care tube feeds monitor residuals skin care turn q2 cont bp rx anxiolytics as needed sz rx await subacute bed Jason Layne MD Oct 19, 2020 11:58
[2020-10-19 12:00] VITALS: BP 108/77
[2020-10-19] MEDS ORDERED: Lomotil 2.5mg tab ORAL PRN (12:15)
--- NOTE | 2020-10-19 13:36 | Surgery Progress Note ---
Surgery Progress Note Subjective Procedure Performed tracheostomy Additional Comments labs stable exam unchanged no n/v comfortable appearing Objective Last 24 Hour Vital Signs Date Time Temp Pulse Resp B/P (MAP) Pulse Ox O2 Delivery O2 Flow Rate FiO2 10/19/20 12:00 97.5 88 26 108/77 (87) 100 10/19/20 09:42 91 19 115/72 100 10/19/20 09:12 98 19 123/84 100 10/19/20 08:00 97.9 98 19 123/84 (97) 100 10/19/20 08:00 99 10/19/20 08:00 Mechanical Ventilator 10/19/20 08:00 40 10/19/20 07:25 102 33 40 10/19/20 04:00 40 10/19/20 04:00 98.4 81 30 115/98 (104) 99 10/19/20 04:00 Mechanical Ventilator 10/19/20 03:43 103 10/19/20 03:15 105 31 40 10/19/20 00:00 Mechanical Ventilator 10/19/20 00:00 98.6 81 35 118/81 (93) 100 10/19/20 00:00 40 10/18/20 23:41 102 10/18/20 23:15 89 34 40 10/18/20 23:07 102 23 121/85 100 10/18/20 22:37 99 23 110/82 100 10/18/20 20:00 Mechanical Ventilator 10/18/20 20:00 40 10/18/20 20:00 98.2 85 34 117/82 (94) 100 10/18/20 19:30 95 10/18/20 19:20 87 28 40 10/18/20 16:47 Mechanical Ventilator 10/18/20 16:38 81 10/18/20 16:00 40 10/18/20 15:38 86 26 106/73 99 10/18/20 15:15 97.7 86 26 106/73 (84) 99 10/18/20 15:08 89 31 130/86 95 I&O Intake and Output 10/18/20 10/19/20 19:00 07:00 Intake Total 320 ml 910 ml Output Total 650 ml 700 ml Balance -330 ml 210 ml Free Water 80 ml 250 ml Tube Feeding 240 ml 660 ml Output Urine Total 650 ml 700 ml # Bowel Movements 2 Dressing: saturated Cardiovascular: RSR Respiratory: decreased breath sounds Abdomen: soft, non-tender, present bowel sounds, non-distended Extremities: no edema, no tenderness, no cyanosis Laboratory Tests Test 10/19/20 02:50 White Blood Count 9.6 K/UL (4.8-10.8) Red Blood Count 3.01 M/UL (4.70-6.10) L Hemoglobin 8.9 G/DL (14.2-18.0) L Hematocrit 27.9 % (42.0-52.0) L Mean Corpuscular Volume 93 FL (80-99) Mean Corpuscular Hemoglobin 29.4 PG (27.0-31.0) Mean Corpuscular Hemoglobin Concent 31.8 G/DL (32.0-36.0) L Red Cell Distribution Width 14.4 % (11.6-14.8) Platelet Count 167 K/UL (150-450) Mean Platelet Volume 7.4 FL (6.5-10.1) Neutrophils (%) (Auto) 55.0 % (45.0-75.0) Lymphocytes (%) (Auto) 32.3 % (20.0-45.0) Monocytes (%) (Auto) 9.0 % (1.0-10.0) Eosinophils (%) (Auto) 3.0 % (0.0-3.0) Basophils (%) (Auto) 0.7 % (0.0-2.0) Sodium Level 137 MMOL/L (136-145) Potassium Level 4.8 MMOL/L (3.5-5.1) Chloride Level 102 MMOL/L (98-107) Carbon Dioxide Level 32 MMOL/L (21-32) Anion Gap 3 mmol/L (5-15) L Blood Urea Nitrogen 42 mg/dL (7-18) H Creatinine 1.3 MG/DL (0.55-1.30) Estimat Glomerular Filtration Rate 54.7 mL/min (>60) Glucose Level 95 MG/DL (74-106) Calcium Level 7.9 MG/DL (8.5-10.1) L Total Bilirubin 0.4 MG/DL (0.2-1.0) Aspartate Amino Transf (AST/SGOT) 23 U/L (15-37) Alanine Aminotransferase (ALT/SGPT) 21 U/L (12-78) Alkaline Phosphatase 77 U/L (46-116) Total Protein 7.4 G/DL (6.4-8.2) Albumin 1.7 G/DL (3.4-5.0) L Globulin 5.7 g/dL Albumin/Globulin Ratio 0.3 (1.0-2.7) L Plan Problems: (1) Fever Assessment & Plan: maybe developing pneumonia cont abx pulm input thank you (2) Decubitus skin ulcer Assessment & Plan: Patient identified on admission to have multiple scabs on the left arm. mild open scabs with eschar. no drainage. no significant cellulitis. bruising no bilateral extremities noted. no signs of abuse. likely from agitation Sacral coccygeal noted to have a DTI 4.3X2.5CM. which is dark purple . RECOMMEND-CLEAN WITH SALINE, PAT DRY AND APPLY CALAZINE. COVER WITH OPTIFOAM DRESSING. REPLACE EVERY 3 DAYS OR NEEDED LEFT ISCHIUM- STAGE I PRESSURE ULCER MEASURES 4.5X1.7CM. NON-BLANCHABLE ERYTHEMA. RECOMMEND- APPLY CALAZINE AND COVER WITH OPTIFOAM DRESSING. REPLACE EVERY 7 DA YS. Turn q2h off load pressure with pillow off load heels nutritional optimization BOBBIN TRUCKER eval will follow with recs thank you (3) Malnutrition Assessment & Plan: Mr. Roman is a 70 year old male BIB[place] to [place] [facility] [place] around 14:00 due to fever. He was found to be hypotensive 91/55 (67), Temp: 100.0, leukocytosis 20.8k and subsequently transferred to ICU for septic shock. The blood culture is reportedly positive for gram positive cocci. NG tube was placed, KUB confirmed the placement to day. Pt is clinically stable with leukocytosis 20.1, improved BUN and creatine, stable hemodynamic without vasopressor. Findings: Mr. Roman is disoriented. He does ot follow commands at this time. Oral cavity is noted to be dried blood concretion likely from NG trauma. No active bleeding site is seen. Due to his level f alertness, already NG tube is in placed, PO trial was not done at this time. Transferred out ICU last night. He is non on tele. Issues: multiple wounds, s.p balaji/nasal/pharyngeal bleeding with blood culture Gram positive cocci leukocytosis trending down from 20k-20k-16k BUN/Creatine trending down from 93/1.9-79/1.3-54/1.1 Temp: 98.1~98.7, Pulse: 62~72, BP: 105/67~120/48, SPO2 98~100% on 2 liter S: Oral cavity is better condition comparison to yesterday. The mucosa is severely erythema without active bleeding. Limited level of alertness for direct therapy. NG in placed O: 1. Laryngeal palpation to trigger spontaneous cough and swallow: Pt triggered cough with laryngeal palpation. Approximately 5~10 seconds after coughing, he triggered swallow. based on this observation, he presents with copious secretion in pharynx and larynx. He continued to have poor secretion management at laryngeal level at this time. NO PO trial was given due to poor secretion at the level of air way with low level of alertness. A: 1. Probable aspiration of his own secretion with poor ability to cough and swallow 2. Dysphagia P: 1. NPO for now 2. Observe his secretion, and level of alertness for PO readiness. DAILY ESTIMATED NEEDS: Needs based on Wound, underweight/ 55kg 30-35 kcals/kg 7351-5584 total kcals 1.25-2 g protein/kg 69-110 g total protein 25-30 mL/kg 5579-1345 total fluid mLs NUTRITION DIAGNOSIS: Increased kcal/prot needs R/T wound healing and underweight status as evidenced by pt admitted w/ wounds including DTI 2 coccyx and stage 1 @ lt ischium, pt @ 73% IBW w/ low BMI per guidelines, s/p NGT insertion, on NGT feeds. CURRENT TF:Jevity 1.2 @ 50ml/hr x 24 hrs ENTERAL NUTRITION RECOMMENDATIONS: Jevity 1.2 @ 60ml/hr x 24 hrs to provide 1440ml, 1728kcal, 80g prot, 1160ml free water * As medically appropriate, increase goal rate to 60ml/hr x 24 hrs to meet 100% est kcal/prot needs * HOB over 30 degrees/ without IVF, H2O flush of 100ml q 8hrs ADDITIONAL RECOMMENDATIONS: * Calibrated daily bedscale wt Per SNF: HT=70" * Wound healing: TF rec @ goal will provide 100% RDI add Vit C 250mg QD, ZnSO4 220mg QD x 10days, Davidson BID via NGT * Monitor BGs, need for NISS w/ TF * Monitor lytes, replete as needed- high risk for refeeding syndrome -> check f/up phos and mag (4) Severe sepsis Assessment & Plan: will likely need trach and peg. patient needs protected airway and nutrition full code no family and unable to consent medically necessary. will plan soon (5) Open upper arm wound (6) Hematuria Assessment & Plan: as per urology Aubrey Gutierrez Oct 19, 2020 13:36
--- NOTE | 2020-10-19 15:16 | NUR ---
CASE MANAGEMENT: REVIEW 10/19/2020 SI:SEVERE SEPSIS. VS: T 97.5 HR 88 RR 26 B/P 108/77 SATS 100% ON MECH VENT FIO2 40 LABS: BUN 42 CA 7.9 IS:DEPAKENE GT QHS FLOMAX PO QHS PROSCAR PO QD LASIX GT QD SDU
[2020-10-19 16:00] VITALS: BP 119/79
[2020-10-19] MEDS ORDERED: NS 275ml ONE (16:04)
--- NOTE | 2020-10-19 17:15 | Urology Progress Note ---
Assessment/Plan Status: stable Assessment/Plan: 1. Gross hematuria. 2. Pyuria and possible UTI. 3. Proteinuria. 4. BPH. 5. Urinary retention. 6. Probable neurogenic bladder. 7. Possible sepsis. monitor clinically off abx, per ID flomax and proscar cysto electively andrade removed monitor for voiding and reinsert PRN Subjective Allergies: Coded Allergies: VANCOMYCIN (Verified Allergy, Severe, hive, 09/28/20) Subjective remains on vent, trach 09/27 andrade out, voiding/incontinent, condom cath Objective Last 24 Hour Vital Signs Date Time Temp Pulse Resp B/P (MAP) Pulse Ox O2 Delivery O2 Flow Rate FiO2 10/19/20 16:00 93 10/19/20 12:00 40 10/19/20 12:00 86 10/19/20 12:00 Mechanical Ventilator 10/19/20 12:00 97.5 88 26 108/77 (87) 100 10/19/20 09:42 91 19 115/72 100 10/19/20 09:12 98 19 123/84 100 10/19/20 08:00 97.9 98 19 123/84 (97) 100 10/19/20 08:00 99 10/19/20 08:00 Mechanical Ventilator 10/19/20 08:00 40 10/19/20 07:25 102 33 40 10/19/20 04:00 40 10/19/20 04:00 98.4 81 30 115/98 (104) 99 10/19/20 04:00 Mechanical Ventilator 10/19/20 03:43 103 10/19/20 03:15 105 31 40 10/19/20 00:00 Mechanical Ventilator 10/19/20 00:00 98.6 81 35 118/81 (93) 100 10/19/20 00:00 40 10/18/20 23:41 102 10/18/20 23:15 89 34 40 10/18/20 23:07 102 23 121/85 100 10/18/20 22:37 99 23 110/82 100 10/18/20 20:00 Mechanical Ventilator 10/18/20 20:00 40 10/18/20 20:00 98.2 85 34 117/82 (94) 100 10/18/20 19:30 95 10/18/20 19:20 87 28 40 Intake and Output 10/18/20 10/19/20 19:00 07:00 Intake Total 320 ml 910 ml Output Total 650 ml 700 ml Balance -330 ml 210 ml Free Water 80 ml 250 ml Tube Feeding 240 ml 660 ml Output Urine Total 650 ml 700 ml # Bowel Movements 2 Microbiology Date/Time Source Procedure Growth Status 10/09/20 21:17 Urine,Clean Catch Urine Culture - Final Reena Tropicalis Complete 10/09/20 18:00 Sputum Gram Stain - Final Complete 10/09/20 18:00 Sputum Culture - Final Klebsiella Pneumoniae Usual Respiratory Louisa Complete 09/18/20 18:30 Stool Clostridium difficile Toxin Assay - Final Complete 09/17/20 12:58 Blood Blood Culture - Final NO GROWTH AFTER 5 DAYS Complete 09/10/20 17:15 Rectum VRE Culture - Final Enterococcus Faecalis - Vre Complete Current Medications Medications (Trade) Dose Ordered Sig/Aleksander Route PRN Reason Start Time Stop Time Status Last Admin Dose Admin Acetaminophen (Tylenol) 650 mg Q6H PRN NG pain 1-6 10/08/20 15:30 11/07/20 15:14 Ascorbic Acid (Vitamin C) 250 mg DAILY NG 10/18/20 09:00 11/09/20 08:59 10/19/20 09:09 Bisacodyl (Dulcolax) 10 mg DAILYPRN PRN RECTAL Constipation 10/11/20 12:00 01/09/21 11:59 Diphenhydramine HCl (Benadryl) 25 mg Q6H PRN IVP Itching 09/27/20 12:15 10/27/20 12:14 10/17/20 02:35 Diphenoxylate HCl/ Atropine (Lomotil) 2.5 mg Q4H PRN ORAL Diarrhea 10/19/20 12:15 11/18/20 08:14 Docusate Sodium (Colace) 100 mg TWICE A DAY NG 10/11/20 18:00 11/10/20 17:59 10/19/20 09:09 Famotidine (Pepcid) 20 mg BID GT 10/04/20 09:00 01/02/21 08:59 10/19/20 09:09 Finasteride (Proscar) 5 mg DAILY ORAL 09/13/20 09:00 12/12/20 08:59 10/19/20 09:13 Furosemide (Lasix) 40 mg DAILY GT 10/11/20 09:00 11/10/20 08:59 10/19/20 09:10 Lorazepam (Ativan) 1 mg Q4H PRN ORAL Agitation 10/14/20 22:30 10/21/20 22:29 10/19/20 09:12 Multivitamins (Multivitamins W/ Minerals 15ml Liquid) 15 ml DAILY NG 09/26/20 09:00 10/26/20 08:59 10/19/20 09:09 Spironolactone (Aldactone) 25 mg DAILY GT 10/05/20 09:00 11/04/20 08:59 10/19/20 09:09 Tamsulosin HCl (Flomax) 0.4 mg BEDTIME ORAL 10/11/20 21:00 11/10/20 20:59 10/18/20 20:35 Valproic Acid (Depakene) 1,000 mg BEDTIME GT 10/06/20 21:00 10/31/20 20:59 10/18/20 20:35 Zinc Sulfate (Zinc Sulfate) 220 mg DAILY GT 10/06/20 09:00 01/04/21 08:59 10/19/20 09:13 Laboratory Tests 10/19/20 02:50: White Blood Count 9.6, Red Blood Count 3.01L, Hemoglobin 8.9L, Hematocrit 27.9L, Mean Corpuscular Volume 93, Mean Corpuscular Hemoglobin 29.4, Mean Corpuscular Hemoglobin Concent 31.8L, Red Cell Distribution Width 14.4, Platelet Count 167, Mean Platelet Volume 7.4, Neutrophils (%) (Auto) 55.0, Lymphocytes (%) (Auto) 32.3, Monocytes (%) (Auto) 9.0, Eosinophils (%) (Auto) 3.0, Basophils (%) (Auto) 0.7, Sodium Level 137, Potassium Level 4.8, Chloride Level 102, Carbon Dioxide Level 32, Anion Gap 3L, Blood Urea Nitrogen 42H, Creatinine 1.3, Estimat Glomerular Filtration Rate 54.7, Glucose Level 95, Calcium Level 7.9L, Total Bilirubin 0.4, Aspartate Amino Transf (AST/SGOT) 23, Alanine Aminotransferase (ALT/SGPT) 21, Alkaline Phosphatase 77, Total Protein 7.4, Albumin 1.7L, Globulin 5.7, Albumin/Globulin Ratio 0.3L Height (Feet): 6 Height (Inches): 1.00 Weight (Pounds): 148 Objective exam stable Levi Brunson MD Oct 19, 2020 17:15
--- NOTE | 2020-10-19 17:27 | Infectious Diseases Prog Note ---
Assessment/Plan Assessment/Plan antibiotics : none A 1. MRSA Pneumonia s/p rx COVID-19 test is negative. 2. Dementia. 3. Leukocytosis improving 4. respiratory failure s/p tracheostomy 5. allergic reaction to vancomycin resolved P 1. continue off antibiotics 2. will follow up cultures Subjective ROS Limited/Unobtainable: Yes Allergies: Coded Allergies: VANCOMYCIN (Verified Allergy, Severe, hive, 09/28/20) Objective Last 24 Hour Vital Signs Date Time Temp Pulse Resp B/P (MAP) Pulse Ox O2 Delivery O2 Flow Rate FiO2 10/19/20 16:00 97.5 91 28 119/79 (92) 99 10/19/20 16:00 93 10/19/20 16:00 Mechanical Ventilator 10/19/20 16:00 40 10/19/20 12:00 40 10/19/20 12:00 86 10/19/20 12:00 Mechanical Ventilator 10/19/20 12:00 97.5 88 26 108/77 (87) 100 10/19/20 09:42 91 19 115/72 100 10/19/20 09:12 98 19 123/84 100 10/19/20 08:00 97.9 98 19 123/84 (97) 100 10/19/20 08:00 99 10/19/20 08:00 Mechanical Ventilator 10/19/20 08:00 40 10/19/20 07:25 102 33 40 10/19/20 04:00 40 10/19/20 04:00 98.4 81 30 115/98 (104) 99 10/19/20 04:00 Mechanical Ventilator 10/19/20 03:43 103 10/19/20 03:15 105 31 40 10/19/20 00:00 Mechanical Ventilator 10/19/20 00:00 98.6 81 35 118/81 (93) 100 10/19/20 00:00 40 10/18/20 23:41 102 10/18/20 23:15 89 34 40 10/18/20 23:07 102 23 121/85 100 10/18/20 22:37 99 23 110/82 100 10/18/20 20:00 Mechanical Ventilator 10/18/20 20:00 40 10/18/20 20:00 98.2 85 34 117/82 (94) 100 10/18/20 19:30 95 10/18/20 19:20 87 28 40 Height (Feet): 6 Height (Inches): 1.00 Weight (Pounds): 148 HEENT: status post trach Respiratory/Chest: lungs clear Cardiovascular: normal rate, regular rhythm, no gallop/murmur Abdomen: soft, non tender, other - GT Extremities: no edema Laboratory Tests Test 10/19/20 02:50 White Blood Count 9.6 K/UL (4.8-10.8) Red Blood Count 3.01 M/UL (4.70-6.10) L Hemoglobin 8.9 G/DL (14.2-18.0) L Hematocrit 27.9 % (42.0-52.0) L Mean Corpuscular Volume 93 FL (80-99) Mean Corpuscular Hemoglobin 29.4 PG (27.0-31.0) Mean Corpuscular Hemoglobin Concent 31.8 G/DL (32.0-36.0) L Red Cell Distribution Width 14.4 % (11.6-14.8) Platelet Count 167 K/UL (150-450) Mean Platelet Volume 7.4 FL (6.5-10.1) Neutrophils (%) (Auto) 55.0 % (45.0-75.0) Lymphocytes (%) (Auto) 32.3 % (20.0-45.0) Monocytes (%) (Auto) 9.0 % (1.0-10.0) Eosinophils (%) (Auto) 3.0 % (0.0-3.0) Basophils (%) (Auto) 0.7 % (0.0-2.0) Sodium Level 137 MMOL/L (136-145) Potassium Level 4.8 MMOL/L (3.5-5.1) Chloride Level 102 MMOL/L (98-107) Carbon Dioxide Level 32 MMOL/L (21-32) Anion Gap 3 mmol/L (5-15) L Blood Urea Nitrogen 42 mg/dL (7-18) H Creatinine 1.3 MG/DL (0.55-1.30) Estimat Glomerular Filtration Rate 54.7 mL/min (>60) Glucose Level 95 MG/DL (74-106) Calcium Level 7.9 MG/DL (8.5-10.1) L Total Bilirubin 0.4 MG/DL (0.2-1.0) Aspartate Amino Transf (AST/SGOT) 23 U/L (15-37) Alanine Aminotransferase (ALT/SGPT) 21 U/L (12-78) Alkaline Phosphatase 77 U/L (46-116) Total Protein 7.4 G/DL (6.4-8.2) Albumin 1.7 G/DL (3.4-5.0) L Globulin 5.7 g/dL Albumin/Globulin Ratio 0.3 (1.0-2.7) L Current Medications Medications (Trade) Dose Ordered Sig/Aleksander Route PRN Reason Start Time Stop Time Status Last Admin Dose Admin Acetaminophen (Tylenol) 650 mg Q6H PRN NG pain 1-6 10/08/20 15:30 11/07/20 15:14 Ascorbic Acid (Vitamin C) 250 mg DAILY NG 10/18/20 09:00 11/09/20 08:59 10/19/20 09:09 Bisacodyl (Dulcolax) 10 mg DAILYPRN PRN RECTAL Constipation 10/11/20 12:00 01/09/21 11:59 Diphenhydramine HCl (Benadryl) 25 mg Q6H PRN IVP Itching 09/27/20 12:15 10/27/20 12:14 10/17/20 02:35 Diphenoxylate HCl/ Atropine (Lomotil) 2.5 mg Q4H PRN ORAL Diarrhea 10/19/20 12:15 11/18/20 08:14 Docusate Sodium (Colace) 100 mg TWICE A DAY NG 10/11/20 18:00 11/10/20 17:59 10/19/20 09:09 Famotidine (Pepcid) 20 mg BID GT 10/04/20 09:00 01/02/21 08:59 10/19/20 09:09 Finasteride (Proscar) 5 mg DAILY ORAL 09/13/20 09:00 12/12/20 08:59 10/19/20 09:13 Furosemide (Lasix) 40 mg DAILY GT 10/11/20 09:00 11/10/20 08:59 10/19/20 09:10 Lorazepam (Ativan) 1 mg Q4H PRN ORAL Agitation 10/14/20 22:30 10/21/20 22:29 10/19/20 09:12 Multivitamins (Multivitamins W/ Minerals 15ml Liquid) 15 ml DAILY NG 09/26/20 09:00 10/26/20 08:59 10/19/20 09:09 Spironolactone (Aldactone) 25 mg DAILY GT 10/05/20 09:00 11/04/20 08:59 10/19/20 09:09 Tamsulosin HCl (Flomax) 0.4 mg BEDTIME ORAL 10/11/20 21:00 11/10/20 20:59 10/18/20 20:35 Valproic Acid (Depakene) 1,000 mg BEDTIME GT 10/06/20 21:00 10/31/20 20:59 10/18/20 20:35 Zinc Sulfate (Zinc Sulfate) 220 mg DAILY GT 10/06/20 09:00 01/04/21 08:59 10/19/20 09:13 Martha Collins MD Oct 19, 2020 17:27
--- NOTE | 2020-10-19 19:00 | NUR ---
NURSE NOTES: Received report from Salmeron RN. Pt is restless but in no apparent distress. Will medicate w/ativan if continue to be restless. Opens eyes but non-tracking. Trach to vent and saturating 97% on curent setting. SR on quality assurance monitor body. GT feeding running Jevity 1.2 60cc/hr w/no residual noted. HOB elevated. Condom cath draining well to gravity. SL w/o signs of infiltration and flushing well. Side rails up x3, call light within reach, bed alarm engaged, locked, and in lowest position. Will continue POC.
--- NOTE | 2020-10-19 19:30 | NUR ---
NURSE HAND-OFF REPORT: Important Events on Shift: Patient Status: restless Diet: jevity 1.2 x 60cc/hr Pending Orders: awaiting placement Pending Results/Labs: Pending MD notification: Latest Vital Signs: Temperature 97.5 , Pulse 93 , B/P 119 /79 , Respiratory Rate 28 , O2 SAT 99 , Mechanical Ventilator, O2 Flow Rate 45.0 . Vital Sign Comment: EKG Rhythm: Sinus Rhythm Rhythm change?: N MD Notified?: N -Dr. Gabriel linares MD Response: No New Orders Received Latest Schultz Fall Score: 70 Fall Risk: High Risk Safety Measures: Call light Within Reach, Bed Alarm Zone 2, Side Rails Side Rails x3, Bed position Low and Locked. Fall Precautions: Yellow Socks Door Sign Patient Fall Education Report given to Vladimir ULLOA.
[2020-10-19 20:00] VITALS: BP 125/84
--- NOTE | 2020-10-19 20:23 | General Progress Note ---
Subjective Allergies: Coded Allergies: VANCOMYCIN (Verified Allergy, Severe, hive, 09/28/20) Subjective calm tolerated TF non communicative Objective Last 24 Hour Vital Signs Date Time Temp Pulse Resp B/P (MAP) Pulse Ox O2 Delivery O2 Flow Rate FiO2 10/19/20 18:52 93 28 119/79 99 10/19/20 16:00 97.5 91 28 119/79 (92) 99 10/19/20 16:00 93 10/19/20 16:00 Mechanical Ventilator 10/19/20 16:00 40 10/19/20 13:10 86 23 40 10/19/20 12:00 40 10/19/20 12:00 86 10/19/20 12:00 Mechanical Ventilator 10/19/20 12:00 97.5 88 26 108/77 (87) 100 10/19/20 09:42 91 19 115/72 100 10/19/20 09:12 98 19 123/84 100 10/19/20 08:00 97.9 98 19 123/84 (97) 100 10/19/20 08:00 99 10/19/20 08:00 Mechanical Ventilator 10/19/20 08:00 40 10/19/20 07:25 102 33 40 10/19/20 04:00 40 10/19/20 04:00 98.4 81 30 115/98 (104) 99 10/19/20 04:00 Mechanical Ventilator 10/19/20 03:43 103 10/19/20 03:15 105 31 40 10/19/20 00:00 Mechanical Ventilator 10/19/20 00:00 98.6 81 35 118/81 (93) 100 10/19/20 00:00 40 10/18/20 23:41 102 10/18/20 23:15 89 34 40 10/18/20 23:07 102 23 121/85 100 10/18/20 22:37 99 23 110/82 100 Intake and Output 10/18/20 10/19/20 19:00 07:00 Intake Total 320 ml 970 ml Output Total 650 ml 700 ml Balance -330 ml 270 ml Free Water 80 ml 250 ml Tube Feeding 240 ml 720 ml Output Urine Total 650 ml 700 ml # Bowel Movements 2 Laboratory Tests 10/19/20 02:50: White Blood Count 9.6, Red Blood Count 3.01L, Hemoglobin 8.9L, Hematocrit 27.9L, Mean Corpuscular Volume 93, Mean Corpuscular Hemoglobin 29.4, Mean Corpuscular Hemoglobin Concent 31.8L, Red Cell Distribution Width 14.4, Platelet Count 167, Mean Platelet Volume 7.4, Neutrophils (%) (Auto) 55.0, Lymphocytes (%) (Auto) 32.3, Monocytes (%) (Auto) 9.0, Eosinophils (%) (Auto) 3.0, Basophils (%) (Auto) 0.7, Sodium Level 137, Potassium Level 4.8, Chloride Level 102, Carbon Dioxide Level 32, Anion Gap 3L, Blood Urea Nitrogen 42H, Creatinine 1.3, Estimat Glomerular Filtration Rate 54.7, Glucose Level 95, Calcium Level 7.9L, Total Bilirubin 0.4, Aspartate Amino Transf (AST/SGOT) 23, Alanine Aminotransferase (ALT/SGPT) 21, Alkaline Phosphatase 77, Total Protein 7.4, Albumin 1.7L, Globulin 5.7, Albumin/Globulin Ratio 0.3L Height (Feet): 6 Height (Inches): 1.00 Weight (Pounds): 148 Objective Thin WM on vent/trach calm, awake Skin: no hematoma or ecchymosis HEENT NCAT supple, (+) trach coarse ronchi RR, slightly tachy abd soft flat ND, (+) GT no edema Assessment/Plan Status: stable Assessment/Plan: Assessment - resp failure - s/p PEG - anemia - OBS/Dementia - sepsis - diarrhea, C Diff (-) - Azotemia, resolved - CHF - malnutrition , low albumin - leukocytosis - hypernatremia Recommendations -Vent care / support - cards and pulm follow up - supportive care - abx - PPI - TF Deborah Cabrera MD Oct 19, 2020 20:23
[2020-10-19] MEDS: DiphenhydrAMINE 50mg/ml Inj IVP PRN (21:46)
[2020-10-19] MEDS: Valproic Acid 250mg/5ml Liquid GT SCH (21:46)
[2020-10-19] MEDS: Tamsulosin 0.4mg cap ORAL SCH (21:46)
[2020-10-20] VITALS: BP 111/72
--- NOTE | 2020-10-20 | NUR ---
NURSE NOTES: Eyes close. Oral care done. Respirations even and unlabored. SR on cardiac monitor technician. No significant changes noted. VSS afebrile. In no apparent distress.
[2020-10-20] MEDS: LORazepam 1mg tab ORAL PRN ×4 (00:50→23:53)
[2020-10-20 04:00] VITALS: BP 121/84
--- NOTE | 2020-10-20 04:00 | NUR ---
NURSE NOTES: Remain restless. Respirations even and unlabored. SR on logging contractor. No significant changes noted. VSS afebrile. In no apparent distress. Will continue to monitor.
[2020-10-20] MEDS: DiphenhydrAMINE 50mg/ml Inj IVP PRN ×3 (06:26→21:30)
--- NOTE | 2020-10-20 07:26 | NUR ---
HAND-OFF: Report given to Ally Bowling RN.
[2020-10-20 08:00] VITALS: BP 129/81
--- NOTE | 2020-10-20 08:11 | NUR ---
NURSE NOTES: Received patient report from ARTEMIO Gilbert. Patient shows no signs of distress or pain at the time. Patient is AO x0 nonverbal. Patient is on Trach/ vent Shiley 8 AC 12, TDV 450, FIO2 40%, PEEP 7 saturating at 97%. Patient is on G tube feeding running Jevity 1.2 @60 cc/ hr. There was no residual noted, patent and flushed. Patient has condom catheter. IV is intact and patent. There are no signs of erythema, infiltration, or bleeding. Bed is in the lowest position, call light is within reach, side rails up x3. Will continue to monitor.
[2020-10-20] MEDS: Zinc Sulfate 220mg GT SCH (08:57)
[2020-10-20] MEDS: Ascorbic Acid 500mg tab NG SCH (08:57)
[2020-10-20] MEDS: Spironolactone 25mg tab GT SCH (08:58)
[2020-10-20] MEDS: Furosemide 40mg tab GT SCH (08:59)
[2020-10-20] MEDS: Docusate 100mg/10ml Liq NG SCH ×2 (09:00→17:18)
[2020-10-20] MEDS: Multivitamins W/Minerals 15 ML UDC NG SCH (09:04)
--- NOTE | 2020-10-20 09:43 | NUR ---
*-*DISCHARGE PLANING*-* PATIENT HAS BEEN REFERRED TO: ROBERTA ELLISON P: [phone] S/W YAW, SHE STATED THAT WILL LOOK FORWARD TO ACCEPTING THIS PATIENT, DUE TO STAFFING AND COVID OUTBREAK.
--- NOTE | 2020-10-20 10:22 | NUR ---
CASE MANAGEMENT: REVIEW 10/20/2020 SI:SEVERE SEPSIS. VS: T 97.59 HR 82 RR 28 B/P 121/84 SATS 100% ON MECH VENT FIO2 40 LABS: NO LABS TODAY IS:DEPAKENE GT QHS FLOMAX PO QHS PROSCAR PO QD LASIX GT QD SDU
[2020-10-20 12:00] VITALS: BP 122/86
--- NOTE | 2020-10-20 12:25 | General Progress Note ---
Subjective ROS Limited/Unobtainable: No Constitutional: Reports: malaise, weakness HEENT: Reports: no symptoms Cardiovascular: Reports: edema Respiratory: Reports: shortness of breath, sputum Gastrointestinal/Abdominal: Reports: difficulty swallowing Genitourinary: Reports: no symptoms Neurologic/Psychiatric: Reports: pre-existing deficit Endocrine: Reports: no symptoms Hematologic/Lymphatic: Reports: no symptoms Allergies: Coded Allergies: VANCOMYCIN (Verified Allergy, Severe, hive, 09/28/20) All Systems: reviewed and negative except above Subjective no events. stable on the vent. no fever or chills. no sob. confused. awake. tolerating feeds. Objective Last 24 Hour Vital Signs Date Time Temp Pulse Resp B/P (MAP) Pulse Ox O2 Delivery O2 Flow Rate FiO2 10/20/20 12:00 98.9 90 26 122/86 (98) 100 10/20/20 08:10 81 26 40 10/20/20 08:00 98.3 86 24 129/81 (97) 100 10/20/20 08:00 Mechanical Ventilator 10/20/20 08:00 40 10/20/20 07:50 83 10/20/20 06:53 82 28 111/72 100 10/20/20 06:18 82 28 111/72 100 10/20/20 04:00 Mechanical Ventilator 10/20/20 04:00 89 10/20/20 04:00 40 10/20/20 04:00 97.9 82 28 121/84 (96) 100 10/20/20 01:30 82 28 40 10/20/20 01:20 98 28 111/72 100 10/20/20 00:50 86 31 125/84 99 10/20/20 00:00 40 10/20/20 00:00 Mechanical Ventilator 10/20/20 00:00 86 10/20/20 00:00 97.0 75 24 111/72 (85) 100 10/19/20 21:13 100 31 125/84 99 10/19/20 20:00 40 10/19/20 20:00 Mechanical Ventilator 10/19/20 20:00 98.2 98 31 125/84 (98) 99 10/19/20 20:00 100 10/19/20 19:25 100 32 40 10/19/20 18:52 93 28 119/79 99 10/19/20 16:00 97.5 91 28 119/79 (92) 99 10/19/20 16:00 93 10/19/20 16:00 Mechanical Ventilator 10/19/20 16:00 40 10/19/20 13:10 86 23 40 Intake and Output 10/19/20 10/20/20 19:00 07:00 Intake Total 720 ml 760 ml Output Total 1150 ml 600 ml Balance -430 ml 160 ml Free Water 100 ml Tube Feeding 720 ml 660 ml Output Urine Total 1150 ml 600 ml # Bowel Movements 4 3 Height (Feet): 6 Height (Inches): 1.00 Weight (Pounds): 148 Objective General Appearance: WD/WN, confused. EENT: normal ENT inspection. +trach, dressing clean Neck: normal alignment, supple Cardiovascular: normal rate, regular rhythm Respiratory/Chest: rhonchi - bilaterally. diminished BS Abdomen: normal bowel sounds, non tender, soft, no organomegaly Edema: no edema noted Leg (L), no edema noted Leg (R) Neurologic: dough braker II-XII grossly normal, responsive, disoriented Lymphatic: normal anterior cervical (L), normal anterior cervical (R), normal p osterior cervical (L), normal posterior cervical (R) Assessment/Plan Problem List: (1) PNA (pneumonia) ICD Codes: J18.9 - Pneumonia, unspecified organism SNOMED: 560301758 (2) UTI (urinary tract infection) ICD Codes: N39.0 - Urinary tract infection, site not specified SNOMED: 00595021 (3) Fever ICD Codes: R50.9 - Fever, unspecified SNOMED: 979663130 Qualifiers: Qualified Codes: R50.9 - Fever, unspecified (4) Decubitus skin ulcer ICD Codes: L89.90 - Pressure ulcer of unspecified site, unspecified stage SNOMED: 987212701 (5) Malnutrition ICD Codes: E46 - Unspecified protein-calorie malnutrition SNOMED: 69781158 (6) Severe sepsis ICD Codes: A41.9 - Sepsis, unspecified organism; R65.20 - Severe sepsis without septic shock SNOMED: 16561456 (7) Hematuria ICD Codes: R31.9 - Hematuria, unspecified SNOMED: 12011072 Status: stable Assessment/Plan: cont vent support resp care tube feeds monitor residuals skin care turn q2 cont bp rx anxiolytics as needed sz rx await subacute bed Uomoto,Jason M. MD Oct 20, 2020 12:25
--- NOTE | 2020-10-20 13:59 | Infectious Diseases Prog Note ---
Assessment/Plan Assessment/Plan A 1. Pneumonia with Klebsiella treated 2. Dementia. 3. Leukocytosis 4. Urinary tract infection treated 5. 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 BPH P 1. Observe off antibiotic Subjective ROS Limited/Unobtainable: Yes Constitutional: Denies: fever Neurologic: Reports: confusion, other - restrained by mittens Allergies: Coded Allergies: VANCOMYCIN (Verified Allergy, Severe, hive, 09/28/20) Objective Last 24 Hour Vital Signs Date Time Temp Pulse Resp B/P (MAP) Pulse Ox O2 Delivery O2 Flow Rate FiO2 10/20/20 12:00 40 10/20/20 12:00 Mechanical Ventilator 10/20/20 12:00 98.9 90 26 122/86 (98) 100 10/20/20 12:00 86 10/20/20 08:10 81 26 40 10/20/20 08:00 98.3 86 24 129/81 (97) 100 10/20/20 08:00 Mechanical Ventilator 10/20/20 08:00 40 10/20/20 07:50 83 10/20/20 06:53 82 28 111/72 100 10/20/20 06:18 82 28 111/72 100 10/20/20 04:00 Mechanical Ventilator 10/20/20 04:00 89 10/20/20 04:00 40 10/20/20 04:00 97.9 82 28 121/84 (96) 100 10/20/20 01:30 82 28 40 10/20/20 01:20 98 28 111/72 100 10/20/20 00:50 86 31 125/84 99 10/20/20 00:00 40 10/20/20 00:00 Mechanical Ventilator 10/20/20 00:00 86 10/20/20 00:00 97.0 75 24 111/72 (85) 100 10/19/20 21:13 100 31 125/84 99 10/19/20 20:00 40 10/19/20 20:00 Mechanical Ventilator 10/19/20 20:00 98.2 98 31 125/84 (98) 99 10/19/20 20:00 100 10/19/20 19:25 100 32 40 10/19/20 18:52 93 28 119/79 99 10/19/20 16:00 97.5 91 28 119/79 (92) 99 10/19/20 16:00 93 10/19/20 16:00 Mechanical Ventilator 10/19/20 16:00 40 Height (Feet): 6 Height (Inches): 1.00 Weight (Pounds): 148 HEENT: status post trach Respiratory/Chest: other - coarse sounds, on ventilator Cardiovascular: normal rate Abdomen: soft, non tender, other - GT feeding Extremities: no edema Neurologic/Psychiatric: aphasia Current Medications Medications (Trade) Dose Ordered Sig/Aleksander Route PRN Reason Start Time Stop Time Status Last Admin Dose Admin Acetaminophen (Tylenol) 650 mg Q6H PRN NG pain 1-6 10/08/20 15:30 11/07/20 15:14 Ascorbic Acid (Vitamin C) 250 mg DAILY NG 10/18/20 09:00 11/09/20 08:59 10/20/20 08:57 Bisacodyl (Dulcolax) 10 mg DAILYPRN PRN RECTAL Constipation 10/11/20 12:00 01/09/21 11:59 Diphenhydramine HCl (Benadryl) 25 mg Q6H PRN IVP Itching 09/27/20 12:15 10/27/20 12:14 10/20/20 06:26 Diphenoxylate HCl/ Atropine (Lomotil) 2.5 mg Q4H PRN ORAL Diarrhea 10/19/20 12:15 11/18/20 08:14 Docusate Sodium (Colace) 100 mg TWICE A DAY NG 10/11/20 18:00 11/10/20 17:59 10/20/20 09:00 Famotidine (Pepcid) 20 mg BID GT 10/04/20 09:00 01/02/21 08:59 10/20/20 08:57 Finasteride (Proscar) 5 mg DAILY ORAL 09/13/20 09:00 12/12/20 08:59 10/20/20 08:59 Furosemide (Lasix) 40 mg DAILY GT 10/11/20 09:00 11/10/20 08:59 10/20/20 08:59 Lorazepam (Ativan) 1 mg Q4H PRN ORAL Agitation 10/14/20 22:30 10/21/20 22:29 10/20/20 06:18 Multivitamins (Multivitamins W/ Minerals 15ml Liquid) 15 ml DAILY NG 09/26/20 09:00 10/26/20 08:59 10/20/20 09:04 Spironolactone (Aldactone) 25 mg DAILY GT 10/05/20 09:00 11/04/20 08:59 10/20/20 08:58 Tamsulosin HCl (Flomax) 0.4 mg BEDTIME ORAL 10/11/20 21:00 11/10/20 20:59 10/19/20 21:46 Valproic Acid (Depakene) 1,000 mg BEDTIME GT 10/06/20 21:00 10/31/20 20:59 10/19/20 21:46 Zinc Sulfate (Zinc Sulfate) 220 mg DAILY GT 10/06/20 09:00 01/04/21 08:59 10/20/20 08:57 Bradley Gil MD Oct 20, 2020 13:59
--- NOTE | 2020-10-20 14:36 | General Progress Note ---
Subjective ROS Limited/Unobtainable: Yes Allergies: Coded Allergies: VANCOMYCIN (Verified Allergy, Severe, hive, 09/28/20) Subjective on vent contracted trach placed oxygenation noted in ASTER Objective Last 24 Hour Vital Signs Date Time Temp Pulse Resp B/P (MAP) Pulse Ox O2 Delivery O2 Flow Rate FiO2 10/20/20 14:05 94 26 130/86 100 10/20/20 12:00 40 10/20/20 12:00 Mechanical Ventilator 10/20/20 12:00 98.9 90 26 122/86 (98) 100 10/20/20 12:00 86 10/20/20 08:10 81 26 40 10/20/20 08:00 98.3 86 24 129/81 (97) 100 10/20/20 08:00 Mechanical Ventilator 10/20/20 08:00 40 10/20/20 07:50 83 10/20/20 06:53 82 28 111/72 100 10/20/20 06:18 82 28 111/72 100 10/20/20 04:00 Mechanical Ventilator 10/20/20 04:00 89 10/20/20 04:00 40 10/20/20 04:00 97.9 82 28 121/84 (96) 100 10/20/20 01:30 82 28 40 10/20/20 01:20 98 28 111/72 100 10/20/20 00:50 86 31 125/84 99 10/20/20 00:00 40 10/20/20 00:00 Mechanical Ventilator 10/20/20 00:00 86 10/20/20 00:00 97.0 75 24 111/72 (85) 100 10/19/20 21:13 100 31 125/84 99 10/19/20 20:00 40 10/19/20 20:00 Mechanical Ventilator 10/19/20 20:00 98.2 98 31 125/84 (98) 99 10/19/20 20:00 100 10/19/20 19:25 100 32 40 10/19/20 18:52 93 28 119/79 99 10/19/20 16:00 97.5 91 28 119/79 (92) 99 10/19/20 16:00 93 10/19/20 16:00 Mechanical Ventilator 10/19/20 16:00 40 Intake and Output 10/19/20 10/20/20 19:00 07:00 Intake Total 720 ml 760 ml Output Total 1150 ml 600 ml Balance -430 ml 160 ml Free Water 100 ml Tube Feeding 720 ml 660 ml Output Urine Total 1150 ml 600 ml # Bowel Movements 4 3 Height (Feet): 6 Height (Inches): 1.00 Weight (Pounds): 148 Objective WDWN chronically ill trach in place feeding tube in place reduced breath sounds bilaterally with scattered rhonchi [id number] without MRG NABS nontender no CCE nonfocal poor LOC Assessment/Plan Status: stable Assessment/Plan: IMPRESSION: 1. Azotemia 2. Hypernatremia. 3. Leukocytosis. 4. Possible sepsis. 5. Hypotension. resolved 6. Dementia. 7. Acute on chronic encephalopathy. 8. Chronic respiratory failure 10. trach PLAN monitor labs taper fio2 as able ID noted; monitor follow up on antibiotics monitor oxygen needs vent support full for now off load as able monitor lytes position change monitor imaging for change d/w consultants and nursing doing poorly dc plan to subacute when able impression, plan, and exam edited and reviewed in detail care discussed with Patel Tesfaye MD Oct 20, 2020 14:36
--- NOTE | 2020-10-20 15:55 | Surgery Progress Note ---
Surgery Progress Note Subjective Procedure Performed tracheostomy Additional Comments ill appearing no n/v labs noted exam stable Objective Last 24 Hour Vital Signs Date Time Temp Pulse Resp B/P (MAP) Pulse Ox O2 Delivery O2 Flow Rate FiO2 10/20/20 14:35 103 26 128/83 100 10/20/20 14:05 94 26 130/86 100 10/20/20 12:00 40 10/20/20 12:00 Mechanical Ventilator 10/20/20 12:00 98.9 90 26 122/86 (98) 100 10/20/20 12:00 86 10/20/20 08:10 81 26 40 10/20/20 08:00 98.3 86 24 129/81 (97) 100 10/20/20 08:00 Mechanical Ventilator 10/20/20 08:00 40 10/20/20 07:50 83 10/20/20 06:53 82 28 111/72 100 10/20/20 06:18 82 28 111/72 100 10/20/20 04:00 Mechanical Ventilator 10/20/20 04:00 89 10/20/20 04:00 40 10/20/20 04:00 97.9 82 28 121/84 (96) 100 10/20/20 01:30 82 28 40 10/20/20 01:20 98 28 111/72 100 10/20/20 00:50 86 31 125/84 99 10/20/20 00:00 40 10/20/20 00:00 Mechanical Ventilator 10/20/20 00:00 86 10/20/20 00:00 97.0 75 24 111/72 (85) 100 10/19/20 21:13 100 31 125/84 99 10/19/20 20:00 40 10/19/20 20:00 Mechanical Ventilator 10/19/20 20:00 98.2 98 31 125/84 (98) 99 10/19/20 20:00 100 10/19/20 19:25 100 32 40 10/19/20 18:52 93 28 119/79 99 10/19/20 16:00 97.5 91 28 119/79 (92) 99 10/19/20 16:00 93 10/19/20 16:00 Mechanical Ventilator 10/19/20 16:00 40 I&O Intake and Output 10/19/20 10/20/20 19:00 07:00 Intake Total 720 ml 760 ml Output Total 1150 ml 600 ml Balance -430 ml 160 ml Free Water 100 ml Tube Feeding 720 ml 660 ml Output Urine Total 1150 ml 600 ml # Bowel Movements 4 3 Dressing: saturated Cardiovascular: RSR Respiratory: decreased breath sounds Abdomen: non-tender, present bowel sounds Extremities: no tenderness, no cyanosis Plan Problems: (1) Fever Assessment & Plan: maybe developing pneumonia cont abx pulm input thank you (2) Decubitus skin ulcer Assessment & Plan: Patient identified on admission to have multiple scabs on the left arm. mild open scabs with eschar. no drainage. no significant cellulitis. bruising no bilateral extremities noted. no signs of abuse. likely from agitation Sacral coccygeal noted to have a DTI 4.3X2.5CM. which is dark purple . RECOMMEND-CLEAN WITH SALINE, PAT DRY AND APPLY CALAZINE. COVER WITH OPTIFOAM DRESSING. REPLACE EVERY 3 DAYS OR NEEDED LEFT ISCHIUM- STAGE I PRESSURE ULCER MEASURES 4.5X1.7CM. NON-BLANCHABLE ERYTHEMA. RECOMMEND- APPLY CALAZINE AND COVER WITH OPTIFOAM DRESSING. REPLACE EVERY 7 DAYS. Turn q2h off load pressure with pillow off load heels nutritional optimization [employer]OR eval will follow with recs thank you (3) Malnutrition Assessment & Plan: Mr. Roman is a 70 year old male BIBA to [place] [facility] [place] around 14:00 due to fever. He was found to be hypotensive 91/55 (67), Temp: 100.0, leukocytosis 20.8k and subsequently transferred to ICU for septic shock. The blood culture is reportedly positive for gram positive cocci. NG tube was placed, KUB confirmed the placement to day. Pt is clinically stable with leukocytosis 20.1, improved BUN and creatine, stable hemodynamic without vasopressor. Findings: Mr. Roman is disoriented. He does ot follow commands at this time. Oral cavity is noted to be dried blood concretion likely from NG trauma. No active bleeding site is seen. Due to his level f alertness, already NG tube is in placed, PO trial was not done at this time. Transferred out ICU last night. He is non on tele. Issues: multiple wounds, s.p balaji/nasal/pharyngeal bleeding with blood culture Gram positive cocci leukocytosis trending down from 20k-20k-16k BUN/Creatine trending down from 93/1.9-79/1.3-54/1.1 Temp: 98.1~98.7, Pulse: 62~72, BP: 105/67~120/48, SPO2 98~100% on 2 liter S: Oral cavity is better condition comparison to yesterday. The mucosa is severely erythema without active bleeding. Limited level of alertness for direct therapy. NG in placed O: 1. Laryngeal palpation to trigger spontaneous cough and swallow: Pt triggered cough with laryngeal palpation. Approximately 5~10 seconds after coughing, he triggered swallow. based on this observation, he presents with copious secretion in pharynx and larynx. He continued to have poor secretion management at laryngeal level at this time. NO PO trial was given due to poor secretion at the level of air way with low level of alertness. A: 1. Probable aspiration of his own secretion with poor ability to cough and swallow 2. Dysphagia P: 1. NPO for now 2. Observe his secretion, and level of alertness for PO readiness. DAILY ESTIMATED NEEDS: Needs based on Wound, underweight/ 55kg 30-35 kcals/kg 3948-3949 total kcals 1.25-2 g protein/kg 69-110 g total protein 25-30 mL/kg 5581-2753 total fluid mLs NUTRITION DIAGNOSIS: Increased kcal/prot needs R/T wound healing and underweight status as evidenced by pt admitted w/ wounds including DTI 2 coccyx and stage 1 @ lt ischium, pt @ 73% IBW w/ low BMI per guidelines, s/p NGT insertion, on NGT feeds. CURRENT TF:Jevity 1.2 @ 50ml/hr x 24 hrs ENTERAL NUTRITION RECOMMENDATIONS: Jevity 1.2 @ 60ml/hr x 24 hrs to provide 1440ml, 1728kcal, 80g prot, 1160ml free water * As medically appropriate, increase goal rate to 60ml/hr x 24 hrs to meet 100% est kcal/prot needs * HOB over 30 degrees/ without IVF, H2O flush of 100ml q 8hrs ADDITIONAL RECOMMENDATIONS: * Calibrated daily bedscale wt Per SNF: HT=70" * Wound healing: TF rec @ goal will provide 100% RDI add Vit C 250mg QD, ZnSO4 220mg QD x 10days, Davidson BID via NGT * Monitor BGs, need for NISS w/ TF * Monitor lytes, replete as needed- high risk for refeeding syndrome -> check f/up phos and mag (4) Severe sepsis Assessment & Plan: will likely need trach and peg. patient needs protected airway and nutrition full code no family and unable to consent medically necessary. will plan soon (5) Open upper arm wound (6) Hematuria Assessment & Plan: as per urology Aubrey Gutierrez Oct 20, 2020 15:55
[2020-10-20 16:00] VITALS: BP 122/83
--- NOTE | 2020-10-20 19:00 | NUR ---
NURSE NOTES: Received report from Ally Bowling RN. Pt is restless. Opens eyes but non-tracking. Trach to vent and saturating well on current setting. SR on air sampling and monitoring. GT feeding running Jevity 1.2 60cc/hr w/no residual noted. HOB elevated. Condom cath draining well to gravity. SL w/o signs of infiltration and flushing well. Side rails up x3, call light within reach, bed alarm engaged, locked, and in lowest position. Will continue POC.
--- NOTE | 2020-10-20 19:09 | NUR ---
NURSE HAND-OFF REPORT: Important Events on Shift:[NA] Patient Status: [Full code] Diet: [Jevity 1.2 ] Pending Orders: [] Pending Results/Labs:[] Pending MD notification:[] Latest Vital Signs: Temperature 97.6 , Pulse 106 , B/P 122 /83 , Respiratory Rate 24 , O2 SAT 99 , Mechanical Ventilator, O2 Flow Rate 45.0 . Vital Sign Comment: [] EKG Rhythm: Sinus Tachycardia Rhythm change?: N MD Notified?: N -Dr. Gabriel linares MD Response: No New Orders Received Latest Schultz Fall Score: 70 Fall Risk: High Risk Safety Measures: Call light Within Reach, Bed Alarm Zone 2, Side Rails Side Rails x3, Bed position Low and Locked. Fall Precautions: Yellow Socks Door Sign Patient Fall Education Report given to [Vladimir RN].
--- NOTE | 2020-10-20 19:28 | General Progress Note ---
Subjective Allergies: Coded Allergies: VANCOMYCIN (Verified Allergy, Severe, hive, 09/28/20) Subjective calm tolerated TF non communicative Objective Last 24 Hour Vital Signs Date Time Temp Pulse Resp B/P (MAP) Pulse Ox O2 Delivery O2 Flow Rate FiO2 10/20/20 18:50 118 35 40 10/20/20 16:00 106 10/20/20 16:00 40 10/20/20 16:00 97.6 95 24 122/83 (96) 99 10/20/20 16:00 Mechanical Ventilator 10/20/20 15:10 92 31 40 10/20/20 14:35 103 26 128/83 100 10/20/20 14:05 94 26 130/86 100 10/20/20 12:00 40 10/20/20 12:00 Mechanical Ventilator 10/20/20 12:00 98.9 90 26 122/86 (98) 100 10/20/20 12:00 86 10/20/20 08:10 81 26 40 10/20/20 08:00 98.3 86 24 129/81 (97) 100 10/20/20 08:00 Mechanical Ventilator 10/20/20 08:00 40 10/20/20 07:50 83 10/20/20 06:53 82 28 111/72 100 10/20/20 06:18 82 28 111/72 100 10/20/20 04:00 Mechanical Ventilator 10/20/20 04:00 89 10/20/20 04:00 40 10/20/20 04:00 97.9 82 28 121/84 (96) 100 10/20/20 01:30 82 28 40 10/20/20 01:20 98 28 111/72 100 10/20/20 00:50 86 31 125/84 99 10/20/20 00:00 40 10/20/20 00:00 Mechanical Ventilator 10/20/20 00:00 86 10/20/20 00:00 97.0 75 24 111/72 (85) 100 10/19/20 21:13 100 31 125/84 99 10/19/20 20:00 40 10/19/20 20:00 Mechanical Ventilator 10/19/20 20:00 98.2 98 31 125/84 (98) 99 10/19/20 20:00 100 Intake and Output 10/19/20 10/20/20 19:00 07:00 Intake Total 720 ml 820 ml Output Total 1150 ml 600 ml Balance -430 ml 220 ml Free Water 100 ml Tube Feeding 720 ml 720 ml Output Urine Total 1150 ml 600 ml # Bowel Movements 4 3 Height (Feet): 6 Height (Inches): 1.00 Weight (Pounds): 148 Objective Thin WM on vent/trach calm, awake Skin: no hematoma or ecchymosis HEENT NCAT supple, (+) trach coarse ronchi RR, slightly tachy abd soft flat ND, (+) GT no edema Assessment/Plan Status: stable Assessment/Plan: Assessment - resp failure - s/p PEG - anemia - OBS/Dementia - sepsis - diarrhea, C Diff (-) - Azotemia, resolved - CHF - malnutrition , low albumin - leukocytosis - hypernatremia Recommendations -Vent care / support - cards and pulm follow up - supportive care - abx - PPI - TF Deborah Cabrera MD Oct 20, 2020 19:28
--- NOTE | 2020-10-20 19:49 | Urology Progress Note ---
Assessment/Plan Status: stable Assessment/Plan: 1. Gross hematuria. 2. Pyuria and possible UTI. 3. Proteinuria. 4. BPH. 5. Urinary retention. 6. Probable neurogenic bladder. 7. Possible sepsis. monitor clinically off abx, per ID flomax and proscar cysto electively andrade removed monitor for voiding and reinsert PRN Subjective Allergies: Coded Allergies: VANCOMYCIN (Verified Allergy, Severe, hive, 09/28/20) Subjective remains on vent, trach 09/27 andrade out, voiding/incontinent, condom cath Objective Last 24 Hour Vital Signs Date Time Temp Pulse Resp B/P (MAP) Pulse Ox O2 Delivery O2 Flow Rate FiO2 10/20/20 18:50 118 35 40 10/20/20 16:00 106 10/20/20 16:00 40 10/20/20 16:00 97.6 95 24 122/83 (96) 99 10/20/20 16:00 Mechanical Ventilator 10/20/20 15:10 92 31 40 10/20/20 14:35 103 26 128/83 100 10/20/20 14:05 94 26 130/86 100 10/20/20 12:00 40 10/20/20 12:00 Mechanical Ventilator 10/20/20 12:00 98.9 90 26 122/86 (98) 100 10/20/20 12:00 86 10/20/20 08:10 81 26 40 10/20/20 08:00 98.3 86 24 129/81 (97) 100 10/20/20 08:00 Mechanical Ventilator 10/20/20 08:00 40 10/20/20 07:50 83 10/20/20 06:53 82 28 111/72 100 10/20/20 06:18 82 28 111/72 100 10/20/20 04:00 Mechanical Ventilator 10/20/20 04:00 89 10/20/20 04:00 40 10/20/20 04:00 97.9 82 28 121/84 (96) 100 10/20/20 01:30 82 28 40 10/20/20 01:20 98 28 111/72 100 10/20/20 00:50 86 31 125/84 99 10/20/20 00:00 40 10/20/20 00:00 Mechanical Ventilator 10/20/20 00:00 86 10/20/20 00:00 97.0 75 24 111/72 (85) 100 10/19/20 21:13 100 31 125/84 99 10/19/20 20:00 40 10/19/20 20:00 Mechanical Ventilator 10/19/20 20:00 98.2 98 31 125/84 (98) 99 10/19/20 20:00 100 Intake and Output 10/19/20 10/20/20 19:00 07:00 Intake Total 720 ml 820 ml Output Total 1150 ml 600 ml Balance -430 ml 220 ml Free Water 100 ml Tube Feeding 720 ml 720 ml Output Urine Total 1150 ml 600 ml # Bowel Movements 4 3 Microbiology Date/Time Source Procedure Growth Status 10/09/20 21:17 Urine,Clean Catch Urine Culture - Final Reena Tropicalis Complete 10/09/20 18:00 Sputum Gram Stain - Final Complete 10/09/20 18:00 Sputum Culture - Final Klebsiella Pneumoniae Usual Respiratory Louisa Complete 09/18/20 18:30 Stool Clostridium difficile Toxin Assay - Final Complete 09/17/20 12:58 Blood Blood Culture - Final NO GROWTH AFTER 5 DAYS Complete 09/10/20 17:15 Rectum VRE Culture - Final Enterococcus Faecalis - Vre Complete Current Medications Medications (Trade) Dose Ordered Sig/Aleksander Route PRN Reason Start Time Stop Time Status Last Admin Dose Admin Acetaminophen (Tylenol) 650 mg Q6H PRN NG pain 1-6 10/08/20 15:30 11/07/20 15:14 Ascorbic Acid (Vitamin C) 250 mg DAILY NG 10/18/20 09:00 11/09/20 08:59 10/20/20 08:57 Bisacodyl (Dulcolax) 10 mg DAILYPRN PRN RECTAL Constipation 10/11/20 12:00 01/09/21 11:59 Diphenhydramine HCl (Benadryl) 25 mg Q6H PRN IVP Itching 09/27/20 12:15 10/27/20 12:14 10/20/20 14:06 Diphenoxylate HCl/ Atropine (Lomotil) 2.5 mg Q4H PRN ORAL Diarrhea 10/19/20 12:15 11/18/20 08:14 Docusate Sodium (Colace) 100 mg TWICE A DAY NG 10/11/20 18:00 11/10/20 17:59 10/20/20 17:18 Famotidine (Pepcid) 20 mg BID GT 10/04/20 09:00 01/02/21 08:59 10/20/20 17:17 Finasteride (Proscar) 5 mg DAILY ORAL 09/13/20 09:00 12/12/20 08:59 10/20/20 08:59 Furosemide (Lasix) 40 mg DAILY GT 10/11/20 09:00 11/10/20 08:59 10/20/20 08:59 Lorazepam (Ativan) 1 mg Q4H PRN ORAL Agitation 10/14/20 22:30 10/21/20 22:29 10/20/20 14:05 Multivitamins (Multivitamins W/ Minerals 15ml Liquid) 15 ml DAILY NG 09/26/20 09:00 10/26/20 08:59 10/20/20 09:04 Spironolactone (Aldactone) 25 mg DAILY GT 10/05/20 09:00 11/04/20 08:59 10/20/20 08:58 Tamsulosin HCl (Flomax) 0.4 mg BEDTIME ORAL 10/11/20 21:00 11/10/20 20:59 10/19/20 21:46 Valproic Acid (Depakene) 1,000 mg BEDTIME GT 10/06/20 21:00 10/31/20 20:59 10/19/20 21:46 Zinc Sulfate (Zinc Sulfate) 220 mg DAILY GT 10/06/20 09:00 01/04/21 08:59 10/20/20 08:57 Height (Feet): 6 Height (Inches): 1.00 Weight (Pounds): 148 Objective exam stable Levi Brunson MD Oct 20, 2020 19:48
[2020-10-20 20:00] VITALS: BP 140/72
[2020-10-20] MEDS: Valproic Acid 250mg/5ml Liquid GT SCH (21:28)
[2020-10-20] MEDS: Tamsulosin 0.4mg cap ORAL SCH (21:28)
[2020-10-20] MEDS: Acetaminophen 650mg/20.3ml NG PRN (21:29)
[2020-10-21] VITALS: BP 119/82
--- NOTE | 2020-10-21 | NUR ---
NURSE NOTES: Eyes close. Respirations even and unlabored. SR on rn cardiac. No significant changes noted. VSS afebrile. In no apparent distress.
--- NOTE | 2020-10-21 04:00 | NUR ---
NURSE NOTES: VSS Afebrile In no apparent distress. Respirations even and unlabored. Trach to vent saturating 97% with current setting. No signs of respiratory distress or SOB noted. Condom cath draining well. SR on cardiac rn. Bed in lowest position, call light within reach. Bed alarm engaged. Continue to POC
[2020-10-21] MEDS: LORazepam 1mg tab ORAL PRN ×2 (04:33→16:13)
--- NOTE | 2020-10-21 07:10 | NUR ---
NURSE NOTES: Received patient from Vladimir Ray RN. Patient is asleep in bed without any acute distress noted. sinus rhythm on the monitor. trach to vent at prescribed settings, tolerating well. Gtube and tube feeding running at prescribed settings, tolerating well. condom cath in place and draining well to gravity. bed to lowest position and locked. call light within easy reach. side rails up x2. Will continue plan of care.
--- NOTE | 2020-10-21 07:38 | NUR ---
HAND-OFF: Report given to Ivan MendozaRN
[2020-10-21 08:00] VITALS: BP 130/90
[2020-10-21] MEDS: Ascorbic Acid 500mg tab NG SCH (08:20)
[2020-10-21] MEDS: Multivitamins W/Minerals 15 ML UDC NG SCH (08:20)
[2020-10-21] MEDS: Furosemide 40mg tab GT SCH (08:20)
[2020-10-21] MEDS: Docusate 100mg/10ml Liq NG SCH ×2 (08:21→18:00)
[2020-10-21] MEDS: Zinc Sulfate 220mg GT SCH (08:21)
[2020-10-21] MEDS: Spironolactone 25mg tab GT SCH (08:21)
--- NOTE | 2020-10-21 09:33 | General Progress Note ---
Subjective Allergies: Coded Allergies: VANCOMYCIN (Verified Allergy, Severe, hive, 09/28/20) Subjective on vent contracted trach placed oxygenation noted in ASTER Objective Last 24 Hour Vital Signs Date Time Temp Pulse Resp B/P (MAP) Pulse Ox O2 Delivery O2 Flow Rate FiO2 10/21/20 08:00 97.0 95 28 130/90 (103) 100 10/21/20 08:00 40 10/21/20 08:00 Mechanical Ventilator 10/21/20 05:03 100 33 119/82 97 10/21/20 04:33 100 33 119/82 97 10/21/20 04:00 Mechanical Ventilator 10/21/20 04:00 40 10/21/20 04:00 99 10/21/20 01:12 100 33 40 10/21/20 00:23 109 28 119/82 97 10/21/20 00:00 97 10/21/20 00:00 Mechanical Ventilator 10/21/20 00:00 99.0 109 28 119/82 (94) 97 10/20/20 23:53 126 28 140/72 98 10/20/20 21:59 99.0 10/20/20 20:00 40 10/20/20 20:00 Mechanical Ventilator 10/20/20 20:00 126 10/20/20 20:00 100.5 126 28 140/72 (94) 98 10/20/20 18:50 118 35 40 10/20/20 16:00 106 10/20/20 16:00 40 10/20/20 16:00 97.6 95 24 122/83 (96) 99 10/20/20 16:00 Mechanical Ventilator 10/20/20 15:10 92 31 40 10/20/20 14:35 103 26 128/83 100 10/20/20 14:05 94 26 130/86 100 10/20/20 12:00 40 10/20/20 12:00 Mechanical Ventilator 10/20/20 12:00 98.9 90 26 122/86 (98) 100 10/20/20 12:00 86 Intake and Output 10/20/20 10/21/20 19:00 07:00 Intake Total 720 ml 700 ml Output Total 800 ml Balance -80 ml 700 ml Free Water 100 ml Tube Feeding 720 ml 600 ml Output Urine Total 800 ml # Bowel Movements 1 Height (Feet): 6 Height (Inches): 1.00 Weight (Pounds): 148 Objective WDWN chronically ill trach in place feeding tube in place reduced breath sounds bilaterally with scattered rhonchi [id number] without MRG NABS nontender no CCE nonfocal poor LOC Assessment/Plan Status: stable Assessment/Plan: IMPRESSION: 1. Azotemia 2. Hypernatremia. 3. Leukocytosis. 4. Possible sepsis. 5. Hypotension. resolved 6. Dementia. 7. Acute on chronic encephalopathy. 8. Chronic respiratory failure 10. trach PLAN monitor labs taper fio2 as able ID noted; monitor follow up on antibiotics monitor oxygen needs vent support full for now off load as able monitor lytes position change monitor imaging for change d/w consultants and nursing doing poorly dc plan to subacute when able impression, plan, and exam edited and reviewed in detail care discussed with Patel Tesfaye MD Oct 21, 2020 09:33
--- NOTE | 2020-10-21 10:23 | General Progress Note ---
Subjective ROS Limited/Unobtainable: No Constitutional: Reports: malaise, weakness HEENT: Reports: no symptoms Cardiovascular: Reports: edema Respiratory: Reports: SOB at rest, sputum Gastrointestinal/Abdominal: Reports: no symptoms Genitourinary: Reports: no symptoms Neurologic/Psychiatric: Reports: pre-existing deficit Endocrine: Reports: no symptoms Hematologic/Lymphatic: Reports: anemia Allergies: Coded Allergies: VANCOMYCIN (Verified Allergy, Severe, hive, 09/28/20) All Systems: reviewed and negative except above Subjective no events. stable on the vent. no fever or chills. no sob. confused. awake. tolerating feeds. doesnt follow commands. Objective Last 24 Hour Vital Signs Date Time Temp Pulse Resp B/P (MAP) Pulse Ox O2 Delivery O2 Flow Rate FiO2 10/21/20 08:00 98 10/21/20 08:00 97.0 95 28 130/90 (103) 100 10/21/20 08:00 40 10/21/20 08:00 Mechanical Ventilator 10/21/20 05:03 100 33 119/82 97 10/21/20 04:33 100 33 119/82 97 10/21/20 04:00 Mechanical Ventilator 10/21/20 04:00 40 10/21/20 04:00 99 10/21/20 01:12 100 33 40 10/21/20 00:23 109 28 119/82 97 10/21/20 00:00 97 10/21/20 00:00 Mechanical Ventilator 10/21/20 00:00 99.0 109 28 119/82 (94) 97 10/20/20 23:53 126 28 140/72 98 10/20/20 21:59 99.0 10/20/20 20:00 40 10/20/20 20:00 Mechanical Ventilator 10/20/20 20:00 126 10/20/20 20:00 100.5 126 28 140/72 (94) 98 10/20/20 18:50 118 35 40 10/20/20 16:00 106 10/20/20 16:00 40 10/20/20 16:00 97.6 95 24 122/83 (96) 99 10/20/20 16:00 Mechanical Ventilator 10/20/20 15:10 92 31 40 10/20/20 14:35 103 26 128/83 100 10/20/20 14:05 94 26 130/86 100 10/20/20 12:00 40 10/20/20 12:00 Mechanical Ventilator 10/20/20 12:00 98.9 90 26 122/86 (98) 100 10/20/20 12:00 86 Intake and Output 10/20/20 10/21/20 19:00 07:00 Intake Total 720 ml 700 ml Output Total 800 ml Balance -80 ml 700 ml Free Water 100 ml Tube Feeding 720 ml 600 ml Output Urine Total 800 ml # Bowel Movements 1 Height (Feet): 6 Height (Inches): 1.00 Weight (Pounds): 148 Objective General Appearance: WD/WN, confused. EENT: normal ENT inspection. +trach, dressing clean Neck: normal alignment, supple Cardiovascular: normal rate, regular rhythm Respiratory/Chest: rhonchi - bilaterally. 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 grossly normal, responsive, disoriented Lymphatic: normal anterior cervical (L), normal anterior cervical (R), normal posterior cervical (L), normal posterior cervical (R) Assessment/Plan Problem List: (1) PNA (pneumonia) ICD Codes: J18.9 - Pneumonia, unspecified organism SNOMED: 706343917 (2) UTI (urinary tract infection) ICD Codes: N39.0 - Urinary tract infection, site not specified SNOMED: 39693928 (3) Fever ICD Codes: R50.9 - Fever, unspecified SNOMED: 167018913 Qualifiers: Qualified Codes: R50.9 - Fever, unspecified (4) Decubitus skin ulcer ICD Codes: L89.90 - Pressure ulcer of unspecified site, unspecified stage SNOMED: 026063150 (5) Malnutrition ICD Codes: E46 - Unspecified protein-calorie malnutrition SNOMED: 98047622 (6) Severe sepsis ICD Codes: A41.9 - Sepsis, unspecified organism; R65.20 - Severe sepsis without septic shock SNOMED: 09755201 (7) Hematuria ICD Codes: R31.9 - Hematuria, unspecified SNOMED: 79485941 Status: stable Assessment/Plan: cont vent support resp care tube feeds monitor residuals skin care turn q2 cont bp rx anxiolytics as needed sz rx await subacute bed Jason Layne MD Oct 21, 2020 10:23
[2020-10-21 12:00] VITALS: BP 115/84
--- NOTE | 2020-10-21 12:12 | Urology Progress Note ---
Assessment/Plan Status: stable Assessment/Plan: 1. Gross hematuria. 2. Pyuria and possible UTI. 3. Proteinuria. 4. BPH. 5. Urinary retention. 6. Probable neurogenic bladder. 7. Possible sepsis. monitor clinically off abx, per ID flomax and proscar cysto electively andrade removed monitor for voiding and reinsert PRN Subjective Allergies: Coded Allergies: VANCOMYCIN (Verified Allergy, Severe, hive, 09/28/20) Subjective remains on vent, trach 09/27 andrade out, voiding/incontinent, condom cath Objective Last 24 Hour Vital Signs Date Time Temp Pulse Resp B/P (MAP) Pulse Ox O2 Delivery O2 Flow Rate FiO2 10/21/20 08:00 98 10/21/20 08:00 97.0 95 28 130/90 (103) 100 10/21/20 08:00 40 10/21/20 08:00 Mechanical Ventilator 10/21/20 05:03 100 33 119/82 97 10/21/20 04:33 100 33 119/82 97 10/21/20 04:00 Mechanical Ventilator 10/21/20 04:00 40 10/21/20 04:00 99 10/21/20 01:12 100 33 40 10/21/20 00:23 109 28 119/82 97 10/21/20 00:00 97 10/21/20 00:00 Mechanical Ventilator 10/21/20 00:00 99.0 109 28 119/82 (94) 97 10/20/20 23:53 126 28 140/72 98 10/20/20 21:59 99.0 10/20/20 20:00 40 10/20/20 20:00 Mechanical Ventilator 10/20/20 20:00 126 10/20/20 20:00 100.5 126 28 140/72 (94) 98 10/20/20 18:50 118 35 40 10/20/20 16:00 106 10/20/20 16:00 40 10/20/20 16:00 97.6 95 24 122/83 (96) 99 10/20/20 16:00 Mechanical Ventilator 10/20/20 15:10 92 31 40 10/20/20 14:35 103 26 128/83 100 10/20/20 14:05 94 26 130/86 100 Intake and Output 10/20/20 10/21/20 19:00 07:00 Intake Total 720 ml 700 ml Output Total 800 ml Balance -80 ml 700 ml Free Water 100 ml Tube Feeding 720 ml 600 ml Output Urine Total 800 ml # Bowel Movements 1 Microbiology Date/Time Source Procedure Growth Status 10/09/20 21:17 Urine,Clean Catch Urine Culture - Final Reena Tropicalis Complete 10/09/20 18:00 Sputum Gram Stain - Final Complete 10/09/20 18:00 Sputum Culture - Final Klebsiella Pneumoniae Usual Respiratory Louisa Complete 09/18/20 18:30 Stool Clostridium difficile Toxin Assay - Final Complete 09/17/20 12:58 Blood Blood Culture - Final NO GROWTH AFTER 5 DAYS Complete 09/10/20 17:15 Rectum VRE Culture - Final Enterococcus Faecalis - Vre Complete Current Medications Medications (Trade) Dose Ordered Sig/Aleksander Route PRN Reason Start Time Stop Time Status Last Admin Dose Admin Acetaminophen (Tylenol) 650 mg Q6H PRN NG pain 1-6 10/08/20 15:30 11/07/20 15:14 10/20/20 21:29 Ascorbic Acid (Vitamin C) 250 mg DAILY NG 10/18/20 09:00 11/09/20 08:59 10/21/20 08:20 Bisacodyl (Dulcolax) 10 mg DAILYPRN PRN RECTAL Constipation 10/11/20 12:00 01/09/21 11:59 10/20/20 21:28 Diphenhydramine HCl (Benadryl) 25 mg Q6H PRN IVP Itching 09/27/20 12:15 10/27/20 12:14 10/20/20 21:30 Diphenoxylate HCl/ Atropine (Lomotil) 2.5 mg Q4H PRN ORAL Diarrhea 10/19/20 12:15 11/18/20 08:14 Docusate Sodium (Colace) 100 mg TWICE A DAY NG 10/11/20 18:00 11/10/20 17:59 10/21/20 08:21 Famotidine (Pepcid) 20 mg BID GT 10/04/20 09:00 01/02/21 08:59 10/21/20 08:21 Finasteride (Proscar) 5 mg DAILY ORAL 09/13/20 09:00 12/12/20 08:59 10/21/20 08:20 Furosemide (Lasix) 40 mg DAILY GT 10/11/20 09:00 11/10/20 08:59 10/21/20 08:20 Lorazepam (Ativan) 1 mg Q4H PRN ORAL Agitation 10/14/20 22:30 10/21/20 22:29 10/21/20 04:33 Multivitamins (Multivitamins W/ Minerals 15ml Liquid) 15 ml DAILY NG 09/26/20 09:00 10/26/20 08:59 10/21/20 08:20 Spironolactone (Aldactone) 25 mg DAILY GT 10/05/20 09:00 11/04/20 08:59 10/21/20 08:21 Tamsulosin HCl (Flomax) 0.4 mg BEDTIME ORAL 10/11/20 21:00 11/10/20 20:59 10/20/20 21:28 Valproic Acid (Depakene) 1,000 mg BEDTIME GT 10/06/20 21:00 10/31/20 20:59 10/20/20 21:28 Zinc Sulfate (Zinc Sulfate) 220 mg DAILY GT 10/06/20 09:00 01/04/21 08:59 10/21/20 08:21 Height (Feet): 6 Height (Inches): 1.00 Weight (Pounds): 148 Objective exam stable urine dark sky Levi Brunson MD Oct 21, 2020 12:12
--- NOTE | 2020-10-21 12:29 | Surgery Progress Note ---
Surgery Progress Note Subjective Procedure Performed tracheostomy Additional Comments doing well tolerating diet no n/v labs noted micro reviewed Objective Last 24 Hour Vital Signs Date Time Temp Pulse Resp B/P (MAP) Pulse Ox O2 Delivery O2 Flow Rate FiO2 10/21/20 12:00 Mechanical Ventilator 10/21/20 12:00 97.9 93 31 115/84 (94) 100 10/21/20 12:00 40 10/21/20 08:00 98 10/21/20 08:00 97.0 95 28 130/90 (103) 100 10/21/20 08:00 40 10/21/20 08:00 Mechanical Ventilator 10/21/20 05:03 100 33 119/82 97 10/21/20 04:33 100 33 119/82 97 10/21/20 04:00 Mechanical Ventilator 10/21/20 04:00 40 10/21/20 04:00 99 10/21/20 01:12 100 33 40 10/21/20 00:23 109 28 119/82 97 10/21/20 00:00 97 10/21/20 00:00 Mechanical Ventilator 10/21/20 00:00 99.0 109 28 119/82 (94) 97 10/20/20 23:53 126 28 140/72 98 10/20/20 21:59 99.0 10/20/20 20:00 40 10/20/20 20:00 Mechanical Ventilator 10/20/20 20:00 126 10/20/20 20:00 100.5 126 28 140/72 (94) 98 10/20/20 18:50 118 35 40 10/20/20 16:00 106 10/20/20 16:00 40 10/20/20 16:00 97.6 95 24 122/83 (96) 99 10/20/20 16:00 Mechanical Ventilator 10/20/20 15:10 92 31 40 10/20/20 14:35 103 26 128/83 100 10/20/20 14:05 94 26 130/86 100 I&O Intake and Output 10/20/20 10/21/20 19:00 07:00 Intake Total 720 ml 700 ml Output Total 800 ml Balance -80 ml 700 ml Free Water 100 ml Tube Feeding 720 ml 600 ml Output Urine Total 800 ml # Bowel Movements 1 Dressing: saturated Cardiovascular: RSR Respiratory: decreased breath sounds Abdomen: soft, non-tender, present bowel sounds Extremities: no tenderness, no cyanosis Plan Problems: (1) Fever Assessment & Plan: maybe developing pneumonia cont abx pulm input thank you (2) Decubitus skin ulcer Assessment & Plan: Patient identified on admission to have multiple scabs on the left arm. mild open scabs with eschar. no drainage. no significant cellulitis. bruising no bilateral extremities noted. no signs of abuse. likely from agitation Sacral coccygeal noted to have a DTI 4.3X2.5CM. which is dark purple . RECOMMEND-CLEAN WITH SALINE, PAT DRY AND APPLY CALAZINE. COVER WITH OPTIFOAM DRESSING. REPLACE EVERY 3 DAYS OR NEEDED LEFT ISCHIUM- STAGE I PRESSURE ULCER MEASURES 4.5X1.7CM. NON-BLANCHABLE ERYTHEMA. RECOMMEND- APPLY CALAZINE AND COVER WITH OPTIFOAM DRESSING. REPLACE EVERY 7 DAYS. 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 Roman is a 70 year old male [place] [facility] [place] 14:00 due to fever. He was found to be hypotensive 91/55 (67), Temp: 100.0, leukocytosis 20.8k and subsequently transferred to ICU for septic shock. The blood culture is reportedly positive for gram positive cocci. NG tube was placed, KUB confirmed the placement to day. Pt is clinically stable with leukocytosis 20.1, improved BUN and creatine, stable hemodynamic without vasopressor. Findings: Mr. Roman is disoriented. He does ot follow commands at this time. Oral cavity is noted to be dried blood concretion likely from NG trauma. No active bleeding site is seen. Due to his level f alertness, already NG tube is in placed, PO trial was not done at this time. Transferred out ICU last night. He is non on tele. Issues: multiple wounds, s.p balaji/nasal/pharyngeal bleeding with blood culture Gram positive cocci leukocytosis trending down from 20k-20k-16k BUN/Creatine trending down from 93/1.9-79/1.3-54/1.1 Temp: 98.1~98.7, Pulse: 62~72, BP: 105/67~120/48, SPO2 98~100% on 2 liter S: Oral cavity is better condition comparison to yesterday. The mucosa is severely erythema without active bleeding. Limited level of alertness for direct therapy. NG in placed O: 1. Laryngeal palpation to trigger spontaneous cough and swallow: Pt triggered cough with laryngeal palpation. Approximately 5~10 seconds after coughing, he triggered swallow. based on this observation, he presents with copious secretion in pharynx and larynx. He continued to have poor secretion management at laryngeal level at this time. NO PO trial was given due to poor secretion at the level of air way with low level of alertness. A: 1. Probable aspiration of his own secretion with poor ability to cough and swallow 2. Dysphagia P: 1. NPO for now 2. Observe his secretion, and level of alertness for PO readiness. DAILY ESTIMATED NEEDS: Needs based on Wound, underweight/ 55kg 30-35 kcals/kg 2050-4547 total kcals 1.25-2 g protein/kg 69-110 g total protein 25-30 mL/kg 0287-5785 total fluid mLs NUTRITION DIAGNOSIS: Increased kcal/prot needs R/T wound healing and underweight status as evidenced by pt admitted w/ wounds including DTI 2 coccyx and stage 1 @ lt ischium, pt @ 73% IBW w/ low BMI per guidelines, s/p NGT insertion, on NGT feeds. CURRENT TF:Jevity 1.2 @ 50ml/hr x 24 hrs ENTERAL NUTRITION RECOMMENDATIONS: Jevity 1.2 @ 60ml/hr x 24 hrs to provide 1440ml, 1728kcal, 80g prot, 1160ml free water * As medically appropriate, increase goal rate to 60ml/hr x 24 hrs to meet 100% est kcal/prot needs * HOB over 30 degrees/ without IVF, H2O flush of 100ml q 8hrs ADDITIONAL RECOMMENDATIONS: * Calibrated daily bedscale wt Per SNF: HT=70" * Wound healing: TF rec @ goal will provide 100% RDI add Vit C 250mg QD, ZnSO4 220mg QD x 10days, Davidson BID via NGT * Monitor BGs, need for NISS w/ TF * Monitor lytes, replete as needed- high risk for refeeding syndrome -> check f/up phos and mag (4) Severe sepsis Assessment & Plan: will likely need trach and peg. patient needs protected airway and nutrition full code no family and unable to consent medically necessary. will plan soon (5) Open upper arm wound (6) Hematuria Assessment & Plan: as per urology Aubrey Gutierrez Oct 21, 2020 12:29
--- NOTE | 2020-10-21 15:30 | NUR ---
NURSE NOTES: Noted patient with hematuria. contacted Dr. Brunson. aware and ordered UA and bladder scan, call back if residual greater than 250. carried out orders. bladder scan showed 145 residual.
[2020-10-21 16:00] VITALS: BP 130/90
--- NOTE | 2020-10-21 16:01 | General Progress Note ---
Subjective Allergies: Coded Allergies: VANCOMYCIN (Verified Allergy, Severe, hive, 09/28/20) Subjective calm tolerated TF non communicative Objective Last 24 Hour Vital Signs Date Time Temp Pulse Resp B/P (MAP) Pulse Ox O2 Delivery O2 Flow Rate FiO2 10/21/20 12:00 Mechanical Ventilator 10/21/20 12:00 97.9 93 31 115/84 (94) 100 10/21/20 12:00 40 10/21/20 12:00 93 10/21/20 08:00 98 10/21/20 08:00 97.0 95 28 130/90 (103) 100 10/21/20 08:00 40 10/21/20 08:00 Mechanical Ventilator 10/21/20 05:03 100 33 119/82 97 10/21/20 04:33 100 33 119/82 97 10/21/20 04:00 Mechanical Ventilator 10/21/20 04:00 40 10/21/20 04:00 99 10/21/20 01:12 100 33 40 10/21/20 00:23 109 28 119/82 97 10/21/20 00:00 97 10/21/20 00:00 Mechanical Ventilator 10/21/20 00:00 99.0 109 28 119/82 (94) 97 10/20/20 23:53 126 28 140/72 98 10/20/20 21:59 99.0 10/20/20 20:00 40 10/20/20 20:00 Mechanical Ventilator 10/20/20 20:00 126 10/20/20 20:00 100.5 126 28 140/72 (94) 98 10/20/20 18:50 118 35 40 Intake and Output 10/20/20 10/21/20 19:00 07:00 Intake Total 720 ml 700 ml Output Total 800 ml Balance -80 ml 700 ml Free Water 100 ml Tube Feeding 720 ml 600 ml Output Urine Total 800 ml # Bowel Movements 1 Laboratory Tests 10/21/20 15:52: Urine Color [Pending], Urine Appearance [Pending], Urine pH [Pending], Urine Specific [place] [Pending], Urine Protein [Pending], Urine Glucose (UA) [Pending], Urine Ketones [Pending], Urine Blood [Pending], Urine Nitrite [Pending], Urine Bilirubin [Pending], Urine Urobilinogen [Pending], Urine Leukocyte Esterase [Pending], Urine RBC [Pending], Urine WBC [Pending], Urine Sq uamous Epithelial Cells [Pending], Urine Bacteria [Pending] Height (Feet): 6 Height (Inches): 1.00 Weight (Pounds): 148 Objective Thin WM on vent/trach calm, awake Skin: no hematoma or ecchymosis HEENT NCAT supple, (+) trach coarse ronchi RR, slightly tachy abd soft flat ND, (+) GT no edema Assessment/Plan Status: stable Assessment/Plan: Assessment - resp failure - s/p PEG - anemia - OBS/Dementia - sepsis - diarrhea, C Diff (-) - Azotemia, resolved - CHF - malnutrition , low albumin - leukocytosis - hypernatremia Recommendations -Vent care / support - cards and pulm follow up - supportive care - abx - PPI - TF Deborah Cabrera MD Oct 21, 2020 16:01
[2020-10-21 16:08] LABS: APPEARANCE,URINE VERY CLOUDY; BILIRUBIN, URINE NEGATIVE (NEGATIVE); COLOR,URINE ORANGE; GLUCOSE, URINE (UA) NEGATIVE (NEGATIVE); KETONES,URINE NEGATIVE (NEGATIVE); LEUKOCYTE ESTERASE ,URINE 2+ (NEGATIVE); NITRITE,URINE POSITIVE (NEGATIVE); PH,URINE 6 (4.5-8.0); PROTEIN,URINE 3+ (NEGATIVE); UROBILINOGEN,URINE 1 MG/DL (0.0-1.0)
--- NOTE | 2020-10-21 19:02 | NUR ---
NURSE HAND-OFF REPORT: Important Events on Shift: hematuria Patient Status: FULL CODE Diet: Jevity 1.2 @60ml/hr Pending Orders: [] Pending Results/Labs:[] Pending MD notification:[] Latest Vital Signs: Temperature 98.4 , Pulse 120 , B/P 130 /90 , Respiratory Rate 28 , O2 SAT 100 , Mechanical Ventilator, O2 Flow Rate 45.0 . Vital Sign Comment: stable EKG Rhythm: Sinus Tachycardia Rhythm change?: N MD Notified?: N -Dr. Gabriel linares MD Response: No New Orders Received Latest Schultz Fall Score: 70 Fall Risk: High Risk Safety Measures: Call light Within Reach, Bed Alarm Zone 2, Side Rails Side Rails x3, Bed position Low and Locked. Fall Precautions: Yellow Socks Door Sign Patient Fall Education Report given to Vladimir Ray RN.
--- NOTE | 2020-10-21 19:15 | NUR ---
NURSE NOTES: Received report from Ivan Mendoza RN Obtunded. Occasionally opens eyes. In no apparent distress. Tolerating GT feeding well w/no residual noted. HOB elevated 45 degrees. Respirations even and unlabored. Trach to vent saturating well with vent current setting. No signs of respiratory distress or SOB noted. Condom cath draining well. ST on school lunch monitor. Bed in lowest position, call light within reach. Bed alarm engaged. Continue to POC
[2020-10-21 20:00] VITALS: BP 110/71
[2020-10-21] MEDS: DiphenhydrAMINE 50mg/ml Inj IVP PRN (22:57)
[2020-10-21] MEDS: Valproic Acid 250mg/5ml Liquid GT SCH (22:58)
[2020-10-21] MEDS: Tamsulosin 0.4mg cap ORAL SCH (22:58)
--- NOTE | 2020-10-21 23:00 | NUR ---
NURSE NOTES: Restless at times otherwise stable. Respirations even and unlabored. VSS stable. Afebrile. Oral care done. Saturating well with current vent setting. No distress noted.
[2020-10-22] VITALS: BP 117/82
[2020-10-22] MEDS: LORazepam 1mg tab ORAL PRN ×2 (00:17→08:37)
[2020-10-22 04:00] VITALS: BP 122/84
--- NOTE | 2020-10-22 04:00 | NUR ---
NURSE NOTES: Not as restless this morning. Respirations even and unlabored. SR on court recording monitor. Tolerating GT feeding well. VSS stable. Afebrile. Saturating well with current vent setting. No distress noted.
--- NOTE | 2020-10-22 07:15 | NUR ---
NURSE NOTES: Received patient report from ARTEMIO Gilbert. Patient is AOx1. No pain or discomfort noted at this time. Patient is trach to vent Shiley 8 AC 12 VT 450 FiO2 40% PEEP 7, breathing is even and unlabored with no signs of respiratory distress. Patient with GT, patent and intact. Patient has L AC 22G patent and intact. Bed in lowest position, locked with side rails x2 up. Call light within reach.
--- NOTE | 2020-10-22 07:31 | NUR ---
HAND-OFF: Report given to Vira PerezRN
[2020-10-22 08:00] VITALS: BP 122/83
[2020-10-22] MEDS: Zinc Sulfate 220mg GT SCH (08:37)
[2020-10-22] MEDS: Docusate 100mg/10ml Liq NG SCH ×2 (08:37→17:05)
[2020-10-22] MEDS: Ascorbic Acid 500mg tab NG SCH (08:37)
[2020-10-22] MEDS: Furosemide 40mg tab GT SCH (08:37)
[2020-10-22] MEDS: Spironolactone 25mg tab GT SCH (08:37)
[2020-10-22] MEDS: Multivitamins W/Minerals 15 ML UDC NG SCH (08:38)
[2020-10-22] MEDS: DiphenhydrAMINE 50mg/ml Inj IVP PRN ×2 (08:38→22:06)
--- NOTE | 2020-10-22 08:41 | Urology Progress Note ---
Assessment/Plan Status: stable Assessment/Plan: 1. Gross hematuria. 2. Pyuria and possible UTI. 3. Proteinuria. 4. BPH. 5. Urinary retention. 6. Probable neurogenic bladder. 7. Possible sepsis. monitor clinically off abx, may need to resume, d/w ID flomax and proscar cysto electively andrade removed monitor for voiding and reinsert PRN Subjective Allergies: Coded Allergies: VANCOMYCIN (Verified Allergy, Severe, hive, 09/28/20) Subjective remains on vent, trach 09/27 andrade out, voiding/incontinent, condom cath Objective Last 24 Hour Vital Signs Date Time Temp Pulse Resp B/P (MAP) Pulse Ox O2 Delivery O2 Flow Rate FiO2 10/22/20 08:37 100 28 122/83 100 10/22/20 08:00 98.2 100 28 122/83 (96) 100 10/22/20 04:00 100 10/22/20 04:00 40 10/22/20 04:00 98.2 100 32 122/84 (97) 100 10/22/20 04:00 Mechanical Ventilator 10/22/20 00:47 99 34 40 10/22/20 00:17 112 31 117/82 100 10/22/20 00:00 40 10/22/20 00:00 99.1 112 28 117/82 (94) 100 10/22/20 00:00 Mechanical Ventilator 10/22/20 00:00 106 10/21/20 20:04 40 10/21/20 20:00 Mechanical Ventilator 10/21/20 20:00 98.1 110 28 110/71 (84) 98 10/21/20 20:00 110 10/21/20 18:50 113 37 40 10/21/20 18:10 98.4 10/21/20 16:43 120 28 130/90 100 10/21/20 16:13 95 28 130/90 100 10/21/20 16:00 Mechanical Ventilator 10/21/20 16:00 97.0 95 28 130/90 (103) 100 10/21/20 16:00 112 10/21/20 16:00 40 10/21/20 13:05 121 35 100 Mechanical Ventilator 40 10/21/20 13:05 121 35 40 10/21/20 12:00 Mechanical Ventilator 10/21/20 12:00 97.9 93 31 115/84 (94) 100 10/21/20 12:00 40 10/21/20 12:00 93 Intake and Output 10/21/20 10/22/20 19:00 07:00 Intake Total 120 ml 920 ml Output Total 800 ml 900 ml Balance -680 ml 20 ml Free Water 200 ml Tube Feeding 120 ml 720 ml Output Urine Total 800 ml 900 ml Microbiology Date/Time Source Procedure Growth Status 10/21/20 15:52 Urine,Clean Catch Urine Culture - Preliminary Gram Negative Scotty Resulted 10/09/20 18:00 Sputum Gram Stain - Final Complete 10/09/20 18:00 Sputum Culture - Final Klebsiella Pneumoniae Usual Respiratory Louisa Complete 09/18/20 18:30 Stool Clostridium difficile Toxin Assay - Final Complete 09/17/20 12:58 Blood Blood Culture - Final NO GROWTH AFTER 5 DAYS Complete 09/10/20 17:15 Rectum VRE Culture - Final Enterococcus Faecalis - Vre Complete Current Medications Medications (Trade) Dose Ordered Sig/Aleksander Route PRN Reason Start Time Stop Time Status Last Admin Dose Admin Acetaminophen (Tylenol) 650 mg Q6H PRN NG pain 1-6 10/08/20 15:30 11/07/20 15:14 10/20/20 21:29 Acetaminophen (Tylenol) 650 mg Q6H PRN ORAL Temp >100.5 10/21/20 17:30 11/20/20 17:29 10/21/20 17:40 Ascorbic Acid (Vitamin C) 250 mg DAILY NG 10/18/20 09:00 11/09/20 08:59 10/22/20 08:37 Bisacodyl (Dulcolax) 10 mg DAILYPRN PRN RECTAL Constipation 10/11/20 12:00 01/09/21 11:59 10/20/20 21:28 Diphenhydramine HCl (Benadryl) 25 mg Q6H PRN IVP Itching 09/27/20 12:15 10/27/20 12:14 10/22/20 08:38 Diphenoxylate HCl/ Atropine (Lomotil) 2.5 mg Q4H PRN ORAL Diarrhea 10/19/20 12:15 11/18/20 08:14 Docusate Sodium (Colace) 100 mg TWICE A DAY NG 10/11/20 18:00 11/10/20 17:59 10/22/20 08:37 Famotidine (Pepcid) 20 mg BID GT 10/04/20 09:00 01/02/21 08:59 10/22/20 08:37 Finasteride (Proscar) 5 mg DAILY ORAL 09/13/20 09:00 12/12/20 08:59 10/22/20 08:37 Furosemide (Lasix) 40 mg DAILY GT 10/11/20 09:00 11/10/20 08:59 10/22/20 08:37 Lorazepam (Ativan) 1 mg Q4H PRN ORAL For Anxiety 10/22/20 00:15 10/29/20 00:14 10/22/20 08:37 Multivitamins (Multivitamins W/ Minerals 15ml Liquid) 15 ml DAILY NG 09/26/20 09:00 10/26/20 08:59 10/22/20 08:38 Spironolactone (Aldactone) 25 mg DAILY GT 10/05/20 09:00 11/04/20 08:59 10/22/20 08:37 Tamsulosin HCl (Flomax) 0.4 mg BEDTIME ORAL 10/11/20 21:00 11/10/20 20:59 10/21/20 22:58 Valproic Acid (Depakene) 1,000 mg BEDTIME GT 10/06/20 21:00 10/31/20 20:59 10/21/20 22:58 Zinc Sulfate (Zinc Sulfate) 220 mg DAILY GT 10/06/20 09:00 01/04/21 08:59 10/22/20 08:37 Laboratory Tests 10/21/20 15:52: Urine Color [place], Urine Appearance Very cloudy, Urine pH 6, Urine Specific [place] 1.010, Urine Protein 3+H, Urine Glucose (UA) Negative, Urine Ketones Negative, Urine Blood 4+H, Urine Nitrite PositiveH, Urine Bilirubin Negative, Urine Urobilinogen 1H, Urine Leukocyte Esterase 2+H, Urine RBC TntcH, Urine WBC 5-10H, Urine Squamous Epithelial Cells Occasional, Urine Bacteria ManyH Height (Feet): 6 Height (Inches): 1.00 Weight (Pounds): 148 Objective exam stable urine dark sky Levi Brunson MD Oct 22, 2020 08:41
[2020-10-22 12:00] VITALS: BP 118/73
--- NOTE | 2020-10-22 13:17 | Surgery Progress Note ---
Surgery Progress Note Subjective Procedure Performed tracheostomy Additional Comments no acute events comfortable tolerating trach okay Objective Last 24 Hour Vital Signs Date Time Temp Pulse Resp B/P (MAP) Pulse Ox O2 Delivery O2 Flow Rate FiO2 10/22/20 11:40 103 33 40 10/22/20 09:07 95 27 118/78 99 10/22/20 08:37 100 28 122/83 100 10/22/20 08:00 40 10/22/20 08:00 104 10/22/20 08:00 Mechanical Ventilator 10/22/20 08:00 98.2 100 28 122/83 (96) 100 10/22/20 07:25 100 35 40 10/22/20 04:00 100 10/22/20 04:00 40 10/22/20 04:00 98.2 100 32 122/84 (97) 100 10/22/20 04:00 Mechanical Ventilator 10/22/20 00:47 99 34 40 10/22/20 00:17 112 31 117/82 100 10/22/20 00:00 40 10/22/20 00:00 99.1 112 28 117/82 (94) 100 10/22/20 00:00 Mechanical Ventilator 10/22/20 00:00 106 10/21/20 20:04 40 10/21/20 20:00 Mechanical Ventilator 10/21/20 20:00 98.1 110 28 110/71 (84) 98 10/21/20 20:00 110 10/21/20 18:50 113 37 40 10/21/20 18:10 98.4 10/21/20 16:43 120 28 130/90 100 10/21/20 16:13 95 28 130/90 100 10/21/20 16:00 Mechanical Ventilator 10/21/20 16:00 97.0 95 28 130/90 (103) 100 10/21/20 16:00 112 10/21/20 16:00 40 I&O Intake and Output 10/21/20 10/22/20 19:00 07:00 Intake Total 120 ml 920 ml Output Total 800 ml 900 ml Balance -680 ml 20 ml Free Water 200 ml Tube Feeding 120 ml 720 ml Output Urine Total 800 ml 900 ml Dressing: saturated Cardiovascular: RSR Respiratory: decreased breath sounds Abdomen: soft, non-tender, present bowel sounds Extremities: no tenderness, no cyanosis Laboratory Tests Test 10/21/20 15:52 Urine Color [place] Urine Appearance Very cloudy Urine pH 6 (4.5-8.0) Urine Specific [place] 1.010 (1.005-1.035) Urine Protein 3+ (NEGATIVE) H Urine Glucose (UA) Negative (NEGATIVE) Urine Ketones Negative (NEGATIVE) Urine Blood 4+ (NEGATIVE) H Urine Nitrite Positive (NEGATIVE) H Urine Bilirubin Negative (NEGATIVE) Urine Urobilinogen 1 MG/DL (0.0-1.0) H Urine Leukocyte Esterase 2+ (NEGATIVE) H Urine RBC Tntc /HPF (0 - 0) H Urine WBC 5-10 /HPF (0 - 0) H Urine Squamous Epithelial Cells Occasional /LPF Urine Bacteria Many /HPF (NONE) H Plan Problems: (1) Fever Assessment & Plan: maybe developing pneumonia cont abx pulm input thank you (2) Decubitus skin ulcer Assessment & Plan: Patient identified on admission to have multiple scabs on the left arm. mild open scabs with eschar. no drainage. no significant cellulitis. bruising no bilateral extremities noted. no signs of abuse. likely from agitation Sacral coccygeal noted to have a DTI 4.3X2.5CM. which is dark purple . RECOMMEND-CLEAN WITH SALINE, PAT DRY AND APPLY CALAZINE. COVER WITH OPTIFOAM DRESSING. REPLACE EVERY 3 DAYS OR NEEDED LEFT ISCHIUM- STAGE I PRESSURE ULCER MEASURES 4.5X1.7CM. NON-BLANCHABLE ERYTHEMA. RECOMMEND- APPLY CALAZINE AND COVER WITH OPTIFOAM DRESSING. REPLACE EVERY 7 DAYS. Turn q2h off load pressure with pillow off load heels nutritional optimization NEWS LIBRARIAN eval will follow with recs thank you (3) Malnutrition Assessment & Plan: Mr. Roman is a 70 year old male BIBA to ED of [facility] on 09/10/2020 around 14:00 due to fever. He was found to be hypotensive 91/55 (67), Temp: 100.0, leukocytosis 20.8k and subsequently transferred to ICU for septic shock. The blood culture is reportedly positive for gram positive cocci. NG tube was placed, KUB confirmed the placement to day. Pt is clinically stable with leukocytosis 20.1, improved BUN and creatine, stable hemodynamic without va sopressor. Findings: Mr. Roman is disoriented. He does ot follow commands at this time. Oral cavity is noted to be dried blood concretion likely from NG trauma. No active bleeding site is seen. Due to his level f alertness, already NG tube is in placed, PO trial was not done at this time. Transferred out ICU last night. He is non on tele. Issues: multiple wounds, s.p balaji/nasal/pharyngeal bleeding with blood culture Gram positive cocci leukocytosis trending down from 20k-20k-16k BUN/Creatine trending down from 93/1.9-79/1.3-54/1.1 Temp: 98.1~98.7, Pulse: 62~72, BP: 105/67~120/48, SPO2 98~100% on 2 liter S: Oral cavity is better condition comparison to yesterday. The mucosa is severely erythema without active bleeding. Limited level of alertness for direct therapy. NG in placed O: 1. Laryngeal palpation to trigger spontaneous cough and swallow: Pt triggered cough with laryngeal palpation. Approximately 5~10 seconds after coughing, he triggered swallow. based on this observation, he presents with copious secretion in pharynx and larynx. He continued to have poor secretion management at laryngeal level at this time. NO PO trial was given due to poor secretion at the level of air way with low level of alertness. A: 1. Probable aspiration of his own secretion with poor ability to cough and swallow 2. Dysphagia P: 1. NPO for now 2. Observe his secretion, and level of alertness for PO readiness. DAILY ESTIMATED NEEDS: Needs based on Wound, underweight/ 55kg 30-35 kcals/kg 8494-3644 total kcals 1.25-2 g protein/kg 69-110 g total protein 25-30 mL/kg 3679-8873 total fluid mLs NUTRITION DIAGNOSIS: Increased kcal/prot needs R/T wound healing and underweight status as evidenced by pt admitted w/ wounds including DTI 2 coccyx and stage 1 @ lt ischium, pt @ 73% IBW w/ low BMI per guidelines, s/p NGT insertion, on NGT feeds. CURRENT TF:Jevity 1.2 @ 50ml/hr x 24 hrs ENTERAL NUTRITION RECOMMENDATIONS: Jevity 1.2 @ 60ml/hr x 24 hrs to provide 1440ml, 1728kcal, 80g prot, 1160ml free water * As medically appropriate, increase goal rate to 60ml/hr x 24 hrs to meet 100% est kcal/prot needs * HOB over 30 degrees/ without IVF, H2O flush of 100ml q 8hrs ADDITIONAL RECOMMENDATIONS: * Calibrated daily bedscale wt Per SNF: HT=70" * Wound healing: TF rec @ goal will provide 100% RDI add Vit C 250mg QD, ZnSO4 220mg QD x 10days, [place] BID via NGT * Monitor BGs, need for NISS w/ TF * Monitor lytes, replete as needed- high risk for refeeding syndrome -> check f/up phos and mag (4) Severe sepsis Assessment & Plan: will likely need trach and peg. patient needs protected airway and nutrition full code no family and unable to consent medically necessary. will plan soon (5) Open upper arm wound (6) Hematuria Assessment & Plan: as per urology Aubrey Gutierrez Oct 22, 2020 13:17
--- NOTE | 2020-10-22 13:46 | General Progress Note ---
Subjective ROS Limited/Unobtainable: No Constitutional: Reports: malaise, weakness HEENT: Reports: no symptoms Cardiovascular: Reports: no symptoms Respiratory: Reports: cough, shortness of breath, sputum Gastrointestinal/Abdominal: Reports: difficulty swallowing Genitourinary: Reports: no symptoms Neurologic/Psychiatric: Reports: no symptoms Endocrine: Reports: no symptoms Hematologic/Lymphatic: Reports: anemia Allergies: Coded Allergies: VANCOMYCIN (Verified Allergy, Severe, hive, 09/28/20) All Systems: reviewed and negative except above Subjective no events. stable on the vent. no fever or chills. no sob. confused at baseline. tolerating feeds. still looking for snf bed. Objective Last 24 Hour Vital Signs Date Time Temp Pulse Resp B/P (MAP) Pulse Ox O2 Delivery O2 Flow Rate FiO2 10/22/20 11:40 103 33 40 10/22/20 09:07 95 27 118/78 99 10/22/20 08:37 100 28 122/83 100 10/22/20 08:00 40 10/22/20 08:00 104 10/22/20 08:00 Mechanical Ventilator 10/22/20 08:00 98.2 100 28 122/83 (96) 100 10/22/20 07:25 100 35 40 10/22/20 04:00 100 10/22/20 04:00 40 10/22/20 04:00 98.2 100 32 122/84 (97) 100 10/22/20 04:00 Mechanical Ventilator 10/22/20 00:47 99 34 40 10/22/20 00:17 112 31 117/82 100 10/22/20 00:00 40 10/22/20 00:00 99.1 112 28 117/82 (94) 100 10/22/20 00:00 Mechanical Ventilator 10/22/20 00:00 106 10/21/20 20:04 40 10/21/20 20:00 Mechanical Ventilator 10/21/20 20:00 98.1 110 28 110/71 (84) 98 10/21/20 20:00 110 10/21/20 18:50 113 37 40 10/21/20 18:10 98.4 10/21/20 16:43 120 28 130/90 100 10/21/20 16:13 95 28 130/90 100 10/21/20 16:00 Mechanical Ventilator 10/21/20 16:00 97.0 95 28 130/90 (103) 100 10/21/20 16:00 112 10/21/20 16:00 40 Intake and Output 10/21/20 10/22/20 19:00 07:00 Intake Total 120 ml 920 ml Output Total 800 ml 900 ml Balance -680 ml 20 ml Free Water 200 ml Tube Feeding 120 ml 720 ml Output Urine Total 800 ml 900 ml Laboratory Tests 10/21/20 15:52: Urine Color [place], Urine Appearance Very cloudy, Urine pH 6, Urine Specific [place] 1.010, Urine Protein 3+H, Urine Glucose (UA) Negative, Urine Ketones Negative, Urine Blood 4+H, Urine Nitrite PositiveH, Urine Bilirubin Negative, Urine Urobilinogen 1H, Urine Leukocyte Esterase 2+H, Urine RBC TntcH, Urine WBC 5-10H, Urine Squamous Epithelial Cells Occasional, Urine Bacteria ManyH Height (Feet): 6 Height (Inches): 1.00 Weight (Pounds): 148 Objective General Appearance: WD/WN, confused. EENT: normal ENT inspection. +trach, dressing clean Neck: normal alignment, supple Cardiovascular: normal rate, regular rhythm Respiratory/Chest: rhonchi - bilaterally. diminished BS Abdomen: normal bowel sounds, non tender, soft, no organomegaly Edema: no edema noted Leg (L), no edema noted Leg (R) Neurologic: clerical coordinator II-XII grossly normal, responsive, disoriented Lymphatic: normal anterior cervical (L), normal anterior cervical (R), normal posterior cervical (L), normal posterior cervical (R) Assessment/Plan Problem List: (1) PNA (pneumonia) ICD Codes: J18.9 - Pneumonia, unspecified organism SNOMED: 926716025 (2) UTI (urinary tract infection) ICD Codes: N39.0 - Urinary tract infection, site not specified SNOMED: 83539319 (3) Fever ICD Codes: R50.9 - Fever, unspecified SNOMED: 026555133 Qualifiers: Qualified Codes: R50.9 - Fever, unspecified (4) Decubitus skin ulcer ICD Codes: L89.90 - Pressure ulcer of unspecified site, unspecified stage SNOMED: 926363576 (5) Malnutrition ICD Codes: E46 - Unspecified protein-calorie malnutrition SNOMED: 40791021 (6) Severe sepsis ICD Codes: A41.9 - Sepsis, unspecified organism; R65.20 - Severe sepsis without septic shock SNOMED: 28942801 (7) Hematuria ICD Codes: R31.9 - Hematuria, unspecified SNOMED: 65364625 Status: stable Assessment/Plan: cont vent support resp care tube feeds monitor residuals skin care turn q2 cont bp rx anxiolytics as needed sz rx await subacute bed Jason Layne MD Oct 22, 2020 13:46
--- NOTE | 2020-10-22 14:02 | NUR ---
Composition InstructorGeodesist SI: Respiratory Failure, Trach/Vent Dependent, Sepsis T-97.5, HR 90, RR 24 BP 122/70 WBC 9.6 AC 12, TV 450, FiO2 40%, PEEP 7.0, O2 sat 97% Cxray-mild left pleural effusion 10-15-20 IS: Lasix GT Flomax GT Colace GT Step Down Status
--- NOTE | 2020-10-22 15:24 | NUR ---
*-*DISCHARGE PLANNING*-* PATIENT HAS BEEN REFERRED TO : ROBERTA ELLISON P: [phone] S/W [place], NOT ACCEPTING ANY PATIENT AT THE MOMENT DUE TO SHORT STAFFING.
[2020-10-22 16:00] VITALS: BP 120/78
--- NOTE | 2020-10-22 16:30 | Infectious Diseases Prog Note ---
Assessment/Plan Assessment/Plan antibiotics : none A 1. MRSA Pneumonia s/p rx COVID-19 test is negative. 2. Dementia. 3. Leukocytosis improving 4. respiratory failure s/p tracheostomy 5. allergic reaction to vancomycin resolved 6. gram negative UTI P 1. start cefepime 2. will follow up cultures Subjective ROS Limited/Unobtainable: Yes Allergies: Coded Allergies: VANCOMYCIN (Verified Allergy, Severe, hive, 09/28/20) Objective Last 24 Hour Vital Signs Date Time Temp Pulse Resp B/P (MAP) Pulse Ox O2 Delivery O2 Flow Rate FiO2 10/22/20 15:31 100 34 40 10/22/20 12:00 98.5 99 28 118/73 (88) 100 10/22/20 12:00 40 10/22/20 12:00 Mechanical Ventilator 10/22/20 12:00 105 10/22/20 11:40 103 33 40 10/22/20 09:07 95 27 118/78 99 10/22/20 08:37 100 28 122/83 100 10/22/20 08:00 40 10/22/20 08:00 104 10/22/20 08:00 Mechanical Ventilator 10/22/20 08:00 98.2 100 28 122/83 (96) 100 10/22/20 07:25 100 35 40 10/22/20 04:00 100 10/22/20 04:00 40 10/22/20 04:00 98.2 100 32 122/84 (97) 100 10/22/20 04:00 Mechanical Ventilator 10/22/20 00:47 99 34 40 10/22/20 00:17 112 31 117/82 100 10/22/20 00:00 40 10/22/20 00:00 99.1 112 28 117/82 (94) 100 10/22/20 00:00 Mechanical Ventilator 10/22/20 00:00 106 10/21/20 20:04 40 10/21/20 20:00 Mechanical Ventilator 10/21/20 20:00 98.1 110 28 110/71 (84) 98 10/21/20 20:00 110 10/21/20 18:50 113 37 40 10/21/20 18:10 98.4 10/21/20 16:43 120 28 130/90 100 Height (Feet): 6 Height (Inches): 1.00 Weight (Pounds): 148 HEENT: status post trach Respiratory/Chest: lungs clear Cardiovascular: normal rate, regular rhythm, no gallop/murmur Abdomen: soft, non tender, other - GT Extremities: no edema Microbiology Date/Time Source Procedure Growth Status 10/21/20 15:52 Urine,Clean Catch Urine Culture - Preliminary Gram Negative Scotty Resulted Current Medications Medications (Trade) Dose Ordered Sig/Aleksander Route PRN Reason Start Time Stop Time Status Last Admin Dose Admin Acetaminophen (Tylenol) 650 mg Q6H PRN NG pain 1-6 10/08/20 15:30 11/07/20 15:14 10/20/20 21:29 Acetaminophen (Tylenol) 650 mg Q6H PRN ORAL Temp >100.5 10/21/20 17:30 11/20/20 17:29 10/21/20 17:40 Ascorbic Acid (Vitamin C) 250 mg DAILY NG 10/18/20 09:00 11/09/20 08:59 10/22/20 08:37 Bisacodyl (Dulcolax) 10 mg DAILYPRN PRN RECTAL Constipation 10/11/20 12:00 01/09/21 11:59 10/20/20 21:28 Diphenhydramine HCl (Benadryl) 25 mg Q6H PRN IVP Itching 09/27/20 12:15 10/27/20 12:14 10/22/20 08:38 Diphenoxylate HCl/ Atropine (Lomotil) 2.5 mg Q4H PRN ORAL Diarrhea 10/19/20 12:15 11/18/20 08:14 Docusate Sodium (Colace) 100 mg TWICE A DAY NG 10/11/20 18:00 11/10/20 17:59 10/22/20 08:37 Famotidine (Pepcid) 20 mg BID GT 10/04/20 09:00 01/02/21 08:59 10/22/20 08:37 Finasteride (Proscar) 5 mg DAILY ORAL 09/13/20 09:00 12/12/20 08:59 10/22/20 08:37 Furosemide (Lasix) 40 mg DAILY GT 10/11/20 09:00 11/10/20 08:59 10/22/20 08:37 Lorazepam (Ativan) 1 mg Q4H PRN ORAL For Anxiety 10/22/20 00:15 10/29/20 00:14 10/22/20 08:37 Multivitamins (Multivitamins W/ Minerals 15ml Liquid) 15 ml DAILY NG 09/26/20 09:00 10/26/20 08:59 10/22/20 08:38 Spironolactone (Aldactone) 25 mg DAILY GT 10/05/20 09:00 11/04/20 08:59 10/22/20 08:37 Tamsulosin HCl (Flomax) 0.4 mg BEDTIME ORAL 10/11/20 21:00 11/10/20 20:59 10/21/20 22:58 Valproic Acid (Depakene) 1,000 mg BEDTIME GT 10/06/20 21:00 10/31/20 20:59 10/21/20 22:58 Zinc Sulfate (Zinc Sulfate) 220 mg DAILY GT 10/06/20 09:00 01/04/21 08:59 10/22/20 08:37 Martha Collins MD Oct 22, 2020 16:30
--- NOTE | 2020-10-22 16:47 | General Progress Note ---
Subjective ROS Limited/Unobtainable: Yes Allergies: Coded Allergies: VANCOMYCIN (Verified Allergy, Severe, hive, 09/28/20) Subjective on vent contracted trach placed oxygenation noted in ASTER Objective Last 24 Hour Vital Signs Date Time Temp Pulse Resp B/P (MAP) Pulse Ox O2 Delivery O2 Flow Rate FiO2 10/22/20 16:00 40 10/22/20 16:00 98.6 104 30 120/78 (92) 100 104 10/22/20 15:31 100 34 40 10/22/20 12:00 98.5 99 28 118/73 (88) 100 10/22/20 12:00 40 10/22/20 12:00 Mechanical Ventilator 10/22/20 12:00 105 10/22/20 11:40 103 33 40 10/22/20 09:07 95 27 118/78 99 10/22/20 08:37 100 28 122/83 100 10/22/20 08:00 40 10/22/20 08:00 104 10/22/20 08:00 Mechanical Ventilator 10/22/20 08:00 98.2 100 28 122/83 (96) 100 10/22/20 07:25 100 35 40 10/22/20 04:00 100 10/22/20 04:00 40 10/22/20 04:00 98.2 100 32 122/84 (97) 100 10/22/20 04:00 Mechanical Ventilator 10/22/20 00:47 99 34 40 10/22/20 00:17 112 31 117/82 100 10/22/20 00:00 40 10/22/20 00:00 99.1 112 28 117/82 (94) 100 10/22/20 00:00 Mechanical Ventilator 10/22/20 00:00 106 10/21/20 20:04 40 10/21/20 20:00 Mechanical Ventilator 10/21/20 20:00 98.1 110 28 110/71 (84) 98 10/21/20 20:00 110 10/21/20 18:50 113 37 40 10/21/20 18:10 98.4 Intake and Output 10/21/20 10/22/20 19:00 07:00 Intake Total 120 ml 920 ml Output Total 800 ml 900 ml Balance -680 ml 20 ml Free Water 200 ml Tube Feeding 120 ml 720 ml Output Urine Total 800 ml 900 ml Height (Feet): 6 Height (Inches): 1.00 Weight (Pounds): 148 Objective WDWN chronically ill trach in place feeding tube in place reduced breath sounds bilaterally with scattered rhonchi [id number] without MRG NABS nontender no CCE nonfocal poor LOC Assessment/Plan Status: stable Assessment/Plan: IMPRESSION: 1. Azotemia 2. Hypernatremia. 3. Leukocytosis. 4. Possible sepsis. 5. Hypotension. resolved 6. Dementia. 7. Acute on chronic encephalopathy. 8. Chronic respiratory failure 10. trach PLAN monitor labs taper fio2 as able ID noted; monitor follow up on antibiotics monitor oxygen needs vent support full for now off load as able monitor lytes position change monitor imaging for change d/w consultants and nursing doing poorly dc plan to subacute when able impression, plan, and exam edited and reviewed in detail care discussed with Patel Tesfaye MD Oct 22, 2020 16:47
[2020-10-22] MEDS: Cefepime HCl 1 GM in D5W 55 ML IVPB SCH (17:05)
--- NOTE | 2020-10-22 19:00 | NUR ---
NURSE NOTES: Received report from ARTEMIO Navarrete Obtunded. Occasionally opens eyes. In no apparent distress. Tolerating GT feeding well w/no residual noted. HOB elevated 45 degrees. Respirations even and unlabored. Trach to vent saturating well with current vent setting. Slightly febrile at 99.9 No signs of respiratory distress or SOB noted. Condom cath draining well. ST on cardiac surgeon. Bed in lowest position, call light within reach. Bed alarm engaged. Continue POC
[2020-10-22 20:00] VITALS: BP 121/71
[2020-10-22] MEDS: Valproic Acid 250mg/5ml Liquid GT SCH (22:05)
[2020-10-22] MEDS: Tamsulosin 0.4mg cap ORAL SCH (22:06)
[2020-10-22] MEDS: Acetaminophen 650mg/20.3ml NG PRN (22:36)
--- NOTE | 2020-10-22 23:56 | General Progress Note ---
Subjective Allergies: Coded Allergies: VANCOMYCIN (Verified Allergy, Severe, hive, 09/28/20) Subjective calm tolerated TF non communicative Objective Last 24 Hour Vital Signs Date Time Temp Pulse Resp B/P (MAP) Pulse Ox O2 Delivery O2 Flow Rate FiO2 10/22/20 22:55 121 30 40 10/22/20 20:00 Mechanical Ventilator 10/22/20 20:00 122 10/22/20 20:00 99.9 125 32 121/71 (88) 100 104 10/22/20 20:00 40 10/22/20 18:55 98 35 40 10/22/20 16:30 Mechanical Ventilator 10/22/20 16:00 101 10/22/20 16:00 40 10/22/20 16:00 98.6 104 30 120/78 (92) 100 104 10/22/20 16:00 Mechanical Ventilator 10/22/20 15:31 100 34 40 10/22/20 12:00 98.5 99 28 118/73 (88) 100 10/22/20 12:00 40 10/22/20 12:00 Mechanical Ventilator 10/22/20 12:00 105 10/22/20 11:40 103 33 40 10/22/20 09:07 95 27 118/78 99 10/22/20 08:37 100 28 122/83 100 10/22/20 08:00 40 10/22/20 08:00 104 10/22/20 08:00 Mechanical Ventilator 10/22/20 08:00 98.2 100 28 122/83 (96) 100 10/22/20 07:25 100 35 40 10/22/20 04:00 100 10/22/20 04:00 40 10/22/20 04:00 98.2 100 32 122/84 (97) 100 10/22/20 04:00 Mechanical Ventilator 10/22/20 00:47 99 34 40 10/22/20 00:17 112 31 117/82 100 10/22/20 00:00 40 10/22/20 00:00 99.1 112 28 117/82 (94) 100 10/22/20 00:00 Mechanical Ventilator 10/22/20 00:00 106 Intake and Output 10/21/20 10/22/20 19:00 07:00 Intake Total 120 ml 920 ml Output Total 800 ml 900 ml Balance -680 ml 20 ml Free Water 200 ml Tube Feeding 120 ml 720 ml Output Urine Total 800 ml 900 ml Height (Feet): 6 Height (Inches): 1.00 Weight (Pounds): 148 Objective Thin WM on vent/trach calm, awake Skin: no hematoma or ecchymosis HEENT NCAT supple, (+) trach coarse ronchi RR, slightly tachy abd soft flat ND, (+) GT no edema Assessment/Plan Status: stable Assessment/Plan: Assessment - resp failure - s/p PEG - anemia - OBS/Dementia - sepsis - diarrhea, C Diff (-) - Azotemia, resolved - CHF - malnutrition , low albumin - leukocytosis - hypernatremia Recommendations -Vent care / support - cards and pulm follow up - supportive care - abx - PPI - TF Deborah Cabrera MD Oct 22, 2020 23:56
[2020-10-23] VITALS: BP 108/70
--- NOTE | 2020-10-23 | NUR ---
NURSE NOTES: Restless at times otherwise stable. Respirations even and unlabored. VSS stable. Afebrile. Oral care done. Saturating well with current vent setting. No distress noted.
--- NOTE | 2020-10-23 00:40 | General Progress Note ---
Subjective Allergies: Coded Allergies: VANCOMYCIN (Verified Allergy, Severe, hive, 09/28/20) Subjective calm tolerated TF non communicative Objective Last 24 Hour Vital Signs Date Time Temp Pulse Resp B/P (MAP) Pulse Ox O2 Delivery O2 Flow Rate FiO2 10/22/20 22:55 121 30 40 10/22/20 20:00 Mechanical Ventilator 10/22/20 20:00 122 10/22/20 20:00 99.9 125 32 121/71 (88) 100 104 10/22/20 20:00 40 10/22/20 18:55 98 35 40 10/22/20 16:30 Mechanical Ventilator 10/22/20 16:00 101 10/22/20 16:00 40 10/22/20 16:00 98.6 104 30 120/78 (92) 100 104 10/22/20 16:00 Mechanical Ventilator 10/22/20 15:31 100 34 40 10/22/20 12:00 98.5 99 28 118/73 (88) 100 10/22/20 12:00 40 10/22/20 12:00 Mechanical Ventilator 10/22/20 12:00 105 10/22/20 11:40 103 33 40 10/22/20 09:07 95 27 118/78 99 10/22/20 08:37 100 28 122/83 100 10/22/20 08:00 40 10/22/20 08:00 104 10/22/20 08:00 Mechanical Ventilator 10/22/20 08:00 98.2 100 28 122/83 (96) 100 10/22/20 07:25 100 35 40 10/22/20 04:00 100 10/22/20 04:00 40 10/22/20 04:00 98.2 100 32 122/84 (97) 100 10/22/20 04:00 Mechanical Ventilator 10/22/20 00:47 99 34 40 Intake and Output 10/22/20 10/23/20 19:00 07:00 Intake Total 825 ml 120 ml Output Total 400 ml Balance 425 ml 120 ml Free Water 50 ml IV Total 55 ml Tube Feeding 720 ml 120 ml Output Urine Total 400 ml Height (Feet): 6 Height (Inches): 1.00 Weight (Pounds): 148 Objective Thin WM on vent/trach calm, awake Skin: no hematoma or ecchymosis HEENT NCAT supple, (+) trach coarse ronchi RR, slightly tachy abd soft flat ND, (+) GT no edema Assessment/Plan Status: stable Assessment/Plan: Assessment - resp failure - s/p PEG - anemia - OBS/Dementia - sepsis - diarrhea, C Diff (-) - Azotemia, resolved - CHF - malnutrition , low albumin - leukocytosis - hypernatremia Recommendations -Vent care / support - cards and pulm follow up - supportive care - abx - PPI - TF Deborah Cabrera MD Oct 23, 2020 00:40
--- NOTE | 2020-10-23 01:42 | Cardiology Progress Note ---
Subjective DATE OF SERVICE: Oct 22, 2020 Remains on vent via trach, now requiring 40% oxygen delivery. Remains congested; less edematous. Fluid balance negative on current diuretic dose. BP remains controlled. Monitor: sinus with rare ectopy. (10/15) 7.47/42/75 CXR (10/15) improved infiltrates with small left eff'n Objective Last 24 Hour Vital Signs Date Time Temp Pulse Resp B/P (MAP) Pulse Ox O2 Delivery O2 Flow Rate FiO2 10/23/20 00:00 40 10/23/20 00:00 Mechanical Ventilator 10/22/20 22:55 121 30 40 10/22/20 20:00 Mechanical Ventilator 10/22/20 20:00 122 10/22/20 20:00 99.9 125 32 121/71 (88) 100 104 10/22/20 20:00 40 10/22/20 18:55 98 35 40 10/22/20 16:30 Mechanical Ventilator 10/22/20 16:00 101 10/22/20 16:00 40 10/22/20 16:00 98.6 104 30 120/78 (92) 100 104 10/22/20 16:00 Mechanical Ventilator 10/22/20 15:31 100 34 40 10/22/20 12:00 98.5 99 28 118/73 (88) 100 10/22/20 12:00 40 10/22/20 12:00 Mechanical Ventilator 10/22/20 12:00 105 10/22/20 11:40 103 33 40 10/22/20 09:07 95 27 118/78 99 10/22/20 08:37 100 28 122/83 100 10/22/20 08:00 40 10/22/20 08:00 104 10/22/20 08:00 Mechanical Ventilator 10/22/20 08:00 98.2 100 28 122/83 (96) 100 10/22/20 07:25 100 35 40 10/22/20 04:00 100 10/22/20 04:00 40 10/22/20 04:00 98.2 100 32 122/84 (97) 100 10/22/20 04:00 Mechanical Ventilator ROS: no change from my evaluation of 09/10/20. HEENT: Mechanically Ventilated, Thin Trach secretions RHYTHM: NSR, ST LUNGS: bilat. rhonchi and rales, trach site clean CARDIAC: normal rate, regular rhythm, normal S1 and S2, rapid rate ABDOMEN: normal bowel sounds, soft, G-Tube intact EXTREMITIES: trace edema Microbiology Date/Time Source Procedure Growth Status 10/21/20 15:52 Urine,Clean Catch Urine Culture - Preliminary Gram Negative Scotty Resulted Assessment/Plan Assessment/Plan Respiratory failure with hypoxia - s/p tracheostomy Sepsis Aspiration PNA Recurring shock - recovered Diarrhea Dehydration/hypernatremia corrected Acute myocardial ischemia Acute renal failure HC assoc PNA UTI Transaminitis, acute CVA/dementia Paroxysmal sinus bradycardia and tachycardia Acute/chronic diastolic CHF now compensated; recent increase in BNP noted. Severe protein/calorie malnutrition with dysphagia; now s/p PEG Hypokalemia Vent support with trach care; wean down O2 as able. Antimicrobials per ID. ?reculture for fever Replace lytes as needed. DVT prophyl Cardiac monitoring Diuresis with oral maint dose of furosemide and aldactone now; trend BNP. O2 taper Follow up labs and adjust rx accordingly. Madi Rios MD Oct 23, 2020 01:41
[2020-10-23] MEDS: LORazepam 1mg tab ORAL PRN ×2 (02:32→14:48)
[2020-10-23 04:00] VITALS: BP 112/75
--- NOTE | 2020-10-23 04:00 | NUR ---
NURSE NOTES: Calm at present moment. Respirations even and unlabored. ST at 109 on air sampling and monitoring. Tolerating GT feeding well. VSS stable. Afebrile. Saturating well with current vent setting. No distress noted.
[2020-10-23] MEDS: Cefepime HCl 1 GM in D5W 55 ML IVPB SCH ×2 (05:23→16:08)
--- NOTE | 2020-10-23 07:15 | NUR ---
HAND-OFF: Report given to Radha Morales RN.
--- NOTE | 2020-10-23 08:00 | NUR ---
NURSE NOTES: Received patient not in any acute cardio respiratory distress with ventilator setting well tolerated. Suction secretion with thick yellow sputum. Hob elevated for aspiration precaution observed. Head to toe assessment done. Complete bath provided to the patient.
--- NOTE | 2020-10-23 08:09 | NUR ---
RD ASSESSMENT & RECOMMENDATIONS SEE CARE ACTIVITY FOR COMPLETE ASSESSMENT DAILY ESTIMATED NEEDS: Needs based on Wound, underweight, critical care/ 55kg 25-33 kcals/kg 4800-2382 total kcals 1.25-2 g protein/kg 69-110 g total protein 25-30 mL/kg 5376-0566 total fluid mLs NUTRITION DIAGNOSIS: * Increased kcal/prot needs R/T wound healing and underweight status as evidenced by pt admitted w/ wounds including DTI 2 coccyx and stage 1 @ lt ischium, pt @ 73% IBW w/ low BMI per guidelines. * Swallowing difficulty R/T respiratory status as evidenced by s/p code blue (09/22), orally intubated, s/p trach placement (09/27), s/p PEG placement (10/01), on GT feeds. CURRENT TF: Jevity 1.2 @60 ml/hr ENTERAL NUTRITION RECOMMENDATIONS: Jevity 1.2 @ 60ml/hr x 24 hrs to provide 1440ml, 1728kcal, 80g prot, 1162ml free water * Maintain current TF as tolerated * HOB over 30 degrees/ water flush per MD ADDITIONAL RECOMMENDATIONS: * Calibrated daily bedscale wt Per SNF: HT=70" * Wound healing: TF rec @ goal will provide 100% RDI Continue Vit C and ZnSO4, add Davidson BID via TF * Monitor lytes, replete as needed * Monitor hydration status: BUN trend up (now 42), on diuretics Increase water flushes as medically able
[2020-10-23] MEDS: Furosemide 40mg tab GT SCH (08:21)
[2020-10-23] MEDS: Docusate 100mg/10ml Liq NG SCH ×2 (08:21→17:05)
[2020-10-23] MEDS: Multivitamins W/Minerals 15 ML UDC NG SCH (08:21)
[2020-10-23] MEDS: Zinc Sulfate 220mg GT SCH (08:21)
[2020-10-23] MEDS: Spironolactone 25mg tab GT SCH (08:22)
[2020-10-23] MEDS: Ascorbic Acid 500mg tab NG SCH (08:22)
--- NOTE | 2020-10-23 08:30 | General Progress Note ---
Subjective ROS Limited/Unobtainable: Yes Allergies: Coded Allergies: VANCOMYCIN (Verified Allergy, Severe, hive, 09/28/20) Subjective on vent contracted trach placed oxygenation noted cultures noted Objective Last 24 Hour Vital Signs Date Time Temp Pulse Resp B/P (MAP) Pulse Ox O2 Delivery O2 Flow Rate FiO2 10/23/20 07:31 96 31 40 10/23/20 04:00 Mechanical Ventilator 10/23/20 04:00 97.7 109 29 112/75 (87) 98 10/23/20 04:00 111 10/23/20 04:00 40 10/23/20 03:00 99 33 40 10/23/20 02:32 126 31 144/83 97 10/23/20 00:00 40 10/23/20 00:00 Mechanical Ventilator 10/23/20 00:00 121 10/23/20 00:00 101.7 121 21 108/70 (83) 97 10/22/20 23:00 101.0 10/22/20 22:55 121 30 40 10/22/20 20:00 Mechanical Ventilator 10/22/20 20:00 122 10/22/20 20:00 99.9 125 32 121/71 (88) 100 104 10/22/20 20:00 40 10/22/20 18:55 98 35 40 10/22/20 16:30 Mechanical Ventilator 10/22/20 16:00 101 10/22/20 16:00 40 10/22/20 16:00 98.6 104 30 120/78 (92) 100 104 10/22/20 16:00 Mechanical Ventilator 10/22/20 15:31 100 34 40 10/22/20 12:00 98.5 99 28 118/73 (88) 100 10/22/20 12:00 40 10/22/20 12:00 Mechanical Ventilator 10/22/20 12:00 105 10/22/20 11:40 103 33 40 10/22/20 09:07 95 27 118/78 99 10/22/20 08:37 100 28 122/83 100 Intake and Output 10/22/20 10/23/20 19:00 07:00 Intake Total 825 ml 765 ml Output Total 400 ml 700 ml Balance 425 ml 65 ml Free Water 50 ml 50 ml IV Total 55 ml 55 ml Tube Feeding 720 ml 660 ml Output Urine Total 400 ml 700 ml Height (Feet): 6 Height (Inches): 1.00 Weight (Pounds): 148 Objective WDWN chronically ill trach in place feeding tube in place reduced breath sounds bilaterally with scattered rhonchi [id number] without MRG NABS nontender no CCE nonfocal poor LOC Assessment/Plan Status: stable Assessment/Plan: IMPRESSION: 1. Azotemia 2. Hypernatremia. 3. Leukocytosis. 4. Possible sepsis. 5. Hypotension. resolved 6. Dementia. 7. Acute on chronic encephalopathy. 8. Chronic respiratory failure 10. trach PLAN monitor labs taper fio2 as able ID noted; monitor follow up on antibiotics monitor oxygen needs vent support full for now off load as able monitor lytes position change monitor imaging for change d/w consultants and nursing doing poorly dc plan to subacute when able impression, plan, and exam edited and reviewed in detail care discussed with Patel Tesfaye MD Oct 23, 2020 08:30
[2020-10-23 08:47] VITALS: BP 112/75
--- NOTE | 2020-10-23 09:34 | Urology Progress Note ---
Assessment/Plan Status: stable Assessment/Plan: 1. Gross hematuria. 2. Pyuria and possible UTI. 3. Proteinuria. 4. BPH. 5. Urinary retention. 6. Probable neurogenic bladder. 7. Possible sepsis. monitor clinically back on abx, d/w ID flomax and proscar cysto electively andrade removed monitor for voiding and reinsert PRN f/u on urine cx Subjective Allergies: Coded Allergies: VANCOMYCIN (Verified Allergy, Severe, hive, 09/28/20) Subjective remains on vent, trach 09/27 andrade out, voiding/incontinent, condom cath Objective Last 24 Hour Vital Signs Date Time Temp Pulse Resp B/P (MAP) Pulse Ox O2 Delivery O2 Flow Rate FiO2 10/23/20 08:48 40 10/23/20 08:47 99.0 104 26 112/75 (87) 100 10/23/20 08:43 99 10/23/20 07:31 96 31 40 10/23/20 04:00 Mechanical Ventilator 10/23/20 04:00 97.7 109 29 112/75 (87) 98 10/23/20 04:00 111 10/23/20 04:00 40 10/23/20 03:00 99 33 40 10/23/20 02:32 126 31 144/83 97 10/23/20 00:00 40 10/23/20 00:00 Mechanical Ventilator 10/23/20 00:00 121 10/23/20 00:00 101.7 121 21 108/70 (83) 97 10/22/20 23:00 101.0 10/22/20 22:55 121 30 40 10/22/20 20:00 Mechanical Ventilator 10/22/20 20:00 122 10/22/20 20:00 99.9 125 32 121/71 (88) 100 104 10/22/20 20:00 40 10/22/20 18:55 98 35 40 10/22/20 16:30 Mechanical Ventilator 10/22/20 16:00 101 10/22/20 16:00 40 10/22/20 16:00 98.6 104 30 120/78 (92) 100 104 10/22/20 16:00 Mechanical Ventilator 10/22/20 15:31 100 34 40 10/22/20 12:00 98.5 99 28 118/73 (88) 100 10/22/20 12:00 40 10/22/20 12:00 Mechanical Ventilator 10/22/20 12:00 105 10/22/20 11:40 103 33 40 Intake and Output 10/22/20 10/23/20 19:00 07:00 Intake Total 825 ml 765 ml Output Total 400 ml 700 ml Balance 425 ml 65 ml Free Water 50 ml 50 ml IV Total 55 ml 55 ml Tube Feeding 720 ml 660 ml Output Urine Total 400 ml 700 ml Microbiology Date/Time Source Procedure Growth Status 10/21/20 15:52 Urine,Clean Catch Urine Culture - Preliminary Gram Negative Scotty Resulted 10/09/20 18:00 Sputum Gram Stain - Final Complete 10/09/20 18:00 Sputum Culture - Final Klebsiella Pneumoniae Usual Respiratory Louisa Complete 09/18/20 18:30 Stool Clostridium difficile Toxin Assay - Final Complete 09/17/20 12:58 Blood Blood Culture - Final NO GROWTH AFTER 5 DAYS Complete 09/10/20 17:15 Rectum VRE Culture - Final Enterococcus Faecalis - Vre Complete Current Medications Medications (Trade) Dose Ordered Sig/Aleksander Route PRN Reason Start Time Stop Time Status Last Admin Dose Admin Acetaminophen (Tylenol) 650 mg Q6H PRN NG pain 1-6 10/08/20 15:30 11/07/20 15:14 10/22/20 22:36 Acetaminophen (Tylenol) 650 mg Q6H PRN ORAL Temp >100.5 10/21/20 17:30 11/20/20 17:29 10/21/20 17:40 Ascorbic Acid (Vitamin C) 250 mg DAILY NG 10/18/20 09:00 11/09/20 08:59 10/23/20 08:22 Bisacodyl (Dulcolax) 10 mg DAILYPRN PRN RECTAL Constipation 10/11/20 12:00 01/09/21 11:59 10/20/20 21:28 Cefepime HCl 1 gm/ Dextrose 55 ml @ 110 mls/hr Q12H IVPB 10/22/20 17:00 10/29/20 16:59 10/23/20 05:23 Diphenhydramine HCl (Benadryl) 25 mg Q6H PRN IVP Itching 09/27/20 12:15 10/27/20 12:14 10/22/20 22:06 Diphenoxylate HCl/ Atropine (Lomotil) 2.5 mg Q4H PRN ORAL Diarrhea 10/19/20 12:15 11/18/20 08:14 Docusate Sodium (Colace) 100 mg TWICE A DAY NG 10/11/20 18:00 11/10/20 17:59 10/23/20 08:21 Famotidine (Pepcid) 20 mg BID GT 10/04/20 09:00 01/02/21 08:59 10/23/20 08:21 Finasteride (Proscar) 5 mg DAILY ORAL 09/13/20 09:00 12/12/20 08:59 10/23/20 08:21 Furosemide (Lasix) 40 mg DAILY GT 10/11/20 09:00 11/10/20 08:59 10/23/20 08:21 Lorazepam (Ativan) 1 mg Q4H PRN ORAL For Anxiety 10/22/20 00:15 10/29/20 00:14 10/23/20 02:32 Multivitamins (Multivitamins W/ Minerals 15ml Liquid) 15 ml DAILY NG 09/26/20 09:00 10/26/20 08:59 10/23/20 08:21 Spironolactone (Aldactone) 25 mg DAILY GT 10/05/20 09:00 11/04/20 08:59 10/23/20 08:22 Tamsulosin HCl (Flomax) 0.4 mg BEDTIME ORAL 10/11/20 21:00 11/10/20 20:59 10/22/20 22:06 Valproic Acid (Depakene) 1,000 mg BEDTIME GT 10/06/20 21:00 10/31/20 20:59 10/22/20 22:05 Zinc Sulfate (Zinc Sulfate) 220 mg DAILY GT 10/06/20 09:00 01/04/21 08:59 10/23/20 08:21 Height (Feet): 6 Height (Inches): 1.00 Weight (Pounds): 148 Objective exam stable urine dark sky Levi Brunson MD Oct 23, 2020 09:33
--- NOTE | 2020-10-23 12:09 | NUR ---
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
[2020-10-23 12:21] VITALS: BP 107/68
--- NOTE | 2020-10-23 15:02 | Surgery Progress Note ---
Surgery Progress Note Subjective Procedure Performed tracheostomy Additional Comments stable comfortable weaning no n/v afebrile Objective Last 24 Hour Vital Signs Date Time Temp Pulse Resp B/P (MAP) Pulse Ox O2 Delivery O2 Flow Rate FiO2 10/23/20 14:48 107 30 107/68 96 10/23/20 14:36 107 30 40 10/23/20 12:38 40 10/23/20 12:37 Mechanical Ventilator 10/23/20 12:36 108 10/23/20 12:21 98.2 102 23 107/68 (81) 96 10/23/20 11:02 108 33 40 10/23/20 08:48 40 10/23/20 08:47 99.0 104 26 112/75 (87) 100 10/23/20 08:43 99 10/23/20 08:00 Mechanical Ventilator 10/23/20 07:31 96 31 40 10/23/20 04:00 Mechanical Ventilator 10/23/20 04:00 97.7 109 29 112/75 (87) 98 10/23/20 04:00 111 10/23/20 04:00 40 10/23/20 03:00 99 33 40 10/23/20 02:32 126 31 144/83 97 10/23/20 00:00 40 10/23/20 00:00 Mechanical Ventilator 10/23/20 00:00 121 10/23/20 00:00 101.7 121 21 108/70 (83) 97 10/22/20 23:00 101.0 10/22/20 22:55 121 30 40 10/22/20 20:00 Mechanical Ventilator 10/22/20 20:00 122 10/22/20 20:00 99.9 125 32 121/71 (88) 100 104 10/22/20 20:00 40 10/22/20 18:55 98 35 40 10/22/20 16:30 Mechanical Ventilator 10/22/20 16:00 101 10/22/20 16:00 40 10/22/20 16:00 98.6 104 30 120/78 (92) 100 104 10/22/20 16:00 Mechanical Ventilator 10/22/20 15:31 100 34 40 I&O Intake and Output 10/22/20 10/23/20 19:00 07:00 Intake Total 825 ml 765 ml Output Total 400 ml 700 ml Balance 425 ml 65 ml Free Water 50 ml 50 ml IV Total 55 ml 55 ml Tube Feeding 720 ml 660 ml Output Urine Total 400 ml 700 ml Dressing: saturated Cardiovascular: RSR Respiratory: decreased breath sounds Abdomen: soft, non-tender, present bowel sounds, non-distended Extremities: no edema, no tenderness, no cyanosis Plan Problems: (1) Fever Assessment & Plan: maybe developing pneumonia cont abx pulm input thank you (2) Decubitus skin ulcer Assessment & Plan: Patient identified on admission to have multiple scabs on the left arm. mild open scabs with eschar. no drainage. no significant cellulitis. bruising no bilateral extremities noted. no signs of abuse. likely from agitation Sacral coccygeal noted to have a DTI 4.3X2.5CM. which is dark purple . RECOMMEND-CLEAN WITH SALINE, PAT DRY AND APPLY CALAZINE. COVER WITH OPTIFOAM DRESSING. REPLACE EVERY 3 DAYS OR NEEDED LEFT ISCHIUM- STAGE I PRESSURE ULCER MEASURES 4.5X1.7CM. NON-BLANCHABLE ERYTHEMA. RECOMMEND- APPLY CALAZINE AND COVER WITH OPTIFOAM DRESSING. REPLACE EVERY 7 DAYS. 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 Roman is a 70 year old male BIBA to ED of [facility] on 09/10/2020 around 14:00 due to fever. He was found to be hypotensive 91/55 (67), Temp: 100.0, leukocytosis 20.8k and subsequently transferred to ICU for septic shock. The blood culture is reportedly positive for gram positive cocci. NG tube was placed, KUB confirmed the placement to day. Pt is clinically stable with leukocytosis 20.1, improved BUN and creatine, stable hemodynamic without vasopressor. Findings: Mr. Roman is disoriented. He does ot follow commands at this time. Oral cavity is noted to be dried blood concretion likely from NG trauma. No active bleeding site is seen. Due to his level f alertness, already NG tube is in placed, PO trial was not done at this time. Transferred out ICU last night. He is non on tele. Issues: multiple wounds, s.p balaji/nasal/pharyngeal bleeding with blood culture Gram positive cocci leukocytosis trending down from 20k-20k-16k BUN/Creatine trending down from 93/1.9-79/1.3-54/1.1 Temp: 98.1~98.7, Pulse: 62~72, BP: 105/67~120/48, SPO2 98~100% on 2 liter S: Oral cavity is better condition comparison to yesterday. The mucosa is severely erythema without active bleeding. Limited level of alertness for direct therapy. NG in placed O: 1. Laryngeal palpation to trigger spontaneous cough and swallow: Pt triggered cough with laryngeal palpation. Approximately 5~10 seconds after coughing, he triggered swallow. based on this observation, he presents with copious secretion in pharynx and larynx. He continued to have poor secretion management at laryngeal level at this time. NO PO trial was given due to poor secretion at the level of air way with low level of alertness. A: 1. Probable aspiration of his own secretion with poor ability to cough and swallow 2. Dysphagia P: 1. NPO for now 2. Observe his secretion, and level of alertness for PO readiness. DAILY ESTIMATED NEEDS: Needs based on Wound, underweight/ 55kg 30-35 kcals/kg 1641-1033 total kcals 1.25-2 g protein/kg 69-110 g total protein 25-30 mL/kg 0743-1764 total fluid mLs NUTRITION DIAGNOSIS: Increased kcal/prot needs R/T wound healing and underweight status as evidenced by pt admitted w/ wounds including DTI 2 coccyx and stage 1 @ lt ischium, pt @ 73% IBW w/ low BMI per guidelines, s/p NGT insertion, on NGT feeds. CURRENT TF:Jevity 1.2 @ 50ml/hr x 24 hrs ENTERAL NUTRITION RECOMMENDATIONS: Jevity 1.2 @ 60ml/hr x 24 hrs to provide 1440ml, 1728kcal, 80g prot, 1160ml free water * As medically appropriate, increase goal rate to 60ml/hr x 24 hrs to meet 100% est kcal/prot needs * HOB over 30 degrees/ without IVF, H2O flush of 100ml q 8hrs ADDITIONAL RECOMMENDATIONS: * Calibrated daily bedscale wt Per SNF: HT=70" * Wound healing: TF rec @ goal will provide 100% RDI add Vit C 250mg QD, ZnSO4 220mg QD x 10days, Davidson BID via NGT * Monitor BGs, need for NISS w/ TF * Monitor lytes, replete as needed- high risk for refeeding syndrome -> check f/up phos and mag (4) Severe sepsis Assessment & Plan: will likely need trach and peg. patient needs protected airway and nutrition full code no family and unable to consent medically necessary. will plan soon (5) Open upper arm wound (6) Hematuria Assessment & Plan: as per urology Aubrey Gutierrez Oct 23, 2020 15:02
--- NOTE | 2020-10-23 15:22 | General Progress Note ---
Subjective ROS Limited/Unobtainable: No Constitutional: Reports: malaise, weakness HEENT: Reports: no symptoms Cardiovascular: Reports: no symptoms Respiratory: Reports: cough, shortness of breath Gastrointestinal/Abdominal: Reports: no symptoms Genitourinary: Reports: no symptoms Neurologic/Psychiatric: Reports: pre-existing deficit Endocrine: Reports: no symptoms Hematologic/Lymphatic: Reports: anemia Allergies: Coded Allergies: VANCOMYCIN (Verified Allergy, Severe, hive, 09/28/20) All Systems: reviewed and negative except above Subjective events noted. back on iv abx for yuti. ucx with gnr. otherwise stable. confused. on the vent. poorly responsive. tolerating tube feeds. Objective Last 24 Hour Vital Signs Date Time Temp Pulse Resp B/P (MAP) Pulse Ox O2 Delivery O2 Flow Rate FiO2 10/23/20 14:48 107 30 107/68 96 10/23/20 14:36 107 30 40 10/23/20 12:38 40 10/23/20 12:37 Mechanical Ventilator 10/23/20 12:36 108 10/23/20 12:21 98.2 102 23 107/68 (81) 96 10/23/20 11:02 108 33 40 10/23/20 08:48 40 10/23/20 08:47 99.0 104 26 112/75 (87) 100 10/23/20 08:43 99 10/23/20 08:00 Mechanical Ventilator 10/23/20 07:31 96 31 40 10/23/20 04:00 Mechanical Ventilator 10/23/20 04:00 97.7 109 29 112/75 (87) 98 10/23/20 04:00 111 10/23/20 04:00 40 10/23/20 03:00 99 33 40 10/23/20 02:32 126 31 144/83 97 10/23/20 00:00 40 10/23/20 00:00 Mechanical Ventilator 10/23/20 00:00 121 10/23/20 00:00 101.7 121 21 108/70 (83) 97 10/22/20 23:00 101.0 10/22/20 22:55 121 30 40 10/22/20 20:00 Mechanical Ventilator 10/22/20 20:00 122 10/22/20 20:00 99.9 125 32 121/71 (88) 100 104 10/22/20 20:00 40 10/22/20 18:55 98 35 40 10/22/20 16:30 Mechanical Ventilator 10/22/20 16:00 101 10/22/20 16:00 40 10/22/20 16:00 98.6 104 30 120/78 (92) 100 104 10/22/20 16:00 Mechanical Ventilator 10/22/20 15:31 100 34 40 Intake and Output 10/22/20 10/23/20 19:00 07:00 Intake Total 825 ml 765 ml Output Total 400 ml 700 ml Balance 425 ml 65 ml Free Water 50 ml 50 ml IV Total 55 ml 55 ml Tube Feeding 720 ml 660 ml Output Urine Total 400 ml 700 ml Height (Feet): 6 Height (Inches): 1.00 Weight (Pounds): 148 Objective General Appearance: WD/WN, confused. EENT: normal ENT inspection. +trach, dressing clean Neck: normal alignment, supple Cardiovascular: normal rate, regular rhythm Respiratory/Chest: rhonchi - bilaterally. 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 grossly normal, responsive, disoriented Lymphatic: normal anterior cervical (L), normal anterior cervical (R), normal posterior cervical (L), normal posterior cervical (R) Assessment/Plan Problem List: (1) PNA (pneumonia) ICD Codes: J18.9 - Pneumonia, unspecified organism SNOMED: 749774911 (2) UTI (urinary tract infection) ICD Codes: N39.0 - Urinary tract infection, site not specified SNOMED: 94159778 (3) Fever ICD Codes: R50.9 - Fever, unspecified SNOMED: 773737237 Qualifiers: Qualified Codes: R50.9 - Fever, unspecified (4) Decubitus skin ulcer ICD Codes: L89.90 - Pressure ulcer of unspecified site, unspecified stage SNOMED: 864983168 (5) Malnutrition ICD Codes: E46 - Unspecified protein-calorie malnutrition SNOMED: 23628060 (6) Severe sepsis ICD Codes: A41.9 - Sepsis, unspecified organism; R65.20 - Severe sepsis without septic shock SNOMED: 62776716 (7) Hematuria ICD Codes: R31.9 - Hematuria, unspecified SNOMED: 21967272 Status: stable Assessment/Plan: cont vent support resp care tube feeds monitor residuals skin care turn q2 cont bp rx anxiolytics as needed sz rx iv abx per ID follow up urine culture results await subacute bed Jason Layne MD Oct 23, 2020 15:22
[2020-10-23] MEDS: DiphenhydrAMINE 50mg/ml Inj IVP PRN (16:08)
[2020-10-23 16:22] VITALS: BP 129/76
--- NOTE | 2020-10-23 17:31 | NUR ---
*-*DISCHARGE PLANNING*-* PATIENT HAS BEEN REFERRED TO: [facility] P: [phone] S/W JAIDEN HERRERA IS REVIEWING, MAY NOT ACCEPT, CALL BACK TOMORROW 10/24/20. [facility] P: [phone] S/W BRANDON, ADMISSION BUSY, CALL BACK TOMORROW [facility] P: [phone] NO ANSWER CALL BACK 08/24/21 [facility] P: [phone] [facility] P: [phone]
--- NOTE | 2020-10-23 18:39 | General Progress Note ---
Subjective Allergies: Coded Allergies: VANCOMYCIN (Verified Allergy, Severe, hive, 09/28/20) Subjective calm tolerated TF non communicative d/c planning noted Objective Last 24 Hour Vital Signs Date Time Temp Pulse Resp B/P (MAP) Pulse Ox O2 Delivery O2 Flow Rate FiO2 10/23/20 16:22 98.2 111 35 129/76 (93) 96 10/23/20 16:19 40 10/23/20 16:18 Mechanical Ventilator 10/23/20 16:00 113 10/23/20 15:18 107 32 107/68 96 10/23/20 14:48 107 30 107/68 96 10/23/20 14:36 107 30 40 10/23/20 12:38 40 10/23/20 12:37 Mechanical Ventilator 10/23/20 12:36 108 10/23/20 12:21 98.2 102 23 107/68 (81) 96 10/23/20 11:02 108 33 40 10/23/20 08:48 40 10/23/20 08:47 99.0 104 26 112/75 (87) 100 10/23/20 08:43 99 10/23/20 08:00 Mechanical Ventilator 10/23/20 07:31 96 31 40 10/23/20 04:00 Mechanical Ventilator 10/23/20 04:00 97.7 109 29 112/75 (87) 98 10/23/20 04:00 111 10/23/20 04:00 40 10/23/20 03:00 99 33 40 10/23/20 02:32 126 31 144/83 97 10/23/20 00:00 40 10/23/20 00:00 Mechanical Ventilator 10/23/20 00:00 121 10/23/20 00:00 101.7 121 21 108/70 (83) 97 10/22/20 23:00 101.0 10/22/20 22:55 121 30 40 10/22/20 20:00 Mechanical Ventilator 10/22/20 20:00 122 10/22/20 20:00 99.9 125 32 121/71 (88) 100 104 10/22/20 20:00 40 10/22/20 18:55 98 35 40 Intake and Output 10/22/20 10/23/20 19:00 07:00 Intake Total 825 ml 825 ml Output Total 400 ml 700 ml Balance 425 ml 125 ml Free Water 50 ml 50 ml IV Total 55 ml 55 ml Tube Feeding 720 ml 720 ml Output Urine Total 400 ml 700 ml Height (Feet): 6 Height (Inches): 1.00 Weight (Pounds): 148 Objective Thin WM on vent/trach calm, awake Skin: no hematoma or ecchymosis HEENT NCAT supple, (+) trach coarse ronchi RR, slightly tachy abd soft flat ND, (+) GT no edema Assessment/Plan Status: stable Assessment/Plan: Assessment - resp failure - s/p PEG - anemia - OBS/Dementia - sepsis - diarrhea, C Diff (-) - Azotemia, resolved - CHF - malnutrition , low albumin - leukocytosis - hypernatremia Recommendations -Vent care / support - cards and pulm follow up - supportive care - abx - PPI - TF Deborah Cabrera MD Oct 23, 2020 18:39
--- NOTE | 2020-10-23 19:00 | NUR ---
NURSE NOTES: Received patient from ARTEMIO Garcia. patient is asleep in bed without any acute distress noted. Sinus tachycardia on the monitor. trach to vent at prescribed settings, tolerating well. Gtube and tube feeding running at prescribed rate, tolerating well. condom catheter in place and draining well to gravity. bed to lowest position and locked. side rails up x2 and padded. call light within easy reach. Will continue plan of care.
--- NOTE | 2020-10-23 19:22 | NUR ---
NURSE HAND-OFF REPORT: Important Events on Shift:none Patient Status:full code Diet:jevity 1.2 Pending Orders: none Pending Results/Labs:none Pending MD notification:none Latest Vital Signs: Temperature 98.2 , Pulse 111 , B/P 129 /76 , Respiratory Rate 35 , O2 SAT 96 , Mechanical Ventilator, O2 Flow Rate 45.0 . Vital Sign Comment: EKG Rhythm: Sinus Tachycardia Rhythm change?: N MD Notified?: n MD Response: Latest Schultz Fall Score: 70 Fall Risk: High Risk Safety Measures: Call light Within Reach, Bed Alarm Zone 2, Side Rails Side Rails x3, Bed position Low and Locked. Fall Precautions: Yellow Socks Door Sign Patient Fall Education Report given to
[2020-10-23 20:00] VITALS: BP 110/70
[2020-10-23] MEDS: Tamsulosin 0.4mg cap ORAL SCH (20:19)
[2020-10-23] MEDS: Valproic Acid 250mg/5ml Liquid GT SCH (20:20)
--- NOTE | 2020-10-23 23:35 | NUR ---
NURSE NOTES: patient remains asleep in bed. vital signs stable.
[2020-10-24] VITALS: BP 141/71
--- NOTE | 2020-10-24 01:14 | Cardiology Progress Note ---
Subjective DATE OF SERVICE: Oct 23, 2020 Remains on vent via trach, now requiring 40% oxygen delivery. Remains congested; less edematous. Fluid balance negative on current diuretic dose. BP remains controlled. Monitor: sinus with rare ectopy. (10/15) 7.47/42/75 CXR (10/15) improved infiltrates with small left eff'n Objective Last 24 Hour Vital Signs Date Time Temp Pulse Resp B/P (MAP) Pulse Ox O2 Delivery O2 Flow Rate FiO2 10/24/20 00:00 100.0 128 42 141/71 (94) 97 10/24/20 00:00 Mechanical Ventilator 10/23/20 23:15 129 43 40 10/23/20 20:00 107 10/23/20 20:00 99.1 121 32 110/70 (83) 92 10/23/20 20:00 40 10/23/20 20:00 Mechanical Ventilator 10/23/20 19:46 108 30 40 10/23/20 16:22 98.2 111 35 129/76 (93) 96 10/23/20 16:19 40 10/23/20 16:18 Mechanical Ventilator 10/23/20 16:00 113 10/23/20 15:18 107 32 107/68 96 10/23/20 14:48 107 30 107/68 96 10/23/20 14:36 107 30 40 10/23/20 12:38 40 10/23/20 12:37 Mechanical Ventilator 10/23/20 12:36 108 10/23/20 12:21 98.2 102 23 107/68 (81) 96 10/23/20 11:02 108 33 40 10/23/20 08:48 40 10/23/20 08:47 99.0 104 26 112/75 (87) 100 10/23/20 08:43 99 10/23/20 08:00 Mechanical Ventilator 10/23/20 07:31 96 31 40 10/23/20 04:00 Mechanical Ventilator 10/23/20 04:00 97.7 109 29 112/75 (87) 98 10/23/20 04:00 111 10/23/20 04:00 40 10/23/20 03:00 99 33 40 10/23/20 02:32 126 31 144/83 97 ROS: no change from my evaluation of 09/10/20. HEENT: Mechanically Ventilated, Thin Trach secretions RHYTHM: NSR, ST LUNGS: bilat. rhonchi and rales, trach site clean CARDIAC: normal rate, regular rhythm, normal S1 and S2 ABDOMEN: normal bowel sounds, soft, G-Tube intact EXTREMITIES: trace edema Microbiology Date/Time Source Procedure Growth Status 10/21/20 15:52 Urine,Clean Catch Urine Culture - Preliminary Gram Negative Scotty Resulted Assessment/Plan Assessment/Plan Respiratory failure with hypoxia - s/p tracheostomy Sepsis Aspiration PNA Recurring shock - recovered Diarrhea Dehydration/hypernatremia corrected Acute myocardial ischemia Acute renal failure HC assoc PNA UTI Transaminitis, acute CVA/dementia Paroxysmal sinus bradycardia and tachycardia Acute/chronic diastolic CHF now compensated; recent increase in BNP noted. Severe protein/calorie malnutrition with dysphagia; now s/p PEG Hypokalemia Vent support with trach care; wean down O2 as able. Antimicrobials per ID. ?reculture for fever Replace lytes as needed. DVT prophyl Cardiac monitoring Diuresis with oral maint dose of furosemide and aldactone now; trend BNP. O2 taper Follow up labs and adjust rx accordingly. Madi Rios MD Oct 24, 2020 01:14
--- NOTE | 2020-10-24 02:10 | Cardiology Report ---
APPROVED REPORT EKG Measurement Heart [id number] <Conclusion> Normal sinus rhythm Normal ECG
--- NOTE | 2020-10-24 02:28 | NUR ---
NURSE NOTES: patient is sleeping in bed without any acute distress noted. oral care performed. no BM.
--- NOTE | 2020-10-24 02:28 | Cardiology Report ---
APPROVED REPORT EXAM: Two-dimensional and M-mode echocardiogram with Doppler and color Doppler. INDICATION Arrhythmia M-Mode DIMENSIONS IVSd0.7 (0.7-1.1cm)Left Atrium (MM)3.8 (1.6-4.0cm) LVDd3.3 (3.5-5.6cm)Aortic Root3.3 (2.0-3.7cm) PWd1.4 (0.7-1.1cm)Aortic Cusp Exc.2.4 (1.5-2.0cm) IVSs1.3 cmEPSS0.3 (>1.0cm) LVDs1.3 (2.5-4.0cm) PWs1.4 cm <Conclusion> Normal left ventricular chamber size, systolic function and wall motion. All views were obtained from subcostal area only. Left ventricular ejection fraction estimated to be 60-65 %. No left ventricular hypertrophy. Small circumferential pericardial effusion. Possible posterior pleural effusion. Left atrial chamber size within normal limits. Right cardiac chamber sizes are within upper limits of normal. Focal aortic valve sclerosis with adequate cusp excursion. Thickened mitral valve leaflets with normal excursion. Mitral annulus and aortic root calcification. Normal pulmonic valve structure. Normal tricuspid valve structure. IVC at normal size and collapsing with respiration. A color flow and spectral Doppler study was performed and revealed: No aortic regurgitation. No mitral regurgitation. Mitral diastolic velocities suggest reduced left ventricular relaxation c/w mild diastolic dysfunction (Grade I). Trace tricuspid regurgitation. Tricuspid systolic velocities suggests peak right ventricular systolic pressure of 25 mmHg. No pulmonic regurgitation present.
--- NOTE | 2020-10-24 03:46 | NUR ---
NURSE NOTES: performed bed bath. vital signs stable. RT came at bedside and changed trach dressing.
[2020-10-24 04:00] VITALS: BP 102/67
[2020-10-24] MEDS: Cefepime HCl 1 GM in D5W 55 ML IVPB SCH (05:08)
[2020-10-24 05:40] LABS: HEMATOCRIT 23.7 % (42.0-52.0); HEMOGLOBIN 7.7 G/DL (14.2-18.0); MEAN CORPUSCULAR VOLUME 92 FL (80-99); PLATELET COUNT 172 K/UL (150-450); RED BLOOD COUNT 2.59 M/UL (4.70-6.10); RED CELL DISTRIBUTION WIDTH 14.2 % (11.6-14.8); WHITE BLOOD COUNT 13.1 K/UL (4.8-10.8)
[2020-10-24 06:02] LABS: ALBUMIN 1.6 G/DL (3.4-5.0); ALBUMIN/GLOBULIN RATIO 0.3 (1.0-2.7); BILIRUBIN,TOTAL 0.4 MG/DL (0.2-1.0); CALCIUM 8.2 MG/DL (8.5-10.1); CREATININE 2.9 MG/DL (0.55-1.30); POTASSIUM 5.1 MMOL/L (3.5-5.1)
--- NOTE | 2020-10-24 07:10 | NUR ---
NURSE NOTES: Received patient report from ARTEMIO Love. Patient is in bed, asleep at this time. Patient with Vent Shiley 8 AC 12 VT 450 FiO2 40 PEEP 7, breathing is even and unlabored with no signs of respiratory distress at this time. Condom cath in place, draining well. Bed in lowest position, locked with side rails x2 up. Call light within reach.
--- NOTE | 2020-10-24 07:15 | NUR ---
NURSE HAND-OFF REPORT: Important Events on Shift: remains stable Patient Status: full code Diet: [jevity @60 Pending Orders: [] Pending Results/Labs:[] Pending MD notification:[] Latest Vital Signs: Temperature 98.1 , Pulse 105 , B/P 102 /67 , Respiratory Rate 34 , O2 SAT 98 , Mechanical Ventilator, O2 Flow Rate 45.0 . Vital Sign Comment: stable EKG Rhythm: Sinus Tachycardia Rhythm change?: N MD Notified?: N -Dr. Gabriel linares MD Response: No New Orders Received Latest Schultz Fall Score: 70 Fall Risk: High Risk Safety Measures: Call light Within Reach, Bed Alarm Zone 2, Side Rails Side Rails x3, Bed position Low and Locked. Fall Precautions: Yellow Socks Door Sign Patient Fall Education Report given to ARTEMIO Constantino.
[2020-10-24 08:00] VITALS: BP 114/77
--- NOTE | 2020-10-24 08:56 | Urology Progress Note ---
Assessment/Plan Status: stable Assessment/Plan: 1. Gross hematuria. 2. Pyuria and possible UTI. 3. Proteinuria. 4. BPH. 5. Urinary retention. 6. Probable neurogenic bladder. 7. Possible sepsis. monitor clinically back on abx, d/w ID flomax and proscar cysto electively andrade removed monitor for voiding and reinsert PRN f/u on urine cx Subjective Allergies: Coded Allergies: VANCOMYCIN (Verified Allergy, Severe, hive, 09/28/20) Subjective remains on vent, trach 09/27 andrade out, voiding/incontinent, condom cath Objective Last 24 Hour Vital Signs Date Time Temp Pulse Resp B/P (MAP) Pulse Ox O2 Delivery O2 Flow Rate FiO2 10/24/20 08:00 98.8 102 24 114/77 (89) 100 10/24/20 07:15 103 33 40 10/24/20 04:00 Mechanical Ventilator 10/24/20 04:00 108 10/24/20 04:00 98.1 105 34 102/67 (79) 98 10/24/20 04:00 40 10/24/20 03:30 109 20 40 10/24/20 00:00 100.0 128 42 141/71 (94) 97 10/24/20 00:00 Mechanical Ventilator 10/23/20 23:15 129 43 40 10/23/20 20:00 107 10/23/20 20:00 99.1 121 32 110/70 (83) 92 10/23/20 20:00 40 10/23/20 20:00 Mechanical Ventilator 10/23/20 19:46 108 30 40 10/23/20 16:22 98.2 111 35 129/76 (93) 96 10/23/20 16:19 40 10/23/20 16:18 Mechanical Ventilator 10/23/20 16:00 113 10/23/20 15:18 107 32 107/68 96 10/23/20 14:48 107 30 107/68 96 10/23/20 14:36 107 30 40 10/23/20 12:38 40 10/23/20 12:37 Mechanical Ventilator 10/23/20 12:36 108 10/23/20 12:21 98.2 102 23 107/68 (81) 96 10/23/20 11:02 108 33 40 Intake and Output 10/23/20 10/24/20 19:00 07:00 Intake Total 980 ml 820 ml Output Total 450 ml 400 ml Balance 530 ml 420 ml Free Water 260 ml 100 ml Tube Feeding 720 ml 720 ml Output Urine Total 450 ml 400 ml # Bowel Movements 1 Microbiology Date/Time Source Procedure Growth Status 10/21/20 15:52 Urine,Clean Catch Urine Culture - Preliminary Gram Negative Scotty Resulted 10/09/20 18:00 Sputum Gram Stain - Final Complete 10/09/20 18:00 Sputum Culture - Final Klebsiella Pneumoniae Usual Respiratory Louisa Complete 09/18/20 18:30 Stool Clostridium difficile Toxin Assay - Final Complete 09/17/20 12:58 Blood Blood Culture - Final NO GROWTH AFTER 5 DAYS Complete 09/10/20 17:15 Rectum VRE Culture - Final Enterococcus Faecalis - Vre Complete Current Medications Medications (Trade) Dose Ordered Sig/Aleksander Route PRN Reason Start Time Stop Time Status Last Admin Dose Admin Acetaminophen (Tylenol) 650 mg Q6H PRN NG pain 1-6 10/08/20 15:30 11/07/20 15:14 10/22/20 22:36 Acetaminophen (Tylenol) 650 mg Q6H PRN ORAL Temp >100.5 10/21/20 17:30 11/20/20 17:29 10/21/20 17:40 Ascorbic Acid (Vitamin C) 250 mg DAILY NG 10/18/20 09:00 11/09/20 08:59 10/23/20 08:22 Bisacodyl (Dulcolax) 10 mg DAILYPRN PRN RECTAL Constipation 10/11/20 12:00 01/09/21 11:59 10/20/20 21:28 Cefepime HCl 1 gm/ Dextrose 55 ml @ 110 mls/hr Q12H IVPB 10/22/20 17:00 10/29/20 16:59 10/24/20 05:08 Diphenhydramine HCl (Benadryl) 25 mg Q6H PRN IVP Itching 09/27/20 12:15 10/27/20 12:14 10/23/20 16:08 Diphenoxylate HCl/ Atropine (Lomotil) 2.5 mg Q4H PRN ORAL Diarrhea 10/19/20 12:15 11/18/20 08:14 Docusate Sodium (Colace) 100 mg TWICE A DAY NG 10/11/20 18:00 11/10/20 17:59 10/23/20 17:05 Famotidine (Pepcid) 20 mg BID GT 10/04/20 09:00 01/02/21 08:59 10/23/20 17:05 Finasteride (Proscar) 5 mg DAILY ORAL 09/13/20 09:00 12/12/20 08:59 10/23/20 08:21 Furosemide (Lasix) 40 mg DAILY GT 10/11/20 09:00 11/10/20 08:59 10/23/20 08:21 Lorazepam (Ativan) 1 mg Q4H PRN ORAL For Anxiety 10/22/20 00:15 10/29/20 00:14 10/23/20 14:48 Multivitamins (Multivitamins W/ Minerals 15ml Liquid) 15 ml DAILY NG 09/26/20 09:00 10/26/20 08:59 10/23/20 08:21 Spironolactone (Aldactone) 25 mg DAILY GT 10/05/20 09:00 11/04/20 08:59 10/23/20 08:22 Tamsulosin HCl (Flomax) 0.4 mg BEDTIME ORAL 10/11/20 21:00 11/10/20 20:59 10/23/20 20:19 Valproic Acid (Depakene) 1,000 mg BEDTIME GT 10/06/20 21:00 10/31/20 20:59 10/23/20 20:20 Zinc Sulfate (Zinc Sulfate) 220 mg DAILY GT 10/06/20 09:00 01/04/21 08:59 10/23/20 08:21 Laboratory Tests 10/24/20 04:25: White Blood Count 13.1H, Red Blood Count 2.59L, Hemoglobin 7.7L, Hematocrit 23.7L, Mean Corpuscular Volume 92, Mean Corpuscular Hemoglobin 29.6, Mean Corpuscular Hemoglobin Concent 32.3, Red Cell Distribution Width 14.2, Platelet Count 172, Mean Platelet Volume 7.5, Neutrophils (%) (Auto) , Lymphocytes (%) (Auto) , Monocytes (%) (Auto) , Eosinophils (%) (Auto) , Basophils (%) (Auto) , Sodium Level 135L, Potassium Level 5.1, Chloride Level 102, Carbon Dioxide Level 31, Anion Gap 2L, Blood Urea Nitrogen 82H, Creatinine 2.9H, Estimat Glomerular Filtration Rate 21.7, Glucose Level 129H, Calcium Level 8.2L, Total Bilirubin 0.4, Aspartate Amino Transf (AST/SGOT) 22, Alanine Aminotransferase (ALT/SGPT) 17, Alkaline Phosphatase 64, Total Protein 7.5, Albumin 1.6L, Globulin 5.9, Albumin/Globulin Ratio 0.3L Height (Feet): 6 Height (Inches): 1.00 Weight (Pounds): 148 Objective exam stable urine dark sky Levi Brunson MD Oct 24, 2020 08:56
[2020-10-24] MEDS: Docusate 100mg/10ml Liq NG SCH ×2 (08:58→18:00)
[2020-10-24] MEDS: Furosemide 40mg tab GT SCH (08:58)
[2020-10-24] MEDS: Multivitamins W/Minerals 15 ML UDC NG SCH (08:58)
[2020-10-24] MEDS: Spironolactone 25mg tab GT SCH (08:58)
[2020-10-24] MEDS: LORazepam 1mg tab ORAL PRN (08:58)
[2020-10-24] MEDS: Ascorbic Acid 500mg tab NG SCH (08:58)
[2020-10-24] MEDS: Zinc Sulfate 220mg GT SCH (08:58)
--- NOTE | 2020-10-24 10:01 | General Progress Note ---
Subjective ROS Limited/Unobtainable: Yes Constitutional: Reports: malaise, weakness HEENT: Reports: no symptoms Cardiovascular: Reports: no symptoms Respiratory: Reports: sputum Gastrointestinal/Abdominal: Reports: difficulty swallowing Genitourinary: Reports: no symptoms Neurologic/Psychiatric: Reports: pre-existing deficit Endocrine: Reports: no symptoms Hematologic/Lymphatic: Reports: anemia Allergies: Coded Allergies: VANCOMYCIN (Verified Allergy, Severe, hive, 09/28/20) All Systems: reviewed and negative except above Subjective no events. no distress. labs noted. decreased h/h. Cr up. awake but confused at baseline. tolerating feeds. Objective Last 24 Hour Vital Signs Date Time Temp Pulse Resp B/P (MAP) Pulse Ox O2 Delivery O2 Flow Rate FiO2 10/24/20 08:58 102 24 114/77 100 10/24/20 08:00 98.8 102 24 114/77 (89) 100 10/24/20 07:15 103 33 40 10/24/20 04:00 Mechanical Ventilator 10/24/20 04:00 108 10/24/20 04:00 98.1 105 34 102/67 (79) 98 10/24/20 04:00 40 10/24/20 03:30 109 20 40 10/24/20 00:00 100.0 128 42 141/71 (94) 97 10/24/20 00:00 Mechanical Ventilator 10/23/20 23:15 129 43 40 10/23/20 20:00 107 10/23/20 20:00 99.1 121 32 110/70 (83) 92 10/23/20 20:00 40 10/23/20 20:00 Mechanical Ventilator 10/23/20 19:46 108 30 40 10/23/20 16:22 98.2 111 35 129/76 (93) 96 10/23/20 16:19 40 10/23/20 16:18 Mechanical Ventilator 10/23/20 16:00 113 10/23/20 15:18 107 32 107/68 96 10/23/20 14:48 107 30 107/68 96 10/23/20 14:36 107 30 40 10/23/20 12:38 40 10/23/20 12:37 Mechanical Ventilator 10/23/20 12:36 108 10/23/20 12:21 98.2 102 23 107/68 (81) 96 10/23/20 11:02 108 33 40 Intake and Output 10/23/20 10/24/20 19:00 07:00 Intake Total 980 ml 820 ml Output Total 450 ml 400 ml Balance 530 ml 420 ml Free Water 260 ml 100 ml Tube Feeding 720 ml 720 ml Output Urine Total 450 ml 400 ml # Bowel Movements 1 Laboratory Tests 10/24/20 04:25: White Blood Count 13.1H, Red Blood Count 2.59L, Hemoglobin 7.7L, Hematocrit 23.7L, Mean Corpuscular Volume 92, Mean Corpuscular Hemoglobin 29.6, Mean Corpuscular Hemoglobin Concent 32.3, Red Cell Distribution Width 14.2, Platelet Count 172, Mean Platelet Volume 7.5, Neutrophils (%) (Auto) , Lymphocytes (%) (Auto) , Monocytes (%) (Auto) , Eosinophils (%) (Auto) , Basophils (%) (Auto) , Sodium Level 135L, Potassium Level 5.1, Chloride Level 102, Carbon Dioxide Level 31, Anion Gap 2L, Blood Urea Nitrogen 82H, Creatinine 2.9H, Estimat Glomerular Filtration Rate 21.7, Glucose Level 129H, Calcium Level 8.2L, Total Bilirubin 0.4, Aspartate Amino Transf (AST/SGOT) 22, Alanine Aminotransferase (ALT/SGPT) 17, Alkaline Phosphatase 64, Total Protein 7.5, Albumin 1.6L, Globulin 5.9, Albumin/Globulin Ratio 0.3L Height (Feet): 6 Height (Inches): 1.00 Weight (Pounds): 148 Objective General Appearance: WD/WN, confused. EENT: normal ENT inspection. +trach, dressing clean Neck: normal alignment, supple Cardiovascular: normal rate, regular rhythm Respiratory/Chest: rhonchi - bilaterally. 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, responsive, disoriented Lymphatic: normal anterior cervical (L), normal anterior cervical (R), normal posterior cervical (L), normal posterior cervical (R) Assessment/Plan Problem List: (1) PNA (pneumonia) ICD Codes: J18.9 - Pneumonia, unspecified organism SNOMED: 443815554 (2) UTI (urinary tract infection) ICD Codes: N39.0 - Urinary tract infection, site not specified SNOMED: 84067566 (3) Fever ICD Codes: R50.9 - Fever, unspecified SNOMED: 226932308 Qualifiers: Qualified Codes: R50.9 - Fever, unspecified (4) Decubitus skin ulcer ICD Codes: L89.90 - Pressure ulcer of unspecified site, unspecified stage SNOMED: 367997948 (5) Malnutrition ICD Codes: E46 - Unspecified protein-calorie malnutrition SNOMED: 62835800 (6) Severe sepsis ICD Codes: A41.9 - Sepsis, unspecified organism; R65.20 - Severe sepsis without septic shock SNOMED: 06817741 (7) Hematuria ICD Codes: R31.9 - Hematuria, unspecified SNOMED: 80849265 Status: stable Assessment/Plan: cont vent support resp care tube feeds monitor residuals skin care turn q2 cont bp rx anxiolytics as needed sz rx bladder scan monitor h/h transfuse as needed await subacute bed Jason Layne MD Oct 24, 2020 10:01
[2020-10-24 12:00] VITALS: BP 110/72
--- NOTE | 2020-10-24 12:33 | General Progress Note ---
Subjective ROS Limited/Unobtainable: Yes Allergies: Coded Allergies: VANCOMYCIN (Verified Allergy, Severe, hive, 09/28/20) Subjective on vent contracted and same trach placed oxygenation noted cultures noted and reviewed Objective Last 24 Hour Vital Signs Date Time Temp Pulse Resp B/P (MAP) Pulse Ox O2 Delivery O2 Flow Rate FiO2 10/24/20 08:58 102 24 114/77 100 10/24/20 08:00 40 10/24/20 08:00 Mechanical Ventilator 10/24/20 08:00 98.8 102 24 114/77 (89) 100 10/24/20 07:38 105 10/24/20 07:15 103 33 40 10/24/20 04:00 Mechanical Ventilator 10/24/20 04:00 108 10/24/20 04:00 98.1 105 34 102/67 (79) 98 10/24/20 04:00 40 10/24/20 03:30 109 20 40 10/24/20 00:00 100.0 128 42 141/71 (94) 97 10/24/20 00:00 Mechanical Ventilator 10/23/20 23:15 129 43 40 10/23/20 20:00 107 10/23/20 20:00 99.1 121 32 110/70 (83) 92 10/23/20 20:00 40 10/23/20 20:00 Mechanical Ventilator 10/23/20 19:46 108 30 40 10/23/20 16:22 98.2 111 35 129/76 (93) 96 10/23/20 16:19 40 10/23/20 16:18 Mechanical Ventilator 10/23/20 16:00 113 10/23/20 15:18 107 32 107/68 96 10/23/20 14:48 107 30 107/68 96 10/23/20 14:36 107 30 40 10/23/20 12:38 40 10/23/20 12:37 Mechanical Ventilator 10/23/20 12:36 108 Intake and Output 10/23/20 10/24/20 19:00 07:00 Intake Total 980 ml 820 ml Output Total 450 ml 400 ml Balance 530 ml 420 ml Free Water 260 ml 100 ml Tube Feeding 720 ml 720 ml Output Urine Total 450 ml 400 ml # Bowel Movements 1 Laboratory Tests 10/24/20 04:25: White Blood Count 13.1H, Red Blood Count 2.59L, Hemoglobin 7.7L, Hematocrit 23.7L, Mean Corpuscular Volume 92, Mean Corpuscular Hemoglobin 29.6, Mean Corpuscular Hemoglobin Concent 32.3, Red Cell Distribution Width 14.2, Platelet Count 172, Mean Platelet Volume 7.5, Neutrophils (%) (Auto) , Lymphocytes (%) (Auto) , Monocytes (%) (Auto) , Eosinophils (%) (Auto) , Basophils (%) (Auto) , Sodium Level 135L, Potassium Level 5.1, Chloride Level 102, Carbon Dioxide Level 31, Anion Gap 2L, Blood Urea Nitrogen 82H, Creatinine 2.9H, Estimat Glomerular Filtration Rate 21.7, Glucose Level 129H, Calcium Level 8.2L, Total Bilirubin 0.4, Aspartate Amino Transf (AST/SGOT) 22, Alanine Aminotransferase (ALT/SGPT) 17, Alkaline Phosphatase 64, Total Protein 7.5, Albumin 1.6L, Globulin 5.9, Al bumin/Globulin Ratio 0.3L Height (Feet): 6 Height (Inches): 1.00 Weight (Pounds): 148 Objective WDWN chronically ill trach in place feeding tube in place reduced breath sounds bilaterally with scattered rhonchi [id number] without MRG NABS nontender no CCE nonfocal poor LOC Assessment/Plan Status: stable Assessment/Plan: IMPRESSION: 1. Azotemia 2. Hypernatremia. 3. Leukocytosis. 4. Possible sepsis. 5. Hypotension. resolved 6. Dementia. 7. Acute on chronic encephalopathy. 8. Chronic respiratory failure 10. trach PLAN monitor labs for change taper fio2 ID noted; monitor follow up on antibiotics monitor oxygen needs vent support full for now off load as able monitor lytes position change monitor imaging for change d/w consultants and nursing doing poorly dc plan to subacute when able and location found chronic care for now impression, plan, and exam edited and reviewed in detail care discussed with Patel Tesfaye MD Oct 24, 2020 12:32
--- NOTE | 2020-10-24 12:43 | Surgery Progress Note ---
Surgery Progress Note Subjective Procedure Performed tracheostomy Additional Comments Patient seen and examined bedside. No acute events. Resting comfortably. Labs noted. Exam stable. No complaints at this time. Imaging reviewed micro reviewed afebrile hemodynamic stable Objective Last 24 Hour Vital Signs Date Time Temp Pulse Resp B/P (MAP) Pulse Ox O2 Delivery O2 Flow Rate FiO2 10/24/20 09:30 100 24 112/73 97 10/24/20 08:58 102 24 114/77 100 10/24/20 08:00 40 10/24/20 08:00 Mechanical Ventilator 10/24/20 08:00 98.8 102 24 114/77 (89) 100 10/24/20 07:38 105 10/24/20 07:15 103 33 40 10/24/20 04:00 Mechanical Ventilator 10/24/20 04:00 108 10/24/20 04:00 98.1 105 34 102/67 (79) 98 10/24/20 04:00 40 10/24/20 03:30 109 20 40 10/24/20 00:00 100.0 128 42 141/71 (94) 97 10/24/20 00:00 Mechanical Ventilator 10/23/20 23:15 129 43 40 10/23/20 20:00 107 10/23/20 20:00 99.1 121 32 110/70 (83) 92 10/23/20 20:00 40 10/23/20 20:00 Mechanical Ventilator 10/23/20 19:46 108 30 40 10/23/20 16:22 98.2 111 35 129/76 (93) 96 10/23/20 16:19 40 10/23/20 16:18 Mechanical Ventilator 10/23/20 16:00 113 10/23/20 15:18 107 32 107/68 96 10/23/20 14:48 107 30 107/68 96 10/23/20 14:36 107 30 40 I&O Intake and Output 10/23/20 10/24/20 19:00 07:00 Intake Total 980 ml 820 ml Output Total 450 ml 400 ml Balance 530 ml 420 ml Free Water 260 ml 100 ml Tube Feeding 720 ml 720 ml Output Urine Total 450 ml 400 ml # Bowel Movements 1 Dressing: saturated Cardiovascular: RSR Respiratory: decreased breath sounds Abdomen: soft, non-tender, present bowel sounds, non-distended Extremities: no edema, no tenderness, no cyanosis Laboratory Tests Test 10/24/20 04:25 White Blood Count 13.1 K/UL (4.8-10.8) H Red Blood Count 2.59 M/UL (4.70-6.10) L Hemoglobin 7.7 G/DL (14.2-18.0) L Hematocrit 23.7 % (42.0-52.0) L Mean Corpuscular Volume 92 FL (80-99) Mean Corpuscular Hemoglobin 29.6 PG (27.0-31.0) Mean Corpuscular Hemoglobin Concent 32.3 G/DL (32.0-36.0) Red Cell Distribution Width 14.2 % (11.6-14.8) Platelet Count 172 K/UL (150-450) Mean Platelet Volume 7.5 FL (6.5-10.1) Neutrophils (%) (Auto) % (45.0-75.0) Lymphocytes (%) (Auto) % (20.0-45.0) Monocytes (%) (Auto) % (1.0-10.0) Eosinophils (%) (Auto) % (0.0-3.0) Basophils (%) (Auto) % (0.0-2.0) Sodium Level 135 MMOL/L (136-145) L Potassium Level 5.1 MMOL/L (3.5-5.1) Chloride Level 102 MMOL/L (98-107) Carbon Dioxide Level 31 MMOL/L (21-32) Anion Gap 2 mmol/L (5-15) L Blood Urea Nitrogen 82 mg/dL (7-18) H Creatinine 2.9 MG/DL (0.55-1.30) H Estimat Glomerular Filtration Rate 21.7 mL/min (>60) Glucose Level 129 MG/DL (74-106) H Calcium Level 8.2 MG/DL (8.5-10.1) L Total Bilirubin 0.4 MG/DL (0.2-1.0) Aspartate Amino Transf (AST/SGOT) 22 U/L (15-37) Alanine Aminotransferase (ALT/SGPT) 17 U/L (12-78) Alkaline Phosphatase 64 U/L (46-116) Total Protein 7.5 G/DL (6.4-8.2) Albumin 1.6 G/DL (3.4-5.0) L Globulin 5.9 g/dL Albumin/Globulin Ratio 0.3 (1.0-2.7) L Plan Problems: (1) Fever Assessment & Plan: maybe developing pneumonia cont abx pulm input thank you (2) Decubitus skin ulcer Assessment & Plan: Patient identified on admission to have multiple scabs on the left arm. mild open scabs with eschar. no drainage. no significant cellulitis. bruising no bilateral extremities noted. no signs of abuse. likely from agitation Sacral coccygeal noted to have a DTI 4.3X2.5CM. which is dark purple . RECOMMEND-CLEAN WITH SALINE, PAT DRY AND APPLY CALAZINE. COVER WITH OPTIFOAM DRESSING. REPLACE EVERY 3 DAYS OR NEEDED LEFT ISCHIUM- STAGE I PRESSURE ULCER MEASURES 4.5X1.7CM. NON-BLANCHABLE ERYTHEMA. RECOMMEND- APPLY CALAZINE AND COVER WITH OPTIFOAM DRESSING. REPLACE EVERY 7 DAYS. 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 Roman is a 70 year old male BIBA to ED [place] [facility] [place] 09[place]10/2020 around 14:00 due to fever. He was found to be hypotensive 91/55 (67), Temp: 100.0, leukocytosis 20.8k and subsequently transferred to ICU for septic shock. The blood culture is reportedly positive for gram positive cocci. NG tube was placed, KUB confirmed the placement to day. Pt is clinically stable with leukocytosis 20.1, improved BUN and creatine, stable hemodynamic without vasopressor. Findings: Mr. Roman is disoriented. He does ot follow commands at this time. Oral cavity is noted to be dried blood concretion likely from NG trauma. No active bleeding site is seen. Due to his level f alertness, already NG tube is in placed, PO trial was not done at this time. Transferred out ICU last night. He is non on tele. Issues: multiple wounds, s.p balaji/nasal/pharyngeal bleeding with blood culture Gram positive cocci leukocytosis trending down from 20k-20k-16k BUN/Creatine trending down from 93/1.9-79/1.3-54/1.1 Temp: 98.1~98.7, Pulse: 62~72, BP: 105/67~120/48, SPO2 98~100% on 2 liter S: Oral cavity is better condition comparison to yesterday. The mucosa is severely erythema without active bleeding. Limited level of alertness for direct therapy. NG in placed O: 1. Laryngeal palpation to trigger spontaneous cough and swallow: Pt triggered cough with laryngeal palpation. Approximately 5~10 seconds after coughing, he triggered swallow. based on this observation, he presents with copious secretion in pharynx and larynx. He continued to have poor secretion management at laryngeal level at this time. NO PO trial was given due to poor secretion at the level of air way with low level of alertness. A: 1. Probable aspiration of his own secretion with poor ability to cough and swallow 2. Dysphagia P: 1. NPO for now 2. Observe his secretion, and level of alertness for PO readiness. DAILY ESTIMATED NEEDS: Needs based on Wound, underweight/ 55kg 30-35 kcals/kg 0708-2548 total kcals 1.25-2 g protein/kg 69-110 g total protein 25-30 mL/kg 1439-4536 total fluid mLs NUTRITION DIAGNOSIS: Increased kcal/prot needs R/T wound healing and underweight status as evidenced by pt admitted w/ wounds including DTI 2 coccyx and stage 1 @ lt ischium, pt @ 73% IBW w/ low BMI per guidelines, s/p NGT insertion, on NGT feeds. CURRENT TF:Jevity 1.2 @ 50ml/hr x 24 hrs ENTERAL NUTRITION RECOMMENDATIONS: Jevity 1.2 @ 60ml/hr x 24 hrs to provide 1440ml, 1728kcal, 80g prot, 1160ml free water * As medically appropriate, increase goal rate to 60ml/hr x 24 hrs to meet 100% est kcal/prot needs * HOB over 30 degrees/ without IVF, H2O flush of 100ml q 8hrs ADDITIONAL RECOMMENDATIONS: * Calibrated daily bedscale wt Per SNF: HT=70" * Wound healing: TF rec @ goal will provide 100% RDI add Vit C 250mg QD, ZnSO4 220mg QD x 10days, Davidson BID via NGT * Monitor BGs, need for NISS w/ TF * Monitor lytes, replete as needed- high risk for refeeding syndrome -> check f/up phos and mag (4) Severe sepsis Assessment & Plan: will likely need trach and peg. patient needs protected airway and nutrition full code no family and unable to consent medically necessary. will plan soon (5) Open upper arm wound (6) Hematuria Assessment & Plan: as per urology Aubrey Gutierrez Oct 24, 2020 12:43
--- NOTE | 2020-10-24 13:54 | NUR ---
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
[2020-10-24 16:13] VITALS: BP 110/72
--- NOTE | 2020-10-24 16:18 | NUR ---
*-*DISCHARGE PLANNED*-* PATIENT HAS BEEN ACCEPTED AND WILL BE DISCHARGED TO: [facility] P: [phone] FOR NURSE TO NURSE REPORT ROOM# 20.[facility] SET FOR WILL CALL S/W SALVATORE [email or web address]. NURSE WILL ACTIVATE UPON DISCHARGE .
--- NOTE | 2020-10-24 16:42 | Infectious Diseases Prog Note ---
Assessment/Plan Assessment/Plan antibiotics : cefepime A 1. MRSA Pneumonia s/p rx COVID-19 test is negative. 2. Dementia. 3. Leukocytosis improving 4. respiratory failure s/p tracheostomy 5. allergic reaction to vancomycin resolved 6. gram negative UTI 7. renal failure P 1. continue cefepime 2. will follow up cultures Subjective ROS Limited/Unobtainable: Yes Allergies: Coded Allergies: VANCOMYCIN (Verified Allergy, Severe, hive, 09/28/20) Objective Last 24 Hour Vital Signs Date Time Temp Pulse Resp B/P (MAP) Pulse Ox O2 Delivery O2 Flow Rate FiO2 10/24/20 16:13 97.7 101 15 110/72 (85) 98 10/24/20 16:09 Mechanical Ventilator 10/24/20 16:09 40 10/24/20 16:00 95 10/24/20 13:19 99 35 40 10/24/20 12:00 Mechanical Ventilator 10/24/20 12:00 40 10/24/20 12:00 98.2 107 24 110/72 (85) 100 10/24/20 12:00 105 10/24/20 09:30 100 24 112/73 97 10/24/20 08:58 102 24 114/77 100 10/24/20 08:00 40 10/24/20 08:00 Mechanical Ventilator 10/24/20 08:00 98.8 102 24 114/77 (89) 100 10/24/20 07:38 105 10/24/20 07:15 103 33 40 10/24/20 04:00 Mechanical Ventilator 10/24/20 04:00 108 10/24/20 04:00 98.1 105 34 102/67 (79) 98 10/24/20 04:00 40 10/24/20 03:30 109 20 40 10/24/20 00:00 100.0 128 42 141/71 (94) 97 10/24/20 00:00 Mechanical Ventilator 10/23/20 23:15 129 43 40 10/23/20 20:00 107 10/23/20 20:00 99.1 121 32 110/70 (83) 92 10/23/20 20:00 40 10/23/20 20:00 Mechanical Ventilator 10/23/20 19:46 108 30 40 Height (Feet): 6 Height (Inches): 1.00 Weight (Pounds): 148 HEENT: status post trach Respiratory/Chest: lungs clear Cardiovascular: normal rate, regular rhythm, no gallop/murmur Abdomen: soft, non tender, other - GT Extremities: no edema Laboratory Tests Test 10/24/20 04:25 White Blood Count 13.1 K/UL (4.8-10.8) H Red Blood Count 2.59 M/UL (4.70-6.10) L Hemoglobin 7.7 G/DL (14.2-18.0) L Hematocrit 23.7 % (42.0-52.0) L Mean Corpuscular Volume 92 FL (80-99) Mean Corpuscular Hemoglobin 29.6 PG (27.0-31.0) Mean Corpuscular Hemoglobin Concent 32.3 G/DL (32.0-36.0) Red Cell Distribution Width 14.2 % (11.6-14.8) Platelet Count 172 K/UL (150-450) Mean Platelet Volume 7.5 FL (6.5-10.1) Neutrophils (%) (Auto) % (45.0-75.0) Lymphocytes (%) (Auto) % (20.0-45.0) Monocytes (%) (Auto) % (1.0-10.0) Eosinophils (%) (Auto) % (0.0-3.0) Basophils (%) (Auto) % (0.0-2.0) Sodium Level 135 MMOL/L (136-145) L Potassium Level 5.1 MMOL/L (3.5-5.1) Chloride Level 102 MMOL/L (98-107) Carbon Dioxide Level 31 MMOL/L (21-32) Anion Gap 2 mmol/L (5-15) L Blood Urea Nitrogen 82 mg/dL (7-18) H Creatinine 2.9 MG/DL (0.55-1.30) H Estimat Glomerular Filtration Rate 21.7 mL/min (>60) Glucose Level 129 MG/DL (74-106) H Calcium Level 8.2 MG/DL (8.5-10.1) L Total Bilirubin 0.4 MG/DL (0.2-1.0) Aspartate Amino Transf (AST/SGOT) 22 U/L (15-37) Alanine Aminotransferase (ALT/SGPT) 17 U/L (12-78) Alkaline Phosphatase 64 U/L (46-116) Total Protein 7.5 G/DL (6.4-8.2) Albumin 1.6 G/DL (3.4-5.0) L Globulin 5.9 g/dL Albumin/Globulin Ratio 0.3 (1.0-2.7) L Current Medications Medications (Trade) Dose Ordered Sig/Aleksander Route PRN Reason Start Time Stop Time Status Last Admin Dose Admin Acetaminophen (Tylenol) 650 mg Q6H PRN NG pain 1-6 10/08/20 15:30 11/07/20 15:14 10/22/20 22:36 Acetaminophen (Tylenol) 650 mg Q6H PRN ORAL Temp >100.5 10/21/20 17:30 11/20/20 17:29 10/21/20 17:40 Ascorbic Acid (Vitamin C) 250 mg DAILY NG 10/18/20 09:00 11/09/20 08:59 10/24/20 08:58 Bisacodyl (Dulcolax) 10 mg DAILYPRN PRN RECTAL Constipation 10/11/20 12:00 01/09/21 11:59 10/20/20 21:28 Cefepime HCl 1 gm/ Dextrose 55 ml @ 110 mls/hr Q24H IVPB 10/25/20 05:00 11/01/20 04:59 Diphenhydramine HCl (Benadryl) 25 mg Q6H PRN IVP Itching 09/27/20 12:15 10/27/20 12:14 10/23/20 16:08 Diphenoxylate HCl/ Atropine (Lomotil) 2.5 mg Q4H PRN ORAL Diarrhea 10/19/20 12:15 11/18/20 08:14 Docusate Sodium (Colace) 100 mg TWICE A DAY NG 10/11/20 18:00 11/10/20 17:59 10/24/20 08:58 Famotidine (Pepcid) 20 mg BID GT 10/04/20 09:00 01/02/21 08:59 10/24/20 08:58 Finasteride (Proscar) 5 mg DAILY ORAL 09/13/20 09:00 12/12/20 08:59 10/24/20 08:58 Lorazepam (Ativan) 1 mg Q4H PRN ORAL For Anxiety 10/22/20 00:15 10/29/20 00:14 10/24/20 08:58 Multivitamins (Multivitamins W/ Minerals 15ml Liquid) 15 ml DAILY NG 09/26/20 09:00 10/26/20 08:59 10/24/20 08:58 Sodium Chloride 1,000 ml @ 75 mls/hr [id number] IV 10/24/20 10:30 11/23/20 10:29 10/24/20 10:30 Spironolactone (Aldactone) 25 mg DAILY GT 10/05/20 09:00 11/04/20 08:59 10/24/20 08:58 Tamsulosin HCl (Flomax) 0.4 mg BEDTIME ORAL 10/11/20 21:00 11/10/20 20:59 10/23/20 20:19 Valproic Acid (Depakene) 1,000 mg BEDTIME GT 10/06/20 21:00 10/31/20 20:59 10/23/20 20:20 Zinc Sulfate (Zinc Sulfate) 220 mg DAILY GT 10/06/20 09:00 01/04/21 08:59 10/24/20 08:58 Martha Collins MD Oct 24, 2020 16:42
--- NOTE | 2020-10-24 19:10 | NUR ---
NURSE NOTES: Received report from evelyn Quigley RN. Pt is awake, lying in bed, non-verbal but communicates via facial expression. Trach to vent tolerating the following setting: S 8, AC 12, TV 450, FiO2 40%, PEEP 7 saturating 98%. G-tube is intact and patent running Jevity 1.2 @ 60cc/hr. Skin issues noted and dressing intact. Recent labs and medication reviewed. Bed is locked and in lowest position, bed alarm on, call light is with the pt. Fall and aspiration precautions in place. [facility] Report given by Dann to receiving RN. Will continue to monitor pt. Will continue with the plan of care.
[2020-10-24 20:00] VITALS: BP 122/80
--- NOTE | 2020-10-24 20:33 | Cardiology Progress Note ---
Subjective DATE OF SERVICE: Oct 24, 2020 Remains on vent via trach, now requiring 40% oxygen delivery. Fluid balance negative on current diuretic dose; renal function worsening. BP remains controlled. Monitor: sinus with rare ectopy. (10/15) 7.47/42/75 CXR (10/15) improved infiltrates with small left eff'n Objective Last 24 Hour Vital Signs Date Time Temp Pulse Resp B/P (MAP) Pulse Ox O2 Delivery O2 Flow Rate FiO2 10/24/20 19:39 96 27 40 10/24/20 16:13 97.7 101 15 110/72 (85) 98 10/24/20 16:09 Mechanical Ventilator 10/24/20 16:09 40 10/24/20 16:00 95 10/24/20 13:19 99 35 40 10/24/20 12:00 Mechanical Ventilator 10/24/20 12:00 40 10/24/20 12:00 98.2 107 24 110/72 (85) 100 10/24/20 12:00 105 10/24/20 09:30 100 24 112/73 97 10/24/20 08:58 102 24 114/77 100 10/24/20 08:00 40 10/24/20 08:00 Mechanical Ventilator 10/24/20 08:00 98.8 102 24 114/77 (89) 100 10/24/20 07:38 105 10/24/20 07:15 103 33 40 10/24/20 04:00 Mechanical Ventilator 10/24/20 04:00 108 10/24/20 04:00 98.1 105 34 102/67 (79) 98 10/24/20 04:00 40 10/24/20 03:30 109 20 40 10/24/20 00:00 100.0 128 42 141/71 (94) 97 10/24/20 00:00 Mechanical Ventilator 10/23/20 23:15 129 43 40 ROS: no change from my evaluation of 09/10/20. HEENT: Mechanically Ventilated, Thin Trach secretions RHYTHM: NSR, ST LUNGS: bilat. rhonchi and rales, trach site clean CARDIAC: normal rate, regular rhythm, normal S1 and S2, rapid rate ABDOMEN: normal bowel sounds, soft, G-Tube intact EXTREMITIES: trace edema Laboratory Tests Test 10/24/20 04:25 White Blood Count 13.1 K/UL (4.8-10.8) H Red Blood Count 2.59 M/UL (4.70-6.10) L Hemoglobin 7.7 G/DL (14.2-18.0) L Hematocrit 23.7 % (42.0-52.0) L Mean Corpuscular Volume 92 FL (80-99) Mean Corpuscular Hemoglobin 29.6 PG (27.0-31.0) Mean Corpuscular Hemoglobin Concent 32.3 G/DL (32.0-36.0) Red Cell Distribution Width 14.2 % (11.6-14.8) Platelet Count 172 K/UL (150-450) Mean Platelet Volume 7.5 FL (6.5-10.1) Neutrophils (%) (Auto) % (45.0-75.0) Lymphocytes (%) (Auto) % (20.0-45.0) Monocytes (%) (Auto) % (1.0-10.0) Eosinophils (%) (Auto) % (0.0-3.0) Basophils (%) (Auto) % (0.0-2.0) Sodium Level 135 MMOL/L (136-145) L Potassium Level 5.1 MMOL/L (3.5-5.1) Chloride Level 102 MMOL/L (98-107) Carbon Dioxide Level 31 MMOL/L (21-32) Anion Gap 2 mmol/L (5-15) L Blood Urea Nitrogen 82 mg/dL (7-18) H Creatinine 2.9 MG/DL (0.55-1.30) H Estimat Glomerular Filtration Rate 21.7 mL/min (>60) Glucose Level 129 MG/DL (74-106) H Calcium Level 8.2 MG/DL (8.5-10.1) L Total Bilirubin 0.4 MG/DL (0.2-1.0) Aspartate Amino Transf (AST/SGOT) 22 U/L (15-37) Alanine Aminotransferase (ALT/SGPT) 17 U/L (12-78) Alkaline Phosphatase 64 U/L (46-116) Total Protein 7.5 G/DL (6.4-8.2) Albumin 1.6 G/DL (3.4-5.0) L Globulin 5.9 g/dL Albumin/Globulin Ratio 0.3 (1.0-2.7) L Assessment/Plan Assessment/Plan Respiratory failure with hypoxia - s/p tracheostomy Sepsis Aspiration PNA Recurring shock - recovered Diarrhea Dehydration/hypernatremia corrected Acute myocardial ischemia Acute renal failure due to diuresis. HC assoc PNA UTI Transaminitis, acute CVA/dementia Paroxysmal sinus bradycardia and tachycardia Acute/chronic diastolic CHF now compensated; recent increase in BNP noted. Severe protein/calorie malnutrition with dysphagia; now s/p PEG Hypokalemia Vent support with trach care; wean down O2 as able. Antimicrobials per ID. ?reculture for fever Replace lytes as needed. DVT prophyl Cardiac monitoring O2 taper Hold diuretics; hydrate x 24hrs. Madi Rios MD Oct 24, 2020 20:33
--- NOTE | 2020-10-24 21:01 | NUR ---
NURSE NOTES: [facility]. Pt is in stable condition with the following vital signs: Bloob pressure 122/80, HR 92, O2 saturation 97%, temp 97.9. Trach to vent with the following setting: AC 12, TV 450, PmD203%, PEEP 7. G tube is intact and patent. Recent labs and medications endorsed. Endorsed plan of care.
[2020-10-24] MEDS ORDERED: NS 275ml ONE ×2 (21:34)
[2020-10-24] MEDS ORDERED: Tubing IV Secondary IV ONE (21:34)
--- NOTE | 2020-10-24 21:58 | General Progress Note ---
Subjective Allergies: Coded Allergies: VANCOMYCIN (Verified Allergy, Severe, hive, 09/28/20) Subjective calm tolerated TF non communicative d/w RN Objective Last 24 Hour Vital Signs Date Time Temp Pulse Resp B/P (MAP) Pulse Ox O2 Delivery O2 Flow Rate FiO2 10/24/20 20:00 Mechanical Ventilator 10/24/20 20:00 97.9 92 30 122/80 (94) 97 10/24/20 20:00 40 10/24/20 19:39 96 27 40 10/24/20 16:13 97.7 101 15 110/72 (85) 98 10/24/20 16:09 Mechanical Ventilator 10/24/20 16:09 40 10/24/20 16:00 95 10/24/20 13:19 99 35 40 10/24/20 12:00 Mechanical Ventilator 10/24/20 12:00 40 10/24/20 12:00 98.2 107 24 110/72 (85) 100 10/24/20 12:00 105 10/24/20 09:30 100 24 112/73 97 10/24/20 08:58 102 24 114/77 100 10/24/20 08:00 40 10/24/20 08:00 Mechanical Ventilator 10/24/20 08:00 98.8 102 24 114/77 (89) 100 10/24/20 07:38 105 10/24/20 07:15 103 33 40 10/24/20 04:00 Mechanical Ventilator 10/24/20 04:00 108 10/24/20 04:00 98.1 105 34 102/67 (79) 98 10/24/20 04:00 40 10/24/20 03:30 109 20 40 10/24/20 00:00 100.0 128 42 141/71 (94) 97 10/24/20 00:00 Mechanical Ventilator 10/23/20 23:15 129 43 40 Intake and Output 10/23/20 10/24/20 19:00 07:00 Intake Total 980 ml 820 ml Output Total 450 ml 400 ml Balance 530 ml 420 ml Free Water 260 ml 100 ml Tube Feeding 720 ml 720 ml Output Urine Total 450 ml 400 ml # Bowel Movements 1 Laboratory Tests 10/24/20 04:25: White Blood Count 13.1H, Red Blood Count 2.59L, Hemoglobin 7.7L, Hematocrit 23.7L, Mean Corpuscular Volume 92, Mean Corpuscular Hemoglobin 29.6, Mean Corpuscular Hemoglobin Concent 32.3, Red Cell Distribution Width 14.2, Platelet Count 172, Mean Platelet Volume 7.5, Neutrophils (%) (Auto) , Lymphocytes (%) (Auto) , Monocytes (%) (Auto) , Eosinophils (%) (Auto) , Basophils (%) (Auto) , Sodium Level 135L, Potassium Level 5.1, Chloride Level 102, Carbon Dioxide Level 31, Anion Gap 2L, Blood Urea Nitrogen 82H, Creatinine 2.9H, Estimat Glomerular Filtration Rate 21.7, Glucose Level 129H, Calcium Level 8.2L, Total Bilirubin 0.4, Aspartate Amino Transf (AST/SGOT) 22, Alanine Aminotransferase (ALT/SGPT) 17, Alkaline Phosphatase 64, Total Protein 7.5, Albumin 1.6L, Globulin 5.9, Albumin/Globulin Ratio 0.3L Height (Feet): 6 Height (Inches): 1.00 Weight (Pounds): 148 Objective Thin WM on vent/trach calm, awake Skin: no hematoma or ecchymosis HEENT NCAT supple, (+) trach coarse ronchi RR, slightly tachy abd soft flat ND, (+) GT no edema Assessment/Plan Status: stable Assessment/Plan: Assessment - resp failure - s/p PEG - anemia - OBS/Dementia - sepsis - diarrhea, C Diff (-) - Azotemia, resolved - CHF - malnutrition , low albumin - leukocytosis - hypernatremia Recommendations -Vent care / support - cards and pulm follow up - supportive care - abx - PPI - TF Deborah Cabrera MD Oct 24, 2020 21:58
[2020-10-25] MEDS ORDERED: Cefepime 1gm/D5W 55ml IVPB SCH ×2 (05:00)
--- NOTE | 2020-10-25 16:24 | Discharge Summary ---
Discharge Summary Discharge Summary _ DATE OF ADMISSION: 09/10/2020 DATE OF DISCHARGE: 10/24/2020 DISCHARGED BY: Dr. Layne REASON FOR ADMISSION: 70 years old male, resident of assisted facility, was sent for evaluation due to fevers and generalized weakness. Upon evaluation he was febrile , tachypneic and hypotensive . COVID-19 by PCR was negative. Laboratory work-up revealed significant leukocytosis with WBC 20.8 , stable hemoglobin and hematocrit. Lactic acid 2.1. Sodium 148, chloride 112. BUN 93, creatinine 1.9. Troponin negative .EKG revealed sinus rhythm , no acute ischemic changes. Chest x-ray revealed left basilar atelectasis and possible infiltrate. Urinalysis demonstrated findings , consistent with probable UTI. Septic work-up initiated , patient pancultured, received fluid bolus , started on empiric antibiotics and admitted for further management. CONSULTANTS: photographic laboratory technician Dr. Rios pulmonary Dr Villasenor ID specialist Dr. Collins GI specialist Dr. Cabrera team facilitator Dr. Valdivia Urology Dr. Brunson surgery [facility] COURSE: Patient admitted and started on hypotonic IV hydration and broad-spectrum antibiotic as per ID specialist recommendation. Supplemental oxygen provided and titrated to keep pulse oximetry above 92% . pulmonary toilet provided. Blood culture initially revealed Staph epidermidis. Urine culture was negative. Repeated blood culture 09/17 were negative. Sputum culture on 09/18 showed MRSA. Stool for C. difficile was negative Rapid Covid 19 by PCR was negative. Antibiotic regimen optimized as per ID specialist recommendation. Patient was followed-up with chest x-ray. Venous duplex bilateral lower extremity revealed no evidence of acute DVT. Supplemental oxygen provided and titrated to keep pulse oximetry above 92% provided. Aspiration precautions maintained. On 09/21 patient required emergency oral intubation due to respiratory distress. Ventilator support and pulmonary toilet provided . Patient was followed-up with a chest x-ray. Patient was unable to be weaned from the ventilator, and subsequently undergone tracheostomy placement on 09/27 Tracheostomy care provided . Pulmonary toilet was maintained. Subsequently patient undergone placement of G-tube on 10/01 Tube feeding formula with goal rate and protein supplements provided as per registered dental assistant recommednations with strict aspiration precautions. Antiemetic were on board as needed. GI prophylaxis provided. Bowel regimen instituted. Sputum culture on 10/09 showed Klebsiella and urine culture revealed Reena. Repeated urine culture 10/21 revealed Pseudomonas. Antibiotic regimen was further optimized as per ID specialist recommendation . Mild leukocytosis upon discharge, no fevers. Heavy Duty Custodian followed. Echocardiogram revealed preserved ejection fraction of 60 to 65%. Serial troponin were negative. Patient demonstrated recurrent hypotension, which resolved. DVT prophylaxis provided. Volumes and cardiorenal parameters were closely monitored. Spot diuresis provided. Patient developed acute renal failure, likely due to diuresis. Patient was provided with IV hydration . Diuresis was on hold, Urologist consulted for evaluation of gross hematuria . Rae catheter was irrigated, recommended furtehr irrigation as needed . Hemoglobin and hematocrit were closely monitored with goal to keep hemoglobin above 7. Patient required transfusion of 2 unit of packed red blood cells while in the hospital for hemoglobin 6.7. Flomax and Proscar added. Urologist recommended cystoscopy which can be done electively as outpatient after other medical issue will be resolved. Wound care for multiply pressure injury provided as per surgeon recommendation . Continue wound care at the facility. Placement was found and secured at the assisted facility. Patient was stable for transfer. FINAL DIAGNOSES: Severe sepsis Acute hypoxemic respiratory failure requiring intubation Failure to wean Status post tracheostomy placement 09/27 MRSA Pneumonia, status post treatment Aspiration pneumonia Pseudomonas UTI Acute on chronic encephalopathy Dysphagia, status post EGD with G-tube placement 10/01 Hypernatremia Acute renal failure Hypertension Dementia BPH Transaminitis Acute/chronic diastolic CHF Severe protein calorie malnutrition Hypotension -resolved Gross hematuria -resolved DISCHARGE MEDICATIONS: List of medication was sent to accepting facility. DISCHARGE INSTRUCTIONS: Patient was discharged to the assisted facility. Follow up with medical doctor at the facility. I have been assigned to dictate discharge summary for this account. I was not involved in the patient's management. Charity Carrasquillo NP Oct 25, 2020 16:24
--- NOTE | 2020-10-26 11:51 | Cardiology Report ---
APPROVED REPORT EKG Measurement Heart [id number] <Conclusion> Sinus tachycardia Otherwise normal ECG
== END 2020-10-24 21:35 | DRG 4 ==
LOC: EDBD 14:19 → EMR 14:55 → EDBEDREQ 16:58 → ICU 17:27 → EDBEDREQ 19:10 → EDBEDREQSVC 19:10 → EDBEDREQ 19:27 → 2E 09-11 23:27 → ICU 09-17 16:56 → 2W 09-19 08:53 → ICU 09-21 10:30 → 2W 09-29 17:34
PROC: 0BH17EZ Insertion of Endotracheal Airway into Trachea, Via Natural or Artificial Opening (ICD-10-PCS; principal; 2020-09-21)
PROC: 5A1955Z Respiratory Ventilation, Greater than 96 Consecutive Hours (ICD-10-PCS; principal; 2020-09-21)
PROC: 0B110F4 Bypass Trachea to Cutaneous with Tracheostomy Device, Open Approach (ICD-10-PCS; 2020-09-27)
PROC: 0DH63UZ Insertion of Feeding Device into Stomach, Percutaneous Approach (ICD-10-PCS; 2020-10-01)
DX: A41.9 Sepsis, unspecified organism (principal); R65.21 Severe sepsis with septic shock; E43 Unspecified severe protein-calorie malnutrition; J15.212 Pneumonia due to Methicillin resistant Staphylococcus aureus; J96.01 Acute respiratory failure with hypoxia; J69.0 Pneumonitis due to inhalation of food and vomit; I50.33 Acute on chronic diastolic (congestive) heart failure; N39.0 Urinary tract infection, site not specified; N17.9 Acute kidney failure, unspecified; E87.0 Hyperosmolality and hypernatremia; G93.49 Other encephalopathy; Z68.1 Body mass index [BMI] 19.9 or less, adult; J98.11 Atelectasis; Z99.11 Dependence on respirator [ventilator] status; L89.156 Pressure-induced deep tissue damage of sacral region; L89.221 Pressure ulcer of left hip, stage 1; F03.90 Unspecified dementia, unspecified severity, without behavioral disturbance, psychotic disturbance, mood disturbance, and anxiety; N40.1 Benign prostatic hyperplasia with lower urinary tract symptoms; R33.8 Other retention of urine; Z20.822 Contact with and (suspected) exposure to COVID-19; E86.1 Hypovolemia; R19.7 Diarrhea, unspecified; E87.6 Hypokalemia; E86.0 Dehydration
CPT/HCPCS: 36415; 71045; 74018; 80048; 80053; 80202; 81001; 81003; 82550; 82553; 82803; 83605; 83690; 83735; 83880; 84100; 84443; 84484; 85007; 85025; 85610; 85730; 86850; 86900; 86901; 86920; 87040; 87070; 87081; 87086; 87181; 87205; 87324; 93005; 93306; 93970; 94002; 94003; 94150; 94640; 94664; 96361; 96365; 96368; 99285; J7030; J7620; J8499; U0002